=== PATIENT | male | born 1955 | race Caucasian/White ===

== ENCOUNTER → 2016-10-23 | Outpatient (CLI) | payer BC ==
[~2016-10-23] MED LIST: CEPH-571 PO; INSDGI SC; INSDGIPEN SC; INSU-698 SC; LCTX PO; METF-384 PO; MOME50SP5; MRLP17 PO; MRLP17X PO; NVLGI/PEN SQ; NVLGIPEN SC; OXYC-57 PO; SENN-65 PO; SULF800T23 PO
[2016-10-23 17:39] LABS: BASO % 0.2 %; BASO ABS # 0.02 K/uL (0-0.2); COMPLETE YES; EOS % 0.6 %; HEMATOCRIT 39.5 % (42-52); IG% 0.6 %; LYMPH % 11.4 %; LYMPH ABS # 1.17 K/uL (1.2-3.4); MEAN CELL VOLUME 81.3 fL (80-100); MEAN CORPUSCULAR HGB CONC 35.7 g/dl (32-36); MEAN PLATELET VOLUME 9.7 fL (7.4-10.4); MONO % 10.6 %; NEUT % 76.6 %; PLATELET COUNT 230 K/uL (130-400); RED BLOOD COUNT 4.86 M/uL (4.7-6.1); WHITE BLOOD COUNT 10.25 K/uL (4.8-10.8)
[2016-10-23 18:15] LABS: ALB/GLOB RATIO 0.6 (0.9-2); ALKALINE PHOSPHATASE 142 U/L (45-117); ALT/SGPT 14 U/L (12-78); AMYLASE 17 U/L (25-115); AST/SGOT 6 U/L (15-37); BLOOD UREA NITROGEN 18 mg/dl (7-18); BUN/CREATININE RATIO 14.1 (10-20); CALCIUM 9.8 mg/dl (8.5-10.1); CARBON DIOXIDE 23 mmol/L (21-32); CHLORIDE 98 mmol/L (98-107); GLUCOSE 495 mg/dl (70-99); POTASSIUM 4.8 mmol/L (3.5-5.1); SODIUM 133 mmol/L (136-145); THYROID STIMULATING HORMONE 0.771 uIu/ml (0.300-4.500)
[2016-10-23 18:42] LABS: BETA-HYDROXYBUTYRATE 28.43 mg/dL (0.2-2.81)
[2016-10-23 18:46] LABS: LYME DISEASE AB IGM NEG (NEG)
[2016-10-23 18:49] LABS: LYME DISEASE AB IGG NEG (NEG)
== END | disposition home or self-care (01) ==
LOC: C.LABBFT 17:46
PROVIDERS: ATTEND Physician Assistant Medical
DX: R10.9 Unspecified abdominal pain (principal)

== ENCOUNTER 2016-10-27 11:58 | Inpatient (IN) | payer BC ==
[~2016-10-27] VITALS: Ht 175.3 cm; Wt 122.6 kg
[~2016-10-27 11:58] MED LIST changes: -CEPH-571 PO; -INSDGI SC; -INSU-698 SC; -LCTX PO; -MRLP17X PO; -NVLGI/PEN SQ; -OXYC-57 PO; -SULF800T23 PO
[2016-10-27] MEDS ORDERED: MoRPHine SULFATE 4 MG/ML 1 ML CARP\\VIAL IV STA (12:17)
[2016-10-27] MEDS ORDERED: SODIUM CHLORIDE 0.9% 1000ML 1,000 ML IV STA (12:17)
[2016-10-27] MEDS ORDERED: ONDANSETRON INJ 2 MG/ML 2 ML VIAL IV STA (12:17)
[2016-10-27] MEDS ORDERED: OPTIRAY 320 IV PRN (12:30)
[2016-10-27 12:47] LABS: BASO % 0.5 %; BASO ABS # 0.05 K/uL (0-0.2); COMPLETE YES; EOS % 0.7 %; IG% 1.6 %; LYMPH % 15.4 %; LYMPH ABS # 1.54 K/uL (1.2-3.4); MEAN CELL VOLUME 80.9 fL (80-100); MEAN CORPUSCULAR HEMOGLOBIN 28.7 pg (25-34); MEAN CORPUSCULAR HGB CONC 35.5 g/dl (32-36); MEAN PLATELET VOLUME 8.5 fL (7.4-10.4); MONO % 8.7 %; NEUT % 73.1 %; PLATELET COUNT 247 K/uL (130-400); RED BLOOD COUNT 5.19 M/uL (4.7-6.1); WHITE BLOOD COUNT 10.03 K/uL (4.8-10.8)
[2016-10-27 13:09] LABS: ALB/GLOB RATIO 0.5 (0.9-2); CALCIUM 9.7 mg/dl (8.5-10.1); CREATININE 0.85 mg/dl (0.60-1.40); POTASSIUM 4.1 mmol/L (3.5-5.1)
[2016-10-27 13:20] LABS: BETA-HYDROXYBUTYRATE 29.09 mg/dL (0.2-2.81)
--- NOTE | 2016-10-27 13:58 | DIAGNOSTIC IMAGING REPORT ---
CT PELVIS W/IV CONT ONLY (CT) CT DOSE: 1121.76 mGy.cm CLINICAL HISTORY: Right perirectal edema, erythema, induration. TECHNIQUE: The patient was scanned in a dynamic helical fashion during intravenous administration of 94 cc of Optiray 320 A dose lowering technique was utilized adhering to the principles of ALARA. COMPARISON STUDY: 08/08/2015 FINDINGS: The inferior aspect of the kidneys are unremarkable appearance. Minimally prominent para-aortic lymph nodes remain stable. There is no acute diverticulitis. There is trace periappendiceal fluid, but no evidence of periappendiceal dilatation. No bladder abnormalities are visualized. There is infiltration of the fat involving the right gluteal fold. There are no fluid collections to indicate a drainable abscess. No fistulous tracts are visualized. IMPRESSION: 1. Infiltration of the fat involving the right gluteal fold. No direct CT evidence of a perirectal abscess or fistula. Electronically signed by: John Terry M.D. 10/27/2016 1:57 PM Dictated Date/Time: 10/27/2016 1:52 PM
[2016-10-27] MEDS ORDERED: CEFTRIAXONE SOD INJ 1 GM ADDVIAL IV STA (14:19)
[2016-10-27] MEDS ORDERED: INSULIN HUMAN REGULAR SC STA (15:18)
[2016-10-27] MEDS ORDERED: NovoLIN-R INSULIN PER UNIT CHARGE ONE (15:42)
[2016-10-27 16:25] VITALS: O2SAT 98; BMI 39.9
[2016-10-27] MEDS ORDERED: GLUCOSE 10 TABS/TUBE PO PRN (18:00)
[2016-10-27] MEDS ORDERED: DEXTROSE 50% 50 ML SYR IV PRN (18:00)
[2016-10-27] MEDS ORDERED: ACETAMINOPHEN 325 MG TAB PO PRN (18:00)
[2016-10-27] MEDS ORDERED: POLYETHYLENE (MIRALAX) 17 GM PACK PO PRN (18:00)
[2016-10-27] MEDS ORDERED: GLUCAGON FOR INJ 1 MG VIAL SQ PRN (18:00)
[2016-10-27] MEDS ORDERED: GLUCOSE 40% GEL 15 GM TUBE PO PRN (18:00)
--- NOTE | 2016-10-27 18:03 | History and Physical ---
History & Physical Date & Time of Service: Oct 27, 2016 at 17:59 Chief Complaint: Boil On Butt/ Drainage Primary Care Physician: Ravi Villalta M.D. History of Present Illness Source: patient This patient is a 60-year-old male with a history of diabetes mellitus type 2, acute pancreatitis, noncompliance with medications, who presents with progressively worsening right buttocks pain and general malaise. Over the last 2 days, the right buttocks pain has increased dramatically and he has noticed drainage coming from the area. He was placed on Levaquin as an outpatient for a few days with no improvement. He is afebrile, no evidence of sepsis, lactate was normal at 1.2. He had significant hyperglycemia in the ER with a sugar of 355. He was found to have a large area of developing right perirectal abscess with surrounding cellulitis that had failed outpatient treatment. 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) Immunizations History of Influenza Vaccine: No History of Tetanus Vaccine?: Unknown History of Pneumococcal: No History of Hepatitis B Vaccine: No Multi-Drug Resistant Organisms History of MDRO: No Allergies Coded Allergies: Penicillins (Verified Allergy, Unknown, PER PT, RXN="ARMS WENT UP IN THE AIR AND WOULDN'T COME DOWN", 10/27/16) Home Medications Scheduled Insulin Glargine (Lantus Solostar), 35 UNIT SC HS Metformin Hcl (Glucophage), 1,000 MG PO BID Scheduled PRN Insulin Aspart (Novolog Flexpen), 1 UNIT SC DIRECTED PRN for blood sugar Review of Systems Constitutional: + chills, + sweats, No fever Eyes: No problem reported ENT: No problem reported Respiratory: No shortness of breath Cardiovascular: No chest pain Abdomen: + problem reported (buttocks pain as per HPI), No pain, No nausea, No vomiting, No diarrhea, No GI bleeding Musculoskeletal: No problem reported Genitourinary - Male: No hematuria, No problem reported Neurologic: No problem reported Psychiatric: No problem reported Endocrine: No problem reported Hematologic / Lymphatic: No problem reported Integumentary: No problem reported Allergic / Immunologic: No problem reported Physical Exam Vital Signs Date Time Temp Pulse Resp B/P (MAP) Pulse Ox O2 Delivery O2 Flow Rate FiO2 10/27/16 16:25 98 Room Air 10/27/16 15:29 61 20 118/64 98 Room Air 10/27/16 14:10 66 20 134/70 98 Room Air 10/27/16 12:51 98 Room Air 10/27/16 12:01 36.9 82 18 137/77 96 Room Air General Appearance: no apparent distress, + obese Head: normocephalic, atraumatic Eyes: normal inspection, EOMI, sclerae normal ENT: hearing grossly normal, pharynx normal Neck: trachea midline Respiratory/Chest: lungs clear, normal breath sounds, no respiratory distress, no accessory muscle use Cardiovascular: regular rate, rhythm, no edema, no gallop, no murmur, normal peripheral pulses Abdomen/GI: normal bowel sounds, non tender, soft, no organomegaly (and morbidly obese), + pertinent finding (right medial buttocks with very large area of erythema, induration that extends down into perirectal region, with central fluctuence and purulent drainage centrally, entire area approximately 20 cm) Back: normal inspection Extremities/Musculoskelatal: normal inspection, no calf tenderness, no pedal edema Neurologic/Psych: alert, normal mood/affect, oriented x 3 Skin: warm/dry, + pertinent finding (buttocks as above) Diagnostics Laboratory Results Results Past 24 Hours Test 10/27/16 12:25 10/27/16 12:40 Range/Units White Blood Count 10.03 4.8-10.8 K/uL Red Blood Count 5.19 4.7-6.1 M/uL Hemoglobin 14.9 14.0-18.0 g/dL Hematocrit 42.0 42-52 % Mean Corpuscular Volume 80.9 80-100 fL Mean Corpuscular Hemoglobin 28.7 25-34 pg Mean Corpuscular Hemoglobin Concent 35.5 32-36 g/dl Platelet Count 247 130-400 K/uL Mean Platelet Volume 8.5 7.4-10.4 fL Neutrophils (%) (Auto) 73.1 % Lymphocytes (%) (Auto) 15.4 % Monocytes (%) (Auto) 8.7 % Eosinophils (%) (Auto) 0.7 % Basophils (%) (Auto) 0.5 % Neutrophils # (Auto) 7.34 1.4-6.5 K/uL Lymphocytes # (Auto) 1.54 1.2-3.4 K/uL Monocytes # (Auto) 0.87 0.11-0.59 K/uL Eosinophils # (Auto) 0.07 0-0.5 K/uL Basophils # (Auto) 0.05 0-0.2 K/uL RDW Standard Deviation 36.0 36.4-46.3 fL RDW Coefficient of Variation 12.2 11.5-14.5 % Immature Granulocyte % (Auto) 1.6 % Immature Granulocyte # (Auto) 0.16 0.00-0.02 K/uL Sodium Level 135 136-145 mmol/L Potassium Level 4.1 3.5-5.1 mmol/L Chloride Level 97 98-107 mmol/L Carbon Dioxide Level 27 21-32 mmol/L Anion Gap 11.0 3-11 mmol/L Blood Urea Nitrogen 14 7-18 mg/dl Creatinine 0.85 0.60-1.40 mg/dl Est Creatinine Clear Calc Drug Dose 119.6 ml/min Estimated GFR () 109.8 Estimated GFR (Non- 94.7 BUN/Creatinine Ratio 17.0 10-20 Random Glucose 355 70-99 mg/dl Calcium Level 9.7 8.5-10.1 mg/dl Total Bilirubin 0.5 0.2-1 mg/dl Aspartate Amino Transf (AST/SGOT) 8 15-37 U/L Alanine Aminotransferase (ALT/SGPT) 14 12-78 U/L Alkaline Phosphatase 147 45-117 U/L Total Protein 7.4 6.4-8.2 gm/dl Albumin 2.6 3.4-5.0 gm/dl Globulin 4.8 2.5-4.0 gm/dl Albumin/Globulin Ratio 0.5 0.9-2 Beta-Hydroxybutyric Acid 29.09 0.2-2.81 mg/dL Lactic Acid Level 1.2 0.4-2.0 mmol/L Microbiology Results 10/27/16 Blood Culture, Received Pending 10/27/16 Blood Culture, Received Pending 10/27/16 Gram Stain, Received Pending 10/27/16 Wound Culture, Received Pending Diagnostic Radiology CT PELVIS W/IV CONT ONLY (CT) CT DOSE: 1121.76 mGy.cm CLINICAL HISTORY: Right perirectal edema, erythema, induration. TECHNIQUE: The patient was scanned in a dynamic helical fashion during intravenous administration of 94 cc of Optiray 320 A dose lowering technique was utilized adhering to the principles of ALARA. COMPARISON STUDY: 08/08/2015 FINDINGS: The inferior aspect of the kidneys are unremarkable appearance. Minimally prominent para-aortic lymph nodes remain stable. There is no acute diverticulitis. There is trace periappendiceal fluid, but no evidence of periappendiceal dilatation. No bladder abnormalities are visualized. There is infiltration of the fat involving the right gluteal fold. There are no fluid collections to indicate a drainable abscess. No fistulous tracts are visualized. IMPRESSION: 1. Infiltration of the fat involving the right gluteal fold. No direct CT evidence of a perirectal abscess or fistula. Impression Assessment and Plan This patient is a 60-year-old male with a history of diabetes mellitus type 2, acute pancreatitis, noncompliance with medications, who presents with progressively worsening right buttocks pain and general malaise. Over the last 2 days, the right buttocks pain has increased dramatically and he has noticed drainage coming from the area. He was placed on Levaquin as an outpatient for a few days with no improvement. He is afebrile, no evidence of sepsis, lactate was normal at 1.2. He had significant hyperglycemia in the ER with a sugar of 355. He was found to have a large area of developing right perirectal abscess with surrounding cellulitis that had failed outpatient treatment. Right perirectal abscess and cellulitis-failed outpatient treatment. He is an uncontrolled diabetic at high risk for infection. -Started IV Rocephin and vancomycin for broad-spectrum coverage -Needs incision and drainage-I discussed the case with surgery Dr. Caruso on the phone who will perform procedure tomorrow -Nothing by mouth after midnight -Warm sitz baths 3 times a day -Morphine when necessary for pain control -Follow blood cultures and wound culture Diabetes mellitus type 2-with hyperglycemia. Admittedly noncompliant at home and states that his blood sugar is usually in the 300s to 400s. He does not like needles. -Diabetic education consultation placed-discussed the importance of controlling his blood sugars and he understands -Continue his home dose of Lantus 35 units daily -NovoLog sliding scale -Diabetic diet -Holding his metformin while inpatient Elevated alkaline phosphatase-has known fatty liver seen on CT scan in the past -Needs weight loss and diabetic control -Follow LFTs as an outpatient Prophylaxis-SCDs only given upcoming procedure Disposition-full code Level of Care Med/Surg Advanced Directives Existing Living Will: No Existing Power of Installer Molding And Trim: No Resuscitation Status FULL RESUSCITATION VTE Prophylaxis VTE Risk Assessment Done? Y/N: Yes Risk Level: Low Given or contraindicated: SCD's Additional Copies To Ravi Villalta M.D.
[2016-10-27] MEDS ORDERED: VANCOMYCIN INJ 1,000 MG in SODIUM CHLORIDE 0.9% 250ML 250 ML IV ONE (18:04)
[2016-10-27] MEDS ORDERED: VANCOMYCIN 1GM/270ML NSS ONE (18:21)
[2016-10-27 18:30] VITALS: BP 122/77; PULSE 71; TEMP 36.9; O2SAT 99
[2016-10-27] MEDS ORDERED: VANCOMYCIN CONSULT ACTIVE PRN (19:00)
[2016-10-27] MEDS ORDERED: VANCOMYCIN INJ 2,800 MG in SODIUM CHLORIDE 0.9% 500ML 500 ML IV ONE (19:30)
--- NOTE | 2016-10-27 20:00 | Surgery Consultation ---
Consultation Date of Consultation: Oct 27, 2016. Attending Physician: Shanika Carson MD Reason for Consultation: mendel-rectal abcess History of Present Illness pt with a 1 week hx of rectal pain worsening over 5-7 days. much worse today with some drainage. Past Medical/Surgical History Medical Problems: (1) Body Mass Index 40 And Over, Adult Status: Chronic (2) Diabetes Status: Chronic (3) Esophageal Reflux Status: Chronic (4) Hyperlipidemia Nec/Nos Status: Chronic (5) Hypertension Nos Status: Chronic (6) Obstructive Sleep Apnea (Adult) (Pediatric) Status: Chronic Social History Smoking Status: Former Smoker Drug Use: none Marital Status: Occupation Status: employed Allergies Coded Allergies: Penicillins (Verified Allergy, Unknown, PER PT, RXN="ARMS WENT UP IN THE AIR AND WOULDN'T COME DOWN", 10/27/16) Home Medications Scheduled Insulin Glargine (Lantus Solostar), 35 UNIT SC HS Metformin Hcl (Glucophage), 1,000 MG PO BID Scheduled PRN Insulin Aspart (Novolog Flexpen), 1 UNIT SC DIRECTED PRN for blood sugar Current Inpatient Medications Current Inpatient Medications Medications (Trade) Dose Ordered Sig/Nikhil Route Start Time Stop Time Status Last Admin Dose Admin Ioversol (Optiray 320) 125 ml UD PRN IV 10/27/16 12:30 10/31/16 12:29 Acetaminophen (Tylenol Tab) 650 mg Q4H PRN PO 10/27/16 18:00 11/26/16 17:59 Polyethylene (Miralax Powder Packet) 17 gm DAILY PRN PO 10/27/16 18:00 11/26/16 17:59 Insulin Glargine (Lantus Solostar Pen) 35 units QPM SC 10/27/16 21:00 11/26/16 20:59 Insulin Aspart (novoLOG ASPART) SLIDING SCALE If C... ACHS SC 10/27/16 21:00 11/26/16 20:59 Glucose (Glucose 40% Gel) 15-30 GRAMS 15 GRAMS... UD PRN PO 10/27/16 18:00 11/26/16 17:59 Glucose (Glucose Chew Tab) 4-8 Tablets 4 Tabl... UD PRN PO 10/27/16 18:00 11/26/16 17:59 Dextrose (Dextrose 50% 50ML Syringe) 25-50ML OF 50% DW IV FOR... UD PRN IV 10/27/16 18:00 11/26/16 17:59 Glucagon (Glucagon Inj) 1 mg UD PRN SQ 10/27/16 18:00 11/26/16 17:59 Morphine Sulfate (MoRPHine SULFATE INJ) 4 mg Q4H PRN IV 10/27/16 18:00 11/10/16 17:59 Sodium Chloride 1,000 ml @ 75 mls/hr [id number] IV 10/27/16 23:00 11/26/16 22:59 Ceftriaxone Sodium 1 gm/ Dextrose 50 ml @ 100 mls/hr Q24H IV 10/28/16 16:00 11/06/16 15:59 Vancomycin HCl (Consult) 1 ea UD PRN N/A 10/27/16 19:00 11/26/16 18:59 Vancomycin HCl 2800 mg/Sodium Chloride 556 ml @ 200 mls/hr NOW ONCE IV 10/27/16 19:30 10/27/16 22:16 10/27/16 19:18 200 MLS/HR Vancomycin HCl 1750 mg/Sodium Chloride 535 ml @ 200 mls/hr Q12H IV 10/28/16 06:00 11/06/16 17:59 Review of Systems Constitutional: + fever, + chills Abdomen: + problem reported (rectal pain/drainage) Physical Exam Date Time Temp Pulse Resp B/P (MAP) Pulse Ox O2 Delivery O2 Flow Rate FiO2 10/27/16 18:30 36.9 71 18 122/77 (92) 99 Room Air 10/27/16 18:28 148/94 10/27/16 16:25 98 Room Air 10/27/16 15:29 61 20 118/64 98 Room Air 10/27/16 14:10 66 20 134/70 98 Room Air 10/27/16 12:51 98 Room Air 10/27/16 12:01 36.9 82 18 137/77 96 Room Air General Appearance: no apparent distress Head: normocephalic, atraumatic Eyes: EOMI ENT: hearing grossly normal Neck: supple Respiratory/Chest: no respiratory distress, no accessory muscle use Abdomen/GI: non tender, soft, + pertinent finding (large area of induration on right buttock with blanching c/w developing abcess. very tender) Neurologic/Psych: alert, oriented x 3 Laboratory Results Last 24 Hours Test 10/27/16 12:25 10/27/16 12:40 White Blood Count 10.03 K/uL Red Blood Count 5.19 M/uL Hemoglobin 14.9 g/dL Hematocrit 42.0 % Mean Corpuscular Volume 80.9 fL Mean Corpuscular Hemoglobin 28.7 pg Mean Corpuscular Hemoglobin Concent 35.5 g/dl Platelet Count 247 K/uL Mean Platelet Volume 8.5 fL Neutrophils (%) (Auto) 73.1 % Lymphocytes (%) (Auto) 15.4 % Monocytes (%) (Auto) 8.7 % Eosinophils (%) (Auto) 0.7 % Basophils (%) (Auto) 0.5 % Neutrophils # (Auto) 7.34 K/uL Lymphocytes # (Auto) 1.54 K/uL Monocytes # (Auto) 0.87 K/uL Eosinophils # (Auto) 0.07 K/uL Basophils # (Auto) 0.05 K/uL RDW Standard Deviation 36.0 fL RDW Coefficient of Variation 12.2 % Immature Granulocyte % (Auto) 1.6 % Immature Granulocyte # (Auto) 0.16 K/uL Sodium Level 135 mmol/L Potassium Level 4.1 mmol/L Chloride Level 97 mmol/L Carbon Dioxide Level 27 mmol/L Anion Gap 11.0 mmol/L Blood Urea Nitrogen 14 mg/dl Creatinine 0.85 mg/dl Est Creatinine Clear Calc Drug Dose 119.6 ml/min Estimated GFR () 109.8 Estimated GFR (Non- 94.7 BUN/Creatinine Ratio 17.0 Random Glucose 355 mg/dl Calcium Level 9.7 mg/dl Total Bilirubin 0.5 mg/dl Aspartate Amino Transf (AST/SGOT) 8 U/L Alanine Aminotransferase (ALT/SGPT) 14 U/L Alkaline Phosphatase 147 U/L Total Protein 7.4 gm/dl Albumin 2.6 gm/dl Globulin 4.8 gm/dl Albumin/Globulin Ratio 0.5 Beta-Hydroxybutyric Acid 29.09 mg/dL Hepatitis C Antibody Screen NEG Lactic Acid Level 1.2 mmol/L Assessment & Plan large mendel-rectal abcess in uncontrolled diabetic. the actual fluid abcess is pretty early in the process. will plan I and D with sedation tomorrow. discussed risks continue IV antibiotics diabetic education
[2016-10-27] MEDS ORDERED: INSULIN ASPART 100 UNITS/ML 3 ML PEN SC SCH (21:00)
[2016-10-27] MEDS ORDERED: VANCOMYCIN INJ 1,000 MG in SODIUM CHLORIDE 0.9% 250ML 250 ML IV SCH (21:00)
--- NOTE | 2016-10-27 21:13 | Pharmacy Progress Note ---
Pharmacy Abx Initial Consult Date of Service Oct 27, 2016. Pharmacy Dosing Scope Date of Consult: 10/27/16 Consultation requested by: Dr. Carson Pharmacy is consulted to initiate Vancomycin IV dosing therapy in an obese patient (BMI greater than 35kg/m2, BMI= 40kg/m2) for cellulitis, order appropriate labs and adjust drug dose/frequency. Subjective The patient is a 60 year old male admitted on Oct 27, 2016 at 17:56. Objective Height (Feet): 5 Height (Inches): 9.00 Weight (Kilograms): 122.600 Vital Signs (Past 12Hrs) Vital Signs Past 12 Hours Date Time Temp Pulse Resp B/P (MAP) Pulse Ox O2 Delivery O2 Flow Rate FiO2 10/27/16 18:30 36.9 71 18 122/77 (92) 99 Room Air 10/27/16 18:28 148/94 10/27/16 16:25 98 Room Air 10/27/16 15:29 61 20 118/64 98 Room Air 10/27/16 14:10 66 20 134/70 98 Room Air 10/27/16 12:51 98 Room Air 10/27/16 12:01 36.9 82 18 137/77 96 Room Air Lab Results (24Hrs) Laboratory Tests (24 Hours) Test 10/27/16 12:25 10/27/16 12:40 White Blood Count 10.03 K/uL (4.8-10.8) Red Blood Count 5.19 M/uL (4.7-6.1) Hemoglobin 14.9 g/dL (14.0-18.0) Hematocrit 42.0 % (42-52) Mean Corpuscular Volume 80.9 fL (80-100) Mean Corpuscular Hemoglobin 28.7 pg (25-34) Mean Corpuscular Hemoglobin Concent 35.5 g/dl (32-36) Platelet Count 247 K/uL (130-400) Mean Platelet Volume 8.5 fL (7.4-10.4) Neutrophils (%) (Auto) 73.1 % Lymphocytes (%) (Auto) 15.4 % Monocytes (%) (Auto) 8.7 % Eosinophils (%) (Auto) 0.7 % Basophils (%) (Auto) 0.5 % Neutrophils # (Auto) 7.34 K/uL (1.4-6.5) H Lymphocytes # (Auto) 1.54 K/uL (1.2-3.4) Monocytes # (Auto) 0.87 K/uL (0.11-0.59) H Eosinophils # (Auto) 0.07 K/uL (0-0.5) Basophils # (Auto) 0.05 K/uL (0-0.2) Lactic Acid Level 1.2 mmol/L (0.4-2.0) Micro Results Date/Time Source Procedure Growth Status 10/27/16 12:35 Blood Blood Culture Pending Received 10/27/16 12:25 Blood Blood Culture Pending Received 10/27/16 15:15 Drainage - Surface Buttock Right Gram Stain Pending Received 10/27/16 15:15 Drainage - Surface Buttock Right Wound Culture Pending Received Assessment & Plan Assessment 60 year old obese (BMI greater than 35kg/m2, BMI= 40kg/m2) male with type II diabetes Plan Pharmacy has been consulted for treatment of cellulitis Vancomycin IV * Loading dose: 2800 mg (23 mg/kg) * Maintenance dose: 1750 mg IV (14 mg/kg) every 12 hours * Goal trough level for cellulitis : ~15 mcg/mL * Trough level ordered for 10/29/16 ~30 minutes before the 1800 dose * A less than traditional dose has been selected due to likelihood of drug accumulation in obese patient. Pharmacy will continue to follow and will adjust dose/frequency as necessary. Thank you.
--- NOTE | 2016-10-27 21:26 | EMERGENCY ROOM VISIT NOTE ---
History First contact with patient: 12:10 Chief Complaint: WOUND INFECTION Stated Complaint: PERIRECTAL ABSCESS Nursing Triage Summary: abcess on buttocks x1 week placed on abx on Friday, not getting better History of Present Illness The patient is a 60 year old male who presents to the Emergency Room via private vehicle accompanied by female with complaints of "boil on butt/drainage ". The patient states that approximately a week ago, he began with a raised region of the buttock that he describes as a boil. He states it is been worsening, and was seen by his family doctor Friday which prescribed Levaquin. He has been taking this as prescribed. He states that the pain is worsened as well as the swelling and drainage began 2 days ago. He denies any fevers, chills. His tetanus is up-to-date. He states that he has had trouble urinating over the past day. Review of Systems A complete 10-point Review of Systems was discussed with the patient, with pertinent positives and negatives listed in the History of Present Illness. All remaining Review of Systems questions can be considered negative unless otherwise specified. Past Medical/Surgical History Medical Problems: (1) Body Mass Index 40 And Over, Adult (2) Cellulitis (3) Diabetes (4) Diabetic ulcer of left foot (5) Diabetic ulcer of left foot (6) Esophageal Reflux (7) Hyperlipidemia Nec/Nos (8) Hypertension Nos (9) Obstructive Sleep Apnea (Adult) (Pediatric) (10) Perirectal abscess Surgical Problems: (1) Hx of cholecystectomy Family History Diabetes, cancer. Social History Smoking Status: Former Smoker Alcohol Use: other Drug Use: none Marital Status: Occupation Status: employed Patient is currently employed. Denies alcohol or tobacco use. Current/Historical Medications Scheduled Insulin Glargine (Lantus Solostar), 35 UNIT SC HS Metformin Hcl (Glucophage), 1,000 MG PO BID Scheduled PRN Insulin Aspart (Novolog Flexpen), 1 UNIT SC DIRECTED PRN for blood sugar Physical Exam Vital Signs Date Time Temp Pulse Resp B/P (MAP) Pulse Ox O2 Delivery O2 Flow Rate FiO2 10/27/16 16:25 98 Room Air 10/27/16 15:29 61 20 118/64 98 Room Air 10/27/16 14:10 66 20 134/70 98 Room Air 10/27/16 12:51 98 Room Air 10/27/16 12:01 36.9 82 18 137/77 96 Room Air Pain Rating (0-10): 3.0 Physical Exam VITAL SIGNS - Vital signs and nursing notes were reviewed. Patient is afebrile , blood pressure 137/77, non-tachycardic and is saturating well on room air at 96%. GENERAL -60-year-old male appearing his stated age who is in no acute distress. Communicates well with provider and answers questions appropriately. SKIN - overlying the right gluteal fold close to the rectum, there is a large erythematous, indurated and tender region with slight purulent drainage. No evidence of fluctuant drainable abscess. HEAD - NC/AT. EYES - Sclera anicteric. Palpebral conjunctiva pink and moist with no injection noted. LUNGS - Chest wall symmetric without accessory muscle use, intercostals retractions, or central cyanosis. Normal vesicular breath sounds CTA B/L. No wheezes, rales, or rhonchi appreciated. CARDIAC - RRR with S1/S2. No murmur, rubs, or gallops appreciated. Medical Decision & Procedures ER Provider Diagnostic Interpretation: CT PELVIS W/IV CONT ONLY (CT) CT DOSE: 1121.76 mGy.cm CLINICAL HISTORY: Right perirectal edema, erythema, induration. TECHNIQUE: The patient was scanned in a dynamic helical fashion during intravenous administration of 94 cc of Optiray 320 A dose lowering technique was utilized adhering to the principles of ALARA. COMPARISON STUDY: 08/08/2015 FINDINGS: The inferior aspect of the kidneys are unremarkable appearance. Minimally prominent para-aortic lymph nodes remain stable. There is no acute diverticulitis. There is trace periappendiceal fluid, but no evidence of periappendiceal dilatation. No bladder abnormalities are visualized. There is infiltration of the fat involving the right gluteal fold. There are no fluid collections to indicate a drainable abscess. No fistulous tracts are visualized. IMPRESSION: 1. Infiltration of the fat involving the right gluteal fold. No direct CT evidence of a perirectal abscess or fistula. Electronically signed by: John Terry M.D. 10/27/2016 1:57 PM Dictated Date/Time: 10/27/2016 1:52 PM Laboratory Results 10/27/16 12:25 Red Blood Count 5.19, Mean Corpuscular Volume 80.9, Mean Corpuscular Hemoglobin 28.7, Mean Corpuscular Hemoglobin Concent 35.5, Mean Platelet Volume 8.5, Neutrophils (%) (Auto) 73.1, Lymphocytes (%) (Auto) 15.4, Monocytes (%) (Auto) 8.7, Eosinophils (%) (Auto) 0.7, Basophils (%) (Auto) 0.5, Neutrophils # (Auto) 7.34, Lymphocytes # (Auto) 1.54, Monocytes # (Auto) 0.87, Eosinophils # (Auto) 0.07, Basophils # (Auto) 0.05 10/27/16 12:25 Test 10/27/16 12:25 10/27/16 12:40 White Blood Count 10.03 K/uL (4.8-10.8) Red Blood Count 5.19 M/uL (4.7-6.1) Hemoglobin 14.9 g/dL (14.0-18.0) Hematocrit 42.0 % (42-52) Mean Corpuscular Volume 80.9 fL (80-100) Mean Corpuscular Hemoglobin 28.7 pg (25-34) Mean Corpuscular Hemoglobin Concent 35.5 g/dl (32-36) Platelet Count 247 K/uL (130-400) Mean Platelet Volume 8.5 fL (7.4-10.4) Neutrophils (%) (Auto) 73.1 % Lymphocytes (%) (Auto) 15.4 % Monocytes (%) (Auto) 8.7 % Eosinophils (%) (Auto) 0.7 % Basophils (%) (Auto) 0.5 % Neutrophils # (Auto) 7.34 K/uL (1.4-6.5) Lymphocytes # (Auto) 1.54 K/uL (1.2-3.4) Monocytes # (Auto) 0.87 K/uL (0.11-0.59) Eosinophils # (Auto) 0.07 K/uL (0-0.5) Basophils # (Auto) 0.05 K/uL (0-0.2) RDW Standard Deviation 36.0 fL (36.4-46.3) RDW Coefficient of Variation 12.2 % (11.5-14.5) Immature Granulocyte % (Auto) 1.6 % Immature Granulocyte # (Auto) 0.16 K/uL (0.00-0.02) Anion Gap 11.0 mmol/L (3-11) Est Creatinine Clear Calc Drug Dose 119.6 ml/min Estimated GFR () 109.8 Estimated GFR (Non- 94.7 BUN/Creatinine Ratio 17.0 (10-20) Calcium Level 9.7 mg/dl (8.5-10.1) Total Bilirubin 0.5 mg/dl (0.2-1) Aspartate Amino Transf (AST/SGOT) 8 U/L (15-37) Alanine Aminotransferase (ALT/SGPT) 14 U/L (12-78) Alkaline Phosphatase 147 U/L (45-117) Total Protein 7.4 gm/dl (6.4-8.2) Albumin 2.6 gm/dl (3.4-5.0) Globulin 4.8 gm/dl (2.5-4.0) Albumin/Globulin Ratio 0.5 (0.9-2) Beta-Hydroxybutyric Acid 29.09 mg/dL (0.2-2.81) Hepatitis C Antibody Screen NEG (NEG) Lactic Acid Level 1.2 mmol/L (0.4-2.0) Medications Administered Medications (Trade) Dose Ordered Sig/Nikhil Route Start Time Stop Time Status Last Admin Dose Admin Sodium Chloride 1,000 ml @ 999 mls/hr Q1H1M STAT IV 10/27/16 12:17 10/27/16 13:17 DC 10/27/16 12:48 999 MLS/HR Morphine Sulfate (MoRPHine SULFATE INJ) 4 mg NOW STAT IV 10/27/16 12:17 10/27/16 12:21 DC 10/27/16 12:48 4 MG Ondansetron HCl (Zofran Inj) 4 mg NOW STAT IV 10/27/16 12:17 10/27/16 12:21 DC 10/27/16 12:47 4 MG Ceftriaxone Sodium (Rocephin Inj) 1 gm NOW STAT IV 10/27/16 14:19 10/27/16 14:20 DC 10/27/16 15:29 1 GM Insulin Human Regular (novoLIN-R) 5 units ACHS STAT SC 10/27/16 15:18 10/27/16 15:19 DC 10/27/16 15:45 5 UNITS Medical Decision Patient was seen and evaluated as above. After obtaining a thorough history and physical examination IV access was initiated, and the above workup was performed. Culture was obtained of the drainage. Blood cultures were also obtained. CBC reveals no leukocytosis, or anemia. CMP reveals sodium low at 135, chloride low at 97, random glucose high at 355, lactic acid level I.2. AST low at 8, alkaline phosphatase 147. Beta hydroxybutyric acid elevated at 29.09. Elevated alkaline phosphatase appears to be chronic. On physical examination he appears to have a perirectal abscess/cellulitis. CT scan was obtained with results as above. No direct CT evidence of abscess. I believe that secondary to the patient failing outpatient antibiotics, have worsening infection, and location as well as being a poorly controlled diabetic do believe that inpatient admission is warranted. He was given 4 mg of Zofran, and morphine for his pain. He was given 1 g or Rocephin and tolerated well. He 'll be admitted for further evaluation and management. I discussed the case with my attending, and subsequently the hospitalist. He was given 5 units of insulin secondary to his elevated number. Please refer to further dictation regarding his stay. In evaluation treatment this patient following differential diagnosis were entertained: Sialitis, abscess, sepsis, among others. Impression Primary Impression: Perirectal abscess Departure Information Dispostion Admitted as an inpatient Condition FAIR Referrals Ravi Villalta M.D. (PCP) Forms WORK / SCHOOL INSTRUCTIONS, HOME CARE DOCUMENTATION FORM, IMPORTANT VISIT INFORMATION Patient Instructions My [facility]
[2016-10-27] MEDS: INSULIN GLARGINE SOLOSTAR 100 UNITS/ML 3 ML PEN SC SCH (21:40)
[2016-10-27] MEDS: MoRPHine SULFATE 4 MG/ML 1 ML CARP\\VIAL IV PRN (21:44)
[2016-10-27] MEDS: SODIUM CHLORIDE 0.45% 1000ML 1,000 ML IV SCH (21:47)
[2016-10-28] VITALS (11 sets, daily range): BP systolic 118–154; BP diastolic 68–82; PULSE 55–76; TEMP 36.5–37.4; O2SAT 94–99
[2016-10-28] MEDS ORDERED: NURSING VERBAL MED ORDER ONE ×2 (00:30→10:30)
[2016-10-28] MEDS: INSULIN ASPART 100 UNITS/ML 3 ML PEN SC SCH ×5 (01:00→20:46)
[2016-10-28] MEDS: VANCOMYCIN INJ 1,750 MG in SODIUM CHLORIDE 0.9% 500ML 500 ML IV SCH ×2 (05:28→17:52)
[2016-10-28 05:46] LABS: BASO % 0.4 %; BASO ABS # 0.03 K/uL (0-0.2); COMPLETE YES; EOS % 1.7 %; HEMATOCRIT 41.3 % (42-52); IG% 1.8 %; LYMPH ABS # 1.89 K/uL (1.2-3.4); MEAN CELL VOLUME 80.7 fL (80-100); MEAN CORPUSCULAR HEMOGLOBIN 27.7 pg (25-34); MEAN CORPUSCULAR HGB CONC 34.4 g/dl (32-36); MEAN PLATELET VOLUME 8.1 fL (7.4-10.4); MONO % 8.8 %; NEUT % 64.3 %; PLATELET COUNT 231 K/uL (130-400); RED BLOOD COUNT 5.12 M/uL (4.7-6.1); WHITE BLOOD COUNT 8.22 K/uL (4.8-10.8)
[2016-10-28 06:21] LABS: BUN/CREATININE RATIO 13.2 (10-20); CREATININE 0.75 mg/dl (0.60-1.40); MAGNESIUM 1.9 mg/dl (1.8-2.4); POTASSIUM 3.5 mmol/L (3.5-5.1)
[2016-10-28] MEDS: MoRPHine SULFATE 4 MG/ML 1 ML CARP\\VIAL IV PRN (07:13)
[2016-10-28 07:17] LABS: ESTIMATED AVERAGE GLUCOSE 390 mg/dl; HA1C FLAG Normal (Normal)
[2016-10-28] MEDS ORDERED: PROPOFOL IV EMULSION 10 MG/ML 20 ML VIAL IV ONE (09:07)
[2016-10-28] MEDS ORDERED: ONDANSETRON INJ 2 MG/ML 2 ML VIAL ONE (09:07)
[2016-10-28] MEDS ORDERED: LIDOCAINE HCL 2% 2 ML VIAL (20MG/ML) ONE (09:07)
[2016-10-28] MEDS ORDERED: MIDAZOLAM HCL 1 MG/ML 2ML VIAL ONE (09:08)
[2016-10-28] MEDS ORDERED: KETAMINE HCL INJ 50 MG/ML 10 ML VIAL ONE (09:08)
[2016-10-28] MEDS ORDERED: FENTANYL CITRATE INJ 50 MCG/1 ML 2 ML VIAL ONE (09:08)
[2016-10-28] MEDS ORDERED: GELATIN SPONGE SZ 100 ONE (09:09)
[2016-10-28] MEDS ORDERED: BUPIVACAINE/EPINEPHRINE 0.5% MPF 1:200,000 10 ML VIAL ONE (09:09)
--- NOTE | 2016-10-28 09:13 | History & Physical Bridge Note ---
H&P Re-Evaluation Bridge Note: I have examined the patient, reviewed the History & Physical and in the interval since the performance of the History & Physical I have noted the following changes of clinical significance: No changes noted
[2016-10-28] MEDS ORDERED: EpHEDrine SULFATE INJ 50 MG/ML AMP IV PRN (09:30)
[2016-10-28] MEDS ORDERED: ATROPINE SULFATE 0.1 MG/ML 5ML SYR IV PRN (09:30)
[2016-10-28] MEDS ORDERED: ONDANSETRON INJ 2 MG/ML 2 ML VIAL IV PRN (09:30)
[2016-10-28] MEDS ORDERED: FENTANYL CITRATE INJ 50 MCG/1 ML 2 ML VIAL IV PRN (09:30)
[2016-10-28] MEDS ORDERED: GLYCOPYRROLATE INJ 0.2 MG/ML VIAL ONE (09:57)
--- NOTE | 2016-10-28 10:07 | [facility] Operative Report ---
Operative Report Operative Date Oct 28, 2016. Pre-Operative Diagnosis mendel-rectal abcess Post-Operative Diagnosis same Procedure(s) Performed incision and drainage of abcess Surgeon clayton Wall Steamer Surgeon(s) TIM Chi Findings large abcess cavity with purulent fluid Specimens fluid for gram stain/cx Anesthesia mac Complication(s) None Disposition Recovery Room / PACU Description of Procedure After informed consent was obtained the patient was taken the operating suite placed in supine position. IV sedation was administered by anesthesia and titrated to effect. After adequate sedation the patient was placed into yellowfin stirrups and placed in the high lithotomy position. The perineum and rectal area was sterilely prepped and draped in usual fashion. A 15 blade scalpel was then used to make a vertical incision directly over the large palpable abscess. We immediately got patel purulent fluid which we sent some for Gram stain culture and sensitivity. I used finger fractionation to explore the entire cavity which is rather large. We did irrigated with saline and used half-inch plain packing. Sterile gauze was applied and the patient was then placed back in the supine position and awakened and transferred recovery in stable condition I attest to the content of the Intraoperative Record and any orders documented therein. Any exceptions are noted below.
--- NOTE | 2016-10-28 10:24 | Anesthesiology Progress Note ---
Anesthesia Post Op Note Date & Time Oct 28, 2016 at 10:23 Vital Signs Pain Intensity: 0 Vital Signs Past 12 Hours Date Time Temp Pulse Resp B/P (MAP) Pulse Ox O2 Delivery O2 Flow Rate FiO2 10/28/16 10:20 36.6 54 15 126/78 100 Mask 10 10/28/16 10:00 36.7 59 16 126/78 100 Mask 10 10/28/16 07:19 36.9 58 17 154/69 (97) 99 Room Air 10/28/16 07:10 Room Air 10/28/16 00:00 37.4 63 16 132/68 (89) 97 Room Air 10/28/16 00:00 Room Air Notes Mental Status: alert / awake / arousable, participated in evaluation Pt Amnestic to Procedure: Yes Nausea / Vomiting: adequately controlled Pain: adequately controlled Airway Patency, RR, SpO2: stable & adequate BP & HR: stable & adequate Hydration State: stable & adequate Anesthetic Complications: no major complications apparent
--- NOTE | 2016-10-28 11:51 | Hospitalist Progress Note ---
Hospitalist Progress Note Date of Service Oct 28, 2016. (Joya Cat ., PA-C) Subjective Pt evaluation today including: conversation w/ patient, conversation w/ family ( and daughter- at bedside ), physical exam, chart review, lab review, review of studies, review of inpatient medication list Voiding: no voiding problems, no incontinence Patient states he is feeling well. I&D by Dr. Caruso this AM. Daughter is to learn how to do dressing changes prior to discharge. Pain is well controlled. Discussed diabetic control. Admits to not taking any of his medication. Discussed importance to patient and family- all are in understanding- all questions/concerns answered. Patient denies any fever, chills, sweats, lightheadedness, dizziness, vision changes, CP, palpitations, edema, SOB, wheezing, cough, abdominal pain, nausea, vomiting, diarrhea, urinary symptoms, melena, numbness/tingling, weakness, muscle/joint pain, anxiety/depression, active bleeding, or new skin discoloration/changes. (Joya Cat ., PA-C) Medications Current Inpatient Medications Medications (Trade) Dose Ordered Sig/Nikhil Route Start Time Stop Time Status Last Admin Dose Admin Ioversol (Optiray 320) 125 ml UD PRN IV 10/27/16 12:30 10/31/16 12:29 Acetaminophen (Tylenol Tab) 650 mg Q4H PRN PO 10/27/16 18:00 11/26/16 17:59 Polyethylene (Miralax Powder Packet) 17 gm DAILY PRN PO 10/27/16 18:00 11/26/16 17:59 Insulin Glargine (Lantus Solostar Pen) 35 units QPM SC 10/27/16 21:00 11/26/16 20:59 10/27/16 21:40 35 UNITS Glucose (Glucose 40% Gel) 15-30 GRAMS 15 GRAMS... UD PRN PO 10/27/16 18:00 11/26/16 17:59 Glucose (Glucose Chew Tab) 4-8 Tablets 4 Tabl... UD PRN PO 10/27/16 18:00 11/26/16 17:59 Dextrose (Dextrose 50% 50ML Syringe) 25-50ML OF 50% DW IV FOR... UD PRN IV 10/27/16 18:00 11/26/16 17:59 Glucagon (Glucagon Inj) 1 mg UD PRN SQ 10/27/16 18:00 11/26/16 17:59 Morphine Sulfate (MoRPHine SULFATE INJ) 4 mg Q4H PRN IV 10/27/16 18:00 11/10/16 17:59 10/28/16 07:13 4 MG Sodium Chloride 1,000 ml @ 75 mls/hr [id number] IV 10/27/16 23:00 11/26/16 22:59 10/27/16 21:47 75 MLS/HR Ceftriaxone Sodium 1 gm/ Dextrose 50 ml @ 100 mls/hr Q24H IV 10/28/16 16:00 11/06/16 15:59 Vancomycin HCl (Consult) 1 ea UD PRN N/A 10/27/16 19:00 11/26/16 18:59 Vancomycin HCl 1750 mg/Sodium Chloride 535 ml @ 200 mls/hr Q12H IV 10/28/16 06:00 11/06/16 17:59 10/28/16 05:28 200 MLS/HR Fentanyl Citrate (Fentanyl Inj) 25 mcg Q5M PRN IV 10/28/16 09:30 10/28/16 14:30 Ondansetron HCl (Zofran Inj) 4 mg ONE PRN IV 10/28/16 09:30 10/28/16 14:30 Ephedrine Sulfate (EpHEDrine SULFATE INJ) 5 mg Q5M PRN IV 10/28/16 09:30 10/28/16 14:30 Atropine Sulfate (Atropine Sulfate 0.1MG/Ml Inj) 0.5 mg Q1M PRN IV 10/28/16 09:30 10/28/16 14:30 Acetaminophen/ Hydrocodone Bitart ([place] 5/325 Tab) 1 tab Q4H PRN PO 10/28/16 09:45 11/11/16 09:44 Insulin Aspart (novoLOG ASPART) SLIDING SCALE If C... ACHS SC 10/28/16 12:00 11/27/16 11:59 (Joya Cat, MACKENZIE) Objective Vital Signs Date Time Temp Pulse Resp B/P (MAP) Pulse Ox O2 Delivery O2 Flow Rate FiO2 10/28/16 07:19 36.9 58 17 154/69 (97) 99 Room Air 10/28/16 07:10 Room Air 10/28/16 00:00 37.4 63 16 132/68 (89) 97 Room Air 10/28/16 00:00 Room Air 10/27/16 18:30 36.9 71 18 122/77 (92) 99 Room Air 10/27/16 18:28 148/94 10/27/16 16:25 98 Room Air 10/27/16 15:29 61 20 118/64 98 Room Air 10/27/16 14:10 66 20 134/70 98 Room Air 10/27/16 12:51 98 Room Air 10/27/16 12:01 36.9 82 18 137/77 96 Room Air (Joya Cat, PA-C) Physical Exam General Appearance: no apparent distress, + obese Eyes: normal inspection, PERRL ENT: hearing grossly normal Neck: supple Respiratory/Chest: lungs clear, no respiratory distress, no accessory muscle use Cardiovascular: regular rate, rhythm Abdomen: normal bowel sounds, non tender, soft Extremities: no pedal edema, no calf tenderness Neurologic/Psychiatric: alert, normal mood/affect, oriented x 3 Skin: normal color, warm/dry, no rash (Joya Cat ., PA-C) Laboratory Results Last 24 Hours Test 10/27/16 12:25 10/27/16 12:40 10/27/16 21:04 10/28/16 05:32 White Blood Count 10.03 K/uL 8.22 K/uL Red Blood Count 5.19 M/uL 5.12 M/uL Hemoglobin 14.9 g/dL 14.2 g/dL Hematocrit 42.0 % 41.3 % Mean Corpuscular Volume 80.9 fL 80.7 fL Mean Corpuscular Hemoglobin 28.7 pg 27.7 pg Mean Corpuscular Hemoglobin Concent 35.5 g/dl 34.4 g/dl Platelet Count 247 K/uL 231 K/uL Mean Platelet Volume 8.5 fL 8.1 fL Neutrophils (%) (Auto) 73.1 % 64.3 % Lymphocytes (%) (Auto) 15.4 % 23.0 % Monocytes (%) (Auto) 8.7 % 8.8 % Eosinophils (%) (Auto) 0.7 % 1.7 % Basophils (%) (Auto) 0.5 % 0.4 % Neutrophils # (Auto) 7.34 K/uL 5.29 K/uL Lymphocytes # (Auto) 1.54 K/uL 1.89 K/uL Monocytes # (Auto) 0.87 K/uL 0.72 K/uL Eosinophils # (Auto) 0.07 K/uL 0.14 K/uL Basophils # (Auto) 0.05 K/uL 0.03 K/uL RDW Standard Deviation 36.0 fL 35.4 fL RDW Coefficient of Variation 12.2 % 12.1 % Immature Granulocyte % (Auto) 1.6 % 1.8 % Immature Granulocyte # (Auto) 0.16 K/uL 0.15 K/uL Sodium Level 135 mmol/L 138 mmol/L Potassium Level 4.1 mmol/L 3.5 mmol/L Chloride Level 97 mmol/L 102 mmol/L Carbon Dioxide Level 27 mmol/L 29 mmol/L Anion Gap 11.0 mmol/L 7.0 mmol/L Blood Urea Nitrogen 14 mg/dl 10 mg/dl Creatinine 0.85 mg/dl 0.75 mg/dl Est Creatinine Clear Calc Drug Dose 119.6 ml/min 135.5 ml/min Estimated GFR () 109.8 115.6 Estimated GFR (Non- 94.7 99.7 BUN/Creatinine Ratio 17.0 13.2 Random Glucose 355 mg/dl 195 mg/dl Calcium Level 9.7 mg/dl 9.0 mg/dl Total Bilirubin 0.5 mg/dl Aspartate Amino Transf (AST/SGOT) 8 U/L Alanine Aminotransferase (ALT/SGPT) 14 U/L Alkaline Phosphatase 147 U/L Total Protein 7.4 gm/dl Albumin 2.6 gm/dl Globulin 4.8 gm/dl Albumin/Globulin Ratio 0.5 Beta-Hydroxybutyric Acid 29.09 mg/dL Hepatitis C Antibody Screen NEG Lactic Acid Level 1.2 mmol/L Bedside Glucose 272 mg/dl Estimated Average Glucose 390 mg/dl Hemoglobin A1c 15.2 % Magnesium Level 1.9 mg/dl (Joya Cat PA-C) Assessment and Plan This patient is a 60-year-old male with a history of diabetes mellitus type 2, acute pancreatitis, noncompliance with medications, who presents with progressively worsening right buttocks pain and general malaise. Over the last 2 days, the right buttocks pain has increased dramatically and he has noticed drainage coming from the area. He was placed on Levaquin as an outpatient for a few days with no improvement. He is afebrile, no evidence of sepsis, lactate was normal at 1.2. He had significant hyperglycemia in the ER with a sugar of 355. He was found to have a large area of developing right perirectal abscess with surrounding cellulitis that had failed outpatient treatment. Right perirectal abscess and cellulitis- failed outpatient treatment w/ Levaquin : - Admitted to med/surg - Started IV Rocephin and Vancomycin on 10/27 - WCx- group B beta strep- pending final cultures - BCx- gram positive cocci x1- pending final cultures; repeat BCx tomorrow - Warm sitz baths TID - Morphine 4 mg q4 hrs PRN for pain control - Consulted general surgery, appreciate recommendations -- I&D on 10/28 T2DM- UNCONTROLLED due to medication noncompliance- ha1c= 15.2%: - Diabetic education consultation placed - Metformin 1000 mg BID held - Continue Lantus 35 units daily - BSG ACHS w/ sliding insulin scale - Diabetic diet Elevated alkaline phosphatase- has known fatty liver seen on CT scan in the past : - Encouraged weight loss and diabetic control - Follow LFTs as an outpatient DVT Prophylaxis: Mechanical; chemical means held due planned I&D- begin as per surgical recommendations Code Status: LEVEL I, FULL Dispo: From home, lives w/ and daughter- social media editor consulted (Joya Cat ., PARichardC) Attending Attestation: Pt seen/examined, chart reviewed, care plan d/w ROXY Cat. I agree w/ the guevara components of her documentation. Pt feels better but still "sore" in perirectal area. Admits to noncompliance with DM and is ready to make changes. VSS no fever gen - nad skin - buttocks -resolving cellulitis right buttock; 1.5-2cm linear incision perirectal area on right; mild serosanguinous drainage; no odor A/P: 1. right perirectal abscess s/p ID with associated cellulitis - IV abx, follow cx's 2. possible bacteremia 2nd to #1 - await identification of organisms in blood; repeat blood cx's in AM 3. T2DM - increase carb ratio and correction; cont lantus, adjust as needed Johann Leiva MD (Johann Leiva MD)
[2016-10-28] MEDS: SODIUM CHLORIDE 0.45% 1000ML 1,000 ML IV SCH (11:54)
[2016-10-28] MEDS: CEFTRIAXONE SOD INJ 1 GM in DEXTROSE 5% ADD-VANTAGE 50ML 50 ML IV SCH (15:53)
[2016-10-28] MEDS: HYDROCODONE/ACETAMOPHEN 5/325MG TAB PO PRN ×2 (15:54→21:49)
[2016-10-28] MEDS: INSULIN GLARGINE SOLOSTAR 100 UNITS/ML 3 ML PEN SC SCH (20:46)
[2016-10-29] MEDS: SODIUM CHLORIDE 0.45% 1000ML 1,000 ML IV SCH ×2 (01:28→14:24)
[2016-10-29 03:07] VITALS: BP 137/77; PULSE 65; TEMP 36.6; O2SAT 99
[2016-10-29] MEDS: VANCOMYCIN INJ 1,750 MG in SODIUM CHLORIDE 0.9% 500ML 500 ML IV SCH ×2 (05:36→17:49)
[2016-10-29 06:18] LABS: HEMATOCRIT 37.9 % (42-52); MEAN CELL VOLUME 80.6 fL (80-100); MEAN CORPUSCULAR HEMOGLOBIN 28.1 pg (25-34); MEAN CORPUSCULAR HGB CONC 34.8 g/dl (32-36); PLATELET COUNT 202 K/uL (130-400); WHITE BLOOD COUNT 6.07 K/uL (4.8-10.8)
[2016-10-29 06:48] LABS: CREATININE 0.72 mg/dl (0.60-1.40)
[2016-10-29 07:00] VITALS: BP 131/80; PULSE 54; TEMP 37.3; O2SAT 97
[2016-10-29] MEDS: HYDROCODONE/ACETAMOPHEN 5/325MG TAB PO PRN ×2 (08:03→15:46)
--- NOTE | 2016-10-29 08:27 | Hospitalist Progress Note ---
Hospitalist Progress Note Date of Service Oct 29, 2016. (Shantal Espinoza PA-C) Subjective Pt evaluation today including: conversation w/ patient, physical exam, chart review, lab review, review of studies Pain: None PO Intake: Good Voiding: no voiding problems The patient was seen and examined this morning. Pt reports doing well today, his dressing was changed this morning which nursing reports had large amount of purulent material. He denies any fevers, sweats or chills. He is tolerating a diet without issues. Pt reports has not had a bowel movement since Friday, he normally has a BM every 4-5 days. Pt has used stool softeners but nothing else to help with bowels. He is passing gas. Pt is hopeful to be discharged soon. Constitutional: No fever, No chills, No sweats, No fatigue Eyes: No discharge, No diplopia ENT: No nasal symptoms, No sore throat Respiratory: No cough, No shortness of breath Cardiovascular: No chest pain, No palpitations Abdomen: No pain, No nausea, No vomiting, No diarrhea, No constipation Musculoskeletal: No joint pain, No muscle pain, No swelling Male : No dysuria Neurologic: No weakness, No numbness/tingling Endo: No fatigue Skin: No rash, No itch (Shantal Espinoza PA-C) Objective Vital Signs Date Time Temp Pulse Resp B/P (MAP) Pulse Ox O2 Delivery O2 Flow Rate FiO2 10/29/16 08:00 Room Air 10/29/16 07:00 37.3 54 16 131/80 (97) 97 Room Air 10/29/16 03:07 36.6 65 16 137/77 (97) 99 Room Air 10/28/16 23:30 Room Air 10/28/16 23:11 37.3 63 14 118/72 (87) 96 Room Air 10/28/16 20:00 37.2 59 16 118/69 (85) 98 Room Air 10/28/16 15:43 Room Air 10/28/16 15:09 36.7 57 16 138/76 (96) 94 Room Air 10/28/16 13:54 36.7 72 18 129/69 (89) 98 Room Air 10/28/16 12:30 76 18 120/76 (91) 10/28/16 11:56 36.5 66 17 131/82 (98) 96 Room Air 10/28/16 11:12 36.5 57 18 123/77 (92) 98 Room Air 10/28/16 10:36 36.6 55 14 129/82 (98) 99 Room Air 10/28/16 10:35 99 Room Air 10/28/16 10:30 52 12 133/75 97 Room Air 10/28/16 10:20 36.6 54 15 118/78 96 Room Air 10/28/16 10:10 54 12 148/83 100 Mask 10 10/28/16 10:00 36.7 59 16 126/78 100 Mask 10 (Shantal Espinoza PA-C) Physical Exam General Appearance: WD/WN, no apparent distress, + obese Eyes: PERRL, EOMI ENT: hearing grossly normal, pharynx normal Neck: supple, thyroid normal Respiratory/Chest: lungs clear, normal breath sounds, no respiratory distress, no accessory muscle use Cardiovascular: regular rate, rhythm, no edema, no murmur Abdomen: normal bowel sounds, non tender, soft Extremities: normal inspection, no pedal edema, no calf tenderness Neurologic/Psychiatric: alert, normal mood/affect, oriented x 3 Skin: normal color, warm/dry (Shantal Espinoza PA-C) Laboratory Results Last 24 Hours Test 10/28/16 10:09 10/28/16 11:55 10/28/16 17:11 10/28/16 20:41 Bedside Glucose 157 mg/dl 269 mg/dl 231 mg/dl 243 mg/dl Test 10/29/16 05:54 10/29/16 08:07 White Blood Count 6.07 K/uL Red Blood Count 4.70 M/uL Hemoglobin 13.2 g/dL Hematocrit 37.9 % Mean Corpuscular Volume 80.6 fL Mean Corpuscular Hemoglobin 28.1 pg Mean Corpuscular Hemoglobin Concent 34.8 g/dl RDW Standard Deviation 35.4 fL RDW Coefficient of Variation 12.1 % Platelet Count 202 K/uL Mean Platelet Volume 8.0 fL Creatinine 0.72 mg/dl Est Creatinine Clear Calc Drug Dose 141.1 ml/min Estimated GFR () 117.5 Estimated GFR (Non- 101.4 Bedside Glucose 150 mg/dl (Shantal Espinoza PA-C) Assessment and Plan This patient is a 60-year-old male with a history of diabetes mellitus type 2, acute pancreatitis, noncompliance with medications, who presents with progressively worsening right buttocks pain and general malaise. Over the last 2 days, the right buttocks pain has increased dramatically and he has noticed drainage coming from the area. He was placed on Levaquin as an outpatient for a few days with no improvement. He is afebrile, no evidence of sepsis, lactate was normal at 1.2. He had significant hyperglycemia in the ER with a sugar of 355. He was found to have a large area of developing right perirectal abscess with surrounding cellulitis that had failed outpatient treatment. Right perirectal abscess and cellulitis- failed outpatient treatment w/ Levaquin : - Started IV Rocephin and Vancomycin on 10/27 -- will ask ID to recommend oral antibiotics - WCx- group B beta strep- pending final cultures - repeat BCx today. - BCx- gram positive cocci x1 - Warm sitz baths TID - Morphine 4 mg q4 hrs PRN for pain control - Consulted general surgery, appreciate recommendations -- I&D on 10/28 T2DM- UNCONTROLLED due to medication noncompliance- ha1c= 15.2%: - Diabetic education consultation placed - Metformin 1000 mg BID held - Continue Lantus 35 units QPM and 15 U QAM - BSG ACHS w/ sliding insulin scale - Diabetic diet Elevated alkaline phosphatase- has known fatty liver seen on CT scan in the past : - Encouraged weight loss and diabetic control - Follow LFTs as an outpatient DVT Prophylaxis: Mechanical; chemical means held due planned I&D- begin as per surgical recommendations Code Status: FULL CODE Dispo: From home, lives w/ and daughter- case management social worker consulted, likely discharge within 1 days (Shantal Espinoza PA-C) Attending Attestation: Pt seen/examined, chart reviewed, care plan d/w ROXY Espinoza. I agree w/ the guevara components of her documentation. Still with mild soreness of right buttock but improved. No other complaints. VSS no fever gen - nad skin - buttocks - again resolving cellulitis right buttock; 1.5-2cm linear incision in perirectal area but abscess cavity is smaller today A/P: 1. right perirectal abscess s/p ID with associated cellulitis - IV abx; culture with group B strep and coag neg staph. Await final cx results. 2. possible bacteremia 2nd to #1 - await identification of organisms in blood; repeat blood cx's thus far negative. Given that initial blood cx's were just 1/ 2 sets and there were 2 organisms in the 1 set may suggest contamination. Await final ID. 3. T2DM - uncontrolled, but now markedly improved with addition of AM lantus to his PM lantus. Pt willing to do 4 shots of insulin/day at home. daughter updated hopefully home in AM Johann Leiva MD (Johann Leiva MD)
[2016-10-29] MEDS: INSULIN ASPART 100 UNITS/ML 3 ML PEN SC SCH ×4 (08:59→21:14)
[2016-10-29] MEDS: INSULIN GLARGINE SOLOSTAR 100 UNITS/ML 3 ML PEN SC SCH ×2 (09:00→21:16)
--- NOTE | 2016-10-29 09:35 | Surgery Progress Note ---
Surgery Progress Note Date of Service Oct 29, 2016. Subjective Post OP Day: 1 + pain controlled, No nausea, No vomiting Patient sitting up in bed eating breakfast. Reports mild discomfort- surgical area is more sore than painful. Per pt- blood sugars are improving. Objective Vital Signs: Date Time Temp Pulse Resp B/P (MAP) Pulse Ox O2 Delivery O2 Flow Rate FiO2 10/29/16 08:00 Room Air 10/29/16 07:00 37.3 54 16 131/80 (97) 97 Room Air 10/29/16 03:07 36.6 65 16 137/77 (97) 99 Room Air 10/28/16 23:30 Room Air 10/28/16 23:11 37.3 63 14 118/72 (87) 96 Room Air 10/28/16 20:00 37.2 59 16 118/69 (85) 98 Room Air 10/28/16 15:43 Room Air 10/28/16 15:09 36.7 57 16 138/76 (96) 94 Room Air 10/28/16 13:54 36.7 72 18 129/69 (89) 98 Room Air 10/28/16 12:30 76 18 120/76 (91) 10/28/16 11:56 36.5 66 17 131/82 (98) 96 Room Air 10/28/16 11:12 36.5 57 18 123/77 (92) 98 Room Air 10/28/16 10:36 36.6 55 14 129/82 (98) 99 Room Air 10/28/16 10:35 99 Room Air 10/28/16 10:30 52 12 133/75 97 Room Air 10/28/16 10:20 36.6 54 15 118/78 96 Room Air 10/28/16 10:10 54 12 148/83 100 Mask 10 10/28/16 10:00 36.7 59 16 126/78 100 Mask 10 General Appearance: WD/WN, no apparent distress Head: normocephalic, atraumatic Laboratory Results: Results Past 24 Hours Test 10/28/16 10:09 10/28/16 11:55 10/28/16 17:11 10/28/16 20:41 Range/Units Bedside Glucose 157 269 231 243 70-99 mg/dl Test 10/29/16 05:54 10/29/16 08:07 Range/Units White Blood Count 6.07 4.8-10.8 K/uL Red Blood Count 4.70 4.7-6.1 M/uL Hemoglobin 13.2 14.0-18.0 g/dL Hematocrit 37.9 42-52 % Mean Corpuscular Volume 80.6 80-100 fL Mean Corpuscular Hemoglobin 28.1 25-34 pg Mean Corpuscular Hemoglobin Concent 34.8 32-36 g/dl RDW Standard Deviation 35.4 36.4-46.3 fL RDW Coefficient of Variation 12.1 11.5-14.5 % Platelet Count 202 130-400 K/uL Mean Platelet Volume 8.0 7.4-10.4 fL Creatinine 0.72 0.60-1.40 mg/dl Est Creatinine Clear Calc Drug Dose 141.1 ml/min Estimated GFR () 117.5 Estimated GFR (Non- 101.4 Bedside Glucose 150 70-99 mg/dl Microbiology Results 10/29/16 Blood Culture, Received Pending 10/29/16 Blood Culture, Received Pending 10/28/16 Gram Stain - Final, Resulted 10/28/16 Bacterial Culture, Resulted Pending Assessment & Plan Dr. Caruso in to see and examine patient. Blood culture pending. Patient to have daily packing changes- reports that daughter will be changing packing daily at home. From surgical standpoint ok to discharge. Patient to follow-up with Dr. Caruso in the office in 1 week after discharge.
[2016-10-29 15:35] VITALS: BP 119/68; PULSE 60; TEMP 37.2; O2SAT 98
[2016-10-29] MEDS: CEFTRIAXONE SOD INJ 1 GM in DEXTROSE 5% ADD-VANTAGE 50ML 50 ML IV SCH (15:45)
[2016-10-29] MEDS ORDERED: VANCOMYCIN TROUGH SCH (17:30)
[2016-10-29 21:31] VITALS: Ht 175.3 cm; Wt 122.6 kg
[2016-10-29 23:16] VITALS: BP 113/63; PULSE 68; TEMP 36.6; O2SAT 97
[2016-10-30 05:46] LABS: HEMATOCRIT 37.9 % (42-52); MEAN CELL VOLUME 82.8 fL (80-100); MEAN CORPUSCULAR HEMOGLOBIN 28.2 pg (25-34); MEAN PLATELET VOLUME 7.7 fL (7.4-10.4); PLATELET COUNT 172 K/uL (130-400); RED BLOOD COUNT 4.58 M/uL (4.7-6.1); WHITE BLOOD COUNT 5.88 K/uL (4.8-10.8)
[2016-10-30] MEDS: VANCOMYCIN INJ 1,750 MG in SODIUM CHLORIDE 0.9% 500ML 500 ML IV SCH (06:05)
[2016-10-30 06:20] LABS: CREATININE 0.72 mg/dl (0.60-1.40)
[2016-10-30 07:12] VITALS: BP 138/89; PULSE 60; TEMP 37; O2SAT 98
[2016-10-30] MEDS: HYDROCODONE/ACETAMOPHEN 5/325MG TAB PO PRN (07:27)
--- NOTE | 2016-10-30 08:01 | Surgery Progress Note ---
Surgery Progress Note Date of Service Oct 30, 2016. Subjective Post OP Day: 2 + feeling well, No complaints Objective Vital Signs: Date Time Temp Pulse Resp B/P (MAP) Pulse Ox O2 Delivery O2 Flow Rate FiO2 10/30/16 07:12 37.0 60 16 138/89 (105) 98 Room Air 10/29/16 23:16 36.6 68 14 113/63 (80) 97 Room Air 10/29/16 23:05 Room Air 10/29/16 15:45 Room Air 10/29/16 15:35 37.2 60 18 119/68 (85) 98 Room Air 10/29/16 08:00 Room Air Incision(s): findings (erythema much improved, induration improving) Laboratory Results: Results Past 24 Hours Test 10/29/16 08:07 10/29/16 12:04 10/29/16 17:30 10/29/16 17:32 Range/Units Bedside Glucose 150 144 158 70-99 mg/dl Vancomycin Level Trough 12.8 SEE COMMENT mcg/ml Test 10/29/16 20:45 10/30/16 05:36 Range/Units Bedside Glucose 168 70-99 mg/dl White Blood Count 5.88 4.8-10.8 K/uL Red Blood Count 4.58 4.7-6.1 M/uL Hemoglobin 12.9 14.0-18.0 g/dL Hematocrit 37.9 42-52 % Mean Corpuscular Volume 82.8 80-100 fL Mean Corpuscular Hemoglobin 28.2 25-34 pg Mean Corpuscular Hemoglobin Concent 34.0 32-36 g/dl RDW Standard Deviation 36.8 36.4-46.3 fL RDW Coefficient of Variation 12.3 11.5-14.5 % Platelet Count 172 130-400 K/uL Mean Platelet Volume 7.7 7.4-10.4 fL Creatinine 0.72 0.60-1.40 mg/dl Est Creatinine Clear Calc Drug Dose 141.2 ml/min Estimated GFR () 117.5 Estimated GFR (Non- 101.4 Assessment & Plan s/p I&D perirectal abscess continue daily packing change cont po abx at d/c f/u 1 week in clinic
[2016-10-30] MEDS: INSULIN ASPART 100 UNITS/ML 3 ML PEN SC SCH ×2 (08:33→12:33)
[2016-10-30] MEDS: INSULIN GLARGINE SOLOSTAR 100 UNITS/ML 3 ML PEN SC SCH (08:35)
--- NOTE | 2016-10-30 08:59 | Pharmacy Progress Note ---
Pharmacy Antibiotic Prog Note Date of Service Oct 30, 2016. Subjective The patient is currently receiving vancomycin 1750 mg iv q 12 hrs for perirectal abscess The patient is currently on day # 4 of IV therapy. Objective Height (Feet): 5 Height (Inches): 9.00 Weight (Kilograms): 122.600 Levels: Item Value Date Time Vancomycin Level Trough 12.8 mcg/ml 10/29/16 1732 Lab Results (24hrs): Test 10/29/16 17:32 10/29/16 20:45 10/30/16 05:36 10/30/16 07:55 Vancomycin Level Trough 12.8 mcg/ml (SEE COMMENT) Bedside Glucose 168 mg/dl (70-99) 109 mg/dl (70-99) White Blood Count 5.88 K/uL (4.8-10.8) Red Blood Count 4.58 M/uL (4.7-6.1) Hemoglobin 12.9 g/dL (14.0-18.0) Hematocrit 37.9 % (42-52) Mean Corpuscular Volume 82.8 fL (80-100) Mean Corpuscular Hemoglobin 28.2 pg (25-34) Mean Corpuscular Hemoglobin Concent 34.0 g/dl (32-36) RDW Standard Deviation 36.8 fL (36.4-46.3) RDW Coefficient of Variation 12.3 % (11.5-14.5) Platelet Count 172 K/uL (130-400) Mean Platelet Volume 7.7 fL (7.4-10.4) Creatinine 0.72 mg/dl (0.60-1.40) Est Creatinine Clear Calc Drug Dose 141.2 ml/min Estimated GFR () 117.5 Estimated GFR (Non- 101.4 Micro Results: Item Value Date Time Blood Culture - Preliminary Resulted 10/29/16 0554 Blood NO GROWTH TO DATE. Blood Culture - Preliminary Resulted 10/29/16 0554 Blood NO GROWTH TO DATE. Gram Stain - Final Resulted 10/28/16 0942 Abscess Perirectal Gram Stain - Final Complete 10/27/16 1515 Drainage - Surface Buttock Right Blood Culture - Preliminary Resulted 10/27/16 1235 Blood NO GROWTH TO DATE. Blood Culture - Preliminary Resulted 10/27/16 1225 Blood Coag Neg Staph Not Lugdunensis Assessment & Plan Patient on vancomycin and rocephin for perirectal abscess s/p I&D. Vancomycin: * Trough level last evening was slightly subtherapeutic at ~13 mcg/ml (goal closer to ~15 mcg/ml for cellulitis/abscess); However, due to elevated BMI (BMI> 35 kg/m2), expect patient to quickly accumulate drug therefore will continue same regimen for now * Per MD note, believe initial blood cx possibly contamination, repeat blood cx are no growth * Patient possibly be discharged soon on oral agents once all cultures return, however if patient still here in next 1-2 days will order repeat trough to ensure therapeutic Pharmacy will continue to follow and will adjust dose/frequency as necessary. Thank you
[2016-10-30] MEDS ORDERED: SULF800T23 PO (09:07)
[2016-10-30] MEDS ORDERED: OXYC-57 PO (09:07)
[2016-10-30 10:50] VITALS: BP 138/89; PULSE 60; TEMP 37; O2SAT 98
--- NOTE | 2016-10-30 11:03 | Discharge Instructions ---
Discharge Instructions Date of Service Oct 30, 2016. Admission Reason for Admission: Perirectal Abscess Discharge Discharge Diagnosis / Problem: Perirectal abscess Discharge Goals Goal(s): Decrease discomfort, Improve function, Increase independence, Improve disease control Activity Recommendations Activity Limitations: as noted below Lifting Limitations: gradually increase as tolerated Exercise/Sports Limitations: none Shower/Bathe: no limitations Driving or Machine Use: DO NOT DRIVE for 24 hours after the last percocet . Instructions / Follow-Up Instructions / Follow-Up You were admitted to [facility] with a perirectal abscess which required drainage by the general surgical team. - During your stay here you were treated with IV antibiotics, pain control, and other supportive treatment. - You underwent incision and drainage of the perirectal abscess on 10/28/[address] Caruso, please see surgical recommendations below. - Continue taking Keflex 500 mg three times daily for the next 7 days. Finish on 11/06/16 Diabetes mellitus Type 2: - Your hemoglobin A1C was found elevated at 15.2, this is a measurement of intermediate sugar. Have repeat check in ~ 3 months. - Take Lantus 30 U at bedtime - Start taking Novolog Flexpen 10 U with breakfast, lunch and dinner - Continue taking Metformin 1000 mg twice daily - It is very important to continue taking diabetic medications as directed above , and to check your glucose regularly, ie. before meals and at bedtime. - The primary special educator can be of assistance as an outpatient Follow up: Follow up with your Primary Care Provider within 1 week. Follow up with general surgery within 1-2 weeks. Current Hospital Diet Patient's current hospital diet: Diabetes Type 2 Diet Discharge Diet Recommended Diet: Diabetes Type 2 Diet Procedures Procedures Performed: 10/28/16: incision and drainage of perirectal abcess Pending Studies Studies pending at discharge: no Laboratory Results Hemoglobin A1c Test 10/28/16 05:32 Range/Units Estimated Average Glucose 390 mg/dl Hemoglobin A1c 15.2 H 4.5-5.6 % Medical Emergencies . Who to Call and When: Medical Emergencies: If at any time you feel your situation is an emergency, please call 911 immediately. . Non-Emergent Contact Non-Emergency issues call your: Primary Care Provider Call Non-Emergent contact if: you have a fever (sweats or chills), temperature is above 100.5, your pain is not controlled, your pain is worsening, your pain is unusual for you, your pain is concerning you, wound has increased drainage, wound has increased redness, wound has increased pain, you have any medication questions (or if you have other concersn regarding your health) . Past History Medical & Surgical History: (1) Perirectal abscess (2) Diabetes type 2, uncontrolled . "Provider Documentation" section prepared by Crista Espinoza Attending Attestation: Pt seen/examined and discharge care plan d/w ROXY Espinoza on day of discharge. I agree with her discharge instructions. Patient will have daily dressing changes at home. Johann Leiva MD . VTE Core Measure Inpt VTE Proph given/why not?: Beena Jane, SCD's [place] Drug Monitoring Program Search Results: patient reviewed within database, no issues identified
[2016-10-30] MEDS ORDERED: MRLP17X PO (11:05)
[2016-10-30] MEDS ORDERED: INSDGIPEN SC ×2 (11:05→13:00)
[2016-10-30] MEDS ORDERED: LCTX PO (11:07)
[2016-10-30] MEDS ORDERED: NVLGI/PEN SQ (11:18)
[2016-10-30] MEDS ORDERED: CEPH-571 PO (11:18)
[2016-10-30] MEDS ORDERED: INSDGI SC (11:18)
[2016-10-30] MEDS ORDERED: INSU-698 SC (12:57)
[2016-10-30] MEDS ORDERED: NVLGIPEN SC (12:57)
--- NOTE | 2016-10-30 15:23 | Discharge Summary ---
Discharge Summary Date of Service Oct 30, 2016. (Shantal Espinoza PA-C) Discharge Summary Admission Date: Oct 27, 2016 at 17:56 Discharge Date: Oct 30, 2016 Discharge Disposition: Home Principal Diagnosis: Perirectal abscess Problems/Secondary Diagnoses: (1) Body Mass Index 40 And Over, Adult Status: Chronic (2) Diabetes Status: Chronic (3) Esophageal Reflux Status: Chronic (4) Hyperlipidemia Nec/Nos Status: Chronic (5) Hypertension Nos Status: Chronic (6) Obstructive Sleep Apnea (Adult) (Pediatric) Status: Chronic Immunizations: Have You Had Influenza Vaccine: No History of Tetanus Vaccine?: Unknown History of Pneumococcal: No History of Hepatitis B Vaccine: No Procedures: 10/28/16: Incision and Drainage of Perirectal abscess by Dr. Royce Caruso CT PELVIS W/IV CONT ONLY (CT) CLINICAL HISTORY: Right perirectal edema, erythema, induration. FINDINGS: The inferior aspect of the kidneys are unremarkable appearance. Minimally prominent para-aortic lymph nodes remain stable. There is no acute diverticulitis. There is trace periappendiceal fluid, but no evidence of periappendiceal dilatation. No bladder abnormalities are visualized. There is infiltration of the fat involving the right gluteal fold. There are no fluid collections to indicate a drainable abscess. No fistulous tracts are visualized. IMPRESSION: 1. Infiltration of the fat involving the right gluteal fold. No direct CT evidence of a perirectal abscess or fistula. Consultations: General Surgery Wound care (Shantal Espinoza PA-C) Medication Reconciliation New Medications: Cephalexin (Keflex) 500 Mg Cap 1 CAP PO TID for 7 Days, #21 CAP Lactobacillus Acidophilus (Lactinex) Tab 1 TAB PO TID for 14 Days, #14 TAB Needle (Bd Pen Needle/Mini/Ultraf) 1 Ea Inj BOX SC ACHS, #1 11 Refills to be used with Novolog flexpen with meals and lantus pen at bedtime Oxycodone/Acetaminophen 5MG/325MG (Percocet 5MG/325MG) Tab 1-2 TABLETS PO Q4H PRN for Pain, #30 TAB Insulin Glargine (Lantus Solostar) 100 Unit/Ml Inj 30 UNITS SC HS, #1 BOX 11 Refills Polyethylene (Miralax) 17 Gm Pow 17 GM PO DAILY PRN for Constipation for 30 Days, #30 DOSE Changed Medications: Insulin Aspart (Novolog Flexpen) 100 Units/Ml Inj 10 UNIT SC AC, #1 BOX 5 Refills (Changed from: 1 UNIT; DIRECTED; Removed Reason; Refills: ; Removed Instructions) Continued Medications: Metformin Hcl (Glucophage) 1,000 Mg Tab 1000 MG PO BID, TAB Discharge Exam The patient was seen and examined this morning. Pt reports doing well. He denies any pain and states drainage from abscess is minimizing. He is doing sitz baths TID and reports this help with soreness. Pt reports his was instructed yesterday on how to place packing and assess the wound. All his questions and concerns were addressed. \ ROS: Constitutional: No fever, sweats or chills Eyes: No diplopia, no worsening or blurred vision ENT: normal hearing, no trouble swallowing Respiratory: No cough, sputum, dyspnea at rest or on exertion Cardiovascular: No chest pain, tightness or palpitations Abdomen: No pain, nausea, vomiting, diarrhea or constipation Musculoskeletal: No joint pain, calf pain, swelling Neurologic: No weakness, numbness/tingling, or balance problems Psychiatric: No anxiety or depression Skin: No rash or itch Physical Exam: General: awake, alert, no apparent distress, +obese Head: Normocephalic, atraumatic ENT: PERRL, EOMI, no pharyngeal exudate, mucous membranes moist Chest: Clear to auscultation, on room air, no adventitious breath sounds Cardiac: Regular rate and rhythm, no murmur, no JVD, normal peripheral pulses, good capillary refill Abdominal: NABS x 4 quadrants, soft, nontender to palpation, no rebound, guarding or tenderness : Perirectal abscess examined, dressing with serosanginous drainage, incision packed. Extremities: Normal inspection, no peripheral edema or erythema, calfs nontender to palpation Psych: Normal mood and affect Neuro: AAO x 3, strength intact bilaterally and related 5/5, no motor deficits, speech is clear, no peripheral sensory deficits (Shantal Espinoza PA-C) Hospital Course H&P per Shanika Carson MD. History of Present Illness Source: patient This patient is a 60-year-old male with a history of diabetes mellitus type 2, acute pancreatitis, noncompliance with medications, who presents with progressively worsening right buttocks pain and general malaise. Over the last 2 days, the right buttocks pain has increased dramatically and he has noticed drainage coming from the area. He was placed on Levaquin as an outpatient for a few days with no improvement. He is afebrile, no evidence of sepsis, lactate was normal at 1.2. He had significant hyperglycemia in the ER with a sugar of 355. He was found to have a large area of developing right perirectal abscess with surrounding cellulitis that had failed outpatient treatment. Physical Exam Vital Signs Date Time Temp Pulse Resp B/P (MAP) Pulse Ox O2 Delivery O2 Flow Rate FiO2 10/27/16 16:25 98 Room Air 10/27/16 15:29 61 20 118/64 98 Room Air 10/27/16 14:10 66 20 134/70 98 Room Air 10/27/16 12:51 98 Room Air 10/27/16 12:01 36.9 82 18 137/77 96 Room Air General Appearance: no apparent distress, + obese Head: normocephalic, atraumatic Eyes: normal inspection, EOMI, sclerae normal ENT: hearing grossly normal, pharynx normal Neck: trachea midline Respiratory/Chest: lungs clear, normal breath sounds, no respiratory distress, no accessory muscle use Cardiovascular: regular rate, rhythm, no edema, no gallop, no murmur, normal peripheral pulses Abdomen/GI: normal bowel sounds, non tender, soft, no organomegaly (and morbidly obese), + pertinent finding (right medial buttocks with very large area of erythema, induration that extends down into perirectal region, with central fluctuence and purulent drainage centrally, entire area approximately 20 cm) Back: normal inspection Extremities/Musculoskelatal: normal inspection, no calf tenderness, no pedal edema Neurologic/Psych: alert, normal mood/affect, oriented x 3 Skin: warm/dry, + pertinent finding (buttocks as above) Hospital Course: 60 yo M with PMHx of diabetes mellitus type 2, acute pancreatitis, noncompliance with medications, who presents with progressively worsening right buttocks pain and general malaise. He was found to have a large area of developing right perirectal abscess with surrounding cellulitis that had failed outpatient treatment. He underwent I&D on 10/[address] Caruso. Pt was treated with IV antibiotics rocephin and vanc during admission, and then was transitioned to oral Keflex. The patient and his were instructed on dressing change instructions prior to d/c. The patient was also found to have significantly elevated Hgb A1C= 15.2, so diabetic regimen was titrated during admission. He was discharged on Lantus 30 U QPM and Novolog 10 U TID along with metformin 1000 mg BID. Right perirectal abscess and cellulitis- failed outpatient treatment w/ Levaquin : - Started IV Rocephin and Vancomycin on 10/27 - switched to Keflex 500 mg TID x 7 days at time of discharge. - WCx grew Group B beta strep - wound surface cultures growing gram neg staph but no sensitivity was done. Microbiology is repeating the sensitivity, will follow up in 1-2 day. pt - BCx- gram positive cocci x1 but was likely contaminate as it grew Lugdunesis with in 1/2 bottles, and repeat BCx were Negative. - Warm sitz baths TID - pt had no limitations at time of discharge. - Consulted general surgery, appreciate recommendations - I&D on 10/28 - Follow up with Dr. Caruso in office in 1-2 weeks. T2DM- UNCONTROLLED due to medication noncompliance- ha1c= 15.2%: - museum educator consulted - Metformin 1000 mg BID restarted at time of dc - Continue Lantus 30 units QPM started on Novolog 10 U TID with meals. - BSG ACHS w/ sliding insulin scale - Diabetic diet Elevated alkaline phosphatase- has known fatty liver seen on CT scan in the past : - Encouraged weight loss and diabetic control - Follow LFTs as an outpatient DVT Prophylaxis: Teds, SCDs, ambulatory Code Status: FULL CODE Dispo: From home, lives w/ and daughter, discharge home today Total Time Spent: Greater than 30 minutes This includes examination of the patient, discharge planning, medication reconciliation, and communication with other providers. (Shantal Espinoza PA-C) Attending Discharge Note & Attestation: Pt seen/examined, chart reviewed, discharge care plan d/w ROXY Espinoza. I agree with the guevara components of her discharge summary. 60yo male with uncontrolled T2DM who presented with a right-sided buttock cellulitis with perirectal abscess. Taken to the OR by Dr. Caruso who performed I/D of such. Intra-op culture grew group B strep. A 2nd wound culture swab grew group B strep as well as coag negative staph. At discharge the sensitivities for the latter were pending. He clinically improved with the I/D, IV antibiotics, and daily dressing changes. He will d/c home with daily dressing changes/packing and keflex x 7 days. His uncontrolled T2DM improved with lantus/novolog while here. Was seen by the diabetes education team. He will d/c home on lantus 30 units HS, novolog 10 units AC, and metformin 1gm BID. Close PCP f/u was advised for further adjustments. Discharge exam - gen -nad, obese heart -RRR, s1, s2 lungs -CTA b/l abd -soft, NT ext -no edema skin -right buttock cellulitis improved; incision of the previous abscess site is clean with packing in place; the abscess cavity is smaller than previous examinations; no odor Johann Leiva MD (Johann Leiva MD) Discharge Instructions Please refer to the electronic Patient Visit Report (Discharge Instructions) for additional information. (Shantal Espinoza, MACKENZIE) Follow-Up Follow up with your Primary Care Provider within 1 week. Follow up with General Surg within 1-2 weeks. (Shantal Espinoza PA-C) Additional Copies To Royce Caruso D.O.; Ravi Villalta M.D.
[2017-01-10] MEDS ORDERED: INSDGI SC (08:48)
== END 2016-10-30 14:40 | disposition home or self-care (01) | DRG 395 ==
LOC: C.EDB 12:00 → C.3E 17:56 → ENRESERV 18:08
PROVIDERS: ADMIT Family Medicine; ATTEND Internal Medicine
PROC: 0H98XZZ Drainage of Buttock Skin, External Approach (ICD-10-PCS; principal; 2016-10-28 11:00)
DX: K61.1 Rectal abscess (principal); K21.9 Gastro-esophageal reflux disease without esophagitis; E78.5 Hyperlipidemia, unspecified; I10 Essential (primary) hypertension; Z79.4 Long term (current) use of insulin; Z79.84 Long term (current) use of oral hypoglycemic drugs; Z87.891 Personal history of nicotine dependence

== ENCOUNTER → 2016-12-12 | Outpatient (CLI) | payer BC ==
[~2016-12-12] MED LIST changes: +INSDGI SC; +INSU-698 SC; -MOME50SP5; -MRLP17 PO; +MRLP17X PO; +OXYC-57 PO; -SENN-65 PO
--- NOTE | 2016-12-12 10:18 | DIAGNOSTIC IMAGING REPORT ---
RIGHT THIRD FINGER 3 VIEWS CLINICAL HISTORY: Third finger injury. FINDINGS: 3 views of the right third finger are obtained. No prior studies are available for comparison at the time of dictation. The skeletal structures are well mineralized. There is no radiographic evidence of fracture. The third metacarpophalangeal and interphalangeal joints are maintained. The proximal interphalangeal joint is flexed and there is soft tissue swelling around this joint. No radiodense foreign body is seen. IMPRESSION: 1. No fracture is identified. 2. There is flexion at the proximal interphalangeal joint with overlying soft tissue edema. Electronically signed by: Freddy Gutierrez M.D. 12/12/2016 10:17 AM Dictated Date/Time: 12/12/2016 10:16 AM
== END | disposition home or self-care (01) ==
LOC: C.RAD1850 09:48
PROVIDERS: ATTEND Internal Medicine
DX: S69.90XA Unspecified injury of unspecified wrist, hand and finger(s), initial encounter (principal); X58.XXXA Exposure to other specified factors, initial encounter

== ENCOUNTER → 2017-01-21 | Day surgery (SDC) | payer BC ==
[2017-01-10 08:49] VITALS: Ht 175.3 cm; Wt 137.3 kg
[~2017-01-21] VITALS: Ht 175.3 cm; Wt 137.3 kg
[~2017-01-21] MED LIST changes: -INSDGIPEN SC; -INSU-698 SC; +LIDOCAINE HCL 2% 2 ML VIAL (20MG/ML) ONE; -MRLP17X PO; -OXYC-57 PO; +PROPOFOL IV EMULSION 10 MG/ML 20 ML VIAL IV ONE
--- NOTE | 2017-01-21 08:57 | Endo History and Physical ---
History & Physical Date of Service: Jan 21, 2017. Chief Complaint: History of colon polyps Referring Physician: Ravi Villalta History of Present Illness 61 yo CM who presents for colonoscopy secondary to history of colon polyps. Past Medical History Diabetes Past Surgical History Hx Cardiac Surgery: No Hx Internal Defibrillator: No Hx Pacemaker: No Hx Abdominal Surgery: Yes ([facility]) Hx of Implantable Prosthesis: No Hx Post-Op Nausea and Vomiting: No Hx Cancer Surgery: No Hx Thoracic Surgery: No Hx Orthopedic: No Hx Urinary Tract Surgery: No Family History None Social History Smoking Status: Former Smoker Hx Substance Use: No Hx Alcohol Use: No Allergies Coded Allergies: Penicillins (Verified Allergy, Unknown, PER PT, RXN="ARMS WENT UP IN THE AIR AND WOULDN'T COME DOWN", 01/21/17) Current Medications Reported Home Medications Medications Dose Route/Sig Max Daily Dose Days Date Category Lantus (Insulin Glargine) 100 Unit/Ml Inj 32 SC QPM 01/10/17 Reported Novolog Flexpen (Insulin Aspart) 100 Units/Ml Inj 10 Unit SC AC 10/30/16 Rx Glucophage (Metformin Hcl) 1,000 Mg Tab 1,000 Mg PO BID 08/03/14 Reported Vital Signs Weight (Kilograms): 137.27 Height (Feet): 5 Height (Inches): 9 Physical Exam General Appearance: WD/WN, no apparent distress Respiratory/Chest: Auscultation: breath sounds normal Cardiovascular: Heart Auscultation: RRR Abdomen: Bowel Sounds: normal Inspection & Palpation: soft, non-distended, no tenderness, guarding & rebound Assessment and Plan Assessment: 61 yo CM who presents for colonoscopy secondary to history of colon polyps. Plan: Proceed with colonoscopy.
--- NOTE | 2017-01-21 09:59 | Discharge Instructions ---
Endoscopy Patient Instructions Date / Procedure(s) Performed Jan 21, 2017. Colonoscopy Allergy Information Coded Allergies: Penicillins (Verified Allergy, Unknown, PER PT, RXN="ARMS WENT UP IN THE AIR AND WOULDN'T COME DOWN", 01/21/17) Discharge Date / Findings Jan 21, 2017. Colon polyps Diverticulosis Internal hemorrhoids Medication Instructions Stopped Medication(s): Insulin last taken on 01/19/17 Metformin last taken on 01/18/17 OK to resume all medications today as prescribed Reported Home Medications Medications Dose Route/Sig Max Daily Dose Days Date Category Lantus (Insulin Glargine) 100 Unit/Ml Inj 32 SC QPM 01/10/17 Reported Novolog Flexpen (Insulin Aspart) 100 Units/Ml Inj 10 Unit SC AC 10/30/16 Rx Glucophage (Metformin Hcl) 1,000 Mg Tab 1,000 Mg PO BID 08/03/14 Reported Provider Instructions Activity Restrictions - No exercising or heavy lifting for 24 hours. - Do not drink alcohol the day of the procedure. - Do not drive a car or operate machinery until the day after the procedure. - Do not make any important decisions or sign important papers in 24 hours after the procedure. Following Day: - Return to full activity which may include returning to work/school. Diet Start your diet with liquids and light foods (jello, soup, juice, toast). Then eat your usual diet if not nauseated. Treatment For Common After Affects For mild abdominal pain, bloating, or excessive gas: - Rest - Eat lightly - Lie on right side Follow-Up Information Follow-up with [facility] as scheduled Anesthesia Information What You Should Know You have had a procedure that required some medicine to reduce anxiety and discomfort. This treatment is called moderate sedation. After receiving the treatment, you may be sleepy, but you will be able to breathe on your own. The effects of the treatment may last for several hours. Follow these instructions along with Activity/Diet recommendations noted above: * Do NOT do anything where dizziness or clumsiness would be dangerous. * Rest quietly at home today, then you can be up and about tomorrow. * Have a responsible person stay with you the rest of today. * You may have had an I.V. today. If so, you may take the dressing off later today. Recommendations Call your doctor if: * Trouble breathing * Continuous vomiting for more than 24 hours * Temperature above 101 degrees * Severe abdominal pain or bloating * Pain not relieved by pain medicine ordered * There is increased drainage or redness from any incision * A large amount of rectal bleeding greater than 2-3 tablespoons. (If you had a polyp/s removed or have hemorrhoids, a small amount of blood - from the rectum is to be expected.) * You have any unanswered questions or concerns. IN THE EVENT OF A SERIOUS EMERGENCY, GO TO THE NEAREST EMERGENCY ROOM Your discharge instructions were prepared by provider Andrei Garg. Patient Instructions Signature Page Enrique Alvarado Patient (or Guardian) Signature/Date: I have read and understand the instructions given to me by my caregivers. Caregiver/RN/Doctor Signature/Date: The above-named patient and/or guardian has received patient instructions on this date. + Original Patient Signature Page (only) stays with chart. Please make copy for patient.
--- NOTE | 2017-01-21 09:59 | GI REPORT ---
Procedure Date: 01/21/2017 9:14 AM Procedure: Colonoscopy Indications: High risk colon cancer surveillance: Personal history of colonic polyps Medicines: Monitored Anesthesia Care Complications: No immediate complications. Estimated Blood Loss: Estimated blood loss: none. Procedure: Pre-Anesthesia Assessment: - Prior to the procedure, a History and Physical was performed, and patient medications and allergies were reviewed. The patient's tolerance of previous anesthesia was also reviewed. The risks and benefits of the procedure and the sedation options and risks were discussed with the patient. All questions were answered, and informed consent was obtained. Prior Anticoagulants: The patient has taken no previous anticoagulant or antiplatelet agents. ASA Grade Assessment: III - A patient with severe systemic disease. After reviewing the risks and benefits, the patient was deemed in satisfactory condition to undergo the procedure. After I obtained informed consent, the scope was passed under direct vision. Throughout the procedure, the patient's blood pressure, pulse, and oxygen saturations were monitored continuously. The Scope was introduced through the anus and advanced to the terminal ileum. The colonoscopy was performed without difficulty. The patient tolerated the procedure well. The quality of the bowel preparation was good. The terminal ileum, ileocecal valve, appendiceal orifice, and rectum were photographed. Findings: Six sessile polyps were found in the rectum, in the sigmoid colon and in the cecum. The polyps were 4 to 7 mm in size. These polyps were removed with a hot snare. Resection and retrieval were complete. Multiple small-mouthed diverticula were found in the sigmoid colon. Non-bleeding internal hemorrhoids were found during retroflexion. The hemorrhoids were small. Impression: - Six 4 to 7 mm polyps in the rectum, in the sigmoid colon and in the cecum, removed with a hot snare. Resected and retrieved. - Diverticulosis in the sigmoid colon. - Non-bleeding internal hemorrhoids. Recommendation: - Resume previous diet. - Continue present medications. - Repeat colonoscopy for surveillance based on pathology results. - Return to primary care physician as previously scheduled. Andrei Garg DO 01/21/2017 9:58:53 AM This report has been signed electronically. Note Initiated On: 01/21/2017 9:14 AM I attest to the content of the Intraoperative Record and orders documented therein, exceptions below
[2017-01-21 10:29] VITALS: BP 128/74; PULSE 61; O2SAT 99
--- NOTE | 2017-01-21 10:33 | Anesthesiology Progress Note ---
Anesthesia Post Op Note Date & Time Jan 21, 2017 at 10:33 Vital Signs Pain Intensity: 0 Vital Signs Past 12 Hours Date Time Temp Pulse Resp B/P (MAP) Pulse Ox O2 Delivery O2 Flow Rate FiO2 01/21/17 10:14 65 18 122/69 (86) 97 Room Air 01/21/17 09:59 68 18 108/66 (80) 97 Room Air 01/21/17 09:02 36.3 66 18 132/79 (96) 99 Room Air Notes Mental Status: alert / awake / arousable, participated in evaluation Pt Amnestic to Procedure: Yes Nausea / Vomiting: adequately controlled Pain: adequately controlled Airway Patency, RR, SpO2: stable & adequate BP & HR: stable & adequate Hydration State: stable & adequate Anesthetic Complications: no major complications apparent
== END | disposition home or self-care (01) ==
LOC: C.GI 08:28
PROVIDERS: ATTEND Internal Medicine
DX: Z12.11 Encounter for screening for malignant neoplasm of colon (principal); K62.1 Rectal polyp; D12.5 Benign neoplasm of sigmoid colon; D12.0 Benign neoplasm of cecum; K57.30 Diverticulosis of large intestine without perforation or abscess without bleeding; K64.8 Other hemorrhoids; Z86.010 Personal history of colon polyps; E11.9 Type 2 diabetes mellitus without complications; Z88.0 Allergy status to penicillin; Z87.891 Personal history of nicotine dependence; Z79.4 Long term (current) use of insulin; Z90.49 Acquired absence of other specified parts of digestive tract; Z68.41 Body mass index [BMI] 40.0-44.9, adult

== ENCOUNTER → 2017-03-12 | Outpatient (CLI) | payer BC ==
[~2017-03-12] MED LIST changes: -LIDOCAINE HCL 2% 2 ML VIAL (20MG/ML) ONE; +PANT40TA PO; -PROPOFOL IV EMULSION 10 MG/ML 20 ML VIAL IV ONE
--- NOTE | 2017-03-12 12:26 | DIAGNOSTIC IMAGING REPORT ---
NUCLEAR GASTRIC EMPTYING STUDY: CLINICAL HISTORY: R10.11 Abdominal pain, RUQ (right upper quadrant)[id number] COMPARISON STUDY: None TECHNIQUE: Following the oral administration of 1.1 mCi of technetium 99m sulfur colloid in egg sandwich and 8 ounces of water, static abdominal images are performed anteriorly and posteriorly at 0 minutes, 1 hour, 2 hours, and 4 hour time intervals. Gastric emptying was calculated utilizing the geometric mean method. FINDINGS: There is approximately 51 % gastric activity remaining at the 1 hour time interval, 34 % at the 2 hour time interval (normal is less than 60%), and 0 % remaining at the 4 hour time interval (normal is less than 10%). These findings are consistent with a normal study IMPRESSION: Findings are consistent with a normal study Electronically signed by: John Terry M.D. 03/12/2017 12:25 PM Dictated Date/Time: 03/12/2017 12:24 PM
== END | disposition home or self-care (01) ==
LOC: C.NUCL 07:46
PROVIDERS: ATTEND Physician Assistant Medical
DX: R10.11 Right upper quadrant pain (principal)

== ENCOUNTER → 2017-03-28 | Outpatient (CLI) | payer BC ==
[~2017-03-28] MED LIST changes: +ASPI-461 PO; +CEPH500C PO; +CLIN300C2 PO; +GLC500 PO; +HYDR-5688 PO; +INSU100I23 SC; +LACTCHW3 PO; +METR-163 PO; +NVLGI/PEN SC; -NVLGIPEN SC; +SULF800T23 PO
[2017-03-28 16:51] LABS: BASO % 0.5 %; BASO ABS # 0.03 K/uL (0-0.2); EOS ABS # 0.23 K/uL (0-0.5); HEMATOCRIT 41.5 % (42-52); HEMOGLOBIN 14.9 g/dL (14.0-18.0); IG# 0.02 K/uL (0.00-0.02); LYMPH % 33.1 %; LYMPH ABS # 1.88 K/uL (1.2-3.4); MEAN CELL VOLUME 80.6 fL (80-100); MEAN CORPUSCULAR HEMOGLOBIN 28.9 pg (25-34); MEAN CORPUSCULAR HGB CONC 35.9 g/dl (32-36); MEAN PLATELET VOLUME 9.8 fL (7.4-10.4); MONO ABS # 0.34 K/uL (0.11-0.59); NEUT ABS # 3.18 K/uL (1.4-6.5); PLATELET COUNT 153 K/uL (130-400); RED CELL DISTRIBUTION WIDTH CV 12.7 % (11.5-14.5); RED CELL DISTRIBUTION WIDTH SD 36.6 fL (36.4-46.3); WHITE BLOOD COUNT 5.68 K/uL (4.8-10.8)
[2017-03-28 17:31] LABS: CREATININE RANDOM URINE 30.9 mg/dl
[2017-03-28 18:07] LABS: ALBUMIN 3.4 gm/dl (3.4-5.0); ALKALINE PHOSPHATASE 156 U/L (45-117); ALT/SGPT 21 U/L (12-78); AST/SGOT 10 U/L (15-37); BLOOD UREA NITROGEN 21 mg/dl (7-18); CALCIUM 9.2 mg/dl (8.5-10.1); CARBON DIOXIDE 27 mmol/L (21-32); CHOLESTEROL 205 mg/dl (0-200); CREATININE 1.06 mg/dl (0.60-1.40); GLUCOSE 459 mg/dl (70-99); LDL CHOLESTEROL CALCULATED 87 mg/dl; POTASSIUM 4.4 mmol/L (3.5-5.1); SODIUM 132 mmol/L (136-145); TOTAL PROTEIN 7.5 gm/dl (6.4-8.2)
[2017-03-29 07:00] LABS: HEMOGLOBIN A1C 11.2 % (4.5-5.6)
== END | disposition home or self-care (01) ==
LOC: C.LABBFT 11:24
PROVIDERS: ATTEND Internal Medicine
DX: E11.65 Type 2 diabetes mellitus with hyperglycemia (principal)

== ENCOUNTER 2017-07-14 11:58 | Emergency (ER) | payer OTHER ==
[~2017-07-14] VITALS: Ht 175.3 cm; Wt 136.5 kg
[~2017-07-14 11:58] MED LIST changes: -ASPI-461 PO; -CEPH500C PO; -CLIN300C2 PO; -GLC500 PO; -HYDR-5688 PO; -INSU100I23 SC; -LACTCHW3 PO; -METR-163 PO; -SULF800T23 PO
[2017-07-14 12:06] VITALS: Ht 175.3 cm; Wt 136.5 kg
[2017-07-14 13:51] VITALS: TEMP 36.7
[2017-07-14] MEDS ORDERED: GLC500 PO (15:10)
[2017-07-14] MEDS ORDERED: CLINDAMYCIN IV 900 MG in DEXTROSE 5% 100ML 100 ML IV ONE (15:15)
[2017-07-14 15:30] LABS: BASO % 0.8 %; BASO ABS # 0.05 K/uL (0-0.2); EOS % 2.8 %; EOS ABS # 0.17 K/uL (0-0.5); HEMATOCRIT 43.1 % (42-52); IG# 0.02 K/uL (0.00-0.02); LYMPH % 43.3 %; LYMPH ABS # 2.67 K/uL (1.2-3.4); MEAN CELL VOLUME 78.5 fL (80-100); MEAN CORPUSCULAR HEMOGLOBIN 29.1 pg (25-34); MEAN CORPUSCULAR HGB CONC 37.1 g/dl (32-36); MONO % 6.5 %; NEUT % 46.3 %; NEUT ABS # 2.86 K/uL (1.4-6.5); PLATELET COUNT 178 K/uL (130-400); RED CELL DISTRIBUTION WIDTH CV 12.3 % (11.5-14.5); RED CELL DISTRIBUTION WIDTH SD 35.1 fL (36.4-46.3); WHITE BLOOD COUNT 6.17 K/uL (4.8-10.8)
[2017-07-14] MEDS ORDERED: XYLOCAINE 1%/SOD BICARB 20 ML VIAL INFIL ONE (15:30)
--- NOTE | 2017-07-14 15:44 | DIAGNOSTIC IMAGING REPORT ---
L FINGER(S) MIN 2 VIEWS ROUTINE HISTORY: 61 years-old Male L index finger infection/paronychia acute left index finger pain COMPARISON: None available TECHNIQUE: 3 views of the left second finger FINDINGS: Mild degenerative changes about the interphalangeal joints without acute fracture or dislocation. The lateral view is limited compared to patient positioning. Mild soft tissue swelling about the second finger. No opaque foreign body. IMPRESSION: Mild soft tissue swelling without fracture or opaque foreign body. The above report was generated using voice recognition software. It may contain grammatical, syntax or spelling errors. Electronically signed by: Alex Moreno M.D. 07/14/2017 3:43 PM Dictated Date/Time: 07/14/2017 3:41 PM
[2017-07-14 15:54] LABS: CALCIUM 9.6 mg/dl (8.5-10.1); CREATININE 1.22 mg/dl (0.60-1.40); POTASSIUM 4.1 mmol/L (3.5-5.1)
[2017-07-14] MEDS ORDERED: CLIN300C2 PO (16:18)
[2017-07-14 16:42] VITALS: BP 122/72; PULSE 64; O2SAT 94
--- NOTE | 2017-07-14 20:27 | EMERGENCY ROOM VISIT NOTE ---
History First contact with patient: 14:37 Chief Complaint: FINGER PAIN Stated Complaint: SWOLLEN BLISTER ON LEFT FINGER History of Present Illness The patient is a 61 year old male who presents to the Emergency Room with complaints of a draining wound on his left index finger. The patient reports that he has been squeezing the wound for the past few days. He now reports redness of the hand and finger. He denies any fevers or chills, and rates his discomfort a 4 out of 10. The patient reports that he does do a lot of stuff with his hands, and has recently been stripping insulation off of electrical wires. He does not recall getting any metal in his finger. He denies any paresthesias or numbness of the fingertip. Tetanus immunization is up-to-date. Review of Systems 10 system review was performed and was negative except for pertinent positives and negatives as indicated in history of present illness Past Medical/Surgical History Medical Problems: (1) Body Mass Index 40 And Over, Adult (2) Cellulitis (3) Diabetes (4) Diabetes type 2, uncontrolled (5) Diabetic ulcer of left foot (6) Diabetic ulcer of left foot (7) Esophageal Reflux (8) Hyperlipidemia Nec/Nos (9) Hypertension Nos (10) Obesity (BMI 30-39.9) (11) Obstructive Sleep Apnea (Adult) (Pediatric) (12) Perirectal abscess Surgical Problems: (1) Hx of cholecystectomy Family History Patient reports no known family medical history. Social History Smoking Status: Never Smoker Alcohol Use: occasionally Drug Use: none Marital Status: Occupation Status: employed Current/Historical Medications Scheduled Clindamycin Hcl (Cleocin), 300 MG PO QID Insulin Aspart (Novolog Flexpen), 15 UNITS SC TIDM Insulin Glargine (Lantus), 45 UNITS SC QPM Metformin HCl (Metformin HCl), 100 MG PO BID Scheduled PRN Pantoprazole (Protonix), 40 MG PO QAM PRN for REFLUX Physical Exam Vital Signs Date Time Temp Pulse Resp B/P (MAP) Pulse Ox O2 Delivery O2 Flow Rate FiO2 07/14/17 16:42 64 19 122/72 94 Room Air 07/14/17 15:43 74 16 134/88 96 Room Air 07/14/17 13:51 36.7 78 16 133/79 95 Room Air 07/14/17 12:06 36.4 82 18 112/73 97 Room Air Physical Exam CONSTITUTIONAL: Healthy and well nourished. Alert and oriented X 3 with positive affect. Patient does not appear in any acute distress. HEENT: Normocephalic, atraumatic. Pupils equal, round and reactive. NECK: Full active range of motion without discomfort. MUSCULOSKELETAL: Examination of the left index finger shows a notable area of purulent accumulation under the proximal nail fold. There is an opening to the radial side, and I am able to express purulent material. Cultures were collected. The patient does not have any obvious induration or fluctuance of the digital pad. The patient has erythema that extends across the dorsum of the finger onto the dorsal hand. Patient does not have any significant worsening pain with flexion or extension of the finger. Capillary refill is less than 2 seconds. INTEGUMENTARY: No rash or other significant dermatologic conditions noted. NEUROLOGIC: No focal neurologic deficits noted. Left index fingertip is sensory intact. Medical Decision & Procedures ER Provider Diagnostic Interpretation: My interpretation of left finger x-rays does not show any obvious radiopaque foreign body, fracture or evidence for osteomyelitis. Radiologist report is as follows: L FINGER(S) MIN 2 VIEWS ROUTINE HISTORY: 61 years-old Male L index finger infection/paronychia acute left index finger pain COMPARISON: None available TECHNIQUE: 3 views of the left second finger FINDINGS: Mild degenerative changes about the interphalangeal joints without acute fracture or dislocation. The lateral view is limited compared to patient positioning. Mild soft tissue swelling about the second finger. No opaque foreign body. IMPRESSION: Mild soft tissue swelling without fracture or opaque foreign body. Laboratory Results 07/14/17 15:00 Red Blood Count 5.49, Mean Corpuscular Volume 78.5, Mean Corpuscular Hemoglobin 29.1, Mean Corpuscular Hemoglobin Concent 37.1, Mean Platelet Volume 9.0, Neutrophils (%) (Auto) 46.3, Lymphocytes (%) (Auto) 43.3, Monocytes (%) (Auto) 6.5, Eosinophils (%) (Auto) 2.8, Basophils (%) (Auto) 0.8, Neutrophils # (Auto) 2.86, Lymphocytes # (Auto) 2.67, Monocytes # (Auto) 0.40, Eosinophils # (Auto) 0.17, Basophils # (Auto) 0.05 4/9/18 15:00 Test 07/14/17 15:00 White Blood Count 6.17 K/uL (4.8-10.8) Red Blood Count 5.49 M/uL (4.7-6.1) Hemoglobin 16.0 g/dL (14.0-18.0) Hematocrit 43.1 % (42-52) Mean Corpuscular Volume 78.5 fL (80-100) Mean Corpuscular Hemoglobin 29.1 pg (25-34) Mean Corpuscular Hemoglobin Concent 37.1 g/dl (32-36) Platelet Count 178 K/uL (130-400) Mean Platelet Volume 9.0 fL (7.4-10.4) Neutrophils (%) (Auto) 46.3 % Lymphocytes (%) (Auto) 43.3 % Monocytes (%) (Auto) 6.5 % Eosinophils (%) (Auto) 2.8 % Basophils (%) (Auto) 0.8 % Neutrophils # (Auto) 2.86 K/uL (1.4-6.5) Lymphocytes # (Auto) 2.67 K/uL (1.2-3.4) Monocytes # (Auto) 0.40 K/uL (0.11-0.59) Eosinophils # (Auto) 0.17 K/uL (0-0.5) Basophils # (Auto) 0.05 K/uL (0-0.2) RDW Standard Deviation 35.1 fL (36.4-46.3) RDW Coefficient of Variation 12.3 % (11.5-14.5) Immature Granulocyte % (Auto) 0.3 % Immature Granulocyte # (Auto) 0.02 K/uL (0.00-0.02) Erythrocyte Sedimentation Rate 37 mm/hr (0-14) Anion Gap 10.0 mmol/L (3-11) Est Creatinine Clear Calc Drug Dose 87.3 ml/min Estimated GFR () 73.7 Estimated GFR (Non- 63.6 BUN/Creatinine Ratio 22.5 (10-20) Calcium Level 9.6 mg/dl (8.5-10.1) C-Reactive Protein 2.09 mg/dl (0-0.29) Beta-Hydroxybutyric Acid 1.89 mg/dL (0.2-2.81) The above labs were reviewed. Medications Administered Medications (Trade) Dose Ordered Sig/Nikhil Route Start Time Stop Time Status Last Admin Dose Admin Clindamycin Phosphate 900 mg/ Dextrose 106 ml @ 100 mls/hr ONE ONCE IV 07/14/17 15:15 07/14/17 16:18 DC 07/14/17 15:42 100 MLS/HR Procedure I&D procedure was performed under digital block anesthesia after receiving verbal consent from the patient. Using buffered 1% lidocaine without epinephrine, good digital block anesthesia was administered. The finger was then painted with iodine and allowed to dry. Sterile field was created. While cleaning the wound, the roof of the abscess sloughed off. Further irrigation the wound shows a notable area of focalized necrosis of the proximal nail fold that extends back under the soft tissue. I am unable to palpate or probe any further fistulous tracts. The wound was irrigated, then a bacitracin dressing was applied. ED Course Patient history and physical exam were performed. Nurse's notes were reviewed. Vital signs were reviewed and were normal. The patient reports phylactic reaction to penicillins, and possibly cephalosporins. IV access was established , and labs were drawn. The patient was administered IV clindamycin. I&D procedure was performed under digital block anesthesia. Labs were reviewed as well. The patient was provided contact information for Dr. Patel, hand surgeon for further follow-up. If the patient has difficulty establishing this appointment , he was instructed to call the emergency department for further assistance by our caser. The patient was provided a prescription for clindamycin. He was encouraged to take ibuprofen or Tylenol as needed for pain. He is welcome to return to the emergency department sooner with any progressively worsening redness, swelling, pain or fever. The patient was happy with plan of care, voiced understanding of all discharge instructions, and denied any pain at the conclusion of my exam. Medical Decision Medication Reconcilliation Current Medication List: was personally reviewed by me Blood Pressure Screening Patient's blood pressure: Normal blood pressure Impression Primary Impression: Paronychia of left index finger Departure Information Prescriptions Clindamycin Hcl (CLEOCIN) 300 Mg Cap 300 MG PO QID for 7 Days, #28 CAP Prov: Calvin Clark PA 07/14/17 Referrals Ravi Villalta M.D. (PCP) Patient Instructions My [facility]
== END 2017-07-14 16:59 | disposition home or self-care (01) ==
LOC: C.EDB 12:00 → C.EDD 16:59
DX: L03.012 Cellulitis of left finger (principal); M79.642 Pain in left hand; E11.9 Type 2 diabetes mellitus without complications; I10 Essential (primary) hypertension; E66.9 Obesity, unspecified; Z68.41 Body mass index [BMI] 40.0-44.9, adult; G47.33 Obstructive sleep apnea (adult) (pediatric); Z79.4 Long term (current) use of insulin; Z79.899 Other long term (current) drug therapy

== ENCOUNTER 2018-05-22 10:14 | Inpatient (IN) ==
--- NOTE | 2018-05-15 14:11 | PAT Medication Instructions ---
Medication Instructions Date of Service May 15, 2018 Home Medications Medication Instructions Recorded acetaminophen [Mapap 650 mg PO Q4H PRN #1 tab 02/28/18 (acetaminophen)] cephalexin 500 mg capsule 500 mg PO TID #1 cap 04/13/18 aspirin 81 mg PO QAM metformin 1,000 mg PO BID acetaminophen [Mapap 650 mg PO Q4H PRN insulin aspart U-100 100 unit/mL 5 units SQ DAILY insulin glargine (U-100) 100 55 units SQ QAM cephalexin 500 mg capsule 500 mg PO TID ASK your prescriber and surgeon aspirin 81 mg PO QAM cephalexin 500 mg capsule 500 mg PO TID DO NOT take the morning of surgery metformin 1,000 mg PO BID insulin aspart U-100 100 unit/mL 5 units SQ DAILY Take morning of surgery With a small sip of water, OTHERWISE NOTHING TO EAT OR DRINK AFTER MIDNIGHT: acetaminophen [Mapap 650 mg PO Q4H PRN (okay to take up to 4 hours prior to surgery if needed) Insulin Dependent Diabetic Patients * Test your blood sugar the morning of surgery * If Blood Sugar is GREATER THAN 150, take HALF of your regular dose of: insulin glargine (U-100) 100 take 27 units * If Blood Sugar is LESS THAN 150, DO NOT TAKE ANY: insulin glargine (U-100) 100 55 units SQ QAM Other Notes If you have any questions please call us at [phone] or [phone] or [phone] or [phone]
--- NOTE | 2018-05-15 14:47 | Anesthesiology Consultation ---
Date of Service May 15, 2018 Assessment & Plan (1) Encounter for pre-operative examination: Plan: - Check BSG AM DOS - S/P left foot I&D= 02/21/18= Grade 2 view (posterior cords only), MAC#4, ETT 8.0 at [facility] Chart Review Chart Review: Patient seen in Pre Admission Testing Teaching & Discussion Pre-Anesthesia Teaching/Discussion Notes: Instructed NPO after midnight before surgery,except medications with 15 cc of water. Medication instructions provided according to the PAT guidelines. History Surgery Operation Date: 05/22/18 13:40 Proposed Procedures p Left Foot Resection of Fifth Metatarsal Head - Bharat Núñez DO Height/Weight Height: 5 ft 9 in Weight: 148.4 kg Allergies Allergy/AdvReac Type Severity Reaction Status Date / Time Penicillins Allergy Unknown UE SWELLING Verified 05/15/18 14:45 Medications Home Medications Medication Instructions Recorded Confirmed Last Taken aspirin 81 mg PO QAM 02/20/18 05/14/18 Unknown metformin 1,000 mg PO BID 02/20/18 05/14/18 Unknown acetaminophen [Mapap 650 mg PO Q4H PRN #1 tab 02/28/18 05/14/18 Unknown (acetaminophen)] insulin aspart U-100 100 unit/mL 5 units SQ DAILY 03/06/18 05/14/18 Unknown subcutaneous solution insulin glargine (U-100) 100 55 units SQ QAM ml 03/06/18 05/14/18 Unknown unit/mL (3 mL) subcutaneous pen cephalexin 500 mg capsule 500 mg PO TID #1 cap 04/13/18 05/14/18 Unknown Past Medical History Medical History Necrotizing fasciitis of ankle and foot S/P IV ANTIBIOTICS/PICC LINE/WOUND VAC DURING 02/2018 [facility] ADMISSION; NOW ON ORAL ABX Diabetic neuropathy Osteomyelitis S/P IV ANTIBIOTICS/PICC LINE/WOUND VAC DURING 02/2018 [facility] ADMISSION; NOW ON ORAL ABX Allergic rhinitis Diabetes mellitus, type 2 IDDM GERD (gastroesophageal reflux disease) OCCASIONAL Groin abscess Morbid obesity Neuropathy BILATERAL FEET AND HANDS Pancreatitis ~ Perirectal abscess Sleep apnea NO DEVICE S/P UPPP Past Surgical History Surgical History History of adenoidectomy History of colonoscopy History of tonsillectomy S/P cholecystectomy S/P foot surgery, left Status post incision and drainage Status post uvulopalatopharyngoplasty Past Anesthesia History No Hx of Anesthesia Complications and No Family Hx of Anesthesia Complications History of PONV No Motion Sickness Screening History of Motion Sickness: No Social History Smoking Status: Former smoker tobacco type: cigarettes Do You Dip or Chew Tobacco: No Smoking End Date: QUIT 20 YEARS AGO Hx Alcohol Use: No Hx Substance Use: No substance use type: does not use Exercise / Class Metabolic Activity III < 4 Walking/Shop/Light housework Review of Systems Patient denies chest pain, shortness of breath, cough, palpitations. Physical Exam Vital Signs VITALS BP 112/73 P 68 TEMP 98.1 SP02 97%RA RESP 20 Short thick neck. Trimmed hernandez. Full neck and c-spine range of motion. Full TMJ range of motion. TMD 3 finger breaths Mallampati Score 3 Dentition: intact Lungs: clear throughout to auscultation Cardiac: regular rate and rhythm, no murmurs noted Spine: normal Carotid arteries: negative bruit Extremities: no edema Testing Electrocardiogram Date: 02/20/18 Findings: + NSR @ (86) Chest X-Ray Date: 02/20/18 Findings: + NAD Mild perihilar interstitial thickening, unchanged. This is likely chronic. Laboratory Results 05/15/18 15:01 PT 10.3 Seconds (9.0-12.0) 05/15/18 15:01 INR 1.0 (0.9-1.1) 05/15/18 15:01 APTT 26.8 Seconds (21.0-31.0) 05/15/18 15:01 Urine Color Yellow 05/15/18 14:47 Urine Appearance Clear (Clear) 05/15/18 14:47 Urine pH 5.0 (4.5-7.5) 05/15/18 14:47 Ur Specific Froid 1.025 (1.000-1.030) 05/15/18 14:47 Urine Protein 2+ (Negative) H 05/15/18 14:47 Urine Glucose (UA) Negative (Negative) 05/15/18 14:47 Urine Ketones Negative (Negative) 05/15/18 14:47 Urine Nitrite Negative (Negative) 05/15/18 14:47 Ur Leukocyte Esterase Negative (Negative) 05/15/18 14:47 Urine WBC (Auto) 1-5 /hpf (0-5) 05/15/18 14:47 Urine RBC (Auto) 0-4 /hpf (0-4) 05/15/18 14:47 U Hyaline Cast (Auto) 1-5 /lpf (0-5) 05/15/18 14:47 U Epithel Cells (Auto) 0-5 /lpf (0-5) 05/15/18 14:47 Urine Bacteria (Auto) Negative (Negative) 05/15/18 14:47 04/08/18 SODIUM 135 POTASSIUM 4.6 CHLORIDE 103 CO2 24 BUN 24 CREATININE 1.14 GLUCOSE 132 03/20/18 HGBA1C 7.7%
[2018-05-15 16:14] LABS: Basophils # (auto) 0.06 K/uL (0-0.2); Basophils % (auto) 0.9 %; Eosinophils # (auto) 0.56 K/uL (0-0.5); Eosinophils % (auto) 8.5 %; Hematocrit (blood only) 37.2 % (42-52); Hemoglobin 12.5 g/dL (14.0-18.0); Immature Granulocytes # (auto) 0.03 K/uL (0.00-0.02); Immature Granulocytes % (auto) 0.5 %; Lymphocytes % (auto) 28.7 %; Mean Corpuscular Hgb Conc 33.6 g/dL (32-36); Mean Corpuscular Volume 80.2 fL (80-100); Mean Platelet Volume 9.3 fL (7.4-10.4); Monocytes # (auto) 0.49 K/uL (0.11-0.59); Monocytes % (auto) 7.4 %; Neutrophils # (auto) 3.58 K/uL (1.4-6.5); Platelet Count 194 K/uL (130-400); RDW Coefficient of Variation 14.4 % (11.5-14.5); RDW Standard Deviation 41.8 fL (36.4-46.3); Red Blood Count 4.64 M/uL (4.7-6.1); White Blood Count 6.62 K/uL (4.8-10.8)
[2018-05-15 16:19] LABS: Appearance Urine Clear (Clear); Bacteria Urine Automated Negative (Negative); Bilirubin Urine Negative (Negative); Color Urine Yellow; Epithelial Cell Urine Auto 0-5 /lpf (0-5); Glucose Urine UA Negative (Negative); Ketones Urine Negative (Negative); Leukocyte Esterase Urine Negative (Negative); Nitrite Urine Negative (Negative); Protein Urine 2+ (Negative); Specific Gravity Urine 1.025 (1.000-1.030); Urobilinogen Urine Negative (Negative)
[2018-05-15 16:24] LABS: Partial Thromboplastin Time 26.8 Seconds (21.0-31.0); Prothrombin Time 10.3 Seconds (9.0-12.0)
--- NOTE | 2018-05-21 16:23 | History & Physical Report ---
Date of Service May 21, 2018 Assessment & Plan (1) Osteomyelitis of ankle or foot, left, acute: Schedule left foot resection of 5th metatarsal head, debridement of DM ulcer. All potential risks, benefits, complications, alternatives, and rehab have been discussed with the patient and he wishes to proceed. He will be scheduled for 05.22.18. (2) Wound of left foot: History of Present Illness Chief Complaint: left foot wound Primary Care Provider: Ravi Villalta MD Patient with a hx of left foot ulceration. An MRI confirmed 5th metatarsal head osteomyelitis. He is now being set up for surgical tx with metatarsal head resection. Allergies Allergy/AdvReac Type Severity Reaction Status Date / Time Penicillins Allergy Unknown UE SWELLING Verified 05/18/18 14:06 Home Medications Home Medications Medication Instructions Recorded Confirmed Type aspirin 81 mg PO QAM 02/20/18 05/18/18 History metformin 1,000 mg PO BID 02/20/18 05/18/18 History acetaminophen [Mapap 650 mg PO Q4H PRN #1 tab 02/28/18 05/18/18 Rx (acetaminophen)] insulin aspart U-100 100 unit/mL 5 units SQ DAILY 03/06/18 05/18/18 History subcutaneous solution insulin glargine (U-100) 100 55 units SQ QAM ml 03/06/18 05/18/18 History unit/mL (3 mL) subcutaneous pen cephalexin 500 mg capsule 500 mg PO TID #1 cap 04/13/18 05/14/18 Rx Past Med/Surg History Medical History Necrotizing fasciitis of ankle and foot S/P IV ANTIBIOTICS/PICC LINE/WOUND VAC DURING 02/2018 [facility] ADMISSION; NOW ON ORAL ABX Diabetic neuropathy Osteomyelitis S/P IV ANTIBIOTICS/PICC LINE/WOUND VAC DURING 02/2018 [facility] ADMISSION; NOW ON ORAL ABX Allergic rhinitis Diabetes mellitus, type 2 IDDM GERD (gastroesophageal reflux disease) OCCASIONAL Groin abscess Morbid obesity Neuropathy BILATERAL FEET AND HANDS Pancreatitis ~ Perirectal abscess Sleep apnea NO DEVICE S/P UPPP Surgical History History of adenoidectomy History of colonoscopy History of tonsillectomy S/P cholecystectomy S/P foot surgery, left Status post incision and drainage Status post uvulopalatopharyngoplasty Social History marital status: Current Living Situation: Spouse and Family Current Living Situation Comment: and dtr/granddtr Feels Safe at Home: Yes Smoking Status: Former smoker Tobacco Type: cigarettes Hx Alcohol Use: No Hx Substance Use: No Beliefs That Will Affect Care: Temple Temple Beliefs: Temple Preferred Language: Sinhala Communication Ability: Effective Physical Exam 2 Constitutional: well developed and well nourished; no acute distress ENMT: external ear and nose normal, oropharynx normal Neck: trachea midline, no thyromegaly Respiratory: normal respiratory effort, lungs clear to auscultation Cardiovascular: Rate/Rhythm: regular rate and regular rhythm Gastrointestinal (Abdomen): normal bowel sounds, soft, nontender, no hepatosplenomegaly Musculoskeletal: Left foot: Plantar ulceration at the metatarsal head. Mild foul odor. Moderate drainage from the wound. Minimal erythema. Skin: + ulcer (left 5th metatarsal head, plantar) Psychiatric: A+Ox3, euthymic affect Lymphatic: no cervical or axillary lymphadenopathy
[~2018-05-22 10:14] MED LIST changes: +CLINDAMYCIN 600 MG/54 ML BAG IV SCH; -INSDGI SC; +LR 15ML/HR IV SCH; -METF-384 PO; -NVLGI/PEN SC; -PANT40TA PO; +ROPIVACAINE 0.5% 5 MG/ML 30 ML VIAL ONE
[2018-05-22] MEDS ORDERED: fentaNYL citrate 100 MCG/2 ML VIAL ONE (11:53)
[2018-05-22] MEDS ORDERED: MIDAZOLAM HCL 1 MG/ML 2ML VIAL ONE (11:53)
[2018-05-22] MEDS ORDERED: BACITRACIN INJ 50,000 UNIT VIAL ONE (12:45)
[2018-05-22] MEDS ORDERED: ATROPINE SULFATE 0.1 MG/ML 10ML SYR IV PRN (12:45)
[2018-05-22] MEDS ORDERED: fentaNYL citrate 100 MCG/2 ML VIAL IV PRN (12:45)
[2018-05-22] MEDS ORDERED: LABETALOL HCL IV 5 MG/ML 20ML IV PRN (12:45)
[2018-05-22] MEDS ORDERED: ONDANSETRON INJ 2 MG/ML 2 ML VIAL IV PRN ×2 (12:45→15:01)
[2018-05-22] MEDS ORDERED: BUPIVACAINE 0.5 % 5 MG/1 ML MPF 30ML VIAL ONE (12:52)
[2018-05-22] MEDS ORDERED: BUPIVACAINE/EPINEPHRINE 0.5% MPF 1:200,000 30 ML VIAL ONE (12:52)
--- NOTE | 2018-05-22 13:03 | History & Physical Bridge Note ---
Date of Service May 22, 2018 History & Physical Bridge Note I have examined the patient, reviewed the History & Physical and in the interval since the performance of the History & Physical I have noted the following changes of clinical significance: no changes noted
[2018-05-22] MEDS ORDERED: ePHEDrine sulfate 50 MG/ML AMP ONE (13:27)
[2018-05-22] MEDS ORDERED: PROPOFOL IV EMULSION 10 MG/ML 20 ML VIAL IV ONE (13:27)
[2018-05-22] MEDS ORDERED: LIDOCAINE HCL 2% 2 ML VIAL/AMP(20MG/ML) INFIL ONE (13:27)
[2018-05-22] MEDS ORDERED: SUCCINYLCHOLINE CHLORIDE 20 MG/ML 10 ML VIAL ONE (13:27)
[2018-05-22] MEDS ORDERED: ONDANSETRON INJ 2 MG/ML 2 ML VIAL ONE (13:44)
--- NOTE | 2018-05-22 14:29 | Post Operative Brief Note ---
Immediate Post Op Note v1 Date of Surgery May 22, 2018 Pre & Post Diagnosis Operation Date: 05/22/18 12:40 Pre-Op Diagnosis: (1) Osteomyelitis Left Foot fifth metatarsal (2) chronic diabetic ulcer left fifth metatarsal head separate location wound of left foot Post-Op Diagnosis: (1) Osteomyelitis Left Foot fifth metatarsal (2) chronic diabetic ulcer left fifth metatarsal head 2.5 cm x 2.5 cm separate location wound of left foot Procedure Operation Date: 05/22/18 12:40 Actual Procedures p Left Foot Resection of Fifth Metatarsal Head, Left foot chronic diabetic ulcer 2.5 cm x 2.5 cm debridement Separate Location including skin/fascia/joint capsule/ligament (Left) - Bharat Núñez DO Surgeon Bharat Núñez DO Institutional Commodity Analyst None Estimated Blood Loss 2 Findings Consistent with Post-Op Diagnosis Specimens Fifth metatarsal head left foot, aerobic anaerobic Gram stain Drains Other (1/2 inch iodoform gauze drain) Anesthesia Type General Regional Complications none Disposition Accompanied Patient To Recovery: Yes Disposition: Recovery Room
[2018-05-22] MEDS ORDERED: ZOLPIDEM TARTRATE 5 MG TAB PO PRN (14:43)
--- NOTE | 2018-05-22 14:48 | Anesthesiology Progress Note ---
Date of Service May 22, 2018 Anesthesia Post Procedure Vital Signs Vital Signs: Temp Pulse Pulse Resp BP Pulse Ox 05/22/18 14:45 75 19 135/75 96 05/22/18 14:35 76 14 136/80 100 05/22/18 14:25 78 16 128/78 100 05/22/18 14:15 36.3 C L 80 18 140/71 97 05/22/18 11:04 36.7 C 67 16 128/84 95 Notes Mental Status: alert / awake / arousable Patient Amnestic to Procedure: Yes Nausea / Vomiting: adequately controlled Pain: adequately controlled Airway Patency, RR, SpO2: stable & adequate BP & HR: stable & adequate Hydration State: stable & adequate Anesthetic Complications: no major complications apparent
[2018-05-22] MEDS ORDERED: ALUMINUM/MAGNESIUM SUSP 30 ML UDC PO PRN (15:01)
[2018-05-22] MEDS ORDERED: MoRPHine SULFATE 4 MG/ML 1 ML CARP\\VIAL IV PRN (15:01)
[2018-05-22] MEDS ORDERED: BISACODYL 10 MG SUPP PR PRN (15:01)
[2018-05-22] MEDS ORDERED: MAGNESIUM HYDROXIDE SUSP 30 ML UDC PO PRN (15:01)
[2018-05-22] MEDS ORDERED: SOD PHOSPHATE/SOD BIPHOSPHATE ENEMA 132 ML BTL PR PRN (15:01)
[2018-05-22] MEDS ORDERED: PHARMACY GLYCEMIC MGMT CONSULT PRN (15:10)
--- NOTE | 2018-05-22 15:40 | Pharmacy Report ---
Glycemic Control Consultation - Date of Service May 22, 2018 - Scope Scope: Glycemic Pharmacist consulted for glycemic control and to write orders per [facility] inpatient glycemic control protocol - Objective Weight: 145.773 kg Accuchecks BSG (last 24hrs): 05/22/18 05/22/18 11:00 14:24 POC Glucose 84 83 HbA1c: 15.1% on 10/04/17 9.1% on 02/21/18 7.7% on 03/20/18 - Recent Pertinent Medications Outpatient Anti-diabetic Regimen: * Lantus 55 units SQ AM * Novolog 5 units Daily Risk Factors for Insulin Resistance: * Recent Surgery * Diet - Assessment & Plan Assessment & Plan: ASSESSMENT: * 62yo T2DM male with rapidly improving and adequate outpatient control per recent A1c. A1c has decreased by 1/2 over 6 months which is a remarkable accomplishment. * Pt is maintained on Sq basal bolus insulin regimen as an outpatient; regimen is grossly weighted towards basal insulin. Would imagine that this basal insulin is covering prandial needs as well. However, per previous admissions patient typically requires 115-130 units of insulin per day and basal needs are around 50-55 units/day. * Pt did take his basal insulin this morning and his BSGs are slightly below inpatient targets. Will lower basal slightly. * Will utilize bolus scale similar to previous admissions PLAN FOR INPATIENT GLYCEMIC CONTROL: * Basal insulin * Lantus 50 units SQ daily in AM * Bolus insulin * NovoLog per scale ACHS or Q6hrs while NPO * Goal Range: Low 110 mg/dL - High 140 mg/dL * Correction Factor: 15 mg/dL/unit * Nutritional / Prandial insulin per carb ratio of 1 unit per 5 grams CHO consumed * Please note that the plan above was derived based on current level of insulin resistance and hospital stress. These recommendations are appropriate for inpatient admission only. Plan of care upon discharge will need to be reassessed to avoid potential outpatient hypo/hyperglycemia. Thank you.
[2018-05-22] MEDS: CEFAZOLIN 2000MG 2,000 MG/15 ML SYR IV SCH (17:49)
[2018-05-22] MEDS: INSULIN ASPART 100 UNITS/ML 3 ML PEN SC SCH ×2 (18:14→21:43)
[2018-05-22] MEDS: SODIUM CHLORIDE 0.9% 1000ML 1,000 ML IV SCH (19:10)
[2018-05-22] MEDS: ACETAMINOPHEN 500 MG TAB PO SCH (21:43)
[2018-05-22] MEDS: DOCUSATE SODIUM 100 MG CAP PO SCH (21:44)
[2018-05-22] MEDS: SENNA 8.6 MG TAB PO SCH (21:44)
[2018-05-22] MEDS: OXYCODONE HCL IR 5 MG TAB (IMMEDIATE RELEASE) PO PRN (23:59)
--- NOTE | 2018-05-23 00:08 | Operative Report ---
DATE OF OPERATION: 05/22/2018 PREOPERATIVE DIAGNOSES: 1. Left 5th metatarsal head osteomyelitis. 2. Chronic diabetic ulcer, left 5th metatarsal head region, separate location, measuring 2.5 x 2.5 cm. POSTOPERATIVE DIAGNOSES: Same. PROCEDURE: 1. Left 5th metatarsal partial distal resection. 2. Debridement diabetic ulcer, 5th metatarsal head at separate location measuring 2.5 x 2.5 cm including skin, fascia, joint capsule and ligament. SURGEON: Bharat Núñez DO BARREL COOPER: None. ANESTHESIA: General with local. SPECIMENS: Aerobic, anaerobic, Gram stain, and left 5th metatarsal head. DRAINS: One-half inch iodoform gauze. COMPLICATIONS: None. BLOOD LOSS: 2 mL. PERTINENT HISTORY: This is a 62-year-old gentleman who has had chronic progressive osteomyelitis of his left 5th metatarsal head. He had been attempting to treat this conservatively using wound care services. He continued to have persistent pain, swelling, and ulceration despite conservative management and use of assistive devices and IV antibiotics as well as oral antibiotics. He failed all measures. He had x-ray and MRI which demonstrated osteomyelitis of the left 5th metatarsal head. Patient is scheduled for surgery as indicated. All potential risks, benefits, complications, alternatives, rehab, potential for incomplete relief of symptoms, need for further surgery, DVT, PE, , persistent pain, swelling, scarring, weakness, neurovascular injury, wound complications, and possible future amputation were discussed with the patient. The patient decided to proceed with the procedure as indicated. DESCRIPTION OF PROCEDURE: The patient was taken to the operative suite and placed supine on the operative table. After review of consent and identification of proper operative site, patient was anesthetized. A pneumatic tourniquet was placed high on the left thigh over cast padding. Left lower extremity was then sterilely prepped and draped in the usual fashion, elevated. The Esmarch tourniquet was applied over sterile surgical towel at the level of the ankle without exsanguination due to the nature of the infection of the 5th metatarsal. Next, the 15-blade scalpel was used to make an incision over the dorsum of the left 5th metatarsal over the distal one-third. The incision was deepened through the subcutaneous tissue. Meticulous hemostasis was achieved with electrocautery. The 5th extensor tendon was identified and freed with a Weitlaner retractor and retracted. Next, the dorsal joint capsule was then incised with a 15-blade scalpel. There was no evidence of obvious abscess or purulence. Soft tissues were elevated and there was noted to be marked softening of the 5th metatarsal head consistent with osteomyelitis. Hohmann retractors were placed both medial and lateral to the distal aspect of the 5th metatarsal and then a sagittal saw was then used to resect the distal one-third of the left 5th metatarsal with an oblique osteotomy. Next, a McGlamry elevator was used to free soft tissue and then a large rongeur was then used to resect the left 5th metatarsal head and distal shaft. This was then sent for specimen and cultures were obtained, aerobic, anaerobic, and Gram stain. Next, it was copiously irrigated with bulb syringe, sterile saline, and bacitracin, approximately 1 liter. Next, the incision was then packed with 0.5 inch iodoform gauze and then closed using 3-0 nylon sutures. Next, attention was then directed toward the plantar aspect of the left 5th metatarsal, separate site measuring 2.5 x 2.5 cm. This large plantar ulcer was then debrided first with a 15-blade scalpel including the skin, fascia, joint capsule, and ligament as exposed. This was then irrigated with sterile normal saline with bacitracin and then the curette was then used to encourage bleeding of the soft tissue and local granulation tissue in the plantar aspect of the left foot. Once this was completed, the foot was irrigated until clear and then a sterile compressive forefoot dressing was applied overwrapped with Xeroform gauze, sterile 4 x 4's, ABD pad, cast padding, and an Roly wrap. The tourniquet was released and the patient was awakened and taken to recovery in stable condition after injection locally of 0.5% Marcaine plain, approximately 15 mL. I attest to the content of the Intraoperative Record and any orders documented therein. Any exception s are noted below.
[2018-05-23] MEDS: CEFAZOLIN 2000MG 2,000 MG/15 ML SYR IV SCH ×3 (02:16→18:52)
[2018-05-23] MEDS: SODIUM CHLORIDE 0.9% 1000ML 1,000 ML IV SCH ×3 (04:51→23:47)
[2018-05-23] MEDS: ACETAMINOPHEN 500 MG TAB PO SCH ×3 (05:00→21:40)
[2018-05-23 06:16] LABS: Basophils # (auto) 0.02 K/uL (0-0.2); Basophils % (auto) 0.3 %; Eosinophils # (auto) 0.45 K/uL (0-0.5); Eosinophils % (auto) 6.6 %; Hematocrit (blood only) 35.7 % (42-52); Immature Granulocytes # (auto) 0.02 K/uL (0.00-0.02); Immature Granulocytes % (auto) 0.3 %; Lymphocytes # (auto) 1.53 K/uL (1.2-3.4); Lymphocytes % (auto) 22.3 %; Mean Corpuscular Hgb Conc 33.6 g/dL (32-36); Mean Corpuscular Volume 81.1 fL (80-100); Mean Platelet Volume 9.2 fL (7.4-10.4); Monocytes # (auto) 0.68 K/uL (0.11-0.59); Monocytes % (auto) 9.9 %; Neutrophils # (auto) 4.15 K/uL (1.4-6.5); Neutrophils % (auto) 60.6 %; Platelet Count 155 K/uL (130-400); RDW Coefficient of Variation 14.1 % (11.5-14.5); RDW Standard Deviation 41.6 fL (36.4-46.3); White Blood Count 6.85 K/uL (4.8-10.8)
--- NOTE | 2018-05-23 07:36 | Orthopedic Progress Note ---
Date of Service May 23, 2018 Assessment & Plan (1) Osteomyelitis of ankle or foot, left, acute: 62 yo male stable POD #1 s/p partial excision left 5th metatarsal 1. Med management 2. DVT prophylaxis- ASA, SCDs 3. D/C planning Subjective Pt resting in bed, pain controlled, denies complaints Physical Exam 2 Vital Signs (Past 24 Hours): Last Vital Signs Temp 36.5 C 05/23/18 07:02 Pulse 84 05/23/18 07:02 Resp 18 05/23/18 07:02 BP 162/96 H 05/23/18 07:02 Pulse Ox 98 05/23/18 07:02 Physical Exam: Dressing left foot clean, intact Results & Data Laboratory Results 05/23/18 05/22/18 05/22/18 Range/Units 05:09 20:37 16:26 WBC 6.85 (4.8-10.8) K/uL RBC 4.40 L (4.7-6.1) M/uL Hgb 12.0 L (14.0-18.0) g/dL Hct 35.7 L (42-52) % MCV 81.1 (80-100) fL MCH 27.3 (25-34) pg MCHC 33.6 (32-36) g/dL RDW Std Deviation 41.6 (36.4-46.3) fL RDW Coeff of Mejia 14.1 (11.5-14.5) % Plt Count 155 (130-400) K/uL MPV 9.2 (7.4-10.4) fL Immature Gran % (Auto) 0.3 % Neut % (Auto) 60.6 % Lymph % (Auto) 22.3 % Osborne % (Auto) 9.9 % Eos % (Auto) 6.6 % Baso % (Auto) 0.3 % Immature Gran # (Auto) 0.02 (0.00-0.02) K/uL Neut # (Auto) 4.15 (1.4-6.5) K/uL Lymph # (Auto) 1.53 (1.2-3.4) K/uL Osborne # (Auto) 0.68 H (0.11-0.59) K/uL Eos # (Auto) 0.45 (0-0.5) K/uL Baso # (Auto) 0.02 (0-0.2) K/uL POC Glucose 102 H 87 (70-99) 05/22/18 05/22/18 Range/Units 14:24 11:00 WBC (4.8-10.8) K/uL RBC (4.7-6.1) M/uL Hgb (14.0-18.0) g/dL Hct (42-52) % MCV (80-100) fL MCH (25-34) pg MCHC (32-36) g/dL RDW Std Deviation (36.4-46.3) fL RDW Coeff of Mejia (11.5-14.5) % Plt Count (130-400) K/uL MPV (7.4-10.4) fL Immature Gran % (Auto) % Neut % (Auto) % Lymph % (Auto) % Osborne % (Auto) % Eos % (Auto) % Baso % (Auto) % Immature Gran # (Auto) (0.00-0.02) K/uL Neut # (Auto) (1.4-6.5) K/uL Lymph # (Auto) (1.2-3.4) K/uL Osborne # (Auto) (0.11-0.59) K/uL Eos # (Auto) (0-0.5) K/uL Baso # (Auto) (0-0.2) K/uL POC Glucose 83 84 (70-99)
--- NOTE | 2018-05-23 08:34 | Anesthesiology Progress Note ---
Date of Service May 23, 2018 Anesthesia Post Procedure Vital Signs Vital Signs: Temp Pulse Pulse Resp BP Pulse Ox 05/23/18 07:02 36.5 C 84 18 162/96 H 98 05/23/18 03:05 36.4 C L 73 16 96/57 L 96 05/22/18 23:10 36.6 C 73 16 113/75 97 05/22/18 20:00 36.4 C L 74 20 111/62 96 05/22/18 18:20 36.4 C L 76 20 121/77 98 05/22/18 17:20 36.3 C L 72 18 114/67 98 05/22/18 16:50 36.4 C L 73 18 107/59 L 99 05/22/18 16:20 36.4 C L 16 148/82 H 94 05/22/18 15:41 36.2 C L 72 16 137/74 95 05/22/18 15:00 36.2 C L 74 16 149/85 H 96 05/22/18 14:55 36.2 C L 75 16 134/76 95 05/22/18 14:45 75 19 135/75 96 05/22/18 14:35 76 14 136/80 100 05/22/18 14:25 78 16 128/78 100 05/22/18 14:15 36.3 C L 80 18 140/71 97 05/22/18 11:04 36.7 C 67 16 128/84 95 Notes Mental Status: alert / awake / arousable Patient Amnestic to Procedure: Yes Nausea / Vomiting: adequately controlled Pain: adequately controlled Airway Patency, RR, SpO2: stable & adequate BP & HR: stable & adequate Hydration State: stable & adequate Anesthetic Complications: no major complications apparent and Pt Satisfied with anesthetic care
[2018-05-23] MEDS ORDERED: INSULIN GLARGINE SOLOSTAR 100 UNITS/ML 3 ML PEN SQ SCH (09:00)
[2018-05-23] MEDS ORDERED: INSULIN GLARGINE SOLOSTAR 100 UNITS/ML 3 ML PEN SC SCH (09:00)
[2018-05-23] MEDS ORDERED: INSULIN ASPART U SQ SCH (09:00)
[2018-05-23] MEDS: DOCUSATE SODIUM 100 MG CAP PO SCH ×2 (09:18→21:40)
[2018-05-23] MEDS: MULTIVITAMIN TAB PO SCH (09:18)
[2018-05-23] MEDS: ASPIRIN 81 MG ECTAB PO SCH (09:18)
[2018-05-23] MEDS: INSULIN ASPART 100 UNITS/ML 3 ML PEN SC SCH ×4 (09:23→21:47)
--- NOTE | 2018-05-23 12:57 | Infectious Disease Consult ---
Date of Consultation May 23, 2018 Assessment & Plan (1) Osteomyelitis of ankle or foot, left, acute: Patient with osteomyelitis of the left foot now status post surgical resection with previous culture positive for staph aureus and Streptococcus. Cefazolin appropriate therapy for now, may not require prolonged IV antibiotics given resection of infected bone. Will discuss with all involved. Will follow. (2) Foot ulcer due to secondary DM: History of Present Illness Reason for Consultation: Left foot osteomyelitis, status post metatarsal head resection Attending Physician: Bharat Núñez DO History of Present Illness 62-year-old male with long-standing diabetes mellitus with peripheral neuropathy , with chronic left foot ulceration, followed at the wound care center, with previous cultures positive for staph aureus and Streptococcus, maintained on cephalexin therapy, who was recently found on MRI scan to have osteomyelitis of the head of the left fifth metatarsal, and is now undergone surgical resection. Patient has expected postoperative discomfort, otherwise offers no new specific complaints. Operative cultures are no growth to date.Patient currently on IV cefazolin, tolerating without apparent difficulty. Denies any pain in foot. Allergies Allergy/AdvReac Type Severity Reaction Status Date / Time Penicillins Allergy Unknown UE SWELLING Verified 05/22/18 10:59 Home Medications Home Medications Medication Instructions Recorded Confirmed Type aspirin 81 mg PO QAM 02/20/18 05/22/18 History metformin 1,000 mg PO BID 02/20/18 05/22/18 History acetaminophen [Mapap 650 mg PO Q4H PRN #1 tab 02/28/18 05/22/18 Rx (acetaminophen)] insulin aspart U-100 100 unit/mL 5 units SQ DAILY 03/06/18 05/22/18 History subcutaneous solution insulin glargine (U-100) 100 55 units SQ QAM ml 03/06/18 05/22/18 History unit/mL (3 mL) subcutaneous pen cephalexin 500 mg capsule 500 mg PO TID #1 cap 04/13/18 05/22/18 Rx Patient History Medical History Necrotizing fasciitis of ankle and foot S/P IV ANTIBIOTICS/PICC LINE/WOUND VAC DURING 02/2018 [facility] ADMISSION; NOW ON ORAL ABX Diabetic neuropathy Osteomyelitis S/P IV ANTIBIOTICS/PICC LINE/WOUND VAC DURING 02/2018 [facility] ADMISSION; NOW ON ORAL ABX Allergic rhinitis Diabetes mellitus, type 2 IDDM GERD (gastroesophageal reflux disease) OCCASIONAL Groin abscess Morbid obesity Neuropathy BILATERAL FEET AND HANDS Pancreatitis ~ Perirectal abscess Sleep apnea NO DEVICE S/P UPPP Surgical History History of adenoidectomy History of colonoscopy History of tonsillectomy S/P cholecystectomy S/P foot surgery, left Status post incision and drainage Status post uvulopalatopharyngoplasty Social History marital status: Current Living Situation: Spouse and Family Current Living Situation Comment: and dtr/granddtr Other Information That Helps Us Care for You: No Feels Safe at Home: Yes Safety Concerns: Feels Safe At This Time Smoking Status: Former smoker Tobacco Type: cigarettes Do You Dip or Chew Tobacco: No Smoking End Date: QUIT 20 YEARS AGO Hx Alcohol Use: No Hx Substance Use: No Beliefs That Will Affect Care: Restorationist Restorationist Beliefs: Jew Communication Ability: Effective Review of Systems All systems were reviewed and are negative except as per HPI Physical Exam 2 Vital Signs (Past 24 Hours): Last Vital Signs Temp 36.7 C 05/23/18 12:00 Pulse 69 05/23/18 12:00 Resp 17 05/23/18 12:00 BP 131/78 05/23/18 12:00 Pulse Ox 99 05/23/18 12:00 Constitutional: WD/WN, vitals as above comfortable; no acute distress Eyes: PERRL, conjunctivae normal, anicteric sclerae ENMT: external ear and nose normal, oropharynx normal Neck: trachea midline, no thyromegaly neck nontender Respiratory: normal respiratory effort, lungs clear to auscultation normal percussion; does not use accessory muscles Cardiovascular: Rate/Rhythm: regular rate and regular rhythm Heart Sounds: normal S1 and normal S2; no gallop, no murmur and no cardiac rub Vessels: normal peripheral pulses; no JVD Gastrointestinal (Abdomen): normal bowel sounds, soft, nontender, no hepatosplenomegaly Musculoskeletal: no cyanosis or clubbing, extremities motor strength 5/5 Spine: thoracic spine normal to inspection and lumbar spine normal to inspection ; no cervical spinal tenderness Skin: no rashes, warm and dry normal turgor Surgical dressing intact left foot Neurologic: moves all extremities and awake; no focal motor deficits Decreased sensation of both feet Psychiatric: A+Ox3, euthymic affect Orientation: cooperative Lymphatic: no cervical or axillary lymphadenopathy no inguinal lymphadenopathy Results & Data Laboratory Results Short CBC 05/23/18 Range/Units 05:09 WBC 6.85 (4.8-10.8) K/uL Hgb 12.0 L (14.0-18.0) g/dL Hct 35.7 L (42-52) % Plt Count 155 (130-400) K/uL Diagnostic Findings Microbiology 05/22/18 02:00 Toe,Left Fifth Gram Stain - Final 05/22/18 02:00 Toe,Left Fifth Aerobic and Anaerobic Culture - Preliminary No growth to date. 05/15/18 15:01 Urine,Clean Catch Urine Culture - Final No growth - less than 1,000 colonies/mL.
[2018-05-23] MEDS ORDERED: GLUCOSE 10 TABS/TUBE PO PRN (13:29)
[2018-05-23] MEDS ORDERED: DEXTROSE 50% 50 ML SYRINGE IV PRN (13:29)
[2018-05-23] MEDS ORDERED: CARBOHYDRATES FOR HYPOGLYCEMIA PO PRN (13:29)
[2018-05-23] MEDS ORDERED: GLUCOSE 40% GEL 15 GM TUBE PO PRN (13:29)
[2018-05-23] MEDS ORDERED: GLUCAGON FOR INJ 1 MG VIAL IM PRN (13:29)
[2018-05-23] MEDS ORDERED: METFORMIN HCL 500 MG TAB PO SCH (21:00)
[2018-05-23] MEDS: SENNA 8.6 MG TAB PO SCH (21:40)
[2018-05-24] MEDS: CEFAZOLIN 2000MG 2,000 MG/15 ML SYR IV SCH ×3 (01:48→18:14)
[2018-05-24] MEDS: ACETAMINOPHEN 500 MG TAB PO SCH ×3 (05:38→21:11)
[2018-05-24 05:47] LABS: Basophils # (auto) 0.03 K/uL (0-0.2); Basophils % (auto) 0.4 %; Eosinophils # (auto) 0.48 K/uL (0-0.5); Immature Granulocytes # (auto) 0.01 K/uL (0.00-0.02); Immature Granulocytes % (auto) 0.1 %; Lymphocytes # (auto) 1.62 K/uL (1.2-3.4); Lymphocytes % (auto) 23.6 %; Mean Corpuscular Hgb Conc 33.3 g/dL (32-36); Mean Corpuscular Volume 81.3 fL (80-100); Mean Platelet Volume 8.8 fL (7.4-10.4); Monocytes # (auto) 0.57 K/uL (0.11-0.59); Monocytes % (auto) 8.3 %; Neutrophils # (auto) 4.16 K/uL (1.4-6.5); Neutrophils % (auto) 60.6 %; Platelet Count 154 K/uL (130-400); RDW Coefficient of Variation 14.1 % (11.5-14.5); RDW Standard Deviation 41.9 fL (36.4-46.3); Red Blood Count 4.43 M/uL (4.7-6.1); White Blood Count 6.87 K/uL (4.8-10.8)
--- NOTE | 2018-05-24 08:57 | Pharmacy Report ---
Pharmacy Glycemic Short Note 2 - Date of Service May 24, 2018 - Glycemic Short BSG Results (Last 24 hours): 05/23/18 05/23/18 05/23/18 11:55 16:55 17:14 POC Glucose 120 H 71 69 L* 05/23/18 05/23/18 05/23/18 17:16 17:30 20:21 POC Glucose 66 L* 71 145 H 05/24/18 08:27 POC Glucose 98 OUTPATIENT ANTIDIABETIC REGIMEN: * A1C: * 15.1% on 10/04/17 * 9.1% on 02/21/18 * 7.7% on 03/20/18 * Lantus 55 units SQ AM * Novolog 5 units Daily ASSESSMENT: * Blood sugar dropped to 66mg/dL yesterday prior to dinner * Decrease Lantus and loosen CF and CR * Pt remains on Ancef, followed by ID PLAN FOR INPATIENT GLYCEMIC CONTROL: * Hold outpatient oral diabetes medications * Basal insulin - decrease * Lantus 44 units SQ daily * Bolus insulin * NovoLog per scale ACHS or Q6hrs while NPO * Goal Range: Low 110 mg/dL - High 140 mg/dL * loosen: Correction Factor: 20 mg/dL/unit * loosen: Nutritional / Prandial insulin per carb ratio of 1 unit per 6 grams CHO consumed PLAN FOR DISCHARGE: * A1c significantly improved over past 6 months, continue current regimen and titration per outpatient provider.
[2018-05-24] MEDS ORDERED: INSULIN GLARGINE SOLOSTAR 100 UNITS/ML 3 ML PEN SC SCH (09:00)
[2018-05-24] MEDS: ASPIRIN 81 MG ECTAB PO SCH (09:04)
[2018-05-24] MEDS: MULTIVITAMIN TAB PO SCH (09:04)
[2018-05-24] MEDS: DOCUSATE SODIUM 100 MG CAP PO SCH ×2 (09:05→21:11)
[2018-05-24] MEDS: INSULIN ASPART 100 UNITS/ML 3 ML PEN SC SCH ×4 (09:08→21:10)
[2018-05-24] MEDS: SODIUM CHLORIDE 0.9% 1000ML 1,000 ML IV SCH ×2 (10:04→19:51)
--- NOTE | 2018-05-24 13:46 | Orthopedic Progress Note ---
Date of Service May 24, 2018 Assessment & Plan (1) Osteomyelitis of ankle or foot, left, acute: 62 yo male stable POD #2 s/p partial excision left 5th metatarsal 1. Med management- cont IV ancef 2. DVT prophylaxis- ASA, SCDs 3. D/C plannin -probable d/c home tomorrow on po abx Subjective Pt resting in chair, pain controlled, denies complaints Physical Exam 2 Vital Signs (Past 24 Hours): Last Vital Signs Temp 36.4 C L 05/24/18 07:00 Pulse 65 05/24/18 07:00 Resp 18 05/24/18 07:00 BP 153/92 H 05/24/18 07:00 Pulse Ox 97 05/24/18 07:00 Physical Exam: Dressing changed, packing pulled, new dressing applied
[2018-05-24] MEDS: SENNA 8.6 MG TAB PO SCH (21:11)
[2018-05-25] MEDS: CEFAZOLIN 2000MG 2,000 MG/15 ML SYR IV SCH ×3 (02:14→16:30)
[2018-05-25 05:56] LABS: Basophils # (auto) 0.04 K/uL (0-0.2); Basophils % (auto) 0.6 %; Eosinophils # (auto) 0.44 K/uL (0-0.5); Eosinophils % (auto) 6.6 %; Hemoglobin 11.8 g/dL (14.0-18.0); Immature Granulocytes # (auto) 0.02 K/uL (0.00-0.02); Immature Granulocytes % (auto) 0.3 %; Lymphocytes # (auto) 1.74 K/uL (1.2-3.4); Lymphocytes % (auto) 26.2 %; Mean Corpuscular Hgb Conc 33.7 g/dL (32-36); Mean Corpuscular Volume 81.2 fL (80-100); Mean Platelet Volume 8.8 fL (7.4-10.4); Monocytes # (auto) 0.46 K/uL (0.11-0.59); Monocytes % (auto) 6.9 %; Neutrophils # (auto) 3.94 K/uL (1.4-6.5); Neutrophils % (auto) 59.4 %; Platelet Count 151 K/uL (130-400); RDW Standard Deviation 41.7 fL (36.4-46.3); Red Blood Count 4.31 M/uL (4.7-6.1); White Blood Count 6.64 K/uL (4.8-10.8)
[2018-05-25] MEDS: ACETAMINOPHEN 500 MG TAB PO SCH ×3 (05:58→21:15)
[2018-05-25] MEDS: SODIUM CHLORIDE 0.9% 1000ML 1,000 ML IV SCH ×2 (05:59→15:44)
--- NOTE | 2018-05-25 08:24 | Anesthesiology Progress Note ---
Date of Service May 25, 2018 Anesthesia Post Procedure Vital Signs Vital Signs: Temp Pulse Resp BP BP Pulse Ox 05/25/18 06:43 36.4 C L 65 18 131/79 96 05/24/18 23:00 36.7 C 70 18 145/75 H 96 05/24/18 14:53 36.7 C 67 18 113/70 99 Pain Intensity Left Foot: Pain Intensity: 0 Notes Mental Status: alert / awake / arousable and participated in evaluation Nausea / Vomiting: adequately controlled Pain: adequately controlled Airway Patency, RR, SpO2: stable & adequate BP & HR: stable & adequate Hydration State: stable & adequate
[2018-05-25] MEDS: INSULIN ASPART 100 UNITS/ML 3 ML PEN SC SCH ×4 (08:45→20:35)
[2018-05-25] MEDS: INSULIN GLARGINE SOLOSTAR 100 UNITS/ML 3 ML PEN SC SCH (08:45)
[2018-05-25] MEDS: DOCUSATE SODIUM 100 MG CAP PO SCH ×2 (08:46→20:31)
[2018-05-25] MEDS: MULTIVITAMIN TAB PO SCH (08:46)
[2018-05-25] MEDS: ASPIRIN 81 MG ECTAB PO SCH (08:47)
--- NOTE | 2018-05-25 11:49 | Orthopedic Progress Note ---
Date of Service May 25, 2018 Assessment & Plan (1) Osteomyelitis of ankle or foot, left, acute: 62 yo male stable POD #3 s/p partial excision left 5th metatarsal 1. Med management- cont IV ancef; Dr Calero to decide for IV vs PO antibx 2. DVT prophylaxis- ASA, SCDs 3. D/C planning - Pt talking about going to Rehab. CM to discuss with pt. Subjective POD 3 s/p partial excision left fifth metartasal. Pt sitting in chair upon arrival. Awake, alert. No complaints. Pt able to get into bed on his own. Physical Exam 2 Vital Signs (Past 24 Hours): Last Vital Signs Temp 36.4 C L 05/25/18 06:43 Pulse 65 05/25/18 06:43 Resp 18 05/25/18 06:43 BP 131/79 05/25/18 06:43 Pulse Ox 96 05/25/18 06:43 Physical Exam: Dressing changed. Incision benign. Eschar noted over plantar surface of foot. No active bleeding. Cap refill less than 2 seconds.
[2018-05-25] MEDS: OXYCODONE HCL IR 5 MG TAB (IMMEDIATE RELEASE) PO PRN (13:41)
--- NOTE | 2018-05-25 13:51 | Pharmacy Report ---
Pharmacy Glycemic Short Note 2 - Date of Service May 25, 2018 - Glycemic Short BSG Results (Last 24 hours): 05/24/18 05/24/18 05/24/18 17:02 20:27 20:58 POC Glucose 100 H 74 85 05/25/18 05/25/18 07:58 11:54 POC Glucose 111 H 145 H OUTPATIENT ANTIDIABETIC REGIMEN: * A1c: * 15.1% on 10/04/17 * 9.1% on 02/21/18 * 7.7% on 03/20/18 * Lantus 55 units SC qAM * Novolog 5 units daily * Metformin 1000mg BID ASSESSMENT: * BG ranged 74-120 past 24 hours. No hypoglycemia noted yesterday (he was hypoglycemic pre-dinner on 05/23/18). However, patient seems to be trending lower despite changes made yesterday, therefore will decrease Lantus and loosen Novolog again to prevent hypoglycemic events. * Pt remains on Ancef, followed by ID PLAN FOR INPATIENT GLYCEMIC CONTROL: * Hold outpatient oral diabetes medications * Basal insulin - decrease * Lantus 40 units SC daily * Bolus insulin * NovoLog per scale ACHS or Q6hrs while NPO * Goal Range: Low 110 mg/dL - High 140 mg/dL * loosen: Correction Factor: 25 mg/dL/unit * loosen: Nutritional / Prandial insulin per carb ratio of 1 unit per 7 grams CHO consumed PLAN FOR DISCHARGE: * A1c significantly improved over past 6 months, continue current regimen and titration per outpatient provider.
--- NOTE | 2018-05-25 14:32 | Infectious Disease Progress Nt ---
Date of Service May 25, 2018 Assessment & Plan (1) Osteomyelitis of ankle or foot, left, acute: Patient with osteomyelitis of the left foot now status post surgical resection with previous culture positive for staph aureus and Streptococcus. Cefazolin appropriate therapy for now, would transition to oral cefadroxil 1 g twice daily upon discharge or transfer to rehab. Will follow. (2) Foot ulcer due to secondary DM: Subjective Patient seen in follow-up for osteomyelitis. Appears comfortable postoperatively, offers no new complaints. Remains afebrile. White count normal. Cultures have grown only coagulase-negative staph. Review of Systems All systems reviewed & are unremarkable except as noted in HPI & below Physical Exam 2 Vital Signs (Past 24 Hours): Last Vital Signs Temp 36.4 C L 05/25/18 06:43 Pulse 65 05/25/18 06:43 Resp 18 05/25/18 06:43 BP 131/79 05/25/18 06:43 Pulse Ox 96 05/25/18 06:43 Constitutional: WD/WN, vitals as above comfortable; no acute distress Eyes: PERRL, conjunctivae normal, anicteric sclerae ENMT: external ear and nose normal, oropharynx normal Neck: trachea midline, no thyromegaly neck nontender Respiratory: normal respiratory effort, lungs clear to auscultation normal percussion; does not use accessory muscles Cardiovascular: Rate/Rhythm: regular rate and regular rhythm Heart Sounds: normal S1 and normal S2; no gallop, no murmur and no cardiac rub Vessels: normal peripheral pulses; no JVD Gastrointestinal (Abdomen): normal bowel sounds, soft, nontender, no hepatosplenomegaly Musculoskeletal: no cyanosis or clubbing, extremities motor strength 5/5 Spine: thoracic spine normal to inspection and lumbar spine normal to inspection ; no cervical spinal tenderness Skin: no rashes, warm and dry normal turgor Surgical site appears clean Neurologic: moves all extremities and awake; no focal motor deficits Psychiatric: A+Ox3, euthymic affect Orientation: cooperative Lymphatic: no cervical or axillary lymphadenopathy no inguinal lymphadenopathy Results & Data Laboratory Results Short CBC 05/25/18 Range/Units 05:24 WBC 6.64 (4.8-10.8) K/uL Hgb 11.8 L (14.0-18.0) g/dL Hct 35.0 L (42-52) % Plt Count 151 (130-400) K/uL Diagnostic Findings Microbiology 05/22/18 02:00 Toe,Left Fifth Gram Stain - Final 05/22/18 02:00 Toe,Left Fifth Aerobic and Anaerobic Culture - Preliminary Coag negative Staphylococcus 05/15/18 15:01 Urine,Clean Catch Urine Culture - Final No growth - less than 1,000 colonies/mL.
[2018-05-25] MEDS: SENNA 8.6 MG TAB PO SCH (20:31)
[2018-05-26] MEDS: CEFAZOLIN 2000MG 2,000 MG/15 ML SYR IV SCH ×3 (01:41→17:13)
[2018-05-26 05:58] LABS: Basophils # (auto) 0.03 K/uL (0-0.2); Basophils % (auto) 0.5 %; Eosinophils # (auto) 0.53 K/uL (0-0.5); Eosinophils % (auto) 8.7 %; Hematocrit (blood only) 35.4 % (42-52); Hemoglobin 12.2 g/dL (14.0-18.0); Immature Granulocytes # (auto) 0.01 K/uL (0.00-0.02); Immature Granulocytes % (auto) 0.2 %; Lymphocytes # (auto) 2.18 K/uL (1.2-3.4); Lymphocytes % (auto) 35.9 %; Mean Corpuscular Hgb Conc 34.5 g/dL (32-36); Mean Corpuscular Volume 79.7 fL (80-100); Mean Platelet Volume 8.9 fL (7.4-10.4); Monocytes # (auto) 0.33 K/uL (0.11-0.59); Monocytes % (auto) 5.4 %; Neutrophils % (auto) 49.3 %; Platelet Count 155 K/uL (130-400); RDW Coefficient of Variation 13.8 % (11.5-14.5); RDW Standard Deviation 39.6 fL (36.4-46.3); Red Blood Count 4.44 M/uL (4.7-6.1); White Blood Count 6.08 K/uL (4.8-10.8)
[2018-05-26] MEDS: ACETAMINOPHEN 500 MG TAB PO SCH ×3 (05:58→21:25)
[2018-05-26] MEDS: MULTIVITAMIN TAB PO SCH (08:41)
[2018-05-26] MEDS: ASPIRIN 81 MG ECTAB PO SCH (08:41)
[2018-05-26] MEDS: DOCUSATE SODIUM 100 MG CAP PO SCH ×2 (08:41→21:25)
[2018-05-26] MEDS: INSULIN ASPART 100 UNITS/ML 3 ML PEN SC SCH ×4 (08:44→21:27)
[2018-05-26] MEDS: INSULIN GLARGINE SOLOSTAR 100 UNITS/ML 3 ML PEN SC SCH (08:45)
--- NOTE | 2018-05-26 13:15 | Orthopedic Progress Note ---
Date of Service May 26, 2018 Assessment & Plan (1) Osteomyelitis of ankle or foot, left, acute: 62 yo male stable POD #4 s/p partial excision left 5th metatarsal 1. Med management- cont IV ancef; Dr Calero recommends switching to cefadroxil on discharge 2. DVT prophylaxis- ASA, SCDs 3. D/C planning -will d/c to rehab when approved Subjective POD 4 s/p partial excision left fifth metartasal. Pt sitting in chair upon arrival. Awake, alert. No complaints. denies CP/SOB, denies Calf pain Physical Exam 2 Vital Signs (Past 24 Hours): Last Vital Signs Temp 36.4 C L 05/26/18 07:00 Pulse 60 05/26/18 07:00 Resp 18 05/26/18 07:00 BP 163/91 H 05/26/18 07:00 Pulse Ox 96 05/26/18 07:00 Constitutional: WD/WN, vitals as above no acute distress Musculoskeletal: Dressing clean dry and intact, no drainage, cap refill less than 2 seconds
--- NOTE | 2018-05-26 13:25 | Pharmacy Report ---
Pharmacy Glycemic Short Note 2 - Date of Service May 26, 2018 - Glycemic Short BSG Results (Last 24 hours): 05/25/18 05/25/18 05/26/18 17:05 20:34 08:14 POC Glucose 92 99 129 H 05/26/18 12:21 POC Glucose 161 H OUTPATIENT ANTIDIABETIC REGIMEN: * A1c: * 15.1% on 10/04/17 * 9.1% on 02/21/18 * 7.7% on 03/20/18 * Lantus 55 units SC qAM * Novolog 5 units daily * Metformin 1000mg BID ASSESSMENT: * POD #4 s/p partial excision left 5th metatarsal * Excellent BSG over the past 24 hours - pt administered 59 units of insulin on 05/25 * Fasting BSG of 129 mg/dL is at goal, therefore no changes to basal insulin today * Post prandial BSGs are trending downward, therefore Novolog carb ratio will be loosened PLAN FOR INPATIENT GLYCEMIC CONTROL: * Hold outpatient oral diabetes medications * Basal insulin * Lantus 40 units SC daily * Bolus insulin - loosen carb ratio * NovoLog per scale ACHS or Q6hrs while NPO * Goal Range: Low 110 mg/dL - High 140 mg/dL * loosen: Correction Factor: 25 mg/dL/unit * loosen: Nutritional / Prandial insulin per carb ratio of 1 unit per 9 grams CHO consumed PLAN FOR DISCHARGE: * A1c significantly improved over past 6 months, continue current regimen and titration per outpatient provider.
[2018-05-26] MEDS: SENNA 8.6 MG TAB PO SCH (21:25)
[2018-05-27] MEDS: CEFAZOLIN 2000MG 2,000 MG/15 ML SYR IV SCH ×3 (01:27→18:42)
[2018-05-27] MEDS: ACETAMINOPHEN 500 MG TAB PO SCH ×3 (05:32→21:01)
[2018-05-27 06:46] LABS: Basophils # (auto) 0.04 K/uL (0-0.2); Basophils % (auto) 0.6 %; Eosinophils # (auto) 0.46 K/uL (0-0.5); Eosinophils % (auto) 7.5 %; Hematocrit (blood only) 36.3 % (42-52); Hemoglobin 12.4 g/dL (14.0-18.0); Immature Granulocytes # (auto) 0.01 K/uL (0.00-0.02); Immature Granulocytes % (auto) 0.2 %; Lymphocytes # (auto) 1.67 K/uL (1.2-3.4); Lymphocytes % (auto) 27.1 %; Mean Corpuscular Hgb Conc 34.2 g/dL (32-36); Mean Corpuscular Volume 78.7 fL (80-100); Mean Platelet Volume 8.6 fL (7.4-10.4); Monocytes # (auto) 0.34 K/uL (0.11-0.59); Monocytes % (auto) 5.5 %; Neutrophils # (auto) 3.64 K/uL (1.4-6.5); Neutrophils % (auto) 59.1 %; Platelet Count 171 K/uL (130-400); RDW Coefficient of Variation 13.7 % (11.5-14.5); RDW Standard Deviation 38.6 fL (36.4-46.3); Red Blood Count 4.61 M/uL (4.7-6.1); White Blood Count 6.16 K/uL (4.8-10.8)
[2018-05-27] MEDS: ASPIRIN 81 MG ECTAB PO SCH (08:50)
[2018-05-27] MEDS: DOCUSATE SODIUM 100 MG CAP PO SCH ×2 (08:50→21:01)
[2018-05-27] MEDS: INSULIN GLARGINE SOLOSTAR 100 UNITS/ML 3 ML PEN SC SCH ×2 (08:51→08:59)
[2018-05-27] MEDS: MULTIVITAMIN TAB PO SCH (08:51)
[2018-05-27] MEDS: INSULIN ASPART 100 UNITS/ML 3 ML PEN SC SCH ×4 (08:51→20:53)
--- NOTE | 2018-05-27 10:03 | Orthopedic Progress Note ---
Date of Service May 27, 2018 Assessment & Plan (1) Osteomyelitis of ankle or foot, left, acute: 62 yo male stable POD #5 s/p partial excision left 5th metatarsal 1. Med management- cont IV ancef; Dr Calero recommends switching to cefadroxil on discharge 2. DVT prophylaxis- ASA, SCDs 3. D/C planning -patient has been changed to WBAT on his heel, in which case would be able to return home. will plan on likely dc tomorrow to home. Subjective POD 5 s/p partial excision left fifth metartasal. Pt resting comfortably in bed, denies CP/SOB. denies fever chills nausea. denies Calf pain Physical Exam 2 Vital Signs (Past 24 Hours): Last Vital Signs Temp 36.4 C L 05/27/18 07:31 Pulse 63 05/27/18 07:31 Resp 16 05/27/18 07:31 BP 161/89 H 05/27/18 07:31 Pulse Ox 98 05/27/18 07:31 Constitutional: WD/WN, vitals as above no acute distress Musculoskeletal: Dressing clean dry and intact, no drainage, cap refill less than 2 seconds Results & Data Laboratory Results Vital Signs Temp 36.4 C L 05/27/18 07:31 Pulse 63 05/27/18 07:31 Resp 16 05/27/18 07:31 BP 161/89 H 05/27/18 07:31 Pulse Ox 98 05/27/18 07:31 Intake & Output 05/26/18 05/27/18 05/27/18 18:59 06:59 18:59 Intake Total 550 / 550 Output Total 975 / 975 1650 / 1650 Balance -425 / -425 -1650 / -1650 Weight 145.8 kg Intake: Oral 550 / 550 Output: Urine 975 / 975 1650 / 1650 Laboratory Results WBC 6.16 K/uL (4.8-10.8) 05/27/18 06:10 RBC 4.61 M/uL (4.7-6.1) L 05/27/18 06:10 Hgb 12.4 g/dL (14.0-18.0) L 05/27/18 06:10 Hct 36.3 % (42-52) L 05/27/18 06:10 MCV 78.7 fL (80-100) L 05/27/18 06:10 MCH 26.9 pg (25-34) 05/27/18 06:10 MCHC 34.2 g/dL (32-36) 05/27/18 06:10 RDW Std Deviation 38.6 fL (36.4-46.3) 05/27/18 06:10 RDW Coeff of Mejia 13.7 % (11.5-14.5) 05/27/18 06:10 Plt Count 171 K/uL (130-400) 05/27/18 06:10 MPV 8.6 fL (7.4-10.4) 05/27/18 06:10 Immature Gran % (Auto) 0.2 % 05/27/18 06:10 Neut % (Auto) 59.1 % 05/27/18 06:10 Lymph % (Auto) 27.1 % 05/27/18 06:10 Armstrong % (Auto) 5.5 % 05/27/18 06:10 Eos % (Auto) 7.5 % 05/27/18 06:10 Baso % (Auto) 0.6 % 05/27/18 06:10 Immature Gran # (Auto) 0.01 K/uL (0.00-0.02) 05/27/18 06:10 Neut # (Auto) 3.64 K/uL (1.4-6.5) 05/27/18 06:10 Lymph # (Auto) 1.67 K/uL (1.2-3.4) 05/27/18 06:10 Armstrong # (Auto) 0.34 K/uL (0.11-0.59) 05/27/18 06:10 Eos # (Auto) 0.46 K/uL (0-0.5) 05/27/18 06:10 Baso # (Auto) 0.04 K/uL (0-0.2) 05/27/18 06:10 PT 10.3 Seconds (9.0-12.0) 05/15/18 15:01 INR 1.0 (0.9-1.1) 05/15/18 15:01 APTT 26.8 Seconds (21.0-31.0) 05/15/18 15:01 PTT Ratio 1.0 05/15/18 15:01 POC Glucose 149 (70-99) H 05/27/18 08:10 Urine Color Yellow 05/15/18 14:47 Urine Appearance Clear (Clear) 05/15/18 14:47 Urine pH 5.0 (4.5-7.5) 05/15/18 14:47 Ur Specific [place] 1.025 (1.000-1.030) 05/15/18 14:47 Urine Protein 2+ (Negative) H 05/15/18 14:47 Urine Glucose (UA) Negative (Negative) 05/15/18 14:47 Urine Ketones Negative (Negative) 05/15/18 14:47 Urine Blood Trace (Negative) H 05/15/18 14:47 Urine Nitrite Negative (Negative) 05/15/18 14:47 Urine Bilirubin Negative (Negative) 05/15/18 14:47 Urine Urobilinogen Negative (Negative) 05/15/18 14:47 Ur Leukocyte Esterase Negative (Negative) 05/15/18 14:47 Urine WBC (Auto) 1-5 /hpf (0-5) 05/15/18 14:47 Urine RBC (Auto) 0-4 /hpf (0-4) 05/15/18 14:47 U Hyaline Cast (Auto) 1-5 /lpf (0-5) 05/15/18 14:47 U Epithel Cells (Auto) 0-5 /lpf (0-5) 05/15/18 14:47 Urine Bacteria (Auto) Negative (Negative) 05/15/18 14:47
[2018-05-27] MEDS: SENNA 8.6 MG TAB PO SCH (21:01)
[2018-05-28] MEDS: CEFAZOLIN 2000MG 2,000 MG/15 ML SYR IV SCH ×2 (02:33→09:52)
[2018-05-28] MEDS: ACETAMINOPHEN 500 MG TAB PO SCH ×2 (06:23→14:09)
[2018-05-28] MEDS: DOCUSATE SODIUM 100 MG CAP PO SCH (08:44)
[2018-05-28] MEDS: ASPIRIN 81 MG ECTAB PO SCH (08:44)
[2018-05-28] MEDS: MULTIVITAMIN TAB PO SCH (08:44)
[2018-05-28] MEDS: INSULIN GLARGINE SOLOSTAR 100 UNITS/ML 3 ML PEN SC SCH (08:45)
[2018-05-28] MEDS: INSULIN ASPART 100 UNITS/ML 3 ML PEN SC SCH ×2 (08:46→12:51)
--- NOTE | 2018-05-28 12:56 | Orthopedic Progress Note ---
Date of Service May 28, 2018 Assessment & Plan (1) Osteomyelitis of ankle or foot, left, acute: 62 yo male stable POD #6 s/p partial excision left 5th metatarsal 1. Med management- cont IV ancef; Dr Calero recommends switching to cefadroxil on discharge 2. DVT prophylaxis- ASA, SCDs 3. D/C planning - Plan for dc to home today with Services. Daily dressing changes. Follow up in Wound clinic to assess debrided area on the plantar surface. Follow up with Dr Núñez in 1 week. Subjective POD 6 s/p 5th Metatarsal resection/infection left foot Pt sitting up in chair eating lunch. No complaints. Comfortable. Denies SOB, CP , LH. Hoping to go home today. Physical Exam 2 Vital Signs (Past 24 Hours): Last Vital Signs Temp 36.3 C L 05/28/18 07:43 Pulse 65 05/28/18 07:43 Resp 16 05/28/18 07:43 BP 138/79 05/28/18 07:43 Pulse Ox 98 05/28/18 07:43 Physical Exam: Dressing removed. Mild drainage noted on the dressing. No erythema. Mild swelling. Calves soft, NT. Cap refill < 2 seconds. Wound benign. Small debrided area on the plantar surface looks better.
--- NOTE | 2018-05-29 12:13 | Discharge Summary ---
Date of Service June 01, 2018 Admission HPI Per Admitting Provider Patient with a hx of left foot ulceration. An MRI confirmed 5th metatarsal head osteomyelitis. He is now being set up for surgical tx with metatarsal head resection. Principal Diagnosis left 5th metatarsal head osteomyelitis Discharge Exam Constitutional well developed and well nourished; no acute distress ENMT external ear and nose normal, oropharynx normal Neck trachea midline, no thyromegaly Respiratory normal respiratory effort, lungs clear to auscultation Cardiovascular Rate/Rhythm: regular rate and regular rhythm Gastrointestinal (Abdomen) normal bowel sounds, soft, nontender, no hepatosplenomegaly Skin Stable flap over 5th metatarsal excision site. Plantar ulcer at the left plantar forefoot. Psychiatric A+Ox3, euthymic affect Lymphatic no cervical or axillary lymphadenopathy Discharge Data Allergies Allergy/AdvReac Type Severity Reaction Status Date / Time Penicillins Allergy Unknown UE SWELLING Verified 05/22/18 10:59 Consultations 05/22/18 15:01 Consult Case Management - Discharge Planning Routine Consult Infectious Diseases Routine Procedures Performed Operation Date: 05/22/18 12:40 Actual Procedures p Left Foot Resection of Fifth Metatarsal Head;(Left) - Bharat Núñez DO s Left foot Ulcer Debridement Separate Location(Left) - Bharat Núñez DO Ordered Studies 05/22/18 05:00 US - OR guided needle placemen Routine Hospital Course (1) Osteomyelitis of ankle or foot, left, acute: The patient progressed well with pain control. Cultures had to become finalized and proper antibiotic choice made prior to patient discharge. Once IV antibiotics were set up for home, the patient was discharged. 62 yo male stable POD #6 s/p partial excision left 5th metatarsal 1. Med management- cont IV ancef; Dr Calero recommends switching to cefadroxil on discharge 2. DVT prophylaxis- ASA, SCDs 3. D/C planning - Plan for dc to home today with Services. Daily dressing changes. Follow up in Wound clinic to assess debrided area on the plantar surface. Follow up with Dr Núñez in 1 week. Total Time Total Time Spent Total Time Spent (In Minutes): 30 Total Time Includes: Examination of the Patient and Discharge Planning Discharge Plan Discharge Items Patient Disposition: Home - Home Health Services Reason For Visit: Osteomyelitis Left Foot, Ulcer Plantar Discharge Diagnosis: Left foot osteomyelitis, plantar ulcer Condition: Good Discharge Goals: Decrease discomfort and Improve function Activity: Per 'Additional Instructions' section Weightbearing: Left non-weightbearing Non-emergency contact: Surgeon Call non-emergency contact if: your pain is not controlled, your temperature is above 101.5, your wound has increased redness and your wound has increased drainage Follow-up/Referrals: Ravi Villalta III, MD [Primary Care Provider] - Diet: Carb Consistent or DM2 Addtl Provider Instructions: ACTIVITY RECOMMENDATIONS: * You should remain non weight bearing on your foot until your follow up with dr núñez in 10-14 days. SPECIAL CARE INSTRUCTIONS: * Some drainage onto the dressing is normal and is no cause for alarm. * Some swelling is natural especially after walking. When resting, keep your foot elevated above the level of your heart. * Call the doctor's office at if you notice increased drainage, fever over 101 degrees F. or severe constant pain. BANDAGE: * Leave bandage/cast in place unless otherwise directed. * Keep bandage/cast dry at all times. FOLLOW UP VISIT: If appointment is not already scheduled: Please call [facility] to make a follow-up appointment after your surgery at . Follow up with your primary care provider in 7-10 days for blood sugar check. Prescriptions: New aspirin [Ecotrin Low Strength] 81 mg Tablet,Delayed Release (Dr/Ec) 81 mg PO QAM 30 Days Qty: 30 RF: 0 sennosides [Senokot] 8.6 mg Tablet 17.2 mg PO HS 10 Days Qty: 20 RF: 0 oxycodone-acetaminophen [Percocet] 5-325 mg tablet 1 - 2 tab PO Q6H PRN (Reason: pain) Qty: 30 RF: 0 cefadroxil 1 gram tablet 1,000 mg PO BID 42 Days Qty: 84 RF: 0 Continue insulin glargine [Basaglar KwikPen U-100 Insulin] 100 unit/mL (3 mL) insulin pen 55 units SQ QAM RF: 0 insulin aspart U-100 [Novolog U-100 Insulin aspart] 100 unit/mL solution 5 units SQ DAILY RF: 0 metformin 500 mg tablet 1,000 mg PO BID RF: 0 aspirin 81 mg Tablet,Delayed Release (Dr/Ec) 81 mg PO QAM RF: 0 Discontinued cephalexin [Keflex] 500 mg capsule 500 mg PO TID Qty: 1 RF: 0 acetaminophen [Mapap (acetaminophen)] 325 mg Tablet 650 mg PO Q4H PRN (Reason: pain) Qty: 1 RF: 0 Stand-Alone Forms: [facility] [place] [facility] [place], Opio[facility] Pain Management, Work/School Release (Inpt) Discharge Orders: Discharge Order (Routine); Ordered 05/28/18 Ordered By: Radhames Johnson Admission Data Admit Date/Time: 05/22/18 14:43 Attending Provider: Bharat Núeñz Admit Provider: Bharat Núñez Primary Care Provider: Ravi Villalta III Other Providers: Jerry Calero ; Any Magana ; Home,Nursing Agency Service: Surgical Services Other Interventions: Discharge Summary Assessment (RN) Last Done: 05/28/18 14:00 Pending Studies at Discharge: No DC Date/Time DO NOT enter until pt leaves facility: 05/28/18 16:05
== END 2018-05-28 16:05 | disposition home health service (06) | DRG 504 ==
LOC: ASU 10:14 → 3E 14:43

== ENCOUNTER 2021-08-07 10:23 | Inpatient (IN) ==
[2021-08-07] MEDS ORDERED: cefTRIAXone SODIUM 2,000 MG/70 ML BAG IV STA (10:34)
[2021-08-07] MEDS ORDERED: VANCOMYCIN CONSULT ACTIVE PRN (10:34)
[2021-08-07] MEDS ORDERED: VANCOMYCIN HCL 2,750 MG in SODIUM CHLORIDE 0.9% 500 ML IV ONE (10:34)
--- NOTE | 2021-08-07 10:38 | Emergency Department Note ---
Impression & Plan Diabetic foot ulcer associated with type 2 diabetes mellitus, Cellulitis, Osteomyelitis ED Provider Note NAME: RICCI BEAR JR AGE: 65 SEX: M : 1955 ARRIVES VIA: Walk-In INFORMANT: Patient ED PROVIDER(S): Jorge Heredia DO CHIEF COMPLAINT: left toe pain HPI: Patient is a 65-year-old male with a past medical history of PAD, diabetes, hypertension, hyperlipidemia presents the ER for left first toe pain. This has been present for about 2 to 3 months. He notes its been worsening. Over the past week he has been having chills but denies any recorded fevers. He notes his left leg normally swells but is becoming more swollen. His foot has become more red. He was seen at wound care clinic and referred over to Ortho and consequently referred him to the ER. He is scheduled to have the toe amputated coming up on Friday. ROS: See above HPI for pertinent positives & negatives. A total of 10 systems reviewed and were otherwise negative. PAST MEDICAL HISTORY:See Below PAST SURGICAL HISTORY:See Below FAMILY HISTORY:See Below SOCIAL HISTORY:See Below HOME MEDICATIONS:See Below ALLERGIES:See Below VITALS:See Below PHYSICAL EXAMINATION: GENERAL: Sitting up in bed, alert, well appearing, well nourished, no distress, non-toxic EYE EXAM: normal conjunctiva. OROPHARYNX: no exudate, no erythema, lips, buccal mucosa, and tongue normal and mucous membranes are moist NECK: supple, no nuchal rigidity, no adenopathy, non-tender LUNGS: Clear to auscultation. Normal chest wall mechanics HEART: no murmurs, S1 normal and S2 normal ABDOMEN: abdomen soft, non-tender, normo-active bowel sounds, no masses, no rebound or guarding. UPPER EXTREMITIES: upper extremities are grossly normal. LOWER EXTREMITIES: Open wound over the first toe on the dorsal surface which erodes through the nail down through the bone with surrounding erythema circumferentially around the first toe tracking up into the foot with a fair amount of swelling and edema throughout the foot and vadlivia on the left NEURO EXAM: Normal sensorium, cranial nerves II-XII grossly intact, normal speech, no gross weakness of arms, no gross weakness of legs. MEDICAL DECISION MAKING: Patient is a 65-year-old male who presents ER for the above-stated complaint. IV was that was blood was obtained. Labs show mild leukocytosis of 11.6. Mild anemia 10. INR was unremarkable. BMP with a creatinine of 2.2 consistent with previous. Potassium was 5.3. LFTs bilirubin was unremarkable. Troponin was negative. Pro-Benito was negative. Toe has clear osteo with breakdown of the skin. X-rays confirm osteo-. Patient was given IV antibiotics updated bedside and admitted to the hospital for further work-up with orthopedics on board for likely toe amputation. Triage Nursing notes reviewed. Limited review of prior medical records performed Vital Signs: reviewed and remarkable for HTN Differential diagnosis: Cellulitis, abscess, MRSA infection, DVT, necrotizing fasciitis, dermatitis, drug eruption, allergic reaction, as well as other pathologies. ER treatment provided: See below Diagnostics interpreted by me: ECG: Sinus rhythm rate of 64 Normal axis No PVCs QTC 408 Cardiac Monitoring: An order was placed for continuous cardiac monitoring. The monitor shows a rate of 70 with sinus rhythm. Laboratory studies: As stated above and show below. Imaging studies: X-rays of the foot show osteo- Consultation(s): Discussed the hospitalist for further evaluation Procedures: none Critical Care: None Past Med/Surg History Medical History (Updated 08/07/21 @ 14:32 by Jorge Heredia DO) Acquired hallux rigidus of right foot BPH loc w urin obs/LUTS (Unknown) Constipation Diabetes mellitus, type 2 IDDM Disc degeneration, lumbar Diverticulosis Eczema Fatigue GERD (gastroesophageal reflux disease) OCCASIONAL Internal hemorrhoids Morbid obesity Necrotizing fasciitis of ankle and foot S/P IV ANTIBIOTICS/PICC LINE/WOUND VAC DURING 02/2018 [facility] ADMISSION Pancreatitis ~ Psoriasis Sleep apnea NO DEVICE S/P UPPP Tubular adenoma of colon Surgical History History of adenoidectomy History of cataract surgery bilt History of cataract surgery History of cholecystectomy History of colonoscopy Colonoscopy 01/21/[address] Garg. History of incision and drainage Hx of I&D of mendel-rectal abscess History of tonsillectomy History of tooth extraction S/P foot surgery, left Status post uvulopalatopharyngoplasty Family History Mother Family history of diabetes mellitus Father History of alcoholism History of liver cancer Sister Cancer Denies family history of Ovarian cancer Prostate cancer Crohn's disease Breast cancer Colorectal cancer Social History Smoking Status: Never smoker Second Hand Exposure: Yes ( smokes and is in house with pt); Hx Alcohol Use: No Hx Substance Use: No Preferred Language: Dutch Communication Ability: Effective Visual Impairment: No Limitations Hearing Ability: Normal 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 Feels Safe at Home: Yes Childhood Exposure to Second-Hand Smoke: Yes Diet Comment: "tries to feed me right, but sometimes it doesn't always happen" during the past year weight has: remained stable Physical Activity Frequency: Does not Exercise Seatbelt Use: never Assistive Devices: Glasses Allergies Allergies Allergy/AdvReac Type Severity Reaction Status Date / Time Penicillins Allergy Intermediate UE SWELLING Verified 08/07/21 13:11 Home Meds Home Medications Medication Instructions Recorded Confirmed lactobacillus combination no.8 3 3,000 mmu cells PO BID 06/12/20 07/31/21 billion cell capsule (Adult Probiotic) aspirin 81 mg chewable tablet 81 mg PO QAM 07/26/20 07/31/21 blood sugar diagnostic (Accu-Chek ea 08/23/20 07/31/21 Guide test strips) blood-glucose meter (Accu-Chek ea 08/23/20 07/31/21 Guide Glucose Meter) lancets (Accu-Chek Fastclix Lancet ea 08/23/20 07/31/21 Drum) insulin glargine 100 unit/mL (3 60 unit SQ QAM ml 02/15/21 07/31/21 mL) subcutaneous pen (Basaglar KwikPen U-100 Insulin) insulin aspart U-100 100 unit/mL 18 unit SQ TIDM ml 04/18/21 07/31/21 (3 mL) subcutaneous pen (Novolog Flexpen U-100 Insulin aspart) clindamycin HCl 300 mg capsule 300 mg PO TID 07/31/21 07/31/21 empagliflozin 25 mg tablet 25 mg 08/07/21 (Jardiance) Previous Rx's Medication Instructions Recorded lisinopril 20 mg tablet 20 mg PO QAM #90 tab 10/11/19 metformin 500 mg tablet 1,000 mg PO BID 90 Days #360 tab 11/10/20 duloxetine 20 mg capsule,delayed 20 mg PO BID #180 cap 12/01/20 release (Cymbalta) furosemide 20 mg tablet 20 mg PO QAM #30 tab 12/04/20 FreeStyle Remigio 2 Romayor (flash #1 ea NS 01/24/21 glucose scanning reader) FreeStyle Remigio 2 Sensor (flash #7 ea NS 01/24/21 glucose sensor) sodium zirconium cyclosilicate 5 5 g PO .COMPLEX #40 ea 03/15/21 gram oral powder packet (Lokelma) atorvastatin 10 mg tablet 10 mg PO QPM #30 tab 04/05/21 pantoprazole 40 mg tablet,delayed 40 mg PO BID #60 tab 04/05/21 release ergocalciferol (vitamin D2) 1,250 1,250 mcg PO .weekly #12 cap 05/10/21 mcg (50,000 unit) capsule BD Ultra-Fine Mini Pen Needle 31 #400 ea NS 06/07/21 gauge x 3/16" (pen needle, diabetic) tamsulosin 0.4 mg capsule 0.4 mg PO DAILY #90 cap 06/13/21 empagliflozin 25 mg tablet 25 mg PO DAILY #90 tab 07/20/21 doxycycline hyclate 100 mg tablet 100 mg PO bid #28 tab 08/03/21 Results & Data (ED) Vital Signs Vital Signs - 24 hr 08/07/21 10:25 08/07/21 10:51 08/07/21 11:00 Temperature 37.1 C Temperature Source Temporal Artery Scan Pulse Rate 91 H 67 Respiratory Rate 20 16 17 Respiratory Effort / Characteristics Non-Labored Blood Pressure 148/73 H 149/75 H Blood Pressure Mean 98 99 Blood Pressure Position Sitting Pulse Oximetry 96 99 97 Oxygen Delivery Method Room Air Room Air Sepsis Recent Fever Within 48 Hours No Sepsis New/Unexplained Change in Mental Status No Sepsis Action Taken by Nursing No Action Required 08/07/21 11:30 08/07/21 12:31 08/07/21 13:00 Temperature Temperature Source Pulse Rate 72 73 87 Respiratory Rate 20 18 17 Respiratory Effort / Characteristics Blood Pressure 157/71 H 171/94 H 165/69 H Blood Pressure Mean 99 119 101 Blood Pressure Position Pulse Oximetry 98 98 97 Oxygen Delivery Method Sepsis Recent Fever Within 48 Hours Sepsis New/Unexplained Change in Mental Status Sepsis Action Taken by Nursing 08/07/21 13:30 08/07/21 13:35 08/07/21 14:00 Temperature Temperature Source Pulse Rate 73 73 72 Respiratory Rate 20 19 Respiratory Effort / Characteristics Blood Pressure 181/96 H 157/81 H Blood Pressure Mean 124 106 Blood Pressure Position Pulse Oximetry 94 100 96 Oxygen Delivery Method Room Air Sepsis Recent Fever Within 48 Hours Sepsis New/Unexplained Change in Mental Status Sepsis Action Taken by Nursing Laboratory Data Result diagrams: 08/07/21 10:48 08/07/21 10:48 Lab Results 08/07/21 08/07/21 08/07/21 Range/Units 10:48 10:48 10:48 WBC 11.66 H (4.8-10.8) K/uL RBC 3.90 L (4.7-6.1) M/uL Hgb 10.7 L (14.0-18.0) g/dL Hct 32.9 L (42-52) % MCV 84.4 (80-100) fL MCH 27.4 (25-34) pg MCHC 32.5 (32-36) g/dL RDW Std Deviation 41.3 (36.4-46.3) fL RDW Coeff of Mejia 13.5 (11.5-14.5) % Plt Count 241 (130-400) K/uL MPV 8.6 (7.4-10.4) fL Immature Gran % (Auto) 0.4 % Neut % (Auto) 77.9 % Lymph % (Auto) 12.4 % Otoe % (Auto) 7.0 % Eos % (Auto) 2.2 % Baso % (Auto) 0.1 % Neut # (Auto) 9.07 H (1.4-6.5) K/uL Lymph # (Auto) 1.45 (1.2-3.4) K/uL Otoe # (Auto) 0.82 H (0.11-0.59) K/uL Eos # (Auto) 0.26 (0-0.5) K/uL Baso # (Auto) 0.01 (0-0.2) K/uL Immature Gran # (Auto) 0.05 H (0.00-0.02) K/uL PT (9.0-12.0) Seconds INR (0.9-1.1) APTT (21.0-31.0) Seconds PTT Ratio Sodium (136-145) mmol/L Potassium (3.5-5.1) mmol/L Chloride (98-107) mmol/L Carbon Dioxide (21-32) mmol/L Anion Gap (3-11) BUN (6-23) mg/dl Creatinine (0.6-1.4) mg/dl Est Cr Clr Drug Dosing ml/min Est GFR ( Amer) ml/min Est GFR (Non-Af Amer) ml/min BUN/Creatinine Ratio (10-20) Glucose (70-99(Fasting)) mg/dl Lactate (0.4-2.0) mmol/L Calcium (8.5-10.1) mg/dl Magnesium (1.7-2.4) mg/dl Total Bilirubin (0.2-1.0) mg/dl AST (13-39) U/L ALT (7-52) U/L Alkaline Phosphatase (34-104) U/L Troponin I High Sens 11.4 (0-20) pg/ml Total Protein (6.0-8.3) gm/dl Albumin (3.4-5.0) gm/dl Globulin (2.5-4.0) gm/dl Albumin/Globulin Ratio (0.9-2) Procalcitonin 0.25 (0-0.5) ng/ml SARS-CoV-2, RNA, NAAT (NEGATIVE) 08/07/21 08/07/21 08/07/21 Range/Units 10:48 10:48 10:48 WBC (4.8-10.8) K/uL RBC (4.7-6.1) M/uL Hgb (14.0-18.0) g/dL Hct (42-52) % MCV (80-100) fL MCH (25-34) pg MCHC (32-36) g/dL RDW Std Deviation (36.4-46.3) fL RDW Coeff of Mejia (11.5-14.5) % Plt Count (130-400) K/uL MPV (7.4-10.4) fL Immature Gran % (Auto) % Neut % (Auto) % Lymph % (Auto) % Otoe % (Auto) % Eos % (Auto) % Baso % (Auto) % Neut # (Auto) (1.4-6.5) K/uL Lymph # (Auto) (1.2-3.4) K/uL Otoe # (Auto) (0.11-0.59) K/uL Eos # (Auto) (0-0.5) K/uL Baso # (Auto) (0-0.2) K/uL Immature Gran # (Auto) (0.00-0.02) K/uL PT 11.5 (9.0-12.0) Seconds INR 1.1 (0.9-1.1) APTT 30.3 (21.0-31.0) Seconds PTT Ratio 1.1 Sodium 134 L (136-145) mmol/L Potassium 5.3 H (3.5-5.1) mmol/L Chloride 99 (98-107) mmol/L Carbon Dioxide 28 (21-32) mmol/L Anion Gap 7 (3-11) BUN 37 H (6-23) mg/dl Creatinine 2.20 H (0.6-1.4) mg/dl Est Cr Clr Drug Dosing 49.3 ml/min Est GFR ( Amer) 35.1 ml/min Est GFR (Non-Af Amer) 30.3 ml/min BUN/Creatinine Ratio 16.8 (10-20) Glucose 268 H (70-99(Fasting)) mg/dl Lactate 1.2 (0.4-2.0) mmol/L Calcium 9.1 (8.5-10.1) mg/dl Magnesium 2.0 (1.7-2.4) mg/dl Total Bilirubin 0.6 (0.2-1.0) mg/dl AST 10 L (13-39) U/L ALT 8 (7-52) U/L Alkaline Phosphatase 123 H (34-104) U/L Troponin I High Sens (0-20) pg/ml Total Protein 7.4 (6.0-8.3) gm/dl Albumin 3.3 L (3.4-5.0) gm/dl Globulin 4.1 H (2.5-4.0) gm/dl Albumin/Globulin Ratio 0.8 L (0.9-2) Procalcitonin (0-0.5) ng/ml SARS-CoV-2, RNA, NAAT (NEGATIVE) 08/07/21 Range/Units 12:55 WBC (4.8-10.8) K/uL RBC (4.7-6.1) M/uL Hgb (14.0-18.0) g/dL Hct (42-52) % MCV (80-100) fL MCH (25-34) pg MCHC (32-36) g/dL RDW Std Deviation (36.4-46.3) fL RDW Coeff of Mejia (11.5-14.5) % Plt Count (130-400) K/uL MPV (7.4-10.4) fL Immature Gran % (Auto) % Neut % (Auto) % Lymph % (Auto) % Otoe % (Auto) % Eos % (Auto) % Baso % (Auto) % Neut # (Auto) (1.4-6.5) K/uL Lymph # (Auto) (1.2-3.4) K/uL Otoe # (Auto) (0.11-0.59) K/uL Eos # (Auto) (0-0.5) K/uL Baso # (Auto) (0-0.2) K/uL Immature Gran # (Auto) (0.00-0.02) K/uL PT (9.0-12.0) Seconds INR (0.9-1.1) APTT (21.0-31.0) Seconds PTT Ratio Sodium (136-145) mmol/L Potassium (3.5-5.1) mmol/L Chloride (98-107) mmol/L Carbon Dioxide (21-32) mmol/L Anion Gap (3-11) BUN (6-23) mg/dl Creatinine (0.6-1.4) mg/dl Est Cr Clr Drug Dosing ml/min Est GFR ( Amer) ml/min Est GFR (Non-Af Amer) ml/min BUN/Creatinine Ratio (10-20) Glucose (70-99(Fasting)) mg/dl Lactate (0.4-2.0) mmol/L Calcium (8.5-10.1) mg/dl Magnesium (1.7-2.4) mg/dl Total Bilirubin (0.2-1.0) mg/dl AST (13-39) U/L ALT (7-52) U/L Alkaline Phosphatase (34-104) U/L Troponin I High Sens (0-20) pg/ml Total Protein (6.0-8.3) gm/dl Albumin (3.4-5.0) gm/dl Globulin (2.5-4.0) gm/dl Albumin/Globulin Ratio (0.9-2) Procalcitonin (0-0.5) ng/ml SARS-CoV-2, RNA, NAAT NEGATIVE (NEGATIVE) Administered Medications Famotidine (Famotidine 20mg/5ml Iv Push) 20 mg IV Q12H LIANA Stop: 09/06/21 14:14 Last Admin: 08/07/21 14:23 Dose: 20 mg Documented by: [id number] Discontinued Medications Vancomycin HCl 2,750 mg/ (Sodium Chloride) 555 mls @ 200 mls/hr IV NOW ONE Stop: 08/07/21 13:20 Last Admin: 08/07/21 12:22 Dose: 200 mls/hr Documented by: [id number] Ceftriaxone Sodium (Rocephin) 2,000 mg in 70 mls @ 140 mls/hr IV NOW STA Stop: 08/07/21 11:03 Last Infusion: 08/07/21 12:09 Dose: 0 mls/hr Documented by: [id number] Admin: 08/07/21 11:36 Dose: 140 mls/hr Documented by: [id number] Imaging Data Radiologist's Impression: Toe X-Ray 08/07/21 11:01 LEFT FIRST TOE 3 VIEWS CLINICAL HISTORY: First toe infection. FINDINGS: 3 views of the left first toe are obtained. No prior studies are available for comparison at the time of dictation. The skeletal structures are well mineralized. There is soft tissue edema throughout the first toe with foci of subcutaneous gas adjacent to the tuft of the distal phalanx. There is erosive/destructive change involving the proximal shaft and tuft of the first di stal phalanx. There is are displaced fragments of the tuft, and likely nondisplaced fracture through the proximal shaft of the persistent pharynx which may be pathologic. The first proximal phalanx and metacarpal are normal as visualized. Mild arthritic changes seen at the first metatarsophalangeal joint. A 5 mm linear metallic foreign body is present along the plantar aspect of the first toe at the level of the base of the proximal phalanx. Chronic deformities partially visualized in the fifth metatarsal. IMPRESSION: 1. Erosive/destructive change of the first distal phalanx as above. Given the history of infection this is typical for osteomyelitis. 2. There are displaced fragments from the tuft of the first distal phalanx, as well as probable pathologic fracture through the proximal shaft. 3. Soft tissue edema and foci of soft tissue gas are present in the first toe. 4. A 5 mm linear metallic foreign body is present in the plantar soft tissues of the first toe. Electronically signed by: Freddy Gutierrez M.D. 08/07/2021 11:33 AM Venous Doppler Study 08/07/21 11:01 LEFT LOWER EXTREMITY VENOUS DOPPLER CLINICAL HISTORY: lle pain COMPARISON STUDY: No previous studies for comparison. TECHNIQUE: Sonography of the deep venous system of the left lower extremity was performed. Compression and augmentation were evaluated. FINDINGS: This study was compromised by suboptimal penetration. The left common femoral, superficial femoral and popliteal veins were compressible. Augmentation was normal. Flow was shown within the deep calf vessels. IMPRESSION: Mildly compromised exam but no evidence of deep venous thrombus within the left lower extremity. ACT 112: Negative or not required by law. Electronically signed by: Guillaume Sales M.D. 08/07/2021 12:30 PM Discharge Plan Visit Data Chief Complaint: Toe Injury/Pain Stated Complaint: SORE TOE ED Provider: Jogre Heredia Discharge Problem: Diabetic foot ulcer associated with type 2 diabetes mellitus, Cellulitis, Osteo myelitis Forms Stand Alone Forms: [facility] [employer] Prescriptions Prescriptions: No Action clindamycin HCl 300 mg capsule 300 mg PO TID RF: 0 lisinopril 20 mg tablet 20 mg PO QAM Qty: 90 RF: 3 Hold Instructions: hy aspirin 81 mg tablet,chewable 81 mg PO QAM RF: 0 metformin 500 mg tablet 1,000 mg PO BID 90 Days Qty: 360 RF: 3 duloxetine [Cymbalta] 20 mg capsule,delayed release(DR/EC) 20 mg PO BID Qty: 180 RF: 2 furosemide 20 mg tablet 20 mg PO QAM Qty: 30 RF: 11 (DME) FreeStyle Remigio 2 Romayor Misc See Rx Instructions .Route Qty: 1 RF: 0 (DME) FreeStyle Remigio 2 Sensor Kit See Rx Instructions .Route Qty: 7 RF: 3 Lokelma 5 gram powder in packet 5 g PO .COMPLEX Qty: 40 RF: 2 pantoprazole 40 mg tablet,delayed release (DR/EC) 40 mg PO BID Qty: 60 RF: 5 atorvastatin 10 mg tablet 10 mg PO QPM Qty: 30 RF: 5 ergocalciferol (vitamin D2) 1,250 mcg (50,000 unit) capsule 1,250 mcg PO .weekly Qty: 12 RF: 3 (DME) pen needle, diabetic [BD Ultra-Fine Mini Pen Needle] 31 gauge x 3/16" needle See Dose Instructions .ROUTE .MEDSUPPLY Qty: 400 RF: 3 empagliflozin 25 mg tablet 25 mg PO DAILY Qty: 90 RF: 3 doxycycline hyclate 100 mg tablet 100 mg PO bid Qty: 28 RF: 0 Adult Probiotic 3 billion cell capsule 3,000 mmu cells PO BID RF: 0 (DME) lancets [Accu-Chek Fastclix Lancet Drum] Misc See Rx Instructions .ROUTE .MEDSUPPLY RF: 0 (DME) blood-glucose meter [Accu-Chek Guide Glucose Meter] Misc See Rx Instructions .ROUTE .MEDSUPPLY RF: 0 (DME) Accu-Chek Guide test strips Strip See Rx Instructions .ROUTE .MEDSUPPLY RF: 0 Novolog Flexpen U-100 Insulin 100 unit/mL (3 mL) insulin pen 18 unit SQ TIDM RF: 0 tamsulosin 0.4 mg capsule 0.4 mg PO DAILY Qty: 90 RF: 3 Basaglar KwikPen U-100 Insulin 100 unit/mL (3 mL) insulin pen 60 unit SQ QAM RF: 0 Jardiance 25 mg tablet 25 mg RF: 0 Referrals Referrals: Dora Sales MD [Primary Care Provider] - Discharge Problem: Diabetic foot ulcer associated with type 2 diabetes mellitus Qualifiers: Diabetic foot ulcer location: unspecified part of foot Laterality: unspecified laterality Non-pressure ulcer stage: unspecified non-pressure ulcer stage Qualified Code(s): E11.621 - Type 2 diabetes mellitus with foot ulcer Cellulitis Qualifiers: Site of cellulitis: unspecified site Qualified Code(s): L03.90 - Cellulitis, unspecified Osteomyelitis Qualifiers: Osteomyelitis type: unspecified type Laterality: unspecified laterality
[2021-08-07 11:11] LABS: Hematocrit (blood only) 32.9 % (42-52); Hemoglobin 10.7 g/dL (14.0-18.0); Mean Corpuscular Hemoglobin 27.4 pg (25-34); Mean Corpuscular Hgb Conc 32.5 g/dL (32-36); Mean Corpuscular Volume 84.4 fL (80-100); Mean Platelet Volume 8.6 fL (7.4-10.4); Platelet Count 241 K/uL (130-400); RDW Coefficient of Variation 13.5 % (11.5-14.5); RDW Standard Deviation 41.3 fL (36.4-46.3); White Blood Count 11.66 K/uL (4.8-10.8)
[2021-08-07 11:32] LABS: Basophils # (auto) 0.01 K/uL (0-0.2); Basophils % (auto) 0.1 %; Eosinophils # (auto) 0.26 K/uL (0-0.5); Eosinophils % (auto) 2.2 %; Immature Granulocytes # (auto) 0.05 K/uL (0.00-0.02); Immature Granulocytes % (auto) 0.4 %; Lymphocytes # (auto) 1.45 K/uL (1.2-3.4); Lymphocytes % (auto) 12.4 %; Monocytes # (auto) 0.82 K/uL (0.11-0.59); Neutrophils # (auto) 9.07 K/uL (1.4-6.5); Neutrophils % (auto) 77.9 %
--- NOTE | 2021-08-07 11:34 | XRay Report ---
LEFT FIRST TOE 3 VIEWS CLINICAL HISTORY: First toe infection. FINDINGS: 3 views of the left first toe are obtained. No prior studies are available for comparison a t the time of dictation. The skeletal structures are well mineralized. There is soft tissue edema thr oughout the first toe with foci of subcutaneous gas adjacent to the tuft of the distal phalanx. There is erosive/destructive change involving the proximal shaft and tuft of the first distal phalanx. The re is are displaced fragments of the tuft, and likely nondisplaced fracture through the proximal shaf t of the persistent pharynx which may be pathologic. The first proximal phalanx and metacarpal are no rmal as visualized. Mild arthritic changes seen at the first metatarsophalangeal joint. A 5 mm linear metallic foreign body is present along the plantar aspect of the first toe at the level of the base of the proximal phalanx. Chronic deformities partially visualized in the fifth metatarsal. IMPRESSION: 1. Erosive/destructive change of the first distal phalanx as above. Given the history of infection th is is typical for osteomyelitis. 2. There are displaced fragments from the tuft of the first distal phalanx, as well as probable patho logic fracture through the proximal shaft. 3. Soft tissue edema and foci of soft tissue gas are present in the first toe. 4. A 5 mm linear metallic foreign body is present in the plantar soft tissues of the first toe. Electronically signed by: Freddy Gutierrez M.D. 08/07/2021 11:33 AM
[2021-08-07 11:37] LABS: INR 1.1 (0.9-1.1); Partial Thromboplastin Ratio 1.1; Partial Thromboplastin Time 30.3 Seconds (21.0-31.0); Prothrombin Time 11.5 Seconds (9.0-12.0)
[2021-08-07 11:51] LABS: Albumin Globulin Ratio 0.8 (0.9-2); Albumin Level 3.3 gm/dl (3.4-5.0); BUN Creatinine Ratio 16.8 (10-20); Bilirubin,Total 0.6 mg/dl (0.2-1.0); Calcium 9.1 mg/dl (8.5-10.1); Creatinine Clr Calc Pharmacy 49.3 ml/min; Est GFR (African American) 35.1 ml/min; Est GFR (Non-African American) 30.3 ml/min; Globulin 4.1 gm/dl (2.5-4.0); Potassium 5.3 mmol/L (3.5-5.1); Total Protein 7.4 gm/dl (6.0-8.3)
--- NOTE | 2021-08-07 12:31 | Ultrasound Report ---
LEFT LOWER EXTREMITY VENOUS DOPPLER CLINICAL HISTORY: lle pain COMPARISON STUDY: No previous studies for comparison. TECHNIQUE: Sonography of the deep venous system of the left lower extremity was performed. Compressi on and augmentation were evaluated. FINDINGS: This study was compromised by suboptimal penetration. The left common femoral, superficial femoral and popliteal veins were compressible. Augmentation was normal. Flow was shown within the marla p calf vessels. IMPRESSION: Mildly compromised exam but no evidence of deep venous thrombus within the left lower ext remity. ACT 112: Negative or not required by law. Electronically signed by: Guillaume Sales M.D. 08/07/2021 12:30 PM
[2021-08-07] MEDS ORDERED: FAMOTIDINE 20MG/5ML IV PUSH IV ONE (14:15)
--- NOTE | 2021-08-07 14:15 | History & Physical Report ---
Date of Service August 07, 2021 Assessment & Plan (1) Osteomyelitis of great toe of left foot: Plan: Left great toe osteomyelitis- Gas noted in soft tissues Stop outpatient oral clindamycin and doxycycline Received vancomycin and ceftriaxone IV in the ED Change antibiotics to daptomycin IV and cefepime IV Patient reportedly to undergo surgery in 3 days with [facility] (2) Uncontrolled diabetes mellitus, with long-term current use of insulin: Plan: Hold empagliflozin, metformin and routine 18 units subcu 3 times daily with meals insulin aspart Continue insulin glargine 60 units subcu every morning, as his glucose has been uncontrolled in outpatient setting Place on Accu-Cheks before meals and at bedtime with NovoLog coverage per scale Check hemoglobin A1c (3) PAD (peripheral artery disease): Plan: PAD/hypertension/chronic venous insufficiency- Hold aspirin (4) Acute kidney injury superimposed on chronic kidney disease: Plan: Creatinine 2.20 upon admission, with range 1.63-2.15 Potassium 5.3 and sodium 134 Ejection fraction of 60-65% on 10/27/2019 Hold lisinopril Continue diuretics furosemide (5) Chronic venous insufficiency: Plan: Continue furosemide (6) Hypertension: Plan: See above (7) Dyslipidemia: Plan: Continue atorvastatin 10 mg daily (8) Depression: Plan: Continue duloxetine 20 mg p.o. twice daily (9) GERD (gastroesophageal reflux disease): Plan: On pantoprazole 40 mg p.o. twice daily Add famotidine 20 mg IV every 12 hours (10) BPH loc w urin obs/LUTS: Plan: Continue tamsulosin, monitor urine output History of Present Illness Chief Complaint: The patient is referred to the emergency department after having been referred from the wound care clinic to the orthopedic surgery regarding worsening left great toe infection Primary Care Provider: Dora Sales MD The patient is a 65-year-old male with a past medical history including PAD, diabetic ulcer of left foot, hypertension, dyslipidemia, depression, GERD, nonproliferative diabetic retinopathy, peripheral neuropathy, diabetic ulcer of right great toe, chronic venous insufficiency, CKD and obesity. He has been following with wound care clinic for the past 2 to 3 months for a diabetic foot infection over the left great toe. He was referred from wound care clinic to orthopedic surgery, who then referred the patient to the ED for further assessment. X-rays in the emergency department show a metallic foreign body 5 mm, and x-ray findings of osteomyelitis of great toe and soft tissue gas Allergies Allergy/AdvReac Type Severity Reaction Status Date / Time Penicillins Allergy Intermediate UE SWELLING Verified 08/07/21 13:11 Home Medications Medication Instructions Recorded Confirmed Type lisinopril 20 mg tablet 20 mg PO QAM #90 tab 10/11/19 07/31/21 Rx lactobacillus combination no.8 3 3,000 mmu cells PO BID 06/12/20 07/31/21 History billion cell capsule (Adult Probiotic) aspirin 81 mg chewable tablet 81 mg PO QAM 07/26/20 07/31/21 History blood sugar diagnostic (Accu-Chek ea 08/23/20 07/31/21 History Guide test strips) blood-glucose meter (Accu-Chek ea 08/23/20 07/31/21 History Guide Glucose Meter) lancets (Accu-Chek Fastclix Lancet ea 08/23/20 07/31/21 History Drum) metformin 500 mg tablet 1,000 mg PO BID 90 Days #360 tab 11/10/20 07/31/21 Rx duloxetine 20 mg capsule,delayed 20 mg PO BID #180 cap 12/01/20 07/31/21 Rx release (Cymbalta) furosemide 20 mg tablet 20 mg PO QAM #30 tab 12/04/20 07/31/21 Rx FreeStyle Remigio 2 Cl[place] (flash #1 ea NS 01/24/21 07/31/21 Rx glucose scanning reader) FreeStyle Remigio 2 Sensor (flash #7 ea NS 01/24/21 07/31/21 Rx glucose sensor) insulin glargine 100 unit/mL (3 60 unit SQ QAM ml 02/15/21 07/31/21 History mL) subcutaneous pen (Basaglar KwikPen U-100 Insulin) sodium zirconium cyclosilicate 5 5 g PO .COMPLEX #40 ea 03/15/21 07/31/21 Rx gram oral powder packet (Lokelma) atorvastatin 10 mg tablet 10 mg PO QPM #30 tab 04/05/21 07/31/21 Rx pantoprazole 40 mg tablet,delayed 40 mg PO BID #60 tab 04/05/21 07/31/21 Rx release insulin aspart U-100 100 unit/mL 18 unit SQ TIDM ml 04/18/21 07/31/21 History (3 mL) subcutaneous pen (Novolog Flexpen U-100 Insulin aspart) ergocalciferol (vitamin D2) 1,250 1,250 mcg PO .weekly #12 cap 05/10/21 07/31/21 Rx mcg (50,000 unit) capsule BD Ultra-Fine Mini Pen Needle 31 #400 ea NS 06/07/21 07/31/21 Rx gauge x 3/16" (pen needle, diabetic) tamsulosin 0.4 mg capsule 0.4 mg PO DAILY #90 cap 06/13/21 07/31/21 Rx empagliflozin 25 mg tablet 25 mg PO DAILY #90 tab 07/20/21 07/31/21 Rx clindamycin HCl 300 mg capsule 300 mg PO TID 07/31/21 07/31/21 History doxycycline hyclate 100 mg tablet 100 mg PO bid #28 tab 08/03/21 Rx empagliflozin 25 mg tablet 25 mg 08/07/21 History (Jardiance) Past Med/Surg History Medical History (Updated 08/07/21 @ 14:14 by Luis Crain MD) Acquired hallux rigidus of right foot BPH loc w urin obs/LUTS (Unknown) Constipation Diabetes mellitus, type 2 IDDM Disc degeneration, lumbar Diverticulosis Eczema Fatigue GERD (gastroesophageal reflux disease) OCCASIONAL Internal hemorrhoids Morbid obesity Necrotizing fasciitis of ankle and foot S/P IV ANTIBIOTICS/PICC LINE/WOUND VAC DURING 02/2018 [facility] AD[facility] Pancreatitis ~2014/2015 Psoriasis Sleep apnea NO DEVICE S/P UPPP Tubular adenoma of colon Surgical History History of adenoidectomy History of cataract surgery bilt History of cataract surgery History of cholecystectomy History of colonoscopy Colonoscopy 01/21/[address] Garg. History of incision and drainage Hx of I&D of mendel-rectal abscess History of tonsillectomy History of tooth extraction S/P foot surgery, left Status post uvulopalatopharyngoplasty Family History Mother Family history of diabetes mellitus Father History of alcoholism History of liver cancer Sister Cancer Denies family history of Ovarian cancer Prostate cancer Crohn's disease Breast cancer Colorectal cancer Social History Smoking Status: Never smoker Second Hand Exposure: Yes ( smokes and is in house with pt); Hx Alcohol Use: No Hx Substance Use: No Preferred Language: Bengali Communication Ability: Effective Visual Impairment: No Limitations Hearing Ability: Normal Chief Merchandising Officer Required: No Beliefs That Will Affect Care: None marital status: Current Living Situation: Spouse Current Living Situation Comment: Lives with and dog current occupational status: employed 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 Feels Safe at Home: Yes Childhood Exposure to Second-Hand Smoke: Yes Diet Comment: "tries to feed me right, but sometimes it doesn't always happen" during the past year weight has: remained stable Physical Activity Frequency: Does not Exercise Seatbelt Use: never Assistive Devices: Glasses Review of Systems Review of Systems: The patient denies chest pain, palpitations, shortness of breath, dyspnea on exertion, cough, sore throat, vomiting, diarrhea , constipation, abdominal pain, pelvic pain, blood in urine or stool, dysuria, urinary frequency or urgency, lightheadedness, dizziness, headache, memory loss, loss of consciousness, abnormal bruising or bleeding, focal or generalized weakness, numbness or tingling in arms, generalized art hralgias or myalgias, back or neck pain, or night sweats. The review of systems is otherwise negative other than for that already noted above, and at least 10 systems have been reviewed. Physical Exam Physical Exam: The patient is awake, alert and oriented 3, well developed and well nourished, normocephalic and atraumatic, lying in bed and in mild distress secondary to left leg and foot pain HEENT--PERRL, EOMI, mucous membranes and oropharynx normal. Neck--supple. No JVD. No bruits. Thyroid normal, trachea midline, no adenopathy. Heart--normal S1 and S2. No murmurs, rubs or gallops. Lungs--clear bilaterally, no respiratory distress, no accessory muscle use. Abdomen--normal bowel sounds and soft. Nontender. Nondistended. Morbidly obese Extremities/dermatologic-1+ bilateral pretibial pitting edema, left greater than right. Moderately severe erythema from left great toe extending along dorsum of foot. Open wound left great toe distal phalanx Neurologic--cranial nerves II through XII grossly intact. Rheumatologic--limited exam Psychiatric--normal affect. Results & Data Results & Data ([facility]) Vital Signs (Past 12 Hours) Vital Signs Temp Pulse Resp BP Pulse Ox 08/07/21 13:35 73 100 08/07/21 13:00 87 17 165/69 H 97 08/07/21 12:31 73 18 171/94 H 98 08/07/21 11:30 72 20 157/71 H 98 08/07/21 11:00 67 17 149/75 H 97 08/07/21 10:51 16 99 08/07/21 10:25 37.1 C 91 H 20 148/73 H 96 Laboratory Results Laboratory Results WBC 11.66 K/uL (4.8-10.8) H 08/07/21 10:48 RBC 3.90 M/uL (4.7-6.1) L 08/07/21 10:48 Hgb 10.7 g/dL (14.0-18.0) L 08/07/21 10:48 Hct 32.9 % (42-52) L 08/07/21 10:48 MCV 84.4 fL (80-100) 08/07/21 10:48 MCH 27.4 pg (25-34) 08/07/21 10:48 MCHC 32.5 g/dL (32-36) 08/07/21 10:48 RDW Std Deviation 41.3 fL (36.4-46.3) 08/07/21 10:48 RDW Coeff of Mejia 13.5 % (11.5-14.5) 08/07/21 10:48 Plt Count 241 K/uL (130-400) 08/07/21 10:48 MPV 8.6 fL (7.4-10.4) 08/07/21 10:48 Immature Gran % (Auto) 0.4 % 08/07/21 10:48 Neut % (Auto) 77.9 % 08/07/21 10:48 Lymph % (Auto) 12.4 % 08/07/21 10:48 Tate % (Auto) 7.0 % 08/07/21 10:48 Eos % (Auto) 2.2 % 08/07/21 10:48 Baso % (Auto) 0.1 % 08/07/21 10:48 Neut # (Auto) 9.07 K/uL (1.4-6.5) H 08/07/21 10:48 Lymph # (Auto) 1.45 K/uL (1.2-3.4) 08/07/21 10:48 Tate # (Auto) 0.82 K/uL (0.11-0.59) H 08/07/21 10:48 Eos # (Auto) 0.26 K/uL (0-0.5) 08/07/21 10:48 Baso # (Auto) 0.01 K/uL (0-0.2) 08/07/21 10:48 Immature Gran # (Auto) 0.05 K/uL (0.00-0.02) H 08/07/21 10:48 PT 11.5 Seconds (9.0-12.0) 08/07/21 10:48 INR 1.1 (0.9-1.1) 08/07/21 10:48 APTT 30.3 Seconds (21.0-31.0) 08/07/21 10:48 PTT Ratio 1.1 08/07/21 10:48 Sodium 134 mmol/L (136-145) L 08/07/21 10:48 Potassium 5.3 mmol/L (3.5-5.1) H 08/07/21 10:48 Chloride 99 mmol/L (98-107) 08/07/21 10:48 Carbon Dioxide 28 mmol/L (21-32) 08/07/21 10:48 Anion Gap 7 (3-11) 08/07/21 10:48 BUN 37 mg/dl (6-23) H 08/07/21 10:48 Creatinine 2.20 mg/dl (0.6-1.4) H 08/07/21 10:48 Est Cr Clr Drug Dosing 49.3 ml/min 08/07/21 10:48 Est GFR ( Amer) 35.1 ml/min 08/07/21 10:48 Est GFR (Non-Af Amer) 30.3 ml/min 08/07/21 10:48 BUN/Creatinine Ratio 16.8 (10-20) 08/07/21 10:48 Glucose 268 mg/dl (70-99(Fasting)) H 08/07/21 10:48 Lactate 1.2 mmol/L (0.4-2.0) 08/07/21 10:48 Calcium 9.1 mg/dl (8.5-10.1) 08/07/21 10:48 Magnesium 2.0 mg/dl (1.7-2.4) 08/07/21 10:48 Total Bilirubin 0.6 mg/dl (0.2-1.0) 08/07/21 10:48 AST 10 U/L (13-39) L 08/07/21 10:48 ALT 8 U/L (7-52) 08/07/21 10:48 Alkaline Phosphatase 123 U/L (34-104) H 08/07/21 10:48 Troponin I High Sens 11.4 pg/ml (0-20) 08/07/21 10:48 Total Protein 7.4 gm/dl (6.0-8.3) 08/07/21 10:48 Albumin 3.3 gm/dl (3.4-5.0) L 08/07/21 10:48 Globulin 4.1 gm/dl (2.5-4.0) H 08/07/21 10:48 Albumin/Globulin Ratio 0.8 (0.9-2) L 08/07/21 10:48 Procalcitonin 0.25 ng/ml (0-0.5) 08/07/21 10:48 SARS-CoV-2, RNA, NAAT NEGATIVE (NEGATIVE) 08/07/21 12:55 Impressions Toe X-Ray 08/07/21 11:01 LEFT FIRST TOE 3 VIEWS CLINICAL HISTORY: First toe infection. FINDINGS: 3 views of the left first toe are obtained. No prior studies are available for comparison at the time of dictation. The skeletal structures are well mineralized. There is soft tissue edema throughout the first toe with foci of subcutaneous gas adjacent to the tuft of the distal phalanx. There is erosive/destructive change involving the proximal shaft and tuft of the first distal phalanx. There is are displaced fragments of the tuft, and likely nondisplaced fracture through the proximal shaft of the persistent pharynx which may be pathologic. The first proximal phalanx and metacarpal are normal as visualized. Mild arthritic changes seen at the first metatarsophalangeal joint. A 5 mm linear metallic foreign body is present along the plantar aspect of the first toe at the level of the base of the proximal phalanx. Chronic deformities partially visualized in the fifth metatarsal. IMPRESSION: 1. Erosive/destructive change of the first distal phalanx as above. Given the history of infection this is typical for osteomyelitis. 2. There are displaced fragments from the tuft of the first distal phalanx, as well as probable pathologic fracture through the proximal shaft. 3. Soft tissue edema and foci of soft tissue gas are present in the first toe. 4. A 5 mm linear metallic foreign body is present in the plantar soft tissues of the first toe. Electronically signed by: Freddy Gutierrez M.D. 08/07/2021 11:33 AM Venous Doppler Study 08/07/21 11:01 LEFT LOWER EXTREMITY VENOUS DOPPLER CLINICAL HISTORY: lle pain COMPARISON STUDY: No previous studies for comparison. TECHNIQUE: Sonography of the deep venous system of the left lower extremity was performed. Compression and augmentation were evaluated. FINDINGS: This study was compromised by suboptimal penetration. The left common femoral, superficial femoral and popliteal veins were compressible. Augmentation was normal. Flow was shown within the deep calf vessels. IMPRESSION: Mildly compromised exam but no evidence of deep venous thrombus within the left lower extremity. ACT 112: Negative or not required by law. Electronically signed by: Guillaume Sales M.D. 08/07/2021 12:30 PM Code Status & VTE Plan Code Status Full code VTE Prophylaxis Plan VTE Prophylaxis will be ordered: Yes PG Care Time/CCT Total # of Minutes Spent Total Time Spent with Patient: Total time spent is greater than 50% in coordination of care (as documented) at patient's floor/unit and/or counseling patient: Coding Level of Care Code 57774 Initial Inpt Care Lvl 3 Diagnoses Osteomyelitis of great toe of left foot M86.9 Hypertension I10 Dyslipidemia E78.5 Depression F32.9 GERD (gastroesophageal reflux disease) K21.9 Uncontrolled diabetes mellitus, with long-term current use of insulin E11.65; Z79.4 Chronic venous insufficiency I87.2 PAD (peripheral artery disease) I73.9 Acute kidney injury superimposed on chronic kidney disease N17.9; N18.9 BPH loc w urin obs/LUTS N40.1
[2021-08-07] MEDS ORDERED: FAMOTIDINE 20MG/5ML IV PUSH IV SCH (14:30)
[2021-08-07 15:36] LABS: Appearance Urine Clear (Clear); Bacteria Urine Automated Negative (Negative); Bilirubin Urine Negative (Negative); Blood Urine 1+ (Negative); Cast Urine Automated 0 /lpf (0-5); Color Urine Yellow; Glucose Urine UA 3+ (Negative); Ketones Urine Negative (Negative); Leukocyte Esterase Urine Negative (Negative); Nitrite Urine Negative (Negative); Protein Urine 2+ (Negative); Specific Gravity Urine 1.018 (1.000-1.030); Urobilinogen Urine Negative (Negative); pH Urine 5.5 (4.5-7.5)
[2021-08-07] MEDS ORDERED: hydrALAZINE HCL 20 MG/ML VIAL IV PRN (16:23)
[2021-08-07] MEDS ORDERED: GLUCAGON FOR INJ 1 MG VIAL IM PRN (18:15)
[2021-08-07] MEDS ORDERED: DEXTROSE 50% 50 ML SYRINGE IV PRN ×2 (18:15→18:32)
[2021-08-07] MEDS ORDERED: GLUCOSE 40% GEL 15 GM TUBE PO PRN ×2 (18:15→18:32)
[2021-08-07] MEDS ORDERED: CARBOHYDRATES FOR HYPOGLYCEMIA PO PRN ×2 (18:15→18:32)
[2021-08-07] MEDS ORDERED: GLUCOSE 10 TABS/TUBE PO PRN ×2 (18:15→18:32)
[2021-08-07] MEDS ORDERED: GLUCAGON FOR INJ 1 MG VIAL SQ PRN (18:32)
[2021-08-07] MEDS ORDERED: ONDANSETRON INJ 2 MG/ML 2 ML VIAL IV PRN (18:32)
[2021-08-07] MEDS ORDERED: HEPARIN SOD 5,000 UNIT/0.5 ML VIAL SQ SCH ×2 (18:32→21:30)
[2021-08-07] MEDS ORDERED: ACETAMINOPHEN 325 MG TAB PO PRN (18:32)
[2021-08-07] MEDS ORDERED: DAPTOmycin 425 MG in SYRINGE 0 ML IV SCH (19:00)
[2021-08-07] MEDS ORDERED: CEFEPIME 2,000 MG in SYRINGE 0 ML IV SCH (19:00)
[2021-08-07] MEDS: INSULIN ASPART PER UNIT SC SCH ×2 (19:55→21:13)
[2021-08-07] MEDS ORDERED: Nursing to Pharmacy Communication SCH (23:30)
[2021-08-08] MEDS: HEPARIN SOD 5,000 UNIT/0.5 ML VIAL SQ SCH ×3 (02:14→20:18)
[2021-08-08] MEDS: FAMOTIDINE 20 MG in SYRINGE 3 ML IV SCH ×2 (05:40→18:00)
[2021-08-08] MEDS: INSULIN ASPART PER UNIT SC SCH ×4 (06:09→20:57)
[2021-08-08 06:11] LABS: Hemoglobin 10.4 g/dL (14.0-18.0); Mean Corpuscular Hemoglobin 26.7 pg (25-34); Mean Corpuscular Hgb Conc 32.5 g/dL (32-36); Mean Corpuscular Volume 82.3 fL (80-100); Mean Platelet Volume 8.6 fL (7.4-10.4); Platelet Count 242 K/uL (130-400); RDW Coefficient of Variation 13.5 % (11.5-14.5); RDW Standard Deviation 40.8 fL (36.4-46.3); Red Blood Count 3.89 M/uL (4.7-6.1); White Blood Count 10.22 K/uL (4.8-10.8)
[2021-08-08 06:26] LABS: Albumin Globulin Ratio 0.8 (0.9-2); BUN Creatinine Ratio 17.7 (10-20); Bilirubin,Total 0.6 mg/dl (0.2-1.0); Calcium 8.9 mg/dl (8.5-10.1); Creatinine Clr Calc Pharmacy 54.5 ml/min; Est GFR (African American) 39.9 ml/min; Est GFR (Non-African American) 34.4 ml/min; Magnesium 2.1 mg/dl (1.7-2.4); Potassium 4.7 mmol/L (3.5-5.1)
[2021-08-08 06:45] LABS: Basophils # (auto) 0.02 K/uL (0-0.2); Basophils % (auto) 0.2 %; Eosinophils # (auto) 0.22 K/uL (0-0.5); Eosinophils % (auto) 2.2 %; Immature Granulocytes # (auto) 0.05 K/uL (0.00-0.02); Immature Granulocytes % (auto) 0.5 %; Lymphocytes # (auto) 1.04 K/uL (1.2-3.4); Lymphocytes % (auto) 10.2 %; Monocytes # (auto) 0.97 K/uL (0.11-0.59); Monocytes % (auto) 9.5 %; Neutrophils # (auto) 7.92 K/uL (1.4-6.5); Neutrophils % (auto) 77.4 %; RBC Morphology Unremarkable
[2021-08-08 07:22] LABS: Estimated Average Glucose 171 mg/dl; Hemoglobin A1C 7.6 % (4.5-5.6)
[2021-08-08] MEDS ORDERED: PHARMACY GLYCEMIC MGMT CONSULT PRN (08:26)
--- NOTE | 2021-08-08 08:41 | Hospitalist Progress Note ---
Date of Service August 08, 2021 Assessment & Plan (1) Osteomyelitis of great toe of left foot: Plan: Had been following wound care 2-3 months, recently worsening erythema/pain of LEFT GREAT TOE, was to undergo surgery with [facility] in 3 days Xray with: * 1. Erosive/destructive change of the first distal phalanx as above. Given the history of infection this is typical for osteomyelitis. * 2. There are displaced fragments from the tuft of the first distal phalanx, as well as probable pathologic fracture through the proximal shaft. * 3. Soft tissue edema and foci of soft tissue gas are present in the first toe. * 4. A 5 mm linear metallic foreign body is present in the plantar soft tissues of the first toe. PATIENT WORKS AT [employer]/ [facility] Was on Clinda/Doxy outpatient -- prior cx staph aureus, resistant to Clinda. Given Vanco/Ceftriaxone in ER, switched to Dapto/Cefepime. Holding statin while on Dapto Venous Doppler negative for DVT Consulted Dr Disla WBC now wnl, remains afebrile BCx pending s/p Left foot hallux amputation with Dr Disla. EBL 1mlL. Cx from OR pending Consider repeat imaging/CT/MRI if worsening on repeat evals given continued metallic body but per discussion with podiatry, no concerns despite being seen on post-op xray (2) Uncontrolled diabetes mellitus, with long-term current use of insulin: Plan: Hold empagliflozin, metformin and routine 18 units subcu 3 times daily with meals insulin aspart Continue insulin glargine 60 units subcu every morning, as his glucose has been uncontrolled in outpatient setting --> had been ordered 20u this morning given NPO ISS while inpatient A1c 7.6 BSGs acceptable Continue to monitor (3) PAD (peripheral artery disease): Plan: PAD/hypertension/chronic venous insufficiency- Hold aspirin, plans to resume in AM (4) Acute kidney injury superimposed on chronic kidney disease: Plan: Creatinine 2.20 upon admission, with range 1.63-2.15 Potassium 5.3 and sodium 134 on admission --> now normalized Ejection fraction of 60-65% on 10/27/2019 Holding lisinopril elevation of Cr, now back to baseline 1.98 Lasix resumed for AM as long as BP/Cr stable. Did have some congestion on CXR pre-op but denied SOB and lung exam not overly impressive. If BPs improved this evening could consider giving 1x dose but will monitor for now (5) Chronic venous insufficiency: Plan: Hold lasix while NPO, plans to resume in AM if BP/Cr stable (6) Hypertension: Plan: See above (7) Dyslipidemia: Plan: Continue atorvastatin 10 mg daily --> HOLDING WHILE ON DAPTO (8) Depression: Plan: Continue duloxetine 20 mg p.o. twice daily --> ordered as not on admit (9) GERD (gastroesophageal reflux disease): Plan: On pantoprazole 40 mg p.o. twice daily but will utilize famotidine IV BID while NPO, resume PPI BID following Monitor symptoms, none reported (10) BPH loc w urin obs/LUTS: Plan: On flomax at home --> resumed for this evening UOP not accurate as having unmeasured voids Monitor UOP Plan: continued inpatient stay Heparin SQ for DVT prophylaxis Admission and Anticipated Discharge Date Admission Date: August 07, 2021 Supervising Physician Co-Signing Physician Notes PA Supervision Note: I did not personally see or examine the patient today, but I verified all guevara points of ROXY Murphy's assessment and plan with the following exceptions/additions: None Subjective Attempted to see patient this morning but was already in OR. Eval post-op in room 388-2. States not having any pain. Does have sensation to pressure, but hx neuropathy and not to light touch. Had been on abx following with wound center but increased pain/redness and sent to ER. S/P amputation of great toe. Discussed monitoring cultures/tailoring antibiotics. He notes he does not wear oxygen at baseline, but denies any shortness of breath or dyspnea on exertion. To wean as tolerated, avoid excess IVF. Will hold off diuretics at this time but plan to resume usual furosemide in AM. He has had prior surgery to this foot but never any hardware placed. 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 Per discussion with Dr Disla, nothing of concern at this time. Will monitor. Review of Systems Review of Systems: All systems reviewed & are unremarkable except as noted in HPI & below Physical Exam Physical Exam: General: WD/WN obese male sitting up in bed, on the phone, NAD HEENT: head normocephalic, atraumatic, slightly dry mm but sipping on water, trachea midline without deviation Resp: CTAB, diminished throughout, no cough, no distress, on 2L NC post- operatively, able to talk in complete sentences CV: RRR, no m/r/g, pulses palpable but diminished, cap refill wnl MSK/Neuro: dressing to great toe amputation c/d with blood noted to distal aspect of dressing (dressing not removed), no sensation to light touch, but to pressure. able to wiggle toes/mobile. prior amputation distal 5th metatarsal Psych: AOx3, cooperative Results & Data Results & Data ([facility]) Vital Signs (Past 12 Hours) Vital Signs Temp Pulse Resp BP Pulse Ox 08/08/21 07:59 37.0 C 77 16 161/68 H 92 08/07/21 20:48 37.1 C 16 153/76 H 94 Laboratory Results 08/08/21 08/08/21 08/08/21 Range/Units 12:54 11:51 10:35 WBC (4.8-10.8) K/uL RBC (4.7-6.1) M/uL Hgb (14.0-18.0) g/dL Hct (42-52) % MCV (80-100) fL MCH (25-34) pg MCHC (32-36) g/dL RDW Std Deviation (36.4-46.3) fL RDW Coeff of Mejia (11.5-14.5) % Plt Count (130-400) K/uL MPV (7.4-10.4) fL Immature Gran % (Auto) % Neut % (Auto) % Lymph % (Auto) % [place] % (Auto) % Eos % (Auto) % Baso % (Auto) % Neut # (Auto) (1.4-6.5) K/uL Lymph # (Auto) (1.2-3.4) K/uL [place] # (Auto) (0.11-0.59) K/uL Eos # (Auto) (0-0.5) K/uL Baso # (Auto) (0-0.2) K/uL Immature Gran # (Auto) (0.00-0.02) K/uL RBC Morphology Sodium (136-145) mmol/L Potassium (3.5-5.1) mmol/L Chloride (98-107) mmol/L Carbon Dioxide (21-32) mmol/L Anion Gap (3-11) BUN (6-23) mg/dl Creatinine (0.6-1.4) mg/dl Est Cr Clr Drug Dosing ml/min Est GFR ( Amer) ml/min Est GFR (Non-Af Amer) ml/min BUN/Creatinine Ratio (10-20) Glucose (70-99(Fasting)) mg/dl POC Glucose 155 H 168 H 160 H (70-99) mg/dl Estimat Average Glucose mg/dl Hemoglobin A1c (4.5-5.6) % Calcium (8.5-10.1) mg/dl Magnesium (1.7-2.4) mg/dl Total Bilirubin (0.2-1.0) mg/dl AST (13-39) U/L ALT (7-52) U/L Alkaline Phosphatase (34-104) U/L Total Protein (6.0-8.3) gm/dl Albumin (3.4-5.0) gm/dl Globulin (2.5-4.0) gm/dl Albumin/Globulin Ratio (0.9-2) 08/08/21 08/08/21 08/08/21 Range/Units 08:16 05:56 05:26 WBC (4.8-10.8) K/uL RBC (4.7-6.1) M/uL Hgb (14.0-18.0) g/dL Hct (42-52) % MCV (80-100) fL MCH (25-34) pg MCHC (32-36) g/dL RDW Std Deviation (36.4-46.3) fL RDW Coeff of Mejia (11.5-14.5) % Plt Count (130-400) K/uL MPV (7.4-10.4) fL Immature Gran % (Auto) % Neut % (Auto) % Lymph % (Auto) % [place] % (Auto) % Eos % (Auto) % Baso % (Auto) % Neut # (Auto) (1.4-6.5) K/uL Lymph # (Auto) (1.2-3.4) K/uL [place] # (Auto) (0.11-0.59) K/uL Eos # (Auto) (0-0.5) K/uL Baso # (Auto) (0-0.2) K/uL Immature Gran # (Auto) (0.00-0.02) K/uL RBC Morphology Sodium (136-145) mmol/L Potassium (3.5-5.1) mmol/L Chloride (98-107) mmol/L Carbon Dioxide (21-32) mmol/L Anion Gap (3-11) BUN (6-23) mg/dl Creatinine (0.6-1.4) mg/dl Est Cr Clr Drug Dosing ml/min Est GFR ( Amer) ml/min Est GFR (Non-Af Amer) ml/min BUN/Creatinine Ratio (10-20) Glucose (70-99(Fasting)) mg/dl POC Glucose 144 H 174 H (70-99) mg/dl Estimat Average Glucose 171 mg/dl Hemoglobin A1c 7.6 H (4.5-5.6) % Calcium (8.5-10.1) mg/dl Magnesium (1.7-2.4) mg/dl Total Bilirubin (0.2-1.0) mg/dl AST (13-39) U/L ALT (7-52) U/L Alkaline Phosphatase (34-104) U/L Total Protein (6.0-8.3) gm/dl Albumin (3.4-5.0) gm/dl Globulin (2.5-4.0) gm/dl Albumin/Globulin Ratio (0.9-2) 08/08/21 08/08/21 08/07/21 Range/Units 05:26 05:26 20:48 WBC 10.22 (4.8-10.8) K/uL RBC 3.89 L (4.7-6.1) M/uL Hgb 10.4 L (14.0-18.0) g/dL Hct 32.0 L (42-52) % MCV 82.3 (80-100) fL MCH 26.7 (25-34) pg MCHC 32.5 (32-36) g/dL RDW Std Deviation 40.8 (36.4-46.3) fL RDW Coeff of Mejai 13.5 (11.5-14.5) % Plt Count 242 (130-400) K/uL MPV 8.6 (7.4-10.4) fL Immature Gran % (Auto) 0.5 % Neut % (Auto) 77.4 % Lymph % (Auto) 10.2 % [place] % (Auto) 9.5 % Eos % (Auto) 2.2 % Baso % (Auto) 0.2 % Neut # (Auto) 7.92 H (1.4-6.5) K/uL Lymph # (Auto) 1.04 L (1.2-3.4) K/uL [place] # (Auto) 0.97 H (0.11-0.59) K/uL Eos # (Auto) 0.22 (0-0.5) K/uL Baso # (Auto) 0.02 (0-0.2) K/uL Immature Gran # (Auto) 0.05 H (0.00-0.02) K/uL RBC Morphology Unremarkable Sodium 135 L (136-145) mmol/L Potassium 4.7 (3.5-5.1) mmol/L Chloride 101 (98-107) mmol/L Carbon Dioxide 26 (21-32) mmol/L Anion Gap 8 (3-11) BUN 35 H (6-23) mg/dl Creatinine 1.98 H (0.6-1.4) mg/dl Est Cr Clr Drug Dosing 54.5 ml/min Est GFR ( Amer) 39.9 ml/min Est GFR (Non-Af Amer) 34.4 ml/min BUN/Creatinine Ratio 17.7 (10-20) Glucose 168 H (70-99(Fasting)) mg/dl POC Glucose 193 H (70-99) mg/dl Estimat Average Glucose mg/dl Hemoglobin A1c (4.5-5.6) % Calcium 8.9 (8.5-10.1) mg/dl Magnesium 2.1 (1.7-2.4) mg/dl Total Bilirubin 0.6 (0.2-1.0) mg/dl AST 9 L (13-39) U/L ALT 8 (7-52) U/L Alkaline Phosphatase 120 H (34-104) U/L Total Protein 7.0 (6.0-8.3) gm/dl Albumin 3.0 L (3.4-5.0) gm/dl Globulin 4.0 (2.5-4.0) gm/dl Albumin/Globulin Ratio 0.8 L (0.9-2) 08/07/21 Range/Units 19:44 WBC (4.8-10.8) K/uL RBC (4.7-6.1) M/uL Hgb (14.0-18.0) g/dL Hct (42-52) % MCV (80-100) fL MCH (25-34) pg MCHC (32-36) g/dL RDW Std Deviation (36.4-46.3) fL RDW Coeff of Mejia (11.5-14.5) % Plt Count (130-400) K/uL MPV (7.4-10.4) fL Immature Gran % (Auto) % Neut % (Auto) % Lymph % (Auto) % [place] % (Auto) % Eos % (Auto) % Baso % (Auto) % Neut # (Auto) (1.4-6.5) K/uL Lymph # (Auto) (1.2-3.4) K/uL [place] # (Auto) (0.11-0.59) K/uL Eos # (Auto) (0-0.5) K/uL Baso # (Auto) (0-0.2) K/uL Immature Gran # (Auto) (0.00-0.02) K/uL RBC Morphology Sodium (136-145) mmol/L Potassium (3.5-5.1) mmol/L Chloride (98-107) mmol/L Carbon Dioxide (21-32) mmol/L Anion Gap (3-11) BUN (6-23) mg/dl Creatinine (0.6-1.4) mg/dl Est Cr Clr Drug Dosing ml/min Est GFR ( Amer) ml/min Est GFR (Non-Af Amer) ml/min BUN/Creatinine Ratio (10-20) Glucose (70-99(Fasting)) mg/dl POC Glucose 185 H (70-99) mg/dl Estimat Average Glucose mg/dl Hemoglobin A1c (4.5-5.6) % Calcium (8.5-10.1) mg/dl Magnesium (1.7-2.4) mg/dl Total Bilirubin (0.2-1.0) mg/dl AST (13-39) U/L ALT (7-52) U/L Alkaline Phosphatase (34-104) U/L Total Protein (6.0-8.3) gm/dl Albumin (3.4-5.0) gm/dl Globulin (2.5-4.0) gm/dl Albumin/Globulin Ratio (0.9-2) Diagnostic Findings Chest X-Ray 08/08/21 08:29 XR chest 1V portable CLINICAL HISTORY: Preoperative evaluation. COMPARISON STUDY: Chest radiograph November 16, 2020. Chest CT June 14, 2021. FINDINGS: No pneumothorax or pleural effusion is noted. No consolidation to suggest pneumonia. Borderline cardiomegaly and pulmonary vascular congestion is similar to prior exams. No evidence for overt pulmonary edema. IMPRESSION: 1. No acute cardiopulmonary findings. 2. No change in appearance of the chest. Borderline cardiomegaly with pulmonary vascular congestion. No overt pulmonary edema. ACT 112: Negative or not required by law. Electronically signed by: Guillaume Sales M.D. 08/08/2021 9:21 AM Foot X-Ray 08/08/21 11:42 LEFT FOOT 3 VIEWS CLINICAL HISTORY: Postoperative examination. FINDINGS: 3 views of the left foot are compared to study dated 07/19/2021 and correlated with radiographs of the left first toe dated 08/07/2021. The skeletal structures are osteopenic. There is postoperative change from amputation of the first toe at the metatarsophalangeal joint. Soft tissue edema and foci of soft tissue gas at the operative site are expected postoperative findings. There is chronic posttraumatic deformity and postoperative change noted in the distal fifth metatarsal. No acute fracture is seen. No foci of bony erosion or periostitis are identified. Moderate to advanced degenerative change is noted in the midfoot. There are large dorsal and plantar heel spurs. A linear metallic foreign body is again seen along the plantar aspect of the forefoot at the level of the second metatarsophalangeal joint. IMPRESSION: 1. Expected postoperative findings status post first toe amputation. 2. No fracture is seen. 3. A metallic foreign body is again seen along the plantar aspect of the forefoot. Electronically signed by: Freddy Gutierrez M.D. 08/08/2021 1:30 PM PG Care Time/CCT Total # of Minutes Spent Total Time Spent with Patient: Total time spent is greater than 50% in coordination of care (as documented) at patient's floor/unit and/or counseling patient: Coding Level of Care Code 51689 Subseq Hosp Care Lvl 3 Diagnoses Osteomyelitis of great toe of left foot M86.9 Uncontrolled diabetes mellitus, with long-term current use of insulin E11.65; Z79.4 PAD (peripheral artery disease) I73.9 Acute kidney injury superimposed on chronic kidney disease N17.9; N18.9 Chronic venous insufficiency I87.2 Hypertension I10 Dyslipidemia E78.5 Depression F32.9 GERD (gastroesophageal reflux disease) K21.9 BPH loc w urin obs/LUTS N40.1
[2021-08-08] MEDS ORDERED: INSULIN GLARGINE SOLOSTAR 100 UNITS/ML 3 ML PEN SQ SCH ×2 (09:00)
--- NOTE | 2021-08-08 09:23 | XRay Report ---
XR chest 1V portable CLINICAL HISTORY: Preoperative evaluation. COMPARISON STUDY: Chest radiograph November 16, 2020. Chest CT June 14, 2021. FINDINGS: No pneumothorax or pleural effusion is noted. No consolidation to suggest pneumonia. Border line cardiomegaly and pulmonary vascular congestion is similar to prior exams. No evidence for overt pulmonary edema. IMPRESSION: 1. No acute cardiopulmonary findings. 2. No change in appearance of the chest. Borderline cardiomegaly with pulmonary vascular congestion. No overt pulmonary edema. ACT 112: Negative or not required by law. Electronically signed by: Guillaume Sales M.D. 08/08/2021 9:21 AM
[2021-08-08] MEDS ORDERED: BUPIVACAINE 0.5 % 5 MG/1 ML MPF 30ML VIAL ONE (09:29)
[2021-08-08] MEDS ORDERED: LIDOCAINE 1% LOCAL 20 ML VIAL ONE (09:29)
[2021-08-08] MEDS ORDERED: BUPIVACAINE 0.25% 30 ML VIAL ONE (09:34)
[2021-08-08] MEDS ORDERED: MIDAZOLAM HCL 1 MG/ML 2ML VIAL ONE ×2 (09:34→11:03)
[2021-08-08] MEDS ORDERED: ONDANSETRON INJ 2 MG/ML 2 ML VIAL ONE (09:34)
[2021-08-08] MEDS ORDERED: PROPOFOL IV EMULSION 10 MG/ML 20 ML VIAL IV ONE ×3 (09:34→11:05)
[2021-08-08] MEDS ORDERED: fentaNYL citrate 100 MCG/2 ML VIAL ONE (09:35)
[2021-08-08] MEDS: DULoxetine HCL 20 MG CAP PO SCH ×2 (09:49→20:19)
--- NOTE | 2021-08-08 10:10 | Pharmacy Report ---
Pharmacy Glycemic Short Note 2 - Date of Service August 08, 2021 - Glycemic Short BSG Results (Last 24 hours): 08/07/21 08/07/21 08/07/21 10:48 19:44 20:48 Glucose 268 H POC Glucose 185 H 193 H 08/08/21 08/08/21 08/08/21 05:26 05:56 08:16 Glucose 168 H POC Glucose 174 H 144 H OUTPATIENT ANTIDIABETIC REGIMEN: * Basaglar 60 units qAM * Novolog 18 units TIDM * Jardiance 25 mg PO daily * metformin 1000 mg PO BID ASSESSMENT: * Patient is currently NPO for toe removal. * Per previous hospitalization, patient requires Lantus 40 units SQ daily + Novolog CF 25 CR 9. * Will reduce Lantus to 30 units due to NPO status. * Change Novolog to above parameters. PLAN FOR INPATIENT GLYCEMIC CONTROL: * Hold outpatient oral diabetes medications * Basal insulin * Lantus 30 units SQ daily * Bolus insulin * NovoLog per scale ACHS or Q6hrs while NPO * Goal Range: Low 110 mg/dL - High 140 mg/dL * Correction Factor: 25 mg/dL/unit * Nutritional / Prandial insulin per carb ratio of 1 unit per 9 grams CHO consumed
--- NOTE | 2021-08-08 10:25 | History & Physical Bridge Note ---
Date of Service August 08, 2021 History & Physical Bridge Note I have examined the patient, reviewed the History & Physical and in the interval since the performance of the History & Physical I have noted the following changes of clinical significance: no changes noted left foot surgery.
[2021-08-08] MEDS ORDERED: fentaNYL citrate 100 MCG/2 ML VIAL IV PRN (10:49)
[2021-08-08] MEDS ORDERED: ePHEDrine sulfate 50 MG/ML AMP IV PRN (10:49)
[2021-08-08] MEDS ORDERED: ONDANSETRON INJ 2 MG/ML 2 ML VIAL IV PRN (10:49)
[2021-08-08] MEDS ORDERED: ATROPINE SULFATE 0.1 MG/ML 10ML SYR IV PRN (10:49)
--- NOTE | 2021-08-08 10:49 | Anesthesiology Consultation ---
Date of Service August 08, 2021 Assessment & Plan Chart Review Chart Review: Acceptable Risk for Surgery and Patient NOT seen in Pre Admission Testing Consults Requested none ASA ASA3 Proposed Anesthesia Anesthesia Type: MAC Risk / Benefits Reviewed With: PT / POA / Parent / Guardian, Accepts Plan and Informed Consent Obtained History Surgery Operation Date: 08/08/21 10:15 Proposed Procedures p Left Great Toe Amputation - Kristy Disla DPM Height/Weight Height: 5 ft 9 in Weight: 152.8 kg Allergies Allergy/AdvReac Type Severity Reaction Status Date / Time Penicillins Allergy Intermediate UE SWELLING Verified 08/07/21 16:12 Medications Home Medications Medication Instructions Recorded Confirmed Last Taken lisinopril 20 mg tablet 20 mg PO QAM #90 tab 10/11/19 08/07/21 08/07/21 lactobacillus combination no.8 3 3,000 mmu cells PO BID 06/12/20 08/07/21 08/07/21 08:00 billion cell capsule (Adult Probiotic) aspirin 81 mg chewable tablet 81 mg PO QAM 07/26/20 08/07/21 08/07/21 blood sugar diagnostic (Accu-Chek ea 08/23/20 07/31/21 Unknown Guide test strips) blood-glucose meter (Accu-Chek ea 08/23/20 07/31/21 Unknown Guide Glucose Meter) lancets (Accu-Chek Fastclix Lancet ea 08/23/20 07/31/21 Unknown Drum) metformin 500 mg tablet 1,000 mg PO BID 90 Days #360 tab 11/10/20 08/07/21 08/07/21 08:00 duloxetine 20 mg capsule,delayed 20 mg PO BID #180 cap 12/01/20 08/07/21 08/07/21 release (Cymbalta) furosemide 20 mg tablet 20 mg PO QAM #30 tab 12/04/20 08/07/21 08/07/21 FreeStyle Remigio 2 [place] (flash #1 ea NS 01/24/21 07/31/21 Unknown glucose scanning reader) FreeStyle Remigio 2 Sensor (flash #7 ea NS 01/24/21 07/31/21 Unknown glucose sensor) insulin glargine 100 unit/mL (3 60 unit SQ QAM ml 02/15/21 08/07/21 08/07/21 mL) subcutaneous pen (Basaglar KwikPen U-100 Insulin) sodium zirconium cyclosilicate 5 5 g PO .COMPLEX #40 ea 03/15/21 08/07/21 0 08/06/21 gram oral powder packet (Lokelnj) atorvastatin 10 mg tablet 10 mg PO QPM #30 tab 04/05/21 08/07/21 08/06/21 pantoprazole 40 mg tablet,delayed 40 mg PO BID #60 tab 04/05/21 08/07/21 08:00 release insulin aspart U-100 100 unit/mL 18 unit SQ TIDM ml 04/18/21 08/07/21 08/07/21 (3 mL) subcutaneous pen (Novolog Flexpen U-100 Insulin aspart) BD Ultra-Fine Mini Pen Needle 31 #400 ea NS 06/07/21 07/31/21 Unknown gauge x 3/16" (pen needle, diabetic) empagliflozin 25 mg tablet 25 mg PO DAILY #90 tab 07/20/21 08/07/21 08/06/21 doxycycline hyclate 100 mg tablet 100 mg PO bid #28 tab 08/03/21 08/07/21 08/07/21 ergocalciferol (vitamin D2) 1,250 1,250 mcg PO WK 08/07/21 08/07/21 Unknown mcg (50,000 unit) capsule tamsulosin 0.4 mg capsule 0.4 mg PO HS 08/07/21 08/07/21 08/06/21 Active Medications Generic Name Dose Route Start Last Admin Trade Name Freq PRN Reason Stop Dose Admin Duloxetine HCl 20 mg 08/08/21 09:00 08/08/21 09:49 Duloxetine Hcl 20 Mg Cap PO 09/07/21 08:59 20 mg BID LIANA Administration Heparin Sodium (Porcine) 7,500 units 08/08/21 03:00 08/08/21 02:14 Heparin Sod 5,000 Unit/0.5 Ml Vial SQ 09/07/21 02:59 Not Given Q8H LIANA Hydralazine HCl 10 mg 08/07/21 16:23 08/07/21 16:45 Hydralazine Hcl 20 Mg/Ml Vial IV 09/06/21 16:22 10 mg Q4H PRN Administration Blood Pressure - High Famotidine 20 mg/ Syringe 5 mls @ 2.5 mls/min 08/08/21 06:00 08/08/21 05:40 IV 09/07/21 05:59 2.5 mls/min Q12H LIANA Administration Cefepime HCl 2,000 mg/ Syringe 20 mls @ 5 mls/min 08/07/21 19:00 08/07/21 19:08 IV 08/14/21 18:59 5 mls/min Q24H LIANA Administration Protocol Insulin Aspart 0 units 08/08/21 06:00 08/08/21 06:09 Insulin Aspart Per Unit SC 09/07/21 05:59 1 units Q6 LIANA Administration Insulin Glargine 30 units 08/08/21 09:00 08/08/21 09:50 Insulin Glargine Solostar 100 Units/Ml 3 Ml Pen SQ 09/07/21 08:59 30 units QAM LIANA Administration Ondansetron HCl 4 mg 08/07/21 18:32 08/08/21 05:40 Ondansetron Inj 2 Mg/Ml 2 Ml Vial IV 09/06/21 18:31 4 mg Q6H PRN Administration Nausea NPO Date Last Intake of Fluids: 08/07/21 Time Last Intake of Fluids: 23:30 Last Intake of Fluids Comment: Ice water Date Last Intake of Solids: 08/07/21 Time Last Intake of Solids: 21:00 Past Medical History Medical History (Updated 08/07/21 @ 14:32 by Jorge Heredia DO) Acquired hallux rigidus of right foot BPH loc w urin obs/LUTS (Unknown) Constipation Diabetes mellitus, type 2 IDDM Disc degeneration, lumbar Diverticulosis Eczema Fatigue GERD (gastroesophageal reflux disease) OCCASIONAL Internal hemorrhoids Morbid obesity Necrotizing fasciitis of ankle and foot S/P IV ANTIBIOTICS/PICC LINE/WOUND VAC DURING 02/2018 [facility] ADMISS[facility] Pancreatitis ~ Psoriasis Sleep apnea NO DEVICE S/P UPPP Tubular adenoma of colon Exercise / Class Metabolic Activity II 4-5 Yardwork/Stairs/Walk up hill Past Family History Family History Mother Family history of diabetes mellitus Father History of alcoholism History of liver cancer Sister Cancer Denies family history of Ovarian cancer Prostate cancer Crohn's disease Breast cancer Colorectal cancer Past Surgical History Surgical History History of adenoidectomy History of cataract surgery bilt History of cataract surgery History of cholecystectomy History of colonoscopy Colonoscopy 01/21/[address] Garg. History of incision and drainage Hx of I&D of mendel-rectal abscess History of tonsillectomy History of tooth extraction S/P foot surgery, left Status post uvulopalatopharyngoplasty Past Anesthesia History No Hx of Anesthesia Complications and No Family Hx of Anesthesia Complications History of PONV No Hx of PONV and No Hx of Motion Sickness Social History Smoking Status: Former smoker tobacco type: cigarettes Hx Alcohol Use: No Alcohol type: beer alcohol intake frequency: holidays/special occasions only Hx Substance Use: No substance use type: does not use Physical Exam Vital Signs Last Vital Signs Temp 37.1 C 08/08/21 10:24 Pulse 65 08/08/21 10:24 Resp 20 08/08/21 10:24 BP 118/57 L 08/08/21 10:24 Pulse Ox 20 L 08/08/21 10:24 Constitutional + morbidly obese ENMT Mouth: no dentition abnormality Thyromental Distance: > or= 3.5 Finger Breadths Mallampati Class: II Neck normal visual inspection and + facial hair Respiratory normal respiratory effort Auscultation: lungs clear to auscultation bilaterally Cardiovascular Rate/Rhythm: regular rate and regular rhythm Psychiatric Orientation: alert Testing Laboratory Results 08/08/21 05:26 08/08/21 05:26 PT 11.5 Seconds (9.0-12.0) 08/07/21 10:48 INR 1.1 (0.9-1.1) 08/07/21 10:48 APTT 30.3 Seconds (21.0-31.0) 08/07/21 10:48 Hemoglobin A1c 7.6 % (4.5-5.6) H 08/08/21 05:26 Urine Color Yellow 08/07/21 15:10 Urine Appearance Clear (Clear) 08/07/21 15:10 Urine pH 5.5 (4.5-7.5) 08/07/21 15:10 Ur Specific [place] 1.018 (1.000-1.030) 08/07/21 15:10 Urine Protein 2+ (Negative) H 08/07/21 15:10 Urine Glucose (UA) 3+ (Negative) H 08/07/21 15:10 Urine Ketones Negative (Negative) 08/07/21 15:10 Urine Nitrite Negative (Negative) 08/07/21 15:10 Ur Leukocyte Esterase Negative (Negative) 08/07/21 15:10 Urine WBC (Auto) 1-5 /hpf (0-5) 08/07/21 15:10 Urine RBC (Auto) 5-10 /hpf (0-4) H 08/07/21 15:10 U Hyaline Cast (Auto) 0 /lpf (0-5) 08/07/21 15:10 U Epithel Cells (Auto) 10-20 /lpf (0-5) H 08/07/21 15:10 Urine Bacteria (Auto) Negative (Negative) 08/07/21 15:10 08/08/21 08/08/21 08/08/21 10:35 08:16 05:56 POC Glucose 160 H 144 H 174 H
--- NOTE | 2021-08-08 11:42 | Post Operative Brief Note ---
Immediate Post Op Note v1 Date of Surgery August 08, 2021 Pre & Post Diagnosis Operation Date: 08/08/21 10:15 Pre-Op Diagnosis: SORE TOE Post-Op Diagnosis: SORE TOE I identified the patient and participated in the time-out.: Yes Procedure Operation Date: 08/08/21 10:15 Actual Procedures p Left Great Toe Amputation(Left) - Kristy Disla DPM Surgeon Kristy Disla DPM [employer] Tatyana Estimated Blood Loss 1 Findings Consistent with Post-Op Diagnosis
--- NOTE | 2021-08-08 12:21 | Anesthesiology Progress Note ---
Date of Service August 08, 2021 Anesthesia Post Procedure Vital Signs Vital Signs: Temp Pulse Pulse Pulse Pulse Resp BP 08/08/21 12:14 36.8 C 67 15 08/08/21 12:05 66 14 08/08/21 11:55 65 13 08/08/21 11:47 08/08/21 11:46 36.6 C 70 15 08/08/21 10:24 37.1 C 65 20 08/08/21 09:53 08/08/21 07:59 37.0 C 77 16 08/07/21 20:48 37.1 C 16 08/07/21 17:30 68 21 167/87 H 08/07/21 17:11 70 18 146/76 H 08/07/21 16:42 67 20 185/78 H 08/07/21 16:00 68 23 160/87 H 08/07/21 15:00 72 22 179/82 H 08/07/21 14:30 72 21 194/97 H 08/07/21 14:00 72 19 157/81 H 08/07/21 13:35 73 08/07/21 13:30 73 20 181/96 H 08/07/21 13:00 87 17 165/69 H 08/07/21 12:31 73 18 171/94 H BP BP Pulse Ox 08/08/21 12:14 126/63 94 08/08/21 12:05 133/67 96 08/08/21 11:55 139/74 100 08/08/21 11:47 127/67 08/08/21 11:46 145/102 H 100 08/08/21 10:24 118/57 L 20 L 08/08/21 09:53 118/63 08/08/21 07:59 161/68 H 92 08/07/21 20:48 153/76 H 94 08/07/21 17:30 97 08/07/21 17:11 100 08/07/21 16:42 96 08/07/21 16:00 100 08/07/21 15:00 97 08/07/21 14:30 98 08/07/21 14:00 96 08/07/21 13:35 100 08/07/21 13:30 94 08/07/21 13:00 97 08/07/21 12:31 98 Pain Intensity Left Foot: Pain Intensity: 8 Transfer of Care Handoff Completed per policy Notes Mental Status: alert / awake / arousable Patient Amnestic to Procedure: Yes Nausea / Vomiting: adequately controlled Pain: adequately controlled Airway Patency, RR, SpO2: stable & adequate BP & HR: stable & adequate Hydration State: stable & adequate Anesthetic Complications: no major complications apparent
--- NOTE | 2021-08-08 12:57 | Operative Report ---
DATE OF SURGERY: 08/07/2021. ATTENDING PHYSICIAN: Luis Crain MD. The patient is admitted on medicine service. PREOPERATIVE DIAGNOSES: Left foot osteomyelitis, gas gangrene, diabetic foot ulcer with cellulitis. POSTOPERATIVE DIAGNOSES: Left foot osteomyelitis, gas gangrene, diabetic foot ulcer with cellulitis. PROCEDURE: Left foot hallux amputation. HEMOSTASIS: Pneumatic ankle tourniquet at 250 mmHg. BLOOD LOSS: 1 mL. ANESTHESIA: Local IV sedation. DESCRIPTION OF PROCEDURE: The patient was brought into the operating room and placed in the supine p osition. The left lower extremity was prepped and draped in the usual sterile manner. A 1:1 mix of 1% lidocaine plain, 0.5% Marcaine was utilized to anesthetize the left foot in the area of the left h allux. Next, a timeout was taken, the patient was identified, procedure verified, anesthesia induced . Tourniquet was inflated and the procedure began. A fishmouth incision was made at the left hallux . The left hallux was disarticulated at the metatarsophalangeal joint. It was passed off the table a nd sent to pathology for permanent specimen. Cultures were obtained from the area of the toe, which was the distal phalanx, which had the known osteomyelitis. I did note that all of the soft tissue an d bone appeared to be normal without purulent drainage or infection at the metatarsophalangeal joint. The metatarsal head had normal articular surfaces and normal bone structure. At this point, the pu lse lavage was utilized with 1000 mL of normal saline. Next, the area was dried and any redundant sk in and soft tissue was removed with a #15 blade and forceps and the hallux amputation site was closed with 3-0 Vicryl and 2-0 Prolene in simple interrupted stitches. The patient had compressive and cor rective dressings applied to the left lower extremity. The tourniquet was deflated and the patient w as taken to the recovery room with all vital signs stable and intact. During the procedure again, cul tures were obtained, both aerobic and anaerobic as well as the toe being sent to pathology. The kevin ent will return to medicine service on the floor and continue his antibiotics and medication [facility]. Job ID: [id number]
--- NOTE | 2021-08-08 13:31 | XRay Report ---
LEFT FOOT 3 VIEWS CLINICAL HISTORY: Postoperative examination. FINDINGS: 3 views of the left foot are compared to study dated 07/19/2021 and correlated with radiogra phs of the left first toe dated 08/07/2021. The skeletal structures are osteopenic. There is postoperat wong change from amputation of the first toe at the metatarsophalangeal joint. Soft tissue edema and f oci of soft tissue gas at the operative site are expected postoperative findings. There is chronic po sttraumatic deformity and postoperative change noted in the distal fifth metatarsal. No acute fractur e is seen. No foci of bony erosion or periostitis are identified. Moderate to advanced degenerative c hange is noted in the midfoot. There are large dorsal and plantar heel spurs. A linear metallic forei gn body is again seen along the plantar aspect of the forefoot at the level of the second metatarsoph alangeal joint. IMPRESSION: 1. Expected postoperative findings status post first toe amputation. 2. No fracture is seen. 3. A metallic foreign body is again seen along the plantar aspect of the forefoot. Electronically signed by: Freddy Gutierrez M.D. 08/08/2021 1:30 PM
[2021-08-08] MEDS: CEFEPIME 2,000 MG in SYRINGE 0 ML IV SCH ×2 (13:54→23:24)
[2021-08-08] MEDS ORDERED: Nursing to Pharmacy Communication SCH (14:30)
[2021-08-08] MEDS ORDERED: DAPTOmycin 625 MG in SYRINGE 0 ML IV SCH (19:00)
[2021-08-08] MEDS ORDERED: TAMSULOSIN HCL 0.4 MG CAP PO SCH (21:00)
[2021-08-09] MEDS: FAMOTIDINE 20 MG in SYRINGE 3 ML IV SCH (05:51)
[2021-08-09] MEDS: HEPARIN SOD 5,000 UNIT/0.5 ML VIAL SQ SCH ×2 (05:51→13:14)
--- NOTE | 2021-08-09 08:00 | Podiatry Consultation ---
Date of Consultation August 09, 2021 Assessment & Plan (1) Cellulitis: Site of cellulitis: unspecified site Qualified Code(s): L03.90 - Cellulitis, unspecified (2) Osteomyelitis: Patient is doing well today, as soon as labs and cultures are completed will have patient d/c on likely oral abx with follow up with me in 1 week Laterality: unspecified laterality Osteomyelitis type: unspecified type (3) Osteomyelitis of great toe of left foot: (4) PAD (peripheral artery disease): (5) Diabetic ulcer of left foot: History of Present Illness Reason for Consultation: Post op left foot hallux amputation Attending Physician: Shanika Carson MD History of Present Illness Patient was seen and examined at bedside today POD #1 s/p left hallux amputation DOS: 08/08/2021 Patient doing well and without pain or discomfort, dressings removed and amputation site evaluated, all sutures intact and area well healing, all osteomyelitis removed with amputation Cultures (intra op) still pending, once received, abx recommendations will be made and patient may be d/c home with follow up with me freitas next week Patient had no concerns during my visit today Allergies Allergy/AdvReac Type Severity Reaction Status Date / Time Penicillins Allergy Intermediate UE SWELLING Verified 08/07/21 16:12 Home Medications Medication Instructions Recorded Confirmed Type lisinopril 20 mg tablet 20 mg PO QAM #90 tab 10/11/19 08/07/21 Rx lactobacillus combination no.8 3 3,000 mmu cells PO BID 06/12/20 08/07/21 History billion cell capsule (Adult Probiotic) aspirin 81 mg chewable tablet 81 mg PO QAM 07/26/20 08/07/21 History blood sugar diagnostic (Accu-Chek ea 08/23/20 07/31/21 History Guide test strips) blood-glucose meter (Accu-Chek ea 08/23/20 07/31/21 History Guide Glucose Meter) lancets (Accu-Chek Fastclix Lancet ea 08/23/20 07/31/21 History Drum) metformin 500 mg tablet 1,000 mg PO BID 90 Days #360 tab 11/10/20 08/07/21 Rx duloxetine 20 mg capsule,delayed 20 mg PO BID #180 cap 12/01/20 08/07/21 Rx release (Cymbalta) furosemide 20 mg tablet 20 mg PO QAM #30 tab 12/04/20 08/07/21 Rx FreeStyle Remigio 2 Mccloud (flash #1 ea NS 01/24/21 07/31/21 Rx glucose scanning reader) FreeStyle Remigio 2 Sensor (flash #7 ea NS 01/24/21 07/31/21 Rx glucose sensor) insulin glargine 100 unit/mL (3 60 unit SQ QAM ml 02/15/21 08/07/21 History mL) subcutaneous pen (Basaglar KwikPen U-100 Insulin) sodium zirconium cyclosilicate 5 5 g PO .COMPLEX #40 ea 03/15/21 08/07/21 Rx gram oral powder packet (Lokelma) atorvastatin 10 mg tablet 10 mg PO QPM #30 tab 04/05/21 08/07/21 Rx pantoprazole 40 mg tablet,delayed 40 mg PO BID #60 tab 04/05/21 08/07/21 Rx release insulin aspart U-100 100 unit/mL 18 unit SQ TIDM ml 04/18/21 08/07/21 History (3 mL) subcutaneous pen (Novolog Flexpen U-100 Insulin aspart) BD Ultra-Fine Mini Pen Needle 31 #400 ea NS 06/07/21 07/31/21 Rx gauge x 3/16" (pen needle, diabetic) empagliflozin 25 mg tablet 25 mg PO DAILY #90 tab 07/20/21 08/07/21 Rx doxycycline hyclate 100 mg tablet 100 mg PO bid #28 tab 08/03/21 08/07/21 Rx ergocalciferol (vitamin D2) 1,250 1,250 mcg PO WK 08/07/21 08/07/21 History mcg (50,000 unit) capsule tamsulosin 0.4 mg capsule 0.4 mg PO HS 08/07/21 08/07/21 History Patient History Medical History Acquired hallux rigidus of right foot BPH loc w urin obs/LUTS (Unknown) Constipation Diabetes mellitus, type 2 IDDM Disc degeneration, lumbar Diverticulosis Eczema Fatigue GERD (gastroesophageal reflux disease) OCCASIONAL Internal hemorrhoids Morbid obesity Necrotizing fasciitis of ankle and foot S/P IV ANTIBIOTICS/PICC LINE/WOUND VAC DURING 02/2018 [facility] Pancreatitis ~ Psoriasis Sleep apnea NO DEVICE S/P UPPP Tubular adenoma of colon Surgical History History of adenoidectomy History of cataract surgery bilt History of cataract surgery History of cholecystectomy History of colonoscopy Colonoscopy 01/21/[address] Garg. History of incision and drainage Hx of I&D of mendel-rectal abscess History of tonsillectomy History of tooth extraction S/P foot surgery, left Status post uvulopalatopharyngoplasty Family History Mother Family history of diabetes mellitus Father History of alcoholism History of liver cancer Sister Cancer Denies family history of Ovarian cancer Prostate cancer Crohn's disease Breast cancer Colorectal cancer Social History Smoking Status: Former smoker Second Hand Exposure: Yes; Hx Alcohol Use: No Hx Substance Use: No Preferred Language: Portuguese Communication Ability: Effective Visual Impairment: No Limitations Hearing Ability: Normal Owner Consulting Engineer Required: No Beliefs That Will Affect Care: None marital status: Current Living Situation: Spouse Current Living Situation Comment: Lives with and dog current occupational status: employed 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 Feels Safe at Home: Yes Childhood Exposure to Second-Hand Smoke: Yes Diet Comment: "tries to feed me right, but sometimes it doesn't always happen" during the past year weight has: remained stable Physical Activity Frequency: Does not Exercise Seatbelt Use: never Assistive Devices: None Physical Exam Skin: left foot s/p hallux amputation, all sutures intact without dehiscence, reduction in swelling and erythema noted, patient noted to me that he no longer had the calf pain that he wad describing to me before surgery, new dressings applied today consisting of adaptic/gauze/kerlex and AICHA bandage, patient had received his pos top shoe as well Results & Data ([facility]) Vital Signs (Past 12 Hours) Vital Signs Temp Pulse Resp BP Pulse Ox 08/09/21 03:57 36.9 C 69 16 112/57 L 96 08/08/21 22:24 37.1 C 80 18 132/65 92
[2021-08-09 08:21] LABS: Basophils # (auto) 0.03 K/uL (0-0.2); Basophils % (auto) 0.5 %; Eosinophils # (auto) 0.32 K/uL (0-0.5); Eosinophils % (auto) 5.3 %; Hematocrit (blood only) 30.7 % (42-52); Hemoglobin 9.9 g/dL (14.0-18.0); Immature Granulocytes # (auto) 0.03 K/uL (0.00-0.02); Immature Granulocytes % (auto) 0.5 %; Lymphocytes # (auto) 1.02 K/uL (1.2-3.4); Lymphocytes % (auto) 16.8 %; Mean Corpuscular Hemoglobin 27.1 pg (25-34); Mean Corpuscular Hgb Conc 32.2 g/dL (32-36); Mean Corpuscular Volume 84.1 fL (80-100); Mean Platelet Volume 8.3 fL (7.4-10.4); Monocytes # (auto) 0.57 K/uL (0.11-0.59); Monocytes % (auto) 9.4 %; Neutrophils # (auto) 4.09 K/uL (1.4-6.5); Neutrophils % (auto) 67.5 %; Platelet Count 229 K/uL (130-400); RDW Coefficient of Variation 13.5 % (11.5-14.5); RDW Standard Deviation 41.3 fL (36.4-46.3); Red Blood Count 3.65 M/uL (4.7-6.1); White Blood Count 6.06 K/uL (4.8-10.8)
[2021-08-09 08:51] LABS: Albumin Globulin Ratio 0.7 (0.9-2); Albumin Level 2.8 gm/dl (3.4-5.0); BUN Creatinine Ratio 18.9 (10-20); Bilirubin,Total 0.4 mg/dl (0.2-1.0); Calcium 8.7 mg/dl (8.5-10.1); Creatinine Clr Calc Pharmacy 52.4 ml/min; Est GFR (Non-African American) 32.8 ml/min; Globulin 3.9 gm/dl (2.5-4.0); Magnesium 2.2 mg/dl (1.7-2.4); Potassium 4.6 mmol/L (3.5-5.1); Total Protein 6.7 gm/dl (6.0-8.3)
--- NOTE | 2021-08-09 08:54 | Electrocardiogram Report ---
Test Reason : Blood Pressure : / mmHG Vent. Rate : 064 BPM Atrial Rate : 064 BPM P-R Int : 158 ms QRS Dur : 094 ms QT Int : 396 ms P-R-T Axes : 045 -10 059 degrees QTc Int : 408 ms Normal sinus rhythm Normal ECG When compared with ECG of 10-MAY-2019 08:59, No significant change was found Confirmed by Fransico Montelongo ([id number]) on 08/09/2021 8:54:20 AM Referred By: Confirmed By:Fransico Montelongo
[2021-08-09] MEDS: INSULIN ASPART PER UNIT SC SCH ×2 (08:58→13:13)
[2021-08-09] MEDS ORDERED: ASPIRIN 81 MG ECTAB PO SCH (09:00)
[2021-08-09] MEDS ORDERED: FUROSEMIDE 20 MG TAB PO SCH (09:00)
[2021-08-09] MEDS ORDERED: INSULIN GLARGINE SOLOSTAR 100 UNITS/ML 3 ML PEN SQ SCH ×2 (09:00)
[2021-08-09] MEDS: DULoxetine HCL 20 MG CAP PO SCH (09:01)
--- NOTE | 2021-08-09 12:24 | Pharmacy Report ---
Pharmacy Glycemic Short Note 2 - Date of Service August 09, 2021 - Glycemic Short BSG Results (Last 24 hours): 08/08/21 08/08/21 08/08/21 12:54 17:06 20:43 Glucose POC Glucose 155 H 166 H 168 H 08/09/21 08/09/21 08/09/21 07:57 08:04 12:04 Glucose 175 H POC Glucose 159 H 229 H OUTPATIENT ANTIDIABETIC REGIMEN: * Basaglar 60 units qAM * Novolog 18 units TIDM * Jardiance 25 mg PO daily * metformin 1000 mg PO BID ASSESSMENT: 08/09 * Patients BSG BSG well controlled yesterday, Fasting this AM 159 mg/dL * Increased Lantus ~15% today, continue to titrate up as needed with fasting * Lunch BSG elevated, will tighten novolog parameter 08/08 * Patient is currently NPO for toe removal. * Per previous hospitalization, patient requires Lantus 40 units SQ daily + Novolog CF 25 CR 9. * Will reduce Lantus to 30 units due to NPO status. * Change Novolog to above parameters. PLAN FOR INPATIENT GLYCEMIC CONTROL: * Hold outpatient oral diabetes medications * Basal insulin * Lantus 35 units SQ daily * Bolus insulin * NovoLog per scale ACHS or Q6hrs while NPO * Goal Range: Low 110 mg/dL - High 140 mg/dL * Correction Factor: 25 mg/dL/unit * Nutritional / Prandial insulin per carb ratio of 1 unit per 8 grams CHO consumed
--- NOTE | 2021-08-09 12:44 | Discharge Summary ---
Date of Service August 09, 2021 Admission HPI Per Admitting Provider The patient is a 65-year-old male with a past medical history including PAD, diabetic ulcer of left foot, hypertension, dyslipidemia, depression, GERD, nonproliferative diabetic retinopathy, peripheral neuropathy, diabetic ulcer of right great toe, chronic venous insufficiency, CKD and obesity. He has been following with wound care clinic for the past 2 to 3 months for a diabetic foot infection over the left great toe. He was referred from wound care clinic to orthopedic surgery, who then referred the patient to the ED for further assessment. X-rays in the emergency department show a metallic foreign body 5 mm, and x-ray findings of osteomyelitis of great toe and soft tissue gas Admission Exam Per Admitting Provider Chief Complaint: The patient is referred to the emergency department after having been referred from the wound care clinic to the orthopedic surgery regarding worsening left great toe infection Primary Care Provider: Dora Sales MD The patient is a 65-year-old male with a past medical history including PAD, diabetic ulcer of left foot, hypertension, dyslipidemia, depression, GERD, nonproliferative diabetic retinopathy, peripheral neuropathy, diabetic ulcer of right great toe, chronic venous insufficiency, CKD and obesity. He has been following with wound care clinic for the past 2 to 3 months for a diabetic foot infection over the left great toe. He was referred from wound care clinic to orthopedic surgery, who then referred the patient to the ED for further assessment. X-rays in the emergency department show a metallic foreign body 5 mm, and x-ray findings of osteomyelitis of great toe and soft tissue gas Principal Diagnosis Osteomyelitis, Left Hallux Discharge Exam General: WD/WN obese male resting comfortably in bed, NAD HEENT: head normocephalic, atraumatic, mmm but sipping on water, trachea midline without deviation Resp: CTAB, diminished throughout, no cough, no distress, able to talk in complete sentences CV: RRR, no m/r/g, pulses palpable but diminished, cap refill wnl MSK/Neuro: dressing to great toe amputation c/d/i, roly wrap, surgical boot on windowsill, sensation to pressure but not to light touch, able to wiggle toes/mobile.prior amputation distal 5th metatarsal Psych: AOx3, cooperative Discharge Data Allergies Allergy/AdvReac Type Severity Reaction Status Date / Time Penicillins Allergy Intermediate UE SWELLING Verified 08/07/21 16:12 Consultations 08/07/21 12:54 ED Decision to Admit Stat 08/08/21 08:20 Consult Podiatry Routine Procedures Performed Operation Date: 08/08/21 10:15 Actual Procedures p Left Great Toe Amputation(Left) - Kristy Disla DPM Ordered Studies Toe X-Ray 08/07/21 11:01 LEFT FIRST TOE 3 VIEWS CLINICAL HISTORY: First toe infection. FINDINGS: 3 views of the left first toe are obtained. No prior studies are available for comparison at the time of dictation. The skeletal structures are well mineralized. There is soft tissue edema throughout the first toe with foci of subcutaneous gas adjacent to the tuft of the distal phalanx. There is erosive/destructive change involving the proximal shaft and tuft of the first distal phalanx. There is are displaced fragments of the tuft, and likely nondisplaced fracture through the proximal shaft of the persistent pharynx which may be pathologic. The first proximal phalanx and metacarpal are normal as visualized. Mild arthritic changes seen at the first metatarsophalangeal joint. A 5 mm linear metallic foreign body is present along the plantar aspect of the first toe at the level of the base of the proximal phalanx. Chronic deformities partially visualized in the fifth metatarsal. IMPRESSION: 1. Erosive/destructive change of the first distal phalanx as above. Given the history of infection this is typical for osteomyelitis. 2. There are displaced fragments from the tuft of the first distal phalanx, as well as probable pathologic fracture through the proximal shaft. 3. Soft tissue edema and foci of soft tissue gas are present in the first toe. 4. A 5 mm linear metallic foreign body is present in the plantar soft tissues of the first toe. Electronically signed by: Freddy Gutierrez M.D. 08/07/2021 11:33 AM Venous Doppler Study 08/07/21 11:01 LEFT LOWER EXTREMITY VENOUS DOPPLER CLINICAL HISTORY: lle pain COMPARISON STUDY: No previous studies for comparison. TECHNIQUE: Sonography of the deep venous system of the left lower extremity was performed. Compression and augmentation were evaluated. FINDINGS: This study was compromised by suboptimal penetration. The left common femoral, superficial femoral and popliteal veins were compressible. Augmentation was normal. Flow was shown within the deep calf vessels. IMPRESSION: Mildly compromised exam but no evidence of deep venous thrombus within the left lower extremity. ACT 112: Negative or not required by law. Electronically signed by: Guillaume Sales M.D. 08/07/2021 12:30 PM Chest X-Ray 08/08/21 08:29 XR chest 1V portable CLINICAL HISTORY: Preoperative evaluation. COMPARISON STUDY: Chest radiograph November 16, 2020. Chest CT June 14, 2021. FINDINGS: No pneumothorax or pleural effusion is noted. No consolidation to suggest pneumonia. Borderline cardiomegaly and pulmonary vascular congestion is similar to prior exams. No evidence for overt pulmonary edema. IMPRESSION: 1. No acute cardiopulmonary findings. 2. No change in appearance of the chest. Borderline cardiomegaly with pulmonary vascular congestion. No overt pulmonary edema. ACT 112: Negative or not required by law. Electronically signed by: Guillaume Sales M.D. 08/08/2021 9:21 AM Foot X-Ray 08/08/21 11:42 LEFT FOOT 3 VIEWS CLINICAL HISTORY: Postoperative examination. FINDINGS: 3 views of the left foot are compared to study dated 07/19/2021 and correlated with radiographs of the left first toe dated 08/07/2021. The skeletal structures are osteopenic. There is postoperative change from amputation of the first toe at the metatarsophalangeal joint. Soft tissue edema and foci of soft tissue gas at the operative site are expected postoperative findings. There is chronic posttraumatic deformity and postoperative change noted in the distal fifth metatarsal. No acute fracture is seen. No foci of bony erosion or periostitis are identified. Moderate to advanced degenerative change is noted in the midfoot. There are large dorsal and plantar heel spurs. A linear metallic foreign body is again seen along the plantar aspect of the forefoot at the level of the second metatarsophalangeal joint. IMPRESSION: 1. Expected postoperative findings status post first toe amputation. 2. No fracture is seen. 3. A metallic foreign body is again seen along the plantar aspect of the forefoot. Electronically signed by: Freddy Gutierrez M.D. 08/08/2021 1:30 PM Hospital Course (1) Osteomyelitis of great toe of left foot: Had been following wound care 2-3 months, recently worsening erythema/pain of LEFT GREAT TOE, was to undergo surgery with [facility] orth[facility] in 3 days Xray with: * 1. Erosive/destructive change of the first distal phalanx as above. Given the history of infection this is typical for osteomyelitis. * 2. There are displaced fragments from the tuft of the first distal phalanx, as well as probable pathologic fracture through the proximal shaft. * 3. Soft tissue edema and foci of soft tissue gas are present in the first toe. * 4. A 5 mm linear metallic foreign body is present in the plantar soft tissues of the first toe. PATIENT WORKS AT [employer]/ [employer] Was on Clinda/Doxy outpatient -- prior cx staph aureus, resistant to Clinda. Given Vanco/Ceftriaxone in ER, switched to Dapto/Cefepime. Holding statin while on Dapto Venous Doppler negative for DVT Consulted Podiatry s/p Left foot hallux amputation with Dr Disla. EBL 1mlL. Lorane all infected bone removed and treating for residual cellulitis 14 day course Cx from OR pending --> discussed with micro and mixed gram positive organisms, likely to take another 3-5 days to grow out WBC now wnl, remains afebrile BCx NGTD --> Sent on Doxycycline and Levaquin Q48H given kidney function (and allergy to PCN -- set up allergy in f/u) Can tailor abx once final cx resulted as outpatient as patient feeling ready for d/c (2) Uncontrolled diabetes mellitus, with long-term current use of insulin: Hold empagliflozin, metformin and routine 18 units subcu 3 times daily with meals insulin aspart Continue insulin glargine every morning, as his glucose has been uncontrolled in outpatient setting A1c 7.6 Patient also with CKD Cr ~2 Has been followed by Nephrology/Endocrinology in past and stable on metformin with GFR in the 30s. Would recommend close monitoring and if GFR <30 would discontinue metformin to prevent worsening kidney function (3) PAD (peripheral artery disease): PAD/hypertension/chronic venous insufficiency- Asa held initially, resumed (4) Acute kidney injury superimposed on chronic kidney disease: Creatinine 2.20 upon admission, with range 1.63-2.15 Potassium 5.3 and sodium 134 on admission --> now normalized Ejection fraction of 60-65% on 10/27/2019 Held lisinopril d/t elevation of Cr on admission, resumed once back at baseline and has been stable (5) Chronic venous insufficiency: elevation, lasix (6) Hypertension: See above (7) Dyslipidemia: Continues atorvastatin 10 mg daily at discharge, held while inpatient on dapto to prevent rhabdo (8) Depression: Continued duloxetine 20 mg p.o. twice daily (9) GERD (gastroesophageal reflux disease): On pantoprazole 40 mg p.o. twice daily but utilized famotidine IV BID while NPO, resumed PPI BID following No issues reported (10) BPH loc w urin obs/LUTS: Continued flomax, no issues reported Heparin SQ used for DVT Prophylaxis while inpatient Total Time Total Time Spent Total Time Spent (In Minutes): 45 Discharge Plan Discharge Items Patient Disposition: Home - Self-Care Reason For Visit: SORE TOE Discharge Diagnosis: Osteomyelitis great toe Goals: You have been hospitalized for an urgent problem which required surgery. During your stay at [facility], we have made an effort to correct the problem that brought you to the hospital while keeping you as comfortable as possible. Surgery and medications were used to bring your condition under control and your discharge instructions will include directions for any medications you should take after leaving the hospital. Please make sure to follow the advice of your surgeon regarding follow up with the surgeon and with your primary care provider. Activity: As commented below Non-emergency contact: Primary Care Provider and Surgeon Call non-emergency contact if: you have any medication questions Follow-up/Referrals: Dora Sales MD [Primary Care Provider] - Kristy Disla DPM [Physician] - 08/17/21 2:30 pm (1 week) Catarina Kingston MD [Physician] - 10/18/21 9:30 am ([facility]) Diet: Carb Consistent or DM2 and Heart Healthy Addtl Attending Provider Instructions: You have been hospitalized for worsening foot infection. Imaging was consistent with osteomyelitis and Dr Disla was consulted as you had previously been following. You went to surgery for amputation and margins/tissue after surgery were felt to be clear and you are being sent home on a course of Doxycycline and Levaquin while cultures are growing as it will take an additional 3-5 days given mixed picture. Given prior cultures with staph, but other bacteria in the past, decision was made to use both of these agents to ensure resolution until cultures are back. These will be for total of 14 days for residual cellulitis. You received 2 days of antibiotics while in the hospital, so you have an additional 12 days of therapy to complete treatment. Refill of the doxycycline already taking has been sent. THE LEVAQUIN SHOULD BE TAKEN EVERY OTHER DAY GIVEN YOUR KIDNEY FUNCTION Please keep your feet clean/covered when working to prevent any further trauma/injury/risk for further infections. Continue follow up with wound care as you have been doing. You are to have follow-up with Dr Disla in 1 week to monitor your progress. They can tailor your antibiotics based on culture results. You should follow up with your PCP in the next 7-10 days. Please discuss alternative agents for diabetes than the metformin given your kidney function. If your GFR were to drop below 30, would highly recommend discontinuing this. You have also been set up appointment in the summer for follow up with allergy/immunology to see if you still have allergy to penicillins so that in the future we can use if no further allergy. Please return to the ER with any fever/chills, chest pain, worsening redness/pain, or for any other symptoms concerning for you. Pending Studies at Discharge: Yes Studies:: OR culture -- mixed gram positive cocci Blood cultures -- NO GROWTH TO DATE Stand-Alone Forms: My [facility] [employer], Smoking Cessation Medications and DC Order Prescriptions: New levofloxacin 750 mg tablet 750 mg PO Q48H 14 Days Qty: 7 RF: 0 Continued lisinopril 20 mg tablet 20 mg PO QAM Qty: 90 RF: 3 Hold Instructions: hy aspirin 81 mg tablet,chewable 81 mg PO QAM RF: 0 duloxetine [Cymbalta] 20 mg capsule,delayed release(DR/EC) 20 mg PO BID Qty: 180 RF: 2 furosemide 20 mg tablet 20 mg PO QAM Qty: 30 RF: 11 (DME) FreeStyle Remigio 2 Vivian Misc See Rx Instructions .Route Qty: 1 RF: 0 (DME) FreeStyle Remigio 2 Sensor Kit See Rx Instructions .Route Qty: 7 RF: 3 Lokelma 5 gram powder in packet 5 g PO .COMPLEX Qty: 40 RF: 2 pantoprazole 40 mg tablet,delayed release (DR/EC) 40 mg PO BID Qty: 60 RF: 5 atorvastatin 10 mg tablet 10 mg PO QPM Qty: 30 RF: 5 (DME) pen needle, diabetic [BD Ultra-Fine Mini Pen Needle] 31 gauge x 3/16" needle See Dose Instructions .ROUTE .MEDSUPPLY Qty: 400 RF: 3 empagliflozin 25 mg tablet 25 mg PO DAILY Qty: 90 RF: 3 Adult Probiotic 3 billion cell capsule 3,000 mmu cells PO BID RF: 0 (DME) lancets [Accu-Chek Fastclix Lancet Drum] Misc See Rx Instructions .ROUTE .MEDSUPPLY RF: 0 (DME) blood-glucose meter [Accu-Chek Guide Glucose Meter] Misc See Rx Instructions .ROUTE .MEDSUPPLY RF: 0 (DME) Accu-Chek Guide test strips Strip See Rx Instructions .ROUTE .MEDSUPPLY RF: 0 Novolog Flexpen U-100 Insulin 100 unit/mL (3 mL) insulin pen 18 unit SQ TIDM RF: 0 Basaglar KwikPen U-100 Insulin 100 unit/mL (3 mL) insulin pen 60 unit SQ QAM RF: 0 tamsulosin 0.4 mg capsule 0.4 mg PO HS RF: 0 ergocalciferol (vitamin D2) 1,250 mcg (50,000 unit) capsule 1,250 mcg PO WK RF: 0 doxycycline hyclate 100 mg tablet 100 mg PO bid Qty: 28 RF: 0 No Action metformin 500 mg tablet 500 mg PO BID 90 Days Qty: 180 RF: 3 Discharge Orders: Discharge Order (Routine); Ordered 08/09/21 Ordered By: Laura Berrios/Other Patient Handouts: Nutrition for Wound Healing, Managing Type 2 Diabetes Admission Data Admit Date/Time: 08/07/21 13:51 Attending Provider: Shanika Carson Admit Provider: Luis Crain Primary Care Provider: Dora Sales Other Providers: Luis Crain ; Kristy Disla Other Interventions: Discharge Summary Assessment (RN) Last Done: 08/09/21 13:45 Supervising Physician Co-Signing Physician Notes PA Supervision Note: I personally saw and examined the patient. I verified all guevara points and agree with ROXY Murphy with the following exceptions and/or additions: S-patient feeling well, no pain. No chest pain shortness of breath. Ready for discharge O- Vitals reviewed Gen: AAOx3, NAD HEENT: Anicteric sclerae, EOMI CV: RRR no mgr nl S1S2 Pulm: CTAB no wcr Abd: +BS soft NT ND no masses or hernias Ext: Left foot and ankle in dressing and Roly wrap not removed Skin: No rashes, warm/dry Neuro: Full strength throughout A/D-14-gxnn-old male here with left great toe osteomyelitis and infection Now status post amputation Sent home with empiric antibiotics and will need outpatient follow-up on wound culture final result Coding Level of Care Code D/C DAY MANAGEMENT >30 MINS Diagnoses Osteomyelitis of great toe of left foot M86.9 Uncontrolled diabetes mellitus, with long-term current use of insulin E11.65; Z79.4 PAD (peripheral artery disease) I73.9 Acute kidney injury superimposed on chronic kidney disease N17.9; N18.9 Chronic venous insufficiency I87.2 Hypertension I10 Dyslipidemia E78.5 Depression F32.9 GERD (gastroesophageal reflux disease) K21.9 BPH loc w urin obs/LUTS N40.1
[2021-08-09] MEDS: CEFEPIME 2,000 MG in SYRINGE 0 ML IV SCH ×2 (13:14→13:22)
--- NOTE | 2021-08-12 10:26 | Communication Note ---
Date of Service: August 12, 2021 Patient contacted regarding OR culture with staph aureus and bacteroides thetaiotaomicron --> Given sent on Levaquin/Doxycycline, patient to STOP the Levaquin and START back on Clindamycin as previously taken. Has 9 pills left from prior rx, and sent Clindamycin 300mg QID until seen in follow up with podiatry for residual soft tissue/skin.
== END 2021-08-09 16:55 | disposition home or self-care (01) | DRG 616 ==
LOC: ED 10:23 → SUATTDRO 13:51 → EDINP 13:51 → 3N 20:42

== ENCOUNTER 2021-11-05 08:46 | Inpatient (IN) ==
[~2021-11-05 08:46] MED LIST changes: +AMPICILLIN 2,000 MG in 0.9 % SODIUM CHLORIDE 100 ML IV SCH; +AMPICILLIN 2,000 MG in SODIUM CHLOR 0.9% AD-VAN 100 ML IV SCH; -CLINDAMYCIN 600 MG/54 ML BAG IV SCH; -LR 15ML/HR IV SCH; -ROPIVACAINE 0.5% 5 MG/ML 30 ML VIAL ONE
[2021-11-05] MEDS ORDERED: AMPICILLIN 2,000 MG in SODIUM CHLOR 0.9% AD-VAN 100 ML IV SCH (09:00)
[2021-11-05] MEDS ORDERED: ICU PROTOCOL FOR HYPERGLYCEMIA PRN (10:35)
--- NOTE | 2021-11-05 10:47 | History & Physical Report ---
Date of Service November 05, 2021 Assessment & Plan (1) Cardiopulmonary arrest with successful resuscitation: Plan: 65 year old male w/ PMH T2DM, PAD, osteomyelitis of the left great toe s/p amputation of L great toe admitted to ICU for cardiopulmonary arrest during PICC line placement requiring CPR with eventual ROSC. Cardiopulmonary arrest with successful resuscitation Arrest occurring during PICC line placement, unclear etiology possible transient arrhythmia versus vagal episode Received CPR with several rounds of epi, ROSC achieved also given atropine Admitted to ICU Started on epinephrine drip Echo showing EF of over 70% Cardiology consulted underwent cath showing complex lesion in the mid LAD with estimated stenosis of 70%, 70% mid RCA stenosis No acute disease to explain patient's cardiac arrest, recommend medical management of stable CAD Did show troponin elevation, which is unsurprising given cardiac arrest with period of limited to no perfusion trend Continue vasopressors per ICU Acute respiratory failure Required intubation during cardiopulmonary arrest Able to be extubated later same day Saturating appropriately on 2 to 3 L Osteomyelitis of left great toe Status post amputation on 08/08/2021 Was scheduled to start ampicillin x6 weeks after insertion of PICC line today Continue renally dosed ampicillin LEONARDO on CKD Baseline creatinine 1.8-2.1 Creatinine at 2.3 Continue to trend DM2 Hold home regimen Currently on ICU hyperglycemia protocol DVT prophylaxis: Lovenox SQ Diet: N.p.o. for now Dispo: ICU CODE STATUS: Full (2) Hypertension: (3) Dyslipidemia: (4) Depression: (5) Diabetes mellitus with diabetic polyneuropathy: (6) CKD (chronic kidney disease): (7) PAD (peripheral artery disease): (8) Osteomyelitis of great toe of left foot: History of Present Illness Primary Care Provider: Dora Sales MD Enrique Alvarado is a 65-year-old male with PMH of osteomyelitis of the left great toe on ampicillin x 6 weeks, PAD, DM2, HTN, HLD, CKD who was in [facility] for his IV antibiotic treatment for osteomyelitis. Patient was to start 6 weeks of ampicillin after a culture grew pansensitive Enterococcus. Of note, he has had multiple wound cultures growing MRSA, Corynebacterium, E. faecalis. He was getting a PICC line placed in [facility]U when he went into cardiopulmonary arrest. At that point ari crowell was called and patient received approximately 20 minutes of cardiopulmonary resuscitation, at which point ROSC was achieved. Patient was intubated at bedside and had central line placed at that time. He did receive several rounds of epinephrine and was also given atropine. was immediately taken to ICU for further critical care. Allergies Allergy/AdvReac Type Severity Reaction Status Date / Time No Known Allergies Allergy Verified 11/05/21 09:16 Home Medications Medication Instructions Recorded Confirmed Type lactobacillus combination no.8 3 3,000 mmu cells PO BID 06/12/20 11/05/21 History billion cell capsule (Adult Probiotic) aspirin 81 mg chewable tablet 81 mg PO QAM 07/26/20 11/05/21 History blood-glucose meter (Accu-Chek 08/23/20 11/02/21 History Guide Glucose Meter) lancets (Accu-Chek Fastclix Lancet 08/23/20 11/02/21 History Drum) furosemide 20 mg tablet 20 mg PO QAM #30 tabs 12/04/20 11/05/21 Rx FreeStyle Remigio 2 [place] (flash #1 ea 01/24/21 11/02/21 Rx glucose scanning reader) FreeStyle Remigio 2 Sensor (flash #7 ea 01/24/21 11/02/21 Rx glucose sensor) pantoprazole 40 mg tablet,delayed 40 mg PO BID #60 tabs 04/05/21 11/05/21 Rx release BD Ultra-Fine Mini Pen Needle 31 #400 ea 06/07/21 11/02/21 Rx gauge x 3/16" (pen needle, diabetic) empagliflozin 25 mg tablet 25 mg PO DAILY #90 tabs 07/20/21 11/05/21 Rx ergocalciferol (vitamin D2) 1,250 1,250 mcg PO WK 08/07/21 11/05/21 History mcg (50,000 unit) capsule tamsulosin 0.4 mg capsule 0.4 mg PO HS 08/07/21 11/05/21 History metformin 500 mg tablet 500 mg PO BID 90 days #180 tabs 08/10/21 11/05/21 Rx sodium zirconium cyclosilicate 5 5 g PO DAILY #30 ea 09/11/21 11/05/21 Rx gram oral powder packet (Lokelma) blood sugar diagnostic (Accu-Chek #50 ea 10/01/21 11/02/21 Rx Guide test strips) atorvastatin 10 mg tablet 10 mg PO QPM #30 tabs 10/10/21 11/05/21 Rx duloxetine 20 mg capsule,delayed 20 mg PO BID #180 caps 10/10/21 11/05/21 Rx release (Cymbalta) insulin glargine 100 unit/mL (3 65 unit (0.65 mL) subcut QAM 90 10/16/21 11/05/21 Rx mL) subcutaneous pen (Basaglar days #60 mL KwikPen U-100 Insulin) insulin aspart U-100 100 unit/mL 80 unit subcut DAILY 10/23/21 11/05/21 History (3 mL) subcutaneous pen (Novolog Flexpen U-100 Insulin aspart) Past Med/Surg History Medical History Acquired hallux rigidus of right foot BPH loc w urin obs/LUTS (Unknown) Constipation Diabetes mellitus, type 2 IDDM Disc degeneration, lumbar Diverticulosis Eczema Fatigue GERD (gastroesophageal reflux disease) OCCASIONAL Internal hemorrhoids Morbid obesity Necrotizing fasciitis of ankle and foot S/P IV ANTIBIOTICS/PICC LINE/WOUND VAC DURING 02/2018 [facility] ADMISSION Osteomyelitis Pancreatitis ~ Psoriasis Sleep apnea NO DEVICE S/P UPPP Tubular adenoma of colon Surgical History History of adenoidectomy History of cataract surgery bilt History of cataract surgery History of cholecystectomy History of colonoscopy Colonoscopy 01/21/[address] Garg. History of incision and drainage Hx of I&D of mendel-rectal abscess History of tonsillectomy History of tooth extraction S/P foot surgery, left Status post uvulopalatopharyngoplasty Family History Mother Family history of diabetes mellitus Father History of alcoholism History of liver cancer Sister Cancer Denies family history of Ovarian cancer Prostate cancer Crohn's disease Breast cancer Colorectal cancer Social History Smoking Status: Former smoker Second Hand Exposure: No; Do You Dip or Chew Tobacco: No; Tobacco Cessation Education Requested by Patient: No Hx Alcohol Use: No Hx Substance Use: No Preferred Language: Ukrainian Communication Ability: Effective Visual Impairment: No Limitations Hearing Ability: Normal Fig Washer Required: No Beliefs That Will Affect Care: None marital status: Current Living Situation: Alone Current Living Situation Comment: Lives with and dog current occupational status: employed 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 Other Information That Helps Us Care for You: No Feels Safe at Home: Yes Safety Concerns: Feels Safe At This Time Childhood Exposure to Second-Hand Smoke: Yes Diet Comment: "tries to feed me right, but sometimes it doesn't always happen" during the past year weight has: remained stable Physical Activity Frequency: Does not Exercise Seatbelt Use: never Assistive Devices: None Review of Systems Review of Systems: Unobtainable due to reduced consciousness Physical Exam Physical Exam: GENERAL: Unresponsive CHEST/LUNGS: Coarse breath sounds bilaterally HEART: Faint, thready pulse SKIN: Warm and dry. Results & Data Results & Data ([facility]) Vital Signs (Past 12 Hours) Vital Signs Temp Pulse Resp BP Pulse Ox O2 Del Method 11/05/21 09:12 36.3 C L 67 22 138/54 L 96 Room Air Code Status & VTE Plan VTE Prophylaxis Plan VTE Prophylaxis will be ordered: Yes Supervising Physician Co-Signing Physician Notes Resident Physician Supervision Note: I interviewed and examined the patient. Discussed with Dr. Mccray and agree with findings and plan as documented in the note. Any exceptions or clarifications are listed here: Pt was a code blue, with cardio pulmonary arrest, he was resuscitated, but the direct cause of the event is still to be determined he was intubated in the medical treatment unit, had a central line placed and was given fluids, epi and atropine, eventually to Ct scan on Epi drip. Pt was not responsive around the event but did start to have purposeful movements in the icu, plans on extubation. the event occured surrounding a picc line insertion. Pt has pre hospital diabetes with end organ damange and was being treated for a diabetic foot infection and possible osteomyelitis exam is unresponsive, thready pulse, coarse b/l Breath sounds after intubation. transfer to icu for furher care Documented By: Cam Patel MD Resident Activity Tracking Resident Involvement: Resident Care Provided Care Provided: Adult Hospital Medicine (1) Diabetes mellitus with diabetic polyneuropathy Diabetes mellitus type: type 2 Diabetes mellitus intermediate project manager insulin use: unspecified alf insulin use status Qualified Code(s): E11.42 - Type 2 diabetes mellitus with diabetic polyneuropathy
--- NOTE | 2021-11-05 10:50 | Critical Care Consultation ---
Date of Consultation November 05, 2021 Assessment & Plan (1) Cardiopulmonary arrest with successful resuscitation: (2) Osteomyelitis of great toe of left foot: (3) PAD (peripheral artery disease): (4) Diabetes mellitus with diabetic polyneuropathy: Plan 65 year old male w/ PmHx T2DM, PAD, osteomyelitis of the left great toe s/p amputation of L great toe admitted to ICU for ROSC, intubated. Neuro CAM ICU: Negative, extubated. Cardiac Cardiopulmonary Arrest with successful Resuscitation -Inciting event of PICC line insertion, ?vagal contribution. -Patient given CPR w/ few rounds of Epi while in the [facility]U, had ROSC after 20 minutes of CPR. -High sensitivity trop pending. -On Epinephrine and Phenylephrine gtt. -Echo performed - LV grossly normal in size, EF >70%, however limited view. -Cardiology consulted, will appreciate recs. Patient to go for catheterization today to look for CAD. -Head CT w/o acute changes - ?artifact vs acute to subacute ischemia. Started on TTM. -CTA chest: No pulmonary emboli identified, ?atelectasis vs sequela of aspiration vs infectious process, tip ET tube 1.6cm above jan, mild cardiomegaly w/ mild L ventricular hypertrophy, mod coronary artery calcification. -Continue to monitor vitals. PAD -Hold statin while NPO. Respiratory Acute respiratory failure -Patient in cardiopulmonary arrest following insertion of PICC line. -Intubated at bedside in [facility]U, -TV 500, RR 20, PEEP 8, FiO2 50 -Extubated and now on 3L Nasal cannula. -Wean as tolerated, suction secretions PRN. GI NPO for now. Renal/Electrolytes LEONARDO on CKD: -History of CKD w/ baseline creat 1.8-2.1. -Creatinine 2.33 today, continue to trend. -ICU electrolyte protocol. -Flaco in, monitor I&O's. Endo Type 2 Diabetes -Hold home oral medications. -Pharmacy glycemia consult in place, ICU hyperglycemia protocol. Heme -Continue to trend H&H. ID Osteomyelitis of L great Toe -S/p amputation L great toe 08/08/21 w/o complication. -Multiple bacteria growing from cultures past few months. -Patient was supposed to be started on Ampicillin today w/ insertion of PICC line. -Wound culture 10/19 growing MRSA, Corynebacterium. -Continued Ampicillin renally dosed Q6h. Lines/IV Access Peripheral access, L subclavian central line. DVT Prophylaxis Lovenox 40mg BID Dispo: ICU Supervising Physician Co-Signing Physician Notes Dr. Thompson was resident physician during care of patient. I separately evaluated patient for guevara portions of the history and the exam. I was present during the critical portion of medical decision making, and I discussed the case with the resident. I generally agree with the findings and plan. Patient had successful return of spontaneous circulation after presumptive PEA arrest. Patient had purposeful commands and was able to be extubated approximately 1 hour after intubation. Patient had several episodes of SVT/atrial flutter/atrial fib, he also had episodes of nausea I was concerned for an anginal equivalent there was no obvious ST elevation [place] on EKG, I discussed the case with cardiology and he underwent invasive coronary angiogram which did not show a culprit lesion. He was able to be weaned off vasoactive medications. I have personally spent 100 minutes of critical care time in the direct management of this patient. This is a life/limb threatening event. This includes time spent evaluating patient, direct bedside care, chart review, placing orders, interpretation of diagnostic studies, discussion with consultants, patient, and/or family members regarding treatment decisions, as well as other required patient management activities. This time is exclusive of all separately billable procedures, and teaching time and separate from and in addition to any other critical care service time. History of Present Illness Reason for Consultation: Cardiopulmonary arrest Requesting Physician: Dr. Patel Attending Physician: Kyaw Galvin MD History of Present Illness Enrique is a 65 year old male w/ PmHx T2DM, peripheral vascular disease, osteomyelitis s/p amputation of L great toe 08/2021 admitted to the ICU for ROSC in [facility] following cardiopulmonary arrest. Patient has a past history of infection of the L great toe at amputation site, with multiple wound cultures over the past few months growing multiple bacterial species including MRSA, Corynebacterium, E. Faecalis. Patient was started on 6 weeks of IV Ampicillin recently from the 09/10 culture growing out devi-sensitive enterococcus. He came in to the [facility]U earlier today for insertion of PICC line for antibiotics when he had code purple called followed by absence of carotid pulse and breathing. Code blue was called and patient had 20 minutes of cardiopulmonary resuscitation before obtaining ROSC. Patient was intubated in MTU by CC and Anesthesia, then transferred up to the ICU. Patient was later extubated in the afternoon and saturating well on 3L of O2 via nasal cannula. Patient verbal saying he would like some water to drink, has some pain at the right lower ribs and has some nausea, however denies breathing dif ficulties. Allergies Allergy/AdvReac Type Severity Reaction Status Date / Time No Known Allergies Allergy Verified 11/05/21 09:16 Home Medications Medication Instructions Recorded Confirmed Type lactobacillus combination no.8 3 3,000 mmu cells PO BID 06/12/20 11/05/21 History billion cell capsule (Adult Probiotic) aspirin 81 mg chewable tablet 81 mg PO QAM 07/26/20 11/05/21 History blood-glucose meter (Accu-Chek 08/23/20 11/02/21 History Guide Glucose Meter) lancets (Accu-Chek Fastclix Lancet 08/23/20 11/02/21 History Drum) furosemide 20 mg tablet 20 mg PO QAM #30 tabs 12/04/20 11/05/21 Rx FreeStyle Remigio 2 [place] (flash #1 ea 01/24/21 11/02/21 Rx glucose scanning reader) FreeStyle Remigio 2 Sensor (flash #7 ea 01/24/21 11/02/21 Rx glucose sensor) pantoprazole 40 mg tablet,delayed 40 mg PO BID #60 tabs 04/05/21 11/05/21 Rx release BD Ultra-Fine Mini Pen Needle 31 #400 ea 06/07/21 11/02/21 Rx gauge x 3/16" (pen needle, diabetic) empagliflozin 25 mg tablet 25 mg PO DAILY #90 tabs 07/20/21 11/05/21 Rx ergocalciferol (vitamin D2) 1,250 1,250 mcg PO WK 08/07/21 11/05/21 History mcg (50,000 unit) capsule tamsulosin 0.4 mg capsule 0.4 mg PO HS 08/07/21 11/05/21 History metformin 500 mg tablet 500 mg PO BID 90 days #180 tabs 08/10/21 11/05/21 Rx sodium zirconium cyclosilicate 5 5 g PO DAILY #30 ea 09/11/21 11/05/21 Rx gram oral powder packet ([facility]) blood sugar diagnostic (Accu-Chek #50 ea 10/01/21 11/02/21 Rx Guide test strips) atorvastatin 10 mg tablet 10 mg PO QPM #30 tabs 10/10/21 11/05/21 Rx duloxetine 20 mg capsule,delayed 20 mg PO BID #180 caps 10/10/21 11/05/21 Rx release (Cymbalta) insulin glargine 100 unit/mL (3 65 unit (0.65 mL) subcut QAM 90 10/16/21 11/05/21 Rx mL) subcutaneous pen (Basaglar days #60 mL KwikPen U-100 Insulin) insulin aspart U-100 100 unit/mL 80 unit subcut DAILY 10/23/21 11/05/21 History (3 mL) subcutaneous pen (Novolog Flexpen U-100 Insulin aspart) Patient History Medical History Acquired hallux rigidus of right foot BPH loc w urin obs/LUTS (Unknown) Constipation Diabetes mellitus, type 2 IDDM Disc degeneration, lumbar Diverticulosis Eczema Fatigue GERD (gastroesophageal reflux disease) OCCASIONAL Internal hemorrhoids Morbid obesity Necrotizing fasciitis of ankle and foot S/P IV ANTIBIOTICS/PICC LINE/WOUND VAC DURING 02/2018 [facility] ADMISSION Osteomyelitis Pancreatitis ~ Psoriasis Sleep apnea NO DEVICE S/P UPPP Tubular adenoma of colon Surgical History History of adenoidectomy History of cataract surgery bilt History of cataract surgery History of cholecystectomy History of colonoscopy Colonoscopy 01/21/[address] Garg. History of incision and drainage Hx of I&D of mendel-rectal abscess History of tonsillectomy History of tooth extraction S/P foot surgery, left Status post uvulopalatopharyngoplasty Family History Mother Family history of diabetes mellitus Father History of alcoholism History of liver cancer Sister Cancer Denies family history of Ovarian cancer Prostate cancer Crohn's disease Breast cancer Colorectal cancer Social History Smoking Status: Former smoker Second Hand Exposure: No; Do You Dip or Chew Tobacco: No; Tobacco Cessation Education Requested by Patient: No Hx Alcohol Use: No Hx Substance Use: No Preferred Language: Estonian Communication Ability: Effective Visual Impairment: No Limitations Hearing Ability: Normal Rib Cloth Knitter Required: No Beliefs That Will Affect Care: None marital status: Current Living Situation: Alone Current Living Situation Comment: Lives with and dog current occupational status: employed 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 Other Information That Helps Us Care for You: No Feels Safe at Home: Yes Safety Concerns: Feels Safe At This Time Childhood Exposure to Second-Hand Smoke: Yes Diet Comment: "tries to feed me right, but sometimes it doesn't always happen" during the past year weight has: remained stable Physical Activity Frequency: Does not Exercise Seatbelt Use: never Assistive Devices: None Review of Systems Constitutional: as per Subjective / HPI Physical Exam Constitutional: WD/WN, vitals as above Eyes: PERRL Respiratory: Audible course lung sounds w/o auscultation, lungs mildly course to auscultation bilaterally. Cardiovascular: RRR, no murmur, no edema Gastrointestinal (Abdomen): normal bowel sounds, soft, nontender, no hepatosplenomegaly Results & Data Results & Data ([facility]) Vital Signs (Past 12 Hours) Vital Signs Temp Pulse Resp BP Pulse Ox O2 Del Method 11/05/21 09:12 36.3 C L 67 22 138/54 L 96 Room Air Resident Activity Tracking Resident Involvement: Resident Care Provided Care Provided: Adult Hospital Medicine (1) Diabetes mellitus with diabetic polyneuropathy Diabetes mellitus supervisor intermediates insulin use: unspecified group home insulin 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
[2021-11-05] MEDS ORDERED: OPTIRAY 320 125ml IV ONE (11:00)
[2021-11-05] MEDS ORDERED: PROPOFOL IV EMULSION 10 MG/ML 100 ML VIAL IV ONE (11:05)
[2021-11-05] MEDS ORDERED: MIDAZOLAM HCL 1 MG/ML 2ML VIAL ONE ×2 (11:05→15:34)
[2021-11-05] MEDS: Standard 16mcg/mL; 4 MG in 250 mL for BRADYCARDIA IV SCH (11:10)
[2021-11-05 11:15] LABS: Base Excess VBG -12.6 mEq/L; HCO3 VBG 19 mmol/L; Oxygen Saturation VBG 83.4 %; PCO2 VBG 73 mmHg (38-50); PO2 VBG 60 mmHg; pH VBG 7.03 (7.36-7.41)
--- NOTE | 2021-11-05 11:17 | CT Scan Report ---
CT SCAN OF THE BRAIN WITHOUT IV CONTRAST CLINICAL HISTORY: Cardiac arrest. COMPARISON STUDY: No priors. TECHNIQUE: Unenhanced axial CT scan of the brain is performed from the vertex to the skull base. A d ose lowering technique was utilized adhering to the principles of ALARA. The Examination is compromis ed by motion artifact. The patient was scanned twice in an effort to improve image quality. CT DOSE: 2449.63 mGy.cm FINDINGS: An endotracheal tube is noted on the assembly lead person tomogram. Brain parenchyma: Question focal loss of patel-white matter differentiation in the left occipital lobe . There is no hemorrhage, mass effect, or evidence of acute territorial ischemia by CT criteria. No extra-axial fluid collection is seen. Ventricles, sulci, cisterns: Normal in configuration. Intracranial vasculature: There is atherosclerotic calcification of the cavernous carotid and vertebr al arteries. Calvarium: Unremarkable. Sinuses and mastoids: There is evidence of previous paranasal sinus surgery. There is trace mucosal t hickening in the right maxillary antrum and the ethmoid cavity. The remaining paranasal sinuses are c lear. The mastoid air cells are well pneumatized. Orbits: The bony orbits are grossly intact. There are bilateral ocular lens implants. IMPRESSION: 1. Question focal loss of patel-white matter differentiation in the left occipital lobe. This maybe ar tifactual given the degree of motion. A focus of acute to subacute ischemia is not excluded. MRI coul d be considered for better evaluation. 2. There is no hemorrhage or mass effect. ACT 112: Negative or not required by law. Electronically signed by: Freddy Gutierrez M.D. 11/05/2021 11:14 AM
[2021-11-05 11:22] LABS: Albumin Globulin Ratio 1.1 (0.9-2); BUN Creatinine Ratio 18.5 (10-20); Bilirubin,Total 0.4 mg/dl (0.2-1.0); Calcium 8.3 mg/dl (8.5-10.1); Creatinine Clr Calc Pharmacy 47.4 ml/min; Est GFR (African American) 32.8 ml/min; Est GFR (Non-African American) 28.3 ml/min; Globulin 2.7 gm/dl (2.5-4.0); Magnesium 2.2 mg/dl (1.7-2.4); Potassium 3.7 mmol/L (3.5-5.1); Total Protein 5.7 gm/dl (6.0-8.3)
[2021-11-05 11:26] LABS: Troponin I High Sensitivity 35.4 pg/ml (0-20)
--- NOTE | 2021-11-05 11:42 | CT Scan Report ---
CT ANGIOGRAPHY OF THE CHEST, PULMONARY EMBOLUS PROTOCOL CLINICAL HISTORY: Code. Evaluate for pulmonary embolus. COMPARISON STUDY: Chest CT June 14, 2021. Chest radiograph August 08, 2021. TECHNIQUE: Following IV administration of 120 mL of Optiray, helical axial images of the chest were o btained utilizing the pulmonary embolus protocol. Maximal intensity projections and sagittal and cor onal reformats were viewed on an independent 3D workstation. IV contrast was administered without co mplication. Automated exposure control was utilized for the study. A dose lowering technique was ut ilized adhering to the principles of ALARA. FINDINGS: Tip of endotracheal tube is 1.6 cm above the jan. A left subclavian central line is in place. No pulmonary emboli identified although segmental and subsegmental pulmonary arteries are subo ptimally assessed due to respiratory motion. Mild cardiomegaly is noted with left ventricular hypertr ophy. No thoracic aortic dissection. There is moderate coronary artery calcification. No pneumothorax or pleural effusion is noted. There are multiple acute bilateral anterior rib fractures. Right fifth rib fracture is slightly displaced. Mild airspace opacities are noted within the posterior segment o f the right upper lobe and apical is posterior segment of the left upper lobe. There are secretions w ithin the airways. Lungs are suboptimally assessed due to respiratory motion. IMPRESSION: 1. No pulmonary emboli identified although segmental and subsegmental pulmonary arteries suboptimally assessed due to respiratory motion. 2. Mild airspace opacities within the bilateral upper lobes. This could reflect atelectasis, sequela of aspiration or infectious process. Secretions within the airways. 3. Tip of endotracheal tube 1.6 cm above the jan. 4. Multiple acute bilateral anterior rib fractures. No pneumothorax. 5. Mild cardiomegaly with left ventricular hypertrophy. Moderate coronary artery calcification. ACT 112: Negative or not required by law. Electronically signed by: Guillaume Sales M.D. 11/05/2021 11:41 AM
[2021-11-05] MEDS ORDERED: SODIUM CHLORIDE 0.9% 10ML FLUSH IV ONE (12:00)
[2021-11-05] MEDS ORDERED: SODIUM BICARB 8.4% INJ 50 MEQ/50 ML SYR IV ONE (12:00)
[2021-11-05] MEDS ORDERED: ATROPINE SULFATE 0.1 MG/ML 10ML SYR IV ONE (12:00)
[2021-11-05 12:05] LABS: iSTAT Allen Test Pass; iSTAT Arterial Blood Gas HCO3 19 meg/L (19-24); iSTAT Arterial Blood Gas pCO2 50 mmHg (35-46); iSTAT Arterial Blood Gas pH 7.19 (7.35-7.45); iSTAT Arterial Blood Gas pO2 126 mmHg (80-95); iSTAT Carbon Dioxide 20 mmol/L (24-31); iSTAT FiO2 50 %; iSTAT Site L Radial
[2021-11-05] MEDS ORDERED: ADENOSINE IV SOLN 3 MG/ML 2 ML VIAL IV ONE (12:57)
[2021-11-05] MEDS ORDERED: STAT IV Infusion **Titration per Protocol STA (13:01)
--- NOTE | 2021-11-05 13:06 | Procedure Note ---
Procedure Note Date of Service November 05, 2021 Note Procedure date: Noted above Procedure: Central venous access Pre-procedure indication: Need for vasoactive medication administration Post-procedure Diagnosis: same as above Prior to Procedure: Informed Consent: Emergent consent implied Attending Staff: Ousmane Alvarez DO Resident/APC: Not applicable Skin Prep: Chlorhexidine Anesthesia: 4 mL 1% lidocaine without epinephrine The identity of the patient was confirmed and a bedside time out was performed. Description of Procedure: After sterile prep and sterile drape utilizing standard sterile technique the superficial skin of the left subclavian area was anesthetized. The target vessel was identified and entered with an 18-gauge needle. Dark venous blood return was noted. A guidewire was inserted through the needle and into the vessel. The needle was withdrawn and a skin tiffanie was made. A tissue dilator was advanced via Seldinger technique and removed. A triple lumen catheter was inserted via Seldinger technique and the guidewire removed. All ports hola and flushed easily. A Biopatch was placed, and the catheter was secured via silk suture. A sterile dressing was then applied. Complications: None Estimated blood loss: Trace Patient tolerated the procedure well. Coding CPT Codes Tubes, Drains, and Vasc Access - Tubes, Drains, and Vasc Access: [id number] Insertion Of Non-tunneled Catheter Age 5 Yrs> ([id number]) [facility] [place]Charges) Tubes, Drains, and Vasc Access Procedure 1: Tubes, Drains, and Vasc Access: [id number] Insertion Of Non-tunneled Catheter Age 5 Yrs>
[2021-11-05] MEDS ORDERED: PHENYLEPHRINE HCL 20 MG in DEXTROSE 5% 500 ML IV SCH (13:15)
[2021-11-05] MEDS ORDERED: ONDANSETRON INJ 2 MG/ML 2 ML VIAL IV STA (13:23)
[2021-11-05] MEDS ORDERED: ONDANSETRON INJ 2 MG/ML 2 ML VIAL ONE (13:23)
[2021-11-05] MEDS: ENOXAPARIN INJ 40 MG/0.4 ML SYR SQ SCH ×2 (13:40→23:19)
[2021-11-05] MEDS: AMPICILLIN 2,000 MG in SODIUM CHLOR 0.9% AD-VAN 100 ML IV SCH ×2 (13:40→19:29)
--- NOTE | 2021-11-05 13:43 | XCELERA ---
[id number]
[2021-11-05] MEDS ORDERED: PHARMACY GLYCEMIC MGMT CONSULT PRN (14:18)
[2021-11-05] MEDS ORDERED: PHENYLEPHRINE HCL 40 MG in DEXTROSE 5% 500 ML IV SCH ×2 (14:30→16:15)
[2021-11-05] MEDS ORDERED: GLUCAGON FOR INJ 1 MG VIAL IM PRN (14:45)
[2021-11-05] MEDS ORDERED: GLUCOSE 10 TAB/TUBE PO PRN (14:45)
[2021-11-05] MEDS ORDERED: DEXTROSE 50% 50 ML SYRINGE IV PRN (14:45)
[2021-11-05] MEDS ORDERED: CARBOHYDRATES FOR HYPOGLYCEMIA PO PRN (14:45)
[2021-11-05] MEDS ORDERED: GLUCOSE 40% GEL 15 GM TUBE PO PRN (14:45)
[2021-11-05] MEDS ORDERED: Nursing to Pharmacy Communication SCH (14:45)
--- NOTE | 2021-11-05 14:54 | Pharmacy Report ---
Pharmacy Glycemic Short Note 2 - Date of Service November 05, 2021 - Glycemic Short BSG Results (Last 24 hours): 11/05/21 11/05/21 10:11 10:41 Glucose 241 H POC Glucose 121 H OUTPATIENT ANTIDIABETIC REGIMEN: * Lantus 70 units qAM * Novolog 25units @ breakfast, 20units @ lunch, and 15 units @ dinner * Jardiance 25mg PO daily * Metformin 500mg PO BID HbA1C: 7.8% (08/16/21) ASSESSMENT: * Patient is a type 2 diabetic with a history of CKD and osteomyelitis of the foot. He is s/p cardiac arrest after presenting this AM to [facility] for PICC line placement and antibiotic infusion. Pharmacy consulted to assist with glycemic management in this setting. * S/p cardiac arrest, hypotensive, requiring vasopressor support with epinephrine and phenylephrine (in D5W, 72ml/hr). Patient intubated prior to transport to ICU, however extubated earlier this afternoon after arriving to ICU. Receiving antibiotics. * Plan to initiate basal/bolus insulin. Novolog ~ AdjBW/stress 2 q4h while NPO. * Lantus scale tonight based upon HS BSG. PLAN FOR INPATIENT GLYCEMIC CONTROL: * Hold outpatient oral diabetes medications * Basal insulin * Lantus scale @ HS * Bolus insulin * NovoLog per scale ACHS or Q4hrs while NPO * Goal Range: Low 110 mg/dL - High 140 mg/dL * Correction Factor: 20 mg/dL/unit * Nutritional / Prandial insulin per carb ratio of 1 unit per 6 grams CHO consumed
--- NOTE | 2021-11-05 15:02 | Pre Anesthesia Assessment ---
Date of Service November 05, 2021 Pre Sedation Assessment Vital Signs Temp Pulse Pulse Resp BP BP Pulse Ox 11/05/21 13:40 36.7 C 92 H 16 89/53 L 92 11/05/21 13:30 36.6 C 131 H 16 100/84 95 11/05/21 13:27 36.6 C 134 H 18 105/87 96 11/05/21 13:23 36.6 C 135 H 23 98/48 L 92 11/05/21 13:20 36.6 C 130 H 27 H 121/66 93 11/05/21 13:18 36.6 C 140 H 18 106/69 95 11/05/21 13:15 36.6 C 145 H 15 94/63 L 96 11/05/21 13:11 36.6 C 107 H 16 101/69 87 L 11/05/21 13:08 36.5 C 110 H 17 92/71 L 94 11/05/21 12:55 36.5 C 142 H 24 82/62 L 96 11/05/21 11:10 11/05/21 13:07 109 H 26 H 97 11/05/21 12:40 36.4 C L 107 H 21 110/59 L 99 11/05/21 12:30 36.3 C L 106 H 20 93/62 L 94 11/05/21 12:10 36.3 C L 111 H 28 H 84/49 L 95 11/05/21 12:09 36.2 C L 106 H 30 H 71/52 L 96 11/05/21 12:00 36.2 C L 103 H 28 H 88/44 L 100 11/05/21 11:50 36.2 C L 98 H 18 73/38 L 98 11/05/21 11:55 11/05/21 11:45 36.2 C L 103 H 21 78/45 L 99 11/05/21 11:44 36.2 C L 102 H 19 89/42 L 98 11/05/21 11:40 36.2 C L 104 H 24 67/42 L 100 11/05/21 11:36 106 H 26 H 69/42 L 100 11/05/21 11:30 109 H 28 H 89/49 L 99 11/05/21 11:15 109 H 26 H 63/41 L 98 11/05/21 11:12 110 H 19 66/46 L 11/05/21 11:32 108 H 23 97 11/05/21 09:12 36.3 C L 67 22 138/54 L 96 O2 Del Method O2 Flow Rate FiO2 11/05/21 13:40 Nasal Cannula 3 11/05/21 13:30 Nasal Cannula 4 11/05/21 13:27 Nasal Cannula 4 11/05/21 13:23 Nasal Cannula 4 11/05/21 13:20 Nasal Cannula 4 11/05/21 13:18 Nasal Cannula 4 11/05/21 13:15 Nasal Cannula 4 11/05/21 13:11 Nasal Cannula 4 11/05/21 13:08 Nasal Cannula 4 11/05/21 12:55 BiPAP 11/05/21 11:10 Mechanical Vent 11/05/21 13:07 40 11/05/21 12:40 Nasal Cannula 4 11/05/21 12:30 Nasal Cannula 4 11/05/21 12:10 CPAP, Mechanical Vent 40 11/05/21 12:09 CPAP, Mechanical Vent 40 11/05/21 12:00 CPAP, Mechanical Vent 40 11/05/21 11:50 CPAP, Mechanical Vent 40 11/05/21 11:55 40 11/05/21 11:45 Mechanical Vent 50 11/05/21 11:44 Mechanical Vent 50 11/05/21 11:40 Mechanical Vent 50 11/05/21 11:36 Mechanical Vent 50 11/05/21 11:30 Mechanical Vent 50 11/05/21 11:15 Mechanical Vent 50 11/05/21 11:12 11/05/21 11:32 50 11/05/21 09:12 Room Air Cardiovascular + regular rhythm Respiratory + respiratory effort normal Pre-Sedation Airway Assessment Smoking Status: Former smoker Hx Sleep Apnea: Yes Hx Difficult Intubation: No Short, Thick Neck: No Thyromental Distance: > or= 3.5 Finger Breadths Oral Cavity: + WNL Mallampati Class: III ASA: ASA3 Procedure Planning Contraindications for Sedation: none Current Medications Reviewed: Yes Notes The planned sedation has been discussed with the patient. Informed Consent was obtained. I have identified the patient, determined the appropriateness of sedation and have assessed the patient immediately prior to the procedure. All medicine(s) and interventions are by my order.
[2021-11-05] MEDS ORDERED: fentaNYL citrate 100 MCG/2 ML VIAL ONE (15:33)
[2021-11-05] MEDS ORDERED: niCARdipine HCL INJ 2.5 MG/ML 10 ML AMP ONE (15:33)
[2021-11-05] MEDS ORDERED: HEPARIN (PORCINE) 1000 UNIT/ML 10 ML (CATH LAB USE ONLY) ONE (15:33)
[2021-11-05] MEDS ORDERED: NITROGLYCERIN/D5W 100MCG/ML 20ML SYR ONE (15:34)
--- NOTE | 2021-11-05 16:03 | Cardiac Catheterization ---
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 Cardiac Status Clinical evaluation leading to the procedure CAD Presenation: Non STEMI Diagnostic Physicians Name: Devang Franco MD Closure Device Recommendations: Medical Therapy and/or Counseling Cardiac Cath Procedure Full Procedure Date November 05, 2021 Pre-Procedure Diagnosis Pre-Procedure Diagnosis: Non STEMI AUC Score AUC Score: 7 Post-Procedure Diagnosis Post-Procedure Diagnosis: Moderate CAD Procedure(s) Performed Procedure(s) Performed: Coronary Angiography and Left Heart Cath Application Counselor Devang Franco MD Sand Technologist(s) none Estimated Blood Loss Estimated Blood Loss: 5cc Medication(s) Medication(s): Fentanyl, Heparin, Lidocaine 1%, Nicardipine, Nitroglycerin and Versed Summary of Findings Procedure performed: Left heart catheterization, coronary angiography Staff dental office receptionist: Devang Franco MD Indication: The patient is a 65-year-old gentleman who suffered an in-hospital cardiac arrest. Based on his risk factors for coronary disease and elevated cardiac biomarkers he was felt to be a good candidate for coronary angiography in order to exclude an acute coronary syndrome. Procedure in detail: The patient was informed of the risks benefits and alternatives to the intended procedure, he understood such and wished to proceed. He was taken to the cardiac catheterization suite in a fasting state. Conscious sedation was administered per protocol and the patient was monitored electrocardiographically throughout today's procedure. The right wrist area was prepped and draped in usual sterile fashion. This area was anesthetized using subcutaneous administration of a lidocaine solution. The right radial artery was then accessed using Seldinger technique, and a arterial sheath was placed at this site over a guidewire. The sheath was used to facilitate passage of the cardiac catheter for coronary angiography and left heart catheterization. Coronary angiogram was then obtained in multiple orthogonal views prior to removal of the catheter. At the conclusion of the procedure the sheath was removed and hemostasis was achieved at the access site using manual pressure. The patient tolerated procedure well, there were no immediate complications. Equipment used: 5 [place] tiger 4 Findings: Coronary angiography: Left main: The left main was normal in size and caliber. It bifurcated normally into the left anterior descending left circumflex arteries. Left anterior descending: Left anterior descending was large transapical vessel. It had a discrete 70% stenosis just distal to the takeoff of the 1st diagonal branch. There was some haziness to the lesion in appeared calcified as well. There were luminal irregularities throughout the remainder of the vessel. There is a small 2nd diagonal branch. The proximal portion of the 1st diagonal had some tapering in a 50% stenosis. Left circumflex: Left circumflex produce a medium-sized ongoing AV groove vessel and a large OM1 system. There were luminal irregularities but no discrete stenosis Right coronary: The right coronary was a dominant vessel. It had a discrete 70% stenosis in its midportion. No other significant disease. Impression: Complex lesion in the mid LAD with estimated stenosis of 70% 70% mid RCA stenosis Right dominant coronary system Normal left ventricular filling pressures No evidence of aortic stenosis Hemodynamics Rest Ao:: 75/40 mm of mercury Final Ao: 80/52 mm of mercury LV: 78/3 mm of mercury Left ventricular end-diastolic pressure 12 mm of mercury Recommendations Recommendations: Medical Therapy and/or Counseling Specimens Specimens: None Radiation Exposure (mGy) One thousand fifty-five Contrast (mls) 40 Procedural Complication(s) None Disposition ICU I attest to the content of the Intraoperative Record and any orders documented therein. Any exceptions are noted below. [facility] Card Cath Procedure Codes Cardiac Catheterization Procedure 1: Cardiovascular Cath Procedures: 96985 Coronaries and LHC (+/-LV) Moderate Sedation Procedure 1: Sedation/Anesthesia: 51124 Mod Sedation by the same physician;Init15 Min Child Age 5 & Up Procedure 2: Sedation/Anesthesia: 54187 Mod Sedation by the same physician; Ea [id number] Minutes PG Care Time/CCT Total # of Minutes Spent Total Time Spent with Patient: Total time spent is greater than 50% in coordination of care (as documented) at patient's floor/unit and/or counseling patient:
--- NOTE | 2021-11-05 16:13 | Cardiology Consultation ---
Date of Consultation November 05, 2021 Assessment & Plan (1) Cardiopulmonary arrest with successful resuscitation: (2) Acute kidney injury superimposed on chronic kidney disease: (3) Elevated troponin: Plan 1. Cardiac arrest: He appears to have had a PEA arrest. He had a rhythm that did not require cardioversion or defibrillation. However, there was some difficulty in finding a pulse. The patient was unconcerned about his peripheral vascular disease and poor pulses at baseline. Nonetheless, the patient appears to be hemodynamically stable currently. He was successfully extubated and appears to be maintaining good oxygenation. He cannot provide any history leading up to the event today. It is possible this represented some transient arrhythmia that resulted in poor perfusion. He was undergoing a procedure at the time. Possibly had a vagal episode as well. He is certainly at risk for coronary disease although there is no objective evidence of an acute coronary syndrome. There were no wall motion abnormalities on his echocardiogram and overall LV function appeared quite good. However, given his risk factors for coronary disease and the fact that he did require resuscitation it would be prudent to consider coronary angiography at some point. 2. Elevated troponin: He deafly had a period of poor perfusion which undoubtedly will result in some elevated troponin. I do not think in an of itself this is insurance representative of an acute coronary syndrome. However, we will trend the biomarkers. History of Present Illness Reason for Consultation: Cardiac arrest Requesting Physician: Kim Attending Physician: Cam Patel MD History of Present Illness The patient is a 65-year-old gentleman with a history of peripheral vascular disease with no known coronary disease who also suffers from hypertension and diabetes mellitus. He has a diabetic foot ulcer and osteomyelitis. He was in the ambulatory procedure area today undergoing PICC line placement when he suffered a cardiac arrest. It seems that the patient became unresponsive and there was some difficulty in finding a pulse. The patient's rhythm was monitored, and there was no indication of arrhythmia that would require defibrillation or cardioversion. He did require intubation. His perfusion appeared to improve and he was transferred to the intensive care unit on some pressor support. He was able to be extubated once his mentation improved. He continued on pressor support. The patient does not recall any of the events leading up to his cardiac arrest. He did not recall coming to the hospital today. 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 Some difficulty with ambulation due to his osteomyelitis, but did not report other exertional symptoms. He does not report being dyspneic most of the time. Did not report symptoms of chest pain. Currently he does have some chest pain. He did receive CPR. Allergies Allergy/AdvReac Type Severity Reaction Status Date / Time No Known Allergies Allergy Verified 11/05/21 09:16 Home Medications Medication Instructions Recorded Confirmed Type lactobacillus combination no.8 3 3,000 mmu cells PO BID 06/12/20 11/05/21 History billion cell capsule (Adult Probiotic) aspirin 81 mg chewable tablet 81 mg PO QAM 07/26/20 11/05/21 History blood-glucose meter (Accu-Chek 08/23/20 11/02/21 History Guide Glucose Meter) lancets (Accu-Chek Fastclix Lancet 08/23/20 11/02/21 History Drum) furosemide 20 mg tablet 20 mg PO QAM #30 tabs 12/04/20 11/05/21 Rx FreeStyle Remigio 2 [place] (flash #1 ea 01/24/21 11/02/21 Rx glucose scanning reader) FreeStyle Remigio 2 Sensor (flash #7 ea 01/24/21 11/02/21 Rx glucose sensor) pantoprazole 40 mg tablet,delayed 40 mg PO BID #60 tabs 04/05/21 11/05/21 Rx release BD Ultra-Fine Mini Pen Needle 31 #400 ea 06/07/21 11/02/21 Rx gauge x 3/16" (pen needle, diabetic) empagliflozin 25 mg tablet 25 mg PO DAILY #90 tabs 07/20/21 11/05/21 Rx ergocalciferol (vitamin D2) 1,250 1,250 mcg PO WK 08/07/21 11/05/21 History mcg (50,000 unit) capsule tamsulosin 0.4 mg capsule 0.4 mg PO HS 08/07/21 11/05/21 History metformin 500 mg tablet 500 mg PO BID 90 days #180 tabs 08/10/21 11/05/21 Rx sodium zirconium cyclosilicate 5 5 g PO DAILY #30 ea 09/11/21 11/05/21 Rx gram oral powder packet (kelmo) blood sugar diagnostic (Accu-Chek #50 ea 10/01/21 11/02/21 Rx Guide test strips) atorvastatin 10 mg tablet 10 mg PO QPM #30 tabs 10/10/21 11/05/21 Rx duloxetine 20 mg capsule,delayed 20 mg PO BID #180 caps 10/10/21 11/05/21 Rx release (Cymbalta) insulin glargine 100 unit/mL (3 65 unit (0.65 mL) subcut QAM 90 10/16/21 11/05/21 Rx mL) subcutaneous pen (Basaglar days #60 mL KwikPen U-100 Insulin) insulin aspart U-100 100 unit/mL 80 unit subcut DAILY 10/23/21 11/05/21 History (3 mL) subcutaneous pen (Novolog Flexpen U-100 Insulin aspart) Patient History Medical History Acquired hallux rigidus of right foot BPH loc w urin obs/LUTS (Unknown) Constipation Diabetes mellitus, type 2 IDDM Disc degeneration, lumbar Diverticulosis Eczema Fatigue GERD (gastroesophageal reflux disease) OCCASIONAL Internal hemorrhoids Morbid obesity Necrotizing fasciitis of ankle and foot S/P IV ANTIBIOTICS/PICC LINE/WOUND VAC DURING 02/2018 [facility] ADMISS[facility] Osteomyelitis Pancreatitis ~ Psoriasis Sleep apnea NO DEVICE S/P UPPP Tubular adenoma of colon Surgical History History of adenoidectomy History of cataract surgery bilt History of cataract surgery History of cholecystectomy History of colonoscopy Colonoscopy 01/21/[address] Garg. History of incision and drainage Hx of I&D of mendel-rectal abscess History of tonsillectomy History of tooth extraction S/P foot surgery, left Status post uvulopalatopharyngoplasty Family History Mother Family history of diabetes mellitus Father History of alcoholism History of liver cancer Sister Cancer Denies family history of Ovarian cancer Prostate cancer Crohn's disease Breast cancer Colorectal cancer Social History Smoking Status: Former smoker Second Hand Exposure: No; Do You Dip or Chew Tobacco: No; Tobacco Cessation Education Requested by Patient: No Hx Alcohol Use: No Hx Substance Use: No Preferred Language: Welsh Communication Ability: Effective Visual Impairment: No Limitations Hearing Ability: Normal Drafter [employer] Design Layout Required: No Beliefs That Will Affect Care: None marital status: Current Living Situation: Alone Current Living Situation Comment: Lives with and dog current occupational status: employed 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 Other Information That Helps Us Care for You: No Feels Safe at Home: Yes Safety Concerns: Feels Safe At This Time Childhood Exposure to Second-Hand Smoke: Yes Diet Comment: "tries to feed me right, but sometimes it doesn't always happen" during the past year weight has: remained stable Physical Activity Frequency: Does not Exercise Seatbelt Use: never Assistive Devices: None Review of Systems Review of Systems: Per HPI. Dry throat. Thirsty. Physical Exam Physical Exam: The patient is alert and oriented. Mood and affect appeared normal. He answered all questions appropriately. Obese HEENT: Pupils are equal and reactive to light and accommodation. Extraocular movements are intact. The sclerae are anicteric. Neuro: Cranial nerves intact Lungs: Clear to auscultation bilaterally. He has good air movement without use of accessory muscles. No rales wheezes or rhonchi. Cardiac: Heart demonstrates a regular rate and rhythm. Normal S1 and S2. No murmurs on examination. Pulses: The patient has palpable radial pulses bilaterally that are equal in intensity Extremities: There was no evidence of hypoperfusion. There is no cyanosis or clubbing. Ulcerations noted on the right leg the left foot is bandaged. Skin: I did not appreciate any rashes on examination today. Results & Data ([facility]) Vital Signs (Past 12 Hours) Vital Signs Temp Pulse Pulse Resp BP BP Pulse Ox 11/05/21 15:00 36.6 C 80 17 120/50 L 97 11/05/21 14:52 36.6 C 102 H 21 122/69 98 11/05/21 14:45 36.6 C 85 17 93/55 L 98 11/05/21 14:42 36.6 C 85 17 96/52 L 97 11/05/21 14:40 36.6 C 86 17 85/55 L 99 11/05/21 14:37 36.6 C 87 20 107/58 L 95 11/05/21 14:35 36.6 C 90 16 114/62 98 11/05/21 14:30 36.6 C 93 H 19 116/80 98 11/05/21 14:15 36.7 C 92 H 15 132/64 98 11/05/21 14:11 36.7 C 93 H 19 116/58 L 99 11/05/21 14:08 36.7 C 89 17 98/54 L 97 11/05/21 14:05 36.7 C 90 16 80/55 L 97 11/05/21 14:04 36.7 C 92 H 14 83/54 L 97 11/05/21 13:50 36.7 C 94 H 19 114/72 92 11/05/21 13:44 36.7 C 94 H 12 109/67 92 11/05/21 11:30 11/05/21 13:40 36.7 C 92 H 16 89/53 L 92 11/05/21 13:30 36.6 C 131 H 16 100/84 95 11/05/21 13:27 36.6 C 134 H 18 105/87 96 11/05/21 13:23 36.6 C 135 H 23 98/48 L 92 11/05/21 13:20 36.6 C 130 H 27 H 121/66 93 11/05/21 13:18 36.6 C 140 H 18 106/69 95 11/05/21 13:15 36.6 C 145 H 15 94/63 L 96 11/05/21 13:11 36.6 C 107 H 16 101/69 87 L 11/05/21 13:08 36.5 C 110 H 17 92/71 L 94 11/05/21 12:55 36.5 C 142 H 24 82/62 L 96 11/05/21 11:10 11/05/21 13:07 109 H 26 H 97 11/05/21 12:40 36.4 C L 107 H 21 110/59 L 99 11/05/21 12:30 36.3 C L 106 H 20 93/62 L 94 11/05/21 12:10 36.3 C L 111 H 28 H 84/49 L 95 11/05/21 12:09 36.2 C L 106 H 30 H 71/52 L 96 11/05/21 12:00 36.2 C L 103 H 28 H 88/44 L 100 11/05/21 11:50 36.2 C L 98 H 18 73/38 L 98 11/05/21 11:55 11/05/21 11:45 36.2 C L 103 H 21 78/45 L 99 11/05/21 11:44 36.2 C L 102 H 19 89/42 L 98 11/05/21 11:40 36.2 C L 104 H 24 67/42 L 100 11/05/21 11:36 106 H 26 H 69/42 L 100 11/05/21 11:30 109 H 28 H 89/49 L 99 11/05/21 11:15 109 H 26 H 63/41 L 98 11/05/21 11:12 110 H 19 66/46 L 11/05/21 11:32 108 H 23 97 11/05/21 09:12 36.3 C L 67 22 138/54 L 96 O2 Del Method O2 Flow Rate FiO2 11/05/21 15:00 Oxymask 3 11/05/21 14:52 Oxymask 3 11/05/21 14:45 Oxymask 3 11/05/21 14:42 Oxymask 3 11/05/21 14:40 Oxymask 3 11/05/21 14:37 Oxymask 3 11/05/21 14:35 Oxymask 3 11/05/21 14:30 Oxymask 3 11/05/21 14:15 Oxymask 3 11/05/21 14:11 Oxymask 3 11/05/21 14:08 Oxymask 3 11/05/21 14:05 Oxymask 3 11/05/21 14:04 Oxymask 3 11/05/21 13:50 Oxymask 3 11/05/21 13:44 Oxymask 3 11/05/21 11:30 Mechanical Vent 11/05/21 13:40 Nasal Cannula 3 11/05/21 13:30 Nasal Cannula 4 11/05/21 13:27 Nasal Cannula 4 11/05/21 13:23 Nasal Cannula 4 11/05/21 13:20 Nasal Cannula 4 11/05/21 13:18 Nasal Cannula 4 11/05/21 13:15 Nasal Cannula 4 11/05/21 13:11 Nasal Cannula 4 11/05/21 13:08 Nasal Cannula 4 11/05/21 12:55 BiPAP 11/05/21 11:10 Mechanical Vent 11/05/21 13:07 40 11/05/21 12:40 Nasal Cannula 4 11/05/21 12:30 Nasal Cannula 4 11/05/21 12:10 CPAP, Mechanical Vent 40 11/05/21 12:09 CPAP, Mechanical Vent 40 11/05/21 12:00 CPAP, Mechanical Vent 40 11/05/21 11:50 CPAP, Mechanical Vent 40 11/05/21 11:55 40 11/05/21 11:45 Mechanical Vent 50 11/05/21 11:44 Mechanical Vent 50 11/05/21 11:40 Mechanical Vent 50 11/05/21 11:36 Mechanical Vent 50 11/05/21 11:30 Mechanical Vent 50 11/05/21 11:15 Mechanical Vent 50 11/05/21 11:12 11/05/21 11:32 50 11/05/21 09:12 Room Air Laboratory Results Abnormal Lab Results 11/05/21 11/05/21 11/05/21 07:29 10:11 10:40 Sample Site POC pH POC pCO2 POC pO2 POC HCO3 POC Total CO2 POC Base Excess ABG pH Cancelled ABG pCO2 Cancelled ABG pO2 Cancelled ABG HCO3 Cancelled POC ABG O2 Sat ABG O2 Saturation Cancelled ABG Base Excess Cancelled Margarito Test Cancelled VBG pH 7.03 L VBG pCO2 73 H VBG pO2 60 VBG HCO3 19 VBG O2 Saturation 83.4 VBG Base Excess -12.6 Barometric Pressure Cancelled Oxygen Given Cancelled O2 Delivery Device POC O2 Rate POC FiO2 Tidal Volume PEEP Sodium Potassium Chloride Carbon Dioxide Anion Gap BUN Creatinine Est Cr Clr Drug Dosing Est GFR ( Amer) Est GFR (Non-Af Amer) BUN/Creatinine Ratio Glucose POC Glucose 121 H Calcium Magnesium Total Bilirubin AST ALT Alkaline Phosphatase Troponin I High Sens Total Protein Albumin Globulin Albumin/Globulin Ratio Lipase Nasal Screen MRSA (PCR) 11/05/21 11/05/21 11/05/21 10:41 10:41 11:51 Sample Site L Radial POC pH 7.19 L* POC pCO2 50 H POC pO2 126 H POC HCO3 19 POC Total CO2 20 L POC Base Excess -9.0 ABG pH ABG pCO2 ABG pO2 ABG HCO3 POC ABG O2 Sat 98.0 H ABG O2 Saturation ABG Base Excess Margarito Test Pass VBG pH VBG pCO2 VBG pO2 VBG HCO3 VBG O2 Saturation VBG Base Excess Barometric Pressure Oxygen Given O2 Delivery Device Ventilator POC O2 Rate 20 POC FiO2 50 Tidal Volume 500 PEEP 8 Sodium 140 Potassium 3.7 Chloride 108 H Carbon Dioxide 20 L Anion Gap 12 H BUN 43 H Creatinine 2.33 H Est Cr Clr Drug Dosing 47.4 Est GFR ( Amer) 32.8 Est GFR (Non-Af Amer) 28.3 BUN/Creatinine Ratio 18.5 Glucose 241 H POC Glucose Calcium 8.3 L Magnesium 2.2 Total Bilirubin 0.4 AST 17 ALT 7 Alkaline Phosphatase 129 H Troponin I High Sens 35.4 H 35.9 H Total Protein 5.7 L Albumin 3.0 L Globulin 2.7 Albumin/Globulin Ratio 1.1 Lipase 41 Nasal Screen MRSA (PCR) 11/05/21 11:55 Sample Site POC pH POC pCO2 POC pO2 POC HCO3 POC Total CO2 POC Base Excess ABG pH ABG pCO2 ABG pO2 ABG HCO3 POC ABG O2 Sat ABG O2 Saturation ABG Base Excess Margarito Test VBG pH VBG pCO2 VBG pO2 VBG HCO3 VBG O2 Saturation VBG Base Excess Barometric Pressure Oxygen Given O2 Delivery Device POC O2 Rate POC FiO2 Tidal Volume PEEP Sodium Potassium Chloride Carbon Dioxide Anion Gap BUN Creatinine Est Cr Clr Drug Dosing Est GFR ( Amer) Est GFR (Non-Af Amer) BUN/Creatinine Ratio Glucose POC Glucose Calcium Magnesium Total Bilirubin AST ALT Alkaline Phosphatase Troponin I High Sens Total Protein Albumin Globulin Albumin/Globulin Ratio Lipase Nasal Screen MRSA (PCR) Negative Diagnostic Findings Echocardiogram was obtained today which revealed a hyperdynamic left ventricle. No significant valvular heart disease. Normal wall motion. ECG Additional Comments: Serial EKGs were obtained. Some EKGs demonstrate normal sinus rhythm. Others demonstrated atrial flutter. No significant ST or T wave changes. PG Care Time/CCT Total # of Minutes Spent Total Time Spent with Patient: Total time spent is greater than 50% in coordination of care (as documented) at patient's floor/unit and/or counseling patient: Coding Level of Care Code 28317 Initial Inpt Care Lvl 3 Diagnoses Cardiopulmonary arrest with successful resuscitation I46.9 Acute kidney injury superimposed on chronic kidney disease N17.9; N18.9 Elevated troponin R77.8
--- NOTE | 2021-11-05 16:38 | Post Anesthesia Assessment ---
Date of Service November 05, 2021 Post Sedation Assessment Vital Signs Temp Pulse Pulse Resp BP BP Pulse Ox 11/05/21 15:00 97.9 F 80 17 120/50 L 97 11/05/21 14:52 97.9 F 102 H 21 122/69 98 11/05/21 14:45 97.9 F 85 17 93/55 L 98 11/05/21 14:42 97.9 F 85 17 96/52 L 97 11/05/21 14:40 97.9 F 86 17 85/55 L 99 11/05/21 14:37 97.9 F 87 20 107/58 L 95 11/05/21 14:35 97.9 F 90 16 114/62 98 11/05/21 14:30 97.9 F 93 H 19 116/80 98 11/05/21 14:15 98.1 F 92 H 15 132/64 98 11/05/21 14:11 98.1 F 93 H 19 116/58 L 99 11/05/21 14:08 98.1 F 89 17 98/54 L 97 11/05/21 14:05 98.1 F 90 16 80/55 L 97 11/05/21 14:04 98.1 F 92 H 14 83/54 L 97 11/05/21 13:50 98.1 F 94 H 19 114/72 92 11/05/21 13:44 98.1 F 94 H 12 109/67 92 11/05/21 11:30 11/05/21 13:40 98.1 F 92 H 16 89/53 L 92 11/05/21 13:30 97.9 F 131 H 16 100/84 95 11/05/21 13:27 97.9 F 134 H 18 105/87 96 11/05/21 13:23 97.9 F 135 H 23 98/48 L 92 11/05/21 13:20 97.9 F 130 H 27 H 121/66 93 11/05/21 13:18 97.9 F 140 H 18 106/69 95 11/05/21 13:15 97.9 F 145 H 15 94/63 L 96 11/05/21 13:11 97.9 F 107 H 16 101/69 87 L 11/05/21 13:08 97.7 F 110 H 17 92/71 L 94 11/05/21 12:55 97.7 F 142 H 24 82/62 L 96 11/05/21 11:10 11/05/21 13:07 109 H 26 H 97 11/05/21 12:40 97.5 F L 107 H 21 110/59 L 99 11/05/21 12:30 97.3 F L 106 H 20 93/62 L 94 11/05/21 12:10 97.3 F L 111 H 28 H 84/49 L 95 11/05/21 12:09 97.2 F L 106 H 30 H 71/52 L 96 11/05/21 12:00 97.2 F L 103 H 28 H 88/44 L 100 11/05/21 11:50 97.2 F L 98 H 18 73/38 L 98 11/05/21 11:55 11/05/21 11:45 97.2 F L 103 H 21 78/45 L 99 11/05/21 11:44 97.2 F L 102 H 19 89/42 L 98 11/05/21 11:40 97.2 F L 104 H 24 67/42 L 100 11/05/21 11:36 106 H 26 H 69/42 L 100 11/05/21 11:30 109 H 28 H 89/49 L 99 11/05/21 11:15 109 H 26 H 63/41 L 98 11/05/21 11:12 110 H 19 66/46 L 11/05/21 11:32 108 H 23 97 11/05/21 09:12 97.3 F L 67 22 138/54 L 96 O2 Del Method O2 Flow Rate FiO2 11/05/21 15:00 Oxymask 3 11/05/21 14:52 Oxymask 3 11/05/21 14:45 Oxymask 3 11/05/21 14:42 Oxymask 3 11/05/21 14:40 Oxymask 3 11/05/21 14:37 Oxymask 3 11/05/21 14:35 Oxymask 3 11/05/21 14:30 Oxymask 3 11/05/21 14:15 Oxymask 3 11/05/21 14:11 Oxymask 3 11/05/21 14:08 Oxymask 3 11/05/21 14:05 Oxymask 3 11/05/21 14:04 Oxymask 3 11/05/21 13:50 Oxymask 3 11/05/21 13:44 Oxymask 3 11/05/21 11:30 Mechanical Vent 11/05/21 13:40 Nasal Cannula 3 11/05/21 13:30 Nasal Cannula 4 11/05/21 13:27 Nasal Cannula 4 11/05/21 13:23 Nasal Cannula 4 11/05/21 13:20 Nasal Cannula 4 11/05/21 13:18 Nasal Cannula 4 11/05/21 13:15 Nasal Cannula 4 11/05/21 13:11 Nasal Cannula 4 11/05/21 13:08 Nasal Cannula 4 11/05/21 12:55 BiPAP 11/05/21 11:10 Mechanical Vent 11/05/21 13:07 40 11/05/21 12:40 Nasal Cannula 4 11/05/21 12:30 Nasal Cannula 4 11/05/21 12:10 CPAP, Mechanical Vent 40 11/05/21 12:09 CPAP, Mechanical Vent 40 11/05/21 12:00 CPAP, Mechanical Vent 40 11/05/21 11:50 CPAP, Mechanical Vent 40 11/05/21 11:55 40 11/05/21 11:45 Mechanical Vent 50 11/05/21 11:44 Mechanical Vent 50 11/05/21 11:40 Mechanical Vent 50 11/05/21 11:36 Mechanical Vent 50 11/05/21 11:30 Mechanical Vent 50 11/05/21 11:15 Mechanical Vent 50 11/05/21 11:12 11/05/21 11:32 50 11/05/21 09:12 Room Air Recovery Score Activity: Moves 4 extremities Respiration: Deep Breath/Cough Circulation: +/-20% PreAnes Value Consciousness: Fully Awake Oxygen Saturation: O2 needed for >90% Discharge Sedation Level of Care: Fast Track Phase II Post Sedation Plan On clinical assessment, the patient appears to have tolerated the sedation without complications. Patient is recovering as anticipated. Patient will continue to be monitored by nursing and may be discharged when sedation discharge criteria are met per below protocol. Upon Completions of procedure up to 15 minutes continue every 5 minute vital signs and the P.A.R. score; then discharge to a Phase I or Fast Track to Phase II per the following guidelines: * Discharge Patient to appropriate Phase II area if PAR is 8 or greater or return to pre- procedure baseline. The post - procedure orders will be as directed. * If PAR score is less than 8 or not return to pre-procedure baseline then patient will follow Phase I monitoring till PAR is reached for Phase II. The Phase I may be done in procedure room or may call to secure a Phase I area. * If naloxone or flumazenil are used for reversal, hold in Phase I for continued monitoring from when last reversal dose was given for a minimum of 60 minutes or longer pending the nurse and/or physician discretion of patient condition before discharge to Phase II. Please call the Sedation Physician to re-evaluate and complete post-note for discharge to Phase II area. Do NOT discharge from procedure sedation or Phase 1 until post- sedation evaluation note is complete by procedure /sedation MD Sedation Discharge Instructions to be given to the patient at discharge to home.
--- NOTE | 2021-11-05 16:45 | Cardiac Catheterization ---
[facility] Data: Fructose Loader Cardiac Status Clinical evaluation leading to the procedure CAD Presenation: Sx unlikely to be ischemic Diagnostic Physicians Name: Devang Veliz MD Closure Device Recommendations: Medical Therapy and/or Counseling Cardiac Cath Procedure Full Procedure Date November 05, 2021 Pre-Procedure Diagnosis Pre-Procedure Diagnosis: Arrhythmia and Cardiothoracic Symptom (Cardiac arrest) AUC Score AUC Score: 7 Post-Procedure Diagnosis Post-Procedure Diagnosis: Severe CAD Procedure(s) Performed Procedure(s) Performed: Coronary Angiography and IVUS Clerk Secretary Devang Veliz MD Vehicle And Equipment Cleaner(s) Renny Estimated Blood Loss Estimated Blood Loss: 10 Medication(s) Medication(s): Fentanyl, Heparin, Lidocaine 1%, Nicardipine, Nitroglycerin and Versed Summary of Findings IVUS OF LAD For full details of patient's coronary angiography please see cath report dictated by Dr. Franco. Briefly, patient found to have a intermediate, calcified mid LAD stenosis. Decision to further evaluate with IVUS in the setting of unexplained cardiac arrest. Procedure: -Left main cannulated with 3.5 guide -BMW wire placed into distal LAD -[place] IVUS catheter placed across mid LAD stenosis -Pullback revealed severe mid LAD stenosis, heavily calcified, no thrombus (MLA 3.4 mm, 70 to 80%) -Coronary angiography revealed no apparent complications post wire/catheter removal Summary: 1. Chronic, heavily calcified severe mid LAD disease (70 to 80% by IVUS) Recommendations: No acute disease to explain patient's cardiac arrest Recommend medical management of stable coronary artery disease. If exertional anginal symptoms in the future PCI could be considered. Hemodynamics Rest Ao:: 132/78/105 Final Ao: 154/92/120 LV: 78/12 Recommendations Recommendations: Medical Therapy and/or Counseling Specimens Specimens: None Radiation Exposure (mGy) 1634 Contrast (mls) 70 Anesthesia moderate [id number] Procedural Complication(s) None Disposition ICU I attest to the content of the Intraoperative Record and any orders documented therein. Any exceptions are noted below. [facility] Card Cath Procedure Codes Therapeutic Services & Ancillary Proc Procedure 1: Cardiovascular Tx and Anc Procedures: 69799 IV Ultrasound (Coronary or Graft) Moderate Sedation Procedure 1: Sedation/Anesthesia: 64444 Mod Sedation by the same physician; Ea [id number] Minutes PG Care Time/CCT Total # of Minutes Spent Total Time Spent with Patient: Total time spent is greater than 50% in coordination of care (as documented) at patient's floor/unit and/or counseling patient:
[2021-11-05] MEDS: INSULIN ASPART PER UNIT SC SCH ×2 (17:12→20:32)
[2021-11-05] MEDS ORDERED: LACTATED RINGER'S 1,000 ML IV SCH (17:15)
--- NOTE | 2021-11-05 18:10 | Electrocardiogram Report ---
Test Reason : Blood Pressure : / mmHG Vent. Rate : 132 BPM Atrial Rate : 132 BPM P-R Int : 152 ms QRS Dur : 144 ms QT Int : 328 ms P-R-T Axes : 000 -14 064 degrees QTc Int : 485 ms Atrial flutter with ra[id ventricular response Abnormal ECG Confirmed by Devang Franco ([id number]) on 11/05/2021 6:09:38 PM Referred By: Kyaw Galvin Confirmed By:Jae Franco
--- NOTE | 2021-11-05 18:16 | Electrocardiogram Report ---
Test Reason : Blood Pressure : / mmHG Vent. Rate : 115 BPM Atrial Rate : 115 BPM P-R Int : 152 ms QRS Dur : 092 ms QT Int : 350 ms P-R-T Axes : 051 -42 069 degrees QTc Int : 484 ms Sinus tachycardia Left axis deviation Incomplete right bundle branch block Cannot rule out Inferior infarct , age undetermined Abnormal ECG When compared with ECG of 07-AUG-2021 10:34, Vent. rate has increased BY 51 BPM Incomplete right bundle branch block is now Present ST now depressed in Anterolateral leads Sinus rhythm has replaced atrial flutter Confirmed by Devang Franco ([id number]) on 11/05/2021 6:15:58 PM Referred By: Kyaw Galvin Confirmed By:Jae Franco
[2021-11-05] MEDS: ONDANSETRON INJ 2 MG/ML 2 ML VIAL IV PRN (18:30)
[2021-11-05 18:49] LABS: Potassium 4.9 mmol/L (3.5-5.1)
[2021-11-05 18:50] LABS: Magnesium 1.9 mg/dl (1.7-2.4); Phosphorus 3.8 mg/dl (2.5-4.9)
[2021-11-05] MEDS: ICU ELECTROLYTE REPLACEMENT PROTOCOL SCH (19:21)
[2021-11-05] MEDS: MAGNESIUM SULFATE / D5W 1 GM/100 ML BAG IV SCH ×2 (20:32→23:01)
[2021-11-05] MEDS: LANTUS PER UNIT CHARGE SQ SCH (20:33)
[2021-11-05] MEDS ORDERED: METOCLOPRAMIDE HCL INJ 5 MG/ML 2 ML VIAL IV STA (23:10)
[2021-11-06] MEDS: AMPICILLIN 2,000 MG in SODIUM CHLOR 0.9% AD-VAN 100 ML IV SCH ×4 (00:42→19:50)
[2021-11-06] MEDS: ONDANSETRON INJ 2 MG/ML 2 ML VIAL IV PRN (00:42)
[2021-11-06] MEDS: INSULIN ASPART PER UNIT SC SCH ×6 (00:50→20:28)
[2021-11-06 05:19] LABS: Basophils # (auto) 0.04 K/uL (0-0.2); Basophils % (auto) 0.3 %; Hematocrit (blood only) 37.1 % (40.1-51.0); Hemoglobin 11.9 g/dl (14.0-18.0); Immature Granulocytes # (auto) 0.15 K/uL (0.00-0.02); Lymphocytes # (auto) 0.66 K/uL (1.2-3.4); Lymphocytes % (auto) 4.4 %; Mean Corpuscular Hgb Conc 32.1 g/dL (32.0-36.0); Mean Corpuscular Volume 84.1 fL (80.0-100.0); Mean Platelet Volume 9.4 fL (9.4-12.4); Monocytes # (auto) 1.11 K/uL (0.24-0.82); Monocytes % (auto) 7.4 %; Neutrophils # (auto) 13.04 K/uL (1.4-6.5); Neutrophils % (auto) 86.9 %; Platelet Count 187 K/uL (130-400); RDW Coefficient of Variation 14.2 % (11.5-14.5); RDW Standard Deviation 43.4 fL (36.4-46.3); Red Blood Count 4.41 M/uL (4.63-6.08)
[2021-11-06 05:59] LABS: Albumin Level 3.5 gm/dl (3.4-5.0); Bilirubin Direct 0.1 mg/dl (0-0.2); Bilirubin,Total 0.5 mg/dl (0.2-1.0); Calcium 8.3 mg/dl (8.5-10.1); Creatinine Clr Calc Pharmacy 38.5 ml/min; Est GFR (African American) 25.2 ml/min; Est GFR (Non-African American) 21.7 ml/min; Magnesium 2.2 mg/dl (1.7-2.4); Potassium 5.1 mmol/L (3.5-5.1); Total Protein 6.7 gm/dl (6.0-8.3)
[2021-11-06] MEDS: ICU ELECTROLYTE REPLACEMENT PROTOCOL SCH (06:34)
--- NOTE | 2021-11-06 07:02 | Critical Care Progress Note ---
Date of Service November 06, 2021 Assessment & Plan (1) Cardiopulmonary arrest with successful resuscitation: (2) Osteomyelitis of great toe of left foot: (3) PAD (peripheral artery disease): (4) Diabetes mellitus with diabetic polyneuropathy: Plan 65 year old male w/ PmHx T2DM, PAD, osteomyelitis of the left great toe s/p amputation of L great toe admitted to ICU for ROSC, intubated. Neuro CAM ICU: Negative, extubated. Cardiac Cardiopulmonary Arrest with successful Resuscitation -Inciting event of PICC line insertion, ?vagal contribution. -Patient given CPR w/ few rounds of Epi while in the [facility], had ROSC after 20 minutes of CPR. -High sensitivity trop pending. -On Epinephrine and Phenylephrine gtt. -Echo performed - LV grossly normal in size, EF >70%, however limited view. -Cardiology consulted, will appreciate recs. Patient to go for catheterization today to look for CAD. -Head CT w/o acute changes - ?artifact vs acute to subacute ischemia. Started on TTM. -CTA chest: No pulmonary emboli identified, ?atelectasis vs sequela of aspiration vs infectious process, tip ET tube 1.6cm above jan, mild cardiomegaly w/ mild L ventricular hypertrophy, mod coronary artery calcification. -Extubated 11/06, weaned off pressors, febrile to 38.0 at times but otherwise hemodynamically stable. -Continue to monitor vitals at this time. -Stable for downgrade at this time. PAD -Hold statin while NPO. Respiratory Acute respiratory failure -Patient in cardiopulmonary arrest following insertion of PICC line. -Intubated at bedside in MTU, -TV 500, RR 20, PEEP 8, FiO2 50 -Extubated and now on 3L Nasal cannula. -Wean as tolerated, suction secretions PRN. GI Start full liquid diet on patient. Renal/Electrolytes LEONARDO on CKD: -History of CKD w/ baseline creat 1.8-2.1. -May be 2/2 pre-renal poor forward flow during cardiopulmonary episode. -Creatinine 2.90 today, continue to trend. -ICU electrolyte protocol. ROSETTE Garber in, monitor I&O's. Endo Type 2 Diabetes -Hold home oral medications. -Pharmacy glycemia consult in place, ICU hyperglycemia protocol. Heme -Continue to trend H&H. ID Osteomyelitis of L great Toe -S/p amputation L great toe 08/08/21 w/o complication. -Multiple bacteria growing from cultures past few months. -Patient was supposed to be started on Ampicillin today w/ insertion of PICC line. -Wound culture 10/19 growing MRSA, Corynebacterium. -Continued Ampicillin renally dosed Q6h. Lines/IV Access Peripheral access, L subclavian central line. DVT Prophylaxis Lovenox 40mg BID Dispo: ICU, Stable for downgrade. Admission and Anticipated Discharge Date Admission Date: November 05, 2021 Supervising Physician Co-Signing Physician Notes Dr. Thompson was resident physician during care of patient. I separately evaluated patient for guevara portions of the history and the exam. I was present during the critical portion of medical decision making, and I discussed the case with the resident. I generally agree with the findings and plan. Hemodynamically improved. Acute kidney injury, will continue to monitor. Okay to proceed with liquid diet: Full liquids. Leukocytosis, will continue with ampicillin. Patient can proceed with midline versus PICC for frequent a mpicillin administration. Stable for downgrade out of ICU. Subjective Patient seen at the bedside today, endorses feeling better than he was yesterday but still bad. He is thirsty and asked for more ice chips and if he'd be able to drink today. Denies shortness of breath, nausea, vomiting. Patient still having coughing fits which has been normal for him for the past few years. Review of Systems Constitutional: as per Subjective / HPI Physical Exam Constitutional: WD/WN, vitals as above Eyes: PERRL Respiratory: normal respiratory effort, lungs clear to auscultation Cardiovascular: RRR, no murmur, no edema Gastrointestinal (Abdomen): normal bowel sounds, soft, nontender, no hepatosplenomegaly Results & Data Results & Data ([facility]) Vital Signs (Past 12 Hours) Vital Signs Temp Pulse Resp BP Pulse Ox O2 Del Method O2 Flow Rate 11/06/21 05:00 37.8 C H 86 22 94 11/06/21 04:45 144/76 H 11/06/21 04:45 37.7 C H 80 26 H 97 11/06/21 04:31 130/76 11/06/21 04:31 37.6 C H 85 20 85 L 11/06/21 04:16 119/60 11/06/21 04:16 37.5 C 83 22 95 11/06/21 04:00 37.5 C 81 23 91 11/06/21 04:00 142/65 H 11/06/21 03:46 135/61 11/06/21 03:46 37.4 C 78 25 H 91 11/06/21 03:30 173/75 H 11/06/21 03:30 37.3 C 81 5 L 96 11/06/21 03:16 37.3 C 83 21 99 11/06/21 03:16 144/58 H 11/06/21 03:00 37.1 C 82 20 96 11/06/21 03:00 117/62 11/06/21 02:45 123/67 11/06/21 02:45 37.1 C 83 18 96 11/06/21 02:31 37.0 C 79 26 H 97 11/06/21 02:31 103/62 11/06/21 02:15 37.0 C 85 20 99 11/06/21 02:15 143/71 H 11/06/21 02:02 36.9 C 91 H 24 95 11/06/21 02:02 116/86 11/06/21 02:00 36.9 C 85 24 94 11/06/21 01:45 160/70 H 11/06/21 01:45 36.9 C 84 20 94 11/06/21 01:30 155/66 H 11/06/21 01:30 36.8 C 78 18 94 11/06/21 01:15 150/79 H 11/06/21 01:15 36.8 C 78 18 97 11/06/21 00:00 81 11/06/21 01:00 36.8 C 75 27 H 89 L 11/06/21 01:00 150/70 H 11/06/21 00:46 154/77 H 11/06/21 00:46 36.8 C 81 25 H 96 11/06/21 00:00 36.8 C 76 19 87 L 11/06/21 00:00 141/72 H 11/05/21 23:45 36.7 C 77 22 96 11/05/21 23:45 153/73 H 11/05/21 23:30 132/69 11/05/21 23:30 36.7 C 76 20 95 11/05/21 23:15 121/69 0801/22 23:15 36.6 C 73 17 91 11/05/21 23:00 36.6 C 72 22 94 11/05/21 23:00 148/71 H 11/05/21 22:45 137/73 11/05/21 22:45 36.6 C 71 18 95 11/05/21 22:30 154/75 H 11/05/21 22:30 36.6 C 68 15 94 11/05/21 22:15 36.6 C 71 20 97 11/05/21 22:15 149/81 H 11/05/21 22:00 36.7 C 72 17 94 11/05/21 22:00 135/74 11/05/21 21:45 36.6 C 70 12 93 11/05/21 21:45 140/72 11/05/21 21:30 168/84 H 11/05/21 21:30 36.6 C 70 19 93 11/05/21 21:15 36.7 C 69 19 95 11/05/21 21:15 160/78 H 11/05/21 21:01 36.7 C 72 17 93 11/05/21 21:01 149/79 H 11/05/21 21:00 36.7 C 68 19 91 11/05/21 20:46 36.7 C 68 37 H 96 11/05/21 20:46 139/102 H 11/05/21 20:30 132/76 11/05/21 20:30 36.7 C 67 23 97 11/05/21 20:15 134/82 11/05/21 20:15 36.6 C 72 20 95 11/05/21 20:00 36.6 C 73 23 92 11/05/21 20:00 127/77 11/05/21 19:45 36.7 C 64 22 99 11/05/21 19:45 130/79 11/05/21 19:30 137/77 11/05/21 19:30 36.7 C 67 20 96 11/05/21 19:15 134/76 11/05/21 19:15 36.6 C 69 21 92 11/05/21 19:43 Oxymask 2 Resident Activity Tracking Resident Involvement: Resident Care Provided Care Provided: Adult Hospital Medicine (1) Diabetes mellitus with diabetic polyneuropathy Diabetes mellitus halfway insulin use: unspecified skein yard drier insulin 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
[2021-11-06] MEDS ORDERED: LANTUS PER UNIT CHARGE SQ ONE (08:00)
--- NOTE | 2021-11-06 09:22 | Billing Data ---
Date of Service November 05, 2021 Coding Level of Care Code Critical Care ea addt'l 30 min Time Spent (min) 100
--- NOTE | 2021-11-06 09:36 | Cardiology Progress Note ---
Date of Service November 06, 2021 Assessment & Plan (1) Cardiopulmonary arrest with successful resuscitation: (2) Elevated troponin: (3) Acute kidney injury superimposed on chronic kidney disease: (4) Atrial flutter: Plan 1. Cardiac arrest: The etiology of his arrest still seems unclear. It seems that this was a PEA arrest. I do not believe this involved an acute coronary syndrome based on his presentation and angiography. He seems to have had some hypoperfusion and this is reflected in some his laboratory results. He does have some obstructive coronary disease, but appears to be asymptomatic. Preserved LV systolic function. No malignant arrhythmias. I do not believe he requires any additional cardiac evaluation. 2. Elevated troponin: He deafly had a period of poor perfusion which undoubtedly will result in some elevated troponin. Not it sales representative of an acute coronary syndrome. Likely it sales representative of a period of hypo perfusion and hypotension. Trending downward. 3. Atrial flutter: He did appear to have a few brief episodes of atrial flutter with associated high heart rates. However, this was in the setting a recent arrest and use of epinephrine. No additional episodes. I do not think I would treat this like a typical flutter based on the circumstances. I do not believe he requires systemic anticoagulation on this basis. The right atrium was not well visualized on his echocardiogram, but he does appear to be an individual who is at risk of sleep apnea and associated cardiac changes. This would predispose him to atrial arrhythmias, specifically atrial flutter. 4. Acute renal injury: Patient had both hypoperfusion in contrast admin istration yesterday. Fluids were administered subsequent to his catheterization in the hopes of limiting his risk for contrast nephropathy. This point will simply need to monitor his renal function avoid any additional nephrotoxins. 5. Coronary artery disease: Patient was discovered to have obstructive coronary disease on catheterization yesterday. This involves a mid LAD and mid RCA lesion. However, he does not appear to have symptoms of angina. Perhaps if he was more active he would have some symptoms. At this point our goal is aggressive secondary prevention. I would advocate continued daily baby aspirin and increase in his atorvastatin dose to at least 40 mg daily. Goal LDL would be less than 70. If triglycerides are greater than 150 on maximum dose atorvastatin and Vascepa would be indicated Admission and Anticipated Discharge Date Admission Date: November 05, 2021 Subjective This morning patient stated he was feeling better. He continues have waves of nausea and retching at times. It appears that this is a more chronic problem the 1st appreciated. He had similar symptoms prior to admission. His throat feels somewhat better. He does not feel like his breathing is compromise. No significant discomfort in his right hand. He does have some chest discomfort with inspiration. By report he does not have symptoms of chest discomfort with activity or at any time leading up to his admission. He stated he does have some sleeping difficulty recently due to some coughing at nighttime Review of Systems Review of Systems: Per HPI. Mild pain in the left foot Physical Exam Physical Exam: The patient is alert and oriented. Mood and affect appeared normal. He answered all questions appropriately. Obese HEENT: Pupils are equal and reactive to light and accommodation. Extraocular movements are intact. The sclerae are anicteric. Neuro: Cranial nerves intact Lungs: Normal respiratory effort. Some coarse upper airway sounds. Cardiac: Heart demonstrates a regular rate and rhythm. Normal S1 and S2. Pulses: Weak right radial pulse. Extremities: There was no evidence of hypoperfusion. There is no cyanosis or clubbing. There right hand is somewhat cool to the touch, but not painful and pulse ox is registering good oxygenation. Ulcerations noted on the right leg the left foot is bandaged. Skin: I did not appreciate any rashes on examination today. Results & Data ([facility]) Vital Signs (Past 12 Hours) Vital Signs Temp Pulse Resp BP Pulse Ox O2 Del Method O2 Flow Rate 11/06/21 08:30 37.9 C H 77 23 136/60 97 Oxymask 2 11/06/21 08:17 37.9 C H 77 22 124/63 98 Oxymask 2 11/06/21 08:01 37.9 C H 75 22 138/64 90 Oxymask 2 11/06/21 08:00 37.9 C H 68 22 92 11/06/21 07:46 37.9 C H 80 21 135/80 90 Oxymask 2 11/06/21 07:30 37.9 C H 79 22 131/62 93 Oxymask 2 11/06/21 07:15 37.9 C H 76 24 115/64 93 Oxymask 2 11/06/21 07:00 38.0 C H 79 22 131/78 96 Oxymask 2 11/06/21 06:45 38.0 C H 81 23 133/77 97 Oxymask 2 11/06/21 08:00 77 11/06/21 08:00 Oxymask 2 11/06/21 05:00 37.8 C H 86 22 94 11/06/21 04:45 144/76 H 11/06/21 04:45 37.7 C H 80 26 H 97 11/06/21 04:31 130/76 11/06/21 04:31 37.6 C H 85 20 85 L 11/06/21 04:16 119/60 11/06/21 04:16 37.5 C 83 22 95 11/06/21 04:00 37.5 C 81 23 91 11/06/21 04:00 142/65 H 11/06/21 03:46 135/61 11/06/21 03:46 37.4 C 78 25 H 91 11/06/21 03:30 173/75 H 11/06/21 03:30 37.3 C 81 5 L 96 11/06/21 03:16 37.3 C 83 21 99 11/06/21 03:16 144/58 H 11/06/21 03:00 37.1 C 82 20 96 11/06/21 03:00 117/62 11/06/21 02:45 123/67 11/06/21 02:45 37.1 C 83 18 96 11/06/21 02:31 37.0 C 79 26 H 97 11/06/21 02:31 103/62 11/06/21 02:15 37.0 C 85 20 99 11/06/21 02:15 143/71 H 11/06/21 02:02 36.9 C 91 H 24 95 11/06/21 02:02 116/86 11/06/21 02:00 36.9 C 85 24 94 11/06/21 01:45 160/70 H 11/06/21 01:45 36.9 C 84 20 94 11/06/21 01:30 155/66 H 11/06/21 01:30 36.8 C 78 18 94 11/06/21 01:15 150/79 H 11/06/21 01:15 36.8 C 78 18 97 11/06/21 00:00 81 11/06/21 01:00 36.8 C 75 27 H 89 L 11/06/21 01:00 150/70 H 11/06/21 00:46 154/77 H 11/06/21 00:46 36.8 C 81 25 H 96 11/06/21 00:00 36.8 C 76 19 87 L 11/06/21 00:00 141/72 H 11/05/21 23:45 36.7 C 77 22 96 11/05/21 23:45 153/73 H 11/05/21 23:30 132/69 11/05/21 23:30 36.7 C 76 20 95 11/05/21 23:15 121/69 11/05/21 23:15 36.6 C 73 17 91 11/05/21 23:00 36.6 C 72 22 94 11/05/21 23:00 148/71 H 11/05/21 22:45 137/73 11/05/21 22:45 36.6 C 71 18 95 11/05/21 22:30 154/75 H 11/05/21 22:30 36.6 C 68 15 94 11/05/21 22:15 36.6 C 71 20 97 11/05/21 22:15 149/81 H 11/05/21 22:00 36.7 C 72 17 94 11/05/21 22:00 135/74 11/05/21 21:45 36.6 C 70 12 93 11/05/21 21:45 140/72 11/05/21 21:30 168/84 H 11/05/21 21:30 36.6 C 70 19 93 Laboratory Results Abnormal Lab Results 11/05/21 11/05/21 11/05/21 07:29 10:11 10:40 WBC RBC Hgb Hct MCV MCH MCHC RDW Std Deviation RDW Coeff of Mejia Plt Count MPV Immature Gran % (Auto) Neut % (Auto) Lymph % (Auto) [place] % (Auto) Eos % (Auto) Baso % (Auto) Neut # (Auto) Lymph # (Auto) [place] # (Auto) Eos # (Auto) Baso # (Auto) Immature Gran # (Auto) Sample Site POC pH POC pCO2 POC pO2 POC HCO3 POC Total CO2 POC Base Excess ABG pH Cancelled ABG pCO2 Cancelled ABG pO2 Cancelled ABG HCO3 Cancelled POC ABG O2 Sat ABG O2 Saturation Cancelled ABG Base Excess Cancelled Margarito Test Cancelled VBG pH 7.03 L VBG pCO2 73 H VBG pO2 60 VBG HCO3 19 VBG O2 Saturation 83.4 VBG Base Excess -12.6 Barometric Pressure Cancelled Oxygen Given Cancelled O2 Delivery Device POC O2 Rate POC FiO2 Tidal Volume PEEP Sodium Potassium Chloride Carbon Dioxide Anion Gap BUN Creatinine Est Cr Clr Drug Dosing Est GFR ( Amer) Est GFR (Non-Af Amer) BUN/Creatinine Ratio Glucose POC Glucose 121 H POC Glucose (other) Calcium Phosphorus Magnesium Total Bilirubin Direct Bilirubin AST ALT Alkaline Phosphatase Troponin I High Sens Total Protein Albumin Globulin Albumin/Globulin Ratio Lipase Nasal Screen MRSA (PCR) 11/05/21 11/05/21 11/05/21 10:41 10:41 11:51 WBC RBC Hgb Hct MCV MCH MCHC RDW Std Deviation RDW Coeff of Mejia Plt Count MPV Immature Gran % (Auto) Neut % (Auto) Lymph % (Auto) [place] % (Auto) Eos % (Auto) Baso % (Auto) Neut # (Auto) Lymph # (Auto) [place] # (Auto) Eos # (Auto) Baso # (Auto) Immature Gran # (Auto) Sample Site L Radial POC pH 7.19 L* POC pCO2 50 H POC pO2 126 H POC HCO3 19 POC Total CO2 20 L POC Base Excess -9.0 ABG pH ABG pCO2 ABG pO2 ABG HCO3 POC ABG O2 Sat 98.0 H ABG O2 Saturation ABG Base Excess Margarito Test Pass VBG pH VBG pCO2 VBG pO2 VBG HCO3 VBG O2 Saturation VBG Base Excess Barometric Pressure Oxygen Given O2 Delivery Device Ventilator POC O2 Rate 20 POC FiO2 50 Tidal Volume 500 PEEP 8 Sodium 140 Potassium 3.7 Chloride 108 H Carbon Dioxide 20 L Anion Gap 12 H BUN 43 H Creatinine 2.33 H Est Cr Clr Drug Dosing 47.4 Est GFR ( Amer) 32.8 Est GFR (Non-Af Amer) 28.3 BUN/Creatinine Ratio 18.5 Glucose 241 H POC Glucose POC Glucose (other) Calcium 8.3 L Phosphorus Magnesium 2.2 Total Bilirubin 0.4 Direct Bilirubin AST 17 ALT 7 Alkaline Phosphatase 129 H Troponin I High Sens 35.4 H 35.9 H Total Protein 5.7 L Albumin 3.0 L Globulin 2.7 Albumin/Globulin Ratio 1.1 Lipase 41 Nasal Screen MRSA (PCR) 11/05/21 11/05/21 11/05/21 11:55 17:09 17:31 WBC RBC Hgb Hct MCV MCH MCHC RDW Std Deviation RDW Coeff of Mejia Plt Count MPV Immature Gran % (Auto) Neut % (Auto) Lymph % (Auto) [place] % (Auto) Eos % (Auto) Baso % (Auto) Neut # (Auto) Lymph # (Auto) [place] # (Auto) Eos # (Auto) Baso # (Auto) Immature Gran # (Auto) Sample Site POC pH POC pCO2 POC pO2 POC HCO3 POC Total CO2 POC Base Excess ABG pH ABG pCO2 ABG pO2 ABG HCO3 POC ABG O2 Sat ABG O2 Saturation ABG Base Excess Margarito Test VBG pH VBG pCO2 VBG pO2 VBG HCO3 VBG O2 Saturation VBG Base Excess Barometric Pressure Oxygen Given O2 Delivery Device POC O2 Rate POC FiO2 Tidal Volume PEEP Sodium Potassium 4.9 D Chloride Carbon Dioxide Anion Gap BUN Creatinine Est Cr Clr Drug Dosing Est GFR ( Amer) Est GFR (Non-Af Amer) BUN/Creatinine Ratio Glucose POC Glucose POC Glucose (other) 211 H Calcium Phosphorus 3.8 Magnesium 1.9 Total Bilirubin Direct Bilirubin AST ALT Alkaline Phosphatase Troponin I High Sens Total Protein Albumin Globulin Albumin/Globulin Ratio Lipase Nasal Screen MRSA (PCR) Negative 11/05/21 11/06/21 11/06/21 20:31 00:16 00:47 WBC RBC Hgb Hct MCV MCH MCHC RDW Std Deviation RDW Coeff of Mejia Plt Count MPV Immature Gran % (Auto) Neut % (Auto) Lymph % (Auto) [place] % (Auto) Eos % (Auto) Baso % (Auto) Neut # (Auto) Lymph # (Auto) [place] # (Auto) Eos # (Auto) Baso # (Auto) Immature Gran # (Auto) Sample Site POC pH POC pCO2 POC pO2 POC HCO3 POC Total CO2 POC Base Excess ABG pH ABG pCO2 ABG pO2 ABG HCO3 POC ABG O2 Sat ABG O2 Saturation ABG Base Excess Margarito Test VBG pH VBG pCO2 VBG pO2 VBG HCO3 VBG O2 Saturation VBG Base Excess Barometric Pressure Oxygen Given O2 Delivery Device POC O2 Rate POC FiO2 Tidal Volume PEEP Sodium Potassium Chloride Carbon Dioxide Anion Gap BUN Creatinine Est Cr Clr Drug Dosing Est GFR ( Amer) Est GFR (Non-Af Amer) BUN/Creatinine Ratio Glucose POC Glucose 216 H 237 H POC Glucose (other) Calcium Phosphorus Magnesium Total Bilirubin Direct Bilirubin AST ALT Alkaline Phosphatase Troponin I High Sens 1175.8 H* D Total Protein Albumin Globulin Albumin/Globulin Ratio Lipase Nasal Screen MRSA (PCR) 11/06/21 11/06/21 11/06/21 04:30 05:01 05:01 WBC 15.00 H RBC 4.41 L Hgb 11.9 L Hct 37.1 L MCV 84.1 MCH 27.0 MCHC 32.1 RDW Std Deviation 43.4 RDW Coeff of Mejia 14.2 Plt Count 187 MPV 9.4 Immature Gran % (Auto) 1.0 Neut % (Auto) 86.9 Lymph % (Auto) 4.4 [place] % (Auto) 7.4 Eos % (Auto) 0.0 Baso % (Auto) 0.3 Neut # (Auto) 13.04 H Lymph # (Auto) 0.66 L [place] # (Auto) 1.11 H Eos # (Auto) 0.00 Baso # (Auto) 0.04 Immature Gran # (Auto) 0.15 H Sample Site POC pH POC pCO2 POC pO2 POC HCO3 POC Total CO2 POC Base Excess ABG pH ABG pCO2 ABG pO2 ABG HCO3 POC ABG O2 Sat ABG O2 Saturation ABG Base Excess Margarito Test VBG pH VBG pCO2 VBG pO2 VBG HCO3 VBG O2 Saturation VBG Base Excess Barometric Pressure Oxygen Given O2 Delivery Device POC O2 Rate POC FiO2 Tidal Volume PEEP Sodium 135 L Potassium 5.1 Chloride 103 Carbon Dioxide 21 Anion Gap 11 BUN 55 H Creatinine 2.90 H D Est Cr Clr Drug Dosing 38.5 Est GFR ( Amer) 25.2 Est GFR (Non-Af Amer) 21.7 BUN/Creatinine Ratio 19.0 Glucose 205 H POC Glucose 196 H POC Glucose (other) Calcium 8.3 L Phosphorus 5.0 H D Magnesium 2.2 Total Bilirubin 0.5 Direct Bilirubin 0.1 AST 39 ALT 20 Alkaline Phosphatase 120 H Troponin I High Sens Total Protein 6.7 Albumin 3.5 Globulin Albumin/Globulin Ratio Lipase Nasal Screen MRSA (PCR) 11/06/21 11/06/21 05:01 07:19 WBC RBC Hgb Hct MCV MCH MCHC RDW Std Deviation RDW Coeff of Mejia Plt Count MPV Immature Gran % (Auto) Neut % (Auto) Lymph % (Auto) [place] % (Auto) Eos % (Auto) Baso % (Auto) Neut # (Auto) Lymph # (Auto) [place] # (Auto) Eos # (Auto) Baso # (Auto) Immature Gran # (Auto) Sample Site POC pH POC pCO2 POC pO2 POC HCO3 POC Total CO2 POC Base Excess ABG pH ABG pCO2 ABG pO2 ABG HCO3 POC ABG O2 Sat ABG O2 Saturation ABG Base Excess Margarito Test VBG pH VBG pCO2 VBG pO2 VBG HCO3 VBG O2 Saturation VBG Base Excess Barometric Pressure Oxygen Given O2 Delivery Device POC O2 Rate POC FiO2 Tidal Volume PEEP Sodium Potassium Chloride Carbon Dioxide Anion Gap BUN Creatinine Est Cr Clr Drug Dosing Est GFR ( Amer) Est GFR (Non-Af Amer) BUN/Creatinine Ratio Glucose POC Glucose 190 H POC Glucose (other) Calcium Phosphorus Magnesium Total Bilirubin Direct Bilirubin AST ALT Alkaline Phosphatase Troponin I High Sens 937.9 H* D Total Protein Albumin Globulin Albumin/Globulin Ratio Lipase Nasal Screen MRSA (PCR) Diagnostic Findings Echocardiogram was obtained today which revealed a hyperdynamic left ventricle. No significant valvular heart disease. Normal wall motion. Cardiac catheterization performed yesterday revealed some obstructive coronary disease involving the mid LAD and mid right coronary artery. No acute coronary syndrome. Normal left ventricular filling pressures. ECG Additional Comments: Serial EKGs were obtained. Some EKGs demonstrate normal sinus rhythm. Others demonstrated atrial flutter. No significant ST or T wave changes. PG Care Time/CCT Total # of Minutes Spent Total Time Spent with Patient: Total time spent is greater than 50% in coordination of care (as documented) at patient's floor/unit and/or counseling patient: Coding Level of Care Code 19149 Subseq Hosp Care Lvl 2 Diagnoses Cardiopulmonary arrest with successful resuscitation I46.9 Elevated troponin R77.8 Acute kidney injury superimposed on chronic kidney disease N17.9; N18.9 Atrial flutter I48.92
[2021-11-06] MEDS: Standard 16mcg/mL; 4 MG in 250 mL for BRADYCARDIA IV SCH (10:16)
[2021-11-06] MEDS ORDERED: TAMSULOSIN HCL 0.4 MG CAP PO ONE (11:00)
--- NOTE | 2021-11-06 11:25 | Hospitalist Progress Note ---
Date of Service November 06, 2021 Assessment & Plan (1) Cardiopulmonary arrest with successful resuscitation: Plan: 65 year old male w/ PMH T2DM, PAD, osteomyelitis of the left great toe s/p amputation of L great toe admitted to ICU for cardiopulmonary arrest during PICC line placement requiring CPR with eventual ROSC. Cardiopulmonary arrest s/p CPR with ROSC Arrest occurring during PICC line placement, unclear etiology possible transient arrhythmia versus vagal episode Downgraded from ICU on 11/06 after successful extubation and weaning off vasopressors Echocardiogram- limited due to technically difficult study- EF 70+ %, grade 1 diastolic dysfunction Cardiology consulted -Catheterization 11/05- mid LAD + mid RCA obstructive CAD with 70% stenosis noted -Recommend medical management of CAD- daily aspirin, increase atorvastatin to 40 mg daily -Troponin 1180 after catheterization downtrending to 940, unlikely to indicate ACS -No further cardiology evaluation indicated - Most recent EKG unremarkable - Continue telemetry monitoring in PCU Acute respiratory failure Required intubation during cardiopulmonary arrest, extubated later same day - CT Chest 11/05- no pulmonary emboli, +airspace opacities b/l upper lobes which may indicate atelectasis, multiple acute anterior rib fractures - Saturating appropriately on 2L oxymask at this time - Attempt wean to RA as pt is not on O2 at home Osteomyelitis of left great toe Status post amputation on 08/08/2021, subsequent cultures in 09/2021 and 10/2021 growing Enterococcus, MRSA, Corynebacterium Will require ampicillin x6 weeks after insertion of PICC line today Continue renally dosed ampicillin 2g IV q6h LEONARDO on CKD3 Baseline creatinine 1.8-2.1 Creatinine at 2.3 to 2.9 since admission Trend BMP, consider gentle fluid repletion if Cr worsens DM2 Holding home regimen Glenn, ISS DVT prophylaxis: Lovenox 40 mg BID Diet: Full liquids Dispo: Downgraded from ICU to PCU CODE STATUS: Full (2) Hypertension: (3) Dyslipidemia: (4) Depression: (5) Diabetes mellitus with diabetic polyneuropathy: (6) CKD (chronic kidney disease): (7) PAD (peripheral artery disease): (8) Osteomyelitis of great toe of left foot: Admission and Anticipated Discharge Date Admission Date: November 05, 2021 Supervising Physician Co-Signing Physician Notes I personally examined the patient and verified all guevara points of history and exam, discussed case, and agree with decision making with Dr Toure. Feeling better. Some chest pain from CPR but tolerable. No other new complaints. Vitals noted, in general he is awake and alert pleasant no distress. HEENT normocephalic atraumatic mucous membranes moist. Breathing unlabored no accessory muscle use good effort. Chest wall tender to palpation but not exquisitely so, no crepitus. Neuro without focal deficits. Cardiopulmonary arreststatus post ROSCdoing better. Stable for telemetry. Continue supportive care. Otherwise as above. Subjective Pt remained stable in ICU overnight. Successfully weaned off pressors and extubated. On evaluation, pt does report some superficial chest pain over sternum where chest compressions were performed. He also endorses some dry cough. Denies any other pain or dyspnea. Review of Systems Review of Systems: Per subjective Physical Exam Constitutional: WD/WN, vitals as above Eyes: PERRL ENMT: Wearing oxymask Respiratory: Audible course lung sounds w/o auscultation, lungs mildly course to auscultation bilaterally. Cardiovascular: RRR, no murmur, no edema Chest (Breasts): Additional Comments: Mildly tender to palpation over sternum Gastrointestinal (Abdomen): normal bowel sounds, soft, nontender, no hepatosplenomegaly Results & Data Results & Data ([facility]) Vital Signs (Past 12 Hours) Vital Signs Temp Pulse Resp BP Pulse Ox O2 Del Method O2 Flow Rate 11/06/21 10:46 37.8 C H 82 22 159/82 H 93 Oxymask 3 11/06/21 10:42 37.8 C H 75 19 106/68 95 Oxymask 3 11/06/21 10:16 37.8 C H 81 23 123/83 93 Oxymask 3 11/06/21 10:01 37.8 C H 79 29 H 143/56 H 94 Oxymask 3 11/06/21 09:00 37.8 C H 77 24 167/83 H 97 Oxymask 3 11/06/21 08:47 37.9 C H 75 25 H 109/84 99 Oxymask 3 11/06/21 08:30 37.9 C H 77 23 136/60 97 Oxymask 2 11/06/21 08:17 37.9 C H 77 22 124/63 98 Oxymask 2 11/06/21 08:01 37.9 C H 75 22 138/64 90 Oxymask 2 11/06/21 08:00 37.9 C H 68 22 92 11/06/21 07:46 37.9 C H 80 21 135/80 90 Oxymask 2 11/06/21 07:30 37.9 C H 79 22 131/62 93 Oxymask 2 11/06/21 07:15 37.9 C H 76 24 115/64 93 Oxymask 2 11/06/21 07:00 38.0 C H 79 22 131/78 96 Oxymask 2 11/06/21 06:45 38.0 C H 81 23 133/77 97 Oxymask 2 11/06/21 08:00 77 11/06/21 08:00 Oxymask 2 11/06/21 05:00 37.8 C H 86 22 94 11/06/21 04:45 144/76 H 11/06/21 04:45 37.7 C H 80 26 H 97 11/06/21 04:31 130/76 11/06/21 04:31 37.6 C H 85 20 85 L 11/06/21 04:16 119/60 11/06/21 04:16 37.5 C 83 22 95 11/06/21 04:00 37.5 C 81 23 91 11/06/21 04:00 142/65 H 11/06/21 03:46 135/61 11/06/21 03:46 37.4 C 78 25 H 91 11/06/21 03:30 173/75 H 11/06/21 03:30 37.3 C 81 5 L 96 11/06/21 03:16 37.3 C 83 21 99 11/06/21 03:16 144/58 H 11/06/21 03:00 37.1 C 82 20 96 11/06/21 03:00 117/62 11/06/21 02:45 123/67 11/06/21 02:45 37.1 C 83 18 96 11/06/21 02:31 37.0 C 79 26 H 97 11/06/21 02:31 103/62 11/06/21 02:15 37.0 C 85 20 99 11/06/21 02:15 143/71 H 11/06/21 02:02 36.9 C 91 H 24 95 11/06/21 02:02 116/86 11/06/21 02:00 36.9 C 85 24 94 11/06/21 01:45 160/70 H 11/06/21 01:45 36.9 C 84 20 94 11/06/21 01:30 155/66 H 11/06/21 01:30 36.8 C 78 18 94 11/06/21 01:15 150/79 H 11/06/21 01:15 36.8 C 78 18 97 11/06/21 00:00 81 11/06/21 01:00 36.8 C 75 27 H 89 L 11/06/21 01:00 150/70 H 11/06/21 00:46 154/77 H 11/06/21 00:46 36.8 C 81 25 H 96 11/06/21 00:00 36.8 C 76 19 87 L 11/06/21 00:00 141/72 H 11/05/21 23:45 36.7 C 77 22 96 11/05/21 23:45 153/73 H 11/05/21 23:30 132/69 11/05/21 23:30 36.7 C 76 20 95 Resident Activity Tracking Resident Involvement: Resident Care Provided Care Provided: Adult Hospital Medicine (1) Diabetes mellitus with diabetic polyneuropathy Diabetes mellitus [facility] insulin use: unspecified 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
[2021-11-06] MEDS: ENOXAPARIN INJ 40 MG/0.4 ML SYR SQ SCH (11:39)
--- NOTE | 2021-11-06 11:43 | Electrocardiogram Report ---
Test Reason : Blood Pressure : / mmHG Vent. Rate : 072 BPM Atrial Rate : 072 BPM P-R Int : 168 ms QRS Dur : 104 ms QT Int : 408 ms P-R-T Axes : 047 -23 062 degrees QTc Int : 446 ms Poor data quality, interpretation may be adversely affected Normal sinus rhythm Normal ECG Confirmed by Devang Franco ([id number]) on 11/06/2021 11:42:45 AM Referred By: Kyaw Galvin Confirmed By:Jae Franco
--- NOTE | 2021-11-06 12:17 | Pharmacy Report ---
Pharmacy Glycemic Short Note 2 - Date of Service November 06, 2021 - Glycemic Short BSG Results (Last 24 hours): 11/05/21 11/05/21 11/06/21 17:09 20:31 00:47 Glucose POC Glucose 216 H 237 H POC Glucose (other) 211 H 11/06/21 11/06/21 11/06/21 04:30 05:01 07:19 Glucose 205 H POC Glucose 196 H 190 H POC Glucose (other) 11/06/21 11:31 Glucose POC Glucose 146 H POC Glucose (other) OUTPATIENT ANTIDIABETIC REGIMEN: * Lantus 70 units qAM * Novolog 25units @ breakfast, 20units @ lunch, and 15 units @ dinner * Jardiance 25mg PO daily * Metformin 500mg PO BID HbA1C: 7.8% (08/16/21) ASSESSMENT: 11/06 * BSGs did climb to low 200s last evening however have become to fall to the upper 100s as of this AM * Pressors have been weaned off. Patient remains extubated. He remains NPO however * Will adjust Novolog CF and CR. New doses will be based upon total outpt daily insulin dose of ~130 units/day * Will give additional basal insulin this AM as pt remains hyperglycemic despite 20 units Lantus last evening and 12 units correctional insulin overnight 11/05 * Patient is a type 2 diabetic with a history of CKD and osteomyelitis of the foot. He is s/p cardiac arrest after presenting this AM to [facility] for PICC line placement and antibiotic infusion. Pharmacy consulted to assist with glycemic management in this setting. * S/p cardiac arrest, hypotensive, requiring vasopressor support with epinephrine and phenylephrine (in D5W, 72ml/hr). Patient intubated prior to transport to ICU, however extubated earlier this afternoon after arriving to ICU. Receiving antibiotics. * Plan to initiate basal/bolus insulin. Novolog ~ AdjBW/stress 2 q4h while NPO. * Lantus scale tonight based upon HS BSG. PLAN FOR INPATIENT GLYCEMIC CONTROL: * Hold outpatient oral diabetes medications * Basal insulin * Lantus scale 15 units x 1 this AM, then dose per scale this PM: 0 units if BSG less than 110, 15 units if BSG 110-180, 20 units if BSG greater than 180 * Bolus insulin * NovoLog per scale ACHS or Q4hrs while NPO * Goal Range: Low 110 mg/dL - High 140 mg/dL * Correction Factor: 12 mg/dL/unit * Nutritional / Prandial insulin per carb ratio of 1 unit per 4 grams CHO consumed
--- NOTE | 2021-11-06 17:33 | Billing Data ---
Date of Service November 06, 2021 Coding Level of Care Code 18337 Subseq Hosp Care Lvl 2
[2021-11-06] MEDS: DULoxetine HCL 20 MG CAP PO SCH (20:16)
[2021-11-06] MEDS: PANTOprazole 40 MG TAB PO SCH (20:16)
[2021-11-06] MEDS: LANTUS PER UNIT CHARGE SQ SCH (20:29)
[2021-11-07] MEDS: AMPICILLIN 2,000 MG in SODIUM CHLOR 0.9% AD-VAN 100 ML IV SCH ×4 (00:42→19:02)
[2021-11-07] MEDS: ENOXAPARIN INJ 40 MG/0.4 ML SYR SQ SCH ×2 (00:43→11:31)
[2021-11-07] MEDS: INSULIN ASPART PER UNIT SC SCH ×6 (00:49→22:00)
[2021-11-07 05:52] LABS: Hematocrit (blood only) 32.1 % (40.1-51.0); Hemoglobin 10.3 g/dl (14.0-18.0); Mean Corpuscular Hemoglobin 27.2 pg (25.0-34.0); Mean Corpuscular Hgb Conc 32.1 g/dL (32.0-36.0); Mean Corpuscular Volume 84.7 fL (80.0-100.0); Mean Platelet Volume 9.3 fL (9.4-12.4); Platelet Count 125 K/uL (130-400); RDW Coefficient of Variation 14.3 % (11.5-14.5); Red Blood Count 3.79 M/uL (4.63-6.08)
[2021-11-07 06:21] LABS: Albumin Level 3.3 gm/dl (3.4-5.0); BUN Creatinine Ratio 21.1 (10-20); Bilirubin Direct 0.1 mg/dl (0-0.2); Bilirubin,Total 0.7 mg/dl (0.2-1.0); Calcium 8.5 mg/dl (8.5-10.1); Creatinine Clr Calc Pharmacy 39.2 ml/min; Est GFR (African American) 25.7 ml/min; Est GFR (Non-African American) 22.2 ml/min; Magnesium 2.4 mg/dl (1.7-2.4); Phosphorus 4.9 mg/dl (2.5-4.9); Potassium 5.2 mmol/L (3.5-5.1); Total Protein 6.5 gm/dl (6.0-8.3)
[2021-11-07 06:23] LABS: Basophils # (auto) 0.03 K/uL (0-0.2); Basophils % (auto) 0.2 %; Eosinophils # (auto) 0.17 K/uL (0-0.50); Eosinophils % (auto) 1.3 %; Immature Granulocytes # (auto) 0.14 K/uL (0.00-0.02); Immature Granulocytes % (auto) 1.1 %; Lymphocytes # (auto) 0.63 K/uL (1.2-3.4); Monocytes # (auto) 1.15 K/uL (0.24-0.82); Monocytes % (auto) 9.1 %; Neutrophils # (auto) 10.58 K/uL (1.4-6.5); Neutrophils % (auto) 83.3 %; RBC Morphology Unremarkable
[2021-11-07] MEDS: ATORVASTATIN 40 MG TAB PO SCH (09:00)
[2021-11-07] MEDS: ASPIRIN 81 MG CHEW PO SCH (09:00)
[2021-11-07] MEDS: DULoxetine HCL 20 MG CAP PO SCH ×2 (09:01→22:08)
[2021-11-07] MEDS: PANTOprazole 40 MG TAB PO SCH ×2 (09:01→22:09)
[2021-11-07] MEDS: LANTUS PER UNIT CHARGE SQ SCH ×2 (09:04→22:00)
--- NOTE | 2021-11-07 09:56 | Hospitalist Progress Note ---
Date of Service November 07, 2021 Assessment & Plan (1) Cardiopulmonary arrest with successful resuscitation: Plan: 65 year old male w/ PMH T2DM, PAD, osteomyelitis of the left great toe s/p amputation of L great toe admitted to ICU for cardiopulmonary arrest during PICC line placement requiring CPR with eventual ROSC. Osteomyelitis of left great toe Status post amputation on 08/08/2021, subsequent cultures in 09/2021 and 10/2021 growing Enterococcus, MRSA, Corynebacterium Continue renally dosed ampicillin 2g IV q6h at present - Of note, pt apparently scheduled to receive 6 weeks of ampicillin through mid- line per ID provider in [place]. Due to most recent wound culture growing MRSA, he may need PICC if vancomycin indicated. Will attempt to contact ID provider to clarify this Cardiopulmonary arrest s/p CPR with ROSC Arrest occurring during PICC line placement, unclear etiology possible transient arrhythmia versus vagal episode Downgraded from ICU on 11/06 after successful extubation and weaning off vasopressors Echocardiogram- limited due to technically difficult study- EF 70+ %, grade 1 diastolic dysfunction Cardiology consulted -Catheterization 11/05- mid LAD + mid RCA obstructive CAD with 70% stenosis noted -Recommend medical management of CAD- daily aspirin, increase atorvastatin to 40 mg daily -Troponin 1180 after catheterization downtrending to 940, unlikely to indicate ACS -No further cardiology evaluation indicated - Most recent EKG unremarkable - Continue telemetry monitoring Acute respiratory failure Required intubation during cardiopulmonary arrest, extubated later same day on 11/05 - CT Chest 11/05- no pulmonary emboli, +airspace opacities b/l upper lobes which may indicate atelectasis, multiple acute anterior rib fractures - Attempt wean to RA as pt is not on O2 at home- weaned off oxymask, currently saturating well on 2L NC LEONARDO on CKD3 Baseline creatinine 1.8-2.1, admission Cr 2.3 Creatinine increased to 2.9, stable at 2.85 today Encourage oral hydration, consider gentle fluid repletion if Cr worsens - Trend BMP Anemia -Hgb drop 11.9 to 10.3 today -May be dilutional given reduced WBC and Plts though given recent cardiac arrest with subsequent hypoperfusion, will check FOBT for GI source -Trend CBC Hyperkalemia - K 5.2 today, mild hyperkalemia - No arrhythmia per telemetry - Will obtain EKG - Possibly hemolyzed, will repeat BMP today DM2 Holding home regimen Lantus, ISS DVT prophylaxis: Lovenox 40 mg BID Diet: Full liquids Dispo: Medical with telemetry CODE STATUS: Full (2) Hypertension: (3) Dyslipidemia: (4) Depression: (5) Diabetes mellitus with diabetic polyneuropathy: (6) CKD (chronic kidney disease): (7) PAD (peripheral artery disease): (8) Osteomyelitis of great toe of left foot: Admission and Anticipated Discharge Date Admission Date: November 05, 2021 Supervising Physician Co-Signing Physician Notes I personally examined the patient and verified all guevara points of history and exam, discussed case, and agree with decision making with Dr Toure. Sleeping comfortably at the time I see him. Vitals noted, in general he is awake and alert pleasant no distress. HEENT normocephalic atraumatic mucous membranes moist. Breathing unlabored no accessory muscle use good effort.Neuro without focal deficits. Skin without pallor or icterus Cardiopulmonary arreststatus post ROSCdoing better. Showing improvement. Continue supportive care. Foot infectioncontinue antibiotics Otherwise as above, await PT/OT input. Subjective No acute events overnight. Pt reports feeling weak and tired today. Still endorsing chest soreness. Denies dyspnea or substernal chest pain. Tolerating liquids well without issue. Cough is slightly improved from day prior. Review of Systems Review of Systems: Per subjective Physical Exam Constitutional: WD/WN, vitals as above Eyes: PERRL ENMT: Nasal cannula in place Respiratory: Less coarse lung sounds, no wheezes, no increased work of breathing Cardiovascular: RRR, no murmur, no edema Chest (Breasts): Additional Comments: Mildly tender to palpation over sternum Gastrointestinal (Abdomen): normal bowel sounds, soft, nontender, no hepatosplenomegaly Results & Data Results & Data ([facility]) Vital Signs (Past 12 Hours) Vital Signs Temp Pulse Resp BP Pulse Ox O2 Del Method O2 Flow Rate 11/07/21 09:00 85 26 H 158/83 H 97 Nasal Cannula 4 11/07/21 08:01 77 27 H 163/77 H 97 Nasal Cannula 4 11/07/21 07:00 79 21 117/80 98 Nasal Cannula 4 11/07/21 08:00 Nasal Cannula 4 11/07/21 08:00 85 11/07/21 05:00 147/75 H 0803/22 05:00 85 27 H 97 11/07/21 04:01 86 22 93 11/07/21 04:01 162/89 H 11/07/21 04:00 83 21 98 11/07/21 03:00 141/73 H 11/07/21 03:00 84 21 99 11/07/21 02:00 84 23 97 11/07/21 02:00 157/77 H 11/07/21 01:00 86 24 99 11/07/21 01:00 136/114 H 11/07/21 00:00 37.2 C 82 25 H 11/07/21 00:00 128/71 11/06/21 23:01 80 26 H 76 L 11/06/21 23:01 149/72 H 11/06/21 22:00 82 20 97 11/06/21 22:00 161/73 H 11/07/21 00:00 81 11/06/21 22:32 Nasal Cannula 4 Resident Activity Tracking Resident Involvement: Resident Care Provided Care Provided: Adult Hospital Medicine (1) Diabetes mellitus with diabetic polyneuropathy Diabetes mellitus shelter insulin use: 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
--- NOTE | 2021-11-07 11:12 | Cardiology Progress Note ---
Date of Service November 07, 2021 Assessment & Plan (1) Cardiopulmonary arrest with successful resuscitation: (2) Elevated troponin: (3) Acute kidney injury superimposed on chronic kidney disease: (4) Atrial flutter: Plan 1. Cardiac arrest: The etiology of his arrest still seems unclear. It seems that this was a PEA arrest. Uneventful recovery so far. Not related to an acute coronary syndrome. 2. Elevated troponin: Not related to an acute coronary syndrome but likely poor perfusion during his. Resuscitation. 3. Atrial flutter: No recurrence 4. Acute renal injury: Stable. Hopefully will see some improvement in the next day or 2. 5. Coronary artery disease: He does have obstructive coronary disease based on his catheterization. No symptoms reported by the patient. Secondary prevention initiated with daily aspirin and high-dose atorvastatin. Admission and Anticipated Discharge Date Admission Date: November 05, 2021 Subjective This morning the patient feels somewhat weak. He has not ambulated but was up in a chair today. He did report some soreness in the chest. He did not describe breathing difficulty although he does have some discomfort with deep inspiration. No dizziness. Tolerating a diet. Review of Systems Review of Systems: Per HPI Physical Exam Physical Exam: The patient is alert and oriented. Mood and affect appeared normal. He answered all questions appropriately. Obese HEENT: Pupils are equal and reactive to light and accommodation. Extraocular movements are intact. The sclerae are anicteric. Neuro: Cranial nerves intact Lungs: Normal respiratory effort. Some coarse upper airway sounds. Some crackles in the bases bilaterally. No expiratory wheezing. Cardiac: Heart demonstrates a regular rate and rhythm. Normal S1 and S2. Pulses: Weak right radial pulse. Extremities: There was no evidence of hypoperfusion. There is no cyanosis or clubbing. Right hand is well perfused. Ulcerations noted on the right leg the left foot is bandaged. Skin: I did not appreciate any rashes on examination today. Results & Data ([facility]) Vital Signs (Past 12 Hours) Vital Signs Temp Pulse Resp BP Pulse Ox O2 Del Method O2 Flow Rate 11/07/21 09:00 85 26 H 158/83 H 97 Nasal Cannula 4 11/07/21 08:01 77 27 H 163/77 H 97 Nasal Cannula 4 11/07/21 07:00 79 21 117/80 98 Nasal Cannula 4 11/07/21 08:00 Nasal Cannula 4 11/07/21 08:00 85 08/03/22 05:00 147/75 H 11/07/21 05:00 85 27 H 97 11/07/21 04:01 86 22 93 11/07/21 04:01 162/89 H 11/07/21 04:00 83 21 98 11/07/21 03:00 141/73 H 11/07/21 03:00 84 21 99 11/07/21 02:00 84 23 97 11/07/21 02:00 157/77 H 11/07/21 01:00 86 24 99 11/07/21 01:00 136/114 H 11/07/21 00:00 37.2 C 82 25 H 11/07/21 00:00 128/71 11/07/21 00:00 81 Laboratory Results Abnormal Lab Results 11/05/21 11/05/21 11/05/21 07:29 10:11 10:40 WBC RBC Hgb Hct MCV MCH MCHC RDW Std Deviation RDW Coeff of Mejia Plt Count MPV Immature Gran % (Auto) Neut % (Auto) Lymph % (Auto) Childress % (Auto) Eos % (Auto) Baso % (Auto) Neut # (Auto) Lymph # (Auto) Childress # (Auto) Eos # (Auto) Baso # (Auto) Immature Gran # (Auto) Sample Site POC pH POC pCO2 POC pO2 POC HCO3 POC Total CO2 POC Base Excess ABG pH Cancelled ABG pCO2 Cancelled ABG pO2 Cancelled ABG HCO3 Cancelled POC ABG O2 Sat ABG O2 Saturation Cancelled ABG Base Excess Cancelled Margarito Test Cancelled VBG pH 7.03 L VBG pCO2 73 H VBG pO2 60 VBG HCO3 19 VBG O2 Saturation 83.4 VBG Base Excess -12.6 Barometric Pressure Cancelled Oxygen Given Cancelled O2 Delivery Device POC O2 Rate POC FiO2 Tidal Volume PEEP Sodium Potassium Chloride Carbon Dioxide Anion Gap BUN Creatinine Est Cr Clr Drug Dosing Est GFR ( Amer) Est GFR (Non-Af Amer) BUN/Creatinine Ratio Glucose POC Glucose 121 H POC Glucose (other) Calcium Phosphorus Magnesium Total Bilirubin Direct Bilirubin AST ALT Alkaline Phosphatase Troponin I High Sens Total Protein Albumin Globulin Albumin/Globulin Ratio Lipase Nasal Screen MRSA (PCR) 11/05/21 11/05/21 11/05/21 10:41 10:41 11:51 WBC RBC Hgb Hct MCV MCH MCHC RDW Std Deviation RDW Coeff of Mejia Plt Count MPV Immature Gran % (Auto) Neut % (Auto) Lymph % (Auto) Childress % (Auto) Eos % (Auto) Baso % (Auto) Neut # (Auto) Lymph # (Auto) Childress # (Auto) Eos # (Auto) Baso # (Auto) Immature Gran # (Auto) Sample Site L Radial POC pH 7.19 L* POC pCO2 50 H POC pO2 126 H POC HCO3 19 POC Total CO2 20 L POC Base Excess -9.0 ABG pH ABG pCO2 ABG pO2 ABG HCO3 POC ABG O2 Sat 98.0 H ABG O2 Saturation ABG Base Excess Margarito Test Pass VBG pH VBG pCO2 VBG pO2 VBG HCO3 VBG O2 Saturation VBG Base Excess Barometric Pressure Oxygen Given O2 Delivery Device Ventilator POC O2 Rate 20 POC FiO2 50 Tidal Volume 500 PEEP 8 Sodium 140 Potassium 3.7 Chloride 108 H Carbon Dioxide 20 L Anion Gap 12 H BUN 43 H Creatinine 2.33 H Est Cr Clr Drug Dosing 47.4 Est GFR ( Amer) 32.8 Est GFR (Non-Af Amer) 28.3 BUN/Creatinine Ratio 18.5 Glucose 241 H POC Glucose POC Glucose (other) Calcium 8.3 L Phosphorus Magnesium 2.2 Total Bilirubin 0.4 Direct Bilirubin AST 17 ALT 7 Alkaline Phosphatase 129 H Troponin I High Sens 35.4 H 35.9 H Total Protein 5.7 L Albumin 3.0 L Globulin 2.7 Albumin/Globulin Ratio 1.1 Lipase 41 Nasal Screen MRSA (PCR) 11/05/21 11/05/21 11/05/21 11:55 17:09 17:31 WBC RBC Hgb Hct MCV MCH MCHC RDW Std Deviation RDW Coeff of Mejia Plt Count MPV Immature Gran % (Auto) Neut % (Auto) Lymph % (Auto) Childress % (Auto) Eos % (Auto) Baso % (Auto) Neut # (Auto) Lymph # (Auto) Childress # (Auto) Eos # (Auto) Baso # (Auto) Immature Gran # (Auto) Sample Site POC pH POC pCO2 POC pO2 POC HCO3 POC Total CO2 POC Base Excess ABG pH ABG pCO2 ABG pO2 ABG HCO3 POC ABG O2 Sat ABG O2 Saturation ABG Base Excess Margarito Test VBG pH VBG pCO2 VBG pO2 VBG HCO3 VBG O2 Saturation VBG Base Excess Barometric Pressure Oxygen Given O2 Delivery Device POC O2 Rate POC FiO2 Tidal Volume PEEP Sodium Potassium 4.9 D Chloride Carbon Dioxide Anion Gap BUN Creatinine Est Cr Clr Drug Dosing Est GFR ( Amer) Est GFR (Non-Af Amer) BUN/Creatinine Ratio Glucose POC Glucose POC Glucose (other) 211 H Calcium Phosphorus 3.8 Magnesium 1.9 Total Bilirubin Direct Bilirubin AST ALT Alkaline Phosphatase Troponin I High Sens Total Protein Albumin Globulin Albumin/Globulin Ratio Lipase Nasal Screen MRSA (PCR) Negative 11/05/21 11/06/21 11/06/21 20:31 00:16 00:47 WBC RBC Hgb Hct MCV MCH MCHC RDW Std Deviation RDW Coeff of Mejia Plt Count MPV Immature Gran % (Auto) Neut % (Auto) Lymph % (Auto) Childress % (Auto) Eos % (Auto) Baso % (Auto) Neut # (Auto) Lymph # (Auto) Childress # (Auto) Eos # (Auto) Baso # (Auto) Immature Gran # (Auto) Sample Site POC pH POC pCO2 POC pO2 POC HCO3 POC Total CO2 POC Base Excess ABG pH ABG pCO2 ABG pO2 ABG HCO3 POC ABG O2 Sat ABG O2 Saturation ABG Base Excess Margarito Test VBG pH VBG pCO2 VBG pO2 VBG HCO3 VBG O2 Saturation VBG Base Excess Barometric Pressure Oxygen Given O2 Delivery Device POC O2 Rate POC FiO2 Tidal Volume PEEP Sodium Potassium Chloride Carbon Dioxide Anion Gap BUN Creatinine Est Cr Clr Drug Dosing Est GFR ( Amer) Est GFR (Non-Af Amer) BUN/Creatinine Ratio Glucose POC Glucose 216 H 237 H POC Glucose (other) Calcium Phosphorus Magnesium Total Bilirubin Direct Bilirubin AST ALT Alkaline Phosphatase Troponin I High Sens 1175.8 H* D Total Protein Albumin Globulin Albumin/Globulin Ratio Lipase Nasal Screen MRSA (PCR) 11/06/21 11/06/21 11/06/21 04:30 05:01 05:01 WBC 15.00 H RBC 4.41 L Hgb 11.9 L Hct 37.1 L MCV 84.1 MCH 27.0 MCHC 32.1 RDW Std Deviation 43.4 RDW Coeff of Mejia 14.2 Plt Count 187 MPV 9.4 Immature Gran % (Auto) 1.0 Neut % (Auto) 86.9 Lymph % (Auto) 4.4 Childress % (Auto) 7.4 Eos % (Auto) 0.0 Baso % (Auto) 0.3 Neut # (Auto) 13.04 H Lymph # (Auto) 0.66 L Childress # (Auto) 1.11 H Eos # (Auto) 0.00 Baso # (Auto) 0.04 Immature Gran # (Auto) 0.15 H Sample Site POC pH POC pCO2 POC pO2 POC HCO3 POC Total CO2 POC Base Excess ABG pH ABG pCO2 ABG pO2 ABG HCO3 POC ABG O2 Sat ABG O2 Saturation ABG Base Excess Margarito Test VBG pH VBG pCO2 VBG pO2 VBG HCO3 VBG O2 Saturation VBG Base Excess Barometric Pressure Oxygen Given O2 Delivery Device POC O2 Rate POC FiO2 Tidal Volume PEEP Sodium 135 L Potassium 5.1 Chloride 103 Carbon Dioxide 21 Anion Gap 11 BUN 55 H Creatinine 2.90 H D Est Cr Clr Drug Dosing 38.5 Est GFR ( Amer) 25.2 Est GFR (Non-Af Amer) 21.7 BUN/Creatinine Ratio 19.0 Glucose 205 H POC Glucose 196 H POC Glucose (other) Calcium 8.3 L Phosphorus 5.0 H D Magnesium 2.2 Total Bilirubin 0.5 Direct Bilirubin 0.1 AST 39 ALT 20 Alkaline Phosphatase 120 H Troponin I High Sens Total Protein 6.7 Albumin 3.5 Globulin Albumin/Globulin Ratio Lipase Nasal Screen MRSA (PCR) 11/06/21 11/06/21 05:01 07:19 WBC RBC Hgb Hct MCV MCH MCHC RDW Std Deviation RDW Coeff of Mejia Plt Count MPV Immature Gran % (Auto) Neut % (Auto) Lymph % (Auto) Childress % (Auto) Eos % (Auto) Baso % (Auto) Neut # (Auto) Lymph # (Auto) Childress # (Auto) Eos # (Auto) Baso # (Auto) Immature Gran # (Auto) Sample Site POC pH POC pCO2 POC pO2 POC HCO3 POC Total CO2 POC Base Excess ABG pH ABG pCO2 ABG pO2 ABG HCO3 POC ABG O2 Sat ABG O2 Saturation ABG Base Excess Margarito Test VBG pH VBG pCO2 VBG pO2 VBG HCO3 VBG O2 Saturation VBG Base Excess Barometric Pressure Oxygen Given O2 Delivery Device POC O2 Rate POC FiO2 Tidal Volume PEEP Sodium Potassium Chloride Carbon Dioxide Anion Gap BUN Creatinine Est Cr Clr Drug Dosing Est GFR ( Amer) Est GFR (Non-Af Amer) BUN/Creatinine Ratio Glucose POC Glucose 190 H POC Glucose (other) Calcium Phosphorus Magnesium Total Bilirubin Direct Bilirubin AST ALT Alkaline Phosphatase Troponin I High Sens 937.9 H* D Total Protein Albumin Globulin Albumin/Globulin Ratio Lipase Nasal Screen MRSA (PCR) Diagnostic Findings Echocardiogram was obtained today which revealed a hyperdynamic left ventricle. No significant valvular heart disease. Normal wall motion. Cardiac catheterization performed yesterday revealed some obstructive coronary disease involving the mid LAD and mid right coronary artery. No acute coronary syndrome. Normal left ventricular filling pressures. ECG Additional Comments: Serial EKGs were obtained. Some EKGs demonstrate normal sinus rhythm. Others demonstrated atrial flutter. No significant ST or T wave changes. PG Care Time/CCT Total # of Minutes Spent Total Time Spent with Patient: Total time spent is greater than 50% in coordination of care (as documented) at patient's floor/unit and/or counseling patient: Coding Level of Care Code 43705 Subseq Hosp Care Lvl 2 Diagnoses Cardiopulmonary arrest with successful resuscitation I46.9 Elevated troponin R77.8 Acute kidney injury superimposed on chronic kidney disease N17.9; N18.9 Atrial flutter I48.92
--- NOTE | 2021-11-07 12:11 | Pharmacy Report ---
Pharmacy Glycemic Short Note 2 - Date of Service November 07, 2021 - Glycemic Short BSG Results (Last 24 hours): 11/06/21 11/06/21 11/07/21 16:36 20:23 00:48 Glucose POC Glucose 161 H 158 H 164 H 11/07/21 11/07/21 11/07/21 04:02 05:26 06:58 Glucose 137 H POC Glucose 133 H 142 H 11/07/21 11:30 Glucose POC Glucose 136 H OUTPATIENT ANTIDIABETIC REGIMEN: * Lantus 70 units qAM * Novolog 25units @ breakfast, 20units @ lunch, and 15 units @ dinner * Jardiance 25mg PO daily * Metformin 500mg PO BID HbA1C: 7.8% (08/16/21) ASSESSMENT: 11/07 * BSGs well controlled over last 24 hrs * Fasting BSG 142 this AM with 30 units basal on board and following receipt of 4 units correctional insulin over night. Diet appears to have been advanced to clears. PO intake still appears poor however. Will continue to dose Lantus BID with a small increase in dosing scale. * Continue Novolog CF/CR for now as it is difficult to assess given poor PO intake. Following post-prandial trends. 11/06 * BSGs did climb to low 200s last evening however have become to fall to the upper 100s as of this AM * Pressors have been weaned off. Patient remains extubated. He remains NPO however * Will adjust Novolog CF and CR. New doses will be based upon total outpt daily insulin dose of ~130 units/day * Will give additional basal insulin this AM as pt remains hyperglycemic despite 20 units Lantus last evening and 12 units correctional insulin overnight 11/05 * Patient is a type 2 diabetic with a history of CKD and osteomyelitis of the foot. He is s/p cardiac arrest after presenting this AM to [facility] for P[facility] line placement and antibiotic infusion. Pharmacy consulted to assist with glycemic management in this setting. * S/p cardiac arrest, hypotensive, requiring vasopressor support with epinephrine and phenylephrine (in D5W, 72ml/hr). Patient intubated prior to transport to ICU, however extubated earlier this afternoon after arriving to ICU. Receiving antibiotics. * Plan to initiate basal/bolus insulin. Novolog ~ AdjBW/stress 2 q4h while NPO. * Lantus scale tonight based upon HS BSG. PLAN FOR INPATIENT GLYCEMIC CONTROL: * Hold outpatient oral diabetes medications * Basal insulin * Lantus scale BID: 0 units if BSG less than 110, 18 units if BSG 110-180, 25 units if BSG greater than 180 * Bolus insulin * NovoLog per scale ACHS or Q4hrs while NPO * Goal Range: Low 110 mg/dL - High 140 mg/dL * Correction Factor: 12 mg/dL/unit * Nutritional / Prandial insulin per carb ratio of 1 unit per 4 grams CHO consumed
--- NOTE | 2021-11-07 13:44 | Electrocardiogram Report ---
Test Reason : Blood Pressure : / mmHG Vent. Rate : 078 BPM Atrial Rate : 078 BPM P-R Int : 160 ms QRS Dur : 096 ms QT Int : 372 ms P-R-T Axes : 031 -08 060 degrees QTc Int : 424 ms Normal sinus rhythm Normal ECG When compared with ECG of 05-NOV-2021 16:40, No significant change was found Confirmed by Devang Franco ([id number]) on 11/07/2021 1:44:15 PM Referred By: Kyaw Galvin Confirmed By:Jae Franco
[2021-11-07 15:15] LABS: BUN Creatinine Ratio 22.8 (10-20); Calcium 8.8 mg/dl (8.5-10.1); Est GFR (African American) 27.2 ml/min; Est GFR (Non-African American) 23.5 ml/min; Potassium 5.1 mmol/L (3.5-5.1)
--- NOTE | 2021-11-07 17:43 | Billing Data ---
Date of Service November 07, 2021 Coding Level of Care Code 47285 Subseq Hosp Care Lvl 2
[2021-11-07] MEDS: TAMSULOSIN HCL 0.4 MG CAP PO SCH (22:08)
[2021-11-08] MEDS: AMPICILLIN 2,000 MG in SODIUM CHLOR 0.9% AD-VAN 100 ML IV SCH ×2 (00:49→07:31)
[2021-11-08] MEDS: ENOXAPARIN INJ 40 MG/0.4 ML SYR SQ SCH ×3 (00:49→23:25)
[2021-11-08] MEDS: INSULIN ASPART PER UNIT SC SCH ×5 (02:58→20:20)
[2021-11-08 06:03] LABS: Hematocrit (blood only) 29.5 % (40.1-51.0); Hemoglobin 9.6 g/dl (14.0-18.0); Mean Corpuscular Hemoglobin 27.1 pg (25.0-34.0); Mean Corpuscular Hgb Conc 32.5 g/dL (32.0-36.0); Mean Corpuscular Volume 83.3 fL (80.0-100.0); Mean Platelet Volume 9.2 fL (9.4-12.4); Platelet Count 127 K/uL (130-400); RDW Coefficient of Variation 14.3 % (11.5-14.5); RDW Standard Deviation 43.3 fL (36.4-46.3); Red Blood Count 3.54 M/uL (4.63-6.08); White Blood Count 9.69 K/ul (4.8-10.8)
[2021-11-08 06:58] LABS: Basophils # (auto) 0.02 K/uL (0-0.2); Basophils % (auto) 0.2 %; Eosinophils # (auto) 0.01 K/uL (0-0.50); Eosinophils % (auto) 0.1 %; Lymphocytes # (auto) 0.64 K/uL (1.2-3.4); Lymphocytes % (auto) 6.6 %; Monocytes # (auto) 0.91 K/uL (0.24-0.82); Monocytes % (auto) 9.4 %; Neutrophils # (auto) 8.01 K/uL (1.4-6.5); Neutrophils % (auto) 82.7 %
[2021-11-08 07:39] LABS: Albumin Level 3.1 gm/dl (3.4-5.0); BUN Creatinine Ratio 24.9 (10-20); Bilirubin,Total 0.6 mg/dl (0.2-1.0); Calcium 8.5 mg/dl (8.5-10.1); Creatinine Clr Calc Pharmacy 48.6 ml/min; Est GFR (African American) 32.8 ml/min; Est GFR (Non-African American) 28.3 ml/min; Magnesium 2.5 mg/dl (1.7-2.4); Phosphorus 3.6 mg/dl (2.5-4.9); Potassium 4.5 mmol/L (3.5-5.1); Total Protein 6.3 gm/dl (6.0-8.3)
[2021-11-08] MEDS: DULoxetine HCL 20 MG CAP PO SCH ×2 (09:09→20:15)
[2021-11-08] MEDS: ATORVASTATIN 40 MG TAB PO SCH (09:09)
[2021-11-08] MEDS: ASPIRIN 81 MG CHEW PO SCH (09:09)
[2021-11-08] MEDS: PANTOprazole 40 MG TAB PO SCH ×2 (09:09→20:15)
[2021-11-08] MEDS: LANTUS PER UNIT CHARGE SQ SCH (09:10)
--- NOTE | 2021-11-08 10:09 | Hospitalist Progress Note ---
Date of Service November 08, 2021 Assessment & Plan (1) Cardiopulmonary arrest with successful resuscitation: Plan: 65 year old male w/ PMH T2DM, PAD, osteomyelitis of the left great toe s/p amputation of L great toe admitted to ICU for cardiopulmonary arrest during PICC line placement requiring CPR with eventual ROSC. Osteomyelitis of left great toe Status post amputation on 08/08/2021, subsequent cultures in 09/2021 and 10/2021 growing Enterococcus, MRSA, Corynebacterium Has been receiving ampicillin 2g IV q6h since admission - Of note, pt apparently scheduled to receive 6 weeks of ampicillin through mid- line per ID provider in [place]. Due to most recent wound culture growing MRSA, he may need PICC if vancomycin indicated -Contacted ID provider who deferred choice of abx to primary service - Given pt's positive MRSA wound culture from 10/2021 along with risk factors and recent cardiac arrest, will pursue MRSA treatment -Discontinue ampicillin, initiate daptomycin at renal dosing- PICC placed earlier Cardiopulmonary arrest s/p CPR with ROSC Arrest occurring during PICC line placement, unclear etiology possible transient arrhythmia versus vagal episode Downgraded from ICU on 11/06 after successful extubation and weaning off vasopressors Echocardiogram- limited due to technically difficult study- EF 70+ %, grade 1 diastolic dysfunction Cardiology consulted -Catheterization 11/05- mid LAD + mid RCA obstructive CAD with 70% stenosis noted -Recommend medical management of CAD- daily aspirin, increase atorvastatin to 40 mg daily -Troponin 1180 after catheterization downtrending to 940, unlikely to indicate ACS -No further cardiology evaluation indicated - Most recent EKG unremarkable 11/07 - Continue telemetry monitoring Acute respiratory failure Required intubation during cardiopulmonary arrest, extubated later same day on 11/05 - CT Chest 11/05- no pulmonary emboli, +airspace opacities b/l upper lobes which may indicate atelectasis, multiple acute anterior rib fractures - Attempt wean to RA as pt is not on O2 at home- weaned off oxymask, currently saturating well on 4L NC - Supportive care- incentive spirometry, flutter valve LEONARDO on CKD3 Baseline creatinine 1.8-2.1, admission Cr 2.3 to 2.85 Creatinine improving 2.85 to 2.33 Encourage oral hydration, consider gentle fluid repletion if Cr worsens - Trend BMP Anemia -Hgb drop 11.9 -> 10.3 -> 9.6 today -May be dilutional given reduced WBC and Plts as well -FOBT pending -Trend CBC DM2 Holding home regimen Lantus, ISS DVT prophylaxis: Lovenox 40 mg BID Diet: Full liquids, advance as tolerated Dispo: Medical with telemetry CODE STATUS: Full (2) Hypertension: (3) Dyslipidemia: (4) Depression: (5) Diabetes mellitus with diabetic polyneuropathy: (6) CKD (chronic kidney disease): (7) PAD (peripheral artery disease): (8) Osteomyelitis of great toe of left foot: Admission and Anticipated Discharge Date Admission Date: November 05, 2021 Supervising Physician Co-Signing Physician Notes I personally examined the patient and verified all guevara points of history and exam, discussed case, and agree with decision making with Dr Toure. Feeling better. Still has a cough with phlegm but no significant shortness of breath. Discussed overall plan of care currently, as well as plan towards discharge. Daughter present as well. Vitals noted, in general he is awake and alert pleasant no distress. HEENT normocephalic atraumatic mucous membranes moist. Breathing unlabored no accessory muscle use good effort.Neuro without focal deficits. Skin without pallor or icterus Cardiopulmonary arreststatus post ROSCdoing better. Showing improvement. Continue supportive care. PT/OT eval and treat Foot infectioncontinue antibiotics (given recent culture changed to MRSA coverage) Otherwise as above, await PT/OT input. Subjective No acute events overnight. Pt reports his chest soreness and cough are improving. Tolerating liquids well without issue. Denies dyspnea or substernal chest pain. Review of Systems Review of Systems: Per subjective Physical Exam Constitutional: WD/WN, vitals as above Eyes: PERRL ENMT: Nasal cannula in place Respiratory: Less coarse lung sounds, no wheezes, no increased work of breathing Cardiovascular: RRR, no murmur, no edema Chest (Breasts): Additional Comments: Less tender to palpation over sternum Gastrointestinal (Abdomen): normal bowel sounds, soft, nontender, no hepatosplenomegaly Results & Data Results & Data ([facility]) Vital Signs (Past 12 Hours) Vital Signs Temp Pulse Resp BP Pulse Ox 11/08/21 04:00 36.7 C 74 24 98 11/08/21 03:00 73 22 99 11/08/21 03:00 155/66 H 11/08/21 02:01 136/68 11/08/21 02:01 80 21 97 11/08/21 02:00 72 24 96 11/08/21 01:00 76 20 95 11/08/21 01:00 142/72 H 11/08/21 00:00 74 20 96 11/07/21 23:00 73 20 95 11/07/21 23:00 150/76 H 11/08/21 00:00 76 Resident Activity Tracking Resident Involvement: Resident Care Provided Care Provided: Adult Hospital Medicine (1) Diabetes mellitus with diabetic polyneuropathy Diabetes mellitus terminal gauger insulin use: unspecified terminal gauger insulin 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
[2021-11-08] MEDS: DAPTOmycin 675 MG in SYRINGE 0 ML IV SCH (12:54)
--- NOTE | 2021-11-08 13:45 | Pharmacy Report ---
Pharmacy Glycemic Short Note 2 - Date of Service November 08, 2021 - Glycemic Short BSG Results (Last 24 hours): 11/07/21 11/07/21 11/07/21 14:43 16:23 21:59 Glucose 135 H POC Glucose 126 H 155 H 11/08/21 11/08/21 11/08/21 02:56 05:23 07:21 Glucose 101 H POC Glucose 123 H 97 11/08/21 11:24 Glucose POC Glucose 140 H OUTPATIENT ANTIDIABETIC REGIMEN: * Lantus 70 units qAM * Novolog 25units @ breakfast, 20units @ lunch, and 15 units @ dinner * Jardiance 25mg PO daily * Metformin 500mg PO BID HbA1C: 7.8% (08/16/21) ASSESSMENT: 11/08 * BSGs well controlled over last 24 hrs [phone] mg/dL * Fasting this morning 97 mg/dL with 36 units of basal on board; held this morning per scale; will adjust tonight's scale to give ~25% reduction if within goal range * Continue current novolog parameters, watch closely for need to loosen 11/07 * BSGs well controlled over last 24 hrs * Fasting BSG 142 this AM with 30 units basal on board and following receipt of 4 units correctional insulin over night. Diet appears to have been advanced to clears. PO intake still appears poor however. Will continue to dose Lantus BID with a small increase in dosing scale. * Continue Novolog CF/CR for now as it is difficult to assess given poor PO intake. Following post-prandial trends. 11/06 * BSGs did climb to low 200s last evening however have become to fall to the upper 100s as of this AM * Pressors have been weaned off. Patient remains extubated. He remains NPO however * Will adjust Novolog CF and CR. New doses will be based upon total outpt daily insulin dose of ~130 units/day * Will give additional basal insulin this AM as pt remains hyperglycemic despite 20 units Lantus last evening and 12 units correctional insulin overnight 11/05 * Patient is a type 2 diabetic with a history of CKD and osteomyelitis of the foot. He is s/p cardiac arrest after presenting this AM [facility] for [facility] line placement and antibiotic infusion. Pharmacy consulted to assist with glycemic management in this setting. * S/p cardiac arrest, hypotensive, requiring vasopressor support with epinephrine and phenylephrine (in D5W, 72ml/hr). Patient intubated prior to transport to ICU, however extubated earlier this afternoon after arriving to ICU. Receiving antibiotics. * Plan to initiate basal/bolus insulin. Novolog ~ AdjBW/stress 2 q4h while NPO. * Lantus scale tonight based upon HS BSG. PLAN FOR INPATIENT GLYCEMIC CONTROL: * Hold outpatient oral diabetes medications * Basal insulin * Lantus scale BID: 18 units if BSG less than 140, 25 units if BSG 140-200, 35 units if BSG greater than 200 * Bolus insulin * NovoLog per scale ACHS or Q4hrs while NPO * Goal Range: Low 110 mg/dL - High 140 mg/dL * Correction Factor: 15 mg/dL/unit * Nutritional / Prandial insulin per carb ratio of 1 unit per 4 grams CHO consumed
[2021-11-08] MEDS: amLODIPine BESYLATE 5 MG TAB PO SCH (14:45)
--- NOTE | 2021-11-08 16:45 | Billing Data ---
Date of Service November 08, 2021 Coding Level of Care Code 26036 Subseq Hosp Care Lvl 3
[2021-11-08] MEDS: TAMSULOSIN HCL 0.4 MG CAP PO SCH (20:15)
[2021-11-08] MEDS ORDERED: LANTUS PER UNIT CHARGE SQ ONE (21:00)
[2021-11-09] MEDS ORDERED: ACETAMINOPHEN 500 MG TAB PO PRN (01:50)
[2021-11-09] MEDS: INSULIN ASPART PER UNIT SC SCH ×5 (01:51→20:45)
[2021-11-09] MEDS ORDERED: traMADol HCL 50 MG TABLET PO STA (05:38)
[2021-11-09 06:16] LABS: Basophils # (auto) 0.03 K/uL (0-0.2); Basophils % (auto) 0.3 %; Eosinophils # (auto) 0.03 K/uL (0-0.50); Eosinophils % (auto) 0.3 %; Hematocrit (blood only) 28.4 % (40.1-51.0); Hemoglobin 9.2 g/dl (14.0-18.0); Immature Granulocytes # (auto) 0.13 K/uL (0.00-0.02); Immature Granulocytes % (auto) 1.4 %; Lymphocytes # (auto) 0.62 K/uL (1.2-3.4); Lymphocytes % (auto) 6.4 %; Mean Corpuscular Hemoglobin 26.9 pg (25.0-34.0); Mean Corpuscular Hgb Conc 32.4 g/dL (32.0-36.0); Mean Platelet Volume 9.1 fL (9.4-12.4); Monocytes # (auto) 1.12 K/uL (0.24-0.82); Monocytes % (auto) 11.6 %; Neutrophils # (auto) 7.69 K/uL (1.4-6.5); Platelet Count 130 K/uL (130-400); RDW Standard Deviation 42.1 fL (36.4-46.3); Red Blood Count 3.42 M/uL (4.63-6.08); White Blood Count 9.62 K/ul (4.8-10.8)
[2021-11-09 06:42] LABS: Calcium 8.3 mg/dl (8.5-10.1); Creatinine Clr Calc Pharmacy 54.5 ml/min; Est GFR (African American) 38.5 ml/min; Est GFR (Non-African American) 33.2 ml/min; Potassium 4.1 mmol/L (3.5-5.1)
[2021-11-09] MEDS: amLODIPine BESYLATE 5 MG TAB PO SCH (07:50)
[2021-11-09] MEDS: PANTOprazole 40 MG TAB PO SCH ×2 (07:50→20:36)
[2021-11-09] MEDS: ASPIRIN 81 MG CHEW PO SCH (07:50)
[2021-11-09] MEDS: DULoxetine HCL 20 MG CAP PO SCH ×2 (07:51→20:36)
[2021-11-09] MEDS: LIDOCAINE 5% 1 PATCH TD SCH (07:51)
--- NOTE | 2021-11-09 10:04 | Pharmacy Report ---
Pharmacy Glycemic Short Note 2 - Date of Service November 09, 2021 - Glycemic Short BSG Results (Last 24 hours): 11/08/21 11/08/21 11/08/21 11:24 16:19 20:18 Glucose POC Glucose 140 H 122 H 150 H 11/09/21 11/09/21 11/09/21 01:48 05:58 07:18 Glucose 116 H POC Glucose 138 H 173 H OUTPATIENT ANTIDIABETIC REGIMEN: * Lantus 70 units qAM * Novolog 25units @ breakfast, 20units @ lunch, and 15 units @ dinner * Jardiance 25mg PO daily * Metformin 500mg PO BID HbA1C: 7.8% (08/16/21) ASSESSMENT: 11/09 * Patient received total of 43 units of insulin yesterday, of which 25 units were basal insulin * Fasting BSG 116 mg/dL, then an hour later 173 mg/dL? Plan to continue scale for basal insulin at bedtime - may use 20-30 units of basal per scale as PO intake appear to be improving. Patient typically on much higher doses of insulin at home. 11/08 * BSGs well controlled over last 24 hrs [phone] mg/dL * Fasting this morning 97 mg/dL with 36 units of basal on board; held this morning per scale; will adjust tonight's scale to give ~25% reduction if within goal range * Continue current novolog parameters, watch closely for need to loosen 11/07 * BSGs well controlled over last 24 hrs * Fasting BSG 142 this AM with 30 units basal on board and following receipt of 4 units correctional insulin over night. Diet appears to have been advanced to clears. PO intake still appears poor however. Will continue to dose Lantus BID with a small increase in dosing scale. * Continue Novolog CF/CR for now as it is difficult to assess given poor PO intake. Following post-prandial trends. 11/06 * BSGs did climb to low 200s last evening however have become to fall to the upper 100s as of this AM * Pressors have been weaned off. Patient remains extubated. He remains NPO however * Will adjust Novolog CF and CR. New doses will be based upon total outpt daily insulin dose of ~130 units/day * Will give additional basal insulin this AM as pt remains hyperglycemic despite 20 units Lantus last evening and 12 units correctional insulin overnight 8/1 * Patient is a type 2 diabetic with a history of CKD and osteomyelitis of the foot. He is s/p cardiac arrest after presenting this AM to [facility] for PICC line placement and antibiotic infusion. Pharmacy consulted to assist with glycemic management in this setting. * S/p cardiac arrest, hypotensive, requiring vasopressor support with epinephrine and phenylephrine (in D5W, 72ml/hr). Patient intubated prior to transport to ICU, however extubated earlier this afternoon after arriving to ICU. Receiving antibiotics. * Plan to initiate basal/bolus insulin. Novolog ~ AdjBW/stress 2 q4h while NPO. * Lantus scale tonight based upon HS BSG. PLAN FOR INPATIENT GLYCEMIC CONTROL: * Hold outpatient oral diabetes medications * Basal insulin * Lantus scale HS - 20-30 units HS based upon BSG value * Bolus insulin * NovoLog per scale ACHS or Q4hrs while NPO * Goal Range: Low 110 mg/dL - High 140 mg/dL * Correction Factor: 15 mg/dL/unit * Nutritional / Prandial insulin per carb ratio of 1 unit per 4 grams CHO consumed
--- NOTE | 2021-11-09 10:13 | Hospitalist Progress Note ---
Date of Service November 09, 2021 Assessment & Plan (1) Cardiopulmonary arrest with successful resuscitation: Plan: 65 year old male w/ PMH T2DM, PAD, osteomyelitis of the left great toe s/p amputation of L great toe admitted to ICU for cardiopulmonary arrest during PICC line placement requiring CPR with eventual ROSC. Osteomyelitis of left great toe Status post amputation on 08/08/2021, subsequent cultures in 09/2021 and 10/2021 growing Enterococcus, MRSA, Corynebacterium Has been receiving ampicillin 2g IV q6h since admission - Of note, pt apparently scheduled to receive 6 weeks of ampicillin through mid- line per ID provider in [place]. Due to most recent wound culture growing MRSA, he may need PICC if vancomycin indicated -Contacted ID provider who deferred choice of abx to primary service - Given pt's positive MRSA wound culture from 10/2021 along with risk factors and recent cardiac arrest, will pursue MRSA treatment -Ampicillin shifted to daptomycin on 11/08 -Continue daptomycin, anticipated 6 week antibiotic course (conclude on 12/17) Cardiopulmonary arrest s/p CPR with ROSC Arrest on 11/05 occurring during PICC line placement, unclear etiology possible transient arrhythmia versus vagal episode Downgraded from ICU on 11/06 after successful extubation and weaning off vasopressors Echocardiogram- limited due to technically difficult study- EF 70+ %, grade 1 diastolic dysfunction Cardiology consulted -Catheterization 11/05- mid LAD + mid RCA obstructive CAD with 70% stenosis noted -Recommend medical management of CAD- daily aspirin, increase atorvastatin to 40 mg daily -Troponin 1180 after catheterization downtrending to 940, unlikely to indicate ACS -No further cardiology evaluation indicated - Most recent EKG unremarkable 11/07 - Continue telemetry monitoring Acute respiratory failure Required intubation during cardiopulmonary arrest, extubated later same day on 11/05 - CT Chest 11/05- no pulmonary emboli, +airspace opacities b/l upper lobes which may indicate atelectasis, multiple acute anterior rib fractures - Currently saturating well on RA - Supportive care- incentive spirometry, flutter valve, albuterol PRN LEONARDO on CKD3 Baseline creatinine 1.8-2.1, admission Cr 2.3 to 2.85 Creatinine continuing to improve, 2.04 today Encourage oral hydration, consider gentle fluid repletion if Cr worsens - Trend BMP Anemia -Hgb 9.6 to 9.2 today -FOBT pending -Trend CBC DM2 Holding home regimen Lantus, ISS DVT prophylaxis: Lovenox 40 mg BID Diet: carb consistent, heart healthy Dispo: Medical with telemetry CODE STATUS: Full (2) Hypertension: (3) Dyslipidemia: (4) Depression: (5) Diabetes mellitus with diabetic polyneuropathy: (6) CKD (chronic kidney disease): (7) PAD (peripheral artery disease): (8) Osteomyelitis of great toe of left foot: Admission and Anticipated Discharge Date Admission Date: November 05, 2021 Supervising Physician Co-Signing Physician Notes I personally examined the patient and verified all guevara points of history and exam, discussed case, and agree with decision making with Dr Toure. Feeling better. updated family.. Vitals noted, in general he is awake and alert pleasant no distress. HEENT normocephalic atraumatic mucous membranes moist. Breathing unlabored no accessory muscle use good effort.Neuro without focal deficits. Skin without pallor or icterus Cardiopulmonary arreststatus post ROSCdoing better. Showing improvement. Continue supportive care. PT/OT eval and treatas of today probably would need rehab Foot infectioncontinue antibiotics (given recent culture changed to MRSA coverage). PICC in, continue Dapto Otherwise as above, await PT/OT input. Subjective Overnight, pt complained of chest soreness. Received Tylenol, lidocaine patch and tramadol. On evaluation, pt reports feeling ok. Chest soreness slowly improving, denies dyspnea. Still endorsing productive cough but it is mildly improving. Tolerating full liquids well. Review of Systems Review of Systems: Per subjective Physical Exam Constitutional: WD/WN, vitals as above Eyes: PERRL ENMT: Nasal cannula in place Respiratory: Less coarse lung sounds, no wheezes, no increased work of breathing Cardiovascular: RRR, no murmur, no edema Chest (Breasts): Additional Comments: Less tender to palpation over sternum Gastrointestinal (Abdomen): normal bowel sounds, soft, nontender, no hepatosplenomegaly Results & Data Results & Data ([facility]) Vital Signs (Past 12 Hours) Vital Signs Temp Pulse Pulse Resp BP BP Pulse Ox 11/09/21 07:59 68 11/09/21 07:52 36.8 C 71 20 172/73 H 94 11/09/21 03:32 36.7 C 78 20 165/85 H 92 11/09/21 00:00 79 11/08/21 23:19 37.1 C 81 18 120/65 90 11/08/21 22:15 11/08/21 22:14 36.8 C 75 20 159/77 H 93 O2 Del Method O2 Flow Rate 11/09/21 07:59 11/09/21 07:52 Room Air 11/09/21 03:32 Room Air 11/09/21 00:00 11/08/21 23:19 Nasal Cannula 0.5 11/08/21 22:15 Nasal Cannula 2 11/08/21 22:14 Nasal Cannula 2 Resident Activity Tracking Resident Involvement: Resident Care Provided Care Provided: Adult Hospital Medicine (1) Diabetes mellitus with diabetic polyneuropathy 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
[2021-11-09] MEDS ORDERED: ALBUTEROL HFA 8 GM INHALER INH PRN (12:02)
[2021-11-09] MEDS: DAPTOmycin 675 MG in SYRINGE 0 ML IV SCH (12:45)
[2021-11-09] MEDS: ENOXAPARIN INJ 40 MG/0.4 ML SYR SQ SCH ×2 (12:45→23:47)
--- NOTE | 2021-11-09 19:11 | Billing Data ---
Date of Service November 09, 2021 Coding Level of Care Code 29033 Subseq Hosp Care Lvl 3
[2021-11-09] MEDS: TAMSULOSIN HCL 0.4 MG CAP PO SCH (20:36)
[2021-11-09] MEDS: LANTUS PER UNIT CHARGE SQ SCH (20:44)
[2021-11-10 07:31] LABS: Basophils # (auto) 0.03 K/uL (0-0.2); Basophils % (auto) 0.4 %; Eosinophils # (auto) 0.09 K/uL (0-0.50); Eosinophils % (auto) 1.2 %; Hematocrit (blood only) 29.7 % (40.1-51.0); Hemoglobin 9.7 g/dl (14.0-18.0); Immature Granulocytes # (auto) 0.17 K/uL (0.00-0.02); Immature Granulocytes % (auto) 2.4 %; Lymphocytes # (auto) 0.78 K/uL (1.2-3.4); Lymphocytes % (auto) 10.8 %; Mean Corpuscular Hemoglobin 27.2 pg (25.0-34.0); Mean Corpuscular Hgb Conc 32.7 g/dL (32.0-36.0); Mean Corpuscular Volume 83.4 fL (80.0-100.0); Mean Platelet Volume 9.4 fL (9.4-12.4); Monocytes # (auto) 1.13 K/uL (0.24-0.82); Monocytes % (auto) 15.6 %; Neutrophils # (auto) 5.03 K/uL (1.4-6.5); Neutrophils % (auto) 69.6 %; Platelet Count 154 K/uL (130-400); RDW Coefficient of Variation 13.8 % (11.5-14.5); RDW Standard Deviation 42.4 fL (36.4-46.3); Red Blood Count 3.56 M/uL (4.63-6.08); White Blood Count 7.23 K/ul (4.8-10.8)
[2021-11-10] MEDS: INSULIN ASPART PER UNIT SC SCH ×4 (07:45→20:55)
[2021-11-10 08:04] LABS: BUN Creatinine Ratio 23.2 (10-20); Calcium 8.6 mg/dl (8.5-10.1); Creatinine Clr Calc Pharmacy 59.7 ml/min; Est GFR (African American) 43.3 ml/min; Est GFR (Non-African American) 37.4 ml/min
[2021-11-10] MEDS: LIDOCAINE 5% 1 PATCH TD SCH (08:26)
[2021-11-10] MEDS: DULoxetine HCL 20 MG CAP PO SCH ×2 (08:26→20:56)
[2021-11-10] MEDS: PANTOprazole 40 MG TAB PO SCH ×2 (08:26→20:56)
[2021-11-10] MEDS: ASPIRIN 81 MG CHEW PO SCH (08:26)
[2021-11-10] MEDS: amLODIPine BESYLATE 5 MG TAB PO SCH (08:26)
--- NOTE | 2021-11-10 09:15 | Hospitalist Progress Note ---
Date of Service November 10, 2021 Assessment & Plan (1) Cardiopulmonary arrest with successful resuscitation: Plan: 65 year old male w/ PMH T2DM, PAD, osteomyelitis of the left great toe s/p amputation of L great toe admitted to ICU for cardiopulmonary arrest during PICC line placement requiring CPR with eventual ROSC. Osteomyelitis of left great toe Status post amputation on 08/08/2021, subsequent cultures in 09/2021 and 10/2021 growing Enterococcus, MRSA, Corynebacterium Has been receiving ampicillin 2g IV q6h since admission - Of note, pt apparently scheduled to receive 6 weeks of ampicillin through mid- line per ID provider in [place]. Due to most recent wound culture growing MRSA, he may need PICC if vancomycin indicated -Contacted ID provider who deferred choice of abx to primary service - Given pt's positive MRSA wound culture from 10/2021 along with risk factors and recent cardiac arrest, will pursue MRSA treatment -Ampicillin shifted to daptomycin on 11/08 -Continue daptomycin, anticipated 6 week antibiotic course (conclude on 12/17) -PT/OT recommending inpatient rehab vs home with stair accommodations, will encourage pt to pursue rehab given recent cardiac arrest and morbid obesity Cardiopulmonary arrest s/p CPR with ROSC Arrest on 11/05 occurring during PICC line placement, unclear etiology possible transient arrhythmia versus vagal episode Downgraded from ICU on 11/06 after successful extubation and weaning off vasopressors Echocardiogram- limited due to technically difficult study- EF 70+ %, grade 1 diastolic dysfunction Cardiology consulted -Catheterization 11/05- mid LAD + mid RCA obstructive CAD with 70% stenosis noted -Recommend medical management of CAD- daily aspirin, increase atorvastatin to 40 mg daily -Troponin 1180 after catheterization downtrending to 940, unlikely to indicate ACS -No further cardiology evaluation indicated - Most recent EKG unremarkable 11/07 - Continue telemetry monitoring Acute respiratory failure Required intubation during cardiopulmonary arrest, extubated later same day on 11/05 - CT Chest 11/05- no pulmonary emboli, +airspace opacities b/l upper lobes which may indicate atelectasis, multiple acute anterior rib fractures - Currently saturating well on RA - Supportive care- incentive spirometry, flutter valve, albuterol PRN, encourage ambulation Hypertension -SBPs 150s-180s/70s-80s -No known BP medications at home -Initiated amlodipine 5 mg daily on 11/09 -Given SBP remaining elevated, increase amlodipine to 10 mg daily LEONARDO on CKD3 Baseline creatinine 1.8-2.1, admission Cr 2.3 to 2.85 Creatinine continuing to improve, 1.85 today Encourage oral hydration, consider gentle fluid repletion if Cr worsens - Trend BMP DM2 Holding home regimen Glenn, ANDI DVT prophylaxis: Lovenox 40 mg BID Diet: carb consistent, heart healthy Dispo: Downgraded to medical today CODE STATUS: Full (2) Hypertension: (3) Dyslipidemia: (4) Depression: (5) Diabetes mellitus with diabetic polyneuropathy: (6) CKD (chronic kidney disease): (7) PAD (peripheral artery disease): (8) Osteomyelitis of great toe of left foot: Admission and Anticipated Discharge Date Admission Date: November 05, 2021 Supervising Physician Co-Signing Physician Notes I personally examined the patient and verified all guevara points of history and exam, discussed case, and agree with decision making with Dr Toure. Feeling better. Okay with the idea of rehab Vitals noted, in general he is awake and alert pleasant no distress. HEENT normocephalic atraumatic mucous membranes moist. Breathing unlabored no accessory muscle use good effort.Neuro without focal deficits. Skin without pallor or icterus Cardiopulmonary arreststatus post ROSCdoing better. Showing improvement. Continue supportive care. PT/OT eval and treatworking on rehab placement Foot infectioncontinue antibiotics (given recent culture changed to MRSA coverage with daptomycin). PICC in, continue Dapto Otherwise as above, for rehab once available Subjective No acute events overnight. On evaluation, pt reports feeling ok overall. Chest soreness slowly but steadily improving, denies dyspnea. Still endorsing productive cough but it is also slowly improving. Eating solids without issue and sitting up in bed without difficulty or distress. Review of Systems Review of Systems: Per subjective Physical Exam Constitutional: WD/WN, vitals as above Eyes: PERRL Respiratory: Less coarse lung sounds, no wheezes or crackles, no increased work of breathing Cardiovascular: RRR, no murmur, no edema Chest (Breasts): Additional Comments: Less tender to palpation over sternum Gastrointestinal (Abdomen): normal bowel sounds, soft, nontender, no hepatosplenomegaly Results & Data Results & Data ([facility]) Vital Signs (Past 12 Hours) Vital Signs Temp Pulse Pulse Resp BP Pulse Ox O2 Del Method 11/10/21 08:20 36.5 C 69 17 181/82 H 93 Room Air 11/10/21 07:09 69 11/10/21 03:00 36.8 C 72 21 152/80 H 90 Room Air 11/09/21 22:25 76 11/09/21 23:00 37.1 C 78 20 147/77 H 94 Room Air Resident Activity Tracking Resident Involvement: Resident Care Provided Care Provided: Adult Hospital Medicine (1) Diabetes mellitus with diabetic polyneuropathy 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
--- NOTE | 2021-11-10 11:10 | Orthopedic Consultation ---
Date of Consultation November 10, 2021 Assessment & Plan (1) Status post amputation of left great toe: Patient was evaluated in his room. Foot was redressed. He would benefit from wound care nursing evaluation. Consult was placed. I concur with the switch to daptomycin IV. Patient may be weightbearing on the foot using his heel and midfoot. We will continue to follow him while he is admitted. Follow-up in the office for his usual customary care once he is discharged. History of Present Illness Reason for Consultation: Left foot wound Attending Physician: Jorge Simon DO History of Present Illness This 65-year-old male has a known great toe amputation wound and has been followed in the office for several months. 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 Patient was previously obtaining a PICC line and went into cardiac arrest. He was successfully resuscitated. PICC line was being placed for IV antibiotics due to known MRSA infection of his foot. Initial plan was for him to be on vancomycin. Record review shows infectious disease has been consulted. Patient is now be on daptomycin. Patient currently has no complaints this morning. Allergies Allergy/AdvReac Type Severity Reaction Status Date / Time No Known Allergies Allergy Verified 11/05/21 09:16 Home Medications Medication Instructions Recorded Confirmed Type lactobacillus combination no.8 3 3,000 mmu cells PO BID 06/12/20 11/05/21 History billion cell capsule (Adult Probiotic) aspirin 81 mg chewable tablet 81 mg PO QAM 07/26/20 11/05/21 History blood-glucose meter (Accu-Chek 08/23/20 11/02/21 History Guide Glucose Meter) lancets (Accu-Chek Fastclix Lancet 08/23/20 11/02/21 History Drum) furosemide 20 mg tablet 20 mg PO QAM #30 tabs 12/04/20 11/05/21 Rx FreeStyle Remigio 2 [place] (flash #1 ea 01/24/21 11/02/21 Rx glucose scanning reader) FreeStyle Remigio 2 Sensor (flash #7 ea 01/24/21 11/02/21 Rx glucose sensor) pantoprazole 40 mg tablet,delayed 40 mg PO BID #60 tabs 04/05/21 11/05/21 Rx release BD Ultra-Fine Mini Pen Needle 31 #400 ea 06/07/21 11/02/21 Rx gauge x 3/16" (pen needle, diabetic) empagliflozin 25 mg tablet 25 mg PO DAILY #90 tabs 07/20/21 11/05/21 Rx ergocalciferol (vitamin D2) 1,250 1,250 mcg PO WK 08/07/21 11/05/21 History mcg (50,000 unit) capsule tamsulosin 0.4 mg capsule 0.4 mg PO HS 08/07/21 11/05/21 History metformin 500 mg tablet 500 mg PO BID 90 days #180 tabs 08/10/21 11/05/21 Rx sodium zirconium cyclosilicate 5 5 g PO DAILY #30 ea 09/11/21 11/05/21 Rx gram oral powder packet (Lokelma) blood sugar diagnostic (Accu-Chek #50 ea 10/01/21 11/02/21 Rx Guide test strips) atorvastatin 10 mg tablet 10 mg PO QPM #30 tabs 10/10/21 11/05/21 Rx duloxetine 20 mg capsule,delayed 20 mg PO BID #180 caps 10/10/21 11/05/21 Rx release (Cymbalta) insulin glargine 100 unit/mL (3 65 unit (0.65 mL) subcut QAM 90 10/16/21 11/05/21 Rx mL) subcutaneous pen (Basaglar days #60 mL KwikPen U-100 Insulin) insulin aspart U-100 100 unit/mL 80 unit subcut DAILY 10/23/21 11/05/21 History (3 mL) subcutaneous pen (Novolog Flexpen U-100 Insulin aspart) Patient History Medical History Acquired hallux rigidus of right foot BPH loc w urin obs/LUTS (Unknown) Constipation Diabetes mellitus, type 2 IDDM Disc degeneration, lumbar Diverticulosis Eczema Fatigue GERD (gastroesophageal reflux disease) OCCASIONAL Internal hemorrhoids Morbid obesity Necrotizing fasciitis of ankle and foot S/P IV ANTIBIOTICS/PICC LINE/WOUND VAC DURING 02/2018 [facility] Osteomyelitis Pancreatitis ~ Psoriasis Sleep apnea NO DEVICE S/P UPPP Tubular adenoma of colon Surgical History History of adenoidectomy History of cataract surgery bilt History of cataract surgery History of cholecystectomy History of colonoscopy Colonoscopy 01/21/[address] Garg. History of incision and drainage Hx of I&D of mendel-rectal abscess History of tonsillectomy History of tooth extraction S/P foot surgery, left Status post uvulopalatopharyngoplasty Family History Mother Family history of diabetes mellitus Father History of alcoholism History of liver cancer Sister Cancer Denies family history of Ovarian cancer Prostate cancer Crohn's disease Breast cancer Colorectal cancer Social History Smoking Status: Former smoker Second Hand Exposure: No; Do You Dip or Chew Tobacco: No; Tobacco Cessation Education Requested by Patient: No Hx Alcohol Use: No Hx Substance Use: No Preferred Language: Japanese Communication Ability: Effective Visual Impairment: No Limitations Hearing Ability: Normal Senior Design Engineer Required: No Beliefs That Will Affect Care: None marital status: Current Living Situation: Alone Current Living Situation Comment: Lives with and dog current occupational status: employed 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 Other Information That Helps Us Care for You: No Feels Safe at Home: Yes Safety Concerns: Feels Safe At This Time Childhood Exposure to Second-Hand Smoke: Yes Diet Comment: "tries to feed me right, but sometimes it doesn't always happen" during the past year weight has: remained stable Physical Activity Frequency: Does not Exercise Seatbelt Use: never Assistive Devices: None Physical Exam Physical Exam: General: Well-developed, well-nourished, morbidly obese elderly white male, who is sleeping upon entry. Easily awakens. No acute distress. Skin: Warm and dry with fair turgor. He has a bandage on his left foot. Removal reveals amputation of the great toe. There is a granulating wound present that is moist. No active drainage. Nothing is expressible. Stable base. No bone is exposed. In reviewing his office records, the wound has certainly looked worse in the past. Most recent office images show a dry crusting scab over the wound. Currently it does not look as well as his last images. No lymphangitic streaking. No notable edema or erythema. Musculoskeletal: Patient has no discomfort with palpation over the foot, including around the open wound. There is intact motor function of the ankle. Neurologic: Patient is absent of sensation across the toes and forefoot. Peripheral pulses are 2+. Capillary refill is normal throughout the foot. Results & Data ([facility]) Vital Signs (Past 12 Hours) Vital Signs Temp Pulse Pulse Resp BP Pulse Ox O2 Del Method 11/10/21 08:20 36.5 C 69 17 181/82 H 93 Room Air 11/10/21 07:09 69 11/10/21 03:00 36.8 C 72 21 152/80 H 90 Room Air Laboratory Results CBC obtained today reveals a white count of 7.23. Hemoglobin 9.7 and hematocrit 29.7. Platelets 154,000.
[2021-11-10] MEDS: DAPTOmycin 675 MG in SYRINGE 0 ML IV SCH (12:54)
[2021-11-10] MEDS: ENOXAPARIN INJ 40 MG/0.4 ML SYR SQ SCH ×2 (12:54→23:18)
--- NOTE | 2021-11-10 19:40 | Billing Data ---
Date of Service November 10, 2021 Coding Level of Care Code 68697 Subseq Hosp Care Lvl 3
[2021-11-10] MEDS: LANTUS PER UNIT CHARGE SQ SCH (20:54)
[2021-11-10] MEDS: TAMSULOSIN HCL 0.4 MG CAP PO SCH (20:56)
[2021-11-11 07:24] LABS: Basophils # (auto) 0.05 K/uL (0-0.2); Basophils % (auto) 0.6 %; Eosinophils # (auto) 0.26 K/uL (0-0.50); Eosinophils % (auto) 3.1 %; Hematocrit (blood only) 30.5 % (40.1-51.0); Hemoglobin 9.9 g/dl (14.0-18.0); Immature Granulocytes # (auto) 0.31 K/uL (0.00-0.02); Immature Granulocytes % (auto) 3.7 %; Lymphocytes # (auto) 0.99 K/uL (1.2-3.4); Lymphocytes % (auto) 11.8 %; Mean Corpuscular Hemoglobin 26.5 pg (25.0-34.0); Mean Corpuscular Hgb Conc 32.5 g/dL (32.0-36.0); Mean Corpuscular Volume 81.8 fL (80.0-100.0); Mean Platelet Volume 8.9 fL (9.4-12.4); Monocytes # (auto) 1.26 K/uL (0.24-0.82); Neutrophils # (auto) 5.52 K/uL (1.4-6.5); Neutrophils % (auto) 65.8 %; Platelet Count 162 K/uL (130-400); RDW Coefficient of Variation 13.7 % (11.5-14.5); RDW Standard Deviation 40.7 fL (36.4-46.3); Red Blood Count 3.73 M/uL (4.63-6.08); White Blood Count 8.39 K/ul (4.8-10.8)
[2021-11-11 08:00] LABS: BUN Creatinine Ratio 25.5 (10-20); Calcium 8.5 mg/dl (8.5-10.1); Creatinine Clr Calc Pharmacy 68.6 ml/min; Est GFR (African American) 51.2 ml/min; Est GFR (Non-African American) 44.2 ml/min
[2021-11-11] MEDS: DULoxetine HCL 20 MG CAP PO SCH ×2 (08:38→20:37)
[2021-11-11] MEDS: PANTOprazole 40 MG TAB PO SCH ×2 (08:38→20:37)
[2021-11-11] MEDS: LIDOCAINE 5% 1 PATCH TD SCH (08:38)
[2021-11-11] MEDS: amLODIPine BESYLATE 5 MG TAB PO SCH (08:38)
[2021-11-11] MEDS: ASPIRIN 81 MG CHEW PO SCH (08:38)
[2021-11-11] MEDS: INSULIN ASPART PER UNIT SC SCH ×4 (08:39→21:10)
--- NOTE | 2021-11-11 10:02 | Hospitalist Progress Note ---
Date of Service November 11, 2021 Assessment & Plan (1) Cardiopulmonary arrest with successful resuscitation: Plan: 65 year old male w/ PMH T2DM, PAD, osteomyelitis of the left great toe s/p amputation of L great toe admitted to ICU for cardiopulmonary arrest during PICC line placement requiring CPR with eventual ROSC. Osteomyelitis of left great toe Status post amputation on 08/08/2021, subsequent cultures in 09/2021 and 10/2021 growing Enterococcus, MRSA, Corynebacterium Has been receiving ampicillin 2g IV q6h since admission - Of note, pt apparently scheduled to receive 6 weeks of ampicillin through mid- line per ID provider in [place]. Due to most recent wound culture growing MRSA, he may need PICC if vancomycin indicated -Contacted ID provider who deferred choice of abx to primary service - Given pt's positive MRSA wound culture from 10/2021 along with risk factors and recent cardiac arrest, will pursue MRSA treatment -Ampicillin shifted to daptomycin on 11/08 -Continue daptomycin, anticipated 6 week antibiotic course (conclude on 12/17) -PT/OT recommending inpatient rehab, awaiting placement Cardiopulmonary arrest s/p CPR with ROSC Arrest on 11/05 occurring during PICC line placement, unclear etiology possible transient arrhythmia versus vagal episode Downgraded from ICU on 11/06 after successful extubation and weaning off vasopressors Echocardiogram- limited due to technically difficult study- EF 70+ %, grade 1 diastolic dysfunction Cardiology consulted -Catheterization 11/05- mid LAD + mid RCA obstructive CAD with 70% stenosis noted -Recommend medical management of CAD- daily aspirin, increase atorvastatin to 40 mg daily -Troponin 1180 after catheterization downtrending to 940, unlikely to indicate ACS -No further cardiology evaluation indicated - Most recent EKG unremarkable 11/07 - Scheduled Tylenol for MSK chest pain from compressions Acute respiratory failure Required intubation during cardiopulmonary arrest, extubated later same day on 11/05 - CT Chest 11/05- no pulmonary emboli, +airspace opacities b/l upper lobes which may indicate atelectasis, multiple acute anterior rib fractures - Currently saturating well on RA - Supportive care- incentive spirometry, flutter valve, albuterol PRN, encourage ambulation Hypertension -SBPs 150s-180s/70s-80s -No known BP medications at home -Continue amlodipine 10 mg, will continue on discharge LEONARDO on CKD3 Baseline creatinine 1.8-2.1, admission Cr 2.3 to 2.85 Creatinine continuing to improve, 1.61 today Resolved with return to baseline Cr - Trend BMP DM2 Holding home regimen Lantus, ISS DVT prophylaxis: Lovenox 40 mg BID Diet: carb consistent, heart healthy Dispo: Medical/surgical, awaiting rehab placement CODE STATUS: Full (2) Hypertension: (3) Dyslipidemia: (4) Depression: (5) Diabetes mellitus with diabetic polyneuropathy: (6) CKD (chronic kidney disease): (7) PAD (peripheral artery disease): (8) Osteomyelitis of great toe of left foot: Admission and Anticipated Discharge Date Admission Date: November 05, 2021 Supervising Physician Co-Signing Physician Notes I personally examined the patient and verified all guevara points of history and exam, discussed case, and agree with decision making with Dr Toure. No new complaints. Waiting on rehab. Vitals noted, in general he is awake and alert pleasant no distress. HEENT normocephalic atraumatic mucous membranes moist. Breathing unlabored no accessory muscle use good effort.Neuro without focal deficits. Skin without pallor or icterus Cardiopulmonary arreststatus post ROSCdoing better. Doing well considering the circumstances. Continue supportive care. PT/OT eval and treatworking on rehab placementstable for transfer if bed available Foot infectioncontinue antibiotics (given recent culture changed to MRSA coverage with daptomycin). PICC in, continue Dapto mycin Otherwise as above, for rehab once available Subjective No acute events overnight. On evaluation, pt reports feeling ok overall. Chest soreness still present but improving, denies dyspnea. Still endorsing productive cough but it is also slowly improving. Eating solids without issue and sitting up in bed without difficulty or distress. Review of Systems Review of Systems: Per subjective Physical Exam Constitutional: WD/WN, vitals as above Eyes: PERRL Respiratory: Less coarse lung sounds, no wheezes or crackles, no increased work of breathing Cardiovascular: RRR, no murmur, no edema Chest (Breasts): Additional Comments: Less tender to palpation over sternum Gastrointestinal (Abdomen): normal bowel sounds, soft, nontender, no hepatosplenomegaly Results & Data Results & Data ([facility]) Vital Signs (Past 12 Hours) Vital Signs Temp Pulse Resp BP Pulse Ox O2 Del Method 11/11/21 07:45 Room Air 11/11/21 07:49 36.6 C 73 16 170/76 H 93 11/10/21 23:50 36.6 C 70 18 137/64 92 Room Air (1) Diabetes mellitus with diabetic polyneuropathy Diabetes mellitus assisted insulin use: unspecified assisted insulin 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
[2021-11-11] MEDS: ENOXAPARIN INJ 40 MG/0.4 ML SYR SQ SCH ×2 (11:06→23:01)
[2021-11-11] MEDS: ACETAMINOPHEN 500 MG TAB PO SCH ×2 (11:06→18:01)
[2021-11-11] MEDS: DAPTOmycin 675 MG in SYRINGE 0 ML IV SCH (11:06)
--- NOTE | 2021-11-11 14:41 | Pharmacy Report ---
Pharmacy Glycemic Short Note 2 - Date of Service November 11, 2021 - Glycemic Short BSG Results (Last 24 hours): 11/10/21 11/10/21 11/11/21 17:10 20:28 06:05 Glucose 118 H POC Glucose 155 H 172 H 11/11/21 11/11/21 08:10 12:08 Glucose POC Glucose 137 H 126 H OUTPATIENT ANTIDIABETIC REGIMEN: * Lantus 70 units SC AM * Novolog SC 25 units @ breakfast, 20 units @ lunch, and 15 units @ dinner * Jardiance 25 mg PO daily * Metformin 500 mg PO BID * HbA1C = 7.8% (08/16/21) ASSESSMENT: 11/11: * Mr. Alvarado received a total of 42 units of insulin yesterday (20 units basal + 22 units bolus). BSGs controlled: 576-310-569-172 mg/dL. * Fasting BSG controlled at 137 mg/dL this AM. No change to basal scale. * Carb ratio was loosened yesterday. Patient tolerating well so no change today. 11/09: * Patient received total of 43 units of insulin yesterday, of which 25 units were basal insulin * Fasting BSG 116 mg/dL, then an hour later 173 mg/dL? Plan to continue scale for basal insulin at bedtime - may use 20-30 units of basal per scale as PO intake appear to be improving. Patient typically on much higher doses of insulin at home. 11/08: * BSGs well controlled over last 24 hrs [phone] mg/dL * Fasting this morning 97 mg/dL with 36 units of basal on board; held this morning per scale; will adjust tonight's scale to give ~25% reduction if within goal range * Continue current novolog parameters, watch closely for need to loosen 11/07: * BSGs well controlled over last 24 hrs * Fasting BSG 142 this AM with 30 units basal on board and following receipt of 4 units correctional insulin over night. Diet appears to have been advanced to clears. PO intake still appears poor however. Will continue to dose Lantus BID with a small increase in dosing scale. * Continue Novolog CF/CR for now as it is difficult to assess given poor PO intake. Following post-prandial trends. PLAN FOR INPATIENT GLYCEMIC CONTROL: * Hold outpatient oral diabetes medications * Basal insulin * Lantus 15-25 units SC HS (see eMAR for more details) * Bolus insulin * NovoLog per scale ACHS or Q4hrs while NPO * Goal Range: Low 110 mg/dL - High 140 mg/dL * Correction Factor: 15 mg/dL/unit * Nutritional / Prandial insulin per carb ratio of 1 unit per 5 grams CHO consumed
--- NOTE | 2021-11-11 18:00 | Billing Data ---
Date of Service November 11, 2021 Coding Level of Care Code 75143 Subseq Hosp Care Lvl 2
[2021-11-11] MEDS: TAMSULOSIN HCL 0.4 MG CAP PO SCH (20:37)
[2021-11-11] MEDS: LANTUS PER UNIT CHARGE SQ SCH (21:11)
[2021-11-11] MEDS: guaiFENesin 600 MG TABCR PO SCH (23:01)
[2021-11-11] MEDS: MELATONIN 3 MG TAB PO PRN (23:01)
[2021-11-12] MEDS: ACETAMINOPHEN 500 MG TAB PO SCH ×3 (01:46→17:30)
[2021-11-12 07:17] LABS: Hematocrit (blood only) 31.3 % (40.1-51.0); Hemoglobin 10.4 g/dl (14.0-18.0); Mean Corpuscular Hemoglobin 27.2 pg (25.0-34.0); Mean Corpuscular Hgb Conc 33.2 g/dL (32.0-36.0); Mean Corpuscular Volume 81.7 fL (80.0-100.0); Mean Platelet Volume 8.5 fL (9.4-12.4); Platelet Count 165 K/uL (130-400); RDW Standard Deviation 41.4 fL (36.4-46.3); Red Blood Count 3.83 M/uL (4.63-6.08)
[2021-11-12 07:40] LABS: BUN Creatinine Ratio 23.2 (10-20); Calcium 8.5 mg/dl (8.5-10.1); Creatinine Clr Calc Pharmacy 59.7 ml/min; Est GFR (African American) 43.3 ml/min; Est GFR (Non-African American) 37.4 ml/min; Potassium 4.2 mmol/L (3.5-5.1)
[2021-11-12 07:43] LABS: Basophils # (auto) 0.05 K/uL (0-0.2); Basophils % (auto) 0.6 %; Eosinophils # (auto) 0.43 K/uL (0-0.50); Eosinophils % (auto) 4.9 %; Immature Granulocytes # (auto) 0.36 K/uL (0.00-0.02); Immature Granulocytes % (auto) 4.1 %; Lymphocytes # (auto) 1.92 K/uL (1.2-3.4); Lymphocytes % (auto) 21.8 %; Monocytes # (auto) 1.05 K/uL (0.24-0.82); Monocytes % (auto) 11.9 %; Neutrophils # (auto) 4.99 K/uL (1.4-6.5); Neutrophils % (auto) 56.7 %
[2021-11-12] MEDS: guaiFENesin 600 MG TABCR PO SCH ×2 (08:18→20:41)
[2021-11-12] MEDS: PANTOprazole 40 MG TAB PO SCH ×2 (08:18→20:41)
[2021-11-12] MEDS: DULoxetine HCL 20 MG CAP PO SCH ×2 (08:18→20:41)
[2021-11-12] MEDS: LIDOCAINE 5% 1 PATCH TD SCH (08:18)
[2021-11-12] MEDS: amLODIPine BESYLATE 5 MG TAB PO SCH (08:18)
[2021-11-12] MEDS: INSULIN ASPART PER UNIT SC SCH ×4 (08:21→20:42)
[2021-11-12] MEDS: ASPIRIN 81 MG CHEW PO SCH (08:24)
--- NOTE | 2021-11-12 09:36 | Hospitalist Progress Note ---
Date of Service November 12, 2021 Assessment & Plan (1) Cardiopulmonary arrest with successful resuscitation: Plan: 65 year old male w/ PMH T2DM, PAD, osteomyelitis of the left great toe s/p amputation of L great toe admitted to ICU for cardiopulmonary arrest during PICC line placement requiring CPR with eventual ROSC. Osteomyelitis of left great toe Status post amputation on 08/08/2021, subsequent cultures in 09/2021 and 10/2021 growing Enterococcus, MRSA, Corynebacterium Has been receiving ampicillin 2g IV q6h since admission - Of note, pt apparently scheduled to receive 6 weeks of ampicillin through mid- line per ID provider in [place]. Due to most recent wound culture growing MRSA, he may need PICC if vancomycin indicated -Contacted ID provider who deferred choice of abx to primary service - Given pt's positive MRSA wound culture from 10/2021 along with risk factors and recent cardiac arrest, will pursue MRSA treatment -Ampicillin shifted to daptomycin on 11/08 -Continue daptomycin, anticipated 6 week antibiotic course (conclude on 12/17) -PT/OT recommending inpatient rehab, awaiting placement Cardiopulmonary arrest s/p CPR with ROSC Arrest on 11/05 occurring during PICC line placement, unclear etiology possible transient arrhythmia versus vagal episode Downgraded from ICU on 11/06 after successful extubation and weaning off vasopressors Echocardiogram- limited due to technically difficult study- EF 70+ %, grade 1 diastolic dysfunction Cardiology consulted -Catheterization 11/05- mid LAD + mid RCA obstructive CAD with 70% stenosis noted -Recommend medical management of CAD- daily aspirin, increase atorvastatin to 40 mg daily -Troponin 1180 after catheterization downtrending to 940, unlikely to indicate ACS -No further cardiology evaluation indicated - Most recent EKG unremarkable 11/07 - Scheduled Tylenol for MSK chest pain from compressions Acute respiratory failure Required intubation during cardiopulmonary arrest, extubated later same day on 11/05 - CT Chest 11/05- no pulmonary emboli, +airspace opacities b/l upper lobes which may indicate atelectasis, multiple acute anterior rib fractures - Currently saturating well on RA - Supportive care- incentive spirometry, flutter valve, albuterol PRN, encourage ambulation - CXR ordered today due to persistent cough Hypertension -BP stable at this time -No known BP medications at home -Continue amlodipine 10 mg, will continue on discharge LEONARDO on CKD3 Baseline creatinine 1.8-2.1, admission Cr 2.3 to 2.85 Creatinine continuing to improve, 1.85 today Resolved with return to baseline Cr - Trend BMP DM2 Holding home regimen Lantus, ISS DVT prophylaxis: Lovenox 40 mg BID Diet: carb consistent, heart healthy Dispo: Medical/surgical, awaiting rehab placement CODE STATUS: Full (2) Hypertension: (3) Dyslipidemia: (4) Depression: (5) Diabetes mellitus with diabetic polyneuropathy: (6) CKD (chronic kidney disease): (7) PAD (peripheral artery disease): (8) Osteomyelitis of great toe of left foot: Admission and Anticipated Discharge Date Admission Date: November 05, 2021 Supervising Physician Co-Signing Physician Notes I personally examined the patient and verified all guevara points of history and exam, discussed case, and agree with decision making with Dr Toure. Upon exam, he has no complaints. He notes a continued cough, he thinks is about the same. Nursing commented on it, according to the patient is unchanged. He denies any chest pain or shortness of breath. Exam 128/78, 63, 16, 36.6, 94% room air Semireclined in bed watching TV. No complaints. Lungs are clear throughout with nonlabored respirations. He does have some faint crackles that clear with repeated respiration, suspect atelectasis. Heart regular. Heart sounds distant. Data Hemoglobin 10.4, platelet count 165. Sodium 134, potassium 4.2, BUN 43, creatinine 1.85 Impression Status post cardiac arrest (perhaps vagally mediated) with ROSC Osteomyelitis LEONARDO in setting of CKD, improving Cough Awaiting placement Continue daptomycin Chest x-ray today Subjective No acute events overnight. On evaluation, pt reports feeling ok overall. Chest soreness still present but improving, denies dyspnea. Still endorsing productive cough of yellow mucus but it is also slowly improving. Eating solids without issue and sitting up in bed without difficulty or distress. Review of Systems Review of Systems: Per subjective Physical Exam Physical Exam: General: well-appearing, sitting in chair, obese CV: RRR, normal S1 and S2, no murmurs Resp: largely clear, mildly coarse at bases, no increased work of breathing Abd: soft, nontender, nondistended Respiratory: Less coarse lung sounds, no wheezes or crackles, no increased work of breathing Chest (Breasts): Additional Comments: Less tender to palpation over sternum Results & Data Results & Data ([facility]) Vital Signs (Past 12 Hours) Vital Signs Temp Pulse Pulse Resp BP Pulse Ox O2 Del Method 11/12/21 07:58 36.6 C 63 16 128/78 94 11/11/21 22:59 37 C 65 18 136/76 93 Room Air Resident Activity Tracking Resident Involvement: Resident Care Provided Care Provided: Adult Hospital Medicine (1) Diabetes mellitus with diabetic polyneuropathy Diabetes mellitus halfway insulin use: 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
--- NOTE | 2021-11-12 12:18 | XRay Report ---
XR chest 1V portable HISTORY: 65 years-old Male Persistent cough COMPARISON: CTA chest 11/05/2021, chest radiographs 08/08/2021 TECHNIQUE: AP view of the chest FINDINGS: Cardiac silhouette is enlarged. A right-sided PICC is present with distal tip in the expected locatio n of the inferior SVC. No pneumothorax, pleural effusion, airspace consolidation or overt pulmonary e toshia. There is unchanged mild interstitial coarsening. Bones appear grossly intact. Left shoulder rot ator cuff calcific tendinosis. IMPRESSION: 1. Cardiomegaly without overt pulmonary edema. 2. Right-sided PICC distal tip in the expected location of the inferior SVC. ACT 112: Negative or not required by law. The above report was generated using voice recognition software. It may contain grammatical, syntax o r spelling errors. Electronically signed by: Giovanni Moreno M.D. 11/12/2021 12:16 PM
[2021-11-12] MEDS: DAPTOmycin 675 MG in SYRINGE 0 ML IV SCH (12:29)
[2021-11-12] MEDS: ENOXAPARIN INJ 40 MG/0.4 ML SYR SQ SCH ×2 (12:30→23:35)
[2021-11-12] MEDS: POLYETHYLENE (MIRALAX) 17 GM PACK PO PRN (15:06)
[2021-11-12] MEDS: TAMSULOSIN HCL 0.4 MG CAP PO SCH (20:41)
[2021-11-12] MEDS: LANTUS PER UNIT CHARGE SQ SCH (20:49)
[2021-11-12] MEDS: MELATONIN 3 MG TAB PO PRN (23:36)
[2021-11-13] MEDS: ACETAMINOPHEN 500 MG TAB PO SCH ×3 (00:56→17:30)
[2021-11-13 06:47] LABS: Hematocrit (blood only) 30.6 % (40.1-51.0); Hemoglobin 9.9 g/dl (14.0-18.0); Mean Corpuscular Hgb Conc 32.4 g/dL (32.0-36.0); Mean Corpuscular Volume 83.4 fL (80.0-100.0); Mean Platelet Volume 8.8 fL (9.4-12.4); Platelet Count 196 K/uL (130-400); RDW Coefficient of Variation 13.7 % (11.5-14.5); RDW Standard Deviation 41.6 fL (36.4-46.3); Red Blood Count 3.67 M/uL (4.63-6.08); White Blood Count 10.25 K/ul (4.8-10.8)
--- NOTE | 2021-11-13 07:02 | Hospitalist Progress Note ---
Date of Service November 13, 2021 Assessment & Plan (1) Cardiopulmonary arrest with successful resuscitation: Plan: 65 year old male w/ PMH T2DM, PAD, osteomyelitis of the left great toe s/p amputation of L great toe admitted to ICU for cardiopulmonary arrest during PICC line placement requiring CPR with eventual ROSC. Osteomyelitis of left great toe Status post amputation on 08/08/2021, subsequent cultures in 09/2021 and 10/2021 growing Enterococcus, MRSA, Corynebacterium Has been receiving ampicillin 2g IV q6h since admission, discontinued 11/08 - Of note, pt apparently scheduled to receive 6 weeks of ampicillin through mid- line per ID provider in [place]. Due to most recent wound culture growing MRSA, he may need PICC if vancomycin indicated -Contacted ID provider who deferred choice of abx to primary service - Given pt's positive MRSA wound culture from 10/2021 along with risk factors and recent cardiac arrest, will pursue MRSA treatment -Ampicillin shifted to daptomycin on 11/08 -Continue daptomycin, anticipated 6 week antibiotic course (conclude on 12/17) -Wound care following, wound improving -PT/OT recommending inpatient rehab, awaiting placement Cardiopulmonary arrest s/p CPR with ROSC Arrest on 11/05 occurring during PICC line placement, unclear etiology possible transient arrhythmia versus vagal episode Downgraded from ICU on 11/06 after successful extubation and weaning off vasopressors Echocardiogram- limited due to technically difficult study- EF 70+ %, grade 1 diastolic dysfunction Cardiology consulted -Catheterization 11/05- mid LAD + mid RCA obstructive CAD with 70% stenosis noted -Recommend medical management of CAD- daily aspirin, increase atorvastatin to 40 mg daily -Troponin 1180 after catheterization downtrending to 940, unlikely to indicate ACS -No further cardiology evaluation indicated - Most recent EKG unremarkable 11/07 - Scheduled Tylenol for MSK chest pain from compressions Acute respiratory failure Required intubation during cardiopulmonary arrest, extubated later same day on 11/05 - CT Chest 11/05- no pulmonary emboli, +airspace opacities b/l upper lobes which may indicate atelectasis, multiple acute anterior rib fractures - CXR 11/12- cardiomegaly without overt pulmonary edema - Supportive care- incentive spirometry, flutter valve, albuterol PRN, encourage ambulation - Currently saturating well on RA Hypertension -BP stable at this time -No known BP medications at home -Continue amlodipine 10 mg, will continue on discharge LEONARDO on CKD3 Baseline creatinine 1.8-2.1, admission Cr 2.3 to 2.85 Creatinine at baseline, 1.83 today - Trend BMP DM2 Holding home regimen Glenn, ANDI DVT prophylaxis: Lovenox 40 mg BID Diet: carb consistent, heart healthy Dispo: Medical/surgical, awaiting rehab placement CODE STATUS: Full (2) Hypertension: (3) Dyslipidemia: (4) Depression: (5) Diabetes mellitus with diabetic polyneuropathy: (6) CKD (chronic kidney disease): (7) PAD (peripheral artery disease): (8) Osteomyelitis of great toe of left foot: Admission and Anticipated Discharge Date Admission Date: November 05, 2021 Supervising Physician Co-Signing Physician Notes I also saw the patient with the resident physician and confirmed guevara portions of the history and physical examination. Agree with impression and plan as noted in the resident documentation. Exam 132/77, 65, 18, 95% room air Semireclined in bed watching TV. No complaints. Lungs are clear throughout with nonlabored respirations. Heart regular. Heart sounds distant. Data Hemoglobin 9.9 Sodium 134, potassium 4.2, BUN 40, creatinine 1.83 Chest x-ray dated 11/12/2021 shows cardiomegaly without pulmonary edema. Impression Status post cardiac arrest (perhaps vagally mediated) with ROSC Osteomyelitis LEONARDO in setting of CKD, improving Awaiting placement Continue daptomycin Subjective No acute events overnight. On evaluation, pt reports feeling ok overall, about the same. Chest soreness improving. Cough improving, still productive of yellow phlegm. Has been doing incentive spirometry more often. Denies dyspnea. Review of Systems Review of Systems: Per subjective Physical Exam Physical Exam: General: well-appearing, sitting in chair, obese CV: RRR, normal S1 and S2, no murmurs Resp: largely clear, mildly coarse at bases, no increased work of breathing Abd: soft, nontender, nondistended Results & Data Results & Data ([facility]) Vital Signs (Past 12 Hours) Vital Signs Temp Pulse Resp BP Pulse Ox O2 Del Method 11/13/21 06:06 36.9 C 65 18 132/77 95 Room Air 11/13/21 00:45 62 94 Room Air 11/12/21 22:17 36.6 C 104 H 20 132/72 90 Room Air 11/12/21 20:55 Room Air Resident Activity Tracking Resident Involvement: Resident Care Provided Care Provided: Adult Hospital Medicine (1) Diabetes mellitus with diabetic polyneuropathy Diabetes mellitus alf insulin use: 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
[2021-11-13 07:11] LABS: BUN Creatinine Ratio 21.9 (10-20); Calcium 8.5 mg/dl (8.5-10.1); Creatinine Clr Calc Pharmacy 60.4 ml/min; Est GFR (African American) 43.9 ml/min; Est GFR (Non-African American) 37.9 ml/min; Potassium 4.2 mmol/L (3.5-5.1)
[2021-11-13 07:41] LABS: Basophils # (auto) 0.06 K/uL (0-0.2); Basophils % (auto) 0.6 %; Eosinophils # (auto) 0.45 K/uL (0-0.50); Eosinophils % (auto) 4.4 %; Immature Granulocytes # (auto) 0.37 K/uL (0.00-0.02); Immature Granulocytes % (auto) 3.6 %; Lymphocytes # (auto) 2.49 K/uL (1.2-3.4); Lymphocytes % (auto) 24.3 %; Monocytes # (auto) 0.82 K/uL (0.24-0.82); Neutrophils # (auto) 6.06 K/uL (1.4-6.5); Neutrophils % (auto) 59.1 %
[2021-11-13] MEDS: amLODIPine BESYLATE 5 MG TAB PO SCH (08:33)
[2021-11-13] MEDS: PANTOprazole 40 MG TAB PO SCH ×2 (08:33→20:25)
[2021-11-13] MEDS: DULoxetine HCL 20 MG CAP PO SCH ×2 (08:33→20:24)
[2021-11-13] MEDS: guaiFENesin 600 MG TABCR PO SCH ×2 (08:33→20:25)
[2021-11-13] MEDS: LIDOCAINE 5% 1 PATCH TD SCH (08:33)
[2021-11-13] MEDS: INSULIN ASPART PER UNIT SC SCH ×4 (08:35→20:35)
[2021-11-13] MEDS: ASPIRIN 81 MG CHEW PO SCH (08:37)
--- NOTE | 2021-11-13 09:13 | Pharmacy Report ---
Pharmacy Glycemic Short Note 2 - Date of Service November 13, 2021 - Glycemic Short BSG Results (Last 24 hours): 11/12/21 11/12/21 11/12/21 12:03 17:10 20:30 Glucose POC Glucose 168 H 134 H 129 H 11/13/21 11/13/21 05:51 08:16 Glucose 151 H POC Glucose 177 H OUTPATIENT ANTIDIABETIC REGIMEN: * Lantus 70 units SC AM * Novolog SC 25 units @ breakfast, 20 units @ lunch, and 15 units @ dinner * Jardiance 25 mg PO daily * Metformin 500 mg PO BID * HbA1C = 7.8% (08/16/21) ASSESSMENT: 11/13: * BSGs remain reasonably well-controlled, but fasting BSGs remain elevated * Will increase Lantus dose today, no change to Novolog anticipated * Continues on daptomycin for treatment of left great toe osteomyelitis 11/11: * Mr. Alvarado received a total of 42 units of insulin yesterday (20 units basal + 22 units bolus). BSGs controlled: [id number] mg/dL. * Fasting BSG controlled at 137 mg/dL this AM. No change to basal scale. * Carb ratio was loosened yesterday. Patient tolerating well so no change today. 11/07: * BSGs well controlled over last 24 hrs * Fasting BSG 142 this AM with 30 units basal on board and following receipt of 4 units correctional insulin over night. Diet appears to have been advanced to clears. PO intake still appears poor however. Will continue to dose Lantus BID with a small increase in dosing scale. * Continue Novolog CF/CR for now as it is difficult to assess given poor PO intake. Following post-prandial trends. PLAN FOR INPATIENT GLYCEMIC CONTROL: * Hold outpatient oral diabetes medications * Basal insulin * Lantus 25 units SC at lunchtime today * Bolus insulin * NovoLog per scale ACHS or Q4hrs while NPO * Goal Range: Low 110 mg/dL - High 140 mg/dL * Correction Factor: 15 mg/dL/unit * Nutritional / Prandial insulin per carb ratio of 1 unit per 5 grams CHO consumed * Further tighten tomorrow if BSGs remain elevated
[2021-11-13] MEDS ORDERED: LANTUS PER UNIT CHARGE SQ ONE (12:45)
[2021-11-13] MEDS: ENOXAPARIN INJ 40 MG/0.4 ML SYR SQ SCH (12:59)
[2021-11-13] MEDS: DAPTOmycin 675 MG in SYRINGE 0 ML IV SCH (13:03)
[2021-11-13] MEDS: TAMSULOSIN HCL 0.4 MG CAP PO SCH (20:24)
[2021-11-13] MEDS: POLYETHYLENE (MIRALAX) 17 GM PACK PO PRN (20:25)
[2021-11-13] MEDS ORDERED: LANTUS PER UNIT CHARGE SQ SCH (21:00)
[2021-11-14] MEDS ORDERED: INSULIN ASPART PER UNIT SC SCH
[2021-11-14] MEDS: ACETAMINOPHEN 500 MG TAB PO SCH ×3 (01:06→18:12)
[2021-11-14] MEDS: ENOXAPARIN INJ 40 MG/0.4 ML SYR SQ SCH ×2 (01:06→12:47)
[2021-11-14] MEDS: MELATONIN 3 MG TAB PO PRN (01:07)
[2021-11-14 08:02] LABS: Hematocrit (blood only) 29.8 % (40.1-51.0); Hemoglobin 9.7 g/dl (14.0-18.0); Mean Corpuscular Hemoglobin 26.6 pg (25.0-34.0); Mean Corpuscular Hgb Conc 32.6 g/dL (32.0-36.0); Mean Corpuscular Volume 81.9 fL (80.0-100.0); Mean Platelet Volume 8.6 fL (9.4-12.4); Platelet Count 209 K/uL (130-400); RDW Coefficient of Variation 13.9 % (11.5-14.5); RDW Standard Deviation 41.2 fL (36.4-46.3); Red Blood Count 3.64 M/uL (4.63-6.08); White Blood Count 10.55 K/ul (4.8-10.8)
[2021-11-14 08:38] LABS: BUN Creatinine Ratio 22.1 (10-20); Calcium 8.7 mg/dl (8.5-10.1); Creatinine Clr Calc Pharmacy 64.3 ml/min; Est GFR (African American) 47.3 ml/min; Est GFR (Non-African American) 40.8 ml/min; Potassium 4.5 mmol/L (3.5-5.1)
[2021-11-14] MEDS ORDERED: LANTUS PER UNIT CHARGE SQ ONE (09:00)
[2021-11-14 09:01] LABS: Basophils # (auto) 0.06 K/uL (0-0.2); Basophils % (auto) 0.6 %; Eosinophils # (auto) 0.36 K/uL (0-0.50); Eosinophils % (auto) 3.4 %; Immature Granulocytes # (auto) 0.33 K/uL (0.00-0.02); Immature Granulocytes % (auto) 3.1 %; Lymphocytes # (auto) 1.72 K/uL (1.2-3.4); Lymphocytes % (auto) 16.3 %; Monocytes # (auto) 0.69 K/uL (0.24-0.82); Monocytes % (auto) 6.5 %; Neutrophils # (auto) 7.39 K/uL (1.4-6.5); Neutrophils % (auto) 70.1 %
--- NOTE | 2021-11-14 09:53 | Discharge Summary ---
Date of Service November 14, 2021 Admission HPI Per Admitting Provider Enrique Alvarado is a 65-year-old male with PMH of osteomyelitis of the left great toe on ampicillin x 6 weeks, PAD, DM2, HTN, HLD, CKD who was in [facility] for his IV antibiotic treatment for osteomyelitis. Patient was to start 6 weeks of ampicillin after a culture grew pansensitive Enterococcus. Of note, he has had multiple wound cultures growing MRSA, Corynebacterium, E. faecalis. He was getting a PICC line placed in [facility] when he went into cardiopulmonary arrest. At that point ari crowell was called and patient received approximately 20 minutes of cardiopulmonary resuscitation, at which point ROSC was achieved. Areli talbot was intubated at bedside and had central line placed at that time. He did receive several rounds of epinephrine and was also given atropine. was immediately taken to ICU for further critical care. Admission Exam Per Admitting Provider GENERAL: Unresponsive CHEST/LUNGS: Coarse breath sounds bilaterally HEART: Faint, thready pulse SKIN: Warm and dry. Principal Diagnosis Osteomyelitis, cardiopulmonary arrest requiring intubation and resuscitation Discharge Exam General: well-appearing, laying in bed, morbidly obese CV: RRR, normal S1 and S2, no murmurs Resp: CTAB, no increased work of breathing Abd: soft, nontender, nondistended Discharge Data Allergies Allergy/AdvReac Type Severity Reaction Status Date / Time No Known Allergies Allergy Verified 11/05/21 09:16 Consultations 11/05/21 10:35 Consult Central Supply Assistant Routine 11/05/21 14:43 Consult Cardiology Routine Procedures Performed Operation Date: 11/05/21 15:30 Actual Procedures p Cath, Left with Cors and Vent - Devang Franco MD s Cineradiography w/Routine Exam - Devang Franco MD s IVUS Coronary Single Vessel - John Veliz MD Ordered Studies 11/05/21 10:44 CT head/brain wo con Stat 11/05/21 10:47 CT angio chest PE protocol Stat 11/05/21 15:26 CL Cath Imgs for PACS use only Routine 11/05/21 16:31 CL IVUS Coronary Single Vessel Urgent Hospital Course (1) Cardiopulmonary arrest with successful resuscitation: 65 year old male w/ PMH T2DM, PAD, osteomyelitis of the left great toe s/p amputation of L great toe admitted to ICU for cardiopulmonary arrest during PICC line placement requiring CPR with eventual ROSC. Osteomyelitis of left great toe Status post amputation on 08/08/2021, subsequent cultures in 09/2021 and 10/2021 growing Enterococcus, MRSA, Corynebacterium Has been receiving ampicillin 2g IV q6h since admission, discontinued 11/08 - Of note, pt apparently scheduled to receive 6 weeks of ampicillin through mid- line per ID provider in [place]. Due to most recent wound culture growing MRSA, he may need PICC if vancomycin indicated -Contacted ID provider who deferred choice of abx to primary service - Given pt's positive MRSA wound culture from 10/2021 along with risk factors and recent cardiac arrest, will pursue MRSA treatment -Ampicillin shifted to daptomycin on 11/08 -Continue daptomycin, anticipated 6 week antibiotic course (conclude on 12/17) -Wound care following, wound improving -Unfortunately pt was denied for acute rehab- now pursuing SNF placement, pt discharged back home with continued home health services and home PT/OT Cardiopulmonary arrest s/p CPR with ROSC Arrest on 11/05 occurring during PICC line placement, unclear etiology possible transient arrhythmia versus vagal episode Downgraded from ICU on 11/06 after successful extubation and weaning off vasopressors Echocardiogram- limited due to technically difficult study- EF 70+ %, grade 1 diastolic dysfunction Cardiology consulted -Catheterization 11/05- mid LAD + mid RCA obstructive CAD with 70% stenosis noted -Recommend medical management of CAD- daily aspirin, increase atorvastatin to 40 mg daily -Troponin 1180 after catheterization downtrending to 940, unlikely to indicate ACS -No further cardiology evaluation indicated - Most recent EKG unremarkable 11/07 - Scheduled Tylenol for MSK chest pain from compressions Acute respiratory failure Required intubation during cardiopulmonary arrest, extubated later same day on 11/05 - CT Chest 11/05- no pulmonary emboli, +airspace opacities b/l upper lobes which may indicate atelectasis, multiple acute anterior rib fractures - CXR 11/12- cardiomegaly without overt pulmonary edema - Supportive care- incentive spirometry, flutter valve, albuterol PRN, encourage ambulation - Currently saturating well on RA Hypertension -BP stable at this time -No known BP medications at home -Continue amlodipine 10 mg, will continue on discharge LEONARDO on CKD3 Baseline creatinine 1.8-2.1, admission Cr 2.3 to 2.85 Creatinine at baseline, 1.72 today - Trend BMP DM2 Holding home regimen Lantus, ISS DVT prophylaxis: Lovenox 40 mg BID Diet: carb consistent, heart healthy Dispo: Medical/surgical, awaiting rehab placement CODE STATUS: Full (2) Hypertension: (3) Dyslipidemia: (4) Depression: (5) Diabetes mellitus with diabetic polyneuropathy: (6) CKD (chronic kidney disease): (7) PAD (peripheral artery disease): (8) Osteomyelitis of great toe of left foot: Total Time Total Time Spent Total Time Spent (In Minutes): 30 Discharge Plan Discharge Items Reason For Visit: CARDIORESPIRATORY ARREST Follow-up/Referrals: Dora Sales MD [Primary Care Provider] - Medications and DC Order Prescriptions: No Action aspirin 81 mg tablet,chewable 81 mg PO QAM furosemide 20 mg tablet 20 mg PO QAM Qty: 30 11RF (DME) FreeStyle Remigio 2 [place] Misc See Rx Instructions .Route Qty: 1 0RF Rx Instructions: Use to monitor blood sugars daily (DME) FreeStyle Remigio 2 Sensor Kit See Rx Instructions .Route Qty: 7 3RF Rx Instructions: Change sensor every 14 days pantoprazole 40 mg tablet,delayed release (DR/EC) 40 mg PO BID Qty: 60 5RF (DME) pen needle, diabetic [BD Ultra-Fine Mini Pen Needle] 31 gauge x 3/16" needle See Dose Instructions .ROUTE .MEDSUPPLY Qty: 400 3RF Rx Instructions: use 4 needles daily empagliflozin 25 mg tablet 25 mg PO DAILY Qty: 90 3RF metformin 500 mg tablet 500 mg PO BID 90 Days Qty: 180 3RF Lokelma 5 gram powder in packet 5 g PO DAILY Qty: 30 2RF (DME) Accu-Chek Guide test strips Strip See Rx Instructions .ROUTE .MEDSUPPLY Qty: 50 3RF Rx Instructions: test blood sugar 1 x daily atorvastatin 10 mg tablet 10 mg PO QPM Qty: 30 5RF duloxetine [Cymbalta] 20 mg capsule,delayed release(DR/EC) 20 mg PO BID Qty: 180 2RF Basaglar KwikPen U-100 Insulin 100 unit/mL (3 mL) insulin pen 65 unit SQ QAM 90 Days Qty: 60 3RF Adult Probiotic 3 billion cell capsule 3,000 mmu cells PO BID Rx Instructions: administer with a meal (DME) lancets [Accu-Chek Fastclix Lancet Drum] Misc See Rx Instructions .ROUTE .MEDSUPPLY Rx Instructions: test blood sugar 1 x daily (DME) blood-glucose meter [Accu-Chek Guide Glucose Meter] Misc See Rx Instructions .ROUTE .MEDSUPPLY Rx Instructions: Test blood sugars 1 times a day Novolog Flexpen U-100 Insulin 100 unit/mL (3 mL) insulin pen 80 unit SQ DAILY tamsulosin 0.4 mg capsule 0.4 mg PO HS ergocalciferol (vitamin D2) 1,250 mcg (50,000 unit) capsule 1,250 mcg PO WK Admission Data Admit Date/Time: 11/05/21 10:35 Attending Provider: Hermann Varghese Admit Provider: Cam Patel Primary Care Provider: Dora Sales Other Providers: [facility],Home [facility] ; [facility] ; Chepe Alvarez ; Devang Franco ; Caroline Plascencia [facility] Resident Activity Tracking Resident Involvement: Resident Care Provided Care Provided: Adult Hospital Medicine
[2021-11-14] MEDS: guaiFENesin 600 MG TABCR PO SCH ×2 (10:16→20:53)
[2021-11-14] MEDS: amLODIPine BESYLATE 5 MG TAB PO SCH (10:16)
[2021-11-14] MEDS: PANTOprazole 40 MG TAB PO SCH ×2 (10:16→20:53)
[2021-11-14] MEDS: LIDOCAINE 5% 1 PATCH TD SCH (10:16)
[2021-11-14] MEDS: DULoxetine HCL 20 MG CAP PO SCH ×2 (10:16→20:54)
[2021-11-14] MEDS: INSULIN ASPART PER UNIT SC SCH ×4 (10:19→21:34)
[2021-11-14] MEDS: ASPIRIN 81 MG CHEW PO SCH (10:26)
[2021-11-14] MEDS: DAPTOmycin 675 MG in SYRINGE 0 ML IV SCH (12:47)
--- NOTE | 2021-11-14 14:04 | Hospitalist Progress Note ---
Date of Service November 14, 2021 Assessment & Plan (1) Cardiopulmonary arrest with successful resuscitation: Plan: 65 year old male w/ PMH T2DM, PAD, osteomyelitis of the left great toe s/p amputation of L great toe admitted to ICU for cardiopulmonary arrest during PICC line placement requiring CPR with eventual ROSC. Osteomyelitis of left great toe Status post amputation on 08/08/2021, subsequent cultures in 09/2021 and 10/2021 growing Enterococcus, MRSA, Corynebacterium Has been receiving ampicillin 2g IV q6h since admission, discontinued 11/08 - Of note, pt apparently scheduled to receive 6 weeks of ampicillin through mid- line per ID provider in [place]. Due to most recent wound culture growing MRSA, he may need PICC if vancomycin indicated -Contacted ID provider who deferred choice of abx to primary service - Given pt's positive MRSA wound culture from 10/2021 along with risk factors and recent cardiac arrest, will pursue MRSA treatment -Ampicillin shifted to daptomycin on 11/08 -Continue daptomycin, anticipated 6 week antibiotic course (conclude on 12/17) -Wound care following, wound improving -Unfortunately pt was denied for acute rehab- now pursuing SNF placement vs possible d/c back home in the AM with usual home health services + home PT/OT Cardiopulmonary arrest s/p CPR with ROSC Arrest on 11/05 occurring during PICC line placement, unclear etiology possible transient arrhythmia versus vagal episode Downgraded from ICU on 11/06 after successful extubation and weaning off vasopressors Echocardiogram- limited due to technically difficult study- EF 70+ %, grade 1 diastolic dysfunction Cardiology consulted -Catheterization 11/05- mid LAD + mid RCA obstructive CAD with 70% stenosis noted -Recommend medical management of CAD- daily aspirin, increase atorvastatin to 40 mg daily -Troponin 1180 after catheterization downtrending to 940, unlikely to indicate ACS -No further cardiology evaluation indicated - Most recent EKG unremarkable 11/07 - Scheduled Tylenol for MSK chest pain from compressions Acute respiratory failure Required intubation during cardiopulmonary arrest, extubated later same day on 11/05 - CT Chest 11/05- no pulmonary emboli, +airspace opacities b/l upper lobes which may indicate atelectasis, multiple acute anterior rib fractures - CXR 11/12- cardiomegaly without overt pulmonary edema - Supportive care- incentive spirometry, flutter valve, albuterol PRN, encourage ambulation - Currently saturating well on RA Hypertension -BP stable at this time -No known BP medications at home -Continue amlodipine 10 mg, will continue on discharge LEONARDO on CKD3 Baseline creatinine 1.8-2.1, admission Cr 2.3 to 2.85 Creatinine at baseline, 1.72 today - Trend BMP DM2 Holding home regimen Lantus, ISS DVT prophylaxis: Lovenox 40 mg BID Diet: carb consistent, heart healthy Dispo: Medical/surgical, awaiting rehab placement CODE STATUS: Full (2) Hypertension: (3) Dyslipidemia: (4) Depression: (5) Diabetes mellitus with diabetic polyneuropathy: (6) CKD (chronic kidney disease): (7) PAD (peripheral artery disease): (8) Osteomyelitis of great toe of left foot: Admission and Anticipated Discharge Date Admission Date: November 05, 2021 Supervising Physician Co-Signing Physician Notes I also saw the patient with the resident physician and confirmed guevara portions of the history and physical examination. Agree with impression and plan as noted in the resident documentation. Exam 134/67, 79, 22, 36.5, 94% on room air Semireclined in bed watching TV. No complaints. Lungs are clear throughout with nonlabored respirations. Heart regular. Heart sounds distant. Data Hemoglobin 9.7 Sodium 137, potassium 4.5, BUN 38, creatinine 1.72 Impression Status post cardiac arrest (perhaps vagally mediated) with ROSC Osteomyelitis LEONARDO in setting of CKD, improving Unfortunately patient's insurance denied inpatient redilatation as we had recommended. I completed a peer to peer evaluation with the patient's insurance company this morning emphasizing the need for supervised medical care due to the patient's multiple comorbidities and recent cardiac arrest, combined which puts her at high risk for complications/readmission. However, this was still denied. I relayed this information to the patient today and he will discuss with his next steps, options which include a correction facility, home services, or patient appeal of the insurance company decision. Additional per resident documentation Subjective No acute events overnight. On evaluation, pt reports feeling better than yesterday. Chest soreness improving. Cough improving, still productive of yellow phlegm. Has been doing incentive spirometry more often. Denies dyspnea. Pt states he would like to go home with his usual home health services but would speak with to discuss best plan for his discharge. Review of Systems Review of Systems: Per subjective Physical Exam Physical Exam: General: well-appearing, laying in bed, morbidly obese CV: RRR, normal S1 and S2, no murmurs Resp: CTAB, no increased work of breathing Abd: soft, nontender, nondistended Results & Data Results & Data ([facility]) Vital Signs (Past 12 Hours) Vital Signs Temp Pulse Resp BP Pulse Ox O2 Del Method 11/14/21 06:27 36.5 C 79 22 134/67 94 Room Air Resident Activity Tracking Resident Involvement: Resident Care Provided Care Provided: Adult Hospital Medicine (1) Diabetes mellitus with diabetic polyneuropathy Diabetes mellitus custodial insulin use: 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
[2021-11-14] MEDS: POLYETHYLENE (MIRALAX) 17 GM PACK PO PRN (17:11)
[2021-11-14] MEDS: TAMSULOSIN HCL 0.4 MG CAP PO SCH (20:54)
[2021-11-14] MEDS ORDERED: LANTUS PER UNIT CHARGE SQ SCH (21:00)
[2021-11-15] MEDS: ENOXAPARIN INJ 40 MG/0.4 ML SYR SQ SCH ×2 (01:21→13:16)
[2021-11-15] MEDS: ACETAMINOPHEN 500 MG TAB PO SCH ×3 (01:22→18:07)
[2021-11-15] MEDS: INSULIN ASPART PER UNIT SC SCH ×4 (09:03→21:50)
[2021-11-15] MEDS: LANTUS PER UNIT CHARGE SQ SCH (09:05)
[2021-11-15] MEDS: amLODIPine BESYLATE 5 MG TAB PO SCH (09:05)
[2021-11-15] MEDS: LIDOCAINE 5% 1 PATCH TD SCH (09:05)
[2021-11-15] MEDS: DULoxetine HCL 20 MG CAP PO SCH ×2 (09:05→20:09)
[2021-11-15] MEDS: guaiFENesin 600 MG TABCR PO SCH ×2 (09:05→20:10)
[2021-11-15] MEDS: PANTOprazole 40 MG TAB PO SCH ×2 (09:05→20:09)
[2021-11-15] MEDS: ASPIRIN 81 MG CHEW PO SCH (09:06)
--- NOTE | 2021-11-15 09:21 | Pharmacy Report ---
Pharmacy Glycemic Short Note 2 - Date of Service November 15, 2021 - Glycemic Short BSG Results (Last 24 hours): 11/14/21 11/14/21 11/14/21 11:52 16:56 20:41 POC Glucose 172 H 72 112 H 11/15/21 08:11 POC Glucose 130 H OUTPATIENT ANTIDIABETIC REGIMEN: * Lantus 70 units SC AM * Novolog SC 25 units @ breakfast, 20 units @ lunch, and 15 units @ dinner * Jardiance 25 mg PO daily * Metformin 500 mg PO BID * HbA1C = 7.8% (08/16/21) ASSESSMENT: 11/15: * BSGs remain reasonably well-controlled, fasting BSG improved to 130 mg/dL * Lantus increased to 30 units yesterday, will continue * No change to Novolog parameters today * Significant discrepancy between outpatient/inpatient insulin doses * Likely d/c tomorrow to home 11/13: * BSGs remain reasonably well-controlled, but fasting BSGs remain elevated * Will increase Lantus dose today, no change to Novolog anticipated * Continues on daptomycin for treatment of left great toe osteomyelitis 11/11: * Mr. Alvarado received a total of 42 units of insulin yesterday (20 units basal + 22 units bolus). BSGs controlled: [id number] mg/dL. * Fasting BSG controlled at 137 mg/dL this AM. No change to basal scale. * Carb ratio was loosened yesterday. Patient tolerating well so no change today. 11/07: * BSGs well controlled over last 24 hrs * Fasting BSG 142 this AM with 30 units basal on board and following receipt of 4 units correctional insulin over night. Diet appears to have been advanced to clears. PO intake still appears poor however. Will continue to dose Lantus BID with a small increase in dosing scale. * Continue Novolog CF/CR for now as it is difficult to assess given poor PO intake. Following post-prandial trends. PLAN FOR INPATIENT GLYCEMIC CONTROL: * Hold outpatient oral diabetes medications * Basal insulin * Lantus 30 units SC daily * Bolus insulin * NovoLog per scale ACHS or Q4hrs while NPO * Goal Range: Low 110 mg/dL - High 140 mg/dL * Correction Factor: 15 mg/dL/unit * Nutritional / Prandial insulin per carb ratio of 1 unit per 5 grams CHO consumed
--- NOTE | 2021-11-15 11:00 | Hospitalist Progress Note ---
Date of Service November 15, 2021 Assessment & Plan (1) Cardiopulmonary arrest with successful resuscitation: Plan: 65 year old male w/ PMH T2DM, PAD, osteomyelitis of the left great toe s/p amputation of L great toe admitted to ICU for cardiopulmonary arrest during PICC line placement requiring CPR with eventual ROSC. Osteomyelitis of left great toe Status post amputation on 08/08/2021, subsequent cultures in 09/2021 and 10/2021 growing Enterococcus, MRSA, Corynebacterium Has been receiving ampicillin 2g IV q6h since admission, discontinued 11/08 - Of note, pt apparently scheduled to receive 6 weeks of ampicillin through mid- line per ID provider in [place]. Due to most recent wound culture growing MRSA, he may need PICC if vancomycin indicated -Contacted ID provider who deferred choice of abx to primary service - Given pt's positive MRSA wound culture from 10/2021 along with risk factors and recent cardiac arrest, will pursue MRSA treatment -Ampicillin shifted to daptomycin on 11/08 -Continue daptomycin, anticipated 6 week antibiotic course (conclude on 12/17) -Wound care following, wound improving -Planned d/c tomorrow in AM back home with home health services/PT/OT, script completed for IV antibiotic therapy Cardiopulmonary arrest s/p CPR with ROSC Arrest on 11/05 occurring during PICC line placement, unclear etiology possible transient arrhythmia versus vagal episode Downgraded from ICU on 11/06 after successful extubation and weaning off vasopressors Echocardiogram- limited due to technically difficult study- EF 70+ %, grade 1 diastolic dysfunction Cardiology consulted -Catheterization 11/05- mid LAD + mid RCA obstructive CAD with 70% stenosis noted -Recommend medical management of CAD- daily aspirin, increase atorvastatin to 40 mg daily -Troponin 1180 after catheterization downtrending to 940, unlikely to indicate ACS -No further cardiology evaluation indicated - Most recent EKG unremarkable 11/07 - Scheduled Tylenol for MSK chest pain from compressions Acute respiratory failure Required intubation during cardiopulmonary arrest, extubated later same day on 11/05 - CT Chest 11/05- no pulmonary emboli, +airspace opacities b/l upper lobes which may indicate atelectasis, multiple acute anterior rib fractures - CXR 11/12- cardiomegaly without overt pulmonary edema - Supportive care- incentive spirometry, flutter valve, albuterol PRN, encourage ambulation - Currently saturating well on RA Hypertension -BP stable at this time -No known BP medications at home -Continue amlodipine 10 mg, will continue on discharge LEONARDO on CKD3 Baseline creatinine 1.8-2.1, admission Cr 2.3 to 2.85 Creatinine at baseline, 1.72 today on 11/14 DM2 Holding home regimen Lantus, ISS DVT prophylaxis: Lovenox 40 mg BID Diet: carb consistent, heart healthy Dispo: Medical/surgical, going home tomorrow with home health/[facility]OT CODE STATUS: Full (2) Hypertension: (3) Dyslipidemia: (4) Depression: (5) Diabetes mellitus with diabetic polyneuropathy: (6) CKD (chronic kidney disease): (7) PAD (peripheral artery disease): (8) Osteomyelitis of great toe of left foot: Admission and Anticipated Discharge Date Admission Date: November 05, 2021 Supervising Physician Co-Signing Physician Notes I also saw the patient with the resident physician and confirmed guevara portions of the history and physical examination. Agree with impression and plan as noted in the resident documentation. Exam 119/69, 58, 24, 36.9, 94% on room air Seated in bedside chair. No complaints. Lungs are clear throughout with nonlabored respirations. Heart regular. Heart sounds distant. Impression Status post cardiac arrest (perhaps vagally mediated) with ROSC Osteomyelitis LEONARDO in setting of CKD, improving Arrangements have been made for home health and home IV therapy, starting tomorrow Upon discharge, follow-up with infectious disease in [place] Additional per resident documentation Subjective No acute events overnight. On evaluation, pt reports feeling better than yesterday. Chest soreness mild and slowly improving. Cough much better, starting to clear up. Has been doing incentive spirometry more often. Denies dyspnea, chest pain, fever, chills. Pt excited to go home tomorrow. His will help take care of him and he will continue his home health services he had prior to admission. Review of Systems Review of Systems: Per subjective Physical Exam Physical Exam: General: well-appearing, laying in bed, morbidly obese CV: RRR, normal S1 and S2, no murmurs Resp: CTAB, no crackles or wheezes, no increased work of breathing Abd: soft, nontender, nondistended MSK: mild tenderness to palpation of sternum, no crepitus Results & Data Results & Data ([facility]) Vital Signs (Past 12 Hours) Vital Signs Temp Pulse Resp BP Pulse Ox O2 Del Method 11/15/21 07:30 Room Air 11/15/21 07:18 36.5 C 64 22 133/74 96 Room Air Resident Activity Tracking Resident Involvement: Resident Care Provided Care Provided: Adult Hospital Medicine (1) Diabetes mellitus with diabetic polyneuropathy 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
[2021-11-15] MEDS: DAPTOmycin 675 MG in SYRINGE 0 ML IV SCH (13:19)
[2021-11-15] MEDS: TAMSULOSIN HCL 0.4 MG CAP PO SCH (20:10)
[2021-11-16] MEDS: ENOXAPARIN INJ 40 MG/0.4 ML SYR SQ SCH ×2 (00:01→13:13)
[2021-11-16] MEDS: ACETAMINOPHEN 500 MG TAB PO SCH ×2 (02:31→08:54)
[2021-11-16 08:11] LABS: Basophils # (auto) 0.03 K/uL (0-0.2); Basophils % (auto) 0.3 %; Eosinophils # (auto) 0.26 K/uL (0-0.50); Eosinophils % (auto) 2.7 %; Hematocrit (blood only) 31.1 % (40.1-51.0); Hemoglobin 9.8 g/dl (14.0-18.0); Immature Granulocytes # (auto) 0.13 K/uL (0.00-0.02); Immature Granulocytes % (auto) 1.3 %; Lymphocytes # (auto) 1.38 K/uL (1.2-3.4); Lymphocytes % (auto) 14.2 %; Mean Corpuscular Hemoglobin 26.9 pg (25.0-34.0); Mean Corpuscular Hgb Conc 31.5 g/dL (32.0-36.0); Mean Corpuscular Volume 85.4 fL (80.0-100.0); Mean Platelet Volume 8.3 fL (9.4-12.4); Monocytes # (auto) 0.57 K/uL (0.24-0.82); Monocytes % (auto) 5.9 %; Neutrophils # (auto) 7.33 K/uL (1.4-6.5); Neutrophils % (auto) 75.6 %; Platelet Count 229 K/uL (130-400); RDW Coefficient of Variation 14.1 % (11.5-14.5); RDW Standard Deviation 43.9 fL (36.4-46.3); Red Blood Count 3.64 M/uL (4.63-6.08)
[2021-11-16 08:34] LABS: BUN Creatinine Ratio 18.2 (10-20); Chol HDL Ratio 5.5 (0-5); Creatinine Clr Calc Pharmacy 62.8 ml/min; Est GFR (Non-African American) 39.7 ml/min; Potassium 4.9 mmol/L (3.5-5.1)
[2021-11-16] MEDS: INSULIN ASPART PER UNIT SC SCH ×2 (08:50→13:12)
[2021-11-16] MEDS: LANTUS PER UNIT CHARGE SQ SCH (08:51)
[2021-11-16] MEDS: amLODIPine BESYLATE 5 MG TAB PO SCH (08:52)
[2021-11-16] MEDS: guaiFENesin 600 MG TABCR PO SCH (08:53)
[2021-11-16] MEDS: PANTOprazole 40 MG TAB PO SCH (08:53)
[2021-11-16] MEDS: DULoxetine HCL 20 MG CAP PO SCH (08:54)
[2021-11-16] MEDS: LIDOCAINE 5% 1 PATCH TD SCH (09:47)
[2021-11-16 10:09] LABS: Estimated Average Glucose 151 mg/dl; Hemoglobin A1C 6.9 % (4.5-5.6)
--- NOTE | 2021-11-16 11:58 | Discharge Summary ---
Date of Service November 16, 2021 Admission HPI Per Admitting Provider Enrique Alvarado is a 65-year-old male with PMH of osteomyelitis of the left great toe on ampicillin x 6 weeks, PAD, DM2, HTN, HLD, CKD who was in [facility] for his IV antibiotic treatment for osteomyelitis. Patient was to start 6 weeks of ampicillin after a culture grew pansensitive Enterococcus. Of note, he has had multiple wound cultures growing MRSA, Corynebacterium, E. faecalis. He was getting a PICC line placed in [facility] when he went into cardiopulmonary arrest. At that point ari crowell was called and patient received approximately 20 minutes of cardiopulmonary resuscitation, at which point ROSC was achieved. Areli talbot was intubated at bedside and had central line placed at that time. He did receive several rounds of epinephrine and was also given atropine. was immediately taken to ICU for further critical care. Admission Exam Per Admitting Provider GENERAL: Unresponsive CHEST/LUNGS: Coarse breath sounds bilaterally HEART: Faint, thready pulse SKIN: Warm and dry. Principal Diagnosis Osteomyelitis of L big toe, cardiac arrest Discharge Exam General: well-appearing, laying in bed, morbidly obese CV: RRR, normal S1 and S2, no murmurs Resp: CTAB, no crackles or wheezes, no increased work of breathing Abd: soft, nontender, nondistended MSK: mild tenderness to palpation of sternum, no crepitus Skin: L foot bandaged with minimal serosanguinous drainage from L great toe, no purulence or pain to palpation Discharge Data Allergies Allergy/AdvReac Type Severity Reaction Status Date / Time No Known Allergies Allergy Verified 11/05/21 09:16 Consultations 11/05/21 10:35 Consult Duty Engineer Routine 11/05/21 14:43 Consult Cardiology Routine Procedures Performed Operation Date: 11/05/21 15:30 Actual Procedures p Cath, Left with Cors and Vent - Devang Franco MD s Cineradiography w/Routine Exam - Devang Franco MD s IVUS Coronary Single Vessel - John Veliz MD Ordered Studies 11/05/21 10:44 CT head/brain wo con Stat 11/05/21 10:47 CT angio chest PE protocol Stat 11/05/21 15:26 CL Cath Imgs for PACS use only Routine 08/01/22 16:31 CL IVUS Coronary Single Vessel Urgent Hospital Course (1) Cardiopulmonary arrest with successful resuscitation: 65 year old male w/ PMH T2DM, PAD, osteomyelitis of the left great toe s/p amputation of L great toe admitted to ICU for cardiopulmonary arrest during PICC line placement requiring CPR with eventual ROSC. Osteomyelitis of left great toe s/p amputation Status post amputation on 08/08/2021, subsequent cultures in 09/2021 and 10/2021 growing Enterococcus, MRSA, Corynebacterium Has been receiving ampicillin 2g IV q6h since admission, discontinued 11/08 - Of note, pt initially scheduled to receive 6 weeks of ampicillin through mid- line per ID provider in [place] - Given pt's positive MRSA wound culture from 10/2021 along with risk factors and recent cardiac arrest, pursue MRSA treatment -Ampicillin shifted to daptomycin on 11/08 -Continue daptomycin, anticipated 6 week antibiotic course (conclude on 12/17) -Weekly CBC with differential, BMP, CPK while on daptomycin -Atorvastatin held while on daptomycin, pt will resume atorvastatin when daptomycin completed -Wound care following -Discharged home today with regular [facility] home health services, PT/OT to complete abx at home Cardiopulmonary arrest s/p CPR with ROSC Arrest on 11/05 occurring during PICC line placement, unclear etiology possible transient arrhythmia versus vagal episode Downgraded from ICU on 11/06 after successful extubation and weaning off vasopressors Echocardiogram- limited due to technically difficult study- EF 70+ %, grade 1 diastolic dysfunction Cardiology consulted -Catheterization 11/05- mid LAD + mid RCA obstructive CAD with 70% stenosis noted -Recommend medical management of CAD- daily aspirin, increase atorvastatin to 40 mg daily -Troponin 1180 after catheterization downtrending to 940, unlikely to indicate ACS -No further cardiology evaluation indicated - Most recent EKG unremarkable 11/07 - MSK chest pain 2/2 chest compressions improving by time of discharge Acute respiratory failure Required intubation during cardiopulmonary arrest, extubated later same day on 11/05 - CT Chest 11/05- no pulmonary emboli, +airspace opacities b/l upper lobes which may indicate atelectasis, multiple acute anterior rib fractures - CXR 11/12- cardiomegaly without overt pulmonary edema - Supportive care- incentive spirometry, flutter valve, albuterol PRN, encourage ambulation - Saturating well on RA at time of discharge Hypertension -BP stable during stay -No known BP medications at home -Continue amlodipine 10 mg, prescribed on discharge Hyperlipidemia -Atorvastatin 10 mg at home -As above, continue holding atorvastatin while patient is on daptomycin- he can resume atorvastatin after abx completed on 12/17 LEONARDO on CKD3 Baseline creatinine 1.8-2.1, admission Cr 2.3 to 2.85 Creatinine at baseline, 1.73 on day of discharge (2) Hypertension: (3) Dyslipidemia: (4) Depression: (5) Diabetes mellitus with diabetic polyneuropathy: (6) CKD (chronic kidney disease): (7) PAD (peripheral artery disease): (8) Osteomyelitis of great toe of left foot: Total Time Total Time Spent Total Time Spent (In Minutes): 30 Discharge Plan Discharge Items Patient Disposition: Home - Home Health Services Reason For Visit: CARDIORESPIRATORY ARREST Discharge Diagnosis: Osteomyelitis, cardiac arrest Activity: Resume your previous activity Non-emergency contact: Primary Care Provider Call non-emergency contact if: your symptoms worsen, your pain is worsening and you have a fever Follow-up/Referrals: Dora Sales MD [Primary Care Provider] - 11/21/21 2:00 pm Diet: Carb Consistent or DM2 Addtl Attending Provider Instructions: You were admitted to the hospital for cardiac arrest during the PICC line insertion for your antibiotics. You were resuscitated with CPR and intubated, but thankful you stabilized. We treated your infection while here in the hospital and your heart rate and blood pressure remained normal. A discharge summary will be sent to your primary care physician to ensure continuity of care. Please bring this discharge summary with you to your next office appointment so that your provider can review it at that time. Follow-up appointments: Make a follow-up appointment with your PCP within the next week. It is very important that you follow up with them shortly after discharge from the hospital. Please follow up with your infectious disease doctor in [place] as well. Medications: Your medication list has been reviewed and reconciled upon discharge to ensure accuracy and continuity of care. An updated list of all your medications is included with your hospital discharge paperwork. Please review this list closely, and make note of any changes. You will take daptomycin IV every day until 12/17/21. This will treat the remainder of your toe/bone infection. You will get weekly labwork to ensure the medication does not cause side effects. We sent a new medication called amlodipine to the pharmacy. This is for your blood pressure. Please take amlodipine daily 10 mg. You normally take atorvastatin 10 mg once a day for high cholesterol. Please do not take atorvastatin until you finish taking your IV antibiotics on 12/17/21. You can resume atorvastatin on 12/18/21. Take your medications as instructed; do not skip a dose of your medicines. Make sure all of your doctors know every medicine you are taking (including sspz-dec-qoyrzlo medicines, vitamins, and supplements). Call your primary care provider before taking any new medicines (including bnsm-nne-vaperzp medicines, vitamins, and supplements), because some of these may interact with your current medications, or may make your symptoms worse. Tell your primary care provider if you cannot afford your medications. CONTACT YOUR PRIMARY CARE PROVIDER if you experience any of the following: Fever Foot pain Chills Night sweats Wound pain or redness or drainage Difficulty following your treatment plan, or difficulty taking medications CALL 911 OR GO TO THE EMERGENCY DEPARTMENT if you experience any of the following: Sudden, severe abdominal pain or nausea/vomiting Severe chest pain, or chest pain that radiates (moves) to your jaw or arm Sudden, severe shortness of breath or difficulty breathing Thank you for allowing us to participate in your care. Pending Studies at Discharge: No Stand-Alone Forms: [facility] Medications and DC Order Prescriptions: New amlodipine [Norvasc] 5 mg Tablet 10 mg PO QAM Qty: 30 1RF daptomycin 500 mg recon soln 675 mg IV DAILY Qty: 1 0RF Rx Instructions: administer over 30 mins Continued aspirin 81 mg tablet,chewable 81 mg PO QAM furosemide 20 mg tablet 20 mg PO QAM Qty: 30 11RF (DME) FreeStyle Remigio 2 [place] Misc See Rx Instructions .Route Qty: 1 0RF Rx Instructions: Use to monitor blood sugars daily (DME) FreeStyle Remigio 2 Sensor Kit See Rx Instructions .Route Qty: 7 3RF Rx Instructions: Change sensor every 14 days pantoprazole 40 mg tablet,delayed release (DR/EC) 40 mg PO BID Qty: 60 5RF (DME) pen needle, diabetic [BD Ultra-Fine Mini Pen Needle] 31 gauge x 3/16" needle See Dose Instructions .ROUTE .MEDSUPPLY Qty: 400 3RF Rx Instructions: use 4 needles daily empagliflozin 25 mg tablet 25 mg PO DAILY Qty: 90 3RF metformin 500 mg tablet 500 mg PO BID 90 Days Qty: 180 3RF Lokelma 5 gram powder in packet 5 g PO DAILY Qty: 30 2RF (DME) Accu-Chek Guide test strips Strip See Rx Instructions .ROUTE .MEDSUPPLY Qty: 50 3RF Rx Instructions: test blood sugar 1 x daily atorvastatin 10 mg tablet 10 mg PO QPM Qty: 30 5RF duloxetine [Cymbalta] 20 mg capsule,delayed release(DR/EC) 20 mg PO BID Qty: 180 2RF Basaglar KwikPen U-100 Insulin 100 unit/mL (3 mL) insulin pen 65 unit SQ QAM 90 Days Qty: 60 3RF Adult Probiotic 3 billion cell capsule 3,000 mmu cells PO BID Rx Instructions: administer with a meal (DME) lancets [Accu-Chek Fastclix Lancet Drum] Misc See Rx Instructions .ROUTE .MEDSUPPLY Rx Instructions: test blood sugar 1 x daily (DME) blood-glucose meter [Accu-Chek Guide Glucose Meter] Misc See Rx Instructions .ROUTE .MEDSUPPLY Rx Instructions: Test blood sugars 1 times a day Novolog Flexpen U-100 Insulin 100 unit/mL (3 mL) insulin pen 80 unit SQ DAILY tamsulosin 0.4 mg capsule 0.4 mg PO HS ergocalciferol (vitamin D2) 1,250 mcg (50,000 unit) capsule 1,250 mcg PO WK Discharge Orders: Discharge Order (Routine); Ordered 11/16/21 Ordered By: Nena Toure Admission Data Admit Date/Time: 11/05/21 10:35 Attending Provider: Britt Thacker Admit Provider: Cam Patel Primary Care Provider: Dora Sales Other Providers: [facility],Home Healthcare ; [facility] ; Chepe Alvarez [facility] W. ; Caroline Plascencia [facility] Other Interventions: Discharge Summary Assessment (RN) Last Done: 11/16/21 14:54 Supervising Physician Co-Signing Physician Notes Patient seen and examined independently of PGY-2 Dr. Toure. Agree with history, exam findings, assessment and plan as outlined. In brief, Mr. Alvarado is a 65-year-old male with history of DM2, PAD, and osteomyelitis admitted following cardiac arrest during a PICC line insertion. No complaints this morning. VS and nursing notes reviewed. Well appearing. Obese. Heart with regular rate and rhythm. Lungs are clear to auscultation. Labs and imaging reviewed. 1. Osteomyelitis of left great toe. Culture showing MRSA. Dapto x 6 weeks. 2. Cardiopulmonary arrest with CRP with ROSC. Cath with mid-LAD and mid-RCA obstructive CASD with 70% stenosis. ASA, atorvastatin 40mg. 3. HTN. Continue amlodipine 10mg. 4. LEONARDO on CKD. Resolved. Baseline CR 1.8-2.1. 5. DM2. Basal-bolus insulin. Dispo: discharge home today with home healthcare. I personally spent 20 minutes discharge planning for this patient. Resident Activity Tracking Resident Involvement: Resident Care Provided Care Provided: Adult Hospital Medicine
[2021-11-16] MEDS: ASPIRIN 81 MG CHEW PO SCH (13:12)
[2021-11-16] MEDS: DAPTOmycin 675 MG in SYRINGE 0 ML IV SCH (13:13)
--- NOTE | 2021-11-21 11:20 | Coding Query ---
To promote full compliance with coding requirements relating to patient care, provider participation is requested in all cases of diamond wheel edger uncertainty. Please assist us with the question(s) below: Coding Question(s): The diagnosis below was documented in the Cardiac Catheterization Pre-Procedure Diagnosis, then subsequently fell off all further documentation. Please indicate if it is still a possible diagnosis or ruled out. Physician's Response(s): Non STEMI ( ) Diagnosed and POA ( x ) Diagnosed and not POA ( ) Ruled out ( ) Other (please specify) MTDD
--- NOTE | 2021-11-21 11:51 | Coding Query ---
CODING QUERY To promote full compliance with coding requirements relating to patient care, provider participation is requested in all cases of outpatient coder uncertainty. Please assist us with the question(s) below: Coding Question(s): Cardiac Arrest is documented and the H&P documents, " Cardiopulmonary arrest with successful resuscitation Arrest occurring during PICC line placement, unclear etiology possible transient arrhythmia versus vagal episode Received CPR with several rounds of epi, ROSC achieved also given atropine Admitted to ICU Started on epinephrine drip Echo showing EF of over 70% Cardiology consulted underwent cath showing complex lesion in the mid LAD with estimated stenosis of 70%, 70% mid RCA stenosis No acute disease to explain patient's cardiac arrest, recommend medical management of stable CAD", and the Supervising Physician on the H&P documented, "Pt was a code blue, with cardio pulmonary arrest, he was resuscitated, but the direct cause of the event is still to be determined", and the Critical Care Consultation on 11/05 and Critical Care PN on 11/06 document, "Cardiopulmonary Arrest with successful Resuscitation -Inciting event of PICC line insertion, ?vagal contribution", and the Cardiology Consultation, under Cardiac Arrest, documents, "It is possible this represented some transient arrhythmia that resulted in poor perfusion. He was undergoing a procedure at the time. Possibly had a vagal episode as well. He is certainly at risk for coronary disease although there is no objective evidence of an acute coronary syndrome", and the Cardiology PN on 11/06 documents, "Cardiac arrest: The etiology of his arrest still seems unclear. It seems that this was a PEA arrest. I do not believe this involved an acute coronary syndrome based on his presentation and angiography. He seems to have had some hypoperfusion and this is reflected in some his laboratory results. He does have some obstructive coronary disease, but appears to be asymptomatic. Preserved LV systolic function. No malignant arrhythmias. I do not believe he requires any additional cardiac evaluation", and the Cardiology PN on 11/07 documents, " Cardiac arrest: The etiology of his arrest still seems unclear. It seems that this was a PEA arrest. Uneventful recovery so far. Not related to an acute coronary syndrome", then, as of later Progress Notes and on Discharge Summary, there is documentation of, "Cardiopulmonary arrest s/p CPR with ROSC Arrest on 11/05 occurring during PICC line placement, unclear etiology possible transient arrhythmia versus vagal episode", and, "In brief, Mr. Alvarado is a 65-year-old male with history of DM2, PAD, and osteomyelitis admitted following cardiac arrest during a PICC line insertion", and, "Cardiopulmonary arrest with CRP with ROSC. Cath with mid-LAD and mid-RCA obstructive CASD with 70% stenosis. ASA, atorvastatin 40mg". Please specify below, in your clinical opinion, the most likely cause of the Cardiac Arrest. ( ) Most likely was due to an intraoperative/intraprocedural complication of the PICC insertion procedure ( ) Most likely was due to arrhythmia (X ) Most likely was due to a vagal episode. Please specify further below, regarding the meaning of vagal episode: ( X) vagal arrhythmia ( ) vasovagal attack (syncope) ( ) Other: Please Specify ( ) Most likely was due to Other: Please Specify ( ) Due to Unknown possible cause Physician's Response(s): Thank you Melony Rodriguez Principal Diagnosis: "that condition established after study, to be chiefly responsible for occasioning the admission of the patient to the hospital for care." Co-Existing Principal Diagnosis: "when two or more diagnoses equally meet the criteria for principal diagnosis as determined by the circumstances of admission, diagnostic work up, and/or therapy provided, and the Alphabetic Index, Tabular List, or another coding guideline does not provide sequencing direction, any one of the diagnoses may be sequenced first." "When the physician has documented what appears to be a current diagnosis in the body of the record, but has not included the diagnosis in the final diagnostic statement, the physician should be asked whether the diagnosis should be added." (Source Coding [facility] 2 QTR90. p3-4) AGUILAD
== END 2021-11-16 15:37 | disposition home health service (06) | DRG 264 ==
LOC: MTU 08:46 → 1E 10:35 → SUATTDRO 10:35 → 2S 11-08 21:55 → 3N 11-10 13:08

== ENCOUNTER 2022-03-04 20:01 | Inpatient (IN) ==
[2022-03-04] MEDS ORDERED: ACETAMINOPHEN 500 MG TAB PO STA (20:15)
--- NOTE | 2022-03-04 21:11 | XRay Report ---
XR chest 1V portable HISTORY: Foot infection. Difficulty swallowing. Nausea. Vomiting. COMPARISON: Chest 12/27/2021. FINDINGS: No pneumothorax. The cardiac silhouette remains top normal in size. There is mild diffuse i nterstitial thickening, unchanged. Small linear densities within the lingula/left lung base persist. No new focal lung consolidations to suggest a pneumonia. No evidence for pulmonary edema. IMPRESSION: Stable small linear densities within the lingula/left lung base. This may represent scarring. Otherwi se, no acute process within the chest. ACT 112: Negative or not required by law. Electronically signed by: Marcin Munguia M.D. 03/04/2022 9:08 PM
[2022-03-04] MEDS ORDERED: ACETAMINOPHEN 500 MG TAB ONE (23:26)
[2022-03-04 23:43] LABS: Basophils # (auto) 0.03 K/uL (0-0.2); Basophils % (auto) 0.3 %; Eosinophils # (auto) 0.02 K/uL (0-0.50); Eosinophils % (auto) 0.2 %; Hematocrit (blood only) 32.4 % (40.1-51.0); Hemoglobin 10.7 g/dl (14.0-18.0); Immature Granulocytes # (auto) 0.06 K/uL (0.00-0.02); Immature Granulocytes % (auto) 0.6 %; Lymphocytes # (auto) 0.84 K/uL (1.2-3.4); Lymphocytes % (auto) 8.2 %; Mean Corpuscular Hemoglobin 27.7 pg (25.0-34.0); Mean Corpuscular Volume 83.9 fL (80.0-100.0); Mean Platelet Volume 8.8 fL (9.4-12.4); Monocytes # (auto) 0.74 K/uL (0.24-0.82); Monocytes % (auto) 7.3 %; Neutrophils # (auto) 8.51 K/uL (1.4-6.5); Neutrophils % (auto) 83.4 %; Platelet Count 171 K/uL (130-400); RDW Standard Deviation 39.6 fL (36.4-46.3); Red Blood Count 3.86 M/uL (4.63-6.08)
[2022-03-05 00:20] LABS: Albumin Globulin Ratio 0.9 (0.9-2); Albumin Level 3.4 gm/dl (3.4-5.0); Bilirubin,Total 0.7 mg/dl (0.2-1.0); Calcium 8.9 mg/dl (8.5-10.1); Creatinine Clr Calc Pharmacy 52.3 ml/min; Est GFR (African American) 37.8 ml/min; Est GFR (Non-African American) 32.6 ml/min; Globulin 3.9 gm/dl (2.5-4.0); Potassium 4.7 mmol/L (3.5-5.1); Total Protein 7.3 gm/dl (6.0-8.3)
[2022-03-05] MEDS ORDERED: ONDANSETRON INJ 2 MG/ML 2 ML VIAL IV STA (00:54)
[2022-03-05 01:30] LABS: Appearance Urine Clear (Clear); Bacteria Urine Automated Negative (Negative); Bilirubin Urine Negative (Negative); Blood Urine 1+ (Negative); Color Urine Yellow; Glucose Urine UA 3+ (Negative); Ketones Urine Trace (Negative); Leukocyte Esterase Urine Negative (Negative); Nitrite Urine Negative (Negative); Protein Urine 3+ (Negative); Specific Gravity Urine 1.025 (1.000-1.030); Urobilinogen Urine Negative (Negative); pH Urine 5.5 (4.5-7.5)
[2022-03-05 02:06] LABS: Influenza A virus by PCR Negative (Neg); Influenza B virus by PCR Negative (Neg); RSV by PCR Negative (Neg); SARS CoV2 RNA(COVID-19) Ceph NEGATIVE (Negative)
[2022-03-05] MEDS ORDERED: PIPERACILLIN/TAZOBACTAM 4.5 GM in DEXTROSE 5% 100 ML IV ONE (02:28)
[2022-03-05] MEDS ORDERED: DAPTOmycin 625 MG in SYRINGE 0 ML IV SCH (02:30)
--- NOTE | 2022-03-05 02:51 | History & Physical Report ---
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 Between these findings and his XRs from earlier today, primary concern is developing osteomyelitis secondary to diabetic foot disease. Diabetic Ulcer - L 2nd Toe - Has been following with [facility] for this - most recent appointment on day of appointment. Unfortunately, wound has progressed compared to previous. - Work-up as follows: - XR from day of admission: "subtle findings suggestive of osteomyelitis involving the second distal phalanx Demineralization versus subtle marginal ero sions of the first metatarsal head on the oblique image." - Previous wound cultures reveal MRSA, coag-negative Staph, Bacteroides, Enterococcus, Prevotella - Thankfully no leukocytosis on arrival - BL Arterial Doppler in 07/2021 revealing moderate ASCVD within the lower extremities, but at the time normal ABIs ; possible stenosis in L femoral - Major concern based on appearance, XRs, and history is developing osteomyelitis - Add: CRP, ESR, and PCT to admission labs - Check MRI of L foot given physical exam and X-Ray - Pain: Tylenol > Oxycodone - WOCN consulted: appreciate recommendations while inpatient - Consider podiatry/orthopedic consult pending results of XR in the AM to determine outpatient/inpatient management needs - Continue Zosyn/Dapto started in the ED until more diagnostic information is obtained (2) PAD (peripheral artery disease): Plan: PAD - Arterial Doppler in 07/2021 revealing moderate ASCVD within the lower extremities, but at the time normal ABIs ; possible stenosis in L femoral - Continue statin, ASA as prescribed -- see below (3) Hypertension: Plan: HTN / HLD - BP well controlled with Lasix and amlodipine, follows with Nephro - Continue atorvastatin and ASA -- should consider intensifying statin to higher potency as outpatient given vascular burden and age (4) Depression: Plan: MDD - Continue Cymbalta (5) GERD (gastroesophageal reflux disease): Plan: GERD - Continue PPI (6) Uncontrolled diabetes mellitus, with long-term current use of insulin: Plan: ID-T2DM -- complicated by diabetic foot disease, diabetic nephropathy - A1c 6.9% in 11/2021 - Currently using Lantus 65 units qAM + per his report, 10U of Novolog in AM then ~10 in PM with sliding scale (doesn't remember correction factor) - Initiate: Lantus 45U qAM with SSI, CF 1U:30 and CR of 1U:10g CHO -- adjust as needed, ACHS checks ordered - Hold SGLT2i while inpatient - Rechekc A1c in AM (7) Nausea & vomiting: Plan: Nausea with Vomiting - Without red flags at present. Likely secondary to inflammatory state with suspected osteomyelitis vs. gastroenteritis vs. medication adverse effect (d oxycycline) - Improved with antiemetics. Zofran PRN - Will give 500cc of NSS - Monitor lytes, replete as needed - No indication for imaging at this time given abdominal exam and near resolution. 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 Patient was seen at wound care clinic earlier today for follow-up. He was noted to have worsening progression of his left toe wound. He was started on doxycycline. X- rays were obtained which demonstrated "subtle findings suggestive of osteomyelitis involving the second distal phalanx Demineralization versus subtle marginal erosions of the first metatarsal head on the oblique image. " He tells me that he was otherwise in his normal health up until about 1 to 2 days ago, which is when he developed some chills. He denies any fever or sweats. He said his appetite was normal until today, where he did not feel like eating. After his wound care visit, he did vomit shortly after taking the doxycycline, though nausea had been building beforehand. He proceeded to vomit 6-7 times as the evening went on, and reported to the ER for evaluation given his ill feeling, vomiting, and chills. He also notes that the pain in his foot has been building over the last couple days, it is normally at around a 5 out of 10, but it is more recently been a 7 out of 10. Medications reviewed and include amlodipine, aspirin, atorvastatin, doxycycline, duloxetine, empagliflozin, furosemide, insulin, metformin, pantoprazole, tamsulosin. He denies any use of alcohol or illicit substances. He has been taking his medications as prescribed. In the ED, patient was found to be mildly hypertensive to 140/70 and a fever with a T-max of 38.6. Labs demonstrated normocytic anemia at 10.7 (baseline usually around 12), BUN 37/creatinine 2.06 (baseline 1.61.8) ALP 127, urine with 3+ protein, 1+ blood. RSV, influenza, and COVID test negative. Chest x- ray demonstrating stable small linear densities within the lingula. He was g iven Tylenol and Zofran. Allergies Allergy/AdvReac Type Severity Reaction Status Date / Time No Known Allergies Allergy Verified 03/04/22 12:30 Home Medications Medication Instructions Recorded Confirmed Type lactobacillus combination no.8 3 3,000 mmu cells PO BID 06/12/20 03/04/22 History billion cell capsule (Adult Probiotic) aspirin 81 mg chewable tablet 81 mg PO QAM 07/26/20 03/04/22 History blood-glucose meter (Accu-Chek 08/23/20 03/04/22 History Guide Glucose Meter) lancets (Accu-Chek Fastclix Lancet 08/23/20 03/04/22 History Drum) FreeStyle Remigio 2 Tanana (flash #1 ea 01/24/21 03/04/22 Rx glucose scanning reader) FreeStyle Remigio 2 Sensor (flash #7 ea 01/24/21 03/04/22 Rx glucose sensor) BD Ultra-Fine Mini Pen Needle 31 #400 ea 06/07/21 03/04/22 Rx gauge x 3/16" (pen needle, diabetic) empagliflozin 25 mg tablet 25 mg PO DAILY #90 tabs 07/20/21 03/04/22 Rx ergocalciferol (vitamin D2) 1,250 1,250 mcg PO WK 08/07/21 03/04/22 History mcg (50,000 unit) capsule tamsulosin 0.4 mg capsule 0.4 mg PO HS 08/07/21 03/04/22 History blood sugar diagnostic (Accu-Chek #50 ea 10/01/21 03/04/22 Rx Guide test strips) atorvastatin 10 mg tablet 10 mg PO QPM #30 tabs 10/10/21 03/04/22 Rx duloxetine 20 mg capsule,delayed 20 mg PO BID #180 caps 10/10/21 03/04/22 Rx release (Cymbalta) insulin glargine 100 unit/mL (3 65 unit (0.65 mL) subcut QAM 90 10/16/21 03/04/22 Rx mL) subcutaneous pen (Basaglar days #60 mL KwikPen U-100 Insulin) insulin aspart U-100 100 unit/mL 80 unit subcut DAILY 10/23/21 03/04/22 History (3 mL) subcutaneous pen (Novolog Flexpen U-100 Insulin aspart) amlodipine 5 mg tablet (Norvasc) 10 mg PO QAM #30 tabs 11/16/21 03/04/22 Rx pantoprazole 40 mg tablet,delayed 40 mg PO BID #180 tabs 11/20/21 03/04/22 Rx release furosemide 20 mg tablet 20 mg PO QAM #90 tabs 12/25/21 03/04/22 Rx mecobalamin (vitamin B12) 1,000 1,000 mcg PO DAILY 01/17/22 03/04/22 History mcg lozenges sodium zirconium cyclosilicate 5 5 g PO DAILY #30 ea 01/24/22 03/04/22 Rx gram oral powder packet (Lokelma) metformin 500 mg tablet 500 mg PO BID 90 days #180 tabs 01/29/22 03/04/22 Rx polyethylene glycol 3350 17 17 g PO DAILY #510 grams 02/25/22 03/04/22 Rx gram/dose oral powder (Miralax) doxycycline hyclate 100 mg tablet 100 mg PO bid #28 tabs 03/04/22 03/04/22 Rx Past Med/Surg History Medical History (Updated 03/05/22 @ 03:59 by Jorge Contreras MD) Acquired hallux rigidus of right foot BPH loc w urin obs/LUTS (Unknown) Cardiopulmonary arrest with successful resuscitation Constipation Diabetes mellitus, type 2 IDDM Disc degeneration, lumbar Diverticulosis Eczema Fatigue GERD (gastroesophageal reflux disease) OCCASIONAL Internal hemorrhoids Morbid obesity Necrotizing fasciitis of ankle and foot S/P IV ANTIBIOTICS/PICC LINE/WOUND VAC DURING 02/2018 [facility] Osteomyelitis Pancreatitis ~ Psoriasis Sleep apnea NO DEVICE S/P UPPP Tubular adenoma of colon Surgical History History of adenoidectomy History of cataract surgery bilt History of cataract surgery History of cholecystectomy History of colonoscopy Colonoscopy 01/21/[address] Garg. History of incision and drainage Hx of I&D of mendel-rectal abscess History of tonsillectomy History of tooth extraction S/P foot surgery, left Status post uvulopalatopharyngoplasty Family History Mother Family history of diabetes mellitus Father History of alcoholism History of liver cancer Sister Cancer Denies family history of Ovarian cancer Prostate cancer Crohn's disease Breast cancer Colorectal cancer Social History Smoking Status: Never smoker Second Hand Exposure: No; Hx Alcohol Use: No Hx Substance Use: No Preferred Language: [place] Communication Ability: Effective Visual Impairment: No Limitations Hearing Ability: Normal Advanced Manufacturing Engineer Required: No Beliefs That Will Affect Care: None marital status: Current Living Situation: Alone Current Living Situation Comment: Lives with and dog current occupational status: employed 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 Feels Safe at Home: Yes Childhood Exposure to Second-Hand Smoke: Yes Diet Comment: "tries to feed me right, but sometimes it doesn't always happen" during the past year weight has: remained stable Physical Activity Frequency: Does not Exercise Seatbelt Use: never Assistive Devices: None Review of Systems Review of Systems: as per HPI Physical Exam Physical Exam: General: 66-year old male who is alert, oriented, and appears in no acute distress. HEENT: NCAT. - Eyes - Sclera are white, anicteric, and without injection. - Mouth - MMM - Neck - supple, no appreciable JVD Cardiac: Difficult exam given habitus. Normal rate and regular rhythm; S1 and S2 present with no murmurs, rubs, or gallops. Pulmonary: Good respiratory effort with symmetric expansion of the chest. No use of accessory muscles. Lungs were clear to auscultation bilaterally with no crackles or wheezes. Abdominal: Normoactive bowel sounds. Abdomen was soft, nondistended, and non- tender to palpation. Extremities: Upper and lower extremities are warm and well perfused. Exam of the L foot reveals absence of the great toe; distal aspect of second L toe reveals a superficial ulcer with mild amounts of pus and oozing blood. There is edema extending down this toe. There is no pain to palpation. Ankle strength 5/5. DP pulse 1+ on L. Psych: Well-developed, well-nourished, appropriately dressed for occasion. Behavior is cooperative and appropriate. Affect is WNL. Insight is appropriate. Results & Data Results & Data ([facility]) Vital Signs (Past 12 Hours) Vital Signs Temp Pulse Pulse Resp BP BP Pulse Ox 03/05/22 01:17 79 20 101/53 L 96 03/04/22 23:21 37.6 C H 75 18 133/71 95 03/04/22 20:11 38.6 C H 95 H 16 136/75 92 O2 Del Method 03/05/22 01:17 Room Air 03/04/22 23:21 Room Air 03/04/22 20:11 Room Air Supervising Physician Co-Signing Physician Notes Patient seen and examined, chart reviewed, case discussed with Dr. Contreras and I agree with the assessment and plan as above. In brief, patient is a 66yo male with history of DM, osteomyelitis s/p amputation of left great toe presenting with unhealing ulcer on 2nd toe of left foot - most likely osteomyelitis per X- ray obtained in clinic prior to arrival. On exam patient febrile upon arrival, HD stable, NAD Ulcer at tip of left great toe, no crepitus/bullae +S1/S2, regular, no m/r/g Lungs CTA Abd soft, NT/ND Labs and images reviewed Assessment/Plan -Follow cultures -Continue zosyn and daptomycin -Check MRI -Remainder of plan as above Resident Activity Tracking Resident Involvement: Resident Care Provided Care Provided: Adult [facility] Medicine
--- NOTE | 2022-03-05 04:21 | Billing Data ---
Date of Service March 05, 2022 Coding Level of Care Code 64295 Initial Inpt Care Lvl 3
--- NOTE | 2022-03-05 06:42 | Emergency Department Note ---
Impression & Plan Diabetic foot ulcer associated with type 2 diabetes mellitus, Osteomyelitis ED Provider Note CHIEF COMPLAINT: Nausea, left second toe infection HISTORY OF PRESENT ILLNESS: This 66-year-old male patient presents to the emergency department with complaints of an infection on the distal aspect of the left second toe. Patient notes that he is diabetic and is followed by the wound care clinic for an ulceration on the tip of this toe. He was started on antibiotics today as it seemed to be infected. Wound culture was taken. Patient took his doxycycline and shortly thereafter began to vomit. He did develop a chills and sweats sensation but did not take his temperature. Patient denies any shortness of breath, cough or chest discomfort. REVIEW OF SYSTEMS: A review of systems was performed with positives and pertinent negatives listed in the history of present illness. 10 systems were reviewed and are otherwise negative. ALLERGIES: see below MEDICATIONS: see below PMH: see below SOCIAL HISTORY: see below DDx: Viral syndrome, otitis, pharyngitis, pneumonia, influenza, meningitis, urinary tract infection, cellulitis, osteomyelitis, sepsis, bacteremia, as well as other pathologies. PHYSICAL EXAM: Vital signs reviewed. General: Chronically ill and somewhat disheveled obese 66-year-old male, in no significant distress. HEENT: No scleral icterus, PERRLA, neck supple. Atraumatic. Cardiovascular: Regular rate and rhythm, no extra sounds. Pulmonary: Clear to auscultation bilaterally, normal work of breathing. Abdomen: Soft, nontender, nondistended, positive bowel sounds. Musculoskeletal: Atraumatic, moderate peripheral edema. Status post amputation of the left great toe, second toe on the left foot with distal ulceration and previous debridement. No lymphangitic streaking appreciated. Neurologic: Patient awake alert and oriented x 3 Skin: Warm, dry, chronic venous stasis changes of the skin bilaterally. EMERGENCY DEPARTMENT COURSE/MDM: This patient was evaluated and appeared to be in no significant distress. Evaluation of the left great toe is concerning for diabetic foot ulcer. X-ray was performed and reveals changes consistent with osteomyelitis. Patient was medicated with IV Zosyn and Dapto. Wound culture has been performed previously had a wound care clinic. Patient does have an elevated sed rate and CRP. Patient's case was discussed with the hospitalist service to evaluate patient for admission and further management. MONITORING: An order for cardiac monitoring was placed and the patient is noted to be in a normal sinus rhythm at 65 beats per minute. RADIOLOGY: See below EKG: Normal sinus rhythm at [address] segments. No PVC, PAC. QTc is 423. DISPOSITION: Admission Past Med/Surg History Medical History (Updated 03/12/22 @ 07:55 by Kerri Pope MD) Acquired hallux rigidus of right foot BPH loc w urin obs/LUTS (Unknown) Cardiopulmonary arrest with successful resuscitation Constipation Diabetes mellitus, type 2 IDDM Disc degeneration, lumbar Diverticulosis Eczema Fatigue GERD (gastroesophageal reflux disease) OCCASIONAL Internal hemorrhoids Morbid obesity Necrotizing fasciitis of ankle and foot S/P IV ANTIBIOTICS/PICC LINE/WOUND VAC DURING 02/2018 [facility] ADMISSION Osteomyelitis Pancreatitis ~ Psoriasis Sleep apnea NO DEVICE S/P UPPP Tubular adenoma of colon Surgical History History of adenoidectomy History of cataract surgery bilt History of cataract surgery History of cholecystectomy History of colonoscopy Colonoscopy 01/21/[address] Garg. History of incision and drainage Hx of I&D of mendel-rectal abscess History of tonsillectomy History of tooth extraction S/P foot surgery, left Status post uvulopalatopharyngoplasty Family History Mother Family history of diabetes mellitus Father History of alcoholism History of liver cancer Sister Cancer Denies family history of Ovarian cancer Prostate cancer Crohn's disease Breast cancer Colorectal cancer Social History Smoking Status: Former smoker Second Hand Exposure: No; Hx Alcohol Use: No Hx Substance Use: No Preferred Language: Tristanian Communication Ability: Effective Visual Impairment: No Limitations Hearing Ability: Normal [employer] Team Member Required: No Beliefs That Will Affect Care: None marital status: Current Living Situation: Spouse Current Living Situation Comment: Lives with and dog current occupational status: employed 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 Feels Safe at Home: Yes Childhood Exposure to Second-Hand Smoke: Yes Diet Comment: "tries to feed me right, but sometimes it doesn't always happen" during the past year weight has: remained stable Physical Activity Frequency: Does not Exercise Seatbelt Use: never Assistive Devices: None Allergies Allergies Allergy/AdvReac Type Severity Reaction Status Date / Time No Known Allergies Allergy Verified 03/11/22 09:43 Home Meds Home Medications Medication Instructions Recorded Confirmed lactobacillus combination no.8 3 3,000 mmu cells PO BID 06/12/20 03/11/22 billion cell capsule (Adult Probiotic) aspirin 81 mg chewable tablet 81 mg PO QAM 07/26/20 03/11/22 blood-glucose meter (Accu-Chek 08/23/20 03/11/22 Guide Glucose Meter) lancets (Accu-Chek Fastclix Lancet 08/23/20 03/11/22 Drum) ergocalciferol (vitamin D2) 1,250 1,250 mcg PO WK 08/07/21 03/11/22 mcg (50,000 unit) capsule tamsulosin 0.4 mg capsule 0.4 mg PO HS 08/07/21 03/11/22 insulin aspart U-100 100 unit/mL 80 unit subcut DAILY 10/23/21 03/11/22 (3 mL) subcutaneous pen (Novolog Flexpen U-100 Insulin aspart) mecobalamin (vitamin B12) 1,000 1,000 mcg PO DAILY 01/17/22 03/11/22 mcg lozenges Previous Rx's Medication Instructions Recorded FreeStyle Remigio 2 [place] (flash #1 ea 01/24/21 glucose scanning reader) FreeStyle Remigio 2 Sensor (flash #7 ea 01/24/21 glucose sensor) BD Ultra-Fine Mini Pen Needle 31 #400 ea 06/07/21 gauge x 3/16" (pen needle, diabetic) empagliflozin 25 mg tablet 25 mg PO DAILY #90 tabs 07/20/21 blood sugar diagnostic (Accu-Chek #50 ea 10/01/21 Guide test strips) atorvastatin 10 mg tablet 10 mg PO QPM #30 tabs 10/10/21 duloxetine 20 mg capsule,delayed 20 mg PO BID #180 caps 10/10/21 release (Cymbalta) insulin glargine 100 unit/mL (3 65 unit (0.65 mL) subcut QAM 90 10/16/21 mL) subcutaneous pen (Basaglar days #60 mL KwikPen U-100 Insulin) amlodipine 5 mg tablet (Norvasc) 10 mg PO QAM #30 tabs 11/16/21 pantoprazole 40 mg tablet,delayed 40 mg PO BID #180 tabs 11/20/21 release furosemide 20 mg tablet 20 mg PO QAM #90 tabs 12/25/21 sodium zirconium cyclosilicate 5 5 g PO DAILY #30 ea 01/24/22 gram oral powder packet (Lokelma) metformin 500 mg tablet 500 mg PO BID 90 days #180 tabs 01/29/22 polyethylene glycol 3350 17 17 g PO DAILY #510 grams 02/25/22 gram/dose oral powder (Miralax) doxycycline hyclate 100 mg tablet 100 mg PO bid #28 tabs 03/04/22 aluminum-mag hydroxide-simethicone 10 ml PO TID #355 mL 03/06/22 400 mg-400 mg-40 mg/5 mL oral susp (Mylanta Maximum Strength) famotidine 20 mg tablet (Pepcid AC) 20 mg PO BID #30 tabs 03/06/22 Results & Data (ED) Vital Signs Vital Signs - 24 hr 03/04/22 20:11 03/04/22 23:21 03/05/22 01:17 Temperature 38.6 C H 37.6 C H Temperature Source Oral Oral Pulse Rate 95 H Pulse Rate [Finger] 75 79 Pulse Rhythm [Finger] Regular Pulse Strength [Finger] Normal Respiratory Rate 16 18 20 Respiratory Effort / Characteristics Non-Labored Spontaneous Non-Labored Spontaneous Non-Labored Respiratory Depth Normal Normal Normal Respiratory Pattern Regular Blood Pressure 136/75 Blood Pressure [Right Arm] 133/71 101/53 L Blood Pressure Mean 95 Blood Pressure Mean [Right Arm] 91 69 Blood Pressure Position [Right Arm] Sitting Lying Pulse Oximetry 92 95 96 Oxygen Delivery Method Room Air Room Air Room Air Sepsis Recent Fever Within 48 Hours Yes Sepsis New/Unexplained Change in Mental Status N/A Sepsis Action Taken by Nursing No Action Required 03/05/22 03:00 03/05/22 04:00 03/05/22 05:30 Temperature Temperature Source Pulse Rate Pulse Rate [Finger] 70 86 69 Pulse Rhythm [Finger] Regular Regular Regular Pulse Strength [Finger] Normal Normal Normal Respiratory Rate 18 18 18 Respiratory Effort / Characteristics Non-Labored Non-Labored Non-Labored Respiratory Depth Normal Normal Normal Respiratory Pattern Regular Regular Regular Blood Pressure Blood Pressure [Right Arm] 110/63 112/58 L 130/63 Blood Pressure Mean Blood Pressure Mean [Right Arm] 78 76 85 Blood Pressure Position [Right Arm] Lying Lying Lying Pulse Oximetry 95 98 95 Oxygen Delivery Method Room Air Room Air Room Air Sepsis Recent Fever Within 48 Hours Sepsis New/Unexplained Change in Mental Status Sepsis Action Taken by Intermediate Medications Current Medication List: was personally reviewed by me Laboratory Data Attestation: I reviewed the patient's lab results. Result diagrams: 03/06/22 10:12 03/06/22 10:12 Lab Results 03/04/22 03/04/22 03/04/22 Range/Units 23:20 23:20 23:20 WBC 10.20 (4.8-10.8) K/ul RBC 3.86 L (4.63-6.08) M/uL Hgb 10.7 L (14.0-18.0) g/dl Hct 32.4 L (40.1-51.0) % MCV 83.9 (80.0-100.0) fL MCH 27.7 (25.0-34.0) pg MCHC 33.0 (32.0-36.0) g/dL RDW Std Deviation 39.6 (36.4-46.3) fL RDW Coeff of Mejia 13.0 (11.5-14.5) % Plt Count 171 (130-400) K/uL MPV 8.8 L (9.4-12.4) fL Immature Gran % (Auto) 0.6 % Neut % (Auto) 83.4 % Lymph % (Auto) 8.2 % [place] % (Auto) 7.3 % Eos % (Auto) 0.2 % Baso % (Auto) 0.3 % Neut # (Auto) 8.51 H (1.4-6.5) K/uL Lymph # (Auto) 0.84 L (1.2-3.4) K/uL [place] # (Auto) 0.74 (0.24-0.82) K/uL Eos # (Auto) 0.02 (0-0.50) K/uL Baso # (Auto) 0.03 (0-0.2) K/uL Immature Gran # (Auto) 0.06 H (0.00-0.02) K/uL ESR 86 H (0-20) mm/hr Sodium 137 (136-145) mmol/L Potassium 4.7 (3.5-5.1) mmol/L Chloride 102 (98-107) mmol/L Carbon Dioxide 26 (21-32) mmol/L Anion Gap 9 (3-11) BUN 37 H (6-23) mg/dl Creatinine 2.06 H (0.6-1.4) mg/dl Est Cr Clr Drug Dosing 52.3 ml/min Est GFR ( Amer) 37.8 ml/min Est GFR (Non-Af Amer) 32.6 ml/min BUN/Creatinine Ratio 18.0 (10-20) Glucose 162 H (70-99(Fasting)) mg/dl Lactate (0.4-2.0) mmol/L Calcium 8.9 (8.5-10.1) mg/dl Total Bilirubin 0.7 (0.2-1.0) mg/dl AST 8 L (13-39) U/L ALT 6 L (7-52) U/L Alkaline Phosphatase 127 H (34-104) U/L C-Reactive Protein (0-0.5) mg/dl Total Protein 7.3 (6.0-8.3) gm/dl Albumin 3.4 (3.4-5.0) gm/dl Globulin 3.9 (2.5-4.0) gm/dl Albumin/Globulin Ratio 0.9 (0.9-2) Procalcitonin (0-0.5) ng/ml Urine Color Urine Appearance (Clear) Urine pH (4.5-7.5) Ur Specific [place] (1.000-1.030) Urine Protein (Negative) Urine Glucose (UA) (Negative) Urine Ketones (Negative) Urine Blood (Negative) Urine Nitrite (Negative) Urine Bilirubin (Negative) Urine Urobilinogen (Negative) Ur Leukocyte Esterase (Negative) Urine WBC (Auto) (0-5) /hpf Urine RBC (Auto) (0-4) /hpf U Hyaline Cast (Auto) (0-5) /lpf U Epithel Cells (Auto) (0-5) /lpf Urine Bacteria (Auto) (Negative) SARS-CoV-2 (PCR) (Negative) Influenza Type A (PCR) (Neg) Influenza Type B (PCR) (Neg) RSV (RT-PCR) (Neg) 03/05/22 03/05/2203/05/22 Range/Units 01:05 01:05 01:06 WBC (4.8-10.8) K/ul RBC (4.63-6.08) M/uL Hgb (14.0-18.0) g/dl Hct (40.1-51.0) % MCV (80.0-100.0) fL MCH (25.0-34.0) pg MCHC (32.0-36.0) g/dL RDW Std Deviation (36.4-46.3) fL RDW Coeff of Mejia (11.5-14.5) % Plt Count (130-400) K/uL MPV (9.4-12.4) fL Immature Gran % (Auto) % Neut % (Auto) % Lymph % (Auto) % [place] % (Auto) % Eos % (Auto) % Baso % (Auto) % Neut # (Auto) (1.4-6.5) K/uL Lymph # (Auto) (1.2-3.4) K/uL [place] # (Auto) (0.24-0.82) K/uL Eos # (Auto) (0-0.50) K/uL Baso # (Auto) (0-0.2) K/uL Immature Gran # (Auto) (0.00-0.02) K/uL ESR (0-20) mm/hr Sodium (136-145) mmol/L Potassium (3.5-5.1) mmol/L Chloride (98-107) mmol/L Carbon Dioxide (21-32) mmol/L Anion Gap (3-11) BUN (6-23) mg/dl Creatinine (0.6-1.4) mg/dl Est Cr Clr Drug Dosing ml/min Est GFR ( Amer) ml/min Est GFR (Non-Af Amer) ml/min BUN/Creatinine Ratio (10-20) Glucose (70-99(Fasting)) mg/dl Lactate 2.0 (0.4-2.0) mmol/L Calcium (8.5-10.1) mg/dl Total Bilirubin (0.2-1.0) mg/dl AST (13-39) U/L ALT (7-52) U/L Alkaline Phosphatase (34-104) U/L C-Reactive Protein 10.76 H (0-0.5) mg/dl Total Protein (6.0-8.3) gm/dl Albumin (3.4-5.0) gm/dl Globulin (2.5-4.0) gm/dl Albumin/Globulin Ratio (0.9-2) Procalcitonin 0.10 (0-0.5) ng/ml Urine Color Urine Appearance (Clear) Urine pH (4.5-7.5) Ur Specific [place] (1.000-1.030) Urine Protein (Negative) Urine Glucose (UA) (Negative) Urine Ketones (Negative) Urine Blood (Negative) Urine Nitrite (Negative) Urine Bilirubin (Negative) Urine Urobilinogen (Negative) Ur Leukocyte Esterase (Negative) Urine WBC (Auto) (0-5) /hpf Urine RBC (Auto) (0-4) /hpf U Hyaline Cast (Auto) (0-5) /lpf U Epithel Cells (Auto) (0-5) /lpf Urine Bacteria (Auto) (Negative) SARS-CoV-2 (PCR) (Negative) Influenza Type A (PCR) (Neg) Influenza Type B (PCR) (Neg) RSV (RT-PCR) (Neg) 03/05/22 03/05/22 Range/Units 01:12 01:14 WBC (4.8-10.8) K/ul RBC (4.63-6.08) M/uL Hgb (14.0-18.0) g/dl Hct (40.1-51.0) % MCV (80.0-100.0) fL MCH (25.0-34.0) pg MCHC (32.0-36.0) g/dL RDW Std Deviation (36.4-46.3) fL RDW Coeff of Mejia (11.5-14.5) % Plt Count (130-400) K/uL MPV (9.4-12.4) fL Immature Gran % (Auto) % Neut % (Auto) % Lymph % (Auto) % [place] % (Auto) % Eos % (Auto) % Baso % (Auto) % Neut # (Auto) (1.4-6.5) K/uL Lymph # (Auto) (1.2-3.4) K/uL [place] # (Auto) (0.24-0.82) K/uL Eos # (Auto) (0-0.50) K/uL Baso # (Auto) (0-0.2) K/uL Immature Gran # (Auto) (0.00-0.02) K/uL ESR (0-20) mm/hr Sodium (136-145) mmol/L Potassium (3.5-5.1) mmol/L Chloride (98-107) mmol/L Carbon Dioxide (21-32) mmol/L Anion Gap (3-11) BUN (6-23) mg/dl Creatinine (0.6-1.4) mg/dl Est Cr Clr Drug Dosing ml/min Est GFR ( Amer) ml/min Est GFR (Non-Af Amer) ml/min BUN/Creatinine Ratio (10-20) Glucose (70-99(Fasting)) mg/dl Lactate (0.4-2.0) mmol/L Calcium (8.5-10.1) mg/dl Total Bilirubin (0.2-1.0) mg/dl AST (13-39) U/L ALT (7-52) U/L Alkaline Phosphatase (34-104) U/L C-Reactive Protein (0-0.5) mg/dl Total Protein (6.0-8.3) gm/dl Albumin (3.4-5.0) gm/dl Globulin (2.5-4.0) gm/dl Albumin/Globulin Ratio (0.9-2) Procalcitonin (0-0.5) ng/ml Urine Color Yellow Urine Appearance Clear (Clear) Urine pH 5.5 (4.5-7.5) Ur Specific [place] 1.025 (1.000-1.030) Urine Protein 3+ H (Negative) Urine Glucose (UA) 3+ H (Negative) Urine Ketones Trace H (Negative) Urine Blood 1+ H (Negative) Urine Nitrite Negative (Negative) Urine Bilirubin Negative (Negative) Urine Urobilinogen Negative (Negative) Ur Leukocyte Esterase Negative (Negative) Urine WBC (Auto) 1-5 (0-5) /hpf Urine RBC (Auto) 5-10 H (0-4) /hpf U Hyaline Cast (Auto) 1-5 (0-5) /lpf U Epithel Cells (Auto) 5-10 H (0-5) /lpf Urine Bacteria (Auto) Negative (Negative) SARS-CoV-2 (PCR) NEGATIVE (Negative) Influenza Type A (PCR) Negative (Neg) Influenza Type B (PCR) Negative (Neg) RSV (RT-PCR) Negative (Neg) Administered Medications Discontinued Medications Acetaminophen (Acetaminophen 500 Mg Tab) 1,000 mg PO NOW STA Stop: 03/04/22 20:16 Last Admin: 03/04/22 23:27 Dose: 1,000 mg Documented By: RITIKA Acetaminophen (Acetaminophen 500 Mg Tab) Confirm Administered Dose 1,000 mg .R OUTE .STK-MED ONE Stop: 03/04/22 23:27 Last Admin: 03/04/22 23:27 Dose: Not Given Documented By: RITIKA Al Hydrox/Mg Hydrox/Simethicone (Aluminum/Magnesium/Simeth (Maalox Max) 30 Ml Udc) 15 ml PO AC LIANA Stop: 04/04/22 16:29 Last Admin: 03/06/22 13:36 Dose: 15 ml Documented By: Admin: 03/06/22 09:35 Dose: 15 ml Documented By: Admin: 03/05/22 18:45 Dose: 15 ml Documented By: DONATO Amlodipine Besylate (Amlodipine Besylate 5 Mg Tab) [facility] [place] Stop: 04/04/22 08:59 Last Admin: 03/06/22 09:22 Dose: 10 mg Documented By: Admin: 03/05/22 09:40 Dose: 10 mg Documented By: DONATO Aspirin (Aspirin 81 Mg Ectab) 81 [facility] [place] Stop: 04/04/22 08:59 Last Admin: 03/06/22 09:21 Dose: 81 mg Documented By: Admin: 03/05/22 09:39 Dose: 81 mg Documented By: DONATO Atorvastatin Calcium (Atorvastatin 10 Mg Tab) 10 mg PO QPM LIANA Stop: 04/04/22 20:59 Last Admin: 03/05/22 20:56 Dose: 10 mg Documented By: ASHUTOHS Doxycycline Hyclate (Doxycycline Hyclate 100 Mg Cap) 100 mg PO BID [facility] Stop: 04/17/22 08:59 Last Admin: 03/06/22 09:21 Dose: 100 mg Documented By: PARTH Duloxetine HCl (Duloxetine Hcl 20 Mg Cap) 20 mg PO BID LIANA Stop: 04/04/22 08:59 Last Admin: 03/06/22 09:21 Dose: 20 mg Documented By: Admin: 03/05/22 20:57 Dose: 20 mg Documented By: Admin: 03/05/22 09:42 Dose: 20 mg Documented By: DONATO Enoxaparin Sodium (Enoxaparin Inj 40 Mg/0.4 Ml Syr) 40 mg SQ Q12H LIANA Stop: 04/04/22 08:59 Last Admin: 03/06/22 09:22 Dose: 40 mg Documented By: Admin: 03/05/22 20:57 Dose: 40 mg Documented By: Admin: 03/05/22 09:43 Dose: 40 mg Documented By: DONATO Famotidine (Famotidine 20 Mg Tab) 20 mg PO BID LIANA Stop: 04/04/22 20:59 Last Admin: 03/06/22 09:22 Dose: 20 mg Documented By: Admin: 03/05/22 20:57 Dose: 20 mg Documented By: ASHUTOSH Furosemide (Furosemide 20 Mg Tab) 20 mg PO QAM LIANA Stop: 04/04/22 08:59 Last Admin: 03/06/22 09:21 Dose: 20 mg Documented By: Admin: 03/05/22 09:41 Dose: 20 mg Documented By: DONATO Piperacillin Sod/Tazobactam (Sod 4.5 gm/ Dextrose) 120 mls @ 200 mls/hr IV NOW ONE; Protocol Stop: 03/05/22 03:03 Last Infusion: 03/05/22 03:46 Dose: 0 mls/hr Documented By: Admin: 03/05/22 03:10 Dose: 200 mls/hr Documented By: WINSTON Daptomycin 625 mg/ Syringe 12.5 mls @ 6.25 mls/min IV Q24H LIANA; Protocol Stop: 04/16/22 02:29 Last Admin: 03/05/22 03:10 Dose: 6.25 mls/min Documented By: WINSTON Sodium Chloride (Nss 1000ml) 500 mls @ 80 mls/hr IV .Q6H15M LIANA Stop: 03/05/22 13:59 Last Infusion: 03/05/22 15:51 Dose: 0 mls/hr Documented By: Admin: 03/05/22 09:36 Dose: 80 mls/hr Documented By: DONATO Piperacillin Sod/Tazobactam (Sod 4.5 gm/ Dextrose) 120 mls @ 30 mls/hr IV Q8H LIANA; Protocol Stop: 03/12/22 07:59 Last Infusion: 03/05/22 13:42 Dose: 0 mls/hr Documented By: Admin: 03/05/22 09:39 Dose: 30 mls/hr Documented By: DONATO Insulin Aspart (Insulin Aspart Per Unit) 0 units SC ACHS LIANA Stop: 04/04/22 07:29 Last Admin: 03/06/22 13:26 Dose: 5 units Documented By: PARTH Co-signed By: JOSIAH Admin: 03/06/22 09:24 Dose: 8 units Documented By: PARTH Co-signed By: NANCY Admin: 03/05/22 21:03 Dose: 4 units Documented By: ASHUTOSH Co-signed By: RONNIE Admin: 03/05/22 18:45 Dose: 9 units Documented By: DONATO Co-signed By: LUCA Admin: 03/05/22 13:41 Dose: 7 units Documented By: DONATO Co-signed By: JOSIAH Admin: 03/05/22 07:49 Dose: 3 units Documented By: CHELLE Co-signed By: THEODORE Insulin Glargine (Lantus Per Unit Charge) 45 units SQ QAM [facility] Stop: 04/04/22 08:59 Last Admin: 03/06/22 09:31 Dose: 45 units Documented By: PARTH Co-signed By: NANCY Admin: 03/05/22 09:35 Dose: 45 units Documented By: DONATO Co-signed By: LUCA Lactobacillus Acidophilus (Advanced Probiotic 1250 Mg Capsule) 2 cap PO BIDM LIANA Stop: 04/04/22 07:59 Last Admin: 03/06/22 09:21 Dose: 2 cap Documented By: Admin: 03/05/22 18:45 Dose: 2 cap Documented By: Admin: 03/05/22 09:41 Dose: 2 cap Documented By: DONATO Ondansetron HCl (Ondansetron Inj 2 Mg/Ml 2 Ml Vial) 4 mg IV NOW STA Stop: 03/05/22 00:55 Last Admin: 03/05/22 01:09 Dose: 4 mg Documented By: WINSTON Ondansetron HCl (Ondansetron Inj 2 Mg/Ml 2 Ml Vial) 4 mg IV Q6H PRN PRN Reason: Nausea And Vomiting Stop: 04/04/22 07:28 Last Admin: 03/05/22 08:26 Dose: 4 mg Documented By: SARAH Pantoprazole Sodium (Pantoprazole 40 Mg Tab) 40 mg PO BID LIANA Stop: 04/04/22 08:59 Last Admin: 03/06/22 09:22 Dose: 40 mg Documented By: Admin: 03/05/22 20:56 Dose: 40 mg Documented By: Admin: 03/05/22 09:40 Dose: 40 mg Documented By: DONATO Polyethylene Glycol (Polyethylene (Miralax) 17 Gm Pack) 17 gm PO DAILY LIANA Stop: 04/04/22 08:59 Last Admin: 03/06/22 09:35 Dose: 17 gm Documented By: Admin: 03/05/22 09:42 Dose: 17 gm Documented By: DONATO Sodium Zirconium Cyclosilicate (Sodium Zirconium Cyclosilicate 10 Gm Packet) 5 gm PO DAILY LIANA Stop: 04/04/22 08:59 Last Admin: 03/05/22 14:05 Dose: Not Given Documented By: DONATO Sodium Zirconium Cyclosilicate (Sodium Zirconium Cyclosilicate 10 Gm Packet) 5 gm PO HS LIANA Stop: 04/04/22 20:59 Last Admin: 03/05/22 20:55 Dose: 5 gm Documented By: ASHUTOSH Tamsulosin HCl (Tamsulosin Hcl 0.4 Mg Cap) 0.4 mg PO HS LIANA Stop: 04/04/22 20:59 Last Admin: 03/05/22 20:56 Dose: 0.4 mg Documented By: ASHUTOSH Imaging Data Radiologist's Impression: Chest X-Ray 03/04/22 20:15 XR chest 1V portable HISTORY: Foot infection. Difficulty swallowing. Nausea. Vomiting. COMPARISON: Chest 12/27/2021. FINDINGS: No pneumothorax. The cardiac silhouette remains top normal in size. There is mild diffuse interstitial thickening, unchanged. Small linear densities within the lingula/left lung base persist. No new focal lung consolidations to suggest a pneumonia. No evidence for pulmonary edema. IMPRESSION: Stable small linear densities within the lingula/left lung base. This may represent scarring. Otherwise, no acute process within the chest. ACT 112: Negative or not required by law. Electronically signed by: Marcin Munguia M.D. 03/04/2022 9:08 PM Blood Pressure Blood Pressure Findings: Elevated blood pressure Blood Pressure Disposition: further management by hospitalist Discharge Plan Visit Data Chief Complaint: Nausea Stated Complaint: toe infection, nausea, low sugar, vomit, dizzy ED Provider: Kerri Pope Discharge Problem: Diabetic foot ulcer associated with type 2 diabetes mellitus, Osteomyelitis Patient Disposition: Admitted As Inpatient Discharge Instructions Interventions: ED Discharge Assessment Last Done: 03/05/22 07:15
[2022-03-05] MEDS ORDERED: GLUCOSE 10 TAB/TUBE PO PRN (07:29)
[2022-03-05] MEDS ORDERED: GLUCOSE 40% GEL 15 GM TUBE PO PRN (07:29)
[2022-03-05] MEDS ORDERED: CARBOHYDRATES FOR HYPOGLYCEMIA PO PRN (07:29)
[2022-03-05] MEDS ORDERED: DEXTROSE 50% 50 ML SYRINGE IV PRN (07:29)
[2022-03-05] MEDS ORDERED: ACETAMINOPHEN 325 MG TAB PO PRN (07:29)
[2022-03-05] MEDS ORDERED: ONDANSETRON INJ 2 MG/ML 2 ML VIAL IV PRN (07:29)
[2022-03-05] MEDS ORDERED: oxyCODONE HCL IR 5 MG TAB (IMMEDIATE RELEASE) PO PRN (07:29)
[2022-03-05] MEDS ORDERED: GLUCAGON FOR INJ 1 MG VIAL SQ PRN (07:29)
[2022-03-05] MEDS ORDERED: SODIUM CHLORIDE 0.9% 1000ML 500 ML IV SCH (07:45)
[2022-03-05] MEDS: INSULIN ASPART PER UNIT SC SCH ×4 (07:49→21:03)
[2022-03-05] MEDS ORDERED: PIPERACILLIN/TAZOBACTAM 4.5 GM in DEXTROSE 5% 100 ML IV SCH (08:00)
[2022-03-05] MEDS ORDERED: SODIUM ZIRCONIUM CYCLOSILICATE 10 GM PACKET PO SCH ×2 (09:00→21:00)
--- NOTE | 2022-03-05 09:17 | Electrocardiogram Report ---
Test Reason : Blood Pressure : / mmHG Vent. Rate : 077 BPM Atrial Rate : 077 BPM P-R Int : 150 ms QRS Dur : 092 ms QT Int : 374 ms P-R-T Axes : 066 -08 066 degrees QTc Int : 423 ms Normal sinus rhythm Normal ECG When compared with ECG of 03-DEC-2021 10:27, No significant change was found Confirmed by Devang Franco ([id number]) on 03/05/2022 9:17:23 AM Referred By: REFERRED SELF Confirmed By:Jae Franco
[2022-03-05] MEDS: LANTUS PER UNIT CHARGE SQ SCH (09:35)
[2022-03-05] MEDS: ASPIRIN 81 MG ECTAB PO SCH (09:39)
[2022-03-05] MEDS: PANTOprazole 40 MG TAB PO SCH ×2 (09:40→20:56)
[2022-03-05] MEDS: amLODIPine BESYLATE 5 MG TAB PO SCH (09:40)
[2022-03-05] MEDS: ADVANCED PROBIOTIC 1250 MG CAPSULE PO SCH ×2 (09:41→18:45)
[2022-03-05] MEDS: FUROSEMIDE 20 MG TAB PO SCH (09:41)
[2022-03-05] MEDS: DULoxetine HCL 20 MG CAP PO SCH ×2 (09:42→20:57)
[2022-03-05] MEDS: POLYETHYLENE (MIRALAX) 17 GM PACK PO SCH (09:42)
[2022-03-05] MEDS: ENOXAPARIN INJ 40 MG/0.4 ML SYR SQ SCH ×2 (09:43→20:57)
--- NOTE | 2022-03-05 11:55 | Magnetic Resonance Report ---
MR foot LT w/o con HISTORY: 66 years-old Male diabetic foot dz, worsening wound L 2nd toe chronic left foot pain with p ossible osteomyelitis of the second toe COMPARISON: Radiographs 03/04/2022 TECHNIQUE: Multiplanar multisequence MRI of the left foot was obtained without the use of IV contrast . FINDINGS: Study is motion degraded. Additionally, susceptibility artifact secondary to the metallic foreign bod y in the plantar forefoot limits the exam. There is diffuse subcutaneous edema of the foot, most pronounced dorsally. Atrophy with edema of the musculature, likely secondary to chronic denervation changes. No drainable fluid collection identifie d. Chronic deformity with prior resection cortical thickening of the fifth metatarsal. Mild multifoca l osteoarthritis. No acute fracture or dislocation identified. Section of the great toe at the level of the metatarsal phalangeal joint. There is soft tissue edema at the resection site with trace fluid. Subcortical cystic changes with marginal spurring of the firs t metatarsal head. There is decreased T1 and increased T2/STIR signal involving the second distal pha lanx with cortical indistinctness. There is extension of the metatarsal-phalangeal joints. Scattered subcortical cystic changes of the midfoot and midfoot forefoot junction. The tendons and ligaments ar e not well evaluated secondary to motion degradation. IMPRESSION: 1. Limited exam. 2. Findings are again suggestive of osteomyelitis involving the second distal phalanx. 3. Chronic denervation changes with suggested cellulitis. No abscess identified. 4. Additional chronic findings as above. ACT 112: Negative or not required by law. The above report was generated using voice recognition software. It may contain grammatical, syntax o r spelling errors. Electronically signed by: Giovanni Moreno M.D. 03/05/2022 11:54 AM
[2022-03-05] MEDS ORDERED: Nursing to Pharmacy Communication SCH (12:00)
--- NOTE | 2022-03-05 17:53 | Communication Note ---
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 Eating lunch. Sat well. A little bit nauseated but no vomiting. He notes that he suspects it relates to the doxycyclinehas been on it before, but took it on a relatively empty stomach. We discussed risks and benefits of continuing doxycycline versus alternate antibioticgiven that his foot osteomyelitis has been an ongoing issue, it would be very useful to be able to continue doxycyclineto that end we both agreed to try symptomatic control with the nausea, regular diet, doxycycline with food, an d then home as long as he is doing okay with p.o. intake and p.o. doxycycline. If he is not able to take p.o., revisit, if he is not able to tolerate Doxy, revisit other alternate antibiotics. Patient and in agreement. Of notehe came to the hospital really almost purely for the nausea and vomiting, the foot wound has been a chronic ongoing issue. MRI noted. outpt wound f/u
[2022-03-05] MEDS: ALUMINUM/MAGNESIUM/SIMETH (MAALOX MAX) 30 ML UDC PO SCH (18:45)
[2022-03-05] MEDS: FAMOTIDINE 20 MG TAB PO SCH (20:57)
[2022-03-05] MEDS ORDERED: ATORVASTATIN 10 MG TAB PO SCH (21:00)
[2022-03-05] MEDS ORDERED: TAMSULOSIN HCL 0.4 MG CAP PO SCH (21:00)
[2022-03-06] MEDS ORDERED: DOXYCYCLINE HYCLATE 100 MG CAP PO SCH (09:00)
[2022-03-06] MEDS: DULoxetine HCL 20 MG CAP PO SCH (09:21)
[2022-03-06] MEDS: ADVANCED PROBIOTIC 1250 MG CAPSULE PO SCH (09:21)
[2022-03-06] MEDS: FUROSEMIDE 20 MG TAB PO SCH (09:21)
[2022-03-06] MEDS: ASPIRIN 81 MG ECTAB PO SCH (09:21)
[2022-03-06] MEDS: ENOXAPARIN INJ 40 MG/0.4 ML SYR SQ SCH (09:22)
[2022-03-06] MEDS: amLODIPine BESYLATE 5 MG TAB PO SCH (09:22)
[2022-03-06] MEDS: FAMOTIDINE 20 MG TAB PO SCH (09:22)
[2022-03-06] MEDS: PANTOprazole 40 MG TAB PO SCH (09:22)
[2022-03-06] MEDS: INSULIN ASPART PER UNIT SC SCH ×2 (09:24→13:26)
[2022-03-06] MEDS: LANTUS PER UNIT CHARGE SQ SCH (09:31)
[2022-03-06] MEDS: ALUMINUM/MAGNESIUM/SIMETH (MAALOX MAX) 30 ML UDC PO SCH ×2 (09:35→13:36)
[2022-03-06] MEDS: POLYETHYLENE (MIRALAX) 17 GM PACK PO SCH (09:35)
[2022-03-06 10:35] LABS: Basophils # (auto) 0.05 K/uL (0-0.2); Basophils % (auto) 0.6 %; Eosinophils # (auto) 0.17 K/uL (0-0.50); Eosinophils % (auto) 2.1 %; Hematocrit (blood only) 31.3 % (40.1-51.0); Hemoglobin 10.3 g/dl (14.0-18.0); Immature Granulocytes # (auto) 0.05 K/uL (0.00-0.02); Immature Granulocytes % (auto) 0.6 %; Lymphocytes # (auto) 1.28 K/uL (1.2-3.4); Lymphocytes % (auto) 15.9 %; Mean Corpuscular Hemoglobin 27.7 pg (25.0-34.0); Mean Corpuscular Hgb Conc 32.9 g/dL (32.0-36.0); Mean Corpuscular Volume 84.1 fL (80.0-100.0); Mean Platelet Volume 8.8 fL (9.4-12.4); Monocytes # (auto) 0.98 K/uL (0.24-0.82); Monocytes % (auto) 12.2 %; Neutrophils # (auto) 5.52 K/uL (1.4-6.5); Neutrophils % (auto) 68.6 %; Platelet Count 163 K/uL (130-400); RDW Coefficient of Variation 13.1 % (11.5-14.5); Red Blood Count 3.72 M/uL (4.63-6.08); White Blood Count 8.05 K/ul (4.8-10.8)
[2022-03-06 10:47] LABS: Estimated Average Glucose 169 mg/dl; Hemoglobin A1C 7.5 % (4.5-5.6)
[2022-03-06 11:05] LABS: BUN Creatinine Ratio 18.8 (10-20); C Reactive Protein 15.36 mg/dl (0-0.5); Calcium 8.6 mg/dl (8.5-10.1); Creatinine Clr Calc Pharmacy 48.1 ml/min; Est GFR (African American) 34.1 ml/min; Est GFR (Non-African American) 29.5 ml/min; Potassium 4.4 mmol/L (3.5-5.1)
--- NOTE | 2022-03-06 18:46 | Discharge Summary ---
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 Patient was seen at wound care clinic earlier today for follow-up. He was noted to have worsening progression of his left toe wound. He was started on doxycycline. X- rays were obtained which demonstrated "subtle findings suggestive of osteomyelitis involving the second distal phalanx Demineralization versus subtle marginal erosions of the first metatarsal head on the oblique image. " He tells me that he was otherwise in his normal health up until about 1 to 2 days ago, which is when he developed some chills. He denies any fever or sweats. He said his appetite was normal until today, where he did not feel like eating. After his wound care visit, he did vomit shortly after taking the doxycycline, though nausea had been building beforehand. He proceeded to vomit 6-7 times as the evening went on, and reported to the ER for evaluation given his ill feeling, vomiting, and chills. He also notes that the pain in his foot has been building over the last couple days, it is normally at around a 5 out of 10, but it is more recently been a 7 out of 10. Medications reviewed and include amlodipine, aspirin, atorvastatin, doxycycline, duloxetine, empagliflozin, furosemide, insulin, metformin, pantoprazole, tamsulosin. He denies any use of alcohol or illicit substances. He has been taking his medications as prescribed. In the ED, patient was found to be mildly hypertensive to 140/70 and a fever with a T-max of 38.6. Labs demonstrated normocytic anemia at 10.7 (baseline usually around 12), BUN 37/creatinine 2.06 (baseline 1.61.8) ALP 127, urine with 3+ protein, 1+ blood. RSV, influenza, and COVID test negative. Chest x-ray demonstrating stable small linear densities within the lingula. He was given Tylenol and Zofran. Principal Diagnosis Nausea and vomitingdoxycycline side effect Discharge Exam General he is awake and alert pleasant no distress. HEENT normocephalic atraumatic mucous membranes moist. Breathing unlabored no accessory muscle use good effort. Skin shows no rashes no pallor or icterus. Neuro without focal deficits. Toe swollen with black at the tip nontender but he does not have much sensation at all foot without tracking erythema warmth tenderness etc. no crepitus. Abdomen soft nondistended nontender no masses organomegaly no guarding rebound or rigidity Discharge Data Allergies Allergy/AdvReac Type Severity Reaction Status Date / Time No Known Allergies Allergy Verified 03/04/22 12:30 Consultations 03/05/22 02:30 ED Decision to Admit Stat Ordered Studies 03/05/22 03:29 MRI Foot [MR foot LT w/o con] Routine Hospital Course (1) Nausea & vomiting: Nausea with Vomiting -Presented with intractable nausea and vomitingafter review of history, seems to have been related to taking doxycycline on a relatively empty stomach. After discussion of risk and benefit, and the fact that he had tolerated lunch okaywe will continue to follow him through the next morning (through 3 full meals of regular foodall of which he tolerated without nausea or vomiting), as well as another dose of doxycycline with food to ensure tolerability. He felt good, and was able to go home. As outlined below with diabetic foot infectionwe agreed that it would probably be better to be able to try to keep him on the d oxycycline given the complexity of his foot infection, rather than completely writing it off as intolerable after 1 episode of nausea. -Symptomatically treated with his twice daily Protonix, and escalated to twice daily Pepcid and 3 times daily Mylantadischarged home on all of the above. In a week or so, drop with the Mylanta, in about 2 weeks try to drop the Pepcid. (2) Diabetic ulcer of toe of left foot: Toe examines very concerning, MRI certainly shows osteomyelitisand we discussed that it seems quite probable that the course of treatment for this toe ulcer and osteomyelitis would likely end an amputation. That said, he has a good outpatient team with the wound clinic and a grain buyer who knows him well, there is no uncontrolled cellulitis/sepsis, and he prefers to have this continue to be followed as an outpatientgiven that he is able to tolerate the doxycycline, he has a podiatry appointment tomorrow, and he is not septicthis all seems very reasonable. (3) PAD (peripheral artery disease): PAD - Arterial Doppler in 07/2021 revealing moderate ASCVD within the lower extremities, but at the time normal ABIs ; possible stenosis in L femoral - Continue statin, ASA (4) Hypertension: HTN / HLD - BP well controlled with Lasix and amlodipine, follows with Nephro - Continue atorvastatin and ASA -- should consider intensifying statin to higher potency as outpatient given vascular burden and agewill defer to PCP (5) Depression: MDD - Continue Cymbalta (6) GERD (gastroesophageal reflux disease): GERD - Continue PPI (7) Uncontrolled diabetes mellitus, with long-term current use of insulin: ID-T2DM -- complicated by diabetic foot disease, diabetic nephropathy - A1c 7.5% (8) CKD (chronic kidney disease): 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 PPX: Lovenox q12 Diet: CC Total Time Total Time Spent Total Time Spent (In Minutes): Less than 30 Discharge Plan Discharge Items Patient Disposition: Home - Self-Care Reason For Visit: NAUSEA, WORSENING L TOE INFECTION Discharge Diagnosis: nausea Activity: Resume your previous activity Non-emergency contact: Primary Care Provider and Specialist Call non-emergency contact if: you have any medication questions and your symptoms worsen Follow-up/Referrals: Dora Sales MD [Primary Care Provider] - 03/11/22 1:00 pm Diet: Carb Consistent or DM2 and Low Sodium (2gm) Addtl Attending Provider Instructions: Nausea and vomiting -The way your situation is played out, I suspect you/your are rightthat probably the doxycycline was what led to the nausea and vomitingbut more completely that it was in the context of taking it on a relatively empty stomach. -Given that you have been eating/drinking well, and tolerated a dose of the doxycycline this morning, and gets very safe to send you home with that as your continued treatment -Given that your stomach was so upset, and given the doxycycline is a bit notorious for upsetting the stomachI would definitely recommend taking it with food. For the next week, in addition to your usual twice a day Protonix (pantoprazole) we will also have you take Pepcid (famotidine) twice a day, and Mylanta 10 mL at each meal -After a week, we can have you drop the Mylanta, and in 2 weeks hopefully drop the pepcid (Famotidine) and be back down to just your twice a day Protonix -If anything is worsening, obviously call Dr. Sales for further directions/a "course correction" Foot infection -As we discussed, it is certainly concerning that you have an ongoing foot infection and the bone appears to be infected. My biggest concern is that the toe may need to come off. Obviously this will be a judgment call that better comes from Dr. Disla and the wound clinic. While it is a concerning situation, fortunately we are not dealing with anything "hyperacute" such as a bad surrounding skin infection or septic pictureto that end it is certainly safe for you to go home, doxycycline tends to provide pretty nice coverage for these kind of infections, and has a follow-up with podiatry tomorrow, she and the wound clinic can guide this further have repeat labwork (CBC, BMP, CRP) drawn early next week Pending Studies at Discharge: No Stand-Alone Forms: My [facility], Smoking Cessation Medications and DC Order Prescriptions: New famotidine [Pepcid AC] 20 mg tablet 20 mg PO BID Qty: 30 0RF alum-mag hydroxide-simeth [Mylanta Maximum Strength] 400-400-40 mg/5 mL suspension 10 ml PO TID Qty: 355 0RF Continued doxycycline hyclate 100 mg tablet 100 mg PO bid Qty: 28 0RF aspirin 81 mg tablet,chewable 81 mg PO QAM (DME) FreeStyle Remigio [address] Misc See Rx Instructions .Route Qty: 1 0RF Rx Instructions: Use to monitor blood sugars daily (DME) FreeStyle Remigio 2 Sensor Kit See Rx Instructions .Route Qty: 7 3RF Rx Instructions: Change sensor every 14 days (DME) pen needle, diabetic [BD Ultra-Fine Mini Pen Needle] 31 gauge x 3/16" needle See Dose Instructions .ROUTE .MEDSUPPLY Qty: 400 3RF Rx Instructions: use 4 needles daily empagliflozin 25 mg tablet 25 mg PO DAILY Qty: 90 3RF (DME) Accu-Chek Guide test strips Strip See Rx Instructions .ROUTE .MEDSUPPLY Qty: 50 3RF Rx Instructions: test blood sugar 1 x daily atorvastatin 10 mg tablet 10 mg PO QPM Qty: 30 5RF Hold Instructions: interferes with antibiotics duloxetine [Cymbalta] 20 mg capsule,delayed release(DR/EC) 20 mg PO BID Qty: 180 2RF Basaglar KwikPen U-100 Insulin 100 unit/mL (3 mL) insulin pen 65 unit SQ QAM 90 Days Qty: 60 3RF pantoprazole 40 mg tablet,delayed release (DR/EC) 40 mg PO BID Qty: 180 3RF furosemide 20 mg tablet 20 mg PO QAM Qty: 90 3RF Lokelma 5 gram powder in packet 5 g PO DAILY Qty: 30 2RF metformin 500 mg tablet 500 mg PO BID 90 Days Qty: 180 3RF Adult Probiotic 3 billion cell capsule 3,000 mmu cells PO BID Rx Instructions: administer with a meal (DME) lancets [Accu-Chek Fastclix Lancet Drum] Misc See Rx Instructions .ROUTE .MEDSUPPLY Rx Instructions: test blood sugar 1 x daily (DME) blood-glucose meter [Accu-Chek Guide Glucose Meter] Misc See Rx Instructions .ROUTE .MEDSUPPLY Rx Instructions: Test blood sugars 1 times a day Novolog Flexpen U-100 Insulin 100 unit/mL (3 mL) insulin pen 80 unit SQ DAILY mecobalamin (vitamin B12) 1,000 mcg lozenge 1,000 mcg PO DAILY Rx Instructions: allow to dissolve in mouth OR may chew lightly before swallowing polyethylene glycol 3350 [Miralax] 17 gram/dose powder 17 g PO DAILY Qty: 510 5RF amlodipine [Norvasc] 5 mg Tablet 10 mg PO QAM Qty: 30 1RF tamsulosin 0.4 mg capsule 0.4 mg PO HS ergocalciferol (vitamin D2) 1,250 mcg (50,000 unit) capsule 1,250 mcg PO WK Discharge Orders: Discharge Order (Routine); Ordered 03/06/22 Ordered By: Jorge Simon Admission Data Admit Date/Time: 03/05/22 03:25 Attending Provider: Jorge Simon Admit Provider: Jorge Contreras Primary Care Provider: Dora Sales Other Providers: Dorene Ceja Other Interventions: Discharge Summary Assessment (RN) Last Done: 03/06/22 13:00 Coding Level of Care Code D/C DAY MANAGEMENT <30 MINS Diagnoses Nausea & vomiting R11.2 Diabetic ulcer of toe of left foot E11.621; L97.529 PAD (peripheral artery disease) I73.9 Hypertension I10 Depression F32.9 GERD (gastroesophageal reflux disease) K21.9 Uncontrolled diabetes mellitus, with long-term current use of insulin E11.65; Z79.4 CKD (chronic kidney disease) N18.9 Cardiopulmonary arrest with successful resuscitation I46.9
== END 2022-03-06 14:22 | disposition home or self-care (01) | DRG 638 ==
LOC: ED 20:01 → EDINP 03-05 03:25 → SUATTDRO 03-05 03:25 → 3N 03-05 07:15

== ENCOUNTER 2022-04-06 19:51 | Inpatient (IN) ==
[2022-04-06] MEDS ORDERED: ONDANSETRON INJ 2 MG/ML 2 ML VIAL IV STA (20:30)
[2022-04-06] MEDS ORDERED: MoRPHine SULFATE 4 MG/ML 1 ML CARP\\VIAL IV STA ×2 (20:30→23:49)
[2022-04-06] MEDS ORDERED: SODIUM CHLORIDE 0.9% 500 ML IV SCH (20:30)
--- NOTE | 2022-04-06 20:33 | Emergency Department Note ---
Impression & Plan Closed L1 vertebral fracture ADMIT ED Provider Note HPI: The patient is a 66-year-old gentleman with history of peripheral artery disease, chronic kidney disease, type 2 diabetes, presents the emergency department chief complaint of nausea that is been ongoing for the past week. Patient states that he had a fall 5 days ago, states he fell directly on his tailbone, states he has had some pain in his lower back since this fall and also some nausea and "gurgling" in his stomach. Patient denies any anterior abdominal pain. On arrival here to the ED the patient is hemodynamically stable, he is noted to be hypertensive, he states he has been ambulatory at home over the past 5 days however he does assist with pain. Patient is saturating well on room air on arrival. ROS: -GI: Nausea -MSK: Lower back pain/pain over coccyx status post fall *10 point review systems was conducted and is otherwise negative unless stated above *Outpatient medications and allergy history reviewed PE: General: Alert HEENT: Normocephalic, trachea midline Eyes: Extraocular eye movement is intact, no scleral erythema Pulmonary: Clear to auscultation bilaterally, no wheezing Cardio: Regular rate and rhythm GI: Abdomen is soft, nontender : No suprapubic tenderness MSK: No evidence of trauma or malformation of the extremities, no edema, patient maintains flexion at the hips bilaterally, motor and sensory function is intact distally in the bilateral lower extremities Skin: No evidence of rash Neuro: Alert, no focal deficits Psychiatric: Cooperative appraisal analyst: - An order was placed for continuous cardiac monitoring - Patient was noted to be in sinus rhythm with a rate of 60 EKG: Rate: 66 Rhythm: Normal sinus rhythm Intervals: Within normal limits ST changes: No ST elevation Time: 203 Interventions provided in ED: -IV morphine, IV Zofran, IV fluid bolus Preliminary Findings Only See Final Report For Complete Findings CT ABDOMEN & PELVIS With Contrast: There is a burst fracture of the L1 vertebral body with slight anterior displacement of the anterior fracture fragment. No retropulsion is seen into the spinal canal. There are old right anterior rib fractures. There are extensive atherosclerotic calcifications of the aorta and its major branch vessels. Radiologist: Jerry Dhillon MD Medical Decision Making: The patient is a 66-year-old gentleman who presents emergency department with chief complaint of back pain after a fall [address] imaging of the abdomen pelvis was obtained as the patient was also complaining of some nausea. CT imaging shows evidence of a burst fracture at the L1 vertebral body with slight anterior displacement, no retropulsion into the spinal canal. Otherwise no mention of any acute surgical pathology within the abdomen and pelvis. Patient's lab work is otherwise largely unremarkable, does show evidence of baseline CKD. I discussed the patient's presentation and imaging findings with on-call spinal surgery, Dr. Valdez, recommends admission, pain control, he will evaluate the patient in the morning and believes this to be nonsurgical in nature, likely patient will require bracing. On my reassessment the patient is in agreement to this plan, he remains with motor and sensory function intact distally in the lower extremities. Patient will be admitted to the hospitalist service for observation and spinal surgery consultation. Case was discussed with the on- call hospitalist for [facility], Dr. Ceja, and the patient was placed for admission in stable condition further care. Diagnosis: 1. L1 Burst fracture 2. Back pain, acute Disposition: Admission Linden Islas DO Emergency Medicine Past Med/Surg History Medical History (Updated 04/06/22 @ 23:57 by Linden Islas DO) Acquired hallux rigidus of right foot BPH loc w urin obs/LUTS (Unknown) CAD (coronary artery disease) Chronic, heavily calcified severe mid LAD disease (70 to 80% by IVUS) per 11/05/21 cardiac cath- medically managed Cardiopulmonary arrest with successful resuscitation - 11/06/2021, [facility]>"in to have a PICC line placed for abx tx, flatlined" - Etiology of arrest seems unclear- seems that this was a PEA arrest per 11/06/21 cardio note CKD (chronic kidney disease) Diabetes mellitus, type 2 IDDM Disc degeneration, lumbar Dyslipidemia Per records Eczema GERD (gastroesophageal reflux disease) OCCASIONAL Hx MRSA infection 10/19/21, lt great toe, dx [facility] Hypertension Per records Morbid obesity Necrotizing fasciitis of ankle and foot S/P IV ANTIBIOTICS/PICC LINE/WOUND VAC DURING 02/2018 [facility] ADMISSION Osteomyelitis PAD (peripheral artery disease) Per records Pancreatitis ~2014/2015 Pneumonia 11/2021, after being discharged from hospital Psoriasis Sleep apnea NO DEVICE S/P UPPP Surgical History History of adenoidectomy History of cardiac cath following an unexplained cardiac arrest>per medical record>11/05/21, [facility], no stents History of cataract surgery bilt History of cholecystectomy History of colonoscopy Colonoscopy 01/21/[address] Garg. History of incision and drainage Hx of I&D of mendel-rectal abscess History of tonsillectomy History of tooth extraction S/P foot surgery, left Status post uvulopalatopharyngoplasty Family History Mother Family history of diabetes mellitus Father History of alcoholism History of liver cancer Sister Cancer Denies family history of Ovarian cancer Prostate cancer Crohn's disease Breast cancer Colorectal cancer Social History Smoking Status: Former smoker Second Hand Exposure: No; Hx Alcohol Use: No Hx Substance Use: No Preferred Language: Slovenian Communication Ability: Effective Visual Impairment: No Limitations Hearing Ability: Normal Dust Control Engineer Required: No Beliefs That Will Affect Care: None marital status: Current Living Situation: Spouse Current Living Situation Comment: Lives with and dog current occupational status: employed 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 Feels Safe at Home: Yes Childhood Exposure to Second-Hand Smoke: Yes Diet Comment: "tries to feed me right, but sometimes it doesn't always happen" during the past year weight has: remained stable Physical Activity Frequency: Does not Exercise Seatbelt Use: never Assistive Devices: None Allergies Allergies Allergy/AdvReac Type Severity Reaction Status Date / Time No Known Allergies Allergy Verified 04/06/22 20:22 Home Meds Home Medications Medication Instructions Recorded Confirmed aspirin 81 mg chewable tablet 81 mg PO QAM 07/26/20 04/06/22 lancets (Accu-Chek Fastclix Lancet 08/23/20 03/22/22 Drtyson) ergocalciferol (vitamin D2) 1,250 1,250 mcg PO Q7D 08/07/21 04/06/22 mcg (50,000 unit) capsule tamsulosin 0.4 mg capsule 0.4 mg PO HS 08/07/21 04/06/22 insulin aspart U-100 100 unit/mL 80 unit subcut TID 10/23/21 04/06/22 (3 mL) subcutaneous pen (Novolog Flexpen U-100 Insulin aspart) mecobalamin (vitamin B12) 1,000 1,000 mcg PO QAM 01/17/22 04/06/22 mcg lozenges atorvastatin 10 mg tablet (Lipitor) 10 mg PO HS 03/21/22 04/06/22 empagliflozin 25 mg tablet 25 mg PO QAM 03/21/22 04/06/22 (Jardiance) furosemide 20 mg tablet (Lasix) 20 mg PO QAM 03/27/22 04/06/22 pantoprazole 40 mg tablet,delayed 40 mg PO BID 03/27/22 04/06/22 release (Protonix) Lactobacillus acidophilus 10 10,000 mmu cells PO BID 04/06/22 04/06/22 billion cell capsule (Probiotic) Previous Rx's Medication Instructions Recorded FreeStyle Remigio 2 Francisco (flash #1 ea 01/24/21 glucose scanning reader) FreeStyle Remigio 2 Sensor (flash #7 ea 01/24/21 glucose sensor) BD Ultra-Fine Mini Pen Needle 31 #400 ea 06/07/21 gauge x 3/16" (pen needle, diabetic) blood sugar diagnostic (Accu-Chek #50 ea 10/01/21 Guide test strips) duloxetine 20 mg capsule,delayed 20 mg PO BID #180 caps 10/10/21 release (Cymbalta) insulin glargine 100 unit/mL (3 65 unit (0.65 mL) subcut QAM 90 10/16/21 mL) subcutaneous pen (Basagl days #60 mL KwikPen U-100 Insulin) sodium zirconium cyclosilicate 5 5 g PO DAILY #30 ea 01/24/22 gram oral powder packet (Lokelma) metformin 500 mg tablet 500 mg PO BID 90 days #180 tabs 01/29/22 aluminum-mag hydroxide-simethicone 10 ml PO TID #355 mL 03/06/22 400 mg-400 mg-40 mg/5 mL oral susp (Mylanta Maximum Strength) famotidine 20 mg tablet (Pepcid AC) 20 mg PO BID #30 tabs 03/06/22 Results & Data (ED) Vital Signs Vital Signs - 24 hr 04/06/22 19:59 04/06/22 20:57 04/06/22 23:01 Temperature 36.7 C Temperature Source Temporal Artery Scan Pulse Rate 92 H 68 72 Pulse Rate from SpO2 Sensor 72 Pulse Rhythm Regular Pulse Strength Normal Respiratory Rate 22 22 Respiratory Effort / Characteristics Non-Labored Spontaneous Respiratory Depth Normal Respiratory Pattern Regular Blood Pressure 181/93 H Blood Pressure Mean 122 Blood Pressure Position Sitting Pulse Oximetry 97 94 92 Oxygen Delivery Method Room Air Room Air Room Air Sepsis Recent Fever Within 48 Hours No Sepsis New/Unexplained Change in Mental Status N/A Sepsis Action Taken by Nursing No Action Required 04/06/22 23:01 04/06/22 23:10 04/06/22 23:15 Temperature Temperature Source Pulse Rate 65 66 Pulse Rate from SpO2 Sensor 65 66 Pulse Rhythm Pulse Strength Respiratory Rate 17 17 Respiratory Effort / Characteristics Respiratory Depth Respiratory Pattern Blood Pressure 184/102 H Blood Pressure Mean 129 Blood Pressure Position Pulse Oximetry 95 95 Oxygen Delivery Method Room Air Room Air Sepsis Recent Fever Within 48 Hours Sepsis New/Unexplained Change in Mental Status Sepsis Action Taken by Nursing 04/06/22 23:15 Temperature Temperature Source Pulse Rate Pulse Rate from SpO2 Sensor Pulse Rhythm Pulse Strength Respiratory Rate Respiratory Effort / Characteristics Respiratory Depth Respiratory Pattern Blood Pressure 169/112 H Blood Pressure Mean 131 Blood Pressure Position Pulse Oximetry Oxygen Delivery Method Sepsis Recent Fever Within 48 Hours Sepsis New/Unexplained Change in Mental Status Sepsis Action Taken by Nursing Laboratory Data Result diagrams: 04/06/22 20:52 04/06/22 21:37 Lab Results 04/06/22 04/06/22 04/06/22 Range/Units 20:52 21:37 21:37 WBC 5.32 (4.8-10.8) K/ul RBC 4.71 (4.63-6.08) M/uL Hgb 12.9 L (14.0-18.0) g/dl Hct 38.3 L (40.1-51.0) % MCV 81.3 (80.0-100.0) fL MCH 27.4 (25.0-34.0) pg MCHC 33.7 (32.0-36.0) g/dL RDW Std Deviation 38.5 (36.4-46.3) fL RDW Coeff of Mejia 13.2 (11.5-14.5) % Plt Count 174 (130-400) K/uL MPV 9.5 (9.4-12.4) fL Immature Gran % (Auto) 0.6 % Neut % (Auto) 68.0 % Lymph % (Auto) 18.0 % Kleberg % (Auto) 11.7 % Eos % (Auto) 0.8 % Baso % (Auto) 0.9 % Neut # (Auto) 3.62 (1.4-6.5) K/uL Lymph # (Auto) 0.96 L (1.2-3.4) K/uL Kleberg # (Auto) 0.62 (0.24-0.82) K/uL Eos # (Auto) 0.04 (0-0.50) K/uL Baso # (Auto) 0.05 (0-0.2) K/uL Immature Gran # (Auto) 0.03 H (0.00-0.02) K/uL PT 11.5 (9.0-12.0) Seconds INR 1.1 (0.9-1.1) Sodium 138 (136-145) mmol/L Potassium 4.5 (3.5-5.1) mmol/L Chloride 103 (98-107) mmol/L Carbon Dioxide 23 (21-32) mmol/L Anion Gap 12 H (3-11) BUN 35 H (6-23) mg/dl Creatinine 1.83 H (0.6-1.4) mg/dl Est Cr Clr Drug Dosing 56.2 ml/min Est GFR ( Amer) 43.6 ml/min Est GFR (Non-Af Amer) 37.6 ml/min BUN/Creatinine Ratio 19.1 (10-20) Glucose 211 H (70-99(Fasting)) mg/dl Calcium 9.1 (8.5-10.1) mg/dl Total Bilirubin 0.8 (0.2-1.0) mg/dl AST 13 (13-39) U/L ALT 7 (7-52) U/L Alkaline Phosphatase 129 H (34-104) U/L Troponin I High Sens 17.4 (0-20) pg/ml Total Protein 7.7 (6.0-8.3) gm/dl Albumin 3.8 (3.4-5.0) gm/dl Globulin 3.9 (2.5-4.0) gm/dl Albumin/Globulin Ratio 1.0 (0.9-2) Administered Medications Discontinued Medications Sodium Chloride (Nss) 500 mls @ 999 mls/hr IV .Q31M LIANA Stop: 04/06/22 21:00 Last Infusion: 04/06/22 21:27 Dose: 0 mls/hr Documented By: Admin: 04/06/22 20:53 Dose: 999 mls/hr Documented By: Ioversol (Optiray 350 100ml) 90 ml IV ONCE ONE Stop: 04/06/22 23:16 Last Admin: 04/06/22 23:16 Dose: 90 ml Documented By: HANANE Morphine Sulfate (Morphine Sulfate 4 Mg/Ml 1 Ml Carp\\Vial) 4 mg IV NOW STA Stop: 04/06/22 20:31 Last Admin: 04/06/22 20:54 Dose: 4 mg Documented By: Morphine Sulfate (Morphine Sulfate 4 Mg/Ml 1 Ml Carp\\Vial) 4 mg IV NOW STA Stop: 04/06/22 23:50 Last Admin: 04/06/22 23:53 Dose: 4 mg Documented By: Ondansetron HCl (Ondansetron Inj 2 Mg/Ml 2 Ml Vial) 4 mg IV NOW STA Stop: 04/06/22 20:31 Last Admin: 04/06/22 20:54 Dose: 4 mg Documented By: Discharge Plan Visit Data Chief Complaint: Back Injury/Pain Stated Complaint: BACK PAIN, NAUSEA, FALL ON FRIDAY ED Provider: Linden Islas Discharge Problem: Closed L1 vertebral fracture Forms Stand Alone Forms: [facility] Prescriptions Prescriptions: No Action aspirin 81 mg tablet,chewable 81 mg PO QAM (DME) FreeStyle Remigio 2 Francisco Misc See Rx Instructions .Route Qty: 1 0RF Rx Instructions: Use to monitor blood sugars daily (DME) FreeStyle Remigio 2 Sensor Kit See Rx Instructions .Route Qty: 7 3RF Rx Instructions: Change sensor every 14 days (DME) pen needle, diabetic [BD Ultra-Fine Mini Pen Needle] 31 gauge x 3/16" needle See Dose Instructions .ROUTE .MEDSUPPLY Qty: 400 3RF Rx Instructions: use 4 needles daily (DME) Accu-Chek Guide test strips Strip See Rx Instructions .ROUTE .MEDSUPPLY Qty: 50 3RF Rx Instructions: test blood sugar 1 x daily duloxetine [Cymbalta] 20 mg capsule,delayed release(DR/EC) 20 mg PO BID Qty: 180 2RF Basaglar KwikPen U-100 Insulin 100 unit/mL (3 mL) insulin pen 65 unit SQ QAM 90 Days Qty: 60 3RF Lokelma 5 gram powder in packet 5 g PO DAILY Qty: 30 2RF Label Comments: doesn't always take it every day metformin 500 mg tablet 500 mg PO BID 90 Days Qty: 180 3RF (DME) lancets [Accu-Chek Fastclix Lancet Drum] Misc See Rx Instructions .ROUTE .MEDSUPPLY Rx Instructions: test blood sugar 1 x daily Novolog Flexpen U-100 Insulin 100 unit/mL (3 mL) insulin pen 80 unit SQ TID Rx Instructions: with meals mecobalamin (vitamin B12) 1,000 mcg lozenge 1,000 mcg PO QAM Rx Instructions: allow to dissolve in mouth OR may chew lightly before swallowing famotidine [Pepcid AC] 20 mg tablet 20 mg PO BID Qty: 30 0RF alum-mag hydroxide-simeth [Mylanta Maximum Strength] 400-400-40 mg/5 mL suspension 10 ml PO TID Qty: 355 0RF atorvastatin [Lipitor] 10 mg tablet 10 mg PO HS Jardiance 25 mg tablet 25 mg PO QAM pantoprazole [Protonix] 40 mg tablet,delayed release (DR/EC) 40 mg PO BID furosemide [Lasix] 20 mg tablet 20 mg PO QAM tamsulosin 0.4 mg capsule 0.4 mg PO HS ergocalciferol (vitamin D2) 1,250 mcg (50,000 unit) capsule 1,250 mcg PO Q7D Probiotic 10 billion cell Capsule 10,000 mmu cells PO BID Referrals Referrals: Dora Sales MD [Primary Care Provider] -
[2022-04-06 21:45] LABS: Basophils # (auto) 0.05 K/uL (0-0.2); Basophils % (auto) 0.9 %; Eosinophils # (auto) 0.04 K/uL (0-0.50); Eosinophils % (auto) 0.8 %; Hematocrit (blood only) 38.3 % (40.1-51.0); Hemoglobin 12.9 g/dl (14.0-18.0); Immature Granulocytes # (auto) 0.03 K/uL (0.00-0.02); Immature Granulocytes % (auto) 0.6 %; Lymphocytes # (auto) 0.96 K/uL (1.2-3.4); Mean Corpuscular Hemoglobin 27.4 pg (25.0-34.0); Mean Corpuscular Hgb Conc 33.7 g/dL (32.0-36.0); Mean Corpuscular Volume 81.3 fL (80.0-100.0); Mean Platelet Volume 9.5 fL (9.4-12.4); Monocytes # (auto) 0.62 K/uL (0.24-0.82); Monocytes % (auto) 11.7 %; Neutrophils # (auto) 3.62 K/uL (1.4-6.5); Platelet Count 174 K/uL (130-400); RDW Coefficient of Variation 13.2 % (11.5-14.5); RDW Standard Deviation 38.5 fL (36.4-46.3); Red Blood Count 4.71 M/uL (4.63-6.08); White Blood Count 5.32 K/ul (4.8-10.8)
[2022-04-06 22:02] LABS: Albumin Level 3.8 gm/dl (3.4-5.0); BUN Creatinine Ratio 19.1 (10-20); Bilirubin,Total 0.8 mg/dl (0.2-1.0); Calcium 9.1 mg/dl (8.5-10.1); Creatinine Clr Calc Pharmacy 56.2 ml/min; Est GFR (African American) 43.6 ml/min; Est GFR (Non-African American) 37.6 ml/min; Globulin 3.9 gm/dl (2.5-4.0); Potassium 4.5 mmol/L (3.5-5.1); Total Protein 7.7 gm/dl (6.0-8.3)
[2022-04-06 22:11] LABS: INR 1.1 (0.9-1.1); Prothrombin Time 11.5 Seconds (9.0-12.0)
[2022-04-06 22:24] LABS: Troponin I High Sensitivity 17.4 pg/ml (0-20)
[2022-04-06] MEDS ORDERED: OPTIRAY 350 100ml IV ONE (23:15)
--- NOTE | 2022-04-07 00:28 | History & Physical Report ---
Date of Service April 07, 2022 Assessment & Plan (1) Closed L1 vertebral fracture: Plan: 66yo male s/p ground level fall 5 days ago resulting in L1 burst fracture. Patient with severe, persistent pain. No neurological complaints. -Admit to medical -Pain control with Morphine PRN -Orthopedics consultation appreciated -PT/OT evaluation -Colace and Miralax as needed for constipation management (2) Hypertension: (3) PAD (peripheral artery disease): Plan: Chronic -Continue ASA 81mg po daily -Continue Atorvastatin (4) Dyslipidemia: Plan: Chronic -Continue Atorvastatin 10mg po qHS (5) CKD (chronic kidney disease): Plan: Chronic. Stable -Avoid nephrotoxic agents. -Renal dosing as needed (6) Depression: Plan: Chronic. -Continue Cymbalta 20mg po BID (7) GERD (gastroesophageal reflux disease): Plan: Chronic. Symptoms well controlled on home medications -Continue Pepcid 20mg po BID -Continue Protonix 40mg po BID (8) Diabetes mellitus with diabetic polyneuropathy: Plan: Blood sugar elevated presently at 211. Patient reports he has not taken his insulin for several days. Last HgbA1C on 03/06/22 = 7.5. Diabetes complicated by CKD and peripheral neuropathy. Patient with recent amputation of the left 2nd toe on 03/27/22. -Lantus 30u BID -ISS -Goal blood sugar 110 - 140 -Wound care to toe as needed F/E/N - LR at 125ml/hr x 2 liters, electrolytes as needed, CC diet as tolerated Ppx - Lovenox Code - Full per discussion with patient Dispo - Admit to medical History of Present Illness Chief Complaint: back pain Primary Care Provider: Dora Sales MD Enrique Alvarado is a 66yo male with history of DM, CAD, HTN and HLP presenting with intractable back pain requiring IV Morphine. Patient fell 5 days ago. He reports he was going to the bathroom when he fell and landed on his buttock. He does not think that he passed out, is unsure if he tripped. He had immediate pain in his back. His pain has been persistent over the last 5 days. He has been unable to get up from bed. He has not been eating well or taking his medications and has had some ongoing nausea and vomiting. Today he tried to get out of bed and walk down the stairs and his pain was so intense that he requested that his family bring him to the ER. He denies focal numbness or weakness. Denies changes in bowel or bladder function. CT obtained in the ER revealed an L1 burst fracture with some anterior displacement of fragments, no retropulsion. In the ER patient had significant pain. He was administered Morphine 4mg IV x 2 doses with improvement in pain. ER Course: Morphine 4mg IV x 2, NSS Allergies Allergy/AdvReac Type Severity Reaction Status Date / Time No Known Allergies Allergy Verified 04/06/22 20:22 Home Medications Medication Instructions Recorded Confirmed Type aspirin 81 mg chewable tablet 81 mg PO QAM 07/26/20 04/06/22 History lancets (Accu-Chek Fastclix Lancet 08/23/20 03/22/22 History Drum) FreeStyle Remigio 2 Bradford (flash #1 ea 01/24/21 03/22/22 Rx glucose scanning reader) FreeStyle Remigio 2 Sensor (flash #7 ea 01/24/21 03/22/22 Rx glucose sensor) BD Ultra-Fine Mini Pen Needle 31 #400 ea 06/07/21 03/22/22 Rx gauge x 3/16" (pen needle, diabetic) ergocalciferol (vitamin D2) 1,250 1,250 mcg PO Q7D 08/07/21 04/06/22 History mcg (50,000 unit) capsule tamsulosin 0.4 mg capsule 0.4 mg PO HS 08/07/21 04/06/22 History blood sugar diagnostic (Accu-Chek #50 ea 10/01/21 03/22/22 Rx Guide test strips) duloxetine 20 mg capsule,delayed 20 mg PO BID #180 caps 10/10/21 04/06/22 Rx release (Cymbalta) insulin glargine 100 unit/mL (3 65 unit (0.65 mL) subcut QAM 90 10/16/21 04/06/22 Rx mL) subcutaneous pen (Basaglar days #60 mL KwikPen U-100 Insulin) insulin aspart U-100 100 unit/mL 80 unit subcut TID 10/23/21 04/06/22 History (3 mL) subcutaneous pen (Novolog Flexpen U-100 Insulin aspart) mecobalamin (vitamin B12) 1,000 1,000 mcg PO QAM 01/17/22 04/06/22 History mcg lozenges sodium zirconium cyclosilicate 5 5 g PO DAILY #30 ea 01/24/22 04/06/22 Rx gram oral powder packet (Lokelma) metformin 500 mg tablet 500 mg PO BID 90 days #180 tabs 01/29/22 04/06/22 Rx aluminum-mag hydroxide-simethicone 10 ml PO TID #355 mL 03/06/22 04/06/22 Rx 400 mg-400 mg-40 mg/5 mL oral susp (Mylanta Maximum Strength) famotidine 20 mg tablet (Pepcid AC) 20 mg PO BID #30 tabs 03/06/22 04/06/22 Rx atorvastatin 10 mg tablet (Lipitor) 10 mg PO HS 03/21/22 04/06/22 History empagliflozin 25 mg tablet 25 mg PO QAM 03/21/22 04/06/22 History (Jardiance) furosemide 20 mg tablet (Lasix) 20 mg PO QAM 03/27/22 04/06/22 History pantoprazole 40 mg tablet,delayed 40 mg PO BID 03/27/22 04/06/22 History release (Protonix) Lactobacillus acidophilus 10 10,000 mmu cells PO BID 04/06/22 04/06/22 History billion cell capsule (Probiotic) Past Med/Surg History Medical History Acquired hallux rigidus of right foot BPH loc w urin obs/LUTS (Unknown) CAD (coronary artery disease) Chronic, heavily calcified severe mid LAD disease (70 to 80% by IVUS) per 11/05/21 cardiac cath- medically managed Cardiopulmonary arrest with successful resuscitation - 11/06/2021, [facility]>"in to have a PICC line placed for abx tx, flatlined" - Etiology of arrest seems unclear- seems that this was a PEA arrest per 11/06/21 cardio note CKD (chronic kidney disease) Diabetes mellitus, type 2 IDDM Disc degeneration, lumbar Dyslipidemia Per records Eczema GERD (gastroesophageal reflux disease) OCCASIONAL Hx MRSA infection 10/19/21, lt great toe, dx [facility] Hypertension Per records Morbid obesity Necrotizing fasciitis of ankle and foot S/P IV ANTIBIOTICS/PICC LINE/WOUND VAC DURING 02/2018 [facility] ADMISSION Osteomyelitis PAD (peripheral artery disease) Per records Pancreatitis ~ Pneumonia 11/2021, after being discharged from hospital Psoriasis Sleep apnea NO DEVICE S/P UPPP Surgical History History of adenoidectomy History of cardiac cath following an unexplained cardiac arrest>per medical record>11/05/21, [facility], no stents History of cataract surgery bilt History of cholecystectomy History of colonoscopy Colonoscopy 01/21/[address] Garg. History of incision and drainage Hx of I&D of mendel-rectal abscess History of tonsillectomy History of tooth extraction S/P foot surgery, left Status post uvulopalatopharyngoplasty Family History Mother Family history of diabetes mellitus Father History of alcoholism History of liver cancer Sister Cancer Denies family history of Ovarian cancer Prostate cancer Crohn's disease Breast cancer Colorectal cancer Social History Smoking Status: Former smoker Second Hand Exposure: No; Hx Alcohol Use: No Hx Substance Use: No Preferred Language: Lao Communication Ability: Effective Visual Impairment: No Limitations Hearing Ability: Normal Managing Cognitive Engineer Required: No Beliefs That Will Affect Care: None marital status: Current Living Situation: Spouse Current Living Situation Comment: Lives with and dog current occupational status: employed 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 Feels Safe at Home: Yes Childhood Exposure to Second-Hand Smoke: Yes Diet Comment: "tries to feed me right, but sometimes it doesn't always happen" during the past year weight has: remained stable Physical Activity Frequency: Does not Exercise Seatbelt Use: never Assistive Devices: None Review of Systems Review of Systems: All systems reviewed & are unremarkable except as noted in HPI & below Physical Exam Physical Exam: General: patient resting comfortably, NAD, non-toxic in appearance, AA&O x 4 Skin: warm, dry, intact, no rashes or lesions HEENT: NC/AT, PERRL, EOMI, anicteric sclera, conjunctiva without injection, external ear normal to inspection and nontender, nares patent, dry mucus membranes, dentition intact, no oropharyngeal lesions, neck supple, trachea midline, no LAD, no thyromegaly, no JVD Heart: +S1/S2, regular, no m/r/g Lungs: equal air entry bilaterally, no rales/rhonchi/wheezes Abd: +BS, soft, NT/ND, no masses/organomegaly/ascites Ext: warm, 2+ pulses in UE/LE bilaterally, no clubbing/cyanosis or edema, left toe amputation with dressing in place Neuro: nonfocal, patient AA&O x 4, speech intact, no facial droop, moving all extremities on command with equal strength 5/5 Results & Data Results & Data ([facility]) Vital Signs (Past 12 Hours) Vital Signs Temp Pulse Resp BP Pulse Ox O2 Del Method 04/06/22 23:15 169/112 H 04/06/22 23:15 66 17 95 Room Air 04/06/22 23:10 65 17 95 Room Air 04/06/22 23:01 184/102 H 04/06/22 23:01 72 22 92 Room Air 04/06/22 20:57 68 94 Room Air 04/06/22 19:59 36.7 C 92 H 22 181/93 H 97 Room Air Laboratory Results Laboratory Results WBC 5.32 K/ul (4.8-10.8) 04/06/22 20:52 RBC 4.71 M/uL (4.63-6.08) 04/06/22 20:52 Hgb 12.9 g/dl (14.0-18.0) L 04/06/22 20:52 Hct 38.3 % (40.1-51.0) L 04/06/22 20:52 MCV 81.3 fL (80.0-100.0) 04/06/22 20:52 MCH 27.4 pg (25.0-34.0) 04/06/22 20:52 MCHC 33.7 g/dL (32.0-36.0) 04/06/22 20:52 RDW Std Deviation 38.5 fL (36.4-46.3) 04/06/22 20:52 RDW Coeff of Mejia 13.2 % (11.5-14.5) 04/06/22 20:52 Plt Count 174 K/uL (130-400) 04/06/22 20:52 MPV 9.5 fL (9.4-12.4) 04/06/22 20:52 Immature Gran % (Auto) 0.6 % 04/06/22 20:52 Neut % (Auto) 68.0 % 04/06/22 20:52 Lymph % (Auto) 18.0 % 04/06/22 20:52 Tripp % (Auto) 11.7 % 04/06/22 20:52 Eos % (Auto) 0.8 % 04/06/22 20:52 Baso % (Auto) 0.9 % 04/06/22 20:52 Neut # (Auto) 3.62 K/uL (1.4-6.5) 04/06/22 20:52 Lymph # (Auto) 0.96 K/uL (1.2-3.4) L 04/06/22 20:52 Tripp # (Auto) 0.62 K/uL (0.24-0.82) 04/06/22 20:52 Eos # (Auto) 0.04 K/uL (0-0.50) 04/06/22 20:52 Baso # (Auto) 0.05 K/uL (0-0.2) 04/06/22 20:52 Immature Gran # (Auto) 0.03 K/uL (0.00-0.02) H 04/06/22 20:52 PT 11.5 Seconds (9.0-12.0) 04/06/22 21:37 INR 1.1 (0.9-1.1) 04/06/22 21:37 Sodium 138 mmol/L (136-145) 04/06/22 21:37 Potassium 4.5 mmol/L (3.5-5.1) 04/06/22 21:37 Chloride 103 mmol/L (98-107) 04/06/22 21:37 Carbon Dioxide 23 mmol/L (21-32) 04/06/22 21:37 Anion Gap 12 (3-11) H 04/06/22 21:37 BUN 35 mg/dl (6-23) H 04/06/22 21:37 Creatinine 1.83 mg/dl (0.6-1.4) H 04/06/22 21:37 Est Cr Clr Drug Dosing 56.2 ml/min 04/06/22 21:37 Est GFR ( Amer) 43.6 ml/min 04/06/22 21:37 Est GFR (Non-Af Amer) 37.6 ml/min 04/06/22 21:37 BUN/Creatinine Ratio 19.1 (10-20) 04/06/22 21:37 Glucose 211 mg/dl (70-99(Fasting)) H 04/06/22 21:37 Calcium 9.1 mg/dl (8.5-10.1) 04/06/22 21:37 Total Bilirubin 0.8 mg/dl (0.2-1.0) 04/06/22 21:37 AST 13 U/L (13-39) 04/06/22 21:37 ALT 7 U/L (7-52) 04/06/22 21:37 Alkaline Phosphatase 129 U/L (34-104) H 04/06/22 21:37 Troponin I High Sens 17.4 pg/ml (0-20) 04/06/22 21:37 Total Protein 7.7 gm/dl (6.0-8.3) 04/06/22 21:37 Albumin 3.8 gm/dl (3.4-5.0) 04/06/22 21:37 Globulin 3.9 gm/dl (2.5-4.0) 04/06/22 21:37 Albumin/Globulin Ratio 1.0 (0.9-2) 04/06/22 21:37 SARS-CoV-2, RNA, NAAT NEGATIVE (NEGATIVE) 04/06/22 23:[address] Abdomen and Pelvis with contrast - per STAT rad - there is a burst fracture of the L1 vertebral body with slight anterior displacement of the anterior fracture fragments. No retropulsion is seen into the spinal canal. There are old right anterior rib fractures. There are extensive atherosclerotic calcifications of the aorta and its major branch vessels. ECG Additional Comments: Per my interpretation - study shows NSR at 66bpm, HG=247, QR=94, PWl=745, no acute ST changes Code Status & VTE Plan VTE Prophylaxis Plan VTE Prophylaxis will be ordered: Yes PG Care Time/CCT Total # of Minutes Spent Total Time Spent with Patient: Total time spent is greater than 50% in coordination of care (as documented) at patient's floor/unit and/or counseling patient: Coding Level of Care Code 19393 Initial Inpt Care Lvl 2 Diagnoses Closed L1 vertebral fracture S32.019A Hypertension I10 PAD (peripheral artery disease) I73.9 Dyslipidemia E78.5 CKD (chronic kidney disease) N18.9 Depression F32.9 GERD (gastroesophageal reflux disease) K21.9 Diabetes mellitus with diabetic polyneuropathy E11.42 Diabetes mellitus type: type 2 Diabetes mellitus intermediate designer insulin use: unspecified intermediate designer insulin use status (1) Diabetes mellitus with diabetic polyneuropathy Diabetes mellitus type: type 2 Diabetes mellitus fci insulin use: unspecified intermediate designer insulin use status Qualified Code(s): E11.42 - Type 2 diabetes mellitus with diabetic polyneuropathy
[2022-04-07] MEDS ORDERED: GLUCOSE 40% GEL 15 GM TUBE PO PRN (02:29)
[2022-04-07] MEDS ORDERED: GLUCAGON FOR INJ 1 MG VIAL SQ PRN (02:29)
[2022-04-07] MEDS ORDERED: DOCUSATE SODIUM 100 MG CAP PO PRN (02:29)
[2022-04-07] MEDS ORDERED: CARBOHYDRATES FOR HYPOGLYCEMIA PO PRN (02:29)
[2022-04-07] MEDS ORDERED: DEXTROSE 50% 50 ML SYRINGE IV PRN (02:29)
[2022-04-07] MEDS ORDERED: GLUCOSE 10 TAB/TUBE PO PRN (02:29)
[2022-04-07] MEDS ORDERED: MoRPHine SULFATE 2 MG/ML CARP IV PRN (02:29)
[2022-04-07] MEDS: LACTATED RINGER'S 1,000 ML IV SCH ×2 (03:00→08:59)
[2022-04-07] MEDS: MoRPHine SULFATE 4 MG/ML 1 ML CARP\\VIAL IV PRN ×2 (05:44→20:32)
--- NOTE | 2022-04-07 07:49 | Hospitalist Progress Note ---
Date of Service April 07, 2022 Assessment & Plan (1) Closed L1 vertebral fracture: Plan: 66yo male s/p ground level fall 5 days ago resulting in L1 burst fracture. Patient with severe, persistent pain. No neurological complaints. Of note, patient had Left Foot Second Toe Amputation by Dr Disla on 03/27/22, possibly contributing to why patient fell -Admit to medical -Pain control with Morphine PRN -Orthopedics consultation appreciated -PT/OT evaluation -Colace and Miralax as needed for constipation management -- made scheduled colace BID, added scheduled senna He has not had BM since Friday, active BS on exam LR @ 75cc/hr x 2 L for dehydration (2) Hypertension: Plan: BPs elevated on admit, 2nd to pain. No headache/visual changes Currently 177/67 Lasix on hold given dehydration, continue for 2L Monitor BP Previously on lisinopril 20mg. Monitor/possible resume, emile given DM as well. Will monitor BP/resume if able. Prior admit in November w/ recs to start amlodipine 10mg, however patient unsure if taking this ether (3) PAD (peripheral artery disease): Plan: Chronic -Continue ASA 81mg po daily -Continue Atorvastatin (4) Dyslipidemia: Plan: Chronic -Continue Atorvastatin 10mg po qHS (5) CKD (chronic kidney disease): Plan: Chronic. Stable Baseline actually had been closer to 2s, but had not been eating/drinking much. Cr improved 1.83--> 1.76 and on IVF x 2 L/lasix on hold -Avoid nephrotoxic agents. -Renal dosing as needed BMP in AM (6) Depression: Plan: Chronic. -Continue Cymbalta 20mg po BID (7) GERD (gastroesophageal reflux disease): Plan: Chronic. Symptoms well controlled on home medications -Continue Pepcid 20mg po BID -Continue Protonix 40mg po BID (8) Diabetes mellitus with diabetic polyneuropathy: Plan: Blood sugar elevated presently at 211. Patient reports he has not taken his insulin for several days but that sugars have been 150s at home Last HgbA1C on 03/06/22 = 7.5. Diabetes complicated by CKD and peripheral roya ropathy. Patient with recent amputation of the left 2nd toe on 03/27/22. -Lantus 30u BID -ISS -Goal blood sugar 110 - 140 -Wound care to toe as needed Used to be on lisinopril 20mg daily? if needing to add back on for BP if elevated Last admit, recs for amlodipine 10mg as "unknown BP meds" and patient unsure -- per DM note in October, appears lisinopril dropped due to recurrent hyperkalemia (9) CAD in [place] artery: Plan: Cardiac arrest/PEA in November, ?transient arrhtyhmia vs vasovagal episode, Underwent cardiac cath showing chronic, heavily calcified mid LAD stenosis (70- 80%) Remains on ASA 81mg daily, atorvastatin 10mg (?increasing such -- can check lipid panel in am for risk stratification) Of note, patient does have SOB w/ exertion, not worse than baseline, but can consider f/u cards for consideration for exertional anginal symptoms to consider PCI? If any surgery for burst fracture, would consult for pre-op clearance Last ECHO in November, grade I diastolic dysfunction No CP reported, EKG on admit NSR (hx afib/flutter, on DVT prophylaxis -- Lovenox SQ while inpatient Plan admitted after midnight pain control, increased bowel regimen, suppository if needed IVF for dehydration, anion gap closed on lab ortho consulted Admission and Anticipated Discharge Date Admission Date: April 07, 2022 Supervising Physician Co-Signing Physician Notes The patient was seen and examined by me. Case discussed with ROXY Etienne. Agree with assessment and plan Subjective BRIDGE NOTE: ADMITTED AFTER MIDNIGHT Eval this morning, just admitted. Pain currently 2/10, bearable. Had fall at home about 5-6 days ago, not sure if he slipped or what, but landed on his buttocks and has had increasing back pain since. He notes finally good to get some relief. Had not been eating much over the past couple of days because when he did he would just throw it back up from the nausea from the pain. He does have active BS, but no BM since Friday. Discussed heavy bowel regimen Pain has been controlled to his toe since amputation, to have wound visit tomorrow, will have seen while inpatient. Consultation placed for ortho spine for further recs No fever/chills, chest pain. Shortness of breath when walking up steps, but no significant change from baseline. No further nausea/vomiting since admit. Questions/concerns addressed at this time. Physical Exam Physical Exam: General: patient resting comfortably in bed, NAD, alert/oriented x 4, cooperative and pleasant HEENT: head normocephalic, mm slightly dry, trachea midline Resp: CTA, diminished in the bases, on room air, no wheezing/rales CV: RRR, no m/r/g, chronic edema, nonpitting, pulses diminished but palpable, , calves nontender to palpation, cap refill wnl GI: +BS, distended, nontender ; no barrett MSK/Neuro: b/l neuropathy, moves all extremities, no facial droop/slurred speech, no focal deficit tenderness to palpation thoracic spine, equal strength dorsiflexion/plantarflexion amputation to left toe w/ dressing in place, no evidence for infection at present Psych: AOx3, pleasant and cooperative Results & Data Results & Data ([facility]) Vital Signs (Past 12 Hours) Vital Signs Temp Pulse Pulse Resp BP BP Pulse Ox 04/07/22 07:12 36.4 C L 56 L 16 177/67 H 95 04/07/22 02:15 04/07/22 02:15 36.5 C 90 18 148/84 H 94 04/07/22 01:29 60 04/07/22 01:00 61 20 150/101 H 04/07/22 00:15 60 19 141/101 H 99 04/07/22 00:01 63 22 161/96 H 100 04/06/22 23:45 62 17 152/103 H 94 04/06/22 23:31 66 16 165/129 H 95 04/07/22 01:41 61 20 139/75 93 04/06/22 23:15 169/112 H 04/06/22 23:15 66 17 95 04/06/22 23:10 65 17 95 04/06/22 23:01 184/102 H 04/06/22 23:01 72 22 92 04/06/22 20:57 68 94 04/06/22 19:59 36.7 C 92 H 22 181/93 H 97 O2 Del Method 04/07/22 07:12 Room Air 04/07/22 02:15 Room Air 04/07/22 02:15 Room Air 04/07/22 01:29 Room Air 04/07/22 01:00 04/07/22 00:15 Room Air 04/07/22 00:01 Room Air 04/06/22 23:45 Room Air 04/06/22 23:31 Room Air 04/07/22 01:41 Room Air 04/06/22 23:15 04/06/22 23:15 Room Air 04/06/22 23:10 Room Air 04/06/22 23:01 04/06/22 23:01 Room Air 04/06/22 20:57 Room Air 04/06/22 19:59 Room Air Laboratory Results 04/07/22 04/06/22 04/06/22 Range/Units 02:33 23:55 21:37 WBC (4.8-10.8) K/ul RBC (4.63-6.08) M/uL Hgb (14.0-18.0) g/dl Hct (40.1-51.0) % MCV (80.0-100.0) fL MCH (25.0-34.0) pg MCHC (32.0-36.0) g/dL RDW Std Deviation (36.4-46.3) fL RDW Coeff of Mejia (11.5-14.5) % Plt Count (130-400) K/uL MPV (9.4-12.4) fL Immature Gran % (Auto) % Neut % (Auto) % Lymph % (Auto) % [place] % (Auto) % Eos % (Auto) % Baso % (Auto) % Neut # (Auto) (1.4-6.5) K/uL Lymph # (Auto) (1.2-3.4) K/uL [place] # (Auto) (0.24-0.82) K/uL Eos # (Auto) (0-0.50) K/uL Baso # (Auto) (0-0.2) K/uL Immature Gran # (Auto) (0.00-0.02) K/uL PT (9.0-12.0) Seconds INR (0.9-1.1) Sodium 138 (136-145) mmol/L Potassium 4.5 (3.5-5.1) mmol/L Chloride 103 (98-107) mmol/L Carbon Dioxide 23 (21-32) mmol/L Anion Gap 12 H (3-11) BUN 35 H (6-23) mg/dl Creatinine 1.83 H (0.6-1.4) mg/dl Est Cr Clr Drug Dosing 56.2 ml/min Est GFR ( Amer) 43.6 ml/min Est GFR (Non-Af Amer) 37.6 ml/min BUN/Creatinine Ratio 19.1 (10-20) Glucose 211 H (70-99(Fasting)) mg/dl POC Glucose 173 H (70-99) mg/dl Calcium 9.1 (8.5-10.1) mg/dl Total Bilirubin 0.8 (0.2-1.0) mg/dl AST 13 (13-39) U/L ALT 7 (7-52) U/L Alkaline Phosphatase 129 H (34-104) U/L Troponin I High Sens 17.4 (0-20) pg/ml Total Protein 7.7 (6.0-8.3) gm/dl Albumin 3.8 (3.4-5.0) gm/dl Globulin 3.9 (2.5-4.0) gm/dl Albumin/Globulin Ratio 1.0 (0.9-2) SARS-CoV-2, RNA, NAAT NEGATIVE (NEGATIVE) 04/06/22 04/06/22 Range/Units 21:37 20:52 WBC 5.32 (4.8-10.8) K/ul RBC 4.71 (4.63-6.08) M/uL Hgb 12.9 L (14.0-18.0) g/dl Hct 38.3 L (40.1-51.0) % MCV 81.3 (80.0-100.0) fL MCH 27.4 (25.0-34.0) pg MCHC 33.7 (32.0-36.0) g/dL RDW Std Deviation 38.5 (36.4-46.3) fL RDW Coeff of Mejia 13.2 (11.5-14.5) % Plt Count 174 (130-400) K/uL MPV 9.5 (9.4-12.4) fL Immature Gran % (Auto) 0.6 % Neut % (Auto) 68.0 % Lymph % (Auto) 18.0 % [place] % (Auto) 11.7 % Eos % (Auto) 0.8 % Baso % (Auto) 0.9 % Neut # (Auto) 3.62 (1.4-6.5) K/uL Lymph # (Auto) 0.96 L (1.2-3.4) K/uL [place] # (Auto) 0.62 (0.24-0.82) K/uL Eos # (Auto) 0.04 (0-0.50) K/uL Baso # (Auto) 0.05 (0-0.2) K/uL Immature Gran # (Auto) 0.03 H (0.00-0.02) K/uL PT 11.5 (9.0-12.0) Seconds INR 1.1 (0.9-1.1) Sodium (136-145) mmol/L Potassium (3.5-5.1) mmol/L Chloride (98-107) mmol/L Carbon Dioxide (21-32) mmol/L Anion Gap (3-11) BUN (6-23) mg/dl Creatinine (0.6-1.4) mg/dl Est Cr Clr Drug Dosing ml/min Est GFR ( Amer) ml/min Est GFR (Non-Af Amer) ml/min BUN/Creatinine Ratio (10-20) Glucose (70-99(Fasting)) mg/dl POC Glucose (70-99) mg/dl Calcium (8.5-10.1) mg/dl Total Bilirubin (0.2-1.0) mg/dl AST (13-39) U/L ALT (7-52) U/L Alkaline Phosphatase (34-104) U/L Troponin I High Sens (0-20) pg/ml Total Protein (6.0-8.3) gm/dl Albumin (3.4-5.0) gm/dl Globulin (2.5-4.0) gm/dl Albumin/Globulin Ratio (0.9-2) SARS-CoV-2, RNA, NAAT (NEGATIVE) Diagnostic Findings Abdomen/Pelvis CT 04/06/22 20:[address] WITH IV CONTRAST CT DOSE: 1732.99 mGy.cm HISTORY: Fall. Back pain. Trauma TECHNIQUE: Multiaxial CT images of the abdomen and pelvis were performed following the use of intravenous contrast. A dose lowering technique was utilized adhering to the principles of ALARA. COMPARISON STUDY: Abdomen and pelvis CT 03/06/2017. FINDINGS: There is a burst fracture at L1 demonstrating up to 10% loss of height centrally. No significant retropulsion. Paravertebral edema noted at this level. Mild dependent changes seen at the lung bases. No pneumoperitoneum. No pneumatosis. There are healing bilateral anterior rib fractures. Cholecystectomy. The liver, spleen, right adrenal gland, and pancreas are unremarkable. Stable 2.5 cm left adrenal gland nodule. No retroperitoneal lymphadenopathy. Calcified plaque within the normal caliber abdominal aorta. No pelvic free fluid. The bladder is unremarkable. A few colonic diverticula. No evidence for acute diverticulitis. No bowel wall thickening or obstruction. Normal appendix. IMPRESSION: 1. An acute L1 burst fracture demonstrating up to 10% loss of height. No significant retropulsion. 2. Healing bilateral anterior rib fractures. 3. Additional findings as described above. ACT 112: Negative or not required by law. Electronically signed by: Marcin Munguia M.D. 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
[2022-04-07 08:22] LABS: Hematocrit (blood only) 35.4 % (40.1-51.0); Hemoglobin 11.9 g/dl (14.0-18.0); Mean Corpuscular Hemoglobin 27.4 pg (25.0-34.0); Mean Corpuscular Hgb Conc 33.6 g/dL (32.0-36.0); Mean Corpuscular Volume 81.6 fL (80.0-100.0); Platelet Count 161 K/uL (130-400); RDW Coefficient of Variation 13.3 % (11.5-14.5); Red Blood Count 4.34 M/uL (4.63-6.08); White Blood Count 5.84 K/ul (4.8-10.8)
[2022-04-07 08:55] LABS: BUN Creatinine Ratio 19.3 (10-20); Calcium 8.8 mg/dl (8.5-10.1); Creatinine Clr Calc Pharmacy 58.5 ml/min; Est GFR (African American) 45.7 ml/min; Est GFR (Non-African American) 39.4 ml/min; Magnesium 2.2 mg/dl (1.7-2.4); Potassium 4.1 mmol/L (3.5-5.1)
[2022-04-07] MEDS: INSULIN ASPART PER UNIT SC SCH ×4 (08:58→20:30)
[2022-04-07] MEDS: LANTUS PER UNIT CHARGE SQ SCH ×2 (08:58→20:30)
[2022-04-07] MEDS: DULoxetine HCL 20 MG CAP PO SCH ×2 (08:59→20:32)
[2022-04-07] MEDS: ENOXAPARIN INJ 40 MG/0.4 ML SYR SQ SCH (08:59)
[2022-04-07] MEDS: PANTOprazole 40 MG TAB PO SCH ×2 (08:59→20:32)
[2022-04-07] MEDS: FAMOTIDINE 20 MG TAB PO SCH ×2 (08:59→20:32)
[2022-04-07] MEDS ORDERED: ASPIRIN 81 MG CHEW PO SCH (09:00)
[2022-04-07 09:02] LABS: Ferritin 74.8 ng/ml (8-388)
--- NOTE | 2022-04-07 09:02 | CT Scan Report ---
ABDOMEN AND PELVIS CT WITH IV CONTRAST CT DOSE: 1732.99 mGy.cm HISTORY: Fall. Back pain. Trauma TECHNIQUE: Multiaxial CT images of the abdomen and pelvis were performed following the use of intrave nous contrast. A dose lowering technique was utilized adhering to the principles of ALARA. COMPARISON STUDY: Abdomen and pelvis CT 03/06/2017. FINDINGS: There is a burst fracture at L1 demonstrating up to 10% loss of height centrally. No signif icant retropulsion. Paravertebral edema noted at this level. Mild dependent changes seen at the lung bases. No pneumoperitoneum. No pneumatosis. There are healing bilateral anterior rib fractures. Arin cystectomy. The liver, spleen, right adrenal gland, and pancreas are unremarkable. Stable 2.5 cm left adrenal gland nodule. No retroperitoneal lymphadenopathy. Calcified plaque within the normal caliber abdominal aorta. No pelvic free fluid. The bladder is unremarkable. A few colonic diverticula. No ev idence for acute diverticulitis. No bowel wall thickening or obstruction. Normal appendix. IMPRESSION: 1. An acute L1 burst fracture demonstrating up to 10% loss of height. No significant retropulsion. 2. Healing bilateral anterior rib fractures. 3. Additional findings as described above. ACT 112: Negative or not required by law. Electronically signed by: Marcin Munguia M.D. 04/07/2022 9:00 AM
[2022-04-07 09:08] LABS: Appearance Urine Cloudy (Clear); Bacteria Urine Automated Negative (Negative); Bilirubin Urine Negative (Negative); Blood Urine 1+ (Negative); Cast Urine Automated 0 /lpf (0-5); Color Urine Yellow; Epithelial Cell Urine Auto >30 /lpf (0-5); Glucose Urine UA 3+ (Negative); Ketones Urine Trace (Negative); Leukocyte Esterase Urine Negative (Negative); Nitrite Urine Negative (Negative); Protein Urine 3+ (Negative); Specific Gravity Urine 1.041 (1.000-1.030); Urobilinogen Urine Negative (Negative)
[2022-04-07] MEDS ORDERED: bisacodyL 10 MG SUPP PR PRN (09:40)
--- NOTE | 2022-04-07 10:03 | Electrocardiogram Report ---
Test Reason : Blood Pressure : / mmHG Vent. Rate : 066 BPM Atrial Rate : 066 BPM P-R Int : 160 ms QRS Dur : 094 ms QT Int : 412 ms P-R-T Axes : 029 -14 042 degrees QTc Int : 431 ms Normal sinus rhythm Normal ECG When compared with ECG of 04-MAR-2022 23:19, No significant change was found Confirmed by Devang Franco ([id number]) on 04/07/2022 10:03:17 AM Referred By: REFERRED SELF Confirmed By:Jae Franco
[2022-04-07] MEDS: SENNA 8.6 MG TAB PO SCH (10:49)
[2022-04-07] MEDS: DOCUSATE SODIUM 100 MG CAP PO SCH ×2 (10:49→20:32)
[2022-04-07] MEDS: SODIUM ZIRCONIUM CYCLOSILICATE 10 GM PACKET PO SCH (10:50)
--- NOTE | 2022-04-07 11:55 | Orthopedic Consultation ---
Date of Consultation April 07, 2022 Assessment & Plan (1) Closed L1 vertebral fracture: Assessment L1 burst fracture. Plan at this time a lengthy discussion today with the patient regarding his clinical presentation and diagnosis. In light of his body habitus bracing would not be reasonable. I have discussed with him possible surgical treatment. My thought is to trial a L1 kyphoplasty. Hopefully this will be enough to stabilize the bone and avoid a more extensive surgery requiring instrumented fusion. Risk benefits pros cons alternatives were outlined in detail. Patient stands and agrees. I will make him n.p.o. after midnight plan for kyphoplasty tomorrow if medically cleared. History of Present Illness Reason for Consultation: Back pain Attending Physician: Kyaw Hudson MD History of Present Illness This is a 66-year-old male that a fall approximately 6 days ago at home. He states he is essentially bedbound after this fall with significant back pain. He was eventually taken emergency room last evening and diagnosed with an L1 burst fracture. Today he continues to have back pain. He is relatively comfo rtable supine in bed. He has no numbness or tingling to lower extremities. He does have numbness chronic in nature lower extremity secondary to longstanding diabetes and neuropathy. Allergies Allergy/AdvReac Type Severity Reaction Status Date / Time No Known Allergies Allergy Verified 04/06/22 20:22 Home Medications Medication Instructions Recorded Confirmed Type aspirin 81 mg chewable tablet 81 mg PO QAM 07/26/20 04/06/22 History lancets (Accu-Chek Fastclix Lancet 08/23/20 03/22/22 History Drum) FreeStyle Remigio 2 [place] (flash #1 ea 01/24/21 03/22/22 Rx glucose scanning reader) FreeStyle Remigio 2 Sensor (flash #7 ea 01/24/21 03/22/22 Rx glucose sensor) BD Ultra-Fine Mini Pen Needle 31 #400 ea 06/07/21 03/22/22 Rx gauge x 3/16" (pen needle, diabetic) ergocalciferol (vitamin D2) 1,250 1,250 mcg PO Q7D 08/07/21 04/06/22 History mcg (50,000 unit) capsule tamsulosin 0.4 mg capsule 0.4 mg PO HS 08/07/21 04/06/22 History blood sugar diagnostic (Accu-Chek #50 ea 10/01/21 03/22/22 Rx Guide test strips) duloxetine 20 mg capsule,delayed 20 mg PO BID #180 caps 10/10/21 04/06/22 Rx release (Cymbalta) insulin glargine 100 unit/mL (3 65 unit (0.65 mL) subcut QAM 90 10/16/21 04/06/22 Rx mL) subcutaneous pen (Basaglar days #60 mL KwikPen U-100 Insulin) insulin aspart U-100 100 unit/mL 80 unit subcut TID 10/23/21 04/06/22 History (3 mL) subcutaneous pen (Novolog Flexpen U-100 Insulin aspart) mecobalamin (vitamin B12) 1,000 1,000 mcg PO QAM 01/17/22 04/06/22 History mcg lozenges sodium zirconium cyclosilicate 5 5 g PO DAILY #30 ea 01/24/22 04/06/22 Rx gram oral powder packet (Lokelma) metformin 500 mg tablet 500 mg PO BID 90 days #180 tabs 01/29/22 04/06/22 Rx aluminum-mag hydroxide-simethicone 10 ml PO TID #355 mL 03/06/22 04/06/22 Rx 400 mg-400 mg-40 mg/5 mL oral susp (Mylanta Maximum Strength) famotidine 20 mg tablet (Pepcid AC) 20 mg PO BID #30 tabs 03/06/22 04/06/22 Rx atorvastatin 10 mg tablet (Lipitor) 10 mg PO HS 03/21/22 04/06/22 History empagliflozin 25 mg tablet 25 mg PO QAM 03/21/22 04/06/22 History (Jardiance) furosemide 20 mg tablet (Lasix) 20 mg PO QAM 03/27/22 04/06/22 History pantoprazole 40 mg tablet,delayed 40 mg PO BID 03/27/22 04/06/22 History release (Protonix) Lactobacillus acidophilus 10 10,000 mmu cells PO BID 04/06/22 04/06/22 History billion cell capsule (Probiotic) Patient History Medical History Acquired hallux rigidus of right foot BPH loc w urin obs/LUTS (Unknown) CAD (coronary artery disease) Chronic, heavily calcified severe mid LAD disease (70 to 80% by IVUS) per 11/05/21 cardiac cath- medically managed Cardiopulmonary arrest with successful resuscitation - 11/06/2021, [facility]>"in to have a PICC line placed for abx tx, flatlined" - Etiology of arrest seems unclear- seems that this was a PEA arrest per 11/06/21 cardio note CKD (chronic kidney disease) Diabetes mellitus, type 2 IDDM Disc degeneration, lumbar Dyslipidemia Per records Eczema GERD (gastroesophageal reflux disease) OCCASIONAL Hx MRSA infection 10/19/21, lt great toe, dx [facility] Hypertension Per records Morbid obesity Necrotizing fasciitis of ankle and foot S/P IV ANTIBIOTICS/PICC LINE/WOUND VAC DURING 02/2018 [facility] ADMISSION Osteomyelitis PAD (peripheral artery disease) Per records Pancreatitis ~ Pneumonia 11/2021, after being discharged from hospital Psoriasis Sleep apnea NO DEVICE S/P UPPP Surgical History History of adenoidectomy History of cardiac cath following an unexplained cardiac arrest>per medical record>11/05/21, [facility], no stents History of cataract surgery bilt History of cholecystectomy History of colonoscopy Colonoscopy 01/21/[address] Garg. History of incision and drainage Hx of I&D of mendel-rectal abscess History of tonsillectomy History of tooth extraction S/P foot surgery, left Status post uvulopalatopharyngoplasty Family History Mother Family history of diabetes mellitus Father History of alcoholism History of liver cancer Sister Cancer Denies family history of Ovarian cancer Prostate cancer Crohn's disease Breast cancer Colorectal cancer Social History Smoking Status: Former smoker Second Hand Exposure: No; Hx Alcohol Use: No Hx Substance Use: No Preferred Language: Burkinan Communication Ability: Effective Visual Impairment: No Limitations Hearing Ability: Normal Optometric Technician Required: No Beliefs That Will Affect Care: None marital status: Current Living Situation: Spouse Current Living Situation Comment: Lives with and dog current occupational status: employed 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 Feels Safe at Home: Yes Childhood Exposure to Second-Hand Smoke: Yes Diet Comment: "tries to feed me right, but sometimes it doesn't always happen" during the past year weight has: remained stable Physical Activity Frequency: Does not Exercise Seatbelt Use: never Assistive Devices: Walker Physical Exam Physical Exam: On exam he is alert and oriented. Is reasonable strength testing lower extremities. Results & Data ([facility]) Vital Signs (Past 12 Hours) Vital Signs Temp Pulse Pulse Resp BP BP Pulse Ox 04/07/22 07:12 36.4 C L 56 L 16 177/67 H 95 04/07/22 02:15 04/07/22 02:15 36.5 C 90 18 148/84 H 94 04/07/22 01:29 60 04/07/22 01:00 61 20 150/101 H 04/07/22 00:15 60 19 141/101 H 99 04/07/22 00:01 63 22 161/96 H 100 04/07/22 01:41 61 20 139/75 93 O2 Del Method 04/07/22 07:12 Room Air 04/07/22 02:15 Room Air 04/07/22 02:15 Room Air 04/07/22 01:29 Room Air 04/07/22 01:00 04/07/22 00:15 Room Air 04/07/22 00:01 Room Air 04/07/22 01:41 Room Air
--- NOTE | 2022-04-07 16:19 | XRay Report ---
XR chest 1V portable HISTORY: pre-op COMPARISON: Chest 02/24/2022. FINDINGS: No pneumothorax. No pleural effusions. The cardiac silhouette remains mildly enlarged. Ther e is mild interstitial thickening, unchanged. This is likely chronic. Healing bilateral anterior rib fractures are noted. IMPRESSION: Stable mild cardiomegaly. Otherwise, no acute process within the chest. ACT 112: Negative or not required by law. Electronically signed by: Marcin Munguia M.D. 04/07/2022 4:17 PM
[2022-04-07] MEDS: TAMSULOSIN HCL 0.4 MG CAP PO SCH (20:31)
[2022-04-07] MEDS: ATORVASTATIN 10 MG TAB PO SCH (20:31)
[2022-04-08] MEDS ORDERED: Nursing to Pharmacy Communication SCH (00:30)
[2022-04-08] MEDS: MoRPHine SULFATE 4 MG/ML 1 ML CARP\\VIAL IV PRN ×2 (02:41→12:09)
[2022-04-08] MEDS: INSULIN ASPART PER UNIT SC SCH ×3 (06:07→17:28)
[2022-04-08 06:26] LABS: Hematocrit (blood only) 34.5 % (40.1-51.0); Hemoglobin 11.5 g/dl (14.0-18.0); Mean Corpuscular Hemoglobin 27.4 pg (25.0-34.0); Mean Corpuscular Hgb Conc 33.3 g/dL (32.0-36.0); Mean Corpuscular Volume 82.3 fL (80.0-100.0); Mean Platelet Volume 9.4 fL (9.4-12.4); Platelet Count 149 K/uL (130-400); RDW Coefficient of Variation 13.2 % (11.5-14.5); RDW Standard Deviation 39.5 fL (36.4-46.3); Red Blood Count 4.19 M/uL (4.63-6.08); White Blood Count 4.88 K/ul (4.8-10.8)
[2022-04-08 06:56] LABS: BUN Creatinine Ratio 18.7 (10-20); Calcium 8.6 mg/dl (8.5-10.1); Creatinine Clr Calc Pharmacy 62.1 ml/min; Est GFR (Non-African American) 42.3 ml/min; Potassium 4.1 mmol/L (3.5-5.1)
[2022-04-08 07:22] LABS: Vitamin B12 > 1500 pg/ml (180-914)
[2022-04-08] MEDS: SODIUM CHLORIDE 0.9% 1000ML 1,000 ML IV SCH ×2 (07:34→20:43)
[2022-04-08] MEDS: FAMOTIDINE 20 MG TAB PO SCH (07:43)
[2022-04-08] MEDS: DULoxetine HCL 20 MG CAP PO SCH (07:44)
[2022-04-08] MEDS: PANTOprazole 40 MG TAB PO SCH (07:44)
[2022-04-08] MEDS: ENOXAPARIN INJ 40 MG/0.4 ML SYR SQ SCH (07:45)
[2022-04-08] MEDS: SENNA 8.6 MG TAB PO SCH (07:45)
[2022-04-08] MEDS: DOCUSATE SODIUM 100 MG CAP PO SCH (07:45)
[2022-04-08] MEDS: LANTUS PER UNIT CHARGE SQ SCH ×2 (07:48→22:07)
--- NOTE | 2022-04-08 08:08 | Hospitalist Progress Note ---
Date of Service April 08, 2022 Assessment & Plan (1) Closed L1 vertebral fracture: Plan: 66yo male s/p ground level fall 5 days ago resulting in L1 burst fracture. Patient with severe, persistent pain. No neurological complaints. Of note, patient had Left Foot Second Toe Amputation by Dr Disla on 03/27/22, possibly contributing to why patient fell EKG NSR, no chest pain. CXR w/ stable cardiomegaly. Cards consulted for clearance for surgery Ortho consulted Pain control/antiemetics prn IVF for hydration x 2L on admit for hydration ., gentle IVF while NPO NPO currently for surgery IVF while NPO, BUN/Cr improving (patient reported not eating/drinking well at home past couple of days due to above) Bowel regimen -- no BM since last friday reported. made scheduled colace BID, added scheduled senna. Passing gas, asked about dulcolax suppository, declined this morning for nursing as stated having passing gas Did discuss with patient would have liked to have moving prior to surgery to limit need to strain for BM following surgery Held ASA for this morning PT/OT consults following surgery, labs in AM (2) Hypertension: Plan: BPs elevated on admit, 2nd to pain. No headache/visual changes Currently 155/82, reporting 5/10 pain Lasix on hold given dehydration on IVF Monitor BP Previously on lisinopril 20mg. Monitor/possible resume, emile given DM as well. Will monitor BP/resume if able. Prior admit in November w/ recs to start amlodipine 10mg, however patient unsure if taking this ether (appears lisinopril d/c due to recurrent hyperkalemia). Does appear heart rates have been in the 50- 60s, possibly not best choice with amlodipine 10mg and could do lower dose (3) PAD (peripheral artery disease): Plan: Chronic -Continue ASA 81mg po daily -- held this morning for surgery, resume when ok w/ ortho -Continue Atorvastatin (4) Dyslipidemia: Plan: Chronic -Continue Atorvastatin 10mg po qHS (5) CKD (chronic kidney disease): Plan: Chronic. Stable Baseline actually had been closer to 2s, but had not been eating/drinking much. Cr improved 1.83--> 1.66, remains on IVF and lasix held as above as still with decently poor PO intake -Avoid nephrotoxic agents. -Renal dosing as needed BMP in AM (6) Depression: Plan: Chronic. -Continue Cymbalta 20mg po BID (7) GERD (gastroesophageal reflux disease): Plan: Chronic. Symptoms well controlled on home medications -Continue Pepcid 20mg po BID -Continue Protonix 40mg po BID (8) Diabetes mellitus with diabetic polyneuropathy: Plan: Blood sugar elevated presently at 211. Patient reports he has not taken his insulin for several days but that sugars have been 150s at home Last HgbA1C on 03/06/22 = 7.5. Diabetes complicated by CKD and peripheral neuropathy. Patient with recent amputation of the left 2nd toe on 03/27/22. -Lantus 30u BID -ISS -Goal blood sugar 110 - 140 -Wound care to toe as needed BSG Q6 while NPO, reduction in basal insulin while NPO Not on lisinopril anymore due to recurrent hyperkalemia. 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 If any surgery for burst fracture, would consult for pre-op clearance Last ECHO in November, grade I diastolic dysfunction No CP reported, EKG on admit NSR Cards consulted for pre-op clearance, however noted did just have cards clearanc e prior to toe amputation at end of March DVT prophylaxis -- Lovenox SQ while inpatient -- AM dose held for surgery Plan NPO for kyphoplasty with Dr Valdez today Admission and Anticipated Discharge Date Admission Date: April 07, 2022 Supervising Physician Co-Signing Physician Notes The patient was not seen by me. Case discussed with ROXY Etienne. Chart reviewed. Agree with assessment and plan Subjective Eval this morning, resting in bed. Pain 5/10 currently, tolerable with ordered medications. On gentle IVF while awaiting surgery. Assisted to bathroom to urinate with walker, passing some gas but no BM. Has gotten suppository in the past. Would like to try and move his bowels. I did discuss with Dr Alvarado about suppository prior to surgery if not able to move his bowels. No fevers/chills, chest pain, shortness of breath, nausea or vomiting. He states he had some PO intake last night, improved from at home but still fair ly poor. Questions/concerns addressed at this time. Review of Systems Review of Systems: All systems reviewed & are unremarkable except as noted in HPI & below Physical Exam Physical Exam: General: patient resting comfortably in bed, NAD, alert/oriented x 4, cooperative and pleasant HEENT: head normocephalic, mm improved, trachea midline Resp: CTA, diminished in the bases, on room air, no wheezing/rales CV: RRR, no m/r/g, chronic edema, nonpitting, pulses diminished but palpable, , calves nontender to palpation, cap refill wnl GI: +BS, distended, nontender ; no barrett MSK/Neuro: b/l neuropathy, moves all extremities, no facial droop/slurred speech tenderness to palpation thoracic spine, equal strength dorsiflexion/plantarflexion amputation to left toe w/ dressing in place, no evidence for infection at present assisted to bathroom with walker, tender to palpation lumber spine Psych: AOx3, cooperative Results & Data Results & Data ([facility]) Vital Signs (Past 12 Hours) Vital Signs Temp Pulse Resp BP Pulse Ox O2 Del Method 04/08/22 07:37 36.4 C L 54 L 16 155/82 H 95 Room Air 04/07/22 20:42 36.4 C L 66 16 157/72 H 97 Room Air Laboratory Results 04/08/22 04/08/22 04/08/22 Range/Units 12:05 06:01 05:52 WBC (4.8-10.8) K/ul RBC (4.63-6.08) M/uL Hgb (14.0-18.0) g/dl Hct (40.1-51.0) % MCV (80.0-100.0) fL MCH (25.0-34.0) pg MCHC (32.0-36.0) g/dL RDW Std Deviation (36.4-46.3) fL RDW Coeff of Mejia (11.5-14.5) % Plt Count (130-400) K/uL MPV (9.4-12.4) fL Sodium 137 (136-145) mmol/L Potassium 4.1 (3.5-5.1) mmol/L Chloride 104 (98-107) mmol/L Carbon Dioxide 27 (21-32) mmol/L Anion Gap 6 (3-11) BUN 31 H (6-23) mg/dl Creatinine 1.66 H (0.6-1.4) mg/dl Est Cr Clr Drug Dosing 62.1 ml/min Est GFR ( Amer) 49.0 ml/min Est GFR (Non-Af Amer) 42.3 ml/min BUN/Creatinine Ratio 18.7 (10-20) Glucose 117 H (70-99(Fasting)) mg/dl POC Glucose 140 H 126 H (70-99) mg/dl Calcium 8.6 (8.5-10.1) mg/dl Vitamin B12 (180-914) pg/ml Folate (>5.38) ng/ml 04/08/22 04/08/22 04/07/22 Range/Units 05:52 05:52 20:22 WBC 4.88 (4.8-10.8) K/ul RBC 4.19 L (4.63-6.08) M/uL Hgb 11.5 L (14.0-18.0) g/dl Hct 34.5 L (40.1-51.0) % MCV 82.3 (80.0-100.0) fL MCH 27.4 (25.0-34.0) pg MCHC 33.3 (32.0-36.0) g/dL RDW Std Deviation 39.5 (36.4-46.3) fL RDW Coeff of Mejia 13.2 (11.5-14.5) % Plt Count 149 (130-400) K/uL MPV 9.4 (9.4-12.4) fL Sodium (136-145) mmol/L Potassium (3.5-5.1) mmol/L Chloride (98-107) mmol/L Carbon Dioxide (21-32) mmol/L Anion Gap (3-11) BUN (6-23) mg/dl Creatinine (0.6-1.4) mg/dl Est Cr Clr Drug Dosing ml/min Est GFR ( Amer) ml/min Est GFR (Non-Af Amer) ml/min BUN/Creatinine Ratio (10-20) Glucose (70-99(Fasting)) mg/dl POC Glucose 193 H (70-99) mg/dl Calcium (8.5-10.1) mg/dl Vitamin B12 > 1500 H (180-914) pg/ml Folate 20.14 (>5.38) ng/ml 04/07/22 Range/Units 17:01 WBC (4.8-10.8) K/ul RBC (4.63-6.08) M/uL Hgb (14.0-18.0) g/dl Hct (40.1-51.0) % MCV (80.0-100.0) fL MCH (25.0-34.0) pg MCHC (32.0-36.0) g/dL RDW Std Deviation (36.4-46.3) fL RDW Coeff of Mejia (11.5-14.5) % Plt Count (130-400) K/uL MPV (9.4-12.4) fL Sodium (136-145) mmol/L Potassium (3.5-5.1) mmol/L Chloride (98-107) mmol/L Carbon Dioxide (21-32) mmol/L Anion Gap (3-11) BUN (6-23) mg/dl Creatinine (0.6-1.4) mg/dl Est Cr Clr Drug Dosing ml/min Est GFR ( Amer) ml/min Est GFR (Non-Af Amer) ml/min BUN/Creatinine Ratio (10-20) Glucose (70-99(Fasting)) mg/dl POC Glucose 147 H (70-99) mg/dl Calcium (8.5-10.1) mg/dl Vitamin B12 (180-914) pg/ml Folate (>5.38) ng/ml Diagnostic Findings Chest X-Ray 04/07/22 15:38 XR chest 1V portable HISTORY: pre-op COMPARISON: Chest 02/24/2022. FINDINGS: No pneumothorax. No pleural effusions. The cardiac silhouette remains mildly enlarged. There is mild interstitial thickening, unchanged. This is likely chronic. Healing bilateral anterior rib fractures are noted. IMPRESSION: Stable mild cardiomegaly. Otherwise, no acute process within the chest. ACT 112: Negative or not required by law. Electronically signed by: Marcin Munguia M.D. 04/07/2022 4:17 PM PG Care Time/CCT Total # of Minutes Spent Total Time Spent with Patient: Total time spent is greater than 50% in coordination of care (as documented) at patient's floor/unit and/or counseling patient: Coding Level of Care Code 14300 Subseq Hosp Care Lvl 2 Diagnoses Closed L1 vertebral fracture S32.019A Hypertension I10 PAD (peripheral artery disease) I73.9 Dyslipidemia E78.5 CKD (chronic kidney disease) N18.9 Depression F32.9 GERD (gastroesophageal reflux disease) K21.9 Diabetes mellitus with diabetic polyneuropathy E11.42 Diabetes mellitus long-term insulin use: unspecified long-term insulin use status Diabetes mellitus type: type 2 CAD in [place] artery I25.10 (1) Diabetes mellitus with diabetic polyneuropathy Diabetes mellitus intermediate card tender insulin use: unspecified long-term insulin 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
[2022-04-08] MEDS: SODIUM ZIRCONIUM CYCLOSILICATE 10 GM PACKET PO SCH (10:42)
[2022-04-08] MEDS: ONDANSETRON INJ 2 MG/ML 2 ML VIAL IV PRN ×3 (12:09→22:33)
[2022-04-08] MEDS ORDERED: fentaNYL citrate 100 MCG/2 ML VIAL IV PRN (13:11)
[2022-04-08] MEDS ORDERED: PROMETHAZINE HCL 6.25 MG in SODIUM CHLORIDE 0.9% 50 ML IV PRN (13:11)
[2022-04-08] MEDS ORDERED: ATROPINE SULFATE 0.1 MG/ML 10ML SYR IV PRN (13:11)
[2022-04-08] MEDS ORDERED: ePHEDrine sulfate 50 MG/ML AMP IV PRN (13:11)
[2022-04-08] MEDS ORDERED: ONDANSETRON INJ 2 MG/ML 2 ML VIAL IV PRN (13:11)
--- NOTE | 2022-04-08 13:11 | Anesthesiology Consultation ---
Date of Service April 08, 2022 Assessment & Plan Chart Review Chart Review: Acceptable Risk for Surgery and Patient NOT seen in Pre Admission Testing Consults Requested none ASA ASA3 Proposed Anesthesia Anesthesia Type: General Risk / Benefits Reviewed With: PT / POA / Parent / Guardian, Accepts Plan and Informed Consent Obtained History Surgery Operation Date: 04/08/22 07:00 Proposed Procedures p L1 Kyphoplasty - Kd Valdez, Height/Weight Height: 5 ft 9 in Weight: 144.5 kg Allergies Allergy/AdvReac Type Severity Reaction Status Date / Time No Known Allergies Allergy Verified 04/06/22 20:22 Medications Home Medications Medication Instructions Recorded Confirmed Last Taken aspirin 81 mg chewable tablet 81 mg PO QAM 07/26/20 04/06/22 04/01/22 lancets (Accu-Chek Fastclix Lancet 08/23/20 03/22/22 Unknown Drum) FreeStyle Remigio 2 [place] (flash #1 ea 01/24/21 03/22/22 Unknown glucose scanning reader) FreeStyle Remigio 2 Sensor (flash #7 ea 01/24/21 03/22/22 Unknown glucose sensor) BD Ultra-Fine Mini Pen Needle 31 #400 ea 06/07/21 03/22/22 Unknown gauge x 3/16" (pen needle, diabetic) ergocalciferol (vitamin D2) 1,250 1,250 mcg PO Q7D 08/07/21 04/06/22 Unknown mcg (50,000 unit) capsule tamsulosin 0.4 mg capsule 0.4 mg PO HS 08/07/21 04/06/22 04/01/22 blood sugar diagnostic (Accu-Chek #50 ea 10/01/21 03/22/22 Unknown Guide test strips) duloxetine 20 mg capsule,delayed 20 mg PO BID #180 caps 10/10/21 04/06/22 04/01/22 release (Cymbalta) insulin glargine 100 unit/mL (3 65 unit (0.65 mL) subcut QAM 90 10/16/21 04/06/22 04/01/22 mL) subcutaneous pen (Basaglar days #60 mL KwikPen U-100 Insulin) insulin aspart U-100 100 unit/mL 80 unit subcut TID 07/19/22 12/31/22 12/26/22 (3 mL) subcutaneous pen (Novolog Flexpen U-100 Insulin aspart) mecobalamin (vitamin B12) 1,000 1,000 mcg PO QAM 01/17/22 04/06/22 04/01/22 mcg lozenges sodium zirconium cyclosilicate 5 5 g PO DAILY #30 ea 01/24/22 04/06/22 04/01/22 gram oral powder packet (Lokelma) metformin 500 mg tablet 500 mg PO BID 90 days #180 tabs 01/29/22 04/06/22 04/01/22 aluminum-mag hydroxide-simethicone 10 ml PO TID #355 mL 03/06/22 04/06/22 04/01/22 400 mg-400 mg-40 mg/5 mL oral susp (Mylanta Maximum Strength) famotidine 20 mg tablet (Pepcid AC) 20 mg PO BID #30 tabs 03/06/22 04/06/22 04/01/22 atorvastatin 10 mg tablet (Lipitor) 10 mg PO HS 03/21/22 04/06/22 04/01/22 empagliflozin 25 mg tablet 25 mg PO QAM 03/21/22 04/06/22 04/01/22 (Jardiance) furosemide 20 mg tablet (Lasix) 20 mg PO QAM 03/27/22 04/06/22 04/01/22 pantoprazole 40 mg tablet,delayed 40 mg PO BID 03/27/22 04/06/22 04/01/22 release (Protonix) Lactobacillus acidophilus 10 10,000 mmu cells PO BID 04/06/22 04/06/22 04/01/22 billion cell capsule (Probiotic) Active Medications Generic Name Dose Route Start Last Admin Trade Name Freq PRN Reason Stop Dose Admin Aspirin 81 mg 04/07/22 09:00 04/07/22 08:59 Aspirin 81 Mg Chew PO 05/07/22 08:59 81 mg QAM LIANA Administration Atorvastatin Calcium 10 mg 04/07/22 21:00 04/07/22 20:31 Atorvastatin 10 Mg Tab PO 05/07/22 20:59 10 mg HS LIANA Administration Docusate Sodium 100 mg 04/07/22 09:30 04/08/22 07:45 Docusate Sodium 100 Mg Cap PO 05/07/22 09:29 Not Given BID LIANA Duloxetine HCl 20 mg 04/07/22 09:00 04/08/22 07:44 Duloxetine Hcl 20 Mg Cap PO 05/07/22 08:59 20 mg BID LIANA Administration Enoxaparin Sodium 40 mg 04/07/22 09:00 04/08/22 07:45 Enoxaparin Inj 40 Mg/0.4 Ml Syr SQ 05/07/22 08:59 Not Given Q24H LIANA Famotidine 20 mg 04/07/22 09:00 04/08/22 07:43 Famotidine 20 Mg Tab PO 05/07/22 08:59 20 mg BID LIANA Administration Sodium Chloride 1,000 mls @ 75 mls/hr 04/08/22 07:30 04/08/22 07:34 Nss 1000ml IV 05/08/22 07:29 75 mls/hr .[id number] LIANA Administration Insulin Aspart 0 units 04/08/22 06:00 04/08/22 12:14 Insulin Aspart Per Unit SC 05/08/22 05:59 Not Given Q6 LIANA Insulin Glargine 30 units 04/07/22 09:00 04/08/22 07:48 Lantus Per Unit Charge SQ 05/07/22 08:59 Not Given BID LIANA Morphine Sulfate 2 mg 04/07/22 02:29 04/07/22 16:06 Morphine Sulfate 2 Mg/Ml Carp IV 04/21/22 02:28 2 mg Q3H PRN Administration Pain (1,2,3,4,5) & Pre PT Morphine Sulfate 4 mg 04/07/22 02:29 04/08/22 12:09 Morphine Sulfate 4 Mg/Ml 1 Ml Carp\\Vial IV 04/21/22 02:28 4 mg Q3H PRN Administration Pain (6,7,8,9,10) Ondansetron HCl 4 mg 04/08/22 11:57 04/08/22 12:09 Ondansetron Inj 2 Mg/Ml 2 Ml Vial IV 05/08/22 11:56 4 mg Q4H PRN Administration Nausea Pantoprazole Sodium 40 mg 04/07/22 09:00 04/08/22 07:44 Pantoprazole 40 Mg Tab PO 05/07/22 08:59 40 mg BID LIANA Administration Sennosides 8.6 mg 04/07/22 09:30 04/08/22 07:45 Senna 8.6 Mg Tab PO 05/07/22 09:29 Not Given QAM LIANA Sodium Zirconium Cyclosilicate 5 gm 04/07/22 11:00 04/08/22 10:42 Sodium Zirconium Cyclosilicate 10 Gm Packet PO 05/07/22 10:59 5 gm DAILY@1100 LIANA Administration Tamsulosin HCl 0.4 mg 04/07/22 21:00 04/07/22 20:31 Tamsulosin Hcl 0.4 Mg Cap PO 05/07/22 20:59 0.4 mg HS LIANA Administration NPO Date Last Intake of Fluids: 04/07/22 Time Last Intake of Fluids: 23:00 Last Intake of Fluids Comment: sip water with meds 0900 Date Last Intake of Solids: 04/07/22 Time Last Intake of Solids: 20:00 Past Medical History Medical History Acquired hallux rigidus of right foot BPH loc w urin obs/LUTS (Unknown) CAD (coronary artery disease) Chronic, heavily calcified severe mid LAD disease (70 to 80% by IVUS) per 11/05/21 cardiac cath- medically managed Cardiopulmonary arrest with successful resuscitation - 11/06/2021, [facility]>"in to have a PICC line placed for abx tx, flatlined" - Etiology of arrest seems unclear- seems that this was a PEA arrest per 11/06/21 cardio note CKD (chronic kidney disease) Diabetes mellitus, type 2 IDDM Disc degeneration, lumbar Dyslipidemia Per records Eczema GERD (gastroesophageal reflux disease) OCCASIONAL Hx MRSA infection 10/19/21, lt great toe, dx [facility] Hypertension Per records Morbid obesity Necrotizing fasciitis of ankle and foot S/P IV ANTIBIOTICS/PICC LINE/WOUND VAC DURING 02/2018 [facility] ADMISSION Osteomyelitis PAD (peripheral artery disease) Per records Pancreatitis ~2014/2015 Pneumonia 11/2021, after being discharged from hospital Psoriasis Sleep apnea NO DEVICE S/P UPPP Exercise / Class Metabolic Activity II 4-5 Yardwork/Stairs/Walk up hill Past Family History Family History Mother Family history of diabetes mellitus Father History of alcoholism History of liver cancer Sister Cancer Denies family history of Ovarian cancer Prostate cancer Crohn's disease Breast cancer Colorectal cancer Past Surgical History Surgical History History of adenoidectomy History of cardiac cath following an unexplained cardiac arrest>per medical record>11/05/21, [facility], no stents History of cataract surgery bilt History of cholecystectomy History of colonoscopy Colonoscopy 01/21/[address] Garg. History of incision and drainage Hx of I&D of mendel-rectal abscess History of tonsillectomy History of tooth extraction S/P foot surgery, left Status post uvulopalatopharyngoplasty Past Anesthesia History No Hx of Anesthesia Complications and No Family Hx of Anesthesia Complications History of PONV No Hx of PONV and No Hx of Motion Sickness Social History Smoking Status: Former smoker tobacco type: cigarettes Hx Alcohol Use: No Alcohol type: beer alcohol intake frequency: holidays/special occasions only Hx Substance Use: No substance use type: does not use Physical Exam Vital Signs Last Vital Signs Temp 36.4 C L 04/08/22 12:58 Pulse 59 L 04/08/22 12:58 Resp 20 04/08/22 12:58 BP 140/78 04/08/22 12:58 Pulse Ox 100 04/08/22 12:58 O2 Del Method 04/08/22 12:58 Constitutional + morbidly obese ENMT Mouth: no dentition abnormality Thyromental Distance: > or= 3.5 Finger Breadths Mallampati Class: II Neck normal visual inspection Respiratory normal respiratory effort Auscultation: lungs clear to auscultation bilaterally Cardiovascular Rate/Rhythm: regular rate and regular rhythm Psychiatric Orientation: alert Testing Laboratory Results 04/08/22 05:52 04/08/22 05:52 PT 11.5 Seconds (9.0-12.0) 04/06/22 21:37 INR 1.1 (0.9-1.1) 04/06/22 21:37 Urine Color Yellow 04/07/22 08:00 Urine Appearance Cloudy (Clear) A 04/07/22 08:00 Urine pH 5.0 (4.5-7.5) 04/07/22 08:00 Ur Specific [place] 1.041 (1.000-1.030) H 04/07/22 08:00 Urine Protein 3+ (Negative) H 04/07/22 08:00 Urine Glucose (UA) 3+ (Negative) H 04/07/22 08:00 Urine Ketones Trace (Negative) H 04/07/22 08:00 Urine Nitrite Negative (Negative) 04/07/22 08:00 Ur Leukocyte Esterase Negative (Negative) 04/07/22 08:00 Urine WBC (Auto) 1-5 /hpf (0-5) 04/07/22 08:00 Urine RBC (Auto) 5-10 /hpf (0-4) H 04/07/22 08:00 U Hyaline Cast (Auto) 0 /lpf (0-5) 04/07/22 08:00 U Epithel Cells (Auto) >30 /lpf (0-5) H 04/07/22 08:00 Urine Bacteria (Auto) Negative (Negative) 04/07/22 08:00 04/08/22 04/08/22 12:05 06:01 POC Glucose 140 H 126 H
[2022-04-08] MEDS ORDERED: ROCURONIUM BROMIDE 10 MG/ML 5 ML VIAL IV ONE (13:14)
[2022-04-08] MEDS ORDERED: fentaNYL citrate 100 MCG/2 ML VIAL ONE (13:15)
[2022-04-08] MEDS ORDERED: MIDAZOLAM HCL 1 MG/ML 2ML VIAL ONE (13:15)
--- NOTE | 2022-04-08 13:28 | History & Physical Bridge Note ---
Date of Service April 08, 2022 History & Physical Bridge Note I have examined the patient, reviewed the History & Physical and in the interval since the performance of the History & Physical I have noted the following changes of clinical significance: no changes noted L1 kyphoplasty
[2022-04-08] MEDS ORDERED: LIDOCAINE 2% MPF LOCAL 5 ML VIAL INFIL ONE (13:38)
[2022-04-08] MEDS ORDERED: PROPOFOL IV EMULSION 10 MG/ML 20 ML VIAL IV ONE (13:38)
[2022-04-08] MEDS ORDERED: BUPIVACAINE/EPINEPHRINE 0.5% MPF 1:200,000 30 ML VIAL ONE (13:41)
--- NOTE | 2022-04-08 13:49 | Cardiology Consultation ---
Date of Consultation April 08, 2022 Assessment & Plan (1) CAD in [place] artery: (2) Cardiopulmonary arrest with successful resuscitation: Plan 1. Cardiac arrest: This occurred in November of this year. It occurred while a PICC line was being placed for antibiotic therapy. This was reported as a PA arrest and did not appear to be associated with an acute coronary syndrome or known ventricular arrhythmia. Cardiac evaluation did reveal some obstructive coronary disease but preserved LV systolic function. Patient subsequently recovered and has not had symptoms of coronary disease since. 2. Coronary disease: He does have obstructive coronary disease based on his angiography. He does not manifest symptoms of coronary disease likely due to his sedentary condition. Unfortunately he has poor mobility overall. Was placed on a regimen for secondary prevention to include daily aspirin and moderate-dose atorvastatin. It seems that he will require operative intervention to maintain mobility in to alleviate pain. In the setting of stable coronary disease without symptoms, therapy focus is on maintaining good myocardial perfusion and limiting myocardial oxygen demand. Avoid significant anemia, hypoxia, tachycardia, hypotension or hypertension. History of Present Illness Reason for Consultation: Preoperative evaluation Requesting Physician: Katherine Attending Physician: Kyaw Hudson MD History of Present Illness The patient is a 66-year-old gentleman who suffered an [id number] cardiac arrest in November of 2021. This was believed to be a PEA arrest. At that time he underwent echocardiography and coronary angiography. He was noted to have obstructive coronary disease involving the LAD and right coronary, but no acute coronary syndrome. The ventricular function was noted to be normal at that time. Unfortunately, the patient recently suffered a fall and fractured a lumbar vertebrae. This resulted in significant discomfort and loss of mobility. He is scheduled for operative intervention later today. He states that he continues to have difficulty with ambulation due to lower extremity weakness. Commonly ambulates with a walker and has some difficulty transferring. He has not report limitations with respect to chest pain or dyspnea. He does have some stairs at home which she is able to ascend slowly every day. He does get somewhat short of breath at times. No associated chest pain. No palpitations. Occasional dizziness which appears to be related to changes in position. While at 1st he said that he passed out resulting in his back fracture, he did report seeing the ground prior to impact. Allergies Allergy/AdvReac Type Severity Reaction Status Date / Time No Known Allergies Allergy Verified 04/06/22 20:22 Home Medications Medication Instructions Recorded Confirmed Type aspirin 81 mg chewable tablet 81 mg PO QAM 07/26/20 04/06/22 History lancets (Accu-Chek Fastclix Lancet 08/23/20 03/22/22 History Drum) FreeStyle Remigio 2 [place] (flash #1 ea 01/24/21 03/22/22 Rx glucose scanning reader) FreeStyle Remigio 2 Sensor (flash #7 ea 01/24/21 03/22/22 Rx glucose sensor) BD Ultra-Fine Mini Pen Needle 31 #400 ea 06/07/21 03/22/22 Rx gauge x 3/16" (pen needle, diabetic) ergocalciferol (vitamin D2) 1,250 1,250 mcg PO Q7D 08/07/21 04/06/22 History mcg (50,000 unit) capsule tamsulosin 0.4 mg capsule 0.4 mg PO HS 08/07/21 04/06/22 History blood sugar diagnostic (Accu-Chek #50 ea 10/01/21 03/22/22 Rx Guide test strips) duloxetine 20 mg capsule,delayed 20 mg PO BID #180 caps 10/10/21 04/06/22 Rx release (Cymbalta) insulin glargine 100 unit/mL (3 65 unit (0.65 mL) subcut QAM 90 10/16/21 04/06/22 Rx mL) subcutaneous pen (Basaglar days #60 mL KwikPen U-100 Insulin) insulin aspart U-100 100 unit/mL 80 unit subcut TID 10/23/21 04/06/22 History (3 mL) subcutaneous pen (Novolog Flexpen U-100 Insulin aspart) mecobalamin (vitamin B12) 1,000 1,000 mcg PO QAM 01/17/22 04/06/22 History mcg lozenges sodium zirconium cyclosilicate 5 5 g PO DAILY #30 ea 01/24/22 04/06/22 Rx gram oral powder packet (Lokelma) metformin 500 mg tablet 500 mg PO BID 90 days #180 tabs 01/29/22 04/06/22 Rx aluminum-mag hydroxide-simethicone 10 ml PO TID #355 mL 03/06/22 04/06/22 Rx 400 mg-400 mg-40 mg/5 mL oral susp (Mylanta Maximum Strength) famotidine 20 mg tablet (Pepcid AC) 20 mg PO BID #30 tabs 03/06/22 04/06/22 Rx atorvastatin 10 mg tablet (Lipitor) 10 mg PO HS 03/21/22 04/06/22 History empagliflozin 25 mg tablet 25 mg PO QAM 03/21/22 04/06/22 History (Jardiance) furosemide 20 mg tablet (Lasix) 20 mg PO QAM 03/27/22 04/06/22 History pantoprazole 40 mg tablet,delayed 40 mg PO BID 03/27/22 04/06/22 History release (Protonix) Lactobacillus acidophilus 10 10,000 mmu cells PO BID 04/06/22 04/06/22 History billion cell capsule (Probiotic) Patient History Medical History Acquired hallux rigidus of right foot BPH loc w urin obs/LUTS (Unknown) CAD (coronary artery disease) Chronic, heavily calcified severe mid LAD disease (70 to 80% by IVUS) per 11/05/21 cardiac cath- medically managed Cardiopulmonary arrest with successful resuscitation - 11/06/2021, [facility]>"in to have a PICC line placed for abx tx, flatlined" - Etiology of arrest seems unclear- seems that this was a PEA arrest per 11/06/21 cardio note CKD (chronic kidney disease) Diabetes mellitus, type 2 IDDM Disc degeneration, lumbar Dyslipidemia Per records Eczema GERD (gastroesophageal reflux disease) OCCASIONAL Hx MRSA infection 10/19/21, lt great toe, dx [facility] Hypertension Per records Morbid obesity Necrotizing fasciitis of ankle and foot S/P IV ANTIBIOTICS/PICC LINE/WOUND VAC DURING 02/2018 [facility] ADMISSION Osteomyelitis PAD (peripheral artery disease) Per records Pancreatitis ~2015/2016 Pneumonia 11/2021, after being discharged from hospital Psoriasis Sleep apnea NO DEVICE S/P UPPP Surgical History History of adenoidectomy History of cardiac cath following an unexplained cardiac arrest>per medical record>11/05/21, [facility], no stents History of cataract surgery bilt History of cholecystectomy History of colonoscopy Colonoscopy 01/21/[address] Garg. History of incision and drainage Hx of I&D of mendel-rectal abscess History of tonsillectomy History of tooth extraction S/P foot surgery, left Status post uvulopalatopharyngoplasty Family History Mother Family history of diabetes mellitus Father History of alcoholism History of liver cancer Sister Cancer Denies family history of Ovarian cancer Prostate cancer Crohn's disease Breast cancer Colorectal cancer Social History Smoking Status: Former smoker Second Hand Exposure: No; Hx Alcohol Use: No Hx Substance Use: No Preferred Language: Polish Communication Ability: Effective Visual Impairment: No Limitations Hearing Ability: Normal Personnel Recruiter Required: No Beliefs That Will Affect Care: None marital status: Current Living Situation: Spouse Current Living Situation Comment: Lives with and dog current occupational status: employed 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 Feels Safe at Home: Yes Childhood Exposure to Second-Hand Smoke: Yes Diet Comment: "tries to feed me right, but sometimes it doesn't always happen" during the past year weight has: remained stable Physical Activity Frequency: Does not Exercise Seatbelt Use: never Assistive Devices: Walker Review of Systems Review of Systems: Per HPI. Chronic left lower extremity edema Physical Exam Physical Exam: The patient is alert and oriented. Mood and affect appeared normal. He answered all questions appropriately. Morbidly obese HEENT: Pupils are equal and reactive to light and accommodation. Extraocular movements are intact. The sclerae are anicteric. Neuro: Cranial nerves intact Lungs: Clear to auscultation bilaterally. He has good air movement without use of accessory muscles. No rales wheezes or rhonchi. Cardiac: Heart demonstrates a regular rate and rhythm. Normal S1 and S2. No murmurs on examination. Pulses: The patient has palpable radial pulses bilaterally that are equal in intensity Extremities: There was no evidence of hypoperfusion. There is no cyanosis or clubbing. Mild edema involving the left lower extremity. No significant edema on the right. Skin: I did not appreciate any rashes on examination today. Results & Data ([facility]) Vital Signs (Past 12 Hours) Vital Signs Temp Pulse Resp BP Pulse Ox O2 Del Method 04/08/22 12:58 36.4 C L 59 L 20 140/78 100 Room Air 04/08/22 07:37 36.4 C L 54 L 16 155/82 H 95 Room Air Laboratory Results Abnormal Lab Results 04/07/22 04/07/22 04/08/22 17:01 20:22 05:52 WBC RBC Hgb Hct MCV MCH MCHC RDW Std Deviation RDW Coeff of Mejia Plt Count MPV Sodium Potassium Chloride Carbon Dioxide Anion Gap BUN Creatinine Est Cr Clr Drug Dosing Est GFR ( Amer) Est GFR (Non-Af Amer) BUN/Creatinine Ratio Glucose POC Glucose 147 H 193 H Calcium Vitamin B12 > 1500 H Folate 20.14 04/08/22 04/08/22 04/08/22 05:52 05:52 06:01 WBC 4.88 RBC 4.19 L Hgb 11.5 L Hct 34.5 L MCV 82.3 MCH 27.4 MCHC 33.3 RDW Std Deviation 39.5 RDW Coeff of Mejia 13.2 Plt Count 149 MPV 9.4 Sodium 137 Potassium 4.1 Chloride 104 Carbon Dioxide 27 Anion Gap 6 BUN 31 H Creatinine 1.66 H Est Cr Clr Drug Dosing 62.1 Est GFR ( Amer) 49.0 Est GFR (Non-Af Amer) 42.3 BUN/Creatinine Ratio 18.7 Glucose 117 H POC Glucose 126 H Calcium 8.6 Vitamin B12 Folate 04/08/22 12:05 WBC RBC Hgb Hct MCV MCH MCHC RDW Std Deviation RDW Coeff of Mejia Plt Count MPV Sodium Potassium Chloride Carbon Dioxide Anion Gap BUN Creatinine Est Cr Clr Drug Dosing Est GFR ( Amer) Est GFR (Non-Af Amer) BUN/Creatinine Ratio Glucose POC Glucose 140 H Calcium Vitamin B12 Folate Diagnostic Findings Echocardiogram performed 11/05/2021: Hyperdynamic left ventricle with stage I diastolic dysfunction. Cardiac catheterization performed 11/05/2021: Complex mid LAD lesion estimated at 70% stenosis (subsequent I have is 70-80% heavily calcified stenosis without evidence of acute coronary syndrome). 70% mid RCA stenosis. Normal left ventricular filling pressures. PG Care Time/CCT Total # of Minutes Spent Total Time Spent with Patient: Total time spent is greater than 50% in coordination of care (as documented) at patient's floor/unit and/or counseling patient: Coding Level of Care Code 36109 Initial Inpt Care Lvl 3 Diagnoses CAD in [place] artery I25.10 Cardiopulmonary arrest with successful resuscitation I46.9
[2022-04-08] MEDS ORDERED: VANCOMYCIN HCL 1000MG/20ML VIAL ONE (14:30)
[2022-04-08] MEDS ORDERED: IOPAMIDOL INJ 61% 15 ML VIAL INSTIL ONE (14:31)
[2022-04-08] MEDS ORDERED: ePHEDrine sulfate 50 MG/ML AMP ONE (14:49)
[2022-04-08] MEDS ORDERED: ONDANSETRON INJ 2 MG/ML 2 ML VIAL ONE (14:49)
[2022-04-08] MEDS ORDERED: NEOSTIGMINE METHYLSULFATE 1 MG/ML 10ML VIAL ONE (14:49)
[2022-04-08] MEDS ORDERED: PHENYLEPHRINE HCL 10 MG/ML VIAL ONE (14:49)
[2022-04-08] MEDS ORDERED: GLYCOPYRROLATE 0.2 MG/ML VIAL ONE (14:49)
--- NOTE | 2022-04-08 14:54 | Operative Report ---
Post Operative Report Pre & Post Diagnosis Operation Date: 04/08/22 07:00 Pre-Op Diagnosis: Closed L1 vertebral fracture Post-Op Diagnosis: Closed L1 vertebral fracture I identified the patient and participated in the time-out.: Yes Procedure Operation Date: 04/08/22 07:00 Actual Procedures #1 kyphoplasty L1 vertebral body. #2 biopsy of L1 vertebral body Surgeon Kd Valdez, DO Manager Nuclear None Estimated Blood Loss 5 Findings Consistent with Post-Op Diagnosis Specimens Biopsy of L1 vertebral body Indications This is a 66-year-old male who presents with an L1 minimally displaced burst fracture. We did discuss stabilization by way of a kyphoplasty but he understands this may require further surgical intervention pending his progress postoperatively. Patient understands and agrees. Description of Procedure Patient was met with identified informed consent obtained. Patient was then taken to the operative suite underwent ablation placed in a prone position on a Dwayne table chest padded bolsters. All bony prominences well-padded eyes inspected to ensure no external pressure placed upon the. This point the thoracolumbar spine was prepped and draped no sterile fashion. With the assistance of fluoroscopy in AP and lateral planes we identified the L1 vertebral body and 2 small incisions were placed just lateral to the pedicles. 2 Kyphon working cannulas were then placed by way of a transpedicular approach into the L1 vertebral body. 2 core biopsies obtained. I then inserted to 20 mm Kyphon balloons sequentially inflated with fluoroscopic visualization. They were subsequently removed and approximately 4-1/2 cc of Kyphon cement injected with fluoroscopic visualization. I did demonstrate excellent interdigitation and fill. After this complete the cannulas were removed small incisions created were closed with subcutaneous Monocryl and a sterile dressing placed. Patient waken taken to PACU in stable condition. I attest to the content of the Intraoperative Record and any orders documented therein. Any exceptions are noted below.
--- NOTE | 2022-04-08 15:13 | Fluoroscopy Report ---
FL kyphoplasty any level CLINICAL HISTORY: L1 KYPHOPLASTY COMPARISON STUDY: CT of the abdomen and pelvis April 06, 2022. Fluoroscopy time: 135 seconds. Number of fluoroscopic images: 3. FINDINGS: Fluoroscopy was provided during L1 kyphoplasty. Methylmethacrylate within the L1 vertebral body is noted. Small amount of methylmethacrylate within the anterior epidural space and the T12-L1 d isc space is noted. IMPRESSION: Fluoroscopy provided during L1 kyphoplasty. ACT 112: Negative or not required by law. Electronically signed by: Guillaume Sales M.D. 04/08/2022 3:11 PM
--- NOTE | 2022-04-08 16:01 | Anesthesiology Progress Note ---
Date of Service April 08, 2022 Anesthesia Post Procedure Vital Signs Vital Signs: Temp Pulse Pulse Resp BP Pulse Ox O2 Del Method 04/08/22 15:40 59 L 17 115/62 92 Room Air 04/08/22 15:30 36.2 C L 60 12 114/58 L 96 Room Air 04/08/22 15:20 62 15 120/64 99 Oxymask 04/08/22 15:10 65 18 120/61 100 Oxymask 04/08/22 15:04 36.1 C L 74 19 115/71 97 Oxymask 04/08/22 12:58 36.4 C L 59 L 20 140/78 100 Room Air 04/08/22 07:37 36.4 C L 54 L 16 155/82 H 95 Room Air 04/07/22 20:42 36.4 C L 66 16 157/72 H 97 Room Air O2 Flow Rate 04/08/22 15:40 04/08/22 15:30 04/08/22 15:20 4 04/08/22 15:10 7 04/08/22 15:04 7 04/08/22 12:58 04/08/22 07:37 04/07/22 20:42 Pain Intensity Back: Pain Intensity: 2 Transfer of Care Handoff Completed per policy Notes Mental Status: alert / awake / arousable Patient Amnestic to Procedure: Yes Nausea / Vomiting: adequately controlled Pain: adequately controlled Airway Patency, RR, SpO2: stable & adequate BP & HR: stable & adequate Hydration State: stable & adequate Anesthetic Complications: no major complications apparent and Pt Satisfied with anesthetic care
[2022-04-08] MEDS ORDERED: PROMETHAZINE HCL 12.5 MG in SODIUM CHLORIDE 0.9% 50 ML IV STA (16:36)
[2022-04-08] MEDS ORDERED: LORazepam 2 MG/1 ML VIAL IV PRN ×2 (17:00→17:01)
[2022-04-08] MEDS ORDERED: LIDOCAINE 2% JELLY 5 ML TUBE EXT ONE (18:24)
[2022-04-08] MEDS ORDERED: PHARMACY GLYCEMIC MGMT CONSULT PRN (19:18)
[2022-04-08] MEDS: FAMOTIDINE 20 MG in SYRINGE 3 ML IV SCH (22:07)
[2022-04-09] MEDS: TAMSULOSIN HCL 0.4 MG CAP PO SCH ×2 (01:47→20:21)
[2022-04-09] MEDS: DOCUSATE SODIUM 100 MG CAP PO SCH ×3 (01:47→20:21)
[2022-04-09] MEDS: PANTOprazole 40 MG TAB PO SCH ×2 (01:47→11:17)
[2022-04-09] MEDS: ATORVASTATIN 10 MG TAB PO SCH ×2 (01:47→20:21)
[2022-04-09] MEDS: INSULIN ASPART PER UNIT SC SCH ×4 (01:47→18:36)
[2022-04-09] MEDS: DULoxetine HCL 20 MG CAP PO SCH ×3 (01:47→20:21)
[2022-04-09 06:30] LABS: Hematocrit (blood only) 35.9 % (40.1-51.0); Hemoglobin 11.7 g/dl (14.0-18.0); Mean Corpuscular Hemoglobin 27.3 pg (25.0-34.0); Mean Corpuscular Hgb Conc 32.6 g/dL (32.0-36.0); Mean Corpuscular Volume 83.9 fL (80.0-100.0); Mean Platelet Volume 9.1 fL (9.4-12.4); Platelet Count 153 K/uL (130-400); RDW Coefficient of Variation 13.4 % (11.5-14.5); RDW Standard Deviation 40.8 fL (36.4-46.3); Red Blood Count 4.28 M/uL (4.63-6.08); White Blood Count 5.14 K/ul (4.8-10.8)
[2022-04-09 06:51] LABS: Albumin Level 3.4 gm/dl (3.4-5.0); BUN Creatinine Ratio 17.9 (10-20); Bilirubin Direct 0.1 mg/dl (0-0.2); Bilirubin,Total 0.5 mg/dl (0.2-1.0); Calcium 8.5 mg/dl (8.5-10.1); Chol HDL Ratio 3.4 (0-5); Creatinine Clr Calc Pharmacy 63.6 ml/min; Est GFR (African American) 50.5 ml/min; Est GFR (Non-African American) 43.6 ml/min; Magnesium 2.2 mg/dl (1.7-2.4); Potassium 4.8 mmol/L (3.5-5.1)
--- NOTE | 2022-04-09 07:16 | XRay Report ---
XR KUB/Abdomen 1 view CLINICAL HISTORY: n/v post op, eval ileus TECHNIQUE: 1 view of the abdomen was obtained. Comparison: Comparison is made to abdomen radiograph 12/22/2014 FINDINGS: Enteric tube terminates in the stomach. Degenerative changes are seen in the visualized skeleton. No gaseous distention is seen, there is a paucity of small bowel gas. Small stool burden is seen. The si lhouette of the bladder is noted. IMPRESSION: No radiographic evidence of small bowel obstruction. ACT 112: Negative or not required by law. Electronically signed by: Rod Hoyt M.D. 04/09/2022 7:14 AM
--- NOTE | 2022-04-09 07:21 | XRay Report ---
XR chest 1V portable CLINICAL HISTORY: post NGT placement TECHNIQUE: Single frontal radiograph of the chest was obtained. Comparison: Comparison is made to chest radiograph 04/07/2022 FINDINGS: Enteric tube terminates below the diaphragm. Cardiomegaly is noted. Prominence and cephalization of t he vasculature is seen. No evidence of pleural effusion or pneumothorax. IMPRESSION: Cardiomegaly and mild pulmonary edema. Satisfactory position of enteric tube. ACT 112: Negative or not required by law. Electronically signed by: Rod Hoyt M.D. 04/09/2022 7:19 AM
--- NOTE | 2022-04-09 07:50 | Hospitalist Progress Note ---
Date of Service April 09, 2022 Assessment & Plan (1) Closed L1 vertebral fracture: Plan: 66yo male s/p ground level fall 5 days ago resulting in L1 burst fracture. Patient with severe, persistent pain. No neurological complaints. Of note, patient had Left Foot Second Toe Amputation by Dr Disla on 03/27/22, possibly contributing to why patient fell EKG NSR, no chest pain. CXR w/ stable cardiomegaly. Cards consulted for clearance for surgery Ortho consulted POD#1 s/p #1 kyphoplasty L1 vertebral body. #2 biopsy of L1 vertebral body. EBL 5cc Developed SIGNIFICANT nausea/vomiting post-operatively up in room 303, hypoactive/absent bowel sounds (post-op ileus, anders due to not moving his bowels since prior Friday, declined suppository prior to surgery but did have BS and reported passing gas on 1/ prior to surgery) Multiple attempts at placement of NGT unsuccessful. Given prior PEA arrest in the summer, moved to telemetry for closer monitoring -- has been NSR 80-90s Continue NPO Hypoactive BS Remains on IVF, lasix IV x 1 for pulmonary congestion on CXR. Supplemental O2 to maintain sat Given dose of reglan, antiemetics available prn KUB w/ NGT coiled above the diaphragm. Repositioning is indicated. RN repositioned, advanced back in 10cm deeper Repeating imaging to confirm placement Asked RN to administer enema to get bowels moving given moderate colonic fecal retention Pain control -- will decrease doses of morphine to limit oversedation/further worsening ileus, added IV Tylenol Q8H prn. ABG w/o significant CO2 retention (Of note, patient w/ hx CHRISTINA, not using CPAP -- likely benefit) PT/OT consulted, encourage ambulation as able -- was up w/ RN this morning to urinate prior to vomiting again (likely dislodged NGT as above, repositioned and checking placement as outlined) Labs stable on repeat -- WBC 5k, afebrile. -- monitor/electrolyte replacement as indicated (2) Postoperative ileus: Plan: as above enema x 1, repositioning of NGT/KUB checking for placement did alert surgery if needed given prior issues w/ NGT placement, no consult needed at this time (3) Hypertension: Plan: BPs elevated on admit, 2nd to pain. Hydralazine available prn -- elevation to diatolic >100 this morning, could have caused worsening n/v. Denied headache/visual changes. No focal deficit on exam Lasix on hold while NPO, given IV today for congestion as above. BP currently 176/85 Monitor Previously on lisinopril, d/c'd due to recurrent hyperkalemia. Prior admit placed on amlodipine -- note HRs have been on lower side, may not be best med (4) PAD (peripheral artery disease): Plan: Chronic ASA held for surgery -- messaged Dr Valdez to see when able to resume Continue atorvastatin when no longer NPO (5) Dyslipidemia: Plan: Chronic -Continue Atorvastatin 10mg po qHS when taking PO (6) CKD (chronic kidney disease): Plan: Chronic. Stable Baseline actually had been closer to 2s, but had not been eating/drinking much. Cr improved 1.83--> 1.62 Remains on IVF as above for post-op ileus, decreased IVF rate and given dose of IV lasix for congestion Avoid nephrotoxic agents/renal dose meds as needed BMP in AM (7) Depression: Plan: Chronic. Continue Cymbalta 20mg po BID when taking PO (8) GERD (gastroesophageal reflux disease): Plan: Chronic. Symptoms well controlled on home medications previously Continued on H2/PPT BID -- placed on Pepcid IV BID last evening given above, will add protonix BID as well while NPO to hopefully help reflux/n/v symptoms Resume PO once no longer NPO (9) Diabetes mellitus with diabetic polyneuropathy: Plan: Last A1c 7.5 DM complicated by CKD/peripheral neuropathy. Recent amputation 2nd toe on left on 03/[address] Disla -- sutures in place. Consider reaching out tomorrow to see timeline for removal Wound RN consulted and seen while inpatient -- he reports he had an appointment today BSG Q6H while NPO Pharmacy consulted for assistance given other issues as above, BSGs remains stable No longer on lisinopril due to recurrent hyperkalemia. B12 >1500 Monitor blood sugars, may need to add D5 to fluids pending how long patient NPO (10) CAD in [place] artery: Plan: Cardiac arrest/PEA in November, ?transient arrhythmia vs vasovagal episode, Underwent cardiac cath showing chronic, heavily calcified mid LAD stenosis (70- 80%) Cards consulted for pre-op clearance [employer]IAN ASA 81mg daily, atorvastatin 10mg (?increasing such -- can check lipid panel in am for risk stratification) Of note, patient does have SOB w/ exertion, not worse than baseline, but can consider f/u cards for consideration for exertional anginal symptoms to consider PCI? If any surgery for burst fracture, would consult for pre-op clearance Last ECHO in November, grade I diastolic dysfunction Lasix had been on hold due to poor PO intake/elevated Cr as above CXR this morning with continued IVF w/ congestion, given dose IV lasix to prevent worsening hepatic congestion/worsening nausea and working on getting his bowels moving No CP reported, EKG on admit NSR. Has been NSR 80-90s on monitor DVT prophylaxis Lovenox SQ while inpatient on admit, held for surgery Messaged ortho to see about DVT prophylaxis post-op, contraindicated in spine surgery but will need to see about timing to resume his aspirin myke Quigley hose in place Plan continue NPO Advanced NGT, checking repeat KUB for placement Reduce opiates for prevention of worsening ileus Enema for colonic fecal retention Supplemental O2 to maintain sats Continued monitoring on telemetry given prior PEA arrest over the summer Admission and Anticipated Discharge Date Admission Date: April 07, 2022 Supervising Physician Co-Signing Physician Notes The patient was seen and examined by me. Case discussed with ROXY Hankins. He has a postoperative ileus and NG tube is in place. No evidence of obstruction on x-rays. He will be kept n.p.o. and on IV fluids for now. Agree with assessment and plans Subjective Evaluated this morning. With continued nausea. Titrated to room air but on supplemental O2 when sleeping. Denies chest pain/shortness of breath but does have some pulmonary congestion on exam. NGT to suction, green/bilious drainage noted. Remains NPO. States pain controlled, little sore to the back. Discussed repeating KUB given continued reports not really passing much gas/no BM, hypoactive/distended abdomen on exam, however is soft without tenderness to palpation or guarding. Adding reglan as needed for antiemetics, got a dose of Phenergan this morning. No fever/chills. Wound appt today, to be seen by wound nurses this morning. Review of Systems Review of Systems: All systems reviewed & are unremarkable except as noted in HPI & below Physical Exam Physical Exam: General: morbidly obese male resting in bed, 3L via Oxymask, mild distress, fatigued appearing HEENT: NGT in place,hooked to suction, bilious drainage, pupils equal in size/reactive to light Resp: diminished in the bases, expiratory wheezing, on 3L Oxymask, no tachypnea CV: RRR, no m/r/g, trace pedal edema, pulses palpable GI: hypoactive BS, +distension, nontender, no guarding/rebound MSK/Neuro: moves all extremities, no slurred speech/facial droop left foot 2nd toe amputation site c/d/i, sutures in place, no drainage/erythema, prior R toe amputation w/ callous, no drainage dressing to spine c/d/i, strength testing equal bilaterally dorsiflexion/plantar flexion with possible decreased dorsiflexion on the left Skin: moist, warm Psych: alert, oriented x 3, falls back asleep and requesting to rest, cooperative with exam as able Results & Data Results & Data ([facility]) Vital Signs (Past 12 Hours) Vital Signs Temp Pulse Pulse Resp BP Pulse Ox O2 Del Method 04/09/22 03:46 36.6 C 85 18 146/80 H 98 Oxymask 04/08/22 22:59 91 H 04/08/22 22:00 Oxymask 04/08/22 23:35 36.6 C 91 H 18 164/94 H 98 Oxymask O2 Flow Rate 04/09/22 03:46 04/08/22 22:59 04/08/22 22:00 3 04/08/22 23:35 Laboratory Results 04/09/22 04/09/22 04/09/22 Range/Units 06:01 06:01 06:01 WBC 5.14 (4.8-10.8) K/ul RBC 4.28 L (4.63-6.08) M/uL Hgb 11.7 L (14.0-18.0) g/dl Hct 35.9 L (40.1-51.0) % MCV 83.9 (80.0-100.0) fL MCH 27.3 (25.0-34.0) pg MCHC 32.6 (32.0-36.0) g/dL RDW Std Deviation 40.8 (36.4-46.3) fL RDW Coeff of Mejia 13.4 (11.5-14.5) % Plt Count 153 (130-400) K/uL MPV 9.1 L (9.4-12.4) fL Sodium (136-145) mmol/L Potassium (3.5-5.1) mmol/L Chloride (98-107) mmol/L Carbon Dioxide (21-32) mmol/L Anion Gap (3-11) BUN (6-23) mg/dl Creatinine (0.6-1.4) mg/dl Est Cr Clr Drug Dosing ml/min Est GFR ( Amer) ml/min Est GFR (Non-Af Amer) ml/min BUN/Creatinine Ratio (10-20) Glucose (70-99(Fasting)) mg/dl POC Glucose 121 H (70-99) mg/dl Calcium (8.5-10.1) mg/dl Magnesium (1.7-2.4) mg/dl Total Bilirubin (0.2-1.0) mg/dl Direct Bilirubin (0-0.2) mg/dl AST (13-39) U/L ALT (7-52) U/L Alkaline Phosphatase (34-104) U/L Total Protein (6.0-8.3) gm/dl Albumin (3.4-5.0) gm/dl Triglycerides (0-150) mg/dl Cholesterol (0-200) mg/dl LDL Cholesterol, Calc mg/dl VLDL Cholesterol, Calc (0-30) mg/dl HDL Cholesterol mg/dl Cholesterol/HDL Ratio (0-5) TSH 0.734 (0.300-4.500) uIu/ml 04/09/22 04/09/22 04/08/22 Range/Units 06:01 01:38 21:54 WBC (4.8-10.8) K/ul RBC (4.63-6.08) M/uL Hgb (14.0-18.0) g/dl Hct (40.1-51.0) % MCV (80.0-100.0) fL MCH (25.0-34.0) pg MCHC (32.0-36.0) g/dL RDW Std Deviation (36.4-46.3) fL RDW Coeff of Mejia (11.5-14.5) % Plt Count (130-400) K/uL MPV (9.4-12.4) fL Sodium 139 (136-145) mmol/L Potassium 4.8 (3.5-5.1) mmol/L Chloride 106 (98-107) mmol/L Carbon Dioxide 28 (21-32) mmol/L Anion Gap 5 (3-11) BUN 29 H (6-23) mg/dl Creatinine 1.62 H (0.6-1.4) mg/dl Est Cr Clr Drug Dosing 63.6 ml/min Est GFR ( Amer) 50.5 ml/min Est GFR (Non-Af Amer) 43.6 ml/min BUN/Creatinine Ratio 17.9 (10-20) Glucose 116 H (70-99(Fasting)) mg/dl POC Glucose 166 H 178 H (70-99) mg/dl Calcium 8.5 (8.5-10.1) mg/dl Magnesium 2.2 (1.7-2.4) mg/dl Total Bilirubin 0.5 (0.2-1.0) mg/dl Direct Bilirubin 0.1 (0-0.2) mg/dl AST 12 L (13-39) U/L ALT 8 (7-52) U/L Alkaline Phosphatase 132 H (34-104) U/L Total Protein 7.0 (6.0-8.3) gm/dl Albumin 3.4 (3.4-5.0) gm/dl Triglycerides 105 (0-150) mg/dl Cholesterol 134 (0-200) mg/dl LDL Cholesterol, Calc 74 mg/dl VLDL Cholesterol, Calc 21 (0-30) mg/dl HDL Cholesterol 39 mg/dl Cholesterol/HDL Ratio 3.4 (0-5) TSH (0.300-4.500) uIu/ml 04/08/22 04/08/22 04/08/22 Range/Units 16:58 15:09 12:05 WBC (4.8-10.8) K/ul RBC (4.63-6.08) M/uL Hgb (14.0-18.0) g/dl Hct (40.1-51.0) % MCV (80.0-100.0) fL MCH (25.0-34.0) pg MCHC (32.0-36.0) g/dL RDW Std Deviation (36.4-46.3) fL RDW Coeff of Mejia (11.5-14.5) % Plt Count (130-400) K/uL MPV (9.4-12.4) fL Sodium (136-145) mmol/L Potassium (3.5-5.1) mmol/L Chloride (98-107) mmol/L Carbon Dioxide (21-32) mmol/L Anion Gap (3-11) BUN (6-23) mg/dl Creatinine (0.6-1.4) mg/dl Est Cr Clr Drug Dosing ml/min Est GFR ( Amer) ml/min Est GFR (Non-Af Amer) ml/min BUN/Creatinine Ratio (10-20) Glucose (70-99(Fasting)) mg/dl POC Glucose 149 H 141 H 140 H (70-99) mg/dl Calcium (8.5-10.1) mg/dl Magnesium (1.7-2.4) mg/dl Total Bilirubin (0.2-1.0) mg/dl Direct Bilirubin (0-0.2) mg/dl AST (13-39) U/L ALT (7-52) U/L Alkaline Phosphatase (34-104) U/L Total Protein (6.0-8.3) gm/dl Albumin (3.4-5.0) gm/dl Triglycerides (0-150) mg/dl Cholesterol (0-200) mg/dl LDL Cholesterol, Calc mg/dl VLDL Cholesterol, Calc (0-30) mg/dl HDL Cholesterol mg/dl Cholesterol/HDL Ratio (0-5) TSH (0.300-4.500) uIu/ml Diagnostic Findings KUB X-Ray 04/08/22 16:38 XR KUB/Abdomen 1 view CLINICAL HISTORY: n/v post op, eval ileus TECHNIQUE: 1 view of the abdomen was obtained. Comparison: Comparison is made to abdomen radiograph 12/22/2014 FINDINGS: Enteric tube terminates in the stomach. Degenerative changes are seen in the visualized skeleton. No gaseous distention is seen, there is a paucity of small bowel gas. Small stool burden is seen. The silhouette of the bladder is noted. IMPRESSION: No radiographic evidence of small bowel obstruction. ACT 112: Negative or not required by law. Electronically signed by: Rod Hoyt M.D. 04/09/2022 7:14 AM Chest X-Ray 04/08/22 19:22 XR chest 1V portable CLINICAL HISTORY: post NGT placement TECHNIQUE: Single frontal radiograph of the chest was obtained. Comparison: Comparison is made to chest radiograph 04/07/2022 FINDINGS: Enteric tube terminates below the diaphragm. Cardiomegaly is noted. Prominence and cephalization of the vasculature is seen. No evidence of pleural effusion or pneumothorax. IMPRESSION: Cardiomegaly and mild pulmonary edema. Satisfactory position of enteric tube. ACT 112: Negative or not required by law. Electronically signed by: Rod Hoyt M.D. 04/09/2022 7:19 AM Chest X-Ray 04/09/22 09:14 XR chest 1V portable HISTORY: 66 years-old Male follow up congestion acute shortness of breath COMPARISON: Chest radiograph April 08, 2022 TECHNIQUE: AP view of the chest FINDINGS: Cardiac silhouette is enlarged. Pulmonary vascular congestion with progressive interstitial coarsening. No pneumothorax or large pleural effusion. Mild bibasilar densities. An enteric tube is again noted with the distal tip not visualized. Bones appear grossly intact. IMPRESSION: Cardiomegaly with progressively worsened pulmonary edema. ACT 112: Negative or not required by law. The above report was generated using voice recognition software. It may contain grammatical, syntax or spelling errors. Electronically signed by: Giovanni Moreno M.D. 04/09/2022 9:48 AM KUB X-Ray 04/09/22 12:00 KUB CLINICAL HISTORY: Nausea and vomiting. Recent surgery. Hypoactive bowel sounds. FINDINGS: 5 AP supine abdominal radiographs are compared to study dated 04/08/2022 and correlated with abdominal CT dated 04/06/2022. An enteric tube is coiled above the diaphragm. There is no radiographic evidence of bowel obstruction. Moderate fecal retention is seen throughout the colon. No evidence of intraperitoneal free air is seen on these supine images. There are no abnormal abdominal calcifications. Cholecystectomy clips are noted in the right upper quadrant. There is evidence of previous L1 vertebroplasty. IMPRESSION: 1. The tip of the enteric tube is coiled above the diaphragm. Repositioning is indicated. 2. There is no radiographic evidence of bowel obstruction. 3. Moderate colonic fecal retention. Electronically signed by: Freddy Gutierrez M.D. 04/09/2022 2:48 PM PG Care Time/CCT Total # of Minutes Spent Total Time Spent with Patient: Total time spent is greater than 50% in coordination of care (as documented) at patient's floor/unit and/or counseling patient: Coding Level of Care Code 92293 SUB INP/OBS CARE 3/50MIN Diagnoses Closed L1 vertebral fracture S32.019A Postoperative ileus K91.89; K56.7 Hypertension I10 PAD (peripheral artery disease) I73.9 Dyslipidemia E78.5 CKD (chronic kidney disease) N18.9 Depression F32.9 GERD (gastroesophageal reflux disease) K21.9 Diabetes mellitus with diabetic polyneuropathy E11.42 Diabetes mellitus fdc insulin use: unspecified fdc insulin use status Diabetes mellitus type: type 2 CAD in [place] I25.10 (1) Diabetes mellitus with diabetic polyneuropathy Diabetes mellitus manager creative insulin use: unspecified fdc insulin 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
[2022-04-09] MEDS ORDERED: LANTUS PER UNIT CHARGE SQ SCH ×4 (09:00→09:05)
[2022-04-09] MEDS: FAMOTIDINE 20 MG in SYRINGE 3 ML IV SCH ×2 (09:14→20:15)
[2022-04-09] MEDS: SODIUM CHLORIDE 0.9% 1000ML 1,000 ML IV SCH ×2 (09:15→16:51)
[2022-04-09] MEDS: ONDANSETRON INJ 2 MG/ML 2 ML VIAL IV PRN (09:15)
--- NOTE | 2022-04-09 09:49 | XRay Report ---
XR chest 1V portable HISTORY: 66 years-old Male follow up congestion acute shortness of breath COMPARISON: Chest radiograph April 08, 2022 TECHNIQUE: AP view of the chest FINDINGS: Cardiac silhouette is enlarged. Pulmonary vascular congestion with progressive interstitial coarsenin g. No pneumothorax or large pleural effusion. Mild bibasilar densities. An enteric tube is again note d with the distal tip not visualized. Bones appear grossly intact. IMPRESSION: Cardiomegaly with progressively worsened pulmonary edema. ACT 112: Negative or not required by law. The above report was generated using voice recognition software. It may contain grammatical, syntax o r spelling errors. Electronically signed by: Giovanni Moreno M.D. 04/09/2022 9:48 AM
[2022-04-09] MEDS ORDERED: FUROSEMIDE INJ 20 MG/2 ML VIAL IV ONE (10:25)
[2022-04-09] MEDS: SENNA 8.6 MG TAB PO SCH (11:17)
[2022-04-09] MEDS: PROMETHAZINE HCL 12.5 MG in SODIUM CHLORIDE 0.9% 50 ML IV PRN (11:43)
--- NOTE | 2022-04-09 11:43 | Pharmacy Report ---
Pharmacy Glycemic Short Note 2 - Date of Service April 09, 2022 - Glycemic Short BSG Results (Last 24 hours): 04/08/22 04/08/22 04/08/22 12:05 15:09 16:58 Glucose POC Glucose 140 H 141 H 149 H 04/08/22 04/09/22 04/09/22 21:54 01:38 06:01 Glucose 116 H POC Glucose 178 H 166 H 04/09/22 04/09/22 06:01 11:12 Glucose POC Glucose 121 H 119 H OUTPATIENT ANTIDIABETIC REGIMEN: * Lantus 65 units SQ qAM * Novolog TIDM * metformin 500mg PO BID * Jardiance 25mg PO daily HbA1C: 7.5% (03/06/22) ASSESSMENT: * Patient is a 66 year old male with type 2 DM admitted with a vertebral fracture now POD #1 L1 vertebral body kyphoplasty. Pharmacy consulted to assist with glycemic management. * BSGs the last 24h: [phone]. Fasting BSG this AM, 121mg/dL. Patient received 15 units of basal yesterday and no bolus. * Has been NPO with significant post op nausea and vomiting. NGT to suction. * Will reduce basal insulin significantly today given NPO status w/ N/V and fasting within goal range after receipt of 15 units of basal yesterday. Lantus 10 units this AM and will plan for an HS scale. Novolog parameters loosened. PLAN FOR INPATIENT GLYCEMIC CONTROL: * Hold outpatient oral diabetes medications * Basal insulin * Bxopes61 units SQ qAM, HS scale * Bolus insulin * NovoLog per scale ACHS or Q6hrs while NPO * Goal Range: Low 110 mg/dL - High 140 mg/dL * Correction Factor: 25 mg/dL/unit * Nutritional / Prandial insulin per carb ratio of 1 unit per 12 grams CHO consumed
[2022-04-09] MEDS: SODIUM ZIRCONIUM CYCLOSILICATE 10 GM PACKET PO SCH (11:53)
[2022-04-09] MEDS ORDERED: METOCLOPRAMIDE HCL INJ 5 MG/ML 2 ML VIAL IV STA (12:26)
[2022-04-09 13:22] LABS: Allen Test Pos (Pos); Base Excess ABG -1.5 mEq/L (-9-1.8); HCO3 ABG 24 mmol/L (19-24); Oxygen Saturation ABG 98.7 % (90-95); PCO2 ABG 44 mmHg (35-46); PO2 ABG 109 mmHg (80-95); pH ABG 7.35 (7.35-7.45)
--- NOTE | 2022-04-09 14:49 | XRay Report ---
KUB CLINICAL HISTORY: Nausea and vomiting. Recent surgery. Hypoactive bowel sounds. FINDINGS: 5 AP supine abdominal radiographs are compared to study dated 04/08/2022 and correlated with abdominal CT dated 04/06/2022. An enteric tube is coiled above the diaphragm. There is no radiographi c evidence of bowel obstruction. Moderate fecal retention is seen throughout the colon. No evidence o f intraperitoneal free air is seen on these supine images. There are no abnormal abdominal calcificat ions. Cholecystectomy clips are noted in the right upper quadrant. There is evidence of previous L1 v ertebroplasty. IMPRESSION: 1. The tip of the enteric tube is coiled above the diaphragm. Repositioning is indicated. 2. There is no radiographic evidence of bowel obstruction. 3. Moderate colonic fecal retention. Electronically signed by: Freddy Gutierrez M.D. 04/09/2022 2:48 PM
[2022-04-09] MEDS ORDERED: SOD PHOSPHATE/SOD BIPHOSPHATE ENEMA 132 ML BTL PR STA (15:10)
[2022-04-09] MEDS: ACETAMINOPHEN 1,000 MG/100 ML VIAL IV SCH ×2 (16:51→23:29)
--- NOTE | 2022-04-09 18:47 | XRay Report ---
KUB CLINICAL HISTORY: advancement of NGT, confirm placement COMPARISON STUDY: CT of the abdomen and pelvis April 06, 2022 and KUB April 09, 2022. FINDINGS: There are cholecystectomy clips and an L1 kyphoplasty. Bowel gas pattern is within normal l imits. The tip of the nasogastric tube projects over the right upper quadrant/right lower mediastinum . The tube is coiled. IMPRESSION: Tip of nasogastric tube projects over the right upper quadrant/right lower mediastinum. On this exam it is difficult to determine the exact position of the tip. This may be within the stoma ch however a CT of the abdomen might be considered for confirmation. Alternatively, short-term follow -up KUB could be obtained. ACT 112: Negative or not required by law. Electronically signed by: Guillaume Sales M.D. 04/09/2022 6:44 PM
[2022-04-09] MEDS: PANTOprazole 40 MG in SYRINGE 0 ML IV SCH (20:15)
[2022-04-09] MEDS: LANTUS PER UNIT CHARGE SQ SCH (20:21)
[2022-04-10] MEDS: INSULIN ASPART PER UNIT SC SCH ×4 (00:12→18:15)
[2022-04-10] MEDS: SODIUM CHLORIDE 0.9% 1000ML 1,000 ML IV SCH ×3 (03:08→18:18)
[2022-04-10] MEDS: MoRPHine SULFATE 4 MG/ML 1 ML CARP\\VIAL IV PRN (05:51)
[2022-04-10] MEDS: ACETAMINOPHEN 1,000 MG/100 ML VIAL IV SCH ×3 (07:25→23:37)
[2022-04-10 07:53] LABS: Albumin Level 3.2 gm/dl (3.4-5.0); Bilirubin,Total 0.6 mg/dl (0.2-1.0); Calcium 8.5 mg/dl (8.5-10.1); Creatinine Clr Calc Pharmacy 63.5 ml/min; Est GFR (African American) 50.1 ml/min; Est GFR (Non-African American) 43.3 ml/min; Globulin 3.3 gm/dl (2.5-4.0); Magnesium 2.1 mg/dl (1.7-2.4); Total Protein 6.5 gm/dl (6.0-8.3)
[2022-04-10] MEDS: FAMOTIDINE 20 MG in SYRINGE 3 ML IV SCH ×2 (08:35→20:56)
[2022-04-10] MEDS: DULoxetine HCL 20 MG CAP PO SCH ×2 (08:46→20:52)
[2022-04-10] MEDS: DOCUSATE SODIUM 100 MG CAP PO SCH ×2 (08:50→20:52)
[2022-04-10] MEDS: SENNA 8.6 MG TAB PO SCH (08:51)
[2022-04-10] MEDS: PANTOprazole 40 MG in SYRINGE 0 ML IV SCH ×2 (08:52→20:53)
[2022-04-10] MEDS: ASPIRIN 81 MG CHEW NG SCH (08:59)
[2022-04-10] MEDS ORDERED: LANTUS PER UNIT CHARGE SQ SCH ×3 (09:00)
[2022-04-10] MEDS ORDERED: FUROSEMIDE INJ 20 MG/2 ML VIAL IV ONE (09:49)
[2022-04-10] MEDS: SODIUM ZIRCONIUM CYCLOSILICATE 10 GM PACKET PO SCH (10:57)
--- NOTE | 2022-04-10 11:03 | Hospitalist Progress Note ---
Date of Service April 10, 2022 Assessment & Plan (1) Closed L1 vertebral fracture: Plan: 66yo male s/p ground level fall 5 days ago resulting in L1 burst fracture. Patient with severe, persistent pain. No neurological complaints. Of note, patient had Left Foot Second Toe Amputation by Dr Disla on 03/27/22, possibly contributing to why patient fell EKG NSR, no chest pain. CXR w/ stable cardiomegaly. Cards consulted for clearance for surgery Ortho consulted POD#1 s/p #1 kyphoplasty L1 vertebral body. #2 biopsy of L1 vertebral body. EBL 5cc Developed SIGNIFICANT nausea/vomiting post-operatively up in room 303, hypoactive/absent bowel sounds (post-op ileus, anders due to not moving his bowels since prior Friday, declined suppository prior to surgery but did have BS and reported passing gas on 1/ prior to surgery) Multiple attempts at placement of NGT unsuccessful. Given prior PEA arrest in the summer, moved to telemetry for closer monitoring -- has been NSR 80-90s Continue NPO Hypoactive BS Remains on IVF, lasix IV x 1 for pulmonary congestion on CXR. Supplemental O2 to maintain sat Given dose of reglan, antiemetics available prn KUB w/ NGT coiled above the diaphragm. Repositioning is indicated. RN repositioned, advanced back in 10cm deeper Repeating imaging to confirm placement NGT with ongoing bilious drainage. Asked RN to administer enema to get bowels moving given moderate colonic fecal retention Pain control -- will decrease doses of morphine to limit oversedation/further worsening ileus, added IV Tylenol Q8H prn. ABG w/o significant CO2 retention (Of note, patient w/ hx CHRISTINA, not using CPAP -- likely benefit) Encouraged OOB as tolerated. (2) Postoperative ileus: Plan: as above Abdomen soft and non-tender to palpation. NGT in place with bilious drainage noted. Unable to appreciate bowel sounds. No flatus or BM today. Discussed OOB to chair as able. (3) Hypertension: Plan: BP remains high. Instructed nursing staff to use Hydralazine PRN - has not received dose to this point. Will be difficult to manage BP while NPO. Would try spot dosing of Rx to help w/ HTN then add PO agent/s when able. Certainly could be reflective of pain response, but BPs have been consistently elevated throughout admission likely reflecting baseline HTN. Provided additional dose of IV Lasix (20 mg) this AM. I&Os are >6L Positive. Previously on lisinopril, d/c'd due to recurrent hyperkalemia. (4) PAD (peripheral artery disease): Plan: Chronic Restarted ASA Continue atorvastatin when no longer NPO (5) Dyslipidemia: Plan: Chronic -Continue Atorvastatin 10mg po qHS when taking PO (6) CKD (chronic kidney disease): Plan: Chronic. Stable Appears to be at baseline. Remains on IVF. Avoid nephrotoxic agents/renal dose meds as needed BMP in AM (7) Depression: Plan: Chronic. Continue Cymbalta 20mg po BID when taking PO (8) GERD (gastroesophageal reflux disease): Plan: Chronic. Symptoms well controlled on home medications previously Protonix BID Resume PO once no longer NPO (9) Diabetes mellitus with diabetic polyneuropathy: Plan: Last A1c 7.5 DM complicated by CKD/peripheral neuropathy. Recent amputation 2nd toe on left on 03/[address] Disla -- sutures in place. Consider reaching out tomorrow to see timeline for removal Wound RN consulted and seen while inpatient BSG Q6H while NPO Pharmacy consulted for assistance given other issues as above, BSGs remains stable No longer on lisinopril due to recurrent hyperkalemia. B12 >1500 Monitor blood sugars, may need to add D5 to fluids pending how long patient NPO (10) CAD in [place] artery: Plan: Cardiac arrest/PEA in November, ?transient arrhythmia vs vasovagal episode, Underwent cardiac cath showing chronic, heavily calcified mid LAD stenosis (70- 80%) Cards consulted for pre-op clearance [employer] ASA 81mg daily, atorvastatin 10mg (?increasing such -- can check lipid panel in am for risk stratification) Of note, patient does have SOB w/ exertion, not worse than baseline, but can consider f/u cards for consideration for exertional anginal symptoms to consider PCI? If any surgery for burst fracture, would consult for pre-op clearance Last ECHO in November, grade I diastolic dysfunction Lasix had been on hold due to poor PO intake/elevated Cr as above CXR this morning with continued IVF w/ congestion, given dose IV lasix to prevent worsening hepatic congestion/worsening nausea and working on getting his bowels moving No CP reported, EKG on admit NSR. Has been NSR 80-90s on monitor DVT prophylaxis Lovenox SQ while inpatient on admit, held for surgery Messaged ortho to see about DVT prophylaxis post-op, contraindicated in spine surgery but will need to see about timing to resume his aspirin myke Quigley hose in place Plan Continue NPO for now. Utilize Tylenol primarily for pain if able to avoid/reduce narcotic use if able. Encourage incentive spirometry. Was on 3L NC when I arrived, but was easily titrated down to 1 L. Encourage out of bed to chair as tolerated. All these things will help with bowel motility. Received 1 dose 20 mg IV Lasix as he looks to be greater than 6 L positive. JUSTIN should be watched closely as I am wondering if these are accurate. Admission and Anticipated Discharge Date Admission Date: April 07, 2022 Subjective Patient seen and evaluated bedside today. He elicits improvement of pain and reports his discomfort a 1-2/10. He recently ambulated to the restroom using walker without difficulty at the assistance of nursing staff. He continues with NG tube in place with bilious output. He has been using ice chips for dry mouth. Patient was on 3 L oxime mask when I arrived in room but saturating 100%. I quickly titrated him down to 1 L and he still remained in the high 90s to 100%. We will work on titrating the oxygen down to off. Discussed with nursing staff at instituting incentive spirometry to help as the patient has not been very mobile. He has been out of bed to chair and is encouraged to do so as he can tolerate. Review of his I&Os show 6L positive, but I question accuracy as patient has only had 200 mL documented urine output despite claiming to void every 2 hours. Overall, the patient is feeling well and is with minimal complaints of back pain. Specifically, he denies complaints of headaches, dizziness, lightheadedness, chest pain, palpitations, shortness of breath, pleuritic pain, abdominal pain, numbness/weakness into the extremities. Review of Systems Review of Systems: A complete 10 point review of systems was reviewed with the patient with pertinent positives and negatives as per history of present illness. All else were negative. Physical Exam Physical Exam: VITAL SIGNS - Vital signs and nursing notes were reviewed. GENERAL - 66-year-old male appearing his stated age who is in no acute distress. Communicates well with provider and answers questions appropriately. HEAD - NC/AT. EYES - PERRL with EOMI bilaterally. NOSE - NGT in place to the LEFT naris. MOUTH/OROPHARYNX - Without perioral cyanosis. Buccal mucosa pink and dry. NECK - Neck with FROM. LUNGS - Chest wall symmetric without accessory muscle use, intercostals retractions, or central cyanosis. Normal vesicular breath sounds CTA B/L. No wheezes, rales, or rhonchi appreciated. CARDIAC - RRR with S1/S2. No murmur, rubs, or gallops appreciated. No reproducible tenderness to palpation appreciated over the anterior chest wall. ABDOMEN - Abdominal contour obese without pulsations or visible masses. BS normoactive all four quadrants. No tenderness, palpable masses, hepatosplenomegaly, or ascites noted. EXTREMITIES - No pretibial edema present.+3/5 radial and dorsalis pedis pulses palpated throughout. +5/5 strength noted in UE/LE bilaterally. NEUROLOGIC - Cranial nerves II through XII grossly intact. Diminished sensation to the bilateral lower extremities (patient reports this as chronic). PSYCH - A&Ox3 and cooperates fully with examiner. Pt is very pleasant and interacts well with examiner. Results & Data Results & Data ([facility]) Vital Signs (Past 12 Hours) Vital Signs Temp Pulse Pulse Resp BP Pulse Ox O2 Del Method 04/10/22 08:08 36.9 C 70 15 183/103 H 100 Oxymask 04/10/22 07:15 67 04/10/22 02:58 36.8 C 66 20 185/85 H 100 Oxymask 04/09/22 23:10 36.8 C 74 20 184/85 H 100 Oxymask O2 Flow Rate 04/10/22 08:08 3 04/10/22 07:15 04/10/22 02:58 2 04/09/22 23:10 2 (1) Diabetes mellitus with diabetic polyneuropathy Diabetes mellitus nursing home insulin use: unspecified log brander insulin 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
--- NOTE | 2022-04-10 13:28 | Pharmacy Report ---
Pharmacy Glycemic Short Note 2 - Date of Service April 10, 2022 - Glycemic Short BSG Results (Last 24 hours): 04/09/22 04/10/22 04/10/22 18:28 00:12 06:15 Glucose POC Glucose 112 H 99 92 04/10/22 04/10/22 06:33 12:01 Glucose 80 POC Glucose 85 OUTPATIENT ANTIDIABETIC REGIMEN: * Lantus 65 units SQ qAM * Novolog TIDM * metformin 500mg PO BID * Jardiance 25mg PO daily HbA1C: 7.5% (03/06/22) ASSESSMENT: 04/10: * Patient received a total of 10 units of lantus yesterday and no novolog. * Fasting BSG 92 mg/dL which significantly downtrended from yesterday (121 mg/dL). Lunchtime BSG 85 mg/dL. * AM lantus dose was decreased by 50%. Will continue with a reduced evening lantus scale for this evening. * Patient remains NPO. 04/09 * Patient is a 66 year old male with type 2 DM admitted with a vertebral fracture now POD #1 L1 vertebral body kyphoplasty. Pharmacy consulted to assist with glycemic management. * BSGs the last 24h: [phone]. Fasting BSG this AM, 121mg/dL. Patient received 15 units of basal yesterday and no bolus. * Has been NPO with significant post op nausea and vomiting. NGT to suction. * Will reduce basal insulin significantly today given NPO status w/ N/V and fa sting within goal range after receipt of 15 units of basal yesterday. Lantus 10 units this AM and will plan for an HS scale. Novolog parameters loosened. PLAN FOR INPATIENT GLYCEMIC CONTROL: * Hold outpatient oral diabetes medications * Basal insulin * Lantus 5 units SQ qAM, HS scale (0 units or 5 units if BSG > 180 mg/dL) * Bolus insulin * NovoLog per scale ACHS or Q6hrs while NPO * Goal Range: Low 110 mg/dL - High 140 mg/dL * Correction Factor: 25 mg/dL/unit * Nutritional / Prandial insulin per carb ratio of 1 unit per 12 grams CHO consumed
--- NOTE | 2022-04-10 13:37 | Orthopedic Progress Note ---
Date of Service April 10, 2022 Assessment & Plan (1) Closed L1 vertebral fracture: Plan: At this time we will encourage him to transfer to chair and ambulate about the room as tolerated. We will initiate more physical therapy once his ileus is resolved. Admission and Anticipated Discharge Date Admission Date: April 07, 2022 Subjective Back pain improved. Still has no bowel movement this time. Denies any numbness or tingling lower extremities. Has been ambulating to the bathroom. Physical Exam Physical Exam: On exam the patient is currently in bed. Is neurologically intact. Appears comfortable. Results & Data ([facility]) Vital Signs (Past 12 Hours) Vital Signs Temp Pulse Pulse Resp BP Pulse Ox O2 Del Method 04/10/22 12:14 36.7 C 69 12 121/86 90 Room Air 04/10/22 08:08 36.9 C 70 15 183/103 H 100 Oxymask 04/10/22 07:15 67 04/10/22 02:58 36.8 C 66 20 185/85 H 100 Oxymask O2 Flow Rate 04/10/22 12:14 04/10/22 08:08 3 04/10/22 07:15 04/10/22 02:58 2
[2022-04-10] MEDS: TAMSULOSIN HCL 0.4 MG CAP PO SCH (20:52)
[2022-04-10] MEDS: ATORVASTATIN 10 MG TAB PO SCH (20:52)
[2022-04-10] MEDS: LANTUS PER UNIT CHARGE SQ SCH (23:40)
[2022-04-11] MEDS: INSULIN ASPART PER UNIT SC SCH ×5 (00:08→23:51)
[2022-04-11] MEDS: SODIUM CHLORIDE 0.9% 1000ML 1,000 ML IV SCH ×3 (03:11→23:03)
[2022-04-11] MEDS: hydrALAZINE HCL 20 MG/ML VIAL IV PRN (03:12)
[2022-04-11 06:26] LABS: Basophils # (auto) 0.04 K/uL (0-0.2); Basophils % (auto) 0.7 %; Eosinophils # (auto) 0.47 K/uL (0-0.50); Hematocrit (blood only) 33.2 % (40.1-51.0); Hemoglobin 10.9 g/dl (14.0-18.0); Immature Granulocytes # (auto) 0.03 K/uL (0.00-0.02); Immature Granulocytes % (auto) 0.5 %; Lymphocytes # (auto) 1.58 K/uL (1.2-3.4); Lymphocytes % (auto) 27.1 %; Mean Corpuscular Hemoglobin 27.4 pg (25.0-34.0); Mean Corpuscular Hgb Conc 32.8 g/dL (32.0-36.0); Mean Corpuscular Volume 83.4 fL (80.0-100.0); Mean Platelet Volume 9.2 fL (9.4-12.4); Monocytes # (auto) 0.67 K/uL (0.24-0.82); Monocytes % (auto) 11.5 %; Neutrophils # (auto) 3.05 K/uL (1.4-6.5); Neutrophils % (auto) 52.2 %; Platelet Count 170 K/uL (130-400); RDW Coefficient of Variation 13.5 % (11.5-14.5); RDW Standard Deviation 41.4 fL (36.4-46.3); Red Blood Count 3.98 M/uL (4.63-6.08); White Blood Count 5.84 K/ul (4.8-10.8)
[2022-04-11 06:52] LABS: BUN Creatinine Ratio 16.9 (10-20); Calcium 8.6 mg/dl (8.5-10.1); Creatinine Clr Calc Pharmacy 64.7 ml/min; Est GFR (African American) 51.3 ml/min; Est GFR (Non-African American) 44.2 ml/min; Magnesium 1.9 mg/dl (1.7-2.4); Phosphorus 2.4 mg/dl (2.5-4.9)
--- NOTE | 2022-04-11 08:45 | Hospitalist Progress Note ---
Date of Service April 11, 2022 Assessment & Plan (1) Closed L1 vertebral fracture: Plan: 66yo male s/p ground level fall 5 days ago resulting in L1 burst fracture. Patient with severe, persistent pain. No neurological complaints. Of note, patient had Left Foot Second Toe Amputation by Dr Disla on 03/27/22, possibly contributing to why patient fell EKG NSR, no chest pain. CXR w/ stable cardiomegaly. Cards consulted for clearance for surgery Ortho 04/08/22 s/p #1 kyphoplasty L1 vertebral body. #2 biopsy of L1 vertebral body. EBL 5cc nausea/vomiting post-operatively, hypoactive/absent bowel sounds post-op ileus Multiple attempts at placement of NGT unsuccessful Continue NPO NGT Remains on IVF, lasix IV x 1 for pulmonary congestion on CXR. Supplemental O2 to maintain sat Given dose of reglan, antiemetics available prn Asked RN to administer enema to get bowels moving given moderate colonic fecal retention Pain control -- will decrease doses of morphine to limit oversedation/further worsening ileus, added IV Tylenol Q8H prn. ABG w/o significant CO2 retention (Of note, patient w/ hx CHRISTINA, not using CPAP -- likely benefit) Encouraged OOB as tolerated. (2) Postoperative ileus: Plan: as above Abdomen soft and non-tender to palpation. NGT in place with bilious drainage noted. Unable to appreciate bowel sounds. No flatus or BM today. Discussed OOB to chair as able. (3) Hypertension: Plan: BP remains high. Instructed nursing staff to use Hydralazine PRN - has not received dose to this point. Will be difficult to manage BP while NPO. Would try spot dosing of Rx to help w/ HTN then add PO agent/s when able. Certainly could be reflective of pain response, but BPs have been consistently elevated throughout admission likely reflecting baseline HTN. Previously on lisinopril, d/c'd due to recurrent hyperkalemia. (4) PAD (peripheral artery disease): Plan: Chronic Restarted ASA Continue atorvastatin when no longer NPO (5) Dyslipidemia: Plan: Chronic -Continue Atorvastatin 10mg po qHS when taking PO (6) CKD (chronic kidney disease): Plan: Chronic. Stable Appears to be at baseline. Remains on IVF. Avoid nephrotoxic agents/renal dose meds as needed (7) Depression: Plan: Chronic. Continue Cymbalta 20mg po BID when taking PO (8) GERD (gastroesophageal reflux disease): Plan: Chronic. Symptoms well controlled on home medications previously Protonix BID Resume PO once no longer NPO (9) Diabetes mellitus with diabetic polyneuropathy: Plan: Last A1c 7.5 DM complicated by CKD/peripheral neuropathy. Recent amputation 2nd toe on left on 03/[address] Disla -- sutures in place. Wound RN consulted and seen while inpatient BSG Q6H while NPO Pharmacy consulted for assistance given other issues as above, BSGs remains stable No longer on lisinopril due to recurrent hyperkalemia. B12 >1500 Monitor blood sugars, may need to add D5 to fluids pending how long patient NPO (10) CAD in [place] artery: Plan: Cardiac arrest/PEA in November, ?transient arrhythmia vs vasovagal episode, Underwent cardiac cath showing chronic, heavily calcified mid LAD stenosis (70- 80%) Cards consulted for pre-op clearance [employer] ASA 81mg daily, atorvastatin 10mg (?increasing such -- can check lipid panel in am for risk stratification) Of note, patient does have SOB w/ exertion, not worse than baseline, but can consider f/u cards for consideration for exertional anginal symptoms to consider PCI? Last ECHO in November, grade I diastolic dysfunction Lasix had been on hold due to poor PO intake/elevated Cr as above No CP reported, EKG on admit NSR. Has been NSR 80-90s on monitor DVT prophylaxis Lovenox SQ while inpatient on admit, held for surgery Messaged ortho to see about DVT prophylaxis post-op, contraindicated in spine surgery but will need to see about timing to resume his aspirin myke Quigley in place Admission and Anticipated Discharge Date Admission Date: April 07, 2022 Results & Data Results & Data ([facility]) Vital Signs (Past 12 Hours) Vital Signs Temp Pulse Pulse Resp BP Pulse Ox O2 Del Method 04/11/22 07:16 97.9 F 74 16 157/70 H 92 Room Air 04/11/22 02:59 97.5 F L 70 17 160/107 H 93 Room Air 04/10/22 23:28 72 04/10/22 20:40 Room Air 04/10/22 22:44 98.4 F 74 18 153/86 H 92 Room Air PG Care Time/CCT Total # of Minutes Spent Total Time Spent with Patient: Total time spent is greater than 50% in coordination of care (as documented) at patient's floor/unit and/or counseling patient: Coding Diagnoses Closed L1 vertebral fracture S32.019A Postoperative ileus K91.89; K56.7 Hypertension I10 PAD (peripheral artery disease) I73.9 Dyslipidemia E78.5 CKD (chronic kidney disease) N18.9 Depression F32.9 GERD (gastroesophageal reflux disease) K21.9 Diabetes mellitus with diabetic polyneuropathy E11.42 Diabetes mellitus type: type 2 Diabetes mellitus intermodal customer service insulin use: unspecified intermodal customer service insulin use status CAD in [place] artery I25.10 (1) Diabetes mellitus with diabetic polyneuropathy Diabetes mellitus type: type 2 Diabetes mellitus intermodal customer service insulin use: unspecified intermodal customer service insulin use status Qualified Code(s): E11.42 - Type 2 diabetes mellitus with diabetic polyneuropathy
[2022-04-11] MEDS: ACETAMINOPHEN 1,000 MG/100 ML VIAL IV SCH ×3 (09:21→23:08)
[2022-04-11] MEDS: PANTOprazole 40 MG in SYRINGE 0 ML IV SCH ×2 (09:23→21:00)
[2022-04-11] MEDS: ASPIRIN 81 MG CHEW NG SCH (09:23)
[2022-04-11] MEDS: SENNA 8.6 MG TAB PO SCH (09:24)
[2022-04-11] MEDS: DULoxetine HCL 20 MG CAP PO SCH ×2 (09:24→21:00)
[2022-04-11] MEDS: FAMOTIDINE 20 MG in SYRINGE 3 ML IV SCH ×2 (09:27→20:59)
[2022-04-11] MEDS: DOCUSATE SODIUM 100 MG CAP PO SCH ×2 (09:27→21:00)
[2022-04-11] MEDS: MoRPHine SULFATE 4 MG/ML 1 ML CARP\\VIAL IV PRN (10:57)
--- NOTE | 2022-04-11 11:47 | Pharmacy Report ---
Pharmacy Glycemic Short Note 2 - Date of Service April 11, 2022 - Glycemic Short BSG Results (Last 24 hours): 04/10/22 04/10/22 04/10/22 12:01 18:12 23:40 Glucose POC Glucose 85 80 85 04/11/22 04/11/22 04/11/22 05:47 07:13 11:33 Glucose 84 POC Glucose 85 88 OUTPATIENT ANTIDIABETIC REGIMEN: * Lantus 65 units SQ qAM * Novolog TIDM * metformin 500mg PO BID * Jardiance 25mg PO daily HbA1C: 7.5% (03/06/22) ASSESSMENT: 04/11: * BSGs below goal at 44-49-99-88mg/dL the last 24h. Patient received 5 units of basal insulin yesterday and no bolus. * Remains NPO. * Basal d/c'd this AM -- will hold basal today given steady decline in BSGs the last couple of days. No change to Novolog parameters. 04/10: * Patient received a total of 10 units of lantus yesterday and no novolog. * Fasting BSG 92 mg/dL which significantly downtrended from yesterday (121 mg/dL). Lunchtime BSG 85 mg/dL. * AM lantus dose was decreased by 50%. Will continue with a reduced evening lantus scale for this evening. * Patient remains NPO. 04/09 * Patient is a 66 year old male with type 2 DM admitted with a vertebral fracture now POD #1 L1 vertebral body kyphoplasty. Pharmacy consulted to assist with glycemic management. * BSGs the last 24h: [phone]. Fasting BSG this AM, 121mg/dL. Patient received 15 units of basal yesterday and no bolus. * Has been NPO with significant post op nausea and vomiting. NGT to suction. * Will reduce basal insulin significantly today given NPO status w/ N/V and fasting within goal range after receipt of 15 units of basal yesterday. Lantus 10 units this AM and will plan for an HS scale. Novolog parameters loosened. PLAN FOR INPATIENT GLYCEMIC CONTROL: * Hold outpatient oral diabetes medications * Basal insulin * Hold * Bolus insulin * NovoLog per scale ACHS or Q6hrs while NPO * Goal Range: Low 110 mg/dL - High 140 mg/dL * Correction Factor: 25 mg/dL/unit * Nutritional / Prandial insulin per carb ratio of 1 unit per 12 grams CHO consumed
[2022-04-11] MEDS: SODIUM ZIRCONIUM CYCLOSILICATE 10 GM PACKET PO SCH (12:36)
--- NOTE | 2022-04-11 14:12 | Hospitalist Progress Note ---
Date of Service April 11, 2022 Assessment & Plan (1) Closed L1 vertebral fracture: Plan: Attending: Dr. Leiva Impression: 66yo male s/p ground level fall 5 days ago resulting in L1 burst fracture. Patient with severe, persistent pain. No neurological complaints. Of note, patient had Left Foot Second Toe Amputation by Dr Disla on 03/27/22, possibly contributing to why patient fell. Subsequent amputation of left great toe. EKG NSR, no chest pain. CXR w/ stable cardiomegaly. Cardiology following. Patient transferred to telemetry yesterday for closer monitoring due to lack of bowel movement and loss of nasogastric tube. Telemetry reviewed. No arrhyt hmia. Ortho consulted POD#1 s/p #1 kyphoplasty L1 vertebral body. #2 biopsy of L1 vertebral body. EBL 5cc Developed SIGNIFICANT nausea/vomiting post-operatively up in room 303, hypoactive/absent bowel sounds (post-op ileus, likely due to not moving his bowels since prior Friday, declined suppository prior to surgery but did have BS and reported passing gas on 1/2 prior to surgery).No abdominal pain or significant distention today.Hypoactive bowel sounds.Remains n.p.o. for bowel rest Multiple attempts at placement of NGT unsuccessful. Given prior PEA arrest in the summer, moved to telemetry for closer monitoring -- has been NSR 80-90s Remains on IVF, lasix IV x 1 for pulmonary congestion on CXR. Supplemental O2 to maintain sat Given dose of reglan, antiemetics available prn Paingenerally control -- morphine decreased to limit oversedation/further worsening ileus, added IV Tylenol Q8H prn. ABG w/o significant CO2 retention (Of note, patient w/ hx CHRISTINA, not using CPAP -- likely would benefit but will hold off for now for prophylaxis given postoperative ileus ) Encouraged OOB as tolerated.Patient has been out of bed to chairAnd is comfortable sitting upright (2) Postoperative ileus: Plan: as above Abdomen soft and non-tender to palpation. NGT with bilious drainage prior to dislodgment of tube yesterday. Unable to replace NG tube secondary to coiling Patient with flatus now but no bowel movement Hypoactive bowel sounds Continue supportive management (3) Hypertension: Plan: BP remains high. Continue hydralazine PRN Certainly could be reflective of pain response, but BPs have been consistently elevated throughout admission likely reflecting baseline HTN. Provided additional dose of IV Lasix (20 mg). Continue strict I&Os Previously on lisinopril, d/c'd due to recurrent hyperkalemia. (4) PAD (peripheral artery disease): Plan: Chronic Restarted ASA Continue atorvastatin when no longer NPO (5) Dyslipidemia: Plan: Chronic -Continue Atorvastatin 10mg po qHS when taking PO (6) CKD (chronic kidney disease): Plan: Chronic. Stable Appears to be at baseline. Remains on IVF secondary to n.p.o. status for postoperative ileus Avoid nephrotoxic agents/renal dose meds as needed Follow serial labs (7) Depression: Plan: Chronic. Continue Cymbalta 20mg po BID when taking PO (8) GERD (gastroesophageal reflux disease): Plan: Chronic. Symptoms well controlled on home medications previously Protonix BID Resume PO once no longer NPO (9) Diabetes mellitus with diabetic polyneuropathy: Plan: Last A1c 7.5 DM complicated by CKD/peripheral neuropathy. Recent amputation 2nd toe on left on 03/[address] Disla -- sutures in place. Consider reaching out tomorrow to see timeline for removal Wound RN consulted and seen while inpatient BSG Q6H while NPO Pharmacy consulted for assistance given other issues as above, BSGs remains stable No longer on lisinopril due to recurrent hyperkalemia. B12 >1500 Monitor blood sugars, may need to add D5 to fluids pending how long patient NPO (10) CAD in [place] artery: Plan: Cardiac arrest/PEA in November, ?transient arrhythmia vs vasovagal episode, Underwent cardiac cath showing chronic, heavily calcified mid LAD stenosis (70- 80%) Cards consulted [employer]CEPTION[employer] CHILDREN [employer] ASA 81mg daily, atorvastatin 10mg (?increasing such -- can check lipid panel in am for risk stratification) Of note, patient does have SOB w/ exertion, not worse than baseline, but can consider f/u cards for consideration for exertional anginal symptoms to consider PCI? This is most likely multifactorial to morbid obesity, deconditioning If any surgery for burst fracture, would consult for pre-op clearance Last ECHO in November, grade I diastolic dysfunction Lasix had been on hold due to poor PO intake/elevated Cr as above CXR w/ congestion, given dose IV lasix to prevent worsening hepatic congestion/worsening nausea and working on getting his bowels moving Patient denies chest pain. EKG on admit NSR. Has been NSR 80-90s on monitor DVT prophylaxis Lovenox SQ while inpatient on admit, held for surgery Orthopedics to manage DVT prophylaxis post-op, relative contraindication in spine surgery SCDs, myke hose in place Plan Continue NPO for now. Monitor closely as patient dislodged NG tube Utilize Tylenol primarily for pain if able to avoid/reduce narcotic use if able. Encourage incentive spirometry. Was on 3L NC when I arrived, but was easily titrated down to 1 L. Encourage out of bed to chair as tolerated. All these things will help with bowel motility. Encourage standing weights daily Admission and Anticipated Discharge Date Admission Date: April 07, 2022 Supervising Physician Co-Signing Physician Notes Attending Attestation - Chart reviewed, care plan d/w PA Freddy Kingston. I agree w/ the guevara components of his documentation. Johann Leiva MD Subjective Attending: Dr. Leiva Patient seen and examined in room 204. He is in bedside chair. He has no distress. Patient has not had a bowel movement yet but states that he is passing some gas. Denies abdominal pain or distention. No nausea or vomiting. Placement of NGT yesterday but then patient coughed it out. No pain with palpation to the abdomen. Continued bowel rest. Patient denies significant hunger. No fever, chills, sweats, rigors. Recent amputation of left great and second toe. Pain generally controlled. No awareness of palpitations or tachyarrhythmias. Patient with no other acute complaints at this time. Review of Systems Review of Systems: A total of 10 systems was reviewed and is negative other than as listed in the HPI Physical Exam Physical Exam: GENERAL : No acute distress EYES: No icterus, gaze conjugate NOSE: No evidence of epistaxis MOUTH: No lesions or candidiasis NECK: Supple LUNGS: CTA B/L, no wheezes, rales or rhonchi HEART: Regular, rate controlled ABDOMEN: Soft, NT, ND, BS Present but hypoactive. No pain with deep palpation. No guarding EXTREMITIES: No LE edema, pedal pulses intact but weak. Left great and second toe absent secondary to planned amputation for MRSA infection NEURO: A&OX3 Results & Data Results & Data ([facility]) Vital Signs (Past 12 Hours) Vital Signs Temp Pulse Resp BP Pulse Ox O2 Del Method 04/11/22 07:16 36.6 C 74 16 157/70 H 92 Room Air 04/11/22 02:59 36.4 C L 70 17 160/107 H 93 Room Air Critical Care Results & Data Vital Signs (Past 12 Hours) Vital Signs Temp Pulse Pulse Resp BP Pulse Ox O2 Del Method 04/11/22 08:00 Room Air 04/11/22 08:00 68 04/11/22 16:58 36.8 C 65 16 136/75 96 Room Air Lab & Micro Results (Past 24 Hours) No Data to Display No Data to Display No Data to Display I & O Totals 24 Hours 04/10/22 04/11/22 04/12/22 06:59 06:59 06:59 Intake Total 2200.500 / 2200.500 2794.999 / 2794.999 1200 / 1200 Output Total 1200 / 1200 600 / 600 Balance 1000.500 / 9557.755 1977.999 / 2194.999 1200 / 1200 Cumulative 04/06/22 19:51 thru 04/11/22 17:15 Intake Total 71988.249 Output Total 2205 Balance 8994.249 RT Ventilator Mngmt (Last Documented) Ventilator Ordered Settings Respiratory Rate 16 04/11/22 16:58 Ventilator - PT Measurements Respiratory Rate 16 PG Care Time/CCT Total # of Minutes Spent Total Time Spent with Patient: Total time spent is greater than 50% in coordination of care (as documented) at patient's floor/unit and/or counseling patient: Coding Level of Care Code 77688 SUB INP/OBS CARE 2/35MIN Diagnoses Closed L1 vertebral fracture S32.019A Postoperative ileus K91.89; K56.7 Hypertension I10 PAD (peripheral artery disease) I73.9 Dyslipidemia E78.5 CKD (chronic kidney disease) N18.9 Depression F32.9 GERD (gastroesophageal reflux disease) K21.9 Diabetes mellitus with diabetic polyneuropathy E11.42 Diabetes mellitus fdc insulin use: unspecified lobsterman insulin use status Diabetes mellitus type: type 2 CAD in [place] artery I25.10 (1) Diabetes mellitus with diabetic polyneuropathy Diabetes mellitus fdc insulin use: unspecified fdc insulin 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
[2022-04-11] MEDS: ATORVASTATIN 10 MG TAB PO SCH (21:00)
[2022-04-11] MEDS: TAMSULOSIN HCL 0.4 MG CAP PO SCH (21:00)
[2022-04-12] MEDS: MoRPHine SULFATE 2 MG/ML CARP IV PRN ×2 (05:46→21:40)
[2022-04-12] MEDS: INSULIN ASPART PER UNIT SC SCH ×3 (05:56→18:39)
[2022-04-12] MEDS: ACETAMINOPHEN 1,000 MG/100 ML VIAL IV SCH (09:31)
[2022-04-12] MEDS: ASPIRIN 81 MG CHEW NG SCH (09:31)
[2022-04-12] MEDS: DULoxetine HCL 20 MG CAP PO SCH ×2 (09:32→21:40)
[2022-04-12] MEDS: FAMOTIDINE 20 MG in SYRINGE 3 ML IV SCH ×2 (09:32→21:39)
[2022-04-12] MEDS: PANTOprazole 40 MG in SYRINGE 0 ML IV SCH ×2 (09:32→21:39)
[2022-04-12] MEDS: SODIUM CHLORIDE 0.9% 1000ML 1,000 ML IV SCH ×2 (09:32→19:32)
[2022-04-12] MEDS: SENNA 8.6 MG TAB PO SCH (09:32)
[2022-04-12] MEDS: PROMETHAZINE HCL 12.5 MG in SODIUM CHLORIDE 0.9% 50 ML IV PRN ×2 (09:33→19:18)
[2022-04-12] MEDS: DOCUSATE SODIUM 100 MG CAP PO SCH ×2 (09:43→21:40)
--- NOTE | 2022-04-12 10:16 | XRay Report ---
KUB HISTORY: Abdominal distention. Ileus. COMPARISON: KUB 04/09/2022. FINDINGS: The bowel gas pattern is unremarkable. There are no dilated loops of small bowel to suggest an obstruction. No renal calculi. No ureteral calculi. No pneumoperitoneum or pneumatosis. L1 verte broplasty is again noted. Prior colostomy. Basilar calcifications are present. A nasogastric tube is not identified on this study. IMPRESSION: No dilated loops of bowel to suggest an obstruction or ileus. ACT 112: Negative or not required by law. Electronically signed by: Marcin Munguia M.D. 04/12/2022 10:14 AM
--- NOTE | 2022-04-12 11:47 | Hospitalist Progress Note ---
Date of Service April 12, 2022 Assessment & Plan (1) Closed L1 vertebral fracture: Plan: This is a 66-year-old male who was admitted to the hospital following a fall. He was found to have an L1 burst fracture and is now status post kyphoplasty. -Today's postop day 2 status post kyphoplasty of L1 vertebral body, biopsy of L1 vertebral body. -Pain is under good control. -Appreciate orthospine (2) Constipation: Plan: Patient has not had a bowel movement. Initially thought to be postop ileus however no evidence of postop ileus on x- ray KUB. Patient admits to chronic constipation even at home and has been known to go for 6 to 9 days without having a bowel movement Currently on MiraLAX we will add tapwater enema. If still no bowel movement will give him GoLytely bowel preparation (3) Hypertension: Plan: Blood pressure poorly controlled, 175/91 Not on any HTN meds at home Although patient has Type 2 DM, will hold off on ACEI in view of CKD and recurrentl hyperkalemia will start Amlodipine 10mg daily (4) PAD (peripheral artery disease): Plan: continue ASA and Statin (5) Dyslipidemia: (6) CKD (chronic kidney disease): Plan: Avoid nephrotoxics (7) Diabetes mellitus with diabetic polyneuropathy: Plan: Blood glucose is under good control continue to monitor patient recently had a left 2nd toe amputation, continue wound care (8) Depression: Plan: continue home meds (9) GERD (gastroesophageal reflux disease): (10) CAD in [place] artery: Plan continue hospitalization Admission and Anticipated Discharge Date Admission Date: April 07, 2022 Subjective patient seen and examined, still no bowel movement Review of Systems Review of Systems: All systems reviewed are negative, apart from the ones contained in the history. Physical Exam Physical Exam: The patient is awake, alert and oriented 3, well developed and well nourished, normocephalic and atraumatic, lying in bed and in no acute distress. HEENT--PERRL, EOMI, mucous membranes and oropharynx mildly dry Neck--supple. No JVD. No bruits. Thyroid normal, trachea midline, no adenopathy. Heart--normal S1 and S2. No murmurs, rubs or gallops. Lungs--clear bilaterally, no respiratory distress, no accessory muscle use. Abdomen--normal bowel sounds and soft. Mild epigastric and left sided abdominal pain Extremities--no cyanosis or clubbing. No edema. Dermatologic--normal skin turgor, normal color, no abnormal lymph nodes, no rash. Neurologic--cranial nerves II through XII grossly intact. Rheumatologic--normal range of motion. Psychiatric--normal affect. Results & Data Results & Data ([facility]) Vital Signs (Past 12 Hours) Vital Signs Temp Pulse Pulse Resp BP Pulse Ox O2 Del Method 04/12/22 11:09 Room Air 04/12/22 07:21 98.2 F 80 13 175/91 H 97 Room Air 04/12/22 04:44 97.3 F L 70 18 188/77 H 96 Room Air 04/12/22 00:12 77 PG Care Time/CCT Total # of Minutes Spent Total Time Spent with Patient: Total time spent is greater than 50% in coordination of care (as documented) at patient's floor/unit and/or counseling patient: [place] [address] SUB INP/OBS CARE 2/35MIN Patient Type Established History Expanded Problem Focused Exam Expanded Problem Focused Medical Decision Making Moderate Complexity Diagnoses Closed L1 vertebral fracture S32.019A Constipation K59.00 Hypertension I10 PAD (peripheral artery disease) I73.9 Dyslipidemia E78.5 CKD (chronic kidney disease) N18.9 Diabetes mellitus with diabetic polyneuropathy E11.42 Diabetes mellitus type: type 2 Diabetes mellitus fci insulin use: unspecified fci insulin use status Depression F32.9 GERD (gastroesophageal reflux disease) K21.9 CAD in [place] artery I25.10 Time Spent (min) 35 (1) Diabetes mellitus with diabetic polyneuropathy Diabetes mellitus type: type 2 Diabetes mellitus 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
[2022-04-12] MEDS ORDERED: LISINOPRIL/HCTZ 20/25MG 1 TAB PO SCH (12:00)
--- NOTE | 2022-04-12 12:00 | Pharmacy Report ---
Pharmacy Glycemic Short Note 2 - Date of Service April 12, 2022 - Glycemic Short BSG Results (Last 24 hours): 04/11/22 04/11/22 04/12/22 18:04 23:12 05:54 POC Glucose 102 H 96 126 H 04/12/22 11:40 POC Glucose 137 H OUTPATIENT ANTIDIABETIC REGIMEN: * Lantus 65 units SQ qAM * Novolog TIDM * metformin 500mg PO BID * Jardiance 25mg PO daily HbA1C: 7.5% (03/06/22) ASSESSMENT: 04/12: * BSGs 811-76-165-137mg/dL the last 24h. Patient received no insulin the last 24 hours. * Remains NPO and POD#4. No change to insulin. Continue to hold basal for now until tolerating PO. Novolog parameters unchanged. 04/11: * BSGs below goal at 02-43-21-88mg/dL the last 24h. Patient received 5 units of basal insulin yesterday and no bolus. * Remains NPO. * Basal d/c'd this AM -- will hold basal today given steady decline in BSGs the last couple of days. No change to Novolog parameters. 04/10: * Patient received a total of 10 units of lantus yesterday and no novolog. * Fasting BSG 92 mg/dL which significantly downtrended from yesterday (121 mg/dL). Lunchtime BSG 85 mg/dL. * AM lantus dose was decreased by 50%. Will continue with a reduced evening lantus scale for this evening. * Patient remains NPO. 04/09 * Patient is a 66 year old male with type 2 DM admitted with a vertebral fracture now POD #1 L1 vertebral body kyphoplasty. Pharmacy consulted to assist with glycemic management. * BSGs the last 24h: [phone]. Fasting BSG this AM, 121mg/dL. Patient received 15 units of basal yesterday and no bolus. * Has been NPO with significant post op nausea and vomiting. NGT to suction. * Will reduce basal insulin significantly today given NPO status w/ N/V and fasting within goal range after receipt of 15 units of basal yesterday. Lantus 10 units this AM and will plan for an HS scale. Novolog parameters loosened. PLAN FOR INPATIENT GLYCEMIC CONTROL: * Hold outpatient oral diabetes medications * Basal insulin * Hold * Bolus insulin * NovoLog per scale ACHS or Q6hrs while NPO * Goal Range: Low 110 mg/dL - High 140 mg/dL * Correction Factor: 25 mg/dL/unit * Nutritional / Prandial insulin per carb ratio of 1 unit per 12 grams CHO consumed
[2022-04-12] MEDS ORDERED: amLODIPine BESYLATE 5 MG TAB PO ONE (12:15)
[2022-04-12] MEDS: SODIUM ZIRCONIUM CYCLOSILICATE 10 GM PACKET PO SCH (13:04)
[2022-04-12] MEDS: POLYETHYLENE (MIRALAX) 17 GM PACK PO PRN (21:39)
[2022-04-12] MEDS: TAMSULOSIN HCL 0.4 MG CAP PO SCH (21:40)
[2022-04-12] MEDS: ATORVASTATIN 10 MG TAB PO SCH (21:40)
[2022-04-13] MEDS: INSULIN ASPART PER UNIT SC SCH ×5 (00:03→21:01)
[2022-04-13] MEDS: PROMETHAZINE HCL 12.5 MG in SODIUM CHLORIDE 0.9% 50 ML IV PRN ×2 (00:13→09:36)
[2022-04-13] MEDS: hydrALAZINE HCL 20 MG/ML VIAL IV PRN (00:16)
[2022-04-13] MEDS ORDERED: ONDANSETRON INJ 2 MG/ML 2 ML VIAL IV STA (03:00)
[2022-04-13] MEDS ORDERED: ONDANSETRON INJ 2 MG/ML 2 ML VIAL ONE (03:25)
[2022-04-13] MEDS: MoRPHine SULFATE 4 MG/ML 1 ML CARP\\VIAL IV PRN (03:38)
[2022-04-13] MEDS: SODIUM CHLORIDE 0.9% 1000ML 1,000 ML IV SCH ×2 (05:31→15:48)
[2022-04-13 06:45] LABS: Hematocrit (blood only) 32.7 % (40.1-51.0); Hemoglobin 11.1 g/dl (14.0-18.0); Mean Corpuscular Hemoglobin 27.7 pg (25.0-34.0); Mean Corpuscular Hgb Conc 33.9 g/dL (32.0-36.0); Mean Corpuscular Volume 81.5 fL (80.0-100.0); Platelet Count 162 K/uL (130-400); RDW Coefficient of Variation 13.2 % (11.5-14.5); RDW Standard Deviation 39.8 fL (36.4-46.3); Red Blood Count 4.01 M/uL (4.63-6.08); White Blood Count 5.14 K/ul (4.8-10.8)
[2022-04-13 07:19] LABS: BUN Creatinine Ratio 14.8 (10-20); Calcium 8.4 mg/dl (8.5-10.1); Creatinine Clr Calc Pharmacy 82.5 ml/min; Est GFR (African American) 67.1 ml/min; Est GFR (Non-African American) 57.9 ml/min; Potassium 4.4 mmol/L (3.5-5.1)
[2022-04-13] MEDS ORDERED: LANTUS PER UNIT CHARGE SQ ONE (09:00)
[2022-04-13] MEDS: PANTOprazole 40 MG in SYRINGE 0 ML IV SCH ×2 (09:11→20:07)
[2022-04-13] MEDS: FAMOTIDINE 20 MG in SYRINGE 3 ML IV SCH ×2 (09:12→20:06)
--- NOTE | 2022-04-13 09:18 | XRay Report ---
XR lumbar spine 2-3V HISTORY: 66 years-old Male post op standing films acute L1 fracture. COMPARISON: CT abdomen and pelvis 04/06/2022 TECHNIQUE: 2 views of the lumbar spine FINDINGS: Acute L1 burst fracture redemonstrated status post vertebroplasty. Small amount of cement material ex tends posterior to the posterior endplate. Mild multilevel vertebral disc space narrowing and spondyl itic spurring with moderate facet arthrosis. No additional acute fracture or subluxation identified. Cholecystectomy. Unremarkable soft tissues. IMPRESSION: Status post vertebroplasty of the acute L1 burst fracture. ACT 112: Negative or not required by law. The above report was generated using voice recognition software. It may contain grammatical, syntax o r spelling errors. Electronically signed by: Giovanni Moreno M.D. 04/13/2022 9:17 AM
[2022-04-13] MEDS: DULoxetine HCL 20 MG CAP PO SCH ×2 (09:38→20:07)
[2022-04-13] MEDS: ASPIRIN 81 MG CHEW NG SCH (09:38)
[2022-04-13] MEDS: amLODIPine BESYLATE 5 MG TAB PO SCH (09:39)
[2022-04-13] MEDS: SENNA 8.6 MG TAB PO SCH (09:39)
[2022-04-13] MEDS: DOCUSATE SODIUM 100 MG CAP PO SCH ×2 (09:43→20:06)
[2022-04-13] MEDS: SODIUM ZIRCONIUM CYCLOSILICATE 10 GM PACKET PO SCH (11:17)
--- NOTE | 2022-04-13 11:22 | Hospitalist Progress Note ---
Date of Service April 13, 2022 Assessment & Plan (1) Closed L1 vertebral fracture: Plan: This is a 66-year-old male who was admitted to the hospital following a fall. He was found to have an L1 burst fracture and is now status post kyphoplasty. -Today's postop day 3 status post kyphoplasty of L1 vertebral body, biopsy of L1 vertebral body. -Pain is under good control. -Repeat lumbar x ray was done, shows post kyphoplasty changes -Appreciate orthospine (2) Constipation: Plan: Patient has not had a bowel movement. Initially thought to be postop ileus however no evidence of postop ileus on x-r ay KUB. Patient admits to chronic constipation even at home and has been known to go for 6 to 9 days without having a bowel movement Currently on MiraLAX and tapwater enema. If still no bowel movement will give him GoLytely bowel preparation (3) Hypertension: Plan: Blood pressure under better control, 156/86 Not on any HTN meds at home Although patient has Type 2 DM, will hold off on ACEI in view of CKD and recurrent hyperkalemia will continue Amlodipine 10mg daily (4) Diabetes mellitus with diabetic polyneuropathy: Plan: Blood glucose is under good control continue to monitor patient recently had a left 2nd toe amputation, continue wound care (5) PAD (peripheral artery disease): Plan: continue ASA and Statin (6) Dyslipidemia: (7) CKD (chronic kidney disease): Plan: Avoid nephrotoxics (8) Depression: Plan: continue home meds (9) GERD (gastroesophageal reflux disease): (10) CAD in [place] artery: Plan continue hospitalization Admission and Anticipated Discharge Date Admission Date: April 07, 2022 Subjective patient seen and examined, still no bowel movement, having bouts of nausea Review of Systems Review of Systems: All systems reviewed are negative, apart from the ones c ontained in the history. Physical Exam Physical Exam: The patient is awake, alert and oriented 3, well developed and well nourished, normocephalic and atraumatic, lying in bed and in no acute distress. HEENT--PERRL, EOMI, mucous membranes and oropharynx mildly dry Neck--supple. No JVD. No bruits. Thyroid normal, trachea midline, no adenopathy. Heart--normal S1 and S2. No murmurs, rubs or gallops. Lungs--clear bilaterally, no respiratory distress, no accessory muscle use. Abdomen--normal bowel sounds and soft. Mild epigastric and left sided abdominal pain Extremities--no cyanosis or clubbing. No edema. Dermatologic--normal skin turgor, normal color, no abnormal lymph nodes, no rash. Neurologic--cranial nerves II through XII grossly intact. Rheumatologic--normal range of motion. Psychiatric--normal affect. Results & Data Results & Data ([facility]) Vital Signs (Past 12 Hours) Vital Signs Temp Pulse Pulse Resp BP BP Pulse Ox 04/13/22 11:12 78 04/13/22 08:05 97.5 F L 74 15 156/86 H 97 04/13/22 03:32 78 18 129/70 93 04/12/22 23:52 97.9 F 82 19 196/107 H 97 O2 Del Method 04/13/22 11:12 04/13/22 08:05 Room Air 04/13/22 03:32 Room Air 04/12/22 23:52 Room Air PG Care Time/CCT Total # of Minutes Spent Total Time Spent with Patient: Total time spent is greater than 50% in coordination of care (as documented) at patient's floor/unit and/or counseling patient: Coding Level of Care Code 05596 SUB INP/OBS CARE 2/35MIN Diagnoses Closed L1 vertebral fracture S32.019A Constipation K59.00 Hypertension I10 Diabetes mellitus with diabetic polyneuropathy E11.42 Diabetes mellitus type: type 2 Diabetes mellitus 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
[2022-04-13] MEDS ORDERED: Nursing to Pharmacy Communication SCH (11:45)
[2022-04-13] MEDS ORDERED: LAVAGE SOLUTION 4000ML PO ONE (19:00)
[2022-04-13] MEDS: ATORVASTATIN 10 MG TAB PO SCH (20:06)
[2022-04-13] MEDS: TAMSULOSIN HCL 0.4 MG CAP PO SCH (20:06)
[2022-04-14] MEDS: SODIUM CHLORIDE 0.9% 1000ML 1,000 ML IV SCH ×3 (01:48→21:58)
[2022-04-14] MEDS: PROMETHAZINE HCL 12.5 MG in SODIUM CHLORIDE 0.9% 50 ML IV PRN (05:13)
[2022-04-14 07:47] LABS: Hematocrit (blood only) 31.8 % (40.1-51.0); Hemoglobin 10.8 g/dl (14.0-18.0); Mean Corpuscular Hemoglobin 27.5 pg (25.0-34.0); Mean Corpuscular Volume 80.9 fL (80.0-100.0); Mean Platelet Volume 9.2 fL (9.4-12.4); Platelet Count 153 K/uL (130-400); RDW Coefficient of Variation 13.5 % (11.5-14.5); RDW Standard Deviation 39.6 fL (36.4-46.3); Red Blood Count 3.93 M/uL (4.63-6.08); White Blood Count 4.96 K/ul (4.8-10.8)
[2022-04-14 08:12] LABS: BUN Creatinine Ratio 12.4 (10-20); Calcium 8.6 mg/dl (8.5-10.1); Creatinine Clr Calc Pharmacy 83.2 ml/min; Est GFR (African American) 66.5 ml/min; Est GFR (Non-African American) 57.4 ml/min
[2022-04-14] MEDS: DULoxetine HCL 20 MG CAP PO SCH ×2 (08:30→20:19)
[2022-04-14] MEDS: ASPIRIN 81 MG CHEW NG SCH (08:30)
[2022-04-14] MEDS: PANTOprazole 40 MG in SYRINGE 0 ML IV SCH ×2 (08:31→20:18)
[2022-04-14] MEDS: SENNA 8.6 MG TAB PO SCH (08:31)
[2022-04-14] MEDS: amLODIPine BESYLATE 5 MG TAB PO SCH (08:31)
[2022-04-14] MEDS: DOCUSATE SODIUM 100 MG CAP PO SCH ×2 (08:34→20:24)
[2022-04-14] MEDS: FAMOTIDINE 20 MG in SYRINGE 3 ML IV SCH ×2 (08:34→20:24)
[2022-04-14] MEDS: INSULIN ASPART PER UNIT SC SCH ×4 (09:11→20:46)
--- NOTE | 2022-04-14 10:43 | Hospitalist Progress Note ---
Date of Service April 14, 2022 Assessment & Plan (1) Closed L1 vertebral fracture: Plan: This is a 66-year-old male who was admitted to the hospital following a fall. He was found to have an L1 burst fracture and is now status post kyphoplasty. -Today's postop day 4 status post kyphoplasty of L1 vertebral body, biopsy of L1 vertebral body. -Pain is under good control. -Repeat lumbar x ray was done, shows post kyphoplasty changes -Appreciate orthospine (2) Constipation: Plan: Now resolved (3) Hypertension: Plan: Blood pressure 168/99 today Not on any HTN meds at home Although patient has Type 2 DM, will hold off on ACEI in view of CKD and recurrent hyperkalemia will continue Amlodipine 10mg daily, add Hydralazine PO 10mg TID (4) Diabetes mellitus with diabetic polyneuropathy: Plan: Blood glucose is under good control continue to monitor patient recently had a left 2nd toe amputation, continue wound care (5) PAD (peripheral artery disease): Plan: continue ASA and Statin (6) Dyslipidemia: (7) CKD (chronic kidney disease): Plan: Avoid nephrotoxics (8) Depression: Plan: continue home meds (9) GERD (gastroesophageal reflux disease): (10) CAD in [place] artery: Plan Medically stable for rehab Admission and Anticipated Discharge Date Admission Date: April 07, 2022 Subjective patient seen and examined, had bowel movement last night Review of Systems Review of Systems: All systems reviewed are negative, apart from the ones contained in the history. Physical Exam Physical Exam: The patient is awake, alert and oriented 3, well developed and well nourished, normocephalic and atraumatic, lying in bed and in no acute distress. HEENT--PERRL, EOMI, mucous membranes and oropharynx mildly dry Neck--supple. No JVD. No bruits. Thyroid normal, trachea midline, no adenopathy. Heart--normal S1 and S2. No murmurs, rubs or gallops. Lungs--clear bilaterally, no respiratory distress, no accessory muscle use. Abdomen--normal bowel sounds and soft. Mild epigastric and left sided abdominal pain Extremities--no cyanosis or clubbing. No edema. Dermatologic--normal skin turgor, normal color, no abnormal lymph nodes, no rash. Neurologic--cranial nerves II through XII grossly intact. Rheumatologic--normal range of motion. Psychiatric--normal affect. Results & Data Results & Data ([facility]) Vital Signs (Past 12 Hours) Vital Signs Temp Pulse Resp BP BP Pulse Ox O2 Del Method 04/14/22 07:21 97.5 F L 75 18 168/99 H 96 Room Air 04/14/22 03:49 98.2 F 69 20 165/86 H 96 Room Air 04/14/22 00:13 98.2 F 65 20 167/82 H 96 Room Air PG Care Time/CCT Total # of Minutes Spent Total Time Spent with Patient: Total time spent is greater than 50% in coordination of care (as documented) at patient's floor/unit and/or counseling patient: Coding Level of Care Code 69809 SUB INP/OBS CARE 2/35MIN Diagnoses Closed L1 vertebral fracture S32.019A Constipation K59.00 Hypertension I10 Diabetes mellitus with diabetic polyneuropathy E11.42 Diabetes mellitus type: type 2 Diabetes mellitus assisted insulin use: unspecified assisted insulin use status PAD (peripheral artery disease) I73.9 Dyslipidemia E78.5 CKD (chronic kidney disease) N18.9 Depression F32.9 GERD (gastroesophageal reflux disease) K21.9 CAD in [place] artery I25.10 Time Spent (min) 35 (1) Diabetes mellitus with diabetic polyneuropathy Diabetes mellitus type: type 2 Diabetes mellitus assisted insulin use: unspe cified assisted insulin use status Qualified Code(s): E11.42 - Type 2 diabetes mellitus with diabetic polyneuropathy
[2022-04-14] MEDS: SODIUM ZIRCONIUM CYCLOSILICATE 10 GM PACKET PO SCH (11:27)
[2022-04-14] MEDS: hydrALAZINE 10 MG TAB PO SCH ×2 (14:52→20:18)
[2022-04-14] MEDS: TAMSULOSIN HCL 0.4 MG CAP PO SCH (20:18)
[2022-04-14] MEDS: ATORVASTATIN 10 MG TAB PO SCH (20:19)
[2022-04-14] MEDS: hydrALAZINE HCL 20 MG/ML VIAL IV PRN (22:44)
[2022-04-15] MEDS: MoRPHine SULFATE 4 MG/ML 1 ML CARP\\VIAL IV PRN ×2 (04:19→21:53)
[2022-04-15] MEDS: SENNA 8.6 MG TAB PO SCH (08:35)
[2022-04-15] MEDS: PANTOprazole 40 MG in SYRINGE 0 ML IV SCH ×2 (08:35→20:31)
[2022-04-15] MEDS: amLODIPine BESYLATE 5 MG TAB PO SCH (08:35)
[2022-04-15] MEDS: hydrALAZINE 10 MG TAB PO SCH ×3 (08:35→20:33)
[2022-04-15] MEDS: ASPIRIN 81 MG CHEW NG SCH (08:35)
[2022-04-15] MEDS: DOCUSATE SODIUM 100 MG CAP PO SCH ×2 (08:36→20:36)
[2022-04-15] MEDS: SODIUM CHLORIDE 0.9% 1000ML 1,000 ML IV SCH (08:36)
[2022-04-15] MEDS: DULoxetine HCL 20 MG CAP PO SCH ×2 (08:36→20:32)
[2022-04-15] MEDS: FAMOTIDINE 20 MG in SYRINGE 3 ML IV SCH ×2 (08:36→20:37)
[2022-04-15] MEDS: INSULIN ASPART PER UNIT SC SCH ×4 (08:40→20:34)
--- NOTE | 2022-04-15 09:47 | Orthopedic Progress Note ---
Date of Service April 15, 2022 Assessment & Plan (1) Closed L1 vertebral fracture: Plan: From orthopedic standpoint he is progressing appropriately. He is to lift no more than 5 pounds. If he is discharged today or tomorrow is to follow-up in our office in 2 weeks for x-rays. Admission and Anticipated Discharge Date Admission Date: April 07, 2022 Subjective Patient's back pain is controlled. His bowels are working better. He is tolerating physical therapy. Physical Exam Physical Exam: On exam he is in bed. Is alert and oriented. Is constricted testing. Results & Data ([facility]) Vital Signs (Past 12 Hours) Vital Signs Temp Pulse Pulse Resp BP BP Pulse Ox 04/15/22 05:57 75 04/15/22 07:08 36.4 C L 75 16 164/89 H 95 04/15/22 02:35 36.6 C 76 18 154/79 H 98 04/14/22 22:29 36.7 C 82 15 176/103 H 181/105 H 96 O2 Del Method 04/15/22 05:57 04/15/22 07:08 Room Air 04/15/22 02:35 Room Air 04/14/22 22:29 Room Air
--- NOTE | 2022-04-15 11:57 | Hospitalist Progress Note ---
Date of Service April 15, 2022 Assessment & Plan (1) Closed L1 vertebral fracture: Plan: This is a 66-year-old male who was admitted to the hospital following a fall. He was found to have an L1 burst fracture and is now status post kyphoplasty. -Today's postop day 4 status post kyphoplasty of L1 vertebral body, biopsy of L1 vertebral body. -Pain is under good control. -Repeat lumbar x ray was done, shows post kyphoplasty changes -Appreciate orthospine (2) Constipation: Plan: Now resolved (3) Hypertension: Plan: Blood pressure 135/72 today Not on any HTN meds at home Although patient has Type 2 DM, will hold off on ACEI in view of CKD and recurrent hyperkalemia will continue Amlodipine 10mg daily, add Hydralazine PO 10mg TID (4) Diabetes mellitus with diabetic polyneuropathy: Plan: Blood glucose is under good control continue to monitor patient recently had a left 2nd toe amputation, continue wound care (5) PAD (peripheral artery disease): Plan: continue ASA and Statin (6) Morbid obesity: Plan: patient adviced on diet and excercise (7) CKD (chronic kidney disease): Plan: Avoid nephrotoxics (8) Depression: Plan: continue home meds (9) GERD (gastroesophageal reflux disease): (10) CAD in [place] artery: (11) Dyslipidemia: Plan Medically stable for rehab Admission and Anticipated Discharge Date Admission Date: April 07, 2022 Subjective patient seen and examined, back pain is under good control Review of Systems Review of Systems: All systems reviewed are negative, apart from the ones contained in the history. Physical Exam Physical Exam: The patient is awake, alert and oriented 3, well developed and well nourished, normocephalic and atraumatic, lying in bed and in no acute distress. HEENT--PERRL, EOMI, mucous membranes and oropharynx mildly dry Neck--supple. No JVD. No bruits. Thyroid normal, trachea midline, no adenopathy. Heart--normal S1 and S2. No murmurs, rubs or gallops. Lungs--clear bilaterally, no respiratory distress, no accessory muscle use. Abdomen--normal bowel sounds and soft. Mild epigastric and left sided abdominal pain Extremities--no cyanosis or clubbing. No edema. Dermatologic--normal skin turgor, normal color, no abnormal lymph nodes, no rash. Neurologic--cranial nerves II through XII grossly intact. Rheumatologic--normal range of motion. Psychiatric--normal affect. Results & Data Results & Data ([facility]) Vital Signs (Past 12 Hours) Vital Signs Temp Pulse Pulse Resp BP Pulse Ox O2 Del Method 04/15/22 11:12 98.4 F 66 20 135/72 95 Room Air 04/15/22 05:57 75 04/15/22 07:08 97.5 F L 75 16 164/89 H 95 Room Air 04/15/22 02:35 97.9 F 76 18 154/79 H 98 Room Air PG Care Time/CCT Total # of Minutes Spent Total Time Spent with Patient: Total time spent is greater than 50% in coordination of care (as documented) at patient's floor/unit and/or counseling patient: Coding Level of Care Code 79886 SUB INP/OBS CARE 2/35MIN Diagnoses Closed L1 vertebral fracture S32.019A Constipation K59.00 Hypertension I10 Diabetes mellitus with diabetic polyneuropathy E11.42 Diabetes mellitus type: type 2 Diabetes mellitus [facility] insulin use: unspecified 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
[2022-04-15] MEDS: SODIUM ZIRCONIUM CYCLOSILICATE 10 GM PACKET PO SCH (12:04)
--- NOTE | 2022-04-15 12:16 | Pharmacy Report ---
Pharmacy Glycemic Short Note 2 - Date of Service April 15, 2022 - Glycemic Short BSG Results (Last 24 hours): 04/14/22 04/14/22 04/15/22 16:11 20:34 07:13 POC Glucose 123 H 175 H 146 H 04/15/22 11:09 POC Glucose 128 H OUTPATIENT ANTIDIABETIC REGIMEN: * Lantus 65 units SQ qAM * Novolog TIDM * metformin 500mg PO BID * Jardiance 25mg PO daily HbA1C: 7.5% (03/06/22) ASSESSMENT: 04/13: * BSGs less than 180 over last 24 hrs * Fasting BSG mildly elevated at 146 this AM with no basal insulin on board. However given all BSGs remain less than 180, this may still be acceptable. Will hold basal at this time, however pt would likely tolerate low dose basal on top of current Novolog doses. 04/12: * BSGs 221-27-168-137mg/dL the last 24h. Patient received no insulin the last 24 hours. * Remains NPO and POD#4. No change to insulin. Continue to hold basal for now until tolerating PO. Novolog parameters unchanged. 04/11: * BSGs below goal at 37-62-60-88mg/dL the last 24h. Patient received 5 units of basal insulin yesterday and no bolus. * Remains NPO. * Basal d/c'd this AM -- will hold basal today given steady decline in BSGs the last couple of days. No change to Novolog parameters. PLAN FOR INPATIENT GLYCEMIC CONTROL: * Hold outpatient oral diabetes medications * Basal insulin * Hold * Bolus insulin * NovoLog per scale ACHS or Q6hrs while NPO * Goal Range: Low 110 mg/dL - High 140 mg/dL * Correction Factor: 30 mg/dL/unit * Nutritional / Prandial insulin per carb ratio of 1 unit per 7 grams CHO consumed
[2022-04-15] MEDS: TAMSULOSIN HCL 0.4 MG CAP PO SCH (20:32)
[2022-04-15] MEDS: ATORVASTATIN 10 MG TAB PO SCH (20:32)
[2022-04-16 06:01] LABS: Hemoglobin 10.5 g/dl (14.0-18.0); Mean Corpuscular Hemoglobin 27.2 pg (25.0-34.0); Mean Corpuscular Hgb Conc 33.9 g/dL (32.0-36.0); Mean Corpuscular Volume 80.3 fL (80.0-100.0); Mean Platelet Volume 9.4 fL (9.4-12.4); Platelet Count 145 K/uL (130-400); RDW Coefficient of Variation 13.7 % (11.5-14.5); RDW Standard Deviation 39.3 fL (36.4-46.3); Red Blood Count 3.86 M/uL (4.63-6.08); White Blood Count 5.61 K/ul (4.8-10.8)
[2022-04-16 06:22] LABS: BUN Creatinine Ratio 10.4 (10-20); Calcium 8.6 mg/dl (8.5-10.1); Creatinine Clr Calc Pharmacy 79.1 ml/min; Est GFR (Non-African American) 54.3 ml/min; Potassium 3.6 mmol/L (3.5-5.1)
[2022-04-16] MEDS: SENNA 8.6 MG TAB PO SCH (08:22)
[2022-04-16] MEDS: hydrALAZINE 10 MG TAB PO SCH ×3 (08:22→20:28)
[2022-04-16] MEDS: PANTOprazole 40 MG in SYRINGE 0 ML IV SCH ×2 (08:22→20:27)
[2022-04-16] MEDS: amLODIPine BESYLATE 5 MG TAB PO SCH (08:22)
[2022-04-16] MEDS: DULoxetine HCL 20 MG CAP PO SCH ×2 (08:23→20:28)
[2022-04-16] MEDS: ASPIRIN 81 MG CHEW NG SCH (08:23)
[2022-04-16] MEDS: FAMOTIDINE 20 MG in SYRINGE 3 ML IV SCH ×2 (08:23→20:27)
[2022-04-16] MEDS: DOCUSATE SODIUM 100 MG CAP PO SCH ×2 (08:23→20:27)
[2022-04-16] MEDS: INSULIN ASPART PER UNIT SC SCH ×4 (08:24→20:22)
[2022-04-16] MEDS ORDERED: LANTUS PER UNIT CHARGE SQ SCH (09:00)
--- NOTE | 2022-04-16 10:11 | Hospitalist Progress Note ---
Date of Service April 16, 2022 Assessment & Plan (1) Closed L1 vertebral fracture: Plan: This is a 66-year-old male who was admitted to the hospital following a fall. He was found to have an L1 burst fracture and is now status post kyphoplasty. -Today's postop day 5 status post kyphoplasty of L1 vertebral body, biopsy of L1 vertebral body. -Pain is under good control. -Repeat lumbar x ray was done, shows post kyphoplasty changes -Appreciate orthospine -Awaiting rehab, participating in PT (2) Constipation: Plan: Now resolved (3) Hypertension: Plan: Blood pressure 141/79 today Not on any HTN meds at home, resume his ACEI, his kidney function has returned to normal will continue Amlodipine 10mg daily, add Hydralazine PO 10mg TID (4) Diabetes mellitus with diabetic polyneuropathy: Plan: Blood glucose is under good control continue to monitor patient recently had a left 2nd toe amputation, continue wound care (5) PAD (peripheral artery disease): Plan: continue ASA and Statin (6) Morbid obesity: Plan: patient adviced on diet and excercise (7) CKD (chronic kidney disease): Plan: Avoid nephrotoxics (8) Depression: Plan: continue home meds (9) GERD (gastroesophageal reflux disease): (10) CAD in [place] artery: (11) Dyslipidemia: Plan Medically stable for rehab Admission and Anticipated Discharge Date Admission Date: April 07, 2022 Subjective patient seen and examined, back pain is under good control, feels stronger, awaiting rehab Review of Systems Review of Systems: All systems reviewed are negative, apart from the ones contained in the history. Physical Exam Physical Exam: The patient is awake, alert and oriented 3, well developed and well nourished, normocephalic and atraumatic, lying in bed and in no acute distress. HEENT--PERRL, EOMI, mucous membranes and oropharynx mildly dry Neck--supple. No JVD. No bruits. Thyroid normal, trachea midline, no adenopathy. Heart--normal S1 and S2. No murmurs, rubs or gallops. Lungs--clear bilaterally, no respiratory distress, no accessory muscle use. Abdomen--normal bowel sounds and soft. Mild epigastric and left sided abdominal pain Extremities--no cyanosis or clubbing. No edema. Dermatologic--normal skin turgor, normal color, no abnormal lymph nodes, no rash. Neurologic--cranial nerves II through XII grossly intact. Rheumatologic--normal range of motion. Psychiatric--normal affect. Results & Data Results & Data ([facility]) Vital Signs (Past 12 Hours) Vital Signs Temp Pulse Resp BP Pulse Ox O2 Del Method 04/16/22 07:40 97.9 F 74 19 141/79 H 94 Room Air 04/16/22 02:42 97.7 F 77 17 136/72 96 Room Air 04/15/22 22:49 97.9 F 81 17 167/104 H 96 Room Air PG Care Time/CCT Total # of Minutes Spent Total Time Spent with Patient: Total time spent is greater than 50% in coordination of care (as documented) at patient's floor/unit and/or counseling patient: Coding Level of Care Code 38040 SUB INP/OBS CARE 2/35MIN Diagnoses Closed L1 vertebral fracture S32.019A Constipation K59.00 Hypertension I10 Diabetes mellitus with diabetic polyneuropathy E11.42 Diabetes mellitus type: type 2 Diabetes mellitus residential insulin use: unspecified residential insulin use status PAD (peripheral artery disease) I73.9 Morbid obesity E66.01 CKD (chronic kidney disease) N18.9 Depression F32.9 GERD (gastroesophageal reflux disease) K21.9 CAD in [place] artery I25.10 Dyslipidemia E78.5 Time Spent (min) 35 (1) Diabetes mellitus with diabetic polyneuropathy Diabetes mellitus type: type 2 Diabetes mellitus residential insulin use: unspecified residential insulin use status Qualified Code(s): E11.42 - Type 2 diabetes mellitus with diabetic polyneuropathy
[2022-04-16] MEDS: SODIUM ZIRCONIUM CYCLOSILICATE 10 GM PACKET PO SCH (12:17)
--- NOTE | 2022-04-16 14:24 | Pharmacy Report ---
Pharmacy Glycemic Short Note 2 - Date of Service April 16, 2022 - Glycemic Short BSG Results (Last 24 hours): 04/15/22 04/15/22 04/16/22 16:33 20:07 05:37 Glucose 164 H POC Glucose 97 108 H 04/16/22 04/16/22 07:14 11:12 Glucose POC Glucose 154 H 122 H OUTPATIENT ANTIDIABETIC REGIMEN: * Lantus 65 units SQ qAM * Novolog TIDM * metformin 500mg PO BID * Jardiance 25mg PO daily HbA1C: 7.5% (03/06/22) ASSESSMENT: 04/16: * Fasting BSG trended up again this morning though all BSGs remain below 180. Will add a low dose basal order for this morning. * Continue current novolog scale 04/13: * BSGs less than 180 over last 24 hrs * Fasting BSG mildly elevated at 146 this AM with no basal insulin on board. However given all BSGs remain less than 180, this may still be acceptable. Will hold basal at this time, however pt would likely tolerate low dose basal on top of current Novolog doses. 04/12: * BSGs 352-19-728-137mg/dL the last 24h. Patient received no insulin the last 24 hours. * Remains NPO and POD#4. No change to insulin. Continue to hold basal for now until tolerating PO. Novolog parameters unchanged. 04/11: * BSGs below goal at 70-19-24-88mg/dL the last 24h. Patient received 5 units of basal insulin yesterday and no bolus. * Remains NPO. * Basal d/c'd this AM -- will hold basal today given steady decline in BSGs the last couple of days. No change to Novolog parameters. PLAN FOR INPATIENT GLYCEMIC CONTROL: * Hold outpatient oral diabetes medications * Basal insulin * 5 units qam * Bolus insulin * NovoLog per scale ACHS or Q6hrs while NPO * Goal Range: Low 110 mg/dL - High 140 mg/dL * Correction Factor: 30 mg/dL/unit * Nutritional / Prandial insulin per carb ratio of 1 unit per 7 grams CHO consumed
[2022-04-16] MEDS: TAMSULOSIN HCL 0.4 MG CAP PO SCH (20:27)
[2022-04-16] MEDS: ATORVASTATIN 10 MG TAB PO SCH (20:27)
[2022-04-17] MEDS: LANTUS PER UNIT CHARGE SQ SCH (08:57)
[2022-04-17] MEDS: INSULIN ASPART PER UNIT SC SCH ×4 (08:58→21:48)
[2022-04-17] MEDS: SENNA 8.6 MG TAB PO SCH (09:00)
[2022-04-17] MEDS: hydrALAZINE 10 MG TAB PO SCH ×3 (09:01→20:52)
[2022-04-17] MEDS: ASPIRIN 81 MG CHEW NG SCH (09:01)
[2022-04-17] MEDS: DULoxetine HCL 20 MG CAP PO SCH ×2 (09:01→20:51)
[2022-04-17] MEDS: amLODIPine BESYLATE 5 MG TAB PO SCH (09:01)
[2022-04-17] MEDS: PANTOprazole 40 MG in SYRINGE 0 ML IV SCH (09:02)
[2022-04-17] MEDS: DOCUSATE SODIUM 100 MG CAP PO SCH ×2 (09:04→20:51)
[2022-04-17] MEDS: FAMOTIDINE 20 MG in SYRINGE 3 ML IV SCH (09:04)
[2022-04-17] MEDS: MoRPHine SULFATE 2 MG/ML CARP IV PRN (09:21)
[2022-04-17] MEDS: POLYETHYLENE (MIRALAX) 17 GM PACK PO PRN (09:25)
--- NOTE | 2022-04-17 10:41 | Pharmacy Report ---
Pharmacy Glycemic Short Note 2 - Date of Service April 17, 2022 - Glycemic Short BSG Results (Last 24 hours): 04/16/22 04/16/22 04/16/22 11:12 16:23 20:11 POC Glucose 122 H 88 105 H 04/17/22 07:26 POC Glucose 165 H OUTPATIENT ANTIDIABETIC REGIMEN: * Lantus 65 units SQ qAM * Novolog TIDM * metformin 500mg PO BID * Jardiance 25mg PO daily HbA1C: 7.5% (03/06/22) ASSESSMENT: 04/17: * BSGs again favorable over last 24 hrs * Basal insulin was added yesterday for elevated fasting AM BSGs. Fasting BSG 165 today with 5 units basal on board. Will continue current basal dose as it is too soon to titrate upwards, and given other BSGs throughout the day are at goal. * Will lessen prandial insulin dose somewhat now that basal on board and following a few BSGs in 80-90s post-prandial over the last 2 days. 04/16: * Fasting BSG trended up again this morning though all BSGs remain below 180. Will add a low dose basal order for this morning. * Continue current novolog scale 04/15: * BSGs less than 180 over last 24 hrs * Fasting BSG mildly elevated at 146 this AM with no basal insulin on board. However given all BSGs remain less than 180, this may still be acceptable. Will hold basal at this time, however pt would likely tolerate low dose basal on top of current Novolog doses. PLAN FOR INPATIENT GLYCEMIC CONTROL: * Hold outpatient oral diabetes medications * Basal insulin * Lantus 5 units Q AM * Bolus insulin * NovoLog per scale ACHS or Q6hrs while NPO * Goal Range: Low 110 mg/dL - High 140 mg/dL * Correction Factor: 30 mg/dL/unit * Nutritional / Prandial insulin per carb ratio of 1 unit per 8 grams CHO consumed
--- NOTE | 2022-04-17 12:03 | Hospitalist Progress Note ---
Date of Service April 17, 2022 Assessment & Plan (1) Closed L1 vertebral fracture: Plan: This is a 66-year-old male who was admitted to the hospital following a fall. He was found to have an L1 burst fracture and is now status post kyphoplasty. -Today's postop day 5 status post kyphoplasty of L1 vertebral body, biopsy of L1 vertebral body. -Pain is under good control. -Repeat lumbar x ray was done, shows post kyphoplasty changes -Appreciate orthospine -Participating in PT -Insurance denied [facility], SW working on SNF (2) Constipation: Plan: Now resolved (3) Hypertension: Plan: Blood pressure 122/68 today will continue Amlodipine 10mg daily, add Hydralazine PO 10mg TID (4) Diabetes mellitus with diabetic polyneuropathy: Plan: Blood glucose is under good control continue to monitor patient recently had a left 2nd toe amputation, continue wound care (5) PAD (peripheral artery disease): Plan: continue ASA and Statin (6) Morbid obesity: Plan: patient adviced on diet and excercise (7) CKD (chronic kidney disease): Plan: Avoid nephrotoxics (8) Depression: Plan: continue home meds (9) GERD (gastroesophageal reflux disease): (10) CAD in [place] artery: (11) Dyslipidemia: Plan Medically stable for SNF Admission and Anticipated Discharge Date Admission Date: April 07, 2022 Subjective patient seen and examined, back pain is under good control, feels stronger, insurance denied rehab, looking towards SNF Review of Systems Review of Systems: All systems reviewed are negative, apart from the ones cont ained in the history. Physical Exam Physical Exam: The patient is awake, alert and oriented 3, well developed and well nourished, normocephalic and atraumatic, lying in bed and in no acute distress. HEENT--PERRL, EOMI, mucous membranes and oropharynx mildly dry Neck--supple. No JVD. No bruits. Thyroid normal, trachea midline, no adenopathy. Heart--normal S1 and S2. No murmurs, rubs or gallops. Lungs--clear bilaterally, no respiratory distress, no accessory muscle use. Abdomen--normal bowel sounds and soft. Mild epigastric and left sided abdominal pain Extremities--no cyanosis or clubbing. No edema. Dermatologic--normal skin turgor, normal color, no abnormal lymph nodes, no rash. Neurologic--cranial nerves II through XII grossly intact. Rheumatologic--normal range of motion. Psychiatric--normal affect. Results & Data Results & Data ([facility]) Vital Signs (Past 12 Hours) Vital Signs Temp Pulse Pulse Resp BP Pulse Ox O2 Del Method 04/17/22 11:27 98.2 F 59 L 18 122/68 96 Room Air 04/17/22 08:00 63 04/17/22 07:48 97.9 F 71 18 156/80 H 97 Room Air 04/17/22 02:26 97.9 F 67 16 145/76 H 95 Room Air PG Care Time/CCT Total # of Minutes Spent Total Time Spent with Patient: Total time spent is greater than 50% in coordination of care (as documented) at patient's floor/unit and/or counseling patient: Coding Level of Care Code 25289 SUB INP/OBS CARE 2/35MIN Diagnoses Closed L1 vertebral fracture S32.019A Constipation K59.00 Hypertension I10 Diabetes mellitus with diabetic polyneuropathy E11.42 Diabetes mellitus type: type 2 Diabetes mellitus shelter insulin use: unspecified shelter insulin use status PAD (peripheral artery disease) I73.9 Morbid obesity E66.01 CKD (chronic kidney disease) N18.9 Depression F32.9 GERD (gastroesophageal reflux disease) K21.9 CAD in [place] artery I25.10 Dyslipidemia E78.5 Time Spent (min) 35 (1) Diabetes mellitus with diabetic polyneuropathy Diabetes mellitus type: type 2 Diabetes mellitus 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
[2022-04-17] MEDS: SODIUM ZIRCONIUM CYCLOSILICATE 10 GM PACKET PO SCH (12:14)
[2022-04-17] MEDS ORDERED: bisacodyL 5 MG TABEC PO ONE (12:15)
[2022-04-17] MEDS: TAMSULOSIN HCL 0.4 MG CAP PO SCH (20:51)
[2022-04-17] MEDS: ATORVASTATIN 10 MG TAB PO SCH (20:52)
[2022-04-17] MEDS: PANTOprazole 40 MG TAB PO SCH (21:59)
[2022-04-17] MEDS: FAMOTIDINE 20 MG TAB PO SCH (21:59)
[2022-04-18] MEDS: ASPIRIN 81 MG CHEW NG SCH (08:06)
[2022-04-18] MEDS: hydrALAZINE 10 MG TAB PO SCH ×3 (08:06→21:53)
[2022-04-18] MEDS: SENNA 8.6 MG TAB PO SCH (08:06)
[2022-04-18] MEDS: PANTOprazole 40 MG TAB PO SCH ×2 (08:06→21:52)
[2022-04-18] MEDS: DULoxetine HCL 20 MG CAP PO SCH ×2 (08:07→21:52)
[2022-04-18] MEDS: amLODIPine BESYLATE 5 MG TAB PO SCH (08:07)
[2022-04-18] MEDS: bisacodyL 5 MG TABEC PO SCH (08:11)
[2022-04-18] MEDS: DOCUSATE SODIUM 100 MG CAP PO SCH ×2 (08:11→21:53)
[2022-04-18] MEDS: INSULIN ASPART PER UNIT SC SCH ×4 (08:17→22:54)
[2022-04-18] MEDS: POLYETHYLENE (MIRALAX) 17 GM PACK PO SCH ×2 (08:17→09:43)
[2022-04-18] MEDS: LANTUS PER UNIT CHARGE SQ SCH (08:17)
[2022-04-18] MEDS: FAMOTIDINE 20 MG TAB PO SCH ×2 (08:35→21:53)
[2022-04-18 08:47] LABS: BUN Creatinine Ratio 12.7 (10-20); Calcium 8.9 mg/dl (8.5-10.1); Creatinine Clr Calc Pharmacy 71.1 ml/min; Est GFR (African American) 55.4 ml/min; Est GFR (Non-African American) 47.8 ml/min; Potassium 3.9 mmol/L (3.5-5.1)
--- NOTE | 2022-04-18 10:55 | Hospitalist Progress Note ---
Date of Service April 18, 2022 Assessment & Plan (1) Closed L1 vertebral fracture: Plan: This is a 66-year-old male who was admitted to the hospital following a fall. He was found to have an L1 burst fracture and is now status post kyphoplasty. -Today's postop day 7 status post kyphoplasty of L1 vertebral body, biopsy of L1 vertebral body. -Pain is under good control. -Repeat lumbar x ray was done, shows post kyphoplasty changes -Appreciate orthospine -Participating in PT -Insurance denied [facility], SW working on SNF (2) Constipation: Plan: Initially resolved, but hasnt had a BM in 3 days patient says at home he usually moves his bowels every 6-9 days continue bowel regimen (3) Hypertension: Plan: Blood pressure 149/78 today will continue Amlodipine 10mg daily, Hydralazine PO 10mg TID (4) Diabetes mellitus with diabetic polyneuropathy: Plan: Blood glucose is under good control continue to monitor patient is post left 2nd toe amputation, continue wound care (5) PAD (peripheral artery disease): Plan: continue ASA and Statin (6) Acute kidney injury superimposed on chronic kidney disease: Plan: most likely due to dehydration gentle hydration with NS at 80cc/hr recheck BMP (7) Morbid obesity: Plan: patient adviced on diet and excercise (8) CKD (chronic kidney disease): Plan: Avoid nephrotoxics (9) Depression: Plan: continue home meds (10) GERD (gastroesophageal reflux disease): (11) CAD in [place] artery: (12) Dyslipidemia: Plan Medically stable for SNF Admission and Anticipated Discharge Date Admission Date: April 07, 2022 Subjective patient seen and examined, back pain is under good control, feels stronger, insurance denied rehab, looking towards SNF, has not had a BM in 3 days Review of Systems Review of Systems: All systems reviewed are negative, apart from the ones contained in the history. Physical Exam Physical Exam: The patient is awake, alert and oriented 3, well developed and well nourished, normocephalic and atraumatic, lying in bed and in no acute distress. HEENT--PERRL, EOMI, mucous membranes and oropharynx mildly dry Neck--supple. No JVD. No bruits. Thyroid normal, trachea midline, no adenopathy. Heart--normal S1 and S2. No murmurs, rubs or gallops. Lungs--clear bilaterally, no respiratory distress, no accessory muscle use. Abdomen--normal bowel sounds and soft. Mild epigastric and left sided abdominal pain Extremities--no cyanosis or clubbing. No edema. Dermatologic--normal skin turgor, normal color, no abnormal lymph nodes, no rash. Neurologic--cranial nerves II through XII grossly intact. Rheumatologic--normal range of motion. Psychiatric--normal affect. Results & Data Results & Data ([facility]) Vital Signs (Past 12 Hours) Vital Signs Temp Pulse Pulse Resp BP Pulse Ox O2 Del Method 04/18/22 07:26 98.1 F 61 19 149/78 H 96 Room Air 04/18/22 03:07 97.9 F 71 18 138/85 94 Room Air 04/18/22 00:59 82 04/18/22 00:45 97.5 F L 72 20 110/72 94 Room Air PG Care Time/CCT Total # of Minutes Spent Total Time Spent with Patient: Total time spent is greater than 50% in coordination of care (as documented) at patient's floor/unit and/or counseling patient: Coding Level of Care Code 91020 SUB INP/OBS CARE 2/35MIN Diagnoses Closed L1 vertebral fracture S32.019A Constipation K59.00 Hypertension I10 Diabetes mellitus with diabetic polyneuropathy E11.42 Diabetes mellitus type: type 2 Diabetes mellitus shelter insulin use: unspecified long term care 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
[2022-04-18] MEDS: SODIUM CHLORIDE 0.9% 1000ML 1,000 ML IV SCH ×2 (11:55→22:39)
[2022-04-18] MEDS: SODIUM ZIRCONIUM CYCLOSILICATE 10 GM PACKET PO SCH (11:56)
[2022-04-18] MEDS: ATORVASTATIN 10 MG TAB PO SCH (21:52)
[2022-04-18] MEDS: TAMSULOSIN HCL 0.4 MG CAP PO SCH (21:53)
[2022-04-19] MEDS: MoRPHine SULFATE 2 MG/ML CARP IV PRN (03:11)
[2022-04-19] MEDS: SENNA 8.6 MG TAB PO SCH (08:14)
[2022-04-19] MEDS: ASPIRIN 81 MG CHEW NG SCH (08:14)
[2022-04-19] MEDS: POLYETHYLENE (MIRALAX) 17 GM PACK PO SCH (08:14)
[2022-04-19] MEDS: PANTOprazole 40 MG TAB PO SCH ×2 (08:14→21:03)
[2022-04-19] MEDS: FAMOTIDINE 20 MG TAB PO SCH ×2 (08:14→21:03)
[2022-04-19] MEDS: amLODIPine BESYLATE 5 MG TAB PO SCH (08:14)
[2022-04-19] MEDS: DULoxetine HCL 20 MG CAP PO SCH ×2 (08:15→21:03)
[2022-04-19] MEDS: hydrALAZINE 10 MG TAB PO SCH ×3 (08:15→21:03)
[2022-04-19] MEDS: INSULIN ASPART PER UNIT SC SCH ×4 (08:21→21:08)
[2022-04-19] MEDS: LANTUS PER UNIT CHARGE SQ SCH (08:22)
[2022-04-19] MEDS: DOCUSATE SODIUM 100 MG CAP PO SCH ×2 (08:29→21:02)
[2022-04-19] MEDS: bisacodyL 5 MG TABEC PO SCH (08:29)
--- NOTE | 2022-04-19 10:36 | Pharmacy Report ---
Pharmacy Glycemic Short Note 2 - Date of Service April 19, 2022 - Glycemic Short BSG Results (Last 24 hours): 04/18/22 04/18/22 04/18/22 11:32 16:11 21:12 POC Glucose 150 H 120 H 169 H 04/18/22 04/19/22 22:48 07:19 POC Glucose 155 H 170 H OUTPATIENT ANTIDIABETIC REGIMEN: * Lantus 65 units SQ qAM * Novolog TIDM * metformin 500mg PO BID * Jardiance 25mg PO daily HbA1C: 7.5% (03/06/22) ASSESSMENT: 04/19: * BSGs well controlled with exception of elevated fasting BSG. Will uptitrate basal dose today. 04/17: * BSGs again favorable over last 24 hrs * Basal insulin was added yesterday for elevated fasting AM BSGs. Fasting BSG 165 today with 5 units basal on board. Will continue current basal dose as it is too soon to titrate upwards, and given other BSGs throughout the day are at goal. * Will lessen prandial insulin dose somewhat now that basal on board and following a few BSGs in 80-90s post-prandial over the last 2 days. 04/16: * Fasting BSG trended up again this morning though all BSGs remain below 180. Will add a low dose basal order for this morning. * Continue current novolog scale PLAN FOR INPATIENT GLYCEMIC CONTROL: * Hold outpatient oral diabetes medications * Basal insulin * Lantus 7 units Q AM * Bolus insulin * NovoLog per scale ACHS or Q6hrs while NPO * Goal Range: Low 110 mg/dL - High 140 mg/dL * Correction Factor: 30 mg/dL/unit * Nutritional / Prandial insulin per carb ratio of 1 unit per 8 grams CHO consumed
[2022-04-19] MEDS ORDERED: LAVAGE SOLUTION 4000ML PO ONE (11:15)
[2022-04-19] MEDS: SODIUM ZIRCONIUM CYCLOSILICATE 10 GM PACKET PO SCH (12:00)
--- NOTE | 2022-04-19 12:11 | Progress Note ---
Date of Service April 19, 2022 Assessment & Plan (1) Status post amputation of toe of left foot: Plan: may remove dressings tomorrow and replace with band aid, apply new bandaid daily Admission and Anticipated Discharge Date Admission Date: April 07, 2022 Subjective Patient is known to me, underwent left foot 2nd toe amputation on 03/27/22, was hospitalized and had subsequent surgery on his back due to a fall. contacted my office stated he was in the hospital and wanted to know what to do with his sutures/ incision from toe amputation. - patient seen at bedside today for suture removal - incision well healing - may continue band aid over the incision, I removed all sutures, without complications, no infection noted, I placed a gauze dressing with steri strips, steri strips can fall off, none further needed may apply band aid daily - patient to f/u with me in my office post d/c Physical Exam Skin: s/p left 2nd toe amputation, incision well healed without dehiscence, no infection or cellulitis present Results & Data ([facility]) Vital Signs (Past 12 Hours) Vital Signs Temp Pulse Resp BP BP Pulse Ox O2 Del Method 04/19/22 10:58 36.8 C 58 L 18 103/57 L 90 Room Air 04/19/22 08:00 Room Air 04/19/22 07:17 36.4 C L 72 18 137/80 92 Room Air 04/19/22 04:03 36.4 C L 64 20 162/93 H 94 Room Air
--- NOTE | 2022-04-19 12:24 | Hospitalist Progress Note ---
Date of Service April 19, 2022 Assessment & Plan (1) Closed L1 vertebral fracture: Plan: This is a 66-year-old male who was admitted to the hospital following a fall. He was found to have an L1 burst fracture and is now status post kyphoplasty. -Today's postop day 8 status post kyphoplasty of L1 vertebral body, biopsy of L1 vertebral body. -Pain is under good control. -Repeat lumbar x ray was done, shows post kyphoplasty changes -Appreciate orthospine -Participating in PT -Insurance denied [facility], SW working on SNF (2) Constipation: Plan: Initially resolved, but hasnt had a BM in 4 days patient says at home he usually moves his bowels every 6-9 days continue bowel regimen, add Golyetly (3) Hypertension: Plan: Blood pressure soft today will continue Amlodipine 10mg daily, Hydralazine PO 10mg TID (4) Diabetes mellitus with diabetic polyneuropathy: Plan: Blood glucose is under good control continue to monitor patient is post left 2nd toe amputation, continue wound care sutures were removed today by Podiatry (5) PAD (peripheral artery disease): Plan: continue ASA and Statin (6) Acute kidney injury superimposed on chronic kidney disease: Plan: most likely due to dehydration gentle hydration with NS at 80cc/hr recheck BMP (7) Morbid obesity: Plan: patient adviced on diet and excercise (8) CKD (chronic kidney disease): Plan: Avoid nephrotoxics (9) Depression: Plan: continue home meds (10) GERD (gastroesophageal reflux disease): (11) CAD in [place] artery: (12) Dyslipidemia: Plan Medically stable for SNF Admission and Anticipated Discharge Date Admission Date: April 07, 2022 Subjective patient seen and examined, no BM in 4 days, but passing gas Review of Systems Review of Systems: All systems reviewed are negative, apart from the ones contained in the history. Physical Exam Physical Exam: The patient is awake, alert and oriented 3, well developed and well nourished, normocephalic and atraumatic, lying in bed and in no acute distress. HEENT--PERRL, EOMI, mucous membranes and oropharynx mildly dry Neck--supple. No JVD. No bruits. Thyroid normal, trachea midline, no adenopathy. Heart--normal S1 and S2. No murmurs, rubs or gallops. Lungs--clear bilaterally, no respiratory distress, no accessory muscle use. Abdomen--normal bowel sounds and soft. Mild epigastric and left sided abdominal pain Extremities--no cyanosis or clubbing. No edema. Dermatologic--normal skin turgor, normal color, no abnormal lymph nodes, no rash. Neurologic--cranial nerves II through XII grossly intact. Rheumatologic--normal range of motion. Psychiatric--normal affect. Results & Data Results & Data ([facility]) Vital Signs (Past 12 Hours) Vital Signs Temp Pulse Resp BP BP Pulse Ox O2 Del Method 04/19/22 10:58 98.2 F 58 L 18 103/57 L 90 Room Air 04/19/22 08:00 Room Air 04/19/22 07:17 97.5 F L 72 18 137/80 92 Room Air 04/19/22 04:03 97.5 F L 64 20 162/93 H 94 Room Air PG Care Time/CCT Total # of Minutes Spent Total Time Spent with Patient: Total time spent is greater than 50% in coordination of care (as documented) at patient's floor/unit and/or counseling patient: Coding Level of Care Code 93070 SUB INP/OBS CARE 2/35MIN Diagnoses Closed L1 vertebral fracture S32.019A Constipation K59.00 Hypertension I10 Diabetes mellitus with diabetic polyneuropathy E11.42 Diabetes mellitus type: type 2 Diabetes mellitus terminal operator insulin use: unspecified longterm insulin use status PAD (peripheral artery disease) I73.9 Acute kidney injury superimposed on chronic kidney disease N17.9; N18.9 Morbid obesity E66.01 CKD (chronic kidney disease) N18.9 Depression F32.9 GERD (gastroesophageal reflux disease) K21.9 CAD in [place] artery I25.10 Dyslipidemia E78.5 Time Spent (min) 35 (1) Diabetes mellitus with diabetic polyneuropathy Diabetes mellitus type: type 2 Diabetes mellitus longterm insulin use: unspecified longterm insulin use status Qualified Code(s): E11.42 - Type 2 diabetes mellitus with diabetic polyneuropathy
[2022-04-19] MEDS: TAMSULOSIN HCL 0.4 MG CAP PO SCH (21:02)
[2022-04-19] MEDS: ATORVASTATIN 10 MG TAB PO SCH (21:02)
[2022-04-20 06:48] LABS: Hematocrit (blood only) 31.8 % (40.1-51.0); Hemoglobin 10.8 g/dl (14.0-18.0); Mean Corpuscular Hemoglobin 27.7 pg (25.0-34.0); Mean Corpuscular Volume 81.5 fL (80.0-100.0); Platelet Count 159 K/uL (130-400); RDW Coefficient of Variation 14.2 % (11.5-14.5); RDW Standard Deviation 41.1 fL (36.4-46.3); White Blood Count 6.16 K/ul (4.8-10.8)
[2022-04-20 07:18] LABS: BUN Creatinine Ratio 16.5 (10-20); Creatinine Clr Calc Pharmacy 76.1 ml/min; Est GFR (African American) 60.8 ml/min; Est GFR (Non-African American) 52.4 ml/min; Potassium 3.9 mmol/L (3.5-5.1)
[2022-04-20] MEDS: INSULIN ASPART PER UNIT SC SCH ×4 (07:58→20:54)
[2022-04-20] MEDS: FAMOTIDINE 20 MG TAB PO SCH ×2 (08:03→20:57)
[2022-04-20] MEDS: MoRPHine SULFATE 2 MG/ML CARP IV PRN (08:03)
[2022-04-20] MEDS: DULoxetine HCL 20 MG CAP PO SCH ×2 (08:03→20:57)
[2022-04-20] MEDS: PANTOprazole 40 MG TAB PO SCH ×2 (08:04→20:58)
[2022-04-20] MEDS: amLODIPine BESYLATE 5 MG TAB PO SCH (08:04)
[2022-04-20] MEDS: hydrALAZINE 10 MG TAB PO SCH ×3 (08:04→20:58)
[2022-04-20] MEDS: DOCUSATE SODIUM 100 MG CAP PO SCH ×2 (08:05→21:10)
[2022-04-20] MEDS: bisacodyL 5 MG TABEC PO SCH (08:05)
[2022-04-20] MEDS: ASPIRIN 81 MG CHEW NG SCH (08:05)
[2022-04-20] MEDS: SENNA 8.6 MG TAB PO SCH (08:06)
[2022-04-20] MEDS: POLYETHYLENE (MIRALAX) 17 GM PACK PO SCH (08:06)
[2022-04-20] MEDS: LANTUS PER UNIT CHARGE SQ SCH (08:12)
--- NOTE | 2022-04-20 11:24 | Hospitalist Progress Note ---
Date of Service April 20, 2022 Assessment & Plan (1) Closed L1 vertebral fracture: Plan: This is a 66-year-old male who was admitted to the hospital following a fall. He was found to have an L1 burst fracture and is now status post kyphoplasty. -Today's postop day 9 status post kyphoplasty of L1 vertebral body, biopsy of L1 vertebral body. -Pain is under good control. -Repeat lumbar x ray was done, shows post kyphoplasty changes -Appreciate orthospine -Participating in PT -Insurance denied [facility], SW working on SNF (2) Constipation: Plan: resolved (3) Hypertension: Plan: Blood pressure soft today will continue Amlodipine 10mg daily, Hydralazine PO 10mg TID (4) Diabetes mellitus with diabetic polyneuropathy: Plan: Blood glucose is under good control continue to monitor patient is post left 2nd toe amputation, continue wound care sutures were removed today by Podiatry (5) PAD (peripheral artery disease): Plan: continue ASA and Statin (6) Acute kidney injury superimposed on chronic kidney disease: Plan: resolved (7) Morbid obesity: Plan: patient adviced on diet and excercise (8) CKD (chronic kidney disease): Plan: Avoid nephrotoxics (9) Depression: Plan: continue home meds (10) GERD (gastroesophageal reflux disease): (11) CAD in [place] artery: (12) Dyslipidemia: Plan Medically stable for SNF Admission and Anticipated Discharge Date Admission Date: April 07, 2022 Subjective patient seen and examined, had a bowel movement Review of Systems Review of Systems: All systems reviewed are negative, apart from the ones contained in the history. Physical Exam Physical Exam: The patient is awake, alert and oriented 3, well developed and well nourished, normocephalic and atraumatic, lying in bed and in no acute distress. HEENT--PERRL, EOMI, mucous membranes and oropharynx mildly dry Neck--supple. No JVD. No bruits. Thyroid normal, trachea midline, no adenopathy. Heart--normal S1 and S2. No murmurs, rubs or gallops. Lungs--clear bilaterally, no respiratory distress, no accessory muscle use. Abdomen--normal bowel sounds and soft. Mild epigastric and left sided abdominal pain Extremities--no cyanosis or clubbing. No edema. Dermatologic--normal skin turgor, normal color, no abnormal lymph nodes, no rash. Neurologic--cranial nerves II through XII grossly intact. Rheumatologic--normal range of motion. Psychiatric--normal affect. Results & Data Results & Data ([facility]) Vital Signs (Past 12 Hours) Vital Signs Temp Pulse Pulse Resp BP BP Pulse Ox 04/20/22 08:00 97.9 F 67 18 167/87 H 95 04/20/22 07:33 59 L 04/20/22 03:28 97.3 F L 70 19 158/86 H 96 O2 Del Method 04/20/22 08:00 Room Air 04/20/22 07:33 04/20/22 03:28 Room Air PG Care Time/CCT Total # of Minutes Spent Total Time Spent with Patient: Total time spent is greater than 50% in coordination of care (as documented) at patient's floor/unit and/or counseling patient: Coding Level of Care Code 66842 SUB INP/OBS CARE 2/35MIN Diagnoses Closed L1 vertebral fracture S32.019A Constipation K59.00 Hypertension I10 Diabetes mellitus with diabetic polyneuropathy E11.42 Diabetes mellitus type: type 2 Diabetes mellitus medical terminologist insulin use: unspecified custodial insulin use status PAD (peripheral artery disease) I73.9 Acute kidney injury superimposed on chronic kidney disease N17.9; N18.9 Morbid obesity E66.01 CKD (chronic kidney disease) N18.9 Depression F32.9 GERD (gastroesophageal reflux disease) K21.9 CAD in [place] artery I25.10 Dyslipidemia E78.5 Time Spent (min) 35 (1) Diabetes mellitus with diabetic polyneuropathy Diabetes mellitus type: type 2 Diabetes mellitus custodial insulin use: unspecified custodial insulin use status Qualified Code(s): E11.42 - Type 2 diabetes mellitus with diabetic polyneuropathy
[2022-04-20] MEDS: SODIUM ZIRCONIUM CYCLOSILICATE 10 GM PACKET PO SCH (11:48)
[2022-04-20] MEDS: ATORVASTATIN 10 MG TAB PO SCH (20:56)
[2022-04-20] MEDS: TAMSULOSIN HCL 0.4 MG CAP PO SCH (20:59)
[2022-04-21] MEDS: INSULIN ASPART PER UNIT SC SCH ×4 (08:00→21:13)
[2022-04-21] MEDS: DULoxetine HCL 20 MG CAP PO SCH ×2 (08:23→21:15)
[2022-04-21] MEDS: PANTOprazole 40 MG TAB PO SCH ×2 (08:23→21:15)
[2022-04-21] MEDS: FAMOTIDINE 20 MG TAB PO SCH ×2 (08:23→21:15)
[2022-04-21] MEDS: hydrALAZINE 10 MG TAB PO SCH ×3 (08:23→21:16)
[2022-04-21] MEDS: amLODIPine BESYLATE 5 MG TAB PO SCH (08:24)
[2022-04-21] MEDS: ASPIRIN 81 MG CHEW NG SCH (08:24)
[2022-04-21] MEDS: bisacodyL 5 MG TABEC PO SCH (08:25)
[2022-04-21] MEDS: SENNA 8.6 MG TAB PO SCH (08:25)
[2022-04-21] MEDS: ACETAMINOPHEN 325 MG TAB PO PRN (08:34)
[2022-04-21] MEDS: LANTUS PER UNIT CHARGE SQ SCH (08:35)
[2022-04-21] MEDS: POLYETHYLENE (MIRALAX) 17 GM PACK PO SCH (08:39)
[2022-04-21] MEDS: DOCUSATE SODIUM 100 MG CAP PO SCH ×2 (08:41→21:18)
[2022-04-21] MEDS ORDERED: LAVAGE SOLUTION 4000ML PO SCH (11:00)
--- NOTE | 2022-04-21 11:37 | Hospitalist Progress Note ---
Date of Service April 21, 2022 Assessment & Plan (1) Closed L1 vertebral fracture: Plan: This is a 66-year-old male who was admitted to the hospital following a fall. He was found to have an L1 burst fracture and is now status post kyphoplasty. -Today's postop day 9 status post kyphoplasty of L1 vertebral body, biopsy of L1 vertebral body. -Pain is under good control. -Repeat lumbar x ray was done, shows post kyphoplasty changes -Appreciate orthospine -Participating in PT -Insurance denied [facility], SW working on SNF (2) Constipation: Plan: Now resolved He will need to be on a bowel regimen even at home he struggles with constipation, moves his bowel every 6-9 days, according to him (3) Hypertension: Plan: Blood pressure stable will continue Amlodipine 10mg daily, Hydralazine PO 10mg TID (4) Diabetes mellitus with diabetic polyneuropathy: Plan: Blood glucose is under good control continue to monitor patient is post left 2nd toe amputation, continue wound care sutures were removed today by Podiatry (5) PAD (peripheral artery disease): Plan: continue ASA and Statin (6) Acute kidney injury superimposed on chronic kidney disease: Plan: resolved (7) Morbid obesity: Plan: patient adviced on diet and excercise (8) CKD (chronic kidney disease): Plan: Avoid nephrotoxics (9) Depression: Plan: continue home meds (10) GERD (gastroesophageal reflux disease): (11) CAD in [place] artery: (12) Dyslipidemia: Plan Medically stable for SNF Admission and Anticipated Discharge Date Admission Date: April 07, 2022 Subjective patient seen and examined, had a bowel movement Review of Systems Review of Systems: All systems reviewed are negative, apart from the ones contained in the history. Physical Exam Physical Exam: The patient is awake, alert and oriented 3, well developed and well nourished, normocephalic and atraumatic, lying in bed and in no acute distress. HEENT--PERRL, EOMI, mucous membranes and oropharynx mildly dry Neck--supple. No JVD. No bruits. Thyroid normal, trachea midline, no adenopathy. Heart--normal S1 and S2. No murmurs, rubs or gallops. Lungs--clear bilaterally, no respiratory distress, no accessory muscle use. Abdomen--normal bowel sounds and soft. Mild epigastric and left sided abdominal pain Extremities--no cyanosis or clubbing. No edema. Dermatologic--normal skin turgor, normal color, no abnormal lymph nodes, no rash. Neurologic--cranial nerves II through XII grossly intact. Rheumatologic--normal range of motion. Psychiatric--normal affect. Results & Data Results & Data ([facility]) Vital Signs (Past 12 Hours) Vital Signs Temp Pulse Pulse Resp BP Pulse Ox O2 Del Method 04/21/22 08:00 76 04/21/22 07:42 97.7 F 68 18 125/93 96 Room Air 04/21/22 03:00 98.2 F 74 17 172/94 H 96 Room Air PG Care Time/CCT Total # of Minutes Spent Total Time Spent with Patient: Total time spent is greater than 50% in coordination of care (as documented) at patient's floor/unit and/or counseling patient: Coding Level of Care Code 47238 SUB INP/OBS CARE 2/35MIN Diagnoses Closed L1 vertebral fracture S32.019A Constipation K59.00 Hypertension I10 Diabetes mellitus with diabetic polyneuropathy E11.42 Diabetes mellitus type: type 2 Diabetes mellitus log scaler insulin use: unspecified log scaler insulin use status PAD (peripheral artery disease) I73.9 Acute kidney injury superimposed on chronic kidney disease N17.9; N18.9 Morbid obesity E66.01 CKD (chronic kidney disease) N18.9 Depression F32.9 GERD (gastroesophageal reflux disease) K21.9 CAD in [place] artery I25.10 Dyslipidemia E78.5 Time Spent (min) 35 (1) Diabetes mellitus with diabetic polyneuropathy Diabetes mellitus type: type 2 Diabetes mellitus usp insulin use: unspecified usp insulin use status Qualified Code(s): E11.42 - Type 2 diabetes mellitus with diabetic polyneuropathy
[2022-04-21] MEDS: SODIUM ZIRCONIUM CYCLOSILICATE 10 GM PACKET PO SCH (11:51)
--- NOTE | 2022-04-21 15:16 | Pharmacy Report ---
Pharmacy Glycemic Short Note 2 - Date of Service April 21, 2022 - Glycemic Short BSG Results (Last 24 hours): 04/20/22 04/20/22 04/21/22 16:27 20:17 07:39 POC Glucose 160 H 158 H 197 H 04/21/22 11:35 POC Glucose 200 H OUTPATIENT ANTIDIABETIC REGIMEN: * Lantus 65 units SQ qAM * Novolog TIDM * metformin 500mg PO BID * Jardiance 25mg PO daily HbA1C: 7.5% (03/06/22) ASSESSMENT: 04/21: * Patient received 7 units of basal and 24 units of bolus insulin yesterday. * Fasting BSGs have been elevated but trends down by the evening. * Added 5 units of basal at HS tonight to improve fasting BSG. Also tightened Novolog parameters this morning. 04/19: * BSGs well controlled with exception of elevated fasting BSG. Will uptitrate basal dose today. 04/17: * BSGs again favorable over last 24 hrs * Basal insulin was added yesterday for elevated fasting AM BSGs. Fasting BSG 165 today with 5 units basal on board. Will continue current basal dose as it is too soon to titrate upwards, and given other BSGs throughout the day are at goal. * Will lessen prandial insulin dose somewhat now that basal on board and following a few BSGs in 80-90s post-prandial over the last 2 days. 04/16: * Fasting BSG trended up again this morning though all BSGs remain below 180. Will add a low dose basal order for this morning. * Continue current novolog scale PLAN FOR INPATIENT GLYCEMIC CONTROL: * Hold outpatient oral diabetes medications * Basal insulin * Lantus 7 units Q AM * Lantus 5 units HS * Bolus insulin * NovoLog per scale ACHS or Q6hrs while NPO * Goal Range: Low 110 mg/dL - High 140 mg/dL * Correction Factor: 25 mg/dL/unit * Nutritional / Prandial insulin per carb ratio of 1 unit per 7 grams CHO consumed
[2022-04-21] MEDS ORDERED: LANTUS PER UNIT CHARGE SQ SCH ×2 (21:00)
[2022-04-21] MEDS: TAMSULOSIN HCL 0.4 MG CAP PO SCH (21:16)
[2022-04-21] MEDS: ATORVASTATIN 10 MG TAB PO SCH (21:16)
[2022-04-22] MEDS: LANTUS PER UNIT CHARGE SQ SCH ×2 (08:33→21:14)
[2022-04-22] MEDS: INSULIN ASPART PER UNIT SC SCH ×4 (08:33→21:14)
[2022-04-22] MEDS: amLODIPine BESYLATE 5 MG TAB PO SCH (08:35)
[2022-04-22] MEDS: PANTOprazole 40 MG TAB PO SCH ×2 (08:35→21:14)
[2022-04-22] MEDS: DULoxetine HCL 20 MG CAP PO SCH ×2 (08:35→21:13)
[2022-04-22] MEDS: SENNA 8.6 MG TAB PO SCH (08:36)
[2022-04-22] MEDS: POLYETHYLENE (MIRALAX) 17 GM PACK PO SCH (08:36)
[2022-04-22] MEDS: FAMOTIDINE 20 MG TAB PO SCH ×2 (08:36→21:13)
[2022-04-22] MEDS: hydrALAZINE 10 MG TAB PO SCH ×3 (08:36→21:14)
[2022-04-22] MEDS: ASPIRIN 81 MG CHEW NG SCH (08:36)
[2022-04-22] MEDS: DOCUSATE SODIUM 100 MG CAP PO SCH ×2 (08:39→21:13)
[2022-04-22] MEDS: bisacodyL 5 MG TABEC PO SCH (08:39)
[2022-04-22] MEDS: ACETAMINOPHEN 325 MG TAB PO PRN ×2 (08:40→15:33)
[2022-04-22] MEDS: SODIUM ZIRCONIUM CYCLOSILICATE 10 GM PACKET PO SCH (12:21)
--- NOTE | 2022-04-22 12:55 | Pharmacy Report ---
Pharmacy Glycemic Short Note 2 - Date of Service April 22, 2022 - Glycemic Short BSG Results (Last 24 hours): 04/21/22 04/21/22 04/22/22 16:16 20:09 07:04 POC Glucose 148 H 142 H 172 H 04/22/22 11:01 POC Glucose 156 H OUTPATIENT ANTIDIABETIC REGIMEN: * Lantus 65 units SQ qAM * Novolog TIDM * metformin 500mg PO BID * Jardiance 25mg PO daily HbA1C: 7.5% (03/06/22) ASSESSMENT: 04/22: * BSGs improving with adjustments to novolog/lantus yesterday * Fasting 172 mg/dL this AM, will slightly increase basal again today as we are still above goal * Prandial BSGs improved, continue current novolog parameters 04/21: * Patient received 7 units of basal and 24 units of bolus insulin yesterday. * Fasting BSGs have been elevated but trends down by the evening. * Added 5 units of basal at HS tonight to improve fasting BSG. Also tightened Novolog parameters this morning. 04/19: * BSGs well controlled with exception of elevated fasting BSG. Will uptitrate basal dose today. 04/17: * BSGs again favorable over last 24 hrs * Basal insulin was added yesterday for elevated fasting AM BSGs. Fasting BSG 165 today with 5 units basal on board. Will continue current basal dose as it is too soon to titrate upwards, and given other BSGs throughout the day are at goal. * Will lessen prandial insulin dose somewhat now that basal on board and following a few BSGs in 80-90s post-prandial over the last 2 days. 04/16: * Fasting BSG trended up again this morning though all BSGs remain below 180. Will add a low dose basal order for this morning. * Continue current novolog scale PLAN FOR INPATIENT GLYCEMIC CONTROL: * Hold outpatient oral diabetes medications * Basal insulin * Lantus 7 units BID * Bolus insulin * NovoLog per scale ACHS or Q6hrs while NPO * Goal Range: Low 110 mg/dL - High 140 mg/dL * Correction Factor: 25 mg/dL/unit * Nutritional / Prandial insulin per carb ratio of 1 unit per 7 grams CHO consumed
--- NOTE | 2022-04-22 15:42 | Hospitalist Progress Note ---
Date of Service April 22, 2022 Assessment & Plan (1) Closed L1 vertebral fracture: Plan: This is a 66-year-old male who was admitted to the hospital following a fall. He was found to have an L1 burst fracture and is now status post kyphoplasty. -Today's postop day 9 status post kyphoplasty of L1 vertebral body, biopsy of L1 vertebral body. -Pain is under good control. -Repeat lumbar x ray was done, shows post kyphoplasty changes -Appreciate orthospine -Participating in PT -Insurance denied [facility], SW working on SNF, approved for tomorrow (2) Constipation: Plan: Now resolved He will need to be on a bowel regimen even at home he struggles with constipation, moves his bowel every 6-9 days, according to him (3) Hypertension: Plan: Blood pressure stable will continue Amlodipine 10mg daily, Hydralazine PO 10mg TID (4) Diabetes mellitus with diabetic polyneuropathy: Plan: Blood glucose is under good control continue to monitor patient is post left 2nd toe amputation, continue wound care sutures were removed today by Podiatry (5) PAD (peripheral artery disease): Plan: continue ASA and Statin (6) Acute kidney injury superimposed on chronic kidney disease: Plan: resolved (7) Morbid obesity: Plan: patient adviced on diet and excercise (8) CKD (chronic kidney disease): Plan: Avoid nephrotoxics (9) Depression: Plan: continue home meds (10) GERD (gastroesophageal reflux disease): (11) CAD in [place] artery: (12) Dyslipidemia: Plan Medically stable for SNF, approved for tomorrow Admission and Anticipated Discharge Date Admission Date: April 07, 2022 Subjective patient seen and examined, had a bowel movement, looking foward to snf tomorrow Review of Systems Review of Systems: All systems reviewed are negative, apart from the ones contained in the history. Physical Exam Physical Exam: The patient is awake, alert and oriented 3, well developed and well nourished, normocephalic and atraumatic, lying in bed and in no acute distress. HEENT--PERRL, EOMI, mucous membranes and oropharynx mildly dry Neck--supple. No JVD. No bruits. Thyroid normal, trachea midline, no adenopathy. Heart--normal S1 and S2. No murmurs, rubs or gallops. Lungs--clear bilaterally, no respiratory distress, no accessory muscle use. Abdomen--normal bowel sounds and soft. Mild epigastric and left sided abdominal pain Extremities--no cyanosis or clubbing. No edema. Dermatologic--normal skin turgor, normal color, no abnormal lymph nodes, no rash. Neurologic--cranial nerves II through XII grossly intact. Rheumatologic--normal range of motion. Psychiatric--normal affect. Results & Data Results & Data ([facility]) Vital Signs (Past 12 Hours) Vital Signs Temp Pulse Pulse Resp BP BP Pulse Ox 04/22/22 15:36 98.1 F 66 18 109/58 L 96 04/22/22 08:00 58 L 04/22/22 11:02 97.7 F 53 L 20 108/75 95 04/22/22 08:00 04/22/22 07:06 97.7 F 60 18 135/73 95 04/22/22 05:02 98.1 F 62 18 140/73 96 O2 Del Method 04/22/22 15:36 Room Air 04/22/22 08:00 04/22/22 11:02 Room Air 04/22/22 08:00 Room Air 04/22/22 07:06 Room Air 04/22/22 05:02 Room Air PG Care Time/CCT Total # of Minutes Spent Total Time Spent with Patient: Total time spent is greater than 50% in coordination of care (as documented) at patient's floor/unit and/or counseling patient: Coding Level of Care Code 52364 SUB INP/OBS CARE 2/35MIN Diagnoses Closed L1 vertebral fracture S32.019A Constipation K59.00 Hypertension I10 Diabetes mellitus with diabetic polyneuropathy E11.42 Diabetes mellitus type: type 2 Diabetes mellitus terminal operator insulin use: unspecified long-term insulin use status PAD (peripheral artery disease) I73.9 Acute kidney injury superimposed on chronic kidney disease N17.9; N18.9 Morbid obesity E66.01 CKD (chronic kidney disease) N18.9 Depression F32.9 GERD (gastroesophageal reflux disease) K21.9 CAD in [place] artery I25.10 Dyslipidemia E78.5 Time Spent (min) 35 (1) Diabetes mellitus with diabetic polyneuropathy Diabetes mellitus type: type 2 Diabetes mellitus long-term insulin use: un specified terminal operator insulin use status Qualified Code(s): E11.42 - Type 2 diabetes mellitus with diabetic polyneuropathy
[2022-04-22] MEDS: ATORVASTATIN 10 MG TAB PO SCH (21:13)
[2022-04-22] MEDS: TAMSULOSIN HCL 0.4 MG CAP PO SCH (21:14)
[2022-04-23] MEDS: INSULIN ASPART PER UNIT SC SCH ×4 (08:14→20:18)
[2022-04-23] MEDS: LANTUS PER UNIT CHARGE SQ SCH ×2 (08:15→20:18)
[2022-04-23] MEDS: ASPIRIN 81 MG CHEW NG SCH (08:19)
[2022-04-23] MEDS: bisacodyL 5 MG TABEC PO SCH (08:19)
[2022-04-23] MEDS: PANTOprazole 40 MG TAB PO SCH ×2 (08:20→20:13)
[2022-04-23] MEDS: hydrALAZINE 10 MG TAB PO SCH ×3 (08:20→20:13)
[2022-04-23] MEDS: SENNA 8.6 MG TAB PO SCH (08:20)
[2022-04-23] MEDS: FAMOTIDINE 20 MG TAB PO SCH ×2 (08:20→20:13)
[2022-04-23] MEDS: amLODIPine BESYLATE 5 MG TAB PO SCH (08:20)
[2022-04-23] MEDS: POLYETHYLENE (MIRALAX) 17 GM PACK PO SCH (08:20)
[2022-04-23] MEDS: DULoxetine HCL 20 MG CAP PO SCH ×2 (08:20→20:13)
[2022-04-23] MEDS: DOCUSATE SODIUM 100 MG CAP PO SCH ×2 (08:24→20:18)
[2022-04-23] MEDS: SODIUM ZIRCONIUM CYCLOSILICATE 10 GM PACKET PO SCH (11:19)
--- NOTE | 2022-04-23 12:08 | Pharmacy Report ---
Pharmacy Glycemic Short Note 2 - Date of Service April 23, 2022 - Glycemic Short BSG Results (Last 24 hours): 04/22/22 04/22/22 04/23/22 16:10 20:19 07:24 POC Glucose 124 H 166 H 183 H 04/23/22 11:22 POC Glucose 220 H OUTPATIENT ANTIDIABETIC REGIMEN: * Lantus 65 units SQ qAM * Novolog TIDM * metformin 500mg PO BID * Jardiance 25mg PO daily HbA1C: 7.5% (03/06/22) ASSESSMENT: 04/23: * Patient received a total of 41 units of insulin yesterday, 14 of which were basal * BSGs were improved yesterday, however fasting and lunchtime BSG elevated today. * Will increase basal dose again today (~22% inc) and tighten novolog scale * Patient continues to tolerate a diet 04/22: * BSGs improving with adjustments to novolog/lantus yesterday * Fasting 172 mg/dL this AM, will slightly increase basal again today as we are still above goal * Prandial BSGs improved, continue current novolog parameters 04/21: * Patient received 7 units of basal and 24 units of bolus insulin yesterday. * Fasting BSGs have been elevated but trends down by the evening. * Added 5 units of basal at HS tonight to improve fasting BSG. Also tightened Novolog parameters this morning. 04/19: * BSGs well controlled with exception of elevated fasting BSG. Will uptitrate basal dose today. 04/17: * BSGs again favorable over last 24 hrs * Basal insulin was added yesterday for elevated fasting AM BSGs. Fasting BSG 165 today with 5 units basal on board. Will continue current basal dose as it is too soon to titrate upwards, and given other BSGs throughout the day are at goal. * Will lessen prandial insulin dose somewhat now that basal on board and following a few BSGs in 80-90s post-prandial over the last 2 days. 04/16: * Fasting BSG trended up again this morning though all BSGs remain below 180. Will add a low dose basal order for this morning. * Continue current novolog scale PLAN FOR INPATIENT GLYCEMIC CONTROL: * Hold outpatient oral diabetes medications * Basal insulin * Lantus 9 units BID * Bolus insulin * NovoLog per scale ACHS or Q6hrs while NPO * Goal Range: Low 110 mg/dL - High 140 mg/dL * Correction Factor: 20 mg/dL/unit * Nutritional / Prandial insulin per carb ratio of 1 unit per 6 grams CHO consumed
--- NOTE | 2022-04-23 14:41 | Hospitalist Progress Note ---
Date of Service April 23, 2022 Assessment & Plan (1) Closed L1 vertebral fracture: Plan: This is a 66-year-old male who was admitted to the hospital following a fall. He was found to have an L1 burst fracture and is now status post kyphoplasty. -Today's postop day 9 status post kyphoplasty of L1 vertebral body, biopsy of L1 vertebral body. -Pain is under good control. -Repeat lumbar x ray was done, shows post kyphoplasty changes -Appreciate orthospine -Participating in PT -Insurance denied [facility], SW working on SNF, (2) Constipation: Plan: Now resolved He will need to be on a bowel regimen even at home he struggles with constipation, moves his bowel every 6-9 days, according to him (3) Hypertension: Plan: Blood pressure stable will continue Amlodipine 10mg daily, Hydralazine PO 10mg TID (4) Diabetes mellitus with diabetic polyneuropathy: Plan: Blood glucose is under good control continue to monitor patient is post left 2nd toe amputation, continue wound care sutures were removed today by Podiatry (5) PAD (peripheral artery disease): Plan: continue ASA and Statin (6) Acute kidney injury superimposed on chronic kidney disease: Plan: resolved (7) Morbid obesity: Plan: patient adviced on diet and excercise (8) CKD (chronic kidney disease): Plan: Avoid nephrotoxics (9) Depression: Plan: continue home meds (10) GERD (gastroesophageal reflux disease): (11) CAD in [place] artery: (12) Dyslipidemia: Plan Medically stable for SNF, approved for tomorrow Admission and Anticipated Discharge Date Admission Date: April 07, 2022 Subjective patient seen and examined, had a bowel movement, looking foward to snf when insurance auth is obtained Review of Systems Review of Systems: All systems reviewed are negative, apart from the ones contained in the history. Physical Exam Physical Exam: The patient is awake, alert and oriented 3, well developed and well nourished, normocephalic and atraumatic, lying in bed and in no acute distress. HEENT--PERRL, EOMI, mucous membranes and oropharynx mildly dry Neck--supple. No JVD. No bruits. Thyroid normal, trachea midline, no adenopathy. Heart--normal S1 and S2. No murmurs, rubs or gallops. Lungs--clear bilaterally, no respiratory distress, no accessory muscle use. Abdomen--normal bowel sounds and soft. Mild epigastric and left sided abdominal pain Extremities--no cyanosis or clubbing. No edema. Dermatologic--normal skin turgor, normal color, no abnormal lymph nodes, no rash. Neurologic--cranial nerves II through XII grossly intact. some coarse tremors Rheumatologic--normal range of motion. Psychiatric--normal affect. Results & Data Results & Data ([facility]) Vital Signs (Past 12 Hours) Vital Signs Temp Pulse Pulse Resp BP Pulse Ox O2 Del Method 04/23/22 12:29 98.1 F 55 L 18 130/67 97 Room Air 04/23/22 09:00 58 L 04/23/22 07:05 127/79 04/23/22 06:59 97.7 F 57 L 20 88/56 L 94 Room Air 04/23/22 03:05 97.5 F L 73 18 134/81 95 Room Air PG Care Time/CCT Total # of Minutes Spent Total Time Spent with Patient: Total time spent is greater than 50% in coordination of care (as documented) at patient's floor/unit and/or counseling patient: Coding Level of Care Code 04708 SUB INP/OBS CARE 2/35MIN Diagnoses Closed L1 vertebral fracture S32.019A Constipation K59.00 Hypertension I10 Diabetes mellitus with diabetic polyneuropathy E11.42 Diabetes mellitus type: type 2 Diabetes mellitus terminal 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
[2022-04-23] MEDS: TAMSULOSIN HCL 0.4 MG CAP PO SCH (20:13)
[2022-04-23] MEDS: ATORVASTATIN 10 MG TAB PO SCH (20:13)
[2022-04-24] MEDS: LANTUS PER UNIT CHARGE SQ SCH ×2 (08:35→21:07)
[2022-04-24] MEDS: INSULIN ASPART PER UNIT SC SCH ×4 (08:35→21:07)
[2022-04-24] MEDS: FAMOTIDINE 20 MG TAB PO SCH ×2 (08:55→20:43)
[2022-04-24] MEDS: PANTOprazole 40 MG TAB PO SCH ×2 (08:55→20:43)
[2022-04-24] MEDS: POLYETHYLENE (MIRALAX) 17 GM PACK PO SCH (08:56)
[2022-04-24] MEDS: hydrALAZINE 10 MG TAB PO SCH ×3 (08:56→20:43)
[2022-04-24] MEDS: DULoxetine HCL 20 MG CAP PO SCH ×2 (08:56→20:43)
[2022-04-24] MEDS: ASPIRIN 81 MG CHEW NG SCH (08:56)
[2022-04-24] MEDS: SENNA 8.6 MG TAB PO SCH (08:56)
[2022-04-24] MEDS: amLODIPine BESYLATE 5 MG TAB PO SCH (08:56)
[2022-04-24] MEDS: DOCUSATE SODIUM 100 MG CAP PO SCH ×2 (08:59→20:43)
[2022-04-24] MEDS: bisacodyL 5 MG TABEC PO SCH (08:59)
--- NOTE | 2022-04-24 11:05 | Hospitalist Progress Note ---
Date of Service April 24, 2022 Assessment & Plan (1) Closed L1 vertebral fracture: Plan: This is a 66-year-old male who was admitted to the hospital following a fall. He was found to have an L1 burst fracture and is now status post kyphoplasty. -Today's postop day 9 status post kyphoplasty of L1 vertebral body, biopsy of L1 vertebral body. -Pain is under good control. -Repeat lumbar x ray was done, shows post kyphoplasty changes -Appreciate orthospine -Participating in PT -Insurance denied [facility], SW working on SNF, (2) Constipation: Plan: Now resolved He will need to be on a bowel regimen even at home he struggles with constipation, moves his bowel every 6-9 days, according to him continue daily miralax (3) Hypertension: Plan: Blood pressure stable will continue Amlodipine 10mg daily, Hydralazine PO 10mg TID (4) Diabetes mellitus with diabetic polyneuropathy: Plan: Blood glucose is under good control continue to monitor patient is post left 2nd toe amputation, continue wound care sutures were removed today by Podiatry (5) PAD (peripheral artery disease): Plan: continue ASA and Statin (6) Acute kidney injury superimposed on chronic kidney disease: Plan: resolved (7) Morbid obesity: Plan: patient adviced on diet and excercise (8) CKD (chronic kidney disease): Plan: Avoid nephrotoxics (9) Depression: Plan: continue home meds (10) GERD (gastroesophageal reflux disease): (11) CAD in [place] artery: (12) Dyslipidemia: Plan Medically stable for SNF, insurance denied however, medical insurance review pending Admission and Anticipated Discharge Date Admission Date: April 07, 2022 Subjective patient seen and examined, his insurance denied SNF authorization Review of Systems Review of Systems: All systems reviewed are negative, apart from the ones contained in the history. Physical Exam Physical Exam: The patient is awake, alert and oriented 3, well developed and well nourished, normocephalic and atraumatic, lying in bed and in no acute distress. HEENT--PERRL, EOMI, mucous membranes and oropharynx mildly dry Neck--supple. No JVD. No bruits. Thyroid normal, trachea midline, no adenopathy. Heart--normal S1 and S2. No murmurs, rubs or gallops. Lungs--clear bilaterally, no respiratory distress, no accessory muscle use. Abdomen--normal bowel sounds and soft. Mild epigastric and left sided abdominal pain Extremities--no cyanosis or clubbing. No edema. Dermatologic--normal skin turgor, normal color, no abnormal lymph nodes, no rash. Neurologic--cranial nerves II through XII grossly intact. some coarse tremors Rheumatologic--normal range of motion. Psychiatric--normal affect. Results & Data Results & Data ([facility]) Vital Signs (Past 12 Hours) Vital Signs Temp Pulse Pulse Resp BP Pulse Ox O2 Del Method 04/24/22 09:00 Room Air 04/24/22 09:00 58 L 04/24/22 08:47 97.9 F 60 15 130/80 96 Room Air 04/24/22 02:48 97.5 F L 63 18 133/88 94 Room Air 04/23/22 23:19 97.9 F 61 18 159/84 H 97 Room Air PG Care Time/CCT Total # of Minutes Spent Total Time Spent with Patient: Total time spent is greater than 50% in coordination of care (as documented) at patient's floor/unit and/or counseling patient: Coding Level of Care Code 41416 SUB INP/OBS CARE 2/35MIN Diagnoses Closed L1 vertebral fracture S32.019A Constipation K59.00 Hypertension I10 Diabetes mellitus with diabetic polyneuropathy E11.42 Diabetes mellitus type: type 2 Diabetes mellitus chcf insulin use: unspecified chcf insulin use status PAD (peripheral artery disease) I73.9 Acute kidney injury superimposed on chronic kidney disease N17.9; N18.9 Morbid obesity E66.01 CKD (chronic kidney disease) N18.9 Depression F32.9 GERD (gastroesophageal reflux disease) K21.9 CAD in [place] artery I25.10 Dyslipidemia E78.5 Time Spent (min) 35 (1) Diabetes mellitus with diabetic polyneuropathy Diabetes mellitus type: type 2 Diabetes mellitus 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
[2022-04-24] MEDS: SODIUM ZIRCONIUM CYCLOSILICATE 10 GM PACKET PO SCH (12:20)
[2022-04-24] MEDS: ATORVASTATIN 10 MG TAB PO SCH (20:43)
[2022-04-24] MEDS: TAMSULOSIN HCL 0.4 MG CAP PO SCH (20:43)
[2022-04-25 07:24] LABS: Hematocrit (blood only) 34.3 % (40.1-51.0); Hemoglobin 11.5 g/dl (14.0-18.0); Mean Corpuscular Hemoglobin 27.8 pg (25.0-34.0); Mean Corpuscular Hgb Conc 33.5 g/dL (32.0-36.0); Mean Corpuscular Volume 82.9 fL (80.0-100.0); Mean Platelet Volume 9.4 fL (9.4-12.4); Platelet Count 150 K/uL (130-400); RDW Coefficient of Variation 13.9 % (11.5-14.5); RDW Standard Deviation 41.1 fL (36.4-46.3); Red Blood Count 4.14 M/uL (4.63-6.08); White Blood Count 5.01 K/ul (4.8-10.8)
[2022-04-25 07:40] LABS: Calcium 8.9 mg/dl (8.5-10.1); Potassium 4.5 mmol/L (3.5-5.1)
[2022-04-25 07:46] LABS: BUN Creatinine Ratio 17.7 (10-20); Creatinine Clr Calc Pharmacy 70.6 ml/min; Est GFR (African American) 56.8 ml/min
[2022-04-25] MEDS: INSULIN ASPART PER UNIT SC SCH ×3 (08:57→16:46)
[2022-04-25] MEDS: LANTUS PER UNIT CHARGE SQ SCH (08:58)
[2022-04-25] MEDS: DOCUSATE SODIUM 100 MG CAP PO SCH (08:58)
[2022-04-25] MEDS: PANTOprazole 40 MG TAB PO SCH (08:58)
[2022-04-25] MEDS: FAMOTIDINE 20 MG TAB PO SCH (08:58)
[2022-04-25] MEDS: ASPIRIN 81 MG CHEW NG SCH (08:58)
[2022-04-25] MEDS: DULoxetine HCL 20 MG CAP PO SCH (08:58)
[2022-04-25] MEDS: amLODIPine BESYLATE 5 MG TAB PO SCH (08:58)
[2022-04-25] MEDS: hydrALAZINE 10 MG TAB PO SCH ×2 (08:58→13:05)
[2022-04-25] MEDS: SENNA 8.6 MG TAB PO SCH (08:59)
[2022-04-25] MEDS: POLYETHYLENE (MIRALAX) 17 GM PACK PO SCH (08:59)
--- NOTE | 2022-04-25 10:49 | Hospitalist Progress Note ---
Date of Service April 25, 2022 Assessment & Plan (1) Closed L1 vertebral fracture: Plan: This is a 66-year-old male who was admitted to the hospital following a fall. He was found to have an L1 burst fracture and is now status post kyphoplasty. -Today's postop day 9 status post kyphoplasty of L1 vertebral body, biopsy of L1 vertebral body. -Pain is under good control. -Repeat lumbar x ray was done, shows post kyphoplasty changes -Appreciate orthospine -Participating in PT -Insurance denied [facility], SNF denied, even after P2P -Plan is home with home health and PT (2) Constipation: Plan: Now resolved He will need to be on a bowel regimen even at home he struggles with constipation, moves his bowel every 6-9 days, according to him continue daily miralax (3) Hypertension: Plan: Blood pressure stable will continue Amlodipine 10mg daily, Hydralazine PO 10mg TID (4) Diabetes mellitus with diabetic polyneuropathy: Plan: Blood glucose is under good control continue to monitor patient is post left 2nd toe amputation, continue wound care sutures were removed today by Podiatry (5) PAD (peripheral artery disease): Plan: continue ASA and Statin (6) Acute kidney injury superimposed on chronic kidney disease: Plan: resolved (7) Morbid obesity: Plan: patient adviced on diet and excercise (8) CKD (chronic kidney disease): Plan: Avoid nephrotoxics (9) Depression: Plan: continue home meds (10) GERD (gastroesophageal reflux disease): (11) CAD in [place] artery: (12) Dyslipidemia: Plan Medically stable for SNF, insurance denied however, plan is home with home health and PT Admission and Anticipated Discharge Date Admission Date: April 07, 2022 Subjective patient seen and examined, his insurance denied SNF authorization, even after P2P Review of Systems Review of Systems: All systems reviewed are negative, apart from the ones contained in the history. Physical Exam Physical Exam: The patient is awake, alert and oriented 3, well developed and well nourished, normocephalic and atraumatic, lying in bed and in no acute distress. HEENT--PERRL, EOMI, mucous membranes and oropharynx mildly dry Neck--supple. No JVD. No bruits. Thyroid normal, trachea midline, no adenopathy. Heart--normal S1 and S2. No murmurs, rubs or gallops. Lungs--clear bilaterally, no respiratory distress, no accessory muscle use. Abdomen--normal bowel sounds and soft. Mild epigastric and left sided abdominal pain Extremities--no cyanosis or clubbing. No edema. Dermatologic--normal skin turgor, normal color, no abnormal lymph nodes, no rash. Neurologic--cranial nerves II through XII grossly intact. some coarse tremors Rheumatologic--normal range of motion. Psychiatric--normal affect. Results & Data Results & Data ([facility]) Vital Signs (Past 12 Hours) Vital Signs Temp Pulse Resp BP BP Pulse Ox O2 Del Method 04/25/22 08:39 97.3 F L 56 L 20 112/66 97 Room Air 04/25/22 03:53 97.3 F L 80 20 138/79 95 Room Air 04/24/22 23:02 98.8 F 66 19 156/82 H 95 Room Air O2 Flow Rate 04/25/22 08:39 21 04/25/22 03:53 04/24/22 23:02 PG Care Time/CCT Total # of Minutes Spent Total Time Spent with Patient: Total time spent is greater than 50% in coordination of care (as documented) at patient's floor/unit and/or counseling patient: Coding Level of Care Code 18345 SUB INP/OBS CARE 2/35MIN Diagnoses Closed L1 vertebral fracture S32.019A Constipation K59.00 Hypertension I10 Diabetes mellitus with diabetic polyneuropathy E11.42 Diabetes mellitus type: type 2 Diabetes mellitus technical research scientist insulin use: unspecified technical research scientist insulin use status PAD (peripheral artery disease) I73.9 Acute kidney injury superimposed on chronic kidney disease N17.9; N18.9 Morbid obesity E66.01 CKD (chronic kidney disease) N18.9 Depression F32.9 GERD (gastroesophageal reflux disease) K21.9 CAD in [place] artery I25.10 Dyslipidemia E78.5 Time Spent (min) 35 (1) Diabetes mellitus with diabetic polyneuropathy Diabetes mellitus type: type 2 Diabetes mellitus technical research scientist insulin use: unspecified technical research scientist insulin use status Qualified Code(s): E11.42 - Type 2 diabetes mellitus with diabetic polyneuropathy
[2022-04-25] MEDS: SODIUM ZIRCONIUM CYCLOSILICATE 10 GM PACKET PO SCH (10:52)
--- NOTE | 2022-04-25 13:57 | Pharmacy Report ---
Pharmacy Glycemic Short Note 2 - Date of Service April 25, 2022 - Glycemic Short BSG Results (Last 24 hours): 04/24/22 04/24/22 04/25/22 16:06 19:42 06:46 Glucose 163 H POC Glucose 103 H 167 H 04/25/22 04/25/22 07:29 11:33 Glucose POC Glucose 181 H 131 H OUTPATIENT ANTIDIABETIC REGIMEN: * Lantus 65 units SQ qAM * Novolog TIDM * metformin 500mg PO BID * Jardiance 25mg PO daily HbA1C: 7.5% (03/06/22) ASSESSMENT: 04/25: * Fasting 181 mg/dL, will increase basal to 15 units BID starting tonight * Continue current Novolog parameters as prandial BSGs within goal 04/23: * Patient received a total of 41 units of insulin yesterday, 14 of which were basal * BSGs were improved yesterday, however fasting and lunchtime BSG elevated today. * Will increase basal dose again today (~22% inc) and tighten novolog scale * Patient continues to tolerate a diet 04/22: * BSGs improving with adjustments to novolog/lantus yesterday * Fasting 172 mg/dL this AM, will slightly increase basal again today as we are still above goal * Prandial BSGs improved, continue current novolog parameters 04/21: * Patient received 7 units of basal and 24 units of bolus insulin yesterday. * Fasting BSGs have been elevated but trends down by the evening. * Added 5 units of basal at HS tonight to improve fasting BSG. Also tightened Novolog parameters this morning. 04/19: * BSGs well controlled with exception of elevated fasting BSG. Will uptitrate basal dose today. 04/17: * BSGs again favorable over last 24 hrs * Basal insulin was added yesterday for elevated fasting AM BSGs. Fasting BSG 165 today with 5 units basal on board. Will continue current basal dose as it is too soon to titrate upwards, and given other BSGs throughout the day are at goal. * Will lessen prandial insulin dose somewhat now that basal on board and following a few BSGs in 80-90s post-prandial over the last 2 days. 04/16: * Fasting BSG trended up again this morning though all BSGs remain below 180. Will add a low dose basal order for this morning. * Continue current novolog scale PLAN FOR INPATIENT GLYCEMIC CONTROL: * Hold outpatient oral diabetes medications * Basal insulin * Lantus 12 units this morning, then 15 units BID starting tonight * Bolus insulin * NovoLog per scale ACHS or Q6hrs while NPO * Goal Range: Low 110 mg/dL - High 140 mg/dL * Correction Factor: 20 mg/dL/unit * Nutritional / Prandial insulin per carb ratio of 1 unit per 6 grams CHO consumed
--- NOTE | 2022-04-25 15:21 | Discharge Summary ---
Date of Service April 25, 2022 Admission HPI Per Admitting Provider Enrique Alvarado is a 66yo male with history of DM, CAD, HTN and HLP presenting with intractable back pain requiring IV Morphine. Patient fell 5 days ago. He reports he was going to the bathroom when he fell and landed on his buttock. He does not think that he passed out, is unsure if he tripped. He had immediate pain in his back. His pain has been persistent over the last 5 days. He has been unable to get up from bed. He has not been eating well or taking his medications and has had some ongoing nausea and vomiting. Today he tried to get out of bed and walk down the stairs and his pain was so intense that he requested that his family bring him to the ER. He denies focal numbness or weakness. Denies changes in bowel or bladder function. CT obtained in the ER revealed an L1 burst fracture with some anterior displacement of fragments, no retropulsion. In the ER patient had significant pain. He was administered Morphine 4mg IV x 2 doses with improvement in pain. ER Course: Morphine 4mg IV x 2, NSS Principal Diagnosis L1 fracture Discharge Exam The patient is awake, alert and oriented 3, well developed and well nourished, normocephalic and atraumatic, lying in bed and in no acute distress. HEENT--PERRL, EOMI, mucous membranes and oropharynx mildly dry Neck--supple. No JVD. No bruits. Thyroid normal, trachea midline, no adenopathy. Heart--normal S1 and S2. No murmurs, rubs or gallops. Lungs--clear bilaterally, no respiratory distress, no accessory muscle use. Abdomen--normal bowel sounds and soft. Mild epigastric and left sided abdominal pain Extremities--no cyanosis or clubbing. No edema. Dermatologic--normal skin turgor, normal color, no abnormal lymph nodes, no rash . Neurologic--cranial nerves II through XII grossly intact. some coarse tremors Rheumatologic--normal range of motion. Psychiatric--normal affect. Discharge Data Allergies Allergy/AdvReac Type Severity Reaction Status Date / Time No Known Allergies Allergy Verified 04/06/22 20:22 Consultations 04/06/22 23:50 Consult Orthopedic Surgery Routine 04/06/22 23:57 ED Decision to Admit Stat 04/07/22 14:32 Consult Cardiology Routine Procedures Performed Operation Date: 04/08/22 07:00 Actual Procedures p L1 Kyphoplasty(Not Applicable) - Kd Valdez, Ordered Studies 04/06/22 20:30 CT abd pelvis IV con only Stat 04/08/22 13:00 FL kyphoplasty any level Routine Hospital Course (1) Closed L1 vertebral fracture: This is a 66-year-old male who was admitted to the hospital following a fall. He was found to have an L1 burst fracture and is now status post kyphoplasty. -Today's postop day 9 status post kyphoplasty of L1 vertebral body, biopsy of L1 vertebral body. -Pain is under good control. -Repeat lumbar x ray was done, shows post kyphoplasty changes -Appreciate orthospine -Participating in PT -Insurance denied [facility], SNF denied, even after P2P -Plan is home with home health and PT (2) Constipation: Now resolved He will need to be on a bowel regimen even at home he struggles with constipation, moves his bowel every 6-9 days, according to him continue daily miralax (3) Hypertension: Blood pressure stable will continue Amlodipine 10mg daily, Hydralazine PO 10mg TID (4) Diabetes mellitus with diabetic polyneuropathy: Blood glucose is under good control continue to monitor patient is post left 2nd toe amputation, continue wound care sutures were removed today by Podiatry (5) PAD (peripheral artery disease): continue ASA and Statin (6) Acute kidney injury superimposed on chronic kidney disease: resolved (7) Morbid obesity: patient adviced on diet and excercise (8) CKD (chronic kidney disease): Avoid nephrotoxics (9) Depression: continue home meds (10) GERD (gastroesophageal reflux disease): (11) CAD in [place] artery: (12) Dyslipidemia: Plan Medically stable for SNF, insurance denied however, plan is home with home health and PT Total Time Total Time Spent Total Time Spent (In Minutes): 35 Discharge Plan Discharge Items Patient Disposition: Home - Home Health Services Reason For Visit: FALL, L1 BURST FRACTURE Discharge Diagnosis: L1 Burst fracture s/p kyphoplasty Activity: Per Instructions section Lifting: No more than 5 pounds Bathing: No limitations Non-emergency contact: Primary Care Provider and Surgeon Call non-emergency contact if: you have any medication questions and your symptoms worsen Follow-up/Referrals: Dora Sales MD [Primary Care Provider] - Diet: Regular Addtl Attending Provider Instructions: please make appointment to follow up with your regular PCP and ortho surgeon. Also follow up with podiatry Pending Studies at Discharge: No Stand-Alone Forms: My [facility], Smoking Cessation Medications and DC Order Prescriptions: New polyethylene glycol 3350 [Miralax] 17 gram Powder In Packet 17 g PO DAILY 10 Days Qty: 10 0RF Continued aspirin 81 mg tablet,chewable 81 mg PO QAM (DME) FreeStyle Remigio 2 Cary Misc See Rx Instructions .Route Qty: 1 0RF Rx Instructions: Use to monitor blood sugars daily (DME) FreeStyle Remigio 2 Sensor Kit See Rx Instructions .Route Qty: 7 3RF Rx Instructions: Change sensor every 14 days (DME) Accu-Chek Guide test strips Strip See Rx Instructions .ROUTE .MEDSUPPLY Qty: 50 3RF Rx Instructions: test blood sugar 1 x daily duloxetine [Cymbalta] 20 mg capsule,delayed release(DR/EC) 20 mg PO BID Qty: 180 2RF Basaglar KwikPen U-100 Insulin 100 unit/mL (3 mL) insulin pen 65 unit SQ QAM 90 Days Qty: 60 3RF Lokelma 5 gram powder in packet 5 g PO DAILY Qty: 30 2RF Label Comments: doesn't always take it every day metformin 500 mg tablet 500 mg PO BID 90 Days Qty: 180 3RF (DME) lancets [Accu-Chek Fastclix Lancet Drum] Misc See Rx Instructions .ROUTE .MEDSUPPLY Rx Instructions: test blood sugar 1 x daily Novolog FlexPen U-100 Insulin 100 unit/mL (3 mL) insulin pen 80 unit SQ TID Rx Instructions: with meals mecobalamin (vitamin B12) 1,000 mcg lozenge 1,000 mcg PO QAM Rx Instructions: allow to dissolve in mouth OR may chew lightly before swallowing famotidine [Pepcid AC] 20 mg tablet 20 mg PO BID Qty: 30 0RF alum-mag hydroxide-simeth [Mylanta Maximum Strength] 400-400-40 mg/5 mL suspension 10 ml PO TID Qty: 355 0RF atorvastatin [Lipitor] 10 mg tablet 10 mg PO HS Jardiance 25 mg tablet 25 mg PO QAM pantoprazole [Protonix] 40 mg tablet,delayed release (DR/EC) 40 mg PO BID furosemide [Lasix] 20 mg tablet 20 mg PO QAM tamsulosin 0.4 mg capsule 0.4 mg PO HS ergocalciferol (vitamin D2) 1,250 mcg (50,000 unit) capsule 1,250 mcg PO Q7D Probiotic 10 billion cell Capsule 10,000 mmu cells PO BID (DME) pen needle, diabetic [BD Ultra-Fine Mini Pen Needle] 31 gauge x 3/16" needle .ROUTE .MEDSUPPLY Rx Instructions: use 4 needles daily Discharge Orders: Discharge Order (Routine); Ordered 04/25/22 Ordered By: Rupal Kumar Admission Data Admit Date/Time: 04/07/22 00:27 Attending Provider: Rupal Kumar Admit Provider: Dorene Ceja Primary Care Provider: Dora Sales Other Providers: Kd Valdez ; Dorene Ceja ; Devang Franco ; [facility] ; [place] ; [facility] Coding Level of Care Code HOSP INP/OBS DISCH >30 MIN Diagnoses Closed L1 vertebral fracture S32.019A Constipation K59.00 Hypertension I10 Diabetes mellitus with diabetic polyneuropathy E11.42 Diabetes mellitus type: type 2 Diabetes mellitus usp insulin use: unspecified usp insulin use status PAD (peripheral artery disease) I73.9 Acute kidney injury superimposed on chronic kidney disease N17.9; N18.9 Morbid obesity E66.01 CKD (chronic kidney disease) N18.9 Depression F32.9 GERD (gastroesophageal reflux disease) K21.9 CAD in [place] artery I25.10 Dyslipidemia E78.5 Time Spent (min) 35
[2022-04-25] MEDS ORDERED: LANTUS PER UNIT CHARGE SQ SCH (21:00)
== END 2022-04-25 17:18 | disposition home health service (06) | DRG 478 ==
LOC: ED 19:51 → SUATTDRO 04-07 00:27 → 3E 04-07 00:27 → 2E 04-08 18:43
DX: I12.9 Hypertensive chronic kidney disease with stage 1 through stage 4 chronic kidney disease, or unspecified chronic kidney disease; Z79.82 Long term (current) use of aspirin; E66.01 Morbid (severe) obesity due to excess calories; Z79.899 Other long term (current) drug therapy; K59.00 Constipation, unspecified; F32.A Depression, unspecified; E11.42 Type 2 diabetes mellitus with diabetic polyneuropathy; K56.7 Ileus, unspecified; E11.51 Type 2 diabetes mellitus with diabetic peripheral angiopathy without gangrene; E78.5 Hyperlipidemia, unspecified; N17.9 Acute kidney failure, unspecified; I25.10 Atherosclerotic heart disease of native coronary artery without angina pectoris; Z87.891 Personal history of nicotine dependence; Z68.42 Body mass index [BMI] 45.0-49.9, adult; Y92.002 Bathroom of unspecified non-institutional (private) residence as the place of occurrence of the external cause; W19.XXXA Unspecified fall, initial encounter; Z79.4 Long term (current) use of insulin; Z79.84 Long term (current) use of oral hypoglycemic drugs; K21.9 Gastro-esophageal reflux disease without esophagitis; N18.9 Chronic kidney disease, unspecified; S32.001A Stable burst fracture of unspecified lumbar vertebra, initial encounter for closed fracture

== ENCOUNTER 2023-03-02 18:25 | Observation (INO) ==
--- OUTSIDE RECORDS SUMMARY | 2023-03-02 18:29 | External Medical Summary | Continuity of Care Document ---
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 Name Role Phone Dora Sales Primary Care Physician [phone] [id number] Date(s): 01/17/23 - 01/17/23 [facility] [place] [id number] [address] [place] [id number] Encounter Diagnosis Diabetic ulcer of left foot with fat layer exposed(Discharge Diagnosis) - 01/17/23 Callus(Discharge Diagnosis) - 01/17/23 Diabetes(Discharge Diagnosis) - 10/15/22 Neuropathy(Discharge Diagnosis) - 10/15/22 Toe amputee(Discharge Diagnosis) - 10/15/22 Tinea unguium(Discharge Diagnosis) - 10/15/22 Discharge Disposition: Home or Self Care Attending Physician: NATHAN Disla Christina L Allergies, Adverse Reactions, Alerts Substance Reaction Severity Status PCN (penicillin) unknown Mild Active Assessment and Plan Extracted from: Title:Follow Up Visit Author:NATHAN Disla, Yoni Lu Date:01/17/23 1.Diabetes 2.Neuropathy 3.Toe amputee 4.Tinea unguium -Patient unable to provide self care to toenails due todiabetes - verbal consent obtained for debridement -Recommend toenail debridement -Patient had toenails of digits 1, 3, 5 right foot and digits 3 through 5 left foot debrided using nail nippers to tolerance, no bleeding noted -Patient instructed to use emery board to nails once per week -Patient had no ingrown toenails or infection noted -Patient is to follow up in 2-3 months for treatment if needed in the future 5.Diabetic ulcer of left foot with fat layer exposed Continue dressings per wound care center 6.Callus Area debrided with #15 blade to tolerance, no bleeding or cellulitis noted verbal consent obtained for debridement Recommend moisturizing lotion to feet daily Recommend offloading pads over the area for pressure relief Medications amLODIPine 5 mg oral tablet Start: 12/12/21 10:26:00 EDT Start Date: 12/12/21 Status: Ordered Aranesp SingleJect 60 mcg/0.3 mL injectable solution Start: 12/12/21 10:26:00 EDT Start Date: 12/12/21 Status: Ordered atorvastatin 10 mg oral tablet Start: 05/02/20 14:07:00 EST Start Date: 05/02/20 Status: Ordered Basaglar KwikPen 100 units/mL subcutaneous solution Start: 12/12/21 10:26:00 EDT Start Date: 12/12/21 Status: Ordered DAPTOmycin Start: 11/20/21 12:59:00 EDT Start Date: 11/20/21 Status: Ordered doxycycline hyclate 100 mg oral capsule Start: 03/07/22 11:00:00 EST Start Date: 03/07/22 Status: Ordered DULoxetine 20 mg oral delayed release capsule Start: 05/02/20 14:07:00 EST Start Date: 05/02/20 Status: Ordered furosemide 20 mg oral tablet Start: 05/02/20 14:07:00 EST Start Date: 05/02/20 Status: Ordered Jardiance 25 mg oral tablet Start: 12/12/21 10:26:00 EDT Start Date: 12/12/21 Status: Ordered lisinopril 20 mg oral tablet Start: 05/02/20 14:07:00 EST, 2 Start Date: 05/02/20 Status: Ordered Lokelma Start: 09/13/21 13:32:00 EDT Start Date: 09/13/21 Status: Ordered MiraLax Start: 05/06/22 11:27:00 EST Start Date: 05/06/22 Status: Ordered NovoLOG FlexPen 100 units/mL injectable solution Start: 12/12/21 10:26:00 EDT Start Date: 12/12/21 Status: Ordered pantoprazole 40 mg oral delayed release tablet Start: 05/02/20 14:07:00 EST Start Date: 1/26/21 Status: Ordered tamsulosin 0.4 mg oral capsule Start: 12/12/21 10:26:00 EDT Start Date: 12/12/21 Status: Ordered Tylenol Extra Strength Start: 05/06/22 11:26:00 EST Start Date: 05/06/22 Status: Ordered Mental Status 01/17/23 Barriers to Learning one year None evide nt Mandatory Health Literacy Documentation Yes Health Literacy Communication Barriers N ever Primary Language [place] Problem List Condition Confirmation Course Effective Dates Status Health St atus Informant Toe amputee Confirmed Active Blister of left great toe Confirmed Active Callus Confirmed Active Diabetes Confirmed Active S/P foot surgery, left Confirmed Active Neuropathy Confirmed Active Non compliance w medication regimen Confirmed Active Tinea unguium Confirmed Active Peripheral vascular disease Confirmed Active Diabetic ulcer of toe of left foot Confirmed Active Diabetic ulcer of left foot with fat layer exposed Confirmed Active Diagnosis Diagnosis Type Effective Dates Health Status Clinical Service Informant Diabetes Discharge Diagnosis 10/15/22 Neuropathy Discharge Diagnosis 10/15/22 Toe amputee Discharge Diagnosis 10/15/22 Tinea unguium Discharge Diagnosis 10/15/22 Callus Discharge Diagnosis 01/17/23 Diabetic ulcer of left foot with fat layer exposed Discharge Diagnosis 01/17/23 Vital Signs Most recent to oldest [Reference Range]: 1 Height 179.2 cm (01/17/23 3:44 PM) Patient Weight 152.8 kg (01/17/23 3:44 PM) Body Mass Index 47.58 kg/m2 (01/17/23 3:44 PM) Social History Social History Type Response Smoking Status Never smoked cigaret rom Sex Male Ortho Outpt Note * NATHAN Disla, Kristy Lu: PERFORM Event Display: Ortho Outpt Note Authored Date: [id number] Chief Complaint nail care Primary Care Provider MD Henrry, Dora Hightower Subjective Patient is a very pleasant 66-year-old male presenting today for care of his feethigh risk diabetic history of left hallux amputation and left second toe amputationlast seen July 17, 2022. -Patient has been seeing the wound care centerdue to a new ulcer on the plantar aspect of the left foot submetatarsal 5. It is stable today dressings removed and evaluated but for the most part this is cared for by the wound care center. There is no cellulitis or infection present. Review of Systems Diabetes and PVDrecent cardiopulmonary arrest Objective Vitals & Measurements WT:152.8kg WT:152.800kg(Dosing) Physical Exam Problem focused bilateral feet: Dorsalis pedis pulse was very difficult to palpate this may be secondary to swelling tibial pulse difficult to palpate secondary to swelling+2 pitting edema bilateral legswith stable abrasions onanterior shins Decreased light touch monofilament test decreased to distal extremitieshistory of diabetic neuropathypatient cleared by both vascular surgery and cardiology standpoints for healing. Status post left halluxamputation well-healed Status post left foot second toe amputation incision well-healed no need for further dressings. Callus present distal aspect right great toe recommended Left foot diabetic ulcer cared for at wound care center clinical photo in chart no cellulitis measures 1 cm in width by 0.7 cm in lengthvirtually no depth fully granular wound base Toenails of digits 1, 3, 5 right foot and digits3 through5 left footwith dystrophy, thickening greater than 1 mm, elongation, subungual debris and pain recommend debridement X-ray dictation 3 views left foot: Taken at May 06, 2022 visit Images 2023-01-17 15:50:20 2023-01-17 15:50:27 2023-01-17 15:50:33 2023-01-17 15:50:39 Assessment/Plan 1.Diabetes 2.Neuropathy 3.Toe amputee 4.Tinea unguium -Patient unable to provide self care to toenails due todiabetes - verbal consent obtained for debridement -Recommend toenail debridement -Patient had toenails of digits 1, 3, 5 right foot and digits 3 through 5 left foot debrided using nail nippers to tolerance, no bleeding noted -Patient instructed to use emery board to nails once per week -Patient had no ingrown toenails or infection noted -Patient is to follow up in 2-3 months for treatment if needed in the future 5.Diabetic ulcer of left foot with fat layer exposed Continue dressings per wound care center 6.Callus Area debrided with #15 blade to tolerance, no bleeding or cellulitis noted verbal consent obtained for debridement Recommend moisturizing lotion to feet daily Recommend offloading pads over the area for pressure relief Electronic Signature on File Electronically Reviewed/Signed by: Kristy Disla DPM Author Signature Dt/Tm:01/17/2023 03:55 PM Division of Sports Medicine CLR * NATHAN Disla Christina L: PERFORM Event Display: Ortho Outpt Note Authored Date: Name:RICCI BEAR Patient Number:[id number] :1955 Date of Service:10/15/2022 Patient was a no-show today. Electronic Signature on File Electronically Reviewed/Signed by: Kristy Disla DPM Author Signature Dt/Tm:10/15/2022 04:20 PM Division of Sports Medicine CLR Patient Care team information Care Team Personnel Name: MD Henrry, Dora Hightower Position: Referring Member Role: Primary Care Provider Address: Address: [address] [place] [address] Name: NATHAN Disla Christina L Position: Physician - Podiatry Member Role: Lifetime Relationship Address: Address: [address] [facility] [address] [place] [address] [place] Care Team Related Persons Name: EDITA BEAR Address: home [address] [place] [id number] Name: EDITA BEAR Address: home [address] [place] [id number]
--- NOTE | 2023-03-02 18:35 | ED Triage Note ---
Date of Service March 02, 2023 History of Present Illness This patient was briefly evaluated while in triage. An abbreviated physical exam was performed. This patient is a 67-year-old Male who presents to the ED for evaluation of sore throat cough congestion. Not eating much or drinking a whole lot today. Has some chest pain, worse with coughing, feels a bit more short of breath than normal. Physical Exam CONSTITUTIONAL: mildly uncomfortable SKIN: pink, warm, dry CARDIAC: regular rate and rhythm RESPIRATORY: mildly tachypneic, diffuse rhonchi Initial orders for labs and / or imaging were placed and patient was placed into a room. Please see further documentation for the full ED course.
--- NOTE | 2023-03-02 18:47 | XRay Report ---
XR chest 1V portable CLINICAL HISTORY: cough TECHNIQUE: Single frontal radiograph of the chest was obtained. Comparison: Comparison is made to chest radiograph 04/09/2022 FINDINGS: No lines and tubes are seen. Cardiomegaly is noted. The aortic arch is calcified. The lungs are clear . No evidence of pleural effusion or pneumothorax. IMPRESSION: No acute abnormalities and in particular no radiographic evidence of pneumonia. ACT 112: Negative or not required by law. Electronically signed by: Rod Hoyt M.D. 03/02/2023 6:45 PM
--- NOTE | 2023-03-02 19:05 | Emergency Department Note ---
Impression & Plan Acute kidney injury superimposed on chronic kidney disease, Acute hyperkalemia, Shortness of breath ED Provider Note HISTORY OF PRESENT ILLNESS: Patient is a 67-year-old male presenting with cough, shortness of breath and sore throat. Patient reports that for the last 4 days he has been having a cough productive of green-yellow sputum. He states his throat has also been sore and he has had a generalized headache. He reports he has chest pain when he is coughing. Reports he is short of breath both at rest and with exertion. Denies any recent sick contact exposures. Denies any recent steroid use. Denies any DVT or PE history. Denies any history of cardiac stents. He denies any abdominal pain, nausea or vomiting. Denies any significant lower extremity edema. ROS: as above PHYSICAL EXAM: Constitutional: Patient appears in no acute distress. HENT: Head: Normocephalic and atraumatic. Eyes: EOMI, PERRL Mouth/Throat: Mucous membranes moist. Neck: Trachea midline. Neck supple. Cardiovascular: RRR, No murmurs, rubs or gallops. Intact distal pulses. Pulmonary/Chest: No respiratory distress. Breath sounds clear and equal bilaterally. No wheezes or rales. Abdominal: Abdomen soft, no tenderness, rebound or guarding. Musculoskeletal: No edema, tenderness or deformity noted. Skin: Warm and dry. No rash, erythema, pallor or cyanosis Psychiatric: Appropriate mood and affect for situation. Neurological: Alert and keenly responsive. CN II-XII grossly intact, moving all extremities equally and fully. MDM: - Vitals signs stable. - History obtained via patient. Patient presents with cough and shortness of breath. Patient reports that for the last 4 days has been having a cough productive of green-yellow sputum. He states that his throat has also been very uncomfortable. He reports chest pain when he is coughing. Reports feeling short of breath with at rest and with exertion. Denies any recent antibiotic or steroid use. Is any DVT or PE history. - Chronic conditions affecting care: CAD; DM-2; CKD; HTN; HLD - Differential diagnoses include, but are not limited to: ACS; viral syndrome; pneumonia; electrolyte abnormality; dysrhythmia - Order placed for continuous cardiac monitoring. At this time, monitor showed rate of 80 bpm with normal sinus rhythm, per my interpretation. - External medical records reviewed. Cardiology visit note dated 05/17/2022 was reviewed. Patient has history of CAD and is on aspirin daily. - EKG reviewed by myself showed normal sinus rhythm. Rate 60 bpm. QTc 4 4. No acute ischemic changes. Patient does have some slight peaking of his T waves suggestive of hyperkalemia - Laboratory workup interpreted by myself showed normal WBC; hyperkalemia (K 5.6); LEONARDO on CKD (Cr 2.43); normal troponin; normal BNP - CXR negative for pneumonia, per my interpretation - Viral respiratory panel negative. - Patient given 1L NS. - Repeat potassium elevated at 5.8 on iSTAT lab. Repeat EKG reviewed by myself showed normal sinus rhythm with a rate of 64 bpm. He is still having peaked T waves concerning for hyperkalemia. - Ordered 20 mg IV lasix and 5 units IV insulin. - Given patient's worsening potassium level and EKG changes, will admit for hyperkalemia treatment. - Discussed patient's case with director of patient care about need for admission. -Hospitalist consulted for admission -[facility] ASSESSMENT AND PLAN: Diagnosis: LEONARDO on CKD; hyperkalemia; Shortness of breath; productive cough; viral syndrome Plan: Admit Past Med/Surg History Medical History BPH loc w urin obs/LUTS (Unknown) CAD (coronary artery disease) Cardiopulmonary arrest with successful resuscitation Chronic constipation Chronic venous insufficiency CKD (chronic kidney disease) Depression Diabetes mellitus with diabetic polyneuropathy Disc degeneration, lumbar Dyslipidemia GERD (gastroesophageal reflux disease) History of colon polyps Hx MRSA infection Hypertension Morbid obesity Nonproliferative diabetic retinopathy PAD (peripheral artery disease) Psoriasis Sleep apnea Type 2 diabetes mellitus with chronic kidney disease, with long-term current use of insulin Uncontrolled diabetes mellitus, with long-term current use of insulin Uncontrolled type 2 diabetes mellitus with neurologic complication, with long- term current use of insulin Surgical History H/O kyphoplasty (2022) History of adenoidectomy History of cardiac cath History of cataract surgery History of cholecystectomy History of colonoscopy History of incision and drainage History of tonsillectomy History of tooth extraction S/P foot surgery, left 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 Status post uvulopalatopharyngoplasty Family History Mother Family history of diabetes mellitus Father History of alcoholism History of liver cancer Sister Cancer Denies family history of Ovarian cancer Prostate cancer Crohn's disease Breast cancer Colorectal cancer Social History Smoking Status: Never smoker Second Hand Exposure: Yes ( smokes); Do You Dip or Chew Tobacco: No; Hx Alcohol Use: No Hx Substance Use: No Preferred Language: Citizen Of [place] Communication Ability: Effective Visual Impairment: Partially Limited Hearing Ability: Hard of Hearing Analysis Internship Required: No Beliefs That Will Affect Care: None marital status: Current Living Situation: Spouse Current Living Situation Comment: Lives with and dog current occupational status: employed 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 Feels Safe at Home: Yes Childhood Exposure to Second-Hand Smoke: Yes Diet: regular Diet Comment: "tries to feed me right, but sometimes it doesn't always happen" caffeine: Yes during the past year weight has: remained stable Physical Activity Frequency: Does not Exercise Seatbelt Use: never Assistive Devices: Walker Allergies Allergies Allergy/AdvReac Type Severity Reaction Status Date / Time No Known Allergies Allergy Verified 02/26/23 09:08 Home Meds Home Medications Medication Instructions Recorded Confirmed aspirin 81 mg chewable tablet 81 mg PO QAM 07/26/20 02/26/23 lancets (Accu-Chek Fastclix Lancet 08/23/20 02/26/23 Drum) mecobalamin (vitamin B12) 1,000 1,000 mcg PO QAM 01/17/22 02/26/23 mcg lozenges Lactobacillus acidophilus 10 10,000 mmu cells PO BID 04/06/22 02/26/23 billion cell capsule (Probiotic) insulin glargine 100 unit/mL (3 70 unit subcut QAM 02/05/23 02/26/23 mL) subcutaneous pen (Basaglar KwikPen U-100 Insulin) Previous Rx's Medication Instructions Recorded [employer] Remigio 2 [place] (flash #1 ea 01/24/21 glucose scanning reader) FreeStyle Remigio 2 Sensor (flash #7 ea 01/24/21 glucose sensor) metformin 500 mg tablet 500 mg PO BID 90 days #180 tabs 01/29/22 aluminum-mag hydroxide-simethicone 10 ml PO TID #355 mL 03/06/22 400 mg-400 mg-40 mg/5 mL oral susp (Mylanta Maximum Strength) famotidine 20 mg tablet (Pepcid AC) 20 mg PO BID #30 tabs 03/06/22 blood sugar diagnostic (Accu-Chek #100 ea 06/11/22 Guide test strips) pen needle, diabetic 31 gauge x #400 ea 06/11/2206/20" (BD Ultra-Fine Mini Pen Needle) sodium zirconium cyclosilicate 5 5 g PO DAILY #30 ea 07/23/22 gram oral powder packet (Lokelma) pantoprazole 40 mg tablet,delayed 40 mg PO BID #180 tabs 08/19/22 release (Protonix) tamsulosin 0.4 mg capsule 0.4 mg PO HS #30 caps 08/19/22 empagliflozin 25 mg tablet 25 mg PO QAM #90 tabs 09/24/22 (Jardiance) duloxetine 20 mg capsule,delayed 20 mg PO BID #180 caps 10/25/22 release (Cymbalta) atorvastatin 10 mg tablet (Lipitor) 10 mg PO HS #90 tabs 10/31/22 ergocalciferol (vitamin D2) 1,250 1,250 mcg PO Q7D #4 caps 12/23/22 mcg (50,000 unit) capsule insulin aspart U-100 100 unit/mL See Rx Instructions .Route 12/23/22 (3 mL) subcutaneous pen (Novolog .COMPLEX #90 mL FlexPen U-100 Insulin aspart) furosemide 20 mg tablet (Lasix) 20 mg PO QAM #90 tabs 01/15/23 Results & Data (ED) Vital Signs Vital Signs - 24 hr 03/02/23 18:30 03/02/23 18:37 03/02/23 18:54 Temperature 36.7 C Temperature Source Temporal Artery Scan Pulse Rate 72 64 Pulse Rate [Apical] Pulse Rate [Exercises] Pulse Rate from SpO2 Sensor Respiratory Rate 18 Respiratory Rate [Exercises] Respiratory Effort / Characteristics Non-Labored Respiratory Depth Normal Respiratory Pattern Regular Blood Pressure 158/81 H Blood Pressure [Left Arm] Blood Pressure Mean 106 Blood Pressure Mean [Left Arm] Blood Pressure Position [Left Arm] Pulse Oximetry 96 94 Pulse Oximetry [Exercises] Oxygen Delivery Method Room Air Room Air Sepsis Recent Fever Within 48 Hours No Sepsis New/Unexplained Change in Mental Status N/A Sepsis Action Taken by Nursing No Action Required 03/02/23 18:55 03/02/23 19:36 03/02/23 21:24 Temperature Temperature Source Pulse Rate 65 Pulse Rate [Apical] 62 66 Pulse Rate [Exercises] Pulse Rate from SpO2 Sensor 110 H Respiratory Rate 22 20 20 Respiratory Rate [Exercises] Respiratory Effort / Characteristics Non-Labored Spontaneous Non-Labored Spontaneous Respiratory Depth Normal Normal Respiratory Pattern Regular Regular Blood Pressure 129/70 Blood Pressure [Left Arm] 140/72 105/57 L Blood Pressure Mean 89 Blood Pressure Mean [Left Arm] 94 73 Blood Pressure Position [Left Arm] Sitting Sitting Pulse Oximetry 91 94 Pulse Oximetry [Exercises] Oxygen Delivery Method Room Air Room Air Sepsis Recent Fever Within 48 Hours Sepsis New/Unexplained Change in Mental Status Sepsis Action Taken by Nursing 03/02/23 21:26 03/02/23 21:31 03/02/23 21:54 Temperature Temperature Source Pulse Rate Pulse Rate [Apical] Pulse Rate [Exercises] 79 Pulse Rate from SpO2 Sensor Respiratory Rate Respiratory Rate [Exercises] 22 Respiratory Effort / Characteristics Respiratory Depth Respiratory Pattern Blood Pressure Blood Pressure [Left Arm] 172/83 H 149/99 H Blood Pressure Mean Blood Pressure Mean [Left Arm] 112 115 Blood Pressure Position [Left Arm] Semi-fowlers Pulse Oximetry 99 Pulse Oximetry [Exercises] 96 Oxygen Delivery Method Room Air Room Air Sepsis Recent Fever Within 48 Hours Sepsis New/Unexplained Change in Mental Status Sepsis Action Taken by Nursing Laboratory Data 03/02/23 19:26 03/02/23 19:26 Lab Results 03/02/23 03/02/23 Range/Units 18:56 19:26 WBC 8.18 (4.8-10.8) K/ul RBC 4.57 L (4.70-6.10) M/uL Hgb 12.6 L (14.0-18.0) g/dl Hct 39.4 L (42.0-52.0) % MCV 86.2 (80.0-100.0) fL MCH 27.6 (25.0-34.0) pg MCHC 32.0 (32.0-36.0) g/dL RDW Std Deviation 41.0 (36.4-46.3) fL RDW Coeff of Mejia 13.2 (11.5-14.5) % Plt Count 192 (130-400) K/uL MPV 9.3 L (9.4-12.4) fL Immature Gran % (Auto) 0.4 % Neut % (Auto) 68.6 % Lymph % (Auto) 15.8 % [place] % (Auto) 11.1 % Eos % (Auto) 3.5 % Baso % (Auto) 0.6 % Neut # (Auto) 5.61 (1.40-6.50) K/uL Lymph # (Auto) 1.29 (1.20-3.40) K/uL [place] # (Auto) 0.91 H (0.11-0.59) K/uL Eos # (Auto) 0.29 (0.00-0.50) K/uL Baso # (Auto) 0.05 (0.00-0.20) K/uL Immature Gran # (Auto) 0.03 (0.01-0.20) K/uL Sodium 138 (136-145) mmol/L Potassium 5.6 H (3.5-5.1) mmol/L Chloride 101 (98-107) mmol/L Carbon Dioxide 29 (21-32) mmol/L Anion Gap 8 (3-11) BUN 43 H (6-23) mg/dl Creatinine 2.43 H (0.6-1.4) mg/dl Est Cr Clr Drug Dosing 42.2 ml/min Est GFR ( Amer) 30.7 ml/min Est GFR (Non-Af Amer) 26.5 ml/min BUN/Creatinine Ratio 17.7 (10-20) Glucose 193 H (70-99(Fasting)) mg/dl Calcium 9.8 (8.6-10.3) mg/dl Total Bilirubin 0.7 (0.2-1.0) mg/dl AST 14 (13-39) U/L ALT 9 (7-52) U/L Alkaline Phosphatase 133 H (34-104) U/L Troponin I High Sens 9.1 (0-20) pg/ml B-Natriuretic Peptide 91 (0-100) pg/ml Total Protein 7.6 (6.0-8.3) gm/dl Albumin 3.8 (3.4-5.0) gm/dl Globulin 3.8 (2.5-4.0) gm/dl Albumin/Globulin Ratio 1.0 (0.9-2) Adenovirus (PCR) Not Detected (NotDetected) B. pertussis DNA (PCR) Not Detected (NotDetected) B.parapertussis DNA PCR Not Detected (NotDetected) C. pneumoniae DNA (PCR) Not Detected (NotDetected) Coronavirus OC43 (PCR) Not Detected (NotDetected) Coronavirus HKU1 (PCR) Not Detected (NotDetected) Coronavirus 229E (PCR) Not Detected (NotDetected) SARS-CoV-2 (PCR) Not Detected (NotDetected) Coronavirus NL63 (PCR) Not Detected (NotDetected) Human Metapneumovir PCR Not Detected (NotDetected) Influenza Type A (PCR) Not Detected (NotDetected) Influenza Type B (PCR) Not Detected (NotDetected) M. pneumoniae (PCR) Not Detected (NotDetected) Parainfluenza 1 (PCR) Not Detected (NotDetected) Parainfluenza 2 (PCR) Not Detected (NotDetected) Parainfluenza 3 (PCR) Not Detected (NotDetected) Parainfluenza 4 (PCR) Not Detected (NotDetected) RSV (PCR) Not Detected (NotDetected) Entero/Rhino (PCR) Not Detected (NotDetected) Administered Medications Discontinued Medications Sodium Chloride (Nss) 1,000 mls @ 999 mls/hr IV .Q1H1M ONE Stop: 03/02/23 22:22 Last Infusion: 03/02/23 22:32 Dose: Infused Documented By: Admin: 03/02/23 21:31 Dose: 999 mls/hr Documented By: KEN Imaging Data Radiologist's Impression: Chest X-Ray 03/02/23 18:29 XR chest 1V portable CLINICAL HISTORY: cough TECHNIQUE: Single frontal radiograph of the chest was obtained. Comparison: Comparison is made to chest radiograph 04/09/2022 FINDINGS: No lines and tubes are seen. Cardiomegaly is noted. The aortic arch is calcified. The lungs are clear. No evidence of pleural effusion or pneumothorax. IMPRESSION: No acute abnormalities and in particular no radiographic evidence of pneumonia. ACT 112: Negative or not required by law. Electronically signed by: Rod Hoyt M.D. 03/02/2023 6:45 PM Discharge Plan Visit Data Chief Complaint: Shortness of Breath/Dyspnea Stated Complaint: COUGH,CONGESTION ED Provider: Ro Mello Discharge Problem: Acute kidney injury superimposed on chronic kidney disease, Acute hyperkalemia, Shortness of breath Patient Disposition: Home - Self-Care Discharge Instructions Krames/Other Patient Handouts: ED Shortness of Breath (Dyspnea) Activity Restrictions/Additional Instructions: Your work-up in the emergency department showed that you did look slightly dehydrated with an elevated creatinine or kidney function level. You also were noted to have slightly elevated potassium level. Recommend staying well- hydrated for the next few days. Please return to the emergency department if you develop chest pain, worsening shortness of breath, lightheadedness or dizziness, or any new or worsening symptoms. Please follow-up closely with your primary care provider as soon as possible, as you will need repeat laboratory work-up within the next few days. Forms Stand Alone Forms: [facility], Important Visit Information Prescriptions Prescriptions: No Action aspirin 81 mg tablet,chewable 81 mg PO QAM (DME) FreeStyle Remigio 2 [place] Misc See Rx Instructions .Route Qty: 1 0RF Rx Instructions: Use to monitor blood sugars daily (DME) FreeStyle Remigio 2 Sensor Kit See Rx Instructions .Route Qty: 7 3RF Rx Instructions: Change sensor every 14 days metformin 500 mg tablet 500 mg PO BID 90 Days Qty: 180 3RF (DME) Accu-Chek Guide test strips Strip See Rx Instructions .ROUTE .MEDSUPPLY Qty: 100 3RF Rx Instructions: test blood sugar 1 x daily (DME) pen needle, diabetic [BD Ultra-Fine Mini Pen Needle] 31 gauge x 3/16" needle .ROUTE .MEDSUPPLY Qty: 400 3RF Rx Instructions: use 4 needles daily Lokelma 5 gram powder in packet 5 g PO DAILY Qty: 30 2RF Patient Comments: doesn't always take it every day pantoprazole [Protonix] 40 mg tablet,delayed release (DR/EC) 40 mg PO BID Qty: 180 2RF tamsulosin 0.4 mg capsule 0.4 mg PO HS Qty: 30 11RF Jardiance 25 mg tablet 25 mg PO QAM Qty: 90 3RF duloxetine [Cymbalta] 20 mg capsule,delayed release(DR/EC) 20 mg PO BID Qty: 180 3RF atorvastatin [Lipitor] 10 mg tablet 10 mg PO HS Qty: 90 3RF ergocalciferol (vitamin D2) 1,250 mcg (50,000 unit) capsule 1,250 mcg PO Q7D Qty: 4 0RF Novolog FlexPen U-100 Insulin 100 unit/mL (3 mL) insulin pen See Rx Instructions .ROUTE .COMPLEX Qty: 90 2RF Dose Instruction: INJECT 80 UNITS SUBCUTANEOUSLY DAILY Rx Instructions: INJECT 90 UNITS SUBCUTANEOUSLY DAILY furosemide [Lasix] 20 mg tablet 20 mg PO QAM Qty: 90 3RF (DME) lancets [Accu-Chek Fastclix Lancet Drum] Misc See Rx Instructions .ROUTE .MEDSUPPLY Rx Instructions: test blood sugar 1 x daily Basaglar KwikPen U-100 Insulin 100 unit/mL (3 mL) insulin pen 70 unit subcut QAM mecobalamin (vitamin B12) 1,000 mcg lozenge 1,000 mcg PO QAM Rx Instructions: allow to dissolve in mouth OR may chew lightly before swallowing famotidine [Pepcid AC] 20 mg tablet 20 mg PO BID Qty: 30 0RF alum-mag hydroxide-simeth [Mylanta Maximum Strength] 400-400-40 mg/5 mL suspension 10 ml PO TID Qty: 355 0RF Probiotic 10 billion cell Capsule 10,000 mmu cells PO BID Referrals Referrals: Dora Sales MD [Primary Care Provider] -
[2023-03-02 19:40] LABS: Basophils # (auto) 0.05 K/uL (0.00-0.20); Basophils % (auto) 0.6 %; Eosinophils # (auto) 0.29 K/uL (0.00-0.50); Eosinophils % (auto) 3.5 %; Hematocrit (blood only) 39.4 % (42.0-52.0); Hemoglobin 12.6 g/dl (14.0-18.0); Immature Granulocytes # (auto) 0.03 K/uL (0.01-0.20); Immature Granulocytes % (auto) 0.4 %; Lymphocytes # (auto) 1.29 K/uL (1.20-3.40); Lymphocytes % (auto) 15.8 %; Mean Corpuscular Hemoglobin 27.6 pg (25.0-34.0); Mean Corpuscular Volume 86.2 fL (80.0-100.0); Mean Platelet Volume 9.3 fL (9.4-12.4); Monocytes # (auto) 0.91 K/uL (0.11-0.59); Monocytes % (auto) 11.1 %; Neutrophils # (auto) 5.61 K/uL (1.40-6.50); Neutrophils % (auto) 68.6 %; Platelet Count 192 K/uL (130-400); RDW Coefficient of Variation 13.2 % (11.5-14.5); Red Blood Count 4.57 M/uL (4.70-6.10); White Blood Count 8.18 K/ul (4.8-10.8)
[2023-03-02 19:55] LABS: Adenovirus PCR Not Detected (NotDetected); Bordetella parapertussis PCR Not Detected (NotDetected); Bordetella pertussis PCR Not Detected (NotDetected); Chlamydia pneumoniae PCR Not Detected (NotDetected); Coronavirus 229E PCR Not Detected (NotDetected); Coronavirus CoV-2 (COVID19)PCR Not Detected (NotDetected); Coronavirus HKU1 PCR Not Detected (NotDetected); Coronavirus NL63 PCR Not Detected (NotDetected); Coronavirus OC43PCR Not Detected (NotDetected); Human Metapneumovirus PCR Not Detected (NotDetected); Influenza A PCR Not Detected (NotDetected); Influenza B PCR Not Detected (NotDetected); Mycoplasma pneumoniae PCR Not Detected (NotDetected); Parainfluenza Virus 1 PCR Not Detected (NotDetected); Parainfluenza Virus 2 PCR Not Detected (NotDetected); Parainfluenza Virus 3 PCR Not Detected (NotDetected); Parainfluenza Virus 4 PCR Not Detected (NotDetected); Respiratory Syncytial VirusPCR Not Detected (NotDetected); Rhinovirus/Enterovirus PCR Not Detected (NotDetected)
[2023-03-02 19:56] LABS: Albumin Level 3.8 gm/dl (3.4-5.0); BUN Creatinine Ratio 17.7 (10-20); Bilirubin,Total 0.7 mg/dl (0.2-1.0); Calcium 9.8 mg/dl (8.6-10.3); Creatinine Clr Calc Pharmacy 42.2 ml/min; Est GFR (African American) 30.7 ml/min; Est GFR (Non-African American) 26.5 ml/min; Globulin 3.8 gm/dl (2.5-4.0); Potassium 5.6 mmol/L (3.5-5.1); Total Protein 7.6 gm/dl (6.0-8.3)
[2023-03-02 20:03] LABS: Troponin I High Sensitivity 9.1 pg/ml (0-20)
[2023-03-02] MEDS ORDERED: SODIUM CHLORIDE 0.9% 1,000 ML IV ONE (21:22)
[2023-03-02] MEDS ORDERED: NovoLIN-R INSULIN PER UNIT CHARGE IV STA (23:01)
[2023-03-02] MEDS ORDERED: FUROSEMIDE INJ 20 MG/2 ML VIAL IV ONE (23:02)
[2023-03-02 23:09] LABS: iSTAT Creatinine 2.5 mg/dl (0.6-1.3); iSTAT Hemoglobin 11.9 g/dl (14.0-18.0); iSTAT Ionized Calcium 1.1 mmol/l (1.12-1.32); iSTAT Potassium 5.8 mmol/L (3.3-5.0)
--- NOTE | 2023-03-02 23:50 | History & Physical Report ---
Date of Service March 02, 2023 Assessment & Plan (1) Bronchitis: (2) Acute hyperkalemia: (3) Acute kidney injury superimposed on chronic kidney disease: (4) Complex sleep apnea syndrome: (5) Diabetic foot ulcer: (6) Type 2 diabetes mellitus with chronic kidney disease, with long-term current use of insulin: (7) CAD (coronary artery disease): (8) PAD (peripheral artery disease): Plan Bronchitis- Cough productive of yellow-green sputum in large quantities Follow sputum culture and sensitivity Ceftriaxone 2 g IV daily Azithromycin 500 mg IV daily Pulmicort Respules 0.5 mg inhaled twice daily Duonebs every 4 hours while awake and every 2 hours when necessary. Guaifenesin extended release 12 mg p.o. twice daily Acute kidney injury/hyperkalemia- Creatinine 2.43, with base 1.47 Status post normal saline 1 L bolus in the ED Potassium 5.6 Received regular insulin 5 units IV in the ED, and furosemide 20 mg IV recheck laboratories in a.m. Continue Lokelma 5 g daily Diabetes mellitus- Continue insulin glargine 70 units subcu every morning Place on Accu-Cheks with NovoLog SSI Left foot ulcer- Has a clean base, and does not look actively infected Continue to use Aquacel Ag History of Present Illness Chief Complaint: The patient presents to the emergency department with 4 days of cough productive of green-yellow sputum, shortness of breath, generalized headache and sore throat Primary Care Provider: Dora Sales MD The patient is a 67-year-old male with a past medical history including CKD, complex sleep apnea syndrome, left diabetic foot ulcer, diabetes mellitus type 2, psoriasis, lumbar degenerative disc disease, diabetic polyneuropathy, GERD, history of MRSA infection, CAD, cardiopulmonary arrest with successful resuscitation, and BPH with LUTS. The patient presents to the emergency department as noted above, primarily with upper respiratory symptoms of cough productive of yellow-green mucus, shortness of breath, dyspnea on exertion and sore throat. He has been following with the wound care clinic for a left lower extremity diabetic foot ulcer. Allergies Allergy/AdvReac Type Severity Reaction Status Date / Time No Known Allergies Allergy Verified 03/03/23 00:58 Home Medications Medication Instructions Recorded Confirmed Type aspirin 81 mg chewable tablet 81 mg PO QAM 07/26/20 03/03/23 History lancets (Accu-Chek Fastclix Lancet 08/23/20 02/26/23 History Drum) FreeStyle Remigio 2 [place] (flash #1 ea 01/24/21 02/26/23 Rx glucose scanning reader) FreeStyle Remigio 2 Sensor (flash #7 ea 01/24/21 02/26/23 Rx glucose sensor) mecobalamin (vitamin B12) 1,000 1,000 mcg PO QAM 01/17/22 03/03/23 History mcg lozenges metformin 500 mg tablet 500 mg PO BID 90 days #180 tabs 01/29/22 03/03/23 Rx Lactobacillus acidophilus 10 10,000 mmu cells PO BID 04/06/22 03/03/23 History billion cell capsule (Probiotic) blood sugar diagnostic (Accu-Chek #100 ea 06/11/22 02/26/23 Rx Guide test strips) pen needle, diabetic 31 gauge x #400 ea 06/11/22 02/26/23 Rx 3/16" (BD Ultra-Fine Mini Pen Needle) sodium zirconium cyclosilicate 5 5 g PO DAILY #30 ea 07/23/22 03/03/23 Rx gram oral powder packet (Lokelma) pantoprazole 40 mg tablet,delayed 40 mg PO BID #180 tabs 08/19/22 03/03/23 Rx release (Protonix) tamsulosin 0.4 mg capsule 0.4 mg PO HS #30 caps 08/19/22 03/03/23 Rx empagliflozin 25 mg tablet 25 mg PO QAM #90 tabs 09/24/22 03/03/23 Rx (Jardiance) duloxetine 20 mg capsule,delayed 20 mg PO BID #180 caps 10/25/22 03/03/23 Rx release (Cymbalta) atorvastatin 10 mg tablet (Lipitor) 10 mg PO HS #90 tabs 10/31/22 03/03/23 Rx furosemide 20 mg tablet (Lasix) 20 mg PO QAM #90 tabs 01/15/23 03/03/23 Rx insulin glargine 100 unit/mL (3 70 unit subcut QAM 02/05/23 03/03/23 History mL) subcutaneous pen (Basaglar KwikPen U-100 Insulin) aluminum-mag hydroxide-simethicone 10 ml PO TID PRN .gi-upset 03/03/23 03/03/23 History 400 mg-400 mg-40 mg/5 mL oral susp (Mylanta Maximum Strength) cholecalciferol (vitamin D3) 25 0 mcg PO DAILY 03/03/23 03/03/23 History mcg (1,000 unit) tablet (Vitamin D3) famotidine 20 mg tablet (Pepcid AC) 20 mg PO BID PRN Acid Reflux 03/03/23 03/03/23 History insulin aspart U-100 100 unit/mL 0 unit subcut .AM & SUPPER 03/03/23 03/03/23 History (3 mL) subcutaneous pen (Novolog FlexPen U-100 Insulin aspart) Past Med/Surg History Medical History BPH loc w urin obs/LUTS (Unknown) CAD (coronary artery disease) Cardiopulmonary arrest with successful resuscitation Chronic constipation Chronic venous insufficiency CKD (chronic kidney disease) Depression Diabetes mellitus with diabetic polyneuropathy Disc degeneration, lumbar Dyslipidemia GERD (gastroesophageal reflux disease) History of colon polyps Hx MRSA infection Hypertension Morbid obesity Nonproliferative diabetic retinopathy PAD (peripheral artery disease) Psoriasis Sleep apnea Type 2 diabetes mellitus with chronic kidney disease, with long-term current use of insulin Uncontrolled diabetes mellitus, with long-term current use of insulin Uncontrolled type 2 diabetes mellitus with neurologic complication, with long- term current use of insulin Surgical History H/O kyphoplasty (2022) History of adenoidectomy History of cardiac cath History of cataract surgery History of cholecystectomy History of colonoscopy History of incision and drainage History of tonsillectomy History of tooth extraction S/P foot surgery, left 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 Status post uvulopalatopharyngoplasty Family History Mother Family history of diabetes mellitus Father History of alcoholism History of liver cancer Sister Cancer Denies family history of Ovarian cancer Prostate cancer Crohn's disease Breast cancer Colorectal cancer Social History Smoking Status: Former smoker Second Hand Exposure: Yes ( smokes); Do You Dip or Chew Tobacco: No; Hx Alcohol Use: Yes Alcohol type: beer Hx Substance Use: No Preferred Language: Estonian Communication Ability: Effective Visual Impairment: Partially Limited Hearing Ability: Hard of Hearing Business Solutions Director Required: No Beliefs That Will Affect Care: None marital status: Current Living Situation: Spouse Current Living Situation Comment: Lives with and dog current occupational status: employed 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 Feels Safe at Home: Yes Childhood Exposure to Second-Hand Smoke: Yes Diet: regular Diet Comment: "tries to feed me right, but sometimes it doesn't always happen" caffeine: Yes during the past year weight has: remained stable Physical Activity Frequency: Does not Exercise Seatbelt Use: never Assistive Devices: Walker Review of Systems Review of Systems: The patient denies chest pain, palpitations, sore throat, fevers, chills, sweats, nausea, vomiting, diarrhea , constipation, abdominal pain, pelvic pain, blood in urine or stool, dysuria, urinary frequency or urgency, lightheadedness, dizziness, memory loss, loss of consciousness, rash, abnormal bruising or bleeding, focal or generalized weakness, numbness or tingling in arms, generalized arthralgias or myalgias, back or neck pain, or night sweats. The review of systems is otherwise negative other than for that already noted above, and at least 10 systems have been reviewed. Physical Exam Physical Exam: The patient is awake, alert and oriented 3, well developed and well nourished, normocephalic and atraumatic, lying in bed and in no acute distress. Active cough productive of green-yellow sputum HEENT--PERRL, EOMI, mucous membranes and oropharynx normal Neck--supple. No JVD. No bruits. Thyroid normal, trachea midline, no adenopathy. Heart--normal S1 and S2. No murmurs, rubs or gallops. Lungs--coarse breath sounds bilaterally. No respiratory distress, no accessory muscle use. Abdomen--normal bowel sounds and soft. Nontender. Nondistended, no hernias or masses, no organomegaly. Extremities--left fifth MTP area plantar surface ulcer with clean base Dermatologic-see above Neurologic--cranial nerves II through XII grossly intact. Rheumatologic--normal range of motion. Psychiatric--normal affect. Results & Data Results & Data Vital Signs (Past 12 Hours) Vital Signs Temp Pulse Pulse Pulse Resp Resp BP 03/02/23 23:19 66 20 03/02/23 21:54 79 22 03/02/23 21:31 03/02/23 21:26 03/02/23 21:24 66 20 03/02/23 19:36 62 20 03/02/23 18:55 65 22 129/70 03/02/23 18:54 64 03/02/23 18:37 03/02/23 18:30 36.7 C 72 18 158/81 H BP Pulse Ox Pulse Ox O2 Del Method 03/02/23 23:19 148/78 H 95 Room Air 03/02/23 21:54 96 Room Air 03/02/23 21:31 149/99 H 99 Room Air 03/02/23 21:26 172/83 H 03/02/23 21:24 105/57 L 94 Room Air 03/02/23 19:36 140/72 03/02/23 18:55 91 Room Air 03/02/23 18:54 03/02/23 18:37 94 Room Air 03/02/23 18:30 96 Room Air Laboratory Results Laboratory Results WBC 8.18 K/ul (4.8-10.8) 03/02/23 19: RBC 4.57 M/uL (4.70-6.10) L 03/02/23 19:26 Hgb 12.6 g/dl (14.0-18.0) L 03/02/23 19: POC Hgb 11.9 g/dl (14.0-18.0) L 03/02/23 22:56 Hct 39.4 % (42.0-52.0) L 03/02/23 19: POC Hct 35 % (42-52) L 03/02/23 22:56 MCV 86.2 fL (80.0-100.0) 03/02/23 19: MCH 27.6 pg (25.0-34.0) 03/02/23 19: MCHC 32.0 g/dL (32.0-36.0) 03/02/23 19: RDW Std Deviation 41.0 fL (36.4-46.3) 03/02/23 19: RDW Coeff of [place] 13.2 % (11.5-14.5) 03/02/23 19: Plt Count 192 K/uL (130-400) 03/02/23 19: MPV 9.3 fL (9.4-12.4) L 03/02/23: Immature Gran % (Auto) 0.4 % 03/02/23: Neut % (Auto) 68.6 % 03/02/23: Lymph % (Auto) 15.8 % 03/02/23 19: [place] % (Auto) 11.1 % 03/02/23: Eos % (Auto) 3.5 % 03/02/23: Baso % (Auto) 0.6 % 03/02/23: Neut # (Auto) 5.61 K/uL (1.40-6.50) 03/02/23 19: Lymph # (Auto) 1.29 K/uL (1.20-3.40) 03/02/23: [place] # (Auto) 0.91 K/uL (0.11-0.59) H 03/02/23 19: Eos # (Auto) 0.29 K/uL (0.00-0.50) 03/02/23: Baso # (Auto) 0.05 K/uL (0.00-0.20) 03/02/23: Immature Gran # (Auto) 0.03 K/uL (0.01-0.20) 03/02/23 19: POC Sodium 137 mmol/L (135-144) 03/02/23 22:56 Sodium 138 mmol/L (136-145) 03/02/23 19: POC Potassium 5.8 mmol/L (3.3-5.0) H 03/02/23 22:56 Potassium 5.6 mmol/L (3.5-5.1) H 03/02/23 19: POC Chloride 104 mmol/L (101-112) 03/02/23 22:56 Chloride 101 mmol/L (98-107) 03/02/23 19: Carbon Dioxide 29 mmol/L (21-32) 03/02/23 19: POC Total CO2 28 mmol/L (24-31) 03/02/23 22:56 Anion Gap 8 (3-11) 03/02/23 19: POC Anion Gap 12.0 mmol/L (16-25) L 03/02/23 22:56 POC BUN 51 mg/dl (7-18) H 03/02/23 22:56 BUN 43 mg/dl (6-23) H 03/02/23 19: Creatinine 2.43 mg/dl (0.6-1.4) H 03/02/23 19: POC Creatinine 2.5 mg/dl (0.6-1.3) H 03/02/23 22:56 Est Cr Clr Drug Dosing 42.2 ml/min 03/02/23 19: Est GFR ( Amer) 30.7 ml/min 03/02/23 19: Est GFR (Non-Af Amer) 26.5 ml/min 03/02/23 19: BUN/Creatinine Ratio 17.7 (10-20) 03/02/23 19: Glucose 193 mg/dl (70-99(Fasting)) H 03/02/23 19: POC Glucose 165 mg/dl (70-99) H 03/02/23 23:10 POC Glucose (other) 180 mg/dl (70-99) H 03/02/23 22:56 Calcium 9.8 mg/dl (8.6-10.3) 03/02/23 19: POC Ioniz Calcium Wen 1.10 mmol/l (1.12-1.32) L 03/02/23 22:56 Total Bilirubin 0.7 mg/dl (0.2-1.0) 03/02/23 19: AST 14 U/L (13-39) 03/02/23 19: ALT 9 U/L (7-52) 03/02/23 19: Alkaline Phosphatase 133 U/L (34-104) H 03/02/23 19: Troponin I High Sens 9.1 pg/ml (0-20) 03/02/23 19: B-Natriuretic Peptide 91 pg/ml (0-100) 03/02/23 19: Total Protein 7.6 gm/dl (6.0-8.3) 03/02/23 19: Albumin 3.8 gm/dl (3.4-5.0) 03/02/23 19: Globulin 3.8 gm/dl (2.5-4.0) 03/02/23 19: Albumin/Globulin Ratio 1.0 (0.9-2) 03/02/23 19:26 Adenovirus (PCR) Not Detected (NotDetected) 03/02/23 18:56 B. pertussis DNA (PCR) Not Detected (NotDetected) 03/02/23 18:56 B.parapertussis DNA PCR Not Detected (NotDetected) 03/02/23 18:56 C. pneumoniae DNA (PCR) Not Detected (NotDetected) 03/02/23 18:56 Coronavirus OC43 (PCR) Not Detected (NotDetected) 03/02/23 18:56 Coronavirus HKU1 (PCR) Not Detected (NotDetected) 03/02/23 18:56 Coronavirus 229E (PCR) Not Detected (NotDetected) 03/02/23 18:56 SARS-CoV-2 (PCR) Not Detected (NotDetected) 03/02/23 18:56 Coronavirus NL63 (PCR) Not Detected (NotDetected) 03/02/23 18:56 Human Metapneumovir PCR Not Detected (NotDetected) 03/02/23 18:56 Influenza Type A (PCR) Not Detected (NotDetected) 03/02/23 18:56 Influenza Type B (PCR) Not Detected (NotDetected) 03/02/23 18:56 M. pneumoniae (PCR) Not Detected (NotDetected) 03/02/23 18:56 Parainfluenza 1 (PCR) Not Detected (NotDetected) 03/02/23 18:56 Parainfluenza 2 (PCR) Not Detected (NotDetected) 03/02/23 18:56 Parainfluenza 3 (PCR) Not Detected (NotDetected) 03/02/23 18:56 Parainfluenza 4 (PCR) Not Detected (NotDetected) 03/02/23 18:56 RSV (PCR) Not Detected (NotDetected) 03/02/23 18:56 Entero/Rhino (PCR) Not Detected (NotDetected) 03/02/23 18:56 Impressions Chest X-Ray 03/02/23 18:29 XR chest 1V portable CLINICAL HISTORY: cough TECHNIQUE: Single frontal radiograph of the chest was obtained. Comparison: Comparison is made to chest radiograph 04/09/2022 FINDINGS: No lines and tubes are seen. Cardiomegaly is noted. The aortic arch is calcified. The lungs are clear. No evidence of pleural effusion or pneumothorax. IMPRESSION: No acute abnormalities and in particular no radiographic evidence of pneumonia. ACT 112: Negative or not required by law. Electronically signed by: Rod Hoyt M.D. 03/02/2023 6:45 PM Code Status & VTE Plan Code Status Full code VTE Prophylaxis Plan VTE Prophylaxis will be ordered: Yes PG Care Time/CCT Total # of Minutes Spent Total Time Spent with Patient: Total time spent is greater than 50% in coordination of care (as documented) at patient's floor/unit and/or counseling patient: Coding Level of Care Code 40582 INT INP/OBS CARE 75MIN Diagnoses Bronchitis J40 Acute hyperkalemia E87.5 Acute kidney injury superimposed on chronic kidney disease N17.9; N18.9 Complex sleep apnea syndrome G47.31 Diabetic ulcer of left midfoot associated with type 2 diabetes mellitus, with fat layer exposed E11.621; L97.422 Diabetic foot ulcer location: midfoot Diabetes mellitus type: type 2 Laterality: left Non-pressure ulcer stage: with fat layer exposed Type 2 diabetes mellitus with chronic kidney disease, with long-term current use of insulin E11.22; Z79.4 CAD (coronary artery disease) I25.10 PAD (peripheral artery disease) I73.9 (5) Diabetic foot ulcer Diabetic foot ulcer location: midfoot Diabetes mellitus type: type 2 L aterality: left Non-pressure ulcer stage: with fat layer exposed Qualified Code(s): E11.621 - Type 2 diabetes mellitus with foot ulcer; L97.422 - Non- pressure chronic ulcer of left heel and midfoot with fat layer exposed
[2023-03-03] MEDS ORDERED: GLUCOSE 40% GEL 15 GM TUBE PO PRN (03:51)
[2023-03-03] MEDS ORDERED: CARBOHYDRATES FOR HYPOGLYCEMIA PO PRN (03:51)
[2023-03-03] MEDS ORDERED: GLUCAGON FOR INJ 1 MG VIAL SQ PRN (03:51)
[2023-03-03] MEDS ORDERED: ACETAMINOPHEN 325 MG TAB PO PRN (03:51)
[2023-03-03] MEDS ORDERED: GLUCOSE 10 TAB/TUBE PO PRN (03:51)
[2023-03-03] MEDS ORDERED: DEXTROSE 50% 50 ML SYRINGE IV PRN (03:51)
[2023-03-03] MEDS: cefTRIAXone SODIUM 2,000 MG in DEXTROSE 5 % MINI-B 50 ML IV SCH (05:08)
[2023-03-03] MEDS: AZITHROMYCIN 500 MG in DEXTROSE 5% 250 ML IV SCH (05:39)
[2023-03-03] MEDS: BUDESONIDE 0.5 MG/2 ML VIAL (PULMICORT) NEB SCH ×2 (07:06→20:38)
[2023-03-03] MEDS: ALBUT/IPRATROP 3MG/0.5MG NEB 3 ML VIAL NEB SCH ×4 (07:06→20:38)
[2023-03-03 07:57] LABS: Basophils # (auto) 0.05 K/uL (0.00-0.20); Basophils % (auto) 0.6 %; Eosinophils # (auto) 0.16 K/uL (0.00-0.50); Eosinophils % (auto) 1.9 %; Hematocrit (blood only) 35.9 % (42.0-52.0); Hemoglobin 11.8 g/dl (14.0-18.0); Immature Granulocytes # (auto) 0.04 K/uL (0.01-0.20); Immature Granulocytes % (auto) 0.5 %; Lymphocytes # (auto) 1.64 K/uL (1.20-3.40); Lymphocytes % (auto) 19.2 %; Mean Corpuscular Hemoglobin 27.6 pg (25.0-34.0); Mean Corpuscular Hgb Conc 32.9 g/dL (32.0-36.0); Mean Corpuscular Volume 83.9 fL (80.0-100.0); Mean Platelet Volume 9.2 fL (9.4-12.4); Monocytes # (auto) 0.85 K/uL (0.11-0.59); Neutrophils % (auto) 67.8 %; Platelet Count 180 K/uL (130-400); RDW Coefficient of Variation 13.5 % (11.5-14.5); RDW Standard Deviation 41.3 fL (36.4-46.3); Red Blood Count 4.28 M/uL (4.70-6.10); White Blood Count 8.54 K/ul (4.8-10.8)
[2023-03-03 08:09] LABS: Albumin Level 3.6 gm/dl (3.4-5.0); BUN Creatinine Ratio 17.9 (10-20); Bilirubin,Total 0.8 mg/dl (0.2-1.0); Calcium 9.3 mg/dl (8.6-10.3); Creatinine Clr Calc Pharmacy 44.7 ml/min; Est GFR (Non-African American) 28.5 ml/min; Globulin 3.6 gm/dl (2.5-4.0); Magnesium 2.2 mg/dl (1.7-2.4); Potassium 4.5 mmol/L (3.5-5.1); Total Protein 7.2 gm/dl (6.0-8.3)
[2023-03-03] MEDS: FAMOTIDINE 20 MG TAB PO SCH ×2 (09:22→21:51)
[2023-03-03] MEDS: ADVANCED PROBIOTIC 1250 MG CAPSULE PO SCH ×2 (09:22→21:51)
[2023-03-03] MEDS: ASPIRIN 81 MG CHEW PO SCH (09:22)
[2023-03-03] MEDS: FUROSEMIDE 20 MG TAB PO SCH (09:22)
[2023-03-03] MEDS: CYANOCOBALAMIN (B-12) 500 MCG TABLET PO SCH (09:22)
[2023-03-03] MEDS: DULoxetine HCL 20 MG CAP PO SCH ×2 (09:22→21:51)
[2023-03-03] MEDS: INSULIN ASPART PER UNIT CHARGE SC SCH ×4 (09:23→22:00)
[2023-03-03] MEDS: HEPARIN SOD 5,000 UNIT/0.5 ML VIAL SQ SCH ×2 (09:23→21:50)
[2023-03-03] MEDS: PANTOprazole 40 MG TAB PO SCH ×2 (09:23→21:51)
[2023-03-03] MEDS: EMPAGLIFLOZIN 25 MG TAB PO SCH (09:23)
[2023-03-03] MEDS: guaiFENesin 600 MG TABCR PO SCH ×2 (09:23→21:51)
[2023-03-03] MEDS: LANTUS PER UNIT CHARGE SQ SCH (09:43)
[2023-03-03 10:33] LABS: Estimated Average Glucose 180 mg/dl; Hemoglobin A1C 7.9 % (4.5-5.6)
[2023-03-03] MEDS: SODIUM ZIRCONIUM CYCLOSILICATE 10 GM PACKET PO SCH (10:47)
--- NOTE | 2023-03-03 15:50 | Hospitalist Progress Note ---
Date of Service March 03, 2023 Assessment & Plan (1) Bronchitis: (2) Acute hyperkalemia: (3) Acute kidney injury superimposed on chronic kidney disease: (4) Complex sleep apnea syndrome: (5) Diabetic foot ulcer: (6) Type 2 diabetes mellitus with chronic kidney disease, with long-term current use of insulin: (7) CAD (coronary artery disease): (8) PAD (peripheral artery disease): Plan Bronchitis- Cough productive of yellow-green sputum in large quantities Follow sputum culture and sensitivity Chest x-ray negative Ceftriaxone 2 g IV daily Azithromycin 500 mg IV daily Pulmicort Respules 0.5 mg inhaled twice daily Duonebs every 4 hours while awake and every 2 hours when necessary. Guaifenesin extended release 12 mg p.o. twice daily Acute kidney injury/hyperkalemia- Creatinine 2.43 on admission, with baseline 1.8-2. Today creatinine is at 2 point2.3 Status post normal saline 1 L bolus in the ED initial Potassium 5.6 after receiving regular insulin 5 units IV in the ED, and furosemide 20 mg IV , potassium has improved to 4.5 Continue Lokelma 5 g daily Diabetes mellitus- Continue insulin glargine 70 units subcu every morning Place on Accu-Cheks with NovoLog SSI Left foot ulcer- Has a clean base, and does not look actively infected Continue to use Aquacel Ag Admission and Anticipated Discharge Date Admission Date: March 02, 2023 Subjective patient says that his breathing is better but he is still coughing up phlegm. Denies chest pain Review of Systems Review of Systems: All systems reviewed & are unremarkable except as noted in Subjective Physical Exam Physical Exam: General: Awake, conversant Heart: S1, S2/regular rate and rhythm, no murmur rubs or gallops Lungs: Clear to auscultation bilaterally. Normal effort Abdomen: Soft/nontender/nondistended. No hepatosplenomegaly Extremities: No clubbing/cyanosis. No edema Behavior: Appropriate, cooperative Results & Data Results & Data Vital Signs (Past 12 Hours) Vital Signs Pulse Pulse Resp Pulse Ox Pulse Ox O2 Del Method O2 Del Method 03/03/23 15:44 62 17 95 Room Air 03/03/23 11:02 65 15 97 Room Air 03/03/23 08:00 72 03/03/23 07:06 62 18 97 Room Air 03/03/23 07:00 93 Room Air 03/03/23 07:00 65 20 96 Room Air Laboratory Results Abnormal lab results 03/02/23 03/02/23 03/02/23 Range/Units 19:26 22:56 23:10 RBC 4.57 L (4.70-6.10) M/uL Hgb 12.6 L (14.0-18.0) g/dl POC Hgb 11.9 L (14.0-18.0) g/dl Hct 39.4 L (42.0-52.0) % POC Hct 35 L (42-52) % MPV 9.3 L (9.4-12.4) fL [place] # (Auto) 0.91 H (0.11-0.59) K/uL POC Potassium 5.8 H (3.3-5.0) mmol/L Potassium 5.6 H (3.5-5.1) mmol/L POC Anion Gap 12.0 L (16-25) mmol/L POC BUN 51 H (7-18) mg/dl BUN 43 H (6-23) mg/dl Creatinine 2.43 H (0.6-1.4) mg/dl POC Creatinine 2.5 H (0.6-1.3) mg/dl Glucose 193 H (70-99(Fasting)) mg/dl POC Glucose 165 H (70-99) mg/dl POC Glucose (other) 180 H (70-99) mg/dl Hemoglobin A1c (4.5-5.6) % POC Ioniz Calcium Wen 1.10 L (1.12-1.32) mmol/l AST (13-39) U/L Alkaline Phosphatase 133 H (34-104) U/L 03/03/23 03/03/23 03/03/23 Range/Units 07:30 07:48 11:58 RBC 4.28 L (4.70-6.10) M/uL Hgb 11.8 L (14.0-18.0) g/dl POC Hgb (14.0-18.0) g/dl Hct 35.9 L (42.0-52.0) % POC Hct (42-52) % MPV 9.2 L (9.4-12.4) fL [place] # (Auto) 0.85 H (0.11-0.59) K/uL POC Potassium (3.3-5.0) mmol/L Potassium (3.5-5.1) mmol/L POC Anion Gap (16-25) mmol/L POC BUN (7-18) mg/dl BUN 41 H (6-23) mg/dl Creatinine 2.29 H (0.6-1.4) mg/dl POC Creatinine (0.6-1.3) mg/dl Glucose 226 H (70-99(Fasting)) mg/dl POC Glucose 204 H 183 H (70-99) mg/dl POC Glucose (other) (70-99) mg/dl Hemoglobin A1c 7.9 H (4.5-5.6) % POC Ioniz Calcium Wen (1.12-1.32) mmol/l AST 12 L (13-39) U/L Alkaline Phosphatase 124 H (34-104) U/L Diagnostic Findings Chest X-Ray 03/02/23 18:29 XR chest 1V portable CLINICAL HISTORY: cough TECHNIQUE: Single frontal radiograph of the chest was obtained. Comparison: Comparison is made to chest radiograph 04/09/2022 FINDINGS: No lines and tubes are seen. Cardiomegaly is noted. The aortic arch is calcified. The lungs are clear. No evidence of pleural effusion or pneumothorax. IMPRESSION: No acute abnormalities and in particular no radiographic evidence of pneumonia. ACT 112: Negative or not required by law. Electronically signed by: Rod Hoyt M.D. 03/02/2023 6:45 PM PG Care Time/CCT Total # of Minutes Spent Total Time Spent with Patient: Total time spent is greater than 50% in coordination of care (as documented) at patient's floor/unit and/or counseling patient: Coding Level of Care Code 19427 SUB INP/OBS CARE 2/35MIN Diagnoses Bronchitis J40 Acute hyperkalemia E87.5 Acute kidney injury superimposed on chronic kidney disease N17.9; N18.9 Complex sleep apnea syndrome G47.31 Diabetic ulcer of left midfoot associated with type 2 diabetes mellitus, with fa t layer exposed E11.621; L97.422 Diabetic foot ulcer location: midfoot Diabetes mellitus type: type 2 Laterality: left Non-pressure ulcer stage: with fat layer exposed Type 2 diabetes mellitus with chronic kidney disease, with long-term current use of insulin E11.22; Z79.4 CAD (coronary artery disease) I25.10 PAD (peripheral artery disease) I73.9 (5) Diabetic foot ulcer Diabetic foot ulcer location: midfoot Diabetes mellitus type: type 2 Laterality: left Non-pressure ulcer stage: with fat layer exposed Qualified Code(s): E11.621 - Type 2 diabetes mellitus with foot ulcer; L97.422 - Non- pressure chronic ulcer of left heel and midfoot with fat layer exposed
--- NOTE | 2023-03-03 19:26 | Electrocardiogram Report ---
Test Reason : Blood Pressure : / mmHG Vent. Rate : 060 BPM Atrial Rate : 060 BPM P-R Int : 162 ms QRS Dur : 090 ms QT Int : 404 ms P-R-T Axes : 073 -06 066 degrees QTc Int : 404 ms Normal sinus rhythm Normal ECG When compared with ECG of 06-APR-2022 20:38, No significant change was found Confirmed by Devang Franco ([id number]) on 03/03/2023 7:26:13 PM Referred By: REFERRED SELF Confirmed By:Jae Franco
--- NOTE | 2023-03-03 19:29 | Electrocardiogram Report ---
Test Reason : Blood Pressure : / mmHG Vent. Rate : 064 BPM Atrial Rate : 064 BPM P-R Int : 188 ms QRS Dur : 070 ms QT Int : 390 ms P-R-T Axes : 038 -13 048 degrees QTc Int : 402 ms Normal sinus rhythm with sinus arrhythmia Normal ECG When compared with ECG of 02-MAR-2023 18:47, (unconfirmed) Non-specific change in ST segment in Lateral leads Confirmed by Devang Franco ([id number]) on 03/03/2023 7:29:28 PM Referred By: REFERRED SELF Confirmed By:Jae Franco
[2023-03-03] MEDS: ATORVASTATIN 10 MG TAB PO SCH (21:52)
[2023-03-03] MEDS: BENZONATATE 100 MG CAPSULE PO PRN (21:54)
[2023-03-03] MEDS: TAMSULOSIN HCL 0.4 MG CAP PO SCH (23:15)
[2023-03-04] MEDS: cefTRIAXone SODIUM 2,000 MG in DEXTROSE 5 % MINI-B 50 ML IV SCH (06:10)
[2023-03-04] MEDS: BENZONATATE 100 MG CAPSULE PO PRN (06:14)
[2023-03-04] MEDS: ONDANSETRON INJ 2 MG/ML 2 ML VIAL IV PRN ×2 (06:14→13:17)
[2023-03-04 06:25] LABS: Basophils # (auto) 0.07 K/uL (0.00-0.20); Basophils % (auto) 1.1 %; Eosinophils # (auto) 0.21 K/uL (0.00-0.50); Eosinophils % (auto) 3.2 %; Hematocrit (blood only) 35.9 % (42.0-52.0); Hemoglobin 11.8 g/dl (14.0-18.0); Immature Granulocytes # (auto) 0.03 K/uL (0.01-0.20); Immature Granulocytes % (auto) 0.5 %; Lymphocytes % (auto) 24.1 %; Mean Corpuscular Hemoglobin 27.8 pg (25.0-34.0); Mean Corpuscular Hgb Conc 32.9 g/dL (32.0-36.0); Mean Corpuscular Volume 84.5 fL (80.0-100.0); Mean Platelet Volume 9.3 fL (9.4-12.4); Neutrophils # (auto) 4.14 K/uL (1.40-6.50); Neutrophils % (auto) 62.1 %; Platelet Count 198 K/uL (130-400); RDW Coefficient of Variation 13.5 % (11.5-14.5); RDW Standard Deviation 41.5 fL (36.4-46.3); Red Blood Count 4.25 M/uL (4.70-6.10); White Blood Count 6.65 K/ul (4.8-10.8)
[2023-03-04 07:07] LABS: Albumin Globulin Ratio 1.1 (0.9-2); Albumin Level 3.7 gm/dl (3.4-5.0); BUN Creatinine Ratio 19.7 (10-20); Bilirubin,Total 0.7 mg/dl (0.2-1.0); Calcium 8.9 mg/dl (8.6-10.3); Creatinine Clr Calc Pharmacy 43.9 ml/min; Est GFR (African American) 32.3 ml/min; Est GFR (Non-African American) 27.9 ml/min; Globulin 3.5 gm/dl (2.5-4.0); Magnesium 2.4 mg/dl (1.7-2.4); Potassium 4.2 mmol/L (3.5-5.1); Total Protein 7.2 gm/dl (6.0-8.3)
[2023-03-04] MEDS: BUDESONIDE 0.5 MG/2 ML VIAL (PULMICORT) NEB SCH ×2 (07:45→20:05)
[2023-03-04] MEDS: ALBUT/IPRATROP 3MG/0.5MG NEB 3 ML VIAL NEB SCH ×4 (07:45→20:05)
[2023-03-04] MEDS: ASPIRIN 81 MG CHEW PO SCH (08:13)
[2023-03-04] MEDS: FUROSEMIDE 20 MG TAB PO SCH (08:13)
[2023-03-04] MEDS: SODIUM ZIRCONIUM CYCLOSILICATE 10 GM PACKET PO SCH (08:14)
[2023-03-04] MEDS: EMPAGLIFLOZIN 25 MG TAB PO SCH (08:14)
[2023-03-04] MEDS: CYANOCOBALAMIN (B-12) 500 MCG TABLET PO SCH (08:14)
[2023-03-04] MEDS: AZITHROMYCIN 500 MG in DEXTROSE 5% 250 ML IV SCH (08:17)
[2023-03-04] MEDS ORDERED: PROMETHAZINE HCL INJ 25 MG/ML 1 ML VIAL IM STA (08:40)
[2023-03-04] MEDS ORDERED: PROMETHAZINE HCL 25 MG in SODIUM CHLORIDE 0.9% 50 ML IV STA (08:54)
[2023-03-04] MEDS: SODIUM CHLORIDE 0.9% 1,000 ML IV SCH ×2 (09:24→22:02)
[2023-03-04] MEDS: INSULIN ASPART PER UNIT CHARGE SC SCH ×4 (09:36→21:59)
[2023-03-04] MEDS: LANTUS PER UNIT CHARGE SQ SCH (09:36)
[2023-03-04] MEDS: ADVANCED PROBIOTIC 1250 MG CAPSULE PO SCH ×2 (09:52→21:59)
[2023-03-04] MEDS: DULoxetine HCL 20 MG CAP PO SCH ×2 (09:52→21:59)
[2023-03-04] MEDS: PANTOprazole 40 MG TAB PO SCH ×2 (09:52→21:59)
[2023-03-04] MEDS: guaiFENesin 600 MG TABCR PO SCH ×2 (09:53→21:59)
[2023-03-04] MEDS: HEPARIN SOD 5,000 UNIT/0.5 ML VIAL SQ SCH ×2 (09:53→22:01)
[2023-03-04] MEDS: FAMOTIDINE 20 MG TAB PO SCH ×2 (09:53→21:59)
--- NOTE | 2023-03-04 13:58 | Electrocardiogram Report ---
Test Reason : Blood Pressure : / mmHG Vent. Rate : 060 BPM Atrial Rate : 060 BPM P-R Int : 164 ms QRS Dur : 096 ms QT Int : 432 ms P-R-T Axes : 076 -01 063 degrees QTc Int : 432 ms Sinus rhythm with Premature supraventricular complexes Otherwise normal ECG When compared with ECG of 02-MAR-2023 23:04, Premature supraventricular complexes are now Present ST elevation now present in Inferior leads Confirmed by Devang Franco ([id number] on 03/04/2023 1:58:32 PM Referred By: REFERRED SELF Confirmed By:Jae Franco
--- NOTE | 2023-03-04 15:06 | Hospitalist Progress Note ---
Date of Service March 04, 2023 Assessment & Plan (1) Bronchitis: (2) Acute hyperkalemia: (3) Acute kidney injury superimposed on chronic kidney disease: (4) Complex sleep apnea syndrome: (5) Diabetic foot ulcer: (6) Type 2 diabetes mellitus with chronic kidney disease, with long-term current use of insulin: (7) CAD (coronary artery disease): (8) PAD (peripheral artery disease): Plan Bronchitis- Cough productive of yellow-green sputum in large quantities Follow sputum culture and sensitivity Chest x-ray negative Ceftriaxone 2 g IV daily Azithromycin 500 mg IV daily Pulmicort Respules 0.5 mg inhaled twice daily Duonebs every 4 hours while awake and every 2 hours when necessary. Guaifenesin extended release 12 mg p.o. twice daily Acute kidney injury/hyperkalemia- Creatinine 2.43 on admission, with baseline 1.8-2. Today creatinine is at 2.3 Status post normal saline 1 L bolus in the ED initial Potassium 5.6 after receiving regular insulin 5 units IV in the ED, and furosemide 20 mg IV , potassium has improved To normal Continue Lokelma 5 g daily Will hydrate gently with normal saline at 80 mL an hour and monitor BMP closely Avoid nephrotoxins Diabetes mellitus- Continue insulin glargine 70 units subcu every morning Place on Accu-Cheks with NovoLog SSI Left foot ulcer- Has a clean base, and does not look actively infected Continue to use Aquacel Ag Admission and Anticipated Discharge Date Admission Date: March 02, 2023 Subjective patient had an episode of vomiting today. He says that he is still nauseous. He denies any chest pain or shortness of breath. His cough is getting better. Review of Systems Review of Systems: All systems reviewed & are unremarkable except as noted in Subjective Physical Exam Physical Exam: General: Awake, conversant Heart: S1, S2/regular rate and rhythm, no murmur rubs or gallops Lungs: Clear to auscultation bilaterally. Normal effort Abdomen: Soft/nontender/nondistended. No hepatosplenomegaly Extremities: No clubbing/cyanosis. No edema Behavior: Appropriate, cooperative Results & Data Results & Data Vital Signs (Past 12 Hours) Vital Signs Temp Pulse Pulse Pulse Resp BP BP 03/04/23 11:40 36.8 C 66 19 102/60 03/04/23 11:10 74 18 03/04/23 08:01 36.6 C 66 18 103/46 L 03/04/23 07:45 58 L 20 03/04/23 07:26 03/04/23 07:03 62 03/04/23 04:06 36.3 C L 69 16 139/60 Pulse Ox O2 Del Method 03/04/23 11:40 90 Room Air 03/04/23 11:10 92 Room Air 03/04/23 08:01 97 Room Air 03/04/23 07:45 95 Room Air 03/04/23 07:26 Room Air 03/04/23 07:03 03/04/23 04:06 95 Room Air Laboratory Results Abnormal lab results 03/03/23 03/03/23 03/04/23 Range/Units 17:40 20:52 05:28 RBC 4.25 L (4.70-6.10) M/uL Hgb 11.8 L (14.0-18.0) g/dl Hct 35.9 L (42.0-52.0) % MPV 9.3 L (9.4-12.4) fL Butler # (Auto) 0.60 H (0.11-0.59) K/uL BUN 46 H (6-23) mg/dl Creatinine 2.33 H (0.6-1.4) mg/dl Glucose 130 H (70-99(Fasting)) mg/dl POC Glucose 192 H 223 H (70-99) mg/dl Alkaline Phosphatase 122 H (34-104) U/L 03/04/23 03/04/23 03/04/23 Range/Units 08:10 10:06 12:14 RBC (4.70-6.10) M/uL Hgb (14.0-18.0) g/dl Hct (42.0-52.0) % MPV (9.4-12.4) fL Butler # (Auto) (0.11-0.59) K/uL BUN (6-23) mg/dl Creatinine (0.6-1.4) mg/dl Glucose (70-99(Fasting)) mg/dl POC Glucose 188 H 191 H 138 H (70-99) mg/dl Alkaline Phosphatase (34-104) U/L PG Care Time/CCT Total # of Minutes Spent Total Time Spent with Patient: Total time spent is greater than 50% in coordination of care (as documented) at patient's floor/unit and/or counseling patient: Coding Level of Care Code 11276 SUB INP/OBS CARE 235MIN Diagnoses Bronchitis J40 Acute hyperkalemia E87.5 Acute kidney injury superimposed on chronic kidney disease N17.9; N18.9 Complex sleep apnea syndrome G47.31 Diabetic ulcer of left midfoot associated with type 2 diabetes mellitus, with fat layer exposed E11.621; L97.422 Diabetic foot ulcer location: midfoot Diabetes mellitus type: type 2 Laterality: left Non-pressure ulcer stage: with fat layer exposed Type 2 diabetes mellitus with chronic kidney disease, with long-term current use of insulin E11.22; Z79.4 CAD (coronary artery disease) I25.10 PAD (peripheral artery disease) I73.9 (5) Diabetic foot ulcer Diabetic foot ulcer location: midfoot Diabetes mellitus type: type 2 Laterality: left Non-pressure ulcer stage: with fat layer exposed Qualified Code(s): E11.621 - Type 2 diabetes mellitus with foot ulcer; L97.422 - Non- pressure chronic ulcer of left heel and midfoot with fat layer exposed
[2023-03-04] MEDS: TAMSULOSIN HCL 0.4 MG CAP PO SCH (21:59)
[2023-03-04] MEDS: ATORVASTATIN 10 MG TAB PO SCH (22:00)
[2023-03-05] MEDS: cefTRIAXone SODIUM 2,000 MG in DEXTROSE 5 % MINI-B 50 ML IV SCH (06:12)
[2023-03-05] MEDS: ALBUT/IPRATROP 3MG/0.5MG NEB 3 ML VIAL NEB SCH ×2 (07:16→20:34)
[2023-03-05] MEDS: BUDESONIDE 0.5 MG/2 ML VIAL (PULMICORT) NEB SCH ×2 (07:16→20:34)
[2023-03-05] MEDS: ONDANSETRON INJ 2 MG/ML 2 ML VIAL IV PRN (07:27)
[2023-03-05 07:39] LABS: Basophils # (auto) 0.04 K/uL (0.00-0.20); Basophils % (auto) 0.6 %; Eosinophils # (auto) 0.17 K/uL (0.00-0.50); Eosinophils % (auto) 2.6 %; Hematocrit (blood only) 36.5 % (42.0-52.0); Hemoglobin 11.5 g/dl (14.0-18.0); Immature Granulocytes # (auto) 0.06 K/uL (0.01-0.20); Immature Granulocytes % (auto) 0.9 %; Lymphocytes # (auto) 0.81 K/uL (1.20-3.40); Lymphocytes % (auto) 12.5 %; Mean Corpuscular Hemoglobin 27.2 pg (25.0-34.0); Mean Corpuscular Hgb Conc 31.5 g/dL (32.0-36.0); Mean Corpuscular Volume 86.3 fL (80.0-100.0); Mean Platelet Volume 8.9 fL (9.4-12.4); Monocytes # (auto) 0.41 K/uL (0.11-0.59); Monocytes % (auto) 6.3 %; Neutrophils # (auto) 4.99 K/uL (1.40-6.50); Neutrophils % (auto) 77.1 %; Platelet Count 175 K/uL (130-400); RDW Coefficient of Variation 13.4 % (11.5-14.5); RDW Standard Deviation 41.6 fL (36.4-46.3); Red Blood Count 4.23 M/uL (4.70-6.10); White Blood Count 6.48 K/ul (4.8-10.8)
[2023-03-05 08:19] LABS: Albumin Level 3.6 gm/dl (3.4-5.0); BUN Creatinine Ratio 20.1 (10-20); Bilirubin,Total 0.4 mg/dl (0.2-1.0); Calcium 8.7 mg/dl (8.6-10.3); Creatinine Clr Calc Pharmacy 51.4 ml/min; Est GFR (African American) 39.1 ml/min; Est GFR (Non-African American) 33.7 ml/min; Globulin 3.5 gm/dl (2.5-4.0); Magnesium 2.5 mg/dl (1.7-2.4); Potassium 4.9 mmol/L (3.5-5.1); Total Protein 7.1 gm/dl (6.0-8.3)
[2023-03-05] MEDS: AZITHROMYCIN 500 MG in DEXTROSE 5% 250 ML IV SCH (08:55)
[2023-03-05] MEDS: INSULIN ASPART PER UNIT CHARGE SC SCH ×4 (09:36→21:11)
[2023-03-05] MEDS: HEPARIN SOD 5,000 UNIT/0.5 ML VIAL SQ SCH ×2 (09:37→21:13)
[2023-03-05] MEDS: ADVANCED PROBIOTIC 1250 MG CAPSULE PO SCH ×2 (09:37→21:14)
[2023-03-05] MEDS: SODIUM ZIRCONIUM CYCLOSILICATE 10 GM PACKET PO SCH (09:37)
[2023-03-05] MEDS: ASPIRIN 81 MG CHEW PO SCH (09:37)
[2023-03-05] MEDS: guaiFENesin 600 MG TABCR PO SCH ×2 (09:37→21:13)
[2023-03-05] MEDS: DULoxetine HCL 20 MG CAP PO SCH ×2 (09:38→21:12)
[2023-03-05] MEDS: PANTOprazole 40 MG TAB PO SCH ×2 (09:38→21:14)
[2023-03-05] MEDS: CYANOCOBALAMIN (B-12) 500 MCG TABLET PO SCH (09:38)
[2023-03-05] MEDS: EMPAGLIFLOZIN 25 MG TAB PO SCH (09:38)
[2023-03-05] MEDS: FAMOTIDINE 20 MG TAB PO SCH ×2 (09:38→21:13)
[2023-03-05] MEDS: FUROSEMIDE 20 MG TAB PO SCH (09:38)
[2023-03-05] MEDS ORDERED: PROCHLORPERAZINE 5 MG in SYRINGE 4 ML IV PRN (09:47)
[2023-03-05] MEDS: LANTUS PER UNIT CHARGE SQ SCH (09:49)
--- NOTE | 2023-03-05 11:47 | Hospitalist Progress Note ---
Date of Service March 05, 2023 Assessment & Plan (1) Bronchitis: (2) Acute hyperkalemia: (3) Acute kidney injury superimposed on chronic kidney disease: (4) Complex sleep apnea syndrome: (5) Diabetic foot ulcer: (6) Type 2 diabetes mellitus with chronic kidney disease, with long-term current use of insulin: (7) CAD (coronary artery disease): (8) PAD (peripheral artery disease): Plan Bronchitis- Cough productive of yellow-green sputum in large quantities Follow sputum culture and sensitivity Chest x-ray negative Ceftriaxone 2 g IV daily Azithromycin 500 mg IV daily Pulmicort Respules 0.5 mg inhaled twice daily Duonebs every 4 hours while awake and every 2 hours when necessary. Guaifenesin extended release 12 mg p.o. twice daily Clinically improving Nausea/vomiting Patient has been having issues with nausea/vomiting for the last 5 or 6 days He has a low appetite and is always fearful of vomiting. Has not been eating well at all. No abdominal pain but he says that he does not feel like he is evacuating enough with bowel movements Ordered CT abdomen stat He could have diabetic gastroparesis Continue Zofran and Compazine Acute kidney injury/hyperkalemia on CKD stage III Creatinine 2.43 on admission, with baseline 1.8-2. Today creatinine is at 1.9 Status post normal saline 1 L bolus in the ED initial Potassium 5.6 after receiving regular insulin 5 units IV in the ED, and furosemide 20 mg IV , potassium has improved To normal Continue Lokelma 5 g daily Will hydrate gently with normal saline at 80 mL an hour and monitor BMP closely Avoid nephrotoxins Diabetes mellitus Complicated by diabetic neuropathy Continue insulin glargine 70 units subcu every morning Place on Accu-Cheks with NovoLog SSI Left foot ulcer- Has a clean base, and does not look actively infected Continue to use Aquacel Ag Lumbar degenerative disc disease GERD. Continue Protonix Coronary artery disease BPH with LUTS. Continue Flomax History of cardiopulmonary arrest with successful resuscitation DVT prophylaxis: Heparin Full code Admission and Anticipated Discharge Date Admission Date: March 02, 2023 Subjective Patient has been having nausea and vomiting the past few days. He does not have an appetite. Denies abdominal pain. He says that he does not feel like he evacuates enough with bowel movements. Denies fever. No diarrhea. Cough and shortness of breath are improving. Review of Systems Review of Systems: All systems reviewed & are unremarkable except as noted in Subjective Physical Exam Physical Exam: General: Awake, conversant Heart: S1, S2/regular rate and rhythm, no murmur rubs or gallops Lungs: Clear to auscultation bilaterally. Normal effort Abdomen: Soft/nontender/nondistended. No hepatosplenomegaly Extremities: No clubbing/cyanosis. No edema Behavior: Appropriate, cooperative Results & Data Results & Data Vital Signs (Past 12 Hours) Vital Signs Temp Pulse Pulse Resp BP Pulse Ox O2 Del Method 03/05/23 11:25 36.2 C L 67 18 128/70 95 Room Air 03/05/23 07:48 36.7 C 100 H 18 120/68 90 Room Air 03/05/23 07:16 84 20 92 Room Air 03/05/23 06:00 67 03/05/23 03:57 36.5 C 78 20 122/77 95 Room Air 03/05/23 00:05 73 Laboratory Results Abnormal lab results 03/04/23 03/05/23 03/05/23 Range/Units 12:14 07:08 08:35 RBC 4.23 L (4.70-6.10) M/uL Hgb 11.5 L (14.0-18.0) g/dl Hct 36.5 L (42.0-52.0) % MCHC 31.5 L (32.0-36.0) g/dL MPV 8.9 L (9.4-12.4) fL Lymph # (Auto) 0.81 L (1.20-3.40) K/uL BUN 40 H (6-23) mg/dl Creatinine 1.99 H D (0.6-1.4) mg/dl BUN/Creatinine Ratio 20.1 H (10-20) Glucose 103 H (70-99(Fasting)) mg/dl POC Glucose 138 H 115 H (70-99) mg/dl Magnesium 2.5 H (1.7-2.4) mg/dl Alkaline Phosphatase 122 H (34-104) U/L PG Care Time/CCT Total # of Minutes Spent Total Time Spent with Patient: Total time spent is greater than 50% in coordination of care (as documented) at patient's floor/unit and/or counseling patient: Coding Level of Care Code 92149 SUB INP/OBS CARE 2/35MIN Diagnoses Bronchitis J40 Acute hyperkalemia E87.5 Acute kidney injury superimposed on chronic kidney disease N17.9; N18.9 Complex sleep apnea syndrome G47.31 Diabetic ulcer of left midfoot associated with type 2 diabetes mellitus, with fat layer exposed E11.621; L97.422 Diabetic foot ulcer location: midfoot Diabetes mellitus type: type 2 Laterality: left Non-pressure ulcer stage: with fat layer exposed Type 2 diabetes mellitus with chronic kidney disease, with long-term current use of insulin E11.22; Z79.4 CAD (coronary artery disease) I25.10 PAD (peripheral artery disease) I73.9 (5) Diabetic foot ulcer Diabetic foot ulcer location: midfoot Diabetes mellitus type: type 2 Lateral ity: left Non-pressure ulcer stage: with fat layer exposed Qualified Code(s): E11.621 - Type 2 diabetes mellitus with foot ulcer; L97.422 - Non-pressure chronic ulcer of left heel and midfoot with fat layer exposed
--- NOTE | 2023-03-05 12:57 | CT Scan Report ---
CT OF THE ABDOMEN AND PELVIS WITHOUT CONTRAST CLINICAL HISTORY: Vomiting. COMPARISON STUDY: CT of the abdomen and pelvis April 06, 2022, KUB April 12, 2022 and renal ultr asound November 26, 2022. TECHNIQUE: Axial images of the abdomen and pelvis were obtained without IV contrast. Images were revi ewed in the axial, sagittal, and coronal planes. Automated exposure control was utilized for the murali dy. A dose lowering technique was utilized adhering to the principles of ALARA. FINDINGS: A 1.2 cm irregular nodular opacity with mild adjacent groundglass opacity within the right lower lobe on image 31 of [address] of April 06, 2022. No pneumatosis, free air or shima l venous gas is present. There is no biliary ductal dilatation status post cholecystectomy. Interval L1 vertebroplasty is noted. Unenhanced images of the liver, spleen, right adrenal gland and pancreas are unremarkable. A low-attenuation left adrenal nodule is unchanged. This represents an adenoma. The re is no evidence for a bowel obstruction. The appendix is normal. A moderate amount of stool within the colon is present. There is no lymphadenopathy. No fluid collections are present. No acute fractur es are identified within the visualized skeletal structures. No urinary calculi or hydronephrosis is present. IMPRESSION: 1. No evidence for a bowel obstruction. Moderate amount of stool within the colon. 2. No urinary calculi or hydronephrosis. 3. 1.2 cm irregular nodular density within the right lower lobe with mild adjacent ground glass opaci ty. This favors a mild infectious process. However, a chest CT in 2 months to ensure resolution is re commended to exclude the possibility of a pulmonary nodule. ACT 112: Positive. There are findings on this exam that require communication between the performing entity and the patient following Patient Test Result Information Act ([place] Act 112) guidelines. Electronically signed by: Guillaume Sales M.D. 03/05/2023 12:55 PM
[2023-03-05] MEDS: SODIUM CHLORIDE 0.9% 1,000 ML IV SCH (13:35)
[2023-03-05] MEDS: POLYETHYLENE (MIRALAX) 17 GM PACK PO SCH (18:42)
[2023-03-05] MEDS: ATORVASTATIN 10 MG TAB PO SCH (21:12)
[2023-03-05] MEDS: DOCUSATE SODIUM 100 MG CAP PO SCH (21:12)
[2023-03-05] MEDS: TAMSULOSIN HCL 0.4 MG CAP PO SCH (21:14)
[2023-03-06] MEDS: SODIUM CHLORIDE 0.9% 1,000 ML IV SCH ×2 (01:02→11:50)
[2023-03-06] MEDS: cefTRIAXone SODIUM 2,000 MG in DEXTROSE 5 % MINI-B 50 ML IV SCH (05:26)
[2023-03-06 06:42] LABS: Basophils # (auto) 0.03 K/uL (0.00-0.20); Basophils % (auto) 0.6 %; Eosinophils # (auto) 0.26 K/uL (0.00-0.50); Hematocrit (blood only) 32.7 % (42.0-52.0); Hemoglobin 10.7 g/dl (14.0-18.0); Immature Granulocytes # (auto) 0.05 K/uL (0.01-0.20); Lymphocytes # (auto) 1.15 K/uL (1.20-3.40); Lymphocytes % (auto) 21.9 %; Mean Corpuscular Hemoglobin 27.9 pg (25.0-34.0); Mean Corpuscular Hgb Conc 32.7 g/dL (32.0-36.0); Mean Corpuscular Volume 85.4 fL (80.0-100.0); Mean Platelet Volume 9.3 fL (9.4-12.4); Monocytes # (auto) 0.41 K/uL (0.11-0.59); Monocytes % (auto) 7.8 %; Neutrophils # (auto) 3.35 K/uL (1.40-6.50); Neutrophils % (auto) 63.7 %; Platelet Count 167 K/uL (130-400); RDW Coefficient of Variation 13.6 % (11.5-14.5); RDW Standard Deviation 42.2 fL (36.4-46.3); Red Blood Count 3.83 M/uL (4.70-6.10); White Blood Count 5.25 K/ul (4.8-10.8)
[2023-03-06] MEDS: ALBUT/IPRATROP 3MG/0.5MG NEB 3 ML VIAL NEB SCH ×2 (06:53→19:41)
[2023-03-06] MEDS: BUDESONIDE 0.5 MG/2 ML VIAL (PULMICORT) NEB SCH ×2 (06:53→19:41)
[2023-03-06 07:15] LABS: Albumin Globulin Ratio 1.1 (0.9-2); Albumin Level 3.3 gm/dl (3.4-5.0); Bilirubin,Total 0.4 mg/dl (0.2-1.0); Calcium 8.6 mg/dl (8.6-10.3); Creatinine Clr Calc Pharmacy 51.4 ml/min; Est GFR (African American) 38.9 ml/min; Est GFR (Non-African American) 33.5 ml/min; Globulin 3.1 gm/dl (2.5-4.0); Magnesium 2.4 mg/dl (1.7-2.4); Potassium 4.2 mmol/L (3.5-5.1); Total Protein 6.4 gm/dl (6.0-8.3)
[2023-03-06] MEDS: guaiFENesin 600 MG TABCR PO SCH ×2 (09:14→20:53)
[2023-03-06] MEDS: PANTOprazole 40 MG TAB PO SCH ×2 (09:14→20:54)
[2023-03-06] MEDS: DOCUSATE SODIUM 100 MG CAP PO SCH ×2 (09:15→20:52)
[2023-03-06] MEDS: EMPAGLIFLOZIN 25 MG TAB PO SCH (09:15)
[2023-03-06] MEDS: DULoxetine HCL 20 MG CAP PO SCH ×2 (09:15→20:52)
[2023-03-06] MEDS: FUROSEMIDE 20 MG TAB PO SCH (09:15)
[2023-03-06] MEDS: ADVANCED PROBIOTIC 1250 MG CAPSULE PO SCH ×2 (09:15→20:54)
[2023-03-06] MEDS: ASPIRIN 81 MG CHEW PO SCH (09:15)
[2023-03-06] MEDS: CYANOCOBALAMIN (B-12) 500 MCG TABLET PO SCH (09:15)
[2023-03-06] MEDS: FAMOTIDINE 20 MG TAB PO SCH ×2 (09:15→20:53)
[2023-03-06] MEDS: HEPARIN SOD 5,000 UNIT/0.5 ML VIAL SQ SCH ×2 (09:16→20:53)
[2023-03-06] MEDS: SODIUM ZIRCONIUM CYCLOSILICATE 10 GM PACKET PO SCH (09:16)
[2023-03-06] MEDS: POLYETHYLENE (MIRALAX) 17 GM PACK PO SCH (09:16)
[2023-03-06] MEDS: LANTUS PER UNIT CHARGE SQ SCH (09:27)
[2023-03-06] MEDS: INSULIN ASPART PER UNIT CHARGE SC SCH ×4 (09:27→20:53)
[2023-03-06] MEDS: AZITHROMYCIN 500 MG in DEXTROSE 5% 250 ML IV SCH (09:47)
--- NOTE | 2023-03-06 14:52 | Hospitalist Progress Note ---
Date of Service March 06, 2023 Assessment & Plan (1) Bronchitis: (2) Acute hyperkalemia: (3) Acute kidney injury superimposed on chronic kidney disease: (4) Complex sleep apnea syndrome: (5) Diabetic foot ulcer: (6) Type 2 diabetes mellitus with chronic kidney disease, with long-term current use of insulin: (7) CAD (coronary artery disease): (8) PAD (peripheral artery disease): (9) Morbid obesity: Plan: BMI 48 Plan Bronchitis- Cough productive of yellow-green sputum in large quantities Follow sputum culture and sensitivity Chest x-ray negative Ceftriaxone 2 g IV daily Azithromycin 500 mg IV daily Pulmicort Respules 0.5 mg inhaled twice daily Duonebs every 4 hours while awake and every 2 hours when necessary. Guaifenesin extended release 12 mg p.o. twice daily Clinically improving Nausea/vomiting Patient has been having issues with nausea/vomiting for the last 5 or 6 days He has a low appetite and is always fearful of vomiting. Has not been eating well at all. No abdominal pain but he says that he does not feel like he is evacuating enough with bowel movements CT abdomen shows constipation Ordered bowel regimen. Patient did not take MiraLAX. Encouraged patient to take stool softeners. He could have a component of diabetic gastroparesis Continue Zofran and Compazine Acute kidney injury/hyperkalemia on CKD stage III Creatinine 2.43 on admission, with baseline 1.8-2. Today creatinine is at 2 Status post normal saline 1 L bolus in the ED initial Potassium 5.6 after receiving regular insulin 5 units IV in the ED, and furosemide 20 mg IV , potassium has improved To normal Continue Lokelma 5 g daily discontinue IV fluids Avoid nephrotoxins Diabetes mellitus Complicated by diabetic neuropathy Continue insulin glargine 70 units subcu every morning Place on Accu-Cheks with NovoLog SSI Left foot ulcer- Has a clean base, and does not look actively infected Continue to use Aquacel Ag Lumbar degenerative disc disease GERD. Continue Protonix Coronary artery disease BPH with LUTS. Continue Flomax History of cardiopulmonary arrest with successful resuscitation DVT prophylaxis: Heparin Full code Admission and Anticipated Discharge Date Admission Date: March 02, 2023 Subjective patient is not nauseous today. Says that he is still coughing up phlegm. Does not feel short of breath. Review of Systems Review of Systems: All systems reviewed & are unremarkable except as noted in Subjective Physical Exam Physical Exam: General: Awake, conversant Heart: S1, S2/regular rate and rhythm, no murmur rubs or gallops Lungs: Clear to auscultation bilaterally. Normal effort Abdomen: Soft/nontender/nondistended. No hepatosplenomegaly Extremities: No clubbing/cyanosis. No edema Behavior: Appropriate, cooperative Results & Data Results & Data Vital Signs (Past 12 Hours) Vital Signs Temp Pulse Pulse Resp BP BP Pulse Ox 03/06/23 12:55 36.3 C L 64 16 147/78 H 98 03/06/23 09:06 36.6 C 70 16 137/81 92 03/06/23 08:00 03/06/23 07:00 49 L 03/06/23 06:53 56 L 16 94 03/06/23 04:00 36.3 C L 59 L 20 138/71 95 O2 Del Method 03/06/23 12:55 Room Air 03/06/23 09:06 Room Air 03/06/23 08:00 Room Air 03/06/23 07:00 03/06/23 06:53 Room Air 03/06/23 04:00 Room Air PG Care Time/CCT Total # of Minutes Spent Total Time Spent with Patient: Total time spent is greater than 50% in coordination of care (as documented) at patient's floor/unit and/or counseling patient: Coding Level of Care Code 63850 SUB INP/OBS CARE 2/35MIN Diagnoses Bronchitis J40 Acute hyperkalemia E87.5 Acute kidney injury superimposed on chronic kidney disease N17.9; N18.9 Complex sleep apnea syndrome G47.31 Diabetic ulcer of left midfoot associated with type 2 diabetes mellitus, with fat layer exposed E11.621; L97.422 Diabetic foot ulcer location: midfoot Diabetes mellitus type: type 2 Laterality: left Non-pressure ulcer stage: with fat layer exposed Type 2 diabetes mellitus with chronic kidney disease, with long-term current use of insulin E11.22; Z79.4 CAD (coronary artery disease) I25.10 PAD (peripheral artery disease) I73.9 Morbid obesity E66.01 (5) Diabetic foot ulcer Diabetic foot ulcer location: midfoot Diabetes mellitus type: type 2 Laterality: left Non-pressure ulcer stage: with fat layer exposed Qualified Code(s): E11.621 - Type 2 diabetes mellitus with foot ulcer; L97.398 - Non- pressure chronic ulcer of left heel and midfoot with fat layer exposed
[2023-03-06] MEDS: ATORVASTATIN 10 MG TAB PO SCH (20:52)
[2023-03-06] MEDS: TAMSULOSIN HCL 0.4 MG CAP PO SCH (20:54)
[2023-03-06] MEDS: BENZONATATE 100 MG CAPSULE PO PRN (20:54)
[2023-03-07] MEDS: cefTRIAXone SODIUM 2,000 MG in DEXTROSE 5 % MINI-B 50 ML IV SCH (06:14)
[2023-03-07] MEDS: BUDESONIDE 0.5 MG/2 ML VIAL (PULMICORT) NEB SCH (07:05)
[2023-03-07] MEDS: ALBUT/IPRATROP 3MG/0.5MG NEB 3 ML VIAL NEB SCH (07:05)
[2023-03-07] MEDS: AZITHROMYCIN 500 MG in DEXTROSE 5% 250 ML IV SCH (08:09)
[2023-03-07] MEDS: ASPIRIN 81 MG CHEW PO SCH (08:52)
[2023-03-07] MEDS: ADVANCED PROBIOTIC 1250 MG CAPSULE PO SCH (08:52)
[2023-03-07] MEDS: DULoxetine HCL 20 MG CAP PO SCH (08:52)
[2023-03-07] MEDS: PANTOprazole 40 MG TAB PO SCH (08:52)
[2023-03-07] MEDS: POLYETHYLENE (MIRALAX) 17 GM PACK PO SCH (08:52)
[2023-03-07] MEDS: SODIUM ZIRCONIUM CYCLOSILICATE 10 GM PACKET PO SCH (08:52)
[2023-03-07] MEDS: FUROSEMIDE 20 MG TAB PO SCH (08:52)
[2023-03-07] MEDS: guaiFENesin 600 MG TABCR PO SCH (08:52)
[2023-03-07] MEDS: HEPARIN SOD 5,000 UNIT/0.5 ML VIAL SQ SCH (08:53)
[2023-03-07] MEDS: DOCUSATE SODIUM 100 MG CAP PO SCH (08:53)
[2023-03-07] MEDS: FAMOTIDINE 20 MG TAB PO SCH (08:53)
[2023-03-07] MEDS: EMPAGLIFLOZIN 25 MG TAB PO SCH (08:53)
[2023-03-07] MEDS: CYANOCOBALAMIN (B-12) 500 MCG TABLET PO SCH (08:53)
[2023-03-07 08:56] LABS: BUN Creatinine Ratio 16.2 (10-20); Creatinine Clr Calc Pharmacy 52.4 ml/min; Est GFR (African American) 39.6 ml/min; Est GFR (Non-African American) 34.2 ml/min; Potassium 4.2 mmol/L (3.5-5.1)
[2023-03-07] MEDS ORDERED: LANTUS PER UNIT CHARGE SQ SCH ×2 (09:00→10:30)
[2023-03-07] MEDS: INSULIN ASPART PER UNIT CHARGE SC SCH ×2 (09:02→13:34)
[2023-03-07] MEDS ORDERED: Nursing to Pharmacy Communication SCH (10:00)
--- NOTE | 2023-03-07 10:52 | Discharge Summary ---
Date of Service March 07, 2023 Admission HPI Per Admitting Provider The patient is a 67-year-old male with a past medical history including CKD, complex sleep apnea syndrome, left diabetic foot ulcer, diabetes mellitus type 2, psoriasis, lumbar degenerative disc disease, diabetic polyneuropathy, GERD, history of MRSA infection, CAD, cardiopulmonary arrest with successful resuscitation, and BPH with LUTS. The patient presents to the emergency department as noted above, primarily with upper respiratory symptoms of cough productive of yellow-green mucus, shortness of breath, dyspnea on exertion and sore throat. He has been following with the wound care clinic for a left lower extremity diabetic foot ulcer. Admission Exam Per Admitting Provider The patient is awake, alert and oriented 3, well developed and well nourished, normocephalic and atraumatic, lying in bed and in no acute distress. Active cough productive of green-yellow sputum HEENT--PERRL, EOMI, mucous membranes and oropharynx normal Neck--supple. No JVD. No bruits. Thyroid normal, trachea midline, no adenopathy. Heart--normal S1 and S2. No murmurs, rubs or gallops. Lungs--coarse breath sounds bilaterally. No respiratory distress, no accessory muscle use. Abdomen--normal bowel sounds and soft. Nontender. Nondistended, no hernias or masses, no organomegaly. Extremities--left fifth MTP area plantar surface ulcer with clean base Dermatologic-see above Neurologic--cranial nerves II through XII grossly intact. Rheumatologic--normal range of motion. Psychiatric--normal affect. Principal Diagnosis - community-acquired pneumonia versus acute bronchitis -Acute kidney injury on CKD -Vomiting due to constipation Discharge Exam General: Awake, conversant Heart: S1, S2/regular rate and rhythm, no murmur rubs or gallops Lungs: Clear to auscultation bilaterally. Normal effort Abdomen: Soft/nontender/nondistended. No hepatosplenomegaly Extremities: No clubbing/cyanosis. No edema Behavior: Appropriate, cooperative Discharge Data Allergies Allergy/AdvReac Type Severity Reaction Status Date / Time No Known Allergies Allergy Verified 03/03/23 00:58 Consultations 03/02/23 23:01 ED Decision to Admit Stat Ordered Studies 03/05/23 11:37 CT abd pelvis wo con Stat Hospital Course (1) Bronchitis: (2) Acute hyperkalemia: (3) Acute kidney injury superimposed on chronic kidney disease: (4) Complex sleep apnea syndrome: (5) Diabetic foot ulcer: (6) Type 2 diabetes mellitus with chronic kidney disease, with long-term current use of insulin: (7) CAD (coronary artery disease): (8) PAD (peripheral artery disease): (9) Morbid obesity: BMI 48 Plan Bronchitis- Cough productive of yellow-green sputum in large quantities Follow sputum culture and sensitivity Chest x-ray negative CT abdomen however showed a chest infiltrate Patient was treated with IV ceftriaxone and azithromycin while in the hospital. Being discharged on p.o. Keflex and azithromycin Clinically improving Nausea/vomiting Patient has been having issues with nausea/vomiting for the last 5 or 6 days He has a low appetite and has not been fearful of vomiting. Has not been eating well at all. No abdominal pain but he says that he does not feel like he is evacuating enough with bowel movements CT abdomen shows constipation after good bowel regimen, patient had bowel movements and his nausea and vomiting resolved. He could have a component of diabetic gastroparesis Continue Zofran and Compazine Acute kidney injury/hyperkalemia on CKD stage III Creatinine 2.43 on admission, with baseline 1.8-2. Today creatinine is 1.9 Status post normal saline 1 L bolus in the ED initial Potassium 5.6 after receiving regular insulin 5 units IV in the ED, and furosemide 20 mg IV , potassium has improved To normal Continue Lokelma 5 g daily discontinue IV fluids Avoid nephrotoxins Diabetes mellitus Complicated by diabetic neuropathy patient takes 70 units of Lantus subcu every morning. He has been advised to lower his dose to 55 units as he had hypoglycemic episodes during the hospital stay. Place on Accu-Cheks with NovoLog SSI Left foot ulcer- Has a clean base, and does not look actively infected Continue to use Aquacel Ag patient has been advised to Follow-up with wound care clinic next week Lumbar degenerative disc disease GERD. Continue Protonix Coronary artery disease BPH with LUTS. Continue Flomax History of cardiopulmonary arrest with successful resuscitation DVT prophylaxis: Heparin Full code Total Time Total Time Spent Total Time Spent (In Minutes): 35 Discharge Plan Discharge Items Patient Disposition: Home - Self-Care Reason For Visit: BRONCHITIS,LEONARDO ON CKD, HYPERKALEMIA Discharge Diagnosis: -Pneumonia /acute bronchitis -Acute kidney injury on CKD -Vomiting due to constipation Activity: Resume your previous activity Non-emergency contact: Primary Care Provider Call non-emergency contact if: you have any medication questions and your symptoms worsen Follow-up/Referrals: Dora Sales MD [Primary Care Provider] - 03/14/23 10:00 am Diet: Carb Consistent or DM2 Addtl Attending Provider Instructions: -Advised to follow-up with PCP in 1 week -Advised to follow-up at the wound care clinic next week -Advised to use a lower dose 55Units of Lantus every morning Pending Studies at Discharge: No Stand-Alone Forms: My [facility] Cleartrip Medications and DC Order Prescriptions: New cephalexin 500 mg capsule 500 mg PO Q8H 2 Days Qty: 6 0RF azithromycin 500 mg tablet 500 mg PO DAILY 2 Days Qty: 2 0RF Rx Instructions: start on day 2 of therapy Continued aspirin 81 mg tablet,chewable 81 mg PO QAM (DME) FreeStyle Remigio 2 [place] Misc See Rx Instructions .Route Qty: 1 0RF Rx Instructions: Use to monitor blood sugars daily (DME) FreeStyle Remigio 2 Sensor Kit See Rx Instructions .Route Qty: 7 3RF Rx Instructions: Change sensor every 14 days metformin 500 mg tablet 500 mg PO BID 90 Days Qty: 180 3RF (DME) Accu-Chek Guide test strips Strip See Rx Instructions .ROUTE .MEDSUPPLY Qty: 100 3RF Rx Instructions: test blood sugar 1 x daily (DME) pen needle, diabetic [BD Ultra-Fine Mini Pen Needle] 31 gauge x 3/16" needle .ROUTE .MEDSUPPLY Qty: 400 3RF Rx Instructions: use 4 needles daily Lokelma 5 gram powder in packet 5 g PO DAILY Qty: 30 2RF Patient Comments: doesn't always take it every day Rx Instructions: 2 HOURS AFTER MEDS GIVEN. pantoprazole [Protonix] 40 mg tablet,delayed release (DR/EC) 40 mg PO BID Qty: 180 2RF tamsulosin 0.4 mg capsule 0.4 mg PO HS Qty: 30 11RF Jardiance 25 mg tablet 25 mg PO QAM Qty: 90 3RF duloxetine [Cymbalta] 20 mg capsule,delayed release(DR/EC) 20 mg PO BID Qty: 180 3RF atorvastatin [Lipitor] 10 mg tablet 10 mg PO HS Qty: 90 3RF furosemide [Lasix] 20 mg tablet 20 mg PO QAM Qty: 90 3RF (DME) lancets [Accu-Chek Fastclix Lancet Drum] Misc See Rx Instructions .ROUTE .MEDSUPPLY Rx Instructions: test blood sugar 1 x daily mecobalamin (vitamin B12) 1,000 mcg lozenge 1,000 mcg PO QAM Rx Instructions: allow to dissolve in mouth OR may chew lightly before swallowing cholecalciferol (vitamin D3) [Vitamin D3] 25 mcg (1,000 unit) Tablet 0 mcg PO DAILY famotidine [Pepcid AC] 20 mg tablet 20 mg PO BID PRN (Reason: Acid Reflux) alum-mag hydroxide-simeth [Mylanta Maximum Strength] 400-400-40 mg/5 mL suspension 10 ml PO TID PRN (Reason: .gi-upset) insulin aspart U-100 [Novolog FlexPen U-100 Insulin] 100 unit/mL (3 mL) insulin pen 0 unit subcut .AM & SUPPER Rx Instructions: PLUS SLIDING SCALE, INJECT 90 UNITS SUBCUTANEOUSLY DAILY Probiotic 10 billion cell Capsule 10,000 mmu cells PO BID Changed insulin glargine [Basaglar KwikPen U-100 Insulin] 100 unit/mL (3 mL) insulin pen 55 unit subcut QAM 30 Days Qty: 16.5 0RF Discharge Orders: Discharge Order (Routine); Ordered 03/07/23 Ordered By: Peter Berrios/Other Patient Handouts: Nutrition for Wound Healing, Managing Type 2 Diabetes, Special Foot Care for Diabetes Admission Data Admit Date/Time: 03/02/23 23:49 Attending Provider: Peter Herron Admit Provider: Luis Crain Primary Care Provider: Dora Sales Other Providers: Luis Crain Other Interventions: Discharge Summary Assessment (RN) Last Done: 03/07/23 11:36 Coding Level of Care Code 70037 INP/OBS DISCH >30 MIN Diagnoses Bronchitis J40 Acute hyperkalemia E87.5 Acute kidney injury superimposed on chronic kidney disease N17.9; N18.9 Complex sleep apnea syndrome G47.31 Diabetic ulcer of left midfoot associated with type 2 diabetes mellitus, with fat layer exposed E11.621; L97.422 Diabetes mellitus type: type 2 Diabetic foot ulcer location: midfoot Laterality: left Non-pressure ulcer stage: with fat layer exposed Type 2 diabetes mellitus with chronic kidney disease, with long-term current use of insulin E11.22; Z79.4 CAD (coronary artery disease) I25.10 PAD (peripheral artery disease) I73.9 Morbid obesity E66.01
== END 2023-03-07 13:32 | disposition home or self-care (01) | DRG 202 ==
LOC: ED 18:25 → SUATTDRO 23:49 → INTOOBSV 23:49 → EDINP 23:49 → 2N 03-03 19:18

== ENCOUNTER 2024-03-13 16:02 | Inpatient (IN) ==
[2024-03-13] MEDS: ceFAZolin 1000MG 1,000 MG/7.5 ML SYR IV STA (16:29)
[2024-03-13 16:35] LABS: iSTAT Creatinine 2.1 mg/dl (0.6-1.3); iSTAT Hemoglobin 9.9 g/dl (14.0-18.0); iSTAT Ionized Calcium 1.15 mmol/l (1.12-1.32); iSTAT Potassium 5.3 mmol/L (3.3-5.0)
[2024-03-13 16:50] LABS: Basophils # (auto) 0.04 K/uL (0.00-0.20); Basophils % (auto) 0.6 %; Eosinophils # (auto) 0.34 K/uL (0.00-0.50); Hematocrit (blood only) 32.2 % (42.0-52.0); Hemoglobin 9.9 g/dl (14.0-18.0); Immature Granulocytes # (auto) 0.04 K/uL (0.01-0.20); Immature Granulocytes % (auto) 0.6 %; Lymphocytes # (auto) 0.83 K/uL (1.20-3.40); Lymphocytes % (auto) 12.2 %; Mean Corpuscular Hemoglobin 26.9 pg (25.0-34.0); Mean Corpuscular Hgb Conc 30.7 g/dL (32.0-36.0); Mean Corpuscular Volume 87.5 fL (80.0-100.0); Monocytes # (auto) 0.58 K/uL (0.11-0.59); Monocytes % (auto) 8.5 %; Neutrophils # (auto) 4.96 K/uL (1.40-6.50); Neutrophils % (auto) 73.1 %; Platelet Count 169 K/uL (130-400); RDW Coefficient of Variation 14.5 % (11.5-14.5); RDW Standard Deviation 46.3 fL (36.4-46.3); Red Blood Count 3.68 M/uL (4.70-6.10); White Blood Count 6.79 K/ul (4.8-10.8)
[2024-03-13 17:02] LABS: BUN Creatinine Ratio 25.3 (10-20); Calcium 9.2 mg/dl (8.6-10.3); Creatinine Clr Calc Pharmacy 58.9 ml/min; Potassium 5.3 mmol/L (3.5-5.1)
[2024-03-13] MEDS ORDERED: PROPOFOL IV EMULSION 10 MG/ML 20 ML VIAL IV ONE (17:19)
[2024-03-13] MEDS ORDERED: ROCURONIUM BROMIDE 10 MG/ML 5 ML VIAL IV ONE (17:19)
[2024-03-13] MEDS ORDERED: fentaNYL citrate PF 100 MCG/2 ML VIAL ONE (17:19)
[2024-03-13] MEDS ORDERED: VANCOMYCIN CONSULT ACTIVE PRN ×2 (17:20→19:54)
--- NOTE | 2024-03-13 17:21 | XRay Report ---
EXAM: Radiograph of the Chest 1 View INDICATION: Right ankle trauma. TECHNIQUE: Frontal view of the chest. COMPARISON: No relevant prior studies available. FINDINGS: Lungs and pleural spaces: There is prominent pulmonary vascular markings right greater than left. No pulmonary edema. No confluent consolidation. Heart: Cardiomegaly. Mediastinum: Normal contour. Bones/joints: No fracture, erosion or dislocation. Soft tissues: No abnormality noted. No radiopaque foreign body noted. Vasculature: Ectatic calcified aorta. Upper abdomen: No abnormality noted. IMPRESSION: There is asymmetric right greater than left increase in pulmonary vascularity and interstitial markings. Consider asymmetric aspiration pneumonitis depending on the mechanism of trauma. ACT 112: Negative or not required by law. Electronically signed by Marguerite Day 03-13-2024 5:21 PM
--- NOTE | 2024-03-13 17:22 | History & Physical Report ---
Date of Service March 13, 2024 Assessment & Plan (1) Open fracture dislocation of right ankle: I discussed the diagnosis and treatment options with him and his at bedside. My recommendation is to go directly to the operating room and do an open irrigation debridement with application of external fixator of the right foot. He understands the risk, benefits, alternatives procedure elected proceed. Time was spent describing the procedure and postop expectations. The decision for surgery was made. We will admit him to the hospital postoperatively. History of Present Illness Chief Complaint: Right open fracture dislocation of the right tibiotalar joint. Primary Care Provider: Dora Sales MD Enrique is a pleasant 68-year-old male who is a longtime diabetic. He has advanced neuropathy of both lower extremities. He has a history of amputations of his left great toe and second toe about 6 years ago. He has been doing with wounds of his right foot as well. He was recently in rehab and has since returned home. He normally ambulates with a walker. He lives in a two-story house with his . Unfortunately he was walking in the living room today when he fell and twisted his right ankle. He sustained an open fracture dislocation of the right tibiotalar joint. He came to the emergency room where x-rays and exam confirmed the diagnosis. Orthopedics was contacted immediately. Allergies Allergy/AdvReac Type Severity Reaction Status Date / Time No Known Allergies Allergy Verified 03/12/24 11:06 Home Medications Medication Instructions Recorded Confirmed Type aspirin 81 mg chewable tablet 81 mg PO QAM 07/26/20 03/01/24 History lancets (Accu-Chek Fastclix Lancet 08/23/20 03/01/24 History Drum) FreeStyle Remigio 2 [place] (flash #1 ea 01/24/21 03/01/24 Rx glucose scanning reader) FreeStyle Remigio 2 Sensor (flash #7 ea 01/24/21 03/01/24 Rx glucose sensor) mecobalamin (vitamin B12) 1,000 1,000 mcg PO QAM 01/17/22 03/01/24 History mcg lozenges aluminum-mag hydroxide-simethicone 10 ml PO TID PRN .gi-upset 03/03/23 03/01/24 History 400 mg-400 mg-40 mg/5 mL oral susp (Mylanta Maximum Strength) insulin glargine 100 unit/mL (3 70 unit subcut QAM 05/12/23 03/01/24 History mL) subcutaneous pen (Basaglar KwikPen U-100 Insulin) metformin 500 mg tablet 500 mg PO BID 90 days #180 tabs 06/24/23 03/01/24 Rx blood sugar diagnostic (Accu-Chek #100 ea 09/09/23 03/01/24 Rx Guide test strips) pantoprazole 40 mg tablet,delayed 40 mg PO BID #180 tabs 09/09/23 03/01/24 Rx release (Protonix) albuterol sulfate 90 mcg/actuation 2 puff inhalation .Q4-6H PRN 11/25/23 03/01/24 Rx aerosol inhaler shortness of breath or wheezing #6.7 grams cyanocobalamin (vitamin B-12) 1,000 mcg PO DAILY 12/26/23 03/01/24 History 1,000 mcg capsule Saccharomyces boulardii 250 mg 250 mg PO BID #60 caps 01/13/24 03/01/24 Rx capsule (Florastor) sodium zirconium cyclosilicate 10 10 g PO DAILY #30 ea 01/29/24 03/01/24 Rx gram oral powder packet Mounjaro 2.5 mg/0.5 mL 2.5 mg (0.5 mL) subcut Q7D #2 mL 02/13/24 03/01/24 Rx subcutaneous pen injector (tirzepatide) tirzepatide 2.5 mg/0.5 mL mg subcut .Weekly 02/20/24 03/01/24 History subcutaneous pen injector (Mounjaro) atorvastatin 10 mg tablet (Lipitor) 10 mg PO HS #90 tabs 02/24/24 03/01/24 Rx duloxetine 20 mg capsule,delayed 20 mg PO BID #180 caps 02/24/24 03/01/24 Rx release (Cymbalta) empagliflozin 25 mg tablet 25 mg PO QAM #90 tabs 02/24/24 03/01/24 Rx (Jardiance) furosemide 20 mg tablet (Lasix) 20 mg PO QAM #90 tabs 02/24/24 03/01/24 Rx insulin aspart U-100 100 unit/mL 80 unit (0.8 mL) subcut DAILY #72 02/24/24 03/01/24 Rx (3 mL) subcutaneous pen (Novolog mL FlexPen U-100 Insulin aspart) pen needle, diabetic 31 gauge x #400 ea 02/24/24 03/01/24 Rx 3/16" (BD Ultra-Fine Mini Pen Needle) tadalafil 2.5 mg tablet 2.5 mg PO DAILY #90 tabs 02/24/24 03/01/24 Rx tamsulosin 0.4 mg capsule 0.4 mg PO HS #30 caps 02/24/24 03/01/24 Rx cholecalciferol (vitamin D3) 25 25 mcg PO DAILY 03/01/24 03/12/24 History mcg (1,000 unit) tablet (Vitamin D3) levofloxacin 500 mg tablet 500 mg PO DAILY 14 days #14 tabs 03/08/24 03/12/24 Rx oxycodone 5 mg tablet 5 mg PO Q6H PRN pain #12 tabs 03/08/24 03/12/24 Rx levofloxacin 500 mg tablet 500 mg PO DAILY 14 days #14 tabs 03/09/24 03/12/24 Rx oxycodone 5 mg tablet 5 mg PO Q6H PRN pain #12 tabs 03/09/24 03/12/24 Rx Past Med/Surg History Problem List (Updated 03/13/24 @ 17:25 by Chepe Daly DO) Open fracture dislocation of right ankle Neuropathy (Acute) Cellulitis of foot, right (Acute) [place] (dyspnea on exertion) Venous ulcer of right leg Diabetic foot ulcer (Acute) Chronic constipation Chronic venous insufficiency Urinary urgency Diabetic nephropathy associated with type 2 diabetes mellitus CKD stage 3 due to type 2 diabetes mellitus Diabetes type 2, controlled Class 3 obesity Status post partial amputation of foot Complex sleep apnea syndrome Nocturnal hypoxemia Psoriasis (Chronic) Nonproliferative diabetic retinopathy (Chronic) Disc degeneration, lumbar (Chronic) Diabetes mellitus with diabetic polyneuropathy (Chronic) Depression (Chronic) GERD (gastroesophageal reflux disease) (Chronic) CAD (coronary artery disease) (Chronic) Chronic, heavily calcified severe mid LAD disease (70 to 80% by IVUS) per 11/05/21 cardiac cath- medically managed Hypertension (Chronic) PAD (peripheral artery disease) (Chronic) Dyslipidemia (Chronic) CKD (chronic kidney disease) (Chronic) Cardiopulmonary arrest with successful resuscitation (Chronic) - 11/06/2021, [facility]>"in to have a PICC line placed for abx tx, flatlined" - Etiology of arrest seems unclear- seems that this was a PEA arrest per 11/06/21 cardio note BPH loc w urin obs/LUTS (Chronic Unknown) Medical History Hx of back injury Hx MRSA infection History of colon polyps Surgical History H/O kyphoplasty (2022) following L1 burst fracture Status post amputation of toe of left foot History of cardiac cath following an unexplained cardiac arrest>per medical record>11/05/21, [facility], no stents Status post amputation of left great toe History of incision and drainage Hx of I&D of mendel-rectal abscess History of cataract surgery bilt History of cholecystectomy History of tooth extraction History of colonoscopy Colonoscopy 01/21/[address] Garg. History of adenoidectomy History of tonsillectomy Status post uvulopalatopharyngoplasty S/P foot surgery, left Family History Mother Family history of diabetes mellitus Father History of alcoholism History of liver cancer Sister Cancer Denies family history of Ovarian cancer Prostate cancer Crohn's disease Breast cancer Colorectal cancer Social History Smoking Status: Former smoker Tobacco Type: Declines Age Started Using Tobacco: 18; Age Quit Using Tobacco: 48; packs per day: 1.5; Second Hand Exposure: No; Do You Dip or Chew Tobacco: No; Hx Alcohol Use: Yes Alcohol type: beer Alcohol Intake Frequency: Monthly or Less Hx Substance Use: No Preferred Language: Amharic Communication Ability: Effective Visual Impairment: No Limitations Hearing Ability: Normal Metal Sprayer Required: No Beliefs That Will Affect Care: None marital status: Current Living Situation: Spouse Current Living Situation Comment: Lives with and dog current occupational status: employed 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 Feels Safe at Home: Yes Childhood Exposure to Second-Hand Smoke: Yes Diet: regular Diet Comment: "tries to feed me right, but sometimes it doesn't always happen" caffeine: Yes during the past year weight has: remained stable Physical Activity Frequency: Does not Exercise Seatbelt Use: never Do you think of yourself as: straight/heterosexual Assistive Devices: None Review of Systems All systems reviewed & are unremarkable except as noted in HPI & below. Physical Exam On physical examination of the right ankle, there is a large open wound along the medial aspect. He does have a little bit of motion of his toes. The nurses were able to palpate a dorsalis pedis pulse. Constitutional WD/WN, vitals as above Eyes PERRL, conjunctivae normal, anicteric sclerae ENMT external ear and nose normal, oropharynx normal Neck trachea midline, no thyromegaly Respiratory normal respiratory effort Cardiovascular RRR, no murmur, no edema Gastrointestinal (Abdomen) normal bowel sounds, soft, nontender, no hepatosplenomegaly Psychiatric A+Ox3, euthymic affect Results & Data Results & Data Laboratory Results . Diagnostic Findings X-rays of the right ankle show an open fracture dislocation of the right tibiotalar joint.. PG Care Time/CCT Total # of Minutes Spent Total Time Spent with Patient: Total time spent is greater than 50% in coordination of care (as documented) at patient's floor/unit and/or counseling patient: Coding Level of Care Code 59876 INT INP/OBS CARE 3MIN (57 - DECISION FOR SURGERY) Diagnoses Open fracture dislocation of right ankle S82.891B
[2024-03-13] MEDS ORDERED: HYDROmorphone INJ 2 MG/ML SYR/VIAL IV PRN (17:39)
[2024-03-13] MEDS ORDERED: ATROPINE SULFATE 0.1 MG/ML 10ML SYR IV PRN (17:39)
[2024-03-13] MEDS ORDERED: ePHEDrine sulfate 50 MG/ML AMP IV PRN (17:39)
--- NOTE | 2024-03-13 17:39 | Anesthesiology Consultation ---
Date of Service March 13, 2024 Assessment & Plan ASA [id number] Proposed Anesthesia Anesthesia Type: General Risk / Benefits Reviewed With: PT / POA / Parent / Guardian, Accepts Plan and Informed Consent Obtained Additional Comments: pt is not npo but the case is an emergency. will rsi with high dose rocuronium because of elevated K. glidescope. reviewed cardiac and nephrology note History Surgery Operation Date: 03/13/24 18:00 Proposed Procedures p External Fixator Application - Chepe Daly DO Height/Weight Height: 5 ft 9 in Weight: 168 kg Allergies Allergy/AdvReac Type Severity Reaction Status Date / Time No Known Allergies Allergy Verified 03/12/24 11:06 Medications Home Medications Medication Instructions Recorded Confirmed Last Taken aspirin 81 mg chewable tablet 81 mg PO QAM 07/26/20 03/01/24 04/01/22 lancets (Accu-Chek Fastclix Lancet 08/23/20 03/01/24 Unknown Drum) FreeStyle Remigio 2 [place] (flash #1 ea 01/24/21 03/01/24 Unknown glucose scanning reader) FreeStyle Remigio 2 Sensor (flash #7 ea 01/24/21 03/01/24 Unknown glucose sensor) mecobalamin (vitamin B12) 1,000 1,000 mcg PO QAM 01/17/22 03/01/24 04/01/22 mcg lozenges aluminum-mag hydroxide-simethicone 10 ml PO TID PRN .gi-upset 03/03/23 03/01/24 Unknown 400 mg-400 mg-40 mg/5 mL oral susp (Mylanta Maximum Strength) insulin glargine 100 unit/mL (3 70 unit subcut QAM 05/12/23 03/01/24 Unknown mL) subcutaneous pen (Basaglar KwikPen U-100 Insulin) metformin 500 mg tablet 500 mg PO BID 90 days #180 tabs 06/24/23 03/01/24 Unknown blood sugar diagnostic (Accu-Chek #100 ea 09/09/23 03/01/24 Unknown Guide test strips) pantoprazole 40 mg tablet,delayed 40 mg PO BID #180 tabs 09/09/23 03/01/24 Unknown release (Protonix) albuterol sulfate 90 mcg/actuation 2 puff inhalation .Q4-6H PRN 11/25/23 03/01/24 Unknown aerosol inhaler shortness of breath or wheezing #6.7 grams cyanocobalamin (vitamin B-12) 1,000 mcg PO DAILY 12/26/23 03/01/24 Unknown 1,000 mcg capsule Saccharomyces boulardii 250 mg 250 mg PO BID #60 caps 01/13/24 03/01/24 Unknown capsule (Florastor) sodium zirconium cyclosilicate 10 10 g PO DAILY #30 ea 01/29/24 03/01/24 Unknown gram oral powder packet Mounjaro 2.5 mg/0.5 mL 2.5 mg (0.5 mL) subcut Q7D #2 mL 02/13/24 03/01/24 Unknown subcutaneous pen injector (tirzepatide) tirzepatide 2.5 mg/0.5 mL mg subcut .Weekly 02/20/24 03/01/24 Unknown subcutaneous pen injector (Mounjaro) atorvastatin 10 mg tablet (Lipitor) 10 mg PO HS #90 tabs 02/24/24 03/01/24 Unknown duloxetine 20 mg capsule,delayed 20 mg PO BID #180 caps 02/24/24 03/01/24 Unknown release (Cymbalta) empagliflozin 25 mg tablet 25 mg PO QAM #90 tabs 02/24/24 03/01/24 Unknown (Jardiance) furosemide 20 mg tablet (Lasix) 20 mg PO QAM #90 tabs 02/24/24 03/01/24 Unknown insulin aspart U-100 100 unit/mL 80 unit (0.8 mL) subcut DAILY #72 02/24/24 03/01/24 Unknown (3 mL) subcutaneous pen (Novolog mL FlexPen U-100 Insulin aspart) pen needle, diabetic 31 gauge x #400 ea 02/24/24 03/01/24 Unknown 3/16" (BD Ultra-Fine Mini Pen Needle) tadalafil 2.5 mg tablet 2.5 mg PO DAILY #90 tabs 02/24/24 03/01/24 Unknown tamsulosin 0.4 mg capsule 0.4 mg PO HS #30 caps 02/24/24 03/01/24 Unknown cholecalciferol (vitamin D3) 25 25 mcg PO DAILY 03/01/24 03/12/24 Unknown mcg (1,000 unit) tablet (Vitamin D3) levofloxacin 500 mg tablet 500 mg PO DAILY 14 days #14 tabs 03/08/24 03/12/24 Unknown oxycodone 5 mg tablet 5 mg PO Q6H PRN pain #12 tabs 03/08/24 03/12/24 Unknown levofloxacin 500 mg tablet 500 mg PO DAILY 14 days #14 tabs 03/09/24 03/12/24 Unknown oxycodone 5 mg tablet 5 mg PO Q6H PRN pain #12 tabs 03/09/24 03/12/24 Unknown NPO Date Last Intake of Fluids: 03/13/24 Time Last Intake of Fluids: 13:00 Last Intake of Fluids Comment: water Date Last Intake of Solids: 03/13/24 Time Last Intake of Solids: 11:00 Last Intake of Solids Comment: cupcake fig bar Past Medical History Medical History Hx of back injury Hx MRSA infection History of colon polyps Exercise / Class Metabolic Activity II 4-5 Yardwork/Stairs/Walk up hill Past Family History Family History Mother Family history of diabetes mellitus Father History of alcoholism History of liver cancer Sister Cancer Denies family history of Ovarian cancer Prostate cancer Crohn's disease Breast cancer Colorectal cancer Past Surgical History Surgical History H/O kyphoplasty (2022) following L1 burst fracture Status post amputation of toe of left foot History of cardiac cath following an unexplained cardiac arrest>per medical record>11/05/21, [facility], no stents Status post amputation of left great toe History of incision and drainage Hx of I&D of mendel-rectal abscess History of cataract surgery bilt History of cholecystectomy History of tooth extraction History of colonoscopy Colonoscopy 01/21/[address] Garg. History of adenoidectomy History of tonsillectomy Status post uvulopalatopharyngoplasty S/P foot surgery, left Past Anesthesia History No Hx of Anesthesia Complications and No Family Hx of Anesthesia Complications History of PONV No Hx of PONV and No Hx of Motion Sickness Social History Smoking Status: Former smoker tobacco type: cigarettes Do You Dip or Chew Tobacco: No Hx Alcohol Use: Yes Alcohol type: beer alcohol intake frequency: holidays/special occasions only Hx Substance Use: No substance use type: does not use Review of Systems denies fever/cough/ colds/ chest pain/ +SOB/ CHRISTINA denies CHRISTINA Physical Exam Vital Signs Last Vital Signs Temp 36.8 C 03/13/24 16:00 Pulse 67 03/13/24 17:00 Resp 18 03/13/24 17:00 BP 170/81 H 03/13/24 17:00 Pulse Ox 98 03/13/24 17:00 O2 Del Method Room Air 03/13/24 17:00 O2 Flow Rate 98 03/13/24 16:00 ENMT Mouth: no TMJ abnormality and no dentition abnormality Thyromental Distance: > or= 3.5 Finger Breadths Mallampati Class: II Neck + facial hair; neck extension not limited Respiratory normal respiratory effort; no respiratory distress Auscultation: lungs clear to auscultation bilaterally Cardiovascular Rate/Rhythm: regular rate and regular rhythm Neurologic moves all extremities Psychiatric Orientation: alert and oriented x 3 Testing Laboratory Results 03/13/24 16:19 03/13/24 16:19 03/13/24 16:23 POC Glucose (other) 136 H
[2024-03-13] MEDS ORDERED: KETAMINE HCL 10MG/ML SYR ONE (17:49)
[2024-03-13] MEDS ORDERED: ePHEDrine sulfate 50 MG/5 ML SYR ONE (18:04)
[2024-03-13] MEDS: VANCOMYCIN HCL 2,000 MG in SODIUM CHLORIDE 0.9% 500 ML IV ONE (18:13)
[2024-03-13] MEDS ORDERED: ALBUTEROL HFA 8 GM INHALER INH ONE (18:43)
[2024-03-13] MEDS ORDERED: SUGAMMADEX SODIUM 200 MG/2 ML VIAL IV ONE (18:52)
[2024-03-13] MEDS: BUPIVACAINE 0.5 % 5 MG/1 ML MPF 30ML VIAL ONE (19:01)
[2024-03-13] MEDS ORDERED: ONDANSETRON INJ 2 MG/ML 2 ML VIAL ONE (19:03)
--- NOTE | 2024-03-13 19:16 | Emergency Department Note ---
Impression & Plan Open fracture dislocation of ankle, Diabetic neuropathy ED Provider Note NAME: RICCI BEAR AGE: 68 SEX: M : 1955 ARRIVES VIA: Ambulance INFORMANT: Patient, ED PROVIDER(S): Nica Frazier MD CHIEF COMPLAINT: Open ankle fracture HPI: This is a 68-year-old male presenting for open ankle fracture. Patient states that he was in his living room slipped on linoleum at around 3 PM. He noted blood to his right ankle. EMS was called and note that he does have a open ankle fracture on the right side. Patient feels no current pain due to diabetic neuropathy. He notes he does not know what his ankle looks like. Is not on any blood thinners. He did fall onto his hip but did not hit his head. No nausea, vomiting, confusion at this time. ROS: See above HPI for pertinent positives & negatives. A total of 10 systems reviewed and were otherwise negative. PAST MEDICAL HISTORY: See Below PAST SURGICAL HISTORY: See Below FAMILY HISTORY: See Below SOCIAL HISTORY: See Below HOME MEDICATIONS: See Below ALLERGIES: See Below VITALS: See Below PHYSICAL EXAMINATION: General: Chronic unwell appearing, elevated BMI Head: Normocephalic and atraumatic Eyes: Normal inspection, extraocular muscles intact Ear, nose, throat: Normal external exam Neck: Normal range of motion Respiratory: lungs clear to auscultation bilaterally Cardiovascular: Regular rate/rhythm, no murmur GI: soft, nontender, no guarding or rebound Extremities: Articular surface of tibia protruding out of right ankle medially, intact DP pulse, slow ooze, no arterial bleeding is noted Neuro: The patient awake and alert, appropriately conversive, no focal deficits, symmetric faces Skin: Warm, dry, and intact MEDICAL DECISION MAKING: This is 68-year-old male present for open ankle fracture. Patient has obvious tibia protruding from ankle. Pulses do appear intact patient is able to move the ankle and is currently tapping his foot. -Patient given 2 g of Ancef by EMS. Will give 1 more gram due to patient's weight. -Patient required no pain medication at the time as he is diabetic neuropathy and does not feel the current symptoms. -X-ray of the right ankle as interpreted by me reveals distal fibular fracture, tibial displacement with protrusion outside of skin -Imaging and x-rays sent to Dr. Daly. He will take the patient to the OR for emergent washout and reduction at this time. -Chest Xray independently interpreted by me showing no pneumothorax, focal opacity, or pleural effusions. Official radiology read reports asymmetric right-sided pulmonary vascular markings Differential diagnosis: Tib-fib fracture, open ankle fracture, hip fracture, internal hemorrhage Diagnostics interpreted by me: ECG: None Cardiac Monitoring: An order was placed for continuous cardiac monitoring. The monitor shows a rate of 67 with sinus rhythm. Critical Care Note: I have personally spent 45 minutes of critical care time in the direct management of this patient. This includes bedside care, interpretation of diagnostic studies, and testing, discussion with consultants, patient, and family members, and other required patient management activities. This 45 minutes is in excess of all separately billable procedures. Past Med/Surg History Problem List (Updated 03/13/24 @ 19:16 by Nica Frazier MD) Diabetic neuropathy (Acute) Open fracture dislocation of ankle (Acute) Open fracture dislocation of right ankle Neuropathy (Acute) Cellulitis of foot, right (Acute) WYNN (dyspnea on exertion) Venous ulcer of right leg Diabetic foot ulcer (Acute) Chronic constipation Chronic venous insufficiency Urinary urgency Diabetic nephropathy associated with type 2 diabetes mellitus CKD stage 3 due to type 2 diabetes mellitus Diabetes type 2, controlled Class 3 obesity Status post partial amputation of foot Complex sleep apnea syndrome Nocturnal hypoxemia Psoriasis (Chronic) Nonproliferative diabetic retinopathy (Chronic) Disc degeneration, lumbar (Chronic) Diabetes mellitus with diabetic polyneuropathy (Chronic) Depression (Chronic) GERD (gastroesophageal reflux disease) (Chronic) CAD (coronary artery disease) (Chronic) Chronic, heavily calcified severe mid LAD disease (70 to 80% by IVUS) per 11/05/21 cardiac cath- medically managed Hypertension (Chronic) PAD (peripheral artery disease) (Chronic) Dyslipidemia (Chronic) CKD (chronic kidney disease) (Chronic) Cardiopulmonary arrest with successful resuscitation (Chronic) - 11/06/2021, [facility]>"in to have a PICC line placed for abx tx, flatlined" - Etiology of arrest seems unclear- seems that this was a PEA arrest per 11/06/21 cardio note BPH loc w urin obs/LUTS (Chronic Unknown) Medical History Hx of back injury Hx MRSA infection History of colon polyps Surgical History H/O kyphoplasty (2022) following L1 burst fracture Status post amputation of toe of left foot History of cardiac cath following an unexplained cardiac arrest>per medical record>11/05/21, [facility], no stents Status post amputation of left great toe History of incision and drainage Hx of I&D of mendel-rectal abscess History of cataract surgery bilt History of cholecystectomy History of tooth extraction History of colonoscopy Colonoscopy 01/21/[address] Garg. History of adenoidectomy History of tonsillectomy Status post uvulopalatopharyngoplasty S/P foot surgery, left Family History Mother Family history of diabetes mellitus Father History of alcoholism History of liver cancer Sister Cancer Denies family history of Ovarian cancer Prostate cancer Crohn's disease Breast cancer Colorectal cancer Social History Smoking Status: Former smoker Tobacco Type: Declines Age Started Using Tobacco: 18; Age Quit Using Tobacco: 48; packs per day: 1.5; Second Hand Exposure: No; Do You Dip or Chew Tobacco: No; Hx Alcohol Use: Yes Alcohol type: beer Alcohol Intake Frequency: Monthly or Less Hx Substance Use: No Preferred Language: Uzbek Communication Ability: Effective Visual Impairment: No Limitations Hearing Ability: Normal Epic Willow Analyst Required: No Beliefs That Will Affect Care: None marital status: Current Living Situation: Spouse Current Living Situation Comment: Lives with and dog current occupational status: employed 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 Feels Safe at Home: Yes Childhood Exposure to Second-Hand Smoke: Yes Diet: regular Diet Comment: "tries to feed me right, but sometimes it doesn't always happen" caffeine: Yes during the past year weight has: remained stable Physical Activity Frequency: Does not Exercise Seatbelt Use: never Do you think of yourself as: straight/heterosexual Assistive Devices: None Allergies Allergies Allergy/AdvReac Type Severity Reaction Status Date / Time No Known Allergies Allergy Verified 03/12/24 11:06 Home Meds Home Medications Medication Instructions Recorded Confirmed aspirin 81 mg chewable tablet 81 mg PO QAM 07/26/20 03/01/24 lancets (Accu-Chek Fastclix Lancet 08/23/20 03/01/24 Drum) mecobalamin (vitamin B12) 1,000 1,000 mcg PO QAM 01/17/22 03/01/24 mcg lozenges aluminum-mag hydroxide-simethicone 10 ml PO TID PRN .gi-upset 03/03/23 03/01/24 400 mg-400 mg-40 mg/5 mL oral susp (Mylanta Maximum Strength) insulin glargine 100 unit/mL (3 70 unit subcut QAM 05/12/23 03/01/24 mL) subcutaneous pen (Basaglar KwikPen U-100 Insulin) cyanocobalamin (vitamin B-12) 1,000 mcg PO DAILY 12/26/23 03/01/24 1,000 mcg capsule tirzepatide 2.5 mg/0.5 mL mg subcut .Weekly 02/20/24 03/01/24 subcutaneous pen injector (Mounjaro) cholecalciferol (vitamin D3) 25 25 mcg PO DAILY 03/01/24 03/12/24 mcg (1,000 unit) tablet (Vitamin D3) Previous Rx's Medication Instructions Recorded FreeStyle Remigio 2 [place] (flash #1 ea 01/24/21 glucose scanning reader) FreeStyle Remigio 2 Sensor (flash #7 ea 01/24/21 glucose sensor) metformin 500 mg tablet 500 mg PO BID 90 days #180 tabs 06/24/23 blood sugar diagnostic (Accu-Chek #100 ea 09/09/23 Guide test strips) pantoprazole 40 mg tablet,delayed 40 mg PO BID #180 tabs 09/09/23 release (Protonix) albuterol sulfate 90 mcg/actuation 2 puff inhalation .Q4-6H PRN 11/25/23 aerosol inhaler shortness of breath or wheezing #6.7 grams Saccharomyces boulardii 250 mg 250 mg PO BID #60 caps 01/13/24 capsule (Florastor) sodium zirconium cyclosilicate 10 10 g PO DAILY #30 ea 01/29/24 gram oral powder packet Mounjaro 2.5 mg/0.5 mL 2.5 mg (0.5 mL) subcut Q7D #2 mL 11/08/24 subcutaneous pen injector (tirzepatide) atorvastatin 10 mg tablet (Lipitor) 10 mg PO HS #90 tabs 02/24/24 duloxetine 20 mg capsule,delayed 20 mg PO BID #180 caps 02/24/24 release (Cymbalta) empagliflozin 25 mg tablet 25 mg PO QAM #90 tabs 02/24/24 (Jardiance) furosemide 20 mg tablet (Lasix) 20 mg PO QAM #90 tabs 02/24/24 insulin aspart U-100 100 unit/mL 80 unit (0.8 mL) subcut DAILY #72 02/24/24 (3 mL) subcutaneous pen (Novolog mL FlexPen U-100 Insulin aspart) pen needle, diabetic 31 gauge x #400 ea 02/24/2406/20" (BD Ultra-Fine Mini Pen Needle) tadalafil 2.5 mg tablet 2.5 mg PO DAILY #90 tabs 02/24/24 tamsulosin 0.4 mg capsule 0.4 mg PO HS #30 caps 02/24/24 levofloxacin 500 mg tablet 500 mg PO DAILY 14 days #14 tabs 03/08/24 oxycodone 5 mg tablet 5 mg PO Q6H PRN pain #12 tabs 03/08/24 levofloxacin 500 mg tablet 500 mg PO DAILY 14 days #14 tabs 03/09/24 oxycodone 5 mg tablet 5 mg PO Q6H PRN pain #12 tabs 03/09/24 Results & Data (ED) Vital Signs Vital Signs - 24 hr 03/13/24 16:00 03/13/24 16:00 03/13/24 16:33 Temperature 36.9 C 36.8 C Temperature Source Oral Pulse Rate 68 98 H 72 Pulse Rate [Apical] Respiratory Rate 18 18 Respiratory Effort / Characteristics Non-Labored Spontaneous Respiratory Depth Normal Blood Pressure 139/74 139/74 Blood Pressure [Right Arm] Blood Pressure Mean 95 Blood Pressure Mean [Right Arm] Pulse Oximetry 99 97 Oxygen Delivery Method Room Air Room Air Oxygen Flow Rate 98 Sepsis Recent Fever Within 48 Hours No Sepsis New/Unexplained Change in Mental Status No Sepsis Action Taken by Nursing No Action Required 03/13/24 17:00 Temperature Temperature Source Pulse Rate Pulse Rate [Apical] 67 Respiratory Rate 18 Respiratory Effort / Characteristics Respiratory Depth Blood Pressure Blood Pressure [Right Arm] 170/81 H Blood Pressure Mean Blood Pressure Mean [Right Arm] 110 Pulse Oximetry 98 Oxygen Delivery Method Room Air Oxygen Flow Rate Sepsis Recent Fever Within 48 Hours Sepsis New/Unexplained Change in Mental Status Sepsis Action Taken by Nursing Laboratory Data 03/13/24 16:19 03/13/24 16:19 Lab Results 03/13/24 03/13/24 03/13/24 Range/Units 16:19 16:23 18:44 WBC 6.79 (4.8-10.8) K/ul RBC 3.68 L (4.70-6.10) M/uL Hgb 9.9 L (14.0-18.0) g/dl POC Hgb 9.9 L (14.0-18.0) g/dl Hct 32.2 L (42.0-52.0) % POC Hct 29 L (42-52) % MCV 87.5 (80.0-100.0) fL MCH 26.9 (25.0-34.0) pg MCHC 30.7 L (32.0-36.0) g/dL RDW Std Deviation 46.3 (36.4-46.3) fL RDW Coeff of Mejia 14.5 (11.5-14.5) % Plt Count 169 (130-400) K/uL MPV 9.0 L (9.4-12.4) fL Immature Gran % (Auto) 0.6 % Neut % (Auto) 73.1 % Lymph % (Auto) 12.2 % [place] % (Auto) 8.5 % Eos % (Auto) 5.0 % Baso % (Auto) 0.6 % Neut # (Auto) 4.96 (1.40-6.50) K/uL Lymph # (Auto) 0.83 L (1.20-3.40) K/uL [place] # (Auto) 0.58 (0.11-0.59) K/uL Eos # (Auto) 0.34 (0.00-0.50) K/uL Baso # (Auto) 0.04 (0.00-0.20) K/uL Immature Gran # (Auto) 0.04 (0.01-0.20) K/uL POC Sodium 140 (135-144) mmol/L Sodium 140 (136-145) mmol/L POC Potassium 5.3 H (3.3-5.0) mmol/L Potassium 5.3 H (3.5-5.1) mmol/L POC Chloride 106 (101-112) mmol/L Chloride 105 (98-107) mmol/L Carbon Dioxide 28 (21-32) mmol/L POC Total CO2 26 (24-31) mmol/L Anion Gap 7 (3-11) POC Anion Gap 14.0 L (16-25) mmol/L POC BUN 44 H (7-18) mg/dl BUN 47 H (6-23) mg/dl Creatinine 1.86 H (0.6-1.4) mg/dl POC Creatinine 2.1 H (0.6-1.3) mg/dl Est Cr Clr Drug Dosing 58.9 ml/min eGFR 38.93 BUN/Creatinine Ratio 25.3 H (10-20) Glucose 144 H (70-99(Fasting)) mg/dl POC Glucose 157 H (70-99) mg/dl POC Glucose (other) 136 H (70-99) mg/dl Calcium 9.2 (8.6-10.3) mg/dl POC Ioniz Calcium Wen 1.15 (1.12-1.32) mmol/l Administered Medications Vancomycin HCl 2,000 mg/ (Sodium Chloride) 540 mls @ 200 mls/hr IV PREOP ONE Stop: 03/13/24 20:11 Last Admin: 03/13/24 18:13 Dose: 200 mls/hr Documented By: [id number] Discontinued Medications Bupivacaine HCl (Bupivacaine 0.5 % 5 Mg/1 Ml Mpf 30ml Vial) Confirm Administered Dose 30 ml .ROUTE .STK-MED ONE Stop: 03/13/24 17:05 Last Admin: 03/13/24 19:01 Dose: Not Given Documented By: SRAVANTHI Cefazolin Sodium (Ancef 1000mg) 1,000 mg in 7.5 mls @ 2.5 mls/min IV NOW STA Stop: 03/13/24 16:21 Last Admin: 03/13/24 16:29 Dose: 2.5 mls/min Documented By: JOSE DANIEL Imaging Data Radiologist's Impression: Chest X-Ray 03/13/24 16:16 EXAM: Radiograph of the Chest 1 View INDICATION: Right ankle trauma. TECHNIQUE: Frontal view of the chest. COMPARISON: No relevant prior studies available. FINDINGS: Lungs and pleural spaces: There is prominent pulmonary vascular markings right greater than left. No pulmonary edema. No confluent consolidation. Heart: Cardiomegaly. Mediastinum: Normal contour. Bones/joints: No fracture, erosion or dislocation. Soft tissues: No abnormality noted. No radiopaque foreign body noted. Vasculature: Ectatic calcified aorta. Upper abdomen: No abnormality noted. IMPRESSION: There is asymmetric right greater than left increase in pulmonary vascularity and interstitial markings. Consider asymmetric aspiration pneumonitis depending on the mechanism of trauma. ACT 112: Negative or not required by law. Electronically signed by Marguerite Day 03-13-2024 5:21 PM Discharge Plan Visit Data Chief Complaint: Trauma Stated Complaint: FALL, COMPOUND FX ANKLE ED Provider: Nica Frazier Discharge Problem: Open fracture dislocation of ankle, Diabetic neuropathy Patient Disposition: Admitted As Inpatient Discharge Instructions Interventions: ED Discharge Assessment Last Done: 03/13/24 17:31
[2024-03-13] MEDS: ONDANSETRON INJ 2 MG/ML 2 ML VIAL IV PRN ×2 (19:32→22:27)
--- NOTE | 2024-03-13 19:38 | Anesthesiology Progress Note ---
Date of Service March 13, 2024 Anesthesia Post Procedure Vital Signs Vital Signs: Temp Pulse Pulse Resp BP BP Pulse Ox 03/13/24 17:00 67 18 170/81 H 98 03/13/24 16:33 72 03/13/24 16:00 36.8 C 98 H 18 139/74 97 03/13/24 16:00 36.9 C 68 18 139/74 99 O2 Del Method O2 Flow Rate 03/13/24 17:00 Room Air 03/13/24 16:33 03/13/24 16:00 Room Air 98 03/13/24 16:00 Room Air Transfer of Care Handoff Completed per policy Notes Mental Status: alert / awake / arousable and participated in evaluation Patient Amnestic to Procedure: Yes Nausea / Vomiting: adequately controlled Pain: adequately controlled Airway Patency, RR, SpO2: stable & adequate BP & HR: stable & adequate Hydration State: stable & adequate Anesthetic Complications: no major complications apparent and Pt Satisfied with anesthetic care
--- NOTE | 2024-03-13 19:46 | Operative Report ---
PG Post Operative Report Pre & Post Diagnosis Operation Date: 03/13/24 18:00 Pre-Op Diagnosis: Right open fracture dislocation of the right tibiotalar joint Post-Op Diagnosis: Right open fracture dislocation of the right tibiotalar joint I identified the patient and participated in the time-out.: Yes Procedure Operation Date: 03/13/24 18:00 Actual Procedures p Irrigation and Debridment with Application External Fixator Right Foot(Right) - Chepe Daly DO Surgeon Chepe Daly DO Cyber Operator None Estimated Blood Loss 10 Findings Consistent with Post-Op Diagnosis Specimens None Description of Procedure On March 13, 2024 Enrique was brought from the emergency room to the operating room. The operative extremity identified and signed. He was given preoperative antibiotics. He was taken back to the operating room and placed under general anesthesia on the hospital bed. He was then transferred to the operating room table. The ankle was reduced. The right leg was prepped and draped sterile fashion. A timeout was done. The patient and the operative extremity was properly identified. The ankle wound was opened back up. There was a complete rupture of the entire deltoid ligament. The tibialis anterior seem to be intact. I could feel the groove for the posterior tibial tendon but the posterior tibial tendon was absent. Portions of the deltoid ligament were pulled out of the joint. The joint was subluxated and the joint was irrigated with a total of 6 L of normal saline solution by pulse lavage. Care was taken to debride a narcotic appearing tissue. Time was spent doing a vigorous irrigation. Once the wound was cleaned the ankle was carefully reduced. Time was spent ensuring that tendons and li gaments were out of the joint. Once the ankle was reduced and external fixator was applied. 2 guidepins were placed in the crest of the proximal tibia. A single pin was placed to the calcaneus. A Synthes delta frame was then constructed. Once the frame was constructed the ankle was reduced under fluoroscopy and the clamps were tightened. I was happy with the overall reduction. The wound was once again irrigated with 3 L of normal saline solution by pulse lavage. This was a total of 9 L of normal saline solution. The incision was then closed with 2-0 nylon suture. Soft dressings were placed. He was then extubated and transferred back to a hospital bed. He was taken to the postanesthesia care unit in stable condition. He tolerated the procedure well. I attest to the content of the Intraoperative Record and any orders documented therein. Any exceptions are noted below.
[2024-03-13] MEDS ORDERED: VANCOMYCIN HCL 1,000 MG/270 ML BAG IV SCH (20:00)
[2024-03-13] MEDS ORDERED: ALBUTEROL HFA 8 GM INHALER INH PRN (20:38)
[2024-03-13] MEDS ORDERED: BLOOD SUGAR DIAGNOSTIC SCH (20:38)
[2024-03-13] MEDS: DULoxetine HCL 20 MG CAP PO SCH (22:20)
[2024-03-13] MEDS: ATORVASTATIN 10 MG TAB PO SCH (22:20)
[2024-03-13] MEDS: PANTOprazole 40 MG TAB PO SCH (22:20)
[2024-03-13] MEDS: APIXABAN 2.5 MG TAB PO SCH (22:21)
[2024-03-13] MEDS: TAMSULOSIN HCL 0.4 MG CAP PO SCH (22:22)
[2024-03-13] MEDS: oxyCODONE/ACETAMINOPHEN 5mg/325mg TAB PO PRN (22:27)
[2024-03-13] MEDS ORDERED: GLUCAGON FOR INJ 1 MG VIAL SQ PRN (22:45)
[2024-03-13] MEDS ORDERED: GLUCOSE 10 TAB/TUBE PO PRN (22:45)
[2024-03-13] MEDS ORDERED: GLUCOSE 40% GEL 15 GM TUBE PO PRN (22:45)
[2024-03-13] MEDS ORDERED: DEXTROSE 50% 50 ML SYRINGE IV PRN (22:45)
[2024-03-14] MEDS: INSULIN ASPART PER UNIT CHARGE SC SCH (00:44)
[2024-03-14] MEDS: ONDANSETRON INJ 2 MG/ML 2 ML VIAL ONE (00:45)
[2024-03-14] MEDS: SACCHAROMYCES BOULARDII 250 MG CAP PO SCH (00:46)
[2024-03-14] MEDS: MoRPHine SULFATE 2 MG/ML CARP IV PRN (01:30)
[2024-03-14] MEDS: [UNRECOGNIZED DRUG - REMARK] SCH (02:24)
[2024-03-14] MEDS ORDERED: VANCOMYCIN HCL 1,000 MG/270 ML BAG IV SCH (06:00)
--- NOTE | 2024-03-14 07:36 | Fluoroscopy Report ---
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 FLUOROSCOPY TIME: 53 seconds FLUOROSCOPY IMAGES: 3 EXPOSURE DOSE: 2.94 mGy FINDINGS: Partially imaged screw is noted within the calcaneus. There is improved alignment of the ac [place] fracture dislocation of the ankle on the images provided. IMPRESSION: Fluoroscopic assistance as above. ACT 112: Negative or not required by law. Electronically signed by: Giovanni Moreno M.D. 03/14/2024 7:35 AM
--- NOTE | 2024-03-14 07:38 | Hospitalist Progress Note ---
Date of Service March 14, 2024 Assessment & Plan (1) Open fracture dislocation of ankle: Plan: Sustained the open fracture dislocation taken to the operating room on [address] Chepe Daly for ORIF and washout (2) Diabetic nephropathy associated with type 2 diabetes mellitus: Plan: this patient is on many medications including insulin Mounjaro metformin he will be reduced to basal bolus insulin while in the hospital prehospital osteomyelitis of feet(?), pt was on levaquin, has seen Dr Mccray in the past, will image feet with MRI and continue antibiotics attempting to get some more information from outpt records( did receive vanco perioperatively) (3) CAD (coronary artery disease): Plan: history of cardiac arrest, non occlusive CAD, previously preserved LV function Typically on aspirin and atorvastatin Patient takes Lasix 20 mg a day, unclear EF % (4) CKD (chronic kidney disease): Plan: ckd 3 stable Plan BPH continue tamsulosin tim will continue NIPPV Admission and Anticipated Discharge Date Admission Date: March 13, 2024 Subjective 68-year-old diabetic male with significant neuropathy slipped at home and sustained an open ankle fracture taken to the operating room on 13 March for ORIF and washout, patient with previous history of diabetic foot infection and osteomyelitis on chronic levofloxacin therapy Physical Exam Physical Exam: pt is tremulous and vomiting denies alcohol use is not clear regarding osteomyelitis of feet Results & Data Results & Data Vital Signs (Past 12 Hours) Vital Signs Temp Pulse Pulse Resp BP Pulse Ox O2 Del Method 03/14/24 03:27 98.4 F 86 18 117/59 L 94 Room Air 03/13/24 23:42 80 18 118/66 94 Room Air 03/13/24 22:30 98.1 F 83 18 105/70 92 Room Air 03/13/24 21:30 97.3 F L 82 16 119/59 L 92 Room Air 03/13/24 21:00 97.3 F L 83 16 131/83 92 Room Air 03/13/24 20:32 98.1 F 79 16 130/64 96 Room Air 03/13/24 20:10 82 16 147/62 H 99 Oxymask 03/13/24 20:00 97.7 F 78 16 123/59 L 94 Oxymask 03/13/24 19:50 77 16 132/61 99 Oxymask 03/13/24 19:40 76 12 131/61 100 Oxymask O2 Flow Rate 03/14/24 03:27 03/13/24 23:42 03/13/24 22:30 03/13/24 21:30 03/13/24 21:00 03/13/24 20:32 03/13/24 20:10 0 03/13/24 20:00 0 03/13/24 19:50 0 03/13/24 19:40 4 Laboratory Results review cbc review chemistry PG Care Time/CCT Total # of Minutes Spent Total Time Spent with Patient: Total time spent is greater than 50% in coordination of care (as documented) at patient's floor/unit and/or counseling patient: Coding Level of Care Code 02688 SUB INP/OBS CARE 3/50MIN Diagnoses Open fracture dislocation of ankle S82.899B Diabetic nephropathy associated with type 2 diabetes mellitus E11.21 CAD (coronary artery disease) I25.10 CKD (chronic kidney disease) N18.9
--- NOTE | 2024-03-14 08:34 | XRay Report ---
XR hip RT 1V HISTORY: 68 years-old Male fall onto hip acute right hip pain status post fall COMPARISON: CT abdomen and pelvis 03/05/2023 TECHNIQUE: One view of the right hip FINDINGS: Moderate osteoarthritis of the right hip. Limited exam secondary to patient body habitus. No acute fr acture, dislocation or avascular necrosis identified. IMPRESSION: No acute fracture or dislocation. ACT 112: Negative or not required by law. The above report was generated using voice recognition software. It may contain grammatical, syntax o r spelling errors. Electronically signed by: Giovanni Moreno M.D. 03/14/2024 8:31 AM
--- NOTE | 2024-03-14 08:38 | XRay Report ---
XR ankle RT 2V HISTORY: 68 years-old Male fracture acute fracture or dislocation of the right ankle COMPARISON: Foot radiograph March 08, 2024 TECHNIQUE: 2 views of the right ankle FINDINGS: Acute fracture dislocation of the ankle includes medial and lateral malleolar fractures. There is com plete dislocation of the tibiotalar joint with open component. The distal tibia protrudes several elia timeters past the medial skin surface. The distal fibular fracture is angulated and displaced. There is approximately 6 cm of tibiotalar placement. IMPRESSION: Acute fracture dislocation of the right ankle with open tibial fracture component. ACT 112: Negative or not required by law. The above report was generated using voice recognition software. It may contain grammatical, syntax o r spelling errors. Electronically signed by: Giovanni Moreno M.D. 03/14/2024 8:36 AM
[2024-03-14] MEDS: metFORMIN HCL 500 MG TAB PO SCH (08:59)
[2024-03-14] MEDS: PROMETHAZINE 12.5 MG/50.5 ML BAG IV ONE (09:27)
--- NOTE | 2024-03-14 09:39 | Pharmacy Report ---
Pharmacy PK ABX Note - Date of Service March 14, 2024 - Assessment and Plan Assessment 68 year old M receiving Vancomycin for treatment of osteomyelitis. * Day #1 of antimicrobial therapy. * Afrebrile. No white count. SCr yesterday was 1.86 mg/dL, awaiting new labs this AM. * Open fracture to right ankle yesterday which required surgical intervention last evening. Plan Vancomycin * Loading dose: 2000 mg IV x 1 * Maintenance dose: 1500 mg IV every 24 hours * Regimen is predicted to achieve target AUC/LUL of 400-600 mg/L.hr * Level will be ordered in 24-48 hours. Pharmacy will continue to follow and will adjust dose/frequency as necessary. Thank you. Pharmacy has transitioned to AUC monitoring for vancomycin. AUC/LUL is the preferred PK/PD target and is associated with decreased risk of nephrotoxicity compared to traditional trough targets.
[2024-03-14] MEDS: ASPIRIN 81 MG CHEW PO SCH (09:49)
[2024-03-14] MEDS: FUROSEMIDE 20 MG TAB PO SCH (09:50)
[2024-03-14] MEDS: LANTUS PER UNIT CHARGE SQ SCH (10:01)
[2024-03-14 10:15] LABS: Creatinine Clr Calc Pharmacy 48.9 ml/min
[2024-03-14] MEDS: VANCOMYCIN HCL 1,500 MG in SODIUM CHLORIDE 0.9% 500 ML IV SCH (11:02)
[2024-03-14] MEDS: SODIUM ZIRCONIUM CYCLOSILICATE 10 GM PACKET PO SCH (11:10)
--- NOTE | 2024-03-14 13:28 | Orthopedic Progress Note ---
Date of Service March 14, 2024 Assessment & Plan (1) Open fracture dislocation of ankle: Overall he is doing as well as expected. I discontinue the vancomycin and started him on ceftriaxone 2 g IV every 24 hours. This follows the recommendation for grade 3 open fracture dislocation that was not grossly con taminated. He will be nonweightbearing on his right ankle for the foreseeable future. I will contact Dr. Dieter Shin, the local foot and ankle specialist, about follow-up care. He may need to do a fusion of the ankle to try to save the foot. Right now his foot is stable. Will continue the IV antibiotics. The hospitalist will work on keeping his blood sugars under control. He should be seen by case management to determine if he is safe to go home. He will likely follow-up with Dr. Shin in his office later this week. Danielle Nunez was seen and examined at bedside this morning. Overall he is doing fairly well. He is not having too much pain in the right ankle. He has been seen by the hospitalist. He was on vancomycin for broad-spectrum coverage. He has no new complaints.. Review of Systems All systems reviewed & are unremarkable except as noted in HPI & below. Physical Exam On physical exam of the right ankle, the dressing is clean and dry. The external fixator is in place.. Results & Data Results & Data Laboratory Results . Diagnostic Findings . PG Care Time/CCT Total # of Minutes Spent Total Time Spent with Patient: Total time spent is greater than 50% in coordination of care (as documented) at patient's floor/unit and/or counseling patient: Coding Level of Care Code 14623 Post Operative Follow-Up Diagnoses Open fracture dislocation of ankle S82.899B
[2024-03-14] MEDS: LORazepam 2 MG/1 ML VIAL IV ONE (14:28)
[2024-03-14] MEDS: cefTRIAXone SODIUM 2,000 MG/50 ML BAG IV SCH (16:28)
--- NOTE | 2024-03-14 16:46 | CT Scan Report ---
EXAM:CT Left Lower Extremity Without Intravenous Contrast Foot INDICATION: Diabetic infection. Assess for osteomyelitis. TECHNIQUE: Axial computed tomography images of the left foot without intravenous contrast. Sagittal and coronal reformatted images were created and reviewed. This CT exam was performed using one or more of the following dose reduction techniques: automated exposure control, adjustment of the mA and/or kV according to patient size, and/or use of iterative reconstruction technique. COMPARISON: No relevant prior studies available. FINDINGS: Bones/joints: Postoperative changes of partial resection of the distal fifth metatarsal noted with smooth postoperative periosteal thickening with some well-corticated adjacent osseous fragments. Phalanges of the first and second toe have been removed. There is no aggressive osseous destruction or periosteal reaction. Soft tissues: Induration and probable underlying disorganized fluid collection noted plantar and lateral to the distal fifth metatarsal measures 2.7 x 2.3 x 1.7 cm. No associated gas. There is generalized subcutaneous and superficial fascial edema and thickening. No soft tissue gas. No radiopaque foreign body noted. IMPRESSION: Induration and probable disorganized abscess noted plantar lateral to the distal fifth metatarsal. No CT evidence of osteomyelitis. ACT 112: Negative or not required by law. Electronically signed by Marguerite Day 03-14-2024 4:46 PM
--- NOTE | 2024-03-14 16:53 | CT Scan Report ---
EXAM:CT Right Lower Extremity Without Intravenous Contrast Foot INDICATION: Diabetic infection. Assess for osteomyelitis. TECHNIQUE: Axial computed tomography images of the right foot without intravenous contrast. Sagittal and coronal reformatted images were created and reviewed. This CT exam was performed using one or more of the following dose reduction techniques: automated exposure control, adjustment of the mA and/or kV according to patient size, and/or use of iterative reconstruction technique. COMPARISON: No relevant prior studies available. FINDINGS: Bones/joints:External fixation device noted in the calcaneus. There is small acute fracture fragments in the tibiotalar joint. There are acute fractures of the medial and posterior malleolar line. There are probable small fragments from the anterior aspect of the distal fibula. There is widening of the lateral tibiotalar joint. There are probable nondisplaced fragments from the first cuneiform. Soft tissues: Moderate induration and sound gas noted medial to the distal tibia. Lesser amounts of induration noted along the dorsum of the talus. There is generalized subcutaneous and superficial fascial thickening and edema. Small amounts of fluid noted along the plantar fascia. There is no organized or drainable collection. No radiopaque foreign body. IMPRESSION: 1. Extensive, diffuse cellulitis with most prominent induration medial to the distal tibia. No organized or drainable collection. Scattered gas likely is related to open nature of the fracture and operative manipulation. Gas-forming anaerobic infection is not completely excluded. 2. Trimalleolar fracture fragments noted with widening of the lateral tibiotalar joint. No CT evidence of osteomyelitis. ACT 112: Negative or not required by law. Electronically signed by Marguerite Day 03-14-2024 4:53 PM
--- NOTE | 2024-03-14 17:36 | Magnetic Resonance Report ---
EXAM: MR foot LT w/o con CLINICAL HISTORY: pt 375 pounds, post right ankle surgery, pt states he cant hold still, tried fast scans, motion suppression scans, all had motion, used air bags to try and hold foot still but patient was not cooperating evaluate for diabetic foot infection TECHNIQUE: An MRI of the left foot was performed without intravenous contrast administration. Sequences obtained include: Sagittal T1-weighted, Sagittal T2-weighted, Coronal T1-weighted, Coronal T2-weighted, Axial T1-weighted, and Axial T2-weighted. COMPARISON: No previous studies are available for comparison. FINDINGS: Bone: Amputated left 1st and 2nd toes from the level of the metatarsophalangeal joints with subtle artifacts noted, no collections or mass lesions at the operative bed. [id number].[id number].5.1.1 There is bone resorption of the head of the left 5th metatarsal bone with mild angulation deformity and gapping, associated with ovoid-shaped fairly defined lobulated soft tissue density along the planter aspect of the metatarsal bone measuring roughly 24 x 46 mm along maximum transverse diameters of low T1 /OBX.5.1.1OBX.5.1.2 bright T2WIs /OBX.5.1.2OBX.5.1.3 STIR WIs signal intensity, subtle marrow edema of the 5th metatarsal bone. /OBX.5.1.3/OBX.5.1 There are erosive changes are seen involving the intertarsal and tarsometatarsal articulations. Tendons: Normal MRI appearance of the scanned compartmental longitudinal tendons. Muscles: Diffuse fatty infiltration and atrophic changes of the intrinsic plantar musculature. Soft Tissue: Subcutaneous edema along the lateral aspect of the dorsum of the foot. IMPRESSION: 1. Amputated left first and second toes. 2. Bone resorption of the 5th metatarsal head with soft tissue mass at its plantar aspect, possibilities include erosive arthritis e.g. gout versus septic arthritis. Clinical correlation is advised. 3. Arthritic changes at the intertarsal and tarsometatarsal articulations. 4. atrophic fatty infiltration of the foot musculature. 5. Subcutaneous edema of the foot. Electronically signed by Kevin Ochoa 03-14-2024 5:36 PM
[2024-03-14] MEDS: LORazepam 2 MG/1 ML VIAL IV PRN (20:11)
[2024-03-15] MEDS: levoFLOXacin 750 MG TAB PO SCH (11:32)
--- NOTE | 2024-03-15 16:17 | Podiatry Consultation ---
Date of Consultation March 15, 2024 Assessment & Plan (1) Open fracture dislocation of ankle: Encounter type: initial encounter Open fracture type: open type III Laterality: right Qualified Code(s): S82.891C - Other fracture of right lower leg, initial encounter for open fracture type IIIA, IIIB, or IIIC (2) Diabetic neuropathy: Diabetes mellitus type: type 2 Diabetes mellitus complication detail: diabetic polyneuropathy Qualified Code(s): E11.42 - Type 2 diabetes mellitus with diabetic polyneuropathy (3) Diabetic foot ulcer: Diabetic foot ulcer location: midfoot Diabetes mellitus type: type 2 Laterality: left Non-pressure ulcer stage: with necrosis of bone Qualified Code(s): E11.621 - Type 2 diabetes mellitus with foot ulcer; L97.424 - Non-pressure chronic ulcer of left heel and midfoot with necrosis of bone (4) Status post partial amputation of foot: Laterality: left Qualified Code(s): Z89.432 - Acquired absence of left foot (5) Acute osteomyelitis of left foot: (6) Chronic ulcer of left foot with necrosis of bone: Plan Patient was examined and evaluated. We discussed at length the etiology and treatment of his left foot ulceration and infection. We have treated this conservatively in the past, an outpatient basis. This has included aggressive wound ccare with the wound care center and IV antibiotics. This is clearly failed at this point as the ulcer is still present and there is evidence for retained infection on MR imaging. Now, with the new delta frame and likely more definitive correction of his right ankle fracture, he would benefit from resecting the infection definitively. This would be via 5th ray resection or, more definitively, via transmetatarsal amputation. He will consider these options but will plan on surgery on . I will check in throughout the week to see when he has decided in regards to the level of amputation. Patient understands and is amenable to this. Thank you for the consult, we are always h appy to help with any foot and ankle concerns. History of Present Illness Reason for Consultation: Left foot osteomyelitis Attending Physician: Chepe Daly, History of Present Illness patient seen at bedside. He states that he was admitted to the hospital with a open right ankle fracture which has been treated surgically with a delta frame. He denies any significant pain or limitations to the right foot but on this admission, he was noted to have continued left foot infection and ulceration. He has had CT and MRI of this left foot which reveals underlying bone infection. We were consulted to assess for further treatment options for this ulcer. We have seen him on an outpatient basis at the request of the wound care center for this as well. We last saw him last month for this at which point he was under adequate care with the wound care center and was told to follow-up with us if he had worsening concerns. Now, there is continued purulent drainage and a deep puncture wound with obvious purulent drainage. Because of his presentation with the ankle fracture, he does admit to some nausea and vomiting but attributes this to both the pain in the uneasiness he has felt with the injury. He denies any systemic signs of infection Allergies Allergy/AdvReac Type Severity Reaction Status Date / Time No Known Allergies Allergy Verified 03/12/24 11:06 Home Medications Medication Instructions Recorded Confirmed Type aspirin 81 mg chewable tablet 81 mg PO QAM 07/26/20 03/01/24 History lancets (Accu-Chek Fastclix Lancet 08/23/20 03/01/24 History Drum) FreeStyle Remigio 2 [place] (flash #1 ea 01/24/21 03/01/24 Rx glucose scanning reader) FreeStyle Remigio 2 Sensor (flash #7 ea 01/24/21 03/01/24 Rx glucose sensor) mecobalamin (vitamin B12) 1,000 1,000 mcg PO QAM 01/17/22 03/01/24 History mcg lozenges aluminum-mag hydroxide-simethicone 10 ml PO TID PRN .gi-upset 03/03/23 03/01/24 History 400 mg-400 mg-40 mg/5 mL oral susp (Mylanta Maximum Strength) insulin glargine 100 unit/mL (3 70 unit subcut QAM 05/12/23 03/01/24 History mL) subcutaneous pen (Basaglar KwikPen U-100 Insulin) metformin 500 mg tablet 500 mg PO BID 90 days #180 tabs 06/24/23 03/01/24 Rx blood sugar diagnostic (Accu-Chek #100 ea 09/09/23 03/01/24 Rx Guide test strips) pantoprazole 40 mg tablet,delayed 40 mg PO BID #180 tabs 09/09/23 03/01/24 Rx release (Protonix) albuterol sulfate 90 mcg/actuation 2 puff inhalation .Q4-6H PRN 11/25/23 03/01/24 Rx aerosol inhaler shortness of breath or wheezing #6.7 grams cyanocobalamin (vitamin B-12) 1,000 mcg PO DAILY 12/26/23 03/01/24 History 1,000 mcg capsule Saccharomyces boulardii 250 mg 250 mg PO BID #60 caps 01/13/24 03/01/24 Rx capsule (Florastor) sodium zirconium cyclosilicate 10 10 g PO DAILY #30 ea 01/29/24 03/01/24 Rx gram oral powder packet Mounjaro 2.5 mg/0.5 mL 2.5 mg (0.5 mL) subcut Q7D #2 mL 02/13/24 03/01/24 Rx subcutaneous pen injector (tirzepatide) tirzepatide 2.5 mg/0.5 mL mg subcut .Weekly 02/20/24 03/01/24 History subcutaneous pen injector (Mounjaro) atorvastatin 10 mg tablet (Lipitor) 10 mg PO HS #90 tabs 02/24/24 03/01/24 Rx duloxetine 20 mg capsule,delayed 20 mg PO BID #180 caps 02/24/24 03/01/24 Rx release (Cymbalta) empagliflozin 25 mg tablet 25 mg PO QAM #90 tabs 02/24/24 03/01/24 Rx (Jardiance) furosemide 20 mg tablet (Lasix) 20 mg PO QAM #90 tabs 02/24/24 03/01/24 Rx insulin aspart U-100 100 unit/mL 80 unit (0.8 mL) subcut DAILY #72 02/24/24 03/01/24 Rx (3 mL) subcutaneous pen (Novolog mL FlexPen U-100 Insulin aspart) pen needle, diabetic 31 gauge x #400 ea 02/24/24 03/01/24 Rx 3/16" (BD Ultra-Fine Mini Pen Needle) tadalafil 2.5 mg tablet 2.5 mg PO DAILY #90 tabs 02/24/24 03/01/24 Rx tamsulosin 0.4 mg capsule 0.4 mg PO HS #30 caps 02/24/24 03/01/24 Rx cholecalciferol (vitamin D3) 25 25 mcg PO DAILY 03/01/24 03/12/24 History mcg (1,000 unit) tablet (Vitamin D3) levofloxacin 500 mg tablet 500 mg PO DAILY 14 days #14 tabs 03/08/24 03/12/24 Rx oxycodone 5 mg tablet 5 mg PO Q6H PRN pain #12 tabs 03/08/24 03/12/24 Rx levofloxacin 500 mg tablet 500 mg PO DAILY 14 days #14 tabs 03/09/24 03/12/24 Rx oxycodone 5 mg tablet 5 mg PO Q6H PRN pain #12 tabs 03/09/24 03/12/24 Rx apixaban 2.5 mg tablet 2.5 mg PO BID 14 days #28 tabs 03/15/24 Rx cefadroxil 500 mg capsule 500 mg PO BID 3 weeks #42 caps 03/15/24 Rx oxycodone 5 mg tablet 5 mg PO Q6H PRN pain #30 tabs 03/15/24 Rx Patient History Medical History Hx of back injury Hx MRSA infection History of colon polyps Surgical History H/O kyphoplasty (2022) following L1 burst fracture Status post amputation of toe of left foot History of cardiac cath following an unexplained cardiac arrest>per medical record>11/05/21, [facility], no stents Status post amputation of left great toe History of incision and drainage Hx of I&D of mendel-rectal abscess History of cataract surgery bilt History of cholecystectomy History of tooth extraction History of colonoscopy Colonoscopy 01/21/[address] Garg. History of adenoidectomy History of tonsillectomy Status post uvulopalatopharyngoplasty S/P foot surgery, left Family History Mother Family history of diabetes mellitus Father History of alcoholism History of liver cancer Sister Cancer Denies family history of Ovarian cancer Prostate cancer Crohn's disease Breast cancer Colorectal cancer Social History Smoking Status: Never smoker Tobacco Type: Declines Age Started Using Tobacco: 18; Age Quit Using Tobacco: 48; packs per day: 1.5; Second Hand Exposure: No; Do You Dip or Chew Tobacco: No; Tobacco Cessation Education Requested by Patient: No Hx Alcohol Use: Yes Alcohol type: wine Alcohol Intake Frequency: Monthly or Less Hx Substance Use: No Preferred Language: Italian Communication Ability: Effective Visual Impairment: No Limitations Hearing Ability: Normal Auto Mechanics Instructor Required: No Beliefs That Will Affect Care: None marital status: Current Living Situation: Spouse Current Living Situation Comment: Lives with and dog current occupational status: employed 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 Other Information That Helps Us Care for You: No Feels Safe at Home: Yes Safety Concerns: Feels Safe At This Time Childhood Exposure to Second-Hand Smoke: Yes Diet: regular Diet Comment: "tries to feed me right, but sometimes it doesn't always happen" caffeine: Yes during the past year weight has: remained stable Physical Activity Frequency: Does not Exercise Seatbelt Use: never Do you think of yourself as: straight/heterosexual Assistive Devices: None Review of Systems Review of Systems: All systems reviewed & are unremarkable except as noted in HPI & below Constitutional: + fever; no chills and no fatigue Eyes: no problem reported Ear, Nose, Mouth, Throat: no problem reported Respiratory: no problem reported Cardiovascular: + edema; no problem reported Gastrointestinal: + nausea and + vomiting; no problem repo rted Genitourinary: no problem reported Musculoskeletal: no problem reported Integumentary: + skin ulcer, + wounds and + erythema Neurologic: + loss of sensation, + numbness and + pa resthesia; no generalized weakness Psychiatric: no problem reported Physical Exam Physical Exam: Right lower extremity external fixator in place with post-surgical dressing intact, left intact. Left lower extremity exam: DP/PT pulses non-palpable. CFT brisk to remaining 3-5 digits. Deep tunneling ulceration noted to plantar fifth metatarsal head. Purulent drainage immediately expressed. Prior outpatient imaging was suggestive of underlying osteomyelitis, now new CT/MRI reflects continued bone infection to fifth metatarsal head. No pain on palpation/debridement of ulceration. No ascending cellulitis. Diffuse edema noted to LE. Constitutional: WD/WN, vitals as above + ill appearing, + morbidly obese and comfortable Eyes: PERRL, conjunctivae normal, anicteric sclerae ENMT: external ear and nose normal, oropharynx normal Neck: trachea midline, no thyromegaly normal visual inspection Respiratory: normal respiratory effort; no respiratory distress Cardiovascular: Rate/Rhythm: regular rate and regular rhythm Vessels: + posterior tibial pulses abnormal and + dorsalis pedis pulses abnormal Extremities: normal capillary refill Chest (Breasts): Chest: normal inspection of chest Gastrointestinal (Abdomen): Inspection/Auscultation: abdomen normal to inspection Percussion/Palpation: + abdomen tender and abdomen soft Musculoskeletal: no cyanosis or clubbing, extremities motor strength 5/5 Head/Neck/Chest: normocephalic and head atraumatic Extremities: extremities normal to inspection, + lower extremity abnormal to inspection Bilateral (R Ex- fix intact. Left toe amputations to 1st, 2nd. ) and + limited ROM of lower ex tremity Skin: no rashes, warm and dry + ulcer, + wound, + erythema, + fluctulance, + fistulous tract and + nails dystrophic Neurologic: awake; + abnormal touch/pain/proprioception, + abnormal sensation to monofilament and no focal motor deficits Psychiatric: A+Ox3, euthymic affect Results & Data Vital Signs (Past 12 Hours) Vital Signs Temp Pulse Resp BP Pulse Ox O2 Del Method O2 Flow Rate 03/15/24 12:10 Nasal Cannula 2 03/15/24 07:24 36.6 C 84 20 153/75 H 95 Room Air
--- NOTE | 2024-03-15 18:06 | Hospitalist Progress Note ---
Date of Service March 15, 2024 Assessment & Plan (1) Open fracture dislocation of ankle: Plan: Sustained the open fracture dislocation taken to the operating room on [address] Chepe Daly for ORIF and washout On Rocephin and Levaquin PT/OT consulted (2) Diabetic nephropathy associated with type 2 diabetes mellitus: Plan: this patient is on many medications including insulin Mounjaro metformin he will be reduced to basal bolus insulin while in the hospital prehospital osteomyelitis of feet(?), pt was on levaquin, has seen Dr Mccray in the past. CT right foot 03/14: extensive, diffuse cellulitis w/ most prominent induration medical to the distal tibia. No organized or drainable collection. scattered gas likely is related to open nature of the fracture and oeprative manipulation. gas-forming anaerobic infx not completed excluded CT left foot 03/14: induration and probable disorganized abscess noted plantar lateral to the distal 5th metatarsal. no ct evidence osteomyelitis MRI left foot 03/14: amputated left first and 2nd toes. bone resorption of 5th metatarsal head w/ soft tissue mass at plantar aspect. ddx: gout vs septic arthritis. arthritic changes at intertarsal and tarsometatarsal articulations. atrophic fatty infiltration of foot musculature. subcutaneous edema of foot. Podiatry consulted, appreciate recommendations. (3) CAD (coronary artery disease): Plan: history of cardiac arrest, non occlusive CAD, previously preserved LV function Typically on aspirin and atorvastatin Patient takes Lasix 20 mg a day, unclear EF % (4) CKD (chronic kidney disease): Plan: ckd 3 stable Plan BPH continue tamsulosin tim will continue NIPPV Admission and Anticipated Discharge Date Admission Date: March 13, 2024 Subjective Patient seen and examined this morning. Patient reports to be feeling okay today. He has pain in his ankle and feet b/l but denies any additional complaints. states he has a chronic cough. denies SOB or CP. Physical Exam Constitutional: WD/WN, vitals as above Eyes: PERRL, conjunctivae normal, anicteric sclerae Respiratory: normal respiratory effort, lungs clear to auscultation Cardiovascular: RRR, no murmur, no edema Psychiatric: A+Ox3, euthymic affect Results & Data Results & Data Vital Signs (Past 12 Hours) Vital Signs Temp Pulse Resp BP Pulse Ox O2 Del Method O2 Flow Rate 03/15/24 17:31 36.7 C 72 16 135/68 93 Room Air 03/15/24 12:10 Nasal Cannula 2 03/15/24 07:24 36.6 C 84 20 153/75 H 95 Room Air PG Care Time/CCT Total # of Minutes Spent Total Time Spent with Patient: Total time spent is greater than 50% in coordination of care (as documented) at patient's floor/unit and/or counseling patient: Coding Level of Care Code 91630 SUB INP/OBS CARE MIN Diagnoses Open fracture dislocation of ankle S82.899B Diabetic nephropathy associated with type 2 diabetes mellitus E11.21 CAD (coronary artery disease) I25.10 CKD (chronic kidney disease) N18.9
[2024-03-15] MEDS: POLYETHYLENE (MIRALAX) 17 GM PACK PO SCH (20:48)
--- NOTE | 2024-03-15 20:58 | Orthopedic Progress Note ---
Date of Service March 15, 2024 Assessment & Plan (1) Open fracture dislocation of ankle: Overall he is doing as well as expected. He is currently on Rocephin for antimicrobial prophylaxis. He is on Eliquis for DVT prophylaxis. He is to be nonweightbearing on the right ankle. Unfortunately, he cannot return home and follow the nonweightbearing restrictions. He will likely need rehab placement. He is orthopedically stable for discharge to go to a rehab facility on oral antibiotics when a bed becomes available. I did talk to Dr. Dieter Shin the foot and ankle specialist at [facility] and he is expecting to see him in his office this week for more definitive fixation of the left ankle. Full orthopedic discharge instructions were placed in the discharge summary. Danielle Nunez was seen and examined at bedside this afternoon. Overall is doing okay. He is not having much pain in the right ankle. He has no new complaints.. Review of Systems All systems reviewed & are unremarkable except as noted in HPI & below. Physical Exam On physical exam of the right ankle, the dressing is clean and dry. The external fixator is in place.. Results & Data Results & Data Laboratory Results . Diagnostic Findings . PG Care Time/CCT Total # of Minutes Spent Total Time Spent with Patient: Total time spent is greater than 50% in coordination of care (as documented) at patient's floor/unit and/or counseling patient: Coding Level of Care Code 56780 Post Operative Follow-Up Diagnoses Open fracture dislocation of ankle S82.899B
--- NOTE | 2024-03-16 06:53 | Orthopedic Progress Note ---
Date of Service March 16, 2024 Assessment & Plan (1) Open fracture dislocation of ankle: Overall Enrique is doing fairly well. He is to be nonweightbearing on the right ankle for at least 6 weeks. He will still need another procedure done of his right ankle. I spoke with Dr. Dieter Shin with [facility] who is a foot and ankle specialist and he is happy to see Enrique in follow-up this week in the office to set up a future procedure with his ankle. He is currently on Rocephin. He is stable for discharge today and to be discharged on oral antibiotics. He is on Eliquis for DVT prophylaxis. Full orthopedic discharge instructions were placed. He is stable for discharge with bed becomes available at a rehab facility. Subjective Enrique was seen and examined at bedside this morning. He had no acute events overnight. He is not having too much pain in his right ankle.. Review of Systems All systems reviewed & are unremarkable except as noted in HPI & below. Physical Exam On physical exam of the right ankle, the dressing is clean and dry. The external fixator is in place.. Results & Data Results & Data Laboratory Results . Diagnostic Findings . PG Care Time/CCT Total # of Minutes Spent Total Time Spent with Patient: Total time spent is greater than 50% in coordination of care (as documented) at patient's floor/unit and/or counseling patient: Coding Level of Care Code 49629 Post Operative Follow-Up Diagnoses Type III open fracture dislocation of right ankle, initial encounter S82.891C Encounter type: initial encounter Laterality: right Open fracture type: open type III (1) Open fracture dislocation of ankle Encounter type: initial encounter Laterality: right Open fracture type: open type III Qualified Code(s): S82.891C - Other fracture of right lower leg, initial encounter for open fracture type IIIA, IIIB, or IIIC
[2024-03-16] MEDS: CARBOHYDRATES FOR HYPOGLYCEMIA PO PRN (15:30)
[2024-03-16] MEDS ORDERED: PHARMACY GLYCEMIC MGMT CONSULT PRN (16:03)
--- NOTE | 2024-03-16 16:16 | Hospitalist Progress Note ---
Date of Service March 16, 2024 Assessment & Plan (1) Open fracture dislocation of ankle: Plan: Sustained the open fracture dislocation taken to the operating room on 03/[address] Chepe Daly for ORIF and washout On Rocephin and Levaquin PT/OT following, recommending rehab. Orthopedics have deemed patient medically stable from their standpoint for discharge. Patient may have further surgery on 03/18 pending podiatry recommendations and he will also need referred to rehab so patient has been assigned to our service now for further care. (2) Diabetic nephropathy associated with type 2 diabetes mellitus: Plan: this patient is on many medications including insulin Mounjaro metformin he will be reduced to basal bolus insulin while in the hospital prehospital osteomyelitis of feet(?), pt was on levaquin, has seen Dr Mccray in the past. CT right foot 03/14: extensive, diffuse cellulitis w/ most prominent induration medical to the distal tibia. No organized or drainable collection. scattered gas likely is related to open nature of the fracture and oeprative manipulation. gas-forming anaerobic infx not completed excluded CT left foot 03/14: induration and probable disorganized abscess noted plantar lateral to the distal 5th met[address]ars[address]. no ct evidence osteomyelitis MRI left foot 03/14: amputated left first and 2nd toes. bone resorption of 5th metatarsal head w/ soft tissue mass at plantar aspect. ddx: gout vs septic arthritis. arthritic changes at intertarsal and tarsometatarsal articulations. atrophic fatty infiltration of foot musculature. subcutaneous edema of foot. Podiatry consulted, reviewed recommendations. recommending surgery including a 5th ray resection or transmetatarsal amputation. can tentatively be performed on 03/18 per documentation. Patient w/ episode of hypoglycemia 03/16 treated with 45gm carbs. consulted pharmacy for aide in glycemic management. Currently on Lantus and Sliding scale while in patient. (3) CAD (coronary artery disease): Plan: history of cardiac arrest, non occlusive CAD, previously preserved LV function Typically on aspirin and atorvastatin Patient takes Lasix 20 mg a day, unclear EF % (4) CKD (chronic kidney disease): Plan: ckd 3 stable Plan BPH continue tamsulosin tim will continue NIPPV Admission and Anticipated Discharge Date Admission Date: March 13, 2024 Subjective Patient seen and examined this morning. Patient denies any complaints today. He states his ankle pain has been under control. States he has his neuropathy so he can't always feel if he is in pain. Physical Exam Constitutional: WD/WN, vitals as above Eyes: PERRL, conjunctivae normal, anicteric sclerae Respiratory: breathing unlabored Cardiovascular: well perfused Psychiatric: A+Ox3, euthymic affect Results & Data Results & Data Vital Signs (Past 12 Hours) Vital Signs Temp Pulse Resp BP Pulse Ox O2 Del Method O2 Flow Rate 03/16/24 14:28 36.5 C 67 17 142/73 H 94 Room Air 03/16/24 09:00 Nasal Cannula 2 03/16/24 07:50 36.5 C 78 16 136/64 98 Nasal Cannula 2 PG Care Time/CCT Total # of Minutes Spent Total Time Spent with Patient: Total time spent is greater than 50% in coordination of care (as documented) at patient's floor/unit and/or counseling patient: Coding Level of Care Code 16839 SUB INP/OBS CARE 2/35MIN Diagnoses Type III open fracture dislocation of right ankle, initial encounter S82.891C Encounter type: initial encounter Laterality: right Open fracture type: open type III Diabetic nephropathy associated with type 2 diabetes mellitus E11.21 CAD (coronary artery disease) I25.10 CKD (chronic kidney disease) N18.9 (1) Open fracture dislocation of ankle Encounter type: initial encounter Laterality: right Open fracture type: open type III Qualified Code(s): S82.891C - Other fracture of right lower leg, initial encounter for open fracture type IIIA, IIIB, or IIIC
--- NOTE | 2024-03-16 21:39 | Podiatry Progress Note ---
Date of Service March 16, 2024 Assessment & Plan (1) Open fracture dislocation of ankle: (2) Diabetic neuropathy: (3) Diabetic foot ulcer: (4) Status post partial amputation of foot: (5) Acute osteomyelitis of left foot: (6) Chronic ulcer of left foot with necrosis of bone: Plan Patient was examined and evaluated. - Will add on to OR schedule on . Recommend TMA versus isolated fifth ray resection. - TMA would be more definitive and functional, but if wants to save remaining toes, he can elect for that as well. - Will check in/confirm specific procedure on preoperatively. Patient understands options and is amenable to them. - Will follow Admission and Anticipated Discharge Date Admission Date: March 13, 2024 Subjective Pt seen at bedside at lunch. No new concerns. No pain to either foot/ankle. Has not thought about amputation of left foot much, but is amenable to it. Review of Systems Constitutional: + fever; no chills and no fatigue Eyes: no problem reported Ear, Nose, Mouth, Throat: no problem reported Respiratory: no problem reported Cardiovascular: + edema; no problem reported Gastrointestinal: + nausea and + vomiting; no problem repo rted Genitourinary: no problem reported Musculoskeletal: no problem reported Integumentary: + skin ulcer, + wounds and + erythema Neurologic: + loss of sensation, + numbness and + pa resthesia; no generalized weakness Psychiatric: no problem reported Physical Exam Physical Exam: Right lower extremity external fixator in place with post-surgical dressing intact, left intact. Left lower extremity exam: DP/PT pulses non-palpable. CFT brisk to remaining 3-5 digits. Deep tunneling ulceration noted to plantar fifth metatarsal head. Purulent drainage immediately expressed. Prior outpatient imaging was suggestive of underlying osteomyelitis, now new CT/MRI reflects continued bone infection to fifth metatarsal head. No pain on palpation/debridement of ulceration. No ascending cellulitis. Diffuse edema noted to LE. Constitutional: WD/WN, vitals as above + ill appearing, + morbidly obese and comfortable Eyes: PERRL, conjunctivae normal, anicteric sclerae ENMT: external ear and nose normal, oropharynx normal Neck: trachea midline, no thyromegaly normal visual inspection Respiratory: normal respiratory effort; no respiratory distress Cardiovascular: Rate/Rhythm: regular rate and regular rhythm Vessels: + posterior tibial pulses abnormal and + dorsalis pedis pulses abnormal Extremities: normal capillary refill Chest (Breasts): Chest: normal inspection of chest Gastrointestinal (Abdomen): Inspection/Auscultation: abdomen normal to inspection Percussion/Palpation: + abdomen tender and abdomen soft Musculoskeletal: no cyanosis or clubbing, extremities motor strength 5/5 Head/Neck/Chest: normocephalic and head atraumatic Extremities: extremities normal to inspection, + lower extremity abnormal to inspection Bilateral (R Ex- fix intact. Left toe amputations to 1st, 2nd. ) and + limited ROM of lower extremity Skin: no rashes, warm and dry + ulcer, + wound, + erythema, + fluctulance, + fistulous tract and + nails dystrophic Neurologic: awake; + abnormal touch/pain/proprioception, + abnormal sensation to monofilament and no focal motor deficits Psychiatric: A+Ox3, euthymic affect Results & Data Results & Data Vital Signs (Past 12 Hours) Vital Signs Temp Pulse Resp BP BP Pulse Ox O2 Del Method 03/16/24 20:51 36.6 C 104 H 18 128/78 128/78 98 Nasal Cannula 03/16/24 19:59 36.4 C L 106 H 18 95/60 L 93 Nasal Cannula 03/16/24 14:28 36.5 C 67 17 142/73 H 94 Room Air O2 Flow Rate 03/16/24 20:51 2 03/16/24 19:59 2 03/16/24 14:28 (1) Open fracture dislocation of ankle Encounter type: initial encounter Laterality: right Open fracture type: open type III Qualified Code(s): S82.891C - Other fracture of right lower leg, initial encounter for open fracture type IIIA, IIIB, or IIIC (2) Diabetic neuropathy Diabetes mellitus complication detail: diabetic polyneuropathy Diabetes mellitus type: type 2 Qualified Code(s): E11.42 - Type 2 diabetes mellitus with diabetic polyneuropathy (3) Diabetic foot ulcer Diabetic foot ulcer location: midfoot Diabetes mellitus type: type 2 Laterality: left Non-pressure ulcer stage: with necrosis of bone Qualified Code(s): E11.621 - Type 2 diabetes mellitus with foot ulcer; L97.424 - Non- pressure chronic ulcer of left heel and midfoot with necrosis of bone (4) Status post partial amputation of foot Laterality: left Qualified Code(s): Z89.432 - Acquired absence of left foot
--- NOTE | 2024-03-17 06:06 | Orthopedic Progress Note ---
Date of Service March 17, 2024 Assessment & Plan (1) Open fracture dislocation of ankle: Overall he is doing fairly well with regards to the right ankle. The nursing staff can now do daily dry dressing changes and can do pin site care with soap and water around the pin sites. He has also been seen by podiatry. Podiatry is planning to do a partial fifth ray resection tomorrow. He is currently on Rocephin and Levaquin for antimicrobial prophylaxis. I have alerted Dr. Dieter Shin, the orthopedic foot and ankle specialist, about more definitive fixation of his right ankle. He is currently on Eliquis for DVT prophylaxis. Danielle Nunez was seen and examined at bedside this morning. Overall he is doing fairly well. He is not having too much pain in the right ankle. He has been nonweightbearing. He has no new complaints.. Review of Systems All systems reviewed & are unremarkable except as noted in HPI & below. Physical Exam On physical exam of the right ankle, the dressing had been changed yesterday by the nursing staff. The external fixator is in place.. Results & Data Results & Data Laboratory Results . Diagnostic Findings . PG Care Time/CCT Total # of Minutes Spent Total Time Spent with Patient: Total time spent is greater than 50% in coordination of care (as documented) at patient's floor/unit and/or counseling patient: Coding Level of Care Code 95171 Post Operative Follow-Up Diagnoses Type III open fracture dislocation of right ankle, initial encounter S82.891C Encounter type: initial encounter Laterality: right Open fracture type: open type III (1) Open fracture dislocation of ankle Encounter type: initial encounter Laterality: right Open fracture type: open type III Qualified Code(s): S82.891C - Other fracture of right lower leg, initial encounter for open fracture type IIIA, IIIB, or IIIC
[2024-03-17 08:06] LABS: Hematocrit (blood only) 25.4 % (42.0-52.0); Mean Corpuscular Hemoglobin 26.9 pg (25.0-34.0); Mean Corpuscular Hgb Conc 31.5 g/dL (32.0-36.0); Mean Corpuscular Volume 85.5 fL (80.0-100.0); Mean Platelet Volume 9.1 fL (9.4-12.4); Platelet Count 147 K/uL (130-400); RDW Coefficient of Variation 14.3 % (11.5-14.5); RDW Standard Deviation 44.2 fL (36.4-46.3); Red Blood Count 2.97 M/uL (4.70-6.10); White Blood Count 6.33 K/ul (4.8-10.8)
[2024-03-17 08:22] LABS: BUN Creatinine Ratio 21.2 (10-20); Calcium 8.5 mg/dl (8.6-10.3); Creatinine Clr Calc Pharmacy 54.5 ml/min; Potassium 4.2 mmol/L (3.5-5.1)
[2024-03-17] MEDS: tadalafiL PO SCH (08:33)
[2024-03-17] MEDS: LANTUS PER UNIT CHARGE SQ SCH (08:46)
[2024-03-17] MEDS ORDERED: EMPAGLIFLOZIN 25 MG TAB PO SCH (09:00)
--- NOTE | 2024-03-17 09:04 | Orthopedic Consultation ---
Date of Consultation March 17, 2024 Assessment & Plan (1) Open fracture dislocation of right ankle: (2) Neuropathy: (3) Diabetic neuropathy: (4) Acute osteomyelitis of left foot: (5) Chronic ulcer of left foot with necrosis of bone: (6) Cellulitis of foot, right: (7) Chronic constipation: (8) Chronic venous insufficiency: (9) Diabetic nephropathy associated with type 2 diabetes mellitus: (10) CKD stage 3 due to type 2 diabetes mellitus: (11) PAD (peripheral artery disease): (12) CAD (coronary artery disease): Jenny Nunez is a 68-year-old gentleman who sustained a open fracture/dislocation of his right ankle. Initially, he received appropriate antibiotics, tetanus update, and was taken to the operating room with Dr. Daly for irrigation and debridement with closed reduction and application of external fixator. At this time, the patient is resting comfortably in bed in his external fixator. He remains in the hospital due to planned intervention by podiatry for his left foot. With regards to the patient's right lower extremity, I did take off his dressings and examine his limb. He does not demonstrate any signs of active infection at his open wound or at his pin sites. I replaced the dressings in these areas with Xeroform, 4 x 4's, Roly wrap and I recommend leaving them in place until follow-up. The patient does have diffuse, extensive soft tissue swelling noted at this time. This soft tissue swelling would make soft tissue passage quite dangerous at this time, and the patient swelling needs to nancy prior to any surgical intervention for his right ankle. With regards to an operative plan for the patient's right ankle, I believe that we have 2 options. Option 1 would be for open reduction internal fixation of his ankle fracture with extensive syndesmotic fixation. Option 2 would be for acute tibial talocalcaneal arthrodesis. No matter which option of the above that we choose, I do believe the patient is at an extremely high risk for infection, infection requiring additional surgery, or even infection requiring amputation. Due to the patient's high BMI, his advanced age, a primary amputation for this problem or amputation in the future would be a devastating consequence for him and he would likely never walk again. I think the best he could hope for after knee potation would be to stand/pivot transfer on a prosthesis. I did discuss with the patient all of the above and very plain terms. He appreciated my candor and thanked me for the visit. With regards to the right side, I do believe that he is stable at this time. I will need to see him in the clinic next week to determine an appropriate plan. We also discussed this in detail with his in order to help us make the appropriate surgical decision. I do think that the patient's high BMI, neuropathy, and soft tissue injury to the right lower extremity does suggest that he meets indications for acute tibial talocalcaneal arthrodesis, I do also think that TTC nail is the best chance at having just 1 surgery, because I am quite concerned about placing an incision on the medial side near his open fracture wound and the chance of him getting an infection. He will continue to think about all of this and we will determine an appropriate plan moving forward. History of Present Illness Reason for Consultation: Open right ankle fracture Requesting Physician: Dr. Chepe Daly Attending Physician: Tacho Berman History of Present Illness This is a 68-year-old gentleman who presented over the weekend after a fall that occurred in his home wherein he sustained a open right trimalleolar ankle fracture. He was taken emergently to the operating room by Dr. Daly over the weekend for irrigation debridement and placement of external fixator. Dr. Daly reached out to me to manage the patient definitively. Patient is quite unhealthy and most of his troubles stem from his very poorly controlled diabetes. He has history of coronary artery disease, hypertension, hyperlipidemia, poorly controlled diabetes, chronic kidney disease, diabetic neuropathy, left foot osteomyelitis and multiple prior amputations for nonhealing ulcers. With regards patient's left foot, he is being managed by podiatry. With regards to his right foot and ankle, he is status post external fixator placement by Dr. Daly as above. Patient has been on open fracture antibiotics. Patient denies significant pain in his right lower extremity secondary to his neuropathy Allergies Allergy/AdvReac Type Severity Reaction Status Date / Time No Known Allergies Allergy Verified 03/12/24 11:06 Home Medications Medication Instructions Recorded Confirmed Type aspirin 81 mg chewable tablet 81 mg PO QAM 07/26/20 03/01/24 History lancets (Accu-Chek Fastclix Lancet 08/23/20 03/01/24 History Drum) FreeStyle Remigio 2 [place] (flash #1 ea 01/24/21 03/01/24 Rx glucose scanning reader) FreeStyle Remigio 2 Sensor (flash #7 ea 01/24/21 03/01/24 Rx glucose sensor) mecobalamin (vitamin B12) 1,000 1,000 mcg PO QAM 01/17/22 03/01/24 History mcg lozenges aluminum-mag hydroxide-simethicone 10 ml PO TID PRN .gi-upset 03/03/23 03/01/24 History 400 mg-400 mg-40 mg/5 mL oral susp (Mylanta Maximum Strength) insulin glargine 100 unit/mL (3 70 unit subcut QAM 05/12/23 03/01/24 History mL) subcutaneous pen (Basaglar KwikPen U-100 Insulin) metformin 500 mg tablet 500 mg PO BID 90 days #180 tabs 06/24/23 03/01/24 Rx blood sugar diagnostic (Accu-Chek #100 ea 09/09/23 03/01/24 Rx Guide test strips) pantoprazole 40 mg tablet,delayed 40 mg PO BID #180 tabs 09/09/23 03/01/24 Rx release (Protonix) albuterol sulfate 90 mcg/actuation 2 puff inhalation .Q4-6H PRN 11/25/23 03/01/24 Rx aerosol inhaler shortness of breath or wheezing #6.7 grams cyanocobalamin (vitamin B-12) 1,000 mcg PO DAILY 12/26/23 03/01/24 History 1,000 mcg capsule Saccharomyces boulardii 250 mg 250 mg PO BID #60 caps 01/13/24 03/01/24 Rx capsule (Florastor) sodium zirconium cyclosilicate 10 10 g PO DAILY #30 ea 01/29/24 03/01/24 Rx gram oral powder packet Mounjaro 2.5 mg/0.5 mL 2.5 mg (0.5 mL) subcut Q7D #2 mL 02/13/24 03/01/24 Rx subcutaneous pen injector (tirzepatide) tirzepatide 2.5 mg/0.5 mL mg subcut .Weekly 02/20/24 03/01/24 History subcutaneous pen injector (Mounjaro) atorvastatin 10 mg tablet (Lipitor) 10 mg PO HS #90 tabs 02/24/24 03/01/24 Rx duloxetine 20 mg capsule,delayed 20 mg PO BID #180 caps 02/24/24 03/01/24 Rx release (Cymbalta) empagliflozin 25 mg tablet 25 mg PO QAM #90 tabs 02/24/24 03/01/24 Rx (Jardiance) furosemide 20 mg tablet (Lasix) 20 mg PO QAM #90 tabs 02/24/24 03/01/24 Rx insulin aspart U-100 100 unit/mL 80 unit (0.8 mL) subcut DAILY #72 02/24/24 03/01/24 Rx (3 mL) subcutaneous pen (Novolog mL FlexPen U-100 Insulin aspart) pen needle, diabetic 31 gauge x #400 ea 02/24/24 03/01/24 Rx 3/16" (BD Ultra-Fine Mini Pen Needle) tadalafil 2.5 mg tablet 2.5 mg PO DAILY #90 tabs 02/24/24 03/01/24 Rx tamsulosin 0.4 mg capsule 0.4 mg PO HS #30 caps 02/24/24 03/01/24 Rx cholecalciferol (vitamin D3) 25 25 mcg PO DAILY 03/01/24 03/12/24 History mcg (1,000 unit) tablet (Vitamin D3) levofloxacin 500 mg tablet 500 mg PO DAILY 14 days #14 tabs 03/08/24 03/12/24 Rx oxycodone 5 mg tablet 5 mg PO Q6H PRN pain #12 tabs 03/08/24 03/12/24 Rx levofloxacin 500 mg tablet 500 mg PO DAILY 14 days #14 tabs 03/09/24 03/12/24 Rx oxycodone 5 mg tablet 5 mg PO Q6H PRN pain #12 tabs 03/09/24 03/12/24 Rx apixaban 2.5 mg tablet 2.5 mg PO BID 14 days #28 tabs 03/15/24 Rx cefadroxil 500 mg capsule 500 mg PO BID 3 weeks #42 caps 03/15/24 Rx oxycodone 5 mg tablet 5 mg PO Q6H PRN pain #30 tabs 03/15/24 Rx Patient History Medical History Hx of back injury Hx MRSA infection History of colon polyps Surgical History H/O kyphoplasty (2022) following L1 burst fracture Status post amputation of toe of left foot History of cardiac cath following an unexplained cardiac arrest>per medical record>11/05/21, [facility] [place], no stents Status post amputation of left great toe History of incision and drainage Hx of I&D of mendel-rectal abscess History of cataract surgery bilt History of cholecystectomy History of tooth extraction History of colonoscopy Colonoscopy 01/21/[address] Garg. History of adenoidectomy History of tonsillectomy Status post uvulopalatopharyngoplasty S/P foot surgery, left Family History Mother Family history of diabetes mellitus Father History of alcoholism History of liver cancer Sister Cancer Denies family history of Ovarian cancer Prostate cancer Crohn's disease Breast cancer Colorectal cancer Social History Smoking Status: Never smoker Tobacco Type: Declines Age Started Using Tobacco: 18; Age Quit Using Tobacco: 48; packs per day: 1.5; Second Hand Exposure: No; Do You Dip or Chew Tobacco: No; Tobacco Cessation Education Requested by Patient: No Hx Alcohol Use: Yes Alcohol type: wine Alcohol Intake Frequency: Monthly or Less Hx Substance Use: No Preferred Language: Montserratian Communication Ability: Effective Visual Impairment: No Limitations Hearing Ability: Normal Salesforce Trainer Required: No Beliefs That Will Affect Care: None marital status: Current Living Situation: Spouse Current Living Situation Comment: Lives with and dog current occupational status: employed 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 Other Information That Helps Us Care for You: No Feels Safe at Home: Yes Safety Concerns: Feels Safe At This Time Childhood Exposure to Second-Hand Smoke: Yes Diet: regular Diet Comment: "tries to feed me right, but sometimes it doesn't always happen" caffeine: Yes during the past year weight has: remained stable Physical Activity Frequency: Does not Exercise Seatbelt Use: never Do you think of yourself as: straight/heterosexual Assistive Devices: None Review of Systems Review of Systems: All systems reviewed & are unremarkable except as noted in HPI & below Physical Exam Physical Exam: Right lower extremity: -Dressings removed and skin examined. T he open wound noted medially was a transverse laceration approximately 3 cm proximal to the medial malleolus. This is reapproximated with nylon sutures without signs of active infection. The patient has significant edema about his right ankle as well as significant ecchymosis. No fracture blisters are noted. Patient demonstrates diffuse diminished sensation in a stocking-like distribution at baseline. Results & Data Vital Signs (Past 12 Hours) Vital Signs Temp Pulse Resp BP BP Pulse Ox O2 Del Method 03/17/24 07:24 36.8 C 118 H 20 118/70 92 Nasal Cannula 03/16/24 21:00 Nasal Cannula 03/16/24 20:51 36.6 C 104 H 18 128/78 128/78 98 Nasal Cannula O2 Flow Rate 03/17/24 07:24 2 03/16/24 21:00 2 03/16/24 20:[address], x-ray of the right ankle were personally interpreted and reviewed. Initially, the patient had a open right ankle fracture/dislocation that has had an interval placement of a external fixator and a closed reduction. Patient is also had imaging done of the left side which has been reviewed for completeness sake. This demonstrates findings concerning for osteomyelitis in the forefoot. (3) Diabetic neuropathy Diabetes mellitus complication detail: diabetic polyneuropathy Diabetes mellitus type: type 2 Qualified Code(s): E11.42 - Type 2 diabetes mellitus with diabetic polyneuropathy
[2024-03-17 09:07] LABS: Estimated Average Glucose 126 mg/dl
--- NOTE | 2024-03-17 09:45 | XRay Report ---
XR ankle RT 2V HISTORY: 68 years-old Male evaluate reduction s/p exfix placement COMPARISON: 03/13/2024 TECHNIQUE: 2 views of the right ankle FINDINGS: Acute fractures of the distal fibula and medial malleolus redemonstrated. There is mild apex lateral angulation with a few millimeters of lateral displacement involving the distal fibular fracture. 7 mm distal distraction of the medial malleolar fracture fragment. Moderate diffuse soft tissue swelling. External fixation hardware in place. IMPRESSION: Acute distal fibular and medial malleolar fractures redemonstrated with external fixation hardware in place. ACT 112: Negative or not required by law. The above report was generated using voice recognition software. It may contain grammatical, syntax o r spelling errors. Electronically signed by: Giovanni Moreno M.D. 03/17/2024 9:44 AM
--- NOTE | 2024-03-17 12:54 | Hospitalist Progress Note ---
Date of Service March 17, 2024 Assessment & Plan (1) Open fracture dislocation of ankle: Plan: Sustained the open fracture dislocation taken to the operating room on 03/[address] Chepe Daly for ORIF and washout On Rocephin and Levaquin PT/OT following, recommending rehab. Orthopedics have deemed patient medically stable from their standpoint for discharge. Patient may have further surgery on 03/18 pending podiatry recommendations and he will also need referred to rehab so patient has been assigned to our service now for further care. consult from foot/ankle ortho pending. CBC reviewed 03/17: hgb 8, WBC w/o leukocytosis BMP reviewed 03/17: creatinine improved to 2.03, BUN 43 encourage PO hydration. (2) Diabetic nephropathy associated with type 2 diabetes mellitus: Plan: this patient is on many medications including insulin Mounjaro metformin he will be reduced to basal bolus insulin while in the hospital prehospital osteomyelitis of feet(?), pt was on levaquin, has seen Dr Mccray in the past. CT right foot 03/14: extensive, diffuse cellulitis w/ most prominent induration medical to the distal tibia. No organized or drainable collection. scattered gas likely is related to open nature of the fracture and oeprative manipulation. gas-forming anaerobic infx not completed excluded CT left foot 03/14: induration and probable disorganized abscess noted plantar lateral to the distal 5th metatarsal. no ct evidence osteomyelitis MRI left foot 03/14: amputated left first and 2nd toes. bone resorption of 5th metatarsal head w/ soft tissue mass at plantar aspect. ddx: gout vs septic arthritis. arthritic changes at intertarsal and tarsometatarsal articulations. atrophic fatty infiltration of foot musculature. subcutaneous edema of foot. Podiatry consulted, reviewed recommendations. recommending surgery including a 5th ray resection or transmetatarsal amputation. can tentatively be performed on 03/18 per documentation. Johnnie diaz, NPO after midnight. Patient w/ episode of hypoglycemia 03/16 treated with 45gm carbs. consulted pharmacy for aide in glycemic management. Currently on Lantus and Sliding scale while in patient. (3) CAD (coronary artery disease): Plan: history of cardiac arrest, non occlusive CAD, previously preserved LV function Typically on aspirin and atorvastatin Patient takes Lasix 20 mg a day, unclear EF % (4) CKD (chronic kidney disease): Plan: ckd 3 stable creatinine improved to 2.03, BUN stable at 43 encourage pO hydration AM CBC, BMP Plan BPH continue tamsulosin tim will continue NIPPV updated with plan of care via phone 03/17. Admission and Anticipated Discharge Date Admission Date: March 13, 2024 Subjective Patient seen and examined this morning. Patient reports to be doing okay today. He denied any complaints. Physical Exam Constitutional: WD/WN, vitals as above Eyes: PERRL, conjunctivae normal, anicteric sclerae Respiratory: breathing unlabored Cardiovascular: well perfused Psychiatric: A+Ox3, euthymic affect Results & Data Results & Data Vital Signs (Past 12 Hours) Vital Signs Temp Pulse Resp BP Pulse Ox O2 Del Method O2 Flow Rate 03/17/24 10:35 Room Air 03/17/24 10:04 93 Room Air 03/17/24 07:24 36.8 C 118 H 20 118/70 92 Nasal Cannula 2 PG Care Time/CCT Total # of Minutes Spent Total Time Spent with Patient: Total time spent is greater than 50% in coordination of care (as documented) at patient's floor/unit and/or counseling patient: Coding Level of Care Code 34202 SUB INP/OBS CARE 2/35MIN Diagnoses Type III open fracture dislocation of right ankle, initial encounter S82.891C Encounter type: initial encounter Laterality: right Open fracture type: open type III Diabetic nephropathy associated with type 2 diabetes mellitus E11.21 CAD (coronary artery disease) I25.10 CKD (chronic kidney disease) N18.9 (1) Open fracture dislocation of ankle Encounter type: initial encounter Laterality: right Open fracture type: open type III Qualified Code(s): S82.891C - Other fracture of right lower leg, i nitial encounter for open fracture type IIIA, IIIB, or IIIC
--- NOTE | 2024-03-17 13:24 | Pharmacy Report ---
Pharmacy Glycemic Short Note 2 - Date of Service March 17, 2024 - Glycemic Short BSG Results (Last 24 hours): 03/16/24 03/16/24 03/16/24 15:27 15:45 16:02 Glucose POC Glucose 46 L* 57 L* 79 03/16/24 03/16/24 03/17/24 16:29 20:33 06:31 Glucose 59 L POC Glucose 94 148 H 03/17/24 03/17/24 03/17/24 07:31 07:33 07:59 Glucose POC Glucose 64 L* 67 L* 74 03/17/24 11:28 Glucose POC Glucose 97 OUTPATIENT ANTIDIABETIC REGIMEN: * Lantus 70 units SQ qAM * Novolog SSI * Jardiance 25mg PO qAM * Metformin 500mg PO BID * Mounjaro 2.5mg SQ weekly * HbA1c: 6.0% (03/17/24) ASSESSMENT: * Mr Alvarado is a 68yo diabetic M admitted with R open ankle fx. * Pt is scheduled to go to the OR tomorrow for L foot amputation, and will be NPO p midnight. * Pt had an episode of symptomatic hypoglycemia (BSG 46) yesterday evening. Pharmacy glycemic consult was then placed. * Lantus dose was reduced significantly this morning. Carb ratio was removed from Novolog. Will hold metformin after today's dose in preparation for OR tomorrow. * Pharmacy will continue to follow during admission and adjust regimen as indicated. PLAN FOR INPATIENT GLYCEMIC CONTROL: * Hold outpatient oral diabetes medications * Basal insulin * Lantus 20 units SQ daily * Bolus insulin * NovoLog per scale ACHS or Q6hrs while NPO * Goal Range: Low 110 mg/dL - High 140 mg/dL * Correction Factor: 25 mg/dL/unit * Nutritional / Prandial insulin per carb ratio: none at this time
[2024-03-17] MEDS: D5W AND 1/2NSS 1,000 ML IV SCH (21:22)
[2024-03-18] MEDS ORDERED: Nursing to Pharmacy Communication SCH ×3 (00:45→17:00)
[2024-03-18 05:14] LABS: Hematocrit (blood only) 26.7 % (42.0-52.0); Hemoglobin 8.5 g/dl (14.0-18.0); Mean Corpuscular Hemoglobin 26.9 pg (25.0-34.0); Mean Corpuscular Hgb Conc 31.8 g/dL (32.0-36.0); Mean Corpuscular Volume 84.5 fL (80.0-100.0); Mean Platelet Volume 8.7 fL (9.4-12.4); Platelet Count 179 K/uL (130-400); RDW Coefficient of Variation 13.9 % (11.5-14.5); RDW Standard Deviation 42.9 fL (36.4-46.3); Red Blood Count 3.16 M/uL (4.70-6.10); White Blood Count 5.84 K/ul (4.8-10.8)
[2024-03-18 05:32] LABS: BUN Creatinine Ratio 20.3 (10-20); Calcium 8.5 mg/dl (8.6-10.3); Creatinine Clr Calc Pharmacy 56.1 ml/min; Potassium 4.3 mmol/L (3.5-5.1)
[2024-03-18] MEDS: INSULIN ASPART PER UNIT CHARGE SC SCH ×2 (06:01→12:37)
--- NOTE | 2024-03-18 06:52 | Anesthesiology Consultation ---
Date of Service March 18, 2024 Assessment & Plan (1) Encounter for pre-operative examination: Chart Review Chart Review: Acceptable Risk for Surgery and Patient NOT seen in Pre Admission Testing Consults Requested none History Surgery Operation Date: 03/13/24 18:00 Proposed Procedures p External Fixator Application - Chepe Daly DO Operation Date: 03/18/24 10:00 Proposed Procedures p Left Foot Amputation Transmetatarsal - Ariel Mccray DPM Height/Weight Height: 5 ft 9 in Weight: 170.4 kg Allergies Allergy/AdvReac Type Severity Reaction Status Date / Time No Known Allergies Allergy Verified 03/12/24 11:06 Medications Home Medications Medication Instructions Recorded Confirmed Last Taken aspirin 81 mg chewable tablet 81 mg PO QAM 07/26/20 03/01/24 04/01/22 lancets (Accu-Chek Fastclix Lancet 08/23/20 03/01/24 Unknown Drum) FreeStyle Remigio 2 [place] (flash #1 ea 01/24/21 03/01/24 Unknown glucose scanning reader) FreeStyle Remigio 2 Sensor (flash #7 ea 01/24/21 03/01/24 Unknown glucose sensor) mecobalamin (vitamin B12) 1,000 1,000 mcg PO QAM 01/17/22 03/01/24 04/01/22 mcg lozenges aluminum-mag hydroxide-simethicone 10 ml PO TID PRN .gi-upset 03/03/23 03/01/24 Unknown 400 mg-400 mg-40 mg/5 mL oral susp (Mylanta Maximum Strength) insulin glargine 100 unit/mL (3 70 unit subcut QAM 05/12/23 03/01/24 Unknown mL) subcutaneous pen (Basaglar KwikPen U-100 Insulin) metformin 500 mg tablet 500 mg PO BID 90 days #180 tabs 06/24/23 03/01/24 Unknown blood sugar diagnostic (Accu-Chek #100 ea 09/09/23 03/01/24 Unknown Guide test strips) pantoprazole 40 mg tablet,delayed 40 mg PO BID #180 tabs 09/09/23 03/01/24 Unknown release (Protonix) albuterol sulfate 90 mcg/actuation 2 puff inhalation .Q4-6H PRN 11/25/23 03/01/24 Unknown aerosol inhaler shortness of breath or wheezing #6.7 grams cyanocobalamin (vitamin B-12) 1,000 mcg PO DAILY 12/26/23 03/01/24 Unknown 1,000 mcg capsule Saccharomyces boulardii 250 mg 250 mg PO BID #60 caps 01/13/24 03/01/24 Unknown capsule (Florastor) sodium zirconium cyclosilicate 10 10 g PO DAILY #30 ea 01/29/24 03/01/24 Unknown gram oral powder packet Mounjaro 2.5 mg/0.5 mL 2.5 mg (0.5 mL) subcut Q7D #2 mL 02/13/24 03/01/24 Unknown subcutaneous pen injector (tirzepatide) tirzepatide 2.5 mg/0.5 mL mg subcut .Weekly 02/20/24 03/01/24 Unknown subcutaneous pen injector (Mounjaro) atorvastatin 10 mg tablet (Lipitor) 10 mg PO HS #90 tabs 02/24/24 03/01/24 Unknown duloxetine 20 mg capsule,delayed 20 mg PO BID #180 caps 02/24/24 03/01/24 Unknown release (Cymbalta) empagliflozin 25 mg tablet 25 mg PO QAM #90 tabs 02/24/24 03/01/24 Unknown (Jardiance) furosemide 20 mg tablet (Lasix) 20 mg PO QAM #90 tabs 02/24/24 03/01/24 Unknown insulin aspart U-100 100 unit/mL 80 unit (0.8 mL) subcut DAILY #72 02/24/24 03/01/24 Unknown (3 mL) subcutaneous pen (Novolog mL FlexPen U-100 Insulin aspart) pen needle, diabetic 31 gauge x #400 ea 02/24/24 03/01/24 Unknown 3/16" (BD Ultra-Fine Mini Pen Needle) tadalafil 2.5 mg tablet 2.5 mg PO DAILY #90 tabs 02/24/24 03/01/24 Unknown tamsulosin 0.4 mg capsule 0.4 mg PO HS #30 caps 02/24/24 03/01/24 Unknown cholecalciferol (vitamin D3) 25 25 mcg PO DAILY 03/01/24 03/12/24 Unknown mcg (1,000 unit) tablet (Vitamin D3) levofloxacin 500 mg tablet 500 mg PO DAILY 14 days #14 tabs 03/08/24 03/12/24 Unknown oxycodone 5 mg tablet 5 mg PO Q6H PRN pain #12 tabs 03/08/24 03/12/24 Unknown levofloxacin 500 mg tablet 500 mg PO DAILY 14 days #14 tabs 03/09/24 03/12/24 Unknown oxycodone 5 mg tablet 5 mg PO Q6H PRN pain #12 tabs 03/09/24 03/12/24 Unknown apixaban 2.5 mg tablet 2.5 mg PO BID 14 days #28 tabs 03/15/24 Unknown cefadroxil 500 mg capsule 500 mg PO BID 3 weeks #42 caps 03/15/24 Unknown oxycodone 5 mg tablet 5 mg PO Q6H PRN pain #30 tabs 03/15/24 Unknown Active Medications Generic Name Dose Route Start Last Admin Trade Name Freq PRN Reason Stop Dose Admin Apixaban 2.5 mg 03/13/24 21:00 03/16/24 20:53 Apixaban 2.5 Mg Tab PO 04/12/24 20:59 2.5 mg BID LIANA Administration Aspirin 81 mg 03/14/24 09:00 03/17/24 08:34 Aspirin 81 Mg Chew PO 04/13/24 08:59 81 mg QAM LIANA Administration Atorvastatin Calcium 10 mg 03/13/24 21:00 03/17/24 21:22 Atorvastatin 10 Mg Tab PO 04/12/24 20:59 10 mg HS LIANA Administration Chlordiazepoxide HCl 10 mg 03/14/24 21:00 03/17/24 21:23 Chlordiazepoxide Hcl 10 Mg Cap PO 04/13/24 20:59 10 mg BID LIANA Administration Duloxetine HCl 20 mg 03/13/24 21:00 03/17/24 21:23 Duloxetine Hcl 20 Mg Cap PO 04/12/24 20:59 20 mg BID LIANA Administration Furosemide 20 mg 03/14/24 09:00 03/17/24 08:33 Furosemide 20 Mg Tab PO 04/13/24 08:59 20 mg QAM LIANA Administration Ceftriaxone Sodium 2,000 mg in 50 mls @ 100 mls/hr 03/14/24 14:00 03/17/24 14:19 Rocephin IV 04/25/24 13:59 Infused Q24H LIANA Infusion Dextrose/Sodium Chloride 1,000 mls @ 80 mls/hr 03/17/24 21:00 03/17/24 21:22 D5w And 1/2nss IV 03/18/24 20:59 80 mls/hr .[id number] LIANA Administration Insulin Aspart 0 units 03/18/24 06:00 03/18/24 06:01 Insulin Aspart Per Unit Charge SC 04/17/24 05:59 Not Given Q6 LIANA Insulin Glargine 20 units 03/17/24 09:00 03/17/24 08:46 Lantus Per Unit Charge SQ 04/13/24 08:59 20 units QAM LIANA Administration Levofloxacin 750 mg 03/15/24 11:00 03/17/24 11:16 Levofloxacin 750 Mg Tab PO 04/26/24 10:59 750 mg Q2D@1100 LIANA Administration Protocol Lorazepam 0.5 mg 03/14/24 12:55 03/14/24 20:11 Lorazepam 2 Mg/1 Ml Vial IV 04/13/24 12:54 0.5 mg Q6H PRN Administration Anxiety/Agitation/nausea Metformin HCl 500 mg 03/14/24 08:00 03/17/24 16:43 Metformin Hcl 500 Mg Tab PO 04/13/24 07:59 500 mg BIDM LIANA Administration Miscellaneous 1 each 03/14/24 00:00 03/17/24 21:50 Mounjaro 2.5 Mg - Order Awaiting Action N/A 04/13/24 00:00 Not Given QS LIANA Miscellaneous 15 - 30 gm 03/13/24 22:45 03/17/24 07:38 Carbohydrates For Hypoglycemia PO 04/12/24 22:44 15 gm UD PRN Administration Hypoglycemia Treatment Morphine Sulfate 2 mg 03/14/24 01:04 03/15/24 10:50 Morphine Sulfate 2 Mg/Ml Carp IV 03/28/24 01:03 2 mg Q3H PRN Administration Pain Ondansetron HCl 4 mg 03/13/24 20:38 03/15/24 10:43 Ondansetron Inj 2 Mg/Ml 2 Ml Vial IV 04/12/24 20:37 4 mg Q6H PRN Administration Nausea/Vomiting Oxycodone/Acetaminophen 1 - 2 tab 03/13/24 20:38 03/16/24 14:09 Oxycodone/Acetaminophen 5mg/325mg Tab PO 03/27/24 20:37 2 tab Q4H PRN Administration Pain Pantoprazole Sodium 40 mg 03/13/24 21:00 03/17/24 21:23 Pantoprazole 40 Mg Tab PO 04/12/24 20:59 40 mg BID LIANA Administration Polyethylene Glycol 17 gm 03/15/24 21:00 03/17/24 19:38 Polyethylene (Miralax) 17 Gm Pack PO 04/14/24 20:59 17 gm BID LIANA Administration Saccharomyces Boulardii 250 mg 03/13/24 21:00 03/17/24 21:23 Saccharomyces Boulardii 250 Mg Cap PO 04/12/24 20:59 250 mg BID LIANA Administration Sodium Zirconium Cyclosilicate 10 gm 03/14/24 11:00 03/17/24 11:16 Sodium Zirconium Cyclosilicate 10 Gm Packet PO 04/13/24 10:59 10 gm DAILY@1100 LIANA Administration Tamsulosin HCl 0.4 mg 03/13/24 21:00 03/17/24 21:23 Tamsulosin Hcl 0.4 Mg Cap PO 04/12/24 20:59 0.4 mg HS LIANA Administration NPO Date Last Intake of Fluids: 03/13/24 Time Last Intake of Fluids: 13:00 Last Intake of Fluids Comment: water Date Last Intake of Solids: 03/13/24 Time Last Intake of Solids: 11:00 Last Intake of Solids Comment: cupcake fig bar Past Medical History Medical History Hx of back injury Hx MRSA infection History of colon polyps Past Family History Family History Mother Family history of diabetes mellitus Father History of alcoholism History of liver cancer Sister Cancer Denies family history of Ovarian cancer Prostate cancer Crohn's disease Breast cancer Colorectal cancer Past Surgical History Surgical History H/O kyphoplasty (2022) following L1 burst fracture Status post amputation of toe of left foot History of cardiac cath following an unexplained cardiac arrest>per medical record>11/05/21, [facility], no stents Status post amputation of left great toe History of incision and drainage Hx of I&D of mendel-rectal abscess History of cataract surgery bilt History of cholecystectomy History of tooth extraction History of colonoscopy Colonoscopy 01/21/[address] Garg. History of adenoidectomy History of tonsillectomy Status post uvulopalatopharyngoplasty S/P foot surgery, left Social History Smoking Status: Never smoker tobacco type: cigarettes Do You Dip or Chew Tobacco: No Hx Alcohol Use: Yes Alcohol type: wine alcohol intake frequency: holidays/special occasions only Hx Substance Use: No substance use type: does not use Physical Exam Vital Signs Last Vital Signs Temp 97.9 F 03/17/24 21:00 Pulse 91 H 03/17/24 21:00 Resp 20 03/17/24 21:00 BP 135/88 03/17/24 21:00 Pulse Ox 94 03/17/24 21:00 O2 Del Method Room Air 03/17/24 21:00 O2 Flow Rate 2 03/17/24 07:24 Testing Laboratory Results 03/18/24 04:25 03/18/24 04:25 Hemoglobin A1c 6.0 % (4.5-5.6) H 03/17/24 06:31 03/15/24 12:40 Gram Stain - Final Foot Aerobic and Anaerobic Culture - Preliminary Staphylococcus pseudintermediu 03/18/24 03/17/24 05:54 20:45 POC Glucose 84 102 H Electrocardiogram Date: 03/03/23 Findings: + NSR @ premature supraventricular complexes Echocardiogram Date: 11/05/21 EF: >70% Other Findings: + diastolic dysfunction (G1)
[2024-03-18] MEDS ORDERED: ePHEDrine sulfate 50 MG/ML AMP IV PRN (09:27)
[2024-03-18] MEDS ORDERED: fentaNYL citrate PF 100 MCG/2 ML VIAL IV PRN (09:27)
[2024-03-18] MEDS ORDERED: ATROPINE SULFATE 0.1 MG/ML 10ML SYR IV PRN (09:27)
[2024-03-18] MEDS ORDERED: ONDANSETRON INJ 2 MG/ML 2 ML VIAL IV PRN (09:27)
--- NOTE | 2024-03-18 09:52 | History & Physical Bridge Note ---
Date of Service March 18, 2024 History & Physical Bridge Note I have examined the patient, reviewed the History & Physical and in the interval since the performance of the History & Physical I have noted the following changes of clinical significance: no changes noted. Plan for left foot transmetatarsal amputation. Preop and postop instructions discussed, consent obtained. All questions answered.
[2024-03-18] MEDS ORDERED: ROCURONIUM BROMIDE 10 MG/ML 5 ML VIAL IV ONE (09:58)
[2024-03-18] MEDS ORDERED: PROPOFOL IV EMULSION 10 MG/ML 20 ML VIAL IV ONE (09:58)
[2024-03-18] MEDS ORDERED: LIDOCAINE 2% 2 ML VIAL/AMP(20MG/ML) INFIL ONE (09:59)
[2024-03-18] MEDS ORDERED: SODIUM CHLORIDE 0.9% 1,000 ML IV SCH (10:00)
[2024-03-18] MEDS ORDERED: PHENYLEPHRINE 100MCG/ML 5ML SYR ONE (10:24)
[2024-03-18] MEDS: BUPIVACAINE 0.5 % 5 MG/1 ML MPF 30ML VIAL ONE (10:28)
[2024-03-18] MEDS ORDERED: NEOSTIGMINE METHYLSULFATE 1 MG/ML 10ML VIAL ONE (10:44)
[2024-03-18] MEDS ORDERED: GLYCOPYRROLATE 0.2 MG/ML VIAL ONE ×2 (10:44)
--- NOTE | 2024-03-18 10:55 | Post Operative Brief Note ---
Immediate Post Op Note Date of Surgery March 18, 2024 Pre & Post Diagnosis Preoperative diagnosis: Left fifth metatarsal osteomyelitis Postoperative diagnosis: same I identified the patient and participated in the time-out.: Yes Procedure Left foot transmetatarsal amputation Surgeon Ariel Mccray, DPM Partnership Marketing Manager None Estimated Blood Loss 0 Findings Consistent with Post-Op Diagnosis Plantar ulceration extended to the proximal aspect of the fifth metatarsal. This did require more resection of the fifth metatarsal and expected. Because there was no extension medially, the first and second metatarsals were left intact. He may require a reconstructive or elective procedure in the future to shorten the medial columns, though as long as he develops no further ulcerations, he may be able to avoid this. Specimens Left fifth metatarsal bone culture Left fifth metatarsal proximal margin Left forefoot gross pathology Drains Sam Catheter Anesthesia Type General Complications none Disposition Accompanied Patient To Recovery: Yes Disposition: Recovery Room
--- NOTE | 2024-03-18 12:17 | Anesthesiology Progress Note ---
Date of Service March 18, 2024 Anesthesia Post Procedure Vital Signs Vital Signs: Temp Pulse Pulse Resp BP BP Pulse Ox 03/18/24 11:35 97.5 F L 89 21 126/84 96 03/18/24 11:25 91 H 20 114/90 95 03/18/24 11:15 106 H 20 117/90 95 03/18/24 11:05 97.7 F 110 H 20 145/96 H 100 03/18/24 09:43 97.9 F 76 18 123/76 93 03/18/24 07:42 98.2 F 88 16 118/68 96 03/18/24 07:35 03/17/24 21:00 97.9 F 91 H 20 135/88 94 03/17/24 20:00 03/17/24 15:27 97.9 F 102 H 20 113/69 97 O2 Del Method O2 Flow Rate 03/18/24 11:35 Nasal Cannula 2 03/18/24 11:25 Room Air 03/18/24 11:15 Oxymask 5 03/18/24 11:05 Oxymask 5 03/18/24 09:43 Room Air 03/18/24 07:42 Room Air 03/18/24 07:35 Room Air 03/17/24 21:00 Room Air 03/17/24 20:00 Room Air 03/17/24 15:27 Room Air Pain Intensity Right Leg: Pain Intensity: 6 Transfer of Care Handoff Completed per policy Notes Mental Status: alert / awake / arousable and participated in evaluation Patient Amnestic to Procedure: Yes Nausea / Vomiting: adequately controlled Pain: adequately controlled Airway Patency, RR, SpO2: stable & adequate BP & HR: stable & adequate Hydration State: stable & adequate Anesthetic Complications: no major complications apparent and Pt Satisfied with anesthetic care
--- NOTE | 2024-03-18 14:25 | Hospitalist Progress Note ---
Date of Service March 18, 2024 Assessment & Plan (1) Chronic ulcer of left foot with necrosis of bone: Plan: Patient w/ hx of osteomyelitis on chronic abx therapy of Levaquin outpatient. CT right foot 03/14: extensive, diffuse cellulitis w/ most prominent induration medical to the distal tibia. No organized or drainable collection. scattered gas likely is related to open nature of the fracture and operative manipulation. CT left foot 03/14: induration and probable disorganized abscess noted plantar lateral to the distal 5th metatarsal. no ct evidence osteomyelitis MRI left foot 03/14: amputated left first and 2nd toes. bone resorption of 5th metatarsal head w/ soft tissue mass at plantar aspect. ddx: gout vs septic arthritis. arthritic changes at intertarsal and tarsometatarsal articulations. atrophic fatty infiltration of foot musculature. subcutaneous edema of foot. culture of left foot from 03/15 + for staph pseudintermediu sensitivities w/ resistance to multiple abx. switch antibiotics from Rocephin and Levaquin to IV Daptomycin hold Statin while on daptomycin Consult infectious disease given complexity of patient's wounds. Podiatry consulted, recommending surgery including a 5th ray resection or transmetatarsal amputation. left transmetatarsal amputation completed on 03/18. wound culture from surgery pending. CBC reviewed 03/18: negative for leukocytosis, hgb 8.5 BMP reviewed 03/18: creatinine improved to 1.97, BUN 40 encourage PO hydration. (2) Open fracture dislocation of ankle: Plan: Sustained the open fracture dislocation taken to the operating room on 03/[address] Chepe Daly for ORIF and washout Orthopedics have deemed patient medically stable from their standpoint for discharge, patient transferred to hospitalist service for further care on 03/16 Dr. Shin consulted 03/17, reviewed recommendations on 03/18 options for definitive correction include open reduction internal fixation of ankle fx w/ extensive syndesmotic fixation vs acute tibial talocalcaneal arthrodesis. patient extremely high risk for infection he is to follow up in orthopedic office after discharge to discuss further plans. PT/OT following, recommending rehab. Discussed w/ CM 03/18 that following his operation he is medically stable for discharge now. (3) Diabetic nephropathy associated with type 2 diabetes mellitus: Plan: this patient is on many medications including insulin, Mounjaro, and metformin Patient w/ recurrent hypoglycemic episodes while inpatient. Pharmacy was consulted to aid in glycemic management Lantus discontinued. Loosened parameters on SSI Range: 110 - 140 mg/dL CF 25, no carb ratio. (4) CAD (coronary artery disease): Plan: history of cardiac arrest, non occlusive CAD, previously preserved LV function Typically on aspirin and atorvastatin Patient takes Lasix 20 mg a day, unclear EF % (5) CKD (chronic kidney disease): Plan: ckd 3 stable creatinine improved to 1.97, BUN stable at 43 encourage pO hydration AM CBC, BMP Plan Chronic conditions: BPH continue tamsulosin tim will continue NIPPV updated at bedside 03/18. Admission and Anticipated Discharge Date Admission Date: March 13, 2024 Subjective Patient seen and examined this afternoon following surgery. Patient still has not had a BM in several days despite daily Miralax. Patient underwent a left foot amputation transmetatarsal this morning w/ Dr. Mccray. Patient felt well after surgery. Overnight he also experienced a laceration on his left foot from his external fixator on his right foot. Patient has chronic neuropathy and does not feel pain in his feet. at bedside. Physical Exam Constitutional: WD/WN, vitals as above Eyes: PERRL, conjunctivae normal, anicteric sclerae Respiratory: breathing unlabored Cardiovascular: well perfused Psychiatric: A+Ox3, euthymic affect Results & Data Results & Data Vital Signs (Past 12 Hours) Vital Signs Temp Pulse Pulse Resp BP BP Pulse Ox 03/18/24 13:47 36.8 C 79 18 136/69 97 03/18/24 12:50 36.6 C 81 18 150/77 H 96 03/18/24 12:20 36.7 C 90 18 129/68 95 03/18/24 12:17 36.2 C L 95 H 18 118/77 95 03/18/24 11:35 36.4 C L 89 21 126/84 96 03/18/24 11:25 91 H 20 114/90 95 03/18/24 11:15 106 H 20 117/90 95 03/18/24 11:05 36.5 C 110 H 20 145/96 H 100 03/18/24 09:43 36.6 C 76 18 123/76 93 03/18/24 07:42 36.8 C 88 16 118/68 96 03/18/24 07:35 O2 Del Method O2 Flow Rate 03/18/24 13:47 Room Air 03/18/24 12:50 Room Air 03/18/24 12:20 Room Air 03/18/24 12:17 Room Air 03/18/24 11:35 Nasal Cannula 2 03/18/24 11:25 Room Air 03/18/24 11:15 Oxymask 5 03/18/24 11:05 Oxymask 5 03/18/24 09:43 Room Air 03/18/24 07:42 Room Air 03/18/24 07:35 Room Air PG Care Time/CCT Total # of Minutes Spent Total Time Spent with Patient: Total time spent is greater than 50% in coordination of care (as documented) at patient's floor/unit and/or counseling patient: Coding Level of Care Code 06220 SUB INP/OBS CARE 3/50MIN Diagnoses Chronic ulcer of left foot with necrosis of bone L97.524 Type III open fracture dislocation of right ankle, initial encounter S82.891C Encounter type: initial encounter Laterality: right Open fracture type: open type III Diabetic nephropathy associated with type 2 diabetes mellitus E11.21 CAD (coronary artery disease) I25.10 CKD (chronic kidney disease) N18.9 (2) Open fracture dislocation of ankle Encounter type: initial encounter Laterality: right Open fracture type: open type III Qualified Code(s): S82.891C - Other fracture of right lower leg, initial encounter for open fracture type IIIA, IIIB, or IIIC
[2024-03-18] MEDS ORDERED: VANCOMYCIN CONSULT ACTIVE PRN ×2 (15:12)
[2024-03-18] MEDS ORDERED: VANCOMYCIN HCL 2,750 MG in SODIUM CHLORIDE 0.9% 500 ML IV ONE (15:12)
[2024-03-18] MEDS: bisacodyL 10 MG SUPP PR PRN (15:38)
--- NOTE | 2024-03-18 16:20 | Infectious Disease Consult ---
Date of Consultation March 18, 2024 Assessment & Plan (1) Acute osteomyelitis of left foot: (2) Diabetic neuropathy: (3) Diabetic foot ulcer: (4) Diabetic nephropathy associated with type 2 diabetes mellitus: (5) CKD stage 3 due to type 2 diabetes mellitus: Plan 68yo M with h/o Diabetes, advanced neuropathy in bl LE, toe amputations on left 6yrs ago, right foot wounds, recent diabetic foot infection with possible left foot OM in 12/2023 (was tx with vanc/zosyn at [facility], sent to rehab on PO clindamycin with doxycycline added later, ultimately put on levofloxacin 250mg qd until ID f/u on 03/24/24), CHRISTINA, CKD III, BPH who presented on 03/13 after a fall and twisted his ankle resulting in an open fracture dislocation of right tibiotalar joint. Afebrile, vss. No leukocytosis, Cr 1.86>>1.97. XR right foot with acute fracture dislocation of the right ankle with open tibial fracture component. CXR with interstitial markings. S/p I+D and external fixator of right foot on 03/13. He was seen by podiatry after he was noted to have continued left foot ulceration and infection. Left foot MRI with bone resorption of 5th MT head with soft tissue mass at its plantar aspect, possibilities include erosive arthritis, gout, septic arthritis. Left foot CT with induration and probable disorganized abscess noted plantar lateral to the distal fifth metatarsal; no CT evidence of osteomyelitis. R foot CT with extensive, diffuse cellulitis with most prominent induration medial to the distal tibia, no organized or drainable collection, no OM. S/p OR 03/18 and underwent left foot transmetatarsal amputation (left 5th MT bone cx, proximal margin, and gross path was sent). He h as been getting empiric IV abx, currently on daptomycin. ID consulted 03/18. No telepresenter available this afternoon. Continue on daptomycin based on cultures from 03/15. Will f/u path and OR cultures to determine final regimen of abx. # Left foot infection w/ c/f OM s/p amputation 03/18 # Right ankle fracture s/p surgery # h/o Diabetes # H/o prior left foot OM treatment in 12/2023 - f/u OR cultures and path - continue on daptomycin - final regimen/duration pending above - if no residual OM then shorter course of abx ID will continue to follow. If questions or concerns, contact via [employer] or Infectious Disease Call Center . Becka Eaton MD [facility], Division of Infectious Diseases Consultation Information This patient recommendation is based on a telemedicine consult request which was completed asynchronously through chart review and information provided by the primary physician. The patient was not seen or examined today. The evaluation is consultative in nature and all patient care and treatment decisions can either be accepted or rejected by the patient's primary hospital-based treating physician using their own independent medical judgment for their patient. Getter Operator contact information: Please call [facility] Call Center [phone]. (Phone Number For Physician Use Only) Time Spent Reviewing Chart: 31+ minutes History of Present Illness Reason for Consultation: foot wound Attending Physician: Tacho Berman History of Present Illness 68yo M with h/o Diabetes, advanced neuropathy in bl LE, toe amputations on left 6yrs ago, right foot wounds, recent diabetic foot infection with possible left foot OM in 12/2023 (was tx with vanc/zosyn at [facility], sent to rehab on PO clindamycin with doxycycline added later, ultimately put on levofloxacin 250mg qd until ID f/u on 03/24/24), CHRISTINA, CKD III, BPH who presented on 03/13 after a fall and twisted his ankle resulting in an open fracture dislocation of right tibiotalar joint. S/p I+D and external fixator of right foot on 03/13. He was seen by podiatry after he was noted to have continued left foot ulceration and infection. He had a CT and MRI of this left foot which revealed findings c/f underlying bone infection. S/p OR 03/18 and underwent left foot transmetatarsal amputation (left 5th MT bone cx, proximal margin, and gross path was sent). He has been afebrile, vss. No leukocytosis, Cr 1.86>>1.97. XR right foot with acute fracture dislocation of the right ankle with open tibial fracture component. CXR with interstitial markings. Left foot MRI with bone resorption of 5th MT head with soft tissue mass at its plantar aspect, possibilities include erosive arthritis, gout, septic arthritis. Left foot CT with induration and probable disorganized abscess noted plantar lateral to the distal fifth metatarsal; no CT evidence of osteomyelitis. R foot CT with extensive, diffuse cellulitis with most prominent induration medial to the distal tibia, no organized or drainable collection, no OM. He has been getting empiric IV abx, currently on daptomycin. ID consulted 03/18. Allergies Allergy/AdvReac Type Severity Reaction Status Date / Time No Known Allergies Allergy Verified 03/12/24 11:06 Home Medications Medication Instructions Recorded Confirmed Type aspirin 81 mg chewable tablet 81 mg PO QAM 07/26/20 03/01/24 History lancets (Accu-Chek Fastclix Lancet 08/23/20 03/01/24 History Drum) FreeStyle Remigio 2 [place] (flash #1 ea 01/24/21 03/01/24 Rx glucose scanning reader) FreeStyle Remigio 2 Sensor (flash #7 ea 01/24/21 03/01/24 Rx glucose sensor) mecobalamin (vitamin B12) 1,000 1,000 mcg PO QAM 01/17/22 03/01/24 History mcg lozenges aluminum-mag hydroxide-simethicone 10 ml PO TID PRN .gi-upset 03/03/23 03/01/24 History 400 mg-400 mg-40 mg/5 mL oral susp (Mylanta Maximum Strength) insulin glargine 100 unit/mL (3 70 unit subcut QAM 05/12/23 03/01/24 History mL) subcutaneous pen (Basaglar KwikPen U-100 Insulin) metformin 500 mg tablet 500 mg PO BID 90 days #180 tabs 06/24/23 03/01/24 Rx blood sugar diagnostic (Accu-Chek #100 ea 09/09/23 03/01/24 Rx Guide test strips) pantoprazole 40 mg tablet,delayed 40 mg PO BID #180 tabs 09/09/23 03/01/24 Rx release (Protonix) albuterol sulfate 90 mcg/actuation 2 puff inhalation .Q4-6H PRN 11/25/23 03/01/24 Rx aerosol inhaler shortness of breath or wheezing #6.7 grams cyanocobalamin (vitamin B-12) 1,000 mcg PO DAILY 12/26/23 03/01/24 History 1,000 mcg capsule Saccharomyces boulardii 250 mg 250 mg PO BID #60 caps 01/13/24 03/01/24 Rx capsule (Florastor) sodium zirconium cyclosilicate 10 10 g PO DAILY #30 ea 01/29/24 03/01/24 Rx gram oral powder packet Mounjaro 2.5 mg/0.5 mL 2.5 mg (0.5 mL) subcut Q7D #2 mL 02/13/24 03/01/24 Rx subcutaneous pen injector (tirzepatide) tirzepatide 2.5 mg/0.5 mL mg subcut .Weekly 02/20/24 03/01/24 History subcutaneous pen injector (Mounjaro) atorvastatin 10 mg tablet (Lipitor) 10 mg PO HS #90 tabs 02/24/24 03/01/24 Rx duloxetine 20 mg capsule,delayed 20 mg PO BID #180 caps 02/24/24 03/01/24 Rx release (Cymbalta) empagliflozin 25 mg tablet 25 mg PO QAM #90 tabs 02/24/24 03/01/24 Rx (Jardiance) furosemide 20 mg tablet (Lasix) 20 mg PO QAM #90 tabs 02/24/24 03/01/24 Rx insulin aspart U-100 100 unit/mL 80 unit (0.8 mL) subcut DAILY #72 02/24/24 03/01/24 Rx (3 mL) subcutaneous pen (Novolog mL FlexPen U-100 Insulin aspart) pen needle, diabetic 31 gauge x #400 ea 02/24/24 03/01/24 Rx 3/16" (BD Ultra-Fine Mini Pen Needle) tadalafil 2.5 mg tablet 2.5 mg PO DAILY #90 tabs 02/24/24 03/01/24 Rx tamsulosin 0.4 mg capsule 0.4 mg PO HS #30 caps 02/24/24 03/01/24 Rx cholecalciferol (vitamin D3) 25 25 mcg PO DAILY 03/01/24 03/12/24 History mcg (1,000 unit) tablet (Vitamin D3) levofloxacin 500 mg tablet 500 mg PO DAILY 14 days #14 tabs 03/08/24 03/12/24 Rx oxycodone 5 mg tablet 5 mg PO Q6H PRN pain #12 tabs 03/08/24 03/12/24 Rx levofloxacin 500 mg tablet 500 mg PO DAILY 14 days #14 tabs 03/09/24 03/12/24 Rx oxycodone 5 mg tablet 5 mg PO Q6H PRN pain #12 tabs 03/09/24 03/12/24 Rx apixaban 2.5 mg tablet 2.5 mg PO BID 14 days #28 tabs 03/15/24 Rx cefadroxil 500 mg capsule 500 mg PO BID 3 weeks #42 caps 03/15/24 Rx oxycodone 5 mg tablet 5 mg PO Q6H PRN pain #30 tabs 03/15/24 Rx Patient History Medical History Hx of back injury Hx MRSA infection History of colon polyps Surgical History H/O kyphoplasty (2022) following L1 burst fracture Status post amputation of toe of left foot History of cardiac cath following an unexplained cardiac arrest>per medical record>11/05/21, [facility], no stents Status post amputation of left great toe History of incision and drainage Hx of I&D of mendel-rectal abscess History of cataract surgery bilt History of cholecystectomy History of tooth extraction History of colonoscopy Colonoscopy 01/21/[address] Garg. History of adenoidectomy History of tonsillectomy Status post uvulopalatopharyngoplasty S/P foot surgery, left Family History Mother Family history of diabetes mellitus Father History of alcoholism History of liver cancer Sister Cancer Denies family history of Ovarian cancer Prostate cancer Crohn's disease Breast cancer Colorectal cancer Social History Smoking Status: Never smoker Tobacco Type: Declines Age Started Using Tobacco: 18; Age Quit Using Tobacco: 48; packs per day: 1.5; Second Hand Exposure: No; Do You Dip or Chew Tobacco: No; Tobacco Cessation Education Requested by Patient: No Hx Alcohol Use: Yes Alcohol type: wine Alcohol Intake Frequency: Monthly or Less Hx Substance Use: No Preferred Language: Spanish Communication Ability: Effective Visual Impairment: No Limitations Hearing Ability: Normal Mold Preparer Required: No Beliefs That Will Affect Care: None marital status: Current Living Situation: Spouse Current Living Situation Comment: Lives with and dog current occupational status: employed 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 Other Information That Helps Us Care for You: No Feels Safe at Home: Yes Safety Concerns: Feels Safe At This Time Childhood Exposure to Second-Hand Smoke: Yes Diet: regular Diet Comment: "tries to feed me right, but sometimes it doesn't always happen" caffeine: Yes during the past year weight has: remained stable Physical Activity Frequency: Does not Exercise Seatbelt Use: never Do you think of yourself as: straight/heterosexual Assistive Devices: None Results & Data Vital Signs (Past 12 Hours) Vital Signs Temp Pulse Pulse Resp BP BP Pulse Ox 03/18/24 14:50 36.5 C 88 18 150/79 H 97 03/18/24 13:47 36.8 C 79 18 136/69 97 03/18/24 12:50 36.6 C 81 18 150/77 H 96 03/18/24 12:20 36.7 C 90 18 129/68 95 03/18/24 12:17 36.2 C L 95 H 18 118/77 95 03/18/24 11:35 36.4 C L 89 21 126/84 96 03/18/24 11:25 91 H 20 114/90 95 03/18/24 11:15 106 H 20 117/90 95 03/18/24 11:05 36.5 C 110 H 20 145/96 H 100 03/18/24 09:43 36.6 C 76 18 123/76 93 03/18/24 07:42 36.8 C 88 16 118/68 96 03/18/24 07:35 O2 Del Method O2 Flow Rate 03/18/24 14:50 Room Air 03/18/24 13:47 Room Air 03/18/24 12:50 Room Air 03/18/24 12:20 Room Air 03/18/24 12:17 Room Air 03/18/24 11:35 Nasal Cannula 2 03/18/24 11:25 Room Air 03/18/24 11:15 Oxymask 5 03/18/24 11:05 Oxymask 5 03/18/24 09:43 Room Air 03/18/24 07:42 Room Air 03/18/24 07:35 Room Air Laboratory Results Labs reviewed. Diagnostic Findings Imaging reviewed. (2) Diabetic neuropathy Diabetes mellitus complication detail: diabetic polyneuropathy Diabetes mellitus type: type 2 Qualified Code(s): E11.42 - Type 2 diabetes mellitus with diabetic polyneuropathy (3) Diabetic foot ulcer Diabetic foot ulcer location: midfoot Diabetes mellitus type: type 2 Laterality: left Non-pressure ulcer stage: with necrosis of bone Qualified Code(s): E11.621 - Type 2 diabetes mellitus with foot ulcer; L97.424 - Non- pressure chronic ulcer of left heel and midfoot with necrosis of bone
[2024-03-18] MEDS: DAPTOmycin 675 MG in SYRINGE 0 ML IV SCH (16:25)
[2024-03-19 09:52] LABS: Hematocrit (blood only) 26.5 % (42.0-52.0); Hemoglobin 8.4 g/dl (14.0-18.0); Mean Corpuscular Hemoglobin 26.7 pg (25.0-34.0); Mean Corpuscular Hgb Conc 31.7 g/dL (32.0-36.0); Mean Corpuscular Volume 84.1 fL (80.0-100.0); Mean Platelet Volume 8.7 fL (9.4-12.4); Platelet Count 175 K/uL (130-400); RDW Coefficient of Variation 14.2 % (11.5-14.5); RDW Standard Deviation 43.2 fL (36.4-46.3); Red Blood Count 3.15 M/uL (4.70-6.10); White Blood Count 6.99 K/ul (4.8-10.8)
--- NOTE | 2024-03-19 10:36 | Operative Report ---
Post Operative Report Pre & Post Diagnosis Operation Date: 03/18/24 10:00 Pre-Op Diagnosis: Chronic ulcer of left foot with necrosis of bone Post-Op Diagnosis: Chronic ulcer of left foot with necrosis of bone I identified the patient and participated in the time-out.: Yes Procedure Operation Date: 03/18/24 10:00 Actual Procedures p Left Foot Amputation Transmetatarsal(Left) - Ariel Mccray DPM Surgeon Ariel Mccray DPM Circulation Worker None Estimated Blood Loss 0 Findings Consistent with Post-Op Diagnosis Specimens left forefoot sent for permanent specimen; consumer sales representative samples of affected bone sent for culture/sensitivity; proximal margin of left fifth metatarsal bone sent for pathology Anesthesia Type MAC Complications none Disposition Accompanied Patient To Recovery: Yes Disposition: Recovery Room Indications this patient is a recent patient of ours who has been in wound care for treatment of a draining ulcer to the left forefoot. This has failed wound care and now has remained infected. We discussed that he could continue to attempt wound care and IV and a biotics for the underlying bone infection, though he also presented to the hospital this time because of an open right ankle f racture. He has a delta frame on now and is potentially undergoing a right ankle arthrodesis as a definitive correction. With the presence of osteomyelitis in the left foot, tthis would be best treated more definitively. We discussed that with only 2 healthy toes remaining, he would benefit more from a transmetatarsal rotation rather than a isolated fifth ray resection. Preoperative instructions, postoperative instructions, relative risks, and outcomes were all discussed at length. Consent was obtained for this left transmetatarsal amputation Description of Procedure The patient was brought to the operating room placed on the operating table in the supine position. Following administration of IV sedation, local analgesia was obtained utilizing 20 cc of half percent Marcaine in a local bllockk fashion. The left lower extremity wass then scrubbbed, prepped, and draped in the usual aseptic manner. No tourniquet was utilized during the duration of his case given tthe patient's vascular status. Attention was directed to the left forefoot where a plantar nonhealing ulceration was noted. This ulcer was more proximal and underlying the proximal most metatarsal shaft of the fifth metatarsal. Given its location, to excise this wound along with the infected, affected metatarsal bone, The 2 converging semielliptical incisions made circumferential around the forefoot or more proximal than a typical transmetatarsal type rotation. Still these incisions were carried down to the level of the metatarsal shafts with care taken to m aintain the forefoot parabola as best as possible. The incision was carried down directly to the metatarsal with a guevara elevator used to reflect the metatarsal bone periosteal structures. Once this was performed, a sagittal saw was utilizeed to transect the metatarsals individually. This was performed for the third fourth and fifth metatarsals, with the first and second metatarsals being left intact, as they already were amputated at the level of the digits and well healed without infection at this time. The remainder of the left forefoot was passed off to the back table in 1 specimen with consumer sales representative samples obtained from the sample for bone culture and proximal margin with the remainder of the forefoot being sent for permanent specimen. The incision was then flushed with copious amounts of sterile saline and closure was performed utilizing 2-0 nylon in a simple interrupted and horizontal mattress pattern. The incision was dressed with Xeroform gauze, 4 x 4 gauze, an ABD, Kerlix, and an jordan wrap. The patient tolerated the procedure well and was transferred to the recovery room with vital signs stable and vascular status intact to the feet. Following postoperative monitoring, the patient was given prescriptions and instructions were discussed with him prior to surgery and transferred back to the floor for further monitoring. I attest to the content of the Intraoperative Record and any orders documented therein. Any exceptions are noted below.
[2024-03-19 11:28] LABS: Calcium 8.7 mg/dl (8.6-10.3); Potassium 4.5 mmol/L (3.5-5.1)
[2024-03-19 11:34] LABS: BUN Creatinine Ratio 19.5 (10-20); Creatinine Clr Calc Pharmacy 59.8 ml/min
[2024-03-19] MEDS: LANTUS PER UNIT CHARGE SC SCH (12:16)
--- NOTE | 2024-03-19 13:23 | Pharmacy Report ---
Pharmacy Glycemic Short Note 2 - Date of Service March 19, 2024 - Glycemic Short BSG Results (Last 24 hours): 03/18/24 03/18/24 03/19/24 16:41 20:05 07:50 Glucose POC Glucose 113 H 155 H 149 H 03/19/24 03/19/24 03/19/24 08:56 11:41 12:21 Glucose 148 H POC Glucose 276 H 216 H OUTPATIENT ANTIDIABETIC REGIMEN: * Lantus 70 units SQ qAM * Novolog SSI * Jardiance 25mg PO qAM * Metformin 500mg PO BID * Mounjaro 2.5mg SQ weekly * HbA1c: 6.0% (03/17/24) ASSESSMENT: 03/19 * BSGs have been on the lower end the last few days. BSG on 03/17 and into 03/18 were all below goal range so basal insulin was held. * He only required 1 unit of insulin total yesterday and it was bolus (BSGs ranged from 84-155 yesterday) * Patient was reported to have eaten all of his breakfast today and his BSG ritesh to 276mg/dL at lunch today. Lantus 20 units was given and will be continued daily. * Bolus insulin parameters to be continued as is for now. * POD #1 and pt continues on daptomycin for osteo. 03/17 * Mr Alvarado is a 68yo diabetic M admitted with R open ankle fx. * Pt is scheduled to go to the OR tomorrow for L foot amputation, and will be NPO p midnight. * Pt had an episode of symptomatic hypoglycemia (BSG 46) yesterday evening. Pharmacy glycemic consult was then placed. * Lantus dose was reduced significantly this morning. Carb ratio was removed from Novolog. Will hold metformin after today's dose in preparation for OR tomorrow. * Pharmacy will continue to follow during admission and adjust regimen as indicated. PLAN FOR INPATIENT GLYCEMIC CONTROL: * Hold outpatient oral diabetes medications * Basal insulin * Lantus 20 units SQ daily * Bolus insulin * NovoLog per scale ACHS or Q6hrs while NPO * Goal Range: Low 110 mg/dL - High 140 mg/dL * Correction Factor: 25 mg/dL/unit * Nutritional / Prandial insulin per carb ratio: none at this time
--- NOTE | 2024-03-19 14:12 | Infectious Disease Progress Nt ---
Date of Service March 19, 2024 Assessment & Plan (1) Acute osteomyelitis of left foot: (2) Diabetic neuropathy: (3) Diabetic foot ulcer: (4) Diabetic nephropathy associated with type 2 diabetes mellitus: (5) CKD stage 3 due to type 2 diabetes mellitus: Plan 68yo M with h/o diabetes, advanced neuropathy in bl LE, toe amputations on left 6yrs ago, right foot wounds, recent diabetic foot infection with possible left foot OM in 12/2023 (was tx with vanc/zosyn at [facility], sent to rehab on PO clindamycin with doxycycline added later, ultimately put on levofloxacin 250mg qd until ID f/u on 03/24/24), CHRISTINA, CKD III, BPH who presented on 03/13 after a fall and twisted his ankle resulting in an open fracture dislocation of right tibiotalar joint. Afebrile, vss. No leukocytosis, Cr 1.86>>1.97. XR right foot with acute fracture dislocation of the right ankle with open tibial fracture component. CXR with interstitial markings. S/p I+D and external fixator of right foot on 03/13. He was seen by podiatry after he was noted to have continued left foot ulceration and infection. Left foot MRI with bone resorption of 5th MT head with soft tissue mass at its plantar aspect, possibilities include erosive arthritis, gout, septic arthritis. Left foot CT with induration and probable disorganized abscess noted plantar lateral to the distal fifth metatarsal; no CT evidence of osteomyelitis. R foot CT with extensive, diffuse cellulitis with most prominent induration medial to the distal tibia, no organized or drainable collection, no OM. S/p OR 03/18 and underwent left foot transmetatarsal amputation (left 5th MT bone cx, proximal margin, and gross path was sent). He has been getting empiric IV abx, currently on daptomycin. ID consulted 03/18. Awaiting OR cultures and path. Note cultures are of affected bone. Path report of proximal margin will be most helpful. # Left foot infection w/ c/f OM s/p amputation 03/18 # Right ankle fracture s/p surgery # h/o Diabetes # H/o prior left foot OM treatment in 12/2023 - f/u OR cultures and path - continue on daptomycin - final regimen/duration pending above - if no residual OM then shorter course of abx ID will continue to follow. Please note that there will be no ID notes over the weekend. If questions or concerns arise, please contact the Infectious Disease Call Center and ask to speak with the covering ID physician. Becka Eaton MD [facility], Division of Infectious Diseases Admission and Anticipated Discharge Date Admission Date: March 13, 2024 Subjective Subsequent visit was provided via telemedicine using two-way real-time interactive telecommunication between the patient and the telemedicine provider. For the duration of the visit, the provider was performing the assessment from a different facility than the patient. This includesuse of bluetooth stethoscope forauscultationperformed by the telepresenter that the telemedicine provider can hear if described in the physical exam. Marketing Program Manager contact information: Please call [facility] Call Center [phone]. (Phone Number For Physician Use Only) After establishing a telemedicine visit, patient was: Patient was verified with two unique identifiers, Patient/authorized rep acknowledged consent and understanding and Gave permission to continue telehealth session Time Spent with Patient: Subsequent => 35 min Patient seen and examined. No complaints, denies pain, vomiting, diarrhea. Physical Exam Physical Exam: General: Awake, alert, no acute distress HEENT: NC/AT, EOMI, mmm Neck: supple Lungs: respirations non-labored Abdomen: soft, NT/ND Ext: postop dressing on left foot, right leg with external fixator and dressing Results & Data Vital Signs (Past 12 Hours) Vital Signs Temp Pulse Resp BP BP Pulse Ox O2 Del Method 03/19/24 07:56 36.7 C 62 18 135/64 94 Nasal Cannula 03/19/24 07:30 Nasal Cannula 03/19/24 03:53 36.7 C 120 H 20 125/81 96 Room Air 03/19/24 03:50 118 H 20 139/72 95 Room Air O2 Flow Rate 03/19/24 07:56 2 03/19/24 07:30 2 03/19/24 03:53 03/19/24 03:50 Laboratory Results Labs reviewed. (2) Diabetic neuropathy Diabetes mellitus complication detail: diabetic polyneuropathy Diabetes mellitus type: type 2 Qualified Code(s): E11.42 - Type 2 diabetes mellitus with diabetic polyneuropathy (3) Diabetic foot ulcer Diabetes mellitus type: type 2 Diabetic foot ulcer location: midfoot Laterality: left Non-pressure ulcer stage: with necrosis of bone Qualified Code(s): E11.621 - Type 2 diabetes mellitus with foot ulcer; L97.424 - Non- pressure chronic ulcer of left heel and midfoot with necrosis of bone
--- NOTE | 2024-03-19 14:46 | Hospitalist Progress Note ---
Date of Service March 19, 2024 Assessment & Plan (1) Chronic ulcer of left foot with necrosis of bone: Plan: Patient w/ hx of osteomyelitis on chronic abx therapy of Levaquin outpatient. CT right foot 03/14: extensive, diffuse cellulitis w/ most prominent induration medical to the distal tibia. No organized or drainable collection. scattered gas likely is related to open nature of the fracture and operative manipulation. CT left foot 03/14: induration and probable disorganized abscess noted plantar lateral to the distal 5th met[address] ct evidence osteomyelitis MRI left foot 03/14: amputated left first and 2nd toes. bone resorption of 5th metatarsal head w/ soft tissue mass at plantar aspect. ddx: gout vs septic arthritis. arthritic changes at intertarsal and tarsometatarsal articulations. atrophic fatty infiltration of foot musculature. subcutaneous edema of foot. left transmetatarsal amputation completed on 03/18. wound culture from surgery pending. culture of left foot from 03/15 + for staph pseudintermediu sensitivities w/ resistance to multiple abx. switch antibiotics from Rocephin and Levaquin to IV Daptomycin hold Statin while on daptomycin Consult infectious disease given complexity of patient's wounds, recommendations below continue daptomycin final regimen/duration pending, if no residual OM then shorter course of abx. CBC reviewed 03/19: negative for leukocytosis, hgb 8.4 BMP reviewed 03/18: creatinine improved to 1.85, BUN 36 encourage PO hydration. (2) Open fracture dislocation of ankle: Plan: Sustained the open fracture dislocation taken to the operating room on 03/[address] Chepe Daly for ORIF and washout Orthopedics have deemed patient medically stable from their standpoint for discharge, patient transferred to hospitalist service for further care on 03/16 Dr. Shin consulted 03/17, reviewed recommendations on 03/18 options for definitive correction include open reduction internal fixation of ankle fx w/ extensive syndesmotic fixation vs acute tibial talocalcaneal arthrodesis. patient extremely high risk for infection he is to follow up in orthopedic office after discharge to discuss further plans. PT/OT following, recommending rehab. Discussed w/ CM 03/18 that following his operation he is medically stable for discharge now but will likely require IV abx on discharge. (3) Diabetic nephropathy associated with type 2 diabetes mellitus: Plan: this patient is on many medications including insulin, Mounjaro, and metformin Patient w/ recurrent hypoglycemic episodes while inpatient. Pharmacy was consulted to aid in glycemic management Lantus 20 units Loosened parameters on SSI Range: 110 - 140 mg/dL CF 25, no carb ratio. (4) CAD (coronary artery disease): Plan: history of cardiac arrest, non occlusive CAD, previously preserved LV function Typically on aspirin and atorvastatin Patient takes Lasix 20 mg a day, unclear EF % (5) CKD (chronic kidney disease): Plan: ckd 3 stable creatinine improved to 1.85, BUN stable at 36 encourage PO hydration AM CBC, BMP Plan Chronic conditions: BPH continue tamsulosin tim will continue NIPPV Admission and Anticipated Discharge Date Admission Date: March 13, 2024 Subjective Patient seen and examined this morning. Patient reports to be feeling well today. He denied any complaints. Physical Exam Constitutional: WD/WN, vitals as above Eyes: PERRL, conjunctivae normal, anicteric sclerae Respiratory: breathing unlabored Cardiovascular: well perfused Psychiatric: A+Ox3, euthymic affect Results & Data Results & Data Vital Signs (Past 12 Hours) Vital Signs Temp Pulse Resp BP BP Pulse Ox O2 Del Method 03/19/24 07:56 36.7 C 62 18 135/64 94 Nasal Cannula 03/19/24 07:30 Nasal Cannula 03/19/24 03:53 36.7 C 120 H 20 125/81 96 Room Air 03/19/24 03:50 118 H 20 139/72 95 Room Air O2 Flow Rate 03/19/24 07:56 2 03/19/24 07:30 2 03/19/24 03:53 03/19/24 03:50 PG Care Time/CCT Total # of Minutes Spent Total Time Spent with Patient: Total time spent is greater than 50% in coordination of care (as documented) at patient's floor/unit and/or counseling patient: Coding Level of Care Code 07930 SUB INP/OBS CARE 2/35MIN Diagnoses Chronic ulcer of left foot with necrosis of bone L97.524 Type III open fracture dislocation of right ankle, initial encounter S82.891C Encounter type: initial encounter Laterality: right Open fracture type: open type III Diabetic nephropathy associated with type 2 diabetes mellitus E11.21 CAD (coronary artery disease) I25.10 CKD (chronic kidney disease) N18.9 (2) Open fracture dislocation of ankle Encounter type: initial encounter Laterality: right Open fracture type: open type III Qualified Code(s): S82.891C - Other fracture of right lower leg, initial encounter for open fracture type IIIA, IIIB, or IIIC
[2024-03-19] MEDS: [UNRECOGNIZED DRUG - REMARK] SC SCH (18:08)
--- NOTE | 2024-03-19 21:16 | Podiatry Progress Note ---
Date of Service March 19, 2024 Assessment & Plan (1) Open fracture dislocation of ankle: (2) Diabetic neuropathy: (3) Diabetic foot ulcer: (4) Status post partial amputation of foot: (5) Acute osteomyelitis of left foot: (6) Chronic ulcer of left foot with necrosis of bone: Plan Patient was examined and evaluated. - Dressing left intact POD #1. Will change early next week; can be changed prn in interim, if necessary. - Should have surgical shoe/boot for any ambulation, to avoid increasing fall risk. - Sutures are intact to the foot. Pathology/C&S pending. Surgically, clean margins believe to be obtained. - Can likely continue oral abx empircally for 2 weeks. - No further left foot intervention planned; can d/c to rehab at any point from my perspective. Will continue to follow. Admission and Anticipated Discharge Date Admission Date: March 13, 2024 Subjective Pt seen at bedside at lunch. Good appetite. No pain to the left foot; has kept dressing clean/intact. Has been NWB without complication. Unsure of disposition at this point; believes he will go to rehab, though unsure of where or when. Review of Systems Constitutional: + fever; no chills and no fatigue Eyes: no problem reported Ear, Nose, Mouth, Throat: no problem reported Respiratory: no problem reported Cardiovascular: + edema; no problem reported Gastrointestinal: + nausea and + vomiting; no problem repo rted Genitourinary: no problem reported Musculoskeletal: no problem reported Integumentary: + skin ulcer, + wounds and + erythema Neurologic: + loss of sensation, + numbness and + pa resthesia; no generalized weakness Psychiatric: no problem reported Physical Exam Physical Exam: Right lower extremity external fixator in place with post-surgical dressing intact, left intact. Surgical dressing clean, dry to left foot. No strikethrough/bleeding noted. No ascending cellulitis. Constitutional: WD/WN, vitals as above + ill appearing, + morbidly obese and comfortable Eyes: PERRL, conjunctivae normal, anicteric sclerae ENMT: external ear and nose normal, oropharynx normal Neck: trachea midline, no thyromegaly normal visual inspection Respiratory: normal respiratory effort; no respiratory distress Cardiovascular: Rate/Rhythm: regular rate and regular rhythm Vessels: + posterior tibial pulses abnormal and + dorsalis pedis pulses abnormal Extremities: normal capillary refill Chest (Breasts): Chest: normal inspection of chest Gastrointestinal (Abdomen): Inspection/Auscultation: abdomen normal to inspection Percussion/Palpation: + abdomen tender and abdomen soft Musculoskeletal: no cyanosis or clubbing, extremities motor strength 5/5 Head/Neck/Chest: normocephalic and head atraumatic Extremities: extremities normal to inspection, + lower extremity abnormal to inspection Bilateral (R Ex- fix intact. Left toe amputations to 1st, 2nd. ) and + limited ROM of lower extremity Skin: no rashes, warm and dry + ulcer, + wound, + erythema, + fluctulance, + fistulous tract and + nails dystrophic Neurologic: awake; + abnormal touch/pain/proprioception, + abnormal sensation to monofilament and no focal motor deficits Psychiatric: A+Ox3, euthymic affect Results & Data Results & Data Vital Signs (Past 12 Hours) Vital Signs Temp Pulse Resp BP Pulse Ox O2 Del Method 03/19/24 20:18 36.7 C 92 H 18 122/72 93 Room Air 03/19/24 16:06 36.6 C 118 H 16 146/88 H 96 Room Air (1) Open fracture dislocation of ankle Encounter type: initial encounter Laterality: right Open fracture type: open type III Qualified Code(s): S82.891C - Other fracture of right lower leg, initial encounter for open fracture type IIIA, IIIB, or IIIC (2) Diabetic neuropathy Diabetes mellitus complication detail: diabetic polyneuropathy Diabetes mellitus type: type 2 Qualified Code(s): E11.42 - Type 2 diabetes mellitus with diabetic polyneuropathy (3) Diabetic foot ulcer Diabetic foot ulcer location: midfoot Diabetes mellitus type: type 2 Laterality: left Non-pressure ulcer stage: with necrosis of bone Qualified Code(s): E11.621 - Type 2 diabetes mellitus with foot ulcer; L97.424 - Non- pressure chronic ulcer of left heel and midfoot with necrosis of bone (4) Status post partial amputation of foot Laterality: left Qualified Code(s): Z89.432 - Acquired absence of left foot
--- NOTE | 2024-03-20 07:11 | Orthopedic Progress Note ---
Date of Service March 20, 2024 Assessment & Plan (1) Open fracture dislocation of ankle: With regards to his right ankle, he will be under the care of Dr. Dieter Shin for definitive management of the right ankle. He did see him a few days ago in the hospital. He recommended leaving the dressing around the right leg intact until follow-up with him next week. He is currently on daptomycin for antimicrobial prophylaxis. He is on Eliquis 2.5 mg twice a day for DVT prophylaxis. He should follow-up with Dr. Dieter Shin next week to get set up for definitive fixation of his right ankle. It sounds like he may do an ankle fusion. With regards to his left foot, he just underwent a transmetatarsal amputation 2 days ago by the rotating equipment specialist. Danielle Nunez was seen and examined at bedside this morning. Overall is doing fairly well. He is nonweightbearing on both legs. He was able to get some sleep last night. His pain is controlled and he has no complaints.. Review of Systems All systems reviewed & are unremarkable except as noted in HPI & below. Physical Exam On physical examination of his right leg, the dressing is clean and dry and the external fixator is in place. Examination of his left foot shows the dressing to be clean and dry.. Results & Data Results & Data Laboratory Results . Diagnostic Findings . PG Care Time/CCT Total # of Minutes Spent Total Time Spent with Patient: Total time spent is greater than 50% in coordination of care (as documented) at patient's floor/unit and/or counseling patient: Coding Level of Care Code 00553 Post Operative Follow-Up Diagnoses Type III open fracture dislocation of right ankle, initial encounter S82.891C Encounter type: initial encounter Laterality: right Open fracture type: open type III (1) Open fracture dislocation of ankle Encounter type: initial encounter Laterality: right Open fracture type: open type III Qualified Code(s): S82.891C - Other fracture of right lower leg, initial encounter for open fracture type IIIA, IIIB, or IIIC
--- NOTE | 2024-03-20 09:53 | Hospitalist Progress Note ---
Date of Service March 20, 2024 Assessment & Plan (1) Chronic ulcer of left foot with necrosis of bone: Plan: Patient w/ hx of osteomyelitis on chronic abx therapy of Levaquin outpatient. CT right foot 03/14: extensive, diffuse cellulitis w/ most prominent induration medical to the distal tibia. No organized or drainable collection. scattered gas likely is related to open nature of the fracture and operative manipulation. CT left foot 03/14: induration and probable disorganized abscess noted plantar lateral to the distal 5th met[address]. [address] ct evidence osteomyelitis MRI left foot 03/14: amputated left first and 2nd toes. bone resorption of 5th metatarsal head w/ soft tissue mass at plantar aspect. ddx: gout vs septic arthritis. arthritic changes at intertarsal and tarsometatarsal articulations. atrophic fatty infiltration of foot musculature. subcutaneous edema of foot. left transmetatarsal amputation completed on 03/18. wound culture from surgery pending. - 03/20 pin point growth, reincubating culture of left foot from 03/15 + for staph pseudintermediu sensitivities w/ resistance to multiple abx. switch antibiotics from Rocephin and Levaquin to IV Daptomycin hold Statin while on daptomycin Consult infectious disease given complexity of patient's wounds, recommendations below continue daptomycin final regimen/duration pending, if no residual OM then shorter course of abx. CBC 03/19: negative for leukocytosis, hgb 8.4 BMP 03/19: creatinine improved to 1.85, BUN 36 encourage PO hydration. AM CBC, BMP (2) Open fracture dislocation of ankle: Plan: Sustained the open fracture dislocation taken to the operating room on 03/[address] Chepe Daly for ORIF and washout Orthopedics have deemed patient medically stable from their standpoint for discharge, patient transferred to hospitalist service for further care on 03/16 Dr. Shin consulted 03/17, reviewed recommendations on 03/18 options for definitive correction include open reduction internal fixation of ankle fx w/ extensive syndesmotic fixation vs acute tibial talocalcaneal arthrodesis. patient extremely high risk for infection he is to follow up in orthopedic office after discharge to discuss further plans. PT/OT following, recommending rehab. Discussed w/ CM 03/18 that following his operation he is medically stable for discharge now but will likely require IV abx on discharge. (3) Diabetic nephropathy associated with type 2 diabetes mellitus: Plan: this patient is on many medications including insulin, Mounjaro, and metformin Patient w/ recurrent hypoglycemic episodes while inpatient. Pharmacy was consulted to aid in glycemic management Lantus 20 units Loosened parameters on SSI Range: 110 - 140 mg/dL CF 25, no carb ratio. (4) CAD (coronary artery disease): Plan: history of cardiac arrest, non occlusive CAD, previously preserved LV function Typically on aspirin and atorvastatin Patient takes Lasix 20 mg a day, unclear EF % (5) CKD (chronic kidney disease): Plan: ckd 3 stable creatinine improved to 1.85, BUN stable at 36 encourage PO hydration AM CBC, BMP Plan Chronic conditions: BPH continue tamsulosin tim will continue NIPPV Admission and Anticipated Discharge Date Admission Date: March 13, 2024 Subjective Patient seen and examined this morning. Patient denied any complaints today. He denied CP or SOB. Denies pain in his feet due to neuropathy. He had just finished breakfast at time of his encounter. Physical Exam Constitutional: WD/WN, vitals as above Eyes: PERRL, conjunctivae normal, anicteric sclerae Respiratory: lungs clear Cardiovascular: regular rate Psychiatric: A+Ox3, euthymic affect Results & Data Results & Data Vital Signs (Past 12 Hours) Vital Signs Temp Pulse Resp BP Pulse Ox O2 Del Method 03/20/24 08:45 Room Air 03/20/24 07:50 36.4 C L 94 H 16 143/80 H 94 Room Air PG Care Time/CCT Total # of Minutes Spent Total Time Spent with Patient: Total time spent is greater than 50% in coordination of care (as documented) at patient's floor/unit and/or counseling patient: Coding Level of Care Code 28361 SUB INP/OBS CARE 2/35MIN Diagnoses Chronic ulcer of left foot with necrosis of bone L97.524 Type III open fracture dislocation of right ankle, initial encounter S82.891C Encounter type: initial encounter Laterality: right Open fracture type: open type III Diabetic nephropathy associated with type 2 diabetes mellitus E11.21 CAD (coronary artery disease) I25.10 CKD (chronic kidney disease) N18.9 (2) Open fracture dislocation of ankle Encounter type: initial encounter Laterality: right Open fracture type: open type III Qualified Code(s): S82.891C - Other fracture of right lower leg, initial encounter for open fracture type IIIA, IIIB, or IIIC
[2024-03-21 08:05] LABS: Hematocrit (blood only) 25.9 % (42.0-52.0); Hemoglobin 8.2 g/dl (14.0-18.0); Mean Corpuscular Hemoglobin 26.7 pg (25.0-34.0); Mean Corpuscular Hgb Conc 31.7 g/dL (32.0-36.0); Mean Corpuscular Volume 84.4 fL (80.0-100.0); Mean Platelet Volume 8.6 fL (9.4-12.4); Platelet Count 195 K/uL (130-400); RDW Coefficient of Variation 14.3 % (11.5-14.5); RDW Standard Deviation 43.8 fL (36.4-46.3); Red Blood Count 3.07 M/uL (4.70-6.10); White Blood Count 6.44 K/ul (4.8-10.8)
[2024-03-21 08:18] LABS: BUN Creatinine Ratio 20.5 (10-20); Calcium 8.8 mg/dl (8.6-10.3); Creatinine Clr Calc Pharmacy 62.8 ml/min; Potassium 4.5 mmol/L (3.5-5.1)
--- NOTE | 2024-03-21 09:10 | Hospitalist Progress Note ---
Date of Service March 21, 2024 Assessment & Plan (1) Chronic ulcer of left foot with necrosis of bone: Plan: Patient w/ hx of osteomyelitis on chronic abx therapy of Levaquin outpatient. CT right foot 03/14: extensive, diffuse cellulitis w/ most prominent induration medical to the distal tibia. No organized or drainable collection. scattered gas likely is related to open nature of the fracture and operative manipulation. CT left foot 03/14: induration and probable disorganized abscess noted plantar lateral to the distal 5th met[address] evidence osteomyelitis MRI left foot 03/14: amputated left first and 2nd toes. bone resorption of 5th metatarsal head w/ soft tissue mass at plantar aspect. ddx: gout vs septic arthritis. arthritic changes at intertarsal and tarsometatarsal articulations. atrophic fatty infiltration of foot musculature. subcutaneous edema of foot. left transmetatarsal amputation completed on 03/18. wound culture from surgery pending. culture of left foot from 03/15 + for staph pseudintermediu sensitivities w/ resistance to multiple abx. switch antibiotics from Rocephin and Levaquin to IV Daptomycin hold Statin while on daptomycin Consult infectious disease given complexity of patient's wounds, recommendations below continue daptomycin final regimen/duration pending, if no residual OM then shorter course of abx. CBC 03/20: negative for leukocytosis, hgb 8.2 BMP 03/19: creatinine improved to 1.76, BUN 36 encourage PO hydration. Plan to check CBC/BMP q every other day while on IV abx. (2) Open fracture dislocation of ankle: Plan: Sustained the open fracture dislocation taken to the operating room on 03/[address] Chepe Daly for ORIF and washout Orthopedics have deemed patient medically stable from their standpoint for discharge, patient transferred to hospitalist service for further care on 03/16 Dr. Shin consulted 03/17, reviewed recommendations on 03/18 options for definitive correction include open reduction internal fixation of ankle fx w/ extensive syndesmotic fixation vs acute tibial talocalcaneal arthrodesis. patient extremely high risk for infection he is to follow up in orthopedic office after discharge to discuss further plans. PT/OT following, recommending rehab. Discussed w/ CM 03/18 that following his operation he is medically stable for discharge now but will likely require IV abx on discharge. (3) Diabetic nephropathy associated with type 2 diabetes mellitus: Plan: this patient is on many medications including insulin, Mounjaro, and metformin Patient w/ recurrent hypoglycemic episodes while inpatient. Pharmacy was consulted to aid in glycemic management Lantus 20 units Loosened parameters on SSI Range: 110 - 140 mg/dL CF 25, no carb ratio. (4) CAD (coronary artery disease): Plan: history of cardiac arrest, non occlusive CAD, previously preserved LV function Typically on aspirin and atorvastatin Patient takes Lasix 20 mg a day, unclear EF % (5) CKD (chronic kidney disease): Plan: ckd 3 stable creatinine improved to 1.76, BUN stable at 36 encourage PO hydration AM CBC, BMP Plan Chronic conditions: BPH continue tamsulosin tim will continue NIPPV Diet: heart healthy, carb consistent DVT prophylaxis: eliquis BID Disposition: awaiting placement Code status: full Admission and Anticipated Discharge Date Admission Date: March 13, 2024 Subjective Patient seen and examined this morning. Patient reported to be feeling well and denied any acute complaints. Physical Exam Constitutional: WD/WN, vitals as above Eyes: PERRL, conjunctivae normal, anicteric sclerae Respiratory: breathing unlabored Cardiovascular: well perfused Musculoskeletal: external fixator on right ankle. Psychiatric: A+Ox3, euthymic affect Results & Data Results & Data Vital Signs (Past 12 Hours) Vital Signs Temp Pulse Resp BP Pulse Ox O2 Del Method 03/21/24 08:39 90 121/74 03/21/24 07:24 36.3 C L 86 12 99/66 L 95 Room Air PG Care Time/CCT Total # of Minutes Spent Total Time Spent with Patient: Total time spent is greater than 50% in coordination of care (as documented) at patient's floor/unit and/or counseling patient: Coding Level of Care Code 97646 SUB INP/OBS CARE 2/35MIN Diagnoses Chronic ulcer of left foot with necrosis of bone L97.524 Type III open fracture dislocation of right ankle, initial encounter S82.891C Encounter type: initial encounter Laterality: right Open fracture type: open type III Diabetic nephropathy associated with type 2 diabetes mellitus E11.21 CAD (coronary artery disease) I25.10 CKD (chronic kidney disease) N18.9 (2) Open fracture dislocation of ankle Encounter type: initial encounter Laterality: right Open fracture type: open type III Qualified Code(s): S82.891C - Other fracture of right lower leg, initial encounter for open fracture type IIIA, IIIB, or IIIC
--- NOTE | 2024-03-22 09:41 | Infectious Disease Progress Nt ---
Date of Service March 22, 2024 Assessment & Plan (1) Acute osteomyelitis of left foot: (2) Diabetic neuropathy: (3) Diabetic foot ulcer: (4) Diabetic nephropathy associated with type 2 diabetes mellitus: (5) CKD stage 3 due to type 2 diabetes mellitus: Plan 68yo M with h/o diabetes, advanced neuropathy in bl LE, toe amputations on left 6yrs ago, right foot wounds, recent diabetic foot infection with possible left foot OM in 12/2023 (was tx with vanc/zosyn at [facility], sent to rehab on PO clindamycin with doxycycline added later, ultimately put on levofloxacin 250mg qd until ID f/u on 03/24/24), CHRISTINA, CKD III, BPH who presented on 03/13 after a fall and twisted his ankle resulting in an open fracture dislocation of right tibiotalar joint. Afebrile, vss. No leukocytosis, Cr 1.86>>1.97. XR right foot with acute fracture dislocation of the right ankle with open tibial fracture component. CXR with interstitial markings. S/p I+D and external fixator of right foot on 03/13. He was seen by podiatry after he was noted to have continued left foot ulceration and infection. Left foot MRI with bone resorption of 5th MT head with soft tissue mass at its plantar aspect, possibilities include erosive arthritis, gout, septic arthritis. Left foot CT with induration and probable disorganized abscess noted plantar lateral to the distal fifth metatarsal; no CT evidence of osteomyelitis. R foot CT with extensive, diffuse cellulitis with most prominent induration medial to the distal tibia, no organized or drainable collection, no OM. S/p OR 03/18 and underwent left foot transmetatarsal amputation (left 5th MT bone cx, proximal margin, and gross path was sent). He has been getting empiric IV abx, currently on daptomycin. ID consulted 03/18. OR cx with skin owen (cx were of affected bone). OR path in process. Awaiting OR path of proximal margin will be most helpful. If negative for OM, then plan to complete short course of abx. # Left foot infection w/ c/f OM s/p TMA 03/18 # Right ankle fracture s/p surgery # h/o Diabetes # H/o prior left foot OM treatment in 12/2023 - f/u OR path - continue on daptomycin - final regimen pending above - if no residual OM then shorter course of abx ID will continue to follow. If questions or concerns, contact via [employer] or Infectious Disease Call Center . Becka Eaton MD [facility], Division of Infectious Diseases Admission and Anticipated Discharge Date Admission Date: March 13, 2024 Subjective Subsequent visit was provided via telemedicine using two-way real-time interactive telecommunication between the patient and the telemedicine provider. For the duration of the visit, the provider was performing the assessment from a different facility than the patient. This includesuse of bluetooth stethoscope forauscultationperformed by the telepresenter that the telemedicine provider can hear if described in the physical exam. Waredresser contact information: Please call ID Connect Call Center . (Phone Number For Physician Use Only) After establishing a telemedicine visit, patient was: Patient was verified with two unique identifiers, Patient/authorized rep acknowledged consent and understanding and Gave permission to continue telehealth session Time Spent with Patient: Subsequent => 35 min Patient reports doing well. No diarrhea or pain. Physical Exam Physical Exam: General: Awake, alert, no acute distress HEENT: NC/AT, EOMI, mmm Neck: supple Lungs: respirations non-labored Abdomen: soft, NT/ND Ext: dressing on left foot, right leg with external fixator and dressing, no edema Results & Data Vital Signs (Past 12 Hours) Vital Signs Temp Pulse Resp BP Pulse Ox O2 Del Method 03/22/24 05:48 36.5 C 81 18 129/71 95 Room Air Laboratory Results Labs reviewed. Diagnostic Findings Imaging reviewed. (2) Diabetic neuropathy Diabetes mellitus complication detail: diabetic polyneuropathy Diabetes mellitus type: type 2 Qualified Code(s): E11.42 - Type 2 diabetes mellitus with diabetic polyneuropathy (3) Diabetic foot ulcer Diabetes mellitus type: type 2 Diabetic foot ulcer location: midfoot Laterality: left Non-pressure ulcer stage: with necrosis of bone Qualified Code(s): E11.621 - Type 2 diabetes mellitus with foot ulcer; L97.424 - Non- pressure chronic ulcer of left heel and midfoot with necrosis of bone
--- NOTE | 2024-03-22 10:05 | Pharmacy Report ---
Pharmacy Glycemic Short Note 2 - Date of Service March 22, 2024 - Glycemic Short BSG Results (Last 24 hours): 03/21/24 03/21/24 03/21/24 11:59 17:11 20:52 POC Glucose 146 H 143 H 115 H 03/22/24 07:51 POC Glucose 133 H OUTPATIENT ANTIDIABETIC REGIMEN: * Lantus 70 units SQ qAM * Novolog SSI * Jardiance 25mg PO qAM * Metformin 500mg PO BID * Mounjaro 2.5mg SQ weekly * HbA1c: 6.0% (03/17/24) ASSESSMENT: 03/22 * A total of 29 units of insulin were given yesterday (20 units were basal). * Fasting BSG was within goal range this morning so Lantus will be continued as ordered. * Bolus insulin parameters were tightened on 03/20 and BSGs have mostly been within the goal range since then (ranged from 115-146mg/dL). Will continue with this bolus insulin parameters. * Of note: patient received 2.5mg tirzepatide on the evening of 03/19. (his own medication) * POD#4 TMA and patient continues on daptomycin 03/19 * BSGs have been on the lower end the last few days. BSG on 03/17 and into 03/18 were all below goal range so basal insulin was held. * He only required 1 unit of insulin total yesterday and it was bolus (BSGs ranged from 84-155 yesterday) * Patient was reported to have eaten all of his breakfast today and his BSG ritesh to 276mg/dL at lunch today. Lantus 20 units was given and will be continued daily. * Bolus insulin parameters to be continued as is for now. * POD #1 and pt continues on daptomycin for osteo. 03/17 * Mr Alvarado is a 68yo diabetic M admitted with R open ankle fx. * Pt is scheduled to go to the OR tomorrow for L foot amputation, and will be NPO p midnight. * Pt had an episode of symptomatic hypoglycemia (BSG 46) yesterday evening. Pharmacy glycemic consult was then placed. * Lantus dose was reduced significantly this morning. Carb ratio was removed from Novolog. Will hold metformin after today's dose in preparation for OR tomorrow. * Pharmacy will continue to follow during admission and adjust regimen as indicated. PLAN FOR INPATIENT GLYCEMIC CONTROL: * Hold outpatient oral diabetes medications * Basal insulin * Lantus 20 units SQ daily * Bolus insulin * NovoLog per scale ACHS or Q6hrs while NPO * Goal Range: Low 110 mg/dL - High 140 mg/dL * Correction Factor: 25 mg/dL/unit * Nutritional / Prandial insulin per carb ratio: 1 unit/9 grams CHO
--- NOTE | 2024-03-22 12:14 | Hospitalist Progress Note ---
Date of Service March 22, 2024 Assessment & Plan (1) Chronic ulcer of left foot with necrosis of bone: Plan: Patient w/ hx of osteomyelitis on chronic abx therapy of [facility] outpatient. CT right foot: extensive, diffuse cellulitis w/ most prominent induration medical to the distal tibia. No organized or drainable collection. scattered gas likely is related to open nature of the fracture and operative manipulation. CT left foot: induration and probable disorganized abscess noted plantar lateral to the distal 5th met[address]. no ct evidence osteomyelitis MRI left foot: amputated left first and 2nd toes. bone resorption of 5th metatarsal head w/ soft tissue mass at plantar aspect. arthritic changes at intertarsal and tarsometatarsal articulations. atrophic fatty infiltration of foot musculature. subcutaneous edema of foot. Podiatry consulted, Dr. Mccray - s/p left transmetatarsal amputation on 03/18. - surgical shoe for ambulation OR culture: Bone path: Left foot wound culture: staph pseudintermediu with multiple resitances. - started Daptomycin 03/18, statin held Consult infectious disease given complexity of patient's wounds, continue daptomycin final regimen/duration pending, if no residual OM then shorter course of abx. Pt with poor mobility currently and plan to return to OR, will plan to keep barrett inplace for now. Plan to check CBC/BMP q every other day while on IV abx. PT/OT following, recommending rehab. - CM following, looking for bed (2) Open fracture dislocation of ankle: Plan: Sustained the open fracture dislocation taken S/p Application external fixator right foot at washout with Dr. Chepe Daly 03/13 - NWB right foot - Eliquis for DVT proh - f/u with Dr. Shin for definitive treatment Dr. Shin consulted options for definitive correction include open reduction internal fixation of ankle fx w/ extensive syndesmotic fixation vs acute tibial talocalcaneal ar throdesis. patient extremely high risk for infection - plan for surgical intervention 03/25 Orthopedics have deemed patient medically stable from their standpoint for disch arge, patient transferred to hospitalist service for further care on 03/16 (3) Diabetic nephropathy associated with type 2 diabetes mellitus: Plan: this patient is on many medications including insulin, Mounjaro, and metformin Patient w/ recurrent hypoglycemic episodes while inpatient. Pharmacy was consulted to aid in glycemic management (4) CAD (coronary artery disease): Plan: history of cardiac arrest, non occlusive CAD, previously preserved LV function Typically on aspirin and atorvastatin Patient takes Lasix 20 mg a day, unclear EF % Plan Chronic stable medical conditions: * BPH continue tamsulosin * tim will continue NIPPV * CKD - Cr stable, encourage PO hydration DVT prophylaxis: eliquis BID Disposition: continued inpatient stay awaiting OR and final ID recommendations Discussed case with Dr. Kip PRESCOTT for 03/22 Admission and Anticipated Discharge Date Admission Date: March 13, 2024 Subjective Patient seen resting in bed, thinks the plan is for surgical intervention on pain is well controlled having to strain for BMs appetite is decreased but still eating Physical Exam Physical Exam: General: NAD, VS as above, lying in bed Resp: normal respiratory effort, lungs clear to auscultation CV: RRR, no murmur, Abd: normal bowel sounds, non tender, midly distended Extremities:left foot s/p toe amputation, dressing not removed, c/d/i. Right foot external fixation device in place. Neuro: A&O x3, Results & Data Results & Data Vital Signs (Past 12 Hours) Vital Signs Temp Pulse Resp BP Pulse Ox O2 Del Method 03/22/24 10:23 Room Air 03/22/24 05:48 97.7 F 81 18 129/71 95 Room Air PG Care Time/CCT Total # of Minutes Spent Total Time Spent with Patient: Total time spent is greater than 50% in coordination of care (as documented) at patient's floor/unit and/or counseling patient: Coding Level of Care Code 79904 SUB INP/OBS CARE 2/35MIN Diagnoses Chronic ulcer of left foot with necrosis of bone L97.524 Type III open fracture dislocation of right ankle, initial encounter S82.891C Encounter type: initial encounter Laterality: right Open fracture type: open type III Diabetic nephropathy associated with type 2 diabetes mellitus E11.21 CAD (coronary artery disease) I25.10 (2) Open fracture dislocation of ankle Encounter type: initial encounter Laterality: right Open fracture type: open type III Qualified Code(s): S82.891C - Other fracture of right lower leg, initial encounter for open fracture type IIIA, IIIB, or IIIC
[2024-03-22] MEDS: DOCUSATE SODIUM/SENNA 50/8.6MG TAB PO SCH (16:04)
--- NOTE | 2024-03-22 16:32 | Orthopedic Progress Note ---
Date of Service March 22, 2024 Assessment & Plan (1) Open fracture dislocation of right ankle: (2) Neuropathy: (3) Diabetic neuropathy: (4) Acute osteomyelitis of left foot: (5) Chronic ulcer of left foot with necrosis of bone: (6) Cellulitis of foot, right: (7) Chronic constipation: (8) Chronic venous insufficiency: (9) Diabetic nephropathy associated with type 2 diabetes mellitus: (10) CKD stage 3 due to type 2 diabetes mellitus: (11) PAD (peripheral artery disease): (12) CAD (coronary artery disease): Jenny Nunez is a 68-year-old gentleman who sustained a open fracture/dislocation of his right ankle. Initially, he received appropriate antibiotics, tetanus update, and was taken to the operating room with Dr. Daly for irrigation and debridement with closed reduction and application of external fixator. At this time, the patient is resting comfortably in bed in his external fixator. He remains in the hospital due to difficulty with finding placement after left TMA by podiatry. With regards to the patient's right lower extremity, I did take off his dressings and examine his limb. He does not demonstrate any signs of active infection at his open wound or at his pin sites. I replaced the dressings in these areas with Xeroform, 4 x 4's, Roly wrap and I recommend leaving them in place at this time. The patient does have diffuse, extensive soft tissue swelling noted at this time, but this is improved since last examination. With regards to an operative plan for the patient's right ankle, I believe that we have 3 options. Option 1 would be for open reduction internal fixation of his ankle fracture with extensive syndesmotic fixation. Option 2 would be for acute tibial talocalcaneal arthrodesis. Option 3 would be for definitive management in his current external fixator No matter which option of the above that we choose, I do believe the patient is at an extremely high risk for infection, infection requiring additional surgery, or even infection requiring amputation. Due to the patient's high BMI, his advanced age, a primary amputation for this problem or amputation in the future would be a devastating consequence for him and he would likely never walk again. I think the best he could hope for after a below-knee amputation would be to stand/pivot transfer on a prosthesis. I did call and discuss the patient's case with his in addition to discussing it in great detail with him. 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 I did explain to the patient and his that I am concerned about his ability to heal wounds about his ankle from ORIF of his fracture. I am also concerned about the deformity, pain, and potential for skin ulceration if we were to manage him definitively an external fixator. I do think that the patient's high BMI, neuropathy, and soft tissue injury to the right lower extremity does suggest that he meets indications for acute tibial talocalcaneal arthrodesis, I do also think that TTC nail is the best chance at having just 1 surgery, because I am quite concerned about placing an incision on the medial side near his open fracture wound and the chance of him getting an infection. I did explain to him and his in very plain terms that regardless of which surgical option we choose he is at a very high risk from the surgery of infection, nonunion, malunion. With regards to our approach at joint preparation, ideally, I would perform an open joint prep, but this would be a large incision on the side of the ankle with a fibular osteotomy and I do believe that this is a significant risk to the patient's soft tissues. For the reasons we described above, I do not believe this is the best approach. I do think that a minimally invasive preparatory approach to the ankle is more reasonable for this patient considering his current soft tissue status. I did explain that with minimally invasive preparation, there is a higher risk of nonunion, but we will plan to do everything possible to improve the chances of using such as using augment and supplemental fixation across the ankle and subtalar joints. The patient and his understand that this is a very risky surgery. He understands the risks include but are not limited to: Loss of life/limb, DVT, incomplete relief of pain, infection, wound healing complications, need for additional surgery, iatrogenic injury to bone/nerve/tendon/vessel, decreased ambulatory status. No promises or guarantees were made. Through shared decision making model, the patient and his both agree that acute tibial talocalcaneal arthrodesis is the most appropriate surgical plan. Surgical plan: Removal right lower extremity external fixator with tendo Achilles lengthening and tibiotalocalcaneal arthrodesis We will plan to do this on 03/25/2024. N.p.o. after midnight the night before. Hold DVT prophylaxis the morning of surgery. Admission and Anticipated Discharge Date Admission Date: March 13, 2024 Subjective Resting comfortably this morning. Doing well with regards to his left foot. Anxious for his right lower extremity surgery. Review of Systems Review of Systems: All systems reviewed & are unremarkable except as noted in HPI & below Physical Exam Physical Exam: Right lower extremity: -Dressings removed and skin examined. T he open wound noted medially was a transverse laceration approximately 3 cm proximal to the medial malleolus. This is reapproximated with nylon sutures without signs of active infection. The patient has significant edema about his right ankle as well as significant ecchymosis. No fracture blisters are noted. Patient demonstrates diffuse diminished sensation in a stocking-like distribution at baseline. Results & Data Vital Signs (Past 12 Hours) Vital Signs Temp Pulse Resp BP BP Pulse Ox O2 Del Method 03/22/24 15:33 36.4 C L 82 16 136/76 96 Room Air 03/22/24 10:23 Room Air 03/22/24 05:48 36.5 C 81 18 129/71 95 Room Air (3) Diabetic neuropathy Diabetes mellitus complication detail: diabetic polyneuropathy Diabetes mellitus type: type 2 Qualified Code(s): E11.42 - Type 2 diabetes mellitus with diabetic polyneuropathy
--- NOTE | 2024-03-22 21:24 | Podiatry Progress Note ---
Date of Service March 22, 2024 Assessment & Plan (1) Open fracture dislocation of ankle: (2) Diabetic neuropathy: (3) Diabetic foot ulcer: (4) Status post partial amputation of foot: (5) Acute osteomyelitis of left foot: (6) Chronic ulcer of left foot with necrosis of bone: Plan Patient was examined and evaluated. POD #4 - Dressing Changed, foot cleaned and redressed. - Should have surgical shoe/boot for any ambulation, to avoid increasing fall risk. - Sutures are intact to the foot. Pathology/C&S pending. Surgically, clean margins believe to be obtained. - Can likely continue oral abx empircally for 2 weeks. - No further left foot intervention planned. With him anticipating the definitive right ankle surgical correction in the next few days, I will continue to monitor every few days. - Left foot dressing can be changed by nursing or physicians as needed for further assessment. Admission and Anticipated Discharge Date Admission Date: March 13, 2024 Subjective Patient seen at bedside at lunchtime. States that he just saw "the other foot doctor" and is anticipating his more definitive surgical correction later this week. Has no concerns about his left foot and has had the dressing changed over the weekend. Denies any new concerns of infection. Has remained nonweightbearing and has not attempted any movement other than turning from side to side. Review of Systems Constitutional: + fever; no chills and no fatigue Eyes: no problem reported Ear, Nose, Mouth, Throat: no problem reported Respiratory: no problem reported Cardiovascular: + edema; no problem reported Gastrointestinal: + nausea and + vomiting; no problem repo rted Genitourinary: no problem reported Musculoskeletal: no problem reported Integumentary: + skin ulcer, + wounds and + erythema Neurologic: + loss of sensation, + numbness and + pa resthesia; no generalized weakness Psychiatric: no problem reported Physical Exam Physical Exam: Right lower extremity external fixator in place with post-surgical dressing intact, left intact. Sutures aree intact to the left foot with no early dehiscence noted. There is some maceration to the incision, consistent with the Xeroform nonadherent dressing noted. No purulence or drainage noted. No active bleeding.No ascending cellulitis. Constitutional: WD/WN, vitals as above + ill appearing, + morbidly obese and comfortable Eyes: PERRL, conjunctivae normal, anicteric sclerae ENMT: external ear and nose normal, oropharynx normal Neck: trachea midline, no thyromegaly normal visual inspection Respiratory: normal respiratory effort; no respiratory distress Cardiovascular: Rate/Rhythm: regular rate and regular rhythm Vessels: + posterior tibial pulses abnormal and + dorsalis pedis pulses abnormal Extremities: normal capillary refill Chest (Breasts): Chest: normal inspection of chest Gastrointestinal (Abdomen): Inspection/Auscultation: abdomen normal to inspection Percussion/Palpation: + abdomen tender and abdomen soft Musculoskeletal: no cyanosis or clubbing, extremities motor strength 5/5 Head/Neck/Chest: normocephalic and head atraumatic Extremities: extremities normal to inspection, + lower extremity abnormal to inspection Bilateral (R Ex- fix intact. Left toe amputations to 1st, 2nd. ) and + limited ROM of lower extremity Skin: no rashes, warm and dry + ulcer, + wound, + erythema, + fluctulance, + fistulous tract and + nails dystrophic Neurologic: awake; + abnormal touch/pain/proprioception, + abnormal sensation to monofilament and no focal motor deficits Psychiatric: A+Ox3, euthymic affect Results & Data Results & Data Vital Signs (Past 12 Hours) Vital Signs Temp Pulse Resp BP Pulse Ox O2 Del Method 03/22/24 19:29 36.4 C L 98 H 18 161/80 H 96 Room Air 03/22/24 15:33 36.4 C L 82 16 136/76 96 Room Air 03/22/24 10:23 Room Air (1) Open fracture dislocation of ankle Encounter type: initial encounter Laterality: right Open fracture type: open type III Qualified Code(s): S82.891C - Other fracture of right lower leg, initial encounter for open fracture type IIIA, IIIB, or IIIC (2) Diabetic neuropathy Diabetes mellitus complication detail: diabetic polyneuropathy Diabetes mellitus type: type 2 Qualified Code(s): E11.42 - Type 2 diabetes mellitus with diabetic polyneuropathy (3) Diabetic foot ulcer Diabetic foot ulcer location: midfoot Diabetes mellitus type: type 2 Laterality: left Non-pressure ulcer stage: with necrosis of bone Qualified Code(s): E11.621 - Type 2 diabetes mellitus with foot ulcer; L97.424 - Non- pressure chronic ulcer of left heel and midfoot with necrosis of bone (4) Status post partial amputation of foot Laterality: left Qualified Code(s): Z89.432 - Acquired absence of left foot
[2024-03-23 08:06] LABS: Hematocrit (blood only) 29.7 % (42.0-52.0); Hemoglobin 9.3 g/dl (14.0-18.0); Mean Corpuscular Hemoglobin 26.6 pg (25.0-34.0); Mean Corpuscular Hgb Conc 31.3 g/dL (32.0-36.0); Mean Corpuscular Volume 84.9 fL (80.0-100.0); Mean Platelet Volume 8.4 fL (9.4-12.4); Platelet Count 225 K/uL (130-400); RDW Standard Deviation 43.2 fL (36.4-46.3)
[2024-03-23 08:25] LABS: BUN Creatinine Ratio 21.1 (10-20); Calcium 8.8 mg/dl (8.6-10.3); Creatinine Clr Calc Pharmacy 64.7 ml/min; Potassium 4.2 mmol/L (3.5-5.1)
[2024-03-23] MEDS: LANTUS PER UNIT CHARGE SC SCH (08:46)
--- NOTE | 2024-03-23 10:09 | Pharmacy Report ---
Pharmacy Glycemic Short Note 2 - Date of Service March 23, 2024 - Glycemic Short BSG Results (Last 24 hours): 03/22/24 03/22/24 03/22/24 11:44 16:37 20:02 Glucose POC Glucose 116 H 176 H 169 H 03/23/24 03/23/24 07:26 07:28 Glucose 136 H POC Glucose 161 H OUTPATIENT ANTIDIABETIC REGIMEN: * Lantus 70 units SC AM * Novolog SSI * Jardiance 25 mg PO AM * Metformin 500 mg PO BID * Mounjaro 2.5mg SC weekly * HbA1c: 6.0% (03/17/24) ASSESSMENT: 03/23: * Enrique received 40 units of insulin yesterday, 20 of both basal and bolus. BSGs were: 320-933-271-169 mg/dL. * Stressors remain stable with dapto for osteomyelitis and POD #5 from TMA. Given postoperative status, want to ensure BSGs are < 180 mg/dL to minimize postop infection risk. * Fasting BSG increased to 161 mg/dL this AM. Feel comfortable increasing basal by ~20% this AM. Patient did have hypoglycemia previously during this admission but was with minimal PO intake and 50 units of basal insulin. * Given evening trend of postprandial hyperglycemia, will tighten carb ratio very slightly this AM. 03/22: * A total of 29 units of insulin were given yesterday (20 units were basal). * Fasting BSG was within goal range this morning so Lantus will be continued as ordered. * Bolus insulin parameters were tightened on 03/20 and BSGs have mostly been within the goal range since then (ranged from 115-146mg/dL). Will continue with this bolus insulin parameters. * Of note: patient received 2.5mg tirzepatide on the evening of 03/19. (his own medication) * POD#4 TMA and patient continues on daptomycin 03/19: * BSGs have been on the lower end the last few days. BSG on 03/17 and into 03/18 were all below goal range so basal insulin was held. * He only required 1 unit of insulin total yesterday and it was bolus (BSGs ranged from 84-155 yesterday) * Patient was reported to have eaten all of his breakfast today and his BSG ritesh to 276mg/dL at lunch today. Lantus 20 units was given and will be continued daily. * Bolus insulin parameters to be continued as is for now. * POD #1 and pt continues on daptomycin for osteo. 03/17: * Mr Alvarado is a 68yo diabetic M admitted with R open ankle fx. * Pt is scheduled to go to the OR tomorrow for L foot amputation, and will be NPO p midnight. * Pt had an episode of symptomatic hypoglycemia (BSG 46) yesterday evening. Pharmacy glycemic consult was then placed. * Lantus dose was reduced significantly this morning. Carb ratio was removed from Novolog. Will hold metformin after today's dose in preparation for OR tomorrow. * Pharmacy will continue to follow during admission and adjust regimen as indicated. PLAN FOR INPATIENT GLYCEMIC CONTROL: * Hold outpatient oral diabetes medications * Basal insulin * Lantus 25 units SC daily * Bolus insulin * NovoLog per scale ACHS or Q6hrs while NPO * Goal Range: Low 110 mg/dL - High 140 mg/dL * Correction Factor: 25 mg/dL/unit * Nutritional / Prandial insulin per carb ratio: 1 unit/8 grams CHO
--- NOTE | 2024-03-23 12:58 | Hospitalist Progress Note ---
Date of Service March 23, 2024 Assessment & Plan (1) Chronic ulcer of left foot with necrosis of bone: Plan: Patient w/ hx of osteomyelitis on chronic abx therapy of [facility] outpatient. CT right foot: extensive, diffuse cellulitis w/ most prominent induration medical to the distal tibia. No organized or drainable collection. scattered gas likely is related to open nature of the fracture and operative manipulation. CT left foot: induration and probable disorganized abscess noted plantar lateral to the distal 5th metatarsal. no ct evidence osteomyelitis MRI left foot: amputated left first and 2nd toes. bone resorption of 5th metatarsal head w/ soft tissue mass at plantar aspect. arthritic changes at intertarsal and tarsometatarsal articulations. atrophic fatty infiltration of foot musculature. subcutaneous edema of foot. Podiatry consulted, Dr. Mccray - s/p left transmetatarsal amputation on 03/18. - surgical shoe for ambulation OR culture: No organisms. Final. Bone path: pending Left foot wound culture: staph pseudintermediu with multiple resitances. - started Daptomycin 03/18, statin held Consult infectious disease given complexity of patient's wounds, continue daptomycin final regimen/duration pending, if no residual OM then shorter course of abx. Pt with poor mobility currently and plan to return to OR, will plan to keep barrett inplace for now. Added IS. Plan to check CBC/BMP q every other day while on IV abx. PT/OT following, recommending rehab. - CM following, looking for bed Clarification on weight bearing status - Dr. Shin states non WB RLE, defer to Dr. Mccray for LLE. Message sent to Dr. Mccray, awaiting response. (2) Open fracture dislocation of ankle: Plan: Sustained the open fracture dislocation taken S/p Application external fixator right foot at washout with Dr. Chepe Daly 03/13 - NWB right foot - Eliquis for DVT proh - f/u with Dr. Shin for definitive treatment Dr. Shin consulted options for definitive correction include open reduction internal fixation of ankle fx w/ extensive syndesmotic fixation vs acute tibial talocalcaneal arthrodesis. patient extremely high risk for infection - plan for surgical intervention 03/25 Orthopedics have deemed patient medically stable from their standpoint for discharge, patient transferred to hospitalist service for further care on 03/16 (3) Diabetic nephropathy associated with type 2 diabetes mellitus: Plan: this patient is on many medications including insulin, Mounjaro, and metformin Patient w/ recurrent hypoglycemic episodes while inpatient. Pharmacy was consulted to aid in glycemic management (4) CAD (coronary artery disease): Plan: history of cardiac arrest, non occlusive CAD, previously preserved LV function. EF >70% on 11/2021 echo Typically on aspirin and atorvastatin Patient takes Lasix 20 mg a day Plan Chronic stable medical conditions: * BPH continue tamsulosin * tim will continue NIPPV * CKD - Cr stable, encourage PO hydration DVT prophylaxis: eliquis BID Disposition: continued inpatient stay awaiting OR and final ID recommendations Discussed case with Dr. Shin and Dr. Mahendra PRESCOTT for 03/22 Admission and Anticipated Discharge Date Admission Date: March 13, 2024 Supervising Physician Co-Signing Physician Notes Attending Attestation - Chart reviewed, care plan d/w ROXY Cortez. I agree w/ the guevara components of her documentation. Appreciate ortho, ID, and podiatry assistance. Pt's K today is 4.2 -- he takes a potassium binding agent - may need to hold such if K continues to drop. Johann Leiva MD Subjective Patient seen lying in bed, has not been out of bed since surgery. Doing well in regards to pain more bowel movements yesterday no acute concerns, wanting it to be afternoon Review of Systems Review of Systems: All systems reviewed & are unremarkable except as noted in Subjective Physical Exam Physical Exam: General: NAD, VS as above, lying in bed Resp: normal respiratory effort, lungs clear to auscultation CV: RRR, no murmur, Abd: normal bowel sounds, non tender, soft Extremities:left foot s/p toe amputation, dressing not removed, c/d/i. Right foot external fixation device in place. Neuro: A&O x3, Results & Data Results & Data Vital Signs (Past 12 Hours) Vital Signs Temp Pulse Resp BP Pulse Ox O2 Del Method 03/23/24 10:00 Room Air 03/23/24 07:07 97.5 F L 81 18 148/76 H 96 Room Air Laboratory Results cbc and chemistry reviewed PG Care Time/CCT Total # of Minutes Spent Total Time Spent with Patient: Total time spent is greater than 50% in coordination of care (as documented) at patient's floor/unit and/or counseling patient: Coding Level of Care Code 24044 SUB INP/OBS CARE 350MIN Diagnoses Chronic ulcer of left foot with necrosis of bone L97.524 Type III open fracture dislocation of right ankle, initial encounter S82.891C Encounter type: initial encounter Laterality: right Open fracture type: open type III Diabetic nephropathy associated with type 2 diabetes mellitus E11.21 CAD (coronary artery disease) I25.10 (2) Open fracture dislocation of ankle Encounter type: initial encounter Laterality: right Open fracture type: open type III Qualified Code(s): S82.891C - Other fracture of right lower leg, initial encounter for open fracture type IIIA, IIIB, or IIIC
[2024-03-24 04:45] LABS: Creatinine Clr Calc Pharmacy 60.8 ml/min
--- NOTE | 2024-03-24 11:04 | Hospitalist Progress Note ---
Date of Service March 24, 2024 Assessment & Plan (1) Chronic ulcer of left foot with necrosis of bone: Plan: Patient w/ hx of osteomyelitis on chronic abx therapy of [facility] outpatient. CT right foot: extensive, diffuse cellulitis w/ most prominent induration medical to the distal tibia. No organized or drainable collection. scattered gas likely is related to open nature of the fracture and operative manipulation. CT left foot: induration and probable disorganized abscess noted plantar lateral to the distal 5th met[address]al. no ct evidence osteomyelitis MRI left foot: amputated left first and 2nd toes. bone resorption of 5th metatarsal head w/ soft tissue mass at plantar aspect. arthritic changes at intertarsal and tarsometatarsal articulations. atrophic fatty infiltration of foot musculature. subcutaneous edema of foot. Podiatry consulted, Dr. Mccray - s/p left transmetatarsal amputation on 03/18. - surgical shoe for ambulation OR culture: No organisms. Final. Bone path: soft tissues without significant inflammation. Left foot wound culture: staph pseudintermediu with multiple resistances. Consult infectious disease given complexity of patient's wounds, - continue daptomycin for total 7 day course (today is day 7). statin held Pt with poor mobility currently and plan to return to OR, will plan to keep barrett inplace for now. Added IS. PT/OT following, recommending rehab. - CM following, looking for bed Clarification on weight bearing status - Dr. Shin states non WB RLE. Dr. Mccray full WB LLE with post op shoe AM CBC and BMP. NPO at midnight, khari held (2) Open fracture dislocation of ankle: Plan: Sustained the open fracture dislocation taken S/p Application external fixator right foot at washout with Dr. Chepe Daly 03/13 - NWB right foot - Eliquis for DVT proh - f/u with Dr. Shin for definitive treatment Dr. Shin consulted - patient extremely high risk for infection and possible need for amputation - plan for surgical intervention 03/25 Orthopedics have deemed patient medically stable from their standpoint for discharge, patient transferred to hospitalist service for further care on 03/16 (3) Diabetic nephropathy associated with type 2 diabetes mellitus: Plan: this patient is on many medications including insulin, Mounjaro, and metformin Patient w/ recurrent hypoglycemic episodes while inpatient. Pharmacy was consulted to aid in glycemic management (4) CAD (coronary artery disease): Plan: history of cardiac arrest, non occlusive CAD, previously preserved LV function. EF >70% on 11/2021 echo Typically on aspirin and atorvastatin Patient takes Lasix 20 mg a day Plan Chronic stable medical conditions: * BPH continue tamsulosin * tim will continue NIPPV * CKD - Cr stable, encourage PO hydration DVT prophylaxis: eliquis BID, held with OR tomorrow Disposition: continued inpatient stay awaiting OR and final ID recommendations LM for 03/22, she was updated extensively by Dr. Shin Case discussed with Dr. Shah, ID and Dr. Mccray, podiatry Admission and Anticipated Discharge Date Admission Date: March 13, 2024 Supervising Physician Co-Signing Physician Notes Attending Attestation - Chart reviewed, care plan d/w ROXY Cortez. I agree w/ the guevara components of her documentation. Appreciate ortho, ID, and podiatry assistance. Back to OR tomorrow for right ankle surgery with Dr Shin, orthopedics. Johann Leiva MD Subjective Patient seen lying in bed, reports he was able to stand x2 with therapy this morning. Had two bowel movements this morning plan for OR tomorrow, aware NPO at midnight Review of Systems Review of Systems: All systems reviewed & are unremarkable except as noted in Subjective Physical Exam Physical Exam: General: NAD, VS as above, lying in bed Resp: normal respiratory effort, lungs clear to auscultation CV: RRR, no murmur, Abd: normal bowel sounds, non tender, soft Extremities:left foot s/p toe amputation, dressing not removed, c/d/i. Right foot external fixation device in place. Neuro: A&O x3, Results & Data Results & Data Vital Signs (Past 12 Hours) Vital Signs O2 Del Method 03/24/24 07:26 Room Air Laboratory Results Cr reviewed PG Care Time/CCT Total # of Minutes Spent Total Time Spent with Patient: Total time spent is greater than 50% in coordination of care (as documented) at patient's floor/unit and/or counseling patient: Coding Level of Care Code 82425 SUB INP/OBS CARE 3/50MIN Diagnoses Chronic ulcer of left foot with necrosis of bone L97.524 Type III open fracture dislocation of right ankle, initial encounter S82.891C Encounter type: initial encounter Laterality: right Open fracture type: open type III Diabetic nephropathy associated with type 2 diabetes mellitus E11.21 CAD (coronary artery disease) I25.10 (2) Open fracture dislocation of ankle Encounter type: initial encounter Laterality: right Open fracture type: open type III Qualified Code(s): S82.891C - Other fracture of right lower leg, initial encounter for open fracture type IIIA, IIIB, or IIIC
--- NOTE | 2024-03-24 15:50 | Infectious Disease Progress Nt ---
Date of Service March 24, 2024 Assessment & Plan (1) Acute osteomyelitis of left foot: (2) Diabetic neuropathy: (3) Diabetic foot ulcer: (4) Diabetic nephropathy associated with type 2 diabetes mellitus: (5) CKD stage 3 due to type 2 diabetes mellitus: Plan 68yo M with h/o diabetes, advanced neuropathy in bl LE, toe amputations on left 6yrs ago, right foot wounds, recent diabetic foot infection with possible left foot OM in 12/2023 (was tx with vanc/zosyn at [facility], sent to rehab on PO clindamycin with doxycycline added later, ultimately put on levofloxacin 250mg qd until ID f/u on 03/24/24), CHRISTINA, CKD III, BPH who presented on 03/13 after a fall and twisted his ankle resulting in an open fracture dislocation of right tibiotalar joint. Afebrile, vss. No leukocytosis, Cr 1.86>>1.97. XR right foot with acute fracture dislocation of the right ankle with open tibial fracture component. CXR with interstitial markings. S/p I+D and external fixator of right foot on 03/13. He was seen by podiatry after he was noted to have continued left foot ulceration and infection. Left foot MRI with bone resorption of 5th MT head with soft tissue mass at its plantar aspect, possibilities include erosive arthritis, gout, septic arthritis. Left foot CT with induration and probable disorganized abscess noted plantar lateral to the distal fifth metatarsal; no CT evidence of osteomyelitis. R foot CT with extensive, diffuse cellulitis with most prominent induration medial to the distal tibia, no organized or drainable collection, no OM. S/p OR 03/18 and underwent left foot transmetatarsal amputation (left 5th MT bone cx, proximal margin, and gross path was sent). He has been getting empiric IV abx, currently on daptomycin. ID consulted 03/18. OR cx with skin owen (cx were of affected bone). OR path of proximal margin had viable appearing bone and soft tissue without significant inflammation. OR path negative for OM at proximal margin. He can complete short course of abx for soft tissue infection. Given appaerance of surgical site, no residual SSTI today. He can complete 7 days of postop abx and then stop, which will be complete today. # Left foot infection w/ c/f OM s/p TMA 03/18 resection margin neg for OM # Right ankle fracture s/p surgery # h/o Diabetes # H/o prior left foot OM treatment in 12/2023 - continue on daptomycin through today and then stop (today is day 7 of abx) - rest of care per primary team ID will discontinue active follow up at this time. Please do not hesitate to reconsult the Infectious Diseases service as needed. Becka Eaton MD [facility], Division of Infectious Diseases [facility]: [phone] Admission and Anticipated Discharge Date Admission Date: March 13, 2024 Subjective Subsequent visit was provided via telemedicine using two-way real-time interactive telecommunication between the patient and the telemedicine provider. For the duration of the visit, the provider was performing the assessment from a different facility than the patient. This includesuse of bluetooth stethoscope forauscultationperformed by the telepresenter that the telemedicine provider can hear if described in the physical exam. [facility] contact information: Please call [facility] Call Center [phone]. (Phone Number For Physician Use Only) After establishing a telemedicine visit, patient was: Patient was verified with two unique identifiers, Patient/authorized rep acknowledged consent and understanding and Gave permission to continue telehealth session Time Spent with Patient: Subsequent => 35 min Patient doing well, without complaints. No pain, no abdominal discomfort. Physical Exam Physical Exam: General: Awake, alert, no acute distress HEENT: NC/AT, EOMI, mmm Neck: supple Lungs: respirations non-labored Ext: LLE with well healing surgical site, minimal healing pinkish skin, no cellulitic changes Results & Data Vital Signs (Past 12 Hours) Vital Signs Temp Pulse Resp BP Pulse Ox O2 Del Method 03/24/24 14:37 36.3 C L 86 18 127/71 95 Room Air 03/24/24 07:26 Room Air Laboratory Results Labs reviewed. Diagnostic Findings Imaging reviewed. (2) Diabetic neuropathy Diabetes mellitus complication detail: diabetic polyneuropathy Diabetes mellitus type: type 2 Qualified Code(s): E11.42 - Type 2 diabetes mellitus with diabetic polyneuropathy (3) Diabetic foot ulcer Diabetic foot ulcer location: midfoot Diabetes mellitus type: type 2 Lat erality: left Non-pressure ulcer stage: with necrosis of bone Qualified Code(s): E11.621 - Type 2 diabetes mellitus with foot ulcer; L97.424 - Non- pressure chronic ulcer of left heel and midfoot with necrosis of bone
[2024-03-24] MEDS: SODIUM CHLORIDE 0.9% 1,000 ML IV SCH (23:02)
[2024-03-25] MEDS ORDERED: EPINEPHrine INJ 1 MG/ML AMP ONE (06:30)
[2024-03-25] MEDS ORDERED: BUPIVACAINE 0.25% PF 30 ML VIAL ONE (06:30)
[2024-03-25 08:24] LABS: Hemoglobin 8.4 g/dl (14.0-18.0); Mean Corpuscular Hemoglobin 26.4 pg (25.0-34.0); Mean Corpuscular Hgb Conc 31.1 g/dL (32.0-36.0); Mean Corpuscular Volume 84.9 fL (80.0-100.0); Mean Platelet Volume 8.6 fL (9.4-12.4); Platelet Count 231 K/uL (130-400); RDW Coefficient of Variation 14.2 % (11.5-14.5); RDW Standard Deviation 43.8 fL (36.4-46.3); Red Blood Count 3.18 M/uL (4.70-6.10); White Blood Count 6.41 K/ul (4.8-10.8)
[2024-03-25 08:43] LABS: BUN Creatinine Ratio 18.8 (10-20); Calcium 8.5 mg/dl (8.6-10.3); Creatinine Clr Calc Pharmacy 62.8 ml/min; Potassium 4.3 mmol/L (3.5-5.1)
[2024-03-25] MEDS ORDERED: SUCCINYLCHOLINE CHLORIDE 20 MG/ML 10 ML VIAL IV ONE ×2 (09:49→11:32)
[2024-03-25] MEDS ORDERED: fentaNYL citrate PF 100 MCG/2 ML VIAL ONE ×4 (09:49→14:05)
[2024-03-25] MEDS ORDERED: PROPOFOL IV EMULSION 10 MG/ML 20 ML VIAL IV ONE (09:49)
[2024-03-25] MEDS ORDERED: ROCURONIUM BROMIDE 10 MG/ML 5 ML VIAL IV ONE (09:49)
[2024-03-25] MEDS: LANTUS PER UNIT CHARGE SC SCH ×2 (10:22→20:30)
[2024-03-25] MEDS ORDERED: ePHEDrine sulfate 50 MG/ML AMP IV PRN (10:58)
[2024-03-25] MEDS ORDERED: ATROPINE SULFATE 0.1 MG/ML 10ML SYR IV PRN (10:58)
[2024-03-25] MEDS ORDERED: fentaNYL citrate PF 100 MCG/2 ML VIAL IV PRN (10:58)
[2024-03-25] MEDS ORDERED: HYDROmorphone INJ 1 MG/ML SYRINGE IV PRN (10:58)
[2024-03-25] MEDS ORDERED: ONDANSETRON INJ 2 MG/ML 2 ML VIAL IV PRN (10:58)
--- NOTE | 2024-03-25 11:03 | Anesthesiology Consultation ---
Date of Service March 25, 2024 Assessment & Plan ASA ASA4 Proposed Anesthesia Anesthesia Type: General Risk / Benefits Reviewed With: PT / POA / Parent / Guardian, Accepts Plan and Informed Consent Obtained History Surgery Operation Date: 03/13/24 18:00 Proposed Procedures p External Fixator Application - Chepe Daly DO Operation Date: 03/18/24 10:00 Proposed Procedures p Left Foot Amputation Transmetatarsal - Ariel Mccray DPM Operation Date: 03/25/24 11:00 Proposed Procedures p Right Ankle Removal of External Fixator, - Dieter Shin DO s Double Hind Foot Fusion Nail - Dieter Shin DO Height/Weight Height: 5 ft 9 in Weight: 170.4 kg Allergies Allergy/AdvReac Type Severity Reaction Status Date / Time No Known Allergies Allergy Verified 03/12/24 11:06 Medications Home Medications Medication Instructions Recorded Confirmed Last Taken aspirin 81 mg chewable tablet 81 mg PO QAM 07/26/20 03/01/24 04/01/22 lancets (Accu-Chek Fastclix Lancet 08/23/20 03/01/24 Unknown Drum) FreeStyle Remigio 2 [place] (flash #1 ea 01/24/21 03/01/24 Unknown glucose scanning reader) FreeStyle Remigio 2 Sensor (flash #7 ea 01/24/21 03/01/24 Unknown glucose sensor) mecobalamin (vitamin B12) 1,000 1,000 mcg PO QAM 01/17/22 03/01/24 04/01/22 mcg lozenges aluminum-mag hydroxide-simethicone 10 ml PO TID PRN .gi-upset 03/03/23 03/01/24 Unknown 400 mg-400 mg-40 mg/5 mL oral susp (Mylanta Maximum Strength) insulin glargine 100 unit/mL (3 70 unit subcut QAM 05/12/23 03/01/24 Unknown mL) subcutaneous pen (Basaglar KwikPen U-100 Insulin) metformin 500 mg tablet 500 mg PO BID 90 days #180 tabs 06/24/23 03/01/24 Unknown blood sugar diagnostic (Accu-Chek #100 ea 09/09/23 03/01/24 Unknown Guide test strips) pantoprazole 40 mg tablet,delayed 40 mg PO BID #180 tabs 09/09/23 03/01/24 Unknown release (Protonix) albuterol sulfate 90 mcg/actuation 2 puff inhalation .Q4-6H PRN 11/25/23 03/01/24 Unknown aerosol inhaler shortness of breath or wheezing #6.7 grams cyanocobalamin (vitamin B-12) 1,000 mcg PO DAILY 12/26/23 03/01/24 Unknown 1,000 mcg capsule Saccharomyces boulardii 250 mg 250 mg PO BID #60 caps 01/13/24 03/01/24 Unknown capsule (Florastor) sodium zirconium cyclosilicate 10 10 g PO DAILY #30 ea 01/29/24 03/01/24 Unknown gram oral powder packet Mounjaro 2.5 mg/0.5 mL 2.5 mg (0.5 mL) subcut Q7D #2 mL 02/13/24 03/01/24 Unknown subcutaneous pen injector (tirzepatide) tirzepatide 2.5 mg/0.5 mL mg subcut .Weekly 02/20/24 03/01/24 Unknown subcutaneous pen injector (Mounjaro) atorvastatin 10 mg tablet (Lipitor) 10 mg PO HS #90 tabs 02/24/24 03/01/24 Unknown duloxetine 20 mg capsule,delayed 20 mg PO BID #180 caps 02/24/24 03/01/24 Unknown release (Cymbalta) empagliflozin 25 mg tablet 25 mg PO QAM #90 tabs 02/24/24 03/01/24 Unknown (Jardiance) furosemide 20 mg tablet (Lasix) 20 mg PO QAM #90 tabs 02/24/24 03/01/24 Unknown insulin aspart U-100 100 unit/mL 80 unit (0.8 mL) subcut DAILY #72 02/24/24 03/01/24 Unknown (3 mL) subcutaneous pen (Novolog mL FlexPen U-100 Insulin aspart) pen needle, diabetic 31 gauge x #400 ea 02/24/24 03/01/24 Unknown 3/16" (BD Ultra-Fine Mini Pen Needle) tadalafil 2.5 mg tablet 2.5 mg PO DAILY #90 tabs 02/24/24 03/01/24 Unknown tamsulosin 0.4 mg capsule 0.4 mg PO HS #30 caps 02/24/24 03/01/24 Unknown cholecalciferol (vitamin D3) 25 25 mcg PO DAILY 03/01/24 03/12/24 Unknown mcg (1,000 unit) tablet (Vitamin D3) levofloxacin 500 mg tablet 500 mg PO DAILY 14 days #14 tabs 03/08/24 03/12/24 Unknown oxycodone 5 mg tablet 5 mg PO Q6H PRN pain #12 tabs 03/08/24 03/12/24 Unknown levofloxacin 500 mg tablet 500 mg PO DAILY 14 days #14 tabs 03/09/24 03/12/24 Unknown oxycodone 5 mg tablet 5 mg PO Q6H PRN pain #12 tabs 03/09/24 03/12/24 Unknown apixaban 2.5 mg tablet 2.5 mg PO BID 14 days #28 tabs 03/15/24 Unknown cefadroxil 500 mg capsule 500 mg PO BID 3 weeks #42 caps 03/15/24 Unknown oxycodone 5 mg tablet 5 mg PO Q6H PRN pain #30 tabs 03/15/24 Unknown Active Medications Generic Name Dose Route Start Last Admin Trade Name Freq PRN Reason Stop Dose Admin Apixaban 2.5 mg 03/13/24 21:00 03/24/24 08:24 Apixaban 2.5 Mg Tab PO 04/12/24 20:59 2.5 mg BID LIANA Administration Aspirin 81 mg 03/14/24 09:00 03/25/24 10:15 Aspirin 81 Mg Chew PO 04/13/24 08:59 Not Given QAM LIANA Atorvastatin Calcium 10 mg 03/13/24 21:00 03/17/24 21:22 Atorvastatin 10 Mg Tab PO 04/12/24 20:59 10 mg HS LIANA Administration Bisacodyl 10 mg 03/18/24 11:44 03/18/24 15:38 Bisacodyl 10 Mg Supp LA 04/17/24 11:43 10 mg DAILY PRN Administration Constipation Chlordiazepoxide HCl 10 mg 03/14/24 21:00 03/24/24 20:07 Chlordiazepoxide Hcl 10 Mg Cap PO 04/13/24 20:59 10 mg BID LIANA Administration Duloxetine HCl 20 mg 03/13/24 21:00 03/25/24 10:15 Duloxetine Hcl 20 Mg Cap PO 04/12/24 20:59 20 mg BID LIANA Administration Furosemide 20 mg 03/14/24 09:00 03/25/24 10:15 Furosemide 20 Mg Tab PO 04/13/24 08:59 20 mg QAM LIANA Administration Insulin Aspart 0 units 03/18/24 12:18 03/25/24 08:30 Insulin Aspart Per Unit Charge SC 04/17/24 05:59 Not Given ACHS LIANA Insulin Glargine 10 units 03/25/24 09:00 03/25/24 10:22 Lantus Per Unit Charge SC 03/25/24 12:00 10 units DAILY LIANA Administration Lorazepam 0.5 mg 03/14/24 12:55 03/14/24 20:11 Lorazepam 2 Mg/1 Ml Vial IV 04/13/24 12:54 0.5 mg Q6H PRN Administration Anxiety/Agitation/nausea Miscellaneous 15 - 30 gm 03/13/24 22:45 03/17/24 07:38 Carbohydrates For Hypoglycemia PO 04/12/24 22:44 15 gm UD PRN Administration Hypoglycemia Treatment Morphine Sulfate 2 mg 03/14/24 01:04 03/15/24 10:50 Morphine Sulfate 2 Mg/Ml Carp IV 03/28/24 01:03 2 mg Q3H PRN Administration Pain Ondansetron HCl 4 mg 03/13/24 20:38 03/15/24 10:43 Ondansetron Inj 2 Mg/Ml 2 Ml Vial IV 04/12/24 20:37 4 mg Q6H PRN Administration Nausea/Vomiting Oxycodone/Acetaminophen 1 - 2 tab 03/13/24 20:38 03/24/24 23:14 Oxycodone/Acetaminophen 5mg/325mg Tab PO 03/27/24 20:37 2 tab Q4H PRN Administration Pain Pantoprazole Sodium 40 mg 03/13/24 21:00 03/25/24 10:15 Pantoprazole 40 Mg Tab PO 04/12/24 20:59 40 mg BID LIANA Administration Polyethylene Glycol 17 gm 03/15/24 21:00 03/25/24 10:17 Polyethylene (Miralax) 17 Gm Pack PO 04/14/24 20:59 Not Given BID LIANA Saccharomyces Boulardii 250 mg 03/13/24 21:00 03/25/24 10:15 Saccharomyces Boulardii 250 Mg Cap PO 04/12/24 20:59 250 mg BID LIANA Administration Senna/Docusate Sodium 1 tab 03/22/24 12:45 03/25/24 10:15 Docusate Sodium/Senna 50/8.6mg Tab PO 04/21/24 12:44 1 tab QAM LIANA Administration Sodium Zirconium Cyclosilicate 10 gm 03/14/24 11:00 03/24/24 12:07 Sodium Zirconium Cyclosilicate 10 Gm Packet PO 04/13/24 10:59 10 gm DAILY@1100 LIANA Administration Tamsulosin HCl 0.4 mg 03/13/24 21:00 03/24/24 20:03 Tamsulosin Hcl 0.4 Mg Cap PO 04/12/24 20:59 0.4 mg HS LIANA Administration NPO Date Last Intake of Fluids: 03/24/24 Time Last Intake of Fluids: 18:00 Last Intake of Fluids Comment: water Date Last Intake of Solids: 03/25/24 Time Last Intake of Solids: 18:00 Last Intake of Solids Comment: cupcake fig bar Past Medical History Medical History Hx of back injury Hx MRSA infection History of colon polyps Exercise / Class Metabolic Activity II 4-5 Yardwork/Stairs/Walk up hill Past Family History Family History Mother Family history of diabetes mellitus Father History of alcoholism History of liver cancer Sister Cancer Denies family history of Ovarian cancer Prostate cancer Crohn's disease Breast cancer Colorectal cancer Past Surgical History Surgical History H/O kyphoplasty (2022) following L1 burst fracture Status post amputation of toe of left foot History of cardiac cath following an unexplained cardiac arrest>per medical record>11/05/21, [facility], no stents Status post amputation of left great toe History of incision and drainage Hx of I&D of mendel-rectal abscess History of cataract surgery bilt History of cholecystectomy History of tooth extraction History of colonoscopy Colonoscopy 01/21/[address] Garg. History of adenoidectomy History of tonsillectomy Status post uvulopalatopharyngoplasty S/P foot surgery, left Past Anesthesia History No Hx of Anesthesia Complications and No Family Hx of Anesthesia Complications History of PONV No Hx of PONV and No Hx of Motion Sickness Social History Smoking Status: Never smoker tobacco type: cigarettes Do You Dip or Chew Tobacco: No Hx Alcohol Use: Yes Alcohol type: wine alcohol intake frequency: holidays/special occasions only Hx Substance Use: No substance use type: does not use Review of Systems denies fever/cough/ colds/ chest pain/ SOB/ CHRISTINA denies CHRISTINA Physical Exam Vital Signs Last Vital Signs Temp 36.5 C 03/25/24 10:31 Pulse 78 03/25/24 10:31 Resp 18 03/25/24 10:31 BP 132/75 03/25/24 10:31 Pulse Ox 95 03/25/24 10:31 O2 Del Method Room Air 03/25/24 10:31 O2 Flow Rate 2 03/19/24 07:56 ENMT Mouth: no TMJ abnormality and no dentition abnormality Thyromental Distance: > or= 3.5 Finger Breadths Mallampati Class: II Neck neck extension not limited Respiratory + abnormal respiratory effort (very distance breath sounds. poor effort) and no respiratory distress Auscultation: lungs clear to auscultation bilaterally Cardiovascular Rate/Rhythm: regular rate and regular rhythm Neurologic moves all extremities Psychiatric Orientation: alert and oriented x 3 Testing Laboratory Results 03/25/24 07:21 03/25/24 07:21 Hemoglobin A1c 6.0 % (4.5-5.6) H 03/17/24 06:31 03/18/24 Unknown Gram Stain - Final Foot,Left Aerobic and Anaerobic Culture - Final Low counts mixed probable skin microbiota. No further identifications or sensitivities to follow. 03/15/24 12:40 Gram Stain - Final Foot Aerobic and Anaerobic Culture - Final Staphylococcus pseudintermediu 03/25/24 03/25/24 10:32 07:53 POC Glucose 158 H 138 H Electrocardiogram Date: 03/03/23 Findings: + NSR @ premature supraventricular complexes Echocardiogram Date: 11/05/21 EF: >70% Other Findings: + diastolic dysfunction (G1)
[2024-03-25] MEDS: ALBUT/IPRATROP 3MG/0.5MG NEB 3 ML VIAL NEB STA (11:08)
--- NOTE | 2024-03-25 11:16 | History & Physical Bridge Note ---
Date of Service March 25, 2024 History & Physical Bridge Note I have examined the patient, reviewed the History & Physical and in the interval since the performance of the History & Physical I have noted the following changes of clinical significance: Enrique is a 68-year-old gentleman who sustained a open fracture/dislocation of his right ankle. Initially, he received appropriate antibiotics, tetanus update, and was taken to the operating room with Dr. Daly for irrigation and debridement with closed reduction and application of external fixator. At this time, the patient is resting comfortably in bed in his external fixator. He remains in the hospital due to difficulty with finding placement after left TMA by podiatry. With regards to the patient's right lower extremity, I did take off his dressings and examine his limb. He does not demonstrate any signs of active infection at his open wound or at his pin sites. his swelling has improvedPlan With regards to an operative plan for the patient's right ankle, I believe that we have 3 options. Option 1 would be for open reduction internal fixation of his ankle fracture with extensive syndesmotic fixation. Option 2 would be for acute tibial talocalcaneal arthrodesis. Option 3 would be for definitive management in his current external fixator No matter which option of the above that we choose, I do believe the patient is at an extremely high risk for infection, infection requiring additional surgery, or even infection requiring amputation. Due to the patient's high BMI, his advanced age, a primary amputation for this problem or amputation in the future would be a devastating consequence for him and he would likely never walk again. I think the best he could hope for after a below-knee amputation would be to stand/pivot transfer on a prosthesis. I did discuss the patient's case with him and his in great detail. 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 I did explain to the patient and his that I am concerned about his ability to heal wounds about his ankle from ORIF of his fracture. I am also concerned about the deformity, pain, and potential for skin ulceration if we were to manage him definitively an external fixator. I do think that the patient's high BMI, neuropathy, and soft tissue injury to the right lower extremity does suggest that he meets indications for acute tibial talocalcaneal arthrodesis, I do also think that TTC nail is the best chance at having just 1 surgery, because I am quite concerned about placing an incision on the medial side near his open fracture wound and the chance of him getting an infection. I did explain to him and his in very plain terms that regardless of which surgical option we choose he is at a very high risk from the surgery of infection, nonunion, malunion, poor wound healing. With regards to our approach at joint preparation, ideally, I would perform an open joint prep, but this would be a large incision on the side of the ankle with a fibular osteotomy and I do believe that this is a significant risk to the patient's soft tissues. For the reasons we described above, I do not believe this is the best approach. I do think that a minimally invasive preparatory approach to the ankle is more reasonable for this patient considering his current soft tissue status. I did explain that with minimally invasive preparation, there is a higher risk of nonunion, but we will plan to do everything possible to improve the chances of using such as using augment and supplemental fixation across the ankle and subtalar joints. The patient and his understand that this is a very risky surgery. He understands the risks include but are not limited to: Loss of life/limb, DVT, incomplete relief of pain, infection, infection requiring amputation, wound healing complications, need for additional surgery, iatrogenic injury to bone/nerve/tendon/vessel, decreased ambulatory status. No promises or guarantees were made. Through shared decision making model, the patient and his both agree that acute tibial talocalcaneal arthrodesis is the most appropriate surgical plan. Surgical plan: Removal right lower extremity external fixator with tendo Achilles lengthening and tibiotalocalcaneal arthrodesis
[2024-03-25] MEDS ORDERED: ePHEDrine sulfate 50 MG/ML AMP ONE (12:08)
[2024-03-25] MEDS ORDERED: VASOPRESSIN 20 UNIT/ML VIAL ONE (12:20)
--- NOTE | 2024-03-25 13:13 | Hospitalist Progress Note ---
Date of Service March 25, 2024 Assessment & Plan (1) Chronic ulcer of left foot with necrosis of bone: Plan: Patient w/ hx of osteomyelitis on chronic abx therapy of [facility] outpatient. CT right foot: extensive, diffuse cellulitis w/ most prominent induration medical to the distal tibia. No organized or drainable collection. scattered gas likely is related to open nature of the fracture and operative manipulation. CT left foot: induration and probable disorganized abscess noted plantar lateral to the distal 5th met[address]ars[address]. no ct evidence osteomyelitis MRI left foot: amputated left first and 2nd toes. bone resorption of 5th metatarsal head w/ soft tissue mass at plantar aspect. arthritic changes at intertarsal and tarsometatarsal articulations. atrophic fatty infiltration of foot musculature. subcutaneous edema of foot. Podiatry consulted, Dr. Mccray - s/p left transmetatarsal amputation on 03/18. - surgical shoe for ambulation OR culture: No organisms. Final. Bone path: soft tissues without significant inflammation. Left foot wound culture: staph pseudintermediu with multiple resistances. Consult infectious disease given complexity of patient's wounds- completed 7 day course of daptomycin. Pt with poor mobility currently and plan to return to OR, will plan to keep barrett inplace for now. Added IS. PT/OT following, recommending rehab. - CM following, looking for bed AM CBC and BMP. (2) Open fracture dislocation of ankle: Plan: Sustained the open fracture dislocation taken S/p Application external fixator right foot at washout with Dr. Chepe Daly 03/13 - NWB right foot - Eliquis for DVT proh - f/u with Dr. Shin for definitive treatment Dr. Shin consulted - patient extremely high risk for infection and possible need for amputation - plan for surgical intervention 03/25 Orthopedics have deemed patient medically stable from their standpoint for d ischarge, patient transferred to hospitalist service for further care on 03/16 (3) Diabetic nephropathy associated with type 2 diabetes mellitus: Plan: this patient is on many medications including insulin, Mounjaro, and metformin Patient w/ recurrent hypoglycemic episodes while inpatient. Pharmacy was consulted to aid in glycemic management (4) CAD (coronary artery disease): Plan: history of cardiac arrest, non occlusive CAD, previously preserved LV function. EF >70% on 11/2021 echo Typically on aspirin and atorvastatin Patient takes Lasix 20 mg a day (5) Toxic encephalopathy: (6) Acute postoperative pulmonary insufficiency: (7) Hypotension: (8) Acute metabolic encephalopathy: (9) Morbid obesity with BMI of 50.0-59.9, adult: Plan Chronic stable medical conditions: * BPH continue tamsulosin * christina will continue NIPPV * CKD - Cr stable, encourage PO hydration DVT prophylaxis: eliquis held with OR will resume when cleared by ortho Disposition: continued inpatient stay, OR today then will need PT/OT evals LM for 03/22, she was updated extensively by Dr. Shin Admission and Anticipated Discharge Date Admission Date: March 13, 2024 Supervising Physician Co-Signing Physician Notes Attending Attestation & Progress Note: Pt seen/examined, chart reviewed, care plan d/w ROXY Cortez. I agree w/ the guevara components of her documentation with the following additions - * acute toxic encephalopathy * acute metabolic encephalopathy * acute post-op pulmonary insufficiency * hypotension * morbid obesity BMI 55 Ms Cortez was contacted by the PACU nursing staff ~1800 that despite suppor tive care patient continued to have the following issues post-op -- hypotension, altered mental status, tachycardia, and hypoxia requiring supplemental O2. Ms Cortez & myself went to the PACU to assess the patient. Upon arrival he was essentially unarousable to his name being called. During my exam he did not wake up. He was snoring, tachypneic. STAT ABG obtained - pH 7.27, pCO2 57, pO2 79. Per records it appears the pt's baseline pCO2 is mid40s. Pt's /daughter had arrived to bedside; they report he is supposed to be on CPAP for CHRISTINA but was noncompliant with such at home. I spoke with anesthesia and during the case patient had had intra-op hypotension requiring IV fluids, phenylephrine, and albumin IV. He also had gotten a copious amount of IV fentanyl. Exam - gen - obese, snoring, tachypneic, largely unresponsive eyes - pinpoint pupils b/l, reactive neck - no obvious JVD mouth - MM dry heart - tachy, irregular, s1 s2 lungs - decreased BS on left, course BS b/l with wheezes, expiratory phase restricted; snoring, tachypneic abd - soft NT ND BS+ ext - right leg in large splint, left leg dressings in place, pulses (felt through dressings) at least 1+ b/l STAT EKG obtained - very poor quality with severe artifact - but no obvious ST changes; sinus tach STAT CXR ordered/pending STAT CBC, type/cross ordered due to report of 150cc blood loss Following results of ABG patient placed on BIPAP and settings titrated for effective tidal volumes. Duoneb x 1 given for wheezing. In light of ongoing altered MS and large amount of intra-op narcotic given (as evidenced by pinpoint pupils) anesthesia administered 0.4mg of narcan IV. Plan - * admit to PCU (had been med/surg status) * keep BIPAP in place for remainder of the night; plan repeat VBG in 1 hour post-initation of BIPAP; then VBG in am * check lactate w/ next blood draw * may need PRBCs if Hb<8 and hypotension persists * f/u on cxr results Serial exams to assess mental status; suspect hypercapnia, narcotics, anesthesia, etc all to blame for altered mental status. If mental status does not improve with addressing the above then CT head. Daughter/ updated by myself & Ms Cortez. Total critical care time - 60 minutes Johann Leiva MD Subjective Patient seen prior to OR, he is NPO. Has no acute complaints, looking forward to having this treated. moving bowels pain is well controlled Review of Systems Review of Systems: All systems reviewed & are unremarkable except as noted in Subjective Physical Exam Physical Exam: General: NAD, VS as above, lying in bed Resp: normal respiratory effort, lungs clear to auscultation CV: RRR, no murmur, Abd: normal bowel sounds, non tender, soft Extremities:left foot s/p toe amputation, dressing not removed, c/d/i. Right foot external fixation device in place. Neuro: A&O x3, Results & Data Results & Data Vital Signs (Past 12 Hours) Vital Signs Temp Pulse Resp BP Pulse Ox O2 Del Method 03/25/24 11:08 77 17 95 Room Air 03/25/24 10:31 97.7 F 78 18 132/75 95 Room Air 03/25/24 07:56 97.9 F 93 H 20 121/85 96 Room Air Laboratory Results cbc and chemistry reviewed PG Care Time/CCT Total # of Minutes Spent Total Time Spent with Patient: Total time spent is greater than 50% in coordination of care (as documented) at patient's floor/unit and/or counseling patient: Critical Care Time: Yes Total Critical Care Time: 60 Coding Level of Care Code None Diagnoses Chronic ulcer of left foot with necrosis of bone L97.524 Type III open fracture dislocation of right ankle, initial encounter S82.891C Encounter type: initial encounter Laterality: right Open fracture type: open type III Diabetic nephropathy associated with type 2 diabetes mellitus E11.21 CAD (coronary artery disease) I25.10 Toxic encephalopathy G92.9 Acute postoperative pulmonary insufficiency J95.2 Hypotension I95.9 Acute metabolic encephalopathy G93.41 Morbid obesity with BMI of 50.0-59.9, adult E66.01; Z68.43 Additional Codes Critical Care Time - Critical Care Time: Yes ([id number]) (2) Open fracture dislocation of ankle Encounter type: initial encounter Laterality: right Open fracture type: open type III Qualified Code(s): S82.891C - Other fracture of right lower leg, initial encounter for open fracture type IIIA, IIIB, or IIIC
[2024-03-25] MEDS ORDERED: PHENYLEPHRINE 100MCG/ML 5ML SYR ONE (13:58)
[2024-03-25] MEDS ORDERED: ESMOLOL HCL INJ 10 MG/ML 10ML VIAL IV ONE (14:19)
[2024-03-25] MEDS ORDERED: HYDROmorphone INJ 2 MG/ML SYR/VIAL ONE (14:23)
--- NOTE | 2024-03-25 14:35 | Pharmacy Report ---
Pharmacy Glycemic Short Note 2 - Date of Service March 25, 2024 - Glycemic Short BSG Results (Last 24 hours): 03/24/24 03/24/24 03/25/24 16:44 20:46 07:21 Glucose 135 H POC Glucose 90 138 H 03/25/24 03/25/24 03/25/24 07:53 10:32 12:45 Glucose POC Glucose 138 H 158 H 194 H 03/25/24 14:08 Glucose POC Glucose 202 H OUTPATIENT ANTIDIABETIC REGIMEN: * Lantus 70 units SC AM * Novolog SSI * Jardiance 25 mg PO AM * Metformin 500 mg PO BID * Mounjaro 2.5mg SC weekly * HbA1c: 6.0% (03/17/24) ASSESSMENT: 03/25: * Patient received total of 45 units of insulin yesterday, of which 25 units were basal insulin * Fasting BSG 135 mg/dL - NPO this AM for procedure, reduced to 10 units basal, will provide scale for basal at HS once surgery complete 03/23: * Enrique received 40 units of insulin yesterday, 20 of both basal and bolus. BSGs were: [phone] mg/dL. * Stressors remain stable with dapto for osteomyelitis and POD #5 from TMA. Given postoperative status, want to ensure BSGs are < 180 mg/dL to minimize postop infection risk. * Fasting BSG increased to 161 mg/dL this AM. Feel comfortable increasing basal by ~20% this AM. Patient did have hypoglycemia previously during this admission but was with minimal PO intake and 50 units of basal insulin. * Given evening trend of postprandial hyperglycemia, will tighten carb ratio very slightly this AM. 03/22: * A total of 29 units of insulin were given yesterday (20 units were basal). * Fasting BSG was within goal range this morning so Lantus will be continued as ordered. * Bolus insulin parameters were tightened on 03/20 and BSGs have mostly been within the goal range since then (ranged from 115-146mg/dL). Will continue with this bolus insulin parameters. * Of note: patient received 2.5mg tirzepatide on the evening of 03/19. (his own medication) * POD#4 TMA and patient continues on daptomycin 03/19: * BSGs have been on the lower end the last few days. BSG on 03/17 and into 03/18 were all below goal range so basal insulin was held. * He only required 1 unit of insulin total yesterday and it was bolus (BSGs ranged from 84-155 yesterday) * Patient was reported to have eaten all of his breakfast today and his BSG ritesh to 276mg/dL at lunch today. Lantus 20 units was given and will be continued daily. * Bolus insulin parameters to be continued as is for now. * POD #1 and pt continues on daptomycin for osteo. 03/17: * Mr Alvarado is a 68yo diabetic M admitted with R open ankle fx. * Pt is scheduled to go to the OR tomorrow for L foot amputation, and will be NPO p midnight. * Pt had an episode of symptomatic hypoglycemia (BSG 46) yesterday evening. Pharmacy glycemic consult was then placed. * Lantus dose was reduced significantly this morning. Carb ratio was removed from Novolog. Will hold metformin after today's dose in preparation for OR tomorrow. * Pharmacy will continue to follow during admission and adjust regimen as indicated. PLAN FOR INPATIENT GLYCEMIC CONTROL: * Hold outpatient oral diabetes medications * Basal insulin * Lantus 10 units x 1 (NPO this AM) * Lantus 0-10 units HS * Bolus insulin * NovoLog per scale ACHS or Q6hrs while NPO * Goal Range: Low 110 mg/dL - High 140 mg/dL * Correction Factor: 25 mg/dL/unit * Nutritional / Prandial insulin per carb ratio: 1 unit/8 grams CHO
[2024-03-25] MEDS ORDERED: SUGAMMADEX SODIUM 200 MG/2 ML VIAL IV ONE (15:08)
[2024-03-25] MEDS ORDERED: ONDANSETRON INJ 2 MG/ML 2 ML VIAL ONE (15:28)
--- NOTE | 2024-03-25 15:47 | Fluoroscopy Report ---
FL foot RT 3V CLINICAL HISTORY: REMOVAL OF EXTERNAL FIXATOR-DOUBLE HIND FOOT FUSION COMPARISON STUDY: Right ankle CT March 14, 2024. Right ankle radiographs March 17, 2024. FLUOROSCOPY TIME: 4 minutes and 42 seconds. Ka,r: 7.8023 mGy FLUOROSCOPIC IMAGES: 37 FINDINGS: Fluoroscopy was provided during removal of the external fixator and right ankle and subtala r joint fusion. Distal right fibular and medial malleolar fractures are again noted. IMPRESSION: Fluoroscopy provided during removal of the external fixator and right ankle and subtalar joint fusion. ACT 112: Negative or not required by law. Electronically signed by: Guillaume Sales M.D. 03/25/2024 3:46 PM
--- NOTE | 2024-03-25 16:14 | Post Operative Brief Note ---
Immediate Post Op Note Date of Surgery March 25, 2024 Pre & Post Diagnosis Operation Date: 03/25/24 11:00 <No data on this case meets the specified criteria> Pre-op diagnosis: (1) Open fracture dislocation of right ankle: (2) Neuropathy: (3) Diabetic neuropathy: (4) Acute osteomyelitis of left foot: (5) Chronic ulcer of left foot with necrosis of bone: (6) Cellulitis of foot, right: (7) Chronic constipation: (8) Chronic venous insufficiency: (9) Diabetic nephropathy associated with type 2 diabetes mellitus: (10) CKD stage 3 due to type 2 diabetes mellitus: (11) PAD (peripheral artery disease): (12) CAD (coronary artery disease): Postop diagnosis: (1) Open fracture dislocation of right ankle: (2) Neuropathy: (3) Diabetic neuropathy: (4) Acute osteomyelitis of left foot: (5) Chronic ulcer of left foot with necrosis of bone: (6) Cellulitis of foot, right: (7) Chronic constipation: (8) Chronic venous insufficiency: (9) Diabetic nephropathy associated with type 2 diabetes mellitus: (10) CKD stage 3 due to type 2 diabetes mellitus: (11) PAD (peripheral artery disease): (12) CAD (coronary artery disease): I identified the patient and participated in the time-out.: Yes Procedure Operation Date: 03/25/24 11:00 <No data on this case meets the specified criteria> 1. right Tibiotalar joint arthrodesis 2. right Subtalar joint arthrodesis 3. Physician directed fluoroscopy greater than 1 hour 4. Application below-knee splint, right Surgeon Dieter Shin DO Tsa Screener None Estimated Blood Loss 150 Findings Consistent with Post-Op Diagnosis Fluids see anesthesia record Drains Sam Catheter Anesthesia Type General Complications none immediately apparent Disposition Disposition: Recovery Room Overlapping Procedure I was present for: the critical portions of procedure. ( the entire surgery)
--- NOTE | 2024-03-25 16:17 | Podiatry Progress Note ---
Date of Service March 25, 2024 Assessment & Plan (1) Open fracture dislocation of ankle: (2) Diabetic neuropathy: (3) Diabetic foot ulcer: (4) Status post partial amputation of foot: (5) Acute osteomyelitis of left foot: (6) Chronic ulcer of left foot with necrosis of bone: Plan Patient was examined and evaluated. - Should have surgical shoe/boot for any ambulation, to avoid increasing fall risk. - Sutures are intact to the foot. Pathology/C&S pending. Surgically, clean margins believe to be obtained. - Can likely continue oral abx empircally for 2 weeks. - No further left foot intervention planned. With him anticipating the definitive right ankle surgical correction in the next few days, I will continue to monitor every few days. - Left foot dressing can be changed by nursing or physicians as needed for further assessment. Admission and Anticipated Discharge Date Admission Date: March 13, 2024 Subjective Patient seen at bedside, in the Preop area, prior to his definitive right ankle fusion. States his left foot and ankle are doing well without concern. He is still plan being discharged to rehab after this procedure. Review of Systems Constitutional: + fever; no chills and no fatigue Eyes: no problem reported Ear, Nose, Mouth, Throat: no problem reported Respiratory: no problem reported Cardiovascular: + edema; no problem reported Gastrointestinal: + nausea and + vomiting; no problem repo rted Genitourinary: no problem reported Musculoskeletal: no problem reported Integumentary: + skin ulcer, + wounds and + erythema Neurologic: + loss of sensation, + numbness and + pa resthesia; no generalized weakness Psychiatric: no problem reported Physical Exam Physical Exam: Right lower extremity external fixator in place with post-surgical dressing intact, left intact. Sutures aree intact to the left foot with no early dehiscence noted. There is some maceration to the incision, consistent with the Xeroform nonadherent dressing noted. No purulence or drainage noted. No active bleeding.No ascending cellulitis. Constitutional: WD/WN, vitals as above + ill appearing, + morbidly obese and comfortable Eyes: PERRL, conjunctivae normal, anicteric sclerae ENMT: external ear and nose normal, oropharynx normal Neck: trachea midline, no thyromegaly normal visual inspection Respiratory: normal respiratory effort; no respiratory distress Cardiovascular: Rate/Rhythm: regular rate and regular rhythm Vessels: + posterior tibial pulses abnormal and + dorsalis pedis pulses abnormal Extremities: normal capillary refill Chest (Breasts): Chest: normal inspection of chest Gastrointestinal (Abdomen): Inspection/Auscultation: abdomen normal to inspection Percussion/Palpation: + abdomen tender and abdomen soft Musculoskeletal: no cyanosis or clubbing, extremities motor strength 5/5 Head/Neck/Chest: normocephalic and head atraumatic Extremities: extremities normal to inspection, + lower extremity abnormal to inspection Bilateral (R Ex- fix intact. Left toe amputations to 1st, 2nd. ) and + limited ROM of lower extremity Skin: no rashes, warm and dry + ulcer, + wound, + erythema, + fluctulance, + fistulous tract and + nails dystrophic Neurologic: awake; + abnormal touch/pain/proprioception, + abnormal sensation to monofilament and no focal motor deficits Psychiatric: A+Ox3, euthymic affect Results & Data Results & Data Vital Signs (Past 12 Hours) Vital Signs Temp Pulse Resp BP Pulse Ox O2 Del Method 03/25/24 11:08 77 17 95 Room Air 03/25/24 10:31 36.5 C 78 18 132/75 95 Room Air 03/25/24 07:56 36.6 C 93 H 20 121/85 96 Room Air (1) Open fracture dislocation of ankle Encounter type: initial encounter Laterality: right Open fracture type: open type III Qualified Code(s): S82.891C - Other fracture of right lower leg, initial encounter for open fracture type IIIA, IIIB, or IIIC (2) Diabetic neuropathy Diabetes mellitus complication detail: diabetic polyneuropathy Diabetes mellitus type: type 2 Qualified Code(s): E11.42 - Type 2 diabetes mellitus with diabetic polyneuropathy (3) Diabetic foot ulcer Diabetes mellitus type: type 2 Diabetic foot ulcer location: midfoot Laterality: left Non-pressure ulcer stage: with necrosis of bone Qualified Code(s): E11.621 - Type 2 diabetes mellitus with foot ulcer; L97.424 - Non- pressure chronic ulcer of left heel and midfoot with necrosis of bone (4) Status post partial amputation of foot Laterality: left Qualified Code(s): Z89.432 - Acquired absence of left foot
--- NOTE | 2024-03-25 16:39 | Operative Report ---
Post Operative Report Pre & Post Diagnosis Operation Date: 03/25/24 11:00 Pre-Op Diagnosis: (1) Open fracture dislocation of right ankle (2) Neuropathy (3) Diabetic neuropathy (4) Acute osteomyelitis of left foot (5) Chronic ulcer of left foot with necrosis of bone (6) Cellulitis of foot, right Post-Op Diagnosis: (1) Open fracture dislocation of right ankle (2) Neuropathy (3) Diabetic neuropathy (4) Acute osteomyelitis of left foot (5) Chronic ulcer of left foot with necrosis of bone (6) Cellulitis of foot, right I identified the patient and participated in the time-out.: Yes Procedure Operation Date: 03/25/24 11:00 Actual Procedures p Removal of External Fixator Right Lower Extremity, Right Ankle and Subtalar Joint Fusion, Position Directed Flourscopy, Application of Right Lower Extremity Splint(Right) - Dieter Shin DO 1. Right tibiotalar joint arthrodesis 2. Right subtalar joint arthrodesis 3. Removal of right lower extremity external fixator 4. Physician directed fluoroscopy greater than 1 hour 5. Application of right lower extremity below-knee splint Surgeon Dieter Shin DO Sewing Teacher None Estimated Blood Loss 150 Findings Consistent with Post-Op Diagnosis Fluids see anesthesia record Specimens none Anesthesia Type General Complications none immediately apparent Disposition Disposition: Recovery Room Indications Enrique is a 68-year-old gentleman who sustained a open fracture/dislocation of his right ankle. Initially, he received appropriate antibiotics, tetanus update, and was taken to the operating room with Dr. Daly for irrigation and debridement with closed reduction and application of external fixator. At this time, the patient is resting comfortably in bed in his external fixator. He remains in the hospital due to difficulty with finding placement after left TMA by podiatry. With regards to the patient's right lower extremity, I did take off his dressings and examine his limb. He does not demonstrate any signs of active infection at his open wound or at his pin sites. his swelling has improvedPlan With regards to an operative plan for the patient's right ankle, I believe that we have 3 options. Option 1 would be for open reduction internal fixation of his ankle fracture with extensive syndesmotic fixation. Option 2 would be for acute tibial talocalcaneal arthrodesis. Option 3 would be for definitive management in his current external fixator No matter which option of the above that we choose, I do believe the patient is at an extremely high risk for infection, infection requiring additional surgery, or even infection requiring amputation. Due to the patient's high BMI, his advanced age, a primary amputation for this problem or amputation in the future would be a devastating consequence for him and he would likely never walk again. I think the best he could hope for after a below-knee amputation would be to stand/pivot transfer on a prosthesis. I did discuss the patient's case with him and his in great detail. 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 I did explain to the patient and his that I am concerned about his ability to heal wounds about his ankle from ORIF of his fracture. I am also concerned about the deformity, pain, and potential for skin ulceration if we were to manage him definitively an external fixator. I do think that the patient's high BMI, neuropathy, and soft tissue injury to the right lower extremity does suggest that he meets indications for acute tibial talocalcaneal arthrodesis, I do also think that TTC nail is the best chance at having just 1 surgery, because I am quite concerned about placing an incision on the medial side near his open fracture wound and the chance of him getting an infection. I did explain to him and his in very plain terms that regardless of which surgical option we choose he is at a very high risk from the surgery of infection, nonunion, malunion, poor wound healing. With regards to our approach at joint preparation, ideally, I would perform an open joint prep, but this would be a large incision on the side of the ankle with a fibular osteotomy and I do believe that this is a significant risk to the patient's soft tissues. For the reasons we described above, I do not believe this is the best approach. I do think that a minimally invasive preparatory approach to the ankle is more reasonable for this patient considering his current soft tissue status. I did explain that with minimally invasive preparation, there is a higher risk of nonunion, but we will plan to do everything possible to improve the chances of using such as using augment and supplemental fixation across the ankle and subtalar joints. The patient and his understand that this is a very risky surgery. He understands the risks include but are not limited to: Loss of life/limb, DVT, incomplete relief of pain, infection, infection requiring amputation, wound healing complications, need for additional surgery, iatrogenic injury to bone/nerve/tendon/vessel, decreased ambulatory status. No promises or guarantees were made. Through shared decision making model, the patient and his both agree that acute tibial talocalcaneal arthrodesis is the most appropriate surgical plan. Surgical plan: Removal right lower extremity external fixator with tendo Achilles lengthening and tibiotalocalcaneal arthrodesis Description of Procedure after informed consent was obtained, the patient was correctly identified in the preoperative holding suite, the operative site was marked with the surgeon's initials, the date of surgery, and the word yes. The patient was then taken to the operative suite. The department of anesthesia administered General Anesthesia. The patient was transferred from the [facility] to the operative table. All bony prominences were well-padded. Briefing and timeout was performed. All implants were available and sterile at the time. BRIEFING AND DEBRIEFING: Pre and post operative briefing and debriefing was performed. Introductions were made, goals of the procedure were discussed, questions and concerns were addressed. The operative site markings were identified and appropriate. A time [id number] was performed, the patient's correct identity was confirmed and the correct operative sites were identified. The patients pre-operative antibiotic dosing and administration was confirmed along with other SCIP measures. The team was polled at the completion of the surgery and all team members were in agreement that the procedure was without complication, the counts are correct, the wound class was identified and suggestions for improvement were shared. patient was transferred in supine fashion from the hospital bed to the operative table. After induction of anesthesia, the right lower extremity was placed on a bone foam ramp, and a bump was placed under the ipsilateral hip. All other bony prominences were well-padded. The patient had a tourniquet pl aced high in his right thigh that was well-padded. We then brought in fluoroscopy to examine the reduction of the ankle mortise as well as the position of anticipated incisions. The external fixator was noted to be holding the ankle in excellent alignment, at this time we did adjust the external fixator such that we had additional distraction and the entire tibiotalar joint was then able to be well-visualized. We realized at this time that we would not use the external fixator for the subtalar joint, but did plan to use it to assist in preparatory work for the tibial talar joint. The right lower extremity was then prepped and draped in standard sterile fashion including the external fixator using the Betadine scrub and paint. The right lower extremity was then elevated for exsanguination, the tourniquet was raised to 300 mmHg and remained elevated for 124 minutes. It was never reinflated. We began by locating an appropriate level of incision using fluoroscopy to access the ankle from an anteromedial portal. A 2 cm incision was made just medial to the tibialis anterior tendon and we dissected bluntly medial to the tendon the lateral to the medial malleolus until we accessed the joint. At this time, we began our joint prep work. We used curved osteotomes, curettes, To provisionally prepped the joint removing all of the cartilage fragments. Next, the Gasngo conical bur was usedto remove all remaining cartilage from the joint. We would use the bur to make troughs within both the distal tibia and the proximal talus to exposed the subchondral bone. We then would remove the external fixator sterilely, use Betadine paint again on the pinholes and cover them up using fluffs and Ioban. We then used closed maneuvers including traction and external pressure in order to reduce the talus under the tibia such that it was reduced within the ankle mortise on the AP view and on the lateral view, the lateral process of the talus was in line with the weightbearing axis of the tibia, and additionally we ensuredthat the ankle was in neutral dorsiflexion. When were satisfied with our reduction, we percutaneously provisionally pinned the tibiotalar joint reduction from proximal to distal in order to hold this in place until the time came for placement of our TTC nail. We then turned our attention towards the subtalar joint. We did make a percutaneous stab incision over the sinus Tarsi measuring approximately 1-1/2 cm in length. We dissected bluntly until we entered the sinus Tarsi using hemostats. position was confirmed using fluoroscopy. We then repeated the same joint preparatory steps as above for the subtalar joint, first using osteotomes, followed by curettes to remove all cartilage. We would remove all cartilage particles using pituitary rongeur's. Next, we used the Ajit MIS conical bur in order to remove any remaining cartilage as well as make troughs along the posterior facet. We additionally prepped the middle facet of the subtalar joint using the same technique. We checked multiple fluoroscopic views to ensure an appropriate reduction of the subtalar joint prior to beginning the placement of our hindfoot nail. Additionally, before placing our nail and obtaining compression, we used fluoroscopy to locate both the tibiotalar and subtalar joints and we placed 3 cc of Ajit augment VEGF graft into each of the joints In order to help facilitate union. We began by using the starting pin to locate an appropriate start point and trajectory for our opening reamer. This was advanced from the calcaneus into th e talus and into the tibia. We incised through skin on the plantar aspect of the foot and next, over this wire we used the opening 12.5 mm reamer. the opening wire was then removed and the ball-tipped guidewire was advanced from distal to proximal into the tibial shaft. Over the ball-tipped guidewire, we would sequentially reamed up to a 12.5 mm reamer as the largest diameter nail that we had available to us was an 11.5 mm nail. We selected the 11.5 x 200 mm Henryetta valor hindfoot nail. We attached this to the insertion handle and impacted this over the ball-tipped guidewire confirming appropriate trajectory and placement on AP and lateral fluoroscopic views. Next, we turned our attention towards placing interlocking screws. First, we used the insertion handle guide to place a single 5 mm x 35 mm valor screw into the dynamic portion of the oblong hole proximally. Next, we used the guide to place to place an additional dynamic screw from lateral to medial in the calcaneus. At this point, we would compress using the external compression device until no compression we were unable to obtain any more compression. We locked this compression in place using the guide to place an axial screw through the calcaneus and through the nail. This would proved to be a 5 x 80 mm valor screw. Finally, we placed 1 additional proximal interlocking screw using the guide into the static hole proximally. We checked fluoroscopic views and at this time did believe that we had enough real estate lateral to the nail to place an additional hindfoot screw. We used the wire to make a start point in the plantar aspect of the calcaneus and advance a screw lateral to the nail such that it crossed the subtalar joint as well as the tibiotalar joint and exited the anterior tibia. We measured this to be a 120 mm screw. We drilled over this wire and placed a 7.0 x 120 mm fully threaded 7.0 beam from the Scorista[employer]ru set in order to increase the amount of fixation in the hindfoot and supplement the fixation that are nail provided. At this point, we checked final fluoroscopic views to ensure safe and stable hardware positioning. We then closed the percutaneous wounds with 3-0 nylon in an inverted mattress fashion. We closed the anterior joint capsule of the ankle and the lateral joint capsule of the subtalar joint using 3-0 Monocryl using a muwkcc-iz-lonwl stitch and then the skin was closed using a 3-0 nylon in an inverted mattress fashion. The leg was then cleansed, quarter inch brown Steri- Strips were placed over the wounds in between all sutures, all wounds were then covered with Betadine soaked Adaptic, sterile 4 x 4 fluffs, sterile Webril. next, a well-padded below-knee splint was then placed. The patient tolerated this procedure well and was transferred to the PACU in stable condition. Prior to transportation to PACU, all counts were correct and a briefing was performed at the end of the case. Physician-directed fluoroscopy for Greater than one hour was performed by myself to verify fracture alignment and the safe placement of all internal fixation. The final images saved to PACs showed views demonstrating satisfactory alignment of the fracture and stable internal fixation. Implant verification was performed by myself by reading and confirming the implant information on the packaging with the team before the sterile implants were opened. I was present for the entire procedure. Plan: Weight bearing status: nonweightbearing right lower extremity Wound care: keep splint clean and dry Range of motion: okay of knee VTE Prophylaxis: okay to resume 03/26/2024 Antibiotics: perioperative Ancef and patient on hemgyi-ceb-xibwm daptomycin Pain Control: Multimodal avoiding NSAIDs Discharge Plan: pending placement Follow Up: patient will follow-up with myself in 2 weeks for wound check implants: 11.5 x 200 mm Ajit valor nail 2 x 5 x 35 mm valor screw 1 x 5 x 40 mm valor screw 1 x 5 x 80 mm valor screw 1 x 7.0 x 120 mm fully threaded beam 6 cc augment I attest to the content of the Intraoperative Record and any orders documented therein. Any exceptions are noted below.
[2024-03-25] MEDS: PHENYLEPHRINE 100MCG/ML 5ML SYR IV PRN (16:52)
[2024-03-25] MEDS: PHENYLEPHRINE 100MCG/ML 5ML SYR ONE (16:54)
[2024-03-25] MEDS ORDERED: ALBUMIN HUMAN 5% 12.5 GM/250 ML VIAL IV ONE (17:43)
[2024-03-25] MEDS: ALBUMIN 5% 250 ML IV ONE (17:47)
[2024-03-25] MEDS: ALBUT/IPRATROP 3MG/0.5MG NEB 3 ML VIAL ONE (18:29)
[2024-03-25 18:36] LABS: Hematocrit (blood only) 26.2 % (42.0-52.0); Hemoglobin 8.1 g/dl (14.0-18.0); Mean Corpuscular Hemoglobin 26.8 pg (25.0-34.0); Mean Corpuscular Hgb Conc 30.9 g/dL (32.0-36.0); Mean Corpuscular Volume 86.8 fL (80.0-100.0); Mean Platelet Volume 8.2 fL (9.4-12.4); Platelet Count 210 K/uL (130-400); RDW Coefficient of Variation 14.4 % (11.5-14.5); RDW Standard Deviation 45.3 fL (36.4-46.3); Red Blood Count 3.02 M/uL (4.70-6.10); White Blood Count 8.14 K/ul (4.8-10.8)
[2024-03-25] MEDS: NALOXONE HCL 0.4 MG/1 ML VIAL/CARP IV STA (18:37)
[2024-03-25 19:15] LABS: iSTAT Arterial Blood Gas HCO3 26 meg/L (19-24); iSTAT Arterial Blood Gas pCO2 57 mmHg (35-46); iSTAT Arterial Blood Gas pH 7.27 (7.35-7.45); iSTAT Arterial Blood Gas pO2 79 mmHg (80-95); iSTAT Carbon Dioxide 28 mmol/L (24-31); iSTAT Hematocrit 25 % (42-52); iSTAT Hemoglobin 8.5 g/dl (14.0-18.0); iSTAT Potassium 4.1 mmol/L (3.3-5.0); iSTAT Sample Type Arterial; iSTAT Sodium 140 mmol/L (135-144)
--- NOTE | 2024-03-25 19:55 | XRay Report ---
EXAM: XR chest 1V portable CLINICAL HISTORY: LOW O2 POST OP HKS/CLW TECHNIQUE: X-ray chest was performed in 1 view: AP projection. COMPARISON: 03/13/2024 FINDINGS: Poor inspiratory effort noted. Borderline cardiomegaly. Silhouette the cardiac apex, part of the left hemidiaphragm, and costophrenic angle with haziness. Prominent bilateral lay right more than left with increased bronchovascular markings. Possible right para cardiac infiltrates Calcification of the aortic arch Spurs line the margins of the vertebral bodies. IMPRESSION: 1. Findings could represent possible left-sided mild pleural effusion with congestive changes however the possibility of infection cannot be entirely excluded advised follow-up?interval new finding. 2. Possible right para cardiac infiltrates..new finding. 3. Advised CT or follow-up for further evalution. Electronically signed by Kevin Ochoa 03-25-2024 7:54 PM
[2024-03-25] MEDS: NALOXONE HCL 0.4 MG/1 ML VIAL/CARP ONE (20:24)
[2024-03-25 20:31] LABS: Base Excess VBG -0.3 mEq/L; HCO3 VBG 27 mmol/L; Oxygen Saturation VBG 82.8 %; PCO2 VBG 55 mmHg (38-50); PO2 VBG 51 mmHg
--- NOTE | 2024-03-25 22:23 | Anesthesiology Progress Note ---
Date of Service March 25, 2024 Anesthesia Post Procedure Vital Signs Vital Signs: Temp Pulse Pulse Pulse Resp BP BP 03/25/24 20:45 16 111/64 03/25/24 20:30 36.3 C L 113 H 16 111/59 L 03/25/24 20:21 36.2 C L 113 H 16 03/25/24 20:20 03/25/24 20:14 113 H 03/25/24 19:25 112 H 15 113/72 03/25/24 18:55 112 H 18 134/78 03/25/24 18:45 36.4 C L 112 H 19 122/77 03/25/24 18:35 111 H 19 110/68 03/25/24 18:31 112 H 22 03/25/24 18:29 17 03/25/24 18:25 112 H 17 120/68 03/25/24 18:15 109 H 17 120/68 03/25/24 18:05 109 H 18 116/59 L 03/25/24 17:55 109 H 15 107/57 L 03/25/24 17:45 109 H 16 88/58 L 03/25/24 17:35 112 H 19 85/53 L 03/25/24 17:25 112 H 17 91/55 L 03/25/24 17:15 111 H 17 92/57 L 03/25/24 17:05 109 H 17 116/62 03/25/24 16:55 109 H 17 98/61 L 03/25/24 16:45 99 H 17 102/56 L 03/25/24 16:35 102 H 16 102/56 L 03/25/24 16:25 104 H 17 95/67 L 03/25/24 16:15 103 H 17 84/54 L 03/25/24 16:06 36.2 C L 107 H 17 103/62 03/25/24 11:08 77 17 03/25/24 10:31 36.5 C 78 18 132/75 03/25/24 07:56 36.6 C 93 H 20 121/85 Pulse Ox O2 Del Method O2 Flow Rate FiO2 03/25/24 20:45 98 03/25/24 20:30 98 03/25/24 20:21 99 03/25/24 20:20 BiPAP 40 03/25/24 20:14 03/25/24 19:25 98 BiPAP 40 03/25/24 18:55 97 BiPAP 03/25/24 18:45 100 BiPAP 03/25/24 18:35 97 BiPAP 03/25/24 18:31 97 40 03/25/24 18:29 96 BiPAP 40 03/25/24 18:25 100 BiPAP 03/25/24 18:15 94 Nasal Cannula 5 03/25/24 18:05 96 Nasal Cannula 5 03/25/24 17:55 97 Nasal Cannula 5 03/25/24 17:45 95 Nasal Cannula 5 03/25/24 17:35 96 Nasal Cannula 5 03/25/24 17:25 98 Nasal Cannula 5 03/25/24 17:15 97 Nasal Cannula 5 03/25/24 17:05 98 Non-rebreather 10 03/25/24 16:55 99 Non-rebreather 10 03/25/24 16:45 94 Nasal Cannula 4 03/25/24 16:35 94 Nasal Cannula 4 03/25/24 16:25 95 Oxymask 10 03/25/24 16:15 93 Oxymask 10 03/25/24 16:06 94 Oxymask 5 03/25/24 11:08 95 Room Air 03/25/24 10:31 95 Room Air 03/25/24 07:56 96 Room Air Pain Intensity Right Leg: Pain Intensity: 7 Transfer of Care Handoff Completed per policy Notes Mental Status: alert / awake / arousable and participated in evaluation Patient Amnestic to Procedure: Yes Nausea / Vomiting: adequately controlled Pain: adequately controlled Airway Patency, RR, SpO2: see Notes below BP & HR: see Notes below Hydration State: stable & adequate Anesthetic Complications: no major complications apparent Notes: Pt required bp support in pacu with crystalloid and colloid fluids along with several doses of phenylephrine. Pt also somnolent but arousable. He was given several doses of narcotic during procedure and i felt it was necessary to give a small amount of narcan (40mcg) to try and increase pt awareness and respiratory status. Pt had increased oxygen requirement and was kept on facemask oxygen. Hospitalist physician made aware and he evaluated pt. Pt placed on bipap and plan to transfer to pcu. Pt tachycardia treated with fluids although cbc collected to ensure anemia wasnt driving factor. blood loss during procedure was less than 200ml.
[2024-03-26 04:50] LABS: Base Excess VBG 2.4 mEq/L; HCO3 VBG 31 mmol/L; Oxygen Saturation VBG < 60.0 %; PCO2 VBG 64 mmHg (38-50); PO2 VBG 21 mmHg; pH VBG 7.29 (7.36-7.41)
[2024-03-26 05:03] LABS: Hematocrit (blood only) 26.2 % (42.0-52.0); Hemoglobin 8.1 g/dl (14.0-18.0); Mean Corpuscular Hgb Conc 30.9 g/dL (32.0-36.0); Mean Corpuscular Volume 87.3 fL (80.0-100.0); Mean Platelet Volume 8.5 fL (9.4-12.4); Platelet Count 221 K/uL (130-400); RDW Coefficient of Variation 14.6 % (11.5-14.5); RDW Standard Deviation 45.9 fL (36.4-46.3); White Blood Count 8.35 K/ul (4.8-10.8)
[2024-03-26 05:19] LABS: BUN Creatinine Ratio 17.7 (10-20); Calcium 8.5 mg/dl (8.6-10.3); Creatinine Clr Calc Pharmacy 55.8 ml/min; Magnesium 2.1 mg/dl (1.7-2.4); Phosphorus 5.4 mg/dl (2.5-4.9); Potassium 5.1 mmol/L (3.5-5.1)
[2024-03-26] MEDS: LANTUS PER UNIT CHARGE SC SCH (09:26)
--- NOTE | 2024-03-26 09:32 | Orthopedic Progress Note ---
Date of Service March 26, 2024 Assessment & Plan (1) Open fracture dislocation of right ankle: (2) Neuropathy: (3) Diabetic neuropathy: (4) Acute osteomyelitis of left foot: (5) Chronic ulcer of left foot with necrosis of bone: (6) Cellulitis of foot, right: (7) Chronic constipation: (8) Chronic venous insufficiency: (9) Diabetic nephropathy associated with type 2 diabetes mellitus: (10) CKD stage 3 due to type 2 diabetes mellitus: (11) PAD (peripheral artery disease): (12) CAD (coronary artery disease): Plan 68-year-old gentleman postoperative day #1 status post acute TTC fusion for open right ankle fracture/dislocation in neuropathic diabetic with history of chronic ulcers. Overall, patient is doing well. He was transferred to the ICU last night after surgery due to slow wake up from anesthesia. The patient is alert and oriented this morning. He will be nonweightbearing on the right lower extremity. He is pending placement in a nursing facility. Left foot per podiatry Okay for DVT prophylaxis from a orthopedic standpoint IV antibiotics discontinued yesterday Patient will follow-up with myself in 1-2 weeks for wound check. Admission and Anticipated Discharge Date Admission Date: March 13, 2024 Subjective Patient seen and examined postoperative day #1 status post TTC fusion. Patient transferred to the ICU due to slow wake up from anesthesia. Doing well this morning. No pain. Review of Systems Review of Systems: Negative unless otherwise stated above Physical Exam Physical Exam: Right lower extremity splint appropriate. Clean and dry. Resting on pillows. Demonstrates active EHL and FHL function Results & Data Vital Signs (Past 12 Hours) Vital Signs Temp Pulse Pulse Pulse Resp BP BP 03/26/24 07:40 110 H 03/26/24 07:32 37 C 110 H 20 110/55 L 03/26/24 07:30 03/26/24 06:00 37.1 C 112 H 18 115/68 03/26/24 05:14 37.1 C 109 H 21 119/72 03/26/24 04:00 37 C 111 H 18 118/81 03/26/24 03:09 37.1 C 111 H 18 107/97 03/26/24 02:30 37.0 C 113 H 16 114/68 03/26/24 02:00 37 C 112 H 19 112/68 03/26/24 01:00 36.9 C 112 H 19 114/70 03/26/24 00:45 36.8 C 112 H 117/71 03/26/24 00:00 36.7 C 112 H 115/70 03/25/24 23:30 112 H 16 03/25/24 23:00 36.7 C 113 H 15 112/63 03/25/24 22:00 36.5 C 114 H 16 111/69 03/25/24 21:30 36.4 C L 115 H 19 116/65 Pulse Ox O2 Del Method O2 Flow Rate FiO2 03/26/24 07:40 03/26/24 07:32 95 Nasal Cannula 2 03/26/24 07:30 Nasal Cannula 4 03/26/24 06:00 95 03/26/24 05:14 93 Nasal Cannula 4 03/26/24 04:00 03/26/24 03:09 93 03/26/24 02:30 97 03/26/24 02:00 98 03/26/24 01:00 03/26/24 00:45 03/26/24 00:00 03/25/24 23:30 97 40 03/25/24 23:00 97 03/25/24 22:00 99 03/25/24 21:30 Diagnostic Findings Intraoperative images reviewed demonstrate stable TTC fixation with supplemental screw across both tibiotalar and subtalar joints. (3) Diabetic neuropathy Diabetes mellitus complication detail: diabetic polyneuropathy Diabetes mellitus type: type 2 Qualified Code(s): E11.42 - Type 2 diabetes mellitus with diabetic polyneuropathy
[2024-03-26] MEDS: SODIUM CHLORIDE 0.9% 500 ML IV ONE (11:32)
--- NOTE | 2024-03-26 11:42 | Pharmacy Report ---
Pharmacy Glycemic Short Note 2 - Date of Service March 26, 2024 - Glycemic Short BSG Results (Last 24 hours): 03/25/24 03/25/24 03/25/24 12:45 14:08 16:09 Glucose POC Glucose 194 H 202 H 165 H 03/25/24 03/26/24 03/26/24 20:17 04:43 07:18 Glucose 161 H POC Glucose 160 H 166 H 03/26/24 11:37 Glucose POC Glucose 151 H OUTPATIENT ANTIDIABETIC REGIMEN: * Lantus 70 units SC AM * Novolog SSI * Jardiance 25 mg PO AM * Metformin 500 mg PO BID * Mounjaro 2.5mg SC weekly * HbA1c: 6.0% (03/17/24) ASSESSMENT: 03/26: * BSGs largely within goal the last 24h: [phone]/dL Received 15 units of basal and 1 unit of bolus insulin. * POD #1. Diet advanced. * Increase AM Lantus to 15 units given elevated fasting BSG. Continue with HS scale for now until tolerating fully advanced diet. No change to Novolog. 03/25: * Patient received total of 45 units of insulin yesterday, of which 25 units were basal insulin * Fasting BSG 135 mg/dL - NPO this AM for procedure, reduced to 10 units basal, will provide scale for basal at HS once surgery complete 03/23: * Enrique received 40 units of insulin yesterday, 20 of both basal and bolus. BSGs were: [phone] mg/dL. * Stressors remain stable with dapto for osteomyelitis and POD #5 from TMA. Given postoperative status, want to ensure BSGs are < 180 mg/dL to minimize postop infection risk. * Fasting BSG increased to 161 mg/dL this AM. Feel comfortable increasing basal by ~20% this AM. Patient did have hypoglycemia previously during this admission but was with minimal PO intake and 50 units of basal insulin. * Given evening trend of postprandial hyperglycemia, will tighten carb ratio very slightly this AM. 03/22: * A total of 29 units of insulin were given yesterday (20 units were basal). * Fasting BSG was within goal range this morning so Lantus will be continued as ordered. * Bolus insulin parameters were tightened on 03/20 and BSGs have mostly been within the goal range since then (ranged from 115-146mg/dL). Will continue with this bolus insulin parameters. * Of note: patient received 2.5mg tirzepatide on the evening of 03/19. (his own medication) * POD#4 TMA and patient continues on daptomycin 03/19: * BSGs have been on the lower end the last few days. BSG on 03/17 and into 03/18 were all below goal range so basal insulin was held. * He only required 1 unit of insulin total yesterday and it was bolus (BSGs ranged from 84-155 yesterday) * Patient was reported to have eaten all of his breakfast today and his BSG ritesh to 276mg/dL at lunch today. Lantus 20 units was given and will be continued daily. * Bolus insulin parameters to be continued as is for now. * POD #1 and pt continues on daptomycin for osteo. 03/17: * Mr Alvarado is a 68yo diabetic M admitted with R open ankle fx. * Pt is scheduled to go to the OR tomorrow for L foot amputation, and will be NPO p midnight. * Pt had an episode of symptomatic hypoglycemia (BSG 46) yesterday evening. Pharmacy glycemic consult was then placed. * Lantus dose was reduced significantly this morning. Carb ratio was removed from Novolog. Will hold metformin after today's dose in preparation for OR tomorrow. * Pharmacy will continue to follow during admission and adjust regimen as indicated. PLAN FOR INPATIENT GLYCEMIC CONTROL: * Hold outpatient oral diabetes medications * Basal insulin * Lantus 15 units x 1 * Lantus 0-10 units HS * Bolus insulin * NovoLog per scale ACHS or Q6hrs while NPO * Goal Range: Low 110 mg/dL - High 140 mg/dL * Correction Factor: 25 mg/dL/unit * Nutritional / Prandial insulin per carb ratio: 1 unit/8 grams CHO
[2024-03-26] MEDS: APIXABAN 2.5 MG TAB PO ONE (11:48)
--- NOTE | 2024-03-26 12:21 | Hospitalist Progress Note ---
Date of Service March 26, 2024 Assessment & Plan (1) Chronic ulcer of left foot with necrosis of bone: Plan: Patient w/ hx of osteomyelitis on chronic abx therapy of [facility] outpatient. CT right foot: extensive, diffuse cellulitis w/ most prominent induration medical to the distal tibia. No organized or drainable collection. scattered gas likely is related to open nature of the fracture and operative manipulation. CT left foot: induration and probable disorganized abscess noted plantar lateral to the distal 5th met[address]. no ct evidence osteomyelitis MRI left foot: amputated left first and 2nd toes. bone resorption of 5th metatarsal head w/ soft tissue mass at plantar aspect. arthritic changes at intertarsal and tarsometatarsal articulations. atrophic fatty infiltration of foot musculature. subcutaneous edema of foot. Podiatry consulted, Dr. Mccray - s/p left transmetatarsal amputation on 03/18. - surgical shoe for ambulation OR culture: No organisms. Final. Bone path: soft tissues without significant inflammation. Left foot wound culture: staph pseudintermediu with multiple resistances. Consult infectious disease given complexity of patient's wounds- completed 7 day course of daptomycin. PT/OT following, recommending rehab. - CM following, looking for bed - [facility] or friday, applied for auth 03/26 AM CBC and BMP. (2) Acute postoperative pulmonary insufficiency: Plan: Slow to wake up from anesthesia received Phenylephrine, albumin and narcan. Bipap and transferred to PCU. - EKG without ST changes. Hgb stable. CXR no pneumo or acute process Patient was still tachycardic and borderline hypertensive this morning - 500cc fluid bolus without improvement - CT angio: No PE, pulmonary HTN, bronchial wall thickening - infectious vs inflammatory airway disease (3) Open fracture dislocation of ankle: Plan: Sustained the open fracture dislocation taken S/p Application external fixator right foot at washout with Dr. Chepe Daly 03/13 - NWB right foot - Eliquis for DVT proh - f/u with Dr. Shin for definitive treatment Dr. Shin consulted - patient extremely high risk for infection and possible need for amputation - s/p removal of external fixator, right ankle subtalar joint fusion 03/[address] Shin - RLE NWB - resume DVT proh - Eliquis 2.5 BID - follow up 1-2 weeks outpatient Orthopedics have deemed patient medically stable from their standpoint for discharge, patient transferred to hospitalist service for further care on 03/16 (4) Diabetic nephropathy associated with type 2 diabetes mellitus: Plan: this patient is on many medications including insulin, Mounjaro, and metformin Patient w/ recurrent hypoglycemic episodes while inpatient. Pharmacy was consulted to aid in glycemic management (5) CAD (coronary artery disease): Plan: history of cardiac arrest, non occlusive CAD, previously preserved LV function. EF >70% on 11/2021 echo Continue ASA, statin and lasix. (6) Toxic encephalopathy: (7) Hypotension: (8) Acute metabolic encephalopathy: (9) Morbid obesity with BMI of 50.0-59.9, adult: Plan Chronic stable medical conditions: * BPH continue tamsulosin * tim will continue NIPPV * CKD - Cr stable, encourage PO hydration DVT prophylaxis: sophysaltycaren resumed Disposition: continued inpatient stay, awaiting placement LM for 03/22, she was updated extensively by Dr. Shin & daughter updated at bedside 03/25. updated by phone 03/26. Admission and Anticipated Discharge Date Admission Date: March 13, 2024 Supervising Physician Co-Signing Physician Notes Attending Attestation: Chart reviewed, care plan d/w ROXY Cortez. I agree w/ the guevara components of her documentation. Johann Leiva MD Subjective Patient seen resting in bed - back to baseline mental status. Reports feeling tired Tachycardic - but denies CP or shortness of breath had not seen PT prior to me seeing him Tele - SR 110s Review of Systems 2 Review of Systems: All systems reviewed & are unremarkable except as noted in Subjective Physical Exam Physical Exam: General: NAD, VS as above, lying in bed Resp: normal respiratory effort, lungs diiminished in the bases, on 2L CV: RRR, no murmur, Abd: normal bowel sounds, non tender, soft Extremities:left foot s/p toe amputation, dressing not removed, c/d/i. Right foot splint in place Neuro: A&O x3, Results & Data Results & Data Vital Signs (Past 12 Hours) Vital Signs Temp Pulse Pulse Pulse Resp BP BP 03/26/24 12:16 99.0 F 114 H 18 115/57 L 03/26/24 07:40 110 H 03/26/24 07:32 98.6 F 110 H 20 110/55 L 03/26/24 07:30 03/26/24 06:00 98.8 F 112 H 18 115/68 03/26/24 05:14 98.8 F 109 H 21 119/72 03/26/24 04:00 98.6 F 111 H 18 118/81 03/26/24 03:09 98.8 F 111 H 18 107/97 03/26/24 02:30 98.6 F 113 H 16 114/68 03/26/24 02:00 98.6 F 112 H 19 112/68 03/26/24 01:00 98.4 F 112 H 19 114/70 03/26/24 00:45 98.2 F 112 H 117/71 Pulse Ox O2 Del Method O2 Flow Rate 03/26/24 12:16 99 Nasal Cannula 4 03/26/24 07:40 03/26/24 07:32 95 Nasal Cannula 2 03/26/24 07:30 Nasal Cannula 4 03/26/24 06:00 95 03/26/24 05:14 93 Nasal Cannula 4 03/26/24 04:00 03/26/24 03:09 93 03/26/24 02:30 97 03/26/24 02:00 98 03/26/24 01:00 03/26/24 00:45 Laboratory Results cbc and chemistry reviewed phos and mag reviewed PG Care Time/CCT Total # of Minutes Spent Total Time Spent with Patient: Total time spent is greater than 50% in coordination of care (as documented) at patient's floor/unit and/or counseling patient: Coding Level of Care Code 57912 SUB INP/OBS CARE 3/50MIN Diagnoses Chronic ulcer of left foot with necrosis of bone L97.524 Acute postoperative pulmonary insufficiency J95.2 Type III open fracture dislocation of right ankle, initial encounter S82.891C Encounter type: initial encounter Laterality: right Open fracture type: open type III Diabetic nephropathy associated with type 2 diabetes mellitus E11.21 CAD (coronary artery disease) I25.10 Toxic encephalopathy G92.9 Hypotension I95.9 Acute metabolic encephalopathy G93.41 Morbid obesity with BMI of 50.0-59.9, adult E66.01; Z68.43 (3) Open fracture dislocation of ankle Encounter type: initial encounter Laterality: right Open fracture type: open type III Qualified Code(s): S82.891C - Other fracture of right lower leg, initial encounter for open fracture type IIIA, IIIB, or IIIC
--- NOTE | 2024-03-26 14:59 | CT Scan Report ---
CT angio chest PE protocol CLINICAL HISTORY: PE TECHNIQUE: Multidetector row helical CT of the chest was performed with angiographic protocol. Walker l and sagittal reformations were obtained. Coronal and sagittal MIPS were obtained from the axial dorinda a set and were submitted for review. Automated dose lowering techniques and/or adjustment according to patient size were utilized for this exam. CT DOSE: 907.19 mGy.cm Comparison: Comparison is made to CT chest 06/03/2023 FINDINGS: Lungs and pleura: Atelectasis versus scarring is seen in the dependent portions of the lungs. Bronchi al wall thickening is seen. Heart and pericardium: Heart size is normal. No pericardial effusion. Vessels: No evidence of pulmonary embolism. Pulmonary trunk measures 33 mm in diameter. Moderate athe rosclerotic disease is seen. Mediastinum and lay: Subcentimeter lymph nodes are seen. Chest wall and lower neck: Unremarkable. Abdomen: A hiatal hernia is seen. Limited range of motion left adrenal adenoma is seen. Bones: Degenerative changes in the thoracic spine. IMPRESSION: 1. No evidence of pulmonary embolus. 2. Bronchial wall thickening may represent infectious/inflammatory airways disease. 3. Pulmonary hypertension. ACT 112: Negative or not required by law. Electronically signed by: Rod Hoyt M.D. 03/26/2024 2:58 PM
--- NOTE | 2024-03-27 05:48 | Orthopedic Progress Note ---
Date of Service March 27, 2024 Assessment & Plan (1) Open fracture dislocation of right ankle: Plan: -POD #2 s/p right TTC fusion for open ankle fracture/dislocation -Maintain splint, NWB RLE. LLE per podiatry -DVT prophylaxis: Eliquis -Pain control per primary -Discharge planning: Awaiting placement Follow-up with Dr. Shin in 1-2 weeks for a wound check. Call [phone] to make an appointment. Admission and Anticipated Discharge Date Admission Date: March 13, 2024 Supervising Physician Co-Signing Physician Notes Patient seen and evaluated on postoperative day #2. This is a late entry. Patient doing well status post acute TTC nail for right open ankle fracture/dislocation. Okay for DVT prophylaxis. Multimodal pain control avoiding NSAIDs. Will follow-up with myself in 1 to 2 weeks for wound check. Subjective Patient seen POD #2 s/p right TTC fusion for open right ankle fracture/dislocation. He was transferred out of the ICU and states that he was able to get a little bit of rest. He denies current pain. No other acute complaints or concerns this morning. Review of Systems Review of Systems: Negative unless otherwise stated above Physical Exam Musculoskeletal: RLE: Splint in place. Dressings are clean, dry and intact. Toes with decreased sensation at baseline. FHL/EHL intact. Neurologic: Awake, alert and oriented x 3. Answering questions appropriately. Results & Data Vital Signs (Past 12 Hours) Vital Signs Temp Pulse Pulse Resp BP Pulse Ox O2 Del Method 03/27/24 02:47 37 C 110 H 20 124/78 93 Nasal Cannula 03/26/24 23:00 113 H 14 94 03/26/24 23:00 112 H 03/26/24 22:07 37.1 C 113 H 18 114/70 93 Room Air 03/26/24 22:00 Room Air, BiPAP 03/26/24 19:47 37 C 111 H 18 124/77 94 Room Air O2 Flow Rate 03/27/24 02:47 4 03/26/24 23:00 4 03/26/24 23:00 03/26/24 22:07 03/26/24 22:00 03/26/24 19:47
[2024-03-27 06:24] LABS: Basophils # (auto) 0.02 K/uL (0.00-0.20); Basophils % (auto) 0.3 %; Eosinophils # (auto) 0.31 K/uL (0.00-0.50); Eosinophils % (auto) 4.1 %; Hematocrit (blood only) 24.9 % (42.0-52.0); Hemoglobin 7.6 g/dl (14.0-18.0); Immature Granulocytes # (auto) 0.07 K/uL (0.01-0.20); Immature Granulocytes % (auto) 0.9 %; Lymphocytes # (auto) 1.17 K/uL (1.20-3.40); Lymphocytes % (auto) 15.4 %; Mean Corpuscular Hemoglobin 26.7 pg (25.0-34.0); Mean Corpuscular Hgb Conc 30.5 g/dL (32.0-36.0); Mean Corpuscular Volume 87.4 fL (80.0-100.0); Mean Platelet Volume 8.7 fL (9.4-12.4); Monocytes # (auto) 0.92 K/uL (0.11-0.59); Monocytes % (auto) 12.1 %; Neutrophils # (auto) 5.12 K/uL (1.40-6.50); Neutrophils % (auto) 67.2 %; Platelet Count 223 K/uL (130-400); RDW Coefficient of Variation 14.6 % (11.5-14.5); RDW Standard Deviation 46.7 fL (36.4-46.3); Red Blood Count 2.85 M/uL (4.70-6.10); White Blood Count 7.61 K/ul (4.8-10.8)
[2024-03-27 06:40] LABS: BUN Creatinine Ratio 14.2 (10-20); Calcium 8.6 mg/dl (8.6-10.3); Creatinine Clr Calc Pharmacy 51.7 ml/min; Polychromasia 1+; Potassium 4.2 mmol/L (3.5-5.1)
--- NOTE | 2024-03-27 07:49 | Electrocardiogram Report ---
Test Reason : Blood Pressure : */* mmHG Vent. Rate : 111 BPM Atrial Rate : 113 BPM P-R Int : 208 ms QRS Dur : 78 ms QT Int : 360 ms P-R-T Axes : 91 -32 -38 degrees QTcB Int : 492 ms Poor data quality, interpretation may be adversely affected Sinus tachycardia Left axis deviation Inferior infarct Prolonged QT Abnormal ECG When compared with ECG of 04-Mar-2023 05:48, QT has lengthened Confirmed by Henrry Monroe ([id number]) on 03/27/2024 7:48:57 AM Referred By: REFERRED SELF Confirmed By: Henrry Monroe
[2024-03-27] MEDS: LANTUS PER UNIT CHARGE SC SCH (08:10)
[2024-03-27] MEDS ORDERED: SODIUM CHLORIDE 0.9% 50 ML IV PRN (08:22)
[2024-03-27] MEDS ORDERED: SODIUM CHLORIDE 0.9% 100 ML IV PRN (08:22)
--- NOTE | 2024-03-27 11:43 | Hospitalist Progress Note ---
Date of Service March 27, 2024 Assessment & Plan (1) Chronic ulcer of left foot with necrosis of bone: Plan: Patient w/ hx of osteomyelitis on chronic abx therapy of [facility]. CT right foot: extensive, diffuse cellulitis w/ most prominent induration medical to the distal tibia. No organized or drainable collection. scattered gas likely is related to open nature of the fracture and operative manipulation. CT left foot: induration and probable disorganized abscess noted plantar lateral to the distal 5th met[address]ars[address]. no ct evidence osteomyelitis MRI left foot: amputated left first and 2nd toes. bone resorption of 5th metatarsal head w/ soft tissue mass at plantar aspect. arthritic changes at intertarsal and tarsometatarsal articulations. atrophic fatty infiltration of foot musculature. subcutaneous edema of foot. Podiatry consulted, Dr. Mccray - s/p left transmetatarsal amputation on 03/18. - surgical shoe for ambulation OR culture: No organisms. Final. Bone path: soft tissues without significant inflammation. Left foot wound culture: staph pseudintermediu with multiple resistances. Consult infectious disease given complexity of patient's wounds- completed 7 day course of daptomycin. PT/OT following, recommending rehab. - CM following, looking for bed - [facility] friday, applied for auth 03/26 (2) Acute postoperative pulmonary insufficiency: Plan: Slow to wake up from anesthesia received Phenylephrine, albumin and narcan. Bipap and transferred to PCU. - EKG without ST changes. Hgb stable. CXR no pneumo or acute process Patient was still tachycardic and borderline hypertensive this morning - 500cc fluid bolus without improvement - CT angio: No PE, pulmonary HTN, bronchial wall thickening - infectious vs inflammatory airway disease - 03/27 EKG confirms sinus tachycardia - with decreasing hemoglobin will transfuse 1 unit PRBCs today in case anemia is contributing slight increase in creatinine, monitor with a.m. labs (3) Open fracture dislocation of ankle: Plan: Sustained the open fracture dislocation taken S/p Application external fixator right foot at washout with Dr. Chepe Daly 03/13 - NWB right foot - Eliquis for DVT proh - f/u with Dr. Shin for definitive treatment Dr. Shin consulted - patient extremely high risk for infection and possible need for amputation - s/p removal of external fixator, right ankle subtalar joint fusion 03/[address] Shin - MAI NWB - resume DVT proh - Eliquis 2.5 BID - follow up 1-2 weeks outpatient Orthopedics have deemed patient medically stable from their standpoint for discharge, patient transferred to hospitalist service for further care on 03/16 (4) Diabetic nephropathy associated with type 2 diabetes mellitus: Plan: this patient is on many medications including insulin, Mounjaro, and metformin Patient w/ recurrent hypoglycemic episodes while inpatient. Pharmacy was consulted to aid in glycemic management (5) CAD (coronary artery disease): Plan: history of cardiac arrest, non occlusive CAD, previously preserved LV function. EF >70% on 11/2021 echo Continue ASA, statin and lasix. (6) Toxic encephalopathy: Plan: resolved (7) Hypotension: Plan: resolved (8) Acute metabolic encephalopathy: Plan: resolved (9) Morbid obesity with BMI of 50.0-59.9, adult: Plan Chronic stable medical conditions: * BPH continue tamsulosin * tim will continue NIPPV - patient has not been using at home states he cannot tolerate it * CKD - Cr stable, encourage PO hydration DVT prophylaxis: eliquis resumed Disposition: continued inpatient stay, receiving blood today and awaiting placement LM for 03/22, she was updated extensively by Dr. Shin & daughter updated at bedside 03/25. updated by phone 03/26. Admission and Anticipated Discharge Date Admission Date: March 13, 2024 Supervising Physician Co-Signing Physician Notes Attending Attestation: Chart reviewed, care plan d/w ROXY Cortez. I agree w/ the guevara components of her documentation with the following addition - * acute blood loss anemia -- agree with PRBCs today Repeat CBC in am. Johann Leiva MD Subjective Patient seen lying in bed, has oxygen on because he only was able to tolerate the BiPAP for 2-1/2 hours last night. States that his pain is well-controlled Has not been sitting up to the edge of bed for meals, encouraged him to do so Last bowel movement 2 days ago Has been passing gas and surgery telemetry sinus tachycardia 110s Physical Exam Physical Exam: General: NAD, VS as above, lying in bed Resp: normal respiratory effort, lungs diiminished in the bases, no wheezing,on 2L CV: RRR, no murmur, Abd: normal bowel sounds, non tender, soft Extremities:left foot s/p toe amputation, dressing not removed, c/d/i. Right foot splint in place +pulses Neuro: A&O x3, Results & Data Results & Data Vital Signs (Past 12 Hours) Vital Signs Temp Pulse Pulse Resp BP BP Pulse Ox 03/27/24 11:31 98.4 F 116 H 20 192/112 H 94 03/27/24 11:01 98.6 F 85 20 120/69 95 03/27/24 10:46 98.4 F 76 20 124/72 96 03/27/24 10:30 98.1 F 85 18 104/73 96 03/27/24 10:23 98.1 F 85 18 104/73 96 03/27/24 08:00 98.2 F 112 H 19 141/92 H 96 03/27/24 07:45 111 H 03/27/24 02:47 98.6 F 110 H 20 124/78 93 O2 Del Method O2 Flow Rate 03/27/24 11:31 2 03/27/24 11:01 2 03/27/24 10:46 2 03/27/24 10:30 2 03/27/24 10:23 2 03/27/24 08:00 Nasal Cannula 2.0 03/27/24 07:45 03/27/24 02:47 Nasal Cannula 4 Laboratory Results CBC and chemistry reviewed Diagnostic Findings CT angiogram reviewed PG Care Time/CCT Total # of Minutes Spent Total Time Spent with Patient: Total time spent is greater than 50% in coordination of care (as documented) at patient's floor/unit and/or counseling patient: Coding Level of Care Code 27264 SUB INP/OBS CARE 3/50MIN Diagnoses Chronic ulcer of left foot with necrosis of bone L97.524 Acute postoperative pulmonary insufficiency J95.2 Type III open fracture dislocation of right ankle, initial encounter S82.884H Encounter type: initial encounter Laterality: right Open fracture type: open type III Diabetic nephropathy associated with type 2 diabetes mellitus E11.21 CAD (coronary artery disease) I25.10 Toxic encephalopathy G92.9 Hypotension I95.9 Acute metabolic encephalopathy G93.41 Morbid obesity with BMI of 50.0-59.9, adult E66.01; Z68.43 (3) Open fracture dislocation of ankle Encounter type: initial encounter Laterality: right Open fracture type: open type III Qualified Code(s): S82.891C - Other fracture of right lower leg, initial encounter for open fracture type IIIA, IIIB, or IIIC
[2024-03-28 06:45] LABS: Hematocrit (blood only) 27.1 % (42.0-52.0); Hemoglobin 8.3 g/dl (14.0-18.0); Mean Corpuscular Hemoglobin 26.5 pg (25.0-34.0); Mean Corpuscular Hgb Conc 30.6 g/dL (32.0-36.0); Mean Corpuscular Volume 86.6 fL (80.0-100.0); Mean Platelet Volume 8.9 fL (9.4-12.4); Platelet Count 235 K/uL (130-400); RDW Standard Deviation 44.1 fL (36.4-46.3); Red Blood Count 3.13 M/uL (4.70-6.10)
[2024-03-28 07:12] LABS: BUN Creatinine Ratio 16.5 (10-20); Calcium 8.7 mg/dl (8.6-10.3); Creatinine Clr Calc Pharmacy 62.3 ml/min; Potassium 4.2 mmol/L (3.5-5.1)
[2024-03-28] MEDS: LANTUS PER UNIT CHARGE SC SCH (09:16)
--- NOTE | 2024-03-28 09:40 | Hospitalist Progress Note ---
Date of Service March 28, 2024 Assessment & Plan (1) Chronic ulcer of left foot with necrosis of bone: Plan: Patient w/ hx of osteomyelitis on chronic abx therapy of [facility] outpatient. CT right foot: extensive, diffuse cellulitis w/ most prominent induration medical to the distal tibia. No organized or drainable collection. scattered gas likely is related to open nature of the fracture and operative manipulation. CT left foot: induration and probable disorganized abscess noted plantar lateral to the distal 5th met[address]ars[address]. no ct evidence osteomyelitis MRI left foot: amputated left first and 2nd toes. bone resorption of 5th metatarsal head w/ soft tissue mass at plantar aspect. arthritic changes at intertarsal and tarsometatarsal articulations. atrophic fatty infiltration of foot musculature. subcutaneous edema of foot. OR culture: No organisms. Final. Bone path: soft tissues without significant inflammation. Left foot wound culture: staph pseudintermediu with multiple resistances. Podiatry consulted, Dr. Mccray - s/p left transmetatarsal amputation on 03/18. surgical shoe for ambulation. Consult infectious disease given complexity of patient's wounds- completed 7 day course of daptomycin. PT/OT following, recommending rehab. - CM following, looking for bed - [facility] friday, applied for auth 03/26 (2) Acute postoperative pulmonary insufficiency: Plan: Slow to wake up from anesthesia received Phenylephrine, albumin and narcan. Bipap and transferred to PCU. - EKG without ST changes. Hgb stable. CXR no pneumo or acute process - CT angio: No PE, pulmonary HTN, bronchial wall thickening - infectious vs inflammatory airway disease tachycardia has improved with 1 unit of blood and 500 cc fluid bolus. Encourage adequate hydration. kidney function has returned to baseline (3) Open fracture dislocation of ankle: Plan: Sustained the open fracture dislocation taken S/p Application external fixator right foot at washout with Dr. Chepe Daly 1 05/14 - f/u with Dr. Shin for definitive treatment Dr. Shin consulted - patient extremely high risk for infection and possible need for amputation - s/p removal of external fixator, right ankle subtalar joint fusion 03/[address] Shin - RLE NWB - resume DVT proh - Eliquis 2.5 BID - follow up 1-2 weeks outpatient Orthopedics have deemed patient medically stable from their standpoint for discharge, patient transferred to hospitalist service for further care on 03/16 (4) Diabetic nephropathy associated with type 2 diabetes mellitus: Plan: this patient is on many medications including insulin, Mounjaro, and metformin Patient w/ recurrent hypoglycemic episodes while inpatient. Pharmacy was consulted to aid in glycemic management (5) CAD (coronary artery disease): Plan: history of cardiac arrest, non occlusive CAD, previously preserved LV function. EF >70% on 11/2021 echo Continue ASA, statin and lasix. (6) Toxic encephalopathy: Plan: resolved (7) Hypotension: Plan: resolved (8) Acute metabolic encephalopathy: Plan: resolved (9) Morbid obesity with BMI of 50.0-59.9, adult: (10) Acute blood loss anemia: Plan Chronic stable medical conditions: * BPH continue tamsulosin * tim will continue NIPPV - patient has not been using at home states he cannot tolerate it * CKD - Cr stable, encourage PO hydration DVT prophylaxis: eliquis resumed Disposition: continued inpatient stay, awaiting placement LM for 03/22, she was updated extensively by Dr. Shin & daughter updated at bedside 03/25. updated by phone 03/26. Admission and Anticipated Discharge Date Admission Date: March 13, 2024 Supervising Physician Co-Signing Physician Notes Attending Attestation: Chart reviewed, care plan d/w PA Aurelia Cortez. I agree w/ the guevara components of her documentation with the following addition - * acute blood loss anemia -- H/H stable s/p PRBCs the previous day Other plans per Ms Cortez. Overall he is progressing. Johann Leiva MD Subjective Patient seen lying in bed, when asked how he is doing reports "i'm still here" He did have a bowel movement yesterday HR has improved but pt could not feel when his heart rate was rapid did not sit up for dinner yesterday - encouraged to do so, to start gaining strength back - Telemetry sinus rhythm 80s to 90s Review of Systems Review of Systems: All systems reviewed & are unremarkable except as noted in Subjective Physical Exam Physical Exam: General: NAD, VS as above, lying in bed Resp: normal respiratory effort, lungs diiminished in the bases, no wheezing,on room air CV: RRR, no murmur, Abd: normal bowel sounds, non tender, soft Extremities:left foot s/p toe amputation, dressing not removed, c/d/i. Right foot splint in place +pulses Neuro: A&O x3, Results & Data Results & Data Vital Signs (Past 12 Hours) Vital Signs Temp Pulse Pulse Resp BP Pulse Ox O2 Del Method 03/28/24 09:22 Room Air 03/28/24 08:00 98.4 F 111 H 19 134/82 97 Room Air 03/28/24 05:11 101 H 14 95 03/28/24 03:15 98.1 F 88 18 133/82 95 BiPAP 03/27/24 23:20 112 H 14 95 03/27/24 23:00 83 03/27/24 23:00 Nasal Cannula, BiPAP 03/27/24 22:22 97.9 F 113 H 16 135/87 97 Nasal Cannula O2 Flow Rate 03/28/24 09:22 03/28/24 08:00 03/28/24 05:11 4 03/28/24 03:15 03/27/24 23:20 4 03/27/24 23:00 03/27/24 23:00 03/27/24 22:22 2 Laboratory Results CBC and chemistry reviewed PG Care Time/CCT Total # of Minutes Spent Total Time Spent with Patient: Total time spent is greater than 50% in coordination of care (as documented) at patient's floor/unit and/or counseling patient: Coding Level of Care Code 47831 SUB INP/OBS CARE 3/50MIN Diagnoses Chronic ulcer of left foot with necrosis of bone L97.524 Acute postoperative pulmonary insufficiency J95.2 Type III open fracture dislocation of right ankle, initial encounter S82.891C Encounter type: initial encounter Laterality: right Open fracture type: open type III Diabetic nephropathy associated with type 2 diabetes mellitus E11.21 CAD (coronary artery disease) I25.10 Toxic encephalopathy G92.9 Hypotension I95.9 Acute metabolic encephalopathy G93.41 Morbid obesity with BMI of 50.0-59.9, adult E66.01; Z68.43 Acute blood loss anemia D62 (3) Open fracture dislocation of ankle Encounter type: initial encounter Laterality: right Open fracture type: open type III Qualified Code(s): S82.891C - Other fracture of right lower leg, initial encounter for open fracture type IIIA, IIIB, or IIIC
--- NOTE | 2024-03-29 11:52 | Pharmacy Report ---
Pharmacy Glycemic Short Note 2 - Date of Service March 29, 2024 - Glycemic Short BSG Results (Last 24 hours): 03/28/24 03/28/24 03/29/24 16:22 20:20 07:17 POC Glucose 170 H 159 H 139 H 03/29/24 11:21 POC Glucose 126 H OUTPATIENT ANTIDIABETIC REGIMEN: * Lantus 70 units SC AM * Novolog SSI * Jardiance 25 mg PO AM * Metformin 500 mg PO BID * Mounjaro 2.5mg SC weekly * HbA1c: 6.0% (03/17/24) ASSESSMENT: 03/29: * BSGs within goal the last 48h. Received 25 units of basal and 11 units of bolus insulin yesterday. * Tolerating diet. POD #4. * Transitioned back to once daily basal over the weekend. Continue same. No changes to Novolog. 03/26: * BSGs largely within goal the last 24h: [phone]/dL Received 15 units of basal and 1 unit of bolus insulin. * POD #1. Diet advanced. * Increase AM Lantus to 15 units given elevated fasting BSG. Continue with HS scale for now until tolerating fully advanced diet. No change to Novolog. 03/25: * Patient received total of 45 units of insulin yesterday, of which 25 units were basal insulin * Fasting BSG 135 mg/dL - NPO this AM for procedure, reduced to 10 units basal, will provide scale for basal at HS once surgery complete 03/23: * Enrique received 40 units of insulin yesterday, 20 of both basal and bolus. BSGs were: [phone] mg/dL. * Stressors remain stable with dapto for osteomyelitis and POD #5 from TMA. Given postoperative status, want to ensure BSGs are < 180 mg/dL to minimize postop infection risk. * Fasting BSG increased to 161 mg/dL this AM. Feel comfortable increasing basal by ~20% this AM. Patient did have hypoglycemia previously during this admission but was with minimal PO intake and 50 units of basal insulin. * Given evening trend of postprandial hyperglycemia, will tighten carb ratio very slightly this AM. 03/22: * A total of 29 units of insulin were given yesterday (20 units were basal). * Fasting BSG was within goal range this morning so Lantus will be continued as ordered. * Bolus insulin parameters were tightened on 03/20 and BSGs have mostly been within the goal range since then (ranged from 115-146mg/dL). Will continue with this bolus insulin parameters. * Of note: patient received 2.5mg tirzepatide on the evening of 03/19. (his own medication) * POD#4 TMA and patient continues on daptomycin 03/19: * BSGs have been on the lower end the last few days. BSG on 03/17 and into 03/18 were all below goal range so basal insulin was held. * He only required 1 unit of insulin total yesterday and it was bolus (BSGs ranged from 84-155 yesterday) * Patient was reported to have eaten all of his breakfast today and his BSG ritesh to 276mg/dL at lunch today. Lantus 20 units was given and will be continued daily. * Bolus insulin parameters to be continued as is for now. * POD #1 and pt continues on daptomycin for osteo. 03/17: * Mr Alvarado is a 68yo diabetic M admitted with R open ankle fx. * Pt is scheduled to go to the OR tomorrow for L foot amputation, and will be NPO p midnight. * Pt had an episode of symptomatic hypoglycemia (BSG 46) yesterday evening. Pharmacy glycemic consult was then placed. * Lantus dose was reduced significantly this morning. Carb ratio was removed from Novolog. Will hold metformin after today's dose in preparation for OR tomorrow. * Pharmacy will continue to follow during admission and adjust regimen as indicated. PLAN FOR INPATIENT GLYCEMIC CONTROL: * Hold outpatient oral diabetes medications * Basal insulin * Lantus 25 units SQ daily * Bolus insulin * NovoLog per scale ACHS or Q6hrs while NPO * Goal Range: Low 110 mg/dL - High 140 mg/dL * Correction Factor: 25 mg/dL/unit * Nutritional / Prandial insulin per carb ratio: 1 unit/8 grams CHO
--- NOTE | 2024-03-29 12:54 | Hospitalist Progress Note ---
Date of Service March 29, 2024 Assessment & Plan (1) Chronic ulcer of left foot with necrosis of bone: Plan: Patient w/ hx of osteomyelitis on chronic abx therapy of [facility] outpatient. CT right foot: extensive, diffuse cellulitis w/ most prominent induration medical to the distal tibia. No organized or drainable collection. scattered gas likely is related to open nature of the fracture and operative manipulation. CT left foot: induration and probable disorganized abscess noted plantar lateral to the distal 5th met[address]. no ct evidence osteomyelitis MRI left foot: amputated left first and 2nd toes. bone resorption of 5th metatarsal head w/ soft tissue mass at plantar aspect. arthritic changes at intertarsal and tarsometatarsal articulations. atrophic fatty infiltration of foot musculature. subcutaneous edema of foot. OR culture: No organisms. Final. Bone path: soft tissues without significant inflammation. Left foot wound culture: staph pseudintermediu with multiple resistances. Podiatry consulted, Dr. Mccray - s/p left transmetatarsal amputation on 03/18. surgical shoe for ambulation. Consult infectious disease given complexity of patient's wounds- completed 7 day course of daptomycin. PT/OT following, recommending rehab. - CM following, [facility] for bed [facility] friday, applied for auth 03/26 (2) Acute postoperative pulmonary insufficiency: Plan: Slow to wake up from anesthesia received Phenylephrine, albumin and narcan. Bipap and transferred to PCU. - EKG without ST changes. Hgb stable. CXR no pneumo or acute process - CT angio: No PE, pulmonary HTN, bronchial wall thickening - infectious vs inflammatory airway disease tachycardia has improved with 1 unit of blood and 500 cc fluid bolus. Encourage adequate hydration. kidney function has returned to baseline (3) Open fracture dislocation of ankle: Plan: Sustained the open fracture dislocation taken S/p Application external fixator right foot at washout with Dr. Chepe Daly 1 05/14 - f/u with Dr. Shin for definitive treatment Dr. Shin consulted - patient extremely high risk for infection and possible need for amputation - s/p removal of external fixator, right ankle subtalar joint fusion 03/[address] Shin - RLE NWB - resume DVT proh - Eliquis 2.5 BID - follow up 1-2 weeks outpatient Orthopedics have deemed patient medically stable from their standpoint for discharge, patient transferred to hospitalist service for further care on 03/16 (4) Diabetic nephropathy associated with type 2 diabetes mellitus: Plan: this patient is on many medications including insulin, Mounjaro, and metformin Patient w/ recurrent hypoglycemic episodes while inpatient. Pharmacy was consulted to aid in glycemic management (5) CAD (coronary artery disease): Plan: history of cardiac arrest, non occlusive CAD, previously preserved LV function. EF >70% on 11/2021 echo Continue ASA, statin and lasix. (6) Toxic encephalopathy: Plan: resolved (7) Hypotension: Plan: resolved (8) Acute metabolic encephalopathy: Plan: resolved (9) Morbid obesity with BMI of 50.0-59.9, adult: (10) Acute blood loss anemia: Plan Chronic stable medical conditions: * BPH continue tamsulosin * tim will continue NIPPV - patient has not been using at home states he cannot tolerate it * CKD - Cr stable, encourage PO hydration DVT prophylaxis: eliquis resumed Disposition: continued inpatient stay, awaiting placement, stable for downgrade to medical. LM for 03/22, she was updated extensively by Dr. Shin & daughter updated at bedside 03/25. updated by phone 03/26. Admission and Anticipated Discharge Date Admission Date: March 13, 2024 Supervising Physician Co-Signing Physician Notes Attending Attestation: Chart reviewed, care plan d/w ROXY Cortez. I agree w/ the guevara components of her documentation. Possible d/c to rehab tomorrow. Johann Leiva MD Subjective Patient seen lying in bed did not sit up at the edge of bed yesterday - discussed loss of strength from remaining in bed and that he is not going to be able to do this at rehab [facility] out today pt jayce pain Tele SR 80-90s Review of Systems Review of Systems: All systems reviewed & are unremarkable except as noted in Subjective Physical Exam Physical Exam: General: NAD, VS as above, lying in bed Resp: normal respiratory effort, lungs diminished in the bases, no wheezing,on room air CV: RRR, no murmur, Abd: normal bowel sounds, non tender, soft Extremities:left foot s/p toe amputation, dressing not removed, c/d/i. Right foot splint in place +pulses Neuro: A&O x3, Results & Data Results & Data Vital Signs (Past 12 Hours) Vital Signs Temp Pulse Pulse Resp BP Pulse Ox O2 Del Method 03/29/24 11:23 98.2 F 85 18 114/76 96 Room Air 03/29/24 10:00 Room Air 03/29/24 07:56 98.6 F 81 18 122/78 95 Room Air 03/29/24 07:26 90 03/29/24 03:40 98 H 03/29/24 03:03 97.2 F L 115 H 20 138/78 97 Nasal Cannula PG Care Time/CCT Total # of Minutes Spent Total Time Spent with Patient: Total time spent is greater than 50% in coordination of care (as documented) at patient's floor/unit and/or counseling patient: Coding Level of Care Code 37421 SUB INP/OBS CARE 05/01MIN Diagnoses Chronic ulcer of left foot with necrosis of bone L97.524 Acute postoperative pulmonary insufficiency J95.2 Type III open fracture dislocation of right ankle, initial encounter S82.891C Encounter type: initial encounter Laterality: right Open fracture type: open type III Diabetic nephropathy associated with type 2 diabetes mellitus E11.21 CAD (coronary artery disease) I25.10 Toxic encephalopathy G92.9 Hypotension I95.9 Acute metabolic encephalopathy G93.41 Morbid obesity with BMI of 50.0-59.9, adult E66.01; Z68.43 Acute blood loss anemia D62 (3) Open fracture dislocation of ankle Encounter type: initial encounter Laterality: right Open fracture type: open type III Qualified Code(s): S82.891C - Other fracture of right lower leg, initial encounter for open fracture type IIIA, IIIB, or IIIC
[2024-03-29] MEDS: ACETAMINOPHEN 500 MG TAB PO PRN (17:04)
[2024-03-30 08:25] VITALS: BP 136/91; PULSE 125; RESP 20; TEMP 97.3; O2SAT 93
--- NOTE | 2024-03-30 10:31 | Discharge Summary ---
Discharge Summary Date of Service March 30, 2024 Principal Dx & Hospital Course #1 = Principal Diagnosis (1) Chronic ulcer of left foot with necrosis of bone: Patient w/ hx of osteomyelitis on chronic abx therapy of [facility] outpatient. CT right foot: extensive, diffuse cellulitis w/ most prominent induration medical to the distal tibia. No organized or drainable collection. scattered gas likely is related to open nature of the fracture and operative manipulation. CT left foot: induration and probable disorganized abscess noted plantar lateral to the distal 5th metatarsal. no ct evidence osteomyelitis MRI left foot: amputated left first and 2nd toes. bone resorption of 5th metatarsal head w/ soft tissue mass at plantar aspect. arthritic changes at intertarsal and tarsometatarsal articulations. atrophic fatty infiltration of foot musculature. subcutaneous edema of foot. OR culture: No organisms. Final. Bone path: soft tissues without significant inflammation. Left foot wound culture: staph pseudintermediu with multiple resistances. Podiatry consulted, Dr. Mccray - s/p left transmetatarsal amputation on 03/18. surgical shoe for ambulation. Consult infectious disease given complexity of patient's wounds- completed 7 day course of daptomycin. PT/OT following, recommending rehab. D/c to [facility] today. (2) Open fracture dislocation of ankle: Orthopedics have deemed patient medically stable from their standpoint for discharge, patient transferred to hospitalist service for further care on 03/16 Sustained the open fracture dislocation taken S/p Application external fixator right foot at washout with Dr. Chepe Daly 03/13 - f/u with Dr. Shin for definitive treatment Dr. Shin consulted - patient extremely high risk for infection and possible need for amputation - s/p removal of external fixator, right ankle subtalar joint fusion 03/[address] Shin - RLE NWB - resume DVT proh - Eliquis 2.5 BID (increased to 5mg BID for possible flutter) - follow up 1-2 weeks outpatient (3) Diabetic nephropathy associated with type 2 diabetes mellitus: this patient is on many medications including insulin, Mounjaro, and metformin Patient w/ recurrent hypoglycemic episodes while inpatient. Pharmacy was consulted to aid in glycemic management - pt required significantly less antiglycemic while inpatient compared to home regimen (controlled with lantus 25 units and SSI) - suspect likely due to PO intake at home. This message was relayed to his rehab facility. Continued home dose at discharge given controlled A1c, but may need to be adjust if becoming hypoglycemic at home. (4) Tachycardia: Patient had tachycardia in the PACU after OR on 03/25 - received 1 unit of blood and 500 cc fluid bolus with improved - had varrying rates while on tele, initally concerns for aflutter but EKG were sinus - last tele strip after patient was downgraded was reported as A.flutter but no strip to review - per chart review had A flutter during hospitilzation for PEA arrest during pic c line placement. no [place] AC or rate management from that event Given that patient was already started on Eliquis for DVT prevention, increased to full dose. Added low dose Metoprolol and recommend follow up with Cardiology (5) CAD (coronary artery disease): history of cardiac arrest, non occlusive CAD, previously preserved LV function. EF >70% on 11/2021 echo Continue ASA, statin and lasix. (6) Acute postoperative pulmonary insufficiency: Slow to wake up from anesthesia received Phenylephrine, albumin and narcan. Bipa p and transferred to PCU. - EKG without ST changes. Hgb stable. CXR no pneumo or acute process - CT angio: No PE, pulmonary HTN, bronchial wall thickening - infectious vs inflammatory airway disease This has resolved, encouraged patient to wear Bipap at home. (7) Toxic encephalopathy: resolved (8) Hypotension: resolved (9) Acute metabolic encephalopathy: resolved (10) Morbid obesity with BMI of 50.0-59.9, adult: (11) Acute blood loss anemia: Plan Chronic stable medical conditions: * BPH continue tamsulosin * tim will continue NIPPV - patient has not been using at home states he cannot tolerate it * CKD - Cr stable, encourage PO hydration Pt was started on Librium by prior hopsitalist - unclear why, possible concerns for withdrawal/tremors - pt without bipolar, or continued tremors, instructions for taper at discharge written. Dispo: discharge to [facility] rehab today LM for 03/22, she was updated extensively by Dr. Shin & daughter updated at bedside 03/25. updated by phone 03/26. Offered to update 03/30 and pt declined. Notes For Next Care Provider Concerns for a.flutter - see tachycardia dx, needs cards follow up taper off librium needs close ortho follow up - pt is not very motivated and at high risk for complications - guarded prognosis Medication Changes From Visit Elqiuis metoprolol wean off librium Discharge Exam General: NAD, VS as above, lying in bed Resp: normal respiratory effort, lungs diminished in the bases, no wheezing,on room air CV: RRR, no murmur, Abd: normal bowel sounds, non tender, soft Extremities:left foot s/p toe amputation - dressing saturated, removed, wound looks good, no signs of infection, sutures in tact, redressed. Right foot splint in place +pulses Neuro: A&O x3, Discharge Plan Discharge Items Patient Disposition: Home - Self-Care Reason For Visit: RIGHT ANKLE OPEN DISCLOCATION Discharge Diagnosis: Open right ankle fracture dislocation left osteomylitis Activity: Per Instructions section Non-emergency contact: Primary Care Provider and Surgeon Call non-emergency contact if: you have any medication questions, your symptoms worsen, your wound has increased redness and your wound has increased drainage Follow-up/Referrals: Dora Sales MD [Primary Care Provider] - (follow up after discharge from rehab ) Devang Franco MD [Physician] - (follow up 1-2 weeks ) Ariel Mccray DPM [Physician] - (follow up after discharge from Rehab) Dieter Shin DO [Surgeon] - (follow up 1 week ) Diet: Carb Consistent or DM2 Addtl Attending Provider Instructions: Mr. Alvarado, You were hospitalized after a fall resulting in an open fracture, this led to surgery with Dr. Daly and IV antibiotics. You had your left toes amputated by Dr. Mccray for concerns of bone infection. You then had you right foot operat ed on with Dr. Shin for definitive treatment. You have completed your course of antibiotics and will be going to rehab to get stronger. You will need to follow up with Dr. Mccray and Dr. Shin. Also follow up with your PCP within 7 days from discharge from [facility]. There were concerns with your heart rate and concerns for atrial flutter. For this reason you were started on metoprolol and increased the dose of your eliquis. You will need to follow up with Dr. Salvador regarding this after discharge from rehab. Medication changes: - Eliquis 5mg twice a day for DVT proh - recommend continuing for at least 4 weeks, possibly longer depending on mobility status, you can discuss with your surgeons at follow up and discuss with cardiology - Librium - started during admission, working on tapering off, should continue 10mg daily x7 days and then can stop - oxycodone as needed for pain, however, pain well controlled here with minimal tylenol. There were concerns with your heart rate and concerns for atrial flutter. For this reason you were started on metoprolol and increased For [facility]: - Patient on multiple medications for diabetes (monjuaro, metformin, jardiance, and insulin) - had hyperglycemic episodes on admission and maintained good glucose control with 25 units basal insulin and sliding scale (goal 110-140, CF 25, CR 1:8). This is significantly less than his home dose (70 units long acting) - suspect related to dietary intake at home. I continued his home regiment at discharge but may need to be adjusted based on the control of diet at your facility. - we were instructed in the hospital to only have Dr. Shin change the right foot dressing, if there are issues would recommend calling the number above. - left foot dressing - changed 03/30, with 4X4s, kerlix and and jordan wrap - concerns for possible aflutter on monitor, not captured on EKG, metoprolol started 03/30 can followup with cardiology Pending Studies at Discharge: No Stand-Alone Forms: My [employer], Smoking Cessation Medications and DC Order Prescriptions: New oxycodone 5 mg tablet 5 mg PO Q6H PRN (Reason: pain) Qty: 30 0RF chlordiazepoxide HCl 10 mg Capsule 10 mg PO DAILY 7 Days Qty: 7 0RF Eliquis 5 mg tablet 5 mg PO BID Qty: 30 0RF metoprolol succinate 25 mg Tablet Extended Release 24 Hr 25 mg PO QAM 30 Days Qty: 0 0RF Continued cyanocobalamin (vitamin B-12) 1,000 mcg capsule 1,000 mcg PO DAILY Mounjaro 2.5 mg/0.5 mL pen injector subcut .Weekly aspirin 81 mg tablet,chewable 81 mg PO QAM (DME) FreeStyle Remigio 2 Rowdy Misc See Rx Instructions .Route Qty: 1 0RF Rx Instructions: Use to monitor blood sugars daily (DME) FreeStyle Remigio 2 Sensor Kit See Rx Instructions .Route Qty: 7 3RF Rx Instructions: Change sensor every 14 days metformin 500 mg tablet 500 mg PO BID 90 Days Qty: 180 3RF (DME) Accu-Chek Guide test strips Strip See Rx Instructions .ROUTE .MEDSUPPLY Qty: 100 3RF Rx Instructions: test blood sugar 1 x daily pantoprazole [Protonix] 40 mg tablet,delayed release (DR/EC) 40 mg PO BID Qty: 180 2RF albuterol sulfate 90 mcg/actuation HFA aerosol inhaler 2 puff inhalation .Q4-6H PRN (Reason: shortness of breath or wheezing) Qty: 6.7 0RF sodium zirconium cyclosilicate 10 gram powder in packet 10 g PO DAILY Qty: 30 2RF Patient Comments: doesn't always take it every day Rx Instructions: 2 HOURS AFTER MEDS GIVEN. insulin aspart U-100 [Novolog FlexPen U-100 Insulin] 100 unit/mL (3 mL) insulin pen 80 unit subcut DAILY MDD 80 units Qty: 72 1RF Rx Instructions: PLUS SLIDING SCALE, INJECT up to 80 UNITS SUBCUTANEOUSLY DAILY duloxetine [Cymbalta] 20 mg capsule,delayed release(DR/EC) 20 mg PO BID Qty: 180 3RF Jardiance 25 mg tablet 25 mg PO QAM Qty: 90 3RF atorvastatin [Lipitor] 10 mg tablet 10 mg PO HS Qty: 90 3RF tamsulosin 0.4 mg capsule 0.4 mg PO HS Qty: 30 5RF (DME) pen needle, diabetic [BD Ultra-Fine Mini Pen Needle] 31 gauge x 3/16" needle .ROUTE .MEDSUPPLY Qty: 400 3RF Rx Instructions: use 4 needles daily furosemide [Lasix] 20 mg tablet 20 mg PO QAM Qty: 90 3RF tadalafil 2.5 mg tablet 2.5 mg PO DAILY Qty: 90 3RF (DME) lancets [Accu-Chek Fastclix Lancet Drum] Misc See Rx Instructions .ROUTE .MEDSUPPLY Rx Instructions: test blood sugar 1 x daily insulin glargine [Basaglar KwikPen U-100 Insulin] 100 unit/mL (3 mL) insulin pen 70 unit subcut QAM Mounjaro 2.5 mg/0.5 mL pen injector 2.5 mg subcut Q7D Qty: 2 2RF mecobalamin (vitamin B12) 1,000 mcg lozenge 1,000 mcg PO QAM Rx Instructions: allow to dissolve in mouth OR may chew lightly before swallowing Saccharomyces boulardii [Florastor] 250 mg capsule 250 mg PO BID Qty: 60 0RF alum-mag hydroxide-simeth [Mylanta Maximum Strength] 400-400-40 mg/5 mL s uspension 10 ml PO TID PRN (Reason: .gi-upset) cholecalciferol (vitamin D3) [Vitamin D3] 25 mcg (1,000 unit) tablet 25 mcg PO DAILY Discontinued levofloxacin 500 mg tablet 500 mg PO DAILY 14 Days Qty: 14 0RF oxycodone 5 mg tablet 5 mg PO Q6H PRN (Reason: pain) Qty: 12 0RF levofloxacin 500 mg tablet 500 mg PO DAILY 14 Days Qty: 14 0RF oxycodone 5 mg tablet 5 mg PO Q6H PRN (Reason: pain) Qty: 12 0RF Discharge Orders: Discharge Order (Routine); Ordered 03/30/24 Ordered By: Aurelia Berrios/Other Patient Handouts: Managing Type 2 Diabetes Admission Data Admit Date/Time: 03/13/24 19:54 Attending Provider: Luzma Ennis Admit Provider: Chepe Daly Primary Care Provider: Dora Sales Other Providers: Caroline Plascencia [facility]; [place]; [place]; Tacho Berman Andrew S.; Chepe Daly Other Interventions: Discharge Summary Assessment (RN) Last Done: 03/30/24 14:19 Hospital Stay Data Consultations 03/13/24 17:26 ED Decision to Admit Stat 03/13/24 20:38 Consult Internal Medicine Routine 03/15/24 09:28 Consult Podiatry Routine 03/18/24 15:10 Consult Infectious Diseases Routine Procedures Performed Operation Date: 03/25/24 11:00 Actual Procedures p Removal of External Fixator Right Lower Extremity, Right Ankle and Subtalar Joint Fusion, Position Directed Flourscopy, Application of Right Lower Extremity Splint(Right) - Dieter Shin, DO Diagnostic Imagining Performed 03/13/24 FL ankle RT 2V Routine 03/14/24 13:23 MRI Foot [MR foot LT w/o con] Routine 03/14/24 15:33 CT foot LT wo con Routine CT foot RT wo con Routine 03/25/24 FL foot RT 3V Routine 03/26/24 12:38 CT angio chest PE protocol Urgent Pending Results Patient Have Any Pending Studies at Discharge: No Discharge Instructions Given to Patient (Per Discharging Provider) Mr. Alvarado, Lance were hospitalized after a fall resulting in an open fracture, this led to surgery with Dr. Daly and IV antibiotics. You had your left toes amputated by Dr. Mccray for concerns of bone infection. You then had you right foot operated on with Dr. Shin for definitive treatment. You have completed your course of antibiotics and will be going to rehab to get stronger. You will need to follow up with Dr. Mccray and Dr. Shin. Also follow up with your PCP within 7 days from discharge from [facility]. There were concerns with your heart rate and concerns for atrial flutter. For this reason you were started on metoprolol and increased the dose of your eliquis. You will need to follow up with Dr. Franco regarding this after discharge from rehab. Medication changes: - Eliquis 5mg twice a day for DVT proh - recommend continuing for at least 4 weeks, possibly longer depending on mobility status, you can discuss with your surgeons at follow up and discuss with cardiology - Librium - started during admission, working on tapering off, should continue 10mg daily x7 days and then can stop - oxycodone as needed for pain, however, pain well controlled here with minimal tylenol. There were concerns with your heart rate and concerns for atrial flutter. For this reason you were started on metoprolol and increased For [facility]: - Patient on multiple medications for diabetes (monjuaro, metformin, jardiance, and insulin) - had hyperglycemic episodes on admission and maintained good glucose control with 25 units basal insulin and sliding scale (goal 110-140, CF 25, CR 1:8). This is significantly less than his home dose (70 units long acting) - suspect related to dietary intake at home. I continued his home regiment at discharge but may need to be adjusted based on the control of diet at your facility. - we were instructed in the hospital to only have Dr. Shin change the right foot dressing, if there are issues would recommend calling the number above. - left foot dressing - changed 03/30, with 4X4s, kerlix and and jordan wrap - concerns for possible aflutter on monitor, not captured on EKG, metoprolol started 03/30 can followup with cardiology Total Time Total Time Spent Total Time Spent (In Minutes): Time spent day of discharge 45 minutes including direct patient care, medication reconciliation, documentation, review of labs and images, and coordination of care. Coding Level of Care Code 26123 INP/OBS DISCH >30 MIN Diagnoses Chronic ulcer of left foot with necrosis of bone L97.524 Type III open fracture dislocation of right ankle, initial encounter S82.891C Encounter type: initial encounter Laterality: right Open fracture type: open type III Diabetic nephropathy associated with type 2 diabetes mellitus E11.21 Tachycardia R00.0 CAD (coronary artery disease) I25.10 Acute postoperative pulmonary insufficiency J95.2 Toxic encephalopathy G92.9 Hypotension I95.9 Acute metabolic encephalopathy G93.41 Morbid obesity with BMI of 50.0-59.9, adult E66.01; Z68.43 Acute blood loss anemia D62
[2024-03-30] MEDS: METOPROLOL SUCC 25MG EXT REL TAB PO STA (13:16)
[2024-03-31] MEDS ORDERED: METOPROLOL SUCC 25MG EXT REL TAB PO SCH (09:00)
--- NOTE | 2024-03-31 09:19 | Electrocardiogram Report ---
Test Reason : Blood Pressure : */* mmHG Vent. Rate : 82 BPM Atrial Rate : 288 BPM P-R Int : 170 ms QRS Dur : 102 ms QT Int : 374 ms P-R-T Axes : 25 -10 81 degrees QTcB Int : 436 ms Probable Sinus rhythm Normal ECG When compared with ECG of 25-Mar-2024 18:33, HR has decreased by 29 bpm Otherwise no significant change Confirmed by Clarke Morgan ([id number]) on 03/31/2024 9:18:46 AM Referred By: REFERRED SELF Confirmed By: Clarke Morgan
== END 2024-03-30 14:28 | DRG 474 ==
LOC: ED 16:02 → OR 17:25 → 3W 19:54 → SUATTDRO 19:54 → 3W 03-16 20:01 → 1E 03-25 19:54 → 2E 03-26 15:10 → 3N 03-29 18:11

== ENCOUNTER 2024-06-18 05:57 | Inpatient (IN) ==
[2024-06-18] MEDS: NITROGLYCERIN SL 0.4 MG/TAB TAB SL STA (06:46)
--- NOTE | 2024-06-18 06:47 | Emergency Department Note ---
Impression & Plan Chest pain, Syncope ED Provider Note Provider: Ariel Mallory MD CHIEF COMPLAINT: Chest pressure HISTORY OF PRESENT ILLNESS: Patient is a 68-year-old gentleman significant past medical history including diabetes, CKD, GERD, PAD, hypertension presenting here today reporting woke overnight around 2:30 in the morning. Evidently had a syncopal episode yesterday at home. States he always send is collapsed to the floor and then woke up there. Did not tell family until this morning. Had a little bit of diarrhea yesterday. Chest pressure central press rating to the arms. No nausea or abdominal pain. Feels somewhat short of breath. No pain to the back or jaw. Nothing for pain prior to arrival. No abdominal pain reported. No history of aspirin usage or cardiac stents but did have a cardiac arrest in the past. Is recovering from ankle surgery several months ago in the right foot in a boot. No significant head pain or neck pain reported. Denies no extremity the injuries from the syncope yesterday. PAST MEDICAL HISTORY: As noted above MEDICATIONS: Reviewed home medications SOCIAL HISTORY: , former smoker PHYSICAL EXAM: GENERAL: alert and oriented in no acute distress on stretcher fatigued in appearance Head: normocephalic and atraumatic EYES: No injection, discharge or icterus. EOMI. NECK: Trachea midline. Supple. ENT: Mucous membranes pink and moist. Pharynx without erythema or exudate. LUNGS: Airway patent. No retractions. Breath sounds clear with good air entry bilaterally. HEART: Regular rate and rhythm. No chest wall tenderness ABDOMEN: Soft and non-tender, without guarding or rebound. SKIN: Acyanotic, warm, dry, without rashes EXTREMITIES: Without tenderness with right foot in a boot and bandaged at the ankle. The left foot is bandaged with prior toe amputations reported. Trace to 1+ edema of the lower extremities noted. NEUROLOGICAL: No focal deficits. No aphasia. No facial droop or slurred speech. EK bpm sinus rhythm without PVC. Perhaps some slightly accentuated diffuse T waves without T wave inversion or ST segment elevation or depression. QTc 425. EKG #2: 73 bpm normal sinus rhythm. No PVC or PAC. No acute ST segment elevation or depression with a QTc of 401 and fairly similar prominent T waves. CONTINUOUS CARDIAC MONITORING: was ordered and showed a heart rate of 60s to 80s bpm in normal sinus rhythm GCS 15 Patient's laboratory studies and imaging reviewed. Differential includes Cardiac ischemia, aortic dissection, pulmonary embolism, pneumothorax, pneumonia, pericarditis, myocarditis, esophageal rupture, GERD, cholecystitis, pancreatitis, musculoskeletal, as well as other pathologies. IMPRESSION/MEDICAL DECISION MAKING: Not hypoxic but short of breath with significant chest discomfort. Syncopal episode yesterday. Denies feeling lightheaded currently or abdominal pain or traumatic injury from the fall. Benign abdomen. No reproducible chest wall pain. Denies headache to me. No fevers reported. EKG obtained initially. Will give some aspirin and nitro on evaluation given his discomfort. Not particular tachycardic or noted to be actually hypoxic. 1 view chest x-ray per my review and interpretation no evidence of pneumothorax or pneumonia. Radiology report questions maybe a bit of pulmonary congestion. Trace swelling of the lower extremities. Is in a boot of the right lower extremity. Review of cardiology note from May this year indicates patient did have a nonobstructive cardiac catheterization in 2021 without stent deployment. Evidently at this time according to family this evaluation was prompted by a cardiac arrest event. Patient is unsure if he is still on low-dose Eliquis or not as indicated in the cardiology note and they will try to check with his who is at home. does later report that he is no longer on anticoagulation. Given the syncope and fall while only having manage chest pain will complete a CT of the head, cervical spine, chest abdomen pelvis without contrast given his history of significant renal dysfunction to evaluate for any occult traumatic injury. Given his lack of significant hypoxia more which is central chest pain without radiation to the back of the lower suspicion at this time for dissection. Pulmonary embolism is possible but again not significantly hypoxic or tachycardic. Significant renal dysfunction precludes CT angiogram. Blood work here today without leukocytosis. Stable mild anemia. No thrombocytopenia. Patient given aspirin and nitroglycerin without change of symptoms. Given some IV fentanyl for pain. Chemistries here without severe electrolyte abnormalities. Chronic CKD noted. No transaminitis of concern for hepatitis and no findings concerning for pancreatitis. Troponin here not elevated at 8.5. CT of the head, cervical spine, chest abdomen pelvis shows per radiology report no significant acute traumatic injury. Incidental small pericardial effusion and some cording calcifications are noted. Patient on reassessment is more comfortable. Still with low but discomfort. Discussed with him the findings which are generally reassuring but with his continued chest discomfort as well as syncopal episode he recently had a and his risk factors do strongly recommend we further observe him and evaluate him here in the hospital. He and his are agreeable. Hospitalist team was contacted. DIAGNOSIS: Chest pain, syncope DISPOSITION: Hospitalist will evaluate Patient was agreeable with this plan. Past Med/Surg History Problem List (Updated 06/18/24 @ 12:08 by Marcin Pimentel PA-C) Pulmonary embolism Pericardial effusion Syncope (Acute) Chest pain (Acute) Open fracture dislocation of right ankle Diabetic neuropathy Chronic ulcer of left foot with necrosis of bone Morbid obesity with BMI of 50.0-59.9, adult Tachycardia [place] (dyspnea on exertion) Venous ulcer of right leg Diabetic foot ulcer (Acute) Chronic constipation Chronic venous insufficiency Urinary urgency Diabetic nephropathy associated with type 2 diabetes mellitus CKD stage 3 due to type 2 diabetes mellitus Diabetes type 2, controlled Class 3 obesity Status post partial amputation of foot Complex sleep apnea syndrome Nocturnal hypoxemia Psoriasis (Chronic) Nonproliferative diabetic retinopathy (Chronic) Disc degeneration, lumbar (Chronic) Diabetes mellitus with diabetic polyneuropathy (Chronic) Depression (Chronic) GERD (gastroesophageal reflux disease) (Chronic) CAD (coronary artery disease) (Chronic) Chronic, heavily calcified severe mid LAD disease (70 to 80% by IVUS) per 11/05/21 cardiac cath- medically managed Hypertension (Chronic) PAD (peripheral artery disease) (Chronic) Dyslipidemia (Chronic) CKD (chronic kidney disease) (Chronic) Cardiopulmonary arrest with successful resuscitation (Chronic) - 11/06/2021, [facility]>"in to have a PICC line placed for abx tx, flatlined" - Etiology of arrest seems unclear- seems that this was a PEA arrest per 11/06/21 cardio note BPH loc w urin obs/LUTS (Chronic Unknown) Medical History (Updated 06/18/24 @ 12:08 by Marcin Pimentel PA-C) Hx MRSA infection History of colon polyps Surgical History (Updated 04/01/24 @ 00:06 by Richie Gauthier) H/O kyphoplasty (2022) following L1 burst fracture Status post amputation of toe of left foot History of cardiac cath following an unexplained cardiac arrest>per medical record>11/05/21, [facility], no stents Status post amputation of left great toe History of incision and drainage Hx of I&D of mendel-rectal abscess History of cataract surgery bilt History of cholecystectomy History of tooth extraction History of colonoscopy Colonoscopy 01/21/[address] Garg. History of adenoidectomy History of tonsillectomy Status post uvulopalatopharyngoplasty S/P foot surgery, left Family History Mother Family history of diabetes mellitus Father History of alcoholism History of liver cancer Sister Cancer Denies family history of Ovarian cancer Prostate cancer Crohn's disease Breast cancer Colorectal cancer Social History Smoking Status: Unknown if ever smoked Tobacco Type: Declines Age Started Using Tobacco: 18; Age Quit Using Tobacco: 48; packs per day: 1.5; Second Hand Exposure: No; Do You Dip or Chew Tobacco: No; Hx Alcohol Use: Yes Alcohol type: wine Alcohol Intake Frequency: Monthly or Less Hx Substance Use: No Preferred Language: Thai Communication Ability: Effective Visual Impairment: No Limitations Hearing Ability: Normal Digital Imaging Technician Required: No Beliefs That Will Affect Care: None marital status: Current Living Situation: Spouse Current Living Situation Comment: Lives with and dog current occupational status: employed 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 Feels Safe at Home: Yes Childhood Exposure to Second-Hand Smoke: Yes Diet: regular Diet Comment: "tries to feed me right, but sometimes it doesn't always happen" caffeine: Yes during the past year weight has: remained stable Physical Activity Frequency: Does not Exercise Seatbelt Use: never Do you think of yourself as: straight/heterosexual Assistive Devices: None Allergies Allergies Allergy/AdvReac Type Severity Reaction Status Date / Time No Known Allergies Allergy Verified 06/18/24 07:28 Home Meds Home Medications Medication Instructions Recorded Confirmed lancets (Accu-Chek Fastclix Lancet 08/23/20 05/20/24 Andreia) cyanocobalamin (vitamin B-12) 1,000 mcg PO DAILY 12/26/23 06/18/24 1,000 mcg capsule cholecalciferol (vitamin D3) 25 25 mcg PO DAILY 03/01/24 06/18/24 mcg (1,000 unit) tablet (Vitamin D3) melatonin 10 mg capsule 10 mg PO HS PRN Sleep 05/14/24 06/18/24 acetaminophen 650 mg 650 mg PO Q6H 05/20/24 06/18/24 tablet,extended release (Tylenol 8 Hour) insulin lispro 100 unit/mL 10 unit subcut BID 05/20/24 06/18/24 subcutaneous pen tadalafil 2.5 mg tablet 2.5 mg PO UD 06/18/24 06/18/24 tirzepatide 2.5 mg/0.5 mL 2.5 mg subcut UD 06/18/24 06/18/24 subcutaneous pen injector (Rachel) Previous Rx's Medication Instructions Recorded FreeStyle Remigio 2 [place] (flash #1 ea 01/24/21 glucose scanning reader) FreeStyle Remigio 2 Sensor (flash #7 ea 01/24/21 glucose sensor) metformin 500 mg tablet 500 mg PO BID 90 days #180 tabs 06/24/23 pantoprazole 40 mg tablet,delayed 40 mg PO BID #180 tabs 09/09/23 release (Protonix) sodium zirconium cyclosilicate 10 10 g PO DAILY #30 ea 01/29/24 gram oral powder packet atorvastatin 10 mg tablet (Lipitor) 10 mg PO HS #90 tabs 02/24/24 duloxetine 20 mg capsule,delayed 20 mg PO BID #180 caps 02/24/24 release (Cymbalta) empagliflozin 25 mg tablet 25 mg PO QAM #90 tabs 02/24/24 (Jardiance) pen needle, diabetic 31 gauge x #400 ea 02/24/2406/20" (BD Ultra-Fine Mini Pen Needle) oxycodone 5 mg tablet 5 mg PO Q6H PRN pain #30 tabs 03/15/24 albuterol sulfate 90 mcg/actuation 2 puff inhalation Q6H PRN 05/20/24 aerosol inhaler shortness of breath or wheezing #6.7 grams furosemide 20 mg tablet (Lasix) 20 mg PO DAILY #90 tabs 05/20/24 metoprolol succinate 25 mg 25 mg PO DAILY #90 tabs 05/20/24 tablet,extended release 24 hr tamsulosin 0.4 mg capsule 0.4 mg PO HS #30 caps 05/20/24 Saccharomyces boulardii 250 mg 250 mg PO BID #60 caps 05/25/24 capsule (Florastor) blood sugar diagnostic (OneTouch #100 ea 05/25/24 Verio test strips) blood-glucose meter (OneTouch #1 ea 05/25/24 Verio Flex Meter) insulin glargine 100 unit/mL (3 10 unit (0.1 mL) subcut QAM #15 mL 05/25/24 mL) subcutaneous pen (Basaglar KwikPen U-100 Insulin) Results & Data (ED) Vital Signs Vital Signs - 24 hr 06/18/24 06:00 06/18/24 06:14 06/18/24 06:37 Temperature 37.1 C Temperature Source Oral Pulse Rate 67 80 Pulse Rate [Apical] Pulse Rhythm [Apical] Pulse Strength [Apical] Respiratory Rate 18 Respiratory Effort / Characteristics Non-Labored Spontaneous SOB on Exertion Respiratory Depth Normal Respiratory Pattern Blood Pressure 128/77 Blood Pressure [Right Arm] Blood Pressure Mean 94 Blood Pressure Mean [Right Arm] Pulse Oximetry 99 Oxygen Delivery Method Room Air Oxygen Flow Rate Sepsis Recent Fever Within 48 Hours No Sepsis New/Unexplained Change in Mental Status N/A Sepsis Action Taken by Nursing No Action Required 06/18/24 06:37 06/18/24 07:00 06/18/24 08:00 Temperature Temperature Source Pulse Rate Pulse Rate [Apical] 82 63 63 Pulse Rhythm [Apical] Regular Regular Pulse Strength [Apical] Normal Normal Respiratory Rate 17 18 20 Respiratory Effort / Characteristics Spontaneous Spontaneous Respiratory Depth Normal Normal Normal Respiratory Pattern Regular Regular Blood Pressure Blood Pressure [Right Arm] 141/95 H 125/79 121/77 Blood Pressure Mean Blood Pressure Mean [Right Arm] 110 94 91 Pulse Oximetry 100 100 97 Oxygen Delivery Method Nasal Cannula Room Air Room Air Oxygen Flow Rate 2 Sepsis Recent Fever Within 48 Hours Sepsis New/Unexplained Change in Mental Status Sepsis Action Taken by Nursing 06/18/24 10:00 06/18/24 10:04 06/18/24 11:00 Temperature Temperature Source Pulse Rate 62 Pulse Rate [Apical] 72 Pulse Rhythm [Apical] Regular Pulse Strength [Apical] Respiratory Rate 20 Respiratory Effort / Characteristics Spontaneous Respiratory Depth Normal Respiratory Pattern Regular Blood Pressure Blood Pressure [Right Arm] 140/71 Blood Pressure Mean Blood Pressure Mean [Right Arm] 94 Pulse Oximetry 97 100 Oxygen Delivery Method Room Air Nasal Cannula Oxygen Flow Rate 2 Sepsis Recent Fever Within 48 Hours Sepsis New/Unexplained Change in Mental Status Sepsis Action Taken by Nursing Laboratory Data 06/18/24 06:18 06/18/24 06:18 Lab Results 06/18/24 06/18/24 06/18/24 Range/Units 06:18 10:12 10:39 WBC 8.85 (4.8-10.8) K/ul RBC 4.27 L (4.70-6.10) M/uL Hgb 11.2 L (14.0-18.0) g/dl Hct 34.7 L (42.0-52.0) % MCV 81.3 (80.0-100.0) fL MCH 26.2 (25.0-34.0) pg MCHC 32.3 (32.0-36.0) g/dL RDW Std Deviation 44.1 (36.4-46.3) fL RDW Coeff of Mejia 15.1 H (11.5-14.5) % Plt Count 170 (130-400) K/uL MPV 9.3 L (9.4-12.4) fL Immature Gran % (Auto) 0.6 % Neut % (Auto) 71.8 % Lymph % (Auto) 13.2 % [place] % (Auto) 12.2 % Eos % (Auto) 1.7 % Baso % (Auto) 0.5 % Neut # (Auto) 6.36 (1.40-6.50) K/uL Lymph # (Auto) 1.17 L (1.20-3.40) K/uL [place] # (Auto) 1.08 H (0.11-0.59) K/uL Eos # (Auto) 0.15 (0.00-0.50) K/uL Baso # (Auto) 0.04 (0.00-0.20) K/uL Immature Gran # (Auto) 0.05 (0.01-0.20) K/uL APTT 27 (21-31) Seconds PTT Ratio 1.0 D-Dimer 710 H* (0-500) ug/L FEU Sodium 136 (136-145) mmol/L Potassium 4.5 (3.5-5.1) mmol/L Chloride 104 (98-107) mmol/L Carbon Dioxide 23 (21-32) mmol/L Anion Gap 9 (3-11) BUN 45 H (6-23) mg/dl Creatinine 2.10 H (0.6-1.4) mg/dl Est Cr Clr Drug Dosing Not Reportable eGFR 33.66 BUN/Creatinine Ratio 21.4 H (10-20) Glucose 184 H (70-99(Fasting)) mg/dl Calcium 9.5 (8.6-10.3) mg/dl Total Bilirubin 0.5 (0.2-1.0) mg/dl AST 11 L (13-39) U/L ALT 6 L (7-52) U/L Alkaline Phosphatase 137 H (34-104) U/L Troponin I High Sens 8.5 9.4 (0-20) pg/ml Total Protein 8.0 (6.0-8.3) gm/dl Albumin 3.8 (3.4-5.0) gm/dl Globulin 4.2 H (2.5-4.0) gm/dl Albumin/Globulin Ratio 0.9 (0.9-2) Lipase 30 (11-82) U/L Administered Medications Heparin Sodium/Dextrose (Heparin 94878 Unit/500 Ml D5w) 25,000 units in 500 mls @ 36 mls/hr IV .[id number] [facility]; Protocol Stop: 07/18/24 12:14 Last Admin: 06/18/24 12:33 Dose: 1,800 units/hr, 36 mls/hr Documented By: ALEJANDRA Co-signed By: JOSE DANIEL Discontinued Medications Aspirin (Aspirin 81 Mg Chew) 324 mg PO NOW STA Stop: 06/18/24 06:40 Last Admin: 06/18/24 06:48 Dose: 324 mg Documented By: MICHAEL Fentanyl Citrate (Fentanyl Citrate Pf 100 Mcg/2 Ml Vial) 50 mcg IV NOW STA Stop: 06/18/24 07:00 Last Admin: 06/18/24 07:15 Dose: 50 mcg Documented By: NA Heparin Sodium (Porcine) (Heparin Sod (Porcine) 1000 Unit/Ml) 8,000 units IV NOW ONE Stop: 06/18/24 12:16 Last Admin: 06/18/24 12:33 Dose: 8,000 units Documented By: ALEJANDRA Co-signed By: JOSE DANIEL Hydromorphone HCl (Hydromorphone Inj 0.5 Mg/0.5 Ml Syr) 0.5 mg IV NOW STA Stop: 06/18/24 10:41 Last Admin: 06/18/24 11:36 Dose: 0.5 mg Documented By: ALEJANDRA Miscellaneous (Patient's Weight Needed) 1 each N/A NOW STA Stop: 06/18/24 11:40 Last Admin: 06/18/24 12:01 Dose: 1 each Documented By: ALEJANDRA Nitroglycerin (Nitroglycerin Sl 0.4 Mg/Tab Tab) 0.4 mg SL NOW STA Stop: 06/18/24 06:40 Last Admin: 06/18/24 06:46 Dose: 0.4 mg Documented By: EMB Imaging Data Radiologist's Impression: Chest X-Ray 06/18/24 06:00 EXAM: XR chest 1V portable CLINICAL HISTORY: Chest pain. TECHNIQUE: An X-ray image of the chest is obtained in AP projection. COMPARISON: Prior study dated 03/25/2024 FINDINGS: Pulmonary Parenchyma: Prominent broncho vascular markings with diffuse alveolar opacities and prominent lay are seen, suggesting pulmonary congestion No evidence of pleural effusion or pleural thickening. Heart and Mediastinum: Apparent cardiomegaly Bony Thorax: Thoracic spondylosis The bony thorax appears intact without fractures or deformities. Soft Tissues: Soft tissues overlying the chest wall are unremarkable. IMPRESSION: 1. Prominent broncho vascular markings with diffuse alveolar opacities and prominent lay are seen, suggesting pulmonary congestion 2. Apparent cardiomegaly. 3. No interval chnages. Electronically signed by Nomi Walters 06-18-2024 07:17 AM Abdomen/Pelvis CT 06/18/24 07:04 CT OF THE ABDOMEN AND PELVIS WITHOUT CONTRAST CLINICAL HISTORY: Syncope. Fall. COMPARISON STUDY: CT of the abdomen and pelvis March 05, 2023. TECHNIQUE: Axial images of the abdomen and pelvis were obtained without IV contrast. Images were reviewed in the axial, sagittal, and coronal planes. Automated exposure control was utilized for the study. A dose lowering technique was utilized adhering to the principles of ALARA. FINDINGS: A small pericardial effusion is noted. The heart is mildly enlarged. No hemoperitoneum or pneumoperitoneum is present. Solid abdominal viscera are suboptimally assessed on unenhanced exam but there is no evidence for traumatic injury to the liver, spleen, adrenal glands, kidneys or pancreas. Low attenuation 2.4 cm left adrenal nodule is unchanged. This represents an adenoma. There is no biliary ductal dilatation status post cholecystectomy. Caliber is no evidence for a bowel obstruction. No free fluid is present. Postprocedural appearance of an L1 vertebroplasty is unchanged. There are no acute fractures within the lumbar spine, pelvis or hips. IMPRESSION: 1. No acute traumatic findings within the abdomen or pelvis on unenhanced exam. 2. No acute fractures. 3. Small pericardial effusion. ACT 112: Negative or not required by law. Electronically signed by: Guillaume Sales M.D. 06/18/2024 8:[address] 06/18/24 07:04 CT cervical spine wo con CT DOSE: 3731.05mGy*cm CLINICAL HISTORY: sycnope, fall, CP. COMPARISON: None TECHNIQUE: Multiple axial CT images of the cervical spine were obtained without contrast. Sagittal and coronal reconstructions were performed. A dose lowering technique was utilized adhering to the principles of ALARA. FINDINGS: There is no evidence of acute fracture or traumatic malalignment. There is reversal of mid and lower cervical lordosis. There is multilevel spondylosis with foraminal narrowing most pronounced at C5-6 and C6-7. The prevertebral soft tissues are not swollen. The odontoid and atlantoaxial articulation are intact. No soft tissue lesions are identified. IMPRESSION: No acute traumatic cervical spine injury identified. ACT 112: Negative or not required by law. The above report was generated using voice recognition software. It may contain grammatical, syntax or spelling errors. Electronically signed by: Lazara Quintero M.D. 06/18/2024 8:[address] 06/18/24 07:04 CT OF THE CHEST WITHOUT IV CONTRAST CLINICAL HISTORY: Syncope. Chest pain following fall. COMPARISON STUDY: Chest CT March 26, 2024. Chest radiograph performed earlier today. TECHNIQUE: Axial images of the chest were obtained without IV contrast. Images were reviewed in the axial, sagittal, and coronal planes. IV contrast was not administered for this examination. Automated exposure control was utilized for the study. A dose lowering technique was utilized adhering to the principles of ALARA. FINDINGS: Thoracic aorta is suboptimally assessed on unenhanced exam but there is no mediastinal hematoma or seroma. The heart is mildly enlarged. There is moderate coronary artery calcification. A small pericardial effusion has developed since chest CT of March 26, 2024. There is no pneumothorax or pleural effusion. No pulmonary contusion. No suspicious pulmonary nodules are present. No acute thoracic spine fractures are present. There are old bilateral rib fractures. No acute rib fractures are identified. Subpleural groundglass opacities represent atelectasis. IMPRESSION: 1. No acute traumatic findings within the chest on unenhanced exam. 2. Interval development of a small pericardial effusion. 3. Cardiomegaly and moderate coronary artery calcification. ACT 112: Negative or not required by law. Electronically signed by: Guillaume Sales M.D. 06/18/2024 8:[address] 06/18/24 07:04 CT head/brain wo con CLINICAL HISTORY: syncope, fall, CP. TECHNIQUE: Multiple axial CT images of the head were obtained without contrast. Sagittal and coronal reconstructions were performed. A dose lowering technique was utilized adhering to the principles of ALARA. CT DOSE: 3731.05mGy*cm COMPARISON: 11/05/2021 FINDINGS: There is no intra-axial or extra-axial fluid collection, hemorrhage, or mass. There is no midline shift. Diminished attenuation in the periventricular white matter is usually attributable to small vessel insufficiency. There is no skull fracture identified. IMPRESSION: No acute intracranial process. ACT 112: Negative or not required by law. The above report was generated using voice recognition software. It may contain grammatical, syntax or spelling errors. Electronically signed by: Lazara Quintero M.D. 06/18/2024 8:33 AM Discharge Plan Visit Data Chief Complaint: Chest Pain Stated Complaint: CHEST PAIN ED Provider: Ariel Mallory Discharge Problem: Chest pain, Syncope Patient Disposition: Being Evaluated by Hospitalist Forms Stand Alone Forms: [facility] [employer] Prescriptions Prescriptions: No Action cyanocobalamin (vitamin B-12) 1,000 mcg capsule 1,000 mcg PO DAILY (DME) FreeStyle Remigio 2 [place] Misc See Rx Instructions .Route Qty: 1 0RF Rx Instructions: Use to monitor blood sugars daily (DME) FreeStyle Remigio 2 Sensor Kit See Rx Instructions .Route Qty: 7 3RF Rx Instructions: Change sensor every 14 days metformin 500 mg tablet 500 mg PO BID 90 Days Qty: 180 3RF pantoprazole [Protonix] 40 mg tablet,delayed release (DR/EC) 40 mg PO BID Qty: 180 2RF sodium zirconium cyclosilicate 10 gram powder in packet 10 g PO DAILY Qty: 30 2RF Patient Comments: doesn't always take it every day Rx Instructions: 2 HOURS AFTER MEDS GIVEN. duloxetine [Cymbalta] 20 mg capsule,delayed release(DR/EC) 20 mg PO BID Qty: 180 3RF Jardiance 25 mg tablet 25 mg PO QAM Qty: 90 3RF atorvastatin [Lipitor] 10 mg tablet 10 mg PO HS Qty: 90 3RF (DME) pen needle, diabetic [BD Ultra-Fine Mini Pen Needle] 31 gauge x 3/16" needle .ROUTE .MEDSUPPLY Qty: 400 3RF Rx Instructions: use 4 needles daily insulin glargine [Basaglar KwikPen U-100 Insulin] 100 unit/mL (3 mL) insulin pen 10 unit subcut QAM Qty: 15 3RF Rx Instructions: ( states dc CC 05/19 pt started mounjaro 2.5 mg and decreased dose to 10 units instead of 80 due to bsg's low) (DME) blood-glucose meter [OneTouch Verio Flex meter] Misc See Rx Instructions .ROUTE .MEDSUPPLY Qty: 1 0RF Rx Instructions: use to test blood sugar As directed (DME) OneTouch Verio test strips Strip See Rx Instructions .ROUTE .MEDSUPPLY Qty: 100 3RF Rx Instructions: test blood sugar one time daily (DME) lancets [Accu-Chek Fastclix Lancet Drum] Mis See Rx Instructions .ROUTE .MEDSUPPLY Rx Instructions: test blood sugar 1 x daily melatonin 10 mg capsule 10 mg PO HS PRN (Reason: Sleep) Saccharomyces boulardii [Florastor] 250 mg capsule 250 mg PO BID Qty: 60 5RF albuterol sulfate 90 mcg/actuation HFA aerosol inhaler 2 puff inhalation Q6H PRN (Reason: shortness of breath or wheezing) Qty: 6.7 0RF insulin lispro 100 unit/mL insulin pen 10 unit subcut BID Rx Instructions: New DC CC 05/19/24 tamsulosin 0.4 mg capsule 0.4 mg PO HS Qty: 30 5RF Rx Instructions: ( NOT SURE IF PATIENT IS ON THIS MED) acetaminophen [Tylenol 8 Hour] 650 mg tablet extended release 650 mg PO Q6H furosemide [Lasix] 20 mg tablet 20 mg PO DAILY Qty: 90 3RF metoprolol succinate 25 mg tablet extended release 24 hr 25 mg PO DAILY Qty: 90 3RF cholecalciferol (vitamin D3) [Vitamin D3] 25 mcg (1,000 unit) tablet 25 mcg PO DAILY tadalafil 2.5 mg tablet 2.5 mg PO UD Rx Instructions: 2.5 mg po daily. not sure on this one, has list at home. Mounjaro 2.5 mg/0.5 mL pen injector 2.5 mg subcut UD Rx Instructions: 06/18- today is his shot day and was supposed to move up to 5 mg. oxycodone 5 mg tablet 5 mg PO Q6H PRN (Reason: pain) Qty: 30 0RF Referrals Referrals: Dora Sales MD [Primary Care Provider] -
[2024-06-18] MEDS: ASPIRIN 81 MG CHEW PO STA (06:48)
[2024-06-18 06:52] LABS: Basophils # (auto) 0.04 K/uL (0.00-0.20); Basophils % (auto) 0.5 %; Eosinophils # (auto) 0.15 K/uL (0.00-0.50); Eosinophils % (auto) 1.7 %; Hematocrit (blood only) 34.7 % (42.0-52.0); Hemoglobin 11.2 g/dl (14.0-18.0); Immature Granulocytes # (auto) 0.05 K/uL (0.01-0.20); Immature Granulocytes % (auto) 0.6 %; Lymphocytes # (auto) 1.17 K/uL (1.20-3.40); Lymphocytes % (auto) 13.2 %; Mean Corpuscular Hemoglobin 26.2 pg (25.0-34.0); Mean Corpuscular Hgb Conc 32.3 g/dL (32.0-36.0); Mean Corpuscular Volume 81.3 fL (80.0-100.0); Mean Platelet Volume 9.3 fL (9.4-12.4); Monocytes # (auto) 1.08 K/uL (0.11-0.59); Monocytes % (auto) 12.2 %; Neutrophils # (auto) 6.36 K/uL (1.40-6.50); Neutrophils % (auto) 71.8 %; Platelet Count 170 K/uL (130-400); RDW Coefficient of Variation 15.1 % (11.5-14.5); RDW Standard Deviation 44.1 fL (36.4-46.3); Red Blood Count 4.27 M/uL (4.70-6.10); White Blood Count 8.85 K/ul (4.8-10.8)
[2024-06-18 07:06] LABS: Albumin Level 3.8 gm/dl (3.4-5.0); Anion Gap 9 (3-11); Bilirubin,Total 0.5 mg/dl (0.2-1.0); Calcium 9.5 mg/dl (8.6-10.3); Carbon Dioxide 23 mmol/L (21-32); Chloride 104 mmol/L (98-107); Potassium 4.5 mmol/L (3.5-5.1); Sodium 136 mmol/L (136-145)
[2024-06-18 07:12] LABS: Alanine Aminotransferase 6 U/L (7-52); Albumin Globulin Ratio 0.9 (0.9-2); Alkaline Phosphatase 137 U/L (34-104); Aspartate Aminotransferase 11 U/L (13-39); BUN Creatinine Ratio 21.4 (10-20); Blood Urea Nitrogen 45 mg/dl (6-23); Globulin 4.2 gm/dl (2.5-4.0); Glucose 184 mg/dl (70-99(Fasting)); Lipase 30 U/L (11-82)
[2024-06-18 07:13] LABS: Troponin I High Sensitivity 8.5 pg/ml (0-20)
[2024-06-18] MEDS: fentaNYL citrate PF 100 MCG/2 ML VIAL IV STA (07:15)
--- NOTE | 2024-06-18 07:17 | XRay Report ---
EXAM: XR chest 1V portable CLINICAL HISTORY: Chest pain. TECHNIQUE: An X-ray image of the chest is obtained in AP projection. COMPARISON: Prior study dated 03/25/2024 FINDINGS: Pulmonary Parenchyma: Prominent broncho vascular markings with diffuse alveolar opacities and prominent lay are seen, suggesting pulmonary congestion No evidence of pleural effusion or pleural thickening. Heart and Mediastinum: Apparent cardiomegaly Bony Thorax: Thoracic spondylosis The bony thorax appears intact without fractures or deformities. Soft Tissues: Soft tissues overlying the chest wall are unremarkable. IMPRESSION: 1. Prominent broncho vascular markings with diffuse alveolar opacities and prominent lay are seen, suggesting pulmonary congestion 2. Apparent cardiomegaly. 3. No interval chnages. Electronically signed by Nomi Walters 06-18-2024 07:17 AM
--- NOTE | 2024-06-18 08:34 | CT Scan Report ---
CT head/brain wo con CLINICAL HISTORY: syncope, fall, CP. TECHNIQUE: Multiple axial CT images of the head were obtained without contrast. Sagittal and coronal reconstructions were performed. A dose lowering technique was utilized adhering to the principles of ALARA. CT DOSE: 3731.05mGy*cm COMPARISON: 11/05/2021 FINDINGS: There is no intra-axial or extra-axial fluid collection, hemorrhage, or mass. There is no m idline shift. Diminished attenuation in the periventricular white matter is usually attributable to s mall vessel insufficiency. There is no skull fracture identified. IMPRESSION: No acute intracranial process. ACT 112: Negative or not required by law. The above report was generated using voice recognition software. It may contain grammatical, syntax o r spelling errors. Electronically signed by: Lazara Quintero M.D. 06/18/2024 8:33 AM
--- NOTE | 2024-06-18 08:37 | CT Scan Report ---
CT cervical spine wo con CT DOSE: 3731.05mGy*cm CLINICAL HISTORY: sycnope, fall, CP. COMPARISON: None TECHNIQUE: Multiple axial CT images of the cervical spine were obtained without contrast. Sagittal an d coronal reconstructions were performed. A dose lowering technique was utilized adhering to the prin ciples of CARLEE. FINDINGS: There is no evidence of acute fracture or traumatic malalignment. There is reversal of mid and lower cervical lordosis. There is multilevel spondylosis with foraminal narrowing most pronounced at C5-6 and C6-7. The prevertebral soft tissues are not swollen. The odontoid and atlantoaxial artic ulation are intact. No soft tissue lesions are identified. IMPRESSION: No acute traumatic cervical spine injury identified. ACT 112: Negative or not required by law. The above report was generated using voice recognition software. It may contain grammatical, syntax o r spelling errors. Electronically signed by: Lazara Quintero M.D. 06/18/2024 8:36 AM
--- NOTE | 2024-06-18 08:37 | CT Scan Report ---
CT OF THE CHEST WITHOUT IV CONTRAST CLINICAL HISTORY: Syncope. Chest pain following fall. COMPARISON STUDY: Chest CT March 26, 2024. Chest radiograph performed earlier today. TECHNIQUE: Axial images of the chest were obtained without IV contrast. Images were reviewed in the axial, sagittal, and coronal planes. IV contrast was not administered for this examination. Automat ed exposure control was utilized for the study. A dose lowering technique was utilized adhering to t he principles of ALARA. FINDINGS: Thoracic aorta is suboptimally assessed on unenhanced exam but there is no mediastinal hem atoma or seroma. The heart is mildly enlarged. There is moderate coronary artery calcification. A sma ll pericardial effusion has developed since chest CT of March 26, 2024. There is no pneumothorax o r pleural effusion. No pulmonary contusion. No suspicious pulmonary nodules are present. No acute tho racic spine fractures are present. There are old bilateral rib fractures. No acute rib fractures are identified. Subpleural groundglass opacities represent atelectasis. IMPRESSION: 1. No acute traumatic findings within the chest on unenhanced exam. 2. Interval development of a small pericardial effusion. 3. Cardiomegaly and moderate coronary artery calcification. ACT 112: Negative or not required by law. Electronically signed by: Guillaume Sales M.D. 06/18/2024 8:35 AM
--- NOTE | 2024-06-18 08:40 | CT Scan Report ---
CT OF THE ABDOMEN AND PELVIS WITHOUT CONTRAST CLINICAL HISTORY: Syncope. Fall. COMPARISON STUDY: CT of the abdomen and pelvis March 05, 2023. TECHNIQUE: Axial images of the abdomen and pelvis were obtained without IV contrast. Images were revi ewed in the axial, sagittal, and coronal planes. Automated exposure control was utilized for the murali dy. A dose lowering technique was utilized adhering to the principles of ALARA. FINDINGS: A small pericardial effusion is noted. The heart is mildly enlarged. No hemoperitoneum or p neumoperitoneum is present. Solid abdominal viscera are suboptimally assessed on unenhanced exam but there is no evidence for traumatic injury to the liver, spleen, adrenal glands, kidneys or pancreas. Low attenuation 2.4 cm left adrenal nodule is unchanged. This represents an adenoma. There is no bili roxy ductal dilatation status post cholecystectomy. Caliber is no evidence for a bowel obstruction. No free fluid is present. Postprocedural appearance of an L1 vertebroplasty is unchanged. There are no acute fractures within the lumbar spine, pelvis or hips. IMPRESSION: 1. No acute traumatic findings within the abdomen or pelvis on unenhanced exam. 2. No acute fractures. 3. Small pericardial effusion. ACT 112: Negative or not required by law. Electronically signed by: Guillaume Sales M.D. 06/18/2024 8:39 AM
--- NOTE | 2024-06-18 09:22 | History & Physical Report ---
Date of Service June 18, 2024 Assessment & Plan (1) Pulmonary embolism: (2) Chest pain: (3) Syncope: Plan ADDENDUM 14:00: Alerted by nursing staff that an EKG was obtained at bedside, as patient's heart rate became irregular on telemetry. EKG showed atrial fibrillation with RVR, and did read as a possible STEMI. This EKG was reviewed/compared against previous EKGs by both Dr. Simon and myself. It does appear that the patient may have some mild ST elevations in leads II, III, and aVF at baseline (may be secondary to underlying CAD). Clinically, patient denies that chest pain at this time, and reports his chest pain has actually significantly improved from prior. He is currently on IV heparin at this time. Will obtain stat troponin. Enrique presented on the morning of 06/18 for squeezing, substernal chest pain that woke him from sleep at 0300. Coming in for suspected pulmonary embolism. #Chest pain H/o cardiac arrest + significant cardiac RFs Troponin WNL x 2 EKG without acute changes Cardiology was consulted on admission due to patient's cardiac history, and chest pain refractory to initial treatments (nitro, aspirin, and fentanyl) Agree with cardiology that - given hours of chest pain with a non-elevated troponin - noncardiac etiology is more likely Continue to monitor on telemetry for now Chest CT revealed no acute findings; interval development of small pericardial effusion + cardiomegaly Echocardiogram ordered, pending Leading DDx on arrival includes pulmonary embolism (among other etiologies) #Syncopal episode on 06/17/suspected pulmonary embolism Patient is unsure if he just fell or blacked out; does not believe he hit his head Head/cervical spine CT revealed no acute or traumatic findings Patient does endorse pleuritic CP on admission Additionally, he recently had surgery on his RLE and is not currently anticoagulated While patient is non-tachycardic or hypoxic on admission, D-dimer ordered to rule out PE If (+) will empirically heparinize (due to kidney function cannot obtain chest CTA), and order US Dopplers bilaterally #Remote history of right ankle fracture Open fracture, dislocation of the right ankle on 03/13 with ORIF and washout; rem oval of external fixator, right ankle subtalar joint fusion 03/25 Discharged from the hospital on Eliquis; however, Eliquis was discontinued on 05/25 Not currently on anticoagulation #History of cardiac arrest Noted; cardiac cath on 11/05/2021 revealed severe mid LAD disease (70 to 80% by IVUS) #CKD BUN 45, creatinine 2.10 (around baseline) on admission Avoid nephrotoxic agents where possible #T2DM Last A1c at 6.0% on 03/17/2024 Hold metformin, empagliflozin, Mounjaro Patient normally takes Lantus 10 units QAM Lantus 5 u BID while inpatient SSI with target BSG range 110-140mg/dL, CF 50, carb ratio 15 T2DM diet BSG ACHS Adjust regimen as needed AM A1c Chronic stable conditions: #HLDatorvastatin #GERDpantoprazole #BPHtamsulosin Disposition: Admit to PCU telemetry Full code Heart healthy, T2DM diet VTE PPx: Heparin IV History of Present Illness Chief Complaint: Chest pain Primary Care Provider: Dora Sales MD Enrique is a 68-year-old male with PMH of cardiac arrest (approximately 3 years ago), CAD, GERD, HTN, PAD, dyslipidemia, and diabetes. He presented on 06/18 for squeezing, substernal chest pain that woke him from sleep around 0300 this morning. Patient reports the pain is constant; rates it 8/10 at worst, and 5/10 after receiving pain medicine (fentanyl) in the emergency department. The pain was initially not improved with nitroglycerin. The pain does not radiate to his back, but does radiate to his shoulders bilaterally. He is unsure if it feels similar to his past episode of cardiac arrest. He is unsure if it is worse with exertion. Patient has not had anything to eat today. He does report that it is painful to take deep breaths in and out. No prior history of DVT/PE. He is not currently on blood thinners. Additionally, patient may have experienced a syncopal episode yesterday. He was standing at his kitchen sink, when he began to feel a "funny sensation" in his body. He reports this could have been dizziness or lightheadedness. He then ended up on the floor. He is unsure how long he was on the floor for, but does not believe he struck his head. Patient lives with his , but she was at work at the time so this was unwitnessed. Patient ambulates with a walker at home. Patient did not take his regular morning medicine today; no recent change in medications. His manages the medication at home. Patient denies history of heart stents; not currently on aspirin and Plavix. No sick contacts. No recent change in diet. He denies any recent injuries to his chest wall. He does have a history of pancreatitis. He denies smoking, tobacco use, chewing tobacco, or recent alcohol use. Patient reports that he is not currently on blood thinners; he was previously on anticoagulation following his right ankle surgery in March, but his Eliquis was discontinued 1 month ago. He denies bleeding disorders or any problems with being on blood thinners or antiplatelets in the past; he denies history of GI bleeds, brain bleeds, or stroke. He does have a grandson who is 3 to 4 months old (born the day before ). Patient's vitals are stable at time of admission. ED course: Aspirin 324 mg p.o. 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 Patient denies fever, chills, nightsweats, dizziness/lightheadedness with walking around, headache, chest palpitations, hemoptysis, abdominal pain, N/V, burning with urination, or blood in the urine/stool. Allergies Allergy/AdvReac Type Severity Reaction Status Date / Time No Known Allergies Allergy Verified 06/18/24 07:28 Home Medications Medication Instructions Recorded Confirmed Type lancets (Accu-Chek Fastclix Lancet 08/23/20 05/20/24 History Drum) FreeStyle Remigio 2 Osprey (flash #1 ea 01/24/21 05/20/24 Rx glucose scanning reader) FreeStyle Remigio 2 Sensor (flash #7 ea 01/24/21 05/20/24 Rx glucose sensor) metformin 500 mg tablet 500 mg PO BID 90 days #180 tabs 06/24/23 06/18/24 Rx pantoprazole 40 mg tablet,delayed 40 mg PO BID #180 tabs 09/09/23 06/18/24 Rx release (Protonix) cyanocobalamin (vitamin B-12) 1,000 mcg PO DAILY 12/26/23 06/18/24 History 1,000 mcg capsule sodium zirconium cyclosilicate 10 10 g PO DAILY #30 ea 01/29/24 06/18/24 Rx gram oral powder packet atorvastatin 10 mg tablet (Lipitor) 10 mg PO HS #90 tabs 02/24/24 06/18/24 Rx duloxetine 20 mg capsule,delayed 20 mg PO BID #180 caps 02/24/24 06/18/24 Rx release (Cymbalta) empagliflozin 25 mg tablet 25 mg PO QAM #90 tabs 02/24/24 06/18/24 Rx (Jardiance) pen needle, diabetic 31 gauge x #400 ea 02/24/24 05/20/24 Rx 3/16" (BD Ultra-Fine Mini Pen Needle) cholecalciferol (vitamin D3) 25 25 mcg PO DAILY 03/01/24 06/18/24 History mcg (1,000 unit) tablet (Vitamin D3) oxycodone 5 mg tablet 5 mg PO Q6H PRN pain #30 tabs 03/15/24 06/18/24 Rx melatonin 10 mg capsule 10 mg PO HS PRN Sleep 05/14/24 06/18/24 History acetaminophen 650 mg 650 mg PO Q6H 05/20/24 06/18/24 History tablet,extended release (Tylenol 8 Hour) albuterol sulfate 90 mcg/actuation 2 puff inhalation Q6H PRN 05/20/24 06/18/24 Rx aerosol inhaler shortness of breath or wheezing #6.7 grams furosemide 20 mg tablet (Lasix) 20 mg PO DAILY #90 tabs 05/20/24 06/18/24 Rx insulin lispro 100 unit/mL 10 unit subcut BID 05/20/24 06/18/24 History subcutaneous pen metoprolol succinate 25 mg 25 mg PO DAILY #90 tabs 05/20/24 06/18/24 Rx tablet,extended release 24 hr tamsulosin 0.4 mg capsule 0.4 mg PO HS #30 caps 05/20/24 06/18/24 Rx Saccharomyces boulardii 250 mg 250 mg PO BID #60 caps 05/25/24 06/18/24 Rx capsule (Florastor) blood sugar diagnostic (OneTouch #100 ea 05/25/24 Rx Verio test strips) blood-glucose meter (OneTouch #1 ea 05/25/24 Rx Verio Flex Meter) insulin glargine 100 unit/mL (3 10 unit (0.1 mL) subcut QAM #15 mL 05/25/24 06/18/24 Rx mL) subcutaneous pen (Basaglar KwikPen U-100 Insulin) tadalafil 2.5 mg tablet 2.5 mg PO UD 06/18/24 06/18/24 History tirzepatide 2.5 mg/0.5 mL 2.5 mg subcut UD 06/18/24 06/18/24 History subcutaneous pen injector (Mounjaro) Past Med/Surg History Problem List (Updated 06/18/24 @ 12:08 by Marcin Pimentel PA-C) Pulmonary embolism Pericardial effusion Syncope (Acute) Chest pain (Acute) Open fracture dislocation of right ankle Diabetic neuropathy Chronic ulcer of left foot with necrosis of bone Morbid obesity with BMI of 50.0-59.9, adult Tachycardia [place]NN (dyspnea on exertion) Venous ulcer of right leg Diabetic foot ulcer (Acute) Chronic constipation Chronic venous insufficiency Urinary urgency Diabetic nephropathy associated with type 2 diabetes mellitus CKD stage 3 due to type 2 diabetes mellitus Diabetes type 2, controlled Class 3 obesity Status post partial amputation of foot Complex sleep apnea syndrome Nocturnal hypoxemia Psoriasis (Chronic) Nonproliferative diabetic retinopathy (Chronic) Disc degeneration, lumbar (Chronic) Diabetes mellitus with diabetic polyneuropathy (Chronic) Depression (Chronic) GERD (gastroesophageal reflux disease) (Chronic) CAD (coronary artery disease) (Chronic) Chronic, heavily calcified severe mid LAD disease (70 to 80% by IVUS) per 11/05/21 cardiac cath- medically managed Hypertension (Chronic) PAD (peripheral artery disease) (Chronic) Dyslipidemia (Chronic) CKD (chronic kidney disease) (Chronic) Cardiopulmonary arrest with successful resuscitation (Chronic) - 11/06/2021, [facility]>"in to have a PICC line placed for abx tx, flatlined" - Etiology of arrest seems unclear- seems that this was a PEA arrest per 11/06/21 cardio note BPH loc w urin obs/LUTS (Chronic Unknown) Medical History (Updated 06/18/24 @ 12:08 by Marcin Pimentel PA-C) Hx MRSA infection History of colon polyps Surgical History (Updated 04/01/24 @ 00:06 by Richie Gauthier) H/O kyphoplasty (2022) following L1 burst fracture Status post amputation of toe of left foot History of cardiac cath following an unexplained cardiac arrest>per medical record>11/05/21, [facility], no stents Status post amputation of left great toe History of incision and drainage Hx of I&D of mendel-rectal abscess History of cataract surgery bilt History of cholecystectomy History of tooth extraction History of colonoscopy Colonoscopy 01/21/[address] Garg. History of adenoidectomy History of tonsillectomy Status post uvulopalatopharyngoplasty S/P foot surgery, left Family History Mother Family history of diabetes mellitus Father History of alcoholism History of liver cancer Sister Cancer Denies family history of Ovarian cancer Prostate cancer Crohn's disease Breast cancer Colorectal cancer Social History Smoking Status: Never smoker Tobacco Type: Declines Age Started Using Tobacco: 18; Age Quit Using Tobacco: 48; packs per day: 1.5; Second Hand Exposure: No; Do You Dip or Chew Tobacco: No; Hx Alcohol Use: No Hx Substance Use: No Preferred Language: Turkmen Communication Ability: Effective Visual Impairment: No Limitations Hearing Ability: Normal Nuclear Waste Process Operator Required: No Beliefs That Will Affect Care: None marital status: Current Living Situation: Spouse Current Living Situation Comment: Lives with and dog current occupational status: employed 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 Other Information That Helps Us Care for You: No Feels Safe at Home: Yes Safety Concerns: Feels Safe At This Time Childhood Exposure to Second-Hand Smoke: Yes Diet: regular Diet Comment: "tries to feed me right, but sometimes it doesn't always happen" caffeine: Yes during the past year weight has: remained stable Physical Activity Frequency: Does not Exercise Seatbelt Use: never Do you think of yourself as: straight/heterosexual Assistive Devices: Walker Review of Systems Review of Systems: See HPI above Physical Exam Physical Exam: General: no acute distress; pleasant affect; anxious; non-toxic appearing; well- nourished; cooperative; SpO2 97% on RA HEENT: normocephalic, atraumatic; no scleral icterus; PERRLA; vision and hearing intact Neck: supple; trachea midline Skin: warm, dry without signs of tenting; no cyanosis; no rashes, bruising, lesions, or erythema noted CV: chest wall NTP; no rashes or bruising appreciated on the chest wall; RRR around 60 bpm; S1/S2 normal; no murmurs/rubs/gallops; pulses intact and symmetric at radial, DP, and PT Lungs: no acute respiratory distress; symmetrical chest wall expansion; clear breath sounds across all lung durbin w/o adventitious sounds; no wheezing ABD: Soft, NTP; BS present; no rebound/guarding; no distention MSK: no tics or fasciculations; no edema noted in the LEs b/l, nonerythematous LEs: Patient's RLE is currently in a brace; patient is missing all toes on his left foot; no erythema lower extremities bilaterally Neuro: A&Ox3; normal mood and affect; fluent speech; no focal deficits; patient reports sensation intact and symmetric lower extremities bilaterally Results & Data Results & Data Vital Signs (Past 12 Hours) Vital Signs Temp Pulse Pulse Resp BP BP Pulse Ox 06/18/24 08:00 63 20 121/77 97 06/18/24 07:00 63 18 125/79 100 06/18/24 06:37 82 17 141/95 H 100 06/18/24 06:14 80 06/18/24 06:00 37.1 C 67 18 128/77 99 O2 Del Method O2 Flow Rate 06/18/24 08:00 Room Air 06/18/24 07:00 Room Air 06/18/24 06:37 Nasal Cannula 2 06/18/24 06:14 06/18/24 06:00 Room Air Laboratory Results Abnormal lab results 06/18/24 Range/Units 06:18 RBC 4.27 L (4.70-6.10) M/uL Hgb 11.2 L (14.0-18.0) g/dl Hct 34.7 L (42.0-52.0) % RDW Coeff of Mejia 15.1 H (11.5-14.5) % MPV 9.3 L (9.4-12.4) fL Lymph # (Auto) 1.17 L (1.20-3.40) K/uL [place] # (Auto) 1.08 H (0.11-0.59) K/uL BUN 45 H (6-23) mg/dl Creatinine 2.10 H (0.6-1.4) mg/dl BUN/Creatinine Ratio 21.4 H (10-20) Glucose 184 H (70-99(Fasting)) mg/dl AST 11 L (13-39) U/L ALT 6 L (7-52) U/L Alkaline Phosphatase 137 H (34-104) U/L Globulin 4.2 H (2.5-4.0) gm/dl Diagnostic Findings Chest X-Ray 06/18/24 06:00 EXAM: XR chest 1V portable CLINICAL HISTORY: Chest pain. TECHNIQUE: An X-ray image of the chest is obtained in AP projection. COMPARISON: Prior study dated 03/25/2024 FINDINGS: Pulmonary Parenchyma: Prominent broncho vascular markings with diffuse alveolar opacities and prominent lay are seen, suggesting pulmonary congestion No evidence of pleural effusion or pleural thickening. Heart and Mediastinum: Apparent cardiomegaly Bony Thorax: Thoracic spondylosis The bony thorax appears intact without fractures or deformities. Soft Tissues: Soft tissues overlying the chest wall are unremarkable. IMPRESSION: 1. Prominent broncho vascular markings with diffuse alveolar opacities and prominent lay are seen, suggesting pulmonary congestion 2. Apparent cardiomegaly. 3. No interval chnages. Electronically signed by Nomi Walters 06-18-2024 07:17 AM Abdomen/Pelvis CT 06/18/24 07:04 CT OF THE ABDOMEN AND PELVIS WITHOUT CONTRAST CLINICAL HISTORY: Syncope. Fall. COMPARISON STUDY: CT of the abdomen and pelvis March 05, 2023. TECHNIQUE: Axial images of the abdomen and pelvis were obtained without IV contrast. Images were reviewed in the axial, sagittal, and coronal planes. Automated exposure control was utilized for the study. A dose lowering technique was utilized adhering to the principles of ALARA. FINDINGS: A small pericardial effusion is noted. The heart is mildly enlarged. No hemoperitoneum or pneumoperitoneum is present. Solid abdominal viscera are suboptimally assessed on unenhanced exam but there is no evidence for traumatic injury to the liver, spleen, adrenal glands, kidneys or pancreas. Low attenuation 2.4 cm left adrenal nodule is unchanged. This represents an adenoma. There is no biliary ductal dilatation status post cholecystectomy. Caliber is no evidence for a bowel obstruction. No free fluid is present. Postprocedural appearance of an L1 vertebroplasty is unchanged. There are no acute fractures within the lumbar spine, pelvis or hips. IMPRESSION: 1. No acute traumatic findings within the abdomen or pelvis on unenhanced exam. 2. No acute fractures. 3. Small pericardial effusion. ACT 112: Negative or not required by law. Electronically signed by: Guillaume Sales M.D. 06/18/2024 8:[address] 06/18/24 07:04 CT cervical spine wo con CT DOSE: 3731.05mGy*cm CLINICAL HISTORY: sycnope, fall, CP. COMPARISON: None TECHNIQUE: Multiple axial CT images of the cervical spine were obtained without contrast. Sagittal and coronal reconstructions were performed. A dose lowering technique was utilized adhering to the principles of ALARA. FINDINGS: There is no evidence of acute fracture or traumatic malalignment. There is reversal of mid and lower cervical lordosis. There is multilevel spondylosis with foraminal narrowing most pronounced at C5-6 and C6-7. The prevertebral soft tissues are not swollen. The odontoid and atlantoaxial articulation are intact. No soft tissue lesions are identified. IMPRESSION: No acute traumatic cervical spine injury identified. ACT 112: Negative or not required by law. The above report was generated using voice recognition software. It may contain grammatical, syntax or spelling errors. Electronically signed by: Lazara Quintero M.D. 06/18/2024 8:[address] 06/18/24 07:04 CT OF THE CHEST WITHOUT IV CONTRAST CLINICAL HISTORY: Syncope. Chest pain following fall. COMPARISON STUDY: Chest CT March 26, 2024. Chest radiograph performed earlier today. TECHNIQUE: Axial images of the chest were obtained without IV contrast. Images were reviewed in the axial, sagittal, and coronal planes. IV contrast was not administered for this examination. Automated exposure control was utilized for the study. A dose lowering technique was utilized adhering to the principles of ALARA. FINDINGS: Thoracic aorta is suboptimally assessed on unenhanced exam but there is no mediastinal hematoma or seroma. The heart is mildly enlarged. There is moderate coronary artery calcification. A small pericardial effusion has developed since chest CT of March 26, 2024. There is no pneumothorax or pleural effusion. No pulmonary contusion. No suspicious pulmonary nodules are present. No acute thoracic spine fractures are present. There are old bilateral rib fractures. No acute rib fractures are identified. Subpleural groundglass opacities represent atelectasis. IMPRESSION: 1. No acute traumatic findings within the chest on unenhanced exam. 2. Interval development of a small pericardial effusion. 3. Cardiomegaly and moderate coronary artery calcification. ACT 112: Negative or not required by law. Electronically signed by: Guillaume Sales M.D. 06/18/2024 8:[address] 06/18/24 07:04 CT head/brain wo con CLINICAL HISTORY: syncope, fall, CP. TECHNIQUE: Multiple axial CT images of the head were obtained without contrast. Sagittal and coronal reconstructions were performed. A dose lowering technique was utilized adhering to the principles of ALARA. CT DOSE: 3731.05mGy*cm COMPARISON: 11/05/2021 FINDINGS: There is no intra-axial or extra-axial fluid collection, hemorrhage, or mass. There is no midline shift. Diminished attenuation in the periventricular white matter is usually attributable to small vessel insufficiency. There is no skull fracture identified. IMPRESSION: No acute intracranial process. ACT 112: Negative or not required by law. The above report was generated using voice recognition software. It may contain grammatical, syntax or spelling errors. Electronically signed by: Lazara Quintero M.D. 06/18/2024 8:33 AM ECG Additional Comments: ECG revealed NSR at 73 bpm; QTc 401 Code Status & VTE Plan Code Status Full code VTE Prophylaxis Plan VTE Prophylaxis will be ordered: Yes Supervising Physician Co-Signing Physician Notes I personally examined the patient and verified all guevara points of history and exam, discussed case, and agree with decision making with Areli FREGOSO chest pain woke from sleep now tachycardic but pain getting better vitals noted nad mildly tachycardic cardio distant lungs clear labs noted, studies noted CP/SOB -negative troponins reassuring - prior cardiac hx and abnormal EKG - appreciate cardiology input -can't r/o PE at this time - risks being immobility / fracture - and was off anticoag recently (was on for postop proph) - with CKD CT angio seems riskier overall than empiric anticoagulation - will follow - may evolve to "declare it self" more clearly as other pathology - but if not, then may be best overall to empirically anticoagulate for ~3 months as "provoked PE" rather than risk LEONARDO w IV dye. possibly could arrange VQ in near future that could help risk stratify as well PG Care Time/CCT Total # of Minutes Spent Total Time Spent with Patient: Total time spent is greater than 50% in coordination of care (as documented) at patient's floor/unit and/or counseling patient: C[place] [address] INT INP/OBS CARE 3/75MIN Patient Type Established Medical Decision Making High Complexity Diagnoses Pulmonary embolism I26.99 Chest pain R07.9 Syncope R55
--- NOTE | 2024-06-18 10:53 | Cardiology Consultation ---
Date of Consultation June 18, 2024 Assessment & Plan (1) Chest pain: (2) Syncope: (3) CAD (coronary artery disease): (4) Dyslipidemia: (5) Hypertension: (6) Pericardial effusion: Plan ASSESSMENT/PLAN: 1. Chest pain: Not consistent with acute coronary syndrome. Has had pain for 8 hours and has negative high-sensitivity troponin x 2 and on preliminary review of echo in progress, normal LV systolic function without obvious regional wall motion abnormalities. Given recent orthopedic procedures and sedentary lifestyle since then, would consider pulmonary embolism as possible etiology. If testing is unremarkable, there is a pleuritic and also a reproducible compone nt. Could consider anti-inflammatory therapy. Fortunately, chest pain although still present, much improved. 2. Possible syncope: Given chest discomfort today with shortness of breath initially, would consider possible pulmonary embolism as above. 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 3. CAD: Has documented CAD however ischemic heart disease does not appear to be the cause of his presentation today. Risk factor modification. Recommend high intensity statin therapy if no contraindication. Can continue beta-law. 4. Pericardial effusion: Formal echo review is pending. There was no evidence of tamponade physiology. Will compare to previous studies to determine chronicity. Etiology uncertain but no invasive measures necessary at this time. 5. Hypertension: Blood pressure has been mostly acceptable thus far. Can continue home regimen. 6. Dyslipidemia: Recommend high intensity statin therapy. 7. Disposition: Dr. Shin will be covering this weekend. Please call with any questions or concerns. Once discharged, can follow-up with Dr. Franco, his primary head lineman. Patient care and recommendations discussed/communicated with primary hospitalist service, Marcin Pimentel PA-C. Recommended evaluation for pulmonary embolism. History of Present Illness Reason for Consultation: "chest pain; cath v. stress echo" Requesting Physician: Marcin Pimentel PA-C Attending Physician: Dr. Simon History of Present Illness Mr. Alvarado is a very pleasant 68-year-old gentleman with a history significant for CAD, hypertension, dyslipidemia, type 2 diabetes, cardiac arrest (felt to be vagally mediated in 2021), peripheral arterial disease, and CKD. His primary head lineman is Dr. Franco. In November 2021, he was hospitalized with osteomyelitis and during a PICC line insertion, suffered an arrest which was felt to be PEA. He had elevated troponin and therefore underwent coronary angiography which demonstrated severe mid LAD, heavily calcified lesion of 70 to 80% stenosis by IVUS, for which medical therapy was recommended in the absence of angina. He fell on 03/13/2024 and had a right ankle fracture and has since undergone surgery. He also had surgery on his left foot prior to that and has been very sedentary as he is wearing a boot on both legs. Yesterday, he was standing in his kitchen and felt a "blank feeling" and then fell to the floor. He barely remembers falling and is not sure if he lost consciousness completely or not. He reports no injury. At approximately 3 AM this morning, he was awakened with chest discomfort which is central with radiation to both shoulders. There was shortness of breath as well. It was initially a 7 or 8 out of 10. The pain has persisted and is still present at the time of our visit this morning at approximately 10:30 AM. It is improved to a 3.5 out of 10 after receiving fentanyl. Nitroglycerin had no effe ct on his chest discomfort. It is nonpositional. There is a mild pleuritic component. His most significant discomfort currently is right heel pain which was present prior to presentation. 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 It was felt that more likely it was a sinus tachycardia per that record. He has since discontinued all anticoagulation therapy and aspirin following his most recent surgery per his . He has had diarrhea for 2 days, approximately 2 episodes per day. He denies melena, hematochezia, hematuria. He denies any other leg pain or swelling. He denies fevers, chills, nausea, or vomiting. He denies palpitations and orthopnea. Review of systems: As above. Family history: No known premature CAD. Social history: He quit smoking in his 40s. Very rare alcohol. No drug abuse. Lives at home with his . 3 daughters. His was present at the bedside in the ER. Allergies Allergy/AdvReac Type Severity Reaction Status Date / Time No Known Allergies Allergy Verified 06/18/24 07:28 Home Medications Medication Instructions Recorded Confirmed Type lancets (Accu-Chek Fastclix Lancet 08/23/20 05/20/24 History Drum) FreeStyle Remigio 2 [place] (flash #1 ea 01/24/21 05/20/24 Rx glucose scanning reader) FreeStyle Remigio 2 Sensor (flash #7 ea 01/24/21 05/20/24 Rx glucose sensor) metformin 500 mg tablet 500 mg PO BID 90 days #180 tabs 06/24/23 06/18/24 Rx pantoprazole 40 mg tablet,delayed 40 mg PO BID #180 tabs 09/09/23 06/18/24 Rx release (Protonix) cyanocobalamin (vitamin B-12) 1,000 mcg PO DAILY 12/26/23 06/18/24 History 1,000 mcg capsule sodium zirconium cyclosilicate 10 10 g PO DAILY #30 ea 01/29/24 06/18/24 Rx gram oral powder packet atorvastatin 10 mg tablet (Lipitor) 10 mg PO HS #90 tabs 02/24/24 06/18/24 Rx duloxetine 20 mg capsule,delayed 20 mg PO BID #180 caps 02/24/24 06/18/24 Rx release (Cymbalta) empagliflozin 25 mg tablet 25 mg PO QAM #90 tabs 02/24/24 06/18/24 Rx (Jardiance) pen needle, diabetic 31 gauge x #400 ea 02/24/24 05/20/24 Rx 3/16" (BD Ultra-Fine Mini Pen Needle) cholecalciferol (vitamin D3) 25 25 mcg PO DAILY 03/01/24 06/18/24 History mcg (1,000 unit) tablet (Vitamin D3) oxycodone 5 mg tablet 5 mg PO Q6H PRN pain #30 tabs 03/15/24 06/18/24 Rx melatonin 10 mg capsule 10 mg PO HS PRN Sleep 05/14/24 06/18/24 History acetaminophen 650 mg 650 mg PO Q6H 05/20/24 06/18/24 History tablet,extended release (Tylenol 8 Hour) albuterol sulfate 90 mcg/actuation 2 puff inhalation Q6H PRN 05/20/24 06/18/24 Rx aerosol inhaler shortness of breath or wheezing #6.7 grams furosemide 20 mg tablet (Lasix) 20 mg PO DAILY #90 tabs 05/20/24 06/18/24 Rx insulin lispro 100 unit/mL 10 unit subcut BID 05/20/24 06/18/24 History subcutaneous pen metoprolol succinate 25 mg 25 mg PO DAILY #90 tabs 05/20/24 06/18/24 Rx tablet,extended release 24 hr tamsulosin 0.4 mg capsule 0.4 mg PO HS #30 caps 05/20/24 06/18/24 Rx Saccharomyces boulardii 250 mg 250 mg PO BID #60 caps 05/25/24 06/18/24 Rx capsule (Florastor) blood sugar diagnostic (OneTouch #100 ea 05/25/24 Rx Verio test strips) blood-glucose meter (OneTouch #1 ea 05/25/24 Rx Verio Flex Meter) insulin glargine 100 unit/mL (3 10 unit (0.1 mL) subcut QAM #15 mL 05/25/24 06/18/24 Rx mL) subcutaneous pen (Basaglar KwikPen U-100 Insulin) tadalafil 2.5 mg tablet 2.5 mg PO UD 06/18/24 06/18/24 History tirzepatide 2.5 mg/0.5 mL 2.5 mg subcut UD 06/18/24 06/18/24 History subcutaneous pen injector (Mounjaro) Problem List (Updated 06/18/24 @ 11:18 by Henrry Monroe MD) Pericardial effusion Syncope (Acute) Chest pain (Acute) Open fracture dislocation of right ankle Diabetic neuropathy Chronic ulcer of left foot with necrosis of bone Morbid obesity with BMI of 50.0-59.9, adult Tachycardia [place] (dyspnea on exertion) Venous ulcer of right leg Diabetic foot ulcer (Acute) Chronic constipation Chronic venous insufficiency Urinary urgency Diabetic nephropathy associated with type 2 diabetes mellitus CKD stage 3 due to type 2 diabetes mellitus Diabetes type 2, controlled Class 3 obesity Status post partial amputation of foot Complex sleep apnea syndrome Nocturnal hypoxemia Psoriasis (Chronic) Nonproliferative diabetic retinopathy (Chronic) Disc degeneration, lumbar (Chronic) Diabetes mellitus with diabetic polyneuropathy (Chronic) Depression (Chronic) GERD (gastroesophageal reflux disease) (Chronic) CAD (coronary artery disease) (Chronic) Chronic, heavily calcified severe mid LAD disease (70 to 80% by IVUS) per 11/05/21 cardiac cath- medically managed Hypertension (Chronic) PAD (peripheral artery disease) (Chronic) Dyslipidemia (Chronic) CKD (chronic kidney disease) (Chronic) Cardiopulmonary arrest with successful resuscitation (Chronic) - 11/06/2021, [facility]>"in to have a PICC line placed for abx tx, flatlined" - Etiology of arrest seems unclear- seems that this was a PEA arrest per 11/06/21 cardio note BPH loc w urin obs/LUTS (Chronic Unknown) Patient History Medical History (Updated 06/18/24 @ 11:18 by Henrry Monroe MD) Hx MRSA infection History of colon polyps Surgical History (Updated 04/01/24 @ 00:06 by Richie Gauthier) H/O kyphoplasty (2022) following L1 burst fracture Status post amputation of toe of left foot History of cardiac cath following an unexplained cardiac arrest>per medical record>11/05/21, [facility], no stents Status post amputation of left great toe History of incision and drainage Hx of I&D of mendel-rectal abscess History of cataract surgery bilt History of cholecystectomy History of tooth extraction History of colonoscopy Colonoscopy 01/21/[address] Garg. History of adenoidectomy History of tonsillectomy Status post uvulopalatopharyngoplasty S/P foot surgery, left Family History Mother Family history of diabetes mellitus Father History of alcoholism History of liver cancer Sister Cancer Denies family history of Ovarian cancer Prostate cancer Crohn's disease Breast cancer Colorectal cancer Social History Smoking Status: Unknown if ever smoked Tobacco Type: Declines Age Started Using Tobacco: 18; Age Quit Using Tobacco: 48; packs per day: 1.5; Second Hand Exposure: No; Do You Dip or Chew Tobacco: No; Hx Alcohol Use: Yes Alcohol type: wine Alcohol Intake Frequency: Monthly or Less Hx Substance Use: No Preferred Language: Turkish Communication Ability: Effective Visual Impairment: No Limitations Hearing Ability: Normal Order Processor Required: No Beliefs That Will Affect Care: None marital status: Current Living Situation: Spouse Current Living Situation Comment: Lives with and dog current occupational status: employed 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 Feels Safe at Home: Yes Childhood Exposure to Second-Hand Smoke: Yes Diet: regular Diet Comment: "tries to feed me right, but sometimes it doesn't always happen" caffeine: Yes during the past year weight has: remained stable Physical Activity Frequency: Does not Exercise Seatbelt Use: never Do you think of yourself as: straight/heterosexual Assistive Devices: None Physical Exam Physical Exam: Gen.: No acute distress. Alert and oriented. HEENT: Anicteric sclera. Neck: Thick/bearded neck. Cardiac: Regular. Normal S1-S2. No obvious murmurs, rubs, or gallops. Pulmonary: Clear to auscultation bilaterally without wheezes, rales, or rhonchi. Abdomen: Soft, nontender, nondistended, with normoactive bowel sounds. No bruits noted. Extremities: 2+ radial pulses bilaterally. Right lower extremity in a boot. 1+ left dorsalis pedis pulse. No significant pitting edema noted of left lower extremity. No cyanosis. Chest: Tender to palpation along the left upper sternal border, reproducing his chest discomfort. No rash. Results & Data Vital Signs (Past 12 Hours) Vital Signs Temp Pulse Pulse Resp BP BP Pulse Ox 06/18/24 10:04 62 06/18/24 10:00 72 20 140/71 97 06/18/24 08:00 63 20 121/77 97 06/18/24 07:00 63 18 125/79 100 06/18/24 06:37 82 17 141/95 H 100 06/18/24 06:14 80 06/18/24 06:00 37.1 C 67 18 128/77 99 O2 Del Method O2 Flow Rate 06/18/24 10:04 06/18/24 10:00 Room Air 06/18/24 08:00 Room Air 06/18/24 07:00 Room Air 06/18/24 06:37 Nasal Cannula 2 06/18/24 06:14 06/18/24 06:00 Room Air Laboratory Results Laboratory Results - last 24 hr 06/18/24 06/18/24 06/18/24 06:18 10:12 10:39 WBC 8.85 RBC 4.27 L Hgb 11.2 L Hct 34.7 L MCV 81.3 MCH 26.2 MCHC 32.3 RDW Std Deviation 44.1 RDW Coeff of Mejia 15.1 H Plt Count 170 MPV 9.3 L Immature Gran % (Auto) 0.6 Neut % (Auto) 71.8 Lymph % (Auto) 13.2 [place] % (Auto) 12.2 Eos % (Auto) 1.7 Baso % (Auto) 0.5 Neut # (Auto) 6.36 Lymph # (Auto) 1.17 L [place] # (Auto) 1.08 H Eos # (Auto) 0.15 Baso # (Auto) 0.04 Immature Gran # (Auto) 0.05 D-Dimer Pending Sodium 136 Potassium 4.5 Chloride 104 Carbon Dioxide 23 Anion Gap 9 BUN 45 H Creatinine 2.10 H Est Cr Clr Drug Dosing Not Reportable eGFR 33.66 BUN/Creatinine Ratio 21.4 H Glucose 184 H Calcium 9.5 Total Bilirubin 0.5 AST 11 L ALT 6 L Alkaline Phosphatase 137 H Troponin I High Sens 8.5 9.4 Total Protein 8.0 Albumin 3.8 Globulin 4.2 H Albumin/Globulin Ratio 0.9 Lipase 30 Diagnostic Findings Labs reviewed and notable for mild but improved anemia, abnormal (chronic) renal function, normal potassium. High-sensitivity troponin negative x 1. Recommended repeating a stat troponin and it was also normal. ECGs personally reviewed: ECG 06/18/2024 at 6:05 AM: Possible junctional rhythm 81 bpm. ECG 06/18/2024 at 6:44 AM: Sinus rhythm 73 bpm. Outpatient cardiology note reviewed. Cardiac cath report reviewed from 11/05/2021: Heavily calcified severe mid LAD disease (70 to 80% by IVUS). D1 proximal 50%. Dominant RCA. Mid RCA 70%. Echo 11/05/2021: Hyperdynamic LV. Poor image quality. CT chest 06/18/2024 noncontrast: No acute traumatic findings within the chest. Small pericardial effusion. CT abdomen/pelvis 06/18/2024: No acute traumatic findings. No acute fractures. PG Care Time/CCT Total # of Minutes Spent Total Time Spent with Patient: Total time spent is greater than 50% in coordination of care (as documented) at patient's floor/unit and/or counseling patient: Coding Level of Care Code 54027 INT INP/OBS CARE 375MIN Diagnoses Chest pain R07.9 Syncope R55 CAD (coronary artery disease) I25.10 Dyslipidemia E78.5 Hypertension I10 Pericardial effusion I31.39
--- NOTE | 2024-06-18 11:12 | Electrocardiogram Report ---
Test Reason : Blood Pressure : */* mmHG Vent. Rate : 81 BPM Atrial Rate : * BPM P-R Int : * ms QRS Dur : 100 ms QT Int : 366 ms P-R-T Axes : * -2 68 degrees QTcB Int : 425 ms Accelerated Junctional rhythm Abnormal ECG When compared with ECG of 29-Mar-2024 10:12, Junctional rhythm has replaced Sinus rhythm Confirmed by Henrry Monroe ([id number]) on 06/18/2024 11:12:02 AM Referred By: Confirmed By: Henrry Monroe
--- NOTE | 2024-06-18 11:12 | Electrocardiogram Report ---
Test Reason : Blood Pressure : */* mmHG Vent. Rate : 73 BPM Atrial Rate : 73 BPM P-R Int : 176 ms QRS Dur : 80 ms QT Int : 364 ms P-R-T Axes : 71 -15 40 degrees QTcB Int : 401 ms Normal sinus rhythm Nonspecific ST abnormality When compared with ECG of 18-Jun-2024 06:05, Sinus rhythm has replaced Junctional rhythm Confirmed by Henrry Monroe ([id number]) on 06/18/2024 11:12:25 AM Referred By: REFERRED SELF Confirmed By: Henrry Monroe
[2024-06-18 11:36] LABS: D Dimer 710 ug/L FEU (0-500)
[2024-06-18] MEDS: HYDROmorphone INJ 0.5 MG/0.5 ML SYR IV STA (11:36)
[2024-06-18] MEDS ORDERED: Heparin IV Adult Wt-Based Standard w/ INITIAL Bolus Protocol IV STA (11:40)
[2024-06-18 12:00] LABS: Partial Thromboplastin Time 27 Seconds (21-31)
[2024-06-18] MEDS: Patient's WEIGHT Needed STA (12:01)
[2024-06-18] MEDS: HEPARIN SOD (PORCINE) 1000 UNIT/ML IV ONE (12:33)
[2024-06-18] MEDS: HEPARIN 25000 UNIT/500 ML D5W 25,000 UNITS/500 ML BAG IV SCH (12:33)
[2024-06-18] MEDS ORDERED: GLUCOSE 10 TAB/TUBE PO PRN (13:40)
[2024-06-18] MEDS ORDERED: DEXTROSE 50% 50 ML SYRINGE IV PRN (13:40)
[2024-06-18] MEDS ORDERED: GLUCOSE 40% GEL 15 GM TUBE PO PRN (13:40)
[2024-06-18] MEDS ORDERED: ALBUTEROL HFA 8 GM INHALER INH PRN (13:40)
[2024-06-18] MEDS ORDERED: CARBOHYDRATES FOR HYPOGLYCEMIA PO PRN (13:40)
[2024-06-18] MEDS ORDERED: oxyCODONE HCL IR 5 MG TAB (IMMEDIATE RELEASE) PO PRN (13:40)
[2024-06-18] MEDS ORDERED: GLUCAGON FOR INJ 1 MG VIAL SQ PRN (13:40)
[2024-06-18] MEDS: METOPROLOL SUCC 25MG EXT REL TAB PO SCH (14:43)
[2024-06-18] MEDS: PANTOprazole 40 MG TAB PO SCH (14:43)
[2024-06-18] MEDS: INSULIN ASPART PER UNIT CHARGE SC SCH (15:41)
--- NOTE | 2024-06-18 15:55 | Ultrasound Report ---
RIGHT LOWER EXTREMITY VENOUS DOPPLER CLINICAL HISTORY: Right leg pain. Evaluate for deep venous thrombus. COMPARISON STUDY: Bilateral lower extremity venous Doppler ultrasound December 03, 2021. TECHNIQUE: Sonography of the deep venous system of the right lower extremity was performed. Compress ion and augmentation were evaluated. FINDINGS: The right common femoral, superficial femoral and popliteal veins were compressible. Augme ntation was normal. Flow was shown within the deep calf vessels. IMPRESSION: No evidence of deep venous thrombus within the right lower extremity. ACT 112: Negative or not required by law. Electronically signed by: Guillaume Sales M.D. 06/18/2024 3:54 PM
--- NOTE | 2024-06-18 18:28 | XCELERA ---
[id number]
[2024-06-18 19:35] LABS: ANTI-Xa, UFH(UnfractionatedHep 0.55 IU/ml (0.3-0.7)
[2024-06-18] MEDS: TAMSULOSIN HCL 0.4 MG CAP PO SCH (20:37)
[2024-06-18] MEDS: DULoxetine HCL 20 MG CAP PO SCH (20:37)
[2024-06-18] MEDS: LANTUS PER UNIT CHARGE SQ SCH (20:38)
[2024-06-18] MEDS: ATORVASTATIN 10 MG TAB PO SCH (20:38)
[2024-06-19 06:22] LABS: Basophils # (auto) 0.04 K/uL (0.00-0.20); Basophils % (auto) 0.5 %; Eosinophils # (auto) 0.08 K/uL (0.00-0.50); Hematocrit (blood only) 30.6 % (42.0-52.0); Hemoglobin 9.9 g/dl (14.0-18.0); Immature Granulocytes # (auto) 0.04 K/uL (0.01-0.20); Immature Granulocytes % (auto) 0.5 %; Lymphocytes # (auto) 1.32 K/uL (1.20-3.40); Lymphocytes % (auto) 16.7 %; Mean Corpuscular Hemoglobin 25.9 pg (25.0-34.0); Mean Corpuscular Hgb Conc 32.4 g/dL (32.0-36.0); Mean Corpuscular Volume 80.1 fL (80.0-100.0); Mean Platelet Volume 9.2 fL (9.4-12.4); Monocytes # (auto) 1.21 K/uL (0.11-0.59); Monocytes % (auto) 15.3 %; Neutrophils # (auto) 5.22 K/uL (1.40-6.50); Platelet Count 153 K/uL (130-400); RDW Coefficient of Variation 15.4 % (11.5-14.5); RDW Standard Deviation 44.7 fL (36.4-46.3); Red Blood Count 3.82 M/uL (4.70-6.10); White Blood Count 7.91 K/ul (4.8-10.8)
[2024-06-19 06:43] LABS: BUN Creatinine Ratio 19.7 (10-20); Calcium 9.2 mg/dl (8.6-10.3); Creatinine Clr Calc Pharmacy 44.3 ml/min
[2024-06-19 07:57] LABS: Estimated Average Glucose 126 mg/dl
[2024-06-19] MEDS: OPTIRAY 320 125ml IV ONE (08:44)
[2024-06-19] MEDS: FUROSEMIDE 20 MG TAB PO SCH (08:56)
[2024-06-19] MEDS: SODIUM ZIRCONIUM CYCLOSILICATE 10 GM PACKET PO SCH (08:56)
--- NOTE | 2024-06-19 08:56 | Hospitalist Progress Note ---
Date of Service June 19, 2024 Assessment & Plan (1) Pulmonary embolism: (2) Chest pain: (3) Syncope: Plan ADDENDUM 14:00: Alerted by nursing staff that an EKG was obtained at bedside, as patient's heart rate became irregular on telemetry. EKG showed atrial fibrillation with RVR, and did read as a possible STEMI. This EKG was reviewed/compared against previous EKGs by both Dr. Simon and myself. It does appear that the patient may have some mild ST elevations in leads II, III, and aVF at baseline (may be secondary to underlying CAD). Clinically, patient denies that chest pain at this time, and reports his chest pain has actually significantly improved from prior. He is currently on IV heparin at this time. Will obtain stat troponin. Enrique presented on the morning of 06/18 for squeezing, substernal chest pain that woke him from sleep at 0300. Coming in for suspected pulmonary embolism. #Chest pain/pressure H/o cardiac arrest + significant cardiac RFs Troponin WNL x 2 EKG without acute changes Still having chest pressure this morning Chest CT revealed no acute findings; interval development of small pericardial effusion + cardiomegaly Cardiology was consulted D Dimer is elevated Will rule out PE with VQ scan (elevated Creatinine precludes use of IV contrast) Lower extremity duplex did not suggest DVT ECHO EF 65-70%, no wall motion abnormality, no valvular abnormality, small pericardial effusion, no tamponade Continue IV Heparin by weight #Syncopal episode on 06/17/suspected pulmonary embolism Patient is unsure if he just fell or blacked out; does not believe he hit his head Head/cervical spine CT revealed no acute or traumatic findings Patient does endorse pleuritic CP on admission ECHO EF 65-70%, no wall motion abnormality, no valvular abnormality, small pericardial effusion, no tamponade #Remote history of right ankle fracture Open fracture, dislocation of the right ankle on 03/13 with ORIF and washout; removal of external fixator, right ankle subtalar joint fusion 03/25 Discharged from the hospital on Eliquis; however, Eliquis was discontinued on 05/25 Not currently on anticoagulation #History of cardiac arrest Noted; cardiac cath on 11/05/2021 revealed severe mid LAD disease (70 to 80% by IVUS) #CKD BUN 45, creatinine 2.10 (around baseline) on admission Avoid nephrotoxic agents where possible #T2DM Last A1c at 6.0% on 03/17/2024 Hold metformin, empagliflozin, Mounjaro Patient normally takes Lantus 10 units QAM Lantus 5 u BID while inpatient SSI with target BSG range 110-140mg/dL, CF 50, carb ratio 15 T2DM diet BSG ACHS Adjust regimen as needed AM A1c Chronic stable conditions: #HLDatorvastatin #GERDpantoprazole #BPHtamsulosin Disposition: Admit to PCU telemetry Full code Heart healthy, T2DM diet VTE PPx: Heparin IV Admission and Anticipated Discharge Date Admission Date: June 18, 2024 Subjective patient still having chest pressure Review of Systems Review of Systems: All systems reviewed are negative, apart from the ones contained in the history. Physical Exam Physical Exam: The patient is awake, alert and oriented 3, well developed and well nourished, normocephalic and atraumatic, lying in bed and in no acute distress. HEENT--PERRL, EOMI, mucous membranes and oropharynx mildly dry Neck--supple. No JVD. No bruits. Thyroid normal, trachea midline, no adenopathy. Heart--normal S1 and S2. No murmurs, rubs or gallops. Lungs--clear bilaterally, no respiratory distress, no accessory muscle use. Abdomen--normal bowel sounds and soft. Extremities--no cyanosis or clubbing. No edema. Dermatologic--normal skin turgor, normal color, no abnormal lymph nodes, no rash. Neurologic--cranial nerves II through XII grossly intact. Rheumatologic--normal range of motion. Psychiatric--normal affect. Results & Data Results & Data Vital Signs (Past 12 Hours) Vital Signs Temp Pulse Pulse Resp BP Pulse Ox O2 Del Method 06/19/24 07:42 80 06/19/24 07:30 97.3 F L 82 16 109/66 98 Room Air 06/19/24 02:35 97.7 F 82 18 119/67 97 Room Air 06/18/24 22:44 97.7 F 87 18 107/71 97 Room Air 06/18/24 21:58 89 PG Care Time/CCT Total # of Minutes Spent Total Time Spent with Patient: Total time spent is greater than 50% in coordination of care (as documented) at patient's floor/unit and/or counseling patient: Coding Level of Care Code 82654 SUB INP/OBS CARE 2/35MIN Diagnoses Pulmonary embolism I26.99 Chest pain R07.9 Syncope R55 Time Spent (min) 35
--- NOTE | 2024-06-19 08:57 | CT Scan Report ---
HISTORY: Chest pain. TECHNIQUE: CTA imaging of the chest was performed following uneventful administration 118 mL of Optiray 320 IV contrast. Images are presented in axial, sagittal, and coronal reformats. Coronal and sagittal 3D MIP reconstructions. COMPARISON: None. FINDINGS: Lungs: Mild atelectasis at the lung bases. No focal consolidation concerning for pneumonia. No pneumothorax or effusion. The central tracheobronchial tree is patent. Heart/Mediastinum: Top normal heart size. Small pericardial effusion. Coronary artery calcifications are present with multivessel disease. No suspicious mediastinal or hilar lymph nodes. Small hiatal hernia. Thoracic esophagus and included thyroid gland are unremarkable. Vasculature: No thoracic aortic aneurysm. No evidence of acute aortic process. Mild atherosclerotic vascular disease of the aorta and arch vessels.No evidence of acute pulmonary embolism. Main pulmonary artery is normal in caliber. Soft Tissues: Soft tissues of the chest wall are unremarkable. Upper Abdomen: Included upper abdomen is unremarkable. Bones: No acute osseous abnormality.Mild degenerative changes of the spine. IMPRESSION: 1. No evidence of acute pulmonary embolism or acute aortic process. 2. Small pericardial effusion. Severe coronary artery disease. 3. Numerous additional chronic and/or incidental findings as above. Electronically signed by Sam Wright 06-19-2024 08:57 AM
[2024-06-19] MEDS: CLOTRIMAZOLE/BETAMETHASONE CR 15 GM TUBE EXT SCH (10:24)
[2024-06-19] MEDS ORDERED: ONDANSETRON 4 MG OD TAB PO PRN (20:07)
[2024-06-19] MEDS: ONDANSETRON INJ 2 MG/ML 2 ML VIAL IV STA (20:18)
[2024-06-19] MEDS: ACETAMINOPHEN 325 MG TAB PO PRN (21:27)
[2024-06-19] MEDS: MELATONIN 3 MG TAB PO PRN (21:28)
[2024-06-20 06:52] LABS: Hematocrit (blood only) 30.9 % (42.0-52.0); Mean Corpuscular Hemoglobin 26.2 pg (25.0-34.0); Mean Corpuscular Hgb Conc 32.4 g/dL (32.0-36.0); Mean Corpuscular Volume 81.1 fL (80.0-100.0); Mean Platelet Volume 9.3 fL (9.4-12.4); Platelet Count 168 K/uL (130-400); RDW Coefficient of Variation 15.4 % (11.5-14.5); RDW Standard Deviation 45.1 fL (36.4-46.3); Red Blood Count 3.81 M/uL (4.70-6.10); White Blood Count 7.85 K/ul (4.8-10.8)
[2024-06-20 07:16] LABS: BUN Creatinine Ratio 18.5 (10-20); Creatinine Clr Calc Pharmacy 42.5 ml/min; Potassium 4.5 mmol/L (3.5-5.1)
[2024-06-20 07:58] LABS: ANTI-Xa, UFH(UnfractionatedHep 0.31 IU/ml (0.3-0.7)
--- NOTE | 2024-06-20 09:44 | Hospitalist Progress Note ---
Date of Service June 20, 2024 Assessment & Plan (1) Pulmonary embolism: (2) Chest pain: (3) Syncope: Plan Enrique presented on the morning of 06/18 for squeezing, substernal chest pain that woke him from sleep at 0300. Coming in for suspected pulmonary embolism. #Chest pain/pressure H/o cardiac arrest + significant cardiac RFs Troponin WNL x 2 EKG without acute changes Chest pressure much improved No evidence of PE on Chest CT angio ECHO EF 65-70%, no wall motion abnormality, no valvular abnormality, small pericardial effusion, no tamponade Cardiology was consulted D Dimer is elevated Lower extremity duplex did not suggest DVT #Syncopal episode on 06/17/suspected pulmonary embolism Patient is unsure if he just fell or blacked out; does not believe he hit his head Head/cervical spine CT revealed no acute or traumatic findings Patient does endorse pleuritic CP on admission ECHO EF 65-70%, no wall motion abnormality, no valvular abnormality, small pericardial effusion, no tamponade #Remote history of right ankle fracture Open fracture, dislocation of the right ankle on 03/13 with ORIF and washout; removal of external fixator, right ankle subtalar joint fusion 03/25 Discharged from the hospital on Eliquis; however, Eliquis was discontinued on 05/25 Not currently on anticoagulation #History of cardiac arrest Noted; cardiac cath on 11/05/2021 revealed severe mid LAD disease (70 to 80% by IVUS) #CKD BUN 45, creatinine 2.10 (around baseline) on admission Avoid nephrotoxic agents where possible #T2DM Last A1c at 6.0% on 03/17/2024 Hold metformin, empagliflozin, Mounjaro Patient normally takes Lantus 10 units QAM Lantus 5 u BID while inpatient SSI with target BSG range 110-140mg/dL, CF 50, carb ratio 15 T2DM diet BSG ACHS Adjust regimen as needed AM A1c Chronic stable conditions: #HLDatorvastatin #GERDpantoprazole #BPHtamsulosin Disposition: Hopefully d/c in the next 24 hrs Full code Heart healthy, T2DM diet VTE PPx: Heparin IV Admission and Anticipated Discharge Date Admission Date: June 18, 2024 Subjective patient feels better this morning Review of Systems Review of Systems: All systems reviewed are negative, apart from the ones contained in the history. Physical Exam Physical Exam: The patient is awake, alert and oriented 3, well developed and well nourished, normocephalic and atraumatic, lying in bed and in no acute distress. HEENT--PERRL, EOMI, mucous membranes and oropharynx mildly dry Neck--supple. No JVD. No bruits. Thyroid normal, trachea midline, no adenopathy. Heart--normal S1 and S2. No murmurs, rubs or gallops. Lungs--clear bilaterally, no respiratory distress, no accessory muscle use. Abdomen--normal bowel sounds and soft. Extremities--no cyanosis or clubbing. No edema. Dermatologic--normal skin turgor, normal color, no abnormal lymph nodes, no rash. Neurologic--cranial nerves II through XII grossly intact. Rheumatologic--normal range of motion. Psychiatric--normal affect. Results & Data Results & Data Vital Signs (Past 12 Hours) Vital Signs Temp Pulse Pulse Resp BP Pulse Ox O2 Del Method 06/20/24 09:13 Room Air 06/20/24 08:00 98.4 F 85 18 101/66 95 Room Air 06/20/24 07:28 78 06/20/24 02:12 97.5 F L 79 19 122/79 94 Room Air 06/19/24 23:09 97.7 F 77 19 100/65 94 Room Air 06/19/24 22:11 79 PG Care Time/CCT Total # of Minutes Spent Total Time Spent with Patient: Total time spent is greater than 50% in coordination of care (as documented) at patient's floor/unit and/or counseling patient: Coding Level of Care Code 03797 SUB INP/OBS CARE 2/35MIN Diagnoses Pulmonary embolism I26.99 Chest pain R07.9 Syncope R55 Time Spent (min) 35
[2024-06-21 06:19] LABS: Hematocrit (blood only) 29.9 % (42.0-52.0); Hemoglobin 9.6 g/dl (14.0-18.0); Mean Corpuscular Hemoglobin 25.9 pg (25.0-34.0); Mean Corpuscular Hgb Conc 32.1 g/dL (32.0-36.0); Mean Corpuscular Volume 80.6 fL (80.0-100.0); Mean Platelet Volume 9.5 fL (9.4-12.4); Platelet Count 168 K/uL (130-400); RDW Coefficient of Variation 15.6 % (11.5-14.5); RDW Standard Deviation 45.4 fL (36.4-46.3); Red Blood Count 3.71 M/uL (4.70-6.10); White Blood Count 6.78 K/ul (4.8-10.8)
[2024-06-21 06:58] LABS: BUN Creatinine Ratio 17.7 (10-20); Calcium 9.1 mg/dl (8.6-10.3); Creatinine Clr Calc Pharmacy 37.3 ml/min; Potassium 4.5 mmol/L (3.5-5.1)
[2024-06-21 08:09] VITALS: BP 116/74; RESP 19; TEMP 97.9; O2SAT 94
--- NOTE | 2024-06-21 09:17 | Discharge Summary ---
Date of Service June 21, 2024 Admission HPI Per Admitting Provider Enrique is a 68-year-old male with PMH of cardiac arrest (approximately 3 years ago), CAD, GERD, HTN, PAD, dyslipidemia, and diabetes. He presented on 06/18 for squeezing, substernal chest pain that woke him from sleep around 0300 this morning. Patient reports the pain is constant; rates it 8/10 at worst, and 5/10 after receiving pain medicine (fentanyl) in the emergency department. The pain was initially not improved with nitroglycerin. The pain does not radiate to his back, but does radiate to his shoulders bilaterally. He is unsure if it feels similar to his past episode of cardiac arrest. He is unsure if it is worse with exertion. Patient has not had anything to eat today. He does report that it is painful to take deep breaths in and out. No prior history of DVT/PE. He is not currently on blood thinners. Additionally, patient may have experienced a syncopal episode yesterday. He was standing at his kitchen sink, when he began to feel a "funny sensation" in his body. He reports this could have been dizziness or lightheadedness. He then ended up on the floor. He is unsure how long he was on the floor for, but does not believe he struck his head. Patient lives with his , but she was at work at the time so this was unwitnessed. Patient ambulates with a walker at home. Patient did not take his regular morning medicine today; no recent change in medications. His manages the medication at home. Patient denies history of heart stents; not currently on aspirin and Plavix. No sick contacts. No recent change in diet. He denies any recent injuries to his chest wall. He does have a history of pancreatitis. He denies smoking, tobacco use, chewing tobacco, or recent alcohol use. Patient reports that he is not currently on blood thinners; he was previously on anticoa gulation following his right ankle surgery in March, but his Eliquis was discontinued 1 month ago. He denies bleeding disorders or any problems with being on blood thinners or antiplatelets in the past; he denies history of GI bleeds, brain bleeds, or stroke. He does have a grandson who is 3 to 4 months old (born the day before ). Patient's vitals are stable at time of admission. ED course: Aspirin 324 mg p.o. 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 Patient denies fever, chills, nightsweats, dizziness/lightheadedness with walking around, headache, chest palpitations, hemoptysis, abdominal pain, N/V, burning with urination, or blood in the urine/stool. Admission Exam (Per Admitting) Constitutional The patient is awake, alert and oriented 3, well developed and well nourished, normocephalic and atraumatic, lying in bed and in no acute distress. HEENT--PERRL, EOMI, mucous membranes and oropharynx mildly dry Neck--supple. No JVD. No bruits. Thyroid normal, trachea midline, no adenopathy. Heart--normal S1 and S2. No murmurs, rubs or gallops. Lungs--clear bilaterally, no respiratory distress, no accessory muscle use. Abdomen--normal bowel sounds and soft. Extremities--no cyanosis or clubbing. No edema. Dermatologic--normal skin turgor, normal color, no abnormal lymph nodes, no rash. Neurologic--cranial nerves II through XII grossly intact. Rheumatologic--normal range of motion. Psychiatric--normal affect. Discharge Data Consultations 06/18/24 09:50 Consult Cardiology Routine 06/18/24 09:59 ED Decision to Admit Stat Hospital Course (1) Pulmonary embolism: (2) Chest pain: (3) Syncope: Jenny Nunez presented on the morning of 06/18 for squeezing, substernal chest pain that woke him from sleep at 0300. Coming in for suspected pulmonary embolism. #Chest pain/pressure H/o cardiac arrest + significant cardiac RFs Troponin WNL x 2 EKG without acute changes Chest pressure much improved No evidence of PE on Chest CT angio ECHO EF 65-70%, no wall motion abnormality, no valvular abnormality, small pericardial effusion, no tamponade Cardiology was consulted D Dimer is elevated Lower extremity duplex did not suggest DVT #Syncopal episode on 06/17/suspected pulmonary embolism Patient is unsure if he just fell or blacked out; does not believe he hit his head Head/cervical spine CT revealed no acute or traumatic findings Patient does endorse pleuritic CP on admission ECHO EF 65-70%, no wall motion abnormality, no valvular abnormality, small pericardial effusion, no tamponade #Remote history of right ankle fracture Open fracture, dislocation of the right ankle on 03/13 with ORIF and washout; removal of external fixator, right ankle subtalar joint fusion 03/25 Discharged from the hospital on Eliquis; however, Eliquis was discontinued on 05/25 Not currently on anticoagulation #History of cardiac arrest Noted; cardiac cath on 11/05/2021 revealed severe mid LAD disease (70 to 80% by IVUS) #CKD BUN 45, creatinine 2.10 (around baseline) on admission Avoid nephrotoxic agents where possible #T2DM Last A1c at 6.0% on 03/17/2024 Hold metformin, empagliflozin, Mounjaro Patient normally takes Lantus 10 units QAM Lantus 5 u BID while inpatient SSI with target BSG range 110-140mg/dL, CF 50, carb ratio 15 T2DM diet BSG ACHS Adjust regimen as needed AM A1c Chronic stable conditions: #HLDatorvastatin #GERDpantoprazole #BPHtamsulosin Disposition: d/c home. Follow up with cardiology and nephrology Full code Heart healthy, T2DM diet VTE PPx: Heparin IV Coding Level of Care Code 53059 INP/OBS DISCH >30 MIN Diagnoses Pulmonary embolism I26.99 Chest pain R07.9 Syncope R55 Time Spent (min) 35
[2024-06-21 10:42] VITALS: PULSE 84
--- NOTE | 2024-06-23 04:36 | Coding Query ---
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 Please assist us with the question(s) below: Coding Question(s): The diagnosis(es) below was documented throughout the chart, but then on Discharge Summary states "No evidence of PE on Chest CT angio." Please indicate if it is still a possible diagnosis or ruled out. If ruled out, please clarify final dx/reason for admission. Physician's Response(s): Pulmonary Embolism ( ) Diagnosed and POA ( ) Diagnosed and not POA ( x ) Ruled out ( ) Other (please specify) Other: ( ) Diagnosed and POA ( ) Diagnosed and not POA ( x ) Ruled out ( ) Other (please specify) MTDD
--- NOTE | 2024-06-24 17:42 | Electrocardiogram Report ---
Test Reason : Blood Pressure : */* mmHG Vent. Rate : 106 BPM Atrial Rate : * BPM P-R Int : * ms QRS Dur : 78 ms QT Int : 326 ms P-R-T Axes : * -3 44 degrees QTcB Int : 433 ms Atrial fibrillation with rapid ventricular response ST elevation, consider early repolarization, pericarditis, or injury Abnormal ECG When compared with ECG of 18-Jun-2024 06:44, Atrial fibrillation has replaced Sinus rhythm Confirmed by Devang Franco ([id number]) on 06/24/2024 5:41:59 PM Referred By: REFERRED SELF Confirmed By: Devang Franco
== END 2024-06-21 12:29 | disposition home or self-care (01) | DRG 313 ==
LOC: ED 05:57 → SUATTDRO 11:42 → EDINP 11:42 → 4W 13:41

== ENCOUNTER 2024-07-07 11:20 | Inpatient (IN) ==
[2024-07-07] MEDS: SODIUM CHLORIDE 0.9% 1,000 ML IV ONE (11:46)
[2024-07-07] MEDS: ONDANSETRON INJ 2 MG/ML 2 ML VIAL IV STA (11:46)
[2024-07-07] MEDS: MoRPHine SULFATE 4 MG/ML 1 ML CARP\\VIAL IV STA ×2 (11:46→12:54)
--- NOTE | 2024-07-07 11:46 | Emergency Department Note ---
Impression & Plan Abdominal pain, Pancreatitis, Vomiting, CKD (chronic kidney disease) ED Provider Note NAME: RICCI BEAR Jr AGE: 68 SEX: M : 1955 ARRIVES VIA: Walk-In INFORMANT: Patient ED PROVIDER(S): Jorge Heredia DO CHIEF COMPLAINT: Abdominal pain HPI: Patient is a 68-year-old male with a past medical history of pericardial effusion, diabetes, morbid obesity, who presents to the ER for abdominal pain which has been present since this past Friday. Denies any headache or change in vision. No chest pain or shortness of breath. Pain feels like his previous bouts of pancreatitis. No dysuria, urgency or frequency. No other exacerbating or remitting factors. Does have a history of a previous cholecystectomy. Still has his appendix. ADDITIONAL HISTORY OBTAINED: Per HPI Chronic Medical/Social Conditions Affecting Care: Per HPI PAST MEDICAL HISTORY:See Below PAST SURGICAL HISTORY:See Below FAMILY HISTORY:See Below SOCIAL HISTORY:See Below HOME MEDICATIONS:See Below ALLERGIES:See Below VITALS:See Below PHYSICAL EXAMINATION: GENERAL: Sitting up in bed, alert, chronically ill-appearing, disheveled EYE EXAM: normal conjunctiva. PERRL and EOM's grossly intact. OROPHARYNX: no exudate, no erythema, lips, buccal mucosa, and tongue normal and mucous membranes are moist NECK: supple, no nuchal rigidity, no adenopathy, non-tender LUNGS: Clear to auscultation. Normal chest wall mechanics HEART: no murmurs, S1 normal and S2 normal ABDOMEN: abdomen soft, tender periumbilical, normo-active bowel sounds, no masses, no rebound or guarding. UPPER EXTREMITIES: upper extremities are grossly normal. LOWER EXTREMITIES: No pitting edema. NEURO EXAM: Normal sensorium, cranial nerves II-XII grossly intact, normal speech, no gross weakness of arms, no gross weakness of legs. MEDICAL DECISION MAKING: Patient is a 68-year-old male who presents ER for abdominal pain which is present since Friday. IV was established and blood work was obtained. Labs show no significant leukocytosis. Mild anemia 11.4. BMP with a creatinine of 1.85 fairly consistent with previous. LFTs and bilirubin were unremarkable. Lipase was slightly up at 100. UA without infection. CT abdomen pelvis confirms pancreatitis. Patient was given IV fluids, Zofran and 2 rounds of IV morphine. He was updated bedside. Previous history of cholecystectomy. Case was discussed with the hospitalist for further evaluation management treatment. Consults/Care Managements Discussions: Per MDM Triage Nursing notes reviewed. Limited review of prior medical records performed Vital Signs: reviewed and remarkable for no significant abnormalities Differential diagnosis: Differential diagnoses includes but is not limited to gastritis, peptic ulcer disease, GERD, gallbladder disease, pancreatitis, small bowel obstruction, appendicitis, diverticulitis, hernia, urinary tract infection, torsion, perforation, trauma, infectious. ER treatment provided: See below Diagnostics interpreted by me include EKG and cardiac monitoring as listed below: -Cardiac Monitoring: An order was placed for continuous cardiac monitoring. The monitor shows a rate of 110 with sinus rhythm. -ECG: none -Laboratory studies:Interpreted by me as stated above in MDM and shown below. Imaging studies: Xrays: As interpreted by me:none CTs show: CT abdomen pelvis per my preliminary interpretation showed a left lower lobe pleural effusion CT and pelvis per radiology as described above Procedures:none Critical Care: None Past Med/Surg History Problem List (Updated 07/07/24 @ 13:17 by Jorge Heredia DO) CKD (chronic kidney disease) (Acute) Vomiting (Acute) Pancreatitis (Acute) Abdominal pain (Acute) Pericardial effusion Syncope (Acute) Chest pain (Acute) Open fracture dislocation of right ankle Diabetic neuropathy Chronic ulcer of left foot with necrosis of bone Morbid obesity with BMI of 50.0-59.9, adult Tachycardia WYNN (dyspnea on exertion) Venous ulcer of right leg Diabetic foot ulcer (Acute) Chronic constipation Chronic venous insufficiency Urinary urgency Diabetic nephropathy associated with type 2 diabetes mellitus CKD stage 3 due to type 2 diabetes mellitus Diabetes type 2, controlled Class 3 obesity Status post partial amputation of foot Complex sleep apnea syndrome Nocturnal hypoxemia Psoriasis (Chronic) Nonproliferative diabetic retinopathy (Chronic) Disc degeneration, lumbar (Chronic) Diabetes mellitus with diabetic polyneuropathy (Chronic) Depression (Chronic) GERD (gastroesophageal reflux disease) (Chronic) CAD (coronary artery disease) (Chronic) Chronic, heavily calcified severe mid LAD disease (70 to 80% by IVUS) per 11/05/21 cardiac cath- medically managed Hypertension (Chronic) PAD (peripheral artery disease) (Chronic) Dyslipidemia (Chronic) CKD (chronic kidney disease) (Chronic) Cardiopulmonary arrest with successful resuscitation (Chronic) - 11/06/2021, [facility]>"in to have a PICC line placed for abx tx, flatlined" - Etiology of arrest seems unclear- seems that this was a PEA arrest per 11/06/21 cardio note BPH loc w urin obs/LUTS (Chronic Unknown) Medical History (Updated 07/07/24 @ 13:17 by Jorge Heredia DO) Hx MRSA infection History of colon polyps Surgical History (Updated 06/25/24 @ 00:06 by Richie Gauthier) H/O kyphoplasty (2022) following L1 burst fracture Status post amputation of toe of left foot History of cardiac cath following an unexplained cardiac arrest>per medical record>11/05/21, [facility], no stents Status post amputation of left great toe History of incision and drainage Hx of I&D of mendel-rectal abscess History of cataract surgery bilt History of cholecystectomy History of tooth extraction History of colonoscopy Colonoscopy 01/21/[address] Garg. History of adenoidectomy History of tonsillectomy Status post uvulopalatopharyngoplasty S/P foot surgery, left Family History Mother Family history of diabetes mellitus Father History of alcoholism History of liver cancer Sister Cancer Denies family history of Ovarian cancer Prostate cancer Crohn's disease Breast cancer Colorectal cancer Social History Smoking Status: Never smoker Tobacco Type: Declines Age Started Using Tobacco: 18; Age Quit Using Tobacco: 48; packs per day: 1.5; Second Hand Exposure: No; Do You Dip or Chew Tobacco: No; Hx Alcohol Use: No Hx Substance Use: No Preferred Language: Tunisian Communication Ability: Effective Visual Impairment: No Limitations Hearing Ability: Normal Billing Checker Required: No Beliefs That Will Affect Care: None marital status: Current Living Situation: Spouse Current Living Situation Comment: Lives with and dog current occupational status: employed 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 Feels Safe at Home: Yes Childhood Exposure to Second-Hand Smoke: Yes Diet: regular Diet Comment: "tries to feed me right, but sometimes it doesn't always happen" caffeine: Yes during the past year weight has: remained stable Physical Activity Frequency: Does not Exercise Seatbelt Use: never Do you think of yourself as: straight/heterosexual Assistive Devices: Walker Allergies Allergies Allergy/AdvReac Type Severity Reaction Status Date / Time No Known Allergies Allergy Verified 07/07/24 13:07 Home Meds Home Medications Medication Instructions Recorded Confirmed lancets (Accu-Chek Fastclix Lancet 08/23/20 07/07/24 Drum) cyanocobalamin (vitamin B-12) 1,000 mcg PO DAILY 12/26/23 07/07/24 1,000 mcg capsule cholecalciferol (vitamin D3) 25 25 mcg PO DAILY 03/01/24 07/07/24 mcg (1,000 unit) tablet (Vitamin D3) melatonin 10 mg capsule 10 mg PO HS PRN Sleep 05/14/24 07/07/24 acetaminophen 650 mg 650 mg PO Q6H 05/20/24 07/07/24 tablet,extended release (Tylenol 8 Hour) insulin lispro 100 unit/mL 10 unit subcut BID 05/20/24 07/07/24 subcutaneous pen tadalafil 2.5 mg tablet 2.5 mg PO UD 06/18/24 07/07/24 tirzepatide 5 mg/0.5 mL mg subcut 06/28/24 07/07/24 subcutaneous pen injector (Rahcel) Previous Rx's Medication Instructions Recorded FreeStyle Remigio 2 [place] (flash #1 ea 01/24/21 glucose scanning reader) FreeStyle Remigio 2 Sensor (flash #7 ea 01/24/21 glucose sensor) metformin 500 mg tablet 500 mg PO BID 90 days #180 tabs 06/24/23 pantoprazole 40 mg tablet,delayed 40 mg PO BID #180 tabs 09/09/23 release (Protonix) sodium zirconium cyclosilicate 10 10 g PO DAILY #30 ea 01/29/24 gram oral powder packet atorvastatin 10 mg tablet (Lipitor) 10 mg PO HS #90 tabs 02/24/24 duloxetine 20 mg capsule,delayed 20 mg PO BID #180 caps 02/24/24 release (Cymbalta) empagliflozin 25 mg tablet 25 mg PO QAM #90 tabs 02/24/24 (Jardiance) pen needle, diabetic 31 gauge x #400 ea 02/24/24 3/16" (BD Ultra-Fine Mini Pen Needle) oxycodone 5 mg tablet 5 mg PO Q6H PRN pain #30 tabs 03/15/24 albuterol sulfate 90 mcg/actuation 2 puff inhalation Q6H PRN 05/20/24 aerosol inhaler shortness of breath or wheezing #6.7 grams furosemide 20 mg tablet (Lasix) 20 mg PO DAILY #90 tabs 05/20/24 metoprolol succinate 25 mg 25 mg PO DAILY #90 tabs 05/20/24 tablet,extended release 24 hr tamsulosin 0.4 mg capsule 0.4 mg PO HS #30 caps 05/20/24 Saccharomyces boulardii 250 mg 250 mg PO BID #60 caps 05/25/24 capsule (Florastor) blood sugar diagnostic (OneTouch #100 ea 05/25/24 Verio test strips) blood-glucose meter (OneTouch #1 ea 05/25/24 Verio Flex Meter) insulin glargine 100 unit/mL (3 10 unit (0.1 mL) subcut QAM #15 mL 05/25/24 mL) subcutaneous pen (Carmelo Pandya U-100 Insulin) aspirin 81 mg tablet,delayed 81 mg PO DAILY #30 tabs 06/24/24 release famotidine 20 mg tablet 20 mg PO BID PRN heartburn #60 tabs 06/28/24 gabapentin 100 mg capsule 200 mg (2 x 100 mg) PO DAILY #60 06/28/24 caps ondansetron HCl 4 mg tablet 4 mg PO Q8H PRN nausea and 06/28/24 vomiting #30 tabs Results & Data (ED) Vital Signs Vital Signs - 24 hr 07/07/24 11:22 07/07/24 11:49 07/07/24 11:49 Temperature 36.9 C Temperature Source Temporal Artery Scan Pulse Rate 120 H 105 H Pulse Rate [Apical] 105 H Pulse Rhythm Irregular Pulse Rhythm [Apical] Irregular Respiratory Rate 20 16 16 Respiratory Effort / Characteristics Non-Labored Non-Labored Respiratory Depth Normal Normal Blood Pressure 161/103 H Blood Pressure [Left Arm] 165/102 H Blood Pressure Mean 122 Blood Pressure Mean [Left Arm] 123 Pulse Oximetry 96 93 93 Oxygen Delivery Method Room Air Room Air Room Air Sepsis Recent Fever Within 48 Hours No Sepsis New/Unexplained Change in Mental Status No Sepsis Action Taken by Nursing No Action Required 07/07/24 12:44 Temperature Temperature Source Pulse Rate 107 H Pulse Rate [Apical] Pulse Rhythm Pulse Rhythm [Apical] Respiratory Rate Respiratory Effort / Characteristics Respiratory Depth Blood Pressure Blood Pressure [Left Arm] Blood Pressure Mean Blood Pressure Mean [Left Arm] Pulse Oximetry Oxygen Delivery Method Sepsis Recent Fever Within 48 Hours Sepsis New/Unexplained Change in Mental Status Sepsis Action Taken by Nursing Laboratory Data 07/07/24 11:40 07/07/24 11:40 Lab Results 07/07/24 07/07/24 Range/Units 11:40 11:50 WBC 9.44 (4.8-10.8) K/ul RBC 4.41 L (4.70-6.10) M/uL Hgb 11.4 L (14.0-18.0) g/dl POC Hgb 11.9 L (14.0-18.0) g/dl Hct 36.0 L (42.0-52.0) % POC Hct 35 L (42-52) % MCV 81.6 (80.0-100.0) fL MCH 25.9 (25.0-34.0) pg MCHC 31.7 L (32.0-36.0) g/dL RDW Std Deviation 46.9 H (36.4-46.3) fL RDW Coeff of Mejia 15.9 H (11.5-14.5) % Plt Count 303 (130-400) K/uL MPV 8.1 L (9.4-12.4) fL Immature Gran % (Auto) 1.2 % Neut % (Auto) 78.0 % Lymph % (Auto) 12.5 % [place] % (Auto) 7.1 % Eos % (Auto) 0.8 % Baso % (Auto) 0.4 % Neut # (Auto) 7.36 H (1.40-6.50) K/uL Lymph # (Auto) 1.18 L (1.20-3.40) K/uL [place] # (Auto) 0.67 H (0.11-0.59) K/uL Eos # (Auto) 0.08 (0.00-0.50) K/uL Baso # (Auto) 0.04 (0.00-0.20) K/uL Immature Gran # (Auto) 0.11 (0.01-0.20) K/uL POC Sodium 141 (135-144) mmol/L Sodium 140 (136-145) mmol/L POC Potassium 4.8 (3.3-5.0) mmol/L Potassium 4.9 (3.5-5.1) mmol/L POC Chloride 105 (101-112) mmol/L Chloride 104 (98-107) mmol/L Carbon Dioxide 25 (21-32) mmol/L POC Total CO2 21 L (24-31) mmol/L Anion Gap 11 (3-11) POC Anion Gap 20.0 (16-25) mmol/L POC BUN 25 H (7-18) mg/dl BUN 26 H (6-23) mg/dl Creatinine 1.85 H (0.6-1.4) mg/dl POC Creatinine 1.9 H (0.6-1.3) mg/dl Est Cr Clr Drug Dosing 54.0 ml/min eGFR 39.18 BUN/Creatinine Ratio 14.1 (10-20) Glucose 192 H (70-99(Fasting)) mg/dl POC Glucose (other) 190 H (70-99) mg/dl Calcium 9.6 (8.6-10.3) mg/dl POC Ioniz Calcium Wen 1.19 (1.12-1.32) mmol/l Total Bilirubin 0.4 (0.2-1.0) mg/dl AST 8 L (13-39) U/L ALT 7 (7-52) U/L Alkaline Phosphatase 168 H (34-104) U/L Total Protein 8.5 H (6.0-8.3) gm/dl Albumin 3.5 (3.4-5.0) gm/dl Globulin 5.0 H (2.5-4.0) gm/dl Albumin/Globulin Ratio 0.7 L (0.9-2) Lipase 100 H (11-82) U/L Urine Color Yellow Urine Appearance Clear (Clear) Urine pH 5.5 (4.5-7.5) Ur Specific [place] 1.026 (1.000-1.030) Urine Protein 4+ H (Negative) Urine Glucose (UA) 3+ H (Negative) Urine Ketones 2+ H (Negative) Urine Blood 2+ H (Negative) Urine Nitrite Negative (Negative) Urine Bilirubin Negative (Negative) Urine Urobilinogen Negative (Negative) Ur Leukocyte Esterase Negative (Negative) Urine WBC (Auto) 0-5 (0-5) /hpf Urine RBC (Auto) 0-2 (0-2) /hpf U Hyaline Cast (Auto) >20 H (0-2) /lpf U Epithel Cells (Auto) 3-5 H (0-2) /hpf Urine Bacteria (Auto) 2+ H (None Seen) Hyaline Casts Present A (None Presnt) /lpf Granular Casts Present A (None Prsent) /lpf Administered Medications Discontinued Medications Sodium Chloride (Nss) 1,000 mls @ 999 mls/hr IV .Q1H1M ONE Stop: 07/07/24 12:29 Last Admin: 07/07/24 11:46 Dose: 999 mls/hr Documented By: MEGHANN Morphine Sulfate (Morphine Sulfate 4 Mg/Ml 1 Ml Carp\\Vial) 4 mg IV NOW STA Stop: 07/07/24 11:35 Last Admin: 07/07/24 11:46 Dose: 4 mg Documented By: MEGHANN Morphine Sulfate (Morphine Sulfate 4 Mg/Ml 1 Ml Carp\\Vial) 4 mg IV NOW STA Stop: 07/07/24 12:46 Last Admin: 07/07/24 12:54 Dose: 4 mg Documented By: MEGHANN Ondansetron HCl (Ondansetron Inj 2 Mg/Ml 2 Ml Vial) 4 mg IV NOW STA Stop: 07/07/24 11:35 Last Admin: 07/07/24 11:46 Dose: 4 mg Documented By: MEGHANN Imaging Data Radiologist's Impression: Abdomen/Pelvis CT 07/07/24 11:52 CT OF THE ABDOMEN AND PELVIS WITHOUT CONTRAST CLINICAL HISTORY: mid abd pain gabi ? pancreatitis COMPARISON STUDY: CT of the abdomen and pelvis June 18, 2014. TECHNIQUE: Axial images of the abdomen and pelvis were obtained without IV contrast. Images were reviewed in the axial, sagittal, and coronal planes. Automated exposure control was utilized for the study. A dose lowering technique was utilized adhering to the principles of ALARA. FINDINGS: A small pericardial effusion has slightly increased in size. There may be pericardial thickening. Small left and trace right pleural effusions have developed since prior CT. No pneumatosis, free air or portal venous gas is present. No renal, ureteral or bladder calculi are present. There is no hydronephrosis or hydroureter. Evaluation of the remainder of the abdomen and pelvis is suboptimal as unenhanced exam. There is hepatic steatosis. There is no biliary ductal dilatation status post cholecystectomy. Subtle peripancreatic stranding has developed since prior CT. Spleen, right adrenal gland and kidneys are unremarkable. Low-attenuation 2.5 cm left adrenal nodule is unchanged from earlier exams. This represents an adenoma. There is no evidence for a bowel obstruction. There is apparent wall thickening of portions of the colon. There is no lymphadenopathy. Prominent para-aortic lymph nodes are unchanged. These are likely benign. L1 compression fracture status post vertebroplasty is unchanged in appearance. IMPRESSION: 1. Interval development of mild peripancreatic stranding consistent with acute pancreatitis. No peripancreatic fluid collections. 2. No biliary ductal dilatation status post cholecystectomy. 3. Mild increase in size of a small pericardial effusion. Possible pericardial thickening. Pericarditis cannot be excluded. 4. Interval small left and trace right pleural effusions. 5. Apparent wall thickening of portions of the colon. This is likely due to underdistention however a mild nonspecific colitis could appear similar. No bowel obstruction. 6. No urinary calculi. No hydronephrosis. ACT 112: Negative or not required by law. Electronically signed by: Guillaume Sales M.D. 07/07/2024 12:36 PM Discharge Plan Visit Data Chief Complaint: Abdominal Pain Stated Complaint: PANCREATITIS ED Provider: Jorge Heredia Discharge Problem: Abdominal pain, Pancreatitis, Vomiting, CKD (chronic kidney disease) Forms Stand Alone Forms: [facility] [employer] Prescriptions Prescriptions: No Action cyanocobalamin (vitamin B-12) 1,000 mcg capsule 1,000 mcg PO DAILY (DME) FreeStyle Remigio 2 [place] [facility] See Rx Instructions .Route Qty: 1 0RF Rx Instructions: Use to monitor blood sugars daily (DME) FreeStyle Remigio 2 Sensor Kit See Rx Instructions .Route Qty: 7 3RF Rx Instructions: Change sensor every 14 days metformin 500 mg tablet 500 mg PO BID 90 Days Qty: 180 3RF pantoprazole [Protonix] 40 mg tablet,delayed release (DR/EC) 40 mg PO BID Qty: 180 2RF sodium zirconium cyclosilicate 10 gram powder in packet 10 g PO DAILY Qty: 30 2RF Patient Comments: doesn't always take it every day Rx Instructions: 2 HOURS AFTER MEDS GIVEN. duloxetine [Cymbalta] 20 mg capsule,delayed release(DR/EC) 20 mg PO BID Qty: 180 3RF Jardiance 25 mg tablet 25 mg PO QAM Qty: 90 3RF atorvastatin [Lipitor] 10 mg tablet 10 mg PO HS Qty: 90 3RF (DME) pen needle, diabetic [BD Ultra-Fine Mini Pen Needle] 31 gauge x 3/16" needle .ROUTE .MEDSUPPLY Qty: 400 3RF Rx Instructions: use 4 needles daily insulin glargine [Basaglar KwikPen U-100 Insulin] 100 unit/mL (3 mL) insulin pen 10 unit subcut QAM Qty: 15 3RF Rx Instructions: ( states dc CC 05/19 pt started mounjaro 2.5 mg and decreased dose to 10 units instead of 80 due to bsg's low) (DME) blood-glucose meter [OneTouch Verio Flex meter] [facility] See Rx Instructions .ROUTE .MEDSUPPLY Qty: 1 0RF Rx Instructions: use to test blood sugar As directed (DME) OneTouch Verio test strips Strip See Rx Instructions .ROUTE .MEDSUPPLY Qty: 100 3RF Rx Instructions: test blood sugar one time daily (DME) lancets [Accu-Chek Fastclix Lancet Drum] [facility] See Rx Instructions .ROUTE .MEDSUPPLY Rx Instructions: test blood sugar 1 x daily melatonin 10 mg capsule 10 mg PO HS PRN (Reason: Sleep) Saccharomyces boulardii [Florastor] 250 mg capsule 250 mg PO BID Qty: 60 5RF albuterol sulfate 90 mcg/actuation HFA aerosol inhaler 2 puff inhalation Q6H PRN (Reason: shortness of breath or wheezing) Qty: 6.7 0RF insulin lispro 100 unit/mL insulin pen 10 unit subcut BID Rx Instructions: [place] CC 05/19/24 tamsulosin 0.4 mg capsule 0.4 mg PO HS Qty: 30 5RF Rx Instructions: ( NOT SURE IF PATIENT IS ON THIS MED) acetaminophen [Tylenol 8 Hour] 650 mg tablet extended release 650 mg PO Q6H furosemide [Lasix] 20 mg tablet 20 mg PO DAILY Qty: 90 3RF metoprolol succinate 25 mg tablet extended release 24 hr 25 mg PO DAILY Qty: 90 3RF Mounjaro 5 mg/0.5 mL pen injector subcut famotidine 20 mg tablet 20 mg PO BID PRN (Reason: heartburn) Qty: 60 5RF ondansetron HCl 4 mg tablet 4 mg PO Q8H PRN (Reason: nausea and vomiting) Qty: 30 5RF gabapentin 100 mg capsule 200 mg PO DAILY Qty: 60 2RF aspirin 81 mg tablet,delayed release (DR/EC) 81 mg PO DAILY Qty: 30 2RF cholecalciferol (vitamin D3) [Vitamin D3] 25 mcg (1,000 unit) tablet 25 mcg PO DAILY tadalafil 2.5 mg tablet 2.5 mg PO UD Rx Instructions: 2.5 mg po daily. not sure on this one, has list at home. oxycodone 5 mg tablet 5 mg PO Q6H PRN (Reason: pain) Qty: 30 0RF Referrals Referrals: Dora Sales MD [Primary Care Provider] - Discharge Problem: Abdominal pain Qualifiers: Abdominal location: unspecified location Qualified Code(s): R10.9 - Unspecified abdominal pain Pancreatitis Qualifiers: Chronicity: acute Pancreatitis type: unspecified pancreatitis type Acute pancreatitis complication: unspecified Qualified Code(s): K85.90 - Acute pancreatitis without necrosis or infection, unspecified Vomiting Qualifiers: Vomiting type: unspecified Nausea presence: unspecified Qualified Code(s): R 11.10 - Vomiting, unspecified CKD (chronic kidney disease) Qualifiers: Chronic kidney disease stage: on chronic dialysis Qualified Code(s): N18.6 - End stage renal disease; Z99.2 - Dependence on renal dialysis
[2024-07-07 11:55] LABS: Basophils # (auto) 0.04 K/uL (0.00-0.20); Basophils % (auto) 0.4 %; Eosinophils # (auto) 0.08 K/uL (0.00-0.50); Eosinophils % (auto) 0.8 %; Hemoglobin 11.4 g/dl (14.0-18.0); Immature Granulocytes # (auto) 0.11 K/uL (0.01-0.20); Immature Granulocytes % (auto) 1.2 %; Lymphocytes # (auto) 1.18 K/uL (1.20-3.40); Lymphocytes % (auto) 12.5 %; Mean Corpuscular Hemoglobin 25.9 pg (25.0-34.0); Mean Corpuscular Hgb Conc 31.7 g/dL (32.0-36.0); Mean Corpuscular Volume 81.6 fL (80.0-100.0); Mean Platelet Volume 8.1 fL (9.4-12.4); Monocytes # (auto) 0.67 K/uL (0.11-0.59); Monocytes % (auto) 7.1 %; Neutrophils # (auto) 7.36 K/uL (1.40-6.50); Platelet Count 303 K/uL (130-400); RDW Coefficient of Variation 15.9 % (11.5-14.5); RDW Standard Deviation 46.9 fL (36.4-46.3); Red Blood Count 4.41 M/uL (4.70-6.10); White Blood Count 9.44 K/ul (4.8-10.8)
[2024-07-07 12:02] LABS: iSTAT Creatinine 1.9 mg/dl (0.6-1.3); iSTAT Hemoglobin 11.9 g/dl (14.0-18.0); iSTAT Ionized Calcium 1.19 mmol/l (1.12-1.32); iSTAT Potassium 4.8 mmol/L (3.3-5.0)
[2024-07-07 12:28] LABS: Appearance Urine Clear (Clear); Bacteria Urine Automated 2+ (None Seen); Bilirubin Urine Negative (Negative); Blood Urine 2+ (Negative); Cast Urine Automated >20 /lpf (0-2); Color Urine Yellow; Glucose Urine UA 3+ (Negative); Granular Casts Urine Present /lpf (None Prsent); Hyaline Casts Urine Present /lpf (None Presnt); Ketones Urine 2+ (Negative); Leukocyte Esterase Urine Negative (Negative); Nitrite Urine Negative (Negative); Protein Urine 4+ (Negative); RBC Urine Automated 0-2 /hpf (0-2); Specific Gravity Urine 1.026 (1.000-1.030); Urobilinogen Urine Negative (Negative); WBC Urine Automated 0-5 /hpf (0-5); pH Urine 5.5 (4.5-7.5)
--- NOTE | 2024-07-07 12:37 | CT Scan Report ---
CT OF THE ABDOMEN AND PELVIS WITHOUT CONTRAST CLINICAL HISTORY: mid abd pain gabi ? pancreatitis COMPARISON STUDY: CT of the abdomen and pelvis June 18, 2014. TECHNIQUE: Axial images of the abdomen and pelvis were obtained without IV contrast. Images were revi ewed in the axial, sagittal, and coronal planes. Automated exposure control was utilized for the murali dy. A dose lowering technique was utilized adhering to the principles of ALARA. FINDINGS: A small pericardial effusion has slightly increased in size. There may be pericardial thick ening. Small left and trace right pleural effusions have developed since prior CT. No pneumatosis, fr ee air or portal venous gas is present. No renal, ureteral or bladder calculi are present. There is n o hydronephrosis or hydroureter. Evaluation of the remainder of the abdomen and pelvis is suboptimal as unenhanced exam. There is hepatic steatosis. There is no biliary ductal dilatation status post cho lecystectomy. Subtle peripancreatic stranding has developed since prior CT. Spleen, right adrenal gla nd and kidneys are unremarkable. Low-attenuation 2.5 cm left adrenal nodule is unchanged from earlier exams. This represents an adenoma. There is no evidence for a bowel obstruction. There is apparent w all thickening of portions of the colon. There is no lymphadenopathy. Prominent para-aortic lymph nod es are unchanged. These are likely benign. L1 compression fracture status post vertebroplasty is unch anged in appearance. IMPRESSION: 1. Interval development of mild peripancreatic stranding consistent with acute pancreatitis. No perip ancreatic fluid collections. 2. No biliary ductal dilatation status post cholecystectomy. 3. Mild increase in size of a small pericardial effusion. Possible pericardial thickening. Pericardit is cannot be excluded. 4. Interval small left and trace right pleural effusions. 5. Apparent wall thickening of portions of the colon. This is likely due to underdistention however a mild nonspecific colitis could appear similar. No bowel obstruction. 6. No urinary calculi. No hydronephrosis. ACT 112: Negative or not required by law. Electronically signed by: Guillaume Sales M.D. 07/07/2024 12:36 PM
[2024-07-07 12:40] LABS: Albumin Globulin Ratio 0.7 (0.9-2); Albumin Level 3.5 gm/dl (3.4-5.0); BUN Creatinine Ratio 14.1 (10-20); Bilirubin,Total 0.4 mg/dl (0.2-1.0); Calcium 9.6 mg/dl (8.6-10.3); Potassium 4.9 mmol/L (3.5-5.1); Total Protein 8.5 gm/dl (6.0-8.3)
--- NOTE | 2024-07-07 13:37 | History & Physical Report ---
Date of Service July 07, 2024 Assessment & Plan (1) Pancreatitis: (2) Pericardial effusion: (3) UTI (urinary tract infection): (4) CKD stage 3 due to type 2 diabetes mellitus: Plan Patient is a 68-year-old male with past medical history of cardiac arrest (approximately 3 years ago), CAD, GERD, hypertension, PAD, HLD, and diabetes. Patient has had numerous readmissions this year, had a long hospitalization in March for a right ankle fracture dislocation and left foot osteomyelitis. He was recently admitted from 06/18 to 06/21 for chest pain and syncopal episode In which his workup was essentially negative, chest CTA negative, venous Dopplers negative, echocardiogram showed EF 65 to 70%, small pericardial effusion, mild pulmonary hypertension, mild LVH. he came into the ED today due to abdominal pain and was found to have a lipase of 100 and acute pancreatitis on CT scan. CT scan also mention pericardial thickening with concern for pericarditis. He is being admitted for pancreatitis and pericarditis workup. #Pancreatitis Does have noted history of pancreatitis, abdominal pain today feels similar; most recent episode 2014; history of cholecystectomy no leukocytosis Tachycardic (107) and hypertensive (165/102); suspect likely secondary to pain and missing a.m. medications lipase 100 CTAP admission mild peripancreatic stranding with acute Pancreatitis, status postcholecystectomy, no biliary ductal dilation, thickening of portions of colon (likely mild nonspecific colitis) continue with gentle fluid resuscitation with LR @ 80ml/hr x 1L clear liquids as tolerated Zofran, IV Tylenol prn, morphine 2-4mg prn for breakthrough pain Hold Lasix 20 Mg daily to avoid dehydration #Pericardial effusion AP CT showed pericardial effusion,concern for pericardial thickening/pericarditis, small left and trace right pleural effusions patient denies any chest pain Echocardiogram 06/19/2024 showed EF 65 to 70%, small pericardial effusion, mild LVH EKG ordered troponin ordered ESR 118 - of note patient's baseline sed rate appears to be around 80 echocardiogram ordered blood cultures ordered continue Tylenol IV sceduled monitor on tele #UTI Contaminant versus UTI although with CVA tenderness will cover with ABX AP CT showed no abnormalities of renal or urologic system UA Plus protein, 3+ glucose, 2+ ketones, 2+ blood, greater than 20 hyaline cast, 3-5 epithelial cells, 2+ bacteria will cover with amoxicillin Follow urine cultures #T2DM hold Jardiance, metformin, Mounjaro Suspect Mounjaro contributing to pancreatitis above on glargine 10 units every morning - reduced to 5U every morning with clear liquid diet Loose SSI goal 110-180, CF 25, defer carb ratio Expect need to tighten insulin control as diet progresses Chronic stable diagnoses: CKD - trace protein in UA, renal function improved from baseline, promote oral hydration history of right ankle fracture s/p ORIF 03/23, patient still with ambulatory dysfunction History of cardiac arrest - s/p cardiac cath 11/05/2021, severe mid LAD disease HLD continue atorvastatin and BB ASA GERD continue famotidine VTE ppx: heparin 5000u q12h Diet: clears, advance as tolerated to type II DM Dispo: med/telemetry Admission and Anticipated Discharge Date Admission Date: 07/07/24 History of Present Illness Chief Complaint: abd pain Primary Care Provider: Dora Sales MD Patient is a 68-year-old male with past medical history of cardiac arrest (approximately 3 years ago), CAD, GERD, hypertension, PAD, HLD, and diabetes. Patient has had numerous readmissions this year, had a long hospitalization in March for a right ankle fracture dislocation and left foot osteomyelitis. He was recently admitted from 06/18 to 06/21 for chest pain and syncopal episode In which his workup was essentially negative, chest CTA negative, venous Dopplers negative, echocardiogram showed EF 65 to 70%, small pericardial effusion, mild pulmonary hypertension, mild LVH. he came into the ED today due to abdominal pain and was found to have a lipase of 100 and acute pancreatitis on CT scan. CT scan also mention pericardial thickening with concern for pericarditis. He is being admitted for pancreatitis. Patient seen at bedside. he stated that he began with abdominal pain Friday after recently increasing his Mounjaro from 2.5 Mg to 5 Mg. He has been consistent 2.5 Mg for 4 months and believes this increase caused the pancreatitis. He has a history of pancreatitis most recent episode in 2014. He had his gallbladder removed and has not had an episode since. He stated his abdominal pain is in the right upper and lower side of his abdomen. He also endorses nausea, vomiting, and diarrhea for approximately a week. He has had decreased oral intake for the past week due to his stomach being upset. He endorses dizziness and lightheadedness however chronic and unchanged. He denies any chest pain, shortness of breath, urinary symptoms, no dysuria, hematuria, increase in urinary frequency. He stated his chest pain from the his admission in early June is resolved. He denies nicotine use or alcohol use, no history of chronic alcohol use. He has not taken his home medications in approximately 2 days due to his stomach being upset. Allergies Allergy/AdvReac Type Severity Reaction Status Date / Time No Known Allergies Allergy Verified 07/07/24 13:07 Home Medications Medication Instructions Recorded Confirmed Type lancets (Accu-Chek Fastclix Lancet 08/23/20 07/07/24 History Drum) FreeStyle Remigio 2 Eland (flash #1 ea 01/24/21 07/07/24 Rx glucose scanning reader) FreeStyle Remigio 2 Sensor (flash #7 ea 01/24/21 07/07/24 Rx glucose sensor) metformin 500 mg tablet 500 mg PO BID 90 days #180 tabs 06/24/23 07/07/24 Rx cyanocobalamin (vitamin B-12) 1,000 mcg PO DAILY 12/26/23 07/07/24 History 1,000 mcg capsule atorvastatin 10 mg tablet (Lipitor) 10 mg PO HS #90 tabs 02/24/24 07/07/24 Rx duloxetine 20 mg capsule,delayed 20 mg PO BID #180 caps 02/24/24 07/07/24 Rx release (Cymbalta) empagliflozin 25 mg tablet 25 mg PO QAM #90 tabs 02/24/24 07/07/24 Rx (Jardiance) pen needle, diabetic 31 gauge x #400 ea 02/24/24 07/07/24 Rx 3/16" (BD Ultra-Fine Mini Pen Needle) cholecalciferol (vitamin D3) 25 25 mcg PO DAILY 03/01/24 07/07/24 History mcg (1,000 unit) tablet (Vitamin D3) melatonin 10 mg capsule 10 mg PO HS PRN Sleep 05/14/24 07/07/24 History acetaminophen 650 mg 650 mg PO Q6H PRN Pain 05/20/24 07/07/24 History tablet,extended release (Tylenol 8 Hour) albuterol sulfate 90 mcg/actuation 2 puff inhalation Q6H PRN 05/20/24 07/07/24 Rx aerosol inhaler shortness of breath or wheezing #6.7 grams furosemide 20 mg tablet (Lasix) 20 mg PO DAILY #90 tabs 05/20/24 07/07/24 Rx insulin lispro 100 unit/mL 10 unit subcut BID 05/20/24 07/07/24 History subcutaneous pen metoprolol succinate 25 mg 25 mg PO DAILY #90 tabs 05/20/24 07/07/24 Rx tablet,extended release 24 hr Saccharomyces boulardii 250 mg 250 mg PO BID #60 caps 05/25/24 07/07/24 Rx capsule (Florastor) blood sugar diagnostic (OneTouch #100 ea 05/25/24 07/07/24 Rx Verio test strips) blood-glucose meter (OneTouch #1 ea 05/25/24 07/07/24 Rx Verio Flex Meter) insulin glargine 100 unit/mL (3 10 unit (0.1 mL) subcut QAM #15 mL 05/25/24 07/07/24 Rx mL) subcutaneous pen (Basaglar KwikPen U-100 Insulin) aspirin 81 mg tablet,delayed 81 mg PO DAILY #30 tabs 06/24/24 07/07/24 Rx release famotidine 20 mg tablet 20 mg PO BID PRN heartburn #60 tabs 06/28/24 07/07/24 Rx ondansetron HCl 4 mg tablet 4 mg PO Q8H PRN nausea and 06/28/24 07/07/24 Rx vomiting #30 tabs tirzepatide 5 mg/0.5 mL 5 mg subcut WK 07/07/24 07/07/24 History subcutaneous pen injector (Oleksandrunharitharo) Past Med/Surg History Problem List (Updated 07/07/24 @ 14:29 by Sera Benavides PA-C) UTI (urinary tract infection) CKD (chronic kidney disease) (Acute) Vomiting (Acute) Pancreatitis (Acute) Abdominal pain (Acute) Pericardial effusion Syncope (Acute) Chest pain (Acute) Open fracture dislocation of right ankle Diabetic neuropathy Chronic ulcer of left foot with necrosis of bone Morbid obesity with BMI of 50.0-59.9, adult Tachycardia WYNN (dyspnea on exertion) Venous ulcer of right leg Diabetic foot ulcer (Acute) Chronic constipation Chronic venous insufficiency Urinary urgency Diabetic nephropathy associated with type 2 diabetes mellitus CKD stage 3 due to type 2 diabetes mellitus Diabetes type 2, controlled Class 3 obesity Status post partial amputation of foot Complex sleep apnea syndrome Nocturnal hypoxemia Psoriasis (Chronic) Nonproliferative diabetic retinopathy (Chronic) Disc degeneration, lumbar (Chronic) Diabetes mellitus with diabetic polyneuropathy (Chronic) Depression (Chronic) GERD (gastroesophageal reflux disease) (Chronic) CAD (coronary artery disease) (Chronic) Chronic, heavily calcified severe mid LAD disease (70 to 80% by IVUS) per 11/05/21 cardiac cath- medically managed Hypertension (Chronic) PAD (peripheral artery disease) (Chronic) Dyslipidemia (Chronic) CKD (chronic kidney disease) (Chronic) Cardiopulmonary arrest with successful resuscitation (Chronic) - 11/06/2021, [facility]>"in to have a PICC line placed for abx tx, flatlined" - Etiology of arrest seems unclear- seems that this was a PEA arrest per 11/06/21 cardio note BPH loc w urin obs/LUTS (Chronic Unknown) Medical History (Updated 07/07/24 @ 14:29 by Sera Benavides PA-C) Hx MRSA infection History of colon polyps Surgical History (Updated 06/25/24 @ 00:06 by Richie Gauthier) H/O kyphoplasty (2022) following L1 burst fracture Status post amputation of toe of left foot History of cardiac cath following an unexplained cardiac arrest>per medical record>11/05/21, [facility], no stents Status post amputation of left great toe History of incision and drainage Hx of I&D of mendel-rectal abscess History of cataract surgery bilt History of cholecystectomy History of tooth extraction History of colonoscopy Colonoscopy 01/21/[address] Garg. History of adenoidectomy History of tonsillectomy Status post uvulopalatopharyngoplasty S/P foot surgery, left Family History Mother Family history of diabetes mellitus Father History of alcoholism History of liver cancer Sister Cancer Denies family history of Ovarian cancer Prostate cancer Crohn's disease Breast cancer Colorectal cancer Social History Smoking Status: Never smoker Tobacco Type: Declines Age Started Using Tobacco: 18; Age Quit Using Tobacco: 48; packs per day: 1.5; Second Hand Exposure: No; Do You Dip or Chew Tobacco: No; Hx Alcohol Use: No Hx Substance Use: No Preferred Language: Israeli Communication Ability: Effective Visual Impairment: No Limitations Hearing Ability: Normal Security Compliance Specialist Required: No Beliefs That Will Affect Care: None marital status: Current Living Situation: Spouse Current Living Situation Comment: Lives with and dog current occupational status: employed 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 Other Information That Helps Us Care for You: No Feels Safe at Home: Yes Safety Concerns: Feels Safe At This Time Childhood Exposure to Second-Hand Smoke: Yes Diet: regular Diet Comment: "tries to feed me right, but sometimes it doesn't always happen" caffeine: Yes during the past year weight has: remained stable Physical Activity Frequency: Does not Exercise Seatbelt Use: never Do you think of yourself as: straight/heterosexual Assistive Devices: Hospital Bed and Walker Review of Systems Review of Systems: see HPI Physical Exam Physical Exam: The patient is awake, alert and oriented 3, well developed and well nourished, normocephalic and atraumatic, in no acute distress. Non-toxic appearing. HEENT- EOMI, mucous membranes dry. Hearing grossly intact. Heart-normal S1 and S2. No murmurs, rubs or gallops. Lungs-clear bilaterally, no respiratory distress, no accessory muscle use. Abdomen-normal bowel sounds and soft. No ascites noted. Tender to right upper, right lower, and epigastric region. Positive for CVA tenderness on right side. Extremities- no clubbing, cyanosis, or edema. Surgical shoe to left foot, left foot without any toes. Rheumatologic-normal range of motion. Psychiatric-normal affect. Results & Data Results & Data Vital Signs (Past 12 Hours) Vital Signs Temp Pulse Pulse Resp BP BP Pulse Ox 07/07/24 12:44 107 H 07/07/24 11:49 105 H 16 93 07/07/24 11:49 105 H 16 165/102 H 93 07/07/24 11:22 36.9 C 120 H 20 161/103 H 96 O2 Del Method 07/07/24 12:44 07/07/24 11:49 Room Air 07/07/24 11:49 Room Air 07/07/24 11:22 Room Air ECG Additional Comments: ordered Code Status & VTE Plan Code Status Full code VTE Prophylaxis Plan VTE Prophylaxis will be ordered: Yes Supervising Physician Co-Signing Physician Notes Patient was seen and examined independently I discussed the case with Sera FREGOSO I reviewed pertinent past medical social family history and also the plan of care and agree with the plan of care. Patient with abdominal pain right sided in nature. Has a history of pancreatitis that does have mild pancreatic inflammation seen on CT scan as well as a mildly elevated lipase however his pain is most relegated to the right side right CVA and he does have a normal urinalysis which could be possibly that the patient has a urinary infection. His previous issues regarding diabetic foot infection have resolved his amputated left foot looks to be with good healing Concerning on CT scan was a pericardial effusion worsened from previous. He has elevated sed rate please fax chronic elevation of his sed rate due to his peripheral artery disease and diabetic foot infections. Subsequently [place] admit the patient for pancreatitis pericardial fusion and ruling out urinary tract infection. His physical exam shows him have no reproducible chest pain he has no pericardial rub he is no changes on EKG of pericarditis his abdominal pain is really at the right lower quadrant radiating around to his right CVA angle area This point in time for the pancreatitis he will be with a limited diet and pain and nausea control #Possible pericardial effusion patient will have an echocardiogram and blood cultures are ordered #Possible UTI or pyelonephritis patient's urine is cultured he is placed on amoxicillin p.o. until we get further culture results Any exceptions will be noted below PG Care Time/CCT Total # of Minutes Spent Total Time Spent with Patient: Total time spent is greater than 50% in coordination of care (as documented) at patient's floor/unit and/or counseling patient: Coding Level of Care Code 00216 INT INP/OBS CARE MIN Diagnoses Pancreatitis K85.90 Acute pancreatitis complication: unspecified Chronicity: acute Pancreatitis type: unspecified pancreatitis type Pericardial effusion I31.39 UTI (urinary tract infection) N39.0 CKD stage 3 due to type 2 diabetes mellitus E11.22; N18.30 (1) Pancreatitis Acute pancreatitis complication: unspecified Chronicity: acute Pancreatitis type: unspecified pancreatitis type Qualified Code(s): K85.90 - Acute pancreatitis without necrosis or infection, unspecified
[2024-07-07] MEDS: ACETAMINOPHEN 1,000 MG/100 ML VIAL IV STA (15:00)
[2024-07-07] MEDS: AMOXICILLIN 875 MG TAB PO SCH (15:02)
[2024-07-07 15:28] LABS: Troponin I High Sensitivity 13.3 pg/ml (0-20)
[2024-07-07] MEDS ORDERED: NALOXONE HCL 0.4 MG/1 ML VIAL/CARP IV PRN (15:59)
[2024-07-07] MEDS ORDERED: GLUCAGON FOR INJ 1 MG VIAL SQ PRN (15:59)
[2024-07-07] MEDS ORDERED: CARBOHYDRATES FOR HYPOGLYCEMIA PO PRN (15:59)
[2024-07-07] MEDS ORDERED: GLUCOSE 10 TAB/TUBE PO PRN (15:59)
[2024-07-07] MEDS ORDERED: GLUCOSE 40% GEL 15 GM TUBE PO PRN (15:59)
[2024-07-07] MEDS ORDERED: DEXTROSE 50% 50 ML SYRINGE IV PRN (15:59)
[2024-07-07] MEDS: LACTATED RINGER'S 1,000 ML IV SCH (16:01)
--- NOTE | 2024-07-07 16:13 | XCELERA ---
[id number]
[2024-07-07] MEDS ORDERED: Nursing to Pharmacy Communication SCH (17:45)
[2024-07-07] MEDS: INSULIN ASPART PER UNIT CHARGE SC SCH (18:01)
[2024-07-07] MEDS: MoRPHine SULFATE 2 MG/ML CARP IV PRN (18:04)
[2024-07-07] MEDS: DULoxetine HCL 20 MG CAP PO SCH (20:52)
[2024-07-07] MEDS: HEPARIN SOD 5,000 UNIT/0.5 ML VIAL SQ SCH (20:52)
[2024-07-07] MEDS: ATORVASTATIN 10 MG TAB PO SCH (20:52)
[2024-07-07] MEDS: MELATONIN 3 MG TAB PO PRN (20:58)
[2024-07-07] MEDS: MoRPHine SULFATE 4 MG/ML 1 ML CARP\\VIAL IV PRN (20:59)
[2024-07-07] MEDS: ACETAMINOPHEN 1,000 MG/100 ML VIAL IV SCH (22:43)
[2024-07-08] MEDS: ONDANSETRON INJ 2 MG/ML 2 ML VIAL IV PRN (02:28)
[2024-07-08 08:04] LABS: Basophils # (auto) 0.04 K/uL (0.00-0.20); Basophils % (auto) 0.5 %; Eosinophils # (auto) 0.21 K/uL (0.00-0.50); Eosinophils % (auto) 2.9 %; Hematocrit (blood only) 31.8 % (42.0-52.0); Hemoglobin 9.9 g/dl (14.0-18.0); Immature Granulocytes # (auto) 0.07 K/uL (0.01-0.20); Lymphocytes # (auto) 1.18 K/uL (1.20-3.40); Lymphocytes % (auto) 16.1 %; Mean Corpuscular Hemoglobin 25.8 pg (25.0-34.0); Mean Corpuscular Hgb Conc 31.1 g/dL (32.0-36.0); Mean Platelet Volume 8.3 fL (9.4-12.4); Monocytes # (auto) 0.87 K/uL (0.11-0.59); Monocytes % (auto) 11.9 %; Neutrophils # (auto) 4.97 K/uL (1.40-6.50); Neutrophils % (auto) 67.6 %; Platelet Count 221 K/uL (130-400); RDW Coefficient of Variation 15.9 % (11.5-14.5); RDW Standard Deviation 48.5 fL (36.4-46.3); Red Blood Count 3.83 M/uL (4.70-6.10); White Blood Count 7.34 K/ul (4.8-10.8)
[2024-07-08 08:20] LABS: BUN Creatinine Ratio 16.1 (10-20); Calcium 8.8 mg/dl (8.6-10.3); Creatinine Clr Calc Pharmacy 47.4 ml/min; Magnesium 1.8 mg/dl (1.7-2.4); Potassium 4.4 mmol/L (3.5-5.1)
[2024-07-08] MEDS: LANTUS PER UNIT CHARGE SQ SCH (09:12)
[2024-07-08] MEDS: ASPIRIN 81 MG ECTAB PO SCH (09:12)
[2024-07-08] MEDS: METOPROLOL SUCC 25MG EXT REL TAB PO SCH (09:13)
--- NOTE | 2024-07-08 09:44 | Electrocardiogram Report ---
Test Reason : Blood Pressure : */* mmHG Vent. Rate : 95 BPM Atrial Rate : 250 BPM P-R Int : * ms QRS Dur : 82 ms QT Int : 338 ms P-R-T Axes : 115 -22 -34 degrees QTcB Int : 424 ms Atrial flutter with variable A-V block Abnormal ECG When compared with ECG of 18-Jun-2024 13:38, Atrial flutter has replaced Atrial fibrillation ST no longer elevated in Inferior leads ST no longer elevated in Lateral leads Confirmed by Clrake Morgan ([id number]) on 07/08/2024 9:43:45 AM Referred By: REFERRED SELF Confirmed By: Clarke Morgan
--- NOTE | 2024-07-08 12:23 | Ultrasound Report ---
RENAL ULTRASOUND HISTORY: R cva tenderness COMPARISON: 11/26/2022 FINDINGS: No significant interval changes have occurred. Right kidney: Long axis measurement is 10.2 cm. There is no hydronephrosis or focal right renal lesio n detected. There is no perinephric fluid. There is no cortical edema. Left kidney: Long axis measurement is 11.2 cm. There is no focal lesion detected. There is no hydrone phrosis identified. The urinary bladder is incompletely distended. There are no focal lesions detected. Bilateral uretera l jets are reported by the technologist but not recorded. IMPRESSION: No acute findings identified. ACT 112: Negative or not required by law. Electronically signed by: Lazara Quitnero M.D. 07/08/2024 12:21 PM
--- NOTE | 2024-07-08 13:42 | Hospitalist Progress Note ---
Date of Service July 08, 2024 Assessment & Plan (1) Pancreatitis: (2) Pericardial effusion: (3) UTI (urinary tract infection): (4) CKD stage 3 due to type 2 diabetes mellitus: Plan Patient is a 68-year-old male with past medical history of cardiac arrest (approximately 3 years ago), CAD, GERD, hypertension, PAD, HLD, and diabetes. Patient has had numerous readmissions this year, had a long hospitalization in March for a right ankle fracture dislocation and left foot osteomyelitis. He was recently admitted from 06/18 to 06/21 for chest pain and syncopal episode In which his workup was essentially negative,. Echocardiogram did not feel pericardial effusion was significant however he does have a set rate of 118. Blood cultures were obtained and are preliminarily negative treated symptomatically for pancreatitis at this time, with right CVA angle tenderness and abnormal urinalysis consider UTI cannot explain extremely high and ESR of 118 #Pancreatitis clinically not fitting the picture on clear liquid diet with pain control Zofran, IV Tylenol prn, morphine 2-4mg prn for breakthrough pain Hold Lasix 20 Mg daily to avoid dehydration #Pericardial effusion echocardiogram does not show signs of worsening pericardial effusion or pericarditis despite with CT scan was read as None of any pleuritic chest pain or pericardial rub. ESR is significantly elevated however with his renal disease and vascular disease multiple other causes could be had with this Echocardiogram 07/07/2024 normal EF normal wall motion no significant valvular disease no significant pericardial effusion - of note patient's baseline sed rate appears to be around 80 blood cultures ordered negative to date #UTI Contaminant versus UTI although with CVA tenderness will cover with ABX amoxicillin 500 twice daily Urine cultures are negative to date . renal ultrasound did not show any abnormalities of renal anatomy, and although blood and urine renal functions improved with hydration to go against this being a nephritis #T2DM hold Salud, metformin, Oleksandrunarnulfo Question of pancreatitis is associate with Mounharitharo on glargine 10 units every morning - reduced to 5U every morning with clear liquid diet Loose SSI goal 110-180, CF 25, defer carb ratio Expect need to tighten insulin control as diet progresses Chronic stable diagnoses: CKD - trace protein in UA, renal function improved from baseline, promote oral hydration history of right ankle fracture s/p ORIF 03/23, patient still with ambulatory dysfunction History of cardiac arrest - s/p cardiac cath 11/05/2021, severe mid LAD disease HLD continue atorvastatin and BB ASA GERD continue famotidine VTE ppx: heparin 5000u q12h Admission and Anticipated Discharge Date Admission Date: July 07, 2024 Subjective Patient continues to not feel well. He has right flank pain which is hide a proportion of exam. Evaluation for renal disease is not well supported. There is no external signs of rash at this time although shingles does come to mind. His left foot is reevaluated once again without evidence of concern for infections this is an area of concern given his markedly elevated ESR. Physical Exam Physical Exam: Patient says he does not feel much better still has right abdominal and flank pain overall feels weak and tired mild nausea Exam of his skin does not show any rashes consistent with shingles the CVA on the right is table tender sludge as well as his right lower quadrant Exam is regular lungs are clear. His left foot is with all toes amputated without evidence of erythema warmth or drainage Results & Data Results & Data Vital Signs (Past 12 Hours) Vital Signs Temp Pulse Pulse Resp BP BP Pulse Ox 07/08/24 08:41 97 H 07/08/24 08:17 07/08/24 07:38 97.5 F L 100 H 18 105/63 94 07/08/24 03:27 97.3 F L 89 20 116/74 93 O2 Del Method 07/08/24 08:41 07/08/24 08:17 Room Air 07/08/24 07:38 Room Air 07/08/24 03:27 Room Air Laboratory Results Reviewed CBC reviewed chemistry reviewed renal ultrasound PG Care Time/CCT Total # of Minutes Spent Total Time Spent with Patient: Total time spent is greater than 50% in coordination of care (as documented) at patient's floor/unit and/or counseling patient: Coding Level of Care Code 28805 SUB INP/OBS CARE 3/50MIN Diagnoses Pancreatitis K85.90 Acute pancreatitis complication: unspecified Chronicity: acute Pancreatitis type: unspecified pancreatitis type Pericardial effusion I31.39 UTI (urinary tract infection) N39.0 CKD stage 3 due to type 2 diabetes mellitus E11.22; N18.30 (1) Pancreatitis Acute pancreatitis complication: unspecified Chronicity: acute Pancreatitis type: unspecified pancreatitis type Qualified Code(s): K85.90 - Acute pancreatitis without necrosis or infection, unspecified
--- NOTE | 2024-07-08 16:12 | Hospitalist Progress Note ---
Date of Service July 08, 2024 Assessment & Plan (1) Pancreatitis: (2) Pericardial effusion: (3) UTI (urinary tract infection): (4) CKD stage 3 due to type 2 diabetes mellitus: Plan Patient is a 68-year-old male with past medical history of cardiac arrest (approximately 3 years ago), CAD, GERD, hypertension, PAD, HLD, and diabetes. Patient has had numerous readmissions this year, had a long hospitalization in March for a right ankle fracture dislocation and left foot osteomyelitis. He was recently admitted from 06/18 to 06/21 for chest pain and syncopal episode In which his workup was essentially negative,. Echocardiogram did not feel pericardial effusion was significant however he does have a set rate of 118. Blood cultures were obtained and are preliminarily negative treated symptomatically for pancreatitis at this time, with right CVA angle tenderness and abnormal urinalysis consider UTI cannot explain extremely high and ESR of 118 #Pancreatitis clinically not fitting the picture on clear liquid diet with pain control Zofran, IV Tylenol prn, morphine 2-4mg prn for breakthrough pain Hold Lasix 20 Mg daily to avoid dehydration #Pericardial effusion echocardiogram does not show signs of worsening pericardial effusion or pericarditis despite with CT scan was read as None of any pleuritic chest pain or pericardial rub. ESR is significantly elevated however with his renal disease and vascular disease multiple other causes could be had with this Echocardiogram 07/07/2024 normal EF normal wall motion no significant valvular disease no significant pericardial effusion - of note patient's baseline sed rate appears to be around 80 blood cultures ordered negative to date #Atrial flutter with controlled ventricular rate, will consider restart of anticoagulation, did have afib on last admission and a history of flutter had been on eliquis in the past last noted on discharge from center care 05/19/24, renal dose adjusted, will restart #UTI Contaminant versus UTI although with CVA tenderness will cover with ABX amoxicillin 500 twice daily Urine cultures are negative to date . renal ultrasound did not show any abnormalities of renal anatomy, and although blood and urine renal functions improved with hydration to go against this being a nephritis #T2DM hold Jardiance, metformin, Mounjaro Question of pancreatitis is associate with Mounjaro on glargine 10 units every morning - reduced to 5U every morning with clear liquid diet Loose SSI goal 110-180, CF 25, defer carb ratio Expect need to tighten insulin control as diet progresses Chronic stable diagnoses: CKD - trace protein in UA, renal function improved from baseline, promote oral hydration history of right ankle fracture s/p ORIF 03/23, patient still with ambulatory dysfunction History of cardiac arrest - s/p cardiac cath 11/05/2021, severe mid LAD disease HLD continue atorvastatin and BB ASA GERD continue famotidine VTE ppx: heparin 5000u q12h Admission and Anticipated Discharge Date Admission Date: July 07, 2024 Subjective Patient continues to not feel well. He has right flank pain which is hide a proportion of exam. Evaluation for renal disease is not well supported. There is no external signs of rash at this time although shingles does come to mind. His left foot is reevaluated once again without evidence of concern for infections this is an area of concern given his markedly elevated ESR. Physical Exam Physical Exam: Patient says he does not feel much better still has right abdominal and flank pain overall feels weak and tired mild nausea Exam of his skin does not show any rashes consistent with shingles the CVA on the right is raw stock drier tender as well as his right lower quadrant Exam is regular lungs are clear. His left foot is with all toes amputated without evidence of erythema warmth or drainage Results & Data Results & Data Vital Signs (Past 12 Hours) Vital Signs Temp Pulse Pulse Resp BP Pulse Ox O2 Del Method 07/08/24 14:55 87 07/08/24 08:41 97 H 07/08/24 08:17 Room Air 07/08/24 07:38 97.5 F L 100 H 18 105/63 94 Room Air PG Care Time/CCT Total # of Minutes Spent Total Time Spent with Patient: Total time spent is greater than 50% in coordination of care (as documented) at patient's floor/unit and/or counseling patient: Coding Level of Care Code None Diagnoses Pancreatitis K85.90 Acute pancreatitis complication: unspecified Chronicity: acute Pancreatitis type: unspecified pancreatitis type Pericardial effusion I31.39 UTI (urinary tract infection) N39.0 CKD stage 3 due to type 2 diabetes mellitus E11.22; N18.30 (1) Pancreatitis Acute pancreatitis complication: unspecified Chronicity: acute Pancreatitis type: unspecified pancreatitis type Qualified Code(s): K85.90 - Acute pancreatitis without necrosis or infection, unspecified
[2024-07-08] MEDS: APIXABAN 5 MG TABLET PO SCH (22:00)
[2024-07-09 10:22] LABS: Basophils # (auto) 0.04 K/uL (0.00-0.20); Basophils % (auto) 0.6 %; Eosinophils # (auto) 0.22 K/uL (0.00-0.50); Eosinophils % (auto) 3.2 %; Hematocrit (blood only) 31.2 % (42.0-52.0); Hemoglobin 9.8 g/dl (14.0-18.0); Immature Granulocytes # (auto) 0.04 K/uL (0.01-0.20); Immature Granulocytes % (auto) 0.6 %; Lymphocytes # (auto) 1.08 K/uL (1.20-3.40); Lymphocytes % (auto) 15.7 %; Mean Corpuscular Hemoglobin 25.9 pg (25.0-34.0); Mean Corpuscular Hgb Conc 31.4 g/dL (32.0-36.0); Mean Corpuscular Volume 82.5 fL (80.0-100.0); Mean Platelet Volume 8.2 fL (9.4-12.4); Monocytes # (auto) 0.43 K/uL (0.11-0.59); Monocytes % (auto) 6.3 %; Neutrophils # (auto) 5.07 K/uL (1.40-6.50); Neutrophils % (auto) 73.6 %; Platelet Count 228 K/uL (130-400); RDW Coefficient of Variation 15.9 % (11.5-14.5); RDW Standard Deviation 47.4 fL (36.4-46.3); Red Blood Count 3.78 M/uL (4.70-6.10); White Blood Count 6.88 K/ul (4.8-10.8)
[2024-07-09 10:39] LABS: Albumin Globulin Ratio 0.7 (0.9-2); BUN Creatinine Ratio 13.9 (10-20); Bilirubin,Total 0.3 mg/dl (0.2-1.0); C Reactive Protein 5.91 mg/dl (0-0.5); Calcium 8.8 mg/dl (8.6-10.3); Creatinine Clr Calc Pharmacy 54.7 ml/min; Globulin 4.1 gm/dl (2.5-4.0); Potassium 4.4 mmol/L (3.5-5.1); Total Protein 7.1 gm/dl (6.0-8.3)
--- NOTE | 2024-07-09 11:08 | Ultrasound Report ---
US duplex mesenteric HISTORY: 68 years-old Male ruq abd pain acute right upper quadrant abdominal pain COMPARISON: CT abdomen and pelvis July 07, 2024 TECHNIQUE: Multiple real-time sonographic images of the abdominal vascular structures were obtained a ssessing grayscale appearance and color flow FINDINGS: Nondiagnostic exam secondary to patient body habitus and obscuring bowel gas. The aorta and mesenteri c vessels are not well visualized. IMPRESSION: Nondiagnostic exam. ACT 112: Negative or not required by law. The above report was generated using voice recognition software. It may contain grammatical, syntax o r spelling errors. Electronically signed by: Giovanni Moreno M.D. 07/09/2024 11:06 AM
[2024-07-09] MEDS: FAMOTIDINE 20 MG TAB PO PRN (20:43)
--- NOTE | 2024-07-09 22:38 | Hospitalist Progress Note ---
Date of Service July 09, 2024 Assessment & Plan (1) Pancreatitis: (2) Pericardial effusion: (3) UTI (urinary tract infection): (4) CKD stage 3 due to type 2 diabetes mellitus: Plan Patient is a 68-year-old male with past medical history of cardiac arrest (approximately 3 years ago), CAD, GERD, hypertension, PAD, HLD, and diabetes. Patient has had numerous readmissions this year, had a long hospitalization in March for a right ankle fracture dislocation and left foot osteomyelitis. He was recently admitted from 06/18 to 06/21 for chest pain and syncopal episode In which his workup was essentially negative,. Echocardiogram did not feel pericardial effusion was significant however he does have a set rate of 118. Blood cultures were obtained and are preliminarily negative treated symptomatically for pancreatitis at this time, with right CVA angle tenderness and abnormal urinalysis consider UTI cannot explain extremely high and ESR of 118 #Pancreatitis clinically not fitting the picture on clear liquid diet with pain control Zofran, IV Tylenol prn, morphine 2-4mg prn for breakthrough pain Hold Lasix 20 Mg daily to avoid dehydration Given LEONARDO hold CTA of abd/pelvis to assess for ischemia. Giving timing of pain and relationship with food, may benefit from having a GI scope #Pericardial effusion echocardiogram does not show signs of worsening pericardial effusion or pericarditis despite with CT scan was read as None of any pleuritic chest pain or pericardial rub. ESR is significantly elevated however with his renal disease and vascular disease multiple other causes could be had with this Echocardiogram 07/07/2024 normal EF normal wall motion no significant valvular disease no significant pericardial effusion - of note patient's baseline sed rate appears to be around 80 blood cultures ordered negative to date #Atrial flutter with controlled ventricular rate, will consider restart of anticoagulation, did have afib on last admission and a history of flutter had been on eliquis in the past last noted on discharge from center care 05/19/24, renal dose adjusted, will restart #UTI Contaminant versus UTI although with CVA tenderness will cover with ABX amoxicillin 500 twice daily Urine cultures are negative to date . renal ultrasound did not show any abnormalities of renal anatomy, and although blood and urine renal functions improved with hydration to go against this being a nephritis #T2DM hold Salud, metforminRachel Question of pancreatitis is associate with Rachel on glargine 10 units every morning - reduced to 5U every morning with clear liquid diet Loose SSI goal 110-180, CF 25, defer carb ratio Expect need to tighten insulin control as diet progresses Chronic stable diagnoses: CKD - trace protein in UA, renal function improved from baseline, promote oral hydration history of right ankle fracture s/p ORIF 03/23, patient still with ambulatory dysfunction History of cardiac arrest - s/p cardiac cath 11/05/2021, severe mid LAD disease HLD continue atorvastatin and BB ASA GERD continue famotidine VTE ppx: heparin 5000u q12h chart review Admission and Anticipated Discharge Date Admission Date: July 07, 2024 Subjective 68 yo male reports having right upper quadrant abdominal pain while he eats. He states pain is within 5-10 minutes. Physical Exam Physical Exam: Abdo: soft, ND. Exam of his skin does not show any rashes consistent with shingles the CVA on the right is enrober tender as well as his right lower quadrant Exam is regular lungs are clear. His left foot is with all toes amputated without evidence of erythema warmth or drainage Results & Data Results & Data Vital Signs (Past 12 Hours) Vital Signs Temp Pulse Pulse Pulse Resp BP BP 07/09/24 19:44 36.8 C 87 17 110/66 07/09/24 15:08 36.4 C L 63 18 96/60 L 07/09/24 14:07 68 07/09/24 12:18 36.4 C L 70 18 120/72 Pulse Ox O2 Del Method 07/09/24 19:44 93 Room Air 07/09/24 15:08 93 Room Air 07/09/24 14:07 07/09/24 12:18 95 Room Air PG Care Time/CCT Total # of Minutes Spent Total Time Spent with Patient: Total time spent is greater than 50% in coordination of care (as documented) at patient's floor/unit and/or counseling patient: Coding Level of Care Code 17321 SUB INP/OBS CARE 350MIN Diagnoses Pancreatitis K85.90 Acute pancreatitis complication: unspecified Chronicity: acute Pancreatitis type: unspecified pancreatitis type Pericardial effusion I31.39 UTI (urinary tract infection) N39.0 CKD stage 3 due to type 2 diabetes mellitus E11.22; N18.30 (1) Pancreatitis Acute pancreatitis complication: unspecified Chronicity: acute Pancreatitis type: unspecified pancreatitis type Qualified Code(s): K85.90 - Acute pancreatitis without necrosis or infection, unspecified
[2024-07-10 07:40] LABS: Hematocrit (blood only) 34.1 % (42.0-52.0); Hemoglobin 10.7 g/dl (14.0-18.0); Mean Corpuscular Hemoglobin 25.8 pg (25.0-34.0); Mean Corpuscular Hgb Conc 31.4 g/dL (32.0-36.0); Mean Corpuscular Volume 82.4 fL (80.0-100.0); Mean Platelet Volume 8.4 fL (9.4-12.4); Platelet Count 264 K/uL (130-400); RDW Coefficient of Variation 15.9 % (11.5-14.5); RDW Standard Deviation 47.7 fL (36.4-46.3); Red Blood Count 4.14 M/uL (4.70-6.10); White Blood Count 8.73 K/ul (4.8-10.8)
[2024-07-10 07:44] LABS: Calcium 8.8 mg/dl (8.6-10.3); Creatinine Clr Calc Pharmacy 55.2 ml/min; Potassium 4.1 mmol/L (3.5-5.1)
[2024-07-10] MEDS: SUCRALFATE 1 GM/10 ML UDC PO SCH (17:07)
--- NOTE | 2024-07-10 18:06 | Gastrointestinal Consultation ---
Date of Consultation July 10, 2024 Assessment & Plan (1) Abdominal pain: Symptoms, imaging and lab work are consistent with mild pancreatitis. Etiology is unclear. Denies any significant alcohol abuse. In light of the elevated sed rate and C-reactive protein could consider autoimmune pancreatitis, or viral etiology. Clinically he is improving over the last 24 hours. Agree with considering mesenteric ischemia however Doppler studies were inadequate. If symptoms persist and do not improve would pursue ruling out autoimmune pancreatitis as well as mesenteric vascular disease with possibly an MRI if tolerable. Can advance diet to low fat soft as tolerated. History of Present Illness Reason for Consultation: Abdominal pain abnormal CT scan Attending Physician: Tacho Berman History of Present Illness Patient presents with a 1 week history of mid abdominal pain worse with eating. Pain persisted and intensified and was admitted to the hospital 3 days ago for further evaluation. On admission CT scan was consistent with some mild pancreatitis and his lipase was slightly elevated at 100. He has a past history of suspected gallstone pancreatitis approximately 9 years ago status postcholecystectomy. He has been well GI beth ever since. Over the last week he has also noted some loose bowel movements approximately 3 daily which is unusual for him. During his hospitalizations he has had some retching and some nausea as well. No significant weight loss has been noted. He has a longstanding history of coronary artery disease and peripheral vascular disease. Imaging also demonstrates a possible pericarditis and pericardial wall thickening. His sed rate has been elevated as well. Denies any recent sick contacts. Allergies Allergy/AdvReac Type Severity Reaction Status Date / Time No Known Allergies Allergy Verified 07/07/24 13:07 Home Medications Medication Instructions Recorded Confirmed Type lancets (Accu-Chek Fastclix Lancet 08/23/20 07/07/24 History Drum) FreeStyle Remigio 2 [place] (flash #1 ea 01/24/21 07/07/24 Rx glucose scanning reader) FreeStyle Remigio 2 Sensor (flash #7 ea 01/24/21 07/07/24 Rx glucose sensor) metformin 500 mg tablet 500 mg PO BID 90 days #180 tabs 06/24/23 07/07/24 Rx cyanocobalamin (vitamin B-12) 1,000 mcg PO DAILY 12/26/23 07/07/24 History 1,000 mcg capsule atorvastatin 10 mg tablet (Lipitor) 10 mg PO HS #90 tabs 02/24/24 07/07/24 Rx duloxetine 20 mg capsule,delayed 20 mg PO BID #180 caps 02/24/24 07/07/24 Rx release (Cymbalta) empagliflozin 25 mg tablet 25 mg PO QAM #90 tabs 02/24/24 07/07/24 Rx (Jardiance) pen needle, diabetic 31 gauge x #400 ea 02/24/24 07/07/24 Rx 3/16" (BD Ultra-Fine Mini Pen Needle) cholecalciferol (vitamin D3) 25 25 mcg PO DAILY 03/01/24 07/07/24 History mcg (1,000 unit) tablet (Vitamin D3) melatonin 10 mg capsule 10 mg PO HS PRN Sleep 05/14/24 07/07/24 History acetaminophen 650 mg 650 mg PO Q6H PRN Pain 05/20/24 07/07/24 History tablet,extended release (Tylenol 8 Hour) albuterol sulfate 90 mcg/actuation 2 puff inhalation Q6H PRN 05/20/24 07/07/24 Rx aerosol inhaler shortness of breath or wheezing #6.7 grams furosemide 20 mg tablet (Lasix) 20 mg PO DAILY #90 tabs 05/20/24 07/07/24 Rx insulin lispro 100 unit/mL 10 unit subcut BID 05/20/24 07/07/24 History subcutaneous pen metoprolol succinate 25 mg 25 mg PO DAILY #90 tabs 05/20/24 07/07/24 Rx tablet,extended release 24 hr Saccharomyces boulardii 250 mg 250 mg PO BID #60 caps 05/25/24 07/07/24 Rx capsule (Florastor) blood sugar diagnostic (OneTouch #100 ea 05/25/24 07/07/24 Rx Verio test strips) blood-glucose meter (OneTouch #1 ea 05/25/24 07/07/24 Rx Verio Flex Meter) insulin glargine 100 unit/mL (3 10 unit (0.1 mL) subcut QAM #15 mL 05/25/24 07/07/24 Rx mL) subcutaneous pen (Basaglar KwikPen U-100 Insulin) aspirin 81 mg tablet,delayed 81 mg PO DAILY #30 tabs 06/24/24 07/07/24 Rx release famotidine 20 mg tablet 20 mg PO BID PRN heartburn #60 tabs 06/28/24 07/07/24 Rx ondansetron HCl 4 mg tablet 4 mg PO Q8H PRN nausea and 06/28/24 07/07/24 Rx vomiting #30 tabs tirzepatide 5 mg/0.5 mL 5 mg subcut WK 07/07/24 07/07/24 History subcutaneous pen injector (Rachel) Patient History Medical History (Updated 07/10/24 @ 18:03 by Liang Gutierrez MD) Hx MRSA infection History of colon polyps Surgical History (Updated 06/25/24 @ 00:06 by Richie Gauthier) H/O kyphoplasty (2022) following L1 burst fracture Status post amputation of toe of left foot History of cardiac cath following an unexplained cardiac arrest>per medical record>11/05/21, [facility] [place], no stents Status post amputation of left great toe History of incision and drainage Hx of I&D of mendel-rectal abscess History of cataract surgery bilt History of cholecystectomy History of tooth extraction History of colonoscopy Colonoscopy 01/21/[address] Garg. History of adenoidectomy History of tonsillectomy Status post uvulopalatopharyngoplasty S/P foot surgery, left Family History Mother Family history of diabetes mellitus Father History of alcoholism History of liver cancer Sister Cancer Denies family history of Ovarian cancer Prostate cancer Crohn's disease Breast cancer Colorectal cancer Social History Smoking Status: Never smoker Tobacco Type: Declines Age Started Using Tobacco: 18; Age Quit Using Tobacco: 48; packs per day: 1.5; Second Hand Exposure: No; Do You Dip or Chew Tobacco: No; Hx Alcohol Use: No Hx Substance Use: No Preferred Language: Lao Communication Ability: Effective Visual Impairment: No Limitations Hearing Ability: Normal [employer] Required: No Beliefs That Will Affect Care: None marital status: Current Living Situation: Spouse Current Living Situation Comment: Lives with and dog current occupational status: employed 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 Other Information That Helps Us Care for You: No Feels Safe at Home: Yes Safety Concerns: Feels Safe At This Time Childhood Exposure to Second-Hand Smoke: Yes Diet: regular Diet Comment: "tries to feed me right, but sometimes it doesn't always happen" caffeine: Yes during the past year weight has: remained stable Physical Activity Frequency: Does not Exercise Seatbelt Use: never Do you think of yourself as: straight/heterosexual Assistive Devices: Walker Review of Systems Review of Systems: No fever No chills No SOB No CP Abdominal pain nausea vomiting and diarrhea Physical Exam Physical Exam: Eyes; anicteric HENT No masses Chest clear to A Cor S1, S2 physiologic Abd: mild mid tenderness no rebound no guarding no masses Ext no edema Results & Data Vital Signs (Past 12 Hours) Vital Signs Temp Pulse Pulse Resp BP BP Pulse Ox 07/10/24 15:35 67 07/10/24 15:22 36.3 C L 85 19 117/63 95 07/10/24 10:56 36.5 C 99 H 20 104/66 97 07/10/24 09:33 07/10/24 07:19 36.7 C 96 H 20 98/61 L 91 07/10/24 06:51 88 O2 Del Method 07/10/24 15:35 07/10/24 15:22 Room Air 07/10/24 10:56 Room Air 07/10/24 09:33 Room Air 07/10/24 07:19 Room Air 07/10/24 06:51 Laboratory Results Laboratory Results - last 48 hr 07/09/24 07/09/24 07/09/24 08:26 09:48 11:27 WBC 6.88 RBC 3.78 L Hgb 9.8 L Hct 31.2 L MCV 82.5 MCH 25.9 MCHC 31.4 L RDW Std Deviation 47.4 H RDW Coeff of Mejia 15.9 H Plt Count 228 MPV 8.2 L Immature Gran % (Auto) 0.6 Neut % (Auto) 73.6 Lymph % (Auto) 15.7 [place] % (Auto) 6.3 Eos % (Auto) 3.2 Baso % (Auto) 0.6 Neut # (Auto) 5.07 Lymph # (Auto) 1.08 L [place] # (Auto) 0.43 Eos # (Auto) 0.22 Baso # (Auto) 0.04 Immature Gran # (Auto) 0.04 ESR 84 H Sodium 138 Potassium 4.4 Chloride 106 Carbon Dioxide 27 Anion Gap 5 BUN 25 H Creatinine 1.80 H D Est Cr Clr Drug Dosing 54.7 eGFR 40.49 BUN/Creatinine Ratio 13.9 Glucose 212 H POC Glucose 151 H 153 H Lactate 1.0 Calcium 8.8 Total Bilirubin 0.3 AST 8 L ALT 5 L Alkaline Phosphatase 141 H C-Reactive Protein 5.91 H Total Protein 7.1 Albumin 3.0 L Globulin 4.1 H Albumin/Globulin Ratio 0.7 L Procalcitonin 0.09 07/09/24 07/09/24 07/10/24 17:15 20:08 07:07 WBC 8.73 RBC 4.14 L Hgb 10.7 L Hct 34.1 L MCV 82.4 MCH 25.8 MCHC 31.4 L RDW Std Deviation 47.7 H RDW Coeff of Mejia 15.9 H Plt Count 264 MPV 8.4 L Immature Gran % (Auto) Neut % (Auto) Lymph % (Auto) [place] % (Auto) Eos % (Auto) Baso % (Auto) Neut # (Auto) Lymph # (Auto) [place] # (Auto) Eos # (Auto) Baso # (Auto) Immature Gran # (Auto) ESR Sodium 138 Potassium 4.1 Chloride 105 Carbon Dioxide 27 Anion Gap 6 BUN 27 H Creatinine 1.80 H Est Cr Clr Drug Dosing 55.2 eGFR 40.49 BUN/Creatinine Ratio 15.0 Glucose 140 H POC Glucose 146 H 187 H Lactate Calcium 8.8 Total Bilirubin AST ALT Alkaline Phosphatase C-Reactive Protein Total Protein Albumin Globulin Albumin/Globulin Ratio Procalcitonin 07/10/24 07/10/24 07/10/24 07:59 11:51 16:53 WBC RBC Hgb Hct MCV MCH MCHC RDW Std Deviation RDW Coeff of Mejia Plt Count MPV Immature Gran % (Auto) Neut % (Auto) Lymph % (Auto) [place] % (Auto) Eos % (Auto) Baso % (Auto) Neut # (Auto) Lymph # (Auto) [place] # (Auto) Eos # (Auto) Baso # (Auto) Immature Gran # (Auto) ESR Sodium Potassium Chloride Carbon Dioxide Anion Gap BUN Creatinine Est Cr Clr Drug Dosing eGFR BUN/Creatinine Ratio Glucose POC Glucose 129 H 121 H 169 H Lactate Calcium Total Bilirubin AST ALT Alkaline Phosphatase C-Reactive Protein Total Protein Albumin Globulin Albumin/Globulin Ratio Procalcitonin PG Care Time/CCT Total # of Minutes Spent Total Time Spent with Patient: Total time spent is greater than 50% in coordination of care (as documented) at patient's floor/unit and/or counseling patient: Coding Level of Care Code 35322 INT INP/OBS CARE 3/75MIN Diagnoses Abdominal pain R10.9
--- NOTE | 2024-07-10 23:04 | Hospitalist Progress Note ---
Date of Service July 10, 2024 Assessment & Plan (1) Pancreatitis: (2) Pericardial effusion: (3) UTI (urinary tract infection): (4) CKD stage 3 due to type 2 diabetes mellitus: Plan Patient is a 68-year-old male with past medical history of cardiac arrest (approximately 3 years ago), CAD, GERD, hypertension, PAD, HLD, and diabetes. Patient has had numerous readmissions this year, had a long hospitalization in March for a right ankle fracture dislocation and left foot osteomyelitis. He was recently admitted from 06/18 to 06/21 for chest pain and syncopal episode In which his workup was essentially negative,. Echocardiogram did not feel pericardial effusion was significant however he does have a set rate of 118. Blood cultures were obtained and are preliminarily negative treated symptomatically for pancreatitis at this time, with right CVA angle tenderness and abnormal urinalysis consider UTI cannot explain extremely high and ESR of 118 #Pancreatitis clinically not fitting the picture on clear liquid diet with pain control Zofran, IV Tylenol prn, morphine 2-4mg prn for breakthrough pain Hold Lasix 20 Mg daily to avoid dehydration Given LEONARDO hold CTA of abd/pelvis to assess for ischemia. Giving timing of pain and relationship with food, may benefit from having a GI scope unsure of cause, renal function is still poor. LFTs are within normal range except for alk phos. no changes in WBC #Pericardial effusion echocardiogram does not show signs of worsening pericardial effusion or pericarditis despite with CT scan was read as None of any pleuritic chest pain or pericardial rub. ESR is significantly elevated however with his renal disease and vascular disease multiple other causes could be had with this Echocardiogram 07/07/2024 normal EF normal wall motion no significant valvular disease no significant pericardial effusion - of note patient's baseline sed rate appears to be around 80 blood cultures ordered negative to date #Atrial flutter with controlled ventricular rate, will consider restart of anticoagulation, did have afib on last admission and a history of flutter had been on eliquis in the past last noted on discharge from center care 05/19/24, renal dose adjusted, will restart #UTI Contaminant versus UTI although with CVA tenderness will cover with ABX amoxicillin 500 twice daily Urine cultures are negative to date . renal ultrasound did not show any abnormalities of renal anatomy, and although blood and urine renal functions improved with hydration to go against this being a nephritis #T2DM hold Jardiance, metformin, Rachel Question of pancreatitis is associate with Jeffcj on glargine 10 units every morning - reduced to 5U every morning with clear liquid diet Loose SSI goal 110-180, CF 25, defer carb ratio Expect need to tighten insulin control as diet progresses Chronic stable diagnoses: CKD - trace protein in UA, renal function improved from baseline, promote oral hydration history of right ankle fracture s/p ORIF 03/23, patient still with ambulatory dysfunction History of cardiac arrest - s/p cardiac cath 11/05/2021, severe mid LAD disease HLD continue atorvastatin and BB ASA GERD continue famotidine VTE ppx: heparin 5000u q12h chart review Admission and Anticipated Discharge Date Admission Date: July 07, 2024 Subjective Patient reports less pain today. He is asking to increase his diet. Physical Exam Physical Exam: Abdo: soft, ND. 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 His left foot is with all toes amputated without evidence of erythema warmth or drainage Results & Data Results & Data Vital Signs (Past 12 Hours) Vital Signs Temp Pulse Pulse Resp BP BP Pulse Ox 07/10/24 19:55 07/10/24 19:39 36.6 C 72 18 111/66 92 07/10/24 15:35 67 07/10/24 15:22 36.3 C L 85 19 117/63 95 O2 Del Method 07/10/24 19:55 Room Air 07/10/24 19:39 Room Air 07/10/24 15:35 07/10/24 15:22 Room Air PG Care Time/CCT Total # of Minutes Spent Total Time Spent with Patient: Total time spent is greater than 50% in coordination of care (as documented) at patient's floor/unit and/or counseling patient: Coding Level of Care Code 58688 SUB INP/OBS CARE 3/50MIN Diagnoses Pancreatitis K85.90 Acute pancreatitis complication: unspecified Chronicity: acute Pancreatitis type: unspecified pancreatitis type Pericardial effusion I31.39 UTI (urinary tract infection) N39.0 CKD stage 3 due to type 2 diabetes mellitus E11.22; N18.30 (1) Pancreatitis Acute pancreatitis complication: unspecified Chronicity: acute Pancreatitis type: unspecified pancreatitis type Qualified Code(s): K85.90 - Acute pancreatitis without necrosis or infection, unspecified
[2024-07-11 07:52] LABS: Hematocrit (blood only) 30.2 % (42.0-52.0); Hemoglobin 9.5 g/dl (14.0-18.0); Mean Corpuscular Hemoglobin 25.4 pg (25.0-34.0); Mean Corpuscular Hgb Conc 31.5 g/dL (32.0-36.0); Mean Corpuscular Volume 80.7 fL (80.0-100.0); Mean Platelet Volume 8.8 fL (9.4-12.4); Platelet Count 199 K/uL (130-400); RDW Coefficient of Variation 15.8 % (11.5-14.5); RDW Standard Deviation 45.8 fL (36.4-46.3); Red Blood Count 3.74 M/uL (4.70-6.10); White Blood Count 6.08 K/ul (4.8-10.8)
[2024-07-11 08:08] LABS: Albumin Globulin Ratio 0.7 (0.9-2); Albumin Level 2.9 gm/dl (3.4-5.0); BUN Creatinine Ratio 16.4 (10-20); Bilirubin,Total 0.3 mg/dl (0.2-1.0); Calcium 8.8 mg/dl (8.6-10.3); Creatinine Clr Calc Pharmacy 65.2 ml/min; Globulin 3.9 gm/dl (2.5-4.0); Potassium 4.4 mmol/L (3.5-5.1); Total Protein 6.8 gm/dl (6.0-8.3)
--- NOTE | 2024-07-11 08:23 | Gastroenterology Progress Note ---
Date of Service July 11, 2024 Assessment & Plan (1) Pancreatitis: Plan: Suspect clinically resolving pancreatitis. Etiology unclear. Recommend outpatient MRI MRCP in 2 to 3 weeks to better image the pancreas and pancreatic duct. Can advance diet to low-fat. Can also have him follow-up with us as an outpatient. Admission and Anticipated Discharge Date Admission Date: July 07, 2024 Subjective Feels better today less abdominal pain tolerated soft diet. No shortness of breath no chest pain. Physical Exam Physical Exam: No acute distress Respiratory rate regular Cardiac rhythm regular Abdomen soft nontender Results & Data Results & Data Vital Signs (Past 12 Hours) Vital Signs Temp Pulse Resp BP Pulse Ox O2 Del Method 07/11/24 08:00 36.6 C 84 18 165/94 H 92 Room Air 07/11/24 04:37 88 07/11/24 03:56 36.6 C 103 H 20 97/57 L 92 Room Air 07/10/24 23:35 36.4 C L 87 16 134/71 94 Room Air PG Care Time/CCT Total # of Minutes Spent Total Time Spent with Patient: Total time spent is greater than 50% in coordination of care (as documented) at patient's floor/unit and/or counseling patient: Coding Level of Care Code 18364 SUB INP/OBS CARE 2MIN Diagnoses Pancreatitis K85.90 Acute pancreatitis complication: unspecified Chronicity: acute Pancreatitis type: unspecified pancreatitis type (1) Pancreatitis Acute pancreatitis complication: unspecified Chronicity: acute Pancreatitis type: unspecified pancreatitis type Qualified Code(s): K85.90 - Acute pancreatitis without necrosis or infection, unspecified
[2024-07-11] MEDS: SODIUM CHLORIDE 0.9% 1,000 ML IV SCH (13:14)
[2024-07-11] MEDS: LIDOCAINE 5% 1 PATCH TD STA (13:43)
[2024-07-11] MEDS: OPTIRAY 320 125ml IV ONE (17:01)
--- NOTE | 2024-07-11 17:51 | CT Scan Report ---
EXAMINATION: CT of the abdomen and pelvis performed after the administration of IV contrast. TECHNIQUE: Helical CT images from the lung bases through the symphysis pubis were obtained with contrast. Coronal and sagittal reformatted images were generated at a workstation for further assessment. Additional 3D maximum intensity projection images were obtained and reviewed. Dose reduction techniques were achieved by using automatic exposure control and/or adjustment of mA and/or kV according to patient size and/or use of iterative reconstruction technique. COMPARISON: 07 July 2024 and 18 June 2024 noncontrast exams. Reports not available at the time of dictation. HISTORY: Right upper quadrant pain. Evaluate for ischemia. FINDINGS: In Classroom [employer] film demonstrates vertebroplasty changes. Lung windows demonstrate left lower lobe subsegmental atelectasis. Soft tissue windows demonstrate partially included at least small left pleural effusion. Small pericardial effusion. Cholecystectomy changes. Low-density nodule of the left adrenal gland with Hounsfield units measuring 4. This measures 2.6 cm diameter. This would be consistent with a macroadenoma. This is unchanged. Small amount of free fluid dependent pelvis. Uncomplicated large bowel diverticulosis. There is segmental wall thickening of the hepatic flexure. There is mild pericolonic inflammatory changes. Appendix is within normal limits. Remaining solid and hollow organs of the abdomen and pelvis are within normal limits. Prominent number small size retroperitoneal lymph nodes. Foci of increased attenuation bilateral parasagittal periumbilical subcutaneous soft tissues likely iatrogenic. No free air. No pneumatosis. No portal venous gas. Vascular windows demonstrate calcified atherosclerotic changes abdominal aorta renal and mesenteric vasculature. Distal mesenteric arcades are limiting due to size however no appreciated discrete vascular occlusion or significant flow-limiting stenosis. Atheromatous changes of the iliac and included femoral vasculature. These remain patent. Bone windows demonstrate vertebroplasty changes L1. No appreciated acute osseous process. IMPRESSION: 1. Mild calcified atheromatous changes systemic vasculature without appreciated occlusion or high-grade stenosis. In particular, of the mesenteric vasculature. No pneumatosis or portal venous gas. 2. Segmental wall thickening of the hepatic flexure large bowel with mild adjacent fat stranding. Segmental inflammatory or infectious colitis must be considered. Etiology uncertain. No discrete mass. Consider colonoscopy. 3. 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 4. Small left pleural effusion of uncertain etiology. Electronically signed by Mannie Ortega 07-11-2024 5:51 PM
--- NOTE | 2024-07-11 22:38 | Hospitalist Progress Note ---
Date of Service July 11, 2024 Assessment & Plan (1) Pancreatitis: (2) Pericardial effusion: (3) UTI (urinary tract infection): (4) CKD stage 3 due to type 2 diabetes mellitus: Plan Patient is a 68-year-old male with past medical history of cardiac arrest (approximately 3 years ago), CAD, GERD, hypertension, PAD, HLD, and diabetes. Patient has had numerous readmissions this year, had a long hospitalization in March for a right ankle fracture dislocation and left foot osteomyelitis. He was recently admitted from 06/18 to 06/21 for chest pain and syncopal episode In which his workup was essentially negative,. Echocardiogram did not feel pericardial effusion was significant however he does have a set rate of 118. Blood cultures were obtained and are preliminarily negative treated symptomatically for pancreatitis at this time, with right CVA angle tenderness and abnormal urinalysis consider UTI cannot explain extremely high and ESR of 118 #Pancreatitis clinically not fitting the picture on clear liquid diet with pain control Zofran, IV Tylenol prn, morphine 2-4mg prn for breakthrough pain Hold Lasix 20 Mg daily to avoid dehydration Given LEONARDO hold CTA of abd/pelvis to assess for ischemia. Giving timing of pain and relationship with food, may benefit from having a GI scope unsure of cause, renal function is still poor. LFTs are within normal range except for alk phos. no changes in WBC renal function improved with a GFR above 45. will obtain a ct scan with contrast with IV fluids. appreciate input from GI. #Pericardial effusion echocardiogram does not show signs of worsening pericardial effusion or pericarditis despite with CT scan was read as None of any pleuritic chest pain or pericardial rub. ESR is significantly elevated however with his renal disease and vascular disease multiple other causes could be had with this Echocardiogram 07/07/2024 normal EF normal wall motion no significant valvular disease no significant pericardial effusion - of note patient's baseline sed rate appears to be around 80 blood cultures ordered negative to date #Atrial flutter with controlled ventricular rate, will consider restart of anticoagulation, did have afib on last admission and a history of flutter had been on eliquis in the past last noted on discharge from [place] [facility] 05/19/24, renal dose adjusted, will restart #UTI Contaminant versus UTI although with CVA tenderness will cover with ABX amoxici llin 500 twice daily Urine cultures are negative to date . renal ultrasound did not show any abnormalities of renal anatomy, and although blood and urine renal functions improved with hydration to go against this being a nephritis #T2DM hold Salud, metforminRachel Question of pancreatitis is associate with Rachel on glargine 10 units every morning - reduced to 5U every morning with clear liquid diet Loose SSI goal 110-180, CF 25, defer carb ratio Expect need to tighten insulin control as diet progresses Chronic stable diagnoses: CKD - trace protein in UA, renal function improved from baseline, promote oral hydration history of right ankle fracture s/p ORIF 03/23, patient still with ambulatory dysfunction History of cardiac arrest - s/p cardiac cath 11/05/2021, severe mid LAD disease HLD continue atorvastatin and BB ASA GERD continue famotidine VTE ppx: heparin 5000u q12h chart review Admission and Anticipated Discharge Date Admission Date: July 07, 2024 Subjective 68 yo male reports no new symptoms. Physical Exam Physical Exam: Abdo: soft, ND. 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 Exam is regular lungs are clear. His left foot is with all toes amputated without evidence of erythema warmth or drainage Results & Data Results & Data Vital Signs (Past 12 Hours) Vital Signs Temp Pulse Pulse Resp BP Pulse Ox O2 Del Method 07/11/24 19:43 36.5 C 63 18 147/83 H 96 Room Air 07/11/24 19:28 Room Air 07/11/24 16:02 36.9 C 67 18 137/77 98 Room Air 07/11/24 13:00 67 07/11/24 11:41 36.5 C 67 18 138/77 95 Room Air PG Care Time/CCT Total # of Minutes Spent Total Time Spent with Patient: Total time spent is greater than 50% in coordination of care (as documented) at patient's floor/unit and/or counseling patient: Coding Level of Care Code 01609 SUB INP/OBS CARE 3/50MIN Diagnoses Pancreatitis K85.90 Acute pancreatitis complication: unspecified Chronicity: acute Pancreatitis type: unspecified pancreatitis type Pericardial effusion I31.39 UTI (urinary tract infection) N39.0 CKD stage 3 due to type 2 diabetes mellitus E11.22; N18.30 (1) Pancreatitis Acute pancreatitis complication: unspecified Chronicity: acute Pancreatitis type: unspecified pancreatitis type Qualified Code(s): K85.90 - Acute pancreatitis without necrosis or infection, unspecified
[2024-07-12 08:01] LABS: Hematocrit (blood only) 33.3 % (42.0-52.0); Hemoglobin 10.2 g/dl (14.0-18.0); Mean Corpuscular Hemoglobin 25.1 pg (25.0-34.0); Mean Corpuscular Hgb Conc 30.6 g/dL (32.0-36.0); Mean Corpuscular Volume 81.8 fL (80.0-100.0); Mean Platelet Volume 8.7 fL (9.4-12.4); Platelet Count 217 K/uL (130-400); RDW Standard Deviation 47.5 fL (36.4-46.3); Red Blood Count 4.07 M/uL (4.70-6.10); White Blood Count 5.23 K/ul (4.8-10.8)
[2024-07-12 08:44] LABS: BUN Creatinine Ratio 12.5 (10-20); Calcium 8.8 mg/dl (8.6-10.3); Creatinine Clr Calc Pharmacy 62.2 ml/min; Potassium 4.5 mmol/L (3.5-5.1)
--- NOTE | 2024-07-12 11:55 | Gastroenterology Progress Note ---
Date of Service July 12, 2024 Assessment & Plan (1) Pancreatitis: Plan: Patient appears to have clinically resolving pancreatitis. Etiology unclear. Dr. Gutierrez is recommending an outpatient MRI/MRCP in 2 to 3 weeks to better image the pancreas and pancreatic duct. Admission and Anticipated Discharge Date Admission Date: July 07, 2024 Supervising Physician Co-Signing Physician Notes I saw and examined this patient with our nurse practitioner and agree with her assessment and plan. Abdominal pain continues to slowly improve consistent with resolving pancreatitis. He is tolerating food better. CTA suggests some focal inflammatory changes at the hepatic flexure. Etiology is unclear he denies any significant lower GI symptoms such as diarrhea or bleeding. However may need to consider colonoscopy at some point unless he had one recently. This could be done as an outpatient which we could expedite when he is discharged. I will review the CT scan with radiology tomorrow. Subjective Patient still with some pain, but overall, he feels he has been doing better. tolerating low fat diet. rest of GI ros are unremarkable. Review of Systems Review of Systems: All systems reviewed & are unremarkable except as noted in HPI & below Physical Exam Constitutional: WD/WN, vitals as above Respiratory: normal respiratory effort, lungs clear to auscultation Cardiovascular: Rate/Rhythm: regular rate and regular rhythm Gastrointestinal (Abdomen): normal bowel sounds, soft, nontender, no hepatosplenomegaly Psychiatric: Orientation: alert and oriented x 3 Results & Data Results & Data Vital Signs (Past 12 Hours) Vital Signs Temp Pulse Pulse Resp BP BP Pulse Ox 07/12/24 11:35 97.6 F 88 14 130/77 95 07/12/24 08:30 97.6 F 84 14 177/102 H 95 07/12/24 07:40 07/12/24 07:00 85 07/12/24 02:58 97.3 F L 68 18 145/95 H 97 O2 Del Method 07/12/24 11:35 Room Air 07/12/24 08:30 Room Air 07/12/24 07:40 Room Air 07/12/24 07:00 07/12/24 02:58 Room Air Coding Level of Care Code 01099 SUB INP/OBS CARE 05/01MIN Diagnoses Pancreatitis K85.90 Acute pancreatitis complication: unspecified Chronicity: acute Pancreatitis type: unspecified pancreatitis type (1) Pancreatitis Acute pancreatitis complication: unspecified Chronicity: acute Pancreatitis type: unspecified pancreatitis type Qualified Code(s): K85.90 - Acute pancreatitis without necrosis or infection, unspecified
[2024-07-12] MEDS: LIDOCAINE 2% MPF LOCAL 5 ML VIAL INFIL ONE (17:19)
--- NOTE | 2024-07-12 17:20 | Communication Note ---
Date of Service: July 12, 2024 dr iglesias asked me to evaluate due to his clinical suspicion that there is a biomechanical and/or trigger point (and somatovisceral) component to pt's sym ptoms. chart reviewed, pt seen/examined. notes burning pain across upper right abdomen and radiation to back vitals noted nad heent nc at mmm breathing unlabored no accessory muscles good effort. biomechanical shows 2 discrete palpable myofascial trigger points R mid/lateral abdomen around a T9 dermatome - very tender. also has upper Lspine paraspinal hypertonicity and tenderness - direct myofascial, pt tolerated well trigger point injection procedure note: informed consent, risks/benefits/alternatives outlined, pt expressed understanding area cleansed with EtOH and betadine. 2 discrete trigger points located by palpation and dry needed followed by injection of ~1-1.5ml lidocaine per trigger point. pt tolerated well abdominal wall trigger points -abdominal burning may be somatovisceral from trigger points - trigger point injections and will continue w lidocaine patch for ongoing treatment. d/w pt to especially follow burning/pain over the next few hours - sometimes the lidocaine will create a transient "honeymoon period" where symptoms nancy some followed by worsening (this often is followed by a more lasting improvement ~2-5 days later); conversely if the injections make the cardinal symptom complex notably worse this also would suggest that the trigger points were culprit in causing the symptoms - but that it may take ~2-5 days for improvement and/or take f/u injections. not commonly but sometimes people will truly feel "an overnight success". the trickiest are when there's not really a noticable change - the trigger points were quite real and quite palpable - but if no change in symptoms it can be harder to determine if they're causing a somatovisceral reflex and simply require more treatment, or if they were an incidental structure not causative of the symptom complex at all back pain - R sided paraspinal hypertonicity - gentle myofascial done. can consider topical treatment as well and/or ongoing OMT (inpt or outpt) updated dr iglesias
--- NOTE | 2024-07-12 22:37 | Hospitalist Progress Note ---
Date of Service July 12, 2024 Assessment & Plan (1) Pancreatitis: (2) Pericardial effusion: (3) UTI (urinary tract infection): (4) CKD stage 3 due to type 2 diabetes mellitus: Plan Patient is a 68-year-old male with past medical history of cardiac arrest (approximately 3 years ago), CAD, GERD, hypertension, PAD, HLD, and diabetes. Patient has had numerous readmissions this year, had a long hospitalization in March for a right ankle fracture dislocation and left foot osteomyelitis. He was recently admitted from 06/18 to 06/21 for chest pain and syncopal episode In which his workup was essentially negative,. Echocardiogram did not feel pericardial effusion was significant however he does have a set rate of 118. Blood cultures were obtained and are preliminarily negative treated symptomatically for pancreatitis at this time, with right CVA angle tenderness and abnormal urinalysis consider UTI cannot explain extremely high and ESR of 118 #Pancreatitis clinically not fitting the picture on clear liquid diet with pain control Zofran, IV Tylenol prn, morphine 2-4mg prn for breakthrough pain Hold Lasix 20 Mg daily to avoid dehydration Given LEONARDO hold CTA of abd/pelvis to assess for ischemia. Giving timing of pain and relationship with food, may benefit from having a GI scope unsure of cause, renal function is still poor. LFTs are within normal range except for alk phos. no changes in WBC renal function improved with a GFR above 45. will obtain a ct scan with contrast with IV fluids. appreciate input from GI. Given continued pain, ordered a trigger point injection as his abdominal pain appears to be due to be musculoskeletal. will monitor reviewed CTA abd/pelvis: no signs of ischemia #Pericardial effusion echocardiogram does not show signs of worsening pericardial effusion or pericarditis despite with CT scan was read as None of any pleuritic chest pain or pericardial rub. ESR is significantly elevated however with his renal disease and vascular disease multiple other causes could be had with this Echocardiogram 07/07/2024 normal EF normal wall motion no significant valvular disease no significant pericardial effusion - of note patient's baseline sed rate appears to be around 80 blood cultures ordered negative to date #Atrial flutter with controlled ventricular rate, will consider restart of anticoagulation, did have afib on last admission and a history of flutter had been on eliquis in the past last noted on discharge from [facility] 05/19/24, renal dose adjusted, will restart #UTI Contaminant versus UTI although with CVA tenderness will cover with ABX amoxicillin 500 twice daily Urine cultures are negative to date . renal ultrasound did not show any abnormalities of renal anatomy, and although blood and urine renal functions improved with hydration to go against this being a nephritis #T2DM hold Salud, metforminRachel Question of pancreatitis is associate with Jeffcj on glargine 10 units every morning - reduced to 5U every morning with clear liquid diet Loose SSI goal 110-180, CF 25, defer carb ratio Expect need to tighten insulin control as diet progresses Chronic stable diagnoses: CKD - trace protein in UA, renal function improved from baseline, promote oral hydration history of right ankle fracture s/p ORIF 03/23, patient still with ambulatory dysfunction History of cardiac arrest - s/p cardiac cath 11/05/2021, severe mid LAD disease HLD continue atorvastatin and BB ASA GERD continue famotidine VTE ppx: heparin 5000u q12h chart review Admission and Anticipated Discharge Date Admission Date: July 07, 2024 Subjective 68 yo male reports still having pain. Physical Exam Physical Exam: Abdo: soft, ND. 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 Exam is regular lungs are clear. His left foot is with all toes amputated without evidence of erythema warmth or drainage Results & Data Results & Data Vital Signs (Past 12 Hours) Vital Signs Temp Pulse Pulse Resp BP BP Pulse Ox 07/12/24 19:33 36.6 C 85 20 172/69 H 94 07/12/24 16:24 36.5 C 71 18 152/88 H 98 07/12/24 14:15 65 07/12/24 11:35 36.4 C 88 14 130/77 95 O2 Del Method 07/12/24 19:33 Room Air 07/12/24 16:24 Room Air 07/12/24 14:15 07/12/24 11:35 Room Air PG Care Time/CCT Total # of Minutes Spent Total Time Spent with Patient: Total time spent is greater than 50% in coordination of care (as documented) at patient's floor/unit and/or counseling patient: Coding Level of Care Code 03573 SUB INP/OBS CARE MIN Diagnoses Pancreatitis K85.90 Acute pancreatitis complication: unspecified Chronicity: acute Pancreatitis type: unspecified pancreatitis type Pericardial effusion I31.39 UTI (urinary tract infection) N39.0 CKD stage 3 due to type 2 diabetes mellitus E11.22; N18.30 (1) Pancreatitis Acute pancreatitis complication: unspecified Chronicity: acute Pancreatitis type: unspecified pancreatitis type Qualified Code(s): K85.90 - Acute pancreatitis without necrosis or infection, unspecified
[2024-07-13 05:50] LABS: Hematocrit (blood only) 33.4 % (42.0-52.0); Hemoglobin 10.7 g/dl (14.0-18.0); Mean Corpuscular Hemoglobin 25.8 pg (25.0-34.0); Mean Corpuscular Volume 80.7 fL (80.0-100.0); Mean Platelet Volume 8.3 fL (9.4-12.4); Platelet Count 185 K/uL (130-400); RDW Coefficient of Variation 15.9 % (11.5-14.5); RDW Standard Deviation 46.5 fL (36.4-46.3); Red Blood Count 4.14 M/uL (4.70-6.10); White Blood Count 6.39 K/ul (4.8-10.8)
[2024-07-13 06:03] LABS: BUN Creatinine Ratio 11.3 (10-20); Calcium 8.8 mg/dl (8.6-10.3); Creatinine Clr Calc Pharmacy 70.6 ml/min; Potassium 4.4 mmol/L (3.5-5.1)
--- NOTE | 2024-07-13 11:24 | Gastroenterology Progress Note ---
Date of Service July 13, 2024 Assessment & Plan (1) Abdominal pain: (2) Vomiting: (3) Diarrhea: Plan He is having nausea, vomiting, and diarrhea since last night. - check stools for c diff. - start pantoprazole 40mg once daily. - continue antiemetics as needed. - planning for an MRI/MRCP as outpatient in 2-3 weeks given pancreatitis. - should consider colonoscopy at one point, which may be able to be done as an outpatient. Admission and Anticipated Discharge Date Admission Date: July 07, 2024 Supervising Physician Co-Signing Physician Notes I saw and examined this patient with our nurse practitioner and agree with her assessment and plan. Still with mid abdominal pain some diarrhea and nausea. Reviewed CT scan which demonstrates possible right-sided colitis. Await stool studies. If negative and persistent symptoms may need a colonoscopy for further assessment. No significant mesenteric stenosis noted on CTA. Subjective Patient tells me that this morning he started to have nausea with some vomiting. he also has noticed diarrhea this morning which he tells me is new. still having abdominal pain. Physical Exam Constitutional: WD/WN, vitals as above Respiratory: normal respiratory effort, lungs clear to auscultation Cardiovascular: Rate/Rhythm: regular rate and regular rhythm Gastrointestinal (Abdomen): epigastric tenderness, no guarding, soft. normal bowel sounds. Psychiatric: Orientation: alert and oriented x 3 Results & Data Results & Data Vital Signs (Past 12 Hours) Vital Signs Temp Pulse Pulse Resp BP BP Pulse Ox 07/13/24 08:24 97.5 F L 88 18 171/90 H 98 07/13/24 08:00 07/13/24 07:00 89 07/13/24 03:58 97.3 F L 88 20 125/80 94 07/13/24 00:08 97.9 F 88 20 167/66 H 93 O2 Del Method 07/13/24 08:24 Room Air 07/13/24 08:00 Room Air 07/13/24 07:00 07/13/24 03:58 Room Air 07/13/24 00:08 Room Air Coding Level of Care Code 73505 SUB INP/OBS CARE 2/35MIN Diagnoses Abdominal pain R10.9 Vomiting R11.10 Nausea presence: unspecified Vomiting type: unspecified Diarrhea R19.7 (2) Vomiting Nausea presence: unspecified Vomiting type: unspecified Qualified Code(s): R11.10 - Vomiting, unspecified
[2024-07-13] MEDS: PANTOprazole 40 MG TAB PO SCH (12:33)
[2024-07-13 15:35] LABS: Base Excess VBG -1.5 mEq/L; HCO3 VBG 25 mmol/L; Oxygen Saturation VBG < 60.0 %; PCO2 VBG 47 mmHg (38-50); PO2 VBG 33 mmHg; pH VBG 7.33 (7.36-7.41)
--- NOTE | 2024-07-13 22:48 | Hospitalist Progress Note ---
Date of Service July 13, 2024 Assessment & Plan (1) Pancreatitis: (2) Pericardial effusion: (3) UTI (urinary tract infection): (4) CKD stage 3 due to type 2 diabetes mellitus: Plan Patient is a 68-year-old male with past medical history of cardiac arrest (approximately 3 years ago), CAD, GERD, hypertension, PAD, HLD, and diabetes. Patient has had numerous readmissions this year, had a long hospitalization in March for a right ankle fracture dislocation and left foot osteomyelitis. He was recently admitted from 06/18 to 06/21 for chest pain and syncopal episode In which his workup was essentially negative,. Echocardiogram did not feel pericardial effusion was significant however he does have a set rate of 118. Blood cultures were obtained and are preliminarily negative treated symptomatically for pancreatitis at this time, with right CVA angle tenderness and abnormal urinalysis consider UTI cannot explain extremely high and ESR of 118 #Pancreatitis clinically not fitting the picture on clear liquid diet with pain control Zofran, IV Tylenol prn, morphine 2-4mg prn for breakthrough pain Hold Lasix 20 Mg daily to avoid dehydration Given LEONARDO hold CTA of abd/pelvis to assess for ischemia. Giving timing of pain and relationship with food, may benefit from having a GI scope unsure of cause, renal function is still poor. LFTs are within normal range except for alk phos. no changes in WBC renal function improved with a GFR above 45. will obtain a ct scan with contrast with IV fluids. appreciate input from GI. Given continued pain, ordered a trigger point injection as his abdominal pain appears to be due to be musculoskeletal. will monitor reviewed CTA abd/pelvis: no signs of ischemia Monitored overnight. Anticipate discharge tomorrow. #Pericardial effusion echocardiogram does not show signs of worsening pericardial effusion or pericarditis despite with CT scan was read as None of any pleuritic chest pain or pericardial rub. ESR is significantly elevated however with his renal disease and vascular disease multiple other c auses could be had with this Echocardiogram 07/07/2024 normal EF normal wall motion no significant valvular disease no significant pericardial effusion - of note patient's baseline sed rate appears to be around 80 blood cultures ordered negative to date #Atrial flutter with controlled ventricular rate, will consider restart of anticoagulation, did have afib on last admission and a history of flutter had been on eliquis in the past last [facility], renal dose adjusted, will restart #UTI Contaminant versus UTI although with CVA tenderness will cover with ABX amoxicillin 500 twice daily Urine cultures are negative to date . renal ultrasound did not show any abnormalities of renal anatomy, and although blood and urine renal functions improved with hydration to go against this being a nephritis #T2DM hold Salud, metforminRachel Question of pancreatitis is associate with Rachel on glargine 10 units every morning - reduced to 5U every morning with clear liquid diet Loose SSI goal 110-180, CF 25, defer carb ratio Expect need to tighten insulin control as diet progresses Chronic stable diagnoses: CKD - trace protein in UA, renal function improved from baseline, promote oral hydration history of right ankle fracture s/p ORIF 03/23, patient still with ambulatory dysfunction History of cardiac arrest - s/p cardiac cath 11/05/2021, severe mid LAD disease HLD continue atorvastatin and BB ASA GERD continue famotidine VTE ppx: heparin 5000u q12h chart review Admission and Anticipated Discharge Date Admission Date: July 07, 2024 Subjective Patient reports no new symptoms. Pain is slightly better controlled. Physical Exam Physical Exam: Abdo: soft, ND. Tender to palpation to right upper flank Exam of his skin does not show any rashes consistent with shingles the CVA on the right is rattling machine tender as well as his right lower quadrant Pain to palpation on right gluteal region near SI joint. Exam is regular lungs are clear. His left foot is with all toes amputated without evidence of erythema warmth or drainage Results & Data Results & Data Vital Signs (Past 12 Hours) Vital Signs Temp Pulse Pulse Resp BP BP Pulse Ox 07/13/24 19:51 36.8 C 85 20 162/91 H 95 07/13/24 15:22 36.6 C 71 18 134/66 91 07/13/24 13:45 74 07/13/24 11:21 36.5 C 92 H 18 138/88 91 O2 Del Method 07/13/24 19:51 Room Air 07/13/24 15:22 Room Air 07/13/24 13:45 07/13/24 11:21 Room Air PG Care Time/CCT Total # of Minutes Spent Total Time Spent with Patient: Total time spent is greater than 50% in coordination of care (as documented) at patient's floor/unit and/or counseling patient: Coding Level of Care Code 34681 SUB INP/OBS CARE MIN Diagnoses Pancreatitis K85.90 Acute pancreatitis complication: unspecified Chronicity: acute Pancreatitis type: unspecified pancreatitis type Pericardial effusion I31.39 UTI (urinary tract infection) N39.0 CKD stage 3 due to type 2 diabetes mellitus E11.22; N18.30 (1) Pancreatitis Acute pancreatitis complication: unspecified Chronicity: acute Pancreatitis type: unspecified pancreatitis type Qualified Code(s): K85.90 - Acute pancreatitis without necrosis or infection, unspecified
[2024-07-14 07:45] VITALS: RESP 16
--- NOTE | 2024-07-14 10:46 | Gastroenterology Progress Note ---
Date of Service July 14, 2024 Assessment & Plan (1) Abdominal pain: (2) Pancreatitis: Plan - continue pantoprazole 40mg once daily. - continue antiemetics as needed. - planning for an MRI/MRCP as outpatient in 2-3 weeks given pancreatitis. - should consider colonoscopy at one point, which may be able to be done as an outpatient. Admission and Anticipated Discharge Date Admission Date: July 07, 2024 Supervising Physician Co-Signing Physician Notes I saw and examined this patient with our nurse practitioner and agree with her assessment and plan. Patient clinically better today being discharged. Will need an outpatient colonoscopy to assess CT scan findings. Her office will set up the procedure for him. Subjective Patient feels better today. abdominal pain improved. no further nausea/vomiting. no further diarrhea. Review of Systems Review of Systems: All systems reviewed & are unremarkable except as noted in HPI & below Physical Exam 2 Constitutional: WD/WN, vitals as above Respiratory: normal respiratory effort, lungs clear to auscultation Cardiovascular: Rate/Rhythm: regular rate and regular rhythm Gastrointestinal (Abdomen): normal bowel sounds, soft, nontender, no hepatosplenomegaly Psychiatric: Orientation: alert and oriented x 3 Affect: euthymic affect Results & Data Results & Data Vital Signs (Past 12 Hours) Vital Signs Temp Pulse Pulse Resp BP BP Pulse Ox 07/14/24 08:30 07/14/24 07:44 97.6 F 88 16 146/87 H 94 07/14/24 07:00 87 07/14/24 03:33 97.7 F 91 H 20 179/93 H 92 07/13/24 23:20 97.9 F 81 20 162/91 H 92 O2 Del Method 07/14/24 08:30 Room Air 07/14/24 07:44 Room Air 07/14/24 07:00 07/14/24 03:33 Room Air 07/13/24 23:20 Room Air Coding Level of Care Code 17303 SUB INP/OBS CARE 05/01MIN Diagnoses Abdominal pain R10.9 Pancreatitis K85.90 Acute pancreatitis complication: unspecified Chronicity: acute Pancreatitis type: unspecified pancreatitis type (2) Pancreatitis Acute pancreatitis complication: unspecified Chronicity: acute Pancreatitis type: unspecified pancreatitis type Qualified Code(s): K85.90 - Acute pancreatitis without necrosis or infection, unspecified
--- NOTE | 2024-07-14 12:48 | Discharge Summary ---
Discharge Summary Date of Service July 14, 2024 Principal Dx & Hospital Course #1 = Principal Diagnosis (1) Pancreatitis: (2) Pericardial effusion: (3) UTI (urinary tract infection): (4) CKD stage 3 due to type 2 diabetes mellitus: Plan Patient is a 68-year-old male with past medical history of cardiac arrest (approximately 3 years ago), CAD, GERD, hypertension, PAD, HLD, and diabetes. Patient has had numerous readmissions this year, had a long hospitalization in March for a right ankle fracture dislocation and left foot osteomyelitis. He was recently admitted from 06/18 to 06/21 for chest pain and syncopal episode In which his workup was essentially negative,. Echocardiogram did not feel pericardial effusion was significant however he does have a set rate of 118. Blood cultures were obtained and are preliminarily negative treated symptomatically for pancreatitis at this time, with right CVA angle tenderness and abnormal urinalysis consider UTI cannot explain extremely high and ESR of 118 #Pancreatitis clinically not fitting the picture completely. Difficulty in finding source of abdominal pain. History of cholecystectomy and pain while he eats. Worked up patient for SMA stenosis: CTA of abd/pelvis: Segmental wall thickening of the hepatic flexure large bowel with mild adjacent fat stranding. Segmental inflammatory or infectious colitis must be considered. Etiology uncertain. No discrete mass. Consider colonoscopy. but no signs of SMA stenosis. Will recommend a colonoscopy as an outpatient. May also consider an upper scope. LFTs are within normal range except for alk phos. no changes in WBC Given continued pain, there was a question that there may be a musculoskeletal component. Asked Dr. Simon to assess and he agreed that patient did have some trigger pints on his exam. A corticosteroid injection was performed and patient showed some improvement with his pain. Patient agreeable to discharge. Anticipate pain to slowly improve over course of next few days. #Pericardial effusion echocardiogram does not show signs of worsening pericardial effusion or pericarditis despite with CT scan was read as None of any pleuritic chest pain or pericardial rub. ESR is significantly elevated however with his renal disease and vascular disease multiple other causes could be had with this Echocardiogram 07/07/2024 normal EF normal wall motion no significant valvular disease no significant pericardial effusion - of note patient's baseline sed rate appears to be around 80 blood cultures ordered negative to date #Atrial flutter with controlled ventricular rate, will consider restart of anticoagulation, did have afib on last admission and a history of flutter had been on eliquis in the past last [facility], renal dose adjusted, will restart #UTI Contaminant versus UTI although with CVA tenderness will cover with ABX amoxicillin 500 twice daily Urine cultures are negative to date . renal ultrasound did not show any abnormalities of renal anatomy, and although blood and urine renal functions improved with hydration to go against this being a nephritis #T2DM will resume home meds Chronic stable diagnoses: CKD - trace protein in UA, renal function improved from baseline, promote oral hydration history of right ankle fracture s/p ORIF 03/23, patient still with ambulatory dysfunction History of cardiac arrest - s/p cardiac cath 11/05/2021, severe mid LAD disease HLD continue atorvastatin and BB ASA GERD continue famotidine Admission HPI Per Admitting Provider Patient is a 68-year-old male with past medical history of cardiac arrest (approximately 3 years ago), CAD, GERD, hypertension, PAD, HLD, and diabetes. Patient has had numerous readmissions this year, had a long hospitalization in March for a right ankle fracture dislocation and left foot osteomyelitis. He was recently admitted from 06/18 to 06/21 for chest pain and syncopal episode In which his workup was essentially negative, chest CTA negative, venous Dopplers negative, echocardiogram showed EF 65 to 70%, small pericardial effusion, mild pulmonary hypertension, mild LVH. he came into the ED today due to abdominal pain and was found to have a lipase of 100 and acute pancreatitis on CT scan. CT scan also mention pericardial thickening with concern for pericarditis. He is being admitted for pancreatitis. Patient seen at bedside. he stated that he began with abdominal pain Friday after recently increasing his Mounjaro from 2.5 Mg to 5 Mg. He has been consistent 2.5 Mg for 4 months and believes this increase caused the pancreatitis. He has a history of pancreatitis most recent episode in 2014. He had his gallbladder removed and has not had an episode since. He stated his abdominal pain is in the right upper and lower side of his abdomen. He also endorses nausea, vomiting, and diarrhea for approximately a week. He has had decreased oral intake for the past week due to his stomach being upset. He endorses dizziness and lightheadedness however chronic and unchanged. He denies any chest pain, shortness of breath, urinary symptoms, no dysuria, hematuria, increase in urinary frequency. He stated his chest pain from the his admission in early June is resolved. He denies nicotine use or alcohol use, no history of chronic alcohol use. He has not taken his home medications in approximately 2 days due to his stomach being upset. Discharge Exam Abdo: soft, ND. Tender to palpation to right upper flank Exam of his skin does not show any rashes consistent with shingles the CVA on the right is hot kettle tender as well as his right lower quadrant Pain to palpation on right gluteal region near SI joint. Exam is regular lungs are clear. His left foot is with all toes amputated without evidence of erythema warmth or drainage Discharge Plan Discharge Items Patient Disposition: Home - Self-Care Reason For Visit: PANCREATITIS, PERICARDITIS WORKUP Discharge Diagnosis: pancreatitis Activity: Resume your previous activity Non-emergency contact: Primary Care Provider Call non-emergency contact if: you have any medication questions Follow-up/Referrals: Dora Sales MD [Primary Care Provider] - 07/21/24 11:00 am (Hospital follow up scheduled July 21 at 11:00) Diet: Carb Consistent or DM2 Diet Texture: Dental soft (bite-sized) Addtl Attending Provider Instructions: -Recommend followup with PCP in 1-2 weeks. -continue pantoprazole 40mg once daily. - planning for an MRI/MRCP as outpatient in 2-3 weeks given pancreatitis. - consider colonoscopy at one point, which may be able to be done as an outpatient. Ordered lidocaine patches for pain as needed. If too expensive over the counter versions are available. Pending Studies at Discharge: No Stand-Alone Forms: My [facility], Smoking Cessation Medications and DC Order Prescriptions: New pantoprazole 40 mg Tablet,Delayed Release (Dr/Ec) 40 mg PO QAM Qty: 30 0RF Eliquis 5 mg Tablet 5 mg PO BID Qty: 60 0RF sucralfate 1 gram tablet 1 g PO ACHS 28 Days Qty: 112 0RF lidocaine 5 % adhesive patch,medicated See Rx Instructions .ROUTE .COMPLEX Qty: 15 0RF Rx Instructions: leave on most painful area for up to 12 hrs keep off for 12 hours/ usually for day time. Continued cyanocobalamin (vitamin B-12) 1,000 mcg capsule 1,000 mcg PO DAILY (DME) [employer] Remigio 2 Traphill [facility] See Rx Instructions .Route Qty: 1 0RF Rx Instructions: Use to monitor blood sugars daily (DME) [employer] Remigio 2 Sensor Kit See Rx Instructions .Route Qty: 7 3RF Rx Instructions: Change sensor every 14 days metformin 500 mg tablet 500 mg PO BID 90 Days Qty: 180 3RF duloxetine [Cymbalta] 20 mg capsule,delayed release(DR/EC) 20 mg PO BID Qty: 180 3RF Jardiance 25 mg tablet 25 mg PO QAM Qty: 90 3RF atorvastatin [Lipitor] 10 mg tablet 10 mg PO HS Qty: 90 3RF (DME) pen needle, diabetic [BD Ultra-Fine Mini Pen Needle] 31 gauge x 3/16" needle .ROUTE .MEDSUPPLY Qty: 400 3RF Rx Instructions: use 4 needles daily insulin glargine [Basaglar KwikPen U-100 Insulin] 100 unit/mL (3 mL) insulin pen 10 unit subcut QAM Qty: 15 3RF Rx Instructions: ( states dc CC 05/19 pt started mounjaro 2.5 mg and decreased dose to 10 units instead of 80 due to bsg's low) (DME) blood-glucose meter [OneTouch Verio Flex meter] [facility] See Rx Instructions .ROUTE .MEDSUPPLY Qty: 1 0RF Rx Instructions: use to test blood sugar As directed (DME) OneTouch Verio test strips Strip See Rx Instructions .ROUTE .MEDSUPPLY Qty: 100 3RF Rx Instructions: test blood sugar one time daily (DME) lancets [Accu-Chek Fastclix Lancet Drum] [facility] See Rx Instructions .ROUTE .MEDSUPPLY Rx Instructions: test blood sugar 1 x daily melatonin 10 mg capsule 10 mg PO HS PRN (Reason: Sleep) Saccharomyces boulardii [Florastor] 250 mg capsule 250 mg PO BID Qty: 60 5RF albuterol sulfate 90 mcg/actuation HFA aerosol inhaler 2 puff inhalation Q6H PRN (Reason: shortness of breath or wheezing) Qty: 6.7 0RF insulin lispro 100 unit/mL insulin pen 10 unit subcut BID Rx Instructions: New DC CC 05/19/24 acetaminophen [Tylenol 8 Hour] 650 mg tablet extended release 650 mg PO Q6H PRN (Reason: Pain) furosemide [Lasix] 20 mg tablet 20 mg PO DAILY Qty: 90 3RF metoprolol succinate 25 mg tablet extended release 24 hr 25 mg PO DAILY Qty: 90 3RF famotidine 20 mg tablet 20 mg PO BID PRN (Reason: heartburn) Qty: 60 5RF ondansetron HCl 4 mg tablet 4 mg PO Q8H PRN (Reason: nausea and vomiting) Qty: 30 5RF aspirin 81 mg tablet,delayed release (DR/EC) 81 mg PO DAILY Qty: 30 2RF cholecalciferol (vitamin D3) [Vitamin D3] 25 mcg (1,000 unit) tablet 25 mcg PO DAILY Mounjaro 5 mg/0.5 mL pen injector 5 mg subcut WK Rx Instructions: Fridays Discharge Orders: Discharge Order (Routine); Ordered 07/14/24 Ordered By: Tacho Berman Admission Data Admit Date/Time: 07/07/24 14:20 Attending Provider: Tacho Berman Admit Provider: Cam Patel Primary Care Provider: Dora Sales Other Providers: Liang Gutierrez I; Jogre Simon Other Interventions: Discharge Summary Assessment (RN) Last Done: 07/14/24 12:58 Hospital Stay Data Consultations 07/07/24 12:47 ED Decision to Admit Stat 07/10/24 10:57 Consult Gastroenterology Routine Diagnostic Imagining Performed 07/07/24 11:52 CT abd pelvis wo con Stat 07/08/24 10:41 US Renal Bladder [US renal/blad retro comp] Routine 07/09/24 09:04 US Mesentary Duplex [US duplex mesenteric] Urgent 07/11/24 12:43 CTA abdomen pelvis w con [CT angio abdomen pelvis w con] Urgent Pending Results Patient Have Any Pending Studies at Discharge: No Discharge Instructions Given to Patient (Per Discharging Provider) -Recommend followup with PCP in 1-2 weeks. -continue pantoprazole 40mg once daily. - planning for an MRI/MRCP as outpatient in 2-3 weeks given pancreatitis. - consider colonoscopy at one point, which may be able to be done as an outpatient. Ordered lidocaine patches for pain as needed. If too expensive over the counter versions are available. Total Time Total Time Spent Total Time Spent (In Minutes): 32 Coding Level of Care Code 07780 INP/OBS DISCH >30 MIN Diagnoses Pancreatitis K85.90 Acute pancreatitis complication: unspecified Chronicity: acute Pancreatitis type: unspecified pancreatitis type Pericardial effusion I31.39 UTI (urinary tract infection) N39.0 CKD stage 3 due to type 2 diabetes mellitus E11.22; N18.30
[2024-07-14 15:51] VITALS: BP 154/81; PULSE 87; TEMP 97.5; O2SAT 97
== END 2024-07-14 17:20 | disposition home or self-care (01) | DRG 439 ==
LOC: ED 11:20 → 2W 14:20 → SUATTDRO 14:20 → 2W 15:26
DX: E78.5 Hyperlipidemia, unspecified; R10.9 Unspecified abdominal pain; R11.2 Nausea with vomiting, unspecified; I31.39 Other pericardial effusion (noninflammatory); I48.92 Unspecified atrial flutter; R26.2 Difficulty in walking, not elsewhere classified; Z79.899 Other long term (current) drug therapy; M54.89 Other dorsalgia; I10 Essential (primary) hypertension; Z86.74 Personal history of sudden cardiac arrest; I25.10 Atherosclerotic heart disease of native coronary artery without angina pectoris; Z79.84 Long term (current) use of oral hypoglycemic drugs; Z87.81 Personal history of (healed) traumatic fracture; E11.51 Type 2 diabetes mellitus with diabetic peripheral angiopathy without gangrene; E11.22 Type 2 diabetes mellitus with diabetic chronic kidney disease; Z79.82 Long term (current) use of aspirin; K85.90 Acute pancreatitis without necrosis or infection, unspecified; K21.9 Gastro-esophageal reflux disease without esophagitis; Z90.49 Acquired absence of other specified parts of digestive tract; Z79.4 Long term (current) use of insulin; R19.7 Diarrhea, unspecified; Z87.19 Personal history of other diseases of the digestive system; N18.30 Chronic kidney disease, stage 3 unspecified; Z79.85 Long-term (current) use of injectable non-insulin antidiabetic drugs; N39.0 Urinary tract infection, site not specified

== ENCOUNTER 2024-11-18 07:22 | Inpatient (IN) ==
[2024-11-18 08:09] VITALS: TEMP 98.6
[2024-11-18 08:13] LABS: Hematocrit (blood only) 30.4 % (42.0-52.0); Hemoglobin 9.5 g/dl (14.0-18.0); Immature Granulocytes # (auto) 0.09 K/uL (0.01-0.20); Immature Granulocytes % (auto) 0.8 %; Mean Corpuscular Hemoglobin 25.2 pg (25.0-34.0); Mean Corpuscular Volume 80.6 fL (80.0-100.0); Platelet Count 231 K/uL (130-400); RDW Standard Deviation 40.4 fL (36.4-46.3); Red Blood Count 3.77 M/uL (4.70-6.10); White Blood Count 10.61 K/ul (4.8-10.8)
[2024-11-18 08:35] LABS: Alanine Aminotransferase 5 U/L (7-52); Albumin Globulin Ratio 0.7 (0.9-2); Alkaline Phosphatase 235 U/L (34-104); Anion Gap 8 (3-11); Bilirubin,Total 0.4 mg/dl (0.2-1.0); Blood Urea Nitrogen 42 mg/dl (6-23); Calcium 8.8 mg/dl (8.6-10.3); Carbon Dioxide 25 mmol/L (21-32); Chloride 100 mmol/L (98-107); Globulin 4.7 gm/dl (2.5-4.0); Glucose 269 mg/dl (70-99(Fasting)); Potassium 5.3 mmol/L (3.5-5.1); Sodium 133 mmol/L (136-145); Total Protein 8.0 gm/dl (6.0-8.3)
[2024-11-18] MEDS: ONDANSETRON INJ 2 MG/ML 2 ML VIAL IV STA (08:58)
--- NOTE | 2024-11-18 10:32 | Emergency Department Note ---
Impression & Plan Open wound of foot, Diabetic foot infection, Acute hyperkalemia ED Provider Note CHIEF COMPLAINT: Right foot pain HISTORY OF PRESENTING ILLNESS: Patient is a 68-year-old male presents to the emergency department today for complaints of right foot pain. He has a history of cardiac arrest (approximately 3 years ago), CAD, GERD, hypertension, PAD, HLD, diabetic neuropathy, and diabetes. He has a wound to the right heel that has opened and is leaking fluid and blood per the patient and his . believes that she saw bone sticking out earlier today. He also has a small ulcer on the right first toe. He did have a fractured ankle back in March and had an operation and since has had wound complications. He does follow with Dr. Shin but has not been seen for 2 to 3 months. He states he developed some chills this morning but otherwise has been without. He denies chest pain, sob, breathing difficulties, abdominal pain, headache, blood in stool or urine, any recent illness, or any recent travel. REVIEW OF SYSTEMS: See HPI for pertinent positives and pertinent negatives. ALLERGIES: See below MEDICATIONS: See below PAST MEDICAL HISTORY: See below PHYSICAL EXAM: VITAL SIGNS - Vital signs and nursing notes were reviewed. GENERAL -68-year-old male stated age and in noticeable discomfort throughout the exam. MUSCULOSKELETAL -right foot mild erythema, edema, and ecchymosis. There is a dime sized open area to the right inferior heel. There is bloody drainage seeping out of the area. There is a superficial open area to the right 1st toe. Mild tenderness to palpation appreciated over the inferior aspect. No tenderness to palpation in the plantar arch. No tenderness extending into the ankle or toes. Range of motion is intact. Slightly decreased due to swelling. NEUROLOGIC/VASCULAR - Neurovascularly intact distally with +3/5 dorsalis pedis pulses palpated bilaterally. Decreased but present sensation to light and sharp touch appreciated distally. SKIN: Capillary refill <2 sec. EYES: PERRLA. EOMI. Conjunctivae without injection, sclerae without icterus. NOSE: Patent without discharge. MOUTH: Mucous membranes moist. Uvula midline. Airway patent. NECK: Supple without nuchal rigidity. HEART: Regular rate and rhythm without murmurs gallops or rubs. LUNGS: Clear to auscultation bilaterally without wheezes, rales or rhonchi. No retractions or accessory muscle use. ABDOMEN: Positive bowel sounds x 4. Normal tympanic percussion. Soft, nontender to palpation. No masses or hepatosplenomegaly. Britt sign negative. No CVA tenderness. No guarding, rigidity, or rebound tenderness. No focal RLQ or LLQ tenderness. DIFFERENTIAL DIAGNOSIS: Osteomyelitis, septic joint, fracture, tendon or ligament injury, sepsis, unhealed wound, among others. ED COURSE AND MEDICAL DECISION MAKING: HISTORY FROM INDEPENDENT HISTORIAN: History was provided by the patient and his who is a secondary historian. MONITOR: Continuous conveyor monitor: Order was placed for continuous conveyor monitor. Patient was placed on the conveyor monitor and continuous pulse ox. Patient was noted to be in normal sinus rhythm at an initial rate of 79 bpm per my interpretation. EKG: EKG was interpreted by myself as normal sinus rhythm with poor R wave progression and ST elevation present in the inferior leads. Rate of 81 bpm. INTERPRETATION OF LABS: I interpreted the labs with full lab results as below in the lab section of this note. Laboratory results pertinent to the emergent complaint are discussed in the MDM section below. The patient was advised to follow up with their PCP and/or specialist(s) for further outpatient monitoring and management of any abnormal results. INTERPRETATION OF IMAGING: Imaging studies were interpreted by myself and read by radiology as per the imaging section of this note. The patient was advised to follow up with their PCP and/or specialist(s) for further outpatient management of any non-emergent abnormal findings. CHRONIC MEDICAL/SOCIAL CONDITIONS AFFECTING CARE: No social concerns were identified as barriers to patients care. EXTERNAL RECORDS REVIEWED: Patient's recent primary care visit from 09/10/2024 as well as primary care visit from 07/21/2024. I also reviewed the patient's hospitalist progress notes from 07/08/2024, 07/09/2024, 07/10/2024. I also reviewed the patient's nephrology visit from 08/11/2024. ESCALATION OF CARE CONSIDERED: I considered admission on this patient due to right foot infection and hyperkalemia. CONSULTATIONS: I had a meaningful discussion about this patient with Dr. Frazier who agrees with my assessment and the treatment plan. SUMMARY: I examined the patient for complaints of right foot pain with ulcer. A physical exam and history were performed. Nursing notes, EMR, and medication list were personally reviewed. Patient CBC showed no leukocytosis. Does appear to be anemic with a hemoglobin of 9.5. No thrombocytopenia. CMP did show potassium of 5.3 and a sodium of 133. Creatinine was 1.95 glucose was 269 AST 11 ALT 5 and alkaline phosphatase was 235. X-ray of the right foot did show extensive hardware with nonspecific air within the soft tissues. Patient was given fentanyl 50 mcg and Zofran 4 mg with improvement in pain and nausea. I consulted with Dr. Apodaca for admission to the hospital. The patient was accepted and care was transferred with the patient in good condition. The patient was ordered Zosyn 4.5 g and daptomycin 700 mg. DIAGNOSIS: Right foot infection, right foot open wound, hyperkalemia TREATMENT PLAN/DISCHARGE INSTRUCTIONS: Admit to hospitalist services. Past Med/Surg History Problem List (Updated 11/19/24 @ 14:08 by CONY Mckeon) Acute hyperkalemia (Acute) Diabetic foot infection (Acute) Open wound of foot (Acute) Right foot infection History of colon polyps Tinea pedis of both feet Loss of protective sensation of skin of deformed foot Gait instability Status post transmetatarsal amputation of left foot Abdominal pain CKD (chronic kidney disease) (Acute) Pancreatitis (Acute) Pericardial effusion Syncope (Acute) Chest pain (Acute) Tachycardia Morbid obesity with BMI of 50.0-59.9, adult Chronic ulcer of left foot with necrosis of bone Diabetic neuropathy Open fracture dislocation of right ankle WYNN (dyspnea on exertion) Venous ulcer of right leg Diabetic foot ulcer (Acute) Urinary urgency Diabetic nephropathy associated with type 2 diabetes mellitus CKD stage 3 due to type 2 diabetes mellitus Diabetes type 2, controlled Class 3 obesity Status post partial amputation of foot Complex sleep apnea syndrome Nocturnal hypoxemia CAD (coronary artery disease) (Chronic) Chronic, heavily calcified severe mid LAD disease (70 to 80% by IVUS) per 11/05/21 cardiac cath- medically managed Chronic constipation Cardiopulmonary arrest with successful resuscitation (Chronic) - 11/06/2021, [facility]>"in to have a PICC line placed for abx tx, flatlined" - Etiology of arrest seems unclear- seems that this was a PEA arrest per 11/06/21 cardio note BPH loc w urin obs/LUTS (Chronic Unknown) PAD (peripheral artery disease) (Chronic) CKD (chronic kidney disease) (Chronic) Chronic venous insufficiency Diabetes mellitus with diabetic polyneuropathy (Chronic) Nonproliferative diabetic retinopathy (Chronic) Depression (Chronic) Disc degeneration, lumbar (Chronic) Dyslipidemia (Chronic) Hypertension (Chronic) Psoriasis (Chronic) GERD (gastroesophageal reflux disease) (Chronic) Medical History History of peripheral arterial disease Gait instability hx WYNN (dyspnea on exertion) hx Hx of diabetic foot ulcer "none currently" per and pt. Chronic venous insufficiency Cardiopulmonary arrest with successful resuscitation - 11/06/2021, [facility]>"in to have a PICC line placed for abx tx, flatlined" - Etiology of arrest seems unclear- seems that this was a PEA arrest per 11/06/21 cardio note Chronic constipation Slow to wake up after anesthesia 03/2024 foot surgery, "told they might have given him a little too much" Diabetes mellitus, type 2 well-controlled per pt and Hx of psoriasis Pericardial effusion hx, 07/2024, resolved Hx of pancreatitis 07/2024, found to be from [facility], no longer taking History of hypertension Hx of gastroesophageal reflux (GERD) Dyslipidemia Hx of diabetic neuropathy History of depression Complex sleep apnea syndrome not compliant with CPAP Hx of chronic kidney disease f/u dr. kaplan, [facility] Hx of coronary artery disease History of BPH w/LUTS Hx MRSA infection pt and deny History of colon polyps Surgical History History of ankle surgery early 03/2024, right ankle-application external fixator for fracture of ankle late 03/2024, removal ex-fix, application of external splint H/O kyphoplasty (2022) following L1 burst fracture Status post amputation of toe of left foot 2nd toe lt History of cardiac cath following an unexplained cardiac arrest>per medical record>11/05/21, [facility], no stents; f/u [facility] yearly Status post amputation of left great toe History of incision and drainage Hx of I&D of mendel-rectal abscess History of cataract surgery bilt History of cholecystectomy History of tooth extraction wisdom teeth History of colonoscopy Colonoscopy 01/21/[address] Garg. History of adenoidectomy History of tonsillectomy Status post uvulopalatopharyngoplasty S/P foot surgery, left partial amputation w/3 remaining toes on left foot removed Family History Mother Family history of diabetes mellitus Father History of alcoholism History of liver cancer Sister Cancer Denies family history of Ovarian cancer Prostate cancer Crohn's disease Breast cancer Colorectal cancer Social History Smoking Status: Never smoker Tobacco Type: Declines Age Started Using Tobacco: 18; Age Quit Using Tobacco: 48; packs per day: 1.5; Second Hand Exposure: Yes (hx); Do You Dip or Chew Tobacco: No; Hx Alcohol Use: Yes Alcohol type: beer Alcohol Intake Frequency: Monthly or Less Hx Substance Use: No Preferred Language: Sami Communication Ability: Effective Visual Impairment: No Limitations Hearing Ability: Normal Embedded Software Architect Required: No Beliefs That Will Affect Care: None marital status: Current Living Situation: Spouse Current Living Situation Comment: Lives with and dog current occupational status: employed 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 Feels Safe at Home: Yes Childhood Exposure to Second-Hand Smoke: Yes Diet: regular Diet Comment: "tries to feed me right, but sometimes it doesn't always happen" caffeine: Yes during the past year weight has: decreased > 10 lbs Physical Activity Frequency: Does not Exercise Seatbelt Use: never Do you think of yourself as: straight/heterosexual Gender Identity: Male Assistive Devices: None Allergies Allergies Allergy/AdvReac Type Severity Reaction Status Date / Time No Known Allergies Allergy Verified 10/07/24 08:21 Home Meds Home Medications Medication Instructions Recorded Confirmed lancets (Accu-Chek Fastclix Lancet 08/23/20 09/10/24 Drum) cyanocobalamin (vitamin B-12) 1,000 mcg PO QAM 12/26/23 11/18/24 1,000 mcg capsule cholecalciferol (vitamin D3) 25 25 mcg PO QAM 03/01/24 11/18/24 mcg (1,000 unit) tablet (Vitamin D3) acetaminophen 650 mg 650 mg PO Q6H PRN Pain 05/20/24 11/18/24 tablet,extended release (Tylenol 8 Hour) aspirin 81 mg tablet,delayed 81 mg PO QAM 09/27/24 11/18/24 release furosemide 20 mg tablet (Lasix) 20 mg PO QAM 09/27/24 11/18/24 insulin glargine 100 unit/mL (3 18 unit subcut QAM 09/27/24 11/18/24 mL) subcutaneous pen (Basaglar KwikPen U-100 Insulin) ketoconazole 2 % topical cream 1 applic topical DAILY PRN Skin 09/27/24 11/18/24 Irritation lidocaine 5 % topical patch 1 patch topical UD PRN Pain 09/27/24 11/18/24 metoprolol succinate 25 mg 25 mg PO QAM 09/27/24 11/18/24 tablet,extended release 24 hr metformin 500 mg tablet 0 mg PO BID 11/18/24 11/18/24 tamsulosin 0.4 mg capsule 0.4 mg PO PM 11/18/24 11/18/24 Previous Rx's Medication Instructions Recorded FreeStyle Remigio 2 [place] (flash #1 ea 01/24/21 glucose scanning reader) FreeStyle Remigio 2 Sensor (flash #7 ea 01/24/21 glucose sensor) atorvastatin 10 mg tablet (Lipitor) 10 mg PO HS #90 tabs 02/24/24 duloxetine 20 mg capsule,delayed 20 mg PO BID #180 caps 02/24/24 release (Cymbalta) empagliflozin 25 mg tablet 25 mg PO QAM #90 tabs 02/24/24 (Jardiance) pen needle, diabetic 31 gauge x #400 ea 02/24/24 3/16" (BD Ultra-Fine Mini Pen Needle) Saccharomyces boulardii 250 mg 250 mg PO BID #60 caps 05/25/24 capsule (Florastor) blood sugar diagnostic (OneTouch #100 ea 05/25/24 Verio test strips) blood-glucose meter (OneTouch #1 ea 05/25/24 Verio Flex Meter) pantoprazole 40 mg tablet,delayed 40 mg PO QAM #90 tabs 07/26/24 release insulin aspart U-100 100 unit/mL 16 unit (0.16 mL) subcut BID #30 mL 09/27/24 (3 mL) subcutaneous pen (Novolog FlexPen U-100 Insulin aspart) gabapentin 100 mg capsule 200 mg (2 x 100 mg) PO DAILY 90 10/20/24 days #180 caps apixaban 5 mg tablet (Eliquis) 5 mg PO BID #60 tabs 10/22/24 Results & Data (ED) Vital Signs Vital Signs - 24 hr 11/18/24 07:30 11/18/24 08:01 11/18/24 08:07 Temperature 37.0 C 37 C Temperature Source Oral Oral Pulse Rate 81 83 Pulse Rate [Apical] 79 Respiratory Rate 22 20 Respiratory Effort / Characteristics Spontaneous Non-Labored Spontaneous Respiratory Depth Normal Normal Respiratory Pattern Regular Regular Blood Pressure 134/76 Blood Pressure [Right Arm] 170/73 H Blood Pressure Mean 95 Blood Pressure Mean [Right Arm] 105 Blood Pressure Position [Right Arm] Semi-fowlers Pulse Oximetry 96 96 Oxygen Delivery Method Room Air Room Air Sepsis Recent Fever Within 48 Hours No Sepsis New/Unexplained Change in Mental Status No Sepsis Action Taken by Nursing No Action Required 11/18/24 10:15 11/18/24 12:16 Temperature Temperature Source Pulse Rate Pulse Rate [Apical] 79 96 H Respiratory Rate 18 23 Respiratory Effort / Characteristics Non-Labored Spontaneous Respiratory Depth Normal Respiratory Pattern Blood Pressure Blood Pressure [Right Arm] 158/87 H 186/77 H Blood Pressure Mean Blood Pressure Mean [Right Arm] 110 113 Blood Pressure Position [Right Arm] Semi-fowlers Pulse Oximetry 94 92 Oxygen Delivery Method Room Air Room Air Sepsis Recent Fever Within 48 Hours Sepsis New/Unexplained Change in Mental Status Sepsis Action Taken by Nursing Laboratory Data 11/18/24 07:55 11/18/24 16:36 Lab Results 11/18/24 11/18/24 11/18/24 Range/Units 07:54 07:55 12:12 WBC 10.61 (4.8-10.8) K/ul RBC 3.77 L (4.70-6.10) M/uL Hgb 9.5 L (14.0-18.0) g/dl Hct 30.4 L (42.0-52.0) % MCV 80.6 (80.0-100.0) fL MCH 25.2 (25.0-34.0) pg MCHC 31.3 L (32.0-36.0) g/dL RDW Std Deviation 40.4 (36.4-46.3) fL RDW Coeff of Mejia 14.0 (11.5-14.5) % Plt Count 231 (130-400) K/uL MPV 8.4 L (9.4-12.4) fL Immature Gran % (Auto) 0.8 % Neut % (Auto) 83.0 % Lymph % (Auto) 6.1 % [place] % (Auto) 9.3 % Eos % (Auto) 0.4 % Baso % (Auto) 0.4 % Neut # (Auto) 8.80 H (1.40-6.50) K/uL Lymph # (Auto) 0.65 L (1.20-3.40) K/uL [place] # (Auto) 0.99 H (0.11-0.59) K/uL Eos # (Auto) 0.04 (0.00-0.50) K/uL Baso # (Auto) 0.04 (0.00-0.20) K/uL Immature Gran # (Auto) 0.09 (0.01-0.20) K/uL Sodium 133 L (136-145) mmol/L Potassium 5.3 H (3.5-5.1) mmol/L Chloride 100 (98-107) mmol/L Carbon Dioxide 25 (21-32) mmol/L Anion Gap 8 (3-11) BUN 42 H (6-23) mg/dl Creatinine 1.95 H (0.6-1.4) mg/dl Est Cr Clr Drug Dosing Not Reportable eGFR 36.78 BUN/Creatinine Ratio 21.5 H (10-20) Glucose 269 H (70-99(Fasting)) mg/dl POC Glucose 293 H (70-99) mg/dl Lactate 2.0 (0.4-2.0) mmol/L Calcium 8.8 (8.6-10.3) mg/dl Total Bilirubin 0.4 (0.2-1.0) mg/dl AST 11 L (13-39) U/L ALT 5 L (7-52) U/L Alkaline Phosphatase 235 H (34-104) U/L Total Protein 8.0 (6.0-8.3) gm/dl Albumin 3.3 L (3.4-5.0) gm/dl Globulin 4.7 H (2.5-4.0) gm/dl Albumin/Globulin Ratio 0.7 L (0.9-2) Procalcitonin 1.60 H (0-0.5) ng/ml Administered Medications Discontinued Medications Fentanyl Citrate (Fentanyl Citrate Pf 100 Mcg/2 Ml Vial) 50 mcg IV NOW STA Stop: 11/18/24 08:27 Last Admin: 11/18/24 08:58 Dose: 50 mcg Documented By: MARIE Piperacillin Sod/Tazobactam Sod (Zosyn) 4.5 gm in 100 mls @ 200 mls/hr IV NOW ONE; Protocol Stop: 11/18/24 12:07 Last Admin: 11/18/24 12:06 Dose: Not Given Documented By: MARCUS Daptomycin 700 mg/ Syringe 14 mls @ 7 mls/min IV NOW ONE; Protocol Stop: 11/18/24 11:53 Last Admin: 11/18/24 12:16 Dose: 7 mls/min Documented By: MARCUS Cefepime HCl (Maxipime 2000mg) 2,000 mg in 20 mls @ 5 mls/min IV NOW STA Stop: 11/18/24 14:35 Last Admin: 11/18/24 15:02 Dose: 5 mls/min Documented By: ALEX Clindamycin Phosphate (Cleocin/D5w) 900 mg in 50 mls @ 100 mls/hr IV NOW STA Stop: 11/18/24 15:02 Last Infusion: 11/18/24 15:54 Dose: Infused Documented By: Admin: 11/18/24 15:24 Dose: 100 mls/hr Documented By: ALEX Sodium Chloride (Nss) 1,000 mls @ 999 mls/hr IV .Q1H1M ONE Stop: 11/18/24 17:23 Last Admin: 11/18/24 16:32 Dose: 999 mls/hr Documented By: ALEX Ondansetron HCl (Ondansetron Inj 2 Mg/Ml 2 Ml Vial) 4 mg IV NOW STA Stop: 11/18/24 08:27 Last Admin: 11/18/24 08:58 Dose: 4 mg Documented By: MARIE Imaging Data Radiologist's Impression: Foot X-Ray 11/18/24 10:07 XR foot RT min 3V routine CLINICAL HISTORY: foot wound COMPARISON: CT scan dated 03/14/2024. FINDINGS: There is evidence for interval surgery. There is an intramedullary tibial sunny extending through the talus and calcaneus. There is a talo calcaneus cannulated screw which extends proximally into a bony fragment anterior to the distal tibia. There is a second cannulated calcaneal screw. There is also a small screw in the region of the cuboid. There is diffuse soft tissue edema. Small amounts of gas are suspected within the soft tissues both anteriorly and posteriorly. There are suspected erosive changes involving the plantar aspect of one of the cuneiforms or cuboid.. IMPRESSION: 1. Interval surgery with extensive hardware 2. Nonspecific air within the soft tissues. Infection cannot be excluded. ACT 112: Negative or not required by law. Electronically signed by: John Terry M.D. 11/18/2024 10:[address] 11/18/24 12:16 CT foot RT wo con CLINICAL HISTORY: "gangrene" on X-ray, r/o abscess or collection COMPARISON STUDY: X-ray earlier today. And CT of 03/14/2024. FINDINGS: There is an interval sunny extending from the tibial shaft to the calcaneus. The retention screws at the distal tibia remain in good position. The screw from a posterior calcaneal approach is broken and does not pass through the sunny. There is a screw fragment anterior to the distal aspect of the sunny and inferior to the distal calcaneus. The distal retention screw from a lateral approach is partially withdrawn and angulated in relation to the sunny. There is lucency adjacent to the sunny and the screws consistent with hardware loosening. The superiorly angulated calcaneal screw passes through the talus and out the anterior lateral cortex. There is mild lucency adjacent to the distal aspect of this screw consistent with loosening. The trimalleolar fracture has stable alignment with persistent fracture lucencies. There is motion artifact limiting the exam, but no new fracture seen. There is soft tissue gas adjacent to the distal tibia and fibula and in the soft tissues of the hindfoot and midfoot. There is a collection of gas and mixed density fluid lateral to the tibia measuring approximately 20 cm craniocaudad by 3 cm AP by 2.5 cm transverse. IMPRESSION: 1. Findings consistent with hardware loosening. 2. Stable alignment at the trimalleolar fracture with no significant osseous healing seen. 3. Soft tissue gas at the midfoot and hindfoot. 4. Elongated collection of heterogeneous fluid and gas lateral to the fibula. Differential diagnosis includes abscess and hematoma. 5. Otherwise as described. ACT 112: Negative or not required by law. Electronically signed by: Juan Luis Suarez M.D. 11/18/2024 2:[address] 11/18/24 12:16 CT tib/fib RT wo con CLINICAL HISTORY: r/o gangrene, necrotizing fascitis COMPARISON STUDY: Conventional x-ray the foot dated 11/18/2024 FINDINGS: Helical images were acquired in the transverse plane. Sagittal and coronal reformatted images were acquired. There are postsurgical changes present within the tibia with an intramedullary sunny which extends through the calcaneus. Old screw tracks are visualized within the tibia. There is a healing distal fibular fracture. There is bony lucency surrounding the sunny at the level of the talus calcaneus and distal tibia. This suggests infection or loosening. There is gas present within the soft tissues extending from the ankle to the knee. Air involves multiple muscle groups, and air-fluid levels are present within the lateral and central musculature. The largest collection extends over a craniocaudal distance of 28 cm. The findings are consistent with necrotizing fasciitis and intramuscular abscess formation. IMPRESSION: 1. Postsurgical changes with distal tibial rodding extending into the ankle. There is lucency surrounding the hardware suggestive of infection 2. Soft tissue gas extending from the hindfoot to the knee with intramuscular air-fluid levels. The findings are consistent with a necrotizing fasciitis with intramuscular abscesses. Surgical consultation is recommended. ACT 112: Negative or not required by law. Electronically signed by: John Terry M.D. 11/18/2024 2:17 PM Discharge Plan Visit Data Chief Complaint: Foot Injury/Pain Stated Complaint: FOOT PAIN ED Provider: Nica Frazier ED Midlevel Provider: Brittany Graham Discharge Problem: Open wound of foot, Diabetic foot infection, Acute hyperkalemia Patient Disposition: Admitted As Inpatient Condition: Critical Discharge Instructions Interventions: ED Discharge Assessment Last Done: 11/18/24 16:31 Discharge Problem: Open wound of foot Qualifiers: Encounter type: initial encounter Laterality: right Qualified Code(s): S91.301A - Unspecified open wound, right foot, initial encounter
--- NOTE | 2024-11-18 10:43 | XRay Report ---
XR foot RT min 3V routine CLINICAL HISTORY: foot wound COMPARISON: CT scan dated 03/14/2024. FINDINGS: There is evidence for interval surgery. There is an intramedullary tibial sunny extending thr ough the talus and calcaneus. There is a talo calcaneus cannulated screw which extends proximally int o a bony fragment anterior to the distal tibia. There is a second cannulated calcaneal screw. There i s also a small screw in the region of the cuboid. There is diffuse soft tissue edema. Small amounts o f gas are suspected within the soft tissues both anteriorly and posteriorly. There are suspected eros wong changes involving the plantar aspect of one of the cuneiforms or cuboid.. IMPRESSION: 1. Interval surgery with extensive hardware 2. Nonspecific air within the soft tissues. Infection cannot be excluded. ACT 112: Negative or not required by law. Electronically signed by: John Terry M.D. 11/18/2024 10:41 AM
[2024-11-18] MEDS: PIPERACILLIN/TAZOBACTAM 4.5 GM/100 ML BAG IV ONE (12:06)
[2024-11-18] MEDS: DAPTOmycin 700 MG in SYRINGE 0 ML IV ONE (12:16)
--- NOTE | 2024-11-18 12:49 | Podiatry Consultation ---
Date of Consultation November 18, 2024 Assessment & Plan Plan X-ray results reviewed. CT scan of the right foot and ankle pending History of Present Illness Reason for Consultation: Right heel wound Allergies Allergy/AdvReac Type Severity Reaction Status Date / Time No Known Allergies Allergy Verified 10/07/24 08:21 Home Medications Medication Instructions Recorded Confirmed Type lancets (Accu-Chek Fastclix Lancet 08/23/20 09/10/24 History Drum) FreeStyle Remigio 2 [place] (flash #1 ea 01/24/21 10/07/24 Rx glucose scanning reader) FreeStyle Remigio 2 Sensor (flash #7 ea 01/24/21 10/07/24 Rx glucose sensor) cyanocobalamin (vitamin B-12) 1,000 mcg PO QAM 12/26/23 11/18/24 History 1,000 mcg capsule atorvastatin 10 mg tablet (Lipitor) 10 mg PO HS #90 tabs 02/24/24 11/18/24 Rx duloxetine 20 mg capsule,delayed 20 mg PO BID #180 caps 02/24/24 11/18/24 Rx release (Cymbalta) empagliflozin 25 mg tablet 25 mg PO QAM #90 tabs 02/24/24 11/18/24 Rx (Jardiance) pen needle, diabetic 31 gauge x #400 ea 02/24/24 10/07/24 Rx 3/16" (BD Ultra-Fine Mini Pen Needle) cholecalciferol (vitamin D3) 25 25 mcg PO QAM 03/01/24 11/18/24 History mcg (1,000 unit) tablet (Vitamin D3) acetaminophen 650 mg 650 mg PO Q6H PRN Pain 05/20/24 11/18/24 History tablet,extended release (Tylenol 8 Hour) Saccharomyces boulardii 250 mg 250 mg PO BID #60 caps 05/25/24 11/18/24 Rx capsule (Florastor) blood sugar diagnostic (OneTouch #100 ea 05/25/24 10/07/24 Rx Verio test strips) blood-glucose meter (OneTouch #1 ea 05/25/24 10/07/24 Rx Verio Flex Meter) pantoprazole 40 mg tablet,delayed 40 mg PO QAM #90 tabs 07/26/24 11/18/24 Rx release metformin 500 mg tablet 500 mg PO BID 90 days #180 tabs 09/21/24 11/18/24 Rx aspirin 81 mg tablet,delayed 81 mg PO QAM 09/27/24 11/18/24 History release furosemide 20 mg tablet (Lasix) 20 mg PO QAM 09/27/24 11/18/24 History insulin aspart U-100 100 unit/mL 16 unit (0.16 mL) subcut BID #30 mL 09/27/24 11/18/24 Rx (3 mL) subcutaneous pen (Novolog FlexPen U-100 Insulin aspart) insulin glargine 100 unit/mL (3 18 unit subcut QAM 09/27/24 11/18/24 History mL) subcutaneous pen (Basaglar KwikPen U-100 Insulin) ketoconazole 2 % topical cream 1 applic topical DAILY PRN Skin 09/27/24 11/18/24 History Irritation lidocaine 5 % topical patch 1 patch topical UD PRN Pain 09/27/24 11/18/24 History metoprolol succinate 25 mg 25 mg PO QAM 09/27/24 11/18/24 History tablet,extended release 24 hr gabapentin 100 mg capsule 200 mg (2 x 100 mg) PO DAILY 90 10/20/24 11/18/24 Rx days #180 caps apixaban 5 mg tablet (Eliquis) 5 mg PO BID #60 tabs 10/22/24 11/18/24 Rx fluoxetine 10 mg capsule 0 mg PO DAILY 11/18/24 11/18/24 History Patient History Medical History History of peripheral arterial disease Gait instability hx WYNN (dyspnea on exertion) hx Hx of diabetic foot ulcer "none currently" per and pt. Chronic venous insufficiency Cardiopulmonary arrest with successful resuscitation - 11/06/2021, [facility]>"in to have a PICC line placed for abx tx, flatlined" - Etiology of arrest seems unclear- seems that this was a PEA arrest per 11/06/21 cardio note Chronic constipation Slow to wake up after anesthesia 03/2024 foot surgery, "told they might have given him a little too much" Diabetes mellitus, type 2 well-controlled per pt and Hx of psoriasis Pericardial effusion hx, 07/2024, resolved Hx of pancreatitis 07/2024, found to be from [facility], no longer taking History of hypertension Hx of gastroesophageal reflux (GERD) Dyslipidemia Hx of diabetic neuropathy History of depression Complex sleep apnea syndrome not compliant with CPAP Hx of chronic kidney disease f/u dr. kaplan, [facility] Hx of coronary artery disease History of BPH w/LUTS Hx MRSA infection pt and deny History of colon polyps Surgical History History of ankle surgery early 03/2024, right ankle-application external fixator for fracture of ankle late 03/2024, removal ex-fix, application of external splint H/O kyphoplasty (2022) following L1 burst fracture Status post amputation of toe of left foot 2nd toe lt History of cardiac cath following an unexplained cardiac arrest>per medical record>11/05/21, [facility], no stents; f/u [facility] cardio yearly Status post amputation of left great toe History of incision and drainage Hx of I&D of mendel-rectal abscess History of cataract surgery bilt History of cholecystectomy History of tooth extraction wisdom teeth History of colonoscopy Colonoscopy 01/21/[address] Garg. History of adenoidectomy History of tonsillectomy Status post uvulopalatopharyngoplasty S/P foot surgery, left partial amputation w/3 remaining toes on left foot removed Family History Mother Family history of diabetes mellitus Father History of alcoholism History of liver cancer Sister Cancer Denies family history of Ovarian cancer Prostate cancer Crohn's disease Breast cancer Colorectal cancer Social History Smoking Status: Never smoker Tobacco Type: Declines Age Started Using Tobacco: 18; Age Quit Using Tobacco: 48; packs per day: 1.5; Second Hand Exposure: Yes (hx); Do You Dip or Chew Tobacco: No; Hx Alcohol Use: Yes Alcohol type: beer Alcohol Intake Frequency: Monthly or Less Hx Substance Use: No Preferred Language: Togolese Communication Ability: Effective Visual Impairment: No Limitations Hearing Ability: Normal 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 Feels Safe at Home: Yes Childhood Exposure to Second-Hand Smoke: Yes Diet: regular Diet Comment: "tries to feed me right, but sometimes it doesn't always happen" caffeine: Yes during the past year weight has: decreased > 10 lbs Physical Activity Frequency: Does not Exercise Seatbelt Use: never Do you think of yourself as: straight/heterosexual Gender Identity: Male Assistive Devices: None Results & Data Vital Signs (Past 12 Hours) Vital Signs Temp Pulse Pulse Resp BP BP Pulse Ox 11/18/24 12:16 96 H 23 186/77 H 92 11/18/24 10:15 79 18 158/87 H 94 11/18/24 08:07 83 11/18/24 08:01 37 C 79 20 170/73 H 96 11/18/24 07:30 37.0 C 81 22 134/76 96 O2 Del Method 11/18/24 12:16 Room Air 11/18/24 10:15 Room Air 11/18/24 08:07 11/18/24 08:01 Room Air 11/18/24 07:30 Room Air Laboratory Results WBC 10.61 Hemoglobin 9.5 Hematocrit 30.4 ESR - pending CRP - pending Procalcitonin-pending A1c 6.0 06/19/2024 Diagnostic Findings XR foot RT min 3V routine CLINICAL HISTORY: foot wound COMPARISON: CT scan dated 03/14/2024. FINDINGS: There is evidence for interval surgery. There is an intramedullary tibial sunny extending through the talus and calcaneus. There is a talo calcaneus cannulated screw which extends proximally into a bony fragment anterior to the distal tibia. There is a second cannulated calcaneal screw. There is also a small screw in the region of the cuboid. There is diffuse soft tissue edema. Small amounts of gas are suspected within the soft tissues both anteriorly and posteriorly. There are suspected erosive changes involving the plantar aspect of one of the cuneiforms or cuboid.. IMPRESSION: 1. Interval surgery with extensive hardware 2. Nonspecific air within the soft tissues. Infection cannot be excluded. PG Care Time/CCT Total # of Minutes Spent Total Time Spent with Patient: Total time spent is greater than 50% in coordination of care (as documented) at patient's floor/unit and/or counseling patient: Coding Level of Care Code 03929 INT INP/OBS CARE
--- NOTE | 2024-11-18 13:51 | History & Physical Report ---
Date of Service November 18, 2024 Assessment & Plan (1) Diabetic foot ulcer: (2) CKD stage 3 due to type 2 diabetes mellitus: (3) Right foot infection: Plan Mr. Crescencio Alvarado is a 68 yo male with PMH of CAD with LAD stenosis, cardiac arrest, insulin dependent diabetes, CKD, open fracture dislocation of RIGHT, ankle s/p TTC fusion, right tibiotalar joint arthrodesis, right subtalaar joint arthrodesis 03/25) by Dr. Dieter Shin (ortho), acute left foot osteomyelitis, pancreatitis related to mounjao. in november 2021, has cardiac arrest, and coronary angioigraphy found heavily calcified lesion of 70-80% stenosis. on 11/18/2024, he noticed one day history of right foot pain, bleeding, and chill, he skipped all this morning med and came [facility] for evaluation, found to has right foot cellulitis and X-ray noticed air collection within the foot. we ordered CT scan RIGHT foot and RIGHT leg to r/o gangrene started on cefepime and daptomycin. podiatry, and orthopedic (Dr. Shin) consulted. 1. acute right foot cellulitis. ?? gangrene 2. hx of right ankle fracture s/p TTC fusion, right tibiotalar joint arthrodesis, right subtalar joint arthrodesis (03/25) 3. insulin dependent diabetes 4. CKD 5. hx of CAD, hx of cardiac arrest (november 2021) 6. left foot osteomyelitis s/p amputation 7. hypertension 1. acute right foot cellulitis, X-ray show gas collection f/u on CT foot and CT leg cefepime, daptomycin. may need foot MRI to r/o hardware infection 2. insulin dependent diabetes home med of lantus 18 units and he's on lsirpo 16 BID home med of metformin 500 BID, prevoiusly, he was pancreatitis related to Mounjaor used 3. hypertension, metoprolol succinate 25mg daily he's also on jardiance 25mg 4. mood disorder, he's on cymablta 20mg BID, 5. CHF, he's on lasix 20mg daily, CAD, noted 70-80% blockage in 2021 increase his lipitor from 10mg to 40mg 6. BPH-flomax 0.4mg 7. GERD-PPI 40mg 8. DVT prophylaxis, heparin 5000mg q8 hours 10. insomnia, melatonin 10mg qHS History of Present Illness Chief Complaint: right foot pain for 24 hours ruling out hardware infection and gangrene Primary Care Provider: Dora Sales MD Mr. Crescencio Alvarado is a 68 yo male with PMH of insulin dependent diabetes, CKD, open fracture dislocation of RIGHT, ankle s/p surgery (TTC fusion, right tibiotalar joint arthrodesis, right subtalaar joint arthrodesis 03/25) by Dr. Dieter Shin (orthopedic), acute left foot osteomyelitis, hx of cardiac arrest, CAD with LAD stenosis, pancreatitis related to mounjao. in november 2021, has cardiac arrest, and coronary angioigraphy found heavily calcified lesion of 70-80% stenosis. He was hospitalized in july 2024 for pancreatitis, pericardial effusion and was recommended repeat MRCP he has colonoscopy in 2024, noted multiple adenoma and needed repeat colonscopy in 5 years. on 11/18/2024, he's present to hospital with 24 hours of right foot pain,chill, and nausea and vomiting his foot x-ray concern for gas within the soft tissue, he has having significant chill and shaking on interview. also been noticing bloody discharge from his foot. his was started on cefepime and daptomcyin, podiatry (Dr. Romeo) and orthopedic (Dr. Dieter shin) was notified. he denied any chest pain, no shortness of breath no headache, no dizziness he's has not taken any of his morning med given his indigestion. and nausea and vomiting he is full code he's designated his as decision maker Allergies Allergy/AdvReac Type Severity Reaction Status Date / Time No Known Allergies Allergy Verified 10/07/24 08:21 Home Medications Medication Instructions Recorded Confirmed Type lancets (Accu-Chek Fastclix Lancet 08/23/20 09/10/24 History Drum) FreeStyle Remigio 2 [place] (flash #1 ea 01/24/21 10/07/24 Rx glucose scanning reader) FreeStyle Remigio 2 Sensor (flash #7 ea 01/24/21 10/07/24 Rx glucose sensor) cyanocobalamin (vitamin B-12) 1,000 mcg PO QAM 12/26/23 11/18/24 History 1,000 mcg capsule atorvastatin 10 mg tablet (Lipitor) 10 mg PO HS #90 tabs 02/24/24 11/18/24 Rx duloxetine 20 mg capsule,delayed 20 mg PO BID #180 caps 02/24/24 11/18/24 Rx release (Cymbalta) empagliflozin 25 mg tablet 25 mg PO QAM #90 tabs 02/24/24 11/18/24 Rx (Jardiance) pen needle, diabetic 31 gauge x #400 ea 02/24/24 10/07/24 Rx 3/16" (BD Ultra-Fine Mini Pen Needle) cholecalciferol (vitamin D3) 25 25 mcg PO QAM 03/01/24 11/18/24 History mcg (1,000 unit) tablet (Vitamin D3) acetaminophen 650 mg 650 mg PO Q6H PRN Pain 05/20/24 11/18/24 History tablet,extended release (Tylenol 8 Hour) Saccharomyces boulardii 250 mg 250 mg PO BID #60 caps 05/25/24 11/18/24 Rx capsule (Florastor) blood sugar diagnostic (OneTouch #100 ea 05/25/24 10/07/24 Rx Verio test strips) blood-glucose meter (OneTouch #1 ea 05/25/24 10/07/24 Rx Verio Flex Meter) pantoprazole 40 mg tablet,delayed 40 mg PO QAM #90 tabs 07/26/24 11/18/24 Rx release aspirin 81 mg tablet,delayed 81 mg PO QAM 09/27/24 11/18/24 History release furosemide 20 mg tablet (Lasix) 20 mg PO QAM 09/27/24 11/18/24 History insulin aspart U-100 100 unit/mL 16 unit (0.16 mL) subcut BID #30 mL 09/27/24 11/18/24 Rx (3 mL) subcutaneous pen (Novolog FlexPen U-100 Insulin aspart) insulin glargine 100 unit/mL (3 18 unit subcut QAM 09/27/24 11/18/24 History mL) subcutaneous pen (Basaglar KwikPen U-100 Insulin) ketoconazole 2 % topical cream 1 applic topical DAILY PRN Skin 09/27/24 11/18/24 History Irritation lidocaine 5 % topical patch 1 patch topical UD PRN Pain 09/27/24 11/18/24 Histo ry metoprolol succinate 25 mg 25 mg PO QAM 09/27/24 11/18/24 History tablet,extended release 24 hr gabapentin 100 mg capsule 200 mg (2 x 100 mg) PO DAILY 90 10/20/24 11/18/24 Rx days #180 caps apixaban 5 mg tablet (Eliquis) 5 mg PO BID #60 tabs 10/22/24 11/18/24 Rx metformin 500 mg tablet 0 mg PO BID 11/18/24 11/18/24 History tamsulosin 0.4 mg capsule 0.4 mg PO PM 11/18/24 11/18/24 History Past Med/Surg History Problem List (Updated 11/18/24 @ 13:51 by Bharti Apodaca DO) Right foot infection History of colon polyps Tinea pedis of both feet Loss of protective sensation of skin of deformed foot Gait instability Status post transmetatarsal amputation of left foot Abdominal pain CKD (chronic kidney disease) (Acute) Pancreatitis (Acute) Pericardial effusion Syncope (Acute) Chest pain (Acute) Tachycardia Morbid obesity with BMI of 50.0-59.9, adult Chronic ulcer of left foot with necrosis of bone Diabetic neuropathy Open fracture dislocation of right ankle WYNN (dyspnea on exertion) Venous ulcer of right leg Diabetic foot ulcer (Acute) Urinary urgency Diabetic nephropathy associated with type 2 diabetes mellitus CKD stage 3 due to type 2 diabetes mellitus Diabetes type 2, controlled Class 3 obesity Status post partial amputation of foot Complex sleep apnea syndrome Nocturnal hypoxemia CAD (coronary artery disease) (Chronic) Chronic, heavily calcified severe mid LAD disease (70 to 80% by IVUS) per 11/05/21 cardiac cath- medically managed Chronic constipation Cardiopulmonary arrest with successful resuscitation (Chronic) - 11/06/2021, [facility]>"in to have a PICC line placed for abx tx, flatlined" - Etiology of arrest seems unclear- seems that this was a PEA arrest per 11/06/21 cardio note BPH loc w urin obs/LUTS (Chronic Unknown) PAD (peripheral artery disease) (Chronic) CKD (chronic kidney disease) (Chronic) Chronic venous insufficiency Diabetes mellitus with diabetic polyneuropathy (Chronic) Nonproliferative diabetic retinopathy (Chronic) Depression (Chronic) Disc degeneration, lumbar (Chronic) Dyslipidemia (Chronic) Hypertension (Chronic) Psoriasis (Chronic) GERD (gastroesophageal reflux disease) (Chronic) Medical History History of peripheral arterial disease Gait instability hx WYNN (dyspnea on exertion) hx Hx of diabetic foot ulcer "none currently" per and pt. Chronic venous insufficiency Cardiopulmonary arrest with successful resuscitation - 11/06/2021, [facility]>"in to have a PICC line placed for abx tx, flatlined" - Etiology of arrest seems unclear- seems that this was a PEA arrest per 11/06/21 cardio note Chronic constipation Slow to wake up after anesthesia 03/2024 foot surgery, "told they might have given him a little too much" Diabetes mellitus, type 2 well-controlled per pt and Hx of psoriasis Pericardial effusion hx, 07/2024, resolved Hx of pancreatitis 07/2024, found to be from [facility], no longer taking History of hypertension Hx of gastroesophageal reflux (GERD) Dyslipidemia Hx of diabetic neuropathy History of depression Complex sleep apnea syndrome not compliant with CPAP Hx of chronic kidney disease f/u dr. kaplan, [facility] Hx of coronary artery disease History of BPH w/LUTS Hx MRSA infection pt and deny History of colon polyps Surgical History History of ankle surgery early 03/2024, right ankle-application external fixator for fracture of ankle late 03/2024, removal ex-fix, application of external splint H/O kyphoplasty (2022) following L1 burst fracture Status post amputation of toe of left foot 2nd toe lt History of cardiac cath following an unexplained cardiac arrest>per medical record>11/05/21, [facility], no stents; f/u [facility] cardio yearly Status post amputation of left great toe History of incision and drainage Hx of I&D of mendel-rectal abscess History of cataract surgery bilt History of cholecystectomy History of tooth extraction wisdom teeth History of colonoscopy Colonoscopy 01/21/[address] Garg. History of adenoidectomy History of tonsillectomy Status post uvulopalatopharyngoplasty S/P foot surgery, left partial amputation w/3 remaining toes on left foot removed Family History Mother Family history of diabetes mellitus Father History of alcoholism History of liver cancer Sister Cancer Denies family history of Ovarian cancer Prostate cancer Crohn's disease Breast cancer Colorectal cancer Social History Smoking Status: Never smoker Tobacco Type: Declines Age Started Using Tobacco: 18; Age Quit Using Tobacco: 48; packs per day: 1.5; Second Hand Exposure: Yes (hx); Do You Dip or Chew Tobacco: No; Hx Alcohol Use: Yes Alcohol type: beer Alcohol Intake Frequency: Monthly or Less Hx Substance Use: No Preferred Language: Syrian Communication Ability: Effective Visual Impairment: No Limitations Hearing Ability: Normal Probation Agent Required: No Beliefs That Will Affect Care: None marital status: Current Living Situation: Spouse Current Living Situation Comment: Lives with and dog current occupational status: employed 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 Feels Safe at Home: Yes Childhood Exposure to Second-Hand Smoke: Yes Diet: regular Diet Comment: "tries to feed me right, but sometimes it doesn't always happen" caffeine: Yes during the past year weight has: decreased > 10 lbs Physical Activity Frequency: Does not Exercise Seatbelt Use: never Do you think of yourself as: straight/heterosexual Gender Identity: Male Assistive Devices: None Review of Systems Review of Systems: Constitutional: + for chill; ENT/Mouth: No Hearing Changes, No Ear Pain, No Nasal Congestion Cardiovascular: No Chest Pain, No SOB, No PND, No Dyspnea on Exertion, No Orthopnea, No Claudication, No Edema, No Palpitations Respiratory: No Cough, No Sputum, No Wheezing, No Smoke Exposure, No Dyspnea Gastrointestinal: + for nausea sensation; + for hx of pancreatitis related to Mounjaro o Diarrhea, No Constipation, No Pain, No Heartburn, Musculoskeletal: positive for right foot discomfort; + for bloody discharge from right foot + for hx of left foot amputation Neuro: + for neuropathy Psych: No Anxiety/Panic, No Depression, No Insomnia, No Personality Changes, No Delusions, No Rumination, No SI/HI/AH/VH, No Social Issues, No Memory Changes, No Violence/Abuse Hx., No Eating Concerns Endocrine: No Polyuria, No Polydipsia, No Temperature Intolerance Physical Exam Physical Exam: VITALS: Reviewed. WEIGHT/BMI reviewed. GEN: non-toxic appearing; obese PSYCH: Good Judgment. AOx3. Normal memory, mood, and affect. HEENT -Head: NC/AT; NECK: Supple, with no masses. CV: RRR, no m/r/g. LUNGS: CTAB, no w/r/c. ABD: Soft, NT/ND, NBS, no masses or organomegaly. EXT: right foot covered by dressing; erythema around the heel; no crepitus noted. decrease sensation to soft touch; left foot has toes amputated NEURO: AAox3 diffuse tremor Results & Data Results & Data Vital Signs (Past 12 Hours) Vital Signs Temp Pulse Pulse Resp BP BP Pulse Ox 11/18/24 12:16 96 H 23 186/77 H 92 11/18/24 10:15 79 18 158/87 H 94 11/18/24 08:07 83 11/18/24 08:01 37 C 79 20 170/73 H 96 11/18/24 07:30 37.0 C 81 22 134/76 96 O2 Del Method 11/18/24 12:16 Room Air 11/18/24 10:15 Room Air 11/18/24 08:07 11/18/24 08:01 Room Air 11/18/24 07:30 Room Air Laboratory Results Laboratory Results - last 72 hr 11/18/24 11/18/24 11/18/24 07:54 07:55 12:12 WBC 10.61 RBC 3.77 L Hgb 9.5 L Hct 30.4 L MCV 80.6 MCH 25.2 MCHC 31.3 L RDW Std Deviation 40.4 RDW Coeff of Mejia 14.0 Plt Count 231 MPV 8.4 L Immature Gran % (Auto) 0.8 Neut % (Auto) 83.0 Lymph % (Auto) 6.1 [place] % (Auto) 9.3 Eos % (Auto) 0.4 Baso % (Auto) 0.4 Neut # (Auto) 8.80 H Lymph # (Auto) 0.65 L [place] # (Auto) 0.99 H Eos # (Auto) 0.04 Baso # (Auto) 0.04 Immature Gran # (Auto) 0.09 Sodium 133 L Potassium 5.3 H Chloride 100 Carbon Dioxide 25 Anion Gap 8 BUN 42 H Creatinine 1.95 H Est Cr Clr Drug Dosing Not Reportable eGFR 36.78 BUN/Creatinine Ratio 21.5 H Glucose 269 H POC Glucose 293 H Lactate 2.0 Calcium 8.8 Total Bilirubin 0.4 AST 11 L ALT 5 L Alkaline Phosphatase 235 H Total Protein 8.0 Albumin 3.3 L Globulin 4.7 H Albumin/Globulin Ratio 0.7 L Procalcitonin 1.60 H Diagnostic Findings Foot X-Ray 11/18/24 10:07 XR foot RT min 3V routine CLINICAL HISTORY: foot wound COMPARISON: CT scan dated 03/14/2024. FINDINGS: There is evidence for interval surgery. There is an intramedullary tibial sunny extending through the talus and calcaneus. There is a talo calcaneus cannulated screw which extends proximally into a bony fragment anterior to the distal tibia. There is a second cannulated calcaneal screw. There is also a small screw in the region of the cuboid. There is diffuse soft tissue edema. Small amounts of gas are suspected within the soft tissues both anteriorly and posteriorly. There are suspected erosive changes involving the plantar aspect of one of the cuneiforms or cuboid.. IMPRESSION: 1. Interval surgery with extensive hardware 2. Nonspecific air within the soft tissues. Infection cannot be excluded. ACT 112: Negative or not required by law. Electronically signed by: John Terry M.D. 11/18/2024 10:41 AM Medications Administered Current Inpatient Medications Cefepime HCl (Maxipime 2000mg) 1,000 mg in 10 mls @ 5 mls/min IV Q12H [facility]; Protocol Stop: 12/30/24 12:14 PG Care Time/CCT Total # of Minutes Spent Total Time Spent with Patient: Total time spent is greater than 50% in coordination of care (as documented) at patient's floor/unit and/or counseling patient: Coding Level of Care Code 88349 INT INP/OBS CARE 2/55MIN Diagnoses Diabetic ulcer of left midfoot associated with type 2 diabetes mellitus, with necrosis of bone E11.621; L97.424 Diabetic foot ulcer location: midfoot Diabetes mellitus type: type 2 Laterality: left Non-pressure ulcer stage: with necrosis of bone CKD stage 3 due to type 2 diabetes mellitus E11.22; N18.30 Right foot infection L08.9 Time Spent (min) 55 (1) Diabetic foot ulcer Diabetic foot ulcer location: midfoot Diabetes mellitus type: type 2 Laterality: left Non-pressure ulcer stage: with necrosis of bone Qualified Code(s): E11.621 - Type 2 diabetes mellitus with foot ulcer; L97.424 - Non- pressure chronic ulcer of left heel and midfoot with necrosis of bone
--- NOTE | 2024-11-18 14:18 | CT Scan Report ---
CT tib/fib RT wo con CLINICAL HISTORY: r/o gangrene, necrotizing fascitis COMPARISON STUDY: Conventional x-ray the foot dated 11/18/2024 FINDINGS: Helical images were acquired in the transverse plane. Sagittal and coronal reformatted imag es were acquired. There are postsurgical changes present within the tibia with an intramedullary sunny which extends thro ugh the calcaneus. Old screw tracks are visualized within the tibia. There is a healing distal fibula r fracture. There is bony lucency surrounding the sunny at the level of the talus calcaneus and distal tibia. This suggests infection or loosening. There is gas present within the soft tissues extending from the ankle to the knee. Air involves multi ple muscle groups, and air-fluid levels are present within the lateral and central musculature. The l argest collection extends over a craniocaudal distance of 28 cm. The findings are consistent with nec rotizing fasciitis and intramuscular abscess formation. IMPRESSION: 1. Postsurgical changes with distal tibial rodding extending into the ankle. There is lucency surroun ding the hardware suggestive of infection 2. Soft tissue gas extending from the hindfoot to the knee with intramuscular air-fluid levels. The f indings are consistent with a necrotizing fasciitis with intramuscular abscesses. Surgical consultati on is recommended. ACT 112: Negative or not required by law. Electronically signed by: John Terry M.D. 11/18/2024 2:17 PM
--- NOTE | 2024-11-18 14:23 | CT Scan Report ---
CT foot RT wo con CLINICAL HISTORY: "gangrene" on X-ray, r/o abscess or collection COMPARISON STUDY: X-ray earlier today. And CT of 03/14/2024. FINDINGS: There is an interval sunny extending from the tibial shaft to the calcaneus. The retention sc rews at the distal tibia remain in good position. The screw from a posterior calcaneal approach is br oken and does not pass through the sunny. There is a screw fragment anterior to the distal aspect of th e sunny and inferior to the distal calcaneus. The distal retention screw from a lateral approach is par tially withdrawn and angulated in relation to the sunny. There is lucency adjacent to the sunny and the s crews consistent with hardware loosening. The superiorly angulated calcaneal screw passes through the talus and out the anterior lateral cortex. There is mild lucency adjacent to the distal aspect of th is screw consistent with loosening. The trimalleolar fracture has stable alignment with persistent fr acture lucencies. There is motion artifact limiting the exam, but no new fracture seen. There is soft tissue gas adjacent to the distal tibia and fibula and in the soft tissues of the hindf oot and midfoot. There is a collection of gas and mixed density fluid lateral to the tibia measuring approximately 20 cm craniocaudad by 3 cm AP by 2.5 cm transverse. IMPRESSION: 1. Findings consistent with hardware loosening. 2. Stable alignment at the trimalleolar fracture with no significant osseous healing seen. 3. Soft tissue gas at the midfoot and hindfoot. 4. Elongated collection of heterogeneous fluid and gas lateral to the fibula. Differential diagnosis includes abscess and hematoma. 5. Otherwise as described. ACT 112: Negative or not required by law. Electronically signed by: Juan Luis Suarez M.D. 11/18/2024 2:21 PM
--- NOTE | 2024-11-18 14:53 | Communication Note ---
Date of Service: November 18, 2024 I communicated at Length with Dr. Dieter Shin; we discussed the finding of necrotizing fascitis. Dr. Dieter Shin requested that patient to be transfer to another medical center for debridement. called [facility] [place] transfer line, spoke with Dr. Tomlinson, they are declining to accept the patient called Dr. Shin again on multiple occasions but went to voicemail.
[2024-11-18 15:00] VITALS: PULSE 84
[2024-11-18] MEDS: CEFEPIME 2000MG 2,000 MG/20 ML SYR IV STA (15:02)
[2024-11-18] MEDS: CLINDAMYCIN/D5W 900 MG/50 ML PREMIX BAG IV STA (15:24)
--- NOTE | 2024-11-18 15:26 | Communication Note ---
Date of Service: November 18, 2024 Dr. Shin graciously returned my call; He's emphasized that patient required higher level of care at tertiary care center. we discussed that he need daily wound care post-op and on site Infectious disease specialist in pre-op and post-op period we discussed with [facility] that patient need a higher level of care to perform limb preserving surgery
[2024-11-18] MEDS ORDERED: PIPERACILLIN/TAZOBACTAM 4.5 GM/100 ML BAG IV SCH (16:15)
[2024-11-18 16:21] VITALS: RESP 20; O2SAT 93
[2024-11-18 16:26] VITALS: BP 137/58
[2024-11-18] MEDS ORDERED: SODIUM CHLORIDE 0.9% 1,000 ML IV SCH (16:30)
[2024-11-18] MEDS ORDERED: KETOCONAZOLE 2% CR 15 GM TUBE EXT PRN (16:31)
[2024-11-18] MEDS ORDERED: METOPROLOL SUCC 25MG EXT REL TAB PO SCH (16:31)
[2024-11-18] MEDS ORDERED: LIDOCAINE 5% 1 PATCH TD PRN (16:31)
[2024-11-18] MEDS ORDERED: BLOOD GLUCOSE METER SCH (16:31)
[2024-11-18] MEDS ORDERED: [UNRECOGNIZED DRUG - OTHER] SCH (16:31)
[2024-11-18] MEDS ORDERED: LANCETS SCH (16:31)
[2024-11-18] MEDS ORDERED: NON-FORMULARY MEDICATION (Blood Sugar Diagnostic [Onetouch Verio Test Strips] strip) SCH (16:31)
[2024-11-18] MEDS: SODIUM CHLORIDE 0.9% 1,000 ML IV ONE (16:32)
--- NOTE | 2024-11-18 16:35 | CT Scan Report ---
Clinical history: Rule out necrotizing fasciitis Technique: Axial computed tomography images were obtained of the right hip without intravenous contrast. Sagittal and coronal reconstructions were obtained Findings: No fracture is identified. No subluxation or dislocation is seen. There is moderate severity right hip osteoarthritis. No focal osseous lesion is evident There are scattered small pockets of air adjacent to the right hamstring tendon and hamstring muscles. No definite soft tissue mass or fluid collection is seen. No foreign body is evident Impression: 1. Pockets of air adjacent to the right hamstring tendon and the right hamstring muscles, which could be due to infection with gas-forming organism. 2. No definite abscess, foreign body, or osteomyelitis 3. Right hip osteoarthritis Electronically signed by Roge Ortega 11-18-2024 4:35 PM
[2024-11-18] MEDS ORDERED: ACETAMINOPHEN 325 MG TAB PO PRN (16:39)
--- NOTE | 2024-11-18 16:42 | Discharge Summary ---
Discharge Summary Date of Service November 18, 2024 Principal Dx & Hospital Course #1 = Principal Diagnosis (1) Diabetic foot ulcer: Mr. Crescencio Alvarado is a 68 yo male with PMh of insulin dependent diabetes (lantus 18 units, lispro 16 BID), CAD, cardiac arrest in 2021. hx of left foot osteomyelitis in mar 2024 has open fracture dislocation of the right ankle s/p TTC fusion, right tibiotalar joint arthordesis, right subtalar joint arthrodesis. his coronary angiography found calcified lesion of 70-80% stenosis he's mostly sit in a recliner and live at home with his . on 11/18, , he's noticed one day of right heel pain, right leg pain, chill, nausea sensation. he came to our hospital for evaluation, his CT scan concern for fascitis (soft tissue gas) from hindfoot into the knee. his foot CT w/o contrast show soft tissue gas at the midfoot and hinfoot. and elongated collection of hte fluid and gas lateral to fibuula and hardware loosing. he was started on daptomycin (12:16noon), cefepime 3pm, and clindamcyin (3:24pm) we ordered f/u CT thigh and CT pelvis to ensure the fascitis did not extend patient cases was evaluated by Dr. Shin and recommended transferring to tertiary care center for limb preserving surgery, daily wound care coverage, podiatry. we discussed the imaging finding, discussed the need for higher level of care. patient was accepted by Dr. Darian Ceja at [facility]. they are planning to placed patient at ICU. he's been NPO since arrival to ED at 10am. he did not take his morning insulin, or diuretics, or BP med given his nausea and vomiting around 4pm, he was hypotensive in the 90s. s/p bolus and started on IV fluid 100cc/hours, will continue to hold jardiance, lasix, and metoprolol. his ; Celestina; [phone]; made aware of transfer to [facility] and requested for updated after surgery 1 hours and 30 minutes of critical care time provided (2) CKD stage 3 due to type 2 diabetes mellitus: (3) Right foot infection: Plan Mr. Crescencio Alvarado is a 68 yo male with PMH of CAD with LAD stenosis, cardiac arrest, insulin dependent diabetes, CKD, open fracture dislocation of RIGHT, ankle s/p TTC fusion, right tibiotalar joint arthrodesis, right subtalaar joint arthrodesis 03/25) by Dr. Dieter Shin (ortho), acute left foot osteomyelitis, pancreatitis related to mounjao. in november 2021, has cardiac arrest, and coronary angioigraphy found heavily calcified lesion of 70-80% stenosis. on 11/18/2024, he noticed one day history of right foot pain, bleeding, and chill, he skipped all this morning med and came [facility] for evaluation, found to has right foot cellulitis and X-ray noticed air collection within the foot. we ordered CT scan RIGHT foot and RIGHT leg to r/o gangrene started on cefepime and daptomycin. podiatry, and orthopedic (Dr. Shin) consulted. 1. acute right foot cellulitis. ?? gangrene 2. hx of right ankle fracture s/p TTC fusion, right tibiotalar joint arthrodesis, right subtalar joint arthrodesis (03/25) 3. insulin dependent diabetes 4. CKD 5. hx of CAD, hx of cardiac arrest (november 2021) 6. left foot osteomyelitis s/p amputation 7. hypertension 1. acute right foot cellulitis, X-ray show gas collection f/u on CT foot and CT leg cefepime, daptomycin. may need foot MRI to r/o hardware infection 2. insulin dependent diabetes home med of lantus 18 units and he's on lsirpo 16 BID home med of metformin 500 BID, prevoiusly, he was pancreatitis related to Mounjaor used 3. hypertension, metoprolol succinate 25mg daily he's also on jardiance 25mg 4. mood disorder, he's on cymablta 20mg BID, 5. CHF, he's on lasix 20mg daily, CAD, noted 70-80% blockage in 2021 increase his lipitor from 10mg to 40mg 6. BPH-flomax 0.4mg 7. GERD-PPI 40mg 8. DVT prophylaxis, heparin 5000mg q8 hours 10. insomnia, melatonin 10mg qHS Notes For Next Care Provider f/u on CT thigh and CT pelvis Admission HPI Per Admitting Provider Mr. Crescencio Alvarado is a 68 yo male with PMH of insulin dependent diabetes, CKD, open fracture dislocation of RIGHT, ankle s/p surgery (TTC fusion, right tibiotalar joint arthrodesis, right subtalaar joint arthrodesis 03/25) by Dr. Dieter Shin (orthopedic), acute left foot osteomyelitis, hx of cardiac arrest, CAD with LAD stenosis, pancreatitis related to mounjao. in november 2021, has cardiac arrest, and coronary angioigraphy found heavily calcified lesion of 70-80% stenosis. He was hospitalized in july 2024 for pancreatitis, pericardial effusion and was recommended repeat MRCP he has colonoscopy in 2024, noted multiple adenoma and needed repeat colonscopy in 5 years. on 11/18/2024, he's present to hospital with 24 hours of right foot pain,chill, and nausea and vomiting his foot x-ray concern for gas within the soft tissue, he has having significant chill and shaking on interview. also been noticing bloody discharge from his foot. his was started on cefepime and daptomcyin, podiatry (Dr. Romeo) and orthopedic (Dr. Dieter shin) was notified. he denied any chest pain, no shortness of breath no headache, no dizziness he's has not taken any of his morning med given his indigestion. and nausea and vomiting he is full code he's designated his as decision maker Discharge Exam General: no acute distress HEENT:AT/NC heart: normal s1; s2; RRR lung: on room air; no wheezing neuro: AAox3 abdomen: soft to touch MSK: right leg painful to palpation; + for right heel ulceration. warm to touch; decreased sensation to soft touch left toe amputated psych: calm; cooperative Discharge Plan Discharge Items Patient Disposition: Transfer Acute Care Hospital Reason For Visit: RIGHT FOOT CELLULITIS, ?? GANGRENE. HX OF HARDWARE Discharge Diagnosis: Right foot necrotizing fascitis right leg necrotizing fascitis sepsis hx of right ankle handware placement transferring to [facility] Condition on Discharge: Critical Activity: Per Instructions section Lifting: Wait until after follow-up appointment Non-emergency contact: Primary Care Provider and Surgeon Call non-emergency contact if: your symptoms worsen and your rectal temperature is above 100.4 Follow-up/Referrals: Dora Sales MD [Primary Care Provider] - Diet: Nothing by Mouth Addtl Attending Provider Instructions: following up with surgery following up with wound care follow up with orthopedic Pending Studies at Discharge: Yes Studies:: imaging to monitor for resolution of fascitis Stand-Alone Forms: My [facility] Skilled Items Patient informed of condition?: Yes DNR: No Discharge Level of Care: Other Communicable Disease: No Discharge Prognosis: Deteriorating Lines: Peripheral IV Urinary Catheter: Yes Medications and DC Order Prescriptions: Continued cyanocobalamin (vitamin B-12) 1,000 mcg capsule 1,000 mcg PO QAM (DME) FreeStyle Remigio 2 [facility] See Rx Instructions .Route Qty: 1 0RF Rx Instructions: Use to monitor blood sugars daily (DME) FreeStyle Remigio 2 Sensor Kit See Rx Instructions .Route Qty: 7 3RF Rx Instructions: Change sensor every 14 days duloxetine [Cymbalta] 20 mg capsule,delayed release(DR/EC) 20 mg PO BID Qty: 180 3RF Jardiance 25 mg tablet 25 mg PO QAM Qty: 90 3RF atorvastatin [Lipitor] 10 mg tablet 10 mg PO HS Qty: 90 3RF (DME) pen needle, diabetic [BD Ultra-Fine Mini Pen Needle] 31 gauge x 3/16" needle .ROUTE .MEDSUPPLY Qty: 400 3RF Rx Instructions: use 4 needles daily (DME) blood-glucose meter [OneTouch Verio Flex meter] [facility] See Rx Instructions .ROUTE .MEDSUPPLY Qty: 1 0RF Rx Instructions: use to test blood sugar As directed (DME) OneTouch Verio test strips Strip See Rx Instructions .ROUTE .MEDSUPPLY Qty: 100 3RF Rx Instructions: test blood sugar one time daily pantoprazole 40 mg tablet,delayed release (DR/EC) 40 mg PO QAM Qty: 90 3RF insulin aspart U-100 [Novolog FlexPen U-100 Insulin] 100 unit/mL (3 mL) insulin pen 16 unit subcut BID MDD 32 units Qty: 30 3RF gabapentin 100 mg capsule 200 mg PO DAILY 90 Days Qty: 180 3RF (DME) lancets [Accu-Chek Fastclix Lancet Drum] [facility] See Rx Instructions .ROUTE .MEDSUPPLY Rx Instructions: test blood sugar 1 x daily Saccharomyces boulardii [Florastor] 250 mg capsule 250 mg PO BID Qty: 60 5RF acetaminophen [Tylenol 8 Hour] 650 mg tablet extended release 650 mg PO Q6H PRN (Reason: Pain) cholecalciferol (vitamin D3) [Vitamin D3] 25 mcg (1,000 unit) tablet 25 mcg PO QAM aspirin 81 mg tablet,delayed release (DR/EC) 81 mg PO QAM furosemide [Lasix] 20 mg tablet 20 mg PO QAM metoprolol succinate 25 mg tablet extended release 24 hr 25 mg PO QAM insulin glargine [Basaglar KwikPen U-100 Insulin] 100 unit/mL (3 mL) insulin pen 18 unit subcut QAM lidocaine 5 % adhesive patch,medicated 1 patch topical UD PRN (Reason: Pain) Patient Comments: bought the OTC ones instead due to cole Rx Instructions: leave on most painful area for up to 12 hrs keep off for 12 hours/ usually for day time. ketoconazole 2 % cream 1 applic topical DAILY PRN (Reason: Skin Irritation) tamsulosin 0.4 mg capsule 0.4 mg PO PM Held Eliquis 5 mg tablet 5 mg PO BID Qty: 60 0RF Hold Instructions: Resume on 11/23/24. metformin 500 mg tablet 0 mg PO BID Hold Instructions: Resume on 11/23/24. Patient Comments: 11/18- per spouse, provider called and told her to hold his metformin Admission Data Admit Date/Time: 11/18/24 12:19 Attending Provider: Bharti Apodaca Admit Provider: Bharti Apodaca Primary Care Provider: Dora Sales Other Providers: Dieter Shin; Bharti Apodaca Hospital Stay Data Consultations 11/18/24 14:55 Consult Orthopedic Surgery Stat 11/18/24 15:28 ED Decision to Admit Stat Diagnostic Imagining Performed 11/18/24 12:16 CT foot RT wo con Stat CT leg [CT tib/fib RT wo con] Stat 11/18/24 15:41 CT hip RT wo con Stat 11/18/24 15:48 CT Abdomen and Pelvis [CT abd pelvis wo con] Stat Pending Results Patient Have Any Pending Studies at Discharge: Yes Discharge Instructions Given to Patient (Per Discharging Provider) following up with surgery following up with wound care follow up with orthopedic Total Time Total Time Spent Total Time Spent (In Minutes): 1 hours and 35 minutes Coding Level of Care Code 10978 INP/OBS DISCH >30 MIN Diagnoses Diabetic ulcer of left midfoot associated with type 2 diabetes mellitus, with necrosis of bone E11.621; L97.424 Diabetic foot ulcer location: midfoot Diabetes mellitus type: type 2 Laterality: left Non-pressure ulcer stage: with necrosis of bone CKD stage 3 due to type 2 diabetes mellitus E11.22; N18.30 Right foot infection L08.9 Time Spent (min) 90
--- NOTE | 2024-11-18 16:43 | CT Scan Report ---
Technique: Axial computed tomography images were obtained of the abdomen and pelvis without intravenous contrast. Comparison is made to the prior CT dated 07/11/2024 Findings: The liver is overall of normal size, attenuation, and contour with no sign of cirrhosis or significant fatty infiltration. No definite liver mass lesion is seen on this noncontrast study. The gallbladder has been removed. No bile duct dilatation is noted. The spleen is enlarged measuring 15.5 cm. No focal splenic lesion is evident. The pancreas appears normal with no sign of acute or chronic pancreatitis and no mass lesion noted. The pancreatic duct is of normal caliber. There is an unchanged 2.4 cm low-attenuation left adrenal nodule, consistent with a benign adenoma. The right adrenal gland appears normal No renal or proximal ureteral calculi are seen. There is no hydronephrosis or perinephric stranding. No definite renal mass lesion is identified. The aorta is of normal caliber. There is small subcentimeter retroperitoneal para-aortic lymph nodes No overt abdominal adenopathy is seen. The stomach appears normal. There is no sign of small bowel obstruction. The colon appears unremarkable. The appendix appears normal also. No free intraperitoneal fluid or air is identified. No distal ureteral or bladder calculi are seen. No obvious bladder mass lesion is evident. The iliac arteries are of normal caliber. There are small subcentimeter iliac chain and inguinal lymph nodes bilaterally. No overt pelvic adenopathy is noted. The lungs bases appear clear. There is an unchanged old L1 compression fracture with vertebroplasty changes. No focal osseous lesion is seen Impression: 1. Left adrenal adenoma 2. Splenomegaly Electronically signed by Roge Ortega 11-18-2024 4:43 PM
[2024-11-18] MEDS ORDERED: NON-FORMULARY MEDICATION (Flash Glucose Sensor [Freestyle Libre 2 Sensor] kit) SCH (17:00)
[2024-11-18] MEDS ORDERED: CLINDAMYCIN/D5W 900 MG/50 ML BAG IV SCH (17:00)
[2024-11-18 17:05] LABS: Alanine Aminotransferase 5.0 U/L (7-52); Albumin Globulin Ratio 0.6 (0.9-2); Alkaline Phosphatase 204.0 U/L (34-104); Anion Gap 7.0 (3-11); Bilirubin,Total 0.6 mg/dl (0.2-1.0); Blood Urea Nitrogen 44.0 mg/dl (6-23); Calcium 8.6 mg/dl (8.6-10.3); Carbon Dioxide 25.0 mmol/L (21-32); Chloride 102.0 mmol/L (98-107); Creatine Kinase 35.0 U/L (30-223); Creatinine Clr Calc Pharmacy 51.4 ml/min; Globulin 4.5 gm/dl (2.5-4.0); Glucose 267.0 mg/dl (70-99(Fasting)); Potassium 5.5 mmol/L (3.5-5.1); Sodium 134.0 mmol/L (136-145); Total Protein 7.3 gm/dl (6.0-8.3)
--- NOTE | 2024-11-18 17:24 | Orthopedic Progress Note ---
Date of Service November 18, 2024 Assessment & Plan Admission and Anticipated Discharge Date Admission Date: November 18, 2024 Orthopedic Progress Note Mr. Enrique Alvarado is a 68 yo male with PMH of insulin dependent diabetes, CKD, hx of cardiac arrest, CAD with LAD stenosis, pancreatitis related to mounjaro, history of open fracture dislocation of right ankle s/p TTC fusion 03/25/24 by myself. I was notified about a routine consult this afternoon regarding the patient's arrival to the emergency department by the hospitalist who initially admitted the patient. This notification occurred at 12:20 PM. At that point, I was in the midst of clinic and informed the team that I would see him at the end of the clinic today. Apparently, podiatry was also notified about the patient. I then received a call from podiatry looking for some clarification with regards to who would be seeing this patient. This call occurred at approximately 2 PM. At that time, I did open the patient's imaging and identified soft tissue gas concerning for necrotizing fasciitis. Immediately after noticing this, I quickly placed a call to the admitting hospitalist and informed the admitting hospitalist that necrotizing fasciitis represents a very complex surgical issue that requires a multidisciplinary care approach in order to ensure best possible patient outcomes. I recommended transfer to a tertiary care center. Reportedly, per the hospitalist, [facility] did not accept the patient in transfer, but shortly thereafter, [facility] did. I proceeded to the hospital once able and the patient had already left and route to [facility].
[2024-11-18] MEDS ORDERED: REMOVE LIDODERM PATCH SCH (21:00)
[2024-11-18] MEDS ORDERED: SACCHAROMYCES BOULARDII 250 MG CAP PO SCH (21:00)
[2024-11-18] MEDS ORDERED: TAMSULOSIN HCL 0.4 MG CAP PO SCH (21:00)
[2024-11-18] MEDS ORDERED: ATORVASTATIN 10 MG TAB PO SCH (21:00)
[2024-11-19] MEDS ORDERED: CEFEPIME 1000MG 1,000 MG/10 ML SYR IV SCH (02:00)
[2024-11-19] MEDS ORDERED: ASPIRIN 81 MG ECTAB PO SCH (09:00)
[2024-11-19] MEDS ORDERED: NON-FORMULARY MEDICATION (Flash Glucose Scanning Reader [Freestyle Libre 2 Reader] misc) SCH (09:00)
[2024-11-19] MEDS ORDERED: FUROSEMIDE 20 MG TAB PO SCH (09:00)
[2024-11-19] MEDS ORDERED: CHOLECALCIFEROL 25 MCG (1000 UNITS) TAB PO SCH (09:00)
[2024-11-19] MEDS ORDERED: GABAPENTIN 100 MG CAP PO SCH (09:00)
[2024-11-19] MEDS ORDERED: CYANOCOBALAMIN (B-12) 500 MCG TABLET PO SCH (09:00)
--- NOTE | 2024-11-19 11:06 | Electrocardiogram Report ---
Test Reason : Blood Pressure : */* mmHG Vent. Rate : 81 BPM Atrial Rate : 81 BPM P-R Int : 140 ms QRS Dur : 100 ms QT Int : 380 ms P-R-T Axes : 83 -8 74 degrees QTcB Int : 441 ms Poor data quality, interpretation may be adversely affected Normal sinus rhythm Poor R wave progression, consider anterior RI vs. lead placement vs. LVH Abnormal ECG When compared with ECG of 07-Jul-2024 15:23, Sinus rhythm has replaced Atrial flutter ST elevation now present in Inferior leads T wave amplitude has increased in Inferior leads T wave inversion less evident in Anterolateral leads Confirmed by Sebas Shin ([id number]) on 11/19/2024 11:06:30 AM Referred By: REFERRED SELF Confirmed By: Sebas Shin
== END 2024-11-18 16:45 | disposition short-term general hospital (02) | DRG 637 ==
LOC: ED 07:22 → EDINP 12:19